=== PATIENT | female | born 1955 | race Caucasian/White ===

== ENCOUNTER 2016-09-08 20:58 | Inpatient (IN) | payer BC ==
[2016-09-08] MEDS ORDERED: HYDROmorphone 1 MG/ML 1 ML SYRINGE IM STA (22:20)
--- NOTE | 2016-09-08 22:56 | XR ---
EXAMINATION TYPE: XR femur RT DATE OF EXAM: 09/08/2016 10:49 PM COMPARISON: NONE HISTORYPatient felt a pop while standing today TECHNIQUE: 6 views of right femur were obtained. FINDINGS: There is evidence of acute comminuted slightly displaced fracture of distal one third porti on of right tibia with medial angulation of distal fracture fragment and slight anterior displacement of distal fracture fragment. Surrounding soft tissue swelling is noted. IMPRESSION: Acute displaced comminuted fracture of distal one third shaft of the right femur.
--- NOTE | 2016-09-08 22:58 | XR ---
EXAMINATION TYPE: XR knee complete RT DATE OF EXAM: 09/08/2016 10:50 PM COMPARISON: NONE HISTORY: felt a "pop" while standing today. TECHNIQUE: 3 radiographs of right knee were obtained. FINDINGS: There is evidence of an acute slightly displaced comminuted fracture of distal one third sh aft of right femur. Right knee appears intact. Mild degenerative arthritic changes are present in the right kidney with a small osteophytes in the medial compartment. Soft tissues appear unremarkable. IMPRESSION: 1. Acute comminuted slightly displaced fracture of distal one third shaft of right femur. 2. No acute fracture is noted in the right knee.
--- NOTE | 2016-09-08 23:01 | XR ---
EXAMINATION TYPE: XR chest 1V DATE OF EXAM: 09/08/2016 10:50 PM COMPARISON: 04/19/2016 HISTORY: Preoperative, fracture femur. TECHNIQUE: Single frontal view of the chest is obtained. FINDINGS: Chronic lung changes are suggested with prominent bronchovascular markings. There is no focal air space opacity, pleural effusion, or pneumothorax seen. The cardiac silhouette size is within normal limits. The osseous structures are intact. IMPRESSION: 1. No acute cardiopulmonary disease. 2. Chronic lung changes. 3. No significant interval change.
[2016-09-08] MEDS ORDERED: HYDROmorphone 1 MG/ML 1 ML SYRINGE IVP STA (23:11)
--- NOTE | 2016-09-08 23:17 | ED ---
General Adult HPI - General Source: patient, family, RN notes reviewed Mode of arrival: wheelchair <Adryan Charlton - Last Filed: 09/08/16 23:20> <Esther Alvarez - Last Filed: 09/08/16 23:55> <Jw Patel - Last Filed: 09/09/16 00:45> - General Chief complaint: Extremity Problem,Nontraumatic Stated complaint: R Knee Injury - History of Present Illness Initial comments: Chief complaint history of present illness a 60-year-old female here with complaint of pain to her right knee and distal right femur. Patient reports that she was standing using her walker all of a sudden she got acute discomfort to her right knee area. She presents with significant swelling to the distal femur area. Patient did not fall because she was still using a walker. She reports she did nothing but just gently turn and then she developed the severe pain. (Adryan Charlton) - Related Data Home Medications Medication Instructions Recorded Confirmed Lisinopril 40 mg PO DAILY 01/22/15 08/31/16 Albuterol Inhaler [Ventolin Hfa 1 - 2 puff INHALATION RT-Q6H PRN 07/15/16 Inhaler] amLODIPine [Norvasc] 10 mg PO DAILY 07/15/16 08/31/16 Albuterol Nebulized [Ventolin 2.5 mg INHALATION RT-Q6H PRN 08/31/16 08/31/16 Nebulized] Atorvastatin [Lipitor] 20 mg PO HS 08/31/16 08/31/16 Gabapentin [Neurontin] 800 mg PO QID 08/31/16 08/31/16 Hydrocodone/Acetaminophen [[place] 1 tab PO Q6H PRN 08/31/16 08/31/16 5-325] Previous Rx's Medication Instructions Recorded HYDROcodone/APAP 5-325MG [[place] 1 tab PO Q6HR #7 tab 08/31/16 5-325] Allergies Allergy/AdvReac Type Severity Reaction Status Date / Time No Known Allergies Allergy Verified 09/08/16 21:12 Review of Systems ROS Other: All systems not noted in ROS Statement are negative. <Adryan Charlton - Last Filed: 09/08/16 23:20> ROS Other: All systems not noted in ROS Statement are negative. <Esther Alvarez - Last Filed: 09/08/16 23:55> ROS Other: All systems not noted in ROS Statement are negative. <Jw Patel - Last Filed: 09/09/16 00:45> ROS Statement: Those systems with pertinent positive or pertinent negative responses have been documented in the HPI. Review of systems no headache or visual acuity changes no chest pain or shortness of breath other than chronic obstructive pulmonary disorder. No abdominal pain no nausea no vomiting no neuro deficits. She has pain swelling right knee. Recently the patient was seen by an orthopedic surgeon who injected her right knee told her she had meniscus pain. She reports she was complaining of pain from her mid thigh down to her mid right calf area. Examination by the orthopod at that time revealed meniscus pathology , he administered a steroid shot yesterday in office. The patient still having pain in the knee. All systems are reviewed. Past medical problems hypertension, COPD and TIA. Surgeries include back fusion L5-S1. She also had an appendectomy, tonsillectomy cholecystectomy. The patient's family history significant other had prostate cancer mother had liver cancer. Patient denies any ALLERGIES. He does smoke strongly encouraged to stop. Denies alcohol use (Adryan Charlton) Past Medical History Past Medical History: COPD, CVA/TIA, GERD/Reflux, Hypertension, Osteoarthritis ( OA), Seizure Disorder Additional Past Medical History / Comment(s): bronchitis, pancreatitis, past anemia unknown cause, gastric ulcer, last seizure 1997, generalized arthritis History of Any Multi-Drug Resistant Organisms: None Reported Past Surgical History: Appendectomy, Back Surgery, Orthopedic Surgery, Tonsillectomy Additional Past Surgical History / Comment(s): 6 back surgeries with 2 fusions, R oophorectomy due to ectopic , EGD/colonoscopy, Past Anesthesia/Blood Transfusion Reactions: No Reported Reaction Additional Past Anesthesia/Blood Transfusion Reaction / Comment(s): Pt has received blood in past without reaction. Past Psychological History: No Psychological Hx Reported Additional Psychological History / Comment(s): Pt resides with her spouse. She is independent. Smoking Status: Current every day smoker Past Alcohol Use History: None Reported Additional Past Alcohol Use History / Comment(s): Pt states she started smoking at age 30 yrs and smokes between 1/2-1 PPD. Past Drug Use History: None Reported - Past Family History Father Family Medical History: Cancer, Liver Disease Additional Family Medical History / Comment(s): Father was an alcoholic. He in his 40's from liver cancer Mother Family Medical History: Cancer, CVA/TIA, Hypertension Additional Family Medical History / Comment(s): Mother had breast and colon cancer. She of liver cancer at the age of 77 yrs. <Adryan Charlton - Last Filed: 09/08/16 23:20> General Exam <Adryan Charlton - Last Filed: 09/08/16 23:20> <Esther Alvarez - Last Filed: 09/08/16 23:55> <Jw Patel - Last Filed: 09/09/16 00:45> - General Exam Comments Initial Comments: General: The patient is awake and alert, moderate distress because of pain and swelling to the distal right femur. Complains of pain to her knee. No pain in her hip. Vital signs vital signs show temperature 100.0. Pulse 96 respiratory rate 18 pressure 149/76. Pulse ox on percent room air. Eye: Pupils are equal, extra-ocular movements are intact; there is normal conjunctiva bilaterally. No signs of icterus. Ears, nose, mouth and throat: There are moist mucous membranes Neck: The neck is supple, there is no tenderness Cardiovascular: There is a regular rate and rhythm. No murmur, rub or gallop is appreciated. Respiratory: Lungs are clear to auscultation, respirations are non-labored, breath sounds are equal. No wheezes, stridor, rales, or rhonchi. Gastrointestinal: Soft, non-distended, non-tender abdomen without masses or organomegaly noted. There is no rebound or guarding present. No CVA tenderness. Bowel sounds are unremarkable. Back: There is no tenderness to palpation in the midline. There is no obvious deformity. Musculoskeletal: Patient has pain distal right femur. Neurovascular status of present intact. Knee tender because she just got a shot of steroids yesterday. Neurological: No evidence of a neuro deficits. Skin: Skin is warm and dry and no rashes or lesions are noted. (Adryan Charlton) Procedures - Orthopedic Splinting/Casting Injury #1 Side: right Lower Extremity Injury Location: upper leg Lower Extremity Immobilizer: posterior splint (long leg) <Esther Alvarez - Last Filed: 09/08/16 23:55> Medical Decision Making <Adryan Charlton - Last Filed: 09/08/16 23:20> <Esther Alvarez - Last Filed: 09/08/16 23:55> - Lab Data Result diagrams: 09/08/16 23:55 09/08/16 23:55 <Jw Patel - Last Filed: 09/09/16 00:45> - Medical Decision Making The patient will have a long leg cast applied from toes to her buttocks. Her sweat pants were cut up the inside seam. Patient will have a long leg OCL splint applied once her pain medication has become effective.. (Adryan Charlton) I spoke with Dr. Leyva and he wanted the patient admitted to his service if it was not a pathologic fracture and according to the CAT scan it does not appear to be a pathologic fracture of the femur. (Jw Patel) - Lab Data Lab Results 09/08/16 09/08/16 Range/Units 23:55 23:55 WBC 13.9 H (3.8-10.6) k/uL RBC 5.05 (3.80-5.40) m/uL Hgb 14.3 (11.4-16.0) gm/dL Hct 46.6 H (34.0-46.0) % MCV 92.4 (80.0-100.0) fL MCH 28.3 (25.0-35.0) pg MCHC 30.7 L (31.0-37.0) g/dL RDW 13.1 (11.5-15.5) % Plt Count 419 (150-450) k/uL Neutrophils % 83 % Lymphocytes % 10 % Monocytes % 5 % Eosinophils % 1 % Basophils % 0 % Neutrophils # 11.5 H (1.3-7.7) k/uL Lymphocytes # 1.5 (1.0-4.8) k/uL Monocytes # 0.7 (0-1.0) k/uL Eosinophils # 0.1 (0-0.7) k/uL Basophils # 0.0 (0-0.2) k/uL Sodium 140 (137-145) mmol/L Potassium 4.6 (3.5-5.1) mmol/L Chloride 108 H (98-107) mmol/L Carbon Dioxide 17 L (22-30) mmol/L Anion Gap 15 mmol/L BUN 30 H (7-17) mg/dL Creatinine 1.20 H (0.52-1.04) mg/dL Est GFR (MDRD) Af Amer 56 (>60 ml/min/1.73 sqM) Est GFR (MDRD) Non-Af 46 (>60 ml/min/1.73 sqM) Glucose 118 H (74-99) mg/dL Calcium 10.3 H (8.4-10.2) mg/dL Total Bilirubin 0.4 (0.2-1.3) mg/dL AST 18 (14-36) U/L ALT 32 (9-52) U/L Alkaline Phosphatase 94 (38-126) U/L Total Protein 7.9 (6.3-8.2) g/dL Albumin 4.7 (3.5-5.0) g/dL Disposition <Adryan Charlton - Last Filed: 09/08/16 23:20> <Esther Alvarez - Last Filed: 09/08/16 23:55> Time of Disposition: 00:45 <Jw Patel - Last Filed: 09/09/16 00:45> Clinical Impression: Femoral shaft fracture Disposition: ADMITTED IP TO THIS HOSP
[2016-09-08] MEDS: SODIUM CHLORIDE 0.9% 1,000 ML IV SCH (23:33)
[2016-09-09 00:11] LABS: Basophils % (A) 0 %; CH 29.8; CHCM 32.5; Eosinophils # (A) 0.1 k/uL (0-0.7); Eosinophils % (A) 1 %; HCT 46.6 % (34.0-46.0); HDW 2.45; HGB 14.3 gm/dL (11.4-16.0); Luc # (Auto) 0.13; Luc % (Auto) 1; Lymphocytes # (A) 1.5 k/uL (1.0-4.8); Lymphocytes % (A) 10 %; MCH 28.3 pg (25.0-35.0); MCHC 30.7 g/dL (31.0-37.0); MCV 92.4 fL (80.0-100.0); Mean Platelet Volume 7.4; Monocytes # (A) 0.7 k/uL (0-1.0); Monocytes % (A) 5 %; Neutrophils # (A) 11.5 k/uL (1.3-7.7); Neutrophils % (A) 83 %; RBC 5.05 m/uL (3.80-5.40); RDW 13.1 % (11.5-15.5); WBC 13.9 k/uL (3.8-10.6)
[2016-09-09 00:34] LABS: Calcium 10.3 mg/dL (8.4-10.2); Potassium 4.6 mmol/L (3.5-5.1); Total Bilirubin 0.4 mg/dL (0.2-1.3); Total Protein 7.9 g/dL (6.3-8.2)
--- NOTE | 2016-09-09 00:39 | CT ---
EXAMINATION TYPE: CT femur RT wo con DATE OF EXAM: 09/09/2016 12:23 AM COMPARISON: Right femur x-rays of 09/08/2016. HISTORY: evaluate known right femur fx CT DLP: 811.40 mGycm Automated exposure control for dose reduction was used. FINDINGS: There is evidence of a comminuted slightly displaced fracture of distal one third portion of right fe mur with mild medial displacement of distal fracture fragment and mild posterior angulation of distal fracture fragment. The fracture site showed multiple small fracture fragments with somewhat haziness and there is possib ility of mild callus formation in this area and this fracture could also be related to few days old f racture. No significant osteolytic or osteoblastic processes noted in this area to represent metastat ic pathological fracture. This fracture does not appear as a insufficiency or stress fracture. There is most likely normal cortical bone thickening for patient's age in this area. The surrounding soft tissues showed post traumatic changes in the muscular tissues without significan t hematoma collection. Subcutaneous edema is suggested surrounding the fracture site. Rest of the visualized right femur and visualized proximal tibia and fibula appear intact. Visualized right hip joint showed irregularity in the anterior lip of the acetabulum as seen in the a xial image 25 and is probably related to old fracture changes or ossicle. Mild degenerative osteophyt ic changes are noted in the right hip joint. Visualized right sacroiliac joints showed mild degenerative arthritic changes. Superior and inferior primary of right pubic bone and right ischium appears intact. IMPRESSION: 1. EVIDENCE OF COMMINUTED SLIGHTLY DISPLACED FRACTURE OF DISTAL RIGHT FEMUR. THIS FRACTURE COULD BE F EW DAYS OLD FRACTURE WITH POSSIBLE SMALL AMOUNT OF CALLUS FORMATION. SMALL FRACTURE FRAGMENTS ARE NOT ED AT THE FRACTURE SITE. IT IS LESS LIKELY TO REPRESENT PATHOLOGICAL FRACTURE OR STRESS OR INSUFFICIE NCY FRACTURE. A CLINICAL CORRELATION IS RECOMMENDED..
[2016-09-09] MEDS ORDERED: SODIUM CHLORIDE 0.9% 1,000 ML IV ONE (00:45)
[2016-09-09] MEDS ORDERED: ONDANSETRON 4 MG/2 ML VIAL IVP PRN ×2 (00:47→14:26)
[2016-09-09] MEDS ORDERED: HYDROmorphone 1 MG/ML 1 ML SYRINGE IVP PRN (00:47)
[2016-09-09 02:29] VITALS: BMI 23.5
[2016-09-09] MEDS: HYDROmorphone 2 MG/ML 1 ML SYRINGE IVP PRN ×7 (04:12→22:01)
[2016-09-09] MEDS: SODIUM CHLORIDE 0.9% 1,000 ML IV SCH (04:18)
--- NOTE | 2016-09-09 07:51 | P.HPOR ---
<Jocelin Garcia - Last Filed: 09/09/16 07:51> History of Present Illness H&P Date: 09/09/16 Chief Complaint: Right femur fracture This is a pleasant 6-year-old female who is admitted with right femur fracture. The patient states that she was using her walker yesterday and went to pivot on her right leg and felt and heard a pop in her right upper leg. She caught herself on her walker. She had severe pain in her right thigh and presented to the emergency department [facility]. She is found to have fracture of her distal femur and subsequently was admitted to our service for surgical intervention and care. The patient was seen and evaluated at bedside this morning. She complains of pain at the area for fracture. She complains of some radiating pain down the leg as well. She states that she typically walks without a walker. However, she had a fall a couple months ago on the ice and was having some knee pain since that time. She has since been using a cane or a walker for the last [address] Berger on and did have a cortisone injection in the knee at that time. She currently denies any nausea, vomiting, shortness of breath, chest pain, abdominal pain. She denies syncope or head trauma. She states that she does have history of stroke but denies any residual weakness. She is not currently on any blood thinners. She is not diabetic. She does smoke. Review of Systems See HPI Past Medical History Past Medical History: COPD, CVA/TIA, GERD/Reflux, Hypertension, Osteoarthritis ( OA) Additional Past Medical History / Comment(s): bronchitis, pancreatitis, past anemia unknown cause, gastric ulcer, generalized arthritis,patient denies ever having a seizure History of Any Multi-Drug Resistant Organisms: None Reported Past Surgical History: Appendectomy, Back Surgery, Orthopedic Surgery, Tonsillectomy Additional Past Surgical History / Comment(s): 6 back surgeries with 2 fusions, Right oophorectomy due to ectopic , EGD/colonoscopy, Past Anesthesia/Blood Transfusion Reactions: No Reported Reaction Additional Past Anesthesia/Blood Transfusion Reaction / Comment(s): Pt has received blood in past without reaction. Past Psychological History: No Psychological Hx Reported Additional Psychological History / Comment(s): Pt resides with her spouse. She is independent. Smoking Status: Current every day smoker Past Alcohol Use History: None Reported Additional Past Alcohol Use History / Comment(s): smokes 5-6 cigarettes per day Past Drug Use History: None Reported - Past Family History Father Family Medical History: Cancer, Liver Disease Additional Family Medical History / Comment(s): from liver cancer Mother Family Medical History: Cancer, CVA/TIA, Hypertension Additional Family Medical History / Comment(s): Mother had breast and colon cancer. She of liver cancer at the age of 77 yrs. Medications and Allergies Home Medications Medication Instructions Recorded Confirmed Type Lisinopril 40 mg PO DAILY 01/22/15 08/31/16 History Albuterol Inhaler [Ventolin Hfa 1 - 2 puff INHALATION RT-Q6H PRN 07/15/16 History Inhaler] amLODIPine [Norvasc] 10 mg PO DAILY 07/15/16 08/31/16 History Albuterol Nebulized [Ventolin 2.5 mg INHALATION RT-Q6H PRN 08/31/16 08/31/16 History Nebulized] Atorvastatin [Lipitor] 20 mg PO HS 08/31/16 08/31/16 History Gabapentin [Neurontin] 800 mg PO QID 08/31/16 08/31/16 History Hydrocodone/Acetaminophen [[place] 7.5 tab PO Q6H PRN 08/31/16 08/31/16 History 5-325] Allergies Allergy/AdvReac Type Severity Reaction Status Date / Time No Known Allergies Allergy Verified 09/08/16 21:12 Physical Examination The patient is seen and evaluated at bedside. She is not appear in acute distress. She is alert and orientated 3. She is pleasant and answers questions appropriately. Head normocephalic atraumatic Neck is supple Breathing appears nonlabored She moves her upper extremities freely without any difficulty or pain Upon examination of her lower extremities long posterior splint is intact her right lower extremity. She has pain to palpation about her distal thigh and knee. Compartments are soft. Her toes are pink and warm. Capillary refill is brisk. Sensation is intact to her toes. Dorsalis P his pulse 2+ out of 4+. She denies any pain to palpation about her left lower extremity. She moves her left lower extremity freely without any difficulty or pain. Results X-rays obtained of the patient's right femur reveal acute comminuted displaced fracture the distal one third portion of the right femur. Right femur CT was obtained as well revealing evidence of comminuted slightly displaced fracture of the distal right femur. Radiologist impression rates his fracture could be a few days old with possible small amount of callus formation. Small fracture fragments are noted at the fracture site. It's less likely to represent pathologic fracture or stress or insufficiency fracture. Clinical correlation is recommended. - Labs Result Diagrams: 09/08/16 23:55 09/08/16 23:55 Assessment and Plan (1) Femoral shaft fracture Status: Acute Plan: I discussed the clinical and x-ray findings with the patient at bedside today. I discussed nonoperative versus operative treatment. Orthopedics recommends surgical intervention. I discussed possible risks and complications associated with the surgery. <Landry Leyva - Last Filed: 09/09/16 08:18> Results - Labs Result Diagrams: 09/08/16 23:55 09/08/16 23:55 Assessment and Plan Plan: I agree with the above history and physical. Briefly, the patient is a 60-year- old female with a medical history significant for smoking up to 1 pack of cigarettes a day, COPD, stroke, and recent falls. The patient states that 2 months ago she slipped and fell and has had worsening knee, thigh, and leg pain ever since. She has seen another orthopedic surgeon in [place] recently injected her right knee. Due to the pain the patient has been using a walker to ambulate. Yesterday she pivoted while in the kitchen and felt a snap in her right thigh. She was unable to walk. She was brought to the emergency department here at [facility] and x-rays showed a distal third femur fracture. She was admitted to the floor. This morning she is complaining of isolated right thigh pain. She denies a history of cancer. She says she is currently smoking 6-7 cigarettes a day. On exam her right thigh is soft and compressible. There are no open wounds. She does not have an appreciable knee effusion. Distally her right foot is neurovascularly intact. X-rays show a displaced distal third femur fracture. Both x-rays and computed tomography scan do not show any type of pathologic lesion suggestive of primary or metastatic cancer. I do lengthy discussion with Mrs. Jenkins regarding treatment. We discussed that her history and x-ray findings are suggestive of a prior incomplete stress fracture that she completed yesterday. We also discussed the possibility of this being a pathologic fracture through a malignant lesion although I do not see any signs of this on x-ray or CT. Due to the fracture being in the distal third of the femur my recommendation was to perform a retrograde femoral nail. We had a lengthy discussion on treatment and potential complications. Potential complications discussed include risk of anesthesia, risk of delayed wound healing, risk of infection, risk of intraoperative fracture, risk of postoperative knee pain, risk of symptomatically hardware, risk of fracture malunion, risk of fracture nonunion, risk of malrotation of the leg, risk of difficulty walking, risk of inability to walk, risk of need for further surgery , risk of postoperative periprosthetic fracture, and possible postoperative medical problems including DVT, PE, acute coronary event, stroke, pneumonia, urinary tract and infection, anemia requiring transfusion, and possibly . The patient understands these risks and understands that there are other less common risks. She also understands that she is a slightly higher risk of having a complication due to her history of smoking. She would like to go forward with surgery and provided both her verbal and written consent. All of her questions were answered.
[2016-09-09 09:21] LABS: Partial Thromboplastin Time 23.9 sec (22.0-30.0); Prothrombin Time 10.2 sec (9.0-12.0)
--- NOTE | 2016-09-09 11:55 | P.CONS ---
History of Present Illness - Reason for Consult Consult date: 09/09/16 Medical clearance Requesting physician: Landry Leyva - Chief Complaint Right thigh pain - History of Present Illness This is a 60-year-old female with past medical history noted below who presented to the emergency room yesterday with severe right lower extremity pain. Patient said that she was at home using her walker and she twisted trying to grab something and all of a sudden she heard a loud pop and subsequently she was in severe pain in her right lower extremity. She was unable to stand up. She called her who brought her to the emergency room. Apparently, patient had a fall approximately 3 weeks ago after she slid on ice and was having right knee pain at that time She was evaluated in the emergency room and x-ray of the knee showed no acute fractures. Since then, patient is been using a walker to ambulate but her pain was tolerable up until yesterday. She presented to the emergency room yesterday and was found to have a slightly displaced fracture of the distal femoral and is currently scheduled for OR. Patient herself denies any cardiac history. No history of coronary artery disease or myocardial infarction. She has a history of hypertension. She is not known to have diabetes or chronic kidney disease. She is able usually to walk around and climb 1 flight of stairs with no difficulty. She denies any shortness of breath or chest pain today. I was asked to see her for medical clearance. Review of Systems Review of system: 14 points review of systems were obtained and were negative except to what were mentioned in the HPI. Past Medical History Past Medical History: COPD, CVA/TIA, GERD/Reflux, Hypertension, Osteoarthritis ( OA) Additional Past Medical History / Comment(s): bronchitis, pancreatitis, past anemia unknown cause, gastric ulcer, generalized arthritis,patient denies ever having a seizure History of Any Multi-Drug Resistant Organisms: None Reported Past Surgical History: Appendectomy, Back Surgery, Orthopedic Surgery, Tonsillectomy Additional Past Surgical History / Comment(s): 6 back surgeries with 2 fusions, Right oophorectomy due to ectopic , EGD/colonoscopy, Past Anesthesia/Blood Transfusion Reactions: No Reported Reaction Additional Past Anesthesia/Blood Transfusion Reaction / Comm: Pt has received blood in past without reaction. Past Psychological History: No Psychological Hx Reported Additional Psychological History / Comment(s): Pt resides with her spouse. She is independent. Smoking Status: Current every day smoker Past Alcohol Use History: None Reported Additional Past Alcohol Use History / Comment(s): smokes 5-6 cigarettes per day Past Drug Use History: None Reported - Past Family History Father Family Medical History: Cancer, Liver Disease Additional Family Medical History / Comment(s): from liver cancer Mother Family Medical History: Cancer, CVA/TIA, Hypertension Additional Family Medical History / Comment(s): Mother had breast and colon cancer. She of liver cancer at the age of 77 yrs. Medications and Allergies Home Medications Medication Instructions Recorded Confirmed Type Lisinopril 40 mg PO DAILY 01/22/15 09/09/16 History Albuterol Inhaler [Ventolin Hfa 1 - 2 puff INHALATION RT-Q6H PRN 07/15/16 History Inhaler] amLODIPine [Norvasc] 10 mg PO DAILY 07/15/16 09/09/16 History Albuterol Nebulized [Ventolin 2.5 mg INHALATION RT-Q6H PRN 08/31/16 09/09/16 History Nebulized] Atorvastatin [Lipitor] 20 mg PO HS 08/31/16 09/09/16 History Gabapentin [Neurontin] 800 mg PO QID 08/31/16 09/09/16 History Aspirin 325 - 650 mg PO QID PRN 09/09/16 09/09/16 History Ibuprofen [Motrin] 800 mg PO Q8H PRN 09/09/16 09/09/16 History Allergies Allergy/AdvReac Type Severity Reaction Status Date / Time No Known Allergies Allergy Verified 09/09/16 10:59 Physical Exam Vitals: Vital Signs Temp Pulse Pulse Resp BP BP Pulse Ox 09/09/16 07:53 98.6 F 71 16 147/78 09/09/16 07:00 98.6 F 71 16 147/78 96 09/09/16 04:00 16 09/09/16 02:47 98.7 F 76 16 152/69 97 09/09/16 02:36 18 09/09/16 00:51 97.7 F 74 18 156/68 98 Intake and Output 09/08/16 09/09/16 09/09/16 22:59 06:59 14:59 Intake Total 300 Balance 300 Intake: IV 300 Sodium Chloride 0.9% 1, 300 000 ml @ 75 mls/hr IV . [id number] ONE Rx#:[id number] Other: Voiding Method Indwelling Catheter # Voids 1 Weight 68.039 kg General: The patient is awake and alert, in no distress, and does not appear acutely ill. Eye: extra-ocular movements are intact; there is normal conjunctiva bilaterally. . Neck: The neck is supple, there is no tenderness or JVD. Cardiovascular: Normal S1-S2, no S3-S4, no murmurs. Respiratory: Lungs clear to auscultation bilaterally with no wheezes rhonchi or rales. Gastrointestinal: Abdomen is soft, nontender, nondistended, with no organomegaly. . Musculoskeletal: There is no pedal edema. Neurological: There are no obvious motor or sensory deficits. Speech is normal. Skin: Skin is warm and dry and no rashes or lesions are noted. Results CBC & Chem 7: 09/08/16 23:55 09/08/16 23:55 Assessment and Plan Plan: This is 60-year-old female with a slightly displaced fracture of the distal right femoral who is scheduled for OR today. Patient is cleared for surgery medically. She is at an acceptable risk with low RCRI score. Twelve-lead EKG done today and reviewed by me showed normal sinus rhythm. 1. Fragility fracture with slightly displaced fracture of the right femur: Seen and evaluated by orthopedics. Plan for surgical repair today 2. DVT prophylaxis: with subcu heparin 3. Leukocytosis: Probably reactive with no evidence of infection. I would obtain a urinalysis for further evaluation. 4. 4. Essential hypertension: Blood pressure not well controlled today. We will resume home medication 5. Highly suspected osteoporosis: Needs further evaluation and possibly treatment as an outpatient I advised the patient to start calcium and vitamin D supplement. Follow up with primary care physician after recovery for further evaluation of underlying osteoporosis.
[2016-09-09] MEDS ORDERED: ALBUTEROL NEBULIZED 2.5 MG/3 ML INHALATION PRN (11:56)
[2016-09-09] MEDS ORDERED: HYDROmorphone (PF) 1 MG/ML ONE (12:22)
[2016-09-09] MEDS ORDERED: SODIUM CHLORIDE 0.9% 50 ML with ceFAZolin 2,000 MG IV ONE ×2 (12:22)
[2016-09-09] MEDS ORDERED: IV FLUID CONTINUATION 950 ML IV ONE (12:22)
[2016-09-09] MEDS ORDERED: fentaNYL (PF) 50 MCG/ML 2 ML AMP ONE (12:22)
[2016-09-09] MEDS ORDERED: GLYCOPYRROLATE 0.2 MG/ML 2 ML VIAL ONE (12:22)
[2016-09-09] MEDS ORDERED: LIDOCAINE 1% INJ 10MG/ML (20 ML MDV) ONE (12:22)
[2016-09-09] MEDS ORDERED: MIDAZOLAM 2 MG/2 ML VIAL ONE (12:22)
[2016-09-09] MEDS ORDERED: SUCCINYLCHOLINE CHLORIDE 100 MG/5 ML SYR IV ONE (12:22)
[2016-09-09] MEDS ORDERED: PROPOFOL 10 MG/ML 20 ML VIAL IV ONE (12:22)
[2016-09-09] MEDS ORDERED: SODIUM CHLORIDE 0.9% 1,000 ML BAG ONE (12:22)
[2016-09-09] MEDS ORDERED: ONDANSETRON 4 MG/2 ML VIAL ONE (12:22)
[2016-09-09] MEDS ORDERED: ceFAZolin 1,000 MG VIAL ONE (12:22)
[2016-09-09] MEDS ORDERED: ceFAZolin 1,000 MG/50 ML BAG (PMX) ONE (12:22)
[2016-09-09] MEDS ORDERED: ROCURONIUM BROMIDE 10 MG/ML 10 ML VIAL IV ONE (12:22)
[2016-09-09] MEDS ORDERED: NEOSTIGMINE 1 MG/ML 10 ML VIAL ONE (12:22)
[2016-09-09] MEDS ORDERED: SODIUM CHLORIDE 0.9% 50 ML BAG ONE (12:22)
[2016-09-09] MEDS ORDERED: ceFAZolin 1,000 MG in SODIUM CHLORIDE 0.9% 1,000 ML IRRIGATION ONE (13:08)
[2016-09-09] MEDS ORDERED: HYDROmorphone 1 MG/ML 1 ML SYRINGE IVP ONE ×3 (14:10→14:40)
--- NOTE | 2016-09-09 14:17 | FL ---
EXAMINATION TYPE: FL guidance operating room, XR femur RT DATE OF EXAM: 09/09/2016 2:05 PM CLINICAL HISTORY: Right femur fracture. TECHNIQUE: Fluoroscopy. Intraoperative limited views right femur. COMPARISON: Right femur x-ray from yesterday FINDINGS: Fluoroscopic guidance was provided during open reduction internal fixation procedure perfo rmed by Dr. Leyva. A total of 3 minutes 11 seconds of fluoroscopic time was utilized during the p rocedure and 10 spot intraoperative images are acquired or saved to PACS system. Images acquired show intramedullary access with placement of large alice with single transverse proxima l fixating screw and 2 distal transverse fixating screws through comminuted fracture distal diaphysi s of right femur. IMPRESSION: As Above.
[2016-09-09] MEDS ORDERED: MEPERIDINE 50 MG/ML SYRINGE IVP ONE ×2 (14:25→14:30)
[2016-09-09] MEDS ORDERED: MAGNESIUM HYDROXIDE 2,400 MG/10 ML CUP PO PRN (14:26)
[2016-09-09] MEDS ORDERED: NALOXONE 0.4 MG/ML 1 ML VIAL IV PRN (14:26)
--- NOTE | 2016-09-09 14:26 | P.OP ---
Date of Procedure: 09/09/16 Preoperative Diagnosis: 1. Closed, right distal third femur fracture 2. Cigarette smoking 3. COPD Postoperative Diagnosis: 1. Closed, right distal third femur fracture 2. Cigarette smoking 3. COPD Procedure(s) Performed: Right retrograde intramedullary femoral nail Implants: Synthes retrograde femoral nail Anesthesia: ANNE Surgeon: Landry Leyva Estimated Blood Loss (ml): 50 IV fluids (ml): 800 Urine output (ml): 100 Pathology: other (Reamings sent for pathology) Condition: stable Disposition: PACU Indications for Procedure: The patient is a 60-year-old female with a medical history significant for cigarette smoking up to 1 pack a day in the past currently smoking 7 cigarettes a day and COPD who is admitted with a closed right distal femur fracture. 2 months ago the patient sustained a low-energy fall and has had intermittent and progressively worsening right thigh, knee, and leg pain. It got to the point he was only able to ambulate with a walker. She has been seeing an orthopedic surgeon in [place] and was most recently seen this past at which point she had a right intra-articular knee injection. Yesterday the patient was in her kitchen when she pivoted and felt a snap in her right leg. She was unable to walk and was brought to the emergency department where x-rays showed a displaced distal third femur fracture. In addition to x-rays a computed tomography scan was obtained to rule out a pathologic fracture. The x- rays and computed tomography scan did not show any evidence of tumor. I saw the patient preoperatively and discussed treatment. My recommendation was to perform a retrograde femoral nail due to the fracture being in the distal third of the diaphysis. We discussed the potential risks and complications of surgery including but not limited to risk of anesthesia, risk of superficial infection, risk of deep infection, risk of damage to local blood vessels or nerves, risk of fracture nonunion, risk of fracture malunion, risk of malrotation of the leg, risk of DVT is disturbing's, risk of intraoperative fracture, risk of postoperative periprosthetic fracture, risk of anterior knee pain, risk of septic arthritis, risk of compartment syndrome, risk of damage to local nerves resulting in temporary or permanent numbness, risk of damage to blood vessels, risk of medical conditions postoperatively including DVT, PE, acute coronary event, stroke, pneumonia, urinary tract infection, blood loss anemia requiring transfusion, acute renal failure, exacerbation of COPD and possibly loss of limb or life. The patient understands that these are the most common complications following surgery but there are other less common complications possible. She also understands that due to her history of cigarette smoking she is at a higher risk of having a wound infection or nonunion of her fracture site. She provided both verbal and written consent to go forward with surgery Description of Procedure: The patient was identified in preoperative holding and the correct right leg was marked with my initials. I reviewed the consent form with the patient and answered all of her questions. She was then brought back to the operating room by anesthesia. A general anesthetic was administered while she was still on the gurney and then she was carefully transferred onto a radiolucent diving board type OR table. Preoperative antibiotics were administered. The left leg was secured to the OR table with foam and tape. A bump was placed under her right buttock internally rotating the right leg. The right arm was carefully draped across the body. The right leg was then prepped and draped in the standard sterile fashion from the iliac crest to the ankle. Prior to starting surgery timeout was performed identifying the correct patient, operative extremity, and procedure. I began by outlining a longitudinal incision centered over the distal patella and patellar tendon. Skin incision was made with a 10 blade scalpel and dissection was carried down carefully to the peritenon which was identified and incised longitudinally in line with the skin incision. The patellar tendon was then split sharply with a scalpel through the middle third. A small amount of the retropatellar fat pad was excised. Due to the patient having had a recent steroid injection the knee was copiously irrigated. A guidewire was then used to obtain a start site on the distal femur. On the AP view the guidewire was centered between the femoral condyles and was in line with the distal femur fragment. On the lateral view the wire was placed at the apex of Blumeensat's line and centered with the shaft of the femur. The wire was then driven into the distal fragment and its position was once again verified using fluoroscopy in both the AP and lateral planes. Using a soft tissue protector a cannulated opening reamer was used to create an opening in the distal femur for the nail. The tissue protector was used to prevent inadvertent damage to the patellofemoral joint. The opening reamer, soft tissue protector, and guidewire were removed. A long ball-tipped guidewire was then dispensed and the tip was bent to help facilitate passage past the fracture. Using a T-handled merna the ball-tipped guidewire was advanced up to the fracture. Using a mallet the fracture was reduced and the guidewire was passed proximally into the proximal shaft. The ball-tipped guidewire was passed proximally until it was proximal to the lesser trochanter. C-arm verified that the ball-tipped guidewire was in the femur on all views. We then measured the nail to 380 mm in length. We then began sequentially reaming starting with an 8 mm reamer. We sequentially reamed in 1 mm increments until the 11 mm reamer developed chatter at the isthmus. We then continued to ream and 0.5 mm increments up to a 12.5 mm reamer. After the 12.5 mm reamer was removed the reamings were sent to pathology. I elected to use an 11 mm nail. A 380 millimeter length and 11 mm diameter nail was then dispensed. The targeting arm was applied and I verified that the trochars lined up with the distal interlocking screws. The nail was then carefully inserted over the guidewire. C-arm was brought to the level of the fracture site and the nail was gently passed across the fracture and seated proximally. After the nail was fully seated the fracture appeared to be nicely reduced. The ball-tipped K wire was then removed and 2 distal interlocking screws were placed using the targeting arm. There is a small amount of distraction at the fracture site so the nail was impacted distally closing down the distraction at the fracture site. After the fracture site was impacted I assessed rotation of the limb. There did not appear to be any major malrotation of the right leg. The patella and foot pointed straight up toward the ceiling. C-arm was then brought proximally to place a proximal interlocking screw. The proximal aspect of the oblong hole was identified and a longitudinal incision was made in the skin. A hemostat was used to gently dissect down to the anterior cortex of the proximal femur. A drill bit was centered in the proximal aspect of the oblong hole and drilled bicortically. I measured the hole to be 32 mm. A 32 mm screw was then placed E centrically to the proximal aspect of the hole to allow compression at the fracture site. C- arm fluoroscopy was then used to assess position of the nail and fracture reduction. The fracture appeared to be reduced and well compressed. I did not notice any fractures proximally and the femoral neck. The targeting arm was then disassembled distally and a true lateral x-ray was taken showing the nail to be proximal to the joint surface. The knee joint itself was then copiously irrigated with sterile saline. The patellar tendon was closed with a running 0 Vicryl stitch. The subcutaneous tissues reapproximating using 2-0 Vicryl and the skin was closed using 3-0 nylon horizontal mattress stitches. The 2 stab incisions from the interlocking screw were irrigated and closed with 3-0 nylon horizontal mattress stitches. The proximal interlocking incision was irrigated and then closed in a layered fashion with 2-0 Vicryl in the deep subcu and 3-0 nylon horizontal mattress stitches in the skin. After all incisions were closer verified that all instrument sponge and sharp counts were correct. The leg was then cleansed and sterile dressings consisting of Adaptic 4 x 4 and medium Tegaderms were applied. The drapes were taken down and an Jonathan wrap was applied from the foot up to the hip. The patient was then transferred from the operating room table to the [facility] and brought to PACU having tolerated the procedure well. Plan: The patient is to be toe-touch weightbearing on her right side. She can begin gentle range of motion of her knee. She will need 24 hours of postoperative antibiotics. She'll be treated with Lovenox 40 mg daily for 4 weeks for DVT prophylaxis. We'll follow pathology of the reamings sent intraoperatively. Appreciate internal medicine's assistance with perioperative medical management. We'll check 25-hydroxy vitamin D level and start her on calcium and vitamin D.
[2016-09-09] MEDS: LACTATED RINGERS 1,000 ML IV ONE ×2 (14:36→14:52)
[2016-09-09] MEDS ORDERED: HYDROmorphone 2 MG/ML 1 ML SYRINGE IVP ONE (14:51)
--- NOTE | 2016-09-09 14:58 | XR ---
EXAMINATION TYPE: XR Femur RT 1 View DATE OF EXAM: 09/09/2016 2:51 PM CLINICAL HISTORY: Right femur fracture, status post open reduction internal fixation TECHNIQUE: Portable 2 frontal views of the right femur are obtained. COMPARISON: Right femur x-ray from yesterday FINDINGS: There is new large intramedullary alice with 2 transverse distal fixating screws through com minuted fractures distal diaphysis of right femur. Improved alignment is seen on these images with sl ight medial displacement of distal fracture fragment identified. Adjacent subcutaneous gas consistent with history of recent surgery is identified. Deering osseous structures are demineralized. IMPRESSION: There is improved alignment after open reduction internal fixation through comminuted fr acture distal diaphysis right femur.
[2016-09-09 15:56] LABS: Basophils % (A) 0 %; CH 29.9; Eosinophils # (A) 0.1 k/uL (0-0.7); Eosinophils % (A) 0 %; HCT 40.8 % (34.0-46.0); HDW 2.41; HGB 12.6 gm/dL (11.4-16.0); Luc # (Auto) 0.12; Luc % (Auto) 1; Lymphocytes % (A) 6 %; MCHC 30.9 g/dL (31.0-37.0); MCV 93.9 fL (80.0-100.0); Mean Platelet Volume 7.3; Monocytes % (A) 6 %; Neutrophils # (A) 14.5 k/uL (1.3-7.7); Neutrophils % (A) 87 %; RBC 4.35 m/uL (3.80-5.40); RDW 12.9 % (11.5-15.5); WBC 16.7 k/uL (3.8-10.6); WBC (Perox) 17.77
[2016-09-09] MEDS: HYDROcodone/APAP 5-325MG 1 EACH TAB PO PRN (16:17)
[2016-09-09] MEDS: DIAZEPAM 5 MG TAB PO PRN (16:17)
[2016-09-09] MEDS: amLODIPine 10 MG TAB PO SCH (16:17)
[2016-09-09] MEDS: CHOLECALCIFEROL 1,000 UNIT TAB PO SCH (16:18)
[2016-09-09] MEDS: GABAPENTIN 400 MG CAP PO SCH ×3 (16:18→22:20)
[2016-09-09] MEDS: CALCIUM CARBONATE 500 MG CHEWABLE PO SCH ×2 (16:47→22:20)
[2016-09-09] MEDS: ceFAZolin 2 GM in SODIUM CHLORIDE 0.9% 100 ML IVPB SCH (16:47)
[2016-09-09] MEDS: CALCIUM ACETATE 667 MG CAP PO SCH (16:47)
--- NOTE | 2016-09-09 17:16 | P.PN ---
Subjective Patient is doing well. She has moderate discomfort mostly in her right knee at the site of her surgery. Her pain is currently controlled. She denies chest pain or shortness of breath. Objective - Vital Signs Vital signs: Vital Signs Temp 97.8 F 09/09/16 14:05 Pulse 68 09/09/16 15:10 Resp 16 09/09/16 15:10 BP 159/73 09/09/16 15:10 Pulse Ox 99 09/09/16 15:10 Intake & Output 09/08/16 09/09/16 09/09/16 18:59 06:59 18:59 Intake Total 300 1050 Output Total 600 Balance 300 450 Weight 68.039 kg Intake: IV 300 1050 Sodium Chloride 0.9% 1, 300 000 ml @ 75 mls/hr IV . [id number] ONE Rx#:[id number] Output: Urine 550 Estimated Blood Loss 50 Other: Voiding Method Indwelling Catheter # Voids 1 - Exam The patient is in no apparent distress and is alert and oriented. Right lower extremity: Dressing is clean and dry with no saturated blood. Her thigh is soft. She hasn't icepack over the anterior aspect of the knee and is moderately tender over the anterior knee. Her calf is soft. Her foot is warm and well-perfused brisk capillary refill. Sensation is intact to light touch throughout the right foot. She can actively plantarflex and dorsiflex her toes. - Labs CBC & Chem 7: 09/09/16 15:40 09/08/16 23:55 Labs: Abnormal Lab Results - Last 24 Hours (Table) 09/09/16 Range/Units 15:40 WBC 16.7 H (3.8-10.6) k/uL MCHC 30.9 L (31.0-37.0) g/dL Neutrophils # 14.5 H (1.3-7.7) k/uL Assessment and Plan (1) Femoral shaft fracture Status: Acute Plan: Postoperative check status post right retrograde femoral nail for distal third femur fracture. 1. Toe-touch weightbearing right lower extremity. Can begin gentle knee range of motion. 2. 24 hours postoperative antibiotics 3. DVT prophylaxis with Lovenox 40 mg daily 4 weeks 4. Bone health with calcium carbonate 500 mg 3 times a day, vitamin D3 2000 units daily, and 25-hydroxy vitamin D level pending. 5. Appreciate internal medicine perioperative medical management. 6. Dressing change postoperative day #2 7. Follow pathology from intramedullary reamings 8. Discharge planning Time with Patient: Less than 30
[2016-09-09 20:50] LABS: Appearance,Urine Clear (Clear); Bilirubin,Urine Negative (Negative); Glucose,Urine (UA) Negative (Negative); Ketones,Urine Negative (Negative); Leukocyte Esterase,Urine Large (Negative); Mucus,Urine Rare /hpf; Nitrite,Urine Negative (Negative); PH, Urine 5.5 (5.0-8.0); Particle Count 1332; Protein,Urine Negative (Negative); RBC,Urine 80 /hpf (0-5); Specific Gravity,Urine 1.013 (1.001-1.035); UA Billing (MACRO vs. MICRO) MICRO; Urobilinogen,Urine <2.0 mg/dL (<2.0); WBC,Urine 55 /hpf (0-5)
[2016-09-09] MEDS: ATORVASTATIN 20 MG TAB PO SCH (22:06)
[2016-09-09] MEDS: SENNOSIDES-DOCUSATE SODIUM 1 EACH TAB PO SCH (22:06)
[2016-09-09] MEDS: HEPARIN SODIUM,PORCINE 5,000 UNIT/ML 1 ML VIAL SQ SCH (22:07)
[2016-09-10] MEDS: ceFAZolin 2 GM in SODIUM CHLORIDE 0.9% 100 ML IVPB SCH (00:35)
[2016-09-10] MEDS: HYDROcodone/APAP 5-325MG 1 EACH TAB PO PRN ×3 (00:35→12:59)
[2016-09-10] MEDS: HYDROmorphone 2 MG/ML 1 ML SYRINGE IVP PRN ×9 (01:17→23:36)
[2016-09-10] MEDS: SODIUM CHLORIDE 0.9% 1,000 ML IV SCH ×2 (03:59→17:45)
[2016-09-10] MEDS: DIAZEPAM 5 MG TAB PO PRN (04:36)
[2016-09-10] MEDS: HEPARIN SODIUM,PORCINE 5,000 UNIT/ML 1 ML VIAL SQ SCH ×2 (07:53→20:45)
[2016-09-10] MEDS: LISINOPRIL 20 MG TAB PO SCH (07:53)
[2016-09-10] MEDS: GABAPENTIN 400 MG CAP PO SCH ×4 (07:53→21:23)
[2016-09-10] MEDS: CHOLECALCIFEROL 1,000 UNIT TAB PO SCH (07:53)
[2016-09-10] MEDS: CALCIUM ACETATE 667 MG CAP PO SCH ×2 (07:53→18:00)
[2016-09-10] MEDS: CALCIUM CARBONATE 500 MG CHEWABLE PO SCH ×3 (07:53→21:23)
[2016-09-10] MEDS: amLODIPine 10 MG TAB PO SCH (07:54)
[2016-09-10 08:12] LABS: Anion Gap 5 mmol/L; Carbon Dioxide 24 mmol/L (22-30); Chloride 111 mmol/L (98-107); Glucose 222 mg/dL (74-99); Non-African American GFR(MDRD) >60 (>60 ml/min/1.73 sqM); Sodium 140 mmol/L (137-145)
[2016-09-10 08:17] LABS: Blood Urea Nitrogen 20 mg/dL (7-17); Potassium 4.6 mmol/L (3.5-5.1)
--- NOTE | 2016-09-10 10:54 | P.PN ---
Subjective Principal diagnosis: Right femur fracture This is a pleasant 60-year-old female who is status post retrograde femoral nailing for distal one third femur fracture. Today's postoperative day #1. The patient is seen and evaluated at bedside. She seated in the bedside chair. She complains of pain with movement. She otherwise appears fairly comfortable. She denies any shortness of breath or chest pain. She has no other new complaints at this time. Objective - Vital Signs Vital signs: Vital Signs Temp 97.0 F L 09/10/16 07:46 Pulse 78 09/10/16 07:46 Resp 16 09/10/16 07:46 BP 139/79 09/10/16 07:46 Pulse Ox 97 09/10/16 07:46 Intake & Output 09/09/16 09/10/16 09/10/16 18:59 06:59 18:59 Intake Total 1050 1825 360 Output Total 600 1000 Balance 450 825 360 Intake: IV 1050 825 Sodium Chloride 0.9% 1, 825 000 ml @ 75 mls/hr IV . [id number] ONE Rx#:[id number] Oral 1000 360 Output: Urine 550 1000 Uretheral (Negron) 1000 Estimated Blood Loss 50 Other: Voiding Method Indwelling Catheter Indwelling Catheter - Exam The patient does not appear in acute distress. Alert and orientated 3. Dressing is clean dry and intact. Incisions appears fine with no erythema or active drainage. Calf is soft and nontender. Good foot and ankle motion without difficulty. Sensation and circulatory status is intact. Dorsalis pedis pulse 2+ out of 4+. - Labs CBC & Chem 7: 09/09/16 15:40 09/10/16 07:10 Labs: Abnormal Lab Results - Last 24 Hours (Table) 09/09/16 09/09/16 09/09/16 Range/Units 15:40 15:40 20:30 WBC 16.7 H (3.8-10.6) k/uL MCHC 30.9 L (31.0-37.0) g/dL Neutrophils # 14.5 H (1.3-7.7) k/uL Chloride (98-107) mmol/L BUN (7-17) mg/dL Glucose (74-99) mg/dL Vitamin D 25-Hydroxy 11.5 L (30.0-100.0) ng/mL Urine Blood Large H (Negative) Ur Leukocyte Esterase Large H (Negative) Urine RBC 80 H (0-5) /hpf Urine WBC 55 H (0-5) /hpf Urine Mucus Rare H (None) /hpf 09/10/16 Range/Units 07:10 WBC (3.8-10.6) k/uL MCHC (31.0-37.0) g/dL Neutrophils # (1.3-7.7) k/uL Chloride 111 H (98-107) mmol/L BUN 20 H (7-17) mg/dL Glucose 222 H (74-99) mg/dL Vitamin D 25-Hydroxy (30.0-100.0) ng/mL Urine Blood (Negative) Ur Leukocyte Esterase (Negative) Urine RBC (0-5) /hpf Urine WBC (0-5) /hpf Urine Mucus (None) /hpf Microbiology - Last 24 Hours (Table) 09/09/16 20:30 Urine Culture - Preliminary Urine,Catheterized Assessment and Plan (1) Femoral shaft fracture Status: Acute Plan: Continue with routine postoperative care. Toe-touch weightbearing to the right lower extremity. She may begin gentle range of motion at the knee. DVT prophylaxis with Lovenox. Appreciate input from medicine.
[2016-09-10 10:59] LABS: Basophils % (A) 0 %; CH 29.7; CHCM 33.3; Eosinophils # (A) 0.1 k/uL (0-0.7); Eosinophils % (A) 1 %; HCT 35.1 % (34.0-46.0); HDW 2.53; HGB 11.6 gm/dL (11.4-16.0); Luc # (Auto) 0.12; Luc % (Auto) 1; Lymphocytes # (A) 1.4 k/uL (1.0-4.8); Lymphocytes % (A) 13 %; MCH 29.5 pg (25.0-35.0); MCV 89.4 fL (80.0-100.0); Mean Platelet Volume 8.2; Monocytes # (A) 0.7 k/uL (0-1.0); Monocytes % (A) 7 %; Neutrophils # (A) 8.2 k/uL (1.3-7.7); Neutrophils % (A) 78 %; RBC 3.92 m/uL (3.80-5.40); WBC 10.5 k/uL (3.8-10.6); WBC (Perox) 10.48
[2016-09-10] MEDS ORDERED: ERGOCALCIFEROL 50,000 UNIT CAP PO SCH (12:00)
[2016-09-10] MEDS: hydrOXYzine PAMOATE 25 MG CAP PO PRN ×2 (13:00→19:38)
[2016-09-10] MEDS ORDERED: HYDROcodone/APAP 7.5-325MG 1 EACH TAB PO PRN ×2 (13:56)
--- NOTE | 2016-09-10 14:15 | P.PN ---
Subjective patient is doing well today. Pain is relatively well-controlled. She is up in the chair. Objective - Vital Signs Vital signs: Vital Signs Temp 97.7 F 09/10/16 13:46 Pulse 77 09/10/16 13:46 Resp 18 09/10/16 13:46 BP 138/71 09/10/16 13:46 Pulse Ox 97 09/10/16 13:46 Intake & Output 09/09/16 09/10/16 09/10/16 18:59 06:59 18:59 Intake Total 1050 1825 960 Output Total 600 1000 1500 Balance 450 825 -540 Intake: IV 1050 825 Sodium Chloride 0.9% 1, 825 000 ml @ 75 mls/hr IV . [id number] ONE Rx#:[id number] Oral 1000 960 Output: Urine 550 1000 1500 Uretheral (Negron) 1000 1500 Estimated Blood Loss 50 Other: Voiding Method Indwelling Catheter Indwelling Catheter - Exam General: The patient is awake and alert, in no distress Eye: there is normal conjunctiva bilaterally. Neck: The neck is supple, there is no JVD. Cardiovascular: Normal S1-S2, no S3-S4, no murmurs. Respiratory: Lungs clear to auscultation bilaterally Gastrointestinal: Abdomen is soft, nontender Musculoskeletal: There is no pedal edema. Neurological:. Speech is normal. Skin: Skin is warm and dry - Labs CBC & Chem 7: 09/10/16 10:11 09/10/16 07:10 Labs: Abnormal Lab Results - Last 24 Hours (Table) 09/09/16 09/09/16 09/09/16 Range/Units 15:40 15:40 20:30 WBC 16.7 H (3.8-10.6) k/uL MCHC 30.9 L (31.0-37.0) g/dL Neutrophils # 14.5 H (1.3-7.7) k/uL Chloride (98-107) mmol/L BUN (7-17) mg/dL Glucose (74-99) mg/dL Vitamin D 25-Hydroxy 11.5 L (30.0-100.0) ng/mL Urine Blood Large H (Negative) Ur Leukocyte Esterase Large H (Negative) Urine RBC 80 H (0-5) /hpf Urine WBC 55 H (0-5) /hpf Urine Mucus Rare H (None) /hpf 09/10/16 09/10/16 Range/Units 07:10 10:11 WBC (3.8-10.6) k/uL MCHC (31.0-37.0) g/dL Neutrophils # 8.2 H (1.3-7.7) k/uL Chloride 111 H (98-107) mmol/L BUN 20 H (7-17) mg/dL Glucose 222 H (74-99) mg/dL Vitamin D 25-Hydroxy (30.0-100.0) ng/mL Urine Blood (Negative) Ur Leukocyte Esterase (Negative) Urine RBC (0-5) /hpf Urine WBC (0-5) /hpf Urine Mucus (None) /hpf Microbiology - Last 24 Hours (Table) 09/09/16 20:30 Urine Culture - Preliminary Urine,Catheterized Assessment and Plan Plan: 1. Fragility fracture with slightly displaced fracture of the right femur: Postoperative day #1 status post right retrograde intramedullary femoral nail. Orthopedic following closely. 2. DVT prophylaxis: with subcu heparin 3. Uncomplicated urinary tract infection: Started on IV ceftriaxone awaiting urine culture 4. Essential hypertension: Blood pressure not well controlled today. We will resume home medication 5. Highly suspected osteoporosis: Needs further evaluation and possibly treatment as an outpatient 6. Vitamin D deficiency: Started on supplement I advised the patient to start calcium and vitamin D supplements. Follow up with primary care physician after recovery for further evaluation of underlying osteoporosis.
[2016-09-10] MEDS: HYDROcodone/APAP 7.5-325MG 1 EACH TAB PO PRN (19:38)
[2016-09-10] MEDS: ATORVASTATIN 20 MG TAB PO SCH (20:45)
[2016-09-10] MEDS: SENNOSIDES-DOCUSATE SODIUM 1 EACH TAB PO SCH (20:45)
[2016-09-11] MEDS: HYDROmorphone 2 MG/ML 1 ML SYRINGE IVP PRN ×7 (03:07→20:12)
[2016-09-11] MEDS: SODIUM CHLORIDE 0.9% 1,000 ML IV SCH ×2 (03:08→16:47)
[2016-09-11] MEDS: HYDROcodone/APAP 7.5-325MG 1 EACH TAB PO PRN ×4 (04:14→21:48)
[2016-09-11] MEDS: hydrOXYzine PAMOATE 25 MG CAP PO PRN ×3 (04:15→23:18)
[2016-09-11] MEDS: CALCIUM ACETATE 667 MG CAP PO SCH ×2 (07:34→16:14)
[2016-09-11 07:42] LABS: Basophils % (A) 0 %; CH 29.5; CHCM 32.8; Eosinophils # (A) 0.2 k/uL (0-0.7); Eosinophils % (A) 2 %; HCT 34.9 % (34.0-46.0); HDW 2.53; HGB 11.4 gm/dL (11.4-16.0); Luc # (Auto) 0.14; Luc % (Auto) 1; Lymphocytes % (A) 20 %; MCH 29.5 pg (25.0-35.0); MCHC 32.6 g/dL (31.0-37.0); MCV 90.4 fL (80.0-100.0); Mean Platelet Volume 8.4; Monocytes # (A) 0.8 k/uL (0-1.0); Monocytes % (A) 8 %; Neutrophils # (A) 6.9 k/uL (1.3-7.7); Neutrophils % (A) 69 %; RBC 3.86 m/uL (3.80-5.40); RDW 12.9 % (11.5-15.5); WBC (Perox) 9.58
[2016-09-11] MEDS: CALCIUM CARBONATE 500 MG CHEWABLE PO SCH ×3 (08:33→21:44)
[2016-09-11] MEDS: amLODIPine 10 MG TAB PO SCH (08:33)
[2016-09-11] MEDS: HEPARIN SODIUM,PORCINE 5,000 UNIT/ML 1 ML VIAL SQ SCH ×2 (08:34→20:24)
[2016-09-11] MEDS: LISINOPRIL 20 MG TAB PO SCH (08:34)
[2016-09-11] MEDS: GABAPENTIN 400 MG CAP PO SCH ×4 (08:34→21:45)
[2016-09-11 08:39] LABS: Anion Gap 9 mmol/L; Blood Urea Nitrogen 14 mg/dL (7-17); Calcium 9.4 mg/dL (8.4-10.2); Carbon Dioxide 22 mmol/L (22-30); Chloride 112 mmol/L (98-107); Glucose 164 mg/dL (74-99); Non-African American GFR(MDRD) >60 (>60 ml/min/1.73 sqM); Potassium 4.6 mmol/L (3.5-5.1); Sodium 143 mmol/L (137-145)
[2016-09-11] MEDS: CHOLECALCIFEROL 1,000 UNIT TAB PO SCH (11:03)
--- NOTE | 2016-09-11 13:10 | P.PN ---
Subjective Patient is sitting in bedside chair. Pain is tolerable. Denies any nausea or vomiting. Denies any chest pain or shortness of breath. She is passing gas. Reports 3 days since last bowel movement. Patient reports this is not unusual for her. She only wants to continue with the stool softener for now. Denies any chest pain or shortness breath. Denies any difficulty urinating. Objective - Vital Signs Vital signs: Vital Signs Temp 98.1 F 09/11/16 07:27 Pulse 73 09/11/16 07:31 Resp 16 09/11/16 07:31 BP 164/76 09/11/16 07:27 Pulse Ox 96 09/11/16 07:27 Intake & Output 09/10/16 09/11/16 09/11/16 18:59 06:59 18:59 Intake Total 2015 1000 480 Output Total 1700 Balance 315 1000 480 Intake: Intake, IV Titration 575 600 Amount Sodium Chloride 0.9% 1, 525 600 000 ml @ 75 mls/hr IV . [id number] JOLLY Rx#:[id number] cefTRIAXone 1,000 mg In 50 Sodium Chloride 0.9% 50 ml @ 100 mls/hr IVPB Q24HR JOLLY Rx#:[id number] Oral 1440 400 480 Output: Urine 1700 Uretheral (Negron) 1500 Other: Voiding Method Toilet Toilet # Voids 1 1 - Exam Head normocephalic Neck supple Lungs clear to auscultation bilaterally no wheezing or crackles Heart regular rate and rhythm S1-S2, no rub or gallop Abdomen is soft nontender nondistended positive bowel sounds no hepatosplenomegaly Extremities no edema. Right Leg is Jonathan wrapped. Neuro alert and orientated to 3 - Labs CBC & Chem 7: 09/11/16 06:52 09/11/16 06:52 Labs: Abnormal Lab Results - Last 24 Hours (Table) 09/11/16 Range/Units 06:52 Chloride 112 H (98-107) mmol/L Glucose 164 H (74-99) mg/dL Microbiology - Last 24 Hours (Table) 09/09/16 20:30 Urine Culture - Final Urine,Catheterized Assessment and Plan Plan: 1. Fragility fracture with slightly displaced fracture of the right femur: Postoperative day #2 status post right retrograde intramedullary femoral nail. Orthopedic following closely. 2. DVT prophylaxis: with subcu heparin 3. Uncomplicated urinary tract infection: Started on IV ceftriaxone. Urine culture negative 4. Essential hypertension: Blood pressure not well controlled today. Continue medication 5. Highly suspected osteoporosis: Needs further evaluation and possibly treatment as an outpatient 6. Vitamin D deficiency: Started on supplement
--- NOTE | 2016-09-11 13:43 | P.PN ---
Subjective Principal diagnosis: S/P intramedullary femoral nail Patient is postop day #2 from intramedullary femoral nail on right for distal femur fracture performed by Dr. Leyva. She has pain at surgical site as expected but it is improving. She's been ambulating with walker with touchdown weightbearing. She has no new complaints today. She denies numbness, tingling or weakness. She denies calf pain. Review of systems negative for fever, chills, chest pain, shortness breath, nausea, vomiting, dizziness, headaches or other. Objective - Vital Signs Vital signs: Vital Signs Temp 98.1 F 09/11/16 07:27 Pulse 73 09/11/16 07:31 Resp 16 09/11/16 07:31 BP 164/76 09/11/16 07:27 Pulse Ox 96 09/11/16 07:27 Intake & Output 09/10/16 09/11/16 09/11/16 18:59 06:59 18:59 Intake Total 2015 1000 480 Output Total 1700 Balance 315 1000 480 Intake: Intake, IV Titration 575 600 Amount Sodium Chloride 0.9% 1, 525 600 000 ml @ 75 mls/hr IV . [id number] JOLLY Rx#:[id number] cefTRIAXone 1,000 mg In 50 Sodium Chloride 0.9% 50 ml @ 100 mls/hr IVPB Q24HR JOLLY Rx#:[id number] Oral 1440 400 480 Output: Urine 1700 Uretheral (Negron) 1500 Other: Voiding Method Toilet Toilet # Voids 1 1 - Exam Inspection of the right lower extremity shows benign surgical wounds with nylon sutures in place. There is no active bleeding, dehiscence or drainage. Full sensation to light touch is intact throughout the right lower extremity. Motor is intact with flexion extension at the right knee. She's able to dorsiflex and plantarflex the right foot and toes. Calf is soft and nontender. There is 2+ dorsalis pedis pulse present and less than 2 second cap refill. - Constitutional General appearance: Present: no acute distress - Psychiatric Psychiatric: Present: A&O x's 3, appropriate affect, intact judgment & insight - Labs CBC & Chem 7: 09/11/16 06:52 09/11/16 06:52 Labs: Abnormal Lab Results - Last 24 Hours (Table) 09/11/16 Range/Units 06:52 Chloride 112 H (98-107) mmol/L Glucose 164 H (74-99) mg/dL Microbiology - Last 24 Hours (Table) 09/09/16 20:30 Urine Culture - Final Urine,Catheterized Assessment and Plan (1) Femoral shaft fracture Narrative/Plan: She will continue with routine postop orthopedic protocol including pain management, wound care, physical therapy and DVT prophylaxis. She's been getting Lovenox which she will continue for the next 4 weeks. She'll likely discharge to home with home health in the next 1-2 days. Continue postoperative medical management. Status: Acute Time with Patient: Less than 30
[2016-09-11 14:52] LABS: Basophils % (A) 0 %; CH 29.7; CHCM 33.1; Eosinophils # (A) 0.2 k/uL (0-0.7); Eosinophils % (A) 2 %; HCT 35.1 % (34.0-46.0); HDW 2.55; HGB 11.4 gm/dL (11.4-16.0); Luc # (Auto) 0.15; Luc % (Auto) 2; Lymphocytes # (A) 1.9 k/uL (1.0-4.8); Lymphocytes % (A) 19 %; MCH 29.1 pg (25.0-35.0); MCHC 32.4 g/dL (31.0-37.0); MCV 89.9 fL (80.0-100.0); Mean Platelet Volume 8.2; Monocytes # (A) 0.7 k/uL (0-1.0); Monocytes % (A) 7 %; Neutrophils # (A) 6.8 k/uL (1.3-7.7); Neutrophils % (A) 70 %; RDW 12.9 % (11.5-15.5); WBC 9.7 k/uL (3.8-10.6); WBC (Perox) 10.05
[2016-09-11 20:10] VITALS: RESP 16
[2016-09-11] MEDS: ATORVASTATIN 20 MG TAB PO SCH (20:23)
[2016-09-11] MEDS: SENNOSIDES-DOCUSATE SODIUM 1 EACH TAB PO SCH (20:23)
[2016-09-12] MEDS: HYDROmorphone 2 MG/ML 1 ML SYRINGE IVP PRN ×2 (00:12→05:11)
[2016-09-12] MEDS: HYDROcodone/APAP 7.5-325MG 1 EACH TAB PO PRN ×3 (03:13→15:21)
[2016-09-12] MEDS: hydrOXYzine PAMOATE 25 MG CAP PO PRN ×2 (03:14→08:33)
[2016-09-12 08:07] LABS: Basophils % (A) 0 %; CH 29.7; Eosinophils # (A) 0.3 k/uL (0-0.7); Eosinophils % (A) 3 %; HCT 36.1 % (34.0-46.0); HDW 2.53; HGB 11.8 gm/dL (11.4-16.0); Luc # (Auto) 0.19; Luc % (Auto) 2; Lymphocytes # (A) 2.4 k/uL (1.0-4.8); Lymphocytes % (A) 25 %; MCH 29.4 pg (25.0-35.0); MCHC 32.6 g/dL (31.0-37.0); MCV 90.2 fL (80.0-100.0); Monocytes # (A) 0.7 k/uL (0-1.0); Monocytes % (A) 7 %; Neutrophils # (A) 6.1 k/uL (1.3-7.7); Neutrophils % (A) 63 %; WBC 9.6 k/uL (3.8-10.6); WBC (Perox) 9.64
[2016-09-12] MEDS: CALCIUM CARBONATE 500 MG CHEWABLE PO SCH (08:32)
[2016-09-12] MEDS: GABAPENTIN 400 MG CAP PO SCH ×2 (08:32→12:07)
[2016-09-12] MEDS: LISINOPRIL 20 MG TAB PO SCH (08:32)
[2016-09-12] MEDS: CALCIUM ACETATE 667 MG CAP PO SCH (08:33)
[2016-09-12] MEDS: amLODIPine 10 MG TAB PO SCH (08:33)
[2016-09-12] MEDS: HEPARIN SODIUM,PORCINE 5,000 UNIT/ML 1 ML VIAL SQ SCH (08:33)
[2016-09-12 08:44] LABS: Anion Gap 10 mmol/L; Blood Urea Nitrogen 17 mg/dL (7-17); Carbon Dioxide 25 mmol/L (22-30); Chloride 109 mmol/L (98-107); Glucose 171 mg/dL (74-99); Non-African American GFR(MDRD) >60 (>60 ml/min/1.73 sqM); Potassium 5.1 mmol/L (3.5-5.1); Sodium 144 mmol/L (137-145)
[2016-09-12 08:52] VITALS: TEMP 98.5
[2016-09-12] MEDS: SODIUM CHLORIDE 0.9% 1,000 ML IV SCH (09:09)
--- NOTE | 2016-09-12 09:47 | P.DS ---
Providers Date of admission: 09/09/16 00:45 Expected date of discharge: 09/12/16 Attending physician: Landry Leyva Primary care physician: Bailee Conner - Discharge Diagnosis(es) (1) Femoral shaft fracture Patient is a pleasant 6-year-old female submitted the OR on 09/09/2016 to undergo close reduction and insertion of right retrograde femoral nail for a distal closed femur fracture. She underwent the above procedure which she tolerated well without complication. Her postoperative hospital course has remained without complication. On day of discharge she is tolerating by mouth meds and diet, voiding without difficulty, positive flatus, denying new complaints. On day of discharge her wounds are benign, she is neurovascular intact, there is 2+ dorsalis pedis pulses and less than 2 second cap refill, calf is soft and nontender, abdomen soft and nontender, labs within acceptable ranges and she is afebrile. Review of systems is negative for fever, chills, chest pain, shortness breath, nausea, vomiting, abdominal pain, dysuria, calf pain, slurred speech or other. Current Visit: Yes Status: Acute Priority: Medium Procedures: Right retrograde femoral nail Patient Condition at Discharge: Good Plan - Discharge Summary New Discharge Prescriptions: Calcium Carbonate [Tums] 500 mg PO TID #90 chewable Cholecalciferol [Vitamin D3] 2,000 unit PO DAILY #30 tablet Docusate [Colace] 100 mg PO BID #28 capsule Enoxaparin [Lovenox] 40 mg SQ DAILY 28 Days Ergocalciferol (Vitamin D2) [Vitamin D2] 50,000 unit PO WEEKLY #30 capsule Hydrocodone/Acetaminophen [[place] 5-325] 1 - 2 tab PO Q4HR PRN #50 tab PRN Reason: Pain Discharge Medication List Lisinopril 40 mg PO DAILY 01/22/15 [History] Albuterol Inhaler [Ventolin Hfa Inhaler] 1 - 2 puff INHALATION RT-Q6H PRN [History] amLODIPine [Norvasc] 10 mg PO DAILY 07/15/16 [History] Albuterol Nebulized [Ventolin Nebulized] 2.5 mg INHALATION RT-Q6H PRN 08/31/16 [ History] Atorvastatin [Lipitor] 20 mg PO HS 08/31/16 [History] Gabapentin [Neurontin] 800 mg PO QID 08/31/16 [History] Aspirin 325 - 650 mg PO QID PRN 09/09/16 [History] Ibuprofen [Motrin] 800 mg PO Q8H PRN 09/09/16 [History] Calcium Carbonate [Tums] 500 mg PO TID #90 chewable 09/11/16 [Rx] Cholecalciferol [Vitamin D3] 2,000 unit PO DAILY #30 tablet 09/11/16 [Rx] Docusate [Colace] 100 mg PO BID #28 capsule 09/11/16 [Rx] Enoxaparin [Lovenox] 40 mg SQ DAILY 28 Days 09/11/16 [Rx] Ergocalciferol (Vitamin D2) [Vitamin D2] 50,000 unit PO WEEKLY #30 capsule 09/11 [Rx] Hydrocodone/Acetaminophen [[place] 5-325] 1 - 2 tab PO Q4HR PRN #50 tab 09/11/16 [ Rx] Follow up Appointment(s)/Referral(s): Bailee Conner MD [Primary Care Provider] - 1-2 days Landry Leyva MD [Medical Doctor] - 2 Weeks Activity/Diet/Wound Care/Special Instructions: 1. Toe touch weight bearing on your right leg 2. Use walker or crutches to ambulate 3. Keep incisions clean and dry. Ok to get wet in shower, pat dry and keep covered. 4. Start gentle knee range of motion 5. DVT (blood clot) prevention with lovenox 40 mg daily for 4 weeks 6. Calcium and vitamin D supplementation 7. Follow-up in office in 10-14 days. Discharge Disposition: HOME WITH HOME HEALTH SERVICES
[2016-09-12] MEDS: CHOLECALCIFEROL 1,000 UNIT TAB PO SCH (12:08)
[2016-09-12 14:35] VITALS: BP 155/72; PULSE 86
== END 2016-09-12 16:49 | disposition home health service (06) | DRG 481 ==
LOC: EC 20:58 → 3SUR 09-09 00:45
PROVIDERS: ADMIT Orthopaedic Surgery; ATTEND Orthopaedic Surgery
PROC: 2W3LX1Z Immobilization of Right Lower Extremity using Splint (ICD-10-PCS; 2016-09-08)
PROC: 0QSB06Z Reposition Right Lower Femur with Intramedullary Internal Fixation Device, Open Approach (ICD-10-PCS; principal; 2016-09-09 12:00)
DX: M80.051A Age-related osteoporosis with current pathological fracture, right femur, initial encounter for fracture (principal); N39.0 Urinary tract infection, site not specified; I10 Essential (primary) hypertension; J44.9 Chronic obstructive pulmonary disease, unspecified; M79.4 Hypertrophy of (infrapatellar) fat pad; K21.9 Gastro-esophageal reflux disease without esophagitis; D72.829 Elevated white blood cell count, unspecified; M19.90 Unspecified osteoarthritis, unspecified site; G40.909 Epilepsy, unspecified, not intractable, without status epilepticus; F17.210 Nicotine dependence, cigarettes, uncomplicated; R29.6 Repeated falls; Z79.891 Long term (current) use of opiate analgesic; Z79.899 Other long term (current) drug therapy; Z90.49 Acquired absence of other specified parts of digestive tract; Z98.1 Arthrodesis status; Z90.721 Acquired absence of ovaries, unilateral; Z80.42 Family history of malignant neoplasm of prostate; Z91.81 History of falling; Z86.73 Personal history of transient ischemic attack (TIA), and cerebral infarction without residual deficits; Z80.0 Family history of malignant neoplasm of digestive organs; Z82.49 Family history of ischemic heart disease and other diseases of the circulatory system; Z81.1 Family history of alcohol abuse and dependence; Z80.3 Family history of malignant neoplasm of breast; Z82.3 Family history of stroke; Z83.79 Family history of other diseases of the digestive system; Z71.6 Tobacco abuse counseling; Z86.19 Personal history of other infectious and parasitic diseases; Z87.09 Personal history of other diseases of the respiratory system; Z87.11 Personal history of peptic ulcer disease; Z87.42 Personal history of other diseases of the female genital tract; Z87.19 Personal history of other diseases of the digestive system; Z86.2 Personal history of diseases of the blood and blood-forming organs and certain disorders involving the immune mechanism
CPT/HCPCS: 29505; 36415; 71010; 80048; 80053; 81001; 82306; 85025; 85610; 85730; 86850; 86900; 86901; 87086; 88304; 88311; 93005; 96372; 96374; 99285

== ENCOUNTER → 2016-10-02 | Outpatient (CLI) | payer BC ==
--- NOTE | 2016-10-03 10:12 | US ---
EXAMINATION TYPE: US venous doppler duplex LE RT DATE OF EXAM: 10/02/2016 5:21 PM COMPARISON: Prior in PACS CLINICAL HISTORY: Calf Pain, DVT Rt lower Ext. I80.9. Surgery on right leg about 2 weeks ago, patie nt is taking blood thinners SIDE PERFORMED: Right VESSELS IMAGED: External Iliac Vein (EIV) Common Femoral Vein Deep Femoral Vein Greater Saphenous Vein * Femoral Vein Popliteal Vein Small Saphenous Vein * Proximal Calf Veins (* superficial vessels) TECHNOLOGIST IMPRESSION: wnl Right Leg: Negative for DVT Preliminary results given to air pollution inspector Doctor at office (Dr Espinoza) at time of exam IMPRESSION: 1. No deep venous thrombosis right lower extremity.
== END | disposition home or self-care (01) ==
LOC: RADUSMAIN 16:44
PROVIDERS: ATTEND Orthopaedic Surgery
DX: I80.9 Phlebitis and thrombophlebitis of unspecified site (principal)

== ENCOUNTER 2016-10-14 16:06 | Emergency (ER) | payer BC ==
[2016-10-14] MEDS ORDERED: HYDROcodone/APAP 5-325MG 1 EACH TAB PO STA (17:12)
[2016-10-14 17:23] VITALS: RESP 15
--- NOTE | 2016-10-14 17:48 | ED ---
Extremity Problem HPI - General Chief complaint: Extremity Problem,Nontraumatic Stated complaint: Leg Swollen-Post Op Time Seen by Provider: 10/14/16 16:58 Source: patient, RN notes reviewed Mode of arrival: wheelchair Limitations: no limitations - History of Present Illness Initial comments: 60-year-old female presents emergency Department chief complaint of right calf pain. Patient states started last day or so. Patient states slightly swollen. She is concerned for possible blood clot. She has no history of blood clots and states that she is on Lovenox injections currently. Patient states she is status post femur alice. Patient states that she was feeling fracture fixed by Dr. Nikhil love. Patient states that this pain this developed over the last few days. Patient also states that she is out of her pain medication. - Related Data Home Medications Medication Instructions Recorded Confirmed Lisinopril 40 mg PO DAILY 01/22/15 09/09/16 Albuterol Inhaler [Ventolin Hfa 1 - 2 puff INHALATION RT-Q6H PRN 07/15/16 Inhaler] amLODIPine [Norvasc] 10 mg PO DAILY 07/15/16 09/09/16 Albuterol Nebulized [Ventolin 2.5 mg INHALATION RT-Q6H PRN 08/31/16 09/09/16 Nebulized] Atorvastatin [Lipitor] 20 mg PO HS 08/31/16 09/09/16 Gabapentin [Neurontin] 800 mg PO QID 08/31/16 09/09/16 Aspirin 325 - 650 mg PO QID PRN 09/09/16 09/09/16 Ibuprofen [Motrin] 800 mg PO Q8H PRN 09/09/16 09/09/16 Previous Rx's Medication Instructions Recorded Calcium Carbonate [Tums] 500 mg PO TID #90 chewable 09/11/16 Cholecalciferol [Vitamin D3] 2,000 unit PO DAILY #30 tablet 09/11/16 Docusate [Colace] 100 mg PO BID #28 capsule 09/11/16 Enoxaparin [Lovenox] 40 mg SQ DAILY 28 Days 09/11/16 Ergocalciferol (Vitamin D2) 50,000 unit PO WEEKLY #30 capsule 09/11/16 [Vitamin D2] Hydrocodone/Acetaminophen [[place] 1 - 2 tab PO Q4HR PRN #50 tab 09/11/16 5-325] Hydrocodone/Acetaminophen [[place] 1 tab PO Q6HR PRN #14 tab 10/14/16 5-325] Allergies Allergy/AdvReac Type Severity Reaction Status Date / Time No Known Allergies Allergy Verified 10/14/16 16:37 Review of Systems ROS Statement: Those systems with pertinent positive or pertinent negative responses have been documented in the HPI. ROS Other: All systems not noted in ROS Statement are negative. Past Medical History Past Medical History: COPD, CVA/TIA, GERD/Reflux, Hypertension, Osteoarthritis ( OA) Additional Past Medical History / Comment(s): bronchitis, pancreatitis, past anemia unknown cause, gastric ulcer, generalized arthritis,patient denies ever having a seizure History of Any Multi-Drug Resistant Organisms: None Reported Past Surgical History: Appendectomy, Back Surgery, Orthopedic Surgery, Tonsillectomy Additional Past Surgical History / Comment(s): 6 back surgeries with 2 fusions, Right oophorectomy due to ectopic , EGD/colonoscopy, right leg Past Anesthesia/Blood Transfusion Reactions: No Reported Reaction Additional Past Anesthesia/Blood Transfusion Reaction / Comment(s): Pt has received blood in past without reaction. Past Psychological History: No Psychological Hx Reported Additional Psychological History / Comment(s): Pt resides with her spouse. She is independent. Smoking Status: Current every day smoker Past Alcohol Use History: None Reported Additional Past Alcohol Use History / Comment(s): smokes 5-6 cigarettes per day Past Drug Use History: None Reported - Past Family History Father Family Medical History: Cancer, Liver Disease Additional Family Medical History / Comment(s): from liver cancer Mother Family Medical History: Cancer, CVA/TIA, Hypertension Additional Family Medical History / Comment(s): Mother had breast and colon cancer. She of liver cancer at the age of 77 yrs. General Exam Limitations: no limitations General appearance: alert, in no apparent distress Head exam: Present: atraumatic, normocephalic, normal inspection Respiratory exam: Present: normal lung sounds bilaterally. Absent: respiratory distress, wheezes, rales, rhonchi, stridor Cardiovascular Exam: Present: regular rate, normal rhythm, normal heart sounds. Absent: systolic murmur, diastolic murmur, rubs, gallop, clicks Extremities exam: Present: other (Right calf there is tenderness with palpation there is surgical incision well healed noted to the proximal tib-fib region pulses equal bilaterally no rashes minimal swelling) Course Vital Signs 10/14/16 10/14/16 16:34 17:21 Temperature 99.1 F Pulse Rate 83 76 Respiratory 20 15 Rate Blood Pressure 185/84 160/72 O2 Sat by Pulse 98 94 L Oximetry Medical Decision Making - Medical Decision Making Social female presented emergency Department chief complaint of right leg pain. Patient has a SVT with no evidence of DVT. Disposition Clinical Impression: Thrombophlebitis of leg, right, superficial Disposition: HOME SELF-CARE Condition: Stable Instructions: Superficial Thrombophlebitis (ED) Additional Instructions: Please return to the Emergency Department if symptoms worsen or any other concerns. Prescriptions: Hydrocodone/Acetaminophen [[place] 5-325] 1 tab PO Q6HR PRN #14 tab PRN Reason: Pain Time of Disposition: 18:03
--- NOTE | 2016-10-14 17:58 | US ---
EXAMINATION TYPE: US venous doppler duplex LE RT DATE OF EXAM: 10/14/2016 5:45 PM COMPARISON: NONE CLINICAL HISTORY: Pain. SIDE PERFORMED: Right VESSELS IMAGED: External Iliac Vein (EIV) Common Femoral Vein Deep Femoral Vein Greater Saphenous Vein * Femoral Vein Popliteal Vein Small Saphenous Vein * Proximal Calf Veins (* superficial vessels) TECHNOLOGIST IMPRESSION: SSV appear to be clotted in the origin and proximal portion of the calf. Right Leg: Negative as seen for DVT, Positive as seen for SVT IMPRESSION: No evidence of deep venous thrombosis. There is limited thrombus in the short saphenous vein which is a superficial vein.
[2016-10-14 18:25] VITALS: BP 167/75; PULSE 75; TEMP 98.7
== END 2016-10-14 18:28 | disposition home or self-care (01) ==
LOC: EC 16:06
DX: I80.3 Phlebitis and thrombophlebitis of lower extremities, unspecified (principal); I10 Essential (primary) hypertension; Z98.890 Other specified postprocedural states; Z87.19 Personal history of other diseases of the digestive system; Z86.73 Personal history of transient ischemic attack (TIA), and cerebral infarction without residual deficits; F17.210 Nicotine dependence, cigarettes, uncomplicated; Z79.899 Other long term (current) drug therapy; Z79.82 Long term (current) use of aspirin; Z79.01 Long term (current) use of anticoagulants
CPT/HCPCS: 99283

== ENCOUNTER 2016-12-20 16:01 | Emergency (ER) | payer BC ==
[2016-12-20 16:57] VITALS: RESP 18
--- NOTE | 2016-12-20 19:32 | ED ---
URI HPI - General Chief Complaint: Upper Respiratory Infection Stated Complaint: Coughing/Sore throat Time Seen by Provider: 12/20/16 19:12 Source: patient, RN notes reviewed Mode of arrival: ambulatory Limitations: no limitations - History of Present Illness Initial Comments: Patient is a 61-year-old female presents emergency room for evaluation of cough and sore throat. Patient has a history of COPD. Patient states she began having a cough about 3 days ago that caused a sore throat. Patient states she' s been taking [id number] remedies and ibuprofen with no relief of symptoms. Patient does state she smokes about a pack and half per day but is trying to cut down. Patient denies fevers or chills. Patient denies bodyaches. Patient denies headache or dizziness. Patient denies chest pain or shortness of breath. Patient states she's needs something for her cough. Patient denies abdominal pain, nausea, vomiting. - Related Data Home Medications Medication Instructions Recorded Confirmed Lisinopril 40 mg PO DAILY 01/22/15 12/20/16 Albuterol Inhaler [Ventolin Hfa 1 - 2 puff INHALATION RT-Q6H PRN 07/15/16 Inhaler] amLODIPine [Norvasc] 10 mg PO DAILY 07/15/16 12/20/16 Albuterol Nebulized [Ventolin 2.5 mg INHALATION RT-Q6H PRN 08/31/16 12/20/16 Nebulized] Atorvastatin [Lipitor] 20 mg PO HS 08/31/16 12/20/16 Gabapentin [Neurontin] 800 mg PO QID 08/31/16 12/20/16 Ibuprofen [Motrin] 800 mg PO Q8H PRN 09/09/16 12/20/16 Ergocalciferol (Vitamin D2) 50,000 unit PO FR 12/20/16 12/20/16 [Vitamin D2] Previous Rx's Medication Instructions Recorded Cholecalciferol [Vitamin D3] 2,000 unit PO DAILY #30 tablet 09/11/16 Enoxaparin [Lovenox] 40 mg SQ DAILY 28 Days 09/11/16 Hydrocodone/Acetaminophen [[place] 1 - 2 tab PO Q4HR PRN #50 tab 09/11/16 5-325] Azithromycin [Zithromax Z-pack] 250 mg PO DIRECTED #6 tab 12/20/16 guaiFENesin-Coden 100-10MG/5ML 10 ml PO Q6HR PRN #100 ml 12/20/16 [Robitussin AC] predniSONE 20 mg PO DAILY #5 tab 12/20/16 Allergies Allergy/AdvReac Type Severity Reaction Status Date / Time No Known Allergies Allergy Verified 12/20/16 19:31 Review of Systems ROS Statement: Those systems with pertinent positive or pertinent negative responses have been documented in the HPI. ROS Other: All systems not noted in ROS Statement are negative. Past Medical History Past Medical History: COPD, CVA/TIA, GERD/Reflux, Hypertension, Osteoarthritis ( OA) Additional Past Medical History / Comment(s): bronchitis, pancreatitis, past anemia unknown cause, gastric ulcer, generalized arthritis,patient denies ever having a seizure History of Any Multi-Drug Resistant Organisms: None Reported Past Surgical History: Appendectomy, Back Surgery, Orthopedic Surgery, Tonsillectomy Additional Past Surgical History / Comment(s): 6 back surgeries with 2 fusions, Right oophorectomy due to ectopic , EGD/colonoscopy, right leg Past Anesthesia/Blood Transfusion Reactions: No Reported Reaction Additional Past Anesthesia/Blood Transfusion Reaction / Comment(s): Pt has received blood in past without reaction. Past Psychological History: No Psychological Hx Reported Additional Psychological History / Comment(s): Pt resides with her spouse. She is independent. Smoking Status: Current every day smoker Past Alcohol Use History: None Reported Additional Past Alcohol Use History / Comment(s): smokes 5-6 cigarettes per day Past Drug Use History: None Reported - Past Family History Father Family Medical History: Cancer, Liver Disease Additional Family Medical History / Comment(s): from liver cancer Mother Family Medical History: Cancer, CVA/TIA, Hypertension Additional Family Medical History / Comment(s): Mother had breast and colon cancer. She of liver cancer at the age of 77 yrs. General Exam - General Exam Comments Initial Comments: Sitting in exam room, no acute distress. Limitations: no limitations General appearance: alert, in no apparent distress Head exam: Present: atraumatic, normocephalic, normal inspection Eye exam: Present: normal appearance ENT exam: Present: normal exam Neck exam: Present: normal inspection Respiratory exam: Present: wheezes. Absent: respiratory distress Cardiovascular Exam: Present: regular rate, normal rhythm, normal heart sounds Extremities exam: Present: normal inspection Back exam: Present: normal inspection Neurological exam: Present: alert, oriented X3, CN II-XII intact, normal gait Psychiatric exam: Present: normal affect, normal mood Skin exam: Present: warm, dry, intact, normal color. Absent: rash Course Vital Signs 12/20/16 12/20/16 16:55 20:02 Temperature 98.8 F 98.6 F Pulse Rate 100 92 Respiratory 18 18 Rate Blood Pressure 134/83 134/67 O2 Sat by Pulse 98 97 Oximetry Medical Decision Making - Medical Decision Making Patient is a 61-year-old female with a history of COPD, presents to the emergency room for evaluation of cough and sore throat. Patient refused any further workup. Patient refused a chest x-ray. Patient states just wants antibiotics and be sent home. Will send patient home with azithromycin, prednisone and cough medicine. Advised patient to follow-up with her primary care provider for reevaluation. Advised patient to return for shortness of breath or chest pain. Patient states she understands everything that was discussed with her. Case discussed Dr. Cornelius. Disposition Clinical Impression: COPD (chronic obstructive pulmonary disease), Bronchitis Disposition: HOME SELF-CARE Condition: Good Instructions: COPD (Chronic Obstructive Pulmonary Disease) (ED) Additional Instructions: Take medications as directed. Please follow up with primary care provider in 24 -48 hours for reevaluation. If any new symptom arises or symptoms worsen, return to ER as soon as possible. Prescriptions: guaiFENesin-Coden 100-10MG/5ML [Robitussin AC] 10 ml PO Q6HR PRN #100 ml PRN Reason: Cough Azithromycin [Zithromax Z-pack] 250 mg PO DIRECTED #6 tab predniSONE 20 mg PO DAILY #5 tab Referrals: None,Stated [Primary Care Provider] - 1-2 days Time of Disposition: 19:33
[2016-12-20 20:14] VITALS: BP 134/67; PULSE 92; TEMP 98.6
== END 2016-12-20 20:03 | disposition home or self-care (01) ==
LOC: EC 16:01
DX: J44.9 Chronic obstructive pulmonary disease, unspecified (principal); J20.9 Acute bronchitis, unspecified; I10 Essential (primary) hypertension; F17.210 Nicotine dependence, cigarettes, uncomplicated; Z79.899 Other long term (current) drug therapy
CPT/HCPCS: 87502; 99283

== ENCOUNTER → 2017-01-09 | Outpatient (CLI) | payer BC | END | disposition home or self-care (01) | LOC: LABWHC1 14:29 | PROVIDERS: ATTEND Orthopaedic Surgery | DX: Z47.89 Encounter for other orthopedic aftercare (principal); M79.651 Pain in right thigh; E55.9 Vitamin D deficiency, unspecified | CPT/HCPCS: 36415; 82306 ==

== ENCOUNTER 2017-02-08 08:47 | Emergency (ER) | payer BC ==
[2017-02-08] MEDS ORDERED: ONDANSETRON 4 MG/2 ML VIAL IVP STA (08:59)
[2017-02-08] MEDS ORDERED: SODIUM CHLORIDE 0.9% 1,000 ML IV STA (08:59)
[2017-02-08] MEDS ORDERED: HYDROmorphone 1 MG/ML 1 ML SYRINGE IVP STA ×2 (08:59→11:31)
--- NOTE | 2017-02-08 09:03 | ED ---
General Adult HPI - General Chief complaint: Abdominal Pain Stated complaint: Abd Pain, Vomiting Time Seen by Provider: 02/08/17 08:56 Source: patient, RN notes reviewed Mode of arrival: wheelchair Limitations: no limitations - History of Present Illness Initial comments: Patient is a 61-year-old female who presents emergency room today with a chief complaint of increased abdominal pain with nausea vomiting and diarrhea over the last 3 days. Patient states that she's had some symptoms the past with pancreatitis. She currently rates pain 10/10 located in the upper abdomen. Patient states pain returns was due to gallbladder which was removed. She states she's been on times she's had an attack like this. She denies any other complaints or symptoms at this time. Patient denies any recent fever, chills, shortness of breath, chest pain, back pain, numbness or tingling, dysuria or hematuria, constipation, headaches or visual changes, or any other complaints. - Related Data Home Medications Medication Instructions Recorded Confirmed Lisinopril 40 mg PO DAILY 01/22/15 02/08/17 Albuterol Inhaler [Ventolin Hfa 1 - 2 puff INHALATION RT-Q6H PRN 07/15/16 Inhaler] amLODIPine [Norvasc] 10 mg PO DAILY 07/15/16 02/08/17 Albuterol Nebulized [Ventolin 2.5 mg INHALATION RT-Q6H PRN 08/31/16 02/08/17 Nebulized] Gabapentin [Neurontin] 800 mg PO QID 08/31/16 02/08/17 Cholecalciferol [Vitamin D3] 2,000 unit PO Q72H 02/08/17 02/08/17 traMADol HCL [Ultram] 50 - 100 mg PO Q4HR PRN 02/08/17 02/08/17 Previous Rx's Medication Instructions Recorded Famotidine [Pepcid] 20 mg PO BID #20 tablet 02/08/17 Omeprazole [PriLOSEC] 20 mg PO AC-BRKFST 14 Days 02/08/17 traMADol HCl [Ultram] 50 mg PO Q6H PRN #20 tab 02/08/17 Allergies Allergy/AdvReac Type Severity Reaction Status Date / Time No Known Allergies Allergy Verified 02/08/17 10:37 Review of Systems ROS Statement: Those systems with pertinent positive or pertinent negative responses have been documented in the HPI. ROS Other: All systems not noted in ROS Statement are negative. Past Medical History Past Medical History: COPD, CVA/TIA, GERD/Reflux, Hypertension, Osteoarthritis ( OA) Additional Past Medical History / Comment(s): bronchitis, pancreatitis, past anemia unknown cause, gastric ulcer, generalized arthritis,patient denies ever having a seizure History of Any Multi-Drug Resistant Organisms: None Reported Past Surgical History: Appendectomy, Back Surgery, Orthopedic Surgery, Tonsillectomy Additional Past Surgical History / Comment(s): 6 back surgeries with 2 fusions, Right oophorectomy due to ectopic , EGD/colonoscopy, right leg Past Anesthesia/Blood Transfusion Reactions: No Reported Reaction Additional Past Anesthesia/Blood Transfusion Reaction / Comment(s): Pt has received blood in past without reaction. Past Psychological History: No Psychological Hx Reported Additional Psychological History / Comment(s): Pt resides with her spouse. She is independent. Smoking Status: Current every day smoker Past Alcohol Use History: None Reported Additional Past Alcohol Use History / Comment(s): smokes 5-6 cigarettes per day Past Drug Use History: None Reported - Past Family History Father Family Medical History: Cancer, Liver Disease Additional Family Medical History / Comment(s): from liver cancer Mother Family Medical History: Cancer, CVA/TIA, Hypertension Additional Family Medical History / Comment(s): Mother had breast and colon cancer. She of liver cancer at the age of 77 yrs. General Exam - General Exam Comments Initial Comments: General: The patient is awake and alert, in mild distress. Eye: Pupils are equal, round and reactive to light, extra-ocular movements are intact. No nystagmus. There is normal conjunctiva bilaterally. No signs of icterus. Ears, nose, mouth and throat: There are moist mucous membranes and no oral lesions. Neck: The neck is supple, there is no tenderness or JVD. Cardiovascular: There is a regular rate and rhythm. No murmur, rub or gallop is appreciated. Respiratory: Lungs are clear to auscultation, respirations are non-labored, breath sounds are equal. No wheezes, stridor, rales, or rhonchi. Gastrointestinal: Normal appearance of the abdomen. Normal bowel sounds. Abdomen soft on palpation. Patient does have tenderness in the epigastric. Mild tenderness in the left upper. No rebound tenderness. No Guarding. No CVA tenderness. Musculoskeletal: Normal ROM, no tenderness. Strength 5/5. Sensation intact. Pulses equal bilaterally 2+. Neurological: A&O x 3. CN II-XII intact, There are no obvious motor or sensory deficits. Coordination appears grossly intact. Speech is normal. Skin: Skin is warm and dry and no rashes or lesions are noted. Psychiatric: Cooperative, appropriate mood & affect, normal judgment. Limitations: no limitations Course Vital Signs 02/08/17 02/08/17 08:48 10:00 Temperature 98.0 F Pulse Rate 89 65 Respiratory 22 20 Rate Blood Pressure 147/76 136/63 O2 Sat by Pulse 98 91 L Oximetry Medical Decision Making - Medical Decision Making Case discussed in detail with attending physician Dr. Wynn. Patient reexamined at this time shows no signs of distress. Resting comfortably in the stretcher. Patient's CT of the abdomen and pelvis is negative for any acute abnormalities. Results were discussed with the patient. Patient labs been reviewed shows 9 red cells in her urine no sign of infection. Remaining labs are unremarkable. His results were discussed with the patient. She is advised to have close follow-up with the GI doctor and her family doctor over the next 2 days. Will be given medication of Pepcid, Prilosec, is requesting Ultram for pain. Will be discharged home advised to return if any symptoms increase or worsen. Patient states understanding and is in agreement with the plan. - Lab Data Result diagrams: 02/08/17 09:22 02/08/17 09:22 Lab Results 02/08/17 02/08/17 02/08/17 Range/Units 09:22 09:22 10:30 WBC 9.8 (3.8-10.6) k/uL RBC 5.12 (3.80-5.40) m/uL Hgb 15.4 (11.4-16.0) gm/dL Hct 47.4 H (34.0-46.0) % MCV 92.6 (80.0-100.0) fL MCH 30.1 (25.0-35.0) pg MCHC 32.5 (31.0-37.0) g/dL RDW 14.0 (11.5-15.5) % Plt Count 372 (150-450) k/uL Neutrophils % 78 % Lymphocytes % 17 % Monocytes % 3 % Eosinophils % 2 % Basophils % 1 % Neutrophils # 7.6 (1.3-7.7) k/uL Lymphocytes # 1.6 (1.0-4.8) k/uL Monocytes # 0.3 (0-1.0) k/uL Eosinophils # 0.2 (0-0.7) k/uL Basophils # 0.1 (0-0.2) k/uL Sodium 142 (137-145) mmol/L Potassium 4.3 (3.5-5.1) mmol/L Chloride 112 H (98-107) mmol/L Carbon Dioxide 16 L (22-30) mmol/L Anion Gap 14 mmol/L BUN 13 (7-17) mg/dL Creatinine 0.67 (0.52-1.04) mg/dL Est GFR (MDRD) Af Amer >60 (>60 ml/min/1.73 sqM) Est GFR (MDRD) Non-Af >60 (>60 ml/min/1.73 sqM) Glucose 120 H (74-99) mg/dL Calcium 10.0 (8.4-10.2) mg/dL Total Bilirubin 0.9 (0.2-1.3) mg/dL AST 22 (14-36) U/L ALT 21 (9-52) U/L Alkaline Phosphatase 95 (38-126) U/L Total Protein 8.0 (6.3-8.2) g/dL Albumin 4.8 (3.5-5.0) g/dL Amylase 52 (30-110) U/L Lipase 44 (23-300) U/L Urine Color Yellow Urine Appearance Clear (Clear) Urine pH 6.0 (5.0-8.0) Ur Specific [place] 1.023 (1.001-1.035) Urine Protein 1+ H (Negative) Urine Glucose (UA) Negative (Negative) Urine Ketones 3+ H (Negative) Urine Blood Moderate H (Negative) Urine Nitrite Negative (Negative) Urine Bilirubin Negative (Negative) Urine Urobilinogen 2.0 (<2.0) mg/dL Ur Leukocyte Esterase Moderate H (Negative) Urine RBC 9 H (0-5) /hpf Urine WBC 2 (0-5) /hpf Ur Squamous Epith Cells 7 H (0-4) /hpf Urine Bacteria Rare H (None) /hpf Hyaline Casts 6 H (0-2) /lpf Urine Mucus Occasional H (None) /hpf Disposition Clinical Impression: Abdominal pain Disposition: HOME SELF-CARE Condition: Good Instructions: Abdominal Pain (ED) Additional Instructions: Please use medication as discussed. Please follow-up with GI/family doctor in the next 2 days of symptoms have not improved. Please return to emergency room if the symptoms increase or worsen or for any other concerns. Prescriptions: Famotidine [Pepcid] 20 mg PO BID #20 tablet Omeprazole [PriLOSEC] 20 mg PO AC-BRKFST 14 Days traMADol HCl [Ultram] 50 mg PO Q6H PRN #20 tab PRN Reason: Pain Referrals: None,Stated [Primary Care Provider] - 1-2 days Zoya Clark MD [STAFF PHYSICIAN] - 1-2 days Time of Disposition: 12:38
--- NOTE | 2017-02-08 09:36 | XR ---
EXAMINATION TYPE: XR KUB DATE OF EXAM: 02/08/2017 CLINICAL HISTORY: Abdominal pain with nausea and vomiting for 3 days. TECHNIQUE: 2 upright KUB images of the abdomen are obtained COMPARISON: Abdominal x-ray October 22, 2010 FINDINGS: Scattered gas is seen in non-distended small bowel loops. Gas and fecal material is seen in non-distended colon. Single air-fluid level left lower quadrant is present. Cholecystectomy clips are redemonstrated. Posterior fusion hardware at lumbosacral junction is redemonstrated. There has be en vertebroplasty L3 level redemonstrated. Lung bases are clear. No pneumoperitoneum is present. Ther e is partial visualization of surgical change in the right proximal femur. IMPRESSION: Overall nonspecific strongly favor nonobstructive bowel gas pattern.
[2017-02-08 09:38] LABS: Basophils # (A) 0.1 k/uL (0-0.2); Basophils % (A) 1 %; CH 30.5; CHCM 33.1; Eosinophils # (A) 0.2 k/uL (0-0.7); Eosinophils % (A) 2 %; HCT 47.4 % (34.0-46.0); HDW 2.44; HGB 15.4 gm/dL (11.4-16.0); Luc # (Auto) 0.09; Luc % (Auto) 1; Lymphocytes # (A) 1.6 k/uL (1.0-4.8); Lymphocytes % (A) 17 %; MCH 30.1 pg (25.0-35.0); MCHC 32.5 g/dL (31.0-37.0); MCV 92.6 fL (80.0-100.0); Mean Platelet Volume 7.1; Monocytes # (A) 0.3 k/uL (0-1.0); Monocytes % (A) 3 %; Neutrophils # (A) 7.6 k/uL (1.3-7.7); Neutrophils % (A) 78 %; RBC 5.12 m/uL (3.80-5.40); WBC 9.8 k/uL (3.8-10.6); WBC (Perox) 8.93
[2017-02-08 09:49] LABS: ALT 21 U/L (9-52); AST 22 U/L (14-36); Alkaline Phosphatase 95 U/L (38-126); Amylase 52 U/L (30-110); Anion Gap 14 mmol/L; Blood Urea Nitrogen 13 mg/dL (7-17); Carbon Dioxide 16 mmol/L (22-30); Chloride 112 mmol/L (98-107); Glucose 120 mg/dL (74-99); Non-African American GFR(MDRD) >60 (>60 ml/min/1.73 sqM); Potassium 4.3 mmol/L (3.5-5.1); Sodium 142 mmol/L (137-145); Total Bilirubin 0.9 mg/dL (0.2-1.3)
[2017-02-08] MEDS ORDERED: MAG HYDROX/AL HYDROX/SIMETH 30 ML, HYOSCYAMINE ELIXIR 10 ML, CIMETIDINE HCL 300 MG, LID... PO STA ×4 (10:44)
[2017-02-08] MEDS ORDERED: RX INFO: IV CONTRAST WAS GIVEN 1 EACH MISC MISCELLANE PRN (10:45)
[2017-02-08 11:11] LABS: Appearance,Urine Clear (Clear); Bacteria,Urine Rare /hpf; Bilirubin,Urine Negative (Negative); Glucose,Urine (UA) Negative (Negative); Ketones,Urine 3+ (Negative); Leukocyte Esterase,Urine Moderate (Negative); Mucus,Urine Occasional /hpf; Nitrite,Urine Negative (Negative); Particle Count 8124; Protein,Urine 1+ (Negative); RBC,Urine 9 /hpf (0-5); Specific Gravity,Urine 1.023 (1.001-1.035); Squamous Epithelial Cell,Urine 7 /hpf (0-4); UA Billing (MACRO vs. MICRO) MICRO; WBC,Urine 2 /hpf (0-5)
--- NOTE | 2017-02-08 12:09 | CT ---
EXAMINATION TYPE: CT abdomen pelvis wo con DATE OF EXAM: 02/08/2017 HISTORY: abdominal pain, vomiting, hx of pancreatitis CT DLP: 353.1 mGycm. Automated Exposure Control for Dose Reduction was Utilized. TECHNIQUE: CT scan of the abdomen and pelvis is performed with oral but without IV contrast. COMPARISON: CT abdomen and pelvis October 18, 2010. FINDINGS: Within the limitations of a non-contrast study, the following observations are made. LUNG BASES: No significant abnormality is appreciated. LIVER/GB: Cholecystectomy clips are redemonstrated. PANCREAS: Pancreas is more atrophic in appearance versus prior exam. Some calcifications in head and uncinate process identified. Findings are consistent with product of chronic pancreatitis. SPLEEN: No significant abnormality is seen. ADRENALS: No significant abnormality is seen. KIDNEYS: No significant abnormality is seen. BOWEL: Evaluation bowel is suboptimal secondary to lack of enteric contrast distally as contrast is o nly seen in stomach and proximal loops. Jejunal loops are slightly more prominent in the left abdomen . No suspicious dilatation of ileal loops or colonic loops is present. There are some scattered colon ic diverticula. There is no convincing CT evidence for acute diverticulitis. GENITAL ORGANS: No gross abnormality seen. LYMPH NODES: No greater than 1cm abdominal or pelvic lymph nodes are appreciated. OSSEOUS STRUCTURES: Osseous structures are demineralized. Postsurgical change lumbosacral junction is redemonstrated with posterior fusion hardware and discectomy changes with desired ossific fusion. Th ere is redemonstration of vertebroplasty L3 level extending into L2-L3 disc space. Facet arthropathy lower lumbar levels is seen. There is partial visualization of surgical change of right proximal femu r new from prior study. OTHER: No significant additional abnormality is seen. IMPRESSION: Overall nonspecific but strongly favor nonobstructive bowel gas pattern. No significant a cute finding is seen to account for patient's symptoms.
[2017-02-08 12:53] VITALS: BP 151/71; PULSE 91; RESP 18; TEMP 98.7
== END 2017-02-08 12:53 | disposition home or self-care (01) ==
LOC: EC 08:47
DX: R10.10 Upper abdominal pain, unspecified (principal); R11.2 Nausea with vomiting, unspecified; R19.7 Diarrhea, unspecified; I10 Essential (primary) hypertension; F17.210 Nicotine dependence, cigarettes, uncomplicated; Z79.899 Other long term (current) drug therapy; Z80.0 Family history of malignant neoplasm of digestive organs; Z90.49 Acquired absence of other specified parts of digestive tract
CPT/HCPCS: 99284; 36415; 80053; 82150; 83690; 85025; 81001; 74000; 74176; 96374; 96375; 96376; 96361; J2405; J1170

== ENCOUNTER 2017-04-17 18:35 | Inpatient (IN) | payer BC ==
[2017-04-17] MEDS ORDERED: SODIUM CHLORIDE 0.9% 500 ML IV STA (19:39)
[2017-04-17] MEDS ORDERED: SODIUM CHLORIDE 0.9% 1,000 ML IV STA (19:39)
[2017-04-17 20:19] LABS: Basophils % (A) 0 %; CH 29.9; CHCM 33.9; Eosinophils # (A) 0.2 k/uL (0-0.7); Eosinophils % (A) 1 %; HCT 44.1 % (34.0-46.0); HDW 2.32; HGB 15.2 gm/dL (11.4-16.0); Luc # (Auto) 0.21; Luc % (Auto) 1; Lymphocytes # (A) 3.1 k/uL (1.0-4.8); Lymphocytes % (A) 17 %; MCH 30.5 pg (25.0-35.0); MCHC 34.5 g/dL (31.0-37.0); MCV 88.6 fL (80.0-100.0); Mean Platelet Volume 6.5; Monocytes # (A) 0.7 k/uL (0-1.0); Monocytes % (A) 4 %; Neutrophils # (A) 13.5 k/uL (1.3-7.7); Neutrophils % (A) 76 %; RBC 4.97 m/uL (3.80-5.40); RDW 13.2 % (11.5-15.5); WBC 17.8 k/uL (3.8-10.6); WBC (Perox) 16.72
[2017-04-17] MEDS ORDERED: ONDANSETRON 4 MG/2 ML VIAL IVP STA (20:24)
[2017-04-17] MEDS ORDERED: HYDROmorphone 1 MG/ML 1 ML SYRINGE IVP STA (20:24)
[2017-04-17] MEDS ORDERED: RX INFO: IV CONTRAST WAS GIVEN 1 EACH MISC MISCELLANE PRN (20:27)
--- NOTE | 2017-04-17 20:29 | ED ---
Abdominal Pain HPI - General Source: patient, RN notes reviewed Mode of arrival: wheelchair Limitations: no limitations <Danilo Nayak - Last Filed: 04/17/17 21:46> <Nakul Wynn - Last Filed: 04/17/17 22:07> - General Chief Complaint: Abdominal Pain Stated Complaint: N,V & Diarrhea Time Seen by Provider: 04/17/17 19:39 - History of Present Illness Initial Comments: 61-year-old female presents emergency Department with chief complaint abdominal pain. Patient states started yesterday worse today. Patient admits his nausea vomiting diarrhea. Patient states she's had recurrent pancreatitis and states it feels similar. Patient has had low-grade temp at home and in the emergency department. Patient states that she's had prior cholecystectomy and appendectomy. Denies any chest pain or shortness breath, cough or cold-like symptoms. Denies any dysuria hematuria no flank pain. (Danilo Nayak) - Related Data Home Medications Medication Instructions Recorded Confirmed Lisinopril 40 mg PO QAM 01/22/15 04/17/17 Albuterol Inhaler [Ventolin Hfa 1 - 2 puff INHALATION RT-Q6H PRN 07/15/16 Inhaler] amLODIPine [Norvasc] 10 mg PO QAM 07/15/16 04/17/17 Albuterol Nebulized [Ventolin 2.5 mg INHALATION RT-QID PRN 08/31/16 04/17/17 Nebulized] Gabapentin [Neurontin] 800 mg PO QID 08/31/16 04/17/17 Allergies Allergy/AdvReac Type Severity Reaction Status Date / Time No Known Allergies Allergy Verified 04/17/17 18:56 Review of Systems ROS Other: All systems not noted in ROS Statement are negative. <Danilo Nayak - Last Filed: 04/17/17 21:46> ROS Other: All systems not noted in ROS Statement are negative. <Nakul Wynn - Last Filed: 04/17/17 22:07> ROS Statement: Those systems with pertinent positive or pertinent negative responses have been documented in the HPI. Past Medical History Past Medical History: COPD, CVA/TIA, GERD/Reflux, Hypertension, Osteoarthritis ( OA) Additional Past Medical History / Comment(s): bronchitis, pancreatitis, past anemia unknown cause, gastric ulcer, generalized arthritis,patient denies ever having a seizure History of Any Multi-Drug Resistant Organisms: None Reported Past Surgical History: Appendectomy, Back Surgery, Orthopedic Surgery, Tonsillectomy Additional Past Surgical History / Comment(s): 6 back surgeries with 2 fusions, Right oophorectomy due to ectopic , EGD/colonoscopy, right leg Past Anesthesia/Blood Transfusion Reactions: No Reported Reaction Additional Past Anesthesia/Blood Transfusion Reaction / Comment(s): Pt has received blood in past without reaction. Past Psychological History: No Psychological Hx Reported Smoking Status: Current every day smoker Past Alcohol Use History: None Reported Past Drug Use History: None Reported - Past Family History Father Family Medical History: Cancer, Liver Disease Additional Family Medical History / Comment(s): from liver cancer Mother Family Medical History: Cancer, CVA/TIA, Hypertension Additional Family Medical History / Comment(s): Mother had breast and colon cancer. She of liver cancer at the age of 77 yrs. <Danilo Nayak - Last Filed: 04/17/17 21:46> General Exam Limitations: no limitations General appearance: alert, in no apparent distress Head exam: Present: atraumatic, normocephalic, normal inspection Respiratory exam: Present: normal lung sounds bilaterally. Absent: respiratory distress, wheezes, rales, rhonchi, stridor Cardiovascular Exam: Present: regular rate, normal rhythm, normal heart sounds. Absent: systolic murmur, diastolic murmur, rubs, gallop, clicks GI/Abdominal exam: Present: soft, tenderness (Moderate mid abdominal tenderness) , normal bowel sounds. Absent: distended, guarding, rebound, rigid Back exam: Absent: CVA tenderness (R), CVA tenderness (L) Skin exam: Present: warm, dry, intact, normal color. Absent: rash <Danilo Naayk - Last Filed: 04/17/17 21:46> Course <Danilo Nayak - Last Filed: 04/17/17 21:46> <Nakul Wynn - Last Filed: 04/17/17 22:07> Vital Signs 04/17/17 04/17/17 04/17/17 18:54 19:26 19:45 Temperature 99.0 F 100.5 F H Pulse Rate 93 91 90 Respiratory 18 16 18 Rate Blood Pressure 121/74 117/77 106/81 O2 Sat by Pulse 98 98 97 Oximetry 04/17/17 20:49 Temperature Pulse Rate 71 Respiratory 18 Rate Blood Pressure 134/70 O2 Sat by Pulse 97 Oximetry - Reevaluation(s) Reevaluation #1: 04/17/17 22:06 Patient reevaluated by myself, Dr. Wynn. Patient resting comfortably in bed. Abdomen soft with mild epigastric tenderness. Patient states regional symptoms started years ago associated with gallbladder problems. Patient denies any history of alcohol use even in the distant past. Patient states she has had approximately 8 episodes of this previously. Patient has had fever associated with this previously as well. Patient does not meet sepsis criteria at this time. Case discussed with Dr. Ashton, who will admit for hospital call. (Nakul Wynn) Medical Decision Making - Lab Data Result diagrams: 04/17/17 20:10 04/17/17 20:10 <Danilo Nayak - Last Filed: 04/17/17 21:46> - Lab Data Result diagrams: 04/17/17 20:10 04/17/17 20:10 <Nakul Wynn - Last Filed: 04/17/17 22:07> - Lab Data Lab Results 04/17/17 04/17/17 04/17/17 Range/Units 20:10 20:10 20:10 WBC 17.8 H (3.8-10.6) k/uL RBC 4.97 (3.80-5.40) m/uL Hgb 15.2 (11.4-16.0) gm/dL Hct 44.1 (34.0-46.0) % MCV 88.6 (80.0-100.0) fL MCH 30.5 (25.0-35.0) pg MCHC 34.5 (31.0-37.0) g/dL RDW 13.2 (11.5-15.5) % Plt Count 415 (150-450) k/uL Neutrophils % 76 % Lymphocytes % 17 % Monocytes % 4 % Eosinophils % 1 % Basophils % 0 % Neutrophils # 13.5 H (1.3-7.7) k/uL Lymphocytes # 3.1 (1.0-4.8) k/uL Monocytes # 0.7 (0-1.0) k/uL Eosinophils # 0.2 (0-0.7) k/uL Basophils # 0.0 (0-0.2) k/uL Sodium 142 (137-145) mmol/L Potassium 3.8 (3.5-5.1) mmol/L Chloride 111 H (98-107) mmol/L Carbon Dioxide 20 L (22-30) mmol/L Anion Gap 11 mmol/L BUN 16 (7-17) mg/dL Creatinine 1.20 H (0.52-1.04) mg/dL Est GFR (MDRD) Af Amer 55 (>60 ml/min/1.73 sqM) Est GFR (MDRD) Non-Af 46 (>60 ml/min/1.73 sqM) Glucose 118 H (74-99) mg/dL Plasma Lactic Acid Derek 1.4 (0.7-2.0) mmol/L Calcium 9.9 (8.4-10.2) mg/dL Total Bilirubin 0.5 (0.2-1.3) mg/dL AST 19 (14-36) U/L ALT 25 (9-52) U/L Alkaline Phosphatase 91 (38-126) U/L Total Protein 7.5 (6.3-8.2) g/dL Albumin 4.6 (3.5-5.0) g/dL Amylase (30-110) U/L Lipase >56142 H (23-300) U/L Disposition <Danilo Nayak - Last Filed: 04/17/17 21:46> <Nakul Wynn - Last Filed: 04/17/17 22:07> Clinical Impression: Acute on chronic pancreatitis Disposition: ADMITTED IP TO THIS [facility] Condition: Fair
[2017-04-17 20:36] LABS: ALT 25 U/L (9-52); AST 19 U/L (14-36); Alkaline Phosphatase 91 U/L (38-126); Anion Gap 11 mmol/L; Blood Urea Nitrogen 16 mg/dL (7-17); Calcium 9.9 mg/dL (8.4-10.2); Carbon Dioxide 20 mmol/L (22-30); Chloride 111 mmol/L (98-107); Glucose 118 mg/dL (74-99); Non-African American GFR(MDRD) 46 (>60 ml/min/1.73 sqM); Potassium 3.8 mmol/L (3.5-5.1); Sodium 142 mmol/L (137-145); Total Bilirubin 0.5 mg/dL (0.2-1.3); Total Protein 7.5 g/dL (6.3-8.2)
[2017-04-17] MEDS ORDERED: SODIUM CHLORIDE 0.9% 1,000 ML IV ONE (21:07)
--- NOTE | 2017-04-17 21:17 | XR ---
EXAMINATION TYPE: XR KUB DATE OF EXAM: 04/17/2017 COMPARISON: 02/08/2017 HISTORY: Abdominal pain TECHNIQUE: 2 views FINDINGS: There is no sign of intestinal obstruction or pneumoperitoneum. Fecal pattern is normal. Th ere are clips apparently from cholecystectomy. There is lumbar spine surgery noted. There are no path ologic calcifications over the kidneys. IMPRESSION: Nonacute abdomen. No change.
--- NOTE | 2017-04-17 21:39 | CT ---
EXAMINATION TYPE: CT abdomen pelvis wo con DATE OF EXAM: 04/17/2017 COMPARISON: 02/08/2017 HISTORY: Abdominal pain with nausea and vomiting. CT DLP: 389.6 mGycm Automated exposure control for dose reduction was used. TECHNIQUE: Helical acquisition of images was performed from the lung bases through the pelvis. FINDINGS: Lung bases are clear of infiltrate. There is no pleural effusion. Liver and spleen appear normal. There are clips from cholecystectomy. Bile ducts are not dilated. There is fat stranding around the body and head of the pancreas. There are small calcifications in th e pancreatic head. There is no adrenal mass. Kidneys have normal size and contour. There is no hydronephrosis. There is a 1.5 cm cortical cyst on the lower pole right kidney. There is no retroperitoneal adenopathy. There is no ascites. I see no intestinal wall thickening. There are no dilated loops. There are sigmoid div erticula. There is no sign of diverticulitis. There is 10% wedging of L3 vertebral body with vertebro plasty noted. IMPRESSION: THERE ARE INFLAMMATORY CHANGES AROUND THE BODY AND HEAD OF THE PANCREAS WITH CALCIFICATION CONSISTENT WITH ACUTE AND CHRONIC PANCREATITIS. THE ACUTE PANCREATITIS IS NEW COMPARED TO LAST EXAM. STABLE RIG HT RENAL CYST.
[2017-04-17] MEDS ORDERED: NALOXONE 0.4 MG/ML 1 ML VIAL IV PRN (21:47)
[2017-04-17] MEDS: SODIUM CHLORIDE 0.9% 1,000 ML IV SCH (22:22)
[2017-04-17 22:54] VITALS: BMI 22.1
[2017-04-18] MEDS: HYDROmorphone 1 MG/ML 1 ML SYRINGE IV PRN ×8 (00:45→21:44)
[2017-04-18 03:43] LABS: Appearance,Urine Clear (Clear); Bacteria,Urine Rare /hpf; Bilirubin,Urine Negative (Negative); Glucose,Urine (UA) Negative (Negative); Ketones,Urine Negative (Negative); Leukocyte Esterase,Urine Small (Negative); Mucus,Urine Rare /hpf; Nitrite,Urine Negative (Negative); Particle Count 1020; Protein,Urine Negative (Negative); RBC,Urine 3 /hpf (0-5); Specific Gravity,Urine 1.006 (1.001-1.035); Squamous Epithelial Cell,Urine <1 /hpf (0-4); UA Billing (MACRO vs. MICRO) MICRO; Urobilinogen,Urine <2.0 mg/dL (<2.0); WBC,Urine 4 /hpf (0-5)
[2017-04-18] MEDS: SODIUM CHLORIDE 0.9% 1,000 ML IV SCH ×3 (05:58→21:44)
--- NOTE | 2017-04-18 10:20 | P.CONS ---
History of Present Illness - Reason for Consult Consult date: 04/18/17 Pancreatitis Requesting physician: Alexsander Ashton - History of Present Illness 61-year-old female history of rheumatoid arthritis, multiple recurrent episodes of pancreatitis, calculus open cholecystectomy 16-17 years ago, peptic ulcer disease presents with acute epigastric abdominal pain nausea vomiting nonbloody diarrhea x 2 days. White count 17.8. Hemoglobin 15.2. Liver function tests total bilirubin within normal limits. Lipase greater than 20,000. CT abdomen and pelvis inflammatory changes around the body and head of pancreas with calcifications consistent with acute and chronic pancreatitis. Bile duct not dilated. Over the years with recurrent pancreatitis attacks patient states she's never had a formal workup for the cause her pancreatitis. About 1617 years ago she was told her gallbladder had to be removed secondary to gallstones and attack of pancreatitis. No changes in medications. No maintenance medications for her rheumatoid arthritis. No history of EtOH abuse. No NSAID usage. In addition she reports chronic looser stools sometimes foamy foul-smelling greasy in appearance. She tries to maintain a healthy diet but does lost about 10 pounds over the last few months. Past Medical History Past Medical History: COPD, CVA/TIA, GERD/Reflux, Hypertension, Osteoarthritis ( OA) Additional Past Medical History / Comment(s): bronchitis, pancreatitis, past anemia unknown cause, gastric ulcer, generalized arthritis History of Any Multi-Drug Resistant Organisms: None Reported Past Surgical History: Appendectomy, Back Surgery, Orthopedic Surgery, Tonsillectomy Additional Past Surgical History / Comment(s): 6 back surgeries with 2 fusions, Right oophorectomy due to ectopic , EGD/colonoscopy, right leg alice inserted from broken leg Past Anesthesia/Blood Transfusion Reactions: No Reported Reaction Additional Past Anesthesia/Blood Transfusion Reaction / Comm: Pt has received blood in past without reaction. Past Psychological History: No Psychological Hx Reported Additional Psychological History / Comment(s): Pt resides with her spouse. She is independent. Smoking Status: Current every day smoker Past Alcohol Use History: None Reported Additional Past Alcohol Use History / Comment(s): smokes 5-6 cigarettes per day Past Drug Use History: None Reported - Past Family History Father Family Medical History: Cancer, Liver Disease Additional Family Medical History / Comment(s): from liver cancer Mother Family Medical History: Cancer, CVA/TIA, Hypertension Additional Family Medical History / Comment(s): Mother had breast and colon cancer. She of liver cancer at the age of 77 yrs. Medications and Allergies Home Medications Medication Instructions Recorded Confirmed Type Lisinopril 40 mg PO QAM 01/22/15 04/17/17 History Albuterol Inhaler [Ventolin Hfa 1 - 2 puff INHALATION RT-Q6H PRN 07/15/16 History Inhaler] amLODIPine [Norvasc] 10 mg PO QAM 07/15/16 04/17/17 History Albuterol Nebulized [Ventolin 2.5 mg INHALATION RT-QID PRN 08/31/16 04/17/17 History Nebulized] Gabapentin [Neurontin] 800 mg PO QID 08/31/16 04/17/17 History traMADol HCl [Ultram] 1 tab PO TID PRN 04/17/17 04/17/17 History Allergies Allergy/AdvReac Type Severity Reaction Status Date / Time No Known Allergies Allergy Verified 04/17/17 18:56 Physical Exam Vitals: Vital Signs Temp Pulse Pulse Resp BP BP Pulse Ox 04/18/17 07:00 97.9 F 62 16 106/69 93 L 04/17/17 23:00 97.2 F L 65 16 137/81 97 04/17/17 22:14 98.6 F 66 18 120/81 97 04/17/17 20:49 71 18 134/70 97 04/17/17 19:45 90 18 106/81 97 04/17/17 19:26 100.5 F H 91 16 117/77 98 04/17/17 18:54 99.0 F 93 18 121/74 98 Intake and Output 04/17/17 04/18/17 04/18/17 22:59 06:59 14:59 Intake Total 1500 0 Balance 1500 0 Intake: Amount of Fluid Infused ( 1500 ml) Oral 0 Other: Voiding Method Toilet # Voids 1 Weight 64 kg General appearance: The patient is alert, oriented, in no acute distress. HET: Head is normocephalic and atraumatic. Pupils are equal and reactive. Oropharynx is clear without lesions. Neck: Supple without lymphadenopathy. Trachea midline. Heart: S1 S2. Regular rate and rhythm. Lungs: No crackles or wheezes are heard. Abdomen: Soft, mild epigastric tenderness, nondistended with bowel sounds. No peritoneal signs. No palpable organomegaly or masses. Extremities: Normal skin color and turgor. No cyanosis, rash, ulceration, clubbing, or edema. Radial and pedal pulses are 2/4 bilaterally. Neurological: No focal deficits. Strength and sensation are grossly intact. Results CBC & Chem 7: 04/17/17 20:10 04/17/17 20:10 Labs: Abnormal Lab Results - Last 24 Hours (Table) 04/17/17 04/17/17 04/17/17 Range/Units 02:05 20:10 20:10 WBC 17.8 H (3.8-10.6) k/uL Neutrophils # 13.5 H (1.3-7.7) k/uL Chloride 111 H (98-107) mmol/L Carbon Dioxide 20 L (22-30) mmol/L Creatinine 1.20 H (0.52-1.04) mg/dL Glucose 118 H (74-99) mg/dL Lipase >94814 H (23-300) U/L Urine Blood Trace H (Negative) Ur Leukocyte Esterase Small H (Negative) Urine Bacteria Rare H (None) /hpf Urine Mucus Rare H (None) /hpf CT scan - abdomen: report reviewed (Dr. Clark) Assessment and Plan (1) Acute on chronic pancreatitis Narrative/Plan: Etiology unclear possible autoimmune Status: Acute (2) Steatorrhea, pancreatic Narrative/Plan: Possible steatorrhea with reported foul smelling greasy bowel movements. Status: Acute Plan: 1. Autominnume workup ADAN subclass1-4 IgG. Repeat pancreatic enzymes. Full liquid diet and advance as tolerated contingent on improvement of pancreatic enzymes. 2. RTO 1- 2 weeks after discharge discussion of outpatient endoscopic ultrasound. Fecal testing for stearrohea. Thank you for this kind referral and the opportunity to participate in the care of your patient. This consultation was discussed with Dr. Clark. The impression and plan of care have been directed as dictated.
[2017-04-18 11:13] LABS: Basophils # (A) 0.1 k/uL (0-0.2); Basophils % (A) 0 %; CH 29.7; CHCM 32.8; Eosinophils # (A) 0.3 k/uL (0-0.7); Eosinophils % (A) 2 %; HCT 39.7 % (34.0-46.0); HDW 2.32; HGB 13.3 gm/dL (11.4-16.0); Luc # (Auto) 0.17; Luc % (Auto) 1; Lymphocytes # (A) 3.1 k/uL (1.0-4.8); Lymphocytes % (A) 25 %; MCH 30.6 pg (25.0-35.0); MCHC 33.6 g/dL (31.0-37.0); Mean Platelet Volume 7.2; Monocytes # (A) 0.7 k/uL (0-1.0); Monocytes % (A) 6 %; Neutrophils # (A) 8.3 k/uL (1.3-7.7); Neutrophils % (A) 66 %; RBC 4.36 m/uL (3.80-5.40); RDW 13.3 % (11.5-15.5); WBC 12.7 k/uL (3.8-10.6); WBC (Perox) 12.29
[2017-04-18 16:59] LABS: ANA w/Reflex to Titer NEGATIVE (NEGATIVE)
--- NOTE | 2017-04-19 00:07 | P.HPIM ---
History of Present Illness H&P Date: 04/18/17 Chief Complaint: Abdominal pain 61-year-old female with a past medical history of rheumatoid arthritis- not on any medication, recurrent episodes of pancreatitis, calculus open cholecystectomy 16-17 years ago, peptic ulcer disease presents with acute epigastric abdominal pain nausea vomiting nonbloody diarrhea x [address] abdomen and pelvis inflammatory changes around the body and head of pancreas with calcifications consistent with acute and chronic pancreatitis. Bile duct not dilated. Patient was found to have significantly elevated lipase level greater than 20, 000. Patient denied any alcohol abuse. Patient does have history of gallstones and had cholecystectomy several years ago. Denied any history of [id number] pain medication use. Patient does complain of greasy stools sometimes. Denied any unintentional weight loss. Review of Systems CONSTITUTIONAL: No fever, no malaise, no fatigue. HEENT: No recent visual problems or hearing problems. Denied any sore throat. CARDIOVASCULAR: No chest pain, orthopnea, PND, no palpitations, no syncope. PULMONARY: , no hemoptysis. GASTROINTESTINAL: Positive diarrhea, patient does have nausea and abdominal pain. NEUROLOGICAL: No headaches, no weakness, no numbness. HEMATOLOGICAL: Denies any bleeding or petechiae. GENITOURINARY: Denies any burning micturition, frequency, or urgency. MUSCULOSKELETAL/RHEUMATOLOGICAL: Denies any joint pain, swelling, or any muscle pain. ENDOCRINE: Denies any polyuria or polydipsia. The rest of the 14-point review of systems is negative. Past Medical History Past Medical History: COPD, CVA/TIA, GERD/Reflux, Hypertension, Osteoarthritis ( OA) Additional Past Medical History / Comment(s): bronchitis, pancreatitis, past anemia unknown cause, gastric ulcer, generalized arthritis History of Any Multi-Drug Resistant Organisms: None Reported Past Surgical History: Appendectomy, Back Surgery, Orthopedic Surgery, Tonsillectomy Additional Past Surgical History / Comment(s): 6 back surgeries with 2 fusions, Right oophorectomy due to ectopic , EGD/colonoscopy, right leg alice inserted from broken leg Past Anesthesia/Blood Transfusion Reactions: No Reported Reaction Additional Past Anesthesia/Blood Transfusion Reaction / Comment(s): Pt has received blood in past without reaction. Past Psychological History: No Psychological Hx Reported Additional Psychological History / Comment(s): Pt resides with her spouse. She is independent. Smoking Status: Current every day smoker Past Alcohol Use History: None Reported Additional Past Alcohol Use History / Comment(s): smokes 5-6 cigarettes per day Past Drug Use History: None Reported - Past Family History Father Family Medical History: Cancer, Liver Disease Additional Family Medical History / Comment(s): from liver cancer Mother Family Medical History: Cancer, CVA/TIA, Hypertension Additional Family Medical History / Comment(s): Mother had breast and colon cancer. She of liver cancer at the age of 77 yrs. Medications and Allergies Home Medications Medication Instructions Recorded Confirmed Type Lisinopril 40 mg PO QAM 01/22/15 04/17/17 History Albuterol Inhaler [Ventolin Hfa 1 - 2 puff INHALATION RT-Q6H PRN 07/15/16 History Inhaler] amLODIPine [Norvasc] 10 mg PO QAM 07/15/16 04/17/17 History Albuterol Nebulized [Ventolin 2.5 mg INHALATION RT-QID PRN 08/31/16 04/17/17 History Nebulized] Gabapentin [Neurontin] 800 mg PO QID 08/31/16 04/17/17 History traMADol HCl [Ultram] 1 tab PO TID PRN 04/17/17 04/17/17 History Allergies Allergy/AdvReac Type Severity Reaction Status Date / Time No Known Allergies Allergy Verified 04/17/17 18:56 Physical Exam Vitals: Vital Signs Temp Pulse Pulse Resp BP BP Pulse Ox 04/18/17 07:00 97.9 F 62 16 106/69 93 L 04/17/17 23:00 97.2 F L 65 16 137/81 97 04/17/17 22:14 98.6 F 66 18 120/81 97 04/17/17 20:49 71 18 134/70 97 04/17/17 19:45 90 18 106/81 97 04/17/17 19:26 100.5 F H 91 16 117/77 98 04/17/17 18:54 99.0 F 93 18 121/74 98 Intake and Output 04/18/17 04/18/17 04/18/17 06:59 14:59 22:59 Intake Total 0 1000 Balance 0 1000 Intake: Intake, IV Titration 1000 Amount Sodium Chloride 0.9% 1, 1000 000 ml @ 125 mls/hr IV . Q8H [facility] Rx#:[id number] Oral 0 Other: Voiding Method Toilet # Voids 1 Weight 64 kg Patient Weight 04/19/17 06:59 Weight 64 kg PHYSICAL EXAMINATION: Patient is lying in the bed comfortably, no acute distress, awake alert and oriented.. HEENT: Normocephalic. Neck is supple. Pupils reactive. Nostrils clear. Oral cavity is moist. Ears reveal no drainage. Neck reveals no JVD, carotid bruits, or thyromegaly. CHEST EXAMINATION: Trachea is central. Symmetrical expansion. Lung lerma clear to auscultation and percussion. CARDIAC: Normal S1, S2 with no gallops. No murmurs ABDOMEN: Soft. Bowel sounds normal. No organomegaly. No abdominal bruits. Mild epigastric tenderness Extremities reveal no edema. No clubbing or cyanosis Neurologically awake, alert, oriented x3 with well-coordinated movements. Skin: no rash or skin lesions Musculoskeletal: no joint swelling or deformity. Results CBC & Chem 7: 04/18/17 10:34 04/17/17 20:10 Labs: Abnormal Lab Results - Last 24 Hours (Table) 04/17/17 04/17/17 04/17/17 Range/Units 02:05 20:10 20:10 WBC 17.8 H (3.8-10.6) k/uL Neutrophils # 13.5 H (1.3-7.7) k/uL Chloride 111 H (98-107) mmol/L Carbon Dioxide 20 L (22-30) mmol/L Creatinine 1.20 H (0.52-1.04) mg/dL Glucose 118 H (74-99) mg/dL Triglycerides (<150) mg/dL Lipase >02984 H (23-300) U/L Urine Blood Trace H (Negative) Ur Leukocyte Esterase Small H (Negative) Urine Bacteria Rare H (None) /hpf Urine Mucus Rare H (None) /hpf 04/18/17 04/18/17 Range/Units 10:34 10:34 WBC 12.7 H (3.8-10.6) k/uL Neutrophils # 8.3 H (1.3-7.7) k/uL Chloride (98-107) mmol/L Carbon Dioxide (22-30) mmol/L Creatinine (0.52-1.04) mg/dL Glucose (74-99) mg/dL Triglycerides 225 H (<150) mg/dL Lipase 4083 H (23-300) U/L Urine Blood (Negative) Ur Leukocyte Esterase (Negative) Urine Bacteria (None) /hpf Urine Mucus (None) /hpf Thrombosis Risk Factor Assmnt - DVT/VTE Prophylaxis DVT/VTE Prophylaxis: Pharmacologic Prophylaxis ordered - Choose All That Apply Any of the Below Risk Factors Present?: Yes Each Risk Factor Represents 2 Points: Age 61-74 years Thrombosis Risk Factor Assessment Total Risk Factor Score: 2 Thrombosis Risk Factor Assessment Level: Low Risk Assessment and Plan Plan: #1 acute pancreatitis. No exact etiology unknown at this time. #2 History of gallstones and cholecystectomy #3 Recurrent pancreatitis #4 diarrhea. Possible steatorrhea. C. diff negative DVT prophylaxis History of GERD COPD and osteoarthritis. Plan: Patient will be continued on IV hydration. And pain management. Patient was seen by GI and autoimmune and tumor marker workup was ordered. Patient is to follow the GI clinic for further evaluation of recurrent pancreatitis. We will continue the current management and further recommendations based on the clinical course
[2017-04-19] MEDS: HYDROmorphone 1 MG/ML 1 ML SYRINGE IV PRN ×8 (00:54→21:18)
[2017-04-19] MEDS: SODIUM CHLORIDE 0.9% 1,000 ML IV SCH ×4 (06:06→22:36)
[2017-04-19 09:26] LABS: IgG Subclass 3 31.4 mg/dL (11.0-85.0)
[2017-04-19] MEDS: ONDANSETRON 4 MG/2 ML VIAL IVP PRN ×2 (09:55→23:16)
--- NOTE | 2017-04-19 11:32 | P.PN ---
Subjective Principal diagnosis: Pancreatitis 61-year-old female admitted with idiopathic pancreatitis. History of multiple pancreatitis attacks in the past with unclear etiology. History of chronic diarrhea. Triglycerides 200 range. ADAN screen negative. Additional serology for autoimmune workup still in progress. Lipase improved down to 600 range. Feels better but pain still present. No emesis. Afebrile. Clostridium difficile testing negative. Objective - Vital Signs Vital signs: Vital Signs Temp 97.0 F L 04/19/17 07:00 Pulse 65 04/19/17 07:00 Resp 18 04/19/17 07:00 BP 122/72 04/19/17 07:00 Pulse Ox 95 04/19/17 07:00 Intake & Output 04/18/17 04/19/17 04/19/17 18:59 06:59 18:59 Intake Total 1000 1100 Balance 1000 1100 Weight 64 kg Intake: Intake, IV Titration 1000 Amount Sodium Chloride 0.9% 1, 1000 000 ml @ 125 mls/hr IV . Q8H [facility] Rx#:[id number] Oral 1100 Other: # Voids 4 1 - Exam General appearance: The patient is alert, oriented, in no acute distress. HET: Head is normocephalic and atraumatic. Pupils are equal and reactive. Oropharynx is clear without lesions. Neck: Supple without lymphadenopathy. Trachea midline. Heart: S1 S2. Regular rate and rhythm. Lungs: No crackles or wheezes are heard. Abdomen: Soft, mild midepigastric tenderness, nondistended with bowel sounds. No peritoneal signs. No palpable organomegaly or masses. Extremities: Normal skin color and turgor. No cyanosis, rash, ulceration, clubbing, or edema. Radial and pedal pulses are 2/4 bilaterally. Neurological: No focal deficits. Strength and sensation are grossly intact. - Labs CBC & Chem 7: 04/18/17 10:34 04/17/17 20:10 Labs: Abnormal Lab Results - Last 24 Hours (Table) 04/18/17 04/18/17 04/19/17 Range/Units 10:34 10:34 08:11 WBC 12.7 H (3.8-10.6) k/uL Neutrophils # 8.3 H (1.3-7.7) k/uL Triglycerides 225 H (<150) mg/dL Lipase 4083 H 605 H (23-300) U/L Microbiology - Last 24 Hours (Table) 04/17/17 20:10 Blood Culture - Preliminary Blood No Growth after 24 hours Assessment and Plan (1) Acute on chronic pancreatitis Narrative/Plan: Etiology unclear possible autoimmune Status: Acute (2) Steatorrhea, pancreatic Narrative/Plan: Possible steatorrhea with reported foul smelling greasy bowel movements. Status: Acute Plan: 1. Autominnume workup initiated. Agreeable for discharge. Low fat diet. 2. RTO 1- 2 weeks after discharge discussion of outpatient endoscopic ultrasound. Fecal testing for possible stearrohea will be discussed at that time. Assessment and plan a care discussed with Dr. Clark
[2017-04-19 11:35] LABS: IgG Subclass 4 61.7 mg/dL (3.0-175.0)
[2017-04-20] MEDS: HYDROmorphone 1 MG/ML 1 ML SYRINGE IV PRN ×4 (00:10→09:05)
[2017-04-20] MEDS: SODIUM CHLORIDE 0.9% 1,000 ML IV SCH ×4 (05:53→22:25)
[2017-04-20] MEDS: ONDANSETRON 4 MG/2 ML VIAL IVP PRN ×2 (09:06→14:35)
[2017-04-20] MEDS: traMADol 50 MG TAB PO PRN ×3 (11:26→23:39)
[2017-04-20] MEDS: HYDROmorphone 1 MG/ML 1 ML SYRINGE IVP PRN ×3 (12:59→20:34)
[2017-04-20] MEDS ORDERED: ONDANSETRON 4 MG/2 ML VIAL IVP PRN (14:36)
[2017-04-20] MEDS ORDERED: HYDROmorphone 1 MG/ML 1 ML SYRINGE IVP PRN (16:26)
[2017-04-20] MEDS: LORazepam 2 MG/ML SYRINGE IV PRN (18:16)
--- NOTE | 2017-04-20 23:56 | P.PN ---
Subjective Principal diagnosis: Acute Pancreatitis 61-year-old female with a past medical history of rheumatoid arthritis- not on any medication, recurrent episodes of pancreatitis, calculus open cholecystectomy 16-17 years ago, peptic ulcer disease presents with acute epigastric abdominal pain nausea vomiting nonbloody diarrhea x [address] abdomen and pelvis inflammatory changes around the body and head of pancreas with calcifications consistent with acute and chronic pancreatitis. Bile duct not dilated. Patient was found to have significantly elevated lipase level greater than 20, 000. Patient denied any alcohol abuse. Patient does have history of gallstones and had cholecystectomy several years ago. Denied any history of [id number] pain medication use. Patient does complain of greasy stools sometimes. Denied any unintentional weight loss. 04/19/2017 Patient is still complaining of abdominal pain. Lipase level improved to 4083 yesterday and 605 today. No fever no chills. Patient is not tolerating liquid diet very well and still having nausea and abdominal pain. No chest pain or short of breath. Patient was able to get to the bathroom. Objective - Vital Signs Vital signs: Vital Signs Temp 98.8 F 04/19/17 15:00 Pulse 73 04/19/17 15:00 Resp 16 04/19/17 16:00 BP 133/78 04/19/17 15:00 Pulse Ox 96 04/19/17 15:00 Intake & Output 04/19/17 04/19/17 04/20/17 06:59 18:59 06:59 Intake Total 1100 1040 Balance 1100 1040 Weight 64 kg Intake: Intake, IV Titration 800 Amount Sodium Chloride 0.9% 1, 800 000 ml @ 125 mls/hr IV . Q8H [facility] Rx#:[id number] Oral 1100 240 Other: Voiding Method Toilet # Voids 1 3 3 - Exam Patient is lying in the bed comfortably, no acute distress, awake alert and oriented.. HEENT: Normocephalic. Neck is supple. Pupils reactive. Nostrils clear. Oral cavity is moist. Ears reveal no drainage. Neck reveals no JVD, carotid bruits, or thyromegaly. CHEST EXAMINATION: Trachea is central. Symmetrical expansion. Lung lerma clear to auscultation and percussion. CARDIAC: Normal S1, S2 with no gallops. No murmurs ABDOMEN: Soft. Bowel sounds normal. No organomegaly. No abdominal bruits. Mild epigastric tenderness Extremities reveal no edema. No clubbing or cyanosis Neurologically awake, alert, oriented x3 with well-coordinated movements. Skin: no rash or skin lesions Musculoskeletal: no joint swelling or deformity. - Labs CBC & Chem 7: 04/18/17 10:34 04/17/17 20:10 Labs: Abnormal Lab Results - Last 24 Hours (Table) 04/19/17 Range/Units 08:11 Lipase 605 H (23-300) U/L Microbiology - Last 24 Hours (Table) 04/17/17 20:10 Blood Culture - Preliminary Blood No Growth after 24 hours Assessment and Plan Plan: #1 acute pancreatitis. No exact etiology unknown at this time. Lipase level improved to 605. Still having abdominal pain. #2 History of gallstones and cholecystectomy #3 Recurrent pancreatitis #4 diarrhea. Possible steatorrhea. C. diff negative DVT prophylaxis History of GERD COPD and osteoarthritis. Plan: Patient will be continued on IV hydration. And pain management. Patient was seen by GI and autoimmune and tumor marker workup was ordered. Patient is to follow the GI clinic for further evaluation of recurrent pancreatitis. We will continue the current management and further recommendations based on the clinical course
--- NOTE | 2017-04-20 23:57 | P.PN ---
Subjective Principal diagnosis: Acute Pancreatitis 61-year-old female with a past medical history of rheumatoid arthritis- not on any medication, recurrent episodes of pancreatitis, calculus open cholecystectomy 16-17 years ago, peptic ulcer disease presents with acute epigastric abdominal pain nausea vomiting nonbloody diarrhea x [address] abdomen and pelvis inflammatory changes around the body and head of pancreas with calcifications consistent with acute and chronic pancreatitis. Bile duct not dilated. Patient was found to have significantly elevated lipase level greater than 20, 000. Patient denied any alcohol abuse. Patient does have history of gallstones and had cholecystectomy several years ago. Denied any history of [id number] pain medication use. Patient does complain of greasy stools sometimes. Denied any unintentional weight loss. 04/19/2017 Patient is still complaining of abdominal pain. Lipase level improved to 4083 yesterday and 605 today. No fever no chills. Patient is not tolerating liquid diet very well and still having nausea and abdominal pain. No chest pain or short of breath. Patient was able to get to the bathroom. 04/20/2017 patient is still complaining of abdominal pain and requesting IV pain medications. He is ambulating in the hallway. No fever no chills. Started on liquid diet but tolerating only small quantity. Anticipate discharge in next 24 hours. Objective - Vital Signs Vital signs: Vital Signs Temp 98.0 F 04/20/17 15:00 Pulse 68 04/20/17 15:00 Resp 18 04/20/17 16:00 BP 146/82 04/20/17 15:00 Pulse Ox 97 04/20/17 15:00 Intake & Output 04/20/17 04/20/17 04/21/17 06:59 18:59 06:59 Intake Total 120 Balance 120 Intake: Oral 120 Other: Voiding Method Toilet # Voids 0 2 # Bowel Movements 0 - Exam Patient is lying in the bed comfortably, no acute distress, awake alert and oriented.. HEENT: Normocephalic. Neck is supple. Pupils reactive. Nostrils clear. Oral cavity is moist. Ears reveal no drainage. Neck reveals no JVD, carotid bruits, or thyromegaly. CHEST EXAMINATION: Trachea is central. Symmetrical expansion. Lung lerma clear to auscultation and percussion. CARDIAC: Normal S1, S2 with no gallops. No murmurs ABDOMEN: Soft. Bowel sounds normal. No organomegaly. No abdominal bruits. Mild epigastric tenderness Extremities reveal no edema. No clubbing or cyanosis Neurologically awake, alert, oriented x3 with well-coordinated movements. Skin: no rash or skin lesions Musculoskeletal: no joint swelling or deformity. - Labs CBC & Chem 7: 04/18/17 10:34 04/17/17 20:10 Labs: Microbiology - Last 24 Hours (Table) 04/17/17 20:10 Blood Culture - Preliminary Blood No Growth after 48 hours Assessment and Plan Plan: #1 acute pancreatitis. No exact etiology unknown at this time. Lipase level improved to 605. Still having abdominal pain. #2 History of gallstones and cholecystectomy #3 Recurrent pancreatitis #4 diarrhea. Possible steatorrhea. C. diff negative DVT prophylaxis History of GERD COPD and osteoarthritis. Plan: Patient will be continued on IV hydration. And pain management. Limit IV pain medication. Patient was seen by GI and autoimmune and tumor marker workup was ordered. Patient is to follow the GI clinic for further evaluation of recurrent pancreatitis. We will continue the current management and further recommendations based on the clinical course
[2017-04-21] MEDS: HYDROmorphone 1 MG/ML 1 ML SYRINGE IVP PRN ×4 (00:39→12:57)
[2017-04-21] MEDS: LORazepam 2 MG/ML SYRINGE IV PRN ×2 (00:44→07:54)
[2017-04-21] MEDS: SODIUM CHLORIDE 0.9% 1,000 ML IV SCH ×2 (05:35→12:58)
[2017-04-21 08:25] LABS: Basophils # (A) 0.1 k/uL (0-0.2); Basophils % (A) 1 %; CH 29.9; Eosinophils # (A) 0.5 k/uL (0-0.7); Eosinophils % (A) 5 %; HCT 40.6 % (34.0-46.0); HGB 13.7 gm/dL (11.4-16.0); Luc # (Auto) 0.18; Luc % (Auto) 2; Lymphocytes # (A) 2.5 k/uL (1.0-4.8); Lymphocytes % (A) 27 %; MCH 30.6 pg (25.0-35.0); MCHC 33.7 g/dL (31.0-37.0); MCV 90.8 fL (80.0-100.0); Mean Platelet Volume 6.9; Monocytes # (A) 0.4 k/uL (0-1.0); Monocytes % (A) 4 %; Neutrophils # (A) 5.6 k/uL (1.3-7.7); Neutrophils % (A) 61 %; RBC 4.48 m/uL (3.80-5.40); WBC 9.3 k/uL (3.8-10.6); WBC (Perox) 9.61
[2017-04-21 08:49] LABS: Anion Gap 9 mmol/L; Blood Urea Nitrogen 10 mg/dL (7-17); Calcium 9.2 mg/dL (8.4-10.2); Carbon Dioxide 22 mmol/L (22-30); Chloride 110 mmol/L (98-107); Glucose 115 mg/dL (74-99); Non-African American GFR(MDRD) >60 (>60 ml/min/1.73 sqM); Potassium 4.1 mmol/L (3.5-5.1); Sodium 141 mmol/L (137-145)
[2017-04-21 15:27] VITALS: BP 177/86; PULSE 86; RESP 16; TEMP 99.2
--- NOTE | 2017-04-22 01:35 | P.DS ---
Providers Date of admission: 04/17/17 21:47 Expected date of discharge: 04/21/17 Attending physician: Alexsander Ashton Primary care physician: Stated None Hospital Course: #1 acute pancreatitis. No exact etiology unknown at this time. Lipase level improved from 20K to 605. Denied abdominal pain no #2 History of gallstones and cholecystectomy #3 Recurrent pancreatitis #4 diarrhea. Possible steatorrhea. C. diff negative DVT prophylaxis History of GERD COPD and osteoarthritis. 61-year-old female with a past medical history of rheumatoid arthritis- not on any medication, recurrent episodes of pancreatitis, calculus open cholecystectomy 16-17 years ago, peptic ulcer disease presents with acute epigastric abdominal pain nausea vomiting nonbloody diarrhea x [address] abdomen and pelvis inflammatory changes around the body and head of pancreas with calcifications consistent with acute and chronic pancreatitis. Bile duct not dilated. Patient was found to have significantly elevated lipase level greater than 20, 000. Patient denied any alcohol abuse. Patient does have history of gallstones and had cholecystectomy several years ago. Denied any history of [id number] pain medication use. Patient does complain of greasy stools sometimes. Denied any unintentional weight loss. 04/19/2017 Patient is still complaining of abdominal pain. Lipase level improved to 4083 yesterday and 605 today. No fever no chills. Patient is not tolerating liquid diet very well and still having nausea and abdominal pain. No chest pain or short of breath. Patient was able to get to the bathroom. 04/20/2017 patient is still complaining of abdominal pain and requesting IV pain medications. He is ambulating in the hallway. No fever no chills. Started on liquid diet but tolerating only small quantity. Anticipate discharge in next 24 hours.Plan: 04/21/2017 Patient says that her abdominal pain is much improved now and wants to be discharged home patient is tolerating diet. And ambulating the hallway. Patient was continued on IV hydration. And pain management. Limit IV pain medication. Patient was seen by GI and autoimmune and tumor marker workup was ordered. Patient is to follow the GI clinic for further evaluation of recurrent pancreatitis. Patient is stable to be discharged home. PHYSICAL EXAMINATION: Patient is lying in the bed comfortably, no acute distress, awake alert and oriented.. HEENT: Normocephalic. Neck is supple. Pupils reactive. Nostrils clear. Oral cavity is moist. Ears reveal no drainage. Neck reveals no JVD, carotid bruits, or thyromegaly. CHEST EXAMINATION: Trachea is central. Symmetrical expansion. Lung lerma clear to auscultation and percussion. CARDIAC: Normal S1, S2 with no gallops. No murmurs ABDOMEN: Soft. Bowel sounds normal. No organomegaly. No abdominal bruits. Extremities reveal no edema. No clubbing or cyanosis Neurologically awake, alert, oriented x3 with well-coordinated movements. Skin: no rash or skin lesions Musculoskeletal: no joint swelling or deformity. Patient Condition at Discharge: Fair Plan - Discharge Summary New Discharge Prescriptions: New HYDROcodone/APAP 5-325MG [[place] 5-325] 1 tab PO Q6HR PRN #30 tab PRN Reason: Pain Continue Lisinopril 40 mg PO QAM amLODIPine [Norvasc] 10 mg PO QAM Albuterol Inhaler [Ventolin Hfa Inhaler] 1 - 2 puff INHALATION RT-Q6H PRN PRN Reason: Shortness Of Breath Gabapentin [Neurontin] 800 mg PO QID Albuterol Nebulized [Ventolin Nebulized] 2.5 mg INHALATION RT-QID PRN PRN Reason: Shortness Of Breath Discontinued traMADol HCl [Ultram] 1 tab PO TID PRN PRN Reason: Pain Discharge Medication List Lisinopril 40 mg PO QAM 01/22/15 [History] Albuterol Inhaler [Ventolin Hfa Inhaler] 1 - 2 puff INHALATION RT-Q6H PRN [History] amLODIPine [Norvasc] 10 mg PO QAM 07/15/16 [History] Albuterol Nebulized [Ventolin Nebulized] 2.5 mg INHALATION RT-QID PRN 08/31/16 [ History] Gabapentin [Neurontin] 800 mg PO QID 08/31/16 [History] HYDROcodone/APAP 5-325MG [[place] 5-325] 1 tab PO Q6HR PRN #30 tab 04/21/17 [Rx] Follow up Appointment(s)/Referral(s): Zoya Clark MD [STAFF PHYSICIAN] - 2 Weeks None,Stated [Primary Care Provider] - 1-2 days Patient Instructions/Handouts: Pancreatitis (DC) Discharge Disposition: HOME SELF-CARE
== END 2017-04-21 15:57 | disposition home or self-care (01) | DRG 439 ==
LOC: EC 18:35 → 4MS4W 21:47
PROVIDERS: ADMIT Hospitalist; ATTEND Hospitalist
DX: K86.1 Other chronic pancreatitis (principal); K90.3 Pancreatic steatorrhea; I10 Essential (primary) hypertension; R19.7 Diarrhea, unspecified; K21.9 Gastro-esophageal reflux disease without esophagitis; J44.9 Chronic obstructive pulmonary disease, unspecified; M19.90 Unspecified osteoarthritis, unspecified site; M06.9 Rheumatoid arthritis, unspecified; F17.210 Nicotine dependence, cigarettes, uncomplicated; Z87.11 Personal history of peptic ulcer disease; Z87.19 Personal history of other diseases of the digestive system; Z79.899 Other long term (current) drug therapy; Z80.0 Family history of malignant neoplasm of digestive organs; Z82.49 Family history of ischemic heart disease and other diseases of the circulatory system; Z80.3 Family history of malignant neoplasm of breast; Z86.73 Personal history of transient ischemic attack (TIA), and cerebral infarction without residual deficits; Z79.51 Long term (current) use of inhaled steroids; Z90.89 Acquired absence of other organs; Z90.49 Acquired absence of other specified parts of digestive tract; Z98.1 Arthrodesis status; Z90.721 Acquired absence of ovaries, unilateral; Z87.828 Personal history of other (healed) physical injury and trauma
CPT/HCPCS: 36415; 74000; 74176; 80048; 80053; 81001; 82150; 82787; 83605; 83690; 84478; 85025; 86038; 87040; 87324; 96374; 96375; 99285

== ENCOUNTER 2017-05-04 10:05 | Emergency (ER) | payer BC ==
[2017-05-04 10:09] VITALS: BP 137/67; PULSE 77; RESP 18; TEMP 97.9
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
== END 2017-05-04 10:45 | disposition home or self-care (01) ==
LOC: EC 10:05
DX: M17.11 Unilateral primary osteoarthritis, right knee (principal); I10 Essential (primary) hypertension; F17.200 Nicotine dependence, unspecified, uncomplicated; Z86.73 Personal history of transient ischemic attack (TIA), and cerebral infarction without residual deficits; Z79.899 Other long term (current) drug therapy
CPT/HCPCS: 99283

== ENCOUNTER 2017-07-29 14:02 | Emergency (ER) | payer BC ==
[2017-07-29] MEDS ORDERED: HYDROmorphone 1 MG/ML 1 ML SYRINGE IVP STA (14:18)
[2017-07-29] MEDS ORDERED: FAMOTIDINE 20 MG/2 ML VIAL IV STA (14:18)
[2017-07-29] MEDS ORDERED: ONDANSETRON 4 MG/2 ML VIAL IVP STA (14:18)
[2017-07-29] MEDS ORDERED: SODIUM CHLORIDE 0.9% 1,000 ML IV STA (14:18)
--- NOTE | 2017-07-29 14:21 | ED ---
General Adult HPI - General Chief complaint: Abdominal Pain Stated complaint: Abd Pain/Vomiting Time Seen by Provider: 07/29/17 14:11 Source: patient, RN notes reviewed Mode of arrival: ambulatory Limitations: no limitations - History of Present Illness Initial comments: Patient is a pleasant [age]-year-old female presenting to the emergency Department with abdominal discomfort. Symptoms have progressed over the past 4 days. Patient has had several episodes of vomiting. Discomfort is epigastric and there is mild radiation towards the back. Patient has had similar symptoms approximately 6 times previously associated with pancreatitis. Patient is not a drinker and never was. Original pancreatitis was associated with gallstones. No fever. Patient has mild loose stools. - Related Data Home Medications Medication Instructions Recorded Confirmed Lisinopril 40 mg PO QAM 01/22/15 07/29/17 Albuterol Inhaler [Ventolin Hfa 1 - 2 puff INHALATION RT-Q6H PRN 07/15/16 Inhaler] Albuterol Nebulized [Ventolin 2.5 mg INHALATION RT-QID PRN 08/31/16 07/29/17 Nebulized] Gabapentin [Neurontin] 800 mg PO QID 08/31/16 07/29/17 HYDROcodone/APAP 5-325MG [[place] 1 - 2 tab PO Q6HR PRN 07/04/17 07/29/17 5-325] Previous Rx's Medication Instructions Recorded guaiFENesin-Coden 100-10MG/5ML 10 ml PO Q6HR PRN #150 ml 07/09/17 [Robitussin AC] Ondansetron Odt [Zofran Odt] 4 mg PO Q8HR PRN #10 tab 07/29/17 Allergies Allergy/AdvReac Type Severity Reaction Status Date / Time No Known Allergies Allergy Verified 07/29/17 14:11 Review of Systems ROS Statement: Those systems with pertinent positive or pertinent negative responses have been documented in the HPI. ROS Other: All systems not noted in ROS Statement are negative. Constitutional: Denies: fever Eyes: Denies: eye pain ENT: Denies: ear pain Respiratory: Denies: cough Cardiovascular: Denies: chest pain Endocrine: Denies: fatigue Gastrointestinal: Reports: abdominal pain, nausea, vomiting Genitourinary: Denies: dysuria Musculoskeletal: Denies: arthralgia Skin: Denies: rash Neurological: Denies: weakness Past Medical History Past Medical History: COPD, CVA/TIA, GERD/Reflux, Hypertension, Osteoarthritis ( OA) Additional Past Medical History / Comment(s): bronchitis, pancreatitis, past anemia unknown cause, gastric ulcer, generalized arthritis History of Any Multi-Drug Resistant Organisms: None Reported Past Surgical History: Appendectomy, Back Surgery, Orthopedic Surgery, Tonsillectomy Additional Past Surgical History / Comment(s): 6 back surgeries with 2 fusions, Right oophorectomy due to ectopic , EGD/colonoscopy, right leg alice inserted from broken leg Past Anesthesia/Blood Transfusion Reactions: No Reported Reaction Additional Past Anesthesia/Blood Transfusion Reaction / Comment(s): Pt has received blood in past without reaction. Past Psychological History: No Psychological Hx Reported Smoking Status: Current every day smoker Past Alcohol Use History: None Reported Past Drug Use History: None Reported - Past Family History Father Family Medical History: Cancer, Liver Disease Additional Family Medical History / Comment(s): from liver cancer Mother Family Medical History: Cancer, CVA/TIA, Hypertension Additional Family Medical History / Comment(s): Mother had breast and colon cancer. She of liver cancer at the age of 77 yrs. General Exam Limitations: no limitations General appearance: alert, in no apparent distress Head exam: Present: atraumatic Eye exam: Present: normal appearance, PERRL ENT exam: Present: normal oropharynx Neck exam: Present: normal inspection Respiratory exam: Present: normal lung sounds bilaterally Cardiovascular Exam: Present: regular rate, normal rhythm Expanded Peripheral pulses: 2+: Posterior Tibialis (R), Posterior Tibialis (L) GI/Abdominal exam: Present: soft, tenderness (Moderate epigastric tenderness with some guarding.), normal bowel sounds. Absent: distended, rebound, rigid, pulsatile mass Extremities exam: Present: normal inspection. Absent: pedal edema, calf tenderness Neurological exam: Present: alert Psychiatric exam: Present: normal affect, normal mood Skin exam: Present: normal color Course Vital Signs 07/29/17 14:05 Temperature 99.2 F Pulse Rate 107 H Respiratory 18 Rate Blood Pressure 176/79 O2 Sat by Pulse 99 Oximetry Medical Decision Making - Medical Decision Making Patient reexamined and improved. Patient resting comfortably in bed. Patient is updated on results. - Lab Data Result diagrams: 07/29/17 14:36 07/29/17 14:36 Lab Results 07/29/17 07/29/17 07/29/17 Range/Units 14:36 14:36 14:36 WBC 11.2 H (3.8-10.6) k/uL RBC 5.03 (3.80-5.40) m/uL Hgb 14.9 (11.4-16.0) gm/dL Hct 46.8 H (34.0-46.0) % MCV 92.9 (80.0-100.0) fL MCH 29.6 (25.0-35.0) pg MCHC 31.9 (31.0-37.0) g/dL RDW 15.3 (11.5-15.5) % Plt Count 490 H (150-450) k/uL Neutrophils % 73 % Lymphocytes % 20 % Monocytes % 4 % Eosinophils % 2 % Basophils % 0 % Neutrophils # 8.2 H (1.3-7.7) k/uL Lymphocytes # 2.2 (1.0-4.8) k/uL Monocytes # 0.4 (0-1.0) k/uL Eosinophils # 0.2 (0-0.7) k/uL Basophils # 0.0 (0-0.2) k/uL PT 10.4 (9.0-12.0) sec INR 1.0 (<1.2) APTT 24.3 (22.0-30.0) sec Sodium 141 (137-145) mmol/L Potassium 4.7 (3.5-5.1) mmol/L Chloride 107 (98-107) mmol/L Carbon Dioxide 21 L (22-30) mmol/L Anion Gap 13 mmol/L BUN 13 (7-17) mg/dL Creatinine 0.95 (0.52-1.04) mg/dL Est GFR (MDRD) Af Amer >60 (>60 ml/min/1.73 sqM) Est GFR (MDRD) Non-Af 60 (>60 ml/min/1.73 sqM) Glucose 136 H (74-99) mg/dL Calcium 10.5 H (8.4-10.2) mg/dL Total Bilirubin 0.6 (0.2-1.3) mg/dL AST 35 (14-36) U/L ALT 41 (9-52) U/L Alkaline Phosphatase 96 (38-126) U/L Total Protein 8.7 H (6.3-8.2) g/dL Albumin 5.1 H (3.5-5.0) g/dL Amylase 47 (30-110) U/L Lipase 112 (23-300) U/L - Radiology Data Radiology results: report reviewed (Computed tomography scan abdomen and pelvis shows chronic pancreatitis without acute changes. Mildly distended jejunum is nonspecific, correlate for enteritis.) Disposition Clinical Impression: Enteritis Disposition: HOME SELF-CARE Condition: Stable Instructions: Enteritis (ED) Additional Instructions: Please follow-up with primary care physician in the next day or 2 for recheck. Return for fevers, increased pain, not tolerating fluids, worsening symptoms or other concerns. Prescriptions: Ondansetron Odt [Zofran Odt] 4 mg PO Q8HR PRN #10 tab PRN Reason: Nausea Referrals: Grupo Hameed MD [STAFF PHYSICIAN] - 1-2 days Time of Disposition: 15:31
[2017-07-29 14:44] LABS: Basophils % (A) 0 %; CHCM 32.5; Eosinophils # (A) 0.2 k/uL (0-0.7); Eosinophils % (A) 2 %; HCT 46.8 % (34.0-46.0); HDW 2.24; HGB 14.9 gm/dL (11.4-16.0); Luc # (Auto) 0.06; Luc % (Auto) 1; Lymphocytes # (A) 2.2 k/uL (1.0-4.8); Lymphocytes % (A) 20 %; MCH 29.6 pg (25.0-35.0); MCHC 31.9 g/dL (31.0-37.0); MCV 92.9 fL (80.0-100.0); Monocytes # (A) 0.4 k/uL (0-1.0); Monocytes % (A) 4 %; Neutrophils # (A) 8.2 k/uL (1.3-7.7); Neutrophils % (A) 73 %; RBC 5.03 m/uL (3.80-5.40); RDW 15.3 % (11.5-15.5); WBC 11.2 k/uL (3.8-10.6); WBC (Perox) 11.21
[2017-07-29 14:53] LABS: Partial Thromboplastin Time 24.3 sec (22.0-30.0); Prothrombin Time 10.4 sec (9.0-12.0)
[2017-07-29 15:02] LABS: ALT 41 U/L (9-52); AST 35 U/L (14-36); Alkaline Phosphatase 96 U/L (38-126); Amylase 47 U/L (30-110); Anion Gap 13 mmol/L; Blood Urea Nitrogen 13 mg/dL (7-17); Calcium 10.5 mg/dL (8.4-10.2); Carbon Dioxide 21 mmol/L (22-30); Chloride 107 mmol/L (98-107); Glucose 136 mg/dL (74-99); Non-African American GFR(MDRD) 60 (>60 ml/min/1.73 sqM); Sodium 141 mmol/L (137-145); Total Bilirubin 0.6 mg/dL (0.2-1.3); Total Protein 8.7 g/dL (6.3-8.2)
[2017-07-29 15:06] LABS: Potassium 4.7 mmol/L (3.5-5.1)
--- NOTE | 2017-07-29 15:27 | CT ---
EXAMINATION TYPE: CT abdomen pelvis wo con DATE OF EXAM: 07/29/2017 COMPARISON: NONE HISTORY: Generalized abd pain, nausea, vomiting, and diarrhea x4 days. Hx of pancreatitis, right ooph orectomy and appendectomy. CT DLP: 371.80 mGycm Examination of the solid and hollow viscera is limited given the lack of contrast. FINDINGS: LUNG BASES: No evidence for nodule. No evidence for infiltrate. LIVER/GB: O cystectomy clips are in place. No space-occupying hepatic lesion. PANCREAS: Resolution of previously noted acute pancreatitis. Chronic pancreatitis changes noted with pancreatic calcifications seen. SPLEEN: No evidence for splenomegaly. No intrasplenic lesions seen. ADRENALS: No adrenal nodules identified. No evidence for thickening. KIDNEYS: No evidence for renal mass. No nephrolithiasis. No hydronephrosis. BOWEL: Appendectomy changes noted. There is mildly distended jejunum which is nonspecific. Correlate for enteritis. Colonic diverticulosis without diverticulitis. No evidence of bowel obstruction. No in flammatory process. Lymph nodes: No evidence for adenopathy greater than 1 cm. Abdominal aorta: Atheromatous changes seen. No evidence for aneurysm. Genital organs: Oophorectomy changes. Other: Postoperative change lumbar spine. IMPRESSION: 1.There is mildly distended jejunum which is nonspecific. Correlate for enteritis. 2. Chronic pancreatitis without acute pancreatitis at this time.
[2017-07-29 15:46] VITALS: BP 121/82; PULSE 83; RESP 16; TEMP 99.1
== END 2017-07-29 15:44 | disposition home or self-care (01) ==
LOC: EC 14:02
DX: K52.9 Noninfective gastroenteritis and colitis, unspecified (principal); I10 Essential (primary) hypertension; F17.200 Nicotine dependence, unspecified, uncomplicated; Z86.73 Personal history of transient ischemic attack (TIA), and cerebral infarction without residual deficits; Z87.19 Personal history of other diseases of the digestive system; Z79.899 Other long term (current) drug therapy; Z98.890 Other specified postprocedural states
CPT/HCPCS: 99284; 96374; 96375 ×2; 96361; 36415; 80053; 82150; 83690; 85025; 85610; 85730; 74176; J2405; J1170

== ENCOUNTER 2017-08-28 12:36 | Emergency (ER) | payer BC ==
[2017-08-28 13:02] VITALS: RESP 20
[2017-08-28] MEDS ORDERED: KETOROLAC 60 MG/2 ML VIAL IM STA (13:30)
[2017-08-28] MEDS ORDERED: ORPHENADRINE 30 MG/ML 2 ML VIAL IM STA (13:30)
[2017-08-28] MEDS ORDERED: methylPREDNISolone SOD SUCCI 125 MG/2 ML VIAL IM STA (13:30)
--- NOTE | 2017-08-28 13:35 | ED ---
General Adult HPI - General Chief complaint: Extremity Problem,Nontraumatic Stated complaint: knee/leg numbness Time Seen by Provider: 08/28/17 13:15 Source: patient, RN notes reviewed Mode of arrival: wheelchair Limitations: no limitations - History of Present Illness Initial comments: 61-year-old female presents to the emergency department with a chief complaint of numbness and tingling to the bilateral lower extremities. She states it starts below the knee. She states she can only feel pressure in the right leg she states the left leg she has more feeling in. She states that she can't walk without her walker because she just does not seem to sense for her legs wrapped. He states that she tripped and fell on [employer] and since she's had these issues. She has a loss by bladder functioning saddle anesthesia with this. She states that there is been no nausea or vomiting. She was concerned due to the continued symptoms so she thought that she should be seen. Patient denies any recent fever, chills, shortness of breath, chest pain, back pain, abdominal pain, nausea vomiting, dysuria or hematuria, constipation or diarrhea , headaches or visual changes, or any other current symptoms. - Related Data Home Medications Medication Instructions Recorded Confirmed Lisinopril 40 mg PO DAILY 01/22/15 08/28/17 Albuterol Inhaler [Ventolin Hfa 1 - 2 puff INHALATION RT-Q6H PRN 07/15/16 Inhaler] Albuterol Nebulized [Ventolin 2.5 mg INHALATION RT-QID PRN 08/31/16 08/28/17 Nebulized] Gabapentin [Neurontin] 800 mg PO QID 08/31/16 08/28/17 HYDROcodone/APAP 5-325MG [[place] 1 tab PO Q6HR PRN 07/04/17 08/28/17 5-325] traMADol HCL [Ultram] 50 mg PO Q12H PRN 08/28/17 08/28/17 Allergies Allergy/AdvReac Type Severity Reaction Status Date / Time No Known Allergies Allergy Verified 08/28/17 13:29 Review of Systems ROS Statement: Those systems with pertinent positive or pertinent negative responses have been documented in the HPI. ROS Other: All systems not noted in ROS Statement are negative. Past Medical History Past Medical History: COPD, CVA/TIA, GERD/Reflux, Hypertension, Osteoarthritis ( OA) Additional Past Medical History / Comment(s): bronchitis, pancreatitis, past anemia unknown cause, gastric ulcer, generalized arthritis History of Any Multi-Drug Resistant Organisms: None Reported Past Surgical History: Appendectomy, Back Surgery, Orthopedic Surgery, Tonsillectomy Additional Past Surgical History / Comment(s): 6 back surgeries with 2 fusions, Right oophorectomy due to ectopic , EGD/colonoscopy, right leg alice inserted from broken leg Past Anesthesia/Blood Transfusion Reactions: No Reported Reaction Additional Past Anesthesia/Blood Transfusion Reaction / Comment(s): Pt has received blood in past without reaction. Past Psychological History: No Psychological Hx Reported Smoking Status: Current every day smoker Past Alcohol Use History: None Reported Past Drug Use History: None Reported - Past Family History Father Family Medical History: Cancer, Liver Disease Additional Family Medical History / Comment(s): from liver cancer Mother Family Medical History: Cancer, CVA/TIA, Hypertension Additional Family Medical History / Comment(s): Mother had breast and colon cancer. She of liver cancer at the age of 77 yrs. General Exam Limitations: no limitations General appearance: alert, in no apparent distress Eye exam: Present: normal appearance, PERRL, EOMI. Absent: scleral icterus, conjunctival injection, periorbital swelling ENT exam: Present: normal exam, mucous membranes moist Neck exam: Present: normal inspection. Absent: tenderness, meningismus, lymphadenopathy Respiratory exam: Present: normal lung sounds bilaterally. Absent: respiratory distress, wheezes, rales, rhonchi, stridor Cardiovascular Exam: Present: regular rate, normal rhythm, normal heart sounds. Absent: systolic murmur, diastolic murmur, rubs, gallop, clicks Extremities exam: Present: normal inspection, full ROM, normal capillary refill. Absent: tenderness, pedal edema, joint swelling, calf tenderness Back exam: Present: normal inspection, full ROM. Absent: tenderness Neurological exam: Present: alert, oriented X3, motor sensory deficit (Right leg patient has only sensation of pressure she is unable to feel sharp or dull she is unable to feel temperature she states everything only feels just like pressure to the right leg. Left leg she is able to tell sharp and all but she states it still has an abnormal feeling. She does have good range of motion of the foot and ankle.) Psychiatric exam: Present: normal affect, normal mood Skin exam: Present: warm, dry, intact, normal color. Absent: rash Course Vital Signs 08/28/17 12:59 Temperature 98.8 F Pulse Rate 94 Respiratory 20 Rate Blood Pressure 143/73 O2 Sat by Pulse 99 Oximetry Medical Decision Making - Medical Decision Making 61-year-old female presents for decreased sensation to the right lower extremity that is only knee and below an abnormal feeling to the left lower extremity. At this time CAT scan is showing bilateral disc herniation with thecal sac compression. Patient continues to have sensory deficit. This did start after a fall. At this time we do not have on-call back specialty until after the holiday. At this time we will transfer the patient to the [facility] for computed continued care. The patient is in agreement with this plan at this time patient will be transferred. Dr. Griffiths accepted the transfer. - Radiology Data Radiology results: report reviewed, image reviewed Disposition Clinical Impression: Lumbar disc herniation with radiculopathy Disposition: OTHER INSTITUTION NOT DEFINED Condition: Stable Referrals: None,Stated [Primary Care Provider] - 1-2 days - Out of Hospital Transfer - Req. Specs Out of Hospital Transfer - Requested Specifics: Other Emergency Center ([facility])
--- NOTE | 2017-08-28 14:30 | CT ---
EXAMINATION TYPE: CT lumbar spine wo con DATE OF EXAM: 08/28/2017 COMPARISON: NONE HISTORY: Knee and leg numbness since [place] CT DLP: 963 mGycm CONTRAST: None TECHNIQUE: CT of the lumbar spine is performed on a spiral scan at 3 mm thick sections. Reconstructed images are performed in the coronal and sagittal planes. FINDINGS: T12-L1: No focal disc herniation or significant disc bulge is evident. No spinal canal stenosis or neural foraminal stenosis is present. L1-L2: There is some hard disc material posterior to the L1-2 level compatible some calcification of the posterior spinal ligament. Mild anterior thecal sac compression may be present. There may be a mo derate size left paracentral disc herniation with moderate anterior thecal sac compression. Exiting n erve root impingement is not excluded. Correlate with radicular symptoms. No spinal canal stenosis is present. Neural foramen are patent. L2-L3: Right paracentral disc bulge is present with moderate anterior thecal sac compression. Some di ffuse disc bulging has mild to moderate anterior thecal sac compression. No AP spinal canal stenosis present. Some foraminal narrowing may be present on the right from the disc bulging. L3-L4: Vertebral plasty of L3 is present. There is some material within the disc space centrally. No retropulsion of bowel wall is evident. There is mild disc bulging present through the L3-L4 level wit h mild anterior thecal sac flattening. No AP spinal canal stenosis present. Mild facet hypertrophy is present. Neural foramen are patent. L4-L5: This disc level is nearly nondiagnostic due to significant beam hardening artifact from pedicl e screws. Disc bulging is suspected. Laminectomy has been performed. Lateral recess narrowing is not excluded. Some facet hypertrophy is present with vacuum phenomenon. L5-S1: Pedicle screws limit the evaluation to this level. Laminectomy has been performed. Obvious prem nosis is not identified.. Vertebral alignment appears normal. IMPRESSION: 1. Left paracentral disc herniation L1-L2 with moderate anterior thecal sac compression. Spinal canal stenosis is not present. Correlate for left radicular symptoms. 2. Right paracentral disc herniation with mild to moderate anterior thecal sac compression. Foraminal opening stenosis may be present. 3. Limited evaluation of the L4-5 level. Laminectomy has been performed and there is suspicion of a r esidual disc bulging. Correlate with radicular symptoms. There is some limited evaluation of the L5-S 1 level as well due to the pedicle screws.
[2017-08-28] MEDS ORDERED: MORPHINE SULFATE 5 MG/ML SYRINGE IVP STA (14:53)
[2017-08-28 15:59] VITALS: BP 132/56; PULSE 89; TEMP 98.1
== END 2017-08-28 15:50 | disposition short-term general hospital (02) ==
LOC: EC 12:36
DX: M51.16 Intervertebral disc disorders with radiculopathy, lumbar region (principal); I10 Essential (primary) hypertension; F17.200 Nicotine dependence, unspecified, uncomplicated; Z79.899 Other long term (current) drug therapy; Z98.1 Arthrodesis status; W01.0XXA Fall on same level from slipping, tripping and stumbling without subsequent striking against object, initial encounter
CPT/HCPCS: 72131; 99284; 96374; 96372 ×2; J2360; J2930; J2274

== ENCOUNTER 2017-09-18 16:21 | Emergency (ER) | payer SELFPAY ==
[2017-09-18 16:27] VITALS: BP 100/60; PULSE 100; RESP 18; TEMP 98
[2017-09-18] MEDS ORDERED: HYDROcodone/APAP 7.5-325MG 1 EACH TAB PO ONE (16:54)
[2017-09-18] MEDS ORDERED: ORPHENADRINE 30 MG/ML 2 ML VIAL IM STA (16:54)
[2017-09-18] MEDS ORDERED: KETOROLAC 30 MG/ML 1 ML VIAL IM STA (16:54)
--- NOTE | 2017-09-18 17:01 | ED ---
Back Pain HPI - General Chief Complaint: Back Pain/Injury Stated Complaint: Post Op Fall-Back Pain Time Seen by Provider: 09/18/17 16:33 Source: patient Limitations: no limitations - History of Present Illness Initial Comments: 61-year-old female patient presents to the emergency department today for evaluation of lower back pain. Patient states that she experienced 2 falls yesterday. States when she tripped over the cat and fell down, and the next time she slipped in the shower and fell landing on her back. Patient also reports that she had back surgery 2 weeks ago. States that she had been steadily getting better with her pain however today the pain is worse. She denies any abnormal numbness or tingling to her lower extremities. She denies any saddle anesthesia. She denies any loss of bowel or bladder control. She denies any fevers or chills. She denies any abnormal drainage from her incision sites. She denies any her head or losing consciousness with the falls. Denies any other injuries. She did take her last [place] last evening. Patient denies any headache, neck pain, chest pain, shortness of breath, dizziness, weakness, abdominal pain, nausea, vomiting, or difficulties with bowel movements or urination. - Related Data Home Medications Medication Instructions Recorded Confirmed Lisinopril 40 mg PO DAILY 01/22/15 09/18/17 Albuterol Inhaler [Ventolin Hfa 1 - 2 puff INHALATION RT-Q6H PRN 07/15/16 Inhaler] Albuterol Nebulized [Ventolin 2.5 mg INHALATION RT-QID PRN 08/31/16 09/18/17 Nebulized] Gabapentin [Neurontin] 800 mg PO QID 08/31/16 09/18/17 HYDROcodone/APAP 5-325MG [[place] 1 tab PO Q6HR PRN 07/04/17 09/18/17 5-325] Previous Rx's Medication Instructions Recorded Hydrocodone/Acetaminophen [[place] 1 tab PO Q6HR PRN #15 tab 09/18/17 5-325] Allergies Allergy/AdvReac Type Severity Reaction Status Date / Time No Known Allergies Allergy Verified 09/18/17 16:43 Review of Systems ROS Statement: Those systems with pertinent positive or pertinent negative responses have been documented in the HPI. ROS Other: All systems not noted in ROS Statement are negative. Past Medical History Past Medical History: COPD, CVA/TIA, GERD/Reflux, Hypertension, Osteoarthritis ( OA) Additional Past Medical History / Comment(s): bronchitis, pancreatitis, past anemia unknown cause, gastric ulcer, generalized arthritis History of Any Multi-Drug Resistant Organisms: None Reported Past Surgical History: Appendectomy, Back Surgery, Orthopedic Surgery, Tonsillectomy Additional Past Surgical History / Comment(s): 6 back surgeries with 2 fusions, Right oophorectomy due to ectopic , EGD/colonoscopy, right leg alice inserted from broken leg Past Anesthesia/Blood Transfusion Reactions: No Reported Reaction Additional Past Anesthesia/Blood Transfusion Reaction / Comment(s): Pt has received blood in past without reaction. Past Psychological History: No Psychological Hx Reported Smoking Status: Current every day smoker Past Alcohol Use History: None Reported Past Drug Use History: None Reported - Past Family History Father Family Medical History: Cancer, Liver Disease Additional Family Medical History / Comment(s): from liver cancer Mother Family Medical History: Cancer, CVA/TIA, Hypertension Additional Family Medical History / Comment(s): Mother had breast and colon cancer. She of liver cancer at the age of 77 yrs. General Exam Limitations: no limitations General appearance: alert, in no apparent distress, other (This is a well- developed, well-nourished adult female patient in no acute distress. Vital signs upon presentation are temperature 98.0F, pulse 100, respirations 18, blood pressure 100/60, pulse ox 99% on room air.) Eye exam: Present: normal appearance, PERRL, EOMI. Absent: scleral icterus, conjunctival injection, periorbital swelling ENT exam: Present: normal exam, normal oropharynx, mucous membranes moist Respiratory exam: Present: normal lung sounds bilaterally. Absent: respiratory distress, wheezes, rales, rhonchi, stridor Cardiovascular Exam: Present: regular rate, normal rhythm, normal heart sounds. Absent: systolic murmur, diastolic murmur, rubs, gallop, clicks GI/Abdominal exam: Present: soft, normal bowel sounds. Absent: distended, tenderness, guarding, rebound, rigid Extremities exam: Present: normal inspection, full ROM, normal capillary refill , other (Skin to the lower extremities is pink, warm, and dry. Cap refills less than 3 seconds. Pedal and posttibial pulses are 2+ and equal bilaterally.) . Absent: tenderness, pedal edema, joint swelling, calf tenderness Back exam: Present: normal inspection, paraspinal tenderness, vertebral tenderness, other (Lower back dressings are intact with minimal serous drainage. No evidence of erythema, swelling, or purulent drainage.) Neurological exam: Present: alert, oriented X3, CN II-XII intact, reflexes normal (Lower extremity), other (Strength in the lower extremities is 5/5.) Psychiatric exam: Present: normal affect, normal mood Skin exam: Present: warm, dry, intact, normal color. Absent: rash Course Vital Signs 09/18/17 16:23 Temperature 98.0 F Pulse Rate 100 Respiratory 18 Rate Blood Pressure 100/60 O2 Sat by Pulse 99 Oximetry Medical Decision Making - Medical Decision Making 61-year-old female patient presented to the emergency department today for increased lower back pain after 2 falls yesterday. Patient did have fusion surgery on now 09/05/2017. Physical examination is unremarkable. Strength in the lower extremities is good. Neurovascular status is intact. We did obtain a lumbosacral x-ray which did reveal 25% wedge deformity of the L2 vertebra. This is new compared to pull CT scanning from August and x-rays obtained in June 2011. Patient was informed of these results. She'll be given prescription for pain medication as well as a TLSO brace. She is instructed to follow-up with her surgeon as soon as possible. Return parameters were discussed in detail. She is instructed to return here immediately for any new, worsening, or concerning symptoms. She verbalizes understanding and agrees with this plan. - Radiology Data Radiology results: report reviewed, image reviewed 5 views of the lumbosacral spine are obtained and show right screws fusing posteriorly the lumbar vertebra from L2 to S1. There is vertebral plasty of L3. There is 25% wedging of the L2 vertebra. There is disc prosthesis at L4- L5 and L2 to 3. The sacroiliac joints appear intact. Impression by Dr. Stockton shows new mild compression fracture of L2 compared to old exam. Posterior multilevel fusion surgery. Stable old vertebroplasty of L3. There is new posterior fusion surgery from L2 to L4. Disposition Clinical Impression: Compression fracture of L2 lumbar vertebra Disposition: HOME SELF-CARE Condition: Good Instructions: Vertebral Compression Fracture (ED), Back Pain (ED) Additional Instructions: Follow-up with your surgeon as soon as possible. Obtain brace and wear this until cleared by your orthopedic physician. Take pain medications as directed. Return here immediately for any new, worsening, or concerning symptoms. Prescriptions: Hydrocodone/Acetaminophen [[place] 5-325] 1 tab PO Q6HR PRN #15 tab PRN Reason: Pain Referrals: None,Stated [Primary Care Provider] - 1-2 days Time of Disposition: 17:59
--- NOTE | 2017-09-18 17:40 | XR ---
EXAMINATION TYPE: XR lumbosacral spine min 4V DATE OF EXAM: 09/18/2017 COMPARISON: 06/13/2011 HISTORY: Back pain TECHNIQUE: 5 views FINDINGS: There are rods and screws fusing posteriorly the lumbar vertebra from L2 to S1. There is ve rtebroplasty of L3. There is 25% wedging of L2 to vertebra. There is disc prosthesis at L4-5 and L2-3 . The sacroiliac joints appear intact. IMPRESSION: There is a new mild compression fracture of L2 compared to old exam. Posterior multilevel fusion surgery. Stable old vertebroplasty of L3. There is new posterior fusion surgery from L2 to L4 .
== END 2017-09-18 18:07 | disposition home or self-care (01) ==
LOC: EC 16:21
DX: M48.56XA Collapsed vertebra, not elsewhere classified, lumbar region, initial encounter for fracture (principal); F17.200 Nicotine dependence, unspecified, uncomplicated; I10 Essential (primary) hypertension; Z79.899 Other long term (current) drug therapy; Z98.1 Arthrodesis status; W01.0XXA Fall on same level from slipping, tripping and stumbling without subsequent striking against object, initial encounter; W18.2XXA Fall in (into) shower or empty bathtub, initial encounter
CPT/HCPCS: 99283 ×2; 96372 ×3; 72110; J2360; J1885

== ENCOUNTER 2018-01-19 09:13 | Emergency (ER) | payer BC ==
[2018-01-19 09:22] VITALS: TEMP 99.5
[2018-01-19] MEDS ORDERED: CYCLOBENZAPRINE 10MG STARTER 3 TAB BTL PO STA (09:44)
--- NOTE | 2018-01-19 09:47 | ED ---
General Adult HPI - General Chief complaint: Back Pain/Injury Stated complaint: Back Pain Time Seen by Provider: 01/19/18 09:33 Source: patient, RN notes reviewed, old records reviewed Mode of arrival: ambulatory Limitations: no limitations - History of Present Illness Initial comments: 60-year-old female with a history of chronic back pain presents emergency department today with worsening back pain. She reports that she's had surgery in September. She subsequently suffered from a fall after that surgery and her back. She had a compression fracture discovered at that time. Patient reports that in mid December she felt, stairs again. She was taking her prescribed pain meds and did not seek treatment at that time. She denies any saddle anesthesias. No urinary symptoms. She reports the pains worsens or movements and occasionally radiates on her legs. Patient states that it is seems to be worse on the left leg. She does occasionally ambulate with a cane. Denies any other symptoms. She states that she is here searching for some pain relief. - Related Data Home Medications Medication Instructions Recorded Confirmed Lisinopril 40 mg PO DAILY 01/22/15 09/18/17 Albuterol Inhaler [Ventolin Hfa 1 - 2 puff INHALATION RT-Q6H PRN 07/15/16 Inhaler] Albuterol Nebulized [Ventolin 2.5 mg INHALATION RT-QID PRN 08/31/16 09/18/17 Nebulized] Gabapentin [Neurontin] 800 mg PO QID 08/31/16 09/18/17 HYDROcodone/APAP 5-325MG [[place] 1 tab PO Q6HR PRN 07/04/17 09/18/17 5-325] Previous Rx's Medication Instructions Recorded Hydrocodone/Acetaminophen [[place] 1 tab PO Q6HR PRN #15 tab 09/18/17 5-325] Cyclobenzaprine [Flexeril] 10 mg PO TID #15 tab 01/19/18 HYDROcodone/APAP 5-325MG [[place] 1 tab PO Q4HR PRN #15 tab 01/19/18 5-325] Allergies Allergy/AdvReac Type Severity Reaction Status Date / Time No Known Allergies Allergy Verified 01/19/18 09:22 Review of Systems ROS Statement: Those systems with pertinent positive or pertinent negative responses have been documented in the HPI. ROS Other: All systems not noted in ROS Statement are negative. Past Medical History Past Medical History: COPD, CVA/TIA, GERD/Reflux, Hypertension, Osteoarthritis ( OA) Additional Past Medical History / Comment(s): bronchitis, pancreatitis, past anemia unknown cause, gastric ulcer, generalized arthritis History of Any Multi-Drug Resistant Organisms: None Reported Past Surgical History: Appendectomy, Back Surgery, Orthopedic Surgery, Tonsillectomy Additional Past Surgical History / Comment(s): 6 back surgeries with 2 fusions, Right oophorectomy due to ectopic , EGD/colonoscopy, right leg alice inserted from broken leg Past Anesthesia/Blood Transfusion Reactions: No Reported Reaction Additional Past Anesthesia/Blood Transfusion Reaction / Comment(s): Pt has received blood in past without reaction. Past Psychological History: No Psychological Hx Reported Smoking Status: Current every day smoker Past Alcohol Use History: None Reported Past Drug Use History: None Reported - Past Family History Father Family Medical History: Cancer, Liver Disease Additional Family Medical History / Comment(s): from liver cancer Mother Family Medical History: Cancer, CVA/TIA, Hypertension Additional Family Medical History / Comment(s): Mother had breast and colon cancer. She of liver cancer at the age of 77 yrs. General Exam - General Exam Comments Initial Comments: 62-year-old female. Alert and oriented. No acute distress. General: Well appearing, well nourished, in no distress. Oriented x 3, normal mood and affect . Ambulating without difficulty. Skin: Good turgor, no rash, unusual bruising or prominent lesions Hair: Normal texture and distribution. HEENT: Head: Normocephalic, atraumatic, no visible or palpable masses, depressions, or scaring. Eyes: Visual acuity intact, conjunctiva clear, sclera non-icteric, EOM intact, PERRL. Ears: EACs clear, TMs translucent & cone of light visualized. hearing intact. Nose: No external lesions, mucosa non-inflamed, septum and turbinates normal Mouth: Mucous membranes moist, no mucosal lesions. Teeth/Gums: No obvious caries or periodontal disease. No gingival inflammation or significant resorption. Pharynx: Mucosa non-inflamed, no tonsillar hypertrophy or exudate Neck: Supple, without lesions, bruits, or adenopathy, thyroid non-enlarged and non-tender Heart: No cardiomegaly or thrills; regular rate and rhythm, no murmur or gallop Lungs: Clear to auscultation and percussion Abdomen: Bowel sounds normal, no tenderness, organomegaly, masses, or hernia Back: lumbar spine is well-appearing incision site. Tenderness over the incision site Extremities: No amputations or deformities, cyanosis, edema or varicosities, peripheral pulses intact bilateral pedal pulses are 2+. Normal strength and sensation. Musculoskeletal: Normal gait and station. No misalignment, asymmetry, crepitation, defects, tenderness, masses, effusions, decreased range of motion, instability, atrophy or abnormal strength or tone in the head, neck, spine, ribs , pelvis or extremities. Neurologic: Sensation to pain, touch, and proprioception normal. DTRs normal in upper and lower extremities. No pathologic reflexes. Psychiatric: Oriented X3, intact recent and remote memory, judgment and insight , normal mood and affect. Limitations: no limitations Course Vital Signs 01/19/18 09:19 Temperature 99.5 F Pulse Rate 86 Respiratory 20 Rate Blood Pressure 139/85 O2 Sat by Pulse 98 Oximetry Medical Decision Making - Medical Decision Making 62-year-old female presents return to complaining of acute exacerbation of chronic back pain. She fell in mid December. She has been out of her pain medication. Maps report was ran. Only receiving pain medication from her nutrition specialist. She has an appointment on February 15. Discussed with her for short course of pain medication and she must rocks. She'll follow-up. Discussed discussed return parameters including saddle anesthesias. Is a bleeding without difficulty. Normal pulse and sensation and strength lower extremity's. Patient agrees to treatment plan will comply. Return parameters were discussed. - Radiology Data Radiology results: report reviewed X-ray of the lumbar spine shows no evidence of any acute fracture subluxation. Compression deformity at L2. Pulmonary laceration is reduced. Vertebroplasty changes at L3. Disposition Clinical Impression: Acute exacerbation of chronic low back pain Disposition: HOME SELF-CARE Condition: Good Instructions: Chronic Back Pain (ED) Additional Instructions: Patient advised to follow-up with primary care provider. To rest, apply heat and ice to the area. Return to the emergency department if any alarming signs or symptoms occur. Prescriptions: Cyclobenzaprine [Flexeril] 10 mg PO TID #15 tab HYDROcodone/APAP 5-325MG [[place] 5-325] 1 tab PO Q4HR PRN #15 tab PRN Reason: Pain Is patient prescribed a controlled substance at d/c from ED?: No If prescribed controlled substance>3 days was MAPS reviewed?: No When asked, does pt state using other controlled substances?: No Referrals: None,Stated [Primary Care Provider] - 1-2 days Time of Disposition: 10:35
--- NOTE | 2018-01-19 10:14 | XR ---
Lumbar spine HISTORY: Low back pain, trauma 3 views of lumbar spine correlated prior exam 09/18/2017. Surgical clips present right upper quadrant. Patient shows posterior lumbar fusion change at L2-S1. Intervertebral spacing material present at L2- 3, L4-5. Vertebral plasty change present at L3. Alignment is stable. Mild compression deformity prese nt at L2 superior endplate is stable. Bone mineralization is reduced. IMPRESSION: No acute fracture or subluxation is evident.
[2018-01-19 10:52] VITALS: BP 148/70; PULSE 92; RESP 18
== END 2018-01-19 10:52 | disposition home or self-care (01) ==
LOC: EC 09:13
DX: M54.5 Low back pain (principal); G89.29 Other chronic pain; J44.9 Chronic obstructive pulmonary disease, unspecified; I10 Essential (primary) hypertension; F17.200 Nicotine dependence, unspecified, uncomplicated; Z79.899 Other long term (current) drug therapy; Z98.890 Other specified postprocedural states
CPT/HCPCS: 72100; 99284

== ENCOUNTER 2018-02-01 16:08 | Emergency (ER) | payer BC ==
[2018-02-01 16:29] VITALS: BP 140/70; PULSE 96; TEMP 98.7
--- NOTE | 2018-02-01 17:14 | ED ---
General Adult HPI - General Chief complaint: Upper Respiratory Infection Stated complaint: Sore throat Time Seen by Provider: 02/01/18 16:27 Source: patient, RN notes reviewed Mode of arrival: ambulatory Limitations: no limitations - History of Present Illness Initial comments: 62-year-old female presents to the emergency department for chief complaint of cough 4 days. Patient has a significant past medical history for COPD. Patient states she has been coughing but is not coughing anything up. Patient denies any shortness of breath or difficulty breathing. Patient denies any fevers or chills at home. Patient denies congestion but does state she has a sore throat. No ear pain. Patient has a nebulizer at home. Patient states she does not want any testing because she knows she what she is having as she has had it before. Patient states she just needs prednisone, azithromycin, and codeine cough medicine. Patient is adamant that codeine cough medicine is the only medicine that helps. Patient does not have a primary care provider. Patient has no other complaints at this time including shortness of breath, chest pain, abdominal pain, nausea or vomiting, headache, or visual changes. - Related Data Home Medications Medication Instructions Recorded Confirmed Lisinopril 40 mg PO DAILY 01/22/15 09/18/17 Albuterol Inhaler [Ventolin Hfa 1 - 2 puff INHALATION RT-Q6H PRN 07/15/16 Inhaler] Albuterol Nebulized [Ventolin 2.5 mg INHALATION RT-QID PRN 08/31/16 09/18/17 Nebulized] Gabapentin [Neurontin] 800 mg PO QID 08/31/16 09/18/17 HYDROcodone/APAP 5-325MG [[place] 1 tab PO Q6HR PRN 07/04/17 09/18/17 5-325] Previous Rx's Medication Instructions Recorded Hydrocodone/Acetaminophen [[place] 1 tab PO Q6HR PRN #15 tab 09/18/17 5-325] Cyclobenzaprine [Flexeril] 10 mg PO TID #15 tab 01/19/18 HYDROcodone/APAP 5-325MG [[place] 1 tab PO Q4HR PRN #15 tab 01/19/18 5-325] Azithromycin [Zithromax Z-pack] 250 mg PO DIRECTED #6 tab 06/01/18 Codeine Phosphate/Guaifenesin 5 ml PO Q8H PRN 3 Days #45 ml 02/01/18 [Guaifen-Codeine 100-10 mg/5 ml] predniSONE 50 mg PO DAILY #5 tablet 02/01/18 Allergies Allergy/AdvReac Type Severity Reaction Status Date / Time No Known Allergies Allergy Verified 01/19/18 09:22 Review of Systems ROS Statement: Those systems with pertinent positive or pertinent negative responses have been documented in the HPI. ROS Other: All systems not noted in ROS Statement are negative. Past Medical History Past Medical History: COPD, CVA/TIA, GERD/Reflux, Hypertension, Osteoarthritis ( OA) Additional Past Medical History / Comment(s): bronchitis, pancreatitis, past anemia unknown cause, gastric ulcer, generalized arthritis History of Any Multi-Drug Resistant Organisms: None Reported Past Surgical History: Appendectomy, Back Surgery, Orthopedic Surgery, Tonsillectomy Additional Past Surgical History / Comment(s): 6 back surgeries with 2 fusions, Right oophorectomy due to ectopic , EGD/colonoscopy, right leg alice inserted from broken leg Past Anesthesia/Blood Transfusion Reactions: No Reported Reaction Additional Past Anesthesia/Blood Transfusion Reaction / Comment(s): Pt has received blood in past without reaction. Past Psychological History: No Psychological Hx Reported Smoking Status: Current every day smoker Past Alcohol Use History: None Reported Past Drug Use History: None Reported - Past Family History Father Family Medical History: Cancer, Liver Disease Additional Family Medical History / Comment(s): from liver cancer Mother Family Medical History: Cancer, CVA/TIA, Hypertension Additional Family Medical History / Comment(s): Mother had breast and colon cancer. She of liver cancer at the age of 77 yrs. General Exam Limitations: no limitations General appearance: alert, in no apparent distress Head exam: Present: atraumatic, normocephalic, normal inspection Eye exam: Present: normal appearance, PERRL, EOMI. Absent: scleral icterus, conjunctival injection, periorbital swelling ENT exam: Present: normal exam, normal oropharynx (Uvula midline, non- erythematous, no tonsillar exudates noted bilaterally.), mucous membranes moist , TM's normal bilaterally, normal external ear exam Neck exam: Present: normal inspection, full ROM. Absent: tenderness, meningismus, lymphadenopathy Respiratory exam: Present: normal lung sounds bilaterally, wheezes (mild wheezing in LLL and ULL. ). Absent: respiratory distress, rales, rhonchi, stridor Cardiovascular Exam: Present: regular rate, normal rhythm, normal heart sounds. Absent: systolic murmur, diastolic murmur, rubs, gallop, clicks Course Vital Signs 02/01/18 02/01/18 16:26 17:25 Temperature 98.7 F Pulse Rate 96 Respiratory 18 20 Rate Blood Pressure 140/70 O2 Sat by Pulse 98 Oximetry Medical Decision Making - Medical Decision Making 62-year-old female presents to the emergency department for a chief complaint of cough 4 days. Patient has a significant past medical history for COPD. Patient also has a sore throat, no congestion. Patient states the cough is especially worse at night. No fevers or chills at home. Patient is 98% on room air and afebrile in the emergency department. On exam throat is nonerythematous. Patient has mild wheezing in the left upper and lower lung lerma. Right lung is clear to auscultation. Throat is nonerythematous. I recommended a chest x-ray to rule out pneumonia as well as a strep screen. Patient refused both of these as she states she knows she does has an upper respiratory infection that needs antibiotics. Patient does not want any testing she does want some medications to treat her symptoms. Patient does not have a primary care provider. Patient states the codeine cough medicine his only cough medicine that helps her at night. Patient states she is not sleeping due to the cough. Patient states she has tried multiple over-the- counter cough remedies without success. Patient was educated that I will give her a three-day supply of the codeine cough medicine today but we will not be giving repeat codeine cough medicine in the emergency department. She will need to establish with a primary care provider for this. She was given a referral to a primary care provider. She will take medications as directed. She will return to the emergency Department if she has any worsening symptoms or difficulty breathing. Disposition Clinical Impression: Upper respiratory infection Disposition: HOME SELF-CARE Condition: Good Instructions: Upper Respiratory Infection (ED) Additional Instructions: Please take medications as directed. Please establish with a primary care provider. Return to the emergency department if symptoms worsen or you have difficulty breathing. Prescriptions: Azithromycin [Zithromax Z-pack] 250 mg PO DIRECTED #6 tab Codeine Phosphate/Guaifenesin [Guaifen-Codeine 100-10 mg/5 ml] 5 ml PO Q8H PRN 3 Days #45 ml PRN Reason: Cough predniSONE 50 mg PO DAILY #5 tablet Is patient prescribed a controlled substance at d/c from ED?: Yes When asked, does pt state using other controlled substances?: No If prescribed controlled substance>3 days was MAPS reviewed?: Prescribed <3 Days If opioid is for acute pain is fill amount 7 days or less?: Yes If Rx opioid, was Start Talking consent form obtained?: Yes Referrals: Grupo Hameed MD [STAFF PHYSICIAN] - 1-2 days Time of Disposition: 17:13
[2018-02-01 17:26] VITALS: RESP 20
== END 2018-02-01 17:26 | disposition home or self-care (01) ==
LOC: EC 16:08
DX: J06.9 Acute upper respiratory infection, unspecified (principal); J44.9 Chronic obstructive pulmonary disease, unspecified; I10 Essential (primary) hypertension; F17.200 Nicotine dependence, unspecified, uncomplicated; Z86.73 Personal history of transient ischemic attack (TIA), and cerebral infarction without residual deficits; Z79.899 Other long term (current) drug therapy
CPT/HCPCS: 99283

== ENCOUNTER 2018-02-18 04:15 | Inpatient (IN) | payer BC ==
[2018-02-18] MEDS ORDERED: HYDROmorphone 0.5 MG/0.5 ML SYRINGE IVP STA (04:35)
[2018-02-18] MEDS ORDERED: ONDANSETRON 4 MG/2 ML VIAL IVP STA (04:35)
[2018-02-18] MEDS ORDERED: SODIUM CHLORIDE 0.9% 1,000 ML IV ONE (04:37)
--- NOTE | 2018-02-18 04:37 | ED ---
General Adult HPI - General Chief complaint: Abdominal Pain Stated complaint: Abdominal Pain Time Seen by Provider: 02/18/18 04:15 Source: patient, RN notes reviewed Mode of arrival: wheelchair Limitations: no limitations - History of Present Illness Initial comments: This is a 62-year-old female who has a past medical history significant for pancreatitis. Patient presents today because she is having vomiting and diarrhea for the last 5-6 days. Patient states she is unable to keep any food down at all. Patient states she has a lot of epigastric abdominal pain. Patient states typical of her pancreatitis. Patient denies any fever or chills. Patient denies chest pain difficulty breathing or shortness of breath. Patient denies being lightheaded or dizzy. Patient denies any back pain. Patient denies dysuria hematuria urinary frequency. - Related Data Home Medications Medication Instructions Recorded Confirmed Lisinopril 40 mg PO DAILY 01/22/15 09/18/17 Albuterol Inhaler [Ventolin Hfa 1 - 2 puff INHALATION RT-Q6H PRN 07/15/16 Inhaler] Albuterol Nebulized [Ventolin 2.5 mg INHALATION RT-QID PRN 08/31/16 09/18/17 Nebulized] Gabapentin [Neurontin] 800 mg PO QID 08/31/16 09/18/17 HYDROcodone/APAP 5-325MG [[place] 1 tab PO Q6HR PRN 07/04/17 09/18/17 5-325] Previous Rx's Medication Instructions Recorded Hydrocodone/Acetaminophen [[place] 1 tab PO Q6HR PRN #15 tab 09/18/17 5-325] Cyclobenzaprine [Flexeril] 10 mg PO TID #15 tab 01/19/18 HYDROcodone/APAP 5-325MG [[place] 1 tab PO Q4HR PRN #15 tab 01/19/18 5-325] Azithromycin [Zithromax Z-pack] 250 mg PO DIRECTED #6 tab 02/01/18 Codeine Phosphate/Guaifenesin 5 ml PO Q8H PRN 3 Days #45 ml 02/01/18 [Guaifen-Codeine 100-10 mg/5 ml] predniSONE 50 mg PO DAILY #5 tablet 02/01/18 Allergies Allergy/AdvReac Type Severity Reaction Status Date / Time No Known Allergies Allergy Verified 02/18/18 04:22 Review of Systems ROS Statement: Those systems with pertinent positive or pertinent negative responses have been documented in the HPI. ROS Other: All systems not noted in ROS Statement are negative. Past Medical History Past Medical History: COPD, CVA/TIA, GERD/Reflux, Hypertension, Osteoarthritis ( OA) Additional Past Medical History / Comment(s): bronchitis, pancreatitis, past anemia unknown cause, gastric ulcer, generalized arthritis History of Any Multi-Drug Resistant Organisms: None Reported Past Surgical History: Appendectomy, Back Surgery, Orthopedic Surgery, Tonsillectomy Additional Past Surgical History / Comment(s): 6 back surgeries with 2 fusions, Right oophorectomy due to ectopic , EGD/colonoscopy, right leg alice inserted from broken leg Past Anesthesia/Blood Transfusion Reactions: No Reported Reaction Additional Past Anesthesia/Blood Transfusion Reaction / Comment(s): Pt has received blood in past without reaction. Past Psychological History: No Psychological Hx Reported Smoking Status: Current every day smoker Past Alcohol Use History: None Reported Past Drug Use History: None Reported - Past Family History Father Family Medical History: Cancer, Liver Disease Additional Family Medical History / Comment(s): from liver cancer Mother Family Medical History: Cancer, CVA/TIA, Hypertension Additional Family Medical History / Comment(s): Mother had breast and colon cancer. She of liver cancer at the age of 77 yrs. General Exam - General Exam Comments Initial Comments: GENERAL: Patient is well-developed and well-nourished. Patient is nontoxic and well- hydrated and is in mild distress. ENT: Neck is soft and supple. No significant lymphadenopathy is noted. Oropharynx is clear. Moist mucous membranes. Neck has full range of motion without eliciting any pain. EYES: The sclera were anicteric and conjunctiva were pink and moist. Extraocular movements were intact and pupils were equal round and reactive to light. Eyelids were unremarkable. PULMONARY: Unlabored respirations. Good breath sounds bilaterally. No audible rales rhonchi or wheezing was noted. CARDIOVASCULAR: There is a regular rate and rhythm without any murmurs gallops or rubs. ABDOMEN: Epigastric abdominal pain. No palpable organomegaly was noted. There is no palpable pulsatile mass. SKIN: Skin is clear with no lesions or rashes and otherwise unremarkable. NEUROLOGIC: Patient is alert and oriented x3. Cranial nerves II through XII are grossly intact. Motor and sensory are also intact. Normal speech, volume and content. Symmetrical smile. MUSCULOSKELETAL: Normal extremities with adequate strength and full range of motion. No lower extremity swelling or edema. No calf tenderness. LYMPHATICS: No significant lymphadenopathy is noted PSYCHIATRIC: Normal psychiatric evaluation. Limitations: no limitations Course Vital Signs 02/18/18 04:19 Temperature 98.7 F Pulse Rate 90 Respiratory 23 Rate Blood Pressure 105/62 O2 Sat by Pulse 96 Oximetry Medical Decision Making - Medical Decision Making EKG shows normal sinus rhythm at 70 bpm IN interval is on a 48 QRS is 70 QT interval 436 QTC is 497. Patient's EKG shows no ST segment elevation or depression or T wave abnormalities are noted. Patient's computed tomography scan shows some fluid-filled small bowel and colon which was consistent with a diarrheal state. I spoke with some physicians and he agreed to admit the patient admitted the patient. Wrote admitting orders - Lab Data Result diagrams: 02/18/18 05:03 02/18/18 05:03 Lab Results 02/18/18 02/18/18 Range/Units 05:03 05:03 WBC 25.7 H* (3.8-10.6) k/uL RBC 4.58 (3.80-5.40) m/uL Hgb 12.7 (11.4-16.0) gm/dL Hct 39.0 (34.0-46.0) % MCV 85.1 (80.0-100.0) fL MCH 27.7 (25.0-35.0) pg MCHC 32.6 (31.0-37.0) g/dL RDW 16.3 H (11.5-15.5) % Plt Count 346 (150-450) k/uL Neutrophils % 87 % Lymphocytes % 8 % Monocytes % 3 % Eosinophils % 1 % Basophils % 0 % Neutrophils # 22.3 H (1.3-7.7) k/uL Lymphocytes # 2.1 (1.0-4.8) k/uL Monocytes # 0.8 (0-1.0) k/uL Eosinophils # 0.2 (0-0.7) k/uL Basophils # 0.1 (0-0.2) k/uL Anisocytosis Slight Sodium 138 (137-145) mmol/L Potassium 3.8 (3.5-5.1) mmol/L Chloride 105 (98-107) mmol/L Carbon Dioxide 16 L (22-30) mmol/L Anion Gap 17 mmol/L BUN 17 (7-17) mg/dL Creatinine 2.40 H (0.52-1.04) mg/dL Est GFR (CKD-EPI)AfAm 24 (>60 ml/min/1.73 sqM) Est GFR (CKD-EPI)NonAf 21 (>60 ml/min/1.73 sqM) Glucose 175 H (74-99) mg/dL Calcium 9.4 (8.4-10.2) mg/dL Total Bilirubin 0.2 (0.2-1.3) mg/dL AST 19 (14-36) U/L ALT 21 (9-52) U/L Alkaline Phosphatase 115 (38-126) U/L Total Protein 6.8 (6.3-8.2) g/dL Albumin 4.2 (3.5-5.0) g/dL Amylase 56 (30-110) U/L Lipase 86 (23-300) U/L Disposition Clinical Impression: Diarrhea, Vomiting, Abdominal pain Disposition: ADMITTED IP TO THIS [facility] Referrals: None,Stated [Primary Care Provider] - 1-2 days Time of Disposition: 06:47
[2018-02-18 05:13] LABS: Anisocytosis Slight; Basophils # (A) 0.1 k/uL (0-0.2); Basophils % (A) 0 %; Eosinophils # (A) 0.2 k/uL (0-0.7); Eosinophils % (A) 1 %; HGB 12.7 gm/dL (11.4-16.0); Lymphocytes # (A) 2.1 k/uL (1.0-4.8); Lymphocytes % (A) 8 %; MCH 27.7 pg (25.0-35.0); MCHC 32.6 g/dL (31.0-37.0); MCV 85.1 fL (80.0-100.0); Mean Platelet Volume 6.8; Monocytes # (A) 0.8 k/uL (0-1.0); Monocytes % (A) 3 %; Neutrophils # (A) 22.3 k/uL (1.3-7.7); Neutrophils % (A) 87 %; Platelet Count 346 k/uL (150-450); RBC 4.58 m/uL (3.80-5.40); RDW 16.3 % (11.5-15.5)
[2018-02-18 05:20] LABS: WBC 25.7 k/uL (3.8-10.6)
[2018-02-18 05:24] LABS: Albumin 4.2 g/dL (3.5-5.0); Calcium 9.4 mg/dL (8.4-10.2); Potassium 3.8 mmol/L (3.5-5.1); Total Bilirubin 0.2 mg/dL (0.2-1.3); Total Protein 6.8 g/dL (6.3-8.2)
--- NOTE | 2018-02-18 05:42 | XR ---
EXAM: XR Abdomen, 2 Views CLINICAL HISTORY: ITS.REASON XR Reason: abdominal pain TECHNIQUE: Frontal view of the abdomen/pelvis with upright view of the abdomen. COMPARISON: CT 07/29/17 and radiographic series 04/17/17 FINDINGS: Lower thorax: Lower chest is unremarkable. Intraperitoneal space: No evidence for pneumoperitoneum. Gastrointestinal tract: A few fluid levels noted within the rightward abdominal bowel, likely at least partially within the colon. Bowel study of bowel gas centrally, with Limited characterization of small bowel. Bones/joints: Postsurgical changes to the lumbar spine, with multilevel posterior fusion. IMPRESSION: 1. Fluid levels within the rightward abdominal bowel, likely at least partially within the colon and may represent a component of ileus or diarrheal state. Small bowel within the central abdomen is limitedly characterized due to paucity of bowel gas.
--- NOTE | 2018-02-18 06:37 | CT ---
ADDENDUM - Added by Demetrius Lo MD on 02/18/2018 7:17 AM (-07:00) The following should be added to the impression: 16 mm cyst of the right kidney with higher than simple density, possibly hemorrhagic or complex cyst. This may be slightly enlarged and follow-up can be considered with nonemergent ultrasound to exclude suspicious features. EXAM: CT Abdomen and Pelvis Without Intravenous Contrast CLINICAL HISTORY: ITS.REASON CT Reason: Pain TECHNIQUE: Axial computed tomography images of the abdomen and pelvis without intravenous contrast. CTDI is 6.9 mGy and DLP is 307.8 mGy-cm. This CT exam was performed using one or more of the following dose reduction techniques: automated exposure control, adjustment of the mA and/or kV according to patient size, and/or use of iterative reconstruction technique. Coronal and sagittal reformatted images were created and reviewed. COMPARISON: 07/29/17 FINDINGS: Lung bases: Lower lungs demonstrate mild airspace opacity along the subpleural aspect of the right lower lobe, limitedly characterized by respiratory motion. This could represent mild infiltrate or scarring. ABDOMEN: Liver: Unremarkable. Gallbladder and bile ducts: Cholecystectomy. Biliary dilatation is present, possibly related to the previous cholecystectomy. The distal common bile duct measures a caliber of 10 mm. Pancreas: No evidence for significant peripancreatic inflammatory changes or pseudocyst. No ductal dilation. Spleen: Unremarkable. No splenomegaly. Adrenals: Unremarkable. No mass. Kidneys and ureters: 16 mm slightly complex density right renal cyst, possibly slightly enlarged. No hydronephrosis or calcified renal stones. Stomach and bowel: Colonic diverticulosis. No evidence for acute inflammation. There is diffuse fluid throughout the colon which could indicate a diarrheal state. No evidence for bowel obstruction. Diffuse fluid-filled loops of small bowel within the mid to lower abdomen. No mucosal thickening. PELVIS: Appendix: Nonvisualized. Surgically absent.. Bladder: No visualized stones or significant wall thickening. Urinary bladder extends lower than normal likely indicating pelvic floor abnormality. Reproductive: Hysterectomy. ABDOMEN and PELVIS: Intraperitoneal space: Unremarkable. No free air. No significant fluid collection. Bones/joints: Partially visualized right femoral intramedullary nail. Posterior fusion changes of the lumbar spine from the L2-S1 level. Compression deformity is noted at the superior endplate of L1 level which is not seen previously. No dislocation. Soft tissues: Unremarkable. Vasculature: Atherosclerosis. No abdominal aortic aneurysm. Lymph nodes: Unremarkable. No enlarged lymph nodes. IMPRESSION: 1. Nonspecific fluid distended loops of small bowel as well as fluid throughout the colon which would suggest a diarrheal state. Query gastroenteritis. 2. Biliary dilatation, possibly related to previous cholecystectomy. Correlate to exclude clinical findings of biliary obstruction. No CT evidence for peripancreatic inflammatory change or pseudocyst. 3. Compression deformity of the superior endplate of L1, age indeterminate. 4. Focal, subpleural right lower lobe pulmonary opacity could represent focal scarring or infiltrate. 5. Nonacute findings as above. [employer] 02/18/18 07:22 Verify Receipt Verified receipt with Dr. Espinoza on 02/18 07:22 (-04:00)
[2018-02-18] MEDS ORDERED: metroNIDAZOLE 500 MG TAB PO STA (06:48)
[2018-02-18] MEDS ORDERED: ONDANSETRON 4 MG/2 ML VIAL IVP PRN (06:49)
[2018-02-18] MEDS: SODIUM CHLORIDE 0.9% 1,000 ML IV ONE ×2 (07:00→15:57)
[2018-02-18] MEDS: MORPHINE SULFATE 2 MG/ML SYRINGE IVP PRN ×4 (08:31→22:40)
[2018-02-18] MEDS ORDERED: ALBUTEROL NEBULIZED 2.5 MG/3 ML INHALATION PRN (09:06)
[2018-02-18] MEDS ORDERED: CYCLOBENZAPRINE 10 MG TAB PO PRN (09:06)
[2018-02-18] MEDS ORDERED: HYDROcodone/APAP 5-325MG 1 EACH TAB PO PRN (09:24)
[2018-02-18] MEDS ORDERED: NALOXONE 0.4 MG/ML 1 ML VIAL IV PRN (09:24)
--- NOTE | 2018-02-18 10:42 | P.HPIM ---
History of Present Illness H&P Date: 02/18/18 Principal diagnosis: This is 62-year-old female with past medical history of recurrent pancreatitis that has been admitted at least a few times with the hospital with pancreatitis in the past etiology is not clear patient states that she did have cholecystectomy but continued to have these episodes and also she does not drink She states that she has been having abdominal pain for the last few days associated with vomiting she vomited multiple times and also associated with diarrhea denies any chest pain denies any shortness of breath doesn't have any fever Review of systems and systems has been reviewed all negative and positive findings as per HPI Past Medical History: COPD, CVA/TIA, GERD/Reflux, Hypertension, Osteoarthritis ( OA) Additional Past Medical History / Comment(s): bronchitis, pancreatitis, past anemia unknown cause, gastric ulcer, generalized arthritis History of Any Multi-Drug Resistant Organisms: None Reported Past Surgical History: Appendectomy, Back Surgery, Orthopedic Surgery, Tonsillectomy Additional Past Surgical History / Comment(s): 6 back surgeries with 2 fusions, Right oophorectomy due to ectopic , EGD/colonoscopy, right leg alice inserted from broken leg Past Anesthesia/Blood Transfusion Reactions: No Reported Reaction Additional Past Anesthesia/Blood Transfusion Reaction / Comment(s): Pt has received blood in past without reaction. Past Psychological History: No Psychological Hx Reported Smoking Status: Current every day smoker Past Alcohol Use History: None Reported Past Drug Use History: None Reported - Past Family History Father Family Medical History: Cancer, Liver Disease Additional Family Medical History / Comment(s): from liver cancer Mother Family Medical History: Cancer, CVA/TIA, Hypertension Additional Family Medical History / Comment(s): Mother had breast and colon cancer. She of liver cancer at the age of 77 yrs. Constitutional: No acute distress, conversant, pleasant Eyes: Anicteric sclerae, moist conjunctiva, no lid-lag PERRLA ENMT: Cranial nerves grossly intact Neck: Supple, FROM, no masses, or JVD No carotid bruits No thyromegaly Lungs: Clear to auscultation Clear to percussion Normal respiratory effort, no accessory muscle use Cardiovascular: Heart regular in rate and rhythm, No murmurs, gallops, or rubs No peripheral edema Abdominal: Abdomen soft with with epigastric tenderness Skin: Normal temperature, tone, texture, turgor No induration Extremities: No edema Psychiatric:Alert and oriented to person, place and time Appropriate affect Intact judgement Neuro: No focal weakness Vital Signs - 24 hr 02/18/18 02/18/18 02/18/18 04:19 06:48 08:17 Temperature 98.7 F Pulse Rate 90 87 79 Respiratory 23 20 18 Rate Blood Pressure 105/62 115/55 105/56 O2 Sat by Pulse 96 96 93 L Oximetry 02/18/18 09:02 Temperature 98.6 F Pulse Rate Respiratory Rate Blood Pressure O2 Sat by Pulse Oximetry Diabetes panel 02/18/18 Range/Units 05:03 Sodium 138 (137-145) mmol/L Potassium 3.8 (3.5-5.1) mmol/L Chloride 105 (98-107) mmol/L Carbon Dioxide 16 L (22-30) mmol/L BUN 17 (7-17) mg/dL Creatinine 2.40 H (0.52-1.04) mg/dL Glucose 175 H (74-99) mg/dL Calcium 9.4 (8.4-10.2) mg/dL AST 19 (14-36) U/L ALT 21 (9-52) U/L Alkaline Phosphatase 115 (38-126) U/L Total Protein 6.8 (6.3-8.2) g/dL Albumin 4.2 (3.5-5.0) g/dL Calcium panel 02/18/18 Range/Units 05:03 Calcium 9.4 (8.4-10.2) mg/dL Albumin 4.2 (3.5-5.0) g/dL Pituitary panel 02/18/18 Range/Units 05:03 Sodium 138 (137-145) mmol/L Potassium 3.8 (3.5-5.1) mmol/L Chloride 105 (98-107) mmol/L Carbon Dioxide 16 L (22-30) mmol/L BUN 17 (7-17) mg/dL Creatinine 2.40 H (0.52-1.04) mg/dL Glucose 175 H (74-99) mg/dL Calcium 9.4 (8.4-10.2) mg/dL Adrenal panel 02/18/18 Range/Units 05:03 Sodium 138 (137-145) mmol/L Potassium 3.8 (3.5-5.1) mmol/L Chloride 105 (98-107) mmol/L Carbon Dioxide 16 L (22-30) mmol/L BUN 17 (7-17) mg/dL Creatinine 2.40 H (0.52-1.04) mg/dL Glucose 175 H (74-99) mg/dL Calcium 9.4 (8.4-10.2) mg/dL Total Bilirubin 0.2 (0.2-1.3) mg/dL AST 19 (14-36) U/L ALT 21 (9-52) U/L Alkaline Phosphatase 115 (38-126) U/L Total Protein 6.8 (6.3-8.2) g/dL Albumin 4.2 (3.5-5.0) g/dL Assessment and plan Recurrent pancreatitis acute on chronic with continue pain management and IV hydration Leukocytosis likely due to persistent vomiting and also possible gastroenteritis We will check stool for C. diff We'll start empiric antibiotics including Rocephin and Flagyl DVT and GI prophylaxis We will also consult surgery Objective - Vital Signs Vital signs: Vital Signs Temp 98.6 F 02/18/18 09:02 Pulse 79 02/18/18 08:17 Resp 18 02/18/18 08:17 BP 105/56 02/18/18 08:17 Pulse Ox 93 L 02/18/18 08:17 Intake & Output 02/17/18 02/18/18 02/18/18 18:59 06:59 18:59 Weight 61.689 kg - Labs CBC & Chem 7: 02/18/18 05:03 02/18/18 05:03 Labs: Abnormal Lab Results - Last 24 Hours (Table) 02/18/18 02/18/18 Range/Units 05:03 05:03 WBC 25.7 H* (3.8-10.6) k/uL RDW 16.3 H (11.5-15.5) % Neutrophils # 22.3 H (1.3-7.7) k/uL Carbon Dioxide 16 L (22-30) mmol/L Creatinine 2.40 H (0.52-1.04) mg/dL Glucose 175 H (74-99) mg/dL Past Medical History Past Medical History: COPD, CVA/TIA, GERD/Reflux, Hypertension, Osteoarthritis ( OA), Rheumatoid Arthritis (RA) Additional Past Medical History / Comment(s): Recurrent pancreatitis, bronchitis , TIA, anemia-unknown cause, migraines, ostoeporosis, past R femur fracture with surgery. History of Any Multi-Drug Resistant Organisms: None Reported Past Surgical History: Appendectomy, Back Surgery, Cholecystectomy, Orthopedic Surgery, Tonsillectomy Additional Past Surgical History / Comment(s): Pancreatic stents-since removed, 6 back surgeries with 2 fusions, right oophorectomy due to ectopic , EGD/colonoscopy, right leg alice inserted d/t fracture Past Anesthesia/Blood Transfusion Reactions: No Reported Reaction Additional Past Anesthesia/Blood Transfusion Reaction / Comment(s): Pt has received blood in past without reaction. Past Psychological History: No Psychological Hx Reported Additional Psychological History / Comment(s): Pt resides with her spouse and 2 grandsons ages 12 and 18yrs. Pt states she is under alot of stress d/t spouse recent diagnosis of bipolar and refuses medications for this. She is independent. Smoking Status: Current every day smoker Past Alcohol Use History: None Reported Additional Past Alcohol Use History / Comment(s): Pt started smoking in 1980 and smokes 5-6 cigarettes per day Past Drug Use History: None Reported - Past Family History Father Family Medical History: Cancer, Liver Disease Additional Family Medical History / Comment(s): Father was an alcoholic. He from lung/ liver cancer. Mother Family Medical History: Cancer, CVA/TIA, Hypertension Additional Family Medical History / Comment(s): Mother had breast and colon cancer. She of liver cancer at the age of 78 yrs. Medications and Allergies Home Medications Medication Instructions Recorded Confirmed Type Lisinopril 40 mg PO BID 01/22/15 02/18/18 History Albuterol Inhaler [Ventolin Hfa 1 - 2 puff INHALATION RT-Q6H PRN 07/15/16 History Inhaler] Albuterol Nebulized [Ventolin 2.5 mg INHALATION RT-QID PRN 08/31/16 02/18/18 History Nebulized] Gabapentin [Neurontin] 800 mg PO QID 08/31/16 02/18/18 History Cyclobenzaprine [Flexeril] 10 mg PO TID PRN 02/18/18 02/18/18 History amLODIPine [Norvasc] 10 mg PO DAILY 02/18/18 02/18/18 History Allergies Allergy/AdvReac Type Severity Reaction Status Date / Time No Known Allergies Allergy Verified 02/18/18 07:20 Physical Exam Vitals: Vital Signs Temp Pulse Resp BP Pulse Ox 02/18/18 09:02 98.6 F 02/18/18 08:17 79 18 105/56 93 L 02/18/18 06:48 87 20 115/55 96 02/18/18 04:19 98.7 F 90 23 105/62 96 Intake and Output 02/17/18 02/18/18 02/18/18 22:59 06:59 14:59 Other: Weight 61.689 kg Results CBC & Chem 7: 02/18/18 05:03 02/18/18 05:03 Labs: Abnormal Lab Results - Last 24 Hours (Table) 02/18/18 02/18/18 Range/Units 05:03 05:03 WBC 25.7 H* (3.8-10.6) k/uL RDW 16.3 H (11.5-15.5) % Neutrophils # 22.3 H (1.3-7.7) k/uL Carbon Dioxide 16 L (22-30) mmol/L Creatinine 2.40 H (0.52-1.04) mg/dL Glucose 175 H (74-99) mg/dL Thrombosis Risk Factor Assmnt - Choose All That Apply Any of the Below Risk Factors Present?: Yes Each Factor Represents 1 point: Abnormal pulmonary function (COPD) Other Risk Factors: Yes Each Risk Factor Represents 2 Points: Age 61-74 years Other congenital or acquired thrombophilia - If yes, enter type in comment: No Thrombosis Risk Factor Assessment Total Risk Factor Score: 3 Thrombosis Risk Factor Assessment Level: Moderate Risk
[2018-02-18 11:44] LABS: Creatine Kinase MB 1.6 ng/mL (0.0-2.4)
[2018-02-18] MEDS: cefTRIAXone IN SWFI 1,000 MG/10 ML SYRINGE IVP SCH (12:40)
[2018-02-18] MEDS: GABAPENTIN 400 MG CAP PO SCH ×3 (12:43→22:40)
[2018-02-18] MEDS: ACETAMINOPHEN TAB 325 MG TAB PO PRN (12:48)
[2018-02-18] MEDS ORDERED: metroNIDAZOLE 500 MG TAB PO SCH (13:00)
[2018-02-18 14:09] VITALS: BMI 21.2
[2018-02-18] MEDS: metroNIDAZOLE-NS PMX 500 MG in SALINE 1 100ML.BAG IVPB SCH ×2 (16:00→23:30)
[2018-02-18 17:16] LABS: Creatine Kinase MB 1.6 ng/mL (0.0-2.4)
[2018-02-18] MEDS: BISMUTH SUBSALICYLATE 4,192 MG/240 ML BOTTLE PO PRN ×2 (17:21→22:40)
[2018-02-18] MEDS: BENZOCAINE/MENTHOL LOZENG 1 EACH LOZENGE MUCOUS MEM PRN ×2 (17:23→22:40)
[2018-02-18] MEDS: HEPARIN SODIUM,PORCINE 5,000 UNIT/ML 1 ML VIAL SQ SCH (20:26)
[2018-02-19] MEDS: MORPHINE SULFATE 2 MG/ML SYRINGE IVP PRN ×5 (02:24→21:22)
[2018-02-19] MEDS: ACETAMINOPHEN TAB 325 MG TAB PO PRN (04:33)
[2018-02-19] MEDS: BENZOCAINE/MENTHOL LOZENG 1 EACH LOZENGE MUCOUS MEM PRN ×4 (04:34→23:15)
[2018-02-19] MEDS ORDERED: SODIUM CHLORIDE 0.9% 500 ML IV ONE (08:11)
[2018-02-19] MEDS ORDERED: SODIUM CHLORIDE 0.9% 1,000 ML IV SCH (08:15)
[2018-02-19] MEDS: amLODIPine 10 MG TAB PO SCH (08:16)
[2018-02-19] MEDS: metroNIDAZOLE-NS PMX 500 MG in SALINE 1 100ML.BAG IVPB SCH ×2 (08:25→15:03)
[2018-02-19] MEDS: GABAPENTIN 400 MG CAP PO SCH ×4 (08:27→21:22)
[2018-02-19 08:28] LABS: Anisocytosis Slight; Basophils % (A) 0 %; Eosinophils # (A) 0.4 k/uL (0-0.7); Eosinophils % (A) 3 %; HCT 36.5 % (34.0-46.0); HGB 11.9 gm/dL (11.4-16.0); Lymphocytes # (A) 2.4 k/uL (1.0-4.8); Lymphocytes % (A) 14 %; MCH 27.9 pg (25.0-35.0); MCHC 32.6 g/dL (31.0-37.0); MCV 85.5 fL (80.0-100.0); Mean Platelet Volume 7.9; Monocytes # (A) 0.9 k/uL (0-1.0); Monocytes % (A) 5 %; Neutrophils # (A) 12.7 k/uL (1.3-7.7); Neutrophils % (A) 76 %; Platelet Count 345 k/uL (150-450); RBC 4.26 m/uL (3.80-5.40); RDW 16.1 % (11.5-15.5); WBC 16.6 k/uL (3.8-10.6)
[2018-02-19] MEDS: HEPARIN SODIUM,PORCINE 5,000 UNIT/ML 1 ML VIAL SQ SCH ×2 (08:28→20:12)
[2018-02-19 08:36] LABS: Albumin 3.5 g/dL (3.5-5.0); Calcium 9.2 mg/dL (8.4-10.2); Potassium 4.4 mmol/L (3.5-5.1); Total Bilirubin 0.4 mg/dL (0.2-1.3)
[2018-02-19] MEDS ORDERED: PANTOPRAZOLE 40 MG/10 ML VIAL IV SCH (09:00)
[2018-02-19 09:01] LABS: Appearance,Urine Clear (Clear); Bilirubin,Urine Negative (Negative); Blood,Urine Small (Negative); Color,Urine Light Yellow; Glucose,Urine (UA) Negative (Negative); Ketones,Urine Negative (Negative); Leukocyte Esterase,Urine Negative (Negative); Mucus,Urine Rare /hpf; Nitrite,Urine Negative (Negative); PH, Urine 5.5 (5.0-8.0); Protein,Urine Negative (Negative); RBC,Urine 2 /hpf (0-5); Specific Gravity,Urine 1.003 (1.001-1.035); Squamous Epithelial Cell,Urine 1 /hpf (0-4); Urobilinogen,Urine <2.0 mg/dL (<2.0); WBC,Urine 3 /hpf (0-5)
[2018-02-19] MEDS: cefTRIAXone IN SWFI 1,000 MG/10 ML SYRINGE IVP SCH (10:20)
--- NOTE | 2018-02-19 11:37 | P.PN ---
Subjective Progress Note Date: 02/19/18 Principal diagnosis: Patient is a 62-year-old female with a past medical history of recurrent pancreatitis, COPD, hypertension, gastric ulcer, and osteoarthritis who initially presented to the ER with complaints of vomiting, diarrhea, and abdominal pain. In the ER she underwent an extensive evaluation. Her initial vital signs were within normal limits. Initial laboratory analysis without white blood cell count of 25.7. She was also found to have acute kidney injury with a metabolic acidosis. CT abdomen and pelvis showed nonspecific distended loops of small bowel and fluid throughout the colon suggestive of diarrheal state. She was started on IV fluids and antibiotics. She was admitted to the general medical floor for further monitoring and care. The morning after admission her white blood cell count had greatly improved down to 16. Kidney function also improved. She has been tolerating her clear liquid diet abdominal pain was getting better. Patient seen and examined at bedside. She is asking to increase her diet as she has been tolerating a clear liquid diet. She is still having abdominal pain. She states that she has no longer vomiting. Her diarrhea has significantly improved. She is having a sore throat and cough. She denies any chest pain unusual shortness. She does have COPD. Objective - Vital Signs Vital signs: Vital Signs Temp 99.8 F H 02/19/18 05:00 Pulse 85 02/19/18 08:12 Resp 17 02/19/18 05:00 BP 110/62 02/19/18 08:12 Pulse Ox 96 02/19/18 05:00 Intake & Output 02/18/18 02/19/18 02/19/18 18:59 06:59 18:59 Intake Total 600 2029 Balance 600 2029 Weight 61.689 kg 61.689 kg Intake: Intake, IV Titration 100 Amount metroNIDAZOLE-NS PMX 500 100 mg In Saline 1 100ml.bag @ 100 mls/hr IVPB Q8HR [facility] Rx#:[id number] Oral 600 1930 Other: Voiding Method Toilet # Voids 2 3 - Exam General: non toxic, mild distress, appears at stated age Derm: warm, dry Head: atraumatic, normocephalic, symmetric Eyes: EOMI, no lid lag, anicteric sclera Mouth: no lip lesion, mucus membranes moist, + pharyngeal erythema, no thrush Cardiovascular: S1S2 reg, no murmur, positive posterior tibial pulse bilateral, Lungs: Decreased breath sounds bilateral bases, no rhonchi, no rales , no accessory muscle use Abdominal: soft, + tender to palpation. Umbilical, no guarding, no appreciable organomegaly Ext: no gross muscle atrophy, no edema, no contractures Neuro: CN II-XI grossly intact, no focal neuro deficits Psych: Alert, oriented, appropriate affect - Labs CBC & Chem 7: 02/19/18 07:38 02/19/18 07:38 Labs: Abnormal Lab Results - Last 24 Hours (Table) 02/19/18 02/19/18 02/19/18 Range/Units 07:38 07:38 08:45 WBC 16.6 H (3.8-10.6) k/uL RDW 16.1 H (11.5-15.5) % Neutrophils # 12.7 H (1.3-7.7) k/uL Chloride 113 H (98-107) mmol/L Carbon Dioxide 18 L (22-30) mmol/L Creatinine 1.29 H (0.52-1.04) mg/dL Total Protein 6.0 L (6.3-8.2) g/dL Urine Blood Small H (Negative) Urine Mucus Rare H (None) /hpf Microbiology - Last 24 Hours (Table) 02/18/18 12:00 Stool Culture - Preliminary Stool Assessment and Plan Assessment: Colitis with sepsis was evidenced by white blood cell count 25.6 and fever of 100.4 -Continue with Rocephin and Flagyl -Advance diet -Attempt to limit morphine by increasing [place] -Monitor for worsening diarrhea -Hope to DC in a.m. -Discussed with patient need for probable colonoscopy as outpatient if she has not one in the last several years -Patient does not have a PCP and will suggest some at discharge AUGUST, likely secondary to dehydration with diarrhea and vomiting -Improving -Repeat BMP in a.m. -Continue to hold lisinopril COPD without exacerbation -Continue with when necessary albuterol Hypertension, controlled -Continue off lisinopril secondary to acute kidney injury -Continue with Norvasc -Follow blood pressures Chronic: Osteoarthritis TIA Gastric ulcer DVT prophylaxis: Lovenox Discussed with: nursing, patient Anticipated discharge: 24-[address]: home A total of 35 minutes was spent on the care of this complex patient more than 50 % of the time was spent in counseling and care coordination.
[2018-02-19] MEDS: SODIUM CHLORIDE 0.45% 1,000 ML IV SCH ×2 (12:55→23:16)
[2018-02-19] MEDS: HYDROcodone/APAP 7.5-325MG 1 EACH TAB PO PRN ×2 (15:03→23:12)
[2018-02-19] MEDS: BISMUTH SUBSALICYLATE 4,192 MG/240 ML BOTTLE PO PRN (16:42)
[2018-02-19] MEDS: metroNIDAZOLE 500 MG TAB PO SCH (21:22)
[2018-02-20] MEDS: HYDROcodone/APAP 7.5-325MG 1 EACH TAB PO PRN ×3 (01:47→11:25)
[2018-02-20] MEDS: MORPHINE SULFATE 2 MG/ML SYRINGE IVP PRN ×2 (01:56→07:33)
[2018-02-20] MEDS: BENZOCAINE/MENTHOL LOZENG 1 EACH LOZENGE MUCOUS MEM PRN ×3 (04:45→12:36)
[2018-02-20 05:26] VITALS: RESP 18
[2018-02-20] MEDS: cefTRIAXone IN SWFI 1,000 MG/10 ML SYRINGE IVP SCH (07:27)
[2018-02-20] MEDS ORDERED: PANTOPRAZOLE 40 MG TABLET PO SCH (07:30)
[2018-02-20] MEDS: GABAPENTIN 400 MG CAP PO SCH ×2 (07:46→12:37)
[2018-02-20] MEDS: SODIUM CHLORIDE 0.45% 1,000 ML IV SCH (07:48)
[2018-02-20] MEDS: BISMUTH SUBSALICYLATE 4,192 MG/240 ML BOTTLE PO PRN (08:00)
[2018-02-20 08:27] VITALS: BP 126/80; PULSE 92
[2018-02-20 09:07] VITALS: TEMP 98.5
[2018-02-20 09:20] LABS: Anisocytosis Slight; HCT 39.7 % (34.0-46.0); HGB 12.4 gm/dL (11.4-16.0); Hypochromasia Slight; MCH 27.1 pg (25.0-35.0); MCHC 31.2 g/dL (31.0-37.0); MCV 86.8 fL (80.0-100.0); Mean Platelet Volume 8.2; Platelet Count 307 k/uL (150-450); RBC 4.57 m/uL (3.80-5.40); RDW 16.6 % (11.5-15.5); WBC 15.3 k/uL (3.8-10.6)
[2018-02-20 09:51] LABS: Anion Gap 9 mmol/L; Blood Urea Nitrogen 10 mg/dL (7-17); Calcium 9.2 mg/dL (8.4-10.2); Carbon Dioxide 19 mmol/L (22-30); Chloride 111 mmol/L (98-107); Glucose 116 mg/dL (74-99); Sodium 139 mmol/L (137-145)
[2018-02-20 10:04] LABS: Potassium 4.9 mmol/L (3.5-5.1)
[2018-02-20] MEDS: HEPARIN SODIUM,PORCINE 5,000 UNIT/ML 1 ML VIAL SQ SCH (10:20)
[2018-02-20] MEDS: metroNIDAZOLE 500 MG TAB PO SCH (10:20)
[2018-02-20] MEDS: amLODIPine 10 MG TAB PO SCH (10:21)
--- NOTE | 2018-02-20 11:58 | P.DS ---
Providers Date of admission: 02/18/18 06:48 Expected date of discharge: 02/20/18 Attending physician: Corky Purvis MD Primary care physician: Stated None - Discharge Diagnosis(es) (1) Colitis Current Visit: Yes Status: Acute (2) Sepsis Current Visit: Yes Status: Acute (3) COPD (chronic obstructive pulmonary disease) Current Visit: Yes Status: Acute (4) HTN (hypertension) Current Visit: Yes Status: Acute (5) Acute kidney injury Current Visit: Yes Status: Acute (6) Renal cyst Current Visit: Yes Status: Acute Hospital Course: Patient is a 62-year-old female with a past medical history of recurrent pancreatitis, COPD, hypertension, gastric ulcer, and osteoarthritis who initially presented to the ER with complaints of vomiting, diarrhea, and abdominal pain. In the ER she underwent an extensive evaluation. Her initial vital signs were within normal limits. Initial laboratory analysis without white blood cell count of 25.7. She was also found to have acute kidney injury with a metabolic acidosis. CT abdomen and pelvis showed nonspecific distended loops of small bowel and fluid throughout the colon suggestive of diarrheal state. She was started on IV fluids and antibiotics. She was admitted to the general medical floor for further monitoring and care. The morning after admission her white blood cell count had greatly improved down to 16. Kidney function also improved. She has been tolerating her clear liquid diet abdominal pain was getting better. her diet was regular and 02/19 and she tolerated this well. Her abdominal pain continued to decrease and her diarrhea was improving. Her white count decreased to 15.5. She was determined stable for discharge home. She will complete an outpatient course of Levaquin and Flagyl. She was also discharged home with a prescription for [place]. Patient has not been seeing a PCP for the last several months as there is retired. We set her up with Shameka Russ's office to be seen next week. she is not sure when her last colonoscopy was in the discussed the importance of colonoscopy if symptoms recur and to ensure that she does not have diverticulosis. All questions were answered and she was subsequently discharged. 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 Diarrhea decreasing. Tolerating her diet without nausea or vomiting. Vital signs reviewed and stable. General: non toxic, no distress, appears at stated age Derm: warm, dry Head: atraumatic, normocephalic, symmetric Eyes: EOMI, no lid lag, anicteric sclera Mouth: no lip lesion, mucus membranes moist Cardiovascular: S1S2 reg, no murmur, positive posterior tibial pulse bilateral, Lungs: CTA bilateral, no rhonchi, no rales , no accessory muscle use Abdominal: soft, tenderness to palpation epigastric, no guarding, no appreciable organomegaly Ext: no gross muscle atrophy, no edema, no contractures Neuro: CN II-XI grossly intact, no focal neuro deficits Psych: Alert, oriented, appropriate affect A total of 35 minutes of time were spent preparing this complex discharge summary. Pertinent Studies: Cynthia biliary dilatation possibly related to previous cholecystectomy, decompressed deformity of L1, 16 mm complex density right renal cyst Patient Condition at Discharge: Stable Plan - Discharge Summary Discharge Rx Participant: No New Discharge Prescriptions: New Levofloxacin [Levaquin] 500 mg PO DAILY #5 tab metroNIDAZOLE [Flagyl] 500 mg PO TID #17 tab HYDROcodone/APAP 7.5-325MG [[place] 7.5-325] 1 tab PO Q4H PRN 7 Days #41 tab PRN Reason: Pain Continue Lisinopril 40 mg PO BID Albuterol Inhaler [Ventolin Hfa Inhaler] 1 - 2 puff INHALATION RT-Q6H PRN PRN Reason: Shortness Of Breath Gabapentin [Neurontin] 800 mg PO QID Albuterol Nebulized [Ventolin Nebulized] 2.5 mg INHALATION RT-QID PRN PRN Reason: Shortness Of Breath amLODIPine [Norvasc] 10 mg PO DAILY Cyclobenzaprine [Flexeril] 10 mg PO TID PRN PRN Reason: Muscle Pain Discharge Medication List Lisinopril 40 mg PO BID 01/22/15 [History] Albuterol Inhaler [Ventolin Hfa Inhaler] 1 - 2 puff INHALATION RT-Q6H PRN [History] Albuterol Nebulized [Ventolin Nebulized] 2.5 mg INHALATION RT-QID PRN 08/31/16 [ History] Gabapentin [Neurontin] 800 mg PO QID 08/31/16 [History] Cyclobenzaprine [Flexeril] 10 mg PO TID PRN 02/18/18 [History] amLODIPine [Norvasc] 10 mg PO DAILY 02/18/18 [History] HYDROcodone/APAP 7.5-325MG [[place] 7.5-325] 1 tab PO Q4H PRN 7 Days #41 tab 02/20 [Rx] Levofloxacin [Levaquin] 500 mg PO DAILY #5 tab 02/20/18 [Rx] metroNIDAZOLE [Flagyl] 500 mg PO TID #17 tab 02/20/18 [Rx] Follow up Appointment(s)/Referral(s): Shameka Llanos [facility] [REFERRING] - 02/26/18 11:00 am Patient Instructions/Handouts: Hydrocodone/Acetaminophen (By mouth), Metronidazole (By mouth), Levofloxacin (By mouth), Acute Kidney Injury (DC), Acute Nausea and Vomiting (DC), Acute Diarrhea (GEN), Acute Abdominal Pain (DC) Activity/Diet/Wound Care/Special Instructions: Regular diet. Activity as tolerated. Seek medical advice if fevers, worsening diarrhea, worsening abdominal pain. Clarification: [place] may be used every 4 to 6 hours as needed Discharge Disposition: HOME SELF-CARE
== END 2018-02-20 14:25 | disposition home or self-care (01) | DRG 871 ==
LOC: EC 04:15 → 4MS4W 06:48 → 5MS5E 08:32
PROVIDERS: ADMIT Internal Medicine; ATTEND Internal Medicine
DX: A41.9 Sepsis, unspecified organism (principal); K85.90 Acute pancreatitis without necrosis or infection, unspecified; N17.9 Acute kidney failure, unspecified; E87.2 Acidosis; K86.1 Other chronic pancreatitis; N28.1 Cyst of kidney, acquired; K52.9 Noninfective gastroenteritis and colitis, unspecified; E86.0 Dehydration; J02.9 Acute pharyngitis, unspecified; J44.9 Chronic obstructive pulmonary disease, unspecified; K21.9 Gastro-esophageal reflux disease without esophagitis; M19.91 Primary osteoarthritis, unspecified site; M06.9 Rheumatoid arthritis, unspecified; I10 Essential (primary) hypertension; F17.210 Nicotine dependence, cigarettes, uncomplicated; Z71.6 Tobacco abuse counseling; Z79.899 Other long term (current) drug therapy; Z86.73 Personal history of transient ischemic attack (TIA), and cerebral infarction without residual deficits; Z87.11 Personal history of peptic ulcer disease; Z90.49 Acquired absence of other specified parts of digestive tract; Z98.1 Arthrodesis status; Z90.721 Acquired absence of ovaries, unilateral; Z87.81 Personal history of (healed) traumatic fracture; Z80.0 Family history of malignant neoplasm of digestive organs; Z82.49 Family history of ischemic heart disease and other diseases of the circulatory system; Z80.3 Family history of malignant neoplasm of breast; Z82.3 Family history of stroke; Z81.1 Family history of alcohol abuse and dependence
CPT/HCPCS: 36415; 74018; 74176; 80048; 80053; 81001; 82150; 82550; 82553; 83690; 85025; 85027; 87040; 87045; 87046; 87324; 93005; 96361; 96374; 96375; 99285

== ENCOUNTER 2018-03-11 04:13 | Inpatient (IN) | payer BC ==
[2018-03-11] MEDS ORDERED: SODIUM CHLORIDE 0.9% 1,000 ML IV STA (04:28)
[2018-03-11] MEDS ORDERED: ONDANSETRON 4 MG/2 ML VIAL IVP STA (04:28)
[2018-03-11] MEDS ORDERED: PANTOPRAZOLE 40 MG/10 ML VIAL IVP STA (05:13)
[2018-03-11] MEDS ORDERED: MORPHINE SULFATE 2 MG/ML SYRINGE IVP STA ×2 (05:13→08:58)
[2018-03-11 05:30] LABS: Basophils % (A) 0 %; Eosinophils # (A) 0.3 k/uL (0-0.7); Eosinophils % (A) 2 %; HCT 40.8 % (34.0-46.0); HGB 13.4 gm/dL (11.4-16.0); Lymphocytes # (A) 2.3 k/uL (1.0-4.8); Lymphocytes % (A) 18 %; MCH 27.5 pg (25.0-35.0); MCHC 32.8 g/dL (31.0-37.0); MCV 84.1 fL (80.0-100.0); Mean Platelet Volume 6.7; Monocytes # (A) 0.9 k/uL (0-1.0); Monocytes % (A) 7 %; Neutrophils # (A) 9.2 k/uL (1.3-7.7); Neutrophils % (A) 72 %; Platelet Count 444 k/uL (150-450); RBC 4.85 m/uL (3.80-5.40); RDW 15.9 % (11.5-15.5); WBC 12.9 k/uL (3.8-10.6)
[2018-03-11 05:38] LABS: ALT 27 U/L (9-52); AST 25 U/L (14-36); Albumin 4.3 g/dL (3.5-5.0); Alkaline Phosphatase 87 U/L (38-126); Anion Gap 11 mmol/L; Blood Urea Nitrogen 17 mg/dL (7-17); Calcium 9.9 mg/dL (8.4-10.2); Carbon Dioxide 18 mmol/L (22-30); Chloride 109 mmol/L (98-107); Glucose 133 mg/dL (74-99); Potassium 4.2 mmol/L (3.5-5.1); Sodium 138 mmol/L (137-145); Total Bilirubin 0.8 mg/dL (0.2-1.3); Total Protein 7.5 g/dL (6.3-8.2)
[2018-03-11 05:48] LABS: Creatine Kinase 69 U/L (30-135)
--- NOTE | 2018-03-11 05:52 | ED ---
General Adult HPI - General Chief complaint: Abdominal Pain Stated complaint: Abdominal Pain Time Seen by Provider: 03/11/18 04:28 Source: patient, RN notes reviewed, old records reviewed Mode of arrival: wheelchair Limitations: no limitations - History of Present Illness Initial comments: This is a 60-year-old female the ER for evasive severe abdominal pain. Patient states she cannot keep anything down. Severe epigastric abdominal pain with nausea vomiting. Patient states she has history of panic otitis this feels like her prior history of pancreatitis. No recent travel history no sick contacts no change in medication. - Related Data Home Medications Medication Instructions Recorded Confirmed Lisinopril 40 mg PO BID 01/22/15 02/18/18 Albuterol Inhaler [Ventolin Hfa 1 - 2 puff INHALATION RT-Q6H PRN 07/15/16 Inhaler] Albuterol Nebulized [Ventolin 2.5 mg INHALATION RT-QID PRN 08/31/16 02/18/18 Nebulized] Gabapentin [Neurontin] 800 mg PO QID 08/31/16 02/18/18 Cyclobenzaprine [Flexeril] 10 mg PO TID PRN 02/18/18 02/18/18 amLODIPine [Norvasc] 10 mg PO DAILY 02/18/18 02/18/18 Previous Rx's Medication Instructions Recorded HYDROcodone/APAP 7.5-325MG [[place] 1 tab PO Q4H PRN 7 Days #41 tab 02/20/18 7.5-325] Levofloxacin [Levaquin] 500 mg PO DAILY #5 tab 02/20/18 metroNIDAZOLE [Flagyl] 500 mg PO TID #17 tab 02/20/18 Allergies Allergy/AdvReac Type Severity Reaction Status Date / Time No Known Allergies Allergy Verified 03/11/18 04:18 Review of Systems ROS Statement: Those systems with pertinent positive or pertinent negative responses have been documented in the HPI. ROS Other: All systems not noted in ROS Statement are negative. Past Medical History Past Medical History: COPD, CVA/TIA, GERD/Reflux, Hypertension, Osteoarthritis ( OA), Rheumatoid Arthritis (RA) Additional Past Medical History / Comment(s): Recurrent pancreatitis, bronchitis , TIA, anemia-unknown cause, migraines, ostoeporosis, past R femur fracture with surgery. History of Any Multi-Drug Resistant Organisms: None Reported Past Surgical History: Appendectomy, Back Surgery, Cholecystectomy, Orthopedic Surgery, Tonsillectomy Additional Past Surgical History / Comment(s): Pancreatic stents-since removed, 6 back surgeries with 2 fusions, right oophorectomy due to ectopic , EGD/colonoscopy, right leg alice inserted d/t fracture Past Anesthesia/Blood Transfusion Reactions: No Reported Reaction Additional Past Anesthesia/Blood Transfusion Reaction / Comment(s): Pt has received blood in past without reaction. Past Psychological History: No Psychological Hx Reported Smoking Status: Current every day smoker Past Alcohol Use History: None Reported Past Drug Use History: None Reported - Past Family History Father Family Medical History: Cancer, Liver Disease Additional Family Medical History / Comment(s): Father was an alcoholic. He from lung/ liver cancer. Mother Family Medical History: Cancer, CVA/TIA, Hypertension Additional Family Medical History / Comment(s): Mother had breast and colon cancer. She of liver cancer at the age of 78 yrs. General Exam Limitations: no limitations General appearance: alert, in no apparent distress, anxious Head exam: Present: atraumatic, normocephalic, normal inspection Eye exam: Present: normal appearance, PERRL, EOMI. Absent: scleral icterus, conjunctival injection, periorbital swelling ENT exam: Present: normal exam, mucous membranes moist Neck exam: Present: normal inspection. Absent: tenderness, meningismus, lymphadenopathy Respiratory exam: Present: normal lung sounds bilaterally. Absent: respiratory distress, wheezes, rales, rhonchi, stridor Cardiovascular Exam: Present: regular rate, normal rhythm, normal heart sounds. Absent: systolic murmur, diastolic murmur, rubs, gallop, clicks GI/Abdominal exam: Present: soft, tenderness (. Umbilical and epigastric), normal bowel sounds. Absent: distended, guarding, rebound, rigid Extremities exam: Present: normal inspection, full ROM, normal capillary refill. Absent: tenderness, pedal edema, joint swelling, calf tenderness Back exam: Present: normal inspection Neurological exam: Present: alert, oriented X3, CN II-XII intact Psychiatric exam: Present: normal affect, normal mood Skin exam: Present: warm, dry, intact, normal color. Absent: rash Course Vital Signs 03/11/18 03/11/18 04:15 05:38 Temperature 98.4 F Pulse Rate 85 69 Respiratory 18 20 Rate Blood Pressure 113/74 162/72 O2 Sat by Pulse 97 94 L Oximetry - Reevaluation(s) Reevaluation #1: 03/11/18 06:17 Patient's symptoms improved with pain control Medical Decision Making - Medical Decision Making 62 female the ER for evaluation of severe nausea vomiting or abdominal pain. Significant pancreatitis, will be admitted for IV hydration and nothing by mouth state - Lab Data Result diagrams: 03/11/18 05:20 03/11/18 05:20 Lab Results 03/11/18 03/11/18 03/11/18 Range/Units 05:20 05:20 05:20 WBC 12.9 H (3.8-10.6) k/uL RBC 4.85 (3.80-5.40) m/uL Hgb 13.4 (11.4-16.0) gm/dL Hct 40.8 (34.0-46.0) % MCV 84.1 (80.0-100.0) fL MCH 27.5 (25.0-35.0) pg MCHC 32.8 (31.0-37.0) g/dL RDW 15.9 H (11.5-15.5) % Plt Count 444 (150-450) k/uL Neutrophils % 72 % Lymphocytes % 18 % Monocytes % 7 % Eosinophils % 2 % Basophils % 0 % Neutrophils # 9.2 H (1.3-7.7) k/uL Lymphocytes # 2.3 (1.0-4.8) k/uL Monocytes # 0.9 (0-1.0) k/uL Eosinophils # 0.3 (0-0.7) k/uL Basophils # 0.0 (0-0.2) k/uL Sodium 138 (137-145) mmol/L Potassium 4.2 (3.5-5.1) mmol/L Chloride 109 H (98-107) mmol/L Carbon Dioxide 18 L (22-30) mmol/L Anion Gap 11 mmol/L BUN 17 (7-17) mg/dL Creatinine 0.90 (0.52-1.04) mg/dL Est GFR (CKD-EPI)AfAm 80 (>60 ml/min/1.73 sqM) Est GFR (CKD-EPI)NonAf 69 (>60 ml/min/1.73 sqM) Glucose 133 H (74-99) mg/dL Plasma Lactic Acid Derek (0.7-2.0) mmol/L Calcium 9.9 (8.4-10.2) mg/dL Total Bilirubin 0.8 (0.2-1.3) mg/dL AST 25 (14-36) U/L ALT 27 (9-52) U/L Alkaline Phosphatase 87 (38-126) U/L Total Creatine Kinase 69 (30-135) U/L CK-MB (CK-2) 1.1 (0.0-2.4) ng/mL CK-MB (CK-2) Rel Index 1.6 Troponin I <0.012 (0.000-0.034) ng/mL Total Protein 7.5 (6.3-8.2) g/dL Albumin 4.3 (3.5-5.0) g/dL Amylase 1813 H* (30-110) U/L Lipase >99360 H (23-300) U/L 03/11/18 Range/Units 05:20 WBC (3.8-10.6) k/uL RBC (3.80-5.40) m/uL Hgb (11.4-16.0) gm/dL Hct (34.0-46.0) % MCV (80.0-100.0) fL MCH (25.0-35.0) pg MCHC (31.0-37.0) g/dL RDW (11.5-15.5) % Plt Count (150-450) k/uL Neutrophils % % Lymphocytes % % Monocytes % % Eosinophils % % Basophils % % Neutrophils # (1.3-7.7) k/uL Lymphocytes # (1.0-4.8) k/uL Monocytes # (0-1.0) k/uL Eosinophils # (0-0.7) k/uL Basophils # (0-0.2) k/uL Sodium (137-145) mmol/L Potassium (3.5-5.1) mmol/L Chloride (98-107) mmol/L Carbon Dioxide (22-30) mmol/L Anion Gap mmol/L BUN (7-17) mg/dL Creatinine (0.52-1.04) mg/dL Est GFR (CKD-EPI)AfAm (>60 ml/min/1.73 sqM) Est GFR (CKD-EPI)NonAf (>60 ml/min/1.73 sqM) Glucose (74-99) mg/dL Plasma Lactic Acid Derek 1.2 (0.7-2.0) mmol/L Calcium (8.4-10.2) mg/dL Total Bilirubin (0.2-1.3) mg/dL AST (14-36) U/L ALT (9-52) U/L Alkaline Phosphatase (38-126) U/L Total Creatine Kinase (30-135) U/L CK-MB (CK-2) (0.0-2.4) ng/mL CK-MB (CK-2) Rel Index Troponin I (0.000-0.034) ng/mL Total Protein (6.3-8.2) g/dL Albumin (3.5-5.0) g/dL Amylase (30-110) U/L Lipase (23-300) U/L Disposition Clinical Impression: Acute on chronic pancreatitis Disposition: ADMITTED IP TO THIS [facility] Condition: Fair Is patient prescribed a controlled substance at d/c from ED?: No Referrals: Reyes Russ MD [Primary Care Provider] - 1-2 days
[2018-03-11 05:58] LABS: Amylase 1813 U/L (30-110)
[2018-03-11 06:01] LABS: Creatine Kinase MB 1.1 ng/mL (0.0-2.4); Troponin I <0.012 ng/mL (0.000-0.034)
[2018-03-11 06:11] LABS: Lipase >20000 U/L (23-300)
[2018-03-11] MEDS ORDERED: SODIUM CHLORIDE 0.9% 1,000 ML IV ONE (06:14)
[2018-03-11] MEDS ORDERED: ONDANSETRON 4 MG/2 ML VIAL IVP PRN (06:16)
[2018-03-11] MEDS: PANTOPRAZOLE 40 MG/10 ML VIAL IVP SCH (08:44)
[2018-03-11] MEDS: MORPHINE SULFATE 2 MG/ML SYRINGE IVP PRN ×4 (08:52→21:04)
[2018-03-11] MEDS ORDERED: LORazepam 2 MG/ML INJ IV PRN (08:56)
[2018-03-11] MEDS ORDERED: ACETAMINOPHEN TAB 325 MG TAB PO PRN (08:56)
[2018-03-11] MEDS ORDERED: NALOXONE 0.4 MG/ML 1 ML VIAL IV PRN (08:56)
[2018-03-11] MEDS ORDERED: NICOTINE POLACRILEX 2 MG GUM BUCCAL PRN (08:58)
[2018-03-11] MEDS ORDERED: ALBUTEROL NEBULIZED 2.5 MG/3 ML INHALATION PRN (08:59)
[2018-03-11] MEDS ORDERED: ALBUTEROL INHALER 60 PUFF/8 GM INHALER INHALATION PRN (08:59)
--- NOTE | 2018-03-11 09:13 | P.HPIM ---
History of Present Illness H&P Date: 03/11/18 Chief Complaint: abdominal pain 2-year-old female with a past medical history of COPD, TIA, GERD, hypertension, and recurrent pancreatitis who presented to the emergency department with complaints of abdominal pain. In the ER she underwent an extensive evaluation. Her vital signs within normal limits on arrival. Laboratory analysis showed a slight hyperchloremic metabolic acidosis him a glucose 133, amylase 1813, and lipase greater than 20,000. She was started on IV fluids and given pain medications. Arrangements were made for admission to the general medical floor. Patient seen and examined at bedside. She complains of vomiting that started 4 days ago. She then started developing abdominal pain. She describes it as epigastric with radiation intermittently to her back. She describes it as feeling like she is birthing a baby underneath her ribs. She states that she has been unable to keep down liquids or solids due to her vomiting. She's had a decreased appetite and has lost approximately 2 pounds. She denies any fevers or chills. She is having loose stools diarrhea. She denies any constipation. She is not having any dysuria. She tried at home Tums, Rolaids, and an 8 additional and acid all without relief. The pain and vomiting continued to increase in severity and she therefore presented to the emergency department. She was recently hospitalized here from 02/18-02/20 colitis. She completed her course of antibiotics and saw Shameka Foster nurse practitioner on 02/26. She states this is completely different than her colitis. She has not had any dietary changes. She denies drinking any alcohol. She has a history of cholecystectomy with her first bout of pancreatitis. Her last episode of pancreatitis was in April 2017. Records were reviewed from that hospitalization and her workup for autoimmune hepatitis was negative. Review of Systems Positive: + Vomiting, + abdominal pain, + decreased appetite Pertinent positives and negatives as discussed in HPI, a complete review of systems was performed and all other systems are negative. Past Medical History Past Medical History: COPD, CVA/TIA, GERD/Reflux, Hypertension, Osteoarthritis ( OA), Rheumatoid Arthritis (RA) Additional Past Medical History / Comment(s): Pt recently admitted to [facility] on with colitis/sepsis/R renal cyst. Other hx: Recurrent pancreatitis, bronchitis, TIA, anemia-unknown cause, migraines, ostoeporosis, past R femur fracture with surgery. History of Any Multi-Drug Resistant Organisms: None Reported Past Surgical History: Appendectomy, Back Surgery, Cholecystectomy, Orthopedic Surgery, Tonsillectomy Additional Past Surgical History / Comment(s): Pancreatic stents-since removed, 6 back surgeries with 2 fusions, right oophorectomy due to ectopic , EGD/colonoscopy, right leg alice inserted d/t fracture Past Anesthesia/Blood Transfusion Reactions: No Reported Reaction Additional Past Anesthesia/Blood Transfusion Reaction / Comment(s): Pt has received blood in past without reaction. Smoking Status: Current every day smoker Additional Drug Use History / Comment(s): Currently smoking 1/4 PPD - Past Family History Father Family Medical History: Cancer, Liver Disease Additional Family Medical History / Comment(s): Father was an alcoholic. He from lung/ liver cancer. Mother Family Medical History: Cancer, CVA/TIA, Hypertension Additional Family Medical History / Comment(s): Mother had breast and colon cancer. She of liver cancer at the age of 78 yrs. Medications and Allergies Home Medications Medication Instructions Recorded Confirmed Type Albuterol Inhaler [Ventolin Hfa 1 - 2 puff INHALATION RT-Q6H PRN 07/15/16 History Inhaler] Albuterol Nebulized [Ventolin 2.5 mg INHALATION RT-QID PRN 08/31/16 03/11/18 History Nebulized] Gabapentin [Neurontin] 800 mg PO QID 08/31/16 03/11/18 History amLODIPine [Norvasc] 10 mg PO DAILY 02/18/18 03/11/18 History HYDROcodone/APAP 7.5-325MG [[place] 1 tab PO Q4H PRN 7 Days #41 tab 02/20/1803/11 Rx 7.5-325] Allergies Allergy/AdvReac Type Severity Reaction Status Date / Time No Known Allergies Allergy Verified 03/11/18 06:44 Physical Exam Osteopathic Statement: *. No significant issues noted on an osteopathic structural exam other than those noted in the History and Physical/Consult. Vitals: Vital Signs Temp Pulse Pulse Resp BP BP Pulse Ox 03/11/18 07:13 98.4 F 60 16 110/72 95 03/11/18 05:38 69 20 162/72 94 L 03/11/18 04:15 98.4 F 85 18 113/74 97 Intake and Output 03/10/18 03/11/18 03/11/18 22:59 06:59 14:59 Other: Weight 61.689 kg General: non toxic, mild distress, appears at stated age, normal weight Derm: no unusual rashes/lesions no unusual ecchymoses, warm, dry Head: atraumatic, normocephalic, symmetric Eyes: EOMI, no lid lag, anicteric sclera, pupils equal round reactive to light ENT: Nose and ears atraumatic, no thrush, no pharyngeal erythema Neck: No thyromegaly, no cervical lymphadenopathy, trachea midline, supple Mouth: no lip lesion, ages membranes dry Cardiovascular: S1S2 reg, no murmur, positive posterior tibial pulse bilateral, no edema, capillary refill less than 2 seconds Lungs: CTA bilateral, no rhonchi, no rales , no accessory muscle use Abdominal: soft, + tender to palpation epigastric, no guarding, no appreciable organomegaly, normal bowel sounds, pain with deep inspiration Ext: no gross muscle atrophy, muscle strength 5 out of 5 in all 4 extremities grossly, no contractures, Neuro: CN II-XI grossly intact, light touch intact all 4 extremities, finger to nose within normal limits, Psych: Alert, oriented, appropriate affect Results CBC & Chem 7: 03/11/18 05:20 03/11/18 05:20 Labs: Abnormal Lab Results - Last 24 Hours (Table) 03/11/18 03/11/18 Range/Units 05:20 05:20 WBC 12.9 H (3.8-10.6) k/uL RDW 15.9 H (11.5-15.5) % Neutrophils # 9.2 H (1.3-7.7) k/uL Chloride 109 H (98-107) mmol/L Carbon Dioxide 18 L (22-30) mmol/L Glucose 133 H (74-99) mg/dL Amylase 1813 H* (30-110) U/L Lipase >88050 H (23-300) U/L Thrombosis Risk Factor Assmnt - DVT/VTE Prophylaxis DVT/VTE Prophylaxis: Pharmacologic Prophylaxis ordered - Choose All That Apply Any of the Below Risk Factors Present?: Yes Each Factor Represents 1 point: Abnormal pulmonary function (COPD) Other Risk Factors: Yes Each Risk Factor Represents 2 Points: Age 61-74 years Other congenital or acquired thrombophilia - If yes, enter type in comment: No Thrombosis Risk Factor Assessment Total Risk Factor Score: 3 Thrombosis Risk Factor Assessment Level: Moderate Risk Assessment and Plan Assessment: Probable recurrent acute pancreatitis -Elevated amylase and lipase -Check CT abdomen and pelvis -Additional 1 L of lactated Ringer's then start LR at 200 MLS per hour -Pain control -Nothing by mouth other than patient's -If any signs of complication or worsening we'll consult GI -Status post cholecystectomy and autoimmune pancreatitis of workup was negative Hyperchloremic metabolic acidosis -Likely due to decreased oral intake -IV fluids -Repeat in a.m. Tobacco abuse -Cessation -Nicotine replacement GERD - transition to IV PPI while NPO COPD without exacerbation -Resume when necessary home albuterol Hypertension -Hold Norvasc -Follow blood pressures -attempt to avoid as needed hydralazine due to pancreatitis The patient is admitted with an anticipated greater than 2 midnight stay for evaluation of pancreatitis and dehydration. Surrogate decision-maker: - Isac CODE STATUS: Full DVT prophylaxis: Lovenox Discussed with: Patient, nursing, food demonstrator Anticipated discharge date: 2-[address]: home A total of 65 minutes was spent on the care of this complex patient more than 50 % of the time was spent in counseling and care coordination.
[2018-03-11] MEDS ORDERED: LACTATED RINGERS 1,000 ML IV ONE (09:15)
[2018-03-11] MEDS: LACTATED RINGERS 1,000 ML IV SCH ×3 (10:22→21:05)
[2018-03-11] MEDS: ENOXAPARIN 40 MG/0.4 ML SYRINGE SQ SCH (10:24)
--- NOTE | 2018-03-11 11:16 | CT ---
EXAMINATION TYPE: CT abdomen pelvis wo con DATE OF EXAM: 03/11/2018 COMPARISON: 02/18/2018 HISTORY: 62 year-old female abdominal pain, Follow up for possible pancreatitis, recent colitis. CT DLP: 796 mGycm. Automated exposure control for dose reduction was used. TECHNIQUE: Contiguous axial scanning of the abdomen and pelvis without IV contrast. Coronal and sagit rody reconstructions performed. FINDINGS: Heart normal size without pericardial effusion. Minimal nodular infiltrate peripheral right lower lob e axial image 1 and 2. Dependent atelectasis is present without pleural effusion. Patient is status post cholecystectomy with continued intrahepatic and extra hepatic biliary ductal d ilatation measuring up to 1 cm. This is relatively similar to prior exam and again, correlation can b e made to exclude biliary obstruction. Otherwise, noncontrast appearance of the liver, adrenal glands, kidneys, and spleen shows no gross ab normality. Redemonstrated soft tissue density 1.5 cm lesion anterior lower pole right kidney which warrants foll ow-up to ensure stability. There is a new peripancreatic fat stranding along the pancreatic head region, for example, axial imag e 31. No dilated small bowel or there are prominent fluid-filled small bowel loops in the lower abdomen and pelvis as seen previously. Liquid stool remains throughout the colon. Left-sided colonic diverticulo sis without pericolonic inflammatory change. No mesenteric or retroperitoneal lymphadenopathy. Bladder urine distended. Uterus is visualized. Ovaries not clearly delineated from adjacent bowel loo ps. No abnormal fluid collection in the pelvis or pelvic lymphadenopathy. Bones: Retrograde intramedullary nail within the visualized upper right femur. Mild degenerative adan ges at the hips. Extensive metal hardware artifact related to the patient's posterior and interbody l umbar fusion hardware. L2 superior endplate compression deformity remains unchanged from recent prior . IMPRESSION: 1. Redemonstrated intrahepatic and extra hepatic biliary ductal dilatation. Clinically correlate wit h signs/symptoms and laboratory values to exclude biliary obstruction. No obvious obstructing lesion is seen in the lower bile duct. 2. Some new strandy densities around the pancreatic head region. Mild acute interstitial pancreatiti s not excluded. Correlate with amylase and lipase. 3. Continued liquid stool throughout the colon could reflect ileus or enteritis. 4. Left-sided colonic diverticulosis without acute diverticulitis. 5. 6 month follow-up CT to ensure stability of the suspected 1.5 cm complicated cyst anterior lower pole right kidney.
[2018-03-11 12:42] LABS: Appearance,Urine Cloudy (Clear); Bilirubin,Urine Negative (Negative); Blood,Urine Small (Negative); Color,Urine Yellow; Glucose,Urine (UA) Negative (Negative); Hyaline Casts,Urine 3 /lpf (0-2); Ketones,Urine Negative (Negative); Leukocyte Esterase,Urine Large (Negative); Mucus,Urine Moderate /hpf; Nitrite,Urine Negative (Negative); PH, Urine 5.5 (5.0-8.0); Protein,Urine Trace (Negative); RBC,Urine 4 /hpf (0-5); Specific Gravity,Urine 1.017 (1.001-1.035); Squamous Epithelial Cell,Urine 11 /hpf (0-4); WBC,Urine 13 /hpf (0-5)
[2018-03-11 13:18] VITALS: BMI 21.2
[2018-03-12] MEDS: MORPHINE SULFATE 2 MG/ML SYRINGE IVP PRN ×6 (01:06→22:07)
[2018-03-12] MEDS: LACTATED RINGERS 1,000 ML IV SCH ×5 (05:19→22:09)
[2018-03-12] MEDS: ENOXAPARIN 40 MG/0.4 ML SYRINGE SQ SCH (08:34)
[2018-03-12] MEDS: PANTOPRAZOLE 40 MG/10 ML VIAL IVP SCH (08:34)
--- NOTE | 2018-03-12 09:24 | P.CONS ---
History of Present Illness - Reason for Consult Consult date: 03/12/18 Recurrent pancreatitis Requesting physician: Kaylee Tavarez - History of Present Illness 62-year-old female with a history cholecystectomy, chronic biliary ductal dilatation with normal liver enzymes, recurrent idiopathic pancreatitis auto immune workup year ago unremarkable presents with recurrent upper abdominal back pain 1 week without fever or elevated pancreatic enzymes. Admission amylase 1813. Lipase greater than 20,000 presently 508. White count 12.9 presently 4.7. Hemoglobin 11.5. Total bilirubin 0.8. AST 25. ALT 27. AP 87. No changes in medications. No history of alcoholism. No recent alcohol consumption. CT abdomen and pelvis reported new peripancreatic fat stranding along the pancreatic head region. Intrahepatic connection hepatic biliary ductal dilatation measuring up to 1 cm relatively similar to prior exam. Scheduled to be reevaluated in the GI office April [address] Clark. No history of MRI/ MRCP. Denies acholic stools or change in color of her urine. 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 Review of Systems Constitutional: Denies fever, chills, sweats, weight gain, or loss. HEENT: Negative for migraines, blurred vision or loss, earaches, drainage, tinnitus, oral mucosal lesions, dysphagia, or odynophagia. CARDIAC: Negative for chest pain, arrhythmias, or palpitation. RESPIRATORY: Negative for shortness of breath, hemoptysis, cough, or sputum production. GI: See HPI for pertinent findings. : Negative for hematuria, urgency, frequency, polyuria, or dysuria. GYNc: Negative vaginal discharge. MUSCULOSKELETAL: Negative for muscle aches, swelling, arthritis, and arthralgias. NEUROLOGIC: Negative for stroke or TIA. ENDOCRINE: Negative for thyroid problems. SKIN: Negative for rash or itching. PSYCHIATRIC: Negative history for depression and anxiety Past Medical History Past Medical History: COPD, CVA/TIA, GERD/Reflux, Hypertension, Osteoarthritis ( OA), Rheumatoid Arthritis (RA) Additional Past Medical History / Comment(s): Pt recently admitted to [facility] on with colitis/sepsis/R renal cyst. Other hx: Recurrent pancreatitis, bronchitis, TIA, anemia-unknown cause, migraines, ostoeporosis, past R femur fracture with surgery. History of Any Multi-Drug Resistant Organisms: None Reported Past Surgical History: Appendectomy, Back Surgery, Cholecystectomy, Orthopedic Surgery, Tonsillectomy Additional Past Surgical History / Comment(s): Pancreatic stents-since removed, 6 back surgeries with 2 fusions, right oophorectomy due to ectopic , EGD/colonoscopy, right leg alice inserted d/t fracture Past Anesthesia/Blood Transfusion Reactions: No Reported Reaction Additional Past Anesthesia/Blood Transfusion Reaction / Comm: Pt has received blood in past without reaction. Smoking Status: Current every day smoker Additional Drug Use History / Comment(s): Currently smoking 1/4 PPD - Past Family History Father Family Medical History: Cancer, Liver Disease Additional Family Medical History / Comment(s): Father was an alcoholic. He from lung/ liver cancer. Mother Family Medical History: Cancer, CVA/TIA, Hypertension Additional Family Medical History / Comment(s): Mother had breast and colon cancer. She of liver cancer at the age of 78 yrs. Medications and Allergies Home Medications Medication Instructions Recorded Confirmed Type Albuterol Inhaler [Ventolin Hfa 1 - 2 puff INHALATION RT-Q6H PRN 07/15/16 History Inhaler] Albuterol Nebulized [Ventolin 2.5 mg INHALATION RT-QID PRN 08/31/16 03/11/18 History Nebulized] Gabapentin [Neurontin] 800 mg PO QID 08/31/16 03/11/18 History amLODIPine [Norvasc] 10 mg PO DAILY 02/18/18 03/11/18 History HYDROcodone/APAP 7.5-325MG [Jennings 1 tab PO Q4H PRN 7 Days #41 tab 02/20/1803/11 Rx 7.5-325] Allergies Allergy/AdvReac Type Severity Reaction Status Date / Time No Known Allergies Allergy Verified 03/11/18 06:44 Physical Exam Vitals: Vital Signs Temp Pulse Resp BP Pulse Ox 03/12/18 08:04 97.5 F L 55 L 16 123/80 94 L 03/11/18 21:00 98.2 F 55 L 18 126/56 92 L 03/11/18 15:05 98.1 F 50 L 16 110/58 93 L Intake and Output 03/11/18 03/12/18 03/12/18 22:59 06:59 14:59 Other: Voiding Method Toilet Toilet # Voids 1 2 Weight 61.689 kg General appearance: The patient is alert, oriented, in no acute distress. HET: Head is normocephalic and atraumatic. Pupils are equal and reactive. Oropharynx is clear without lesions. Neck: Supple without lymphadenopathy. Trachea midline. Heart: S1 S2. Regular rate and rhythm. Lungs: No crackles or wheezes are heard. Abdomen: Soft, mild midepigastric left upper quadrant tenderness, nondistended with bowel sounds. No peritoneal signs. No palpable organomegaly or masses. Extremities: Normal skin color and turgor. No cyanosis, rash, ulceration, clubbing, or edema. Radial and pedal pulses are 2/4 bilaterally. Neurological: No focal deficits. Strength and sensation are grossly intact. Results CBC & Chem 7: 03/12/18 08:52 03/12/18 08:52 Labs: Abnormal Lab Results - Last 24 Hours (Table) 03/11/18 Range/Units 12:17 Urine Appearance Cloudy H (Clear) Urine Protein Trace H (Negative) Urine Blood Small H (Negative) Ur Leukocyte Esterase Large H (Negative) Urine WBC 13 H (0-5) /hpf Ur Squamous Epith Cells 11 H (0-4) /hpf Hyaline Casts 3 H (0-2) /lpf Urine Mucus Moderate H (None) /hpf CT scan - abdomen: report reviewed (Dr. Braden) Assessment and Plan (1) Acute on chronic pancreatitis Narrative/Plan: 62-year-old female with a history of cholecystectomy and recurrent idiopathic pancreatitis admitted with recurrent pancreatitis as well as radiographic imaging re-demonstrating chronic dilation of intra-and extrahepatic biliary ducts with normal liver enzymes. Autoimmune workup 1 year ago unremarkable. Current Visit: Yes Status: Acute Code(s): K85.90 - ACUTE PANCREATITIS WITHOUT NECROSIS OR INFECTION, UNSP; K86.1 - OTHER CHRONIC PANCREATITIS SNOMED Code(s): 805368202 Plan: 1. Liquid diet; abdominal pain and pancreatic enzymes improving. MRCP/MRI pancreas with and without contrast scheduled for tomorrow; this will allow additional time for pancreatitis to settle down and allow for better MRI imaging. Consideration for outpatient EUS pending MRI findings. 2. CA-19-9 marker. 3. IV hydration GI prophylaxis supportive measures. We'll continue to follow with you. Thank you for this kind referral and the opportunity to participate in the care of your patient. This consultation was discussed with Dr. Braden. The impression and plan of care have been directed as dictated.
[2018-03-12 09:25] LABS: HCT 35.8 % (34.0-46.0); HGB 11.5 gm/dL (11.4-16.0); MCH 27.9 pg (25.0-35.0); MCHC 32.2 g/dL (31.0-37.0); MCV 86.5 fL (80.0-100.0); Mean Platelet Volume 6.9; Platelet Count 364 k/uL (150-450); RBC 4.14 m/uL (3.80-5.40); WBC 4.7 k/uL (3.8-10.6)
[2018-03-12 09:43] LABS: AST 25 U/L (14-36); Albumin 3.6 g/dL (3.5-5.0); Alkaline Phosphatase 66 U/L (38-126); Anion Gap 8 mmol/L; Blood Urea Nitrogen 9 mg/dL (7-17); Calcium 9.2 mg/dL (8.4-10.2); Carbon Dioxide 22 mmol/L (22-30); Chloride 110 mmol/L (98-107); Glucose 81 mg/dL (74-99); Phosphorus 4.1 mg/dL (2.5-4.5); Potassium 4.1 mmol/L (3.5-5.1); Sodium 140 mmol/L (137-145); Total Bilirubin 0.9 mg/dL (0.2-1.3); Total Protein 6.1 g/dL (6.3-8.2)
[2018-03-12 09:44] LABS: ALT 25 U/L (9-52); Lipase 508 U/L (23-300); Magnesium 1.6 mg/dL (1.6-2.3)
--- NOTE | 2018-03-12 11:21 | P.PN ---
Subjective Progress Note Date: 03/12/18 Principal diagnosis: abdominal pain Mrs. Jenkins is a 62-year-old female with a past medical history of COPD, TIA, GERD, hypertension, and recurrent pancreatitis who presented to the emergency department with complaints of abdominal pain. In the ER she underwent an extensive evaluation. Her vital signs within normal limits on arrival. Laboratory analysis showed a slight hyperchloremic metabolic acidosis him a glucose 133, amylase 1813, and lipase greater than 20,000. She was started on IV fluids and given pain medications. Arrangements were made for admission to the general medical floor. She was stated started on lactated Ringer's and made nothing by mouth. Head CT scan demonstrated intrahepatic and extrahepatic biliary ductal dilatation. As well as new stranding around the pancreatic head consistent with mild acute interstitial pancreatitis. Liquid stool throughout the colon reflective of ileus or enteritis. GI was consulted. Patient seen and examined at bedside. No chest pain, shortness of breath. Abdominal pain is feeling better and nausea and vomiting has resolved. Still with some abdominal pain but improved. Morphine is wearing off in between doses. All questions answered. Objective - Vital Signs Vital signs: Vital Signs Temp 97.5 F L 03/12/18 08:04 Pulse 55 L 03/12/18 08:04 Resp 16 03/12/18 08:04 BP 123/80 03/12/18 08:04 Pulse Ox 94 L 03/12/18 08:04 Intake & Output 03/11/18 03/12/18 03/12/18 18:59 06:59 18:59 Intake Total 1150 Balance 1150 Weight 61.689 kg 61.689 kg Intake: Intake, IV Titration 1150 Amount Lactated Ringers 1,000 ml 200 @ 200 mls/hr IV .Q5H [facility] Rx#:[id number] Lactated Ringers 1,000 ml 950 @ 350 mls/hr IV .Q2H52M [facility] Rx#:[id number] Other: Voiding Method Toilet Toilet Toilet # Voids 2 - Exam General: non toxic, no distress, appears at stated age Derm: warm, dry Head: atraumatic, normocephalic, symmetric Eyes: EOMI, no lid lag, anicteric sclera Mouth: no lip lesion, mucus membranes moist Cardiovascular: S1S2 reg, no murmur, positive posterior tibial pulse bilateral, Lungs: CTA bilateral, no rhonchi, no rales , no accessory muscle use Abdominal: soft, tender to palpation periumbilical, no guarding, no appreciable organomegaly Ext: no gross muscle atrophy, no edema, no contractures Neuro: CN II-XI grossly intact, no focal neuro deficits Psych: Alert, oriented, appropriate affect - Labs CBC & Chem 7: 03/12/18 08:52 03/12/18 08:52 Labs: Abnormal Lab Results - Last 24 Hours (Table) 03/11/18 03/12/18 03/12/18 Range/Units 12:17 08:52 08:52 RDW 16.0 H (11.5-15.5) % Chloride 110 H (98-107) mmol/L Total Protein 6.1 L (6.3-8.2) g/dL Lipase 508 H (23-300) U/L Urine Appearance Cloudy H (Clear) Urine Protein Trace H (Negative) Urine Blood Small H (Negative) Ur Leukocyte Esterase Large H (Negative) Urine WBC 13 H (0-5) /hpf Ur Squamous Epith Cells 11 H (0-4) /hpf Hyaline Casts 3 H (0-2) /lpf Urine Mucus Moderate H (None) /hpf Assessment and Plan Assessment: Recurrent idiopathic acute pancreatitis -decrease LR - placed on full liquids - GI recs appreciated plan is for MRI in AM -Pain control - Chronically dilated bile ducts. -Status post cholecystectomy and autoimmune pancreatitis of workup was negative Hypertension -Resume norvasc in AM GERD - transition to oral PPI COPD without exacerbation -Resume when necessary home albuterol Tobacco abuse -Cessation -Nicotine replacement Hyperchloremic metabolic acidosis, improved DVT prophylaxis: Lovenox Discussed with: Patient, nursing Anticipated discharge date:03/[address]: home A total of 25 minutes was spent on the care of this complex patient more than 50 % of the time was spent in counseling and care coordination.
[2018-03-12] MEDS: GABAPENTIN 400 MG CAP PO SCH ×2 (18:08→22:09)
[2018-03-13] MEDS ORDERED: MORPHINE SULFATE 2 MG/ML SYRINGE ONE (02:00)
[2018-03-13] MEDS: LACTATED RINGERS 1,000 ML IV SCH ×3 (05:34→21:53)
[2018-03-13] MEDS: MORPHINE SULFATE 2 MG/ML SYRINGE IVP PRN ×5 (06:08→21:55)
[2018-03-13 07:41] LABS: HCT 37.7 % (34.0-46.0); HGB 12.4 gm/dL (11.4-16.0); MCH 28.4 pg (25.0-35.0); MCHC 32.8 g/dL (31.0-37.0); MCV 86.4 fL (80.0-100.0); Mean Platelet Volume 6.9; Platelet Count 366 k/uL (150-450); RBC 4.36 m/uL (3.80-5.40); RDW 15.8 % (11.5-15.5); WBC 6.6 k/uL (3.8-10.6)
--- NOTE | 2018-03-13 07:42 | XR ---
EXAMINATION TYPE: XR chest 1V DATE OF EXAM: 03/13/2018 COMPARISON: 09/08/2016 HISTORY: 62 year-old female shortness of breath, question fluid overload TECHNIQUE: Single frontal view of the chest is obtained. FINDINGS: Heart normal size. Aorta and pulmonary vasculature are within normal limits. Hyperinflation with relative upper lobe hailey encies. There is a minimal patchy density at the peripheral right midlung. Partially visualized lumbar fusion hardware. IMPRESSION: 1. COPD. 2. Minimal patchy opacity peripheral right midlung not seen previously could represent atelectasis or early developing infiltrate. Follow-up can be considered. 3. No specific radiographic findings of fluid overload.
[2018-03-13 08:01] LABS: Albumin 4.1 g/dL (3.5-5.0); Potassium 4.7 mmol/L (3.5-5.1); Total Bilirubin 0.5 mg/dL (0.2-1.3)
[2018-03-13] MEDS: GABAPENTIN 400 MG CAP PO SCH ×4 (08:54→23:17)
[2018-03-13] MEDS: ENOXAPARIN 40 MG/0.4 ML SYRINGE SQ SCH (08:54)
[2018-03-13] MEDS: amLODIPine 10 MG TAB PO SCH (08:55)
[2018-03-13] MEDS: PANTOPRAZOLE 40 MG TABLET PO SCH (08:55)
--- NOTE | 2018-03-13 09:19 | P.PN ---
Subjective Progress Note Date: 03/13/18 Principal diagnosis: Pancreatitis Feeling better. Pancreas enzymes normalized. CA-19-9 within normal limits. Afebrile. MRI scheduled this afternoon. Objective - Vital Signs Vital signs: Vital Signs Temp 98 F 03/13/18 06:08 Pulse 53 L 03/13/18 06:08 Resp 18 03/13/18 06:08 BP 129/60 03/13/18 06:08 Pulse Ox 96 03/13/18 06:08 Intake & Output 03/12/18 03/13/18 03/13/18 18:59 06:59 18:59 Intake Total 1600 Balance 1600 Intake: Intake, IV Titration 1600 Amount Lactated Ringers 1,000 ml 1600 @ 150 mls/hr IV .Q6H40M [facility] Rx#:[id number] Other: Voiding Method Toilet Toilet Toilet # Voids 4 - Exam General appearance: The patient is alert, oriented, in no acute distress. HET: Head is normocephalic and atraumatic. Pupils are equal and reactive. Oropharynx is clear without lesions. Neck: Supple without lymphadenopathy. Trachea midline. Heart: S1 S2. Regular rate and rhythm. Lungs: No crackles or wheezes are heard. Abdomen: Soft, mild midepigastric left upper quadrant tenderness, nondistended with bowel sounds. No peritoneal signs. No palpable organomegaly or masses. Extremities: Normal skin color and turgor. No cyanosis, rash, ulceration, clubbing, or edema. Radial and pedal pulses are 2/4 bilaterally. Neurological: No focal deficits. Strength and sensation are grossly intact. - Labs CBC & Chem 7: 03/13/18 07:16 03/13/18 07:16 Labs: Abnormal Lab Results - Last 24 Hours (Table) 03/12/18 03/12/18 03/13/18 Range/Units 08:52 08:52 07:16 RDW 16.0 H 15.8 H (11.5-15.5) % Chloride 110 H (98-107) mmol/L Glucose (74-99) mg/dL Total Protein 6.1 L (6.3-8.2) g/dL Lipase 508 H (23-300) U/L 03/13/18 Range/Units 07:16 RDW (11.5-15.5) % Chloride (98-107) mmol/L Glucose 101 H (74-99) mg/dL Total Protein (6.3-8.2) g/dL Lipase (23-300) U/L Assessment and Plan (1) Acute on chronic pancreatitis Narrative/Plan: 62-year-old female with a history of cholecystectomy and recurrent idiopathic pancreatitis admitted with recurrent pancreatitis as well as radiographic imaging re-demonstrating chronic dilation of intra-and extrahepatic biliary ducts with normal liver enzymes. Autoimmune workup 1 year ago unremarkable. Current Visit: Yes Status: Acute Code(s): K85.90 - ACUTE PANCREATITIS WITHOUT NECROSIS OR INFECTION, UNSP; K86.1 - OTHER CHRONIC PANCREATITIS SNOMED Code(s): 610141853 Plan: 1. MRCP/MRI pancreas this afternoon. Light diet after MRI is completed. Further recommendations forthcoming after review MRI. Continue supportive measures. Continue GI prophylaxis. Assessment and plan a care discussed with Dr. Braden
--- NOTE | 2018-03-13 10:23 | P.PN ---
Subjective Progress Note Date: 03/13/18 Principal diagnosis: abdominal pain Mrs. Jenkins is a 62-year-old female with a past medical history of COPD, TIA, GERD, hypertension, and recurrent pancreatitis who presented to the emergency department with complaints of abdominal pain. In the ER she underwent an extensive evaluation. Her vital signs within normal limits on arrival. Laboratory analysis showed a slight hyperchloremic metabolic acidosis him a glucose 133, amylase 1813, and lipase greater than 20,000. She was started on IV fluids and given pain medications. Arrangements were made for admission to the general medical floor. She was stated started on lactated Ringer's and made nothing by mouth. Head CT scan demonstrated intrahepatic and extrahepatic biliary ductal dilatation. As well as new stranding around the pancreatic head consistent with mild acute interstitial pancreatitis. Liquid stool throughout the colon reflective of ileus or enteritis. GI was consulted and recommended MRCP. She was advanced to a full liquid diet on the morning of and was tolerating well. Patient seen and examined at bedside. Tolerating diet but not taking in much as if eats to much at once has pain, will not advance diet. Denies chest pain and shortness of breath. Abdominal pain is feeling better. No nausea or vomiting. All questions answered. Objective - Vital Signs Vital signs: Vital Signs Temp 98 F 03/13/18 06:08 Pulse 53 L 03/13/18 06:08 Resp 18 03/13/18 06:08 BP 129/60 03/13/18 06:08 Pulse Ox 96 03/13/18 06:08 Intake & Output 03/12/18 03/13/18 03/13/18 18:59 06:59 18:59 Intake Total 1600 Balance 1600 Weight 61.689 kg Intake: Intake, IV Titration 1600 Amount Lactated Ringers 1,000 ml 1600 @ 150 mls/hr IV .Q6H40M [facility] Rx#:[id number] Other: Voiding Method Toilet Toilet Toilet # Voids 4 - Exam General: non toxic, no distress, appears at stated age Derm: warm, dry Head: atraumatic, normocephalic, symmetric Eyes: EOMI, no lid lag, anicteric sclera Mouth: no lip lesion, mucus membranes moist Cardiovascular: S1S2 reg, no murmur, positive posterior tibial pulse bilateral, Lungs: CTA bilateral, no rhonchi, no rales , no accessory muscle use Abdominal: soft, tender to palpation periumbilical, no guarding, no appreciable organomegaly Ext: no gross muscle atrophy, no edema, no contractures Neuro: CN II-XI grossly intact, no focal neuro deficits Psych: Alert, oriented, appropriate affect - Labs CBC & Chem 7: 03/13/18 07:16 07 07:16 Labs: Abnormal Lab Results - Last 24 Hours (Table) 03/13/18 03/13/18 Range/Units 07:16 07:16 RDW 15.8 H (11.5-15.5) % Glucose 101 H (74-99) mg/dL Assessment and Plan Assessment: Recurrent idiopathic acute pancreatitis - LR - Full liquid diet - GI recs appreciated plan is for MRI in AM - Pain control - Chronically dilated bile ducts. - Status post cholecystectomy and autoimmune pancreatitis of workup was negative Hypertension -Resume norvasc GERD - PPI COPD without exacerbation -Resume when necessary home albuterol Tobacco abuse -Cessation -Nicotine replacement Hyperchloremic metabolic acidosis, improved DVT prophylaxis: Lovenox Discussed with: Patient, nursing, davidson Anticipated discharge date:03/[address]: home A total of 25 minutes was spent on the care of this complex patient more than 50 % of the time was spent in counseling and care coordination.
[2018-03-13] MEDS ORDERED: LORazepam 2 MG/ML INJ IV ONE (13:30)
--- NOTE | 2018-03-13 15:17 | MR ---
EXAMINATION TYPE: MR pancreas / mrcp wo/w con DATE OF EXAM: 03/13/2018 COMPARISON: CT abdomen and pelvis from 2 days ago with multiple older chest CTs HISTORY: Abdomen pain, nausea, vomiting, recurrent pancreatitis dilated CBD CONTRAST: Standard multiplanar, multisequence MRI departmental protocol utilizing 6.5 mL intravenous Gadavist g adolinium contrast. Thin and thick slice MRCP imaging is performed. FINDINGS: There is some motion artifact degradation seen making evaluation suboptimal. PANCREAS/GB/LIVER/BILIARY SYSTEM: Gallbladder is surgically absent. Liver is overall normal in size. There is persistent moderate central intrahepatic and extrahepatic biliary dilatation with tortuous c ourse of the common bile duct. This is dilated to 11 mm coronal image 17 series 501. There is moderat e dilatation of the pancreatic duct most prominent in the proximal body and head measuring up to 6 mm coronal image 15. Neither duct is well seen near the ampulla. Etiology uncertain as there is no obvi ous obstructing mass or stricture. There is abrupt nonvisualization of both structures near level of ampulla. There are some scattered calcifications throughout the pancreas on CT with larger calculus i n head coronal image 37 noted. Pancreas is otherwise slightly atrophic in appearance. OTHER: Lung bases are grossly clear. Spleen and both adrenal glands are normal in size. No concerning renal mass or hydronephrosis present bilaterally. There is subcentimeter exophytic cyst laterally up per pole level right kidney coronal image 29 and axial image 23 series 801 noted. There is no suspici ous small or large bowel dilatation. Visualized osseous structures show artifact from surgical change in the lumbar spine. IMPRESSION: Moderate biliary and pancreatic ductal dilatation without obstructing mass or stricture clearly seen. Etiology uncertain. Correlation with ERCP is advised to exclude focal ampullary mass or stricture.
[2018-03-13] MEDS: HYDROcodone/APAP 5-325MG 1 EACH TAB PO PRN (19:56)
[2018-03-14] MEDS: MORPHINE SULFATE 2 MG/ML SYRINGE IVP PRN ×3 (02:21→10:40)
[2018-03-14 08:14] LABS: Albumin 4.1 g/dL (3.5-5.0); Calcium 9.6 mg/dL (8.4-10.2); Potassium 4.6 mmol/L (3.5-5.1); Total Bilirubin 0.4 mg/dL (0.2-1.3)
[2018-03-14] MEDS: amLODIPine 10 MG TAB PO SCH (09:05)
[2018-03-14] MEDS: PANTOPRAZOLE 40 MG TABLET PO SCH (09:05)
[2018-03-14] MEDS: GABAPENTIN 400 MG CAP PO SCH ×2 (09:06→12:41)
[2018-03-14] MEDS: ENOXAPARIN 40 MG/0.4 ML SYRINGE SQ SCH (09:06)
--- NOTE | 2018-03-14 09:15 | P.PN ---
Subjective Progress Note Date: 03/14/18 Principal diagnosis: Pancreatitis Feels better. Minimal abdominal discomfort. Pancreatic enzymes normalized. MRI pancreas completed results discussed with patient; moderate biliary and pancreatic duct dilatation without obstructing mass stricture clearly seen. Etiology unclear. Scattered calcifications throughout the pancreas slightly atrophic in appearance. Objective - Vital Signs Vital signs: Vital Signs Temp 98.1 F 03/14/18 05:00 Pulse 68 03/14/18 05:00 Resp 16 03/14/18 05:00 BP 109/69 03/14/18 05:00 Pulse Ox 96 03/14/18 05:00 Intake & Output 03/13/18 03/14/18 03/14/18 18:59 06:59 18:59 Intake Total 700 720 Balance 700 720 Weight 61.689 kg 61.689 kg Intake: Intake, IV Titration 700 Amount Lactated Ringers 1,000 ml 700 @ 75 mls/hr IV .[id number] [facility] Rx#:[id number] Oral 720 Other: Voiding Method Toilet Toilet - Exam General appearance: The patient is alert, oriented, in no acute distress. HET: Head is normocephalic and atraumatic. Pupils are equal and reactive. Oropharynx is clear without lesions. Neck: Supple without lymphadenopathy. Trachea midline. Heart: S1 S2. Regular rate and rhythm. Lungs: No crackles or wheezes are heard. Abdomen: Soft, very mild midepigastric left upper quadrant tenderness, nondistended with bowel sounds. No peritoneal signs. No palpable organomegaly or masses. Extremities: Normal skin color and turgor. No cyanosis, rash, ulceration, clubbing, or edema. Radial and pedal pulses are 2/4 bilaterally. Neurological: No focal deficits. Strength and sensation are grossly intact. - Labs CBC & Chem 7: 03/13/18 07:16 03/14/18 07:34 Labs: Abnormal Lab Results - Last 24 Hours (Table) 03/14/18 Range/Units 07:34 Glucose 111 H (74-99) mg/dL Assessment and Plan (1) Acute on chronic pancreatitis Narrative/Plan: 62-year-old female with a history of calculus cholecystectomy and recurrent idiopathic pancreatitis admitted with recurrent pancreatitis as well as radiographic imaging re-demonstrating chronic dilation of intra-and extrahepatic biliary ducts with normal liver enzymes. Autoimmune workup 1 year ago unremarkable. Etiology of pancreatitis and biliary ductal dilation is unclear. Current Visit: Yes Status: Acute Code(s): K85.90 - ACUTE PANCREATITIS WITHOUT NECROSIS OR INFECTION, UNSP; K86.1 - OTHER CHRONIC PANCREATITIS SNOMED Code(s): 565577284 Plan: 1. Considering liver enzymes are normal ERCP is not advised at this time recommend outpatient referral for EUS. Discharge per medicine. Return to office in 2-3 weeks for reevaluation. All questions were answered to patient's satisfaction. Assessment and plan a care discussed with Dr. Braden
--- NOTE | 2018-03-14 11:45 | P.DS ---
Providers Date of admission: 03/11/18 06:16 Expected date of discharge: 03/14/18 Attending physician: Blanka Orr MD Consults: 03/11/18 16:15 Consult Physician Routine Consulting Provider: Zoya Clark Consult Reason/Comments: recurrent pancreatitis Do you want consulting provider notified?: Yes Primary care physician: Reyse Russ [facility] Course: Discharge Diagnosis: Recurrent Idiopathic Acute Pancreatitis Dilated Pancreatic ducts HTN GERD COPD wtihout exacerbation Tobacco abuse Hyperchloremic Metabolic Acidosis Hospital Course: Mrs. Jenkins is a 62-year-old female with a past medical history of COPD, TIA, GERD, hypertension, and recurrent pancreatitis who presented to the emergency department with complaints of abdominal pain. In the ER she underwent an extensive evaluation. Her vital signs within normal limits on arrival. Laboratory analysis showed a slight hyperchloremic metabolic acidosis him a glucose 133, amylase 1813, and lipase greater than 20,000. She was started on IV fluids and given pain medications. Arrangements were made for admission to the general medical floor. She was stated started on lactated Ringer's and made nothing by mouth. Head CT scan demonstrated intrahepatic and extrahepatic biliary ductal dilatation. As well as new stranding around the pancreatic head consistent with mild acute interstitial pancreatitis. Liquid stool throughout the colon reflective of ileus or enteritis. GI was consulted and recommended MRCP. She was advanced to a full liquid diet on the morning of and was tolerating well. She underwent MRCP which showed dilated biliary and pancreatic ducts. GI is going to coordinate EUS when she is seen in their office. Her diet was advanced to low fat and she tolerated this well. She was determined stable for discharge home. Patient's CT also demonstrated a complex renal cyst and they recommend f/u in 6 months. She will see Dr. Clark on Apr 10 and will follow with Shameka Russ's [employer]. Patient seen and examined at bedside. No chest pain, shortness of breath, nausea, or vomiting. Abdominal pain is improved and she feels she can manage at home with oral pain medications. She is aware of follow-up needed as listed above. Vital signs reviewed and stable. General: non toxic, no distress, appears at stated age Derm: warm, dry Head: atraumatic, normocephalic, symmetric Eyes: EOMI, no lid lag, anicteric sclera Mouth: no lip lesion, mucus membranes moist Cardiovascular: S1S2 reg, no murmur, positive posterior tibial pulse bilateral, Lungs: CTA bilateral, no rhonchi, no rales , no accessory muscle use Abdominal: soft, + tender to palpation RUQ, no guarding, no appreciable organomegaly Ext: no gross muscle atrophy, no edema, no contractures Neuro: CN II-XI grossly intact, no focal neuro deficits Psych: Alert, oriented, appropriate affect A total of 40 minutes of time were spent preparing this complex discharge summary . Pertinent Studies: CT abdomen and pelvis-dilated intrahepatic and extrahepatic biliary ducts, mild acute interstitial pancreatitis, left-sided colonic diverticulosis, complex cyst right kidney. MRCP-moderate biliary and pancreatic ductal dilatation. Correlation with ERCP recommended. Patient Condition at Discharge: Good Plan - Discharge Summary Discharge Rx Participant: No New Discharge Prescriptions: New HYDROcodone/APAP 5-325MG [[place] 5-325] 1 each PO Q6HR PRN #28 tab PRN Reason: Moderate Pain Continue Albuterol Inhaler [Ventolin Hfa Inhaler] 1 - 2 puff INHALATION RT-Q6H PRN PRN Reason: Shortness Of Breath Gabapentin [Neurontin] 800 mg PO QID Albuterol Nebulized [Ventolin Nebulized] 2.5 mg INHALATION RT-QID PRN PRN Reason: Shortness Of Breath amLODIPine [Norvasc] 10 mg PO DAILY Discontinued HYDROcodone/APAP 7.5-325MG [[place] 7.5-325] 1 tab PO Q4H PRN 7 Days #41 tab PRN Reason: Pain Discharge Medication List Albuterol Inhaler [Ventolin Hfa Inhaler] 1 - 2 puff INHALATION RT-Q6H PRN [History] Albuterol Nebulized [Ventolin Nebulized] 2.5 mg INHALATION RT-QID PRN 08/31/16 [ History] Gabapentin [Neurontin] 800 mg PO QID 08/31/16 [History] amLODIPine [Norvasc] 10 mg PO DAILY 02/18/18 [History] HYDROcodone/APAP 5-325MG [[place] 5-325] 1 each PO Q6HR PRN #28 tab 03/14/18 [Rx] Follow up Appointment(s)/Referral(s): Zoya Clark MD [STAFF PHYSICIAN] - 04/10/18 3:30 pm Reyes Russ MD [Primary Care Provider] - 03/15/18 2:00 pm Patient Instructions/Handouts: How to Stop Smoking (DC), Pancreatitis (DC), Cigarette Smoking and Your Health (GEN), Full Liquid Diet (DC) Activity/Diet/Wound Care/Special Instructions: Low fat diet Activity as tolerated CT in 6 months to review renal cyst Discharge Disposition: HOME SELF-CARE
[2018-03-14] MEDS: HYDROcodone/APAP 5-325MG 1 EACH TAB PO PRN (12:44)
[2018-03-14 15:10] VITALS: BP 119/62; PULSE 62; RESP 18; TEMP 98.2
== END 2018-03-14 15:45 | disposition home or self-care (01) | DRG 439 ==
LOC: EC 04:13 → 5MS5E 06:16
PROVIDERS: ADMIT Internal Medicine; ATTEND Internal Medicine
DX: K85.00 Idiopathic acute pancreatitis without necrosis or infection (principal); E87.2 Acidosis; K56.7 Ileus, unspecified; K86.1 Other chronic pancreatitis; E86.0 Dehydration; F17.200 Nicotine dependence, unspecified, uncomplicated; I10 Essential (primary) hypertension; J44.9 Chronic obstructive pulmonary disease, unspecified; K21.9 Gastro-esophageal reflux disease without esophagitis; K52.9 Noninfective gastroenteritis and colitis, unspecified; M06.9 Rheumatoid arthritis, unspecified; N28.1 Cyst of kidney, acquired; Z79.899 Other long term (current) drug therapy; Z80.0 Family history of malignant neoplasm of digestive organs; Z81.1 Family history of alcohol abuse and dependence; Z82.49 Family history of ischemic heart disease and other diseases of the circulatory system; Z86.73 Personal history of transient ischemic attack (TIA), and cerebral infarction without residual deficits; Z90.49 Acquired absence of other specified parts of digestive tract; Z90.721 Acquired absence of ovaries, unilateral; Z87.81 Personal history of (healed) traumatic fracture; Z79.891 Long term (current) use of opiate analgesic; K82.8 Other specified diseases of gallbladder; K57.30 Diverticulosis of large intestine without perforation or abscess without bleeding
CPT/HCPCS: 36415; 71045; 74176; 74183; 80053; 81001; 82150; 82550; 82553; 83605; 83690; 83735; 84100; 84484; 85025; 85027; 86301; 96361; 96374; 96375; 99285

== ENCOUNTER 2018-03-16 18:48 | Emergency (ER) | payer BC ==
[2018-03-16] MEDS ORDERED: MORPHINE SULFATE 4 MG/ML SYRINGE IV STA (19:23)
[2018-03-16] MEDS ORDERED: ONDANSETRON 4 MG/2 ML VIAL IVP STA (19:23)
[2018-03-16] MEDS ORDERED: SODIUM CHLORIDE 0.9% 1,000 ML IV STA ×2 (19:23)
[2018-03-16] MEDS ORDERED: KETOROLAC 30 MG/ML 1 ML VIAL IVP STA (19:23)
--- NOTE | 2018-03-16 19:25 | ED ---
Abdominal Pain HPI - General Chief Complaint: Abdominal Pain Stated Complaint: pancreatitis Time Seen by Provider: 03/16/18 19:15 Source: patient, RN notes reviewed, old records reviewed Mode of arrival: wheelchair Limitations: no limitations - History of Present Illness Initial Comments: This Patient is a 62-year-old female presents emergency department today chief complaint of abdominal pain and left sided and epigastric region. She was recently admitted and discharged for pancreatitis. She reports that she feels like is returning again. Patient states that since her discharge on she's been having vomiting and severe nausea and abdominal pain. Patient states that when she was recently admitted she had a CT and MRIs. She reports no bloody stools or bloody emesis. No fevers or chills. No chest pain or shortness of breath. - Related Data Home Medications Medication Instructions Recorded Confirmed Albuterol Inhaler [Ventolin Hfa 1 - 2 puff INHALATION RT-Q6H PRN 07/15/16 Inhaler] Albuterol Nebulized [Ventolin 2.5 mg INHALATION RT-QID PRN 08/31/16 03/11/18 Nebulized] Gabapentin [Neurontin] 800 mg PO QID 08/31/16 03/11/18 amLODIPine [Norvasc] 10 mg PO DAILY 02/18/18 03/11/18 Previous Rx's Medication Instructions Recorded HYDROcodone/APAP 5-325MG [[place] 1 each PO Q6HR PRN #28 tab 03/14/18 5-325] Famotidine [Pepcid] 20 mg PO BID #20 tablet 03/16/18 Ondansetron [Zofran] 4 mg PO Q8HR PRN #8 tab 03/16/18 Allergies Allergy/AdvReac Type Severity Reaction Status Date / Time No Known Allergies Allergy Verified 03/16/18 19:04 Review of Systems ROS Statement: Those systems with pertinent positive or pertinent negative responses have been documented in the HPI. ROS Other: All systems not noted in ROS Statement are negative. Past Medical History Past Medical History: COPD, CVA/TIA, GERD/Reflux, Hypertension, Osteoarthritis ( OA), Rheumatoid Arthritis (RA) Additional Past Medical History / Comment(s): Pt recently admitted to [facility] on with colitis/sepsis/R renal cyst. Other hx: Recurrent pancreatitis, bronchitis, TIA, anemia-unknown cause, migraines, ostoeporosis, past R femur fracture with surgery. History of Any Multi-Drug Resistant Organisms: None Reported Past Surgical History: Appendectomy, Back Surgery, Cholecystectomy, Orthopedic Surgery, Tonsillectomy Additional Past Surgical History / Comment(s): Pancreatic stents-since removed, 6 back surgeries with 2 fusions, right oophorectomy due to ectopic , EGD/colonoscopy, right leg alice inserted d/t fracture Past Anesthesia/Blood Transfusion Reactions: No Reported Reaction Additional Past Anesthesia/Blood Transfusion Reaction / Comment(s): Pt has received blood in past without reaction. Past Psychological History: No Psychological Hx Reported Smoking Status: Current every day smoker Past Alcohol Use History: None Reported Past Drug Use History: None Reported - Past Family History Father Family Medical History: Cancer, Liver Disease Additional Family Medical History / Comment(s): Father was an alcoholic. He from lung/ liver cancer. Mother Family Medical History: Cancer, CVA/TIA, Hypertension Additional Family Medical History / Comment(s): Mother had breast and colon cancer. She of liver cancer at the age of 78 yrs. General Exam - General Exam Comments Initial Comments: This is a 62-year-old female. Alert and oriented. No significant distress. Limitations: no limitations General appearance: alert, in no apparent distress Head exam: Present: atraumatic, normocephalic, normal inspection Eye exam: Present: normal appearance, PERRL, EOMI. Absent: scleral icterus, conjunctival injection, periorbital swelling ENT exam: Present: normal exam, mucous membranes moist Neck exam: Present: normal inspection. Absent: tenderness, meningismus, lymphadenopathy Respiratory exam: Present: normal lung sounds bilaterally. Absent: respiratory distress, wheezes, rales, rhonchi, stridor Cardiovascular Exam: Present: regular rate, normal rhythm, normal heart sounds. Absent: systolic murmur, diastolic murmur, rubs, gallop, clicks GI/Abdominal exam: Present: soft, tenderness (Epigastric left upper quadrant tenderness.) Extremities exam: Present: normal inspection, full ROM, normal capillary refill. Absent: tenderness, pedal edema, joint swelling, calf tenderness Back exam: Present: normal inspection Neurological exam: Present: alert, oriented X3, CN II-XII intact Psychiatric exam: Present: normal affect, normal mood Skin exam: Present: warm, dry, intact, normal color. Absent: rash Course Vital Signs 03/16/18 03/16/18 19:02 21:29 Temperature 98.6 F 98.5 F Pulse Rate 96 77 Respiratory 18 18 Rate Blood Pressure 135/92 192/90 O2 Sat by Pulse 98 99 Oximetry Medical Decision Making - Medical Decision Making This patient's a 62-year-old female well-known to emergency department presents today with left-sided epigastric abdominal pain. Recently admitted for pancreatitis. Patient's had no vomiting. Normal stools. She does have some mild epigastric tenderness. She had recent CTs and MRIs approximately 5 days ago. Vital signs are stable. Patient labwork was reviewed and unremarkable. Amylase and lipase are within normal limits. Dramatic improvement from previous admission one week ago. At this time patient's will be discharged with close follow-up with primary care provider and GI specialist. She did see her primary care provider Sunday. Discussed return parameters will discharge her with Rashad and Madisyn. Discussed return parameters. - Lab Data Result diagrams: 03/16/18 19:21 03/16/18 20:48 Lab Results 03/16/18 03/16/18 03/16/18 Range/Units 19:21 19:21 20:23 WBC 6.8 (3.8-10.6) k/uL RBC 4.70 (3.80-5.40) m/uL Hgb 13.6 (11.4-16.0) gm/dL Hct 40.5 (34.0-46.0) % MCV 86.1 (80.0-100.0) fL MCH 29.0 (25.0-35.0) pg MCHC 33.6 (31.0-37.0) g/dL RDW 16.0 H (11.5-15.5) % Plt Count 152 D (150-450) k/uL Neutrophils % 55 % Lymphocytes % 35 % Monocytes % 5 % Eosinophils % 2 % Basophils % 0 % Neutrophils # 3.8 (1.3-7.7) k/uL Lymphocytes # 2.4 (1.0-4.8) k/uL Monocytes # 0.4 (0-1.0) k/uL Eosinophils # 0.1 (0-0.7) k/uL Basophils # 0.0 (0-0.2) k/uL PT 9.9 (9.0-12.0) sec INR 1.0 (<1.2) APTT 21.3 L (22.0-30.0) sec Sodium (137-145) mmol/L Potassium (3.5-5.1) mmol/L Chloride (98-107) mmol/L Carbon Dioxide (22-30) mmol/L Anion Gap mmol/L BUN (7-17) mg/dL Creatinine (0.52-1.04) mg/dL Est GFR (CKD-EPI)AfAm (>60 ml/min/1.73 sqM) Est GFR (CKD-EPI)NonAf (>60 ml/min/1.73 sqM) Glucose (74-99) mg/dL Calcium (8.4-10.2) mg/dL Total Bilirubin (0.2-1.3) mg/dL AST (14-36) U/L ALT (9-52) U/L Alkaline Phosphatase (38-126) U/L Total Protein (6.3-8.2) g/dL Albumin (3.5-5.0) g/dL Amylase (30-110) U/L Lipase (23-300) U/L Urine Color Yellow Urine Appearance Clear (Clear) Urine pH 8.0 (5.0-8.0) Ur Specific [place] 1.010 (1.001-1.035) Urine Protein Trace H (Negative) Urine Glucose (UA) Negative (Negative) Urine Ketones Negative (Negative) Urine Blood Trace H (Negative) Urine Nitrite Negative (Negative) Urine Bilirubin Negative (Negative) Urine Urobilinogen <2.0 (<2.0) mg/dL Ur Leukocyte Esterase Small H (Negative) Urine RBC 3 (0-5) /hpf Urine WBC 5 (0-5) /hpf Ur Squamous Epith Cells 3 (0-4) /hpf Urine Mucus Rare H (None) /hpf 03/16/18 Range/Units 20:48 WBC (3.8-10.6) k/uL RBC (3.80-5.40) m/uL Hgb (11.4-16.0) gm/dL Hct (34.0-46.0) % MCV (80.0-100.0) fL MCH (25.0-35.0) pg MCHC (31.0-37.0) g/dL RDW (11.5-15.5) % Plt Count (150-450) k/uL Neutrophils % % Lymphocytes % % Monocytes % % Eosinophils % % Basophils % % Neutrophils # (1.3-7.7) k/uL Lymphocytes # (1.0-4.8) k/uL Monocytes # (0-1.0) k/uL Eosinophils # (0-0.7) k/uL Basophils # (0-0.2) k/uL PT (9.0-12.0) sec INR (<1.2) APTT (22.0-30.0) sec Sodium 142 (137-145) mmol/L Potassium 3.7 (3.5-5.1) mmol/L Chloride 113 H (98-107) mmol/L Carbon Dioxide 22 (22-30) mmol/L Anion Gap 7 mmol/L BUN 9 (7-17) mg/dL Creatinine 0.70 (0.52-1.04) mg/dL Est GFR (CKD-EPI)AfAm >90 (>60 ml/min/1.73 sqM) Est GFR (CKD-EPI)NonAf >90 (>60 ml/min/1.73 sqM) Glucose 89 (74-99) mg/dL Calcium 9.3 (8.4-10.2) mg/dL Total Bilirubin 0.3 (0.2-1.3) mg/dL AST 21 (14-36) U/L ALT 28 (9-52) U/L Alkaline Phosphatase 76 (38-126) U/L Total Protein 6.9 (6.3-8.2) g/dL Albumin 4.1 (3.5-5.0) g/dL Amylase 55 (30-110) U/L Lipase 182 (23-300) U/L Urine Color Urine Appearance (Clear) Urine pH (5.0-8.0) Ur Specific [place] (1.001-1.035) Urine Protein (Negative) Urine Glucose (UA) (Negative) Urine Ketones (Negative) Urine Blood (Negative) Urine Nitrite (Negative) Urine Bilirubin (Negative) Urine Urobilinogen (<2.0) mg/dL Ur Leukocyte Esterase (Negative) Urine RBC (0-5) /hpf Urine WBC (0-5) /hpf Ur Squamous Epith Cells (0-4) /hpf Urine Mucus (None) /hpf 03/16/18 20:00 EKG shows sinus bradycardia left anterior fascicular block. Cannot rule out inferior infarct age undetermined. Possible anterior infarct age undetermined. Abnormal EKG. Ventricular rate of 54 bpm. Intervals 156 most seconds. QRS duration is 80 ms. QT QTc is 440/417 ms. There is no significant change from previous EKG on 08/07/2017. Disposition Clinical Impression: Abdominal pain, Nausea & vomiting Disposition: HOME SELF-CARE Condition: Good Instructions: Abdominal Pain (ED) Additional Instructions: Patient has follow-up with primary care physician. Return to emergency department if any alarming signs or symptoms occur. Clear Liquid diet for the next 1-2 days. Prescriptions: Famotidine [Pepcid] 20 mg PO BID #20 tablet Ondansetron [Zofran] 4 mg PO Q8HR PRN #8 tab PRN Reason: Nausea And Vomiting Is patient prescribed a controlled substance at d/c from ED?: No When asked, does pt state using other controlled substances?: No If prescribed controlled substance>3 days was MAPS reviewed?: No If opioid is for acute pain is fill amount 7 days or less?: No If Rx opioid, was Start Talking consent form obtained?: No Referrals: None,Stated [REFERRING] - 1-2 days Jocelin Ochoa MD [STAFF PHYSICIAN] - 1-2 days Time of Disposition: 21:50
--- NOTE | 2018-03-16 19:47 | XR ---
EXAMINATION TYPE: XR KUB DATE OF EXAM: 03/16/2018 7:38 PM CLINICAL HISTORY: Pancreatitis with pain. TECHNIQUE: Two Upright KUB images of the abdomen are obtained. COMPARISON: CT abdomen and pelvis from 5 days ago FINDINGS: Scattered gas is seen in non-distended stomach and small bowel loops. Gas is seen in non-di stended colon. There is surgical change lumbar spine with vertebroplasty and artificial disc material . Cholecystectomy clips are redemonstrated. Lung bases are clear. No pneumoperitoneum is evident. IMPRESSION: Overall nonobstructive bowel gas pattern.
[2018-03-16 20:03] LABS: Basophils % (A) 0 %; Eosinophils # (A) 0.1 k/uL (0-0.7); Eosinophils % (A) 2 %; HCT 40.5 % (34.0-46.0); HGB 13.6 gm/dL (11.4-16.0); Lymphocytes # (A) 2.4 k/uL (1.0-4.8); Lymphocytes % (A) 35 %; MCHC 33.6 g/dL (31.0-37.0); MCV 86.1 fL (80.0-100.0); Monocytes # (A) 0.4 k/uL (0-1.0); Monocytes % (A) 5 %; Neutrophils # (A) 3.8 k/uL (1.3-7.7); Neutrophils % (A) 55 %; WBC 6.8 k/uL (3.8-10.6)
[2018-03-16 20:04] LABS: Platelet Count 152 k/uL (150-450)
[2018-03-16 20:07] LABS: Prothrombin Time 9.9 sec (9.0-12.0)
[2018-03-16 20:14] LABS: Partial Thromboplastin Time 21.3 sec (22.0-30.0)
[2018-03-16 20:39] LABS: Appearance,Urine Clear (Clear); Bilirubin,Urine Negative (Negative); Blood,Urine Trace (Negative); Color,Urine Yellow; Glucose,Urine (UA) Negative (Negative); Ketones,Urine Negative (Negative); Leukocyte Esterase,Urine Small (Negative); Mucus,Urine Rare /hpf; Nitrite,Urine Negative (Negative); Protein,Urine Trace (Negative); RBC,Urine 3 /hpf (0-5); Squamous Epithelial Cell,Urine 3 /hpf (0-4); Urobilinogen,Urine <2.0 mg/dL (<2.0); WBC,Urine 5 /hpf (0-5)
[2018-03-16 21:15] LABS: ALT 28 U/L (9-52); AST 21 U/L (14-36); Albumin 4.1 g/dL (3.5-5.0); Alkaline Phosphatase 76 U/L (38-126); Amylase 55 U/L (30-110); Anion Gap 7 mmol/L; Blood Urea Nitrogen 9 mg/dL (7-17); Calcium 9.3 mg/dL (8.4-10.2); Carbon Dioxide 22 mmol/L (22-30); Chloride 113 mmol/L (98-107); Glucose 89 mg/dL (74-99); Lipase 182 U/L (23-300); Potassium 3.7 mmol/L (3.5-5.1); Sodium 142 mmol/L (137-145); Total Bilirubin 0.3 mg/dL (0.2-1.3); Total Protein 6.9 g/dL (6.3-8.2)
[2018-03-16] MEDS ORDERED: diphenhydrAMINE 50 MG/ML 1 ML VIAL IVP STA (21:17)
[2018-03-16] MEDS ORDERED: METOCLOPRAMIDE 5 MG/ML 2 ML VIAL IVP STA (21:17)
[2018-03-16 21:29] VITALS: TEMP 98.5
[2018-03-16] MEDS ORDERED: FAMOTIDINE 20 MG/2 ML VIAL IV STA (21:49)
[2018-03-16] MEDS ORDERED: MORPHINE SULFATE 2 MG/ML SYRINGE IVP STA (21:49)
[2018-03-16 22:18] VITALS: BP 132/70; PULSE 67; RESP 16
== END 2018-03-16 22:38 | disposition home or self-care (01) ==
LOC: EC 18:48
DX: R10.13 Epigastric pain (principal); R11.2 Nausea with vomiting, unspecified; I44.4 Left anterior fascicular block; R00.1 Bradycardia, unspecified; J44.9 Chronic obstructive pulmonary disease, unspecified; I10 Essential (primary) hypertension; F17.200 Nicotine dependence, unspecified, uncomplicated; Z79.899 Other long term (current) drug therapy; Z90.49 Acquired absence of other specified parts of digestive tract; Z80.0 Family history of malignant neoplasm of digestive organs
CPT/HCPCS: 36415; 80053; 82150; 83690; 85025; 85610; 85730; 81001; 87086; 74018; 99284; 96374; 96375 ×5; 96376; 96361 ×3; J2270 ×2; J1200; J2765; J2405; J1885

== ENCOUNTER 2018-03-17 17:15 | Inpatient (IN) | payer BC ==
[2018-03-17] MEDS ORDERED: MORPHINE SULFATE 4 MG/ML SYRINGE IVP STA (17:52)
[2018-03-17] MEDS ORDERED: SODIUM CHLORIDE 0.9% 1,000 ML IV ONE (17:53)
[2018-03-17] MEDS ORDERED: FAMOTIDINE 20 MG/2 ML VIAL IV STA (17:53)
--- NOTE | 2018-03-17 18:58 | ED ---
Abdominal Pain HPI - General Chief Complaint: Abdominal Pain Stated Complaint: Stomach pain Time Seen by Provider: 03/17/18 17:33 Source: patient Mode of arrival: ambulatory - History of Present Illness Initial Comments: 62-year-old female presenting with epigastric abdominal pain. Patient states she is a history of idiopathic pancreatitis. He admitted and discharged. She presented to the emergency department yesterday with worsening abdominal pain and nausea and vomiting. He was discharged home with Zofran but has been unable to tolerate anything by mouth today. He normally takes [place] is unable to keep down. Admits to multiple episodes of nonbloody diarrhea. She denies any chest pain, shortness of breath, cough, fever or chills. - Related Data Home Medications Medication Instructions Recorded Confirmed Albuterol Inhaler [Ventolin Hfa 1 - 2 puff INHALATION RT-Q6H PRN 07/15/16 Inhaler] Albuterol Nebulized [Ventolin 2.5 mg INHALATION RT-QID PRN 08/31/16 03/11/18 Nebulized] Gabapentin [Neurontin] 800 mg PO QID 08/31/16 03/11/18 amLODIPine [Norvasc] 10 mg PO DAILY 02/18/18 03/11/18 Previous Rx's Medication Instructions Recorded HYDROcodone/APAP 5-325MG [[place] 1 each PO Q6HR PRN #28 tab 03/14/18 5-325] Famotidine [Pepcid] 20 mg PO BID #20 tablet 03/16/18 Ondansetron [Zofran] 4 mg PO Q8HR PRN #8 tab 03/16/18 Allergies Allergy/AdvReac Type Severity Reaction Status Date / Time No Known Allergies Allergy Verified 03/16/18 19:04 Review of Systems ROS Statement: Those systems with pertinent positive or pertinent negative responses have been documented in the HPI. Review of Systems Constitutional: Denies fever, chills Eyes: Denies change in vision, Denies pain Ears, nose, mouth, throat: Denies headaches, Denies sore throat Cardiovascular: Denies chest pain. Denies palpitations Respiratory: Denies shortness of breath, Denies cough Gastrointestinal: Positive abdominal pain. Positive nausea, vomiting, diarrhea. Genitourinary: Denies hematuria, Denies infections Musculoskeletal: Denies pain, Denies swelling Integumentary: Denies rash Neurological: Denies headache, focal weakness, focal numbness Psychiatric: Denies anxiety, Denies depression Hematologic/Lymphatic: Denies easy bleeding or bruising ROS Other: All systems not noted in ROS Statement are negative. Past Medical History Past Medical History: COPD, CVA/TIA, GERD/Reflux, Hypertension, Osteoarthritis ( OA), Rheumatoid Arthritis (RA) Additional Past Medical History / Comment(s): Pt recently admitted to [facility] on with colitis/sepsis/R renal cyst. Other hx: Recurrent pancreatitis, bronchitis, TIA, anemia-unknown cause, migraines, ostoeporosis, past R femur fracture with surgery. History of Any Multi-Drug Resistant Organisms: None Reported Past Surgical History: Appendectomy, Back Surgery, Cholecystectomy, Orthopedic Surgery, Tonsillectomy Additional Past Surgical History / Comment(s): Pancreatic stents-since removed, 6 back surgeries with 2 fusions, right oophorectomy due to ectopic , EGD/colonoscopy, right leg alice inserted d/t fracture Past Anesthesia/Blood Transfusion Reactions: No Reported Reaction Additional Past Anesthesia/Blood Transfusion Reaction / Comment(s): Pt has received blood in past without reaction. Past Psychological History: No Psychological Hx Reported Smoking Status: Current every day smoker Past Alcohol Use History: None Reported Past Drug Use History: None Reported - Past Family History Father Family Medical History: Cancer, Liver Disease Additional Family Medical History / Comment(s): Father was an alcoholic. He from lung/ liver cancer. Mother Family Medical History: Cancer, CVA/TIA, Hypertension Additional Family Medical History / Comment(s): Mother had breast and colon cancer. She of liver cancer at the age of 78 yrs. General Exam - General Exam Comments Initial Comments: General: Awake, alert, No acute Distress HENT: Normocephalic. Atraumatic Eyes: PERRL. EOMI. No scleral icterus. No injected conjunctiva Neck: Full ROM Chest/Lungs: Clear to auscultation bilaterally. No wheezing, rhonchi, or rales Cardiac: Regular rate, rhythm. No murmurs or rubs Abdomen/GI: TTP epigastric and LUQ. No rebound, guarding, or rigidity. Musculoskeletal: Full ROM Skin: Warm, dry, intact Neurologic: A/Ox3, no weakness, no sensory deficit, no abnormal gait, no coordination deficit Course Vital Signs 03/17/18 03/17/18 17:25 19:12 Temperature 98.7 F Pulse Rate 96 71 Respiratory 18 18 Rate Blood Pressure 156/90 151/82 O2 Sat by Pulse 98 99 Oximetry Medical Decision Making - Medical Decision Making 62-year-old female presenting with abdominal pain and emesis. Initial exam patient is awake, alert, no acute distress. VSS. Patient has epigastric tenderness. [place] [id number]. Elected not to CT patient's abdomen as she just had an MRI of her pancreas 4 days prior. Her pain improved with treatment while in the department. Spoke with Dr. Purvis who is agreeable to admission with Dr. Clark on consult. He agreed to hold on imaging at this point. Patient is currently stable for transfer to the floor. - Lab Data Result diagrams: 03/17/18 18:48 03/17/18 18:48 Lab Results 03/17/18 03/17/18 03/17/18 Range/Units 18:48 18:48 18:48 WBC 8.9 (3.8-10.6) k/uL RBC 4.87 (3.80-5.40) m/uL Hgb 13.6 (11.4-16.0) gm/dL Hct 42.3 (34.0-46.0) % MCV 86.8 (80.0-100.0) fL MCH 27.9 (25.0-35.0) pg MCHC 32.1 (31.0-37.0) g/dL RDW 15.9 H (11.5-15.5) % Plt Count 381 D (150-450) k/uL Neutrophils % 61 % Lymphocytes % 26 % Monocytes % 8 % Eosinophils % 2 % Basophils % 1 % Neutrophils # 5.4 (1.3-7.7) k/uL Lymphocytes # 2.4 (1.0-4.8) k/uL Monocytes # 0.7 (0-1.0) k/uL Eosinophils # 0.2 (0-0.7) k/uL Basophils # 0.1 (0-0.2) k/uL Sodium 141 (137-145) mmol/L Potassium 4.3 (3.5-5.1) mmol/L Chloride 111 H (98-107) mmol/L Carbon Dioxide 21 L (22-30) mmol/L Anion Gap 9 mmol/L BUN 10 (7-17) mg/dL Creatinine 0.80 (0.52-1.04) mg/dL Est GFR (CKD-EPI)AfAm >90 (>60 ml/min/1.73 sqM) Est GFR (CKD-EPI)NonAf 80 (>60 ml/min/1.73 sqM) Glucose 108 H (74-99) mg/dL Calcium 9.7 (8.4-10.2) mg/dL Total Bilirubin 0.4 (0.2-1.3) mg/dL Conjugated Bilirubin 0.0 (0.0-0.3) mg/dL Unconjugated Bilirubin 0.0 (0.0-1.1) mg/dL Delta Bilirubin 0.4 H (0.0-0.2) mg/dL AST 27 (14-36) U/L ALT 26 (9-52) U/L Alkaline Phosphatase 71 (38-126) U/L Troponin I (0.000-0.034) ng/mL NT-Pro-B Natriuret Pep 360 pg/mL Total Protein 7.5 (6.3-8.2) g/dL Albumin 4.5 (3.5-5.0) g/dL Lipase >14735 H (23-300) U/L 03/17/18 Range/Units 18:48 WBC (3.8-10.6) k/uL RBC (3.80-5.40) m/uL Hgb (11.4-16.0) gm/dL Hct (34.0-46.0) % MCV (80.0-100.0) fL MCH (25.0-35.0) pg MCHC (31.0-37.0) g/dL RDW (11.5-15.5) % Plt Count (150-450) k/uL Neutrophils % % Lymphocytes % % Monocytes % % Eosinophils % % Basophils % % Neutrophils # (1.3-7.7) k/uL Lymphocytes # (1.0-4.8) k/uL Monocytes # (0-1.0) k/uL Eosinophils # (0-0.7) k/uL Basophils # (0-0.2) k/uL Sodium (137-145) mmol/L Potassium (3.5-5.1) mmol/L Chloride (98-107) mmol/L Carbon Dioxide (22-30) mmol/L Anion Gap mmol/L BUN (7-17) mg/dL Creatinine (0.52-1.04) mg/dL Est GFR (CKD-EPI)AfAm (>60 ml/min/1.73 sqM) Est GFR (CKD-EPI)NonAf (>60 ml/min/1.73 sqM) Glucose (74-99) mg/dL Calcium (8.4-10.2) mg/dL Total Bilirubin (0.2-1.3) mg/dL Conjugated Bilirubin (0.0-0.3) mg/dL Unconjugated Bilirubin (0.0-1.1) mg/dL Delta Bilirubin (0.0-0.2) mg/dL AST (14-36) U/L ALT (9-52) U/L Alkaline Phosphatase (38-126) U/L Troponin I <0.012 (0.000-0.034) ng/mL NT-Pro-B Natriuret Pep pg/mL Total Protein (6.3-8.2) g/dL Albumin (3.5-5.0) g/dL Lipase (23-300) U/L Disposition Clinical Impression: Pancreatitis, Abdominal pain, Nausea and vomiting Disposition: ADMITTED IP TO THIS [facility] Condition: Good Decision to Admit Reason: Admit from EC Decision Date: 03/17/18 Decision Time: 20:02
[2018-03-17 19:18] LABS: ALT 26 U/L (9-52); AST 27 U/L (14-36); Albumin 4.5 g/dL (3.5-5.0); Alkaline Phosphatase 71 U/L (38-126); Anion Gap 9 mmol/L; Bilirubin, Delta 0.4 mg/dL (0.0-0.2); Blood Urea Nitrogen 10 mg/dL (7-17); Calcium 9.7 mg/dL (8.4-10.2); Carbon Dioxide 21 mmol/L (22-30); Chloride 111 mmol/L (98-107); Glucose 108 mg/dL (74-99); Potassium 4.3 mmol/L (3.5-5.1); Sodium 141 mmol/L (137-145); Total Bilirubin 0.4 mg/dL (0.2-1.3); Total Protein 7.5 g/dL (6.3-8.2)
[2018-03-17 19:21] LABS: Basophils # (A) 0.1 k/uL (0-0.2); Basophils % (A) 1 %; Eosinophils # (A) 0.2 k/uL (0-0.7); Eosinophils % (A) 2 %; HCT 42.3 % (34.0-46.0); HGB 13.6 gm/dL (11.4-16.0); Lymphocytes # (A) 2.4 k/uL (1.0-4.8); Lymphocytes % (A) 26 %; MCH 27.9 pg (25.0-35.0); MCHC 32.1 g/dL (31.0-37.0); MCV 86.8 fL (80.0-100.0); Mean Platelet Volume 6.8; Monocytes # (A) 0.7 k/uL (0-1.0); Monocytes % (A) 8 %; Neutrophils # (A) 5.4 k/uL (1.3-7.7); Neutrophils % (A) 61 %; RBC 4.87 m/uL (3.80-5.40); RDW 15.9 % (11.5-15.5); WBC 8.9 k/uL (3.8-10.6)
[2018-03-17 19:30] LABS: Platelet Count 381 k/uL (150-450)
--- NOTE | 2018-03-17 19:38 | XR ---
EXAMINATION TYPE: XR chest 2V DATE OF EXAM: 03/17/2018 COMPARISON: Prior chest 03/13/[address] chest 01/31/2016 HISTORY: Chest pain TECHNIQUE: Frontal and lateral views of the chest are obtained. FINDINGS: The nodule seen in the right upper lobe on prior CT chest not seen definitively on today's exam, sclerotic density superimposed over the posterior right seventh rib on the right is stable. Pr ominent lung volume could be indicative of COPD. IMPRESSION: Findings are similar to prior exam. Patient's lung nodule not seen on plain film. Indete rminate density is stable superimposed over the right ribs as described. No acute cardiopulmonary dis ease.
[2018-03-17 19:40] LABS: Lipase >20000 U/L (23-300)
[2018-03-17] MEDS ORDERED: SODIUM CHLORIDE 0.9% 1,000 ML IV SCH (19:45)
[2018-03-17] MEDS ORDERED: MORPHINE SULFATE 4 MG/ML SYRINGE IV PRN (19:54)
[2018-03-17] MEDS ORDERED: NALOXONE 0.4 MG/ML 1 ML VIAL IV PRN (19:54)
[2018-03-17] MEDS ORDERED: KETOROLAC 30 MG/ML 1 ML VIAL IVP PRN (19:54)
[2018-03-17] MEDS ORDERED: ONDANSETRON 4 MG/2 ML VIAL IVP PRN (19:54)
[2018-03-17] MEDS ORDERED: ALBUTEROL NEBULIZED 2.5 MG/3 ML INHALATION PRN (19:59)
[2018-03-17] MEDS ORDERED: FAMOTIDINE 20 MG TAB PO SCH (21:00)
[2018-03-17] MEDS: GABAPENTIN 400 MG CAP PO SCH (21:24)
--- NOTE | 2018-03-17 21:46 | P.HPIM ---
History of Present Illness H&P Date: 03/17/18 Chief Complaint: abd pain 62-year-old female with recurrent pancreatitis and history of COPD and TIA. Patient presented again with an acute attack of epigastric abdominal pain that started on Sunday its worst to say that she has left the hospital on after an attack of pancreatitis. She tried to power through her pain she describes as sharp epigastric radiating straight to the back 10 out of 10 in severity associated with nausea and vomiting also associated with diarrhea nonbloody non-melanotic , denies any fevers or chills denies any chest pain or trouble breathing. She reports that eating aggravates the pain. Her by mouth intake has decreased over the following days until she decided come the hospital today. In the emergency department she was found to have lipase more than 20,000 and admitted for an attack of recurrent acute pancreatitis. During her last hospitalization she was again managed for acute pancreatitis CAT scan of the abdomen and MRCP were performed which suggested dilated biliary and pancreatic ducts, GI was planning on arranging for EUS or ERCP as an outpatient in their office once she follows up with them. She denies any trauma to her abdomen, denies any alcohol intake . Otherwise patient denies any fevers or chills she denies any changes in her hearing or vision denies any headaches denies any focal neurologic deficits Review of Systems Pertinent positives as noted in HPI. All other systems were reviewed and are negative Past Medical History Past Medical History: COPD, CVA/TIA, GERD/Reflux, Hypertension, Osteoarthritis ( OA), Rheumatoid Arthritis (RA) Additional Past Medical History / Comment(s): Pt recently admitted to [facility] on with colitis/sepsis/R renal cyst. Other hx: Recurrent pancreatitis, bronchitis, TIA, anemia-unknown cause, migraines, ostoeporosis, past R femur fracture with surgery. History of Any Multi-Drug Resistant Organisms: None Reported Past Surgical History: Appendectomy, Back Surgery, Cholecystectomy, Orthopedic Surgery, Tonsillectomy Additional Past Surgical History / Comment(s): Pancreatic stents-since removed, 6 back surgeries with 2 fusions, right oophorectomy due to ectopic , EGD/colonoscopy, right leg alice inserted d/t fracture Past Anesthesia/Blood Transfusion Reactions: No Reported Reaction Additional Past Anesthesia/Blood Transfusion Reaction / Comment(s): Pt has received blood in past without reaction. Past Psychological History: No Psychological Hx Reported Smoking Status: Current every day smoker Past Alcohol Use History: None Reported Past Drug Use History: None Reported - Past Family History Father Family Medical History: Cancer, Liver Disease Additional Family Medical History / Comment(s): Father was an alcoholic. He from lung/ liver cancer. Mother Family Medical History: Cancer, CVA/TIA, Hypertension Additional Family Medical History / Comment(s): Mother had breast and colon cancer. She of liver cancer at the age of 78 yrs. Medications and Allergies Home Medications Medication Instructions Recorded Confirmed Type Albuterol Inhaler [Ventolin Hfa 1 - 2 puff INHALATION RT-Q6H PRN 07/15/16 History Inhaler] Albuterol Nebulized [Ventolin 2.5 mg INHALATION RT-QID PRN 08/31/16 03/11/18 History Nebulized] Gabapentin [Neurontin] 800 mg PO QID 08/31/16 03/11/18 History amLODIPine [Norvasc] 10 mg PO DAILY 02/18/18 03/11/18 History HYDROcodone/APAP 5-325MG [[place] 1 each PO Q6HR PRN #28 tab 03/14/18 Rx 5-325] Famotidine [Pepcid] 20 mg PO BID #20 tablet 03/16/18 Rx Ondansetron [Zofran] 4 mg PO Q8HR PRN #8 tab 03/16/18 Rx Allergies Allergy/AdvReac Type Severity Reaction Status Date / Time No Known Allergies Allergy Verified 03/16/18 19:04 Physical Exam Vitals: Vital Signs Temp Pulse Resp BP Pulse Ox 03/17/18 21:05 99.1 F 62 18 151/73 98 03/17/18 19:12 71 18 151/82 99 03/17/18 17:25 98.7 F 96 18 156/90 98 Intake and Output 03/17/18 03/17/18 03/17/18 06:59 14:59 22:59 Other: Weight 61.689 kg Constitutional: No acute distress, conversant, pleasant Eyes: Anicteric sclerae, moist conjunctiva, no lid-lag Pupils equal round reactive to light ENMT: NC/AT Oropharynx clear, no erythema, or exudates Neck: Supple, FROM, no masses, or JVD No carotid bruits No thyromegaly Lungs: Clear to auscultation Clear to percussion Normal respiratory effort, no accessory muscle use Cardiovascular: Heart regular in rate and rhythm, No murmurs, gallops, or rubs No peripheral edema Abdominal: Severe tenderness to palpation of the epigastric region with voluntary guarding , no rebound or rigidity Abdomen moving with respiration Normoactive bowel sounds No hepatomegaly, No splenomegaly No palpable mass No abdominal wall hernia noted Skin: Normal temperature, tone, texture, turgor No induration No subcutaneous nodules No rash, lesions No ulcers Extremities: No digital cyanosis No clubbing Pedal pulses intact and symmetrical Radial pulses intact and symmetrical No calf tenderness Psychiatric: Alert and oriented to person, place and time Appropriate affect fair judgment Neuro Muscles Strength 5/5 in all 4 extremities Sensation to light touch grossly present throughout Cranial nerves II-XII grossly intact No focal sensory deficits Lymphatics: no palpable cervical or supraclavicular , or inguinal lymph nodes Results CBC & Chem 7: 03/17/18 18:48 03/17/18 18:48 Labs: Abnormal Lab Results - Last 24 Hours (Table) 03/17/18 03/17/18 Range/Units 18:48 18:48 RDW 15.9 H (11.5-15.5) % Chloride 111 H (98-107) mmol/L Carbon Dioxide 21 L (22-30) mmol/L Glucose 108 H (74-99) mg/dL Delta Bilirubin 0.4 H (0.0-0.2) mg/dL Lipase >59028 H (23-300) U/L Assessment and Plan Assessment: 62-year-old female with attacks of recurrent pancreatitis of unknown underlying cause patient was admitted to the inpatient service with anticipated length of stay of more than 2 days for recurrent attack of acute pancreatitis. Patient recently discharged from the hospital for an attack of acute pancreatitis where she was found during this hospital stay that she has dilatation of the biliary and pancreatic ducts GI was planning on EUS as outpatient. Patient admitted for further management Plan: Acute pancreatitis recurrent unknown underlying cause Nothing by mouth Pain control with narcotics Aggressive IV fluid hydration with lactated Ringer Follow-up labs GI consult COPD stable Continue with inhalers Hypertension currently controlled Continue with home meds History of CVA Aspirin DVT prophylaxis on heparin subcu Preformed a thorough record review from recent hospitalization where she was admitted for acute pancreatitis Surrogate decision-maker: Patient CODE STATUS: Full code Anticipated discharge: 48-[address]: Home A total of 50 minutes was spent on the care of this complex patient more than 50 % of the time was spent in counseling and care coordination.
[2018-03-17] MEDS: HYDROmorphone 0.5 MG/0.5 ML SYRINGE IVP PRN (22:42)
[2018-03-18] MEDS: LACTATED RINGERS 1,000 ML IV SCH ×10 (01:45→11:50)
[2018-03-18] MEDS: HEPARIN SODIUM,PORCINE 5,000 UNIT/ML 1 ML VIAL SQ SCH ×3 (01:47→16:01)
[2018-03-18] MEDS: HYDROcodone/APAP 5-325MG 1 EACH TAB PO PRN ×4 (01:53→20:11)
[2018-03-18] MEDS: HYDROmorphone 0.5 MG/0.5 ML SYRINGE IVP PRN ×7 (02:49→21:33)
[2018-03-18 07:24] LABS: Basophils % (A) 1 %; Eosinophils # (A) 0.3 k/uL (0-0.7); Eosinophils % (A) 4 %; HCT 35.7 % (34.0-46.0); HGB 11.5 gm/dL (11.4-16.0); Lymphocytes % (A) 45 %; MCH 27.8 pg (25.0-35.0); MCHC 32.1 g/dL (31.0-37.0); MCV 86.7 fL (80.0-100.0); Mean Platelet Volume 6.9; Monocytes # (A) 0.4 k/uL (0-1.0); Monocytes % (A) 6 %; Neutrophils # (A) 2.9 k/uL (1.3-7.7); Neutrophils % (A) 44 %; Platelet Count 300 k/uL (150-450); RBC 4.12 m/uL (3.80-5.40); RDW 15.8 % (11.5-15.5); WBC 6.7 k/uL (3.8-10.6)
[2018-03-18 08:01] LABS: ALT 23 U/L (9-52); AST 17 U/L (14-36); Albumin 3.6 g/dL (3.5-5.0); Alkaline Phosphatase 63 U/L (38-126); Anion Gap 5 mmol/L; Blood Urea Nitrogen 7 mg/dL (7-17); Calcium 8.9 mg/dL (8.4-10.2); Carbon Dioxide 23 mmol/L (22-30); Chloride 112 mmol/L (98-107); Glucose 104 mg/dL (74-99); Potassium 3.9 mmol/L (3.5-5.1); Sodium 140 mmol/L (137-145); Total Bilirubin 0.4 mg/dL (0.2-1.3); Total Protein 6.2 g/dL (6.3-8.2)
[2018-03-18 08:28] LABS: Lipase 2325 U/L (23-300)
[2018-03-18] MEDS: GABAPENTIN 400 MG CAP PO SCH ×3 (09:28→20:07)
[2018-03-18] MEDS: amLODIPine 10 MG TAB PO SCH (09:28)
[2018-03-18] MEDS: PANTOPRAZOLE 40 MG/10 ML VIAL IV SCH (09:28)
[2018-03-18 11:06] VITALS: BMI 21.2
--- NOTE | 2018-03-18 14:39 | P.PN ---
Subjective Progress Note Date: 03/18/18 Patient reporting improvement of her abdominal pain is still present still having occasional bouts of nausea. Afebrile no acute events overnight Objective - Vital Signs Vital signs: Vital Signs Temp 97.3 F L 03/18/18 08:10 Pulse 56 L 03/18/18 08:10 Resp 18 03/18/18 08:10 BP 126/69 03/18/18 08:10 Pulse Ox 96 03/18/18 01:50 Intake & Output 03/17/18 03/18/18 03/18/18 18:59 06:59 18:59 Intake Total 3113 900 Balance 3113 900 Weight 61.689 kg 61.689 kg 61.689 kg Intake: Intake, IV Titration 3103 900 Amount Lactated Ringers 1,000 ml 300 900 @ 150 mls/hr IV .Q6H40M JOLLY Rx#:[id number] Lactated Ringers 1,000 ml 2000 @ 999 mls/hr IV .Q1H1M JOLLY Rx#:[id number] Sodium Chloride 0.9% 1, 803 000 ml @ 100 mls/hr IV . Q10H JOLLY Rx#:[id number] Oral 10 Other: # Voids 4 5 # Bowel Movements 0 - Exam Constitutional: No acute distress, conversant, pleasant Eyes: Anicteric sclerae, moist conjunctiva, no lid-lag, PERRLA ENMT: NC/AT,Oropharynx clear, no erythema, exudates Neck:Supple, FROM, no masses, or JVD, No carotid bruits; No thyromegaly Lungs: Clear to auscultation, Clear to percussion, Normal respiratory effort, no accessory muscle use Cardiovascular: Heart regular in rate and rhythm, No murmurs, gallops, or rubs no peripheral edema Abdominal: Soft tender to palpation in the epigastrium, nom distended, no guarding, no rebound or rigidity, Normoactive bowel sounds No hepatomegaly, No splenomegaly, No palpable mass No abdominal wall hernia noted Skin: Normal temperature, tone, texture, turgor, No induration No subcutaneous nodules, No rash, lesions, No ulcers Extremities:No digital cyanosis No clubbing, Pedal pulses intact and symmetrical Radial pulses intact and symmetrical Normal gait and station, No calf tenderness Psychiatric: Alert and oriented to person, place and time, Appropriate affect Intact judgement Neuro: Muscles Strength 5/5 in all 4 extremities, Sensation to light touch grossly present throughout, Cranial nerves II-XII grossly intact. No focal sensory deficits - Labs CBC & Chem 7: 03/18/18 07:00 03/18/18 07:00 Labs: Abnormal Lab Results - Last 24 Hours (Table) 03/17/18 03/17/18 03/18/18 Range/Units 18:48 18:48 07:00 RDW 15.9 H 15.8 H (11.5-15.5) % Chloride 111 H (98-107) mmol/L Carbon Dioxide 21 L (22-30) mmol/L Glucose 108 H (74-99) mg/dL Delta Bilirubin 0.4 H (0.0-0.2) mg/dL Total Protein (6.3-8.2) g/dL Lipase >48337 H (23-300) U/L 03/18/18 Range/Units 07:00 RDW (11.5-15.5) % Chloride 112 H (98-107) mmol/L Carbon Dioxide (22-30) mmol/L Glucose 104 H (74-99) mg/dL Delta Bilirubin (0.0-0.2) mg/dL Total Protein 6.2 L (6.3-8.2) g/dL Lipase 2325 H (23-300) U/L Assessment and Plan Plan: Acute pancreatitis recurrent unknown underlying cause Nothing by mouth Pain control with narcotics Aggressive IV fluid hydration with lactated Ringer Follow-up labs GI doctor Amber planning to follow patient in her clinic with plans for endoscopic ultrasound, reporting ERCP not indicated as the patient has normal LFTs at this time with a bout of acute recurrent pancreatitis COPD stable Continue with inhalers Hypertension currently controlled Continue with home meds History of CVA Aspirin Disposition * Continue supportive management anticipate discharge in 1-2 days we'll need to advance her diet once her pain resolves
[2018-03-19] MEDS: GABAPENTIN 400 MG CAP PO SCH ×5 (00:34→21:31)
[2018-03-19] MEDS: HYDROmorphone 0.5 MG/0.5 ML SYRINGE IVP PRN ×8 (00:34→21:30)
[2018-03-19] MEDS: HEPARIN SODIUM,PORCINE 5,000 UNIT/ML 1 ML VIAL SQ SCH ×3 (00:34→16:51)
[2018-03-19] MEDS: LACTATED RINGERS 1,000 ML IV SCH ×4 (03:31→18:00)
[2018-03-19] MEDS: amLODIPine 10 MG TAB PO SCH (08:05)
--- NOTE | 2018-03-19 09:03 | P.PN ---
Subjective Progress Note Date: 03/19/18 Principal diagnosis: Pancreatitis Feeling better. Morning labs pending. Afebrile. Requesting diet advancement. Objective - Vital Signs Vital signs: Vital Signs Temp 98.4 F 03/19/18 07:00 Pulse 70 03/19/18 07:00 Resp 18 03/19/18 07:00 BP 154/76 03/19/18 07:00 Pulse Ox 98 03/19/18 07:00 Intake & Output 03/18/18 03/19/18 03/19/18 18:59 06:59 18:59 Intake Total 900 2400 Balance 900 2400 Weight 61.689 kg Intake: Intake, IV Titration 900 2400 Amount Lactated Ringers 1,000 ml 900 2400 @ 150 mls/hr IV .Q6H40M JOLLY Rx#:[id number] Oral 0 Other: # Voids 5 4 - Exam General appearance: The patient is alert, oriented, in no acute distress. HET: Head is normocephalic and atraumatic. Pupils are equal and reactive. Oropharynx is clear without lesions. Neck: Supple without lymphadenopathy. Trachea midline. Heart: S1 S2. Regular rate and rhythm. Lungs: No crackles or wheezes are heard. Abdomen: Soft, mild tenderness midepigastrium left upper quadrant, nondistended with bowel sounds. No peritoneal signs. No palpable organomegaly or masses. Extremities: Normal skin color and turgor. No cyanosis, rash, ulceration, clubbing, or edema. Radial and pedal pulses are 2/4 bilaterally. Neurological: No focal deficits. Strength and sensation are grossly intact. - Labs CBC & Chem 7: 03/18/18 07:00 03/18/18 07:00 Assessment and Plan (1) Pancreatitis Current Visit: Yes Status: Acute Code(s): K85.90 - ACUTE PANCREATITIS WITHOUT NECROSIS OR INFECTION, UNSP SNOMED Code(s): 78751684 Plan: 1. Low residue diet. Endoscopic ultrasound/ERCP referral initiated this morning by the GI office. [facility] GI clinic we'll notify patient in 2-5 business days with additional information appointment time. Continue with supportive measures. ERCP not recommended at this time secondary to normal liver function tests and resolving pancreatitis. We'll continue to follow with you. Assessment and plan a care discussed with Dr. Clark
--- NOTE | 2018-03-19 11:02 | CONS ---
CONSULTATION REQUESTING PHYSICIAN: Dr. Stalin Patel REASON FOR CONSULTATION: Acute recurrent pancreatitis. HISTORY OF PRESENT ILLNESS: The patient is a 62-year-old pleasant white female admitted to hospital with acute onset of severe pain that started about 2 or 3 days ago. The pain was mostly in the epigastric area radiating straight into her back associated with some nausea and 2 episodes of emesis. This morning she is feeling much better. She was noted to have elevated amylase and lipase consistent with acute pancreatitis. The patient states that he had multiple episodes of recurrent pancreatitis in the last 15 years. Her first episode of pancreatitis happened about 15 years ago. Since then, she had at least 15 episodes so far. She was investigated by Dr. Nails in [facility] about 8 years ago and underwent ERCP with stent placement in the diagnosis. Her last episode was a few months ago. She denies any alcohol use. She underwent gallbladder surgery about 8 years ago, despite which she still continued to have episodes of pancreatitis. No family history of pancreatitis. During one of her last admissions, she was investigated for autoimmune pancreatitis and all workup was negative. PAST MEDICAL HISTORY: Significant for hypertension, GERD, history of CVA in the past, COPD, rheumatoid arthritis, osteoarthritis. PAST SURGICAL HISTORY: Cholecystectomy, back surgery, appendectomy, tonsillectomy, ERCP 8 years ago, right oophorectomy, EGD, colonoscopy. SOCIAL HISTORY: Chronic smoker but no alcohol use. FAMILY HISTORY: Father had some kind of liver disease and mother had hypertension and CVA. MEDICATIONS: At home: Albuterol, Ventolin, Neurontin, Norvasc, [place], Pepcid, and Zofran. ALLERGIES: None. REVIEW OF SYSTEMS: CARDIOPULMONARY: No chest pain, shortness of breath. GENITOURINARY: No dysuria or hematuria. MUSCULOSKELETAL: Unremarkable, other than chronic back pain. NEUROLOGY: Unremarkable. PSYCHIATRIC: Unremarkable. ENT/VISION: Unremarkable. CONSTITUTIONAL: No recent weight loss. No fever, chills, night sweats. ENDOCRINE: Unremarkable. HEMATOLOGY: Unremarkable. PHYSICAL EXAMINATION: She appears comfortable. No apparent distress. Vital signs are stable. Blood pressure 126/72, pulse 65, temperature 98.2. HEENT: Examination unremarkable. Conjunctivae pink. Sclerae anicteric. Oral cavity, no lesion. NECK: No JVD or lymph node enlargement. LUNGS: Clear to auscultation. HEART: Regular rate and rhythm. ABDOMEN: Soft. Bowel sounds are positive. No organomegaly. EXTREMITIES: No pedal edema. SKIN: No rashes. NEUROLOGIC: Alert and oriented x3. No focal deficits. LAB: Labs done at the time of admission to the hospital: WBC 8.9, hemoglobin 13.6, platelets are normal. Basic metabolic panel is within normal limits. ALT and AST are within normal limits. Lipase is more than 20,000 today. Lipase is down to 2325. AST, ALT, alkaline phosphatase and T bilirubin are normal. Amylase was not done. CT of the abdomen was done during recent episode of pancreatitis in December of 2017 that showed evidence of acute pancreatitis. IMPRESSION: This is a lady who presents to the hospital with acute onset of pain for the 2 days duration associated with nausea and vomiting and pain radiating to the back with elevated amylase and lipase. All consistent with pancreatitis. Patient had multiple episodes. The first one about 12 years ago and since then had at least 12-15 episodes requiring multiple hospitalizations. She was investigated in the hospital about 8 years ago and underwent an ERCP with a stent placement in the pancreatic duct, but she does not recall any further details. In any event, these are completely within normal limits at this time, which makes it very unlikely that we are dealing with any biliary pancreatitis. She also had a cholecystectomy because of acute recurrent pancreatitis but did not change her clinical course. The etiology of pancreatitis remains unclear. No history of alcohol use. RECOMMENDATION: 1. Continue with symptomatic and supportive care. 2. Clear liquid diet. 3. Repeat labs in the morning and if they improve, she can be discharged home. 4. I discussed with the patient further workup that would include endoscopy and ultrasound of the pancreas for which she would be referred to [facility] or [facility] on outpatient basis. The patient was advised to follow up with me in the office in 2 weeks following discharge from the hospital. . MMODL / IJN: [id number] /
[2018-03-19] MEDS: PANTOPRAZOLE 40 MG/10 ML VIAL IV SCH (12:19)
--- NOTE | 2018-03-19 14:00 | P.DS ---
Providers Date of admission: 03/17/18 20:02 Expected date of discharge: 03/19/18 Attending physician: Corky Purvis MD Consults: 03/17/18 19:55 Consult Physician Routine Consulting Provider: Zoya Clark Consult Reason/Comments: recurrent pancreatitis Do you want consulting provider notified?: Yes Primary care physician: Reyes Russ - Discharge Diagnosis(es) (1) Recurrent acute pancreatitis Current Visit: Yes Status: Acute (2) COPD (chronic obstructive pulmonary disease) Current Visit: No Status: Acute (3) HTN (hypertension) Current Visit: No Status: Acute Hospital Course: The patient is a 62-year-old female that presented with abdominal pain found to have acute recurrent pancreatitis of unknown etiology after presenting with abdominal pain and the serum lipase of greater than 20,000, the patient had previously been hospitalized due to acute pancreatitis and at that time a CAT scan of the of the abdomen and MRCP CP which suggested dilated biliary and pancreatic ducts. The patient was made nothing by mouth started on morphine, antiemetics with Zofran and placed on IV fluids and her lipase trended down nicely and normalized. As a patient symptoms resolved her diet was gradually advanced from clears to a low-residue diet which she was tolerating well on day of discharge. GI doctor Amber was consulted who recommended no ERCP at this time as the patient's LFTs were normal, though she did recommend a referral to [facility] GI clinic for endoscopic ultrasound and ERCP. The referral was sent and the plan was for the GI office and referred to contact the patient to schedule a follow-up appointment. She was subsequently discharged home in stable condition. This discharge process took less than 30 minutes Patient Condition at Discharge: Good Plan - Discharge Summary Discharge Rx Participant: Yes New Discharge Prescriptions: Continue Albuterol Inhaler [Ventolin Hfa Inhaler] 1 - 2 puff INHALATION RT-Q6H PRN PRN Reason: Shortness Of Breath Gabapentin [Neurontin] 800 mg PO QID Albuterol Nebulized [Ventolin Nebulized] 2.5 mg INHALATION RT-QID PRN PRN Reason: Shortness Of Breath amLODIPine [Norvasc] 10 mg PO DAILY HYDROcodone/APAP 5-325MG [[place] 5-325] 1 each PO Q6HR PRN #28 tab PRN Reason: Moderate Pain Ondansetron [Zofran] 4 mg PO Q8HR PRN #8 tab PRN Reason: Nausea And Vomiting Famotidine [Pepcid] 20 mg PO BID #20 tablet Discharge Medication List Albuterol Inhaler [Ventolin Hfa Inhaler] 1 - 2 puff INHALATION RT-Q6H PRN [History] Albuterol Nebulized [Ventolin Nebulized] 2.5 mg INHALATION RT-QID PRN 08/31/16 [ History] Gabapentin [Neurontin] 800 mg PO QID 08/31/16 [History] amLODIPine [Norvasc] 10 mg PO DAILY 02/18/18 [History] HYDROcodone/APAP 5-325MG [[place] 5-325] 1 each PO Q6HR PRN #28 tab 03/14/18 [Rx] Famotidine [Pepcid] 20 mg PO BID #20 tablet 03/16/18 [Rx] Ondansetron [Zofran] 4 mg PO Q8HR PRN #8 tab 03/16/18 [Rx] Follow up Appointment(s)/Referral(s): Zoya Clark MD [STAFF PHYSICIAN] - 04/10/18 3:30 pm Reyes Russ MD [Primary Care Provider] - 1-2 days Discharge Disposition: HOME SELF-CARE
[2018-03-19] MEDS ORDERED: LOPERAMIDE 2 MG CAP PO PRN (14:08)
[2018-03-19 20:41] VITALS: TEMP 98.2
[2018-03-20] MEDS ORDERED: HYDROmorphone 0.5 MG/0.5 ML SYRINGE ONE (00:30)
[2018-03-20] MEDS ORDERED: HEPARIN SODIUM,PORCINE 5,000 UNIT/ML 1 ML VIAL ONE (00:30)
[2018-03-20] MEDS: HEPARIN SODIUM,PORCINE 5,000 UNIT/ML 1 ML VIAL SQ SCH ×2 (04:24→07:35)
[2018-03-20 04:39] VITALS: BP 117/69; PULSE 69; RESP 15
[2018-03-20] MEDS: HYDROmorphone 0.5 MG/0.5 ML SYRINGE IVP PRN (06:31)
[2018-03-20] MEDS: HYDROcodone/APAP 5-325MG 1 EACH TAB PO PRN (07:34)
[2018-03-20] MEDS: PANTOPRAZOLE 40 MG/10 ML VIAL IV SCH (07:35)
[2018-03-20] MEDS: GABAPENTIN 400 MG CAP PO SCH (07:35)
[2018-03-20] MEDS: amLODIPine 10 MG TAB PO SCH (07:35)
[2018-03-20] MEDS: LACTATED RINGERS 1,000 ML IV SCH (07:36)
== END 2018-03-20 08:49 | disposition home or self-care (01) | DRG 440 ==
LOC: EC 17:15 → 3SUR 20:02
PROVIDERS: ADMIT Internal Medicine; ATTEND Internal Medicine
DX: K85.90 Acute pancreatitis without necrosis or infection, unspecified (principal); K86.1 Other chronic pancreatitis; I10 Essential (primary) hypertension; J44.9 Chronic obstructive pulmonary disease, unspecified; N28.1 Cyst of kidney, acquired; F17.210 Nicotine dependence, cigarettes, uncomplicated; K21.9 Gastro-esophageal reflux disease without esophagitis; M06.9 Rheumatoid arthritis, unspecified; M19.90 Unspecified osteoarthritis, unspecified site; G43.909 Migraine, unspecified, not intractable, without status migrainosus; M81.0 Age-related osteoporosis without current pathological fracture; Z79.899 Other long term (current) drug therapy; Z90.721 Acquired absence of ovaries, unilateral; Z86.73 Personal history of transient ischemic attack (TIA), and cerebral infarction without residual deficits; Z90.49 Acquired absence of other specified parts of digestive tract; Z82.49 Family history of ischemic heart disease and other diseases of the circulatory system; Z82.3 Family history of stroke; Z80.0 Family history of malignant neoplasm of digestive organs; Z80.3 Family history of malignant neoplasm of breast; Z81.1 Family history of alcohol abuse and dependence
CPT/HCPCS: 36415; 71046; 80048; 80053; 80076; 83690; 83880; 84484; 85025; 87324; 96361; 96374; 96375; 99285

== ENCOUNTER 2018-03-25 19:50 | Observation (INO) | payer BC ==
[2018-03-25] MEDS ORDERED: NITROGLYCERIN SL TABS 0.4 MG TAB SUBLINGUAL STA (20:18)
[2018-03-25 21:05] LABS: Albumin 4.5 g/dL (3.5-5.0); Calcium 9.9 mg/dL (8.4-10.2); Magnesium 1.7 mg/dL (1.6-2.3); Potassium 4.2 mmol/L (3.5-5.1); Total Bilirubin 0.4 mg/dL (0.2-1.3); Total Protein 7.5 g/dL (6.3-8.2)
--- NOTE | 2018-03-25 21:11 | ED ---
Chest Pain HPI - General Chief Complaint: Chest Pain Stated Complaint: Chest Pain Time Seen by Provider: 03/25/18 20:09 Source: patient Mode of arrival: wheelchair Limitations: no limitations - History of Present Illness Initial Comments: This is a 62-year-old female with a history of pancreatitis and colitis who presents emergency department for chest pain. She states that it started approximately 30-60 minutes prior to arrival. She describes it as a left-sided sensation and is sharp in nature. She states that it's worse with deep breathing and she feels like she is having difficulty catching her breath. She denies any radiation of the pain. No nausea or vomiting. No lightheadedness. She states that she did take an aspirin at home. She denies a history of CAD. She does have a history of hypertension however. She does smoke. States that she was recently hospitalized for pancreatitis and colitis. States that the symptoms do not feel similar to that. - Related Data Home Medications Medication Instructions Recorded Confirmed Albuterol Inhaler [Ventolin Hfa 1 - 2 puff INHALATION RT-Q6H PRN 07/15/16 Inhaler] Albuterol Nebulized [Ventolin 2.5 mg INHALATION RT-QID PRN 08/31/16 03/25/18 Nebulized] Gabapentin [Neurontin] 800 mg PO QID 08/31/16 03/25/18 amLODIPine [Norvasc] 10 mg PO DAILY 02/18/18 03/25/18 HYDROcodone/APAP 10-325MG [[place] 1 tab PO Q6HR PRN 03/25/18 03/25/18 10-325] Promethazine HCl 12.5 mg PO TID PRN 03/25/18 03/25/18 Previous Rx's Medication Instructions Recorded Famotidine [Pepcid] 20 mg PO BID #20 tablet 03/16/18 Allergies Allergy/AdvReac Type Severity Reaction Status Date / Time No Known Allergies Allergy Verified 03/25/18 20:23 Review of Systems ROS Statement: Those systems with pertinent positive or pertinent negative responses have been documented in the HPI. ROS Other: All systems not noted in ROS Statement are negative. Past Medical History Past Medical History: COPD, CVA/TIA, GERD/Reflux, Hypertension, Osteoarthritis ( OA), Rheumatoid Arthritis (RA) Additional Past Medical History / Comment(s): Pt recently admitted to [facility] on with colitis/sepsis/R renal cyst. Other hx: Recurrent pancreatitis, bronchitis, TIA, anemia-unknown cause, migraines, ostoeporosis, past R femur fracture with surgery., History of Any Multi-Drug Resistant Organisms: None Reported Past Surgical History: Appendectomy, Back Surgery, Cholecystectomy, Orthopedic Surgery, Tonsillectomy Additional Past Surgical History / Comment(s): Pancreatic stents-since removed, 6 back surgeries with 2 fusions, right oophorectomy due to ectopic , EGD/colonoscopy, right leg alice inserted d/t fracture, Past Anesthesia/Blood Transfusion Reactions: No Reported Reaction Additional Past Anesthesia/Blood Transfusion Reaction / Comment(s): Pt has received blood in past without reaction. Past Psychological History: No Psychological Hx Reported Smoking Status: Current every day smoker Past Alcohol Use History: None Reported Past Drug Use History: None Reported - Past Family History Father Family Medical History: Cancer, Liver Disease Additional Family Medical History / Comment(s): Father was an alcoholic. He from lung/ liver cancer. Mother Family Medical History: Cancer, CVA/TIA, Hypertension Additional Family Medical History / Comment(s): Mother had breast and colon cancer. She of liver cancer at the age of 78 yrs. General Exam - General Exam Comments Initial Comments: Constitutional: Awake alert Appears comfortable Head: Normocephalic atraumatic Eyes: no conjunctival injection No scleral icterus EOMI Neck: No JVD Supple Heart: Regular rate rhythm normal S1-S2 no murmurs Lungs: Clear to auscultation bilaterally No wheezing No rales Abdomen: Soft nondistended nontender Extremities: Non edematous DP pulses intact Radial pulses intact Neuro: A&Ox3 No focal neurologic deficits Psych: Appropriate mood and affect Limitations: no limitations Course Vital Signs 03/25/18 03/25/18 03/25/18 19:53 20:00 20:52 Temperature 98.2 F Pulse Rate 103 H 90 Pulse Rate [ 98 Bilateral Sitting Radial] Respiratory 18 18 18 Rate Blood Pressure 112/73 109/67 O2 Sat by Pulse 100 96 Oximetry 03/25/18 22:11 Temperature Pulse Rate 77 Pulse Rate [ Bilateral Sitting Radial] Respiratory 18 Rate Blood Pressure 108/68 O2 Sat by Pulse 99 Oximetry - Reevaluation(s) Reevaluation #1: 03/25/18 21:11 EKG showing sinus tachycardia with a rate of 102. No abnormal ST 7 changes or T -wave inversions. QTC is 484. Other intervals normal. No ectopy. Chest Pain MDM - MDM Is a 62-year-old female who presents emergency department for chest pain. The patient states her chest pain has improved after morphine. EKG was unremarkable. Troponin negative. D-dimer was elevated however CT was negative for PE. Patient is going to be admitted for further evaluation of the etiology of her chest pain. Dr. Polk accepts admission. Disposition Clinical Impression: Chest pain Disposition: ADMITTED IP TO THIS HOSP Condition: Stable
[2018-03-25 21:12] LABS: Anisocytosis Slight; Basophils % (A) 0 %; Eosinophils # (A) 0.1 k/uL (0-0.7); Eosinophils % (A) 1 %; HCT 38.4 % (34.0-46.0); HGB 12.5 gm/dL (11.4-16.0); Lymphocytes # (A) 2.6 k/uL (1.0-4.8); Lymphocytes % (A) 23 %; MCH 27.9 pg (25.0-35.0); MCHC 32.5 g/dL (31.0-37.0); Mean Platelet Volume 7.1; Monocytes # (A) 0.7 k/uL (0-1.0); Monocytes % (A) 6 %; Neutrophils # (A) 7.8 k/uL (1.3-7.7); Neutrophils % (A) 68 %; Platelet Count 434 k/uL (150-450); RBC 4.47 m/uL (3.80-5.40); RDW 16.1 % (11.5-15.5); WBC 11.3 k/uL (3.8-10.6)
--- NOTE | 2018-03-25 21:18 | XR ---
EXAMINATION TYPE: XR chest 2V DATE OF EXAM: 03/25/2018 COMPARISON: 03/17/2018 HISTORY: Chest pain TECHNIQUE: Frontal and lateral views of the chest are obtained. FINDINGS: Heart and mediastinum are normal. There is some minimal nodular density in the periphery o f the right midlung and also in the right upper lobe. Margins are indistinct.. Diaphragm is normal. B trae thorax is intact. There are chest leads. IMPRESSION: Minimal densities in the right upper lobe are unchanged. Normal heart.. Densities are ne w compared to chest x-ray of 09/08/2016 and likely related to inflammatory disease.
[2018-03-25 21:21] LABS: INR 0.9 (<1.2); Prothrombin Time 9.4 sec (9.0-12.0)
[2018-03-25 21:24] LABS: D-Dimer 2.15 mg/L FEU (<0.60)
[2018-03-25] MEDS ORDERED: MORPHINE SULFATE 4 MG/ML SYRINGE IVP STA (21:36)
[2018-03-25 21:37] LABS: Poikilocytosis (M) Present
--- NOTE | 2018-03-25 23:05 | CT ---
EXAMINATION TYPE: CT angio chest DATE OF EXAM: 03/25/2018 10:10 PM COMPARISON: 01/31/2016 HISTORY: Chest pain CT DLP: mGycm Automated exposure control for dose reduction was used. CONTRAST: CTA scan of the thorax is performed , patient injected with mL of , pulmonary embolism protocol. . Th e contrast was Isovue 80 mL. There are 3-D post processed images. FINDINGS: The lungs are clear of consolidation. There is no evidence of a pulmonary mass. There is no pleural e ffusion. Heart size is normal. There is no pericardial effusion. Thoracic aorta appears normal. There is normal contrast opacification of the pulmonary arteries. I see no filling defects. There is no me diastinal adenopathy. There are no hilar masses. Thoracic spine is intact. IMPRESSION: NEGATIVE EXAM. NO EVIDENCE OF PULMONARY EMBOLISM.
[2018-03-25] MEDS ORDERED: NITROGLYCERIN SL TABS 0.4 MG TAB SUBLINGUAL PRN (23:10)
[2018-03-26] MEDS ORDERED: ALBUTEROL NEBULIZED 2.5 MG/3 ML INHALATION PRN (00:05)
--- NOTE | 2018-03-26 00:33 | P.HPIM ---
History of Present Illness H&P Date: 03/26/18 Chief Complaint: Chest pain This is a 62-year-old female who has a history of recurrent attacks of acute pancreatitis who presented today with left sided chest pain. 3 weeks prior to this admission patient was admitted here with abdominal pain nausea and vomiting and diagnosed with acute pancreatitis. She was recently discharged about 2 weeks ago with another episode of acute pancreatitis. At that time MRI of the pancreas was done and showed some irregularity and pancreatic duct and she was recommended to follow-up with [facility] for further evaluation. Patient states that for about 1 month she's been having intermittent left-sided sharp stabbing like chest pains. Mostly brought up by movements or deep breaths. She states that last few seconds and then go away. On the day of admission pain reoccurred and was not going away. At that time she was cooking dinner. She feels that she's been under a lot of stress that she's been thinking about it and the pain started. She localizes the pain under her left rest area. She describes it as a sharp pain that's worse with laying down and better with sitting up. Also worse with cough, deep breaths or certain movements. She states that pain is constant for the whole day. She did not notice any shortness of breath, nausea, vomiting, sour taste in her mouth or heartburns. No fever or chills or any abdominal pain or any changes in her bowel movements. Emergency department she underwent CTA of the chest that excluded pulmonary embolism or any other lung or chest pathology. At the time of the interview patient was observed ambulating in the room and being comfortable without any obvious discomfort from the pain or any distress. Review of Systems Constitutional: Reports as per HPI, Denies anorexia, Denies chills, Denies chronic pain, Denies fever, Denies sweats Ears, nose, mouth and throat: Denies dysphagia, Denies headache, Denies hoarseness Cardiovascular: Reports as per HPI Respiratory: Reports as per HPI Gastrointestinal: Reports as per HPI Genitourinary: Denies difficulty voiding Musculoskeletal: Denies frequent falls, Denies gait dysfunction Integumentary: Denies pruritus, Denies rash Neurological: Denies headaches Psychiatric: Reports anxiety Past Medical History Past Medical History: COPD, CVA/TIA, GERD/Reflux, Hypertension, Osteoarthritis ( OA), Rheumatoid Arthritis (RA) Additional Past Medical History / Comment(s): Pt recently admitted to [facility] on with colitis/sepsis/R renal cyst. Other hx: Recurrent pancreatitis, bronchitis, TIA, anemia-unknown cause, migraines, ostoeporosis, past R femur fracture with surgery., History of Any Multi-Drug Resistant Organisms: None Reported Past Surgical History: Appendectomy, Back Surgery, Cholecystectomy, Orthopedic Surgery, Tonsillectomy Additional Past Surgical History / Comment(s): Pancreatic stents-since removed, 6 back surgeries with 2 fusions, right oophorectomy due to ectopic , EGD/colonoscopy, right leg alice inserted d/t fracture, Past Anesthesia/Blood Transfusion Reactions: No Reported Reaction Additional Past Anesthesia/Blood Transfusion Reaction / Comment(s): Pt has received blood in past without reaction. Past Psychological History: No Psychological Hx Reported Smoking Status: Current every day smoker Past Alcohol Use History: None Reported Past Drug Use History: None Reported - Past Family History Father Family Medical History: Cancer, Liver Disease Additional Family Medical History / Comment(s): Father was an alcoholic. He from lung/ liver cancer. Mother Family Medical History: Cancer, CVA/TIA, Hypertension Additional Family Medical History / Comment(s): Mother had breast and colon cancer. She of liver cancer at the age of 78 yrs. Medications and Allergies Home Medications Medication Instructions Recorded Confirmed Type Albuterol Inhaler [Ventolin Hfa 1 - 2 puff INHALATION RT-Q6H PRN 07/15/16 History Inhaler] Albuterol Nebulized [Ventolin 2.5 mg INHALATION RT-QID PRN 08/31/16 03/25/18 History Nebulized] Gabapentin [Neurontin] 800 mg PO QID 08/31/16 03/25/18 History amLODIPine [Norvasc] 10 mg PO DAILY 02/18/18 03/25/18 History Famotidine [Pepcid] 20 mg PO BID #20 tablet 03/16/18 03/25/18 Rx HYDROcodone/APAP 10-325MG [[place] 1 tab PO Q6HR PRN 03/25/18 03/25/18 History 10-325] Promethazine HCl 12.5 mg PO TID PRN 03/25/18 03/25/18 History Allergies Allergy/AdvReac Type Severity Reaction Status Date / Time No Known Allergies Allergy Verified 03/25/18 20:23 Physical Exam Vitals: Vital Signs Temp Pulse Pulse Resp BP Pulse Ox 03/25/18 23:36 81 18 127/74 99 03/25/18 22:11 77 18 108/68 99 03/25/18 20:52 90 18 109/67 96 03/25/18 20:00 98 18 03/25/18 19:53 98.2 F 103 H 18 112/73 100 Intake and Output 03/25/18 03/25/18 03/26/18 14:59 22:59 06:59 Other: Weight 62.777 kg - Constitutional General appearance: average body habitus, cooperative, no acute distress - EENT Eyes: anicteric sclerae, PERRLA - Neck Neck: no lymphadenopathy, normal ROM - Respiratory Respiratory: bilateral: CTA - Cardiovascular Heart sounds: normal: S1, S2 Abnormal Heart Sounds: no systolic murmur, no diastolic murmur - Gastrointestinal General gastrointestinal: no decreased bowel sounds, normal bowel sounds, no organomegaly, no tenderness - Neurologic Neurologic: CNII-XII intact, focal deficits (.) - Musculoskeletal Musculoskeletal: gait normal - Psychiatric Psychiatric: A&O x's 3, appropriate affect, intact judgment & insight Results CBC & Chem 7: 03/25/18 20:45 03/25/18 20:45 Labs: Abnormal Lab Results - Last 24 Hours (Table) 03/25/18 03/25/18 03/25/18 Range/Units 20:45 20:45 20:45 WBC 11.3 H (3.8-10.6) k/uL RDW 16.1 H (11.5-15.5) % Neutrophils # 7.8 H (1.3-7.7) k/uL D-Dimer 2.15 H (<0.60) mg/L FEU Glucose 118 H (74-99) mg/dL Assessment and Plan Assessment: 1. Left-sided chest pain atypical and less likely to be anginal in nature Positional and provoked by respiratory movements CT of the chest is negative and troponin EKG unremarkable D-dimer elevated Rule out left upper quadrant abdominal pathology Consider splenic vein thrombosis or similar left upper quadrant pathology We'll order ultrasound of the left upper quadrant with instruction to attempt to visualize splenic vein If that is not possible May consider other modalities of imaging including a CAT scan We will also had inflammatory markers sedimentation rate and CRP as slight possibility for acute pericarditis giving the specific positional characteristics of the pain Continue pain control And ambulates as sometimes states longer elevated then lipase in case of peripancreatic fluid collections
[2018-03-26 00:40] LABS: Cholesterol 206 mg/dL (<200); HDL Cholesterol 42 mg/dL (40-60); LDL Cholesterol,Calculated 119 mg/dL (0-99); Triglycerides 223 mg/dL (<150)
[2018-03-26 01:02] VITALS: BMI 21.7
[2018-03-26] MEDS: HYDROcodone/APAP 10-325MG 1 EACH TAB PO PRN ×3 (01:12→14:45)
[2018-03-26] MEDS ORDERED: ACETAMINOPHEN TAB 325 MG TAB PO PRN (02:36)
[2018-03-26] MEDS: MAG HYDROX/AL HYDROX/SIMETH 30 ML CUP PO PRN ×2 (02:43→08:57)
[2018-03-26 03:12] LABS: Creatine Kinase 66 U/L (30-135)
[2018-03-26 03:24] LABS: Creatine Kinase MB 0.7 ng/mL (0.0-2.4); Troponin I <0.012 ng/mL (0.000-0.034)
--- NOTE | 2018-03-26 08:49 | US ---
EXAMINATION TYPE: US abdomen limited DATE OF EXAM: 03/26/2018 COMPARISON: MRCP dated 03/13/2018. CLINICAL HISTORY: LUQ pain,evaluateLUQ and splenic vein for thrombosis. EXAM MEASUREMENTS: Spleen: wnl Left Kidney: wnl 1. Spleen: 8.5cm 2. Left Kidney: 9.5 x 4.3 x 4.8cm Splenic vein appears patent in its visualized portions. Incidentally there is redemonstration of panc reatic ductal dilatation measuring up to 5 mm. IMPRESSION: 1. Left kidney is unremarkable with no evidence of hydronephrosis or nephrolithiasis. 2. Spleen is also unremarkable sonographically and there is no evidence of splenic vein thrombosis in the visualized portions of the splenic vein. 3. Again there is redemonstration of pancreatic ductal dilatation for which ERCP is recommended if no t recently performed.
[2018-03-26] MEDS: GABAPENTIN 400 MG CAP PO SCH ×2 (08:52→14:46)
[2018-03-26] MEDS ORDERED: amLODIPine 10 MG TAB PO SCH (09:00)
[2018-03-26] MEDS ORDERED: FAMOTIDINE 20 MG TAB PO SCH (09:00)
[2018-03-26] MEDS ORDERED: ASPIRIN 325 MG TAB PO SCH (09:00)
[2018-03-26 09:03] LABS: Creatine Kinase 55 U/L (30-135)
[2018-03-26 09:13] LABS: Creatine Kinase MB 0.7 ng/mL (0.0-2.4); Troponin I <0.012 ng/mL (0.000-0.034)
[2018-03-26 09:17] VITALS: RESP 18
[2018-03-26] MEDS ORDERED: KETOROLAC 30 MG/ML 1 ML VIAL IVP STA (11:28)
[2018-03-26] MEDS ORDERED: MORPHINE SULFATE 4 MG/ML SYRINGE IVP STA ×2 (12:04→17:53)
--- NOTE | 2018-03-26 12:38 | P.CRDCN ---
History of Present Illness Consult date: 03/26/18 Requesting physician: Elmer Polk Consult reason: chest pain History of present illness: This is a 62-year-old female with history of hypertension, nicotine dependence, recently he has had frequent bouts with pancreatitis, presents to the hospital on this occasion with symptoms of sharp chest pain in the left chest area. Pain worsens significantly when the patient takes a deep breath. She denies any associated shortness of breath or diaphoresis. EKG on arrival here showed a sinus tachycardia with no acute changes. Chest x-ray shows minimal densities in the right upper lobe unchanged from prior. CTA of the chest no evidence of pulmonary embolism. Ultrasound of the abdomen was performed which revealed redemonstration of pancreatic ductal diastolic dictation. Blood pressure 112/70 with a heart rate in the 90s, 100% on room air. White blood cell count 11.3, hemoglobin 12.5, platelet count 434. D- dimer 2.1, sodium 137 potassium 42, BUN 13, creatinine 1.0. Troponins negative 3. C-reactive protein 23.6. Cholesterol 206, LDL 119, triglycerides 223, HDL 42. At the time of my examination this morning, patient continues to have chest pain, only present with taking deep breaths. Past Medical History Past Medical History: COPD, CVA/TIA, GERD/Reflux, Hypertension, Osteoarthritis ( OA), Rheumatoid Arthritis (RA) Additional Past Medical History / Comment(s): Pt recently admitted to [facility] on with colitis/sepsis/R renal cyst. Other hx: Recurrent pancreatitis, bronchitis, TIA, anemia-unknown cause, migraines, ostoeporosis, past R femur fracture with surgery., History of Any Multi-Drug Resistant Organisms: None Reported Past Surgical History: Appendectomy, Back Surgery, Cholecystectomy, Orthopedic Surgery, Tonsillectomy Additional Past Surgical History / Comment(s): Pancreatic stents-since removed, 6 back surgeries with 2 fusions, right oophorectomy due to ectopic , EGD/colonoscopy, right leg alice inserted d/t fracture, Past Anesthesia/Blood Transfusion Reactions: No Reported Reaction Additional Past Anesthesia/Blood Transfusion Reaction / Comment(s): Pt has received blood in past without reaction. Past Psychological History: No Psychological Hx Reported Smoking Status: Current every day smoker Past Alcohol Use History: None Reported Past Drug Use History: None Reported - Past Family History Father Family Medical History: Cancer, Liver Disease Additional Family Medical History / Comment(s): Father was an alcoholic. He from lung/ liver cancer. Mother Family Medical History: Cancer, CVA/TIA, Hypertension Additional Family Medical History / Comment(s): Mother had breast and colon cancer. She of liver cancer at the age of 78 yrs. Medications and Allergies Home Medications Medication Instructions Recorded Confirmed Type Albuterol Inhaler [Ventolin Hfa 1 - 2 puff INHALATION RT-Q6H PRN 07/15/16 History Inhaler] Albuterol Nebulized [Ventolin 2.5 mg INHALATION RT-QID PRN 08/31/16 03/25/18 History Nebulized] Gabapentin [Neurontin] 800 mg PO QID 08/31/16 03/25/18 History amLODIPine [Norvasc] 10 mg PO DAILY 02/18/18 03/25/18 History Famotidine [Pepcid] 20 mg PO BID #20 tablet 03/16/18 03/25/18 Rx HYDROcodone/APAP 10-325MG [[place] 1 tab PO Q6HR PRN 03/25/18 03/25/18 History 10-325] Promethazine HCl 12.5 mg PO TID PRN 03/25/18 03/25/18 History Allergies Allergy/AdvReac Type Severity Reaction Status Date / Time No Known Allergies Allergy Verified 03/25/18 20:23 Physical Exam Vitals: Vital Signs Temp Pulse Pulse Resp BP BP Pulse Ox 03/26/18 11:39 73 18 03/26/18 11:00 97.3 F L 73 18 109/55 94 L 03/26/18 08:51 97.0 F L 68 18 106/52 95 03/26/18 04:04 97.1 F L 68 17 115/59 97 03/26/18 01:00 97.0 F L 74 17 105/59 97 03/25/18 23:36 81 18 127/74 99 03/25/18 23:10 97 03/25/18 22:11 77 18 108/68 99 03/25/18 20:52 90 18 109/67 96 03/25/18 20:00 98 18 03/25/18 19:53 98.2 F 103 H 18 112/73 100 Intake and Output 03/25/18 03/26/18 03/26/18 22:59 06:59 14:59 Intake Total 20 Output Total 300 Balance -300 20 Intake: IV 20 Invasive Line 1 20 Output: Urine 300 Other: # Voids 1 Weight 62.777 kg 63.2 kg PHYSICAL EXAMINATION: GENERAL: 62-year-old female in no acute distress of my examination HEENT: Head is atraumatic, normocephalic. Pupils equal, round. Sclera anicteric. Conjunctiva are clear. Mucous membranes of the mouth are moist. Neck is supple. There is no elevated jugular venous pressure.No carotid bruit is heard. HEART EXAMINATION: Heart S1, S2 normal. No murmur or gallop heard. CHEST EXAMINATION: Lungs are clear to auscultation and precussion. Positive chest wall tenderness is noted on palpation, and with deep breathing. ABDOMEN: Soft, mild right upper quadrant tenderness . Bowel sounds are heard. No organomegaly noted. EXTREMITIES: 2+ peripheral pulses with no evidence of peripheral edema and no calf tenderness noted. NEUROLOGIC patient is awake, alert and oriented X3. . Results 03/25/18 20:45 03/25/18 20:45 Cardiac Enzymes 03/25/18 03/25/18 03/26/18 Range/Units 20:45 20:45 02:27 AST 28 (14-36) U/L CK-MB (CK-2) 0.7 (0.0-2.4) ng/mL Troponin I <0.012 <0.012 (0.000-0.034) ng/mL 03/26/18 Range/Units 08:14 AST (14-36) U/L CK-MB (CK-2) 0.7 (0.0-2.4) ng/mL Troponin I <0.012 (0.000-0.034) ng/mL Coagulation 03/25/18 Range/Units 20:45 PT 9.4 (9.0-12.0) sec APTT 22.0 (22.0-30.0) sec Lipids 03/25/18 Range/Units 20:45 Triglycerides 223 H (<150) mg/dL Cholesterol 206 H (<200) mg/dL HDL Cholesterol 42 (40-60) mg/dL CBC 03/25/18 Range/Units 20:45 WBC 11.3 H (3.8-10.6) k/uL RBC 4.47 (3.80-5.40) m/uL Hgb 12.5 (11.4-16.0) gm/dL Hct 38.4 (34.0-46.0) % Plt Count 434 (150-450) k/uL Comprehensive Metabolic Panel 03/25/18 Range/Units 20:45 Sodium 137 (137-145) mmol/L Potassium 4.2 (3.5-5.1) mmol/L Chloride 104 (98-107) mmol/L Carbon Dioxide 22 (22-30) mmol/L BUN 13 (7-17) mg/dL Creatinine 1.00 (0.52-1.04) mg/dL Glucose 118 H (74-99) mg/dL Calcium 9.9 (8.4-10.2) mg/dL AST 28 (14-36) U/L ALT 25 (9-52) U/L Alkaline Phosphatase 72 (38-126) U/L Total Protein 7.5 (6.3-8.2) g/dL Albumin 4.5 (3.5-5.0) g/dL Current Medications Generic Name Dose Route Start Last Admin Trade Name Freq PRN Reason Stop Dose Admin Acetaminophen 650 mg 03/26/18 02:36 03/26/18 02:43 Tylenol Tab PO 650 mg Q4HR PRN Administration Fever and/ or MILD Pain Hydrocodone Bitart/Acetaminophen 1 each 03/26/18 00:05 03/26/18 08:58 [place] 10 PO 1 each Q6HR PRN Administration MODERATE-SEVERE Pain Al Hydroxide/Mg Hydroxide 30 ml 03/26/18 02:36 03/26/18 08:57 Maalox PO 30 ml Q4HR PRN Administration GI Upset Albuterol Sulfate 2.5 mg 03/26/18 00:05 Ventolin Nebulized INHALATION RT-QID PRN Shortness Of Breath Amlodipine Besylate 10 mg 03/26/18 09:00 Norvasc PO DAILY JOLLY Aspirin 81 mg 03/27/18 09:00 Aspirin PO DAILY JOLLY Famotidine 20 mg 03/26/18 09:00 03/26/18 08:52 Pepcid PO 20 mg BID JOLLY Administration Gabapentin 800 mg 03/26/18 09:00 03/26/18 08:52 Neurontin PO 800 mg QID JOLLY Administration Intake and Output 07/23/18 07/24/18 07/24/18 22:59 06:59 14:59 Intake Total 20 Output Total 300 Balance -300 20 Intake: IV 20 Invasive Line 1 20 Output: Urine 300 Other: # Voids 1 Weight 62.777 kg 63.2 kg 03/25/18 20:45 03/25/18 20:45 EKG Interpretations (text) EKG shows a sinus tachycardia with no acute changes. Assessment and Plan Plan: Assessment and plan #1 chest pain, atypical for acute coronary syndrome. Pleuritic in nature. Troponins negative 3. EKG shows a sinus tachycardia with no acute changes. #2 hypertension #3 nicotine dependence #4 COPD #5 recent recurrent bouts of pancreatitis Plan Echocardiogram with Doppler study has been requested. Patient has also been advised to undergo stress echocardiographic study which will be performed today. Further recommendations will be based on these findings and patient's clinical course. DNP note has been reviewed, I agree with a documented findings and plan of care. Patient was seen and examined.
--- NOTE | 2018-03-26 13:13 | ECHOF ---
Referral Reason:atypical chest pain MEASUREMENTS -------- HEIGHT: 170.2 cm WEIGHT: 63.0 kg BP: 109/55 RVIDd: 3.3 cm (< 3.3) IVSd: 1.2 cm (0.6 - 1.1) LVIDd: 3.5 cm (3.9 - 5.3) LVPWd: 1.2 cm (0.6 - 1.1) IVSs: 1.5 cm LVIDs: 2.2 cm LVPWs: 1.2 cm LA Diam: 2.7 cm (2.7 - 3.8) LAESV Index (A-L): 19.61 ml/m Ao Diam: 3.1 cm (2.0 - 3.7) AV Cusp: 2.1 cm (1.5 - 2.6) MV EXCURSION: 19.783 mm (> 18.000) MV EF SLOPE: 119 mm/s (70 - 150) EPSS: 0.[address]: 0.69 m/s MV DecT: [address]: 0.52 m/s MV E/A Ratio: 1.32 FINDINGS -------- Sinus rhythm. This was a technically good study. The left ventricular size is normal. There is borderline concentric left ventricular hypertrophy. Overall left ventricular systolic function is normal with, an EF between 55 - 60 %. The right ventricle is mildly enlarged. Normal LA size by volume 22+/-6 ml/m2. The right atrium is normal in size. The aortic valve is trileaflet and appears structurally normal. There is trace mitral regurgitation. No regurgitation noted The pulmonic valve was not well visualized. The aortic root size is normal. Normal inferior vena cava with normal inspiratory collapse consistent with estimated right atrial pre ssure of 5 mmHg. There is no pericardial effusion. CONCLUSIONS -------- 1. Sinus rhythm. 2. This was a technically good study. 3. The left ventricular size is normal. 4. There is borderline concentric left ventricular hypertrophy. 5. Overall left ventricular systolic function is normal with, an EF between 55 - 60 %. 6. The right ventricle is mildly enlarged. 7. Normal LA size by volume 22+/-6 ml/m2. 8. The right atrium is normal in size. 9. The aortic valve is trileaflet and appears structurally normal. 10. There is trace mitral regurgitation. 11. No regurgitation noted 12. The pulmonic valve was not well visualized. 13. The aortic root size is normal. 14. Normal inferior vena cava with normal inspiratory collapse consistent with estimated right atrial pressure of 5 mmHg. 15. There is no pericardial effusion. FLIGHT ATTENDANT RAMP: Jeni Nina RDCS
--- NOTE | 2018-03-26 13:25 | P.PN ---
Progress Note - Text Progress Note Date: 03/26/18 The patient is a 62-year-old female well known to our service is been here for idiopathic pancreatitis flares who was admitted overnight with atypical chest pain pleuritic in nature, her initial EKG and sequential troponins were negative for any suggestion of ischemia , CTA of her chest was negative for pulmonary embolism. We'll plan to consult cardiology and order her echocardiogram, patient continues to complain of chest/abdominal pain we' ll plan to repeat his CT abdomen and pelvis and give her morphine for pain as current dose of [place] 10 is not working. Of note her pancreatic enzymes on this admission are normal. Abdominal ultrasound performed only shows pancreatic duct dilatation for which ERCP is recommended. On her previous discharge approximately 2 weeks ago 03/19/18. Javed Morley per the request of Dr. Clark was supposed to contact the patient to set up appointment for ERCP and further evaluation . Patient has reported that she has not been contacted for any such appointment
--- NOTE | 2018-03-26 13:38 | CT ---
EXAMINATION TYPE: CT abdomen pelvis wo con DATE OF EXAM: 03/26/2018 COMPARISON: None HISTORY: Left lower chest pain CT DLP: 790 mGycm Examination of the solid and hollow viscera is limited given the lack of contrast. FINDINGS: LUNG BASES: No evidence for nodule. No evidence for infiltrate. LIVER/GB: Cholecystectomy clips clips noted. No space-occupying hepatic lesion. PANCREAS: No pancreatic mass identified. No inflammatory process seen. SPLEEN: No evidence for splenomegaly. No intrasplenic lesions seen. ADRENALS: No adrenal nodules identified. No evidence for thickening. KIDNEYS: No evidence for solid renal mass. No nephrolithiasis. No hydronephrosis. Residual contrast w ithin the ureters and urinary bladder from a CTA from the previous day. BOWEL: Appendix has a normal appearance. No evidence of bowel obstruction. No inflammatory process. Lymph nodes: No evidence for adenopathy greater than 1 cm. Abdominal aorta: Atheromatous changes seen. No evidence for aneurysm. Genital organs: No significant abnormality. Other: No significant abnormality. IMPRESSION: NO SIGNIFICANT ABNORMALITY APPRECIATED AT THIS TIME.
[2018-03-26 13:39] LABS: Albumin 3.8 g/dL (3.5-5.0); Calcium 9.5 mg/dL (8.4-10.2); Potassium 4.4 mmol/L (3.5-5.1); Total Bilirubin 0.4 mg/dL (0.2-1.3); Total Protein 6.4 g/dL (6.3-8.2)
--- NOTE | 2018-03-26 14:20 | EST ---
EXERCISE STRESS AGE: 62 SEX: F HT: 67 WT: 139 PROTOCOL: Stress Echo STAGE: II DURATION OF EXERCISE: 6:00 HEART RATE REST: 57 BLOOD PRESSURE REST: 102/68 MAXIMUM HEART RATE ACHIEVED: 127 MAXIMUM BLOOD PRESSURE: 161/76 85% MPHR: 134 100% MPHR: 158 METS: 7.1 INDICATIONS: CP CLINICAL INFORMATION: Baseline rhythm is a sinus mechanism, normal axis and intervals, normal echocardiogram. Baseline blood pressure 102/68 mmHg. Patient exercised on Shree protocol for 6 minutes reaching peak rate of 127 beats per minute which is equal to 81% maximum predicted heart rate. Peak blood pressure 161/76 mmHg. Test was terminated because of fatigue. There were no chest pains. Electrocardiograph monitoring revealed frequent PVCs in a bigeminal pattern with rare couplets. There was no evidence of diagnostic ischemic ST deviation. FINDINGS: Baseline echocardiogram revealed normal wall thickening motion at peak exercise. There was normal wall motion augmentation with no hypokinesis or dyskinesis. CONCLUSION: 1. Average exercise tolerance with nondiagnostic electrocardiogram stress testing secondary to the inability to achieve 85% maximum predicted heart rate with frequent PVCs and bigeminal pattern. 2. Normal stress echocardiogram with no evidence of stress induced ischemia. MMODL / IJN: [id number] /
[2018-03-26 16:20] VITALS: PULSE 78
[2018-03-26 16:21] VITALS: BP 106/50; TEMP 97.2
[2018-03-27] MEDS ORDERED: ASPIRIN 81 MG PO SCH (09:00)
--- NOTE | 2018-03-28 07:54 | P.DS ---
Providers Date of admission: 03/25/18 23:12 Expected date of discharge: 03/26/18 Attending physician: Elmer Polk MD Consults: 03/26/18 11:23 Consult Physician Routine Consulting Provider: Davy Cardona Consult Reason/Comments: atypical chest pain Do you want consulting provider notified?: Yes Primary care physician: Reyes Russ - Discharge Diagnosis(es) (1) Atypical chest pain Status: Acute (2) Abdominal pain Status: Acute Hospital Course: the patient is a 62-year-old female that presented with atypical chest pain and abdominal pain with history of recurrent bouts of idiopathic acute pancreatitis. she was placed in observation to rule out ACS. all of her troponins were negative her EKG on arrival showed sinus tachycardia with no acute changes. echocardiogram done showed normal ejection fraction the patient also had a stress echo with no evidence of stress-induced ischemia, she did have elevated d-dimer and subsequent CTA of the chest was negative for pulmonary embolism. given the patient's history of recurrent acute idiopathic pancreatitis at lipase was checked and was found to be normal, despite analgesic therapy with morphine the patient can continue to complain of abdominal pain and a repeat CT abdomen and pelvis was ordered that was negative for any acute intra-abdominal pathology. despite all these negative findings a patient continued to complain of abdominal pain, I subsequently consulted general surgery for further recommendations and evaluation, however the patient left AMA prior to being seen. as part of her previous discharge plan from her last hospitalization, Javed Morley was supposed to contact the patient to set up a follow-up appointment for possible ERCP, however the patient denied getting a call from Javed Morley set up an appointment. I contacted Erin Correa with Dr. Clark's office to contact the patient and Javed Morley to set up an appointment so the patient does not get lost to follow- up. this discharge process took approximately 30 minutes Patient Condition at Discharge: Stable Plan - Discharge Summary New Discharge Prescriptions: No Action Albuterol Inhaler [Ventolin Hfa Inhaler] 1 - 2 puff INHALATION RT-Q6H PRN PRN Reason: Shortness Of Breath Gabapentin [Neurontin] 800 mg PO QID Albuterol Nebulized [Ventolin Nebulized] 2.5 mg INHALATION RT-QID PRN PRN Reason: Shortness Of Breath amLODIPine [Norvasc] 10 mg PO DAILY Famotidine [Pepcid] 20 mg PO BID #20 tablet HYDROcodone/APAP 10-325MG [[place] 10-325] 1 tab PO Q6HR PRN PRN Reason: Pain Promethazine HCl 12.5 mg PO TID PRN PRN Reason: Nausea Discharge Medication List Albuterol Inhaler [Ventolin Hfa Inhaler] 1 - 2 puff INHALATION RT-Q6H PRN [History] Albuterol Nebulized [Ventolin Nebulized] 2.5 mg INHALATION RT-QID PRN 08/31/16 [ History] Gabapentin [Neurontin] 800 mg PO QID 08/31/16 [History] amLODIPine [Norvasc] 10 mg PO DAILY 02/18/18 [History] Famotidine [Pepcid] 20 mg PO BID #20 tablet 03/16/18 [Rx] HYDROcodone/APAP 10-325MG [[place] 10-325] 1 tab PO Q6HR PRN 03/25/18 [History] Promethazine HCl 12.5 mg PO TID PRN 03/25/18 [History] Follow up Appointment(s)/Referral(s): Tj Rodriguez MD [STAFF PHYSICIAN] - 1 Week Discharge Disposition: Left Against Medical Advice
== END 2018-03-26 18:21 | disposition left against medical advice (07) ==
LOC: EC 19:50 → 6SEL 23:12
PROVIDERS: ADMIT Hospitalist; ATTEND Hospitalist
DX: R07.89 Other chest pain (principal); R10.12 Left upper quadrant pain; K86.89 Other specified diseases of pancreas; R79.89 Other specified abnormal findings of blood chemistry; M06.9 Rheumatoid arthritis, unspecified; K21.9 Gastro-esophageal reflux disease without esophagitis; J44.9 Chronic obstructive pulmonary disease, unspecified; I10 Essential (primary) hypertension; M19.90 Unspecified osteoarthritis, unspecified site; G43.909 Migraine, unspecified, not intractable, without status migrainosus; N28.1 Cyst of kidney, acquired; D64.9 Anemia, unspecified; Z79.899 Other long term (current) drug therapy; F17.200 Nicotine dependence, unspecified, uncomplicated; Z90.721 Acquired absence of ovaries, unilateral; Z90.49 Acquired absence of other specified parts of digestive tract; Z90.89 Acquired absence of other organs; Z98.1 Arthrodesis status; Z87.81 Personal history of (healed) traumatic fracture; Z86.19 Personal history of other infectious and parasitic diseases; Z87.19 Personal history of other diseases of the digestive system; Z86.73 Personal history of transient ischemic attack (TIA), and cerebral infarction without residual deficits; Z81.1 Family history of alcohol abuse and dependence; Z80.0 Family history of malignant neoplasm of digestive organs; Z82.49 Family history of ischemic heart disease and other diseases of the circulatory system; Z80.1 Family history of malignant neoplasm of trachea, bronchus and lung; Z80.3 Family history of malignant neoplasm of breast; Z82.3 Family history of stroke
CPT/HCPCS: 99285 ×2; 96374 ×2; 96376; 96375; 36415; 93005; 93306; 93351; 85379; 83880; 80061; 80053 ×2; 85652; 82150; 82550; 82553; 83690 ×2; 83735; 84484 ×2; 85025; 85610; 85730; 86140; 71046; 76705; 71275; 74176; G0378 ×2; J2270 ×2; J1885; Q9967

== ENCOUNTER 2018-04-13 16:06 | Observation (INO) | payer BC ==
[2018-04-13] MEDS ORDERED: SUCRALFATE 1 GM TAB PO STA (16:27)
[2018-04-13] MEDS ORDERED: FAMOTIDINE 20 MG/2 ML VIAL IV STA (16:27)
[2018-04-13] MEDS ORDERED: MAG HYDROX/AL HYDROX/SIMETH 30 ML CUP PO PRN (16:27)
[2018-04-13] MEDS ORDERED: LIDOCAINE VISCOUS 2% 15 ML CUP MUCOUS MEM ONE (16:27)
[2018-04-13] MEDS ORDERED: ONDANSETRON 4 MG/2 ML VIAL IVP STA ×2 (16:27→19:40)
[2018-04-13] MEDS ORDERED: SODIUM CHLORIDE 0.9% 1,000 ML IV ONE ×2 (16:27→20:43)
--- NOTE | 2018-04-13 16:40 | ED ---
Abdominal Pain HPI - General Chief Complaint: Abdominal Pain Stated Complaint: Abd pain Time Seen by Provider: 04/13/18 16:21 Source: patient Mode of arrival: wheelchair Limitations: no limitations - History of Present Illness Initial Comments: Patient is a 62-year-old female with a history of idiopathic pancreatitis and several recent visits who presents with a chief complaint of abdominal pain. Patient states visiting for about 3 days. Patient states that her pain is getting worse progressively. She states that she takes [place] at home for pain but isn't able to keep it down. Patient cannot identify an inciting incident to her pain. There are no aggravating or alleviating factors. Patient admits to nausea, vomiting, and diarrhea. She denies fevers, chest pain, shortness of breath or dysuria. - Related Data Home Medications Medication Instructions Recorded Confirmed Albuterol Inhaler [Ventolin Hfa 1 - 2 puff INHALATION RT-Q6H PRN 07/15/16 Inhaler] Albuterol Nebulized [Ventolin 2.5 mg INHALATION RT-QID PRN 08/31/16 03/25/18 Nebulized] Gabapentin [Neurontin] 800 mg PO QID 08/31/16 03/25/18 amLODIPine [Norvasc] 10 mg PO DAILY 02/18/18 03/25/18 HYDROcodone/APAP 10-325MG [[place] 1 tab PO Q6HR PRN 03/25/18 03/25/18 10-325] Promethazine HCl 12.5 mg PO TID PRN 03/25/18 03/25/18 Previous Rx's Medication Instructions Recorded Famotidine [Pepcid] 20 mg PO BID #20 tablet 03/16/18 Allergies Allergy/AdvReac Type Severity Reaction Status Date / Time No Known Allergies Allergy Verified 04/13/18 16:12 Review of Systems ROS Statement: Those systems with pertinent positive or pertinent negative responses have been documented in the HPI. ROS Other: All systems not noted in ROS Statement are negative. Gastrointestinal: Reports: abdominal pain, nausea, vomiting, diarrhea Past Medical History Past Medical History: COPD, CVA/TIA, GERD/Reflux, Hypertension, Osteoarthritis ( OA), Rheumatoid Arthritis (RA) Additional Past Medical History / Comment(s): Pt recently admitted to [facility] on with colitis/sepsis/R renal cyst. Other hx: Recurrent pancreatitis, bronchitis, TIA, anemia-unknown cause, migraines, ostoeporosis, past R femur fracture with surgery., History of Any Multi-Drug Resistant Organisms: None Reported Past Surgical History: Appendectomy, Back Surgery, Cholecystectomy, Orthopedic Surgery, Tonsillectomy Additional Past Surgical History / Comment(s): Pancreatic stents-since removed, 6 back surgeries with 2 fusions, right oophorectomy due to ectopic , EGD/colonoscopy, right leg alice inserted d/t fracture, Past Anesthesia/Blood Transfusion Reactions: No Reported Reaction Additional Past Anesthesia/Blood Transfusion Reaction / Comment(s): Pt has received blood in past without reaction. Past Psychological History: No Psychological Hx Reported Smoking Status: Current every day smoker Past Alcohol Use History: None Reported Past Drug Use History: None Reported - Past Family History Father Family Medical History: Cancer, Liver Disease Additional Family Medical History / Comment(s): Father was an alcoholic. He from lung/ liver cancer. Mother Family Medical History: Cancer, CVA/TIA, Hypertension Additional Family Medical History / Comment(s): Mother had breast and colon cancer. She of liver cancer at the age of 78 yrs. General Exam Limitations: no limitations General appearance: alert, in no apparent distress Head exam: Present: atraumatic, normocephalic Eye exam: Present: normal appearance, PERRL ENT exam: Present: normal exam Neck exam: Present: normal inspection. Absent: tenderness Respiratory exam: Present: normal lung sounds bilaterally. Absent: respiratory distress, wheezes Cardiovascular Exam: Present: regular rate, normal rhythm GI/Abdominal exam: Present: soft, tenderness (Epigastric tenderness.). Absent: distended Rectal exam: Present: deferred Extremities exam: Present: normal inspection Back exam: Present: normal inspection. Absent: CVA tenderness (R), CVA tenderness (L) Neurological exam: Present: alert, oriented X3 Psychiatric exam: Present: normal affect, normal mood Skin exam: Present: warm, dry, intact Course Vital Signs 04/13/18 04/13/18 16:10 19:15 Temperature 98.3 F Pulse Rate 94 72 Respiratory 18 18 Rate Blood Pressure 148/93 149/87 O2 Sat by Pulse 98 97 Oximetry Medical Decision Making - Medical Decision Making Patient presents with a chief complaint abdominal pain. On initial evaluation, vitals are stable, patient is in no acute distress. Review of recent visits shows that patient has multiple visits for the same. She has a history of idiopathic pancreatitis. MAPS was reviewed. within the last month, patient has received prescriptions for norco, tramadol and virtussin AC. patient given morphine, zofran, IVF, and a GI cocktail in the ED. recent CT scan performed in mid March shows no acute process. at this time, given patients vital signs and localized epigastric tenderness, I do not think repeat CT imaging is warranted. Patient will have an acute abdominal series to r/o obstructive pattern and perforation. 8:50 PM Evaluation of this patient is unremarkable. Lipase is 104. Patient is showing some signs of dehydration. Patient given multiple rounds of antiemetics and pain medication. Acute abdominal series shows a nonobstructive bowel gas pattern without evidence of free air. Patient given a by mouth challenge, she threw up again and is still complaining of nausea. Urinalysis shows evidence of infection. Patient given a dose of Rocephin. Case discussed with Dr. Hager who accepts admission for observation and symptom control. Patient made nothing by mouth, she was given another bolus of fluid and started on a rate of 125. Patient now given Benadryl and Reglan. - Lab Data Result diagrams: 04/13/18 16:50 04/13/18 16:50 Lab Results 04/13/18 04/13/18 04/13/18 Range/Units 16:50 16:50 19:15 WBC 8.4 (3.8-10.6) k/uL RBC 5.29 (3.80-5.40) m/uL Hgb 14.8 (11.4-16.0) gm/dL Hct 45.4 (34.0-46.0) % MCV 85.8 (80.0-100.0) fL MCH 27.9 (25.0-35.0) pg MCHC 32.6 (31.0-37.0) g/dL RDW 14.7 (11.5-15.5) % Plt Count 452 H (150-450) k/uL Neutrophils % 63 % Lymphocytes % 28 % Monocytes % 5 % Eosinophils % 3 % Basophils % 0 % Neutrophils # 5.2 (1.3-7.7) k/uL Lymphocytes # 2.4 (1.0-4.8) k/uL Monocytes # 0.4 (0-1.0) k/uL Eosinophils # 0.2 (0-0.7) k/uL Basophils # 0.0 (0-0.2) k/uL Sodium 140 (137-145) mmol/L Potassium 4.3 (3.5-5.1) mmol/L Chloride 111 H (98-107) mmol/L Carbon Dioxide 19 L (22-30) mmol/L Anion Gap 10 mmol/L BUN 17 (7-17) mg/dL Creatinine 0.80 (0.52-1.04) mg/dL Est GFR (CKD-EPI)AfAm >90 (>60 ml/min/1.73 sqM) Est GFR (CKD-EPI)NonAf 80 (>60 ml/min/1.73 sqM) Glucose 114 H (74-99) mg/dL Calcium 10.1 (8.4-10.2) mg/dL Total Bilirubin 0.4 (0.2-1.3) mg/dL AST 19 (14-36) U/L ALT 26 (9-52) U/L Alkaline Phosphatase 92 (38-126) U/L Total Protein 7.8 (6.3-8.2) g/dL Albumin 4.6 (3.5-5.0) g/dL Lipase 104 (23-300) U/L Urine Color Yellow Urine Appearance Cloudy H (Clear) Urine pH 5.5 (5.0-8.0) Ur Specific [place] 1.014 (1.001-1.035) Urine Protein Trace H (Negative) Urine Glucose (UA) Negative (Negative) Urine Ketones Negative (Negative) Urine Blood Small H (Negative) Urine Nitrite Negative (Negative) Urine Bilirubin Negative (Negative) Urine Urobilinogen <2.0 (<2.0) mg/dL Ur Leukocyte Esterase Large H (Negative) Urine RBC 2 (0-5) /hpf Urine WBC 18 H (0-5) /hpf Ur Squamous Epith Cells 10 H (0-4) /hpf Urine Bacteria Occasional H (None) /hpf Urine Mucus Rare H (None) /hpf Disposition Clinical Impression: Dehydration, Abdominal pain, Intractable nausea and vomiting Disposition: ADMITTED IP TO THIS HOSP Referrals: Reyes Russ MD [Primary Care Provider] - 1-2 days Decision to Admit Reason: Admit from EC - Out of Hospital Transfer - Req. Specs Out of Hospital Transfer - Requested Specifics: Other Non-Acute
[2018-04-13 17:09] LABS: Basophils % (A) 0 %; Eosinophils # (A) 0.2 k/uL (0-0.7); Eosinophils % (A) 3 %; HCT 45.4 % (34.0-46.0); HGB 14.8 gm/dL (11.4-16.0); Lymphocytes # (A) 2.4 k/uL (1.0-4.8); Lymphocytes % (A) 28 %; MCH 27.9 pg (25.0-35.0); MCHC 32.6 g/dL (31.0-37.0); MCV 85.8 fL (80.0-100.0); Mean Platelet Volume 6.6; Monocytes # (A) 0.4 k/uL (0-1.0); Monocytes % (A) 5 %; Neutrophils # (A) 5.2 k/uL (1.3-7.7); Neutrophils % (A) 63 %; Platelet Count 452 k/uL (150-450); RBC 5.29 m/uL (3.80-5.40); RDW 14.7 % (11.5-15.5); WBC 8.4 k/uL (3.8-10.6)
[2018-04-13 17:20] LABS: ALT 26 U/L (9-52); AST 19 U/L (14-36); Albumin 4.6 g/dL (3.5-5.0); Alkaline Phosphatase 92 U/L (38-126); Anion Gap 10 mmol/L; Blood Urea Nitrogen 17 mg/dL (7-17); Calcium 10.1 mg/dL (8.4-10.2); Carbon Dioxide 19 mmol/L (22-30); Chloride 111 mmol/L (98-107); Glucose 114 mg/dL (74-99); Lipase 104 U/L (23-300); Potassium 4.3 mmol/L (3.5-5.1); Sodium 140 mmol/L (137-145); Total Bilirubin 0.4 mg/dL (0.2-1.3); Total Protein 7.8 g/dL (6.3-8.2)
[2018-04-13] MEDS ORDERED: MORPHINE SULFATE 4 MG/ML SYRINGE IVP STA ×2 (17:35→19:40)
--- NOTE | 2018-04-13 18:42 | XR ---
EXAMINATION TYPE: XR abdomen acute w cxr DATE OF EXAM: 04/13/2018 COMPARISON: 03/25/2018 HISTORY: Pain TECHNIQUE: Acute abdominal series performed with supine and upright views of the abdomen supplemented with a frontal chest. FINDINGS: Heart size is normal. No suspicious infiltrates are evident. No free air is under the diaph ragm. Fixation rods and pedicle screws are present L2-L5. Nonspecific bowel gas is present. No free air is evident. Suspicious differential air-fluid levels ar e not evident. Couple of nonspecific small bowel loops with air-fluid levels may be present in the le ft midabdomen and right lower quadrant. Colonic bowel gas not clearly identified Cholecystectomy clips are in the right upper quadrant. Psoas margins are normal. Organomegaly is not evident. IMPRESSION: 1. Nonspecific acute abdominal series.
[2018-04-13 20:06] LABS: Appearance,Urine Cloudy (Clear); Bacteria,Urine Occasional /hpf; Bilirubin,Urine Negative (Negative); Blood,Urine Small (Negative); Color,Urine Yellow; Glucose,Urine (UA) Negative (Negative); Ketones,Urine Negative (Negative); Leukocyte Esterase,Urine Large (Negative); Mucus,Urine Rare /hpf; Nitrite,Urine Negative (Negative); PH, Urine 5.5 (5.0-8.0); Protein,Urine Trace (Negative); RBC,Urine 2 /hpf (0-5); Specific Gravity,Urine 1.014 (1.001-1.035); Squamous Epithelial Cell,Urine 10 /hpf (0-4); Urobilinogen,Urine <2.0 mg/dL (<2.0); WBC,Urine 18 /hpf (0-5)
[2018-04-13] MEDS ORDERED: METOCLOPRAMIDE 5 MG/ML 2 ML VIAL IVP STA (20:35)
[2018-04-13] MEDS ORDERED: diphenhydrAMINE 50 MG/ML 1 ML VIAL IVP STA (20:35)
[2018-04-13] MEDS ORDERED: NALOXONE 0.4 MG/ML 1 ML VIAL IV PRN (20:46)
[2018-04-13] MEDS ORDERED: HYDROcodone/APAP 5-325MG 1 EACH TAB PO PRN (20:46)
[2018-04-13] MEDS: SODIUM CHLORIDE 0.9% 1,000 ML IV SCH ×2 (20:50→23:41)
[2018-04-13] MEDS ORDERED: cefTRIAXone IN SWFI 1,000 MG/10 ML SYRINGE IVP SCH (21:00)
[2018-04-13] MEDS ORDERED: cefTRIAXone IN SWFI 1,000 MG/10 ML SYRINGE IVP ONE (21:00)
[2018-04-13 21:59] VITALS: BMI 21.0
[2018-04-13] MEDS: MORPHINE SULFATE 4 MG/ML SYRINGE IV PRN (23:35)
[2018-04-14 00:48] LABS: Amphetamine Screen,Urine Not Detected (NotDetected); Barbiturate Screen,Urine Not Detected (NotDetected); Benzodiazepines Screen,Urine Not Detected (NotDetected); Cocaine Screen,Urine Not Detected (NotDetected); Methadone Screen, Urine Not Detected (NotDetected); Opiate Screen,Urine Not Detected (NotDetected); Oxycodone Screen, Urine Not Detected (NotDetected); Phencyclidine Screen,Urine Not Detected (NotDetected); Tricyclic Antidepressant,Urine Not Detected (NotDetected); Urn Cannabinoid Scrn Not Detected (NotDetected)
--- NOTE | 2018-04-14 01:12 | P.HPIM ---
History of Present Illness H&P Date: 04/13/18 Chief Complaint: Intractable nausea and vomiting The patient is a 62-year-old female with a history of cholecystectomy and recurrent idiopathic pancreatitis that presented with moderate epigastric nonradiating abdominal pain with associated symptoms of non-bloody bilious emesis and nausea over the last 3 days. The patient denies any alcohol use, she denies any diarrhea or constipation. The patient is complaining that she is unable to keep down any of her medications or any liquids such as water or emily nick. The patient denies any dysuria or flank pain, frequency urgency or suprapubic tenderness. The patient has previously been seen here by GI doctor Amber is had had prior workup including CT abdomen and pelvis and MRCP imaging re-demonstrating chronic dilation of intra-and extrahepatic biliary ducts. The patient reports that she had a endoscopic ultrasound done at [facility] which showed severe biliary dilatation, she is unable to recall the name of the physician but she did state that it was recommended that she follow up with Dr. Clark and she apparently had an appointment on 04/10/18 but it was cancelled and rescheduled for the end of the month. In the ER the patient had a comprehensive workup including acute abdominal series that was negative, she was given antiemetics, IV fluids and was subsequently recommended for admission after failing several oral fluid challenges Review of Systems RoS with pertinent positive or pertinent negative responses have been documented in the HPI. ROS Other: All systems not noted in ROS Statement are negative Past Medical History Past Medical History: COPD, CVA/TIA, GERD/Reflux, Hypertension, Osteoarthritis ( OA), Rheumatoid Arthritis (RA) Additional Past Medical History / Comment(s): Pt recently admitted to [facility] on with colitis/sepsis/R renal cyst. Other hx: Recurrent pancreatitis, bronchitis, TIA, anemia-unknown cause, migraines, ostoeporosis, past R femur fracture with surgery., History of Any Multi-Drug Resistant Organisms: None Reported Past Surgical History: Appendectomy, Back Surgery, Cholecystectomy, Orthopedic Surgery, Tonsillectomy Additional Past Surgical History / Comment(s): Pancreatic stents-since removed, 6 back surgeries with 2 fusions, right oophorectomy due to ectopic , EGD/colonoscopy, right leg alice inserted d/t fracture, Past Anesthesia/Blood Transfusion Reactions: No Reported Reaction Additional Past Anesthesia/Blood Transfusion Reaction / Comment(s): Pt has received blood in past without reaction. Smoking Status: Current every day smoker - Past Family History Father Family Medical History: Cancer, Liver Disease Additional Family Medical History / Comment(s): Father was an alcoholic. He from lung/ liver cancer. Mother Family Medical History: Cancer, CVA/TIA, Hypertension Additional Family Medical History / Comment(s): Mother had breast and colon cancer. She of liver cancer at the age of 78 yrs. Medications and Allergies Home Medications Medication Instructions Recorded Confirmed Type Albuterol Inhaler [Ventolin Hfa 1 - 2 puff INHALATION RT-Q6H PRN 07/15/16 History Inhaler] Albuterol Nebulized [Ventolin 2.5 mg INHALATION RT-QID PRN 08/31/16 03/25/18 History Nebulized] Gabapentin [Neurontin] 800 mg PO QID 08/31/16 03/25/18 History amLODIPine [Norvasc] 10 mg PO DAILY 02/18/18 03/25/18 History Famotidine [Pepcid] 20 mg PO BID #20 tablet 03/16/18 03/25/18 Rx HYDROcodone/APAP 10-325MG [[place] 1 tab PO Q6HR PRN 03/25/18 03/25/18 History 10-325] Promethazine HCl 12.5 mg PO TID PRN 03/25/18 03/25/18 History Allergies Allergy/AdvReac Type Severity Reaction Status Date / Time No Known Allergies Allergy Verified 04/13/18 16:12 Physical Exam Vitals: Vital Signs Temp Pulse Pulse Resp BP BP Pulse Ox 04/13/18 21:45 97.7 F 54 L 18 115/61 04/13/18 20:53 97.8 F 68 18 153/76 98 04/13/18 19:15 72 18 149/87 97 04/13/18 16:10 98.3 F 94 18 148/93 98 Intake and Output 04/13/18 04/13/18 04/13/18 06:59 14:59 22:59 Other: Weight 60.9 kg Constitutional: No acute distress, conversant, pleasant Eyes: Anicteric sclerae, moist conjunctiva, no lid-lag, PERRLA ENMT: NC/AT,Oropharynx clear, no erythema, exudates Neck:Supple, FROM, no masses, or JVD, No carotid bruits; No thyromegaly Lungs: Clear to auscultation, Clear to percussion, Normal respiratory effort, no accessory muscle use Cardiovascular: Heart regular in rate and rhythm, No murmurs, gallops, or rubs no peripheral edema Abdominal: Soft tender to palpation in the midepigastrium, nom distended, no guarding, no rebound or rigidity, Normoactive bowel sounds No hepatomegaly, No splenomegaly, No palpable mass No abdominal wall hernia noted Skin: Normal temperature, tone, texture, turgor, No induration No subcutaneous nodules, No rash, lesions, No ulcers Extremities:No digital cyanosis No clubbing, Pedal pulses intact and symmetrical Radial pulses intact and symmetrical Normal gait and station, No calf tenderness Psychiatric: Alert and oriented to person, place and time, Appropriate affect Intact judgement Neuro: Muscles Strength 5/5 in all 4 extremities, Sensation to light touch grossly present throughout, Cranial nerves II-XII grossly intact. No focal sensory deficits Results CBC & Chem 7: 04/13/18 16:50 04/13/18 16:50 Labs: Abnormal Lab Results - Last 24 Hours (Table) 04/13/18 04/13/18 04/13/18 Range/Units 16:50 16:50 19:15 Plt Count 452 H (150-450) k/uL Chloride 111 H (98-107) mmol/L Carbon Dioxide 19 L (22-30) mmol/L Glucose 114 H (74-99) mg/dL Urine Appearance Cloudy H (Clear) Urine Protein Trace H (Negative) Urine Blood Small H (Negative) Ur Leukocyte Esterase Large H (Negative) Urine WBC 18 H (0-5) /hpf Ur Squamous Epith Cells 10 H (0-4) /hpf Urine Bacteria Occasional H (None) /hpf Urine Mucus Rare H (None) /hpf MRI - abdomen: report reviewed ( MRI pancreas completed results discussed with patient; moderate biliary and pancreatic duct dilatation without obstructing mass stricture clearly seen. Etiology unclear. Scattered calcifications throughout the pancreas slightly atrophic in appearance.) Assessment and Plan (1) Intractable nausea and vomiting Current Visit: Yes Status: Acute Code(s): R11.2 - NAUSEA WITH VOMITING, UNSPECIFIED SNOMED Code(s): 440748145 (2) Dehydration Current Visit: Yes Status: Acute Code(s): E86.0 - DEHYDRATION SNOMED Code( s): 05213505 (3) COPD (chronic obstructive pulmonary disease) Current Visit: No Status: Acute Code(s): J44.9 - CHRONIC OBSTRUCTIVE PULMONARY DISEASE, UNSPECIFIED SNOMED Code(s): 53704134 (4) HTN (hypertension) Current Visit: No Status: Acute Code(s): I10 - ESSENTIAL (PRIMARY) HYPERTENSION SNOMED Code(s): 16816023 (5) Dilation of common bile duct Current Visit: Yes Status: Acute Code(s): K83.8 - OTHER SPECIFIED DISEASES OF BILIARY TRACT SNOMED Code(s): 710715030 (6) History of pancreatitis Current Visit: Yes Status: Acute Code(s): Z87.19 - PERSONAL HISTORY OF OTHER DISEASES OF THE DIGESTIVE SYSTEM SNOMED Code(s): 72435672753557 Plan: The patient is placed on observation anticipated less than 2 midnight stay with intractable nausea and vomiting in a patient with recurrent idiopathic pancreatitis who has had a significant workup including repeat CT abdomen and pelvis and MRCP showing chronic intrahepatic and extrahepatic biliary duct dilatation. Unlikely to be acute pancreatitis is patient's lipase is normal, she is initiated on IV fluids made nothing by mouth and initiated on narcotics. We'll plan to consult GI for further recommendations. Patient not having any symptoms of UTI likely asymptomatic bacteriuria we'll plan to DC antibiotics and await further recommendations. Continue to follow her clinical course
[2018-04-14] MEDS: MORPHINE SULFATE 4 MG/ML SYRINGE IV PRN ×5 (03:42→20:12)
[2018-04-14 07:02] LABS: Basophils % (A) 0 %; Eosinophils # (A) 0.2 k/uL (0-0.7); Eosinophils % (A) 4 %; HCT 35.8 % (34.0-46.0); Lymphocytes # (A) 2.2 k/uL (1.0-4.8); Lymphocytes % (A) 38 %; MCH 28.2 pg (25.0-35.0); MCHC 31.9 g/dL (31.0-37.0); MCV 88.2 fL (80.0-100.0); Mean Platelet Volume 6.7; Monocytes # (A) 0.4 k/uL (0-1.0); Monocytes % (A) 7 %; Neutrophils # (A) 2.9 k/uL (1.3-7.7); Neutrophils % (A) 49 %; Platelet Count 338 k/uL (150-450); RBC 4.06 m/uL (3.80-5.40); RDW 14.8 % (11.5-15.5); WBC 5.9 k/uL (3.8-10.6)
[2018-04-14 07:05] LABS: HGB 11.4 gm/dL (11.4-16.0)
[2018-04-14 07:14] LABS: ALT 21 U/L (9-52); AST 13 U/L (14-36); Albumin 3.1 g/dL (3.5-5.0); Alkaline Phosphatase 63 U/L (38-126); Anion Gap 2 mmol/L; Blood Urea Nitrogen 12 mg/dL (7-17); Calcium 8.5 mg/dL (8.4-10.2); Carbon Dioxide 21 mmol/L (22-30); Chloride 118 mmol/L (98-107); Glucose 95 mg/dL (74-99); Lipase 101 U/L (23-300); Potassium 3.9 mmol/L (3.5-5.1); Sodium 141 mmol/L (137-145); Total Bilirubin 0.3 mg/dL (0.2-1.3); Total Protein 5.4 g/dL (6.3-8.2)
[2018-04-14] MEDS: SODIUM CHLORIDE 0.9% 1,000 ML IV SCH (08:00)
[2018-04-14] MEDS ORDERED: ALBUTEROL NEBULIZED 2.5 MG/3 ML INHALATION PRN (09:30)
--- NOTE | 2018-04-14 09:49 | P.PN ---
Subjective Progress Note Date: 04/14/18 Principal diagnosis: abdominal pain Patient is a 62-year-old female with a past medical history of recurrent idiopathic pancreatitis, COPD, GERD, and hypertension who presented with complaints of epigastric pain. In the ER she underwent an evaluation. Her initial vital signs were within normal limits. Initial laboratory analysis showed a slightly elevated platelet count at 452. Acidosis with a carbon dioxide of 19. Urinalysis was negative and urine drug screen was unremarkable. She was started on fluids, antiemetics, pain control, and was made nothing by mouth. She is admitted to the general medical floor for further monitoring and care. Examined at bedside. No chest pain, states belly pain is still there and is not adequately controlled. No nausea or vomiting. Despite complaining of belly pain she feels her diet could be increased. We discussed the fact that if her EUS is negative she may have more of a functional abdominal pain syndrome and may benefit from something such as Bentyl or Elavil being started. As her last to admission she has had a normal lipase. We did not repeat a CAT scan this admission as last admission she had a normal CAT scan. Objective - Vital Signs Vital signs: Vital Signs Temp 98.6 F 04/14/18 07:43 Pulse 60 04/14/18 08:00 Resp 16 04/14/18 07:43 BP 124/63 04/14/18 07:43 Pulse Ox 96 04/14/18 07:43 Intake & Output 04/13/18 04/14/18 04/14/18 18:59 06:59 18:59 Output Total 250 125 Balance -250 -125 Weight 60.781 kg 60.9 kg Output: Urine 250 125 Other: Voiding Method Toilet Toilet # Voids 2 - Exam General: Ill appearing, no distress, appears at stated age Derm: warm, dry Head: atraumatic, normocephalic, symmetric Eyes: EOMI, no lid lag, anicteric sclera Mouth: no lip lesion, mucus membranes moist Cardiovascular: S1S2 reg, no murmur, positive posterior tibial pulse bilateral, Lungs: Wheezes bilaterally, no accessory muscle use Abdominal: soft, + tenderness to palpation epigastric, no guarding, no appreciable organomegaly Ext: no gross muscle atrophy, no edema, no contractures Neuro: CN II-XI grossly intact, no focal neuro deficits Psych: Alert, oriented, appropriate affect - Labs CBC & Chem 7: 04/14/18 06:40 04/14/18 06:40 Labs: Abnormal Lab Results - Last 24 Hours (Table) 04/13/18 04/13/18 04/13/18 Range/Units 16:50 16:50 19:15 Plt Count 452 H (150-450) k/uL Chloride 111 H (98-107) mmol/L Carbon Dioxide 19 L (22-30) mmol/L Glucose 114 H (74-99) mg/dL AST (14-36) U/L Total Protein (6.3-8.2) g/dL Albumin (3.5-5.0) g/dL Urine Appearance Cloudy H (Clear) Urine Protein Trace H (Negative) Urine Blood Small H (Negative) Ur Leukocyte Esterase Large H (Negative) Urine WBC 18 H (0-5) /hpf Ur Squamous Epith Cells 10 H (0-4) /hpf Urine Bacteria Occasional H (None) /hpf Urine Mucus Rare H (None) /hpf 04/14/18 Range/Units 06:40 Plt Count (150-450) k/uL Chloride 118 H (98-107) mmol/L Carbon Dioxide 21 L (22-30) mmol/L Glucose (74-99) mg/dL AST 13 L (14-36) U/L Total Protein 5.4 L (6.3-8.2) g/dL Albumin 3.1 L (3.5-5.0) g/dL Urine Appearance (Clear) Urine Protein (Negative) Urine Blood (Negative) Ur Leukocyte Esterase (Negative) Urine WBC (0-5) /hpf Ur Squamous Epith Cells (0-4) /hpf Urine Bacteria (None) /hpf Urine Mucus (None) /hpf Assessment and Plan Assessment: Intractable nausea and vomiting with probable recurrent pancreatitis -Pain control, IV fluids, GI consult, and increased diet to clear liquids Hyperchloremic metabolic acidosis -Transition from normal saline to lactated Ringer's -Repeat electrolytes in a.m. COPD without exacerbation -Maintain as needed breathing treatments Hypertension, controlled -Resume hormone Norvasc, follow blood pressures Clinical dehydration, improved DVT prophylaxis: Lovenox Discussed with: Patient and nursing Anticipated discharge: 2-[address]: home A total of 35 minutes was spent on the care of this complex patient more than 50 % of the time was spent in counseling and care coordination.
[2018-04-14] MEDS: HYDROcodone/APAP 10-325MG 1 EACH TAB PO PRN ×3 (10:29→22:58)
[2018-04-14] MEDS: LACTATED RINGERS 1,000 ML IV SCH ×3 (10:30→20:20)
[2018-04-14] MEDS: GABAPENTIN 400 MG CAP PO SCH ×3 (11:54→21:40)
--- NOTE | 2018-04-14 21:09 | P.CONS ---
History of Present Illness - Reason for Consult Consult date: 04/14/18 Pancreatitis. - History of Present Illness The patient is a 62-year-old female with history of idiopathic pancreatitis and couple hospitalizations in March, presented with a chief complaint of abdominal pain. Pain started 3-4 days prior. Patient stated that her pain was getting worse progressively that made her come to the ER. She states that she takes [place] at home for pain but was not able to keep it down. There are no aggravating or alleviating factors. Patient admits to nausea, vomiting, and diarrhea. She denies fevers, chest pain, shortness of breath or dysuria. Patient had "stents" placed and later on removed during earlier episodes several years ago. Review of Systems Constitutional: Denied fever, chills or unintentional weight loss Neurologic: No headaches, double vision or other sensory or motor changes Cardiopulmonary: No chest pains, shortness of breath or palpitations Gastrointestinal: See present illness above Genitourinary: No hematuria, dysuria or frequency Musculoskeletal: History of RA Skin: No rashes Endocrine: No history of diabetes or thyroid disease Hematologic: No history of anemia or bleeding tendency Psychiatric: No anxiety or depression Past Medical History Past Medical History: COPD, CVA/TIA, GERD/Reflux, Hypertension, Osteoarthritis ( OA), Rheumatoid Arthritis (RA) Additional Past Medical History / Comment(s): Pt recently admitted to [facility] on with colitis/sepsis/R renal cyst. Other hx: Recurrent pancreatitis, bronchitis, TIA, anemia-unknown cause, migraines, ostoeporosis, past R femur fracture with surgery., History of Any Multi-Drug Resistant Organisms: None Reported Past Surgical History: Appendectomy, Back Surgery, Cholecystectomy, Orthopedic Surgery, Tonsillectomy Additional Past Surgical History / Comment(s): Pancreatic stents-since removed, 6 back surgeries with 2 fusions, right oophorectomy due to ectopic , EGD/colonoscopy, right leg alice inserted d/t fracture, Past Anesthesia/Blood Transfusion Reactions: No Reported Reaction Additional Past Anesthesia/Blood Transfusion Reaction / Comm: Pt has received blood in past without reaction. Smoking Status: Current every day smoker - Past Family History Father Family Medical History: Cancer, Liver Disease Additional Family Medical History / Comment(s): Father was an alcoholic. He from lung/ liver cancer. Mother Family Medical History: Cancer, CVA/TIA, Hypertension Additional Family Medical History / Comment(s): Mother had breast and colon cancer. She of liver cancer at the age of 78 yrs. Medications and Allergies Home Medications Medication Instructions Recorded Confirmed Type Albuterol Inhaler [Ventolin Hfa 1 - 2 puff INHALATION RT-Q6H PRN 07/15/16 History Inhaler] Albuterol Nebulized [Ventolin 2.5 mg INHALATION RT-QID PRN 08/31/16 04/14/18 History Nebulized] Gabapentin [Neurontin] 800 mg PO TID 08/31/16 04/14/18 History amLODIPine [Norvasc] 10 mg PO DAILY 02/18/18 04/14/18 History Famotidine [Pepcid] 20 mg PO BID #20 tablet 03/16/18 04/14/18 Rx HYDROcodone/APAP 10-325MG [[place] 1 tab PO Q6HR PRN 03/25/18 04/14/18 History 10-325] Promethazine HCl 12.5 - 25 mg PO TID PRN 03/25/18 04/14/18 History Azithromycin [Zithromax Z-pack] See Taper PO DAILY 04/14/18 04/14/18 History Allergies Allergy/AdvReac Type Severity Reaction Status Date / Time No Known Allergies Allergy Verified 04/14/18 11:42 Physical Exam Vitals: Vital Signs Temp Pulse Pulse Pulse Resp BP BP 04/14/18 14:39 97.9 F 58 L 20 160/79 04/14/18 08:00 60 04/14/18 07:43 98.6 F 60 16 124/63 04/14/18 03:45 98.1 F 70 16 127/81 04/13/18 22:00 97.7 F 54 L 18 115/61 04/13/18 21:45 97.7 F 54 L 18 115/61 04/13/18 20:53 97.8 F 68 18 153/76 Pulse Ox 04/14/18 14:39 98 04/14/18 08:00 04/14/18 07:43 96 04/14/18 03:45 96 04/13/18 22:00 96 04/13/18 21:45 04/13/18 20:53 98 Intake and Output 04/14/18 04/14/18 04/14/18 06:59 14:59 22:59 Intake Total 2160 Output Total 425 650 Balance 1735 -650 Intake: Oral 2160 Output: Urine 425 650 Other: Voiding Method Toilet Toilet # Voids 2 # Bowel Movements 1 1 General: Appears stated age, very pleasant in no acute distress Head and neck: Normocephalic and atraumatic, conjunctivae pink and sclerae not icteric, mucous membranes moist and pink, no masses in the neck or tracheal shift Lungs: Clear to auscultation with no dullness to percussion Heart: Regular, no abnormal sounds, murmurs, gallops or friction rubs Abdomen: Soft, no masses or organomegaly. Tenderness in epigastric area, no guarding or rebound. Bowel sounds present Extremities: No clubbing, cyanosis or edema Neurologic: Alert and oriented 3. Cranial nerves grossly intact. No gross sensory or motor abnormalities Results CBC & Chem 7: 04/14/18 06:40 04/14/18 06:40 Labs: Abnormal Lab Results - Last 24 Hours (Table) 04/13/18 04/14/18 Range/Units 19:15 06:40 Chloride 118 H (98-107) mmol/L Carbon Dioxide 21 L (22-30) mmol/L AST 13 L (14-36) U/L Total Protein 5.4 L (6.3-8.2) g/dL Albumin 3.1 L (3.5-5.0) g/dL Urine Appearance Cloudy H (Clear) Urine Protein Trace H (Negative) Urine Blood Small H (Negative) Ur Leukocyte Esterase Large H (Negative) Urine WBC 18 H (0-5) /hpf Ur Squamous Epith Cells 10 H (0-4) /hpf Urine Bacteria Occasional H (None) /hpf Urine Mucus Rare H (None) /hpf Assessment and Plan Assessment: Recurrent pancreatitis, idiopathic. Strictures in her ductal system or stones to be kept in mind. Plan: Agree with your current management. ERCP based on her course.
[2018-04-15] MEDS: MORPHINE SULFATE 4 MG/ML SYRINGE IV PRN ×6 (00:13→20:13)
[2018-04-15] MEDS: HYDROcodone/APAP 10-325MG 1 EACH TAB PO PRN ×4 (05:39→23:30)
[2018-04-15 07:20] LABS: HGB 11.3 gm/dL (11.4-16.0); MCH 28.9 pg (25.0-35.0); MCHC 33.1 g/dL (31.0-37.0); MCV 87.4 fL (80.0-100.0); Mean Platelet Volume 6.6; Platelet Count 320 k/uL (150-450); RBC 3.89 m/uL (3.80-5.40); RDW 14.7 % (11.5-15.5); WBC 5.8 k/uL (3.8-10.6)
[2018-04-15 07:30] LABS: ALT 22 U/L (9-52); AST 17 U/L (14-36); Albumin 3.4 g/dL (3.5-5.0); Alkaline Phosphatase 71 U/L (38-126); Anion Gap 4 mmol/L; Blood Urea Nitrogen 5 mg/dL (7-17); Calcium 9.1 mg/dL (8.4-10.2); Carbon Dioxide 24 mmol/L (22-30); Chloride 111 mmol/L (98-107); Glucose 93 mg/dL (74-99); Magnesium 1.8 mg/dL (1.6-2.3); Potassium 4.2 mmol/L (3.5-5.1); Sodium 139 mmol/L (137-145); Total Bilirubin 0.3 mg/dL (0.2-1.3); Total Protein 5.8 g/dL (6.3-8.2)
[2018-04-15] MEDS: GABAPENTIN 400 MG CAP PO SCH ×4 (08:18→21:27)
[2018-04-15] MEDS: amLODIPine 10 MG TAB PO SCH (08:35)
[2018-04-15] MEDS: LACTATED RINGERS 1,000 ML IV SCH ×2 (08:36→16:22)
[2018-04-15] MEDS: ONDANSETRON 4 MG/2 ML VIAL IVP PRN (18:25)
[2018-04-16] MEDS: MORPHINE SULFATE 4 MG/ML SYRINGE IV PRN ×3 (00:01→07:56)
[2018-04-16] MEDS: LACTATED RINGERS 1,000 ML IV SCH ×2 (06:12→11:26)
[2018-04-16] MEDS: GABAPENTIN 400 MG CAP PO SCH ×2 (07:57→13:24)
[2018-04-16] MEDS: amLODIPine 10 MG TAB PO SCH (07:57)
[2018-04-16] MEDS: ONDANSETRON 4 MG/2 ML VIAL IVP PRN (08:02)
--- NOTE | 2018-04-16 11:06 | P.PN ---
Subjective Patient has had some improvement in her abdominal discomfort. No nausea or vomiting this morning she still says that she has some discomfort in the epigastric area but is been better. She has been tolerating clear liquid diet also she reports some diarrhea overnight in form of loose to watery bowel movements several times but this has resolved this morning. REVIEW OF SYSTEMS: CONSTITUTIONAL: No fever or chills HEENT: No changes in vision or voice CARDIOVASCULAR: no chest pain or abnormal heart beats, or any swelling in ankles or feet. RESPIRATORY: No wheezing or coughing. GASTROINTESTINAL: As per subjective GENITOURINARY: no any urinary urgency, frequency or burning, and there has been no blood in her urine. no flank pain. MUSCULOSKELETAL: She notes full range of motion of all her joints without pain or swelling. NEUROLOGICAL: , no headache. no vision changes, or fainting. No numbness or tingling. Objective - Vital Signs Vital signs: Vital Signs Temp 98.6 F 04/15/18 07:00 Pulse 68 04/15/18 07:00 Resp 18 04/15/18 07:00 BP 147/79 04/15/18 07:00 Pulse Ox 97 04/15/18 07:00 Intake & Output 04/14/18 04/15/18 04/15/18 18:59 06:59 18:59 Intake Total 2160 1800 Output Total 1075 3 Balance 1085 1797 Intake: Oral 2160 1800 Output: Urine 1075 Stool 3 Other: Voiding Method Toilet # Voids 3 # Bowel Movements 1 - Exam General: No distress. Oriented x 3, normal mood and affect . Ambulating without difficulty. HEENT: Head: Normocephalic, atraumatic, no visible or palpable masses, depressions, or scaring, conjunctiva clear, sclera non-icteric, EOM intact, PERRL Oral: Mucous membranes moist, no mucosal lesions. Pharynx: Mucosa non-inflamed, no tonsillar hypertrophy or exudate Neck: Supple, without lesions, bruits, or adenopathy, thyroid non-enlarged and non-tender Heart: No cardiomegaly or thrills; regular rate and rhythm, no murmur or gallop Lungs: Clear to auscultation and percussion Abdomen: Bowel sounds normal, no tenderness, organomegaly, masses, or hernia Back: Spine normal without deformity or tenderness, no CVA tenderness Extremities: No amputations or deformities, cyanosis, edema or varicosities, peripheral pulses intact Musculoskeletal: No peripheral joint swelling, pain, erythema. No clubbing Skin: Good turgor, no rash, unusual bruising or prominent lesions Neurologic: CN 2-12 normal. Sensation to pain, touch, and proprioception normal. DTRs normal in upper and lower extremities. No pathologic reflexes. Psychiatric: Oriented X3, intact recent and remote memory, judgment and insight , normal mood and affect. - Labs CBC & Chem 7: 04/15/18 07:05 04/15/18 07:05 Labs: Abnormal Lab Results - Last 24 Hours (Table) 04/15/18 04/15/18 Range/Units 07:05 07:05 Hgb 11.3 L (11.4-16.0) gm/dL Chloride 111 H (98-107) mmol/L BUN 5 L (7-17) mg/dL Total Protein 5.8 L (6.3-8.2) g/dL Albumin 3.4 L (3.5-5.0) g/dL Assessment and Plan (1) Abdominal pain Narrative/Plan: This is felt to be due to hepatobiliary pathology and possible underlying pancreatitis [employer] Att[employer] following Clinically seems to be improving and patient name express interest with further eval by gastroenterology for ERCP She is going to try full liquid diet for lunch Continue other supportive measures and awaiting further GI input Current Visit: Yes Status: Acute Code(s): R10.9 - UNSPECIFIED ABDOMINAL PAIN SNOMED Code(s): 46074253 (2) Dehydration Narrative/Plan: Currently appears euvolemic Continue IV fluids and adjust as by mouth intake changes Current Visit: Yes Status: Acute Code(s): E86.0 - DEHYDRATION SNOMED Code( s): 23615967 (3) Dilation of common bile duct Narrative/Plan: This is a chronic condition with history of stent placement and removal Gastroenterology is following, contemplating ERCP Current Visit: Yes Status: Acute Code(s): K83.8 - OTHER SPECIFIED DISEASES OF BILIARY TRACT SNOMED Code(s): 653984834 Time with Patient: Greater than 30
--- NOTE | 2018-04-16 11:06 | P.PN ---
Subjective Did not tolerated FLD last night, reported worsening epigastric pain and nausea , no vomiting. No fever, chills, diarrhea, neville pain or SOB. Per nursing staff pt was able to eat some of the food without difficulties Objective - Vital Signs Vital signs: Vital Signs Temp 98.8 F 04/16/18 08:06 Pulse 62 04/16/18 08:06 Resp 16 04/16/18 08:06 BP 152/75 04/16/18 08:06 Pulse Ox 98 04/16/18 08:06 Intake & Output 04/15/18 04/16/18 04/16/18 18:59 06:59 18:59 Other: # Voids 2 1 - Exam General: No distress. Oriented x 3, normal mood and affect . Ambulating without difficulty. HEENT: Head: Normocephalic, atraumatic, no visible or palpable masses, depressions, or scaring, conjunctiva clear, sclera non-icteric, EOM intact, PERRL Oral: Mucous membranes moist, no mucosal lesions. Neck: Supple, without lesions, bruits, or adenopathy, thyroid non-enlarged and non-tender Heart: regular rate and rhythm, no murmur or gallop Lungs: Clear to auscultation and percussion Abdomen: Bowel sounds normal, epigastric tenderness without involuntary guarding or rebound, no organomegaly, masses, or hernia Back: Spine normal without deformity or tenderness, no CVA tenderness Extremities: No amputations or deformities, cyanosis, edema or varicosities, peripheral pulses intact Musculoskeletal: No peripheral joint swelling, pain, erythema. No clubbing Skin: Good turgor, no rash, unusual bruising or prominent lesions Neurologic: CN 2-12 normal. Sensation to pain, touch, and proprioception normal. DTRs normal in upper and lower extremities. No pathologic reflexes. Psychiatric: Oriented X3, normal mood and affect. - Labs CBC & Chem 7: 04/15/18 07:05 04/15/18 07:05 Assessment and Plan (1) Abdominal pain Narrative/Plan: This is felt to be due to hepatobiliary pathology and possible underlying pancreatitis Downgrade diet to clear liquids Increase IV fluids Gastroenterology to evaluate for possible need for ERCP Current Visit: Yes Status: Acute Code(s): R10.9 - UNSPECIFIED ABDOMINAL PAIN SNOMED Code(s): 72616531 (2) Dehydration Narrative/Plan: Currently appears euvolemic Continue IV fluids Mild hyperchloremia has been improving Continue LR Current Visit: Yes Status: Acute Code(s): E86.0 - DEHYDRATION SNOMED Code( s): 59339836 (3) Dilation of common bile duct Narrative/Plan: Gastroenterology to evaluate for possible ERCP Current Visit: Yes Status: Acute Code(s): K83.8 - OTHER SPECIFIED DISEASES OF BILIARY TRACT SNOMED Code(s): 413321267
[2018-04-16] MEDS: HYDROcodone/APAP 10-325MG 1 EACH TAB PO PRN ×2 (11:25→17:38)
--- NOTE | 2018-04-16 12:02 | P.PN ---
Subjective Progress Note Date: 04/16/18 Principal diagnosis: Abdominal pain history of idiopathic pancreatitis Still reports abdominal pain. Afebrile. Pancreatic enzymes within normal limits. LFTs unremarkable. Objective - Vital Signs Vital signs: Vital Signs Temp 98.8 F 04/16/18 08:06 Pulse 62 04/16/18 08:06 Resp 16 04/16/18 08:06 BP 152/75 04/16/18 08:06 Pulse Ox 98 04/16/18 08:06 Intake & Output 04/15/18 04/16/18 04/16/18 18:59 06:59 18:59 Other: # Voids 2 1 - Exam General appearance: The patient is alert, oriented, in no acute distress. HET: Head is normocephalic and atraumatic. Pupils are equal and reactive. Oropharynx is clear without lesions. Neck: Supple without lymphadenopathy. Trachea midline. Heart: S1 S2. Regular rate and rhythm. Lungs: No crackles or wheezes are heard. Abdomen: Soft, mild midepigastric tenderness, nondistended with bowel sounds. No peritoneal signs. No palpable organomegaly or masses. Extremities: Normal skin color and turgor. No cyanosis, rash, ulceration, clubbing, or edema. Radial and pedal pulses are 2/4 bilaterally. Neurological: No focal deficits. Strength and sensation are grossly intact. - Labs CBC & Chem 7: 04/15/18 07:05 04/15/18 07:05 Assessment and Plan (1) History of pancreatitis Current Visit: Yes Status: Acute Code(s): Z87.19 - PERSONAL HISTORY OF OTHER DISEASES OF THE DIGESTIVE SYSTEM SNOMED Code(s): 71253980543720 (2) Abdominal pain Current Visit: Yes Status: Acute Code(s): R10.9 - UNSPECIFIED ABDOMINAL PAIN SNOMED Code(s): 98951980 Plan: 1. Patient recently underwent EUS at tertiary care center results are not available at this time. We'll request EUS report for review. 2. Inpatient ERCP not advise at this time; LFTs within normal limits. Per patient tentative repeat EUS in 6 months. Continue supportive measures GI prophylaxis. Diet as tolerated. Discharge per medicine. Return to office in 1 -2 weeks for reevaluation. Assessment and plan a care discussed with Dr. Simpson
[2018-04-16 13:21] VITALS: BP 125/71; PULSE 79; TEMP 98
--- NOTE | 2018-04-16 16:01 | P.DS ---
Providers Date of admission: 04/13/18 20:46 Attending physician: Stalin Patel MD Consults: 04/13/18 23:07 Consult Physician Routine Consulting Provider: Aris Braden Consult Reason/Comments: Intractable nausea vomiting Do you want consulting provider notified?: Yes, Notify in am Primary care physician: Reyes Russ - Discharge Diagnosis(es) (1) Abdominal pain This is acute on chronic abdominal pain. Patient initial blood work including electrolytes and renal function liver enzymes are place lipase bilirubin alkaline phosphatase viable cell count and hemoglobin were all within normal limits without any significant change from previous. Acute abdominal signs were negative for an acute pathology. Patient was started nothing by mouth IV fluids antiemetics and pain control. Patient was evaluated by gastroenterology service. Patient had a recent US at [facility] but results are not available. Consideration was done for possible ERCP. The above-mentioned treatment her symptoms improved and gastroenterology advised to diet. Patient controlled with diet well. Given the normal blood work and improvement in her pain gastroenterology recommended discharging patient home and following in the office in 1-2 weeks. Patient is to provide at that time EUS results and possibly to proceed with ERCP an outpatient basis. At time of discharge with discuss all appropriate concerns regarding opiate medications use and consent for open medications prescription was obtained. Prescription for less than 3 days was provided Current Visit: Yes Status: Acute Priority: High Hospital Course: This is a 62-year-old female who has had several bouts of pancreatitis and subsequently developed chronic epigastric pain. She is coming to ER with complaining of worsening epigastric pain describing it at that sharp radiating in a bandlike fashion 10 out of 10 associated with nausea provoked by food no particular alleviating factors. Due to her previous experience she came to emergency department for further evaluation. Emergency department her blood work revealed normal lipase and amylase and normal liver enzymes, total bilirubin and alkaline phosphatase. She was afebrile without any signs of dehydration stable electrolytes and renal function. Acute abdominal series were negative for any acute or any significant pathology. Patient was then admitted for further evaluation Patient Condition at Discharge: Good Plan - Discharge Summary New Discharge Prescriptions: Continue Albuterol Inhaler [Ventolin Hfa Inhaler] 1 - 2 puff INHALATION RT-Q6H PRN PRN Reason: Shortness Of Breath Gabapentin [Neurontin] 800 mg PO TID Albuterol Nebulized [Ventolin Nebulized] 2.5 mg INHALATION RT-QID PRN PRN Reason: Shortness Of Breath amLODIPine [Norvasc] 10 mg PO DAILY Famotidine [Pepcid] 20 mg PO BID #20 tablet Promethazine HCl 12.5 - 25 mg PO TID PRN PRN Reason: Nausea Changed HYDROcodone/APAP 10-325MG [[place] 10-325] 1 tab PO TID PRN #10 tab PRN Reason: Severe Pain Discontinued Azithromycin [Zithromax Z-pack] See Taper PO DAILY Discharge Medication List Albuterol Inhaler [Ventolin Hfa Inhaler] 1 - 2 puff INHALATION RT-Q6H PRN [History] Albuterol Nebulized [Ventolin Nebulized] 2.5 mg INHALATION RT-QID PRN 08/31/16 [ History] Gabapentin [Neurontin] 800 mg PO TID 08/31/16 [History] amLODIPine [Norvasc] 10 mg PO DAILY 02/18/18 [History] Famotidine [Pepcid] 20 mg PO BID #20 tablet 03/16/18 [Rx] Promethazine HCl 12.5 - 25 mg PO TID PRN 03/25/18 [History] HYDROcodone/APAP 10-325MG [[place] 10-325] 1 tab PO TID PRN #10 tab 04/16/18 [Rx] Follow up Appointment(s)/Referral(s): Zoya Clark MD [STAFF PHYSICIAN] - 05/02/18 2:30 pm Reyes Russ MD [Primary Care Provider] - 04/17/18 11:00 am Activity/Diet/Wound Care/Special Instructions: Continue low fat diet. Continue activities as tolerated. Fluids are encouraged. continue with home medications, heat or ice, position changes; if helps for pain. Call physician with any questions comments, concerns worsening returning symptoms that brought you into the hospital, not tolerating love fat diet, fever 101.1 or higher, not tolerating fluids. Discharge Disposition: HOME SELF-CARE
[2018-04-16 17:13] VITALS: RESP 16
== END 2018-04-16 17:49 | disposition home or self-care (01) ==
LOC: EC 16:06 → 6PED 20:46
PROVIDERS: ADMIT Family Medicine; ATTEND Family Medicine
DX: R10.13 Epigastric pain (principal); E86.0 Dehydration; R11.2 Nausea with vomiting, unspecified; G89.29 Other chronic pain; Z79.899 Other long term (current) drug therapy; I10 Essential (primary) hypertension; E87.2 Acidosis; J44.9 Chronic obstructive pulmonary disease, unspecified; K83.8 Other specified diseases of biliary tract; E87.8 Other disorders of electrolyte and fluid balance, not elsewhere classified; F17.200 Nicotine dependence, unspecified, uncomplicated; K21.9 Gastro-esophageal reflux disease without esophagitis; M06.9 Rheumatoid arthritis, unspecified; Z80.0 Family history of malignant neoplasm of digestive organs; Z81.1 Family history of alcohol abuse and dependence; Z82.49 Family history of ischemic heart disease and other diseases of the circulatory system; Z86.73 Personal history of transient ischemic attack (TIA), and cerebral infarction without residual deficits; Z90.49 Acquired absence of other specified parts of digestive tract; Z90.721 Acquired absence of ovaries, unilateral; Z87.19 Personal history of other diseases of the digestive system
CPT/HCPCS: 96361 ×3; 96376 ×5; 96374; 96375; 99285; 36415; 80053 ×3; 83690 ×2; 83735; 84100; 85025 ×2; 85027; 81001; 87324; 80306; 74022; G0378 ×4; J2270 ×4; J1200; J2765; J2405 ×3; J0696

== ENCOUNTER 2018-04-19 16:41 | Emergency (ER) | payer BC ==
[2018-04-19 17:12] VITALS: TEMP 98.6
[2018-04-19] MEDS ORDERED: SODIUM CHLORIDE 0.9% 1,000 ML IV STA ×3 (18:27→21:03)
[2018-04-19] MEDS ORDERED: MORPHINE SULFATE 4 MG/ML SYRINGE IV STA (18:27)
[2018-04-19] MEDS ORDERED: ONDANSETRON 4 MG/2 ML VIAL IVP STA (18:27)
--- NOTE | 2018-04-19 18:30 | ED ---
Abdominal Pain HPI - General Chief Complaint: Abdominal Pain Stated Complaint: ABd Pain Time Seen by Provider: 04/19/18 18:18 Source: patient Mode of arrival: ambulatory Limitations: no limitations - History of Present Illness Initial Comments: Patient is a 62-year-old female presenting for abdominal pain. She states that she has had multiple bouts of pancreatitis and that this feels exactly the same. She has been dealing with this for approximately 15 years and her last admission was a couple weeks ago. This abdominal pain started 2 days ago and is located in the right upper quadrant feels constant and stabbing. There are no modifying factors other than it being worse when she lays on her back. She denies any fevers or chills and had 4 episodes of nausea and vomiting today and 5 episodes of diarrhea. She denies any urinary symptoms, chest pain, shortness of breath. - Related Data Home Medications Medication Instructions Recorded Confirmed Albuterol Inhaler [Ventolin Hfa 1 - 2 puff INHALATION RT-Q6H PRN 07/15/16 Inhaler] Albuterol Nebulized [Ventolin 2.5 mg INHALATION RT-QID PRN 08/31/16 04/19/18 Nebulized] Gabapentin [Neurontin] 800 mg PO TID 08/31/16 04/19/18 amLODIPine [Norvasc] 10 mg PO DAILY 02/18/18 04/19/18 Previous Rx's Medication Instructions Recorded Famotidine [Pepcid] 20 mg PO BID #20 tablet 03/16/18 HYDROcodone/APAP 10-325MG [[place] 1 tab PO TID PRN #10 tab 04/16/18 10-325] Allergies Allergy/AdvReac Type Severity Reaction Status Date / Time No Known Allergies Allergy Verified 04/19/18 18:37 Review of Systems ROS Statement: Those systems with pertinent positive or pertinent negative responses have been documented in the HPI. Constitutional: Negative for chills, fatigue and fever. HENT: Negative for congestion. Respiratory: Negative for chest tightness, shortness of breath and wheezing. Negative for cough Cardiovascular: Negative for chest pain and palpitations. Gastrointestinal: Positive for abdominal pain. Negative for abdominal distention , positive for diarrhea, nausea and vomiting. Genitourinary: Negative for dysuria. Musculoskeletal: Negative for back pain, neck pain and neck stiffness. Skin: Negative for color change. Neurological: Negative for dizziness, speech difficulty, weakness and light- headedness. Psychiatric/Behavioral: Negative for agitation and confusion. Negative for anxiety ROS Other: All systems not noted in ROS Statement are negative. Past Medical History Past Medical History: COPD, CVA/TIA, GERD/Reflux, Hypertension, Osteoarthritis ( OA), Rheumatoid Arthritis (RA) Additional Past Medical History / Comment(s): Pt recently admitted to [facility] on with colitis/sepsis/R renal cyst. Other hx: Recurrent pancreatitis, bronchitis, TIA, anemia-unknown cause, migraines, ostoeporosis, past R femur fracture with surgery., History of Any Multi-Drug Resistant Organisms: None Reported Past Surgical History: Appendectomy, Back Surgery, Cholecystectomy, Orthopedic Surgery, Tonsillectomy Additional Past Surgical History / Comment(s): Pancreatic stents-since removed, 6 back surgeries with 2 fusions, right oophorectomy due to ectopic , EGD/colonoscopy, right leg alice inserted d/t fracture, Past Anesthesia/Blood Transfusion Reactions: No Reported Reaction Additional Past Anesthesia/Blood Transfusion Reaction / Comment(s): Pt has received blood in past without reaction. Past Psychological History: No Psychological Hx Reported Smoking Status: Current every day smoker - Past Family History Father Family Medical History: Cancer, Liver Disease Additional Family Medical History / Comment(s): Father was an alcoholic. He from lung/ liver cancer. Mother Family Medical History: Cancer, CVA/TIA, Hypertension Additional Family Medical History / Comment(s): Mother had breast and colon cancer. She of liver cancer at the age of 78 yrs. General Exam - General Exam Comments Initial Comments: Constitutional: Pt is oriented to person, place, and time. Pt appears well- developed and well-nourished. No distress. HENT: Head: Normocephalic and atraumatic. Eyes: EOM are normal. Neck: Normal range of motion. Neck supple. Cardiovascular: Tachycardia present., regular rhythm, S1 normal, S2 normal and normal heart sounds. Exam reveals no gallop and no friction rub. No murmur heard. Pulmonary/Chest: Effort normal and breath sounds normal. No tachypnea and no bradypnea. No respiratory distress. No wheezes or rales noted. Abdominal: Soft. Bowel sounds are normal. Pt exhibits no shifting dullness, no distension, no pulsatile liver, no fluid wave, no abdominal bruit and no ascites. There is mild tenderness to the epigastric region and right upper quadrant. There is no rigidity, no rebound, no guarding, no tenderness at McBurney's point and negative Espinoza's sign. Musculoskeletal: Normal range of motion. Neurological: Pt is alert and oriented to person, place, and time. No cranial nerve deficit. Skin: Skin is warm and dry. No rash noted. Pt is not diaphoretic. No erythema. No pallor. Psychiatric: Pt has a normal mood and affect. Pt behavior is normal. Thought content normal. Limitations: no limitations Course Vital Signs 04/19/18 04/19/18 17:09 20:37 Temperature 98.6 F Pulse Rate 101 H Respiratory 18 16 Rate Blood Pressure 93/59 99/55 O2 Sat by Pulse 99 98 Oximetry Medical Decision Making - Medical Decision Making Laboratory studies showed that there was significant leukocytosis 17.3 and lipase is elevated at 17,958. There is also significant acute kidney injury with a creatinine elevated from less than 1 to 1.8 and a GFR decreased from >90 to 30. Patient was originally admitted to general medical service here but after further discussion, it was advised by Dr. Hager that the patient be transferred to [facility] for escalation of care. This is discussed with the patient who is agreeable as well as a headache for transfer team and patient was accepted by Dr. Cotton. Imaging was not completed as the patient has had multiple images of the past and is felt that based on the presentation and past medical history, it is likely not infectious such as an abscess in nature. - Lab Data Result diagrams: 04/19/18 18:39 04/19/18 18:39 Lab Results 04/19/18 04/19/18 04/19/18 Range/Units 18:39 18:39 18:39 WBC 17.3 H (3.8-10.6) k/uL RBC 5.76 H (3.80-5.40) m/uL Hgb 16.4 H D (11.4-16.0) gm/dL Hct 50.4 H (34.0-46.0) % MCV 87.5 (80.0-100.0) fL MCH 28.5 (25.0-35.0) pg MCHC 32.6 (31.0-37.0) g/dL RDW 14.6 (11.5-15.5) % Plt Count 472 H (150-450) k/uL Neutrophils % 76 % Lymphocytes % 18 % Monocytes % 4 % Eosinophils % 1 % Basophils % 0 % Neutrophils # 13.1 H (1.3-7.7) k/uL Lymphocytes # 3.1 (1.0-4.8) k/uL Monocytes # 0.8 (0-1.0) k/uL Eosinophils # 0.2 (0-0.7) k/uL Basophils # 0.0 (0-0.2) k/uL Sodium 141 (137-145) mmol/L Potassium 4.4 (3.5-5.1) mmol/L Chloride 109 H (98-107) mmol/L Carbon Dioxide 18 L (22-30) mmol/L Anion Gap 14 mmol/L BUN 18 H (7-17) mg/dL Creatinine 1.80 H (0.52-1.04) mg/dL Est GFR (CKD-EPI)AfAm 34 (>60 ml/min/1.73 sqM) Est GFR (CKD-EPI)NonAf 30 (>60 ml/min/1.73 sqM) Glucose 133 H (74-99) mg/dL Calcium 10.3 H (8.4-10.2) mg/dL Magnesium 2.1 (1.6-2.3) mg/dL Total Bilirubin 0.5 (0.2-1.3) mg/dL AST 22 (14-36) U/L ALT 21 (9-52) U/L Alkaline Phosphatase 97 (38-126) U/L Troponin I <0.012 (0.000-0.034) ng/mL Total Protein 8.8 H (6.3-8.2) g/dL Albumin 4.9 (3.5-5.0) g/dL Lipase 54507 H (23-300) U/L Disposition Clinical Impression: Pancreatitis, Acute kidney injury Disposition: OTHER INSTITUTION NOT DEFINED Condition: Fair Referrals: Reyes Russ MD [Primary Care Provider] - 1-2 days - Out of Hospital Transfer - Req. Specs Out of Hospital Transfer - Requested Specifics: Other Emergency Center ([facility])
[2018-04-19 19:03] LABS: Basophils % (A) 0 %; Eosinophils # (A) 0.2 k/uL (0-0.7); Eosinophils % (A) 1 %; HCT 50.4 % (34.0-46.0); Lymphocytes # (A) 3.1 k/uL (1.0-4.8); Lymphocytes % (A) 18 %; MCH 28.5 pg (25.0-35.0); MCHC 32.6 g/dL (31.0-37.0); MCV 87.5 fL (80.0-100.0); Mean Platelet Volume 6.9; Monocytes # (A) 0.8 k/uL (0-1.0); Monocytes % (A) 4 %; Neutrophils # (A) 13.1 k/uL (1.3-7.7); Neutrophils % (A) 76 %; Platelet Count 472 k/uL (150-450); RBC 5.76 m/uL (3.80-5.40); RDW 14.6 % (11.5-15.5); WBC 17.3 k/uL (3.8-10.6)
[2018-04-19 19:07] LABS: Albumin 4.9 g/dL (3.5-5.0); Calcium 10.3 mg/dL (8.4-10.2); HGB 16.4 gm/dL (11.4-16.0); Magnesium 2.1 mg/dL (1.6-2.3); Potassium 4.4 mmol/L (3.5-5.1); Total Bilirubin 0.5 mg/dL (0.2-1.3); Total Protein 8.8 g/dL (6.3-8.2)
[2018-04-19] MEDS ORDERED: HYDROmorphone 0.5 MG/0.5 ML SYRINGE IVP STA ×2 (19:51→23:07)
[2018-04-19 20:37] VITALS: RESP 16
--- NOTE | 2018-04-19 22:26 | ED ---
Medical Decision Making - Lab Data Result diagrams: 04/19/18 18:39 04/19/18 18:39 Lab Results 04/19/18 04/19/18 04/19/18 Range/Units 18:39 18:39 18:39 WBC 17.3 H (3.8-10.6) k/uL RBC 5.76 H (3.80-5.40) m/uL Hgb 16.4 H D (11.4-16.0) gm/dL Hct 50.4 H (34.0-46.0) % MCV 87.5 (80.0-100.0) fL MCH 28.5 (25.0-35.0) pg MCHC 32.6 (31.0-37.0) g/dL RDW 14.6 (11.5-15.5) % Plt Count 472 H (150-450) k/uL Neutrophils % 76 % Lymphocytes % 18 % Monocytes % 4 % Eosinophils % 1 % Basophils % 0 % Neutrophils # 13.1 H (1.3-7.7) k/uL Lymphocytes # 3.1 (1.0-4.8) k/uL Monocytes # 0.8 (0-1.0) k/uL Eosinophils # 0.2 (0-0.7) k/uL Basophils # 0.0 (0-0.2) k/uL Sodium 141 (137-145) mmol/L Potassium 4.4 (3.5-5.1) mmol/L Chloride 109 H (98-107) mmol/L Carbon Dioxide 18 L (22-30) mmol/L Anion Gap 14 mmol/L BUN 18 H (7-17) mg/dL Creatinine 1.80 H (0.52-1.04) mg/dL Est GFR (CKD-EPI)AfAm 34 (>60 ml/min/1.73 sqM) Est GFR (CKD-EPI)NonAf 30 (>60 ml/min/1.73 sqM) Glucose 133 H (74-99) mg/dL Calcium 10.3 H (8.4-10.2) mg/dL Magnesium 2.1 (1.6-2.3) mg/dL Total Bilirubin 0.5 (0.2-1.3) mg/dL AST 22 (14-36) U/L ALT 21 (9-52) U/L Alkaline Phosphatase 97 (38-126) U/L Troponin I <0.012 (0.000-0.034) ng/mL Total Protein 8.8 H (6.3-8.2) g/dL Albumin 4.9 (3.5-5.0) g/dL Lipase 74943 H (23-300) U/L - EKG Data EKG Comments: EKG showed normal sinus rhythm with a rate of 77, CO interval 144, QRS 68, QTC 518. There is no significant ST depressions or elevations. Disposition Clinical Impression: Pancreatitis, Acute kidney injury Disposition: OTHER INSTITUTION NOT DEFINED Condition: Fair Is patient prescribed a controlled substance at d/c from ED?: No Referrals: Reyes Russ MD [Primary Care Provider] - 1-2 days - Out of Hospital Transfer - Req. Specs Out of Hospital Transfer - Requested Specifics: Other Emergency Center ([facility])
[2018-04-19] MEDS ORDERED: LORazepam 2 MG/ML INJ IV STA (22:34)
[2018-04-19 23:25] VITALS: BP 112/57; PULSE 78
== END 2018-04-19 23:24 | disposition short-term general hospital (02) ==
LOC: EC 16:41
DX: K85.90 Acute pancreatitis without necrosis or infection, unspecified (principal); N17.9 Acute kidney failure, unspecified; D72.829 Elevated white blood cell count, unspecified; R74.8 Abnormal levels of other serum enzymes; R00.0 Tachycardia, unspecified; R19.7 Diarrhea, unspecified; J44.9 Chronic obstructive pulmonary disease, unspecified; I10 Essential (primary) hypertension; F17.200 Nicotine dependence, unspecified, uncomplicated; Z79.899 Other long term (current) drug therapy; Z90.49 Acquired absence of other specified parts of digestive tract; Z80.0 Family history of malignant neoplasm of digestive organs; Z82.49 Family history of ischemic heart disease and other diseases of the circulatory system
CPT/HCPCS: 36415; 93005; 80053; 83690; 83735; 84484; 85025; 99285; 96374; 96375 ×3; 96376; 96361 ×4; J2060; J2270; J2405; J1170

== ENCOUNTER 2018-04-28 15:49 | Emergency (ER) | payer BC ==
[2018-04-28] MEDS ORDERED: MORPHINE SULFATE 2 MG/ML SYRINGE IVP STA ×2 (16:29→19:35)
[2018-04-28] MEDS ORDERED: SODIUM CHLORIDE 0.9% 500 ML IV STA (16:29)
[2018-04-28] MEDS ORDERED: ONDANSETRON 4 MG/2 ML VIAL IVP STA (16:29)
[2018-04-28] MEDS ORDERED: SODIUM CHLORIDE 0.9% 1,000 ML IV STA (16:29)
[2018-04-28 17:55] LABS: Basophils % (A) 0 %; Eosinophils # (A) 0.1 k/uL (0-0.7); Eosinophils % (A) 1 %; HCT 40.8 % (34.0-46.0); HGB 13.5 gm/dL (11.4-16.0); Lymphocytes # (A) 2.1 k/uL (1.0-4.8); Lymphocytes % (A) 21 %; MCH 29.1 pg (25.0-35.0); MCHC 33.2 g/dL (31.0-37.0); MCV 87.7 fL (80.0-100.0); Mean Platelet Volume 6.9; Monocytes # (A) 0.4 k/uL (0-1.0); Monocytes % (A) 4 %; Neutrophils # (A) 7.6 k/uL (1.3-7.7); Neutrophils % (A) 74 %; Platelet Count 456 k/uL (150-450); RBC 4.65 m/uL (3.80-5.40); RDW 14.2 % (11.5-15.5); WBC 10.3 k/uL (3.8-10.6)
[2018-04-28 18:11] LABS: ALT 27 U/L (9-52); AST 23 U/L (14-36); Albumin 4.4 g/dL (3.5-5.0); Alkaline Phosphatase 101 U/L (38-126); Amylase 53 U/L (30-110); Anion Gap 10 mmol/L; Blood Urea Nitrogen 14 mg/dL (7-17); Calcium 9.9 mg/dL (8.4-10.2); Carbon Dioxide 21 mmol/L (22-30); Chloride 108 mmol/L (98-107); Glucose 114 mg/dL (74-99); Lipase 123 U/L (23-300); Sodium 139 mmol/L (137-145); Total Bilirubin 0.5 mg/dL (0.2-1.3); Total Protein 7.7 g/dL (6.3-8.2)
[2018-04-28 18:12] LABS: Potassium 5.2 mmol/L (3.5-5.1)
--- NOTE | 2018-04-28 18:27 | ED ---
Abdominal Pain HPI - General Chief Complaint: Abdominal Pain Stated Complaint: Abd.pain Time Seen by Provider: 04/28/18 16:18 Source: patient Mode of arrival: wheelchair Limitations: no limitations - History of Present Illness Initial Comments: 62 years O female comes in with the epigastric pain she has a history of pancreatitis she believes pancreatitis is back now she has nausea and vomiting overnight for 3 days she denies any alcohol use she believes he has gallstones. Denies any chest pain or shortness of breath has abdominal pain no frequency urgency dysuria no symptoms of TIA or CVA - Related Data Home Medications Medication Instructions Recorded Confirmed Albuterol Inhaler [Ventolin Hfa 1 - 2 puff INHALATION RT-Q6H PRN 07/15/16 Inhaler] Albuterol Nebulized [Ventolin 2.5 mg INHALATION RT-QID PRN 08/31/16 04/19/18 Nebulized] Gabapentin [Neurontin] 800 mg PO TID 08/31/16 04/19/18 amLODIPine [Norvasc] 10 mg PO DAILY 02/18/18 04/19/18 Previous Rx's Medication Instructions Recorded Famotidine [Pepcid] 20 mg PO BID #20 tablet 03/16/18 HYDROcodone/APAP 10-325MG [[place] 1 tab PO TID PRN #10 tab 04/16/18 10-325] HYDROcodone/APAP 5-325MG [[place] 5] 1 - 2 each PO Q6HR PRN #12 tab 04/28/18 Allergies Allergy/AdvReac Type Severity Reaction Status Date / Time No Known Allergies Allergy Verified 04/28/18 16:12 Review of Systems ROS Statement: Those systems with pertinent positive or pertinent negative responses have been documented in the HPI. ROS Other: All systems not noted in ROS Statement are negative. Past Medical History Past Medical History: COPD, CVA/TIA, GERD/Reflux, Hypertension, Osteoarthritis ( OA), Rheumatoid Arthritis (RA) Additional Past Medical History / Comment(s): Pt recently admitted to [facility] on with colitis/sepsis/R renal cyst. Other hx: Recurrent pancreatitis, bronchitis, TIA, anemia-unknown cause, migraines, ostoeporosis, past R femur fracture with surgery., History of Any Multi-Drug Resistant Organisms: None Reported Past Surgical History: Appendectomy, Back Surgery, Cholecystectomy, Orthopedic Surgery, Tonsillectomy Additional Past Surgical History / Comment(s): Pancreatic stents-since removed, 6 back surgeries with 2 fusions, right oophorectomy due to ectopic , EGD/colonoscopy, right leg alice inserted d/t fracture, Past Anesthesia/Blood Transfusion Reactions: No Reported Reaction Additional Past Anesthesia/Blood Transfusion Reaction / Comment(s): Pt has received blood in past without reaction. Past Psychological History: No Psychological Hx Reported Smoking Status: Current every day smoker Past Alcohol Use History: None Reported Past Drug Use History: None Reported - Past Family History Father Family Medical History: Cancer, Liver Disease Additional Family Medical History / Comment(s): Father was an alcoholic. He from lung/ liver cancer. Mother Family Medical History: Cancer, CVA/TIA, Hypertension Additional Family Medical History / Comment(s): Mother had breast and colon cancer. She of liver cancer at the age of 78 yrs. General Exam - General Exam Comments Initial Comments: General: The patient is awake and alert, in no distress, and does not appear acutely ill. Skin: Skin is warm and dry and no rashes or lesions are noted. Eye: Pupils are equal, round and reactive to light, extra-ocular movements are intact; there is normal conjunctiva bilaterally. Ears, nose, mouth and throat: There are moist mucous membranes and no oral lesions. Neck: The neck is supple, there is no tenderness or JVD. Cardiovascular: There is a regular rate and rhythm. No murmur, rub or gallop is appreciated. Respiratory: To auscultation bilateral, no wheezing no rhonchi no distress respiratory addison noticed Gastrointestinal: Tenderness epigastric area positive bowel sounds no guarding no rebounds. Back: There is no tenderness to palpation in the midline. There is no obvious deformity. Musculoskeletal: Normal ROM, no tenderness, There is no pedal edema. There is no calf tenderness or swelling. No cords were appreciated. Neurological: CN II-XII intact, Cranial nerves III through XII are intact. There are no obvious motor or sensory deficits. Coordination appears grossly intact. Speech is normal. Psychiatric: Cooperative, appropriate mood & affect, normal judgment. Limitations: no limitations Course Vital Signs 04/28/18 04/28/18 16:09 19:28 Temperature 98.9 F Pulse Rate 97 71 Respiratory 16 18 Rate Blood Pressure 154/88 148/72 O2 Sat by Pulse 97 96 Oximetry She is reassessed at term 181 labs are within normal range his CT abdomen is pending. Disposition be done as soon as CT abdomen available to me It is [address] CT abdomen and pelvis report is still pending, delaying the disposition Medical Decision Making - Lab Data Result diagrams: 04/28/18 17:42 04/28/18 17:42 Lab Results 04/28/18 04/28/18 04/28/18 Range/Units 17:42 17:42 17:42 WBC 10.3 (3.8-10.6) k/uL RBC 4.65 (3.80-5.40) m/uL Hgb 13.5 (11.4-16.0) gm/dL Hct 40.8 (34.0-46.0) % MCV 87.7 (80.0-100.0) fL MCH 29.1 (25.0-35.0) pg MCHC 33.2 (31.0-37.0) g/dL RDW 14.2 (11.5-15.5) % Plt Count 456 H (150-450) k/uL Neutrophils % 74 % Lymphocytes % 21 % Monocytes % 4 % Eosinophils % 1 % Basophils % 0 % Neutrophils # 7.6 (1.3-7.7) k/uL Lymphocytes # 2.1 (1.0-4.8) k/uL Monocytes # 0.4 (0-1.0) k/uL Eosinophils # 0.1 (0-0.7) k/uL Basophils # 0.0 (0-0.2) k/uL Sodium 139 (137-145) mmol/L Potassium 5.2 H (3.5-5.1) mmol/L Chloride 108 H (98-107) mmol/L Carbon Dioxide 21 L (22-30) mmol/L Anion Gap 10 mmol/L BUN 14 (7-17) mg/dL Creatinine 0.70 (0.52-1.04) mg/dL Est GFR (CKD-EPI)AfAm >90 (>60 ml/min/1.73 sqM) Est GFR (CKD-EPI)NonAf >90 (>60 ml/min/1.73 sqM) Glucose 114 H (74-99) mg/dL Plasma Lactic Acid Derek 1.1 (0.7-2.0) mmol/L Calcium 9.9 (8.4-10.2) mg/dL Total Bilirubin 0.5 (0.2-1.3) mg/dL AST 23 (14-36) U/L ALT 27 (9-52) U/L Alkaline Phosphatase 101 (38-126) U/L Troponin I (0.000-0.034) ng/mL Total Protein 7.7 (6.3-8.2) g/dL Albumin 4.4 (3.5-5.0) g/dL Amylase 53 (30-110) U/L Lipase 123 (23-300) U/L Urine Color Urine Appearance (Clear) Urine pH (5.0-8.0) Ur Specific [place] (1.001-1.035) Urine Protein (Negative) Urine Glucose (UA) (Negative) Urine Ketones (Negative) Urine Blood (Negative) Urine Nitrite (Negative) Urine Bilirubin (Negative) Urine Urobilinogen (<2.0) mg/dL Ur Leukocyte Esterase (Negative) Urine RBC (0-5) /hpf Urine WBC (0-5) /hpf Ur Squamous Epith Cells (0-4) /hpf Urine Mucus (None) /hpf 04/28/18 04/28/18 Range/Units 17:42 19:16 WBC (3.8-10.6) k/uL RBC (3.80-5.40) m/uL Hgb (11.4-16.0) gm/dL Hct (34.0-46.0) % MCV (80.0-100.0) fL MCH (25.0-35.0) pg MCHC (31.0-37.0) g/dL RDW (11.5-15.5) % Plt Count (150-450) k/uL Neutrophils % % Lymphocytes % % Monocytes % % Eosinophils % % Basophils % % Neutrophils # (1.3-7.7) k/uL Lymphocytes # (1.0-4.8) k/uL Monocytes # (0-1.0) k/uL Eosinophils # (0-0.7) k/uL Basophils # (0-0.2) k/uL Sodium (137-145) mmol/L Potassium (3.5-5.1) mmol/L Chloride (98-107) mmol/L Carbon Dioxide (22-30) mmol/L Anion Gap mmol/L BUN (7-17) mg/dL Creatinine (0.52-1.04) mg/dL Est GFR (CKD-EPI)AfAm (>60 ml/min/1.73 sqM) Est GFR (CKD-EPI)NonAf (>60 ml/min/1.73 sqM) Glucose (74-99) mg/dL Plasma Lactic Acid Derek (0.7-2.0) mmol/L Calcium (8.4-10.2) mg/dL Total Bilirubin (0.2-1.3) mg/dL AST (14-36) U/L ALT (9-52) U/L Alkaline Phosphatase (38-126) U/L Troponin I <0.012 (0.000-0.034) ng/mL Total Protein (6.3-8.2) g/dL Albumin (3.5-5.0) g/dL Amylase (30-110) U/L Lipase (23-300) U/L Urine Color Colorless Urine Appearance Cloudy H (Clear) Urine pH 7.0 (5.0-8.0) Ur Specific [place] 1.004 (1.001-1.035) Urine Protein Negative (Negative) Urine Glucose (UA) Negative (Negative) Urine Ketones Negative (Negative) Urine Blood Trace H (Negative) Urine Nitrite Negative (Negative) Urine Bilirubin Negative (Negative) Urine Urobilinogen <2.0 (<2.0) mg/dL Ur Leukocyte Esterase Moderate H (Negative) Urine RBC 3 (0-5) /hpf Urine WBC 12 H (0-5) /hpf Ur Squamous Epith Cells 3 (0-4) /hpf Urine Mucus Rare H (None) /hpf Disposition Clinical Impression: Abdominal pain Disposition: HOME SELF-CARE Condition: Good Instructions: Abdominal Pain (ED) Additional Instructions: He is to continue her Pepcid 20 mg by mouth twice a day Prescriptions: HYDROcodone/APAP 5-325MG [[place] 5] 1 - 2 each PO Q6HR PRN #12 tab PRN Reason: Pain Is patient prescribed a controlled substance at d/c from ED?: Yes Referrals: Reyes Russ MD [Primary Care Provider] - 1-2 days
--- NOTE | 2018-04-28 18:39 | XR ---
EXAMINATION TYPE: XR KUB DATE OF EXAM: 04/28/2018 6:00 PM CLINICAL HISTORY: Abdominal pain, nausea and vomiting TECHNIQUE: Single supine KUB image of the abdomen is obtained. COMPARISON: None. FINDINGS: No evidence of pneumoperitoneum or dilated large or small bowel. Fusion hardware of multipl e lumbar vertebral bodies are evident as well as intervertebral disc spacers and kyphoplasty changes. Surgical clips are present in the gallbladder fossa. Intramedullary alice with locking screw is seen o f the proximal right femur. No gross evidence of acute osseous fracture. Limited evaluation of lower thorax is unremarkable. IMPRESSION: 1. No acute intra-abdominal or pelvic process. 2. Postsurgical changes.
[2018-04-28 19:30] VITALS: PULSE 71; RESP 18
[2018-04-28 19:31] LABS: Appearance,Urine Cloudy (Clear); Bilirubin,Urine Negative (Negative); Blood,Urine Trace (Negative); Color,Urine Colorless; Glucose,Urine (UA) Negative (Negative); Ketones,Urine Negative (Negative); Leukocyte Esterase,Urine Moderate (Negative); Mucus,Urine Rare /hpf; Nitrite,Urine Negative (Negative); Protein,Urine Negative (Negative); RBC,Urine 3 /hpf (0-5); Specific Gravity,Urine 1.004 (1.001-1.035); Squamous Epithelial Cell,Urine 3 /hpf (0-4); Urobilinogen,Urine <2.0 mg/dL (<2.0); WBC,Urine 12 /hpf (0-5)
--- NOTE | 2018-04-28 20:10 | CT ---
EXAMINATION TYPE: CT abdomen pelvis w con DATE OF EXAM: 04/28/2018 COMPARISON: CT abdomen and pelvis 03/26/2018 HISTORY: abdominal pain CT DLP: 401.8 mGycm Automated exposure control for dose reduction was used. TECHNIQUE: Helical acquisition of images was performed from the lung bases through the pelvis. CONTRAST: Performed without Oral Contrast and with IV Contrast, patient injected with 100 mL of Isovue 300. FINDINGS: LUNG BASES: No significant abnormality is appreciated. LIVER/GB: No hepatic abnormality. Minimal intrahepatic or ductal dilatation is seen. This is not unus ual following a cholecystectomy. PANCREAS: Pancreas is slightly atrophic but otherwise unremarkable. SPLEEN: No significant abnormality is seen. ADRENALS: No significant abnormality is seen. KIDNEYS: No significant abnormality is seen. FREE AIR: No free air is visualized. RETROPERITONEAL ADENOPATHY: None visualized REPRODUCTIVE ORGANS: No significant abnormality is seen URINARY BLADDER: No significant abnormality is seen. PELVIC ADENOPATHY: None visualized. OSSEOUS STRUCTURES: No significant abnormality is seen. Postsurgical changes of lumbar spine as well as right femur. No acute osseous fracture. BOWEL: No significant abnormality is seen. Appendix is not definitively visualized. IMPRESSION: NO FINDINGS TO EXPLAIN PATIENT'S ABDOMINAL PAIN.
[2018-04-28 21:03] VITALS: BP 174/88; TEMP 98.4
== END 2018-04-28 21:03 | disposition home or self-care (01) ==
LOC: EC 15:49
DX: R10.13 Epigastric pain (principal); R11.2 Nausea with vomiting, unspecified; I10 Essential (primary) hypertension; J44.9 Chronic obstructive pulmonary disease, unspecified; F17.200 Nicotine dependence, unspecified, uncomplicated; Z79.899 Other long term (current) drug therapy; Z90.49 Acquired absence of other specified parts of digestive tract; Z80.0 Family history of malignant neoplasm of digestive organs
CPT/HCPCS: 36415; 80053; 82150; 83605; 83690; 84484; 85025; 81001; 74018; 74177; 99284; 96374; 96375; 96376; 96361 ×3; J2405; J2270; Q9967

== ENCOUNTER 2018-05-06 04:12 | Inpatient (IN) | payer BC ==
[2018-05-06] MEDS ORDERED: SODIUM CHLORIDE 0.9% 1,000 ML IV STA (04:23)
--- NOTE | 2018-05-06 04:24 | ED ---
Abdominal Pain HPI - General Chief Complaint: Abdominal Pain Stated Complaint: abd pain Time Seen by Provider: 05/06/18 04:23 Source: patient Mode of arrival: ambulatory Limitations: no limitations - History of Present Illness Initial Comments: Domi mandel is a 62-year-old female with a history of pancreatitis who presents to the emergency department today for evaluation of severe epigastric abdominal pain identical in nature to previous episodes of pancreatitis. Patient reports that approximately 2 days ago she began having epigastric abdominal pain that was burning in nature, radiated straight through to her back , was associated with nausea and nonbloody nonbilious emesis. Patient reports she's not been able to hold down any food or fluids for 2 days. She reports that the pain is progressively worsened and today it became unbearable which prompted her to come to the ER for evaluation. Ports that she was admitted last month for pancreatitis and is scheduled to follow-up with Dr. Clark gastroenterology on an outpatient basis. Patient denies any associated fevers, chills, chest pain, shortness of breath. - Related Data Home Medications Medication Instructions Recorded Confirmed Albuterol Inhaler [Ventolin Hfa 1 - 2 puff INHALATION RT-Q6H PRN 07/15/16 Inhaler] Albuterol Nebulized [Ventolin 2.5 mg INHALATION RT-QID PRN 08/31/16 04/19/18 Nebulized] Gabapentin [Neurontin] 800 mg PO TID 08/31/16 04/19/18 amLODIPine [Norvasc] 10 mg PO DAILY 02/18/18 04/19/18 Previous Rx's Medication Instructions Recorded Famotidine [Pepcid] 20 mg PO BID #20 tablet 03/16/18 HYDROcodone/APAP 10-325MG [[place] 1 tab PO TID PRN #10 tab 04/16/18 10-325] HYDROcodone/APAP 5-325MG [[place] 5] 1 - 2 each PO Q6HR PRN #12 tab 04/28/18 Allergies Allergy/AdvReac Type Severity Reaction Status Date / Time No Known Allergies Allergy Verified 05/06/18 04:17 Review of Systems ROS Statement: Those systems with pertinent positive or pertinent negative responses have been documented in the HPI. ROS Other: All systems not noted in ROS Statement are negative. Past Medical History Past Medical History: COPD, CVA/TIA, GERD/Reflux, Hypertension, Osteoarthritis ( OA), Rheumatoid Arthritis (RA) Additional Past Medical History / Comment(s): Pt recently admitted to [facility] on with colitis/sepsis/R renal cyst. Other hx: Recurrent pancreatitis, bronchitis, TIA, anemia-unknown cause, migraines, ostoeporosis, past R femur fracture with surgery., History of Any Multi-Drug Resistant Organisms: None Reported Past Surgical History: Appendectomy, Back Surgery, Cholecystectomy, Orthopedic Surgery, Tonsillectomy Additional Past Surgical History / Comment(s): Pancreatic stents-since removed, 6 back surgeries with 2 fusions, right oophorectomy due to ectopic , EGD/colonoscopy, right leg alice inserted d/t fracture, Past Anesthesia/Blood Transfusion Reactions: No Reported Reaction Additional Past Anesthesia/Blood Transfusion Reaction / Comment(s): Pt has received blood in past without reaction. Past Psychological History: No Psychological Hx Reported Smoking Status: Current every day smoker Past Alcohol Use History: None Reported Past Drug Use History: None Reported - Past Family History Father Family Medical History: Cancer, Liver Disease Additional Family Medical History / Comment(s): Father was an alcoholic. He from lung/ liver cancer. Mother Family Medical History: Cancer, CVA/TIA, Hypertension Additional Family Medical History / Comment(s): Mother had breast and colon cancer. She of liver cancer at the age of 78 yrs. General Exam - General Exam Comments Initial Comments: GENERAL: Patient is well-developed and well-nourished. Patient is nontoxic and well- hydrated and is in moderate distress Chronically ill-appearing, appears older than stated age HENT: Normocephalic, Atraumatic. Neck is soft and supple. No significant lymphadenopathy is noted. Oropharynx is clear. Moist mucous membranes. Neck has full range of motion without eliciting any pain. EYES: The sclera were anicteric and conjunctiva were pink and moist. Extraocular movements were intact and pupils were equal round and reactive to light. Eyelids were unremarkable. PULMONARY: Unlabored respirations. Good breath sounds bilaterally. No audible rales rhonchi or wheezing was noted. CARDIOVASCULAR: There is a regular rate and rhythm without any murmurs gallops or rubs. ABDOMEN: Tenderness to palpation in the epigastrium SKIN: Skin is clear with no lesions or rashes and otherwise unremarkable. NEUROLOGIC: Patient is alert and oriented x3. Cranial nerves II through XII are grossly intact. MUSCULOSKELETAL: Normal extremities with adequate strength and full range of motion. No lower extremity swelling or edema. No calf tenderness. LYMPHATICS: No significant lymphadenopathy is noted PSYCHIATRIC: Normal psychiatric evaluation. Limitations: no limitations Limitations: no limitations Course Vital Signs 05/06/18 05/06/18 04:14 06:52 Temperature 97.9 F 98.5 F Pulse Rate 95 66 Respiratory 16 17 Rate Blood Pressure 126/76 146/71 O2 Sat by Pulse 99 100 Oximetry Medical Decision Making - Medical Decision Making Patient was seen and evaluated, history is obtained from the patient records Vital signs and nursing note reviewed Labs and imaging were ordered Labs consistent with acute on chronic pancreatitis, additional IVF and morphine ordered Patient care was discussed with admitting physician Dr. Tian who accepts admission. - Lab Data Result diagrams: 05/06/18 04:50 05/06/18 04:50 Lab Results 05/06/18 05/06/18 Range/Units 04:50 04:50 WBC 8.5 (3.8-10.6) k/uL RBC 5.16 (3.80-5.40) m/uL Hgb 14.5 (11.4-16.0) gm/dL Hct 44.7 (34.0-46.0) % MCV 86.6 (80.0-100.0) fL MCH 28.1 (25.0-35.0) pg MCHC 32.4 (31.0-37.0) g/dL RDW 14.3 (11.5-15.5) % Plt Count 451 H (150-450) k/uL Neutrophils % 58 % Lymphocytes % 31 % Monocytes % 5 % Eosinophils % 4 % Basophils % 0 % Neutrophils # 5.0 (1.3-7.7) k/uL Lymphocytes # 2.6 (1.0-4.8) k/uL Monocytes # 0.4 (0-1.0) k/uL Eosinophils # 0.3 (0-0.7) k/uL Basophils # 0.0 (0-0.2) k/uL Sodium 140 (137-145) mmol/L Potassium 4.1 (3.5-5.1) mmol/L Chloride 105 (98-107) mmol/L Carbon Dioxide 23 (22-30) mmol/L Anion Gap 12 mmol/L BUN 16 (7-17) mg/dL Creatinine 0.70 (0.52-1.04) mg/dL Est GFR (CKD-EPI)AfAm >90 (>60 ml/min/1.73 sqM) Est GFR (CKD-EPI)NonAf >90 (>60 ml/min/1.73 sqM) Glucose 128 H (74-99) mg/dL Calcium 10.2 (8.4-10.2) mg/dL Total Bilirubin 0.3 (0.2-1.3) mg/dL AST 22 (14-36) U/L ALT 25 (9-52) U/L Alkaline Phosphatase 100 (38-126) U/L Total Protein 8.2 (6.3-8.2) g/dL Albumin 4.6 (3.5-5.0) g/dL Lipase 1431 H (23-300) U/L Disposition Clinical Impression: Acute on chronic pancreatitis Disposition: ADMITTED IP TO THIS HOSP
[2018-05-06 05:12] LABS: Basophils % (A) 0 %; Eosinophils # (A) 0.3 k/uL (0-0.7); Eosinophils % (A) 4 %; HCT 44.7 % (34.0-46.0); HGB 14.5 gm/dL (11.4-16.0); Lymphocytes # (A) 2.6 k/uL (1.0-4.8); Lymphocytes % (A) 31 %; MCH 28.1 pg (25.0-35.0); MCHC 32.4 g/dL (31.0-37.0); MCV 86.6 fL (80.0-100.0); Mean Platelet Volume 6.2; Monocytes # (A) 0.4 k/uL (0-1.0); Monocytes % (A) 5 %; Neutrophils % (A) 58 %; Platelet Count 451 k/uL (150-450); RBC 5.16 m/uL (3.80-5.40); RDW 14.3 % (11.5-15.5); WBC 8.5 k/uL (3.8-10.6)
[2018-05-06 05:22] LABS: ALT 25 U/L (9-52); AST 22 U/L (14-36); Albumin 4.6 g/dL (3.5-5.0); Alkaline Phosphatase 100 U/L (38-126); Anion Gap 12 mmol/L; Blood Urea Nitrogen 16 mg/dL (7-17); Calcium 10.2 mg/dL (8.4-10.2); Carbon Dioxide 23 mmol/L (22-30); Chloride 105 mmol/L (98-107); Glucose 128 mg/dL (74-99); Lipase 1431 U/L (23-300); Potassium 4.1 mmol/L (3.5-5.1); Sodium 140 mmol/L (137-145); Total Bilirubin 0.3 mg/dL (0.2-1.3); Total Protein 8.2 g/dL (6.3-8.2)
[2018-05-06] MEDS ORDERED: MORPHINE SULFATE 4 MG/ML SYRINGE IVP STA ×2 (05:28→06:50)
[2018-05-06] MEDS ORDERED: SODIUM CHLORIDE 0.9% 1,000 ML IV ONE (05:29)
[2018-05-06] MEDS ORDERED: SODIUM CHLORIDE 0.9% 1,000 ML IV SCH (05:30)
--- NOTE | 2018-05-06 05:30 | XR ---
EXAM: XR Abdomen, 1 View CLINICAL HISTORY: ITS.REASON XR Reason: abdominal pain TECHNIQUE: Frontal supine view of the abdomen/pelvis. COMPARISON: CT dated 02/18/2018. FINDINGS: Gastrointestinal tract: Unremarkable. No dilation. No evidence of free air. Bones/joints: Postoperative findings related to posterior spinal fusion and multilevel vertebral augmentation procedures. Partially imaged intramedullary alice in the right femur. Mild degenerative changes of both hip joints. Soft tissues: Surgical clips in the right upper quadrant. IMPRESSION: No acute findings.
[2018-05-06 07:02] LABS: Appearance,Urine Clear (Clear); Bacteria,Urine Rare /hpf; Bilirubin,Urine Negative (Negative); Blood,Urine Trace (Negative); Color,Urine Light Yellow; Glucose,Urine (UA) Negative (Negative); Ketones,Urine Negative (Negative); Leukocyte Esterase,Urine Small (Negative); Mucus,Urine Rare /hpf; Nitrite,Urine Negative (Negative); PH, Urine 6.5 (5.0-8.0); Protein,Urine Negative (Negative); RBC,Urine 3 /hpf (0-5); Specific Gravity,Urine 1.008 (1.001-1.035); Squamous Epithelial Cell,Urine 4 /hpf (0-4); Urobilinogen,Urine <2.0 mg/dL (<2.0); WBC,Urine 4 /hpf (0-5)
--- NOTE | 2018-05-06 07:08 | P.HPIM ---
History of Present Illness H&P Date: 05/06/18 Chief Complaint: Abdominal pain 62-year-old female with history of recurrent idiopathic pancreatitis. Patient presented to the hospital with acute epigastric severe abdominal pain similar to her prior attacks she started experiencing the pain to 3 days ago describes it as sharp radiating straight through to the back 10 out of 10 in severity associated with nausea and vomiting nonbloody nonbilious. She has not been able to keep any food or liquids down for the past 2 days and pain has been progressively getting worse which made her decided to come to the ER she normally tries to power through the pain for couple days but this time with no resolution. Patient is well-known to our service with multiple admissions to the hospital she had extensive workup done including multiple CAT scans of the abdomen, EUS, MRCP. Also suggested dilatation of the biliary tract with no definite diagnosis. Last time she was evaluated the plan was to have an ERCP done as an outpatient patient has not had a chance to get that done yet Otherwise patient denies any fevers chills or GI bleeding denies any focal neurologic deficits denies any chest pain or trouble breathing. Review of Systems Pertinent positives as noted in HPI. All other systems were reviewed and are negative Past Medical History Past Medical History: COPD, CVA/TIA, GERD/Reflux, Hypertension, Osteoarthritis ( OA), Rheumatoid Arthritis (RA) Additional Past Medical History / Comment(s): Pt recently admitted to [facility] on with colitis/sepsis/R renal cyst. Other hx: Recurrent pancreatitis, bronchitis, TIA, anemia-unknown cause, migraines, ostoeporosis, past R femur fracture with surgery., History of Any Multi-Drug Resistant Organisms: None Reported Past Surgical History: Appendectomy, Back Surgery, Cholecystectomy, Orthopedic Surgery, Tonsillectomy Additional Past Surgical History / Comment(s): Pancreatic stents-since removed, 6 back surgeries with 2 fusions, right oophorectomy due to ectopic , EGD/colonoscopy, right leg alice inserted d/t fracture, Past Anesthesia/Blood Transfusion Reactions: No Reported Reaction Additional Past Anesthesia/Blood Transfusion Reaction / Comment(s): Pt has received blood in past without reaction. Past Psychological History: No Psychological Hx Reported Smoking Status: Current every day smoker Past Alcohol Use History: None Reported Past Drug Use History: None Reported - Past Family History Father Family Medical History: Cancer, Liver Disease Additional Family Medical History / Comment(s): Father was an alcoholic. He from lung/ liver cancer. Mother Family Medical History: Cancer, CVA/TIA, Hypertension Additional Family Medical History / Comment(s): Mother had breast and colon cancer. She of liver cancer at the age of 78 yrs. Medications and Allergies Home Medications Medication Instructions Recorded Confirmed Type Albuterol Inhaler [Ventolin Hfa 1 - 2 puff INHALATION RT-Q6H PRN 07/15/16 History Inhaler] Albuterol Nebulized [Ventolin 2.5 mg INHALATION RT-QID PRN 08/31/16 04/19/18 History Nebulized] Gabapentin [Neurontin] 800 mg PO TID 08/31/16 04/19/18 History amLODIPine [Norvasc] 10 mg PO DAILY 02/18/18 04/19/18 History Famotidine [Pepcid] 20 mg PO BID #20 tablet 03/16/18 04/19/18 Rx HYDROcodone/APAP 10-325MG [[place] 1 tab PO TID PRN #10 tab 04/16/18 04/19/18 Rx 10-325] HYDROcodone/APAP 5-325MG [[place] 5] 1 - 2 each PO Q6HR PRN #12 tab 04/28/18 Rx Allergies Allergy/AdvReac Type Severity Reaction Status Date / Time No Known Allergies Allergy Verified 05/06/18 04:17 Physical Exam Vitals: Vital Signs Temp Pulse Resp BP Pulse Ox 05/06/18 06:52 98.5 F 66 17 146/71 100 05/06/18 04:14 97.9 F 95 16 126/76 99 Intake and Output 05/05/18 05/06/18 05/06/18 22:59 06:59 14:59 Other: Weight 59.874 kg Constitutional: No acute distress, conversant, pleasant Eyes: Anicteric sclerae, moist conjunctiva, no lid-lag Pupils equal round reactive to light ENMT: NC/AT Oropharynx clear, no erythema, exudates Neck: Supple, FROM, no masses, or JVD No carotid bruits No thyromegaly Lungs: Clear to auscultation Clear to percussion Normal respiratory effort, no accessory muscle use Cardiovascular: Heart regular in rate and rhythm, No murmurs, gallops, or rubs No peripheral edema Abdominal: Soft Epigastric tenderness with voluntary guarding Abdomen moving with respiration Normoactive bowel sounds No hepatomegaly, No splenomegaly No palpable mass No abdominal wall hernia noted Skin: Normal temperature, tone, texture, turgor No induration No subcutaneous nodules No rash, lesions No ulcers Extremities: No digital cyanosis No clubbing Pedal pulses intact and symmetrical Radial pulses intact and symmetrical No calf tenderness Psychiatric: Alert and oriented to person, place and time Appropriate affect fair judgment Neuro Muscles Strength 5/5 in all 4 extremities Sensation to light touch grossly present throughout Cranial nerves II-XII grossly intact No focal sensory deficits Lymphatics: no palpable cervical or supraclavicular , or inguinal lymph nodes Results CBC & Chem 7: 05/06/18 04:50 05/06/18 04:50 Labs: Abnormal Lab Results - Last 24 Hours (Table) 05/06/18 05/06/18 05/06/18 Range/Units 04:50 04:50 06:45 Plt Count 451 H (150-450) k/uL Glucose 128 H (74-99) mg/dL Lipase 1431 H (23-300) U/L Urine Blood Trace H (Negative) Ur Leukocyte Esterase Small H (Negative) Urine Bacteria Rare H (None) /hpf Urine Mucus Rare H (None) /hpf Assessment and Plan Assessment: 52-year-old female with history of recurrent pancreatitis of idiopathic origin admitted as inpatient with anticipated length of stay for more than 48 hours due to acute recurrent idiopathic pancreatitis attack patient had extensive workup done in the past including CAT scan, EUS, MRCP all showing dilatation of the biliary tract. Less than she was evaluated the plan was to have ERCP done as an outpatient and she has not gotten a chance to get that yet. Plan: Acute recurrent idiopathic pancreatitis Keep patient nothing by mouth Aggressive IV fluid hydration Pain control GI consultation stable chronic conditions, Hypertension, COPD DVT prophylaxis Heparin subcu 3 times a day Preformed a thorough record review from recent hospitalization recurrent idiopathic pancreatitis with extensive workup done in the past as summarized above Surrogate decision-maker: CODE STATUS: Full code Discussed with: Patient, ER, rn Anticipated discharge: 48-[address]: Home A total of 60 minutes was spent on the care of this complex patient more than 50 % of the time was spent in counseling and care coordination.
[2018-05-06] MEDS ORDERED: NALOXONE 0.4 MG/ML 1 ML VIAL IV PRN (07:09)
[2018-05-06] MEDS ORDERED: ALBUTEROL NEBULIZED 2.5 MG/3 ML INHALATION PRN (07:11)
[2018-05-06] MEDS: HEPARIN SODIUM,PORCINE 5,000 UNIT/ML 1 ML VIAL SQ SCH ×3 (08:34→23:01)
[2018-05-06] MEDS: GABAPENTIN 400 MG CAP PO SCH ×3 (08:34→21:16)
[2018-05-06] MEDS: LACTATED RINGERS 1,000 ML IV SCH ×4 (08:34→23:02)
[2018-05-06] MEDS: FAMOTIDINE 20 MG TAB PO SCH ×2 (08:35→21:16)
[2018-05-06] MEDS: amLODIPine 10 MG TAB PO SCH (08:35)
[2018-05-06 10:01] VITALS: BMI 20.7
[2018-05-06] MEDS: MORPHINE SULFATE 4 MG/ML SYRINGE IV PRN ×2 (10:31→14:09)
--- NOTE | 2018-05-06 13:38 | CONS ---
CONSULTATION REQUESTING PHYSICIAN: Dr. Russ. REASON FOR CONSULTATION: Acute recurrent pancreatitis. HISTORY OF PRESENT ILLNESS: The patient is 62-year-old pleasant white female with history of acute recurrent pancreatitis with multiple hospitalizations in the last 15 years. She was recently hospitalized a month ago for the same and was discharged home. In fact, the patient was advised to follow up with me in the office, but the appointment has been postponed for next month. In the meantime, she started having abdominal pain mostly in the epigastric area associated with nausea, vomiting, came into the emergency room, was noted to have elevated lipase consistent with acute pancreatitis presently undergoing symptomatic and supportive. She is feeling a bit better this morning. The patient had her 1st episode of pancreatitis about 15 years ago. She was investigated in the past with EGD, ERCP, EUS of the pancreas at [facility] which was about 8 years ago. She also underwent gallbladder surgery around the same time. No history of alcohol use. No family history of pancreatitis. PAST MEDICAL HISTORY: GERD, hypertension, recurrent acute recurrent pancreatitis, history of CVA in the past, COPD, rheumatoid arthritis, osteoarthritis. PAST SURGICAL HISTORY: Gallbladder surgery, ERCP 8 years ago, appendectomy, tonsillectomy, back surgery, EGD, colonoscopy, right oophorectomy. SOCIAL HISTORY: No smoking or alcohol use. FAMILY HISTORY: Unremarkable. MEDICATIONS: At home: Albuterol, Neurontin, Norvasc, Pepcid, [place]. ALLERGIES: NONE. REVIEW OF SYSTEMS: CARDIOPULMONARY: No chest pain, shortness of breath. GENITOURINARY: No dysuria or hematuria. MUSCULOSKELETAL: Unremarkable. SKIN: Unremarkable. ENDOCRINE: Unremarkable. PSYCHIATRIC: Unremarkable. NEUROLOGY: Unremarkable. ENT/VISION: Unremarkable. CONSTITUTIONAL: No recent weight loss. No fever, chills, night sweats. PHYSICAL EXAMINATION: Blood pressure 153/85, pulse is 70, temperature 98. HEENT examination unremarkable. Conjunctivae pink. Sclerae anicteric. Oral cavity, no lesions. NECK: No JVD or lymph node enlargement. HEART: Regular rate and rhythm. Abdomen is soft. Tenderness in the epigastric area. Bowel sounds are positive. No organomegaly. EXTREMITIES: No pedal edema. SKIN: No rashes. NEUROLOGIC: Alert and oriented x3. No focal deficits. LABS: Done today: Lipase 1431. ALT, AST, T bilirubin, alkaline phosphatase are normal. CBC was within normal limits. IMPRESSION: Acute recurrent pancreatitis for the last 15 years duration. Her first episode was 15 years ago. The serum transaminases are completely within normal limits with makes it very unlikely we are dealing with biliary pancreatitis. She is status post gallbladder surgery about 8 years ago for acute recurrent pancreatitis. She was investigated extensively in the past about approximately [address] [facility] including EUS, ERCP with stent placement, but none of the records are available at the time of this dictation. The patient clinically improving. RECOMMENDATIONS: 1. Continue with symptomatic and supportive care. 2. Keep her n.p.o. except for ice chips. 3. Repeat labs in the morning. 4. If labs improve, she can be started on clear liquid diet and can be discharged home in the next 1-2 days. She already has an appointment to see me in the office next month at which time we will refer her to a tertiary center for possible endoscopic ultrasound of the pancreas to investigate this further. Plan was discussed with the patient. She is agreeable to it. Thank you for this consultation. MMODL / IJN: [id number] /
--- NOTE | 2018-05-06 14:31 | P.PN ---
Progress Note - Text Progress Note Date: 05/06/18 62-year-old female with PMH of COPD, history of CVA, GERD, hypertension, rheumatoid arthritis presents the ED for severe abdominal pain, 10 out of 10 in severity, radiating to the back. Abdominal pain is associated with multiple episodes of nausea and vomiting. Patient has been admitted and evaluated multiple times for the same complaint. She was advised to follow-up outpatient for ERCP but was unable to do so. In the ED, patient was noted to be afebrile with no leukocytosis. Her lipase was 1431, increased from 123 on 04/28/2018. Her lipase has been as high as > 20,000 during previous admissions. She is pending evaluation by gastroenterology. AOx3 No LE edema. RRR. Normal S1 S2. No murmurs, rubs or gallops. NTTP. Soft, ND. 1. Acute pancreatitis: Lipase 1431. KUB shows no acute findings. CT AP on 04/28 unremarkable. Will DC Morphine 4 mg IV Q4 PRN and start Dilaudid 1 mg IV Q4 PRN. Continue LR 200 ml/h. NPO and advance diet as tolerated. FU GI consult 2. h/o TIA: Not on medication. Lipid panel shows LDL 119 and TG 223 on 03/2018. Start ASA 81 mg PO QD and Lipitor 40 mg PO QHS. 3. COPD: Stable. Albuterol neb PRN. 4. Hypertension: BP 153/85. Continue Amlodipine 10 mg PO QD. Monitor vitals, adjust medication as necessary. 5. DVT/GI Prophylaxis: Heparin 5000 units SQ TID. Pepcid 20 mg PO BID.
[2018-05-06] MEDS: HYDROmorphone 1 MG/ML 1 ML SYRINGE IVP PRN ×2 (17:56→21:21)
[2018-05-06] MEDS ORDERED: BENZOCAINE 20 % GEL 15 GM TUBE MM PRN (19:19)
[2018-05-06] MEDS: ATORVASTATIN 40 MG TAB PO SCH (21:16)
[2018-05-07] MEDS: HYDROmorphone 1 MG/ML 1 ML SYRINGE IVP PRN ×6 (01:26→20:20)
[2018-05-07] MEDS: LACTATED RINGERS 1,000 ML IV SCH ×4 (03:50→20:27)
[2018-05-07] MEDS: GABAPENTIN 400 MG CAP PO SCH ×3 (08:45→23:09)
[2018-05-07] MEDS: FAMOTIDINE 20 MG TAB PO SCH ×2 (08:45→20:23)
[2018-05-07] MEDS: ASPIRIN 81 MG PO SCH (08:45)
[2018-05-07] MEDS: amLODIPine 10 MG TAB PO SCH (08:45)
[2018-05-07] MEDS: HEPARIN SODIUM,PORCINE 5,000 UNIT/ML 1 ML VIAL SQ SCH ×3 (08:45→23:10)
[2018-05-07] MEDS: HYDROcodone/APAP 10-325MG 1 EACH TAB PO PRN ×3 (12:00→23:58)
--- NOTE | 2018-05-07 12:16 | P.PN ---
Subjective Progress Note Date: 05/07/18 Principal diagnosis: abdominal pain Patient is a 62-year-old female with past medical history of hypertension, COPD, and chronic pancreatitis who presented to the ER with abdominal pain. In the ER she underwent a KUB which was negative. She was slightly tachycardic on arrival with a heart rate of 95. Her lipase was found to be slightly elevated at 1431. She was made nothing by mouth and started on IV fluids and pain medications. She is admitted to the general medical floor for further monitoring. GI was consulted. She was started on a clear liquid diet on 05/06 which exacerbated her pain. Patient seen and examined at bedside. She states that her pain got worse after starting her diet yesterday. She has since backed down and the pain seems to be improving. She denies any nausea or vomiting at this point in time. She states she had 2 bowel movements this morning but they were formed. She denies any chest pain or shortness of breath. She states that she did have her endoscopic ultrasound done at [facility] but has not received results of this. She has not had any further testing. Objective - Vital Signs Vital signs: Vital Signs Temp 98.4 F 05/07/18 07:26 Pulse 97 05/07/18 07:26 Resp 16 05/07/18 07:26 BP 117/78 05/07/18 07:26 Pulse Ox 97 05/07/18 07:26 Intake & Output 05/06/18 05/07/18 05/07/18 18:59 06:59 18:59 Intake Total 840 2480 Balance 840 2480 Weight 59.874 kg Intake: Intake, IV Titration 600 1600 Amount Lactated Ringers 1,000 ml 600 1600 @ 200 mls/hr IV .Q5H [facility] Rx#:[id number] Oral 240 480 Other 400 Other: Voiding Method Toilet # Voids 2 3 - Exam General: non toxic, mild distress, appears at stated age Derm: warm, dry Head: atraumatic, normocephalic, symmetric Eyes: EOMI, no lid lag, anicteric sclera Mouth: no lip lesion, mucus membranes moist Cardiovascular: S1S2 reg, no murmur, positive posterior tibial pulse bilateral, Lungs: CTA bilateral, no rhonchi, no rales , no accessory muscle use Abdominal: soft, + tenderness to palpation. Umbilicus:, no guarding, no appreciable organomegaly Ext: no gross muscle atrophy, no edema, no contractures Neuro: CN II-XI grossly intact, no focal neuro deficits Psych: Alert, oriented, appropriate affect - Labs CBC & Chem 7: 05/06/18 04:50 05/06/18 04:50 Assessment and Plan Assessment: Acute pancreatitis on top of recurrent idiopathic pancreatitis -LR at 150 -Pain control -Antiemetics -GI consult await results of endoscopic ultrasound -Discussed with patient backing down on diet and allowing pancreatic rest. COPD without acute acute exacerbation -Continue as needed bronchodilators Hypertension, controlled -Follow blood pressures -Continue home Norvasc DVT prophylaxis: Heparin Discussed with: Patient, nursing Anticipated discharge: 2-[address]:home A total of 25 minutes was spent on the care of this complex patient more than 50 % of the time was spent in counseling and care coordination.
--- NOTE | 2018-05-07 13:29 | P.PN ---
Subjective Progress Note Date: 05/07/18 Principal diagnosis: Abdominal pain recurrent pancreatitis 62-year-old female with a history of chronic pancreatitis of unclear etiology. Patient reports she had an EUS the first week of April at [facility]. Pancreatic enzymes improved today. Abdominal pain is improved. Afebrile. Requesting diet advancement. Afebrile. Objective - Vital Signs Vital signs: Vital Signs Temp 98.4 F 05/07/18 07:26 Pulse 97 05/07/18 07:26 Resp 16 05/07/18 07:26 BP 117/78 05/07/18 07:26 Pulse Ox 97 05/07/18 07:26 Intake & Output 05/06/18 05/07/18 05/07/18 18:59 06:59 18:59 Intake Total 840 2480 Balance 840 2480 Weight 59.874 kg Intake: Intake, IV Titration 600 1600 Amount Lactated Ringers 1,000 ml 600 1600 @ 200 mls/hr IV .Q5H JOLLY Rx#:[id number] Oral 240 480 Other 400 Other: Voiding Method Toilet # Voids 2 3 - Exam General appearance: The patient is alert, oriented, in no acute distress. HET: Head is normocephalic and atraumatic. Pupils are equal and reactive. Oropharynx is clear without lesions. Neck: Supple without lymphadenopathy. Trachea midline. Heart: S1 S2. Regular rate and rhythm. Lungs: No crackles or wheezes are heard. Abdomen: Soft, very mild midepigastric tenderness, nondistended with bowel sounds. No peritoneal signs. No palpable organomegaly or masses. Extremities: Normal skin color and turgor. No cyanosis, rash, ulceration, clubbing, or edema. Radial and pedal pulses are 2/4 bilaterally. Neurological: No focal deficits. Strength and sensation are grossly intact. - Labs CBC & Chem 7: 05/06/18 04:50 05/06/18 04:50 Assessment and Plan (1) Idiopathic pancreatitis Narrative/Plan: 62-year-old female with a history of idiopathic acute on chronic pancreatitis with reported recent EUS performed at [facility] first week of April. Pancreatic enzymes abdominal pain improving. Current Visit: Yes Status: Acute Code(s): K85.00 - IDIOPATHIC ACUTE PANCREATITIS WITHOUT NECROSIS OR INFECTION SNOMED Code(s): 37988095 Plan: 1. GI office was called [facility] GI office will make attempts today to notify [facility] and obtain EUS for review. 2. Will advance to low-fat diet. Assessment and plan a care discussed with Dr. Simpson
[2018-05-07] MEDS: ATORVASTATIN 40 MG TAB PO SCH (20:23)
[2018-05-08] MEDS: HYDROmorphone 1 MG/ML 1 ML SYRINGE IVP PRN ×3 (00:30→08:44)
[2018-05-08 01:19] VITALS: RESP 16
[2018-05-08] MEDS: HYDROcodone/APAP 10-325MG 1 EACH TAB PO PRN ×3 (05:58→17:09)
[2018-05-08] MEDS: LACTATED RINGERS 1,000 ML IV SCH ×3 (07:33→15:06)
[2018-05-08 07:43] VITALS: BP 121/76; PULSE 72; TEMP 97.7
[2018-05-08] MEDS: GABAPENTIN 400 MG CAP PO SCH ×2 (08:44→15:25)
[2018-05-08] MEDS: HEPARIN SODIUM,PORCINE 5,000 UNIT/ML 1 ML VIAL SQ SCH ×2 (08:44→15:25)
[2018-05-08] MEDS: FAMOTIDINE 20 MG TAB PO SCH (08:45)
[2018-05-08] MEDS: amLODIPine 10 MG TAB PO SCH (08:45)
[2018-05-08] MEDS: ASPIRIN 81 MG PO SCH (08:45)
[2018-05-08 09:10] LABS: ALT 22 U/L (9-52); AST 15 U/L (14-36); Albumin 4.1 g/dL (3.5-5.0); Alkaline Phosphatase 95 U/L (38-126); Anion Gap 10 mmol/L; Blood Urea Nitrogen 9 mg/dL (7-17); Carbon Dioxide 27 mmol/L (22-30); Chloride 102 mmol/L (98-107); Glucose 104 mg/dL (74-99); Magnesium 1.6 mg/dL (1.6-2.3); Potassium 4.9 mmol/L (3.5-5.1); Sodium 139 mmol/L (137-145); Total Bilirubin 0.3 mg/dL (0.2-1.3); Total Protein 7.2 g/dL (6.3-8.2)
--- NOTE | 2018-05-08 10:33 | P.PN ---
Subjective Progress Note Date: 05/08/18 Principal diagnosis: Abdominal pain recurrent pancreatitis 62-year-old female with a history of chronic pancreatitis of unclear etiology. Patient reports she had an EUS the first week of April at [facility]. GI office working on obtaining records. Pancreatic enzymes improved yesterday. Abdominal pain is improved. Afebrile. Tolerating diet advancement. Objective - Vital Signs Vital signs: Vital Signs Temp 97.7 F 05/08/18 07:42 Pulse 72 05/08/18 07:42 Resp 16 05/08/18 07:42 BP 121/76 05/08/18 07:42 Pulse Ox 97 05/08/18 07:42 Intake & Output 05/07/18 05/08/18 05/08/18 18:59 06:59 18:59 Intake Total 1200 3600 Balance 1200 3600 Intake: Intake, IV Titration 1200 2400 Amount Lactated Ringers 1,000 ml 1200 2400 @ 150 mls/hr IV .Q6H40M JOLLY Rx#:[id number] Oral 1200 Other: Voiding Method Toilet Toilet Toilet # Voids 4 - Exam General appearance: The patient is alert, oriented, in no acute distress. HET: Head is normocephalic and atraumatic. Pupils are equal and reactive. Oropharynx is clear without lesions. Neck: Supple without lymphadenopathy. Trachea midline. Heart: S1 S2. Regular rate and rhythm. Lungs: No crackles or wheezes are heard. Abdomen: Soft, very mild midepigastric tenderness, nondistended with bowel sounds. No peritoneal signs. No palpable organomegaly or masses. Extremities: Normal skin color and turgor. No cyanosis, rash, ulceration, clubbing, or edema. Radial and pedal pulses are 2/4 bilaterally. Neurological: No focal deficits. Strength and sensation are grossly intact. - Labs CBC & Chem 7: 05/06/18 04:50 05/08/18 07:58 Labs: Abnormal Lab Results - Last 24 Hours (Table) 05/08/18 Range/Units 07:58 Glucose 104 H (74-99) mg/dL Assessment and Plan (1) Idiopathic pancreatitis Narrative/Plan: 62-year-old female with a history of idiopathic acute on chronic pancreatitis with reported recent EUS performed at [facility] first week of April. Pancreatic enzymes abdominal pain improving. Current Visit: Yes Status: Acute Code(s): K85.00 - IDIOPATHIC ACUTE PANCREATITIS WITHOUT NECROSIS OR INFECTION SNOMED Code(s): 72388480 Plan: 1. From a GI standpoint agreeable for discharge. Return to office in 2 weeks. GI office is working on obtaining EUS records will discuss further in office follow-up. Assessment and plan a care discussed with Dr. Simpson
[2018-05-08] MEDS ORDERED: traMADol 50 MG TAB PO PRN (13:16)
--- NOTE | 2018-05-08 17:09 | P.DS ---
Providers Date of admission: 05/06/18 05:35 Expected date of discharge: 05/08/18 Attending physician: Corky Purvis MD Consults: 05/06/18 07:10 Consult Physician Routine Consulting Provider: Zoya Clark Consult Reason/Comments: pancreatitist Do you want consulting provider notified?: Yes Primary care physician: [facility] Course: Discharge Diagnosis: Acute pancreatitis with history of recurrent idiopathic pancreatitis COPD without acute exacerbation Hypertension Hospital Course: Patient is a 62-year-old female with past medical history of hypertension, COPD, and chronic pancreatitis who presented to the ER with abdominal pain. In the ER she underwent a KUB which was negative. She was slightly tachycardic on arrival with a heart rate of 95. Her lipase was found to be slightly elevated at 1431. She was made nothing by mouth and started on IV fluids and pain medications. She is admitted to the general medical floor for further monitoring. GI was consulted. She was started on a clear liquid diet on 05/06 which exacerbated her pain. By the afternoon of 05/07 she was feeling much improved. She was able to tolerate a soft diet. She was taking in oral medications. Her pain had started to improve by 05/08. She was determined stable for discharge home. GI is working on locating results of endoscopic ultrasound performed at [facility]. She will need to follow -up with Dr. Clark in 2 weeks regarding further care of her recurrent pancreatitis. She was sent home with a prescription for Ultram 2 tablets every 4 hours as needed, #50 for 7 days. Maps was checked. Opiate start talking form was filled out. Patient was given instructions by myself. Patient seen and examined at bedside. Pain improved, tolerating diet, up and walking in hallways. Vital signs reviewed and stable. General: non toxic, no distress, appears at stated age Derm: warm, dry Head: atraumatic, normocephalic, symmetric Eyes: EOMI, no lid lag, anicteric sclera Mouth: no lip lesion, mucus membranes moist Cardiovascular: S1S2 reg, no murmur, positive posterior tibial pulse bilateral, Lungs: CTA bilateral, no rhonchi, no rales , no accessory muscle use Abdominal: soft, nontender to palpation, no guarding, no appreciable organomegaly Ext: no gross muscle atrophy, no edema, no contractures Neuro: CN II-XI grossly intact, no focal neuro deficits Psych: Alert, oriented, appropriate affect A total of 25 minutes of time were spent preparing this complex discharge summary . Patient Condition at Discharge: Stable Plan - Discharge Summary Discharge Rx Participant: Yes New Discharge Prescriptions: New Aspirin 81 mg PO DAILY chew Atorvastatin [Lipitor] 40 mg PO HS #30 tab traMADol HCl [Ultram] 100 mg PO Q6HR PRN 7 Days #50 tab PRN Reason: Pain Continue Albuterol Inhaler [Ventolin Hfa Inhaler] 1 - 2 puff INHALATION RT-Q6H PRN PRN Reason: Shortness Of Breath Gabapentin [Neurontin] 800 mg PO TID Albuterol Nebulized [Ventolin Nebulized] 2.5 mg INHALATION RT-QID PRN PRN Reason: Shortness Of Breath amLODIPine [Norvasc] 10 mg PO DAILY Famotidine [Pepcid] 20 mg PO BID #20 tablet HYDROcodone/APAP 10-325MG [[place] 10-325] 1 tab PO TID PRN #10 tab PRN Reason: Severe Pain Discharge Medication List Albuterol Inhaler [Ventolin Hfa Inhaler] 1 - 2 puff INHALATION RT-Q6H PRN [History] Albuterol Nebulized [Ventolin Nebulized] 2.5 mg INHALATION RT-QID PRN 08/31/16 [ History] Gabapentin [Neurontin] 800 mg PO TID 08/31/16 [History] amLODIPine [Norvasc] 10 mg PO DAILY 02/18/18 [History] Famotidine [Pepcid] 20 mg PO BID #20 tablet 03/16/18 [Rx] HYDROcodone/APAP 10-325MG [[place] 10-325] 1 tab PO TID PRN #10 tab 04/16/18 [Rx] Aspirin 81 mg PO DAILY chew 05/08/18 [Rx] Atorvastatin [Lipitor] 40 mg PO HS #30 tab 05/08/18 [Rx] traMADol HCl [Ultram] 100 mg PO Q6HR PRN 7 Days #50 tab 05/08/18 [Rx] Follow up Appointment(s)/Referral(s): Zoya Clark MD [STAFF PHYSICIAN] - 05/23/18 12:30 pm [facility], [NON-STAFF] - Reyes Russ MD [Primary Care Provider] - 05/14/18 9:15 am Activity/Diet/Wound Care/Special Instructions: low fat diet Activity as tolerated Discharge Disposition: HOME SELF-CARE
== END 2018-05-08 18:40 | disposition home health service (06) | DRG 440 ==
LOC: EC 04:12 → 3SUR 05:35
PROVIDERS: ADMIT Internal Medicine; ATTEND Internal Medicine
DX: K85.00 Idiopathic acute pancreatitis without necrosis or infection (principal); K86.1 Other chronic pancreatitis; F17.210 Nicotine dependence, cigarettes, uncomplicated; I10 Essential (primary) hypertension; J44.9 Chronic obstructive pulmonary disease, unspecified; K21.9 Gastro-esophageal reflux disease without esophagitis; M06.9 Rheumatoid arthritis, unspecified; M19.90 Unspecified osteoarthritis, unspecified site; G43.909 Migraine, unspecified, not intractable, without status migrainosus; M81.0 Age-related osteoporosis without current pathological fracture; Z79.899 Other long term (current) drug therapy; Z86.73 Personal history of transient ischemic attack (TIA), and cerebral infarction without residual deficits; Z90.49 Acquired absence of other specified parts of digestive tract; Z90.721 Acquired absence of ovaries, unilateral; Z82.49 Family history of ischemic heart disease and other diseases of the circulatory system; Z81.1 Family history of alcohol abuse and dependence; Z80.0 Family history of malignant neoplasm of digestive organs; Z80.3 Family history of malignant neoplasm of breast; Z83.79 Family history of other diseases of the digestive system
CPT/HCPCS: 36415; 74018; 80053; 81001; 83690; 83735; 85025; 93005; 96361; 96374; 99285

== ENCOUNTER 2018-05-12 11:13 | Emergency (ER) | payer BC ==
[2018-05-12] MEDS ORDERED: SODIUM CHLORIDE 0.9% 500 ML IV STA (11:18)
[2018-05-12] MEDS ORDERED: SODIUM CHLORIDE 0.9% 1,000 ML IV STA (11:18)
[2018-05-12] MEDS ORDERED: HYDROmorphone 1 MG/ML 1 ML SYRINGE IVP STA (11:38)
[2018-05-12] MEDS ORDERED: ONDANSETRON 4 MG/2 ML VIAL IVP STA (11:38)
--- NOTE | 2018-05-12 11:42 | ED ---
Abdominal Pain HPI - General Chief Complaint: Abdominal Pain Stated Complaint: ABD Pain Time Seen by Provider: 05/12/18 11:15 Source: patient, EMS, RN notes reviewed Mode of arrival: EMS Limitations: no limitations - History of Present Illness Initial Comments: 62-year-old female presents emergency Department chief complaint of abdominal pain. She states she has chronic pancreatitis states in the last 24 hours she had increased pain nausea vomiting. Patient states that is very similar for her pancreatitis. She has had a recent admission in which she states she was doing better and was discharged. She attempted take her home pain medication that she vomited them back up. Patient denies any chest pain or shortness breath. Denies fever, chills, back pain or any flank pain. - Related Data Home Medications Medication Instructions Recorded Confirmed Albuterol Inhaler [Ventolin Hfa 1 - 2 puff INHALATION RT-Q6H PRN 07/15/16 Inhaler] Albuterol Nebulized [Ventolin 2.5 mg INHALATION RT-QID PRN 08/31/16 05/12/18 Nebulized] Gabapentin [Neurontin] 800 mg PO TID 08/31/16 05/12/18 amLODIPine [Norvasc] 10 mg PO DAILY 02/18/18 05/12/18 Previous Rx's Medication Instructions Recorded Famotidine [Pepcid] 20 mg PO BID #20 tablet 03/16/18 HYDROcodone/APAP 10-325MG [[place] 1 tab PO TID PRN #10 tab 04/16/18 10-325] Aspirin 81 mg PO DAILY chew 05/08/18 Atorvastatin [Lipitor] 40 mg PO HS #30 tab 05/08/18 traMADol HCl [Ultram] 100 mg PO Q6HR PRN 7 Days #50 tab 05/08/18 Ondansetron Odt [Zofran Odt] 4 mg PO Q8HR PRN #10 tab 05/12/18 Allergies Allergy/AdvReac Type Severity Reaction Status Date / Time No Known Allergies Allergy Verified 05/06/18 13:41 Review of Systems ROS Statement: Those systems with pertinent positive or pertinent negative responses have been documented in the HPI. ROS Other: All systems not noted in ROS Statement are negative. Past Medical History Past Medical History: COPD, CVA/TIA, GERD/Reflux, Hypertension, Osteoarthritis ( OA), Rheumatoid Arthritis (RA) Additional Past Medical History / Comment(s): Pt recently admitted to [facility] on with colitis/sepsis/R renal cyst. Other hx: Recurrent pancreatitis, bronchitis, TIA, anemia-unknown cause, migraines, ostoeporosis, past R femur fracture with surgery., History of Any Multi-Drug Resistant Organisms: None Reported Past Surgical History: Appendectomy, Back Surgery, Cholecystectomy, Orthopedic Surgery, Tonsillectomy Additional Past Surgical History / Comment(s): Pancreatic stents-since removed, 6 back surgeries with 2 fusions, right oophorectomy due to ectopic , EGD/colonoscopy, right leg alice inserted d/t fracture, Past Anesthesia/Blood Transfusion Reactions: No Reported Reaction Additional Past Anesthesia/Blood Transfusion Reaction / Comment(s): Pt has received blood in past without reaction. Past Psychological History: No Psychological Hx Reported Smoking Status: Current every day smoker Past Alcohol Use History: None Reported Past Drug Use History: None Reported - Past Family History Father Family Medical History: Cancer, Liver Disease Additional Family Medical History / Comment(s): Father was an alcoholic. He from lung/ liver cancer. Mother Family Medical History: Cancer, CVA/TIA, Hypertension Additional Family Medical History / Comment(s): Mother had breast and colon cancer. She of liver cancer at the age of 78 yrs. General Exam Limitations: no limitations General appearance: alert, in no apparent distress Head exam: Present: atraumatic, normocephalic, normal inspection Respiratory exam: Present: normal lung sounds bilaterally. Absent: respiratory distress, wheezes, rales, rhonchi, stridor Cardiovascular Exam: Present: regular rate, normal rhythm, normal heart sounds. Absent: systolic murmur, diastolic murmur, rubs, gallop, clicks GI/Abdominal exam: Present: soft, tenderness (Moderate midabdominal tenderness) , normal bowel sounds. Absent: distended, guarding, rebound, rigid Back exam: Absent: CVA tenderness (R), CVA tenderness (L) Skin exam: Present: warm, dry, intact, normal color. Absent: rash Course Vital Signs 05/12/18 11:16 Temperature 97.8 F Pulse Rate 95 Respiratory 20 Rate Blood Pressure 120/75 O2 Sat by Pulse 97 Oximetry - Reevaluation(s) Reevaluation #1: 05/12/18 13:12 This patient was reevaluated and updated and results. She did state that she feels improved. I did inform that she will be discharged. Patient is requesting additional meds prior to discharge. Medical Decision Making - Medical Decision Making 62-year-old female presented for chronic abdominal pain, chronic pancreatitis. Amylase and lipase are within normal at this time. She was improved after IV fluids and antiemetics and pain medication. Did inform her of the lab results. Patient states she'll follow-up with her PCP tomorrow return for any worsening symptoms. - Lab Data Result diagrams: 05/12/18 12:10 05/12/18 12:10 Lab Results 05/12/18 05/12/18 Range/Units 12:10 12:10 WBC 8.3 (3.8-10.6) k/uL RBC 5.23 (3.80-5.40) m/uL Hgb 14.5 (11.4-16.0) gm/dL Hct 45.2 (34.0-46.0) % MCV 86.4 (80.0-100.0) fL MCH 27.8 (25.0-35.0) pg MCHC 32.2 (31.0-37.0) g/dL RDW 14.2 (11.5-15.5) % Plt Count 445 (150-450) k/uL Neutrophils % 81 % Lymphocytes % 14 % Monocytes % 4 % Eosinophils % 0 % Basophils % 0 % Neutrophils # 6.6 (1.3-7.7) k/uL Lymphocytes # 1.1 (1.0-4.8) k/uL Monocytes # 0.3 (0-1.0) k/uL Eosinophils # 0.0 (0-0.7) k/uL Basophils # 0.0 (0-0.2) k/uL Sodium 142 (137-145) mmol/L Potassium 3.8 (3.5-5.1) mmol/L Chloride 108 H (98-107) mmol/L Carbon Dioxide 21 L (22-30) mmol/L Anion Gap 13 mmol/L BUN 17 (7-17) mg/dL Creatinine 0.89 (0.52-1.04) mg/dL Est GFR (CKD-EPI)AfAm 80 (>60 ml/min/1.73 sqM) Est GFR (CKD-EPI)NonAf 70 (>60 ml/min/1.73 sqM) Glucose 162 H (74-99) mg/dL Calcium 10.1 (8.4-10.2) mg/dL Total Bilirubin 0.6 (0.2-1.3) mg/dL AST 17 (14-36) U/L ALT 23 (9-52) U/L Alkaline Phosphatase 84 (38-126) U/L Total Protein 7.8 (6.3-8.2) g/dL Albumin 4.5 (3.5-5.0) g/dL Amylase 47 (30-110) U/L Lipase 90 (23-300) U/L Disposition Clinical Impression: History of pancreatitis, Abdominal pain Disposition: HOME SELF-CARE Condition: Stable Instructions: Abdominal Pain (ED) Additional Instructions: Please return to the Emergency Department if symptoms worsen or any other concerns. Prescriptions: Ondansetron Odt [Zofran Odt] 4 mg PO Q8HR PRN #10 tab PRN Reason: Nausea Is patient prescribed a controlled substance at d/c from ED?: No Referrals: Reyes Russ MD [Primary Care Provider] - 1-2 days Time of Disposition: 13:14
[2018-05-12 12:28] LABS: Basophils % (A) 0 %; Eosinophils % (A) 0 %; HCT 45.2 % (34.0-46.0); HGB 14.5 gm/dL (11.4-16.0); Lymphocytes # (A) 1.1 k/uL (1.0-4.8); Lymphocytes % (A) 14 %; MCH 27.8 pg (25.0-35.0); MCHC 32.2 g/dL (31.0-37.0); MCV 86.4 fL (80.0-100.0); Mean Platelet Volume 6.4; Monocytes # (A) 0.3 k/uL (0-1.0); Monocytes % (A) 4 %; Neutrophils # (A) 6.6 k/uL (1.3-7.7); Neutrophils % (A) 81 %; Platelet Count 445 k/uL (150-450); RBC 5.23 m/uL (3.80-5.40); RDW 14.2 % (11.5-15.5); WBC 8.3 k/uL (3.8-10.6)
[2018-05-12 12:37] LABS: Albumin 4.5 g/dL (3.5-5.0); Calcium 10.1 mg/dL (8.4-10.2); Potassium 3.8 mmol/L (3.5-5.1); Total Bilirubin 0.6 mg/dL (0.2-1.3); Total Protein 7.8 g/dL (6.3-8.2)
[2018-05-12] MEDS ORDERED: diphenhydrAMINE 50 MG/ML 1 ML VIAL IVP STA (13:12)
[2018-05-12] MEDS ORDERED: METOCLOPRAMIDE 5 MG/ML 2 ML VIAL IVP STA (13:12)
[2018-05-12] MEDS ORDERED: HYDROmorphone 0.5 MG/0.5 ML SYRINGE IVP STA (13:12)
[2018-05-12] MEDS ORDERED: ONDANSETRON 4 MG ODT STARTER PACK 2 TAB BTL PO STA (13:14)
[2018-05-12 13:19] VITALS: BP 147/69; PULSE 71; RESP 18; TEMP 99.1
== END 2018-05-12 13:55 | disposition home or self-care (01) ==
LOC: EC 11:13
DX: R10.9 Unspecified abdominal pain (principal); R11.2 Nausea with vomiting, unspecified; G89.29 Other chronic pain; J44.9 Chronic obstructive pulmonary disease, unspecified; I10 Essential (primary) hypertension; F17.200 Nicotine dependence, unspecified, uncomplicated; Z79.899 Other long term (current) drug therapy; Z87.19 Personal history of other diseases of the digestive system; Z86.73 Personal history of transient ischemic attack (TIA), and cerebral infarction without residual deficits
CPT/HCPCS: 36415; 80053; 82150; 83690; 85025; 99284; 96374; 96375 ×3; 96376 ×2; 96361; J1200; J2765; J2405; J1170 ×2; S0119

== ENCOUNTER 2018-06-04 14:25 | Emergency (ER) | payer BC ==
[2018-06-04 14:29] VITALS: RESP 18
[2018-06-04] MEDS ORDERED: MORPHINE SULFATE 4 MG/ML SYRINGE IV STA (14:34)
[2018-06-04] MEDS ORDERED: SODIUM CHLORIDE 0.9% 1,000 ML IV STA (14:34)
[2018-06-04] MEDS ORDERED: ONDANSETRON 4 MG/2 ML VIAL IVP STA (14:34)
[2018-06-04] MEDS ORDERED: FAMOTIDINE 20 MG/2 ML VIAL IV STA (14:35)
--- NOTE | 2018-06-04 14:38 | ED ---
General Adult HPI - General Chief complaint: Abdominal Pain Stated complaint: Abd pain Time Seen by Provider: 06/04/18 14:30 Source: patient, RN notes reviewed Limitations: no limitations - History of Present Illness Initial comments: 62-year-old female with a past medical history for peritonitis, presented to the emergency room today with chief complaint of increased upper abdominal pain and nausea and vomiting. Patient does admit that the symptoms are consistent with palpitations that she's had in the past. She states that she's been unable to keep anything down for the past 2 days at home. Patient states she's tried some nausea medication with little relief. Patient states pain is located in the epigastric area. Denies any other complaints or symptoms. Patient denies any recent fever, chills, shortness of breath, chest pain, numbness or tingling, dysuria or hematuria, constipation or diarrhea, headaches or visual changes, or any other complaints. - Related Data Home Medications Medication Instructions Recorded Confirmed Albuterol Inhaler [Ventolin Hfa 1 - 2 puff INHALATION RT-Q6H PRN 07/15/16 Inhaler] Albuterol Nebulized [Ventolin 2.5 mg INHALATION RT-QID PRN 08/31/16 06/04/18 Nebulized] amLODIPine [Norvasc] 10 mg PO DAILY 02/18/18 06/04/18 Gabapentin 800 mg PO QID 06/04/18 06/04/18 Promethazine [Phenergan] 25 mg PO ONCE 06/04/18 06/04/18 Previous Rx's Medication Instructions Recorded Famotidine [Pepcid] 20 mg PO BID #20 tablet 03/16/18 HYDROcodone/APAP 10-325MG [[place] 1 tab PO TID PRN #10 tab 04/16/18 10-325] Ondansetron Odt [Zofran ODT] 4 mg PO Q8HR PRN #20 tab 06/04/18 Allergies Allergy/AdvReac Type Severity Reaction Status Date / Time No Known Allergies Allergy Verified 06/04/18 14:51 Review of Systems ROS Statement: Those systems with pertinent positive or pertinent negative responses have been documented in the HPI. ROS Other: All systems not noted in ROS Statement are negative. Past Medical History Past Medical History: COPD, CVA/TIA, GERD/Reflux, Hypertension, Osteoarthritis ( OA), Rheumatoid Arthritis (RA) Additional Past Medical History / Comment(s): Pt recently admitted to [facility] on with colitis/sepsis/R renal cyst. Other hx: Recurrent pancreatitis, bronchitis, TIA, anemia-unknown cause, migraines, ostoeporosis, past R femur fracture with surgery., History of Any Multi-Drug Resistant Organisms: None Reported Past Surgical History: Appendectomy, Back Surgery, Cholecystectomy, Orthopedic Surgery, Tonsillectomy Additional Past Surgical History / Comment(s): Pancreatic stents-since removed, 6 back surgeries with 2 fusions, right oophorectomy due to ectopic , EGD/colonoscopy, right leg alice inserted d/t fracture, Past Anesthesia/Blood Transfusion Reactions: No Reported Reaction Additional Past Anesthesia/Blood Transfusion Reaction / Comment(s): Pt has received blood in past without reaction. Past Psychological History: No Psychological Hx Reported Smoking Status: Current every day smoker Past Alcohol Use History: None Reported Past Drug Use History: None Reported - Past Family History Father Family Medical History: Cancer, Liver Disease Additional Family Medical History / Comment(s): Father was an alcoholic. He from lung/ liver cancer. Mother Family Medical History: Cancer, CVA/TIA, Hypertension Additional Family Medical History / Comment(s): Mother had breast and colon cancer. She of liver cancer at the age of 78 yrs. General Exam - General Exam Comments Initial Comments: General: The patient is awake and alert, in no distress, and does not appear acutely ill. Eye: Extra-ocular movements are intact. No nystagmus. There is normal conjunctiva bilaterally. No signs of icterus. Ears, nose, mouth and throat: There are moist mucous membranes and no oral lesions. Neck: The neck is supple, there is no tenderness or JVD. Cardiovascular: There is a regular rate and rhythm. No murmur, rub or gallop is appreciated. Respiratory: Lungs are clear to auscultation, respirations are non-labored, breath sounds are equal. No wheezes, stridor, rales, or rhonchi. Gastrointestinal: Abdomen soft on palpation. Patient does have tenderness epigastric. No rebound, guarding or CVA tenderness. Musculoskeletal: Normal ROM, no tenderness. Sensation intact. Neurological: A&O x 3. CN II-XII intact, There are no obvious motor or sensory deficits. Coordination appears grossly intact. Speech is normal. Skin: Skin is warm and dry and no rashes or lesions are noted. Psychiatric: Cooperative, appropriate mood & affect, normal judgment. Limitations: no limitations Course Vital Signs 06/04/18 14:26 Temperature 98.6 F Pulse Rate 96 Respiratory 18 Rate Blood Pressure 158/79 O2 Sat by Pulse 98 Oximetry Medical Decision Making - Medical Decision Making Patient examined at this time shows no signs of distress she is resting comfortable. Patient doesn't improvement after medication given here in the emergency room. Patient's labs been reviewed shows normal amylase lipase. Patient feels comfortable being discharged home at this time is advised follow- up with family physician over the next 2 days. Will be given Zofran for her symptoms. Advised to return if symptoms increase or worsen. She states understanding and is in agreement. - Lab Data Result diagrams: 06/04/18 15:22 06/04/18 15:22 Lab Results 06/04/18 06/04/18 Range/Units 15:22 15:22 WBC 9.2 (3.8-10.6) k/uL RBC 5.80 H (3.80-5.40) m/uL Hgb 16.6 H (11.4-16.0) gm/dL Hct 51.0 H (34.0-46.0) % MCV 88.0 (80.0-100.0) fL MCH 28.7 (25.0-35.0) pg MCHC 32.6 (31.0-37.0) g/dL RDW 14.4 (11.5-15.5) % Plt Count 397 (150-450) k/uL Neutrophils % 67 % Lymphocytes % 25 % Monocytes % 5 % Eosinophils % 2 % Basophils % 0 % Neutrophils # 6.2 (1.3-7.7) k/uL Lymphocytes # 2.3 (1.0-4.8) k/uL Monocytes # 0.5 (0-1.0) k/uL Eosinophils # 0.2 (0-0.7) k/uL Basophils # 0.0 (0-0.2) k/uL Sodium 138 (137-145) mmol/L Potassium 3.4 L (3.5-5.1) mmol/L Chloride 108 H (98-107) mmol/L Carbon Dioxide 21 L (22-30) mmol/L Anion Gap 9 mmol/L BUN 12 (7-17) mg/dL Creatinine 0.62 (0.52-1.04) mg/dL Est GFR (CKD-EPI)AfAm >90 (>60 ml/min/1.73 sqM) Est GFR (CKD-EPI)NonAf >90 (>60 ml/min/1.73 sqM) Glucose 114 H (74-99) mg/dL Calcium 9.4 (8.4-10.2) mg/dL Total Bilirubin 0.4 (0.2-1.3) mg/dL AST 21 (14-36) U/L ALT 21 (9-52) U/L Alkaline Phosphatase 98 (38-126) U/L Total Protein 7.2 (6.3-8.2) g/dL Albumin 3.9 (3.5-5.0) g/dL Amylase 53 (30-110) U/L Lipase 89 (23-300) U/L Disposition Clinical Impression: Nausea & vomiting, Abdominal pain Disposition: HOME SELF-CARE Condition: Good Instructions: Abdominal Pain (ED) Additional Instructions: Please use medication as discussed. Please follow-up with family doctor in the next 2 days of symptoms have not improved. Please return to emergency room if the symptoms increase or worsen or for any other concerns. Prescriptions: Ondansetron Odt [Zofran ODT] 4 mg PO Q8HR PRN #20 tab PRN Reason: Nausea Is patient prescribed a controlled substance at d/c from ED?: No Referrals: Reyes Russ MD [Primary Care Provider] - 1-2 days Time of Disposition: 16:32
[2018-06-04 15:52] LABS: ALT 21 U/L (9-52); AST 21 U/L (14-36); Albumin 3.9 g/dL (3.5-5.0); Alkaline Phosphatase 98 U/L (38-126); Amylase 53 U/L (30-110); Anion Gap 9 mmol/L; Blood Urea Nitrogen 12 mg/dL (7-17); Calcium 9.4 mg/dL (8.4-10.2); Carbon Dioxide 21 mmol/L (22-30); Chloride 108 mmol/L (98-107); Glucose 114 mg/dL (74-99); Lipase 89 U/L (23-300); Potassium 3.4 mmol/L (3.5-5.1); Sodium 138 mmol/L (137-145); Total Bilirubin 0.4 mg/dL (0.2-1.3); Total Protein 7.2 g/dL (6.3-8.2)
[2018-06-04 15:54] LABS: Basophils % (A) 0 %; Eosinophils # (A) 0.2 k/uL (0-0.7); Eosinophils % (A) 2 %; HGB 16.6 gm/dL (11.4-16.0); Lymphocytes # (A) 2.3 k/uL (1.0-4.8); Lymphocytes % (A) 25 %; MCH 28.7 pg (25.0-35.0); MCHC 32.6 g/dL (31.0-37.0); Monocytes # (A) 0.5 k/uL (0-1.0); Monocytes % (A) 5 %; Neutrophils # (A) 6.2 k/uL (1.3-7.7); Neutrophils % (A) 67 %; Platelet Count 397 k/uL (150-450); RDW 14.4 % (11.5-15.5); WBC 9.2 k/uL (3.8-10.6)
[2018-06-04 16:57] VITALS: BP 177/87; PULSE 78; TEMP 98.2
== END 2018-06-04 16:56 | disposition home or self-care (01) ==
LOC: EC 14:25
DX: R11.2 Nausea with vomiting, unspecified (principal); R10.13 Epigastric pain; J44.9 Chronic obstructive pulmonary disease, unspecified; I10 Essential (primary) hypertension; F17.200 Nicotine dependence, unspecified, uncomplicated; Z79.899 Other long term (current) drug therapy; Z86.69 Personal history of other diseases of the nervous system and sense organs; Z90.49 Acquired absence of other specified parts of digestive tract; Z80.0 Family history of malignant neoplasm of digestive organs
CPT/HCPCS: 36415; 80053; 82150; 83690; 85025; 99284; 96374; 96375 ×2; 96361; J2270; J2405

== ENCOUNTER 2018-06-11 11:35 | Inpatient (IN) | payer BC ==
[2018-06-11] MEDS ORDERED: HYDROmorphone 1 MG/ML 1 ML SYRINGE IVP STA ×2 (11:43→15:11)
[2018-06-11] MEDS ORDERED: ONDANSETRON 4 MG/2 ML VIAL IVP STA (11:43)
[2018-06-11] MEDS ORDERED: SODIUM CHLORIDE 0.9% 500 ML 500 ML IV STA (11:43)
[2018-06-11] MEDS ORDERED: SODIUM CHLORIDE 0.9% 1,000 ML IV STA (11:43)
[2018-06-11 13:16] LABS: Basophils % (A) 0 %; Eosinophils # (A) 0.3 k/uL (0-0.7); Eosinophils % (A) 2 %; HCT 48.8 % (34.0-46.0); Lymphocytes # (A) 2.5 k/uL (1.0-4.8); Lymphocytes % (A) 17 %; MCH 28.6 pg (25.0-35.0); MCHC 32.7 g/dL (31.0-37.0); MCV 87.5 fL (80.0-100.0); Mean Platelet Volume 7.4; Monocytes # (A) 0.5 k/uL (0-1.0); Monocytes % (A) 4 %; Neutrophils # (A) 11.1 k/uL (1.3-7.7); Neutrophils % (A) 76 %; Platelet Count 500 k/uL (150-450); RBC 5.57 m/uL (3.80-5.40); RDW 14.6 % (11.5-15.5); WBC 14.6 k/uL (3.8-10.6)
--- NOTE | 2018-06-11 13:49 | ED ---
Abdominal Pain HPI - General Chief Complaint: Abdominal Pain Stated Complaint: Abd pain Time Seen by Provider: 06/11/18 11:42 Source: patient, RN notes reviewed Mode of arrival: ambulatory Limitations: no limitations - History of Present Illness Initial Comments: This a 62-year-old female presents emergency Department chief complaint abdominal pain. Patient states that she was woke up with a midabdominal pain late last night. Patient states that she's had nausea vomiting ever since. She states it feels like her chronic pancreatitis issues. Patient denies any diarrhea, constipation, fever, chills, chest pain, shortness breath, headache or dizziness. She denies any recent abdominal procedures she has had history of cholecystectomy and appendectomy. - Related Data Home Medications Medication Instructions Recorded Confirmed Albuterol Inhaler [Ventolin Hfa 1 - 2 puff INHALATION RT-Q6H PRN 07/15/16 Inhaler] Albuterol Nebulized [Ventolin 2.5 mg INHALATION RT-QID PRN 08/31/16 06/11/18 Nebulized] amLODIPine [Norvasc] 10 mg PO DAILY 02/18/18 06/11/18 Gabapentin 800 mg PO QID 06/04/18 06/11/18 traMADol HCL [Ultram] 100 mg PO DAILY PRN 06/11/18 06/11/18 Previous Rx's Medication Instructions Recorded Famotidine [Pepcid] 20 mg PO BID #20 tablet 03/16/18 HYDROcodone/APAP 10-325MG [[place] 1 tab PO TID PRN #10 tab 04/16/18 10-325] Allergies Allergy/AdvReac Type Severity Reaction Status Date / Time No Known Allergies Allergy Verified 06/11/18 11:50 Review of Systems ROS Statement: Those systems with pertinent positive or pertinent negative responses have been documented in the HPI. ROS Other: All systems not noted in ROS Statement are negative. Past Medical History Past Medical History: COPD, CVA/TIA, GERD/Reflux, Hypertension, Osteoarthritis ( OA), Rheumatoid Arthritis (RA) Additional Past Medical History / Comment(s): Pt recently admitted to [facility] on with colitis/sepsis/R renal cyst. Other hx: Recurrent pancreatitis, bronchitis, TIA, anemia-unknown cause, migraines, ostoeporosis, past R femur fracture with surgery., History of Any Multi-Drug Resistant Organisms: None Reported Past Surgical History: Appendectomy, Back Surgery, Cholecystectomy, Orthopedic Surgery, Tonsillectomy Additional Past Surgical History / Comment(s): Pancreatic stents-since removed, 6 back surgeries with 2 fusions, right oophorectomy due to ectopic , EGD/colonoscopy, right leg alice inserted d/t fracture, Past Anesthesia/Blood Transfusion Reactions: No Reported Reaction Additional Past Anesthesia/Blood Transfusion Reaction / Comment(s): Pt has received blood in past without reaction. Past Psychological History: No Psychological Hx Reported Smoking Status: Current every day smoker Past Alcohol Use History: None Reported Past Drug Use History: None Reported - Past Family History Father Family Medical History: Cancer, Liver Disease Additional Family Medical History / Comment(s): Father was an alcoholic. He from lung/ liver cancer. Mother Family Medical History: Cancer, CVA/TIA, Hypertension Additional Family Medical History / Comment(s): Mother had breast and colon cancer. She of liver cancer at the age of 78 yrs. General Exam Limitations: no limitations General appearance: alert, in no apparent distress Head exam: Present: atraumatic, normocephalic, normal inspection Eye exam: Present: normal appearance, PERRL, EOMI. Absent: scleral icterus, conjunctival injection, periorbital swelling Respiratory exam: Present: normal lung sounds bilaterally. Absent: respiratory distress, wheezes, rales, rhonchi, stridor Cardiovascular Exam: Present: regular rate, normal rhythm, normal heart sounds. Absent: systolic murmur, diastolic murmur, rubs, gallop, clicks GI/Abdominal exam: Present: soft, tenderness (Moderate severe epigastric, mid abdominal tenderness), normal bowel sounds. Absent: distended, guarding, rebound, rigid Back exam: Absent: CVA tenderness (R), CVA tenderness (L) Skin exam: Present: warm, dry, intact, normal color. Absent: rash Course Vital Signs 06/11/18 06/11/18 11:38 14:40 Temperature 99.3 F 98.8 F Pulse Rate 75 60 Respiratory 18 18 Rate Blood Pressure 156/81 141/81 O2 Sat by Pulse 97 97 Oximetry Medical Decision Making - Lab Data Result diagrams: 06/11/18 12:50 06/11/18 14:06 Lab Results 06/11/18 06/11/18 06/11/18 Range/Units 12:50 13:40 14:06 WBC 14.6 H (3.8-10.6) k/uL RBC 5.57 H (3.80-5.40) m/uL Hgb 16.0 (11.4-16.0) gm/dL Hct 48.8 H (34.0-46.0) % MCV 87.5 (80.0-100.0) fL MCH 28.6 (25.0-35.0) pg MCHC 32.7 (31.0-37.0) g/dL RDW 14.6 (11.5-15.5) % Plt Count 500 H (150-450) k/uL Neutrophils % 76 % Lymphocytes % 17 % Monocytes % 4 % Eosinophils % 2 % Basophils % 0 % Neutrophils # 11.1 H (1.3-7.7) k/uL Lymphocytes # 2.5 (1.0-4.8) k/uL Monocytes # 0.5 (0-1.0) k/uL Eosinophils # 0.3 (0-0.7) k/uL Basophils # 0.0 (0-0.2) k/uL Sodium 140 (137-145) mmol/L Potassium 4.2 (3.5-5.1) mmol/L Chloride 107 (98-107) mmol/L Carbon Dioxide 21 L (22-30) mmol/L Anion Gap 12 mmol/L BUN 14 (7-17) mg/dL Creatinine 0.75 (0.52-1.04) mg/dL Est GFR (CKD-EPI)AfAm >90 (>60 ml/min/1.73 sqM) Est GFR (CKD-EPI)NonAf 86 (>60 ml/min/1.73 sqM) Glucose 112 H (74-99) mg/dL Calcium 9.3 (8.4-10.2) mg/dL Total Bilirubin 0.4 (0.2-1.3) mg/dL AST 17 (14-36) U/L ALT 19 (9-52) U/L Alkaline Phosphatase 84 (38-126) U/L Total Protein 7.0 (6.3-8.2) g/dL Albumin 4.0 (3.5-5.0) g/dL Amylase 1078 H* (30-110) U/L Urine Color Yellow Urine Appearance Cloudy H (Clear) Urine pH 6.5 (5.0-8.0) Ur Specific [place] 1.015 (1.001-1.035) Urine Protein 2+ H (Negative) Urine Glucose (UA) Negative (Negative) Urine Ketones Negative (Negative) Urine Blood Moderate H (Negative) Urine Nitrite Negative (Negative) Urine Bilirubin Negative (Negative) Urine Urobilinogen <2.0 (<2.0) mg/dL Ur Leukocyte Esterase Large H (Negative) Urine RBC 9 H (0-5) /hpf Urine WBC 53 H (0-5) /hpf Ur Squamous Epith Cells 28 H (0-4) /hpf Urine Bacteria Rare H (None) /hpf Hyaline Casts 1 (0-2) /lpf Urine Mucus Occasional H (None) /hpf Disposition Clinical Impression: Acute on chronic pancreatitis, UTI (urinary tract infection) Disposition: ADMITTED IP TO THIS HOSP Condition: Fair Referrals: Reyes Russ MD [Primary Care Provider] - 1-2 days
[2018-06-11 14:10] LABS: Appearance,Urine Cloudy (Clear); Bacteria,Urine Rare /hpf; Bilirubin,Urine Negative (Negative); Blood,Urine Moderate (Negative); Color,Urine Yellow; Glucose,Urine (UA) Negative (Negative); Hyaline Casts,Urine 1 /lpf (0-2); Ketones,Urine Negative (Negative); Leukocyte Esterase,Urine Large (Negative); Mucus,Urine Occasional /hpf; Nitrite,Urine Negative (Negative); PH, Urine 6.5 (5.0-8.0); Protein,Urine 2+ (Negative); RBC,Urine 9 /hpf (0-5); Specific Gravity,Urine 1.015 (1.001-1.035); Squamous Epithelial Cell,Urine 28 /hpf (0-4); Urobilinogen,Urine <2.0 mg/dL (<2.0); WBC,Urine 53 /hpf (0-5)
[2018-06-11 14:30] LABS: ALT 19 U/L (9-52); AST 17 U/L (14-36); Alkaline Phosphatase 84 U/L (38-126); Anion Gap 12 mmol/L; Blood Urea Nitrogen 14 mg/dL (7-17); Calcium 9.3 mg/dL (8.4-10.2); Carbon Dioxide 21 mmol/L (22-30); Chloride 107 mmol/L (98-107); Glucose 112 mg/dL (74-99); Potassium 4.2 mmol/L (3.5-5.1); Sodium 140 mmol/L (137-145); Total Bilirubin 0.4 mg/dL (0.2-1.3)
[2018-06-11 14:37] LABS: Amylase 1078 U/L (30-110)
[2018-06-11] MEDS ORDERED: ONDANSETRON 4 MG/2 ML VIAL IVP PRN (15:14)
[2018-06-11] MEDS ORDERED: HYDROmorphone 1 MG/ML 1 ML SYRINGE IVP PRN (15:14)
[2018-06-11 15:23] LABS: Lipase 9650 U/L (23-300)
[2018-06-11] MEDS ORDERED: ALBUTEROL NEBULIZED 2.5 MG/3 ML INHALATION PRN (16:54)
[2018-06-11] MEDS ORDERED: NALOXONE 0.4 MG/ML 1 ML VIAL IV PRN (16:55)
--- NOTE | 2018-06-11 17:26 | P.HPIM ---
History of Present Illness H&P Date: 06/11/18 Chief Complaint: Abdominal pain 62-year-old female with PMH of recurrent pancreatitis, COPD, history of CVA, hypertension, rheumatoid arthritis presents the ED for abdominal pain. Patient reports this pain being similar to her multiple episodes of pancreatitis. Patient reports being woken up last night around 11:30 PM. She describes the pain is constant, located in the epigastric region, aching in nature with waves of intensified pain. Pain is 10 out of 10 in severity. Patient reports the pain to be bandlike, occasionally radiating to the back. Patient attempted to take some Tums and [place] last night states she vomited it up. She denies any headaches, lower extremity swelling, fever, chills, cough, chest pain, shortness of breath, palpitations, changes in urination or bowel habits. Of note, she was recently sent from Dr. Pearson's clinic to undergo an endoscopic ultrasound at [facility]. Test results revealed an abnormality but they were unable to follow-up with her. Patient reports that she was not able to follow- up with Dr. Pearson previously as she was feeling unwell. In the ED, patient has a leukocytosis of 14.6. Her platelet count is 500. HCO3 is 21. Glucose is 112. Amylase is 1078. Lipase is 9650. Patient is admitted for recurrent pancreatitis, pain control and GI evaluation. Review of Systems All systems: negative Past Medical History Past Medical History: Chest Pain / Angina, COPD, CVA/TIA, GERD/Reflux, Hypertension, Osteoarthritis (OA), Rheumatoid Arthritis (RA) Additional Past Medical History / Comment(s): admitted to [facility] on 02/18/18 with colitis/sepsis/R renal cyst. Other hx: Recurrent pancreatitis, bronchitis, TIA , anemia-unknown cause, migraines, ostoeporosis, past R femur fracture with surgery.past l2 compression fx, History of Any Multi-Drug Resistant Organisms: None Reported Past Surgical History: Appendectomy, Back Surgery, Cholecystectomy, Orthopedic Surgery, Tonsillectomy Additional Past Surgical History / Comment(s): Pancreatic stents-since removed, 6 back surgeries with 2 fusions, right oophorectomy due to ectopic , EGD/colonoscopy, right leg alice inserted d/t fracture, Past Anesthesia/Blood Transfusion Reactions: No Reported Reaction Additional Past Anesthesia/Blood Transfusion Reaction / Comment(s): Pt has received blood in past without reaction. Smoking Status: Current every day smoker - Past Family History Father Family Medical History: Cancer, Liver Disease Additional Family Medical History / Comment(s): Father was an alcoholic. He from lung/ liver cancer. Mother Family Medical History: Cancer, CVA/TIA, Hypertension Additional Family Medical History / Comment(s): Mother had breast and colon cancer. She of liver cancer at the age of 78 yrs. Medications and Allergies Home Medications Medication Instructions Recorded Confirmed Type Albuterol Inhaler [Ventolin Hfa 1 - 2 puff INHALATION RT-Q6H PRN 07/15/16 History Inhaler] Albuterol Nebulized [Ventolin 2.5 mg INHALATION RT-QID PRN 08/31/16 06/11/18 History Nebulized] amLODIPine [Norvasc] 10 mg PO DAILY 02/18/18 06/11/18 History Famotidine [Pepcid] 20 mg PO BID #20 tablet 03/16/18 06/11/18 Rx HYDROcodone/APAP 10-325MG [[place] 1 tab PO TID PRN #10 tab 04/16/18 06/11/18 Rx 10-325] Gabapentin 800 mg PO QID 06/04/18 06/11/18 History traMADol HCL [Ultram] 100 mg PO DAILY PRN 06/11/18 06/11/18 History Allergies Allergy/AdvReac Type Severity Reaction Status Date / Time No Known Allergies Allergy Verified 06/11/18 11:50 Physical Exam Vitals: Vital Signs Temp Pulse Resp BP Pulse Ox 06/11/18 16:35 98.1 F 60 18 133/68 96 06/11/18 14:40 98.8 F 60 18 141/81 97 06/11/18 11:38 99.3 F 75 18 156/81 97 Intake and Output 06/11/18 06/11/18 06/11/18 06:59 14:59 22:59 Other: Weight 60.781 kg General: [non toxic], [no distress], [appears at stated age] Derm: [warm], [dry] Head: [atraumatic], [normocephalic], [symmetric] Eyes: [EOMI], [no lid lag], [anicteric sclera] Mouth: [no lip lesion], [mucus membranes moist] Cardiovascular: [S1S2 reg], [no murmur], [positive posterior tibial pulse bilateral], Lungs: [CTA bilateral], [no rhonchi, no rales] , [no accessory muscle use] Abdominal: [soft], [epigastric tenderness to palpation with no rebound], [no guarding], [no appreciable organomegaly], [negative Espinoza] Ext: [no gross muscle atrophy], [no edema], [no contractures] Neuro: [ CN II-XI grossly intact], [no focal neuro deficits] Psych: [Alert], [oriented], [appropriate affect] Results CBC & Chem 7: 06/11/18 12:50 06/11/18 14:06 Labs: Abnormal Lab Results - Last 24 Hours (Table) 06/11/18 06/11/18 06/11/18 Range/Units 12:50 13:40 14:06 WBC 14.6 H (3.8-10.6) k/uL RBC 5.57 H (3.80-5.40) m/uL Hct 48.8 H (34.0-46.0) % Plt Count 500 H (150-450) k/uL Neutrophils # 11.1 H (1.3-7.7) k/uL Carbon Dioxide 21 L (22-30) mmol/L Glucose 112 H (74-99) mg/dL Amylase 1078 H* (30-110) U/L Lipase 9650 H (23-300) U/L Urine Appearance Cloudy H (Clear) Urine Protein 2+ H (Negative) Urine Blood Moderate H (Negative) Ur Leukocyte Esterase Large H (Negative) Urine RBC 9 H (0-5) /hpf Urine WBC 53 H (0-5) /hpf Ur Squamous Epith Cells 28 H (0-4) /hpf Urine Bacteria Rare H (None) /hpf Urine Mucus Occasional H (None) /hpf Thrombosis Risk Factor Assmnt - Choose All That Apply Any of the Below Risk Factors Present?: No Other Risk Factors: No Other congenital or acquired thrombophilia - If yes, enter type in comment: No Thrombosis Risk Factor Assessment Level: Very Low Risk Assessment and Plan Assessment: Assessment and Plan 1. Acute pancreatitis: Lipase 9650. Amylase 1078. CT abdomen and pelvis from 05/13/2018 shows mildly dilated biliary tree with cystic enlargement of the pancreatic duct. Patient reports recently getting an endoscopic ultrasound done at [facility], did not follow-up with Dr. Clark. Will start Dilaudid 1 mg IV every 3 when necessary, [place] 10 one tab by mouth every 6 as needed. Continue Zofran 4 mg IV every 8 hours as needed for nausea and vomiting. We'll continue normal saline at 100 mL/h. I will keep patient nothing by mouth tonight, start clear liquid diet in the morning. FU GI consult 2. h/o TIA: Not on medication. Lipid panel shows LDL 119 and TG 223 on 03/2018. Start ASA and Lipitor on DC. 3. COPD: Stable. Albuterol neb QID PRN for SOB/wheezing. 4. Hypertension: BP 133/68. Continue Amlodipine 10 mg PO QD. Monitor vitals, adjust medication as necessary. 5. DVT/GI Prophylaxis: Pepcid 20 mg PO BID. SCD boots only.
[2018-06-11] MEDS: HYDROmorphone 1 MG/ML 1 ML SYRINGE IV PRN ×3 (18:14→23:58)
[2018-06-11] MEDS: SODIUM CHLORIDE 0.9% 1,000 ML IV SCH (18:15)
[2018-06-11] MEDS: GABAPENTIN 400 MG CAP PO SCH ×2 (18:17→20:26)
[2018-06-11] MEDS: HYDROcodone/APAP 10-325MG 1 EACH TAB PO PRN (20:26)
[2018-06-11] MEDS: FAMOTIDINE 20 MG TAB PO SCH (20:26)
[2018-06-12] MEDS: HYDROmorphone 1 MG/ML 1 ML SYRINGE IV PRN ×8 (02:56→23:59)
[2018-06-12] MEDS: SODIUM CHLORIDE 0.9% 1,000 ML IV SCH ×3 (06:13→21:13)
--- NOTE | 2018-06-12 08:49 | P.PN ---
Subjective Progress Note Date: 06/12/18 Principal diagnosis: acute pancreatitis Patient was seen and examined. No acute events overnight. Patient reports no improvement in her abdominal pain. She is tolerating her clear liquid diet. Mild nausea but no vomiting. Objective - Vital Signs Vital signs: Vital Signs Temp 97.6 F 06/12/18 06:09 Pulse 67 06/12/18 06:09 Resp 18 06/12/18 06:09 BP 122/70 06/12/18 06:09 Pulse Ox 95 06/12/18 06:09 Intake & Output 06/11/18 06/12/18 06/12/18 18:59 06:59 18:59 Intake Total 200 Balance 200 Weight 60.781 kg Intake: Oral 200 Other: Voiding Method Toilet # Voids 1 2 # Bowel Movements 1 - Exam General: [non toxic], [no distress], [appears at stated age] Derm: [warm], [dry] Head: [atraumatic], [normocephalic], [symmetric] Eyes: [EOMI], [no lid lag], [anicteric sclera] Mouth: [no lip lesion], [mucus membranes moist] Cardiovascular: [S1S2 reg], [no murmur] Lungs: [CTA bilateral], [no rhonchi, no rales] , [no accessory muscle use] Abdominal: [soft], [epigastric tenderness to palpation with no rebound], [no guarding], [no appreciable organomegaly] Ext: [no gross muscle atrophy], [no edema], [no contractures] Psych: [Alert], [oriented], [appropriate affect] - Labs CBC & Chem 7: 06/11/18 12:50 06/11/18 14:06 Labs: Abnormal Lab Results - Last 24 Hours (Table) 06/11/18 06/11/18 06/11/18 Range/Units 12:50 13:40 14:06 WBC 14.6 H (3.8-10.6) k/uL RBC 5.57 H (3.80-5.40) m/uL Hct 48.8 H (34.0-46.0) % Plt Count 500 H (150-450) k/uL Neutrophils # 11.1 H (1.3-7.7) k/uL Carbon Dioxide 21 L (22-30) mmol/L Glucose 112 H (74-99) mg/dL Amylase 1078 H* (30-110) U/L Lipase 9650 H (23-300) U/L Urine Appearance Cloudy H (Clear) Urine Protein 2+ H (Negative) Urine Blood Moderate H (Negative) Ur Leukocyte Esterase Large H (Negative) Urine RBC 9 H (0-5) /hpf Urine WBC 53 H (0-5) /hpf Ur Squamous Epith Cells 28 H (0-4) /hpf Urine Bacteria Rare H (None) /hpf Urine Mucus Occasional H (None) /hpf Assessment and Plan Assessment: Assessment and Plan 1. Acute pancreatitis: Lipase 9650. Amylase 1078. CT abdomen and pelvis from 05/13/2018 shows mildly dilated biliary tree with cystic enlargement of the pancreatic duct. Patient reports recently getting an endoscopic ultrasound done at [facility], did not follow-up with Dr. Clark. Continue Dilaudid 1 mg IV every 3 hours when necessary, [place] 10 one tab by mouth every 6 hours as needed. Continue Zofran 4 mg IV every 8 hours as needed for nausea and vomiting. We'll continue normal saline at 100 mL/h. I will continue clear liquid diet and advance as tolerated. FU GI consult 2. h/o TIA: Not on medication. Lipid panel shows LDL 119 and TG 223 on 03/2018. ASA and Lipitor on DC. 3. COPD: Stable. Albuterol neb QID PRN for SOB/wheezing. 4. Hypertension: BP 122/70. Continue Amlodipine 10 mg PO QD. Monitor vitals, adjust medication as necessary. 5. DVT/GI Prophylaxis: Pepcid 20 mg PO BID. SCD boots only. Explained to her the importance of following with gastroenterology. ERCP with stent placement is not possible at this location. She will need follow-up at [facility]. She has failed to follow-up with Dr. Clark in the outpatient setting. I explained to her the risks of multiple attacks acute on chronic pancreatitis including diabetes and malabsorption. Patient verbalized understanding. Pending GI evaluation.
[2018-06-12] MEDS: amLODIPine 10 MG TAB PO SCH (08:52)
[2018-06-12] MEDS: GABAPENTIN 400 MG CAP PO SCH ×4 (08:52→21:12)
[2018-06-12] MEDS: FAMOTIDINE 20 MG TAB PO SCH ×2 (08:52→21:12)
--- NOTE | 2018-06-12 10:58 | P.CONS ---
History of Present Illness - Reason for Consult Consult date: 06/12/18 Pancreatitis Requesting physician: Sharyn Guy - Chief Complaint abdominal pain - History of Present Illness 62-year-old female well-known to the GI service with a past medical history of chronic pancreatitis was cystectomy. She was referred to [facility] in April 2018 underwent EUS with findings of a pancreatic duct stone as well as evidence of pancreatic divisum. She is not followed it with [facility] since her EUS. She has missed her follow-up GI appointment secondary to family issues. She presents with acute epigastric upper abdominal pain without fever chills hematemesis hematochezia or melena. Admission white count 14.5. Hemoglobin 16. Platelet 500. Amylase 1078. Lipase 9650. LFTs normal. Urinalysis cloudy large leukocyte esterase rare bacteria moderate blood. Repeat pancreatic enzymes pending. Tolerating clear liquids. She has been afebrile. Pain slightly improved but still persistent. Review of Systems Constitutional: Denies fever, chills, sweats, weight gain, or loss. HEENT: Negative for migraines, blurred vision or loss, earaches, drainage, tinnitus, oral mucosal lesions, dysphagia, or odynophagia. CARDIAC: Negative for chest pain, arrhythmias, or palpitation. RESPIRATORY: Negative for shortness of breath, hemoptysis, cough, or sputum production. GI: See HPI for pertinent findings. : Negative for hematuria, urgency, frequency, polyuria, or dysuria. GYNc: Denies possibility of . Negative vaginal discharge. MUSCULOSKELETAL: Negative for muscle aches, swelling, arthritis, and arthralgias. NEUROLOGIC: Negative for stroke or TIA. ENDOCRINE: Negative for thyroid problems. SKIN: Negative for rash or itching. PSYCHIATRIC: Negative history for depression and anxiety Past Medical History Past Medical History: Chest Pain / Angina, COPD, CVA/TIA, GERD/Reflux, Hypertension, Osteoarthritis (OA), Rheumatoid Arthritis (RA) Additional Past Medical History / Comment(s): admitted to [facility] on 02/18/18 with colitis/sepsis/R renal cyst. Other hx: Recurrent pancreatitis, bronchitis, TIA , anemia-unknown cause, migraines, ostoeporosis, past R femur fracture with surgery.past l2 compression fx, History of Any Multi-Drug Resistant Organisms: None Reported Past Surgical History: Appendectomy, Back Surgery, Cholecystectomy, Orthopedic Surgery, Tonsillectomy Additional Past Surgical History / Comment(s): Pancreatic stents-since removed, 6 back surgeries with 2 fusions, right oophorectomy due to ectopic , EGD/colonoscopy, right leg alice inserted d/t fracture, Past Anesthesia/Blood Transfusion Reactions: No Reported Reaction Additional Past Anesthesia/Blood Transfusion Reaction / Comm: Pt has received blood in past without reaction. Smoking Status: Current every day smoker - Past Family History Father Family Medical History: Cancer, Liver Disease Additional Family Medical History / Comment(s): Father was an alcoholic. He from lung/ liver cancer. Mother Family Medical History: Cancer, CVA/TIA, Hypertension Additional Family Medical History / Comment(s): Mother had breast and colon cancer. She of liver cancer at the age of 78 yrs. Medications and Allergies Home Medications Medication Instructions Recorded Confirmed Type Albuterol Inhaler [Ventolin Hfa 1 - 2 puff INHALATION RT-Q6H PRN 07/15/16 History Inhaler] Albuterol Nebulized [Ventolin 2.5 mg INHALATION RT-QID PRN 08/31/16 06/11/18 History Nebulized] amLODIPine [Norvasc] 10 mg PO DAILY 02/18/18 06/11/18 History Famotidine [Pepcid] 20 mg PO BID #20 tablet 03/16/18 06/11/18 Rx HYDROcodone/APAP 10-325MG [[place] 1 tab PO TID PRN #10 tab 04/16/18 06/11/18 Rx 10-325] Gabapentin 800 mg PO QID 06/04/18 06/11/18 History traMADol HCL [Ultram] 100 mg PO DAILY PRN 06/11/18 06/11/18 History Allergies Allergy/AdvReac Type Severity Reaction Status Date / Time No Known Allergies Allergy Verified 06/11/18 11:50 Physical Exam Vitals: Vital Signs Temp Pulse Pulse Resp BP BP Pulse Ox 06/12/18 06:09 97.6 F 67 18 122/70 95 06/11/18 22:48 97.9 F 64 16 120/64 95 06/11/18 20:30 16 06/11/18 17:15 97.4 F L 58 L 16 115/71 96 06/11/18 16:35 98.1 F 60 18 133/68 96 06/11/18 14:40 98.8 F 60 18 141/81 97 06/11/18 11:38 99.3 F 75 18 156/81 97 Intake and Output 06/11/18 06/12/18 06/12/18 22:59 06:59 14:59 Intake Total 200 Balance 200 Intake: Oral 200 Other: Voiding Method Toilet # Voids 1 2 # Bowel Movements 1 General appearance: The patient is alert, oriented, in no acute distress. HET: Head is normocephalic and atraumatic. Pupils are equal and reactive. Oropharynx is clear without lesions. Neck: Supple without lymphadenopathy. Trachea midline. Heart: S1 S2. Regular rate and rhythm. Lungs: No crackles or wheezes are heard. Abdomen: Soft, midepigastric upper abdominal pain, nondistended with bowel sounds. No peritoneal signs. No palpable organomegaly or masses. Extremities: Normal skin color and turgor. No cyanosis, rash, ulceration, clubbing, or edema. Radial and pedal pulses are 2/4 bilaterally. Neurological: No focal deficits. Strength and sensation are grossly intact. Results CBC & Chem 7: 06/11/18 12:50 06/11/18 14:06 Labs: Abnormal Lab Results - Last 24 Hours (Table) 06/11/18 06/11/18 06/11/18 Range/Units 12:50 13:40 14:06 WBC 14.6 H (3.8-10.6) k/uL RBC 5.57 H (3.80-5.40) m/uL Hct 48.8 H (34.0-46.0) % Plt Count 500 H (150-450) k/uL Neutrophils # 11.1 H (1.3-7.7) k/uL Carbon Dioxide 21 L (22-30) mmol/L Glucose 112 H (74-99) mg/dL Amylase 1078 H* (30-110) U/L Lipase 9650 H (23-300) U/L Urine Appearance Cloudy H (Clear) Urine Protein 2+ H (Negative) Urine Blood Moderate H (Negative) Ur Leukocyte Esterase Large H (Negative) Urine RBC 9 H (0-5) /hpf Urine WBC 53 H (0-5) /hpf Ur Squamous Epith Cells 28 H (0-4) /hpf Urine Bacteria Rare H (None) /hpf Urine Mucus Occasional H (None) /hpf Assessment and Plan (1) Acute on chronic pancreatitis Narrative/Plan: 62-year-old female admitted with acute on chronic pancreatitis normal liver function tests secondary to pancreatic divisum with a history of pancreatic calculus per EUS April 2018 scheduled a follow-up with [facility] for further evaluation possible outpatient ERCP. Current Visit: Yes Status: Acute Code(s): K85.90 - ACUTE PANCREATITIS WITHOUT NECROSIS OR INFECTION, UNSP; K86.1 - OTHER CHRONIC PANCREATITIS SNOMED Code(s): 636845575 (2) Pancreatic divisum Current Visit: Yes Status: Acute Code(s): Q45.3 - OTH CONGENITAL MALFORMATIONS OF PANCREAS AND PANCREATIC DUCT SNOMED Code(s): 68205521 (3) Pancreatic duct calculus Current Visit: Yes Status: Acute Code(s): K86.89 - OTHER SPECIFIED DISEASES OF PANCREAS SNOMED Code(s): 381266033 Plan: 1. Patient has received fluid boluses continue with maintenance IV fluids at 125 an hour. Clear liquid diet. Daily CMP CBC amylase lipase. Follow-up with [facility] specialist as advised we'll defer to their service for outpatient ERCP evaluation. Thank you for this kind referral and the opportunity to participate in the care of your patient. This consultation was discussed with Dr. Braden. The impression and plan of care have been directed as dictated.
[2018-06-12 12:08] LABS: HCT 35.5 % (34.0-46.0); MCH 27.3 pg (25.0-35.0); MCV 87.9 fL (80.0-100.0); Mean Platelet Volume 7.4; Platelet Count 380 k/uL (150-450); RBC 4.04 m/uL (3.80-5.40); RDW 14.4 % (11.5-15.5); WBC 9.8 k/uL (3.8-10.6)
[2018-06-12 12:17] LABS: ALT 20 U/L (9-52); AST 16 U/L (14-36); Albumin 3.6 g/dL (3.5-5.0); Alkaline Phosphatase 64 U/L (38-126); Amylase 255 U/L (30-110); Anion Gap 9 mmol/L; Blood Urea Nitrogen 11 mg/dL (7-17); Calcium 8.8 mg/dL (8.4-10.2); Carbon Dioxide 20 mmol/L (22-30); Chloride 107 mmol/L (98-107); Glucose 99 mg/dL (74-99); Lipase 778 U/L (23-300); Sodium 136 mmol/L (137-145); Total Bilirubin 0.3 mg/dL (0.2-1.3); Total Protein 6.4 g/dL (6.3-8.2)
[2018-06-12] MEDS: HYDROcodone/APAP 10-325MG 1 EACH TAB PO PRN ×2 (16:16→22:43)
[2018-06-13] MEDS: HYDROmorphone 1 MG/ML 1 ML SYRINGE IV PRN ×7 (03:53→22:14)
[2018-06-13] MEDS: SODIUM CHLORIDE 0.9% 1,000 ML IV SCH ×4 (04:00→20:35)
[2018-06-13] MEDS: GABAPENTIN 400 MG CAP PO SCH ×4 (08:28→22:15)
[2018-06-13] MEDS: amLODIPine 10 MG TAB PO SCH (08:28)
[2018-06-13] MEDS: FAMOTIDINE 20 MG TAB PO SCH ×2 (08:29→21:00)
[2018-06-13] MEDS: HYDROcodone/APAP 10-325MG 1 EACH TAB PO PRN ×3 (08:29→20:16)
--- NOTE | 2018-06-13 09:54 | P.PN ---
Subjective Progress Note Date: 06/13/18 Principal diagnosis: Pancreatitis Feels better. Lipase decreased to 700 range yesterday. Abdominal pain improved. Afebrile. Diet advanced. Objective - Vital Signs Vital signs: Vital Signs Temp 97.4 F L 06/13/18 06:15 Pulse 70 06/13/18 06:15 Resp 20 06/13/18 06:15 BP 118/58 06/13/18 06:15 Pulse Ox 97 06/13/18 06:15 Intake & Output 06/12/18 06/13/18 06/13/18 18:59 06:59 18:59 Intake Total 1790 200 Balance 1790 200 Intake: Intake, IV Titration 500 Amount Sodium Chloride 0.9% 1, 500 000 ml @ 125 mls/hr IV . Q8H [facility] Rx#:[id number] Oral 1290 200 Other: Voiding Method Toilet Toilet # Voids 3 2 # Bowel Movements 1 - Exam General appearance: The patient is alert, oriented, in no acute distress. HET: Head is normocephalic and atraumatic. Pupils are equal and reactive. Oropharynx is clear without lesions. Neck: Supple without lymphadenopathy. Trachea midline. Heart: S1 S2. Regular rate and rhythm. Lungs: No crackles or wheezes are heard. Abdomen: Soft, mild upper abdominal pain midepigastrium, nondistended with bowel sounds. No peritoneal signs. No palpable organomegaly or masses. Extremities: Normal skin color and turgor. No cyanosis, rash, ulceration, clubbing, or edema. Radial and pedal pulses are 2/4 bilaterally. Neurological: No focal deficits. Strength and sensation are grossly intact. - Labs CBC & Chem 7: 06/12/18 11:24 06/12/18 11:24 Labs: Abnormal Lab Results - Last 24 Hours (Table) 06/12/18 06/12/18 Range/Units 11:24 11:24 Hgb 11.0 L D (11.4-16.0) gm/dL Sodium 136 L (137-145) mmol/L Carbon Dioxide 20 L (22-30) mmol/L Amylase 255 H (30-110) U/L Lipase 778 H (23-300) U/L Assessment and Plan (1) Acute on chronic pancreatitis Narrative/Plan: 62-year-old female admitted with acute on chronic pancreatitis normal liver function tests secondary to pancreatic divisum with a history of pancreatic calculus per EUS April 2018 scheduled a follow-up with [facility] for further evaluation possible outpatient ERCP. Current Visit: Yes Status: Acute Code(s): K85.90 - ACUTE PANCREATITIS WITHOUT NECROSIS OR INFECTION, UNSP; K86.1 - OTHER CHRONIC PANCREATITIS SNOMED Code(s): 185005831 (2) Pancreatic divisum Current Visit: Yes Status: Acute Code(s): Q45.3 - OTH CONGENITAL MALFORMATIONS OF PANCREAS AND PANCREATIC DUCT SNOMED Code(s): 14167670 (3) Pancreatic duct calculus Current Visit: Yes Status: Acute Code(s): K86.89 - OTHER SPECIFIED DISEASES OF PANCREAS SNOMED Code(s): 735329853 Plan: 1. Pancreatic enzymes improving. Tolerating diet. Discharge per medicine. Follow-up with [facility] specialist as advised we'll defer to their service for outpatient ERCP evaluation. Assessment and plan a care discussed with Dr. Clark
--- NOTE | 2018-06-13 13:07 | P.PN ---
Subjective Progress Note Date: 06/13/18 Principal diagnosis: pancreatitis Patient was seen and examined. No acute events overnight. Patient reports no improvement in her abdominal pain, 8 out of 10, relieved with IV Dilaudid. She is able to tolerate eating Fritos this morning. She denies any vomiting. she does endorse diarrhea, chronic in nature, yellowing color at times. Objective - Vital Signs Vital signs: Vital Signs Temp 97.4 F L 06/13/18 06:15 Pulse 70 06/13/18 06:15 Resp 20 06/13/18 06:15 BP 118/58 06/13/18 06:15 Pulse Ox 97 06/13/18 06:15 Intake & Output 06/12/18 06/13/18 06/13/18 18:59 06:59 18:59 Intake Total 1790 200 Balance 1790 200 Intake: Intake, IV Titration 500 Amount Sodium Chloride 0.9% 1, 500 000 ml @ 125 mls/hr IV . Q8H [facility] Rx#:[id number] Oral 1290 200 Other: Voiding Method Toilet Toilet # Voids 3 2 # Bowel Movements 1 - Exam General: [non toxic], [no distress], [appears at stated age] Derm: [warm], [dry] Head: [atraumatic], [normocephalic], [symmetric] Eyes: [EOMI], [no lid lag], [anicteric sclera] Mouth: [no lip lesion], [mucus membranes moist] Cardiovascular: [S1S2 reg], [no murmur] Lungs: [CTA bilateral], [no rhonchi, no rales] , [no accessory muscle use] Abdominal: [soft], [epigastric tenderness to palpation with no rebound], [no guarding], [no appreciable organomegaly] Ext: [no gross muscle atrophy], [no edema], [no contractures] Psych: [Alert], [oriented], [appropriate affect] - Labs CBC & Chem 7: 06/12/18 11:24 06/12/18 11:24 Labs: Abnormal Lab Results - Last 24 Hours (Table) 06/12/18 06/12/18 Range/Units 11:24 11:24 Hgb 11.0 L D (11.4-16.0) gm/dL Sodium 136 L (137-145) mmol/L Carbon Dioxide 20 L (22-30) mmol/L Amylase 255 H (30-110) U/L Lipase 778 H (23-300) U/L Assessment and Plan Assessment: Assessment and Plan 1. Acute pancreatitis: Lipase 9650 to 778. Amylase [address] abdomen and pelvis from 05/13/2018 shows mildly dilated biliary tree with cystic enlargement of the pancreatic duct. Patient reports recently getting an endoscopic ultrasound done at [facility], did not follow-up with Dr. Clark. Continue Dilaudid 1 mg IV every 3 hours when necessary, [place] 10 one tab by mouth every 6 hours as needed. Continue Zofran 4 mg IV every 8 hours as needed for nausea and vomiting. We'll continue normal saline at 100 mL/h. Low fat diet. FU GI consult 2. h/o TIA: Not on medication. Lipid panel shows LDL 119 and TG 223 on 03/2018. ASA and Lipitor on DC. 3. COPD: Stable. Albuterol neb QID PRN for SOB/wheezing. 4. Hypertension: BP 118/58. Continue Amlodipine 10 mg PO QD. Monitor vitals, adjust medication as necessary. 5. DVT/GI Prophylaxis: Pepcid 20 mg PO BID. SCD boots only. Explained to her the importance of following with gastroenterology. ERCP with stent placement is not possible at this location. She will need follow-up at [facility]. She has failed to follow-up with Dr. Clark in the outpatient setting. I explained to her the risks of multiple attacks acute on chronic pancreatitis including diabetes and malabsorption. Patient verbalized understanding. GI will see her outPT. Anticipate DC in 1-2 days when pain is well controlled.
[2018-06-13 14:44] VITALS: RESP 16
[2018-06-13] MEDS ORDERED: BENZOCAINE 20 % GEL 15 GM TUBE MM PRN (16:11)
[2018-06-14] MEDS: HYDROmorphone 1 MG/ML 1 ML SYRINGE IV PRN ×3 (01:22→07:34)
[2018-06-14] MEDS: SODIUM CHLORIDE 0.9% 1,000 ML IV SCH (04:17)
[2018-06-14] MEDS: HYDROcodone/APAP 10-325MG 1 EACH TAB PO PRN ×2 (05:37→09:32)
[2018-06-14] MEDS: FAMOTIDINE 20 MG TAB PO SCH (08:12)
[2018-06-14] MEDS: amLODIPine 10 MG TAB PO SCH (08:12)
[2018-06-14] MEDS: GABAPENTIN 400 MG CAP PO SCH (08:12)
[2018-06-14 08:16] VITALS: BP 148/74; PULSE 67; TEMP 98.5
--- NOTE | 2018-06-14 08:23 | P.DS ---
Providers Date of admission: 06/11/18 15:16 Expected date of discharge: 06/14/18 Attending physician: Kaylee Tavarez DO Consults: Gastroenterology Dr. Clark Primary care physician: Reyes Russ - Discharge Diagnosis(es) (1) History of TIA (transient ischemic attack) Current Visit: Yes Status: Acute (2) Acute on chronic pancreatitis Current Visit: Yes Status: Acute (3) Pancreatic divisum Current Visit: Yes Status: Acute (4) COPD (chronic obstructive pulmonary disease) Current Visit: No Status: Acute (5) HTN (hypertension) Current Visit: No Status: Acute Hospital Course: 62-year-old female with PMH of recurrent pancreatitis, COPD, history of CVA, hypertension, rheumatoid arthritis presents the ED for abdominal pain. Patient reports this pain being similar to her multiple episodes of pancreatitis. Patient reports being woken up last night around 11:30 PM. She describes the pain is constant, located in the epigastric region, aching in nature with waves of intensified pain. Pain is 10 out of 10 in severity. Patient reports the pain to be bandlike, occasionally radiating to the back. Patient attempted to take some Tums and [place] last night states she vomited it up. She denies any headaches, lower extremity swelling, fever, chills, cough, chest pain, shortness of breath, palpitations, changes in urination or bowel habits. Of note, she was recently sent from Dr. Pearson's clinic to undergo an endoscopic ultrasound at [facility]. Test results revealed an abnormality but they were unable to follow-up with her. Patient reports that she was not able to follow- up with Dr. Pearson previously as she was feeling unwell. In the ED, patient has a leukocytosis of 14.6. Her platelet count is 500. HCO3 is 21. Glucose is 112. Amylase is 1078. Lipase is 9650. Patient is admitted for recurrent pancreatitis, pain control and GI evaluation. With regard to her acute pancreatitis, CT abdomen and pelvis from 05/13/2018 showed a mildly dilated biliary tree with cystic enlargement of the pancreatic duct. Patient did get an endoscopic ultrasound done at [facility] which was abnormal, she did not follow-up with Dr. Pearson after her procedure. She was given Dilaudid 1 mg IV every 3 hours as needed until her pain was controlled. She was able to tolerate her diet at the time of discharge. Gastric neurology was consulted and recommended that she follow-up with Dr. Clark outpatient and [facility] as well for stent placement. We continued her home medications for her chronic conditions. Explained to her the importance of following up with gastroenterology and at [facility]. Her multiple attacks of pancreatitis will eventually leave her as a diabetic with chronic malabsorption. Patient seen and examined prior to discharge. She is tolerating her breakfast this morning. She denies any nausea or vomiting. Pain is well-controlled on IV Dilaudid. General: [non toxic], [no distress], [appears at stated age] Derm: [warm], [dry] Head: [atraumatic], [normocephalic], [symmetric] Eyes: [EOMI], [no lid lag], [anicteric sclera] Mouth: [no lip lesion], [mucus membranes moist] Cardiovascular: [S1S2 reg], [no murmur] Lungs: [CTA bilateral], [no rhonchi, no rales] , [no accessory muscle use] Abdominal: [soft], [epigastric tenderness to palpation with no rebound], [no guarding], [no appreciable organomegaly] Ext: [no gross muscle atrophy], [no edema], [no contractures] Psych: [Alert], [oriented], [appropriate affect] Assessment and Plan 1. Acute pancreatitis: Lipase 9650 to 778. Amylase [address] abdomen and pelvis from 05/13/2018 shows mildly dilated biliary tree with cystic enlargement of the pancreatic duct. Patient reports recently getting an endoscopic ultrasound done at [facility], did not follow-up with Dr. Clark. Continue Dilaudid 1 mg IV every 3 hours when necessary, [place] 10 one tab by mouth every 6 hours as needed. Continue Zofran 4 mg IV every 8 hours as needed for nausea and vomiting. We'll continue normal saline at 100 mL/h. Low fat diet. FU GI consult 2. h/o TIA: Not on medication. Lipid panel shows LDL 119 and TG 223 on 03/2018. ASA and Lipitor on DC. 3. COPD: Stable. Albuterol neb QID PRN for SOB/wheezing. 4. Hypertension: BP 118/58. Continue Amlodipine 10 mg PO QD. Monitor vitals, adjust medication as necessary. 5. DVT/GI Prophylaxis: Pepcid 20 mg PO BID. SCD boots only. Pertinent Studies: Lipase/Amylase Patient Condition at Discharge: Stable Plan - Discharge Summary Discharge Rx Participant: Yes New Discharge Prescriptions: New Benzocaine 20 % Gel [Orajel] 0.5 gm MM AC-BID PRN tube PRN Reason: Toothache HYDROcodone/APAP 10-325MG [[place] 10-325] 1 each PO Q6H PRN tab PRN Reason: MODERATE Pain Continue Albuterol Inhaler [Ventolin Hfa Inhaler] 1 - 2 puff INHALATION RT-Q6H PRN PRN Reason: Shortness Of Breath Albuterol Nebulized [Ventolin Nebulized] 2.5 mg INHALATION RT-QID PRN PRN Reason: Shortness Of Breath amLODIPine [Norvasc] 10 mg PO DAILY Famotidine [Pepcid] 20 mg PO BID #20 tablet HYDROcodone/APAP 10-325MG [[place] 10-325] 1 tab PO TID PRN #10 tab PRN Reason: Severe Pain Gabapentin 800 mg PO QID traMADol HCL [Ultram] 100 mg PO DAILY PRN 3 Days #6 tablet PRN Reason: Pain Discharge Medication List Albuterol Inhaler [Ventolin Hfa Inhaler] 1 - 2 puff INHALATION RT-Q6H PRN [History] Albuterol Nebulized [Ventolin Nebulized] 2.5 mg INHALATION RT-QID PRN 08/31/16 [ History] amLODIPine [Norvasc] 10 mg PO DAILY 02/18/18 [History] Famotidine [Pepcid] 20 mg PO BID #20 tablet 03/16/18 [Rx] HYDROcodone/APAP 10-325MG [[place] 10-325] 1 tab PO TID PRN #10 tab 04/16/18 [Rx] Gabapentin 800 mg PO QID 06/04/18 [History] Benzocaine 20 % Gel [Orajel] 0.5 gm MM AC-BID PRN tube 06/14/18 [Rx] HYDROcodone/APAP 10-325MG [[place] 10-325] 1 each PO Q6H PRN tab 06/14/18 [Rx] traMADol HCL [Ultram] 100 mg PO DAILY PRN 3 Days #6 tablet 06/14/18 [Rx] Follow up Appointment(s)/Referral(s): Zoya Clark MD [STAFF PHYSICIAN] - 07/08/18 2:30 pm Reyes Russ MD [Primary Care Provider] - 1-2 days Patient Instructions/Handouts: Pancreatitis (DC) Activity/Diet/Wound Care/Special Instructions: FOLLOW UP WITH DR. LAZARO AT [facility], . HAS NUMBER AND IS TO CALL FOR FOLLOW UP Please follow-up with her primary care provider within 1-2 days of discharge. Please follow-up with Dr. Clark within 1 week of discharge. Please follow-up at [facility] with the phone number given to you. Please take all medications as advised. Discharge Disposition: HOME SELF-CARE
== END 2018-06-14 10:14 | disposition home or self-care (01) | DRG 439 ==
LOC: EC 11:35 → 5MS5E 15:16 → 4MS4W 16:28 → 6PED 06-13 14:24
PROVIDERS: ADMIT Internal Medicine; ATTEND Internal Medicine
DX: K85.90 Acute pancreatitis without necrosis or infection, unspecified (principal); N39.0 Urinary tract infection, site not specified; Q45.3 Other congenital malformations of pancreas and pancreatic duct; F17.200 Nicotine dependence, unspecified, uncomplicated; I10 Essential (primary) hypertension; J44.9 Chronic obstructive pulmonary disease, unspecified; K21.9 Gastro-esophageal reflux disease without esophagitis; K86.1 Other chronic pancreatitis; M06.9 Rheumatoid arthritis, unspecified; Z79.899 Other long term (current) drug therapy; Z80.0 Family history of malignant neoplasm of digestive organs; Z81.1 Family history of alcohol abuse and dependence; Z82.49 Family history of ischemic heart disease and other diseases of the circulatory system; Z86.73 Personal history of transient ischemic attack (TIA), and cerebral infarction without residual deficits; Z90.721 Acquired absence of ovaries, unilateral; Z79.891 Long term (current) use of opiate analgesic
CPT/HCPCS: 36415; 80053; 81001; 82150; 83690; 85025; 85027; 96361; 96365; 96375; 96376; 99284

== ENCOUNTER 2018-06-15 16:03 | Emergency (ER) | payer BC ==
[2018-06-15 16:11] VITALS: RESP 18
[2018-06-15] MEDS ORDERED: ONDANSETRON 4 MG/2 ML VIAL IVP STA (16:19)
[2018-06-15] MEDS ORDERED: HYDROmorphone 1 MG/ML 1 ML SYRINGE IVP STA ×2 (16:19→19:12)
[2018-06-15] MEDS ORDERED: SODIUM CHLORIDE 0.9% 2,000 ML IV STA (16:19)
--- NOTE | 2018-06-15 17:38 | ED ---
Abdominal Pain HPI - General Chief Complaint: Abdominal Pain Stated Complaint: Abd pain Time Seen by Provider: 06/15/18 16:19 Source: patient, RN notes reviewed Mode of arrival: ambulatory Limitations: no limitations - History of Present Illness Initial Comments: 62-year-old female presents emergency Department chief complaint abdominal pain. Patient states it started this morning. Patient was recently discharged from the hospital for acute pancreatitis. Patient was scheduled appointment on Sunday with Javed Morley to have her stent placed in the pancreatic duct. Patient states that she does have a stone. Patient does admit to nausea vomiting slight diarrhea and no hematuria, dysuria, melena, hematochezia, hematemesis or coffee-ground emesis. - Related Data Home Medications Medication Instructions Recorded Confirmed Albuterol Inhaler [Ventolin Hfa 1 - 2 puff INHALATION RT-Q6H PRN 07/15/16 Inhaler] Albuterol Nebulized [Ventolin 2.5 mg INHALATION RT-QID PRN 08/31/16 06/15/18 Nebulized] amLODIPine [Norvasc] 10 mg PO DAILY 02/18/18 06/15/18 Gabapentin 800 mg PO QID 06/04/18 06/15/18 HYDROcodone/APAP 10-325MG [[place] 1 tab PO Q6H PRN 06/15/18 06/15/18 10-325] Previous Rx's Medication Instructions Recorded Famotidine [Pepcid] 20 mg PO BID #20 tablet 03/16/18 Benzocaine 20 % Gel [Orajel] 0.5 gm MM AC-BID PRN tube 06/14/18 traMADol HCL [Ultram] 100 mg PO DAILY PRN 3 Days #6 06/14/18 tablet Allergies Allergy/AdvReac Type Severity Reaction Status Date / Time No Known Allergies Allergy Verified 06/15/18 16:26 Review of Systems ROS Statement: Those systems with pertinent positive or pertinent negative responses have been documented in the HPI. ROS Other: All systems not noted in ROS Statement are negative. Past Medical History Past Medical History: Chest Pain / Angina, COPD, CVA/TIA, GERD/Reflux, Hypertension, Osteoarthritis (OA), Rheumatoid Arthritis (RA) Additional Past Medical History / Comment(s): admitted to [facility] on 02/18/18 with colitis/sepsis/R renal cyst. Other hx: Recurrent pancreatitis, bronchitis, TIA , anemia-unknown cause, migraines, ostoeporosis, past R femur fracture with surgery.past l2 compression fx, History of Any Multi-Drug Resistant Organisms: None Reported Past Surgical History: Appendectomy, Back Surgery, Cholecystectomy, Orthopedic Surgery, Tonsillectomy Additional Past Surgical History / Comment(s): Pancreatic stents-since removed, 6 back surgeries with 2 fusions, right oophorectomy due to ectopic , EGD/colonoscopy, right leg alice inserted d/t fracture, Past Anesthesia/Blood Transfusion Reactions: No Reported Reaction Additional Past Anesthesia/Blood Transfusion Reaction / Comment(s): Pt has received blood in past without reaction. Past Psychological History: No Psychological Hx Reported Smoking Status: Current every day smoker - Past Family History Father Family Medical History: Cancer, Liver Disease Additional Family Medical History / Comment(s): Father was an alcoholic. He from lung/ liver cancer. Mother Family Medical History: Cancer, CVA/TIA, Hypertension Additional Family Medical History / Comment(s): Mother had breast and colon cancer. She of liver cancer at the age of 78 yrs. General Exam Limitations: no limitations General appearance: alert, in no apparent distress Head exam: Present: atraumatic, normocephalic, normal inspection Respiratory exam: Present: normal lung sounds bilaterally. Absent: respiratory distress, wheezes, rales, rhonchi, stridor Cardiovascular Exam: Present: regular rate, normal rhythm, normal heart sounds. Absent: systolic murmur, diastolic murmur, rubs, gallop, clicks GI/Abdominal exam: Present: soft, tenderness (Moderate mid), normal bowel sounds. Absent: distended, guarding, rebound, rigid Back exam: Absent: CVA tenderness (R), CVA tenderness (L) Skin exam: Present: warm, dry, intact, normal color. Absent: rash Course Vital Signs 06/15/18 16:09 Temperature 98.5 F Pulse Rate 76 Respiratory 18 Rate Blood Pressure 148/74 O2 Sat by Pulse 100 Oximetry Medical Decision Making - Medical Decision Making 62-year-old female presents emergency Department for abdominal pain concerns for pancreatitis. Patient's laboratory unremarkable. Patient was hydrated given a dose pain medication does feel improved. Patient is supposed to follow- up with Javed Morley on Sunday and rediscussed return parameters. - Lab Data Result diagrams: 06/15/18 18:20 06/15/18 18:20 Lab Results 06/15/18 06/15/18 Range/Units 18:20 18:20 WBC 8.1 (3.8-10.6) k/uL RBC 4.58 (3.80-5.40) m/uL Hgb 12.9 (11.4-16.0) gm/dL Hct 40.2 (34.0-46.0) % MCV 87.7 (80.0-100.0) fL MCH 28.2 (25.0-35.0) pg MCHC 32.1 (31.0-37.0) g/dL RDW 14.6 (11.5-15.5) % Plt Count 469 H (150-450) k/uL Neutrophils % 64 % Lymphocytes % 26 % Monocytes % 5 % Eosinophils % 3 % Basophils % 0 % Neutrophils # 5.1 (1.3-7.7) k/uL Lymphocytes # 2.1 (1.0-4.8) k/uL Monocytes # 0.4 (0-1.0) k/uL Eosinophils # 0.2 (0-0.7) k/uL Basophils # 0.0 (0-0.2) k/uL Sodium 141 (137-145) mmol/L Potassium 4.7 (3.5-5.1) mmol/L Chloride 106 (98-107) mmol/L Carbon Dioxide 25 (22-30) mmol/L Anion Gap 10 mmol/L BUN 9 (7-17) mg/dL Creatinine 0.58 (0.52-1.04) mg/dL Est GFR (CKD-EPI)AfAm >90 (>60 ml/min/1.73 sqM) Est GFR (CKD-EPI)NonAf >90 (>60 ml/min/1.73 sqM) Glucose 84 (74-99) mg/dL Calcium 10.1 (8.4-10.2) mg/dL Total Bilirubin 0.3 (0.2-1.3) mg/dL AST 18 (14-36) U/L ALT 21 (9-52) U/L Alkaline Phosphatase 85 (38-126) U/L Total Protein 7.4 (6.3-8.2) g/dL Albumin 4.1 (3.5-5.0) g/dL Amylase 46 (30-110) U/L Lipase 164 (23-300) U/L Disposition Clinical Impression: Abdominal pain Disposition: HOME SELF-CARE Condition: Stable Instructions: Abdominal Pain (ED) Additional Instructions: Please return to the Emergency Department if symptoms worsen or any other concerns. Is patient prescribed a controlled substance at d/c from ED?: No Referrals: Reyse Russ MD [Primary Care Provider] - 1-2 days Time of Disposition: 19:14
[2018-06-15 18:43] LABS: Basophils % (A) 0 %; Eosinophils # (A) 0.2 k/uL (0-0.7); Eosinophils % (A) 3 %; HCT 40.2 % (34.0-46.0); HGB 12.9 gm/dL (11.4-16.0); Lymphocytes # (A) 2.1 k/uL (1.0-4.8); Lymphocytes % (A) 26 %; MCH 28.2 pg (25.0-35.0); MCHC 32.1 g/dL (31.0-37.0); MCV 87.7 fL (80.0-100.0); Mean Platelet Volume 6.6; Monocytes # (A) 0.4 k/uL (0-1.0); Monocytes % (A) 5 %; Neutrophils # (A) 5.1 k/uL (1.3-7.7); Neutrophils % (A) 64 %; Platelet Count 469 k/uL (150-450); RBC 4.58 m/uL (3.80-5.40); RDW 14.6 % (11.5-15.5); WBC 8.1 k/uL (3.8-10.6)
[2018-06-15 18:54] LABS: ALT 21 U/L (9-52); AST 18 U/L (14-36); Albumin 4.1 g/dL (3.5-5.0); Alkaline Phosphatase 85 U/L (38-126); Amylase 46 U/L (30-110); Anion Gap 10 mmol/L; Blood Urea Nitrogen 9 mg/dL (7-17); Calcium 10.1 mg/dL (8.4-10.2); Carbon Dioxide 25 mmol/L (22-30); Chloride 106 mmol/L (98-107); Glucose 84 mg/dL (74-99); Lipase 164 U/L (23-300); Potassium 4.7 mmol/L (3.5-5.1); Sodium 141 mmol/L (137-145); Total Bilirubin 0.3 mg/dL (0.2-1.3); Total Protein 7.4 g/dL (6.3-8.2)
[2018-06-15] MEDS ORDERED: traMADol 50 MG STARTER PACK 3 TAB BTL PO STA (19:12)
[2018-06-15 19:23] VITALS: BP 150/71; PULSE 80; TEMP 97.8
== END 2018-06-15 20:44 | disposition home or self-care (01) ==
LOC: EC 16:03
DX: R10.9 Unspecified abdominal pain (principal); R11.2 Nausea with vomiting, unspecified; R19.7 Diarrhea, unspecified; J44.9 Chronic obstructive pulmonary disease, unspecified; M06.9 Rheumatoid arthritis, unspecified; I10 Essential (primary) hypertension; F17.200 Nicotine dependence, unspecified, uncomplicated; Z79.899 Other long term (current) drug therapy; Z90.49 Acquired absence of other specified parts of digestive tract
CPT/HCPCS: 36415; 80053; 82150; 83690; 85025; 99284; 96374; 96375; 96376; 96361 ×2; J2405; J1170

== ENCOUNTER 2018-06-24 19:49 | Emergency (ER) | payer BC ==
[2018-06-24 19:54] VITALS: RESP 16
--- NOTE | 2018-06-24 20:17 | ED ---
General Adult HPI - General Chief complaint: Fall Stated complaint: slip & fall/hip pain Time Seen by Provider: 06/24/18 19:59 Source: patient, RN notes reviewed, old records reviewed Mode of arrival: ambulatory Limitations: no limitations - History of Present Illness Initial comments: 62-year-old presenting for evaluation of left hip pain. Patient had a trip and fall approximately 4 days prior to evaluation. She states she was moving some grocery bags, fell onto her left hip. Pain began shortly after the fall, described as throbbing. She has been ambulatory with a cane. Patient also states that she is getting over a case of bronchitis. She has history of COPD, proximally one week ago she was seen by her primary care physician for cough was prescribed steroids and antibiotics. She is feeling better from a respiratory standpoint, cough is improved. Denies fever or chills. Denies abdominal pain nausea vomiting. Denies dysuria or hematuria. - Related Data Home Medications Medication Instructions Recorded Confirmed Albuterol Inhaler [Ventolin Hfa 1 - 2 puff INHALATION RT-Q6H PRN 07/15/16 Inhaler] Albuterol Nebulized [Ventolin 2.5 mg INHALATION RT-QID PRN 08/31/16 06/24/18 Nebulized] amLODIPine [Norvasc] 10 mg PO DAILY 02/18/18 06/24/18 Gabapentin 800 mg PO QID 06/04/18 06/24/18 HYDROcodone/APAP 10-325MG [[place] 1 tab PO Q6H PRN 06/15/18 06/24/18 10-325] Budesonide/Formoterol Fumarate 2 puff INHALATION RT-BID 06/24/18 06/24/18 [Symbicort 160-4.5 Mcg Inhaler] Cephalexin [Keflex] 500 mg PO BID 06/24/18 06/24/18 guaiFENesin-Coden 100-10MG/5ML 10 ml PO Q6H PRN 06/24/18 06/24/18 [Robitussin AC] methylPREDNISolone [Medrol Dose See Taper PO DIRECTED 06/24/18 06/24/18 Pack] Previous Rx's Medication Instructions Recorded Famotidine [Pepcid] 20 mg PO BID #20 tablet 03/16/18 traMADol HCL [Ultram] 100 mg PO DAILY PRN 3 Days #6 10/12/18 tablet Allergies Allergy/AdvReac Type Severity Reaction Status Date / Time No Known Allergies Allergy Verified 06/24/18 20:06 Review of Systems ROS Statement: Those systems with pertinent positive or pertinent negative responses have been documented in the HPI. ROS Other: All systems not noted in ROS Statement are negative. Past Medical History Past Medical History: Chest Pain / Angina, COPD, CVA/TIA, GERD/Reflux, Hypertension, Osteoarthritis (OA), Rheumatoid Arthritis (RA) Additional Past Medical History / Comment(s): admitted to [facility] on 02/18/18 with colitis/sepsis/R renal cyst. Other hx: Recurrent pancreatitis, bronchitis, TIA , anemia-unknown cause, migraines, ostoeporosis, past R femur fracture with surgery.past l2 compression fx, History of Any Multi-Drug Resistant Organisms: None Reported Past Surgical History: Appendectomy, Back Surgery, Cholecystectomy, Orthopedic Surgery, Tonsillectomy Additional Past Surgical History / Comment(s): Pancreatic stents-since removed, 6 back surgeries with 2 fusions, right oophorectomy due to ectopic , EGD/colonoscopy, right leg alice inserted d/t fracture, Past Anesthesia/Blood Transfusion Reactions: No Reported Reaction Additional Past Anesthesia/Blood Transfusion Reaction / Comment(s): Pt has received blood in past without reaction. Past Psychological History: No Psychological Hx Reported Smoking Status: Current every day smoker Past Alcohol Use History: None Reported Past Drug Use History: None Reported - Past Family History Father Family Medical History: Cancer, Liver Disease Additional Family Medical History / Comment(s): Father was an alcoholic. He from lung/ liver cancer. Mother Family Medical History: Cancer, CVA/TIA, Hypertension Additional Family Medical History / Comment(s): Mother had breast and colon cancer. She of liver cancer at the age of 78 yrs. General Exam Limitations: no limitations General appearance: alert, in no apparent distress Head exam: Present: atraumatic, normocephalic Eye exam: Present: normal appearance, PERRL, EOMI ENT exam: Present: normal exam Neck exam: Present: normal inspection. Absent: tenderness, meningismus Respiratory exam: Present: normal lung sounds bilaterally, wheezes. Absent: respiratory distress, rhonchi Cardiovascular Exam: Present: regular rate, normal rhythm GI/Abdominal exam: Present: soft. Absent: distended, tenderness, guarding Extremities exam: Present: normal inspection, tenderness (Tenderness over the lateral aspect of the left hip. Patient is ambulatory. Mild pain with range of motion. Normal knee exam. ) Back exam: Present: normal inspection, full ROM. Absent: tenderness, CVA tenderness (R), CVA tenderness (L), paraspinal tenderness, vertebral tenderness Neurological exam: Present: alert, oriented X3, CN II-XII intact, normal gait. Absent: motor sensory deficit Psychiatric exam: Present: normal affect, normal mood Skin exam: Present: warm, dry, intact. Absent: cyanosis, diaphoretic Course Vital Signs 06/24/18 19:50 Temperature 100.8 F H Pulse Rate 74 Respiratory 16 Rate Blood Pressure 163/75 O2 Sat by Pulse 98 Oximetry Medical Decision Making - Medical Decision Making 62-year-old female presenting for evaluation of left hip pain status post fall which occurred 4 days prior. Patient has been ambulatory with some pain. She is overall well-appearing, stable blood pressure, normal heart rate, she does have a low-grade temperature of 100.8, she did have recent URI and was treated with antibiotics and steroids. This is likely residual as she has some mild persistent cough and and expiratory wheezing. No rhonchi and exam. Chest x- ray was obtained which is negative for focal pneumonia. Patient's hip pain status post fall is evaluated with x-ray of the left hip and pelvis. This is negative for fracture or dislocation. Patient will continue anti- inflammatories at home. She will monitor for fever. Septic arthritis is on the differential for this patient with a very low-grade fever and hip pain however her pain came after trauma and she is otherwise well-appearing. Normal blood pressure and heart rate. Temperature is likely related to bronchitis and not septic arthritis. She will monitor for fever and worsening pain in the hip and return with the development of these symptoms. - Lab Data Lab Results 06/24/18 Range/Units 20:30 Urine Color Light Yellow Urine Appearance Clear (Clear) Urine pH 6.0 (5.0-8.0) Ur Specific [place] 1.007 (1.001-1.035) Urine Protein Negative (Negative) Urine Glucose (UA) Negative (Negative) Urine Ketones Negative (Negative) Urine Blood Small H (Negative) Urine Nitrite Negative (Negative) Urine Bilirubin Negative (Negative) Urine Urobilinogen <2.0 (<2.0) mg/dL Ur Leukocyte Esterase Moderate H (Negative) Urine RBC 4 (0-5) /hpf Urine WBC 3 (0-5) /hpf Ur Squamous Epith Cells 4 (0-4) /hpf Amorphous Sediment Rare H (None) /hpf Urine Bacteria Rare H (None) /hpf Disposition Clinical Impression: Fall, Contusion, hip, Bronchitis Disposition: HOME SELF-CARE Condition: Good Instructions: Hip Contusion (ED) Is patient prescribed a controlled substance at d/c from ED?: No Referrals: Reyes Russ MD [Primary Care Provider] - 1-2 days Time of Disposition: 21:11
[2018-06-24 20:47] LABS: Amorphous Sediment,Urine Rare /hpf; Appearance,Urine Clear (Clear); Bacteria,Urine Rare /hpf; Bilirubin,Urine Negative (Negative); Blood,Urine Small (Negative); Color,Urine Light Yellow; Glucose,Urine (UA) Negative (Negative); Ketones,Urine Negative (Negative); Leukocyte Esterase,Urine Moderate (Negative); Nitrite,Urine Negative (Negative); Protein,Urine Negative (Negative); RBC,Urine 4 /hpf (0-5); Specific Gravity,Urine 1.007 (1.001-1.035); Squamous Epithelial Cell,Urine 4 /hpf (0-4); Urobilinogen,Urine <2.0 mg/dL (<2.0); WBC,Urine 3 /hpf (0-5)
--- NOTE | 2018-06-24 21:07 | XR ---
EXAMINATION TYPE: XR chest 2V DATE OF EXAM: 06/24/2018 COMPARISON: [id number] HISTORY: Fever TECHNIQUE: Frontal and lateral views of the chest are obtained. FINDINGS: Heart and mediastinum are normal. Lungs are clear. Diaphragm is normal. Bony thorax is int act. IMPRESSION: Normal chest. No change.
--- NOTE | 2018-06-24 21:08 | XR ---
EXAMINATION TYPE: XR Hip LT and AP Pelvis DATE OF EXAM: 06/24/2018 COMPARISON: NONE HISTORY: Left hip pain after a fall TECHNIQUE: A single AP view of the pelvis is obtained. Two views of the left hip are obtained. FINDINGS: The pelvic ring is intact. Proximal left femur and hip joint appear intact. There is mild a cetabular spurring. Sacroiliac joints are intact. There is lumbar spine fusion surgery noted. There i s some spurring at the greater trochanter of the left femur. IMPRESSION: No acute abnormality of the pelvis and left hip.
[2018-06-24 21:32] VITALS: BP 115/54; PULSE 66; TEMP 99.9
== END 2018-06-24 21:31 | disposition home or self-care (01) ==
LOC: EC 19:49
DX: S70.02XA Contusion of left hip, initial encounter (principal); J44.9 Chronic obstructive pulmonary disease, unspecified; I10 Essential (primary) hypertension; M06.9 Rheumatoid arthritis, unspecified; M19.90 Unspecified osteoarthritis, unspecified site; F17.200 Nicotine dependence, unspecified, uncomplicated; Z86.73 Personal history of transient ischemic attack (TIA), and cerebral infarction without residual deficits; Z79.51 Long term (current) use of inhaled steroids; Z79.899 Other long term (current) drug therapy; W01.0XXA Fall on same level from slipping, tripping and stumbling without subsequent striking against object, initial encounter; Y92.009 Unspecified place in unspecified non-institutional (private) residence as the place of occurrence of the external cause
CPT/HCPCS: 71046; 73502; 81001; 99284

== ENCOUNTER → 2018-08-29 | Outpatient (CLI) | payer BC ==
--- NOTE | 2018-08-30 03:02 | MR ---
EXAMINATION TYPE: MR hip LT wo con DATE OF EXAM: 08/29/2018 COMPARISON: None HISTORY: Left hip pain with limited ROM x6 months Standard multiplanar, multisequence MRI departmental protocol Multiplanar, multisequence images of the left hip were acquired. FINDINGS: The acetabula are fairly symmetric. The proximal femurs are intact with fairly normal sign al pattern. There is no evidence of avascular necrosis. Hip joint fluid is fairly symmetric and joy l. There is no evidence of a soft tissue mass. I see no focal bone destruction. There is metal artifa ct from right femoral shaft surgery. The sacroiliac joints appear intact. There is no evidence of a p elvic mass. Bladder distends smoothly. There is no sign of free fluid in the pelvis. IMPRESSION: Normal MR scan of the left hip. no evidence of avascular necrosis. No evidence of hip dysplasia or f racture.
== END | disposition home or self-care (01) ==
LOC: RADMRIMAIN 19:35
PROVIDERS: ATTEND Nurse Practitioner Adult Health
DX: M25.552 Pain in left hip (principal)

== ENCOUNTER 2018-09-03 14:12 | Inpatient (IN) | payer BC ==
[2018-09-03] MEDS ORDERED: SODIUM CHLORIDE 0.9% 1,000 ML IV STA (15:53)
[2018-09-03] MEDS ORDERED: HYDROmorphone 0.5 MG/0.5 ML SYRINGE IVP STA ×2 (16:13→18:04)
[2018-09-03] MEDS ORDERED: ONDANSETRON 4 MG/2 ML VIAL IVP STA (16:18)
[2018-09-03 16:24] LABS: Basophils % (A) 0 %; Eosinophils # (A) 0.1 k/uL (0-0.7); Eosinophils % (A) 1 %; HCT 45.2 % (34.0-46.0); HGB 13.9 gm/dL (11.4-16.0); Lymphocytes # (A) 1.9 k/uL (1.0-4.8); Lymphocytes % (A) 19 %; MCH 27.5 pg (25.0-35.0); MCHC 30.7 g/dL (31.0-37.0); MCV 89.7 fL (80.0-100.0); Mean Platelet Volume 6.2; Monocytes # (A) 0.2 k/uL (0-1.0); Monocytes % (A) 2 %; Neutrophils # (A) 7.8 k/uL (1.3-7.7); Neutrophils % (A) 76 %; Platelet Count 398 k/uL (150-450); RBC 5.04 m/uL (3.80-5.40); RDW 15.2 % (11.5-15.5); WBC 10.3 k/uL (3.8-10.6)
[2018-09-03 16:37] LABS: ALT 42 U/L (9-52); AST 28 U/L (14-36); Albumin 4.6 g/dL (3.5-5.0); Alkaline Phosphatase 93 U/L (38-126); Amylase 33 U/L (30-110); Anion Gap 9 mmol/L; Blood Urea Nitrogen 13 mg/dL (7-17); Calcium 10.4 mg/dL (8.4-10.2); Carbon Dioxide 18 mmol/L (22-30); Chloride 114 mmol/L (98-107); Glucose 134 mg/dL (74-99); Lipase 56 U/L (23-300); Potassium 3.7 mmol/L (3.5-5.1); Sodium 141 mmol/L (137-145); Total Bilirubin 0.5 mg/dL (0.2-1.3); Total Protein 7.9 g/dL (6.3-8.2)
--- NOTE | 2018-09-03 17:24 | XR ---
EXAMINATION TYPE: XR KUB DATE OF EXAM: 09/03/2018 COMPARISON: 05/06/2018 HISTORY: Abdominal pain TECHNIQUE: 2 views FINDINGS: There is no sign of intestinal obstruction or pneumoperitoneum. Fecal pattern is normal. Th ere is vertebroplasty in the lumbar spine at L3. Fecal pattern is normal. Lung bases are clear. There are no pathologic calcifications over the kidneys. IMPRESSION: Nonacute abdomen. No change.
--- NOTE | 2018-09-03 17:35 | ED ---
General Adult HPI - General Chief complaint: Abdominal Pain Stated complaint: Vomiting/stomach pain Source: patient, RN notes reviewed, old records reviewed Mode of arrival: ambulatory Limitations: no limitations - History of Present Illness Initial comments: 62-year-old female patient past medical history of chronic pancreatitis, COPD, hypertension presents to ED with 1 day of abdominal pain. Patient states that this feels like they could headache she has experienced in the past. Patient reports that she most recently had pancreatitis approximately 2 months ago. Patient reports the pain that she is experiencing is epigastric, sharp/stabbing in nature. Patient reports that she has had approximately 3 episodes of nausea and vomiting since this morning. Patient denies any recent alcohol usage. Patient denies any chest pain or shortness of breath. Patient denies other complaints. Systemic: Pt denies fatigue, myalgia, fever/chills, rash. Pt denies weakness, night sweats, weight loss. Neuro: Pt denies headache, visual disturbances, syncope or pre-syncope. HEENT: Pt denies ocular discharge or irritation, otalgia, rhinorrhea, pharyngitis or notable lymphadenopathy. Cardiopulmonary: Pt denies chest pain, SOB, heart palpitations, dyspnea on exertion. : Pt denies dysuria, burning w/ urination, frequency/urgency. Denies new onset urinary or bowel incontinence. MSK: Pt denies myalgia, loss of strength or function in extremities. Neuro: Pt denies new onset weakness, paresthesias. - Related Data Home Medications Medication Instructions Recorded Confirmed Albuterol Inhaler [Ventolin Hfa 1 - 2 puff INHALATION RT-Q6H PRN 07/15/16 Inhaler] Albuterol Nebulized [Ventolin 2.5 mg INHALATION RT-QID PRN 08/31/16 09/03/18 Nebulized] Gabapentin 800 mg PO QID 06/04/18 09/03/18 HYDROcodone/APAP 10-325MG [[place] 1 tab PO Q6H PRN 06/15/18 09/03/18 10-325] amLODIPine BESYLATE/BENAZEPRIL 1 cap PO DAILY 09/03/18 09/03/18 [Lotrel 10-20 mg Capsule] Allergies Allergy/AdvReac Type Severity Reaction Status Date / Time No Known Allergies Allergy Verified 09/03/18 16:03 Review of Systems ROS Statement: Those systems with pertinent positive or pertinent negative responses have been documented in the HPI. ROS Other: All systems not noted in ROS Statement are negative. Past Medical History Past Medical History: Chest Pain / Angina, COPD, CVA/TIA, GERD/Reflux, Hypertension, Osteoarthritis (OA), Rheumatoid Arthritis (RA) Additional Past Medical History / Comment(s): admitted to [facility] on 02/18/18 with colitis/sepsis/R renal cyst. Other hx: Recurrent pancreatitis, bronchitis, TIA , anemia-unknown cause, migraines, ostoeporosis, past R femur fracture with surgery.past l2 compression fx, History of Any Multi-Drug Resistant Organisms: None Reported Past Surgical History: Appendectomy, Back Surgery, Cholecystectomy, Orthopedic Surgery, Tonsillectomy Additional Past Surgical History / Comment(s): Pancreatic stents-since removed, 6 back surgeries with 2 fusions, right oophorectomy due to ectopic , EGD/colonoscopy, right leg alice inserted d/t fracture, Past Anesthesia/Blood Transfusion Reactions: No Reported Reaction Additional Past Anesthesia/Blood Transfusion Reaction / Comment(s): Pt has received blood in past without reaction. Past Psychological History: No Psychological Hx Reported Smoking Status: Current every day smoker Past Alcohol Use History: None Reported Past Drug Use History: None Reported - Past Family History Father Family Medical History: Cancer, Liver Disease Additional Family Medical History / Comment(s): Father was an alcoholic. He from lung/ liver cancer. Mother Family Medical History: Cancer, CVA/TIA, Hypertension Additional Family Medical History / Comment(s): Mother had breast and colon cancer. She of liver cancer at the age of 78 yrs. General Exam - General Exam Comments Initial Comments: Constitutional: NAD, AOX3, Pt has pleasant affect. HEENT: NC/AT, trachea midline, neck supple, no lymphadenopathy. Posterior pharynx non erythematous, without exudates. External ears appear normal, without discharge. Mucous membranes moist. Eyes PERRLA, EOM intact. There is no scleral icterus. No pallor noted. Cardiopulmonary: RRR, no murmurs, rubs or gallops, no JVD noted. Lungs CTAB in anterior and posterior lerma. No peripheral edema. Abdominal exam: Abdomen soft and non-distended. Abdomen mildly tender to palpation in the epigastric region, no ecchymoses, no guarding or rigidity, no other areas of tenderness. Bowel sounds active in LLQ. No hepatosplenomegaly. No ecchymosis Neuro: CN II-XII grossly intact. No nuchal rigidity. MSK: No posterior calf tenderness bilaterally, homans sign negative bilaterally. Posterior tibialis and radial pulse +2 bilaterally. Sensation intact in upper and lower extremities. Full active ROM in upper and lower extremities, 5/5 stregnth. Limitations: no limitations Course Vital Signs 09/03/18 09/03/18 09/03/18 14:32 16:00 17:30 Temperature 98.3 F Pulse Rate 86 87 85 Pulse Rate [ Pulse Oximetery ] Respiratory 18 18 18 Rate Blood Pressure 125/78 112/90 130/68 Blood Pressure [Left Arm] O2 Sat by Pulse 99 100 96 Oximetry 09/03/18 09/03/18 09/03/18 18:00 19:00 19:30 Temperature Pulse Rate 88 88 Pulse Rate [ Pulse Oximetery ] Respiratory 18 18 Rate Blood Pressure 131/69 105/75 120/64 Blood Pressure [Left Arm] O2 Sat by Pulse 97 98 96 Oximetry 09/03/18 09/03/18 09/03/18 20:00 20:30 22:21 Temperature 98.6 F Pulse Rate 82 Pulse Rate [ 96 Pulse Oximetery ] Respiratory 20 18 Rate Blood Pressure 125/70 129/78 Blood Pressure 118/73 [Left Arm] O2 Sat by Pulse 95 96 96 Oximetry Medical Decision Making - Medical Decision Making 62-year-old female patient past medical history of chronic pancreatitis, COPD, hypertension presents to ED with 1 day of abdominal pain. Patient states that this feels like they could headache she has experienced in the past. Patient reports that she most recently had pancreatitis approximately 2 months ago. Patient reports the pain that she is experiencing is epigastric, sharp/stabbing in nature. Patient reports that she has had approximately 3 episodes of nausea and vomiting since this morning. Patient denies any recent alcohol usage. Patient denies any chest pain or shortness of breath. Patient denies other complaints. Physical exam displayed a mildly tender abdomen in the epigastric region. No guarding or rigidity. No ecchymoses. Non-impressive CBC, nonimpressive CMP. UA displayed was contaminated, will culture. KUB displayed no acute abdomen no change. CT abdomen and pelvis displayed to sit describes a chronic changes consistent with chronic pancreatitis. CT abdomen pelvis displayed findings consistent with small bowel ileus. Patient reports that she did have bowel movement and passed gas today. Explained findings to patient. Shared decision making, patient elected to be admitted for continued management. Case discussed with Dr. Knott. - Lab Data Result diagrams: 09/03/18 16:00 09/03/18 16:00 Lab Results 09/03/18 09/03/18 09/03/18 Range/Units 16:00 16:00 16:00 WBC 10.3 (3.8-10.6) k/uL RBC 5.04 (3.80-5.40) m/uL Hgb 13.9 (11.4-16.0) gm/dL Hct 45.2 (34.0-46.0) % MCV 89.7 (80.0-100.0) fL MCH 27.5 (25.0-35.0) pg MCHC 30.7 L (31.0-37.0) g/dL RDW 15.2 (11.5-15.5) % Plt Count 398 (150-450) k/uL Neutrophils % 76 % Lymphocytes % 19 % Monocytes % 2 % Eosinophils % 1 % Basophils % 0 % Neutrophils # 7.8 H (1.3-7.7) k/uL Lymphocytes # 1.9 (1.0-4.8) k/uL Monocytes # 0.2 (0-1.0) k/uL Eosinophils # 0.1 (0-0.7) k/uL Basophils # 0.0 (0-0.2) k/uL Sodium 141 (137-145) mmol/L Potassium 3.7 (3.5-5.1) mmol/L Chloride 114 H (98-107) mmol/L Carbon Dioxide 18 L (22-30) mmol/L Anion Gap 9 mmol/L BUN 13 (7-17) mg/dL Creatinine 0.77 (0.52-1.04) mg/dL Est GFR (CKD-EPI)AfAm >90 (>60 ml/min/1.73 sqM) Est GFR (CKD-EPI)NonAf 83 (>60 ml/min/1.73 sqM) Glucose 134 H (74-99) mg/dL Plasma Lactic Acid Derek 1.4 (0.7-2.0) mmol/L Calcium 10.4 H (8.4-10.2) mg/dL Total Bilirubin 0.5 (0.2-1.3) mg/dL AST 28 (14-36) U/L ALT 42 (9-52) U/L Alkaline Phosphatase 93 (38-126) U/L Total Protein 7.9 (6.3-8.2) g/dL Albumin 4.6 (3.5-5.0) g/dL Amylase 33 (30-110) U/L Lipase 56 (23-300) U/L Urine Color Urine Appearance (Clear) Urine pH (5.0-8.0) Ur Specific [place] (1.001-1.035) Urine Protein (Negative) Urine Glucose (UA) (Negative) Urine Ketones (Negative) Urine Blood (Negative) Urine Nitrite (Negative) Urine Bilirubin (Negative) Urine Urobilinogen (<2.0) mg/dL Ur Leukocyte Esterase (Negative) Urine RBC (0-5) /hpf Urine WBC (0-5) /hpf Ur Squamous Epith Cells (0-4) /hpf Urine Bacteria (None) /hpf Hyaline Casts (0-2) /lpf Urine Mucus (None) /hpf Urine HCG, Qual (Not Detectd) 09/03/18 09/03/18 Range/Units 18:38 18:38 WBC (3.8-10.6) k/uL RBC (3.80-5.40) m/uL Hgb (11.4-16.0) gm/dL Hct (34.0-46.0) % MCV (80.0-100.0) fL MCH (25.0-35.0) pg MCHC (31.0-37.0) g/dL RDW (11.5-15.5) % Plt Count (150-450) k/uL Neutrophils % % Lymphocytes % % Monocytes % % Eosinophils % % Basophils % % Neutrophils # (1.3-7.7) k/uL Lymphocytes # (1.0-4.8) k/uL Monocytes # (0-1.0) k/uL Eosinophils # (0-0.7) k/uL Basophils # (0-0.2) k/uL Sodium (137-145) mmol/L Potassium (3.5-5.1) mmol/L Chloride (98-107) mmol/L Carbon Dioxide (22-30) mmol/L Anion Gap mmol/L BUN (7-17) mg/dL Creatinine (0.52-1.04) mg/dL Est GFR (CKD-EPI)AfAm (>60 ml/min/1.73 sqM) Est GFR (CKD-EPI)NonAf (>60 ml/min/1.73 sqM) Glucose (74-99) mg/dL Plasma Lactic Acid Derek (0.7-2.0) mmol/L Calcium (8.4-10.2) mg/dL Total Bilirubin (0.2-1.3) mg/dL AST (14-36) U/L ALT (9-52) U/L Alkaline Phosphatase (38-126) U/L Total Protein (6.3-8.2) g/dL Albumin (3.5-5.0) g/dL Amylase (30-110) U/L Lipase (23-300) U/L Urine Color Yellow Urine Appearance Clear (Clear) Urine pH 7.0 (5.0-8.0) Ur Specific [place] 1.008 (1.001-1.035) Urine Protein Trace H (Negative) Urine Glucose (UA) Negative (Negative) Urine Ketones 1+ H (Negative) Urine Blood Small H (Negative) Urine Nitrite Negative (Negative) Urine Bilirubin Negative (Negative) Urine Urobilinogen <2.0 (<2.0) mg/dL Ur Leukocyte Esterase Trace H (Negative) Urine RBC 8 H (0-5) /hpf Urine WBC 2 (0-5) /hpf Ur Squamous Epith Cells 8 H (0-4) /hpf Urine Bacteria Rare H (None) /hpf Hyaline Casts 11 H (0-2) /lpf Urine Mucus Moderate H (None) /hpf Urine HCG, Qual Not Detected (Not Detectd) Disposition Clinical Impression: Ileus, unspecified, Abdominal pain Disposition: ADMITTED IP TO THIS HOSP Condition: Fair Is patient prescribed a controlled substance at d/c from ED?: No
[2018-09-03 18:55] LABS: Appearance,Urine Clear (Clear); Bacteria,Urine Rare /hpf; Bilirubin,Urine Negative (Negative); Blood,Urine Small (Negative); Color,Urine Yellow; Glucose,Urine (UA) Negative (Negative); Hyaline Casts,Urine 11 /lpf (0-2); Ketones,Urine 1+ (Negative); Leukocyte Esterase,Urine Trace (Negative); Mucus,Urine Moderate /hpf; Nitrite,Urine Negative (Negative); Protein,Urine Trace (Negative); RBC,Urine 8 /hpf (0-5); Specific Gravity,Urine 1.008 (1.001-1.035); Squamous Epithelial Cell,Urine 8 /hpf (0-4); Urobilinogen,Urine <2.0 mg/dL (<2.0)
--- NOTE | 2018-09-03 19:55 | CT ---
EXAMINATION TYPE: CT abdomen pelvis w con DATE OF EXAM: 09/03/2018 COMPARISON: 05/13/2018 HISTORY: Mid abdominal pain today. CT DLP: 685.6 mGycm Automated exposure control for dose reduction was used. TECHNIQUE: Helical acquisition of images was performed from the lung bases through the pelvis. CONTRAST: Performed without Oral Contrast and with IV Contrast, patient injected with 100 mL of Isovue 300. FINDINGS: Lung bases are clear. There is no pleural effusion. Heart size is normal. There is no pericardial eff usion. The bile ducts are mildly ectatic. There are clips from cholecystectomy. Common bile duct measures 12 mm. Spleen appears normal. There is some pancreatic atrophy. There is ectasia of the pancreatic duct . I see no pancreatic mass. The stomach appears normal. There is no adrenal mass. There is 1 cm cortical cyst upper pole right ki dney. Kidneys show satisfactory contrast opacification. There is no hydronephrosis. Ureters are not d ilated. There is no retroperitoneal adenopathy. Abdominal aorta is atheromatous. Bladder distends smoothly. Uterus is anteverted. There is no free fluid in the pelvis. There is no in guinal hernia. There is multilevel fusion surgery in the lumbar spine. There is 25% wedging of L2 ned tebra that appears old. Abdominal aorta is atheromatous. There is no mesenteric edema or adenopathy. There are distended gas and fluid-filled loops of small bowel that measure up to 2.7 cm. The distal i leum is not dilated. There is no transition point identified. The appendix is not seen. There is no s ign of appendicitis. IMPRESSION: PANCREATIC ATROPHY CONSISTENT WITH CHRONIC PANCREATITIS. CHRONIC DILATED BILIARY TREE CONSISTENT WITH CHOLECYSTECTOMY. NO CHANGE. PANCREAS NO CHANGE. THERE ARE SOME DISTENDED GAS AND FLUID-FILLED LOOPS OF SMALL BOWEL IN THE MID AND UPPER ABDOMEN CONS ISTENT WITH SMALL BOWEL ILEUS THAT IS A CHANGE COMPARED TO OLD EXAM. PARTIAL MECHANICAL OBSTRUCTION C ANNOT BE ENTIRELY EXCLUDED. THERE ARE FLUID LEVELS IN THE LARGE BOWEL THAT FAVORS INTESTINAL ILEUS AN D GASTROENTERITIS.
[2018-09-03] MEDS ORDERED: HYDROmorphone 0.5 MG/0.5 ML SYRINGE IVP PRN (20:13)
[2018-09-03] MEDS ORDERED: NALOXONE 0.4 MG/ML 1 ML VIAL IV PRN ×2 (20:13→21:57)
[2018-09-03] MEDS ORDERED: ACETAMINOPHEN TAB 325 MG TAB PO PRN (20:13)
[2018-09-03] MEDS ORDERED: SODIUM CHLORIDE 0.9% 1,000 ML IV SCH ×2 (20:15→22:00)
--- NOTE | 2018-09-03 22:07 | P.HPIM ---
History of Present Illness H&P Date: 09/03/18 Chief Complaint: Abdominal pain 62-year-old female patient past medical history of chronic pancreatitis, COPD, hypertension presents to ED with abdominal pain that started this morning. Patient reports the pain that she is experiencing is epigastric, sharp/stabbing in nature. Associated symptoms include nausea and vomiting, all day and 2 episodes of diarrhea this morning. Since this morning she has not had any flatus. No hematochezia or hematemesis. She experience similar symptoms in the past about a year ago when she was diagnosed with bowel obstruction. Patient reports that she most recently had pancreatitis approximately 2 months ago. No sick contacts or recent travel. Patient denies any recent alcohol usage. Patient denies any chest pain or shortness of breath. Patient denies other complaints. Review of Systems 12 point review of system was performed, negative except for HPI Past Medical History Past Medical History: Chest Pain / Angina, COPD, CVA/TIA, GERD/Reflux, Hypertension, Osteoarthritis (OA), Rheumatoid Arthritis (RA) Additional Past Medical History / Comment(s): admitted to [facility] on 02/18/18 with colitis/sepsis/R renal cyst. Other hx: Recurrent pancreatitis, bronchitis, TIA , anemia-unknown cause, migraines, ostoeporosis, past R femur fracture with surgery.past l2 compression fx, History of Any Multi-Drug Resistant Organisms: None Reported Past Surgical History: Appendectomy, Back Surgery, Cholecystectomy, Orthopedic Surgery, Tonsillectomy Additional Past Surgical History / Comment(s): Pancreatic stents-since removed, 6 back surgeries with 2 fusions, right oophorectomy due to ectopic , EGD/colonoscopy, right leg alice inserted d/t fracture, Past Anesthesia/Blood Transfusion Reactions: No Reported Reaction Additional Past Anesthesia/Blood Transfusion Reaction / Comment(s): Pt has received blood in past without reaction. Past Psychological History: No Psychological Hx Reported Smoking Status: Current every day smoker Past Alcohol Use History: None Reported Past Drug Use History: None Reported - Past Family History Father Family Medical History: Cancer, Liver Disease Additional Family Medical History / Comment(s): Father was an alcoholic. He from lung/ liver cancer. Mother Family Medical History: Cancer, CVA/TIA, Hypertension Additional Family Medical History / Comment(s): Mother had breast and colon cancer. She of liver cancer at the age of 78 yrs. Medications and Allergies Home Medications Medication Instructions Recorded Confirmed Type Albuterol Inhaler [Ventolin Hfa 1 - 2 puff INHALATION RT-Q6H PRN 07/15/16 History Inhaler] Albuterol Nebulized [Ventolin 2.5 mg INHALATION RT-QID PRN 08/31/16 09/03/18 History Nebulized] Gabapentin 800 mg PO QID 06/04/18 09/03/18 History HYDROcodone/APAP 10-325MG [[place] 1 tab PO Q6H PRN 06/15/18 09/03/18 History 10-325] amLODIPine BESYLATE/BENAZEPRIL 1 cap PO DAILY 09/03/18 09/03/18 History [Lotrel 10-20 mg Capsule] Allergies Allergy/AdvReac Type Severity Reaction Status Date / Time No Known Allergies Allergy Verified 09/03/18 16:03 Physical Exam Vitals: Vital Signs Temp Pulse Resp BP Pulse Ox 09/03/18 20:30 82 20 129/78 96 09/03/18 20:00 125/70 95 09/03/18 19:30 120/64 96 09/03/18 19:00 88 18 105/75 98 09/03/18 18:00 88 18 131/69 97 09/03/18 17:30 85 18 130/68 96 09/03/18 16:00 87 18 112/90 100 09/03/18 14:32 98.3 F 86 18 125/78 99 Intake and Output 09/03/18 09/03/18 09/03/18 06:59 14:59 22:59 Other: Weight 60.781 kg Constitutional: No acute distress, conversant, pleasant Eyes:Anicteric sclerae, moist conjunctiva, no lid-lag, PERRLA, ENMT: Oropharynx clear, no erythema, exudates Neck: Supple, FROM, no masses, or JVD, No carotid bruits, No thyromegaly Lungs: Clear to auscultation, Clear to percussion, Normal respiratory effort, no accessory muscle use Cardiovascular: Heart regular in rate and rhythm, No murmurs, gallops, or rubs, No peripheral edema Abdominal: distended, tense, diffusely tender, no guarding, rebound or rigidity , No hepatomegaly, No splenomegaly, No palpable mass Skin: Normal temperature, tone, texture, turgor, no induration, No subcutaneous nodules, No rash, lesions, No ulcers Extremities: No digital cyanosis, No clubbing, Pedal pulses intact and symmetrical, Radial pulses intact and symmetrical, No calf tenderness Psychiatric: Alert and oriented to person, place and time, appropriate affect, intact judgement Neuro: Muscles Strength 5/5 in all 4 extremities, Sensation to light touch grossly present throughout, Cranial nerves II-XII grossly intact, no focal sensory deficits Results CBC & Chem 7: 09/03/18 16:00 09/03/18 16:00 Labs: Abnormal Lab Results - Last 24 Hours (Table) 09/03/18 09/03/18 09/03/18 Range/Units 16:00 16:00 18:38 MCHC 30.7 L (31.0-37.0) g/dL Neutrophils # 7.8 H (1.3-7.7) k/uL Chloride 114 H (98-107) mmol/L Carbon Dioxide 18 L (22-30) mmol/L Glucose 134 H (74-99) mg/dL Calcium 10.4 H (8.4-10.2) mg/dL Urine Protein Trace H (Negative) Urine Ketones 1+ H (Negative) Urine Blood Small H (Negative) Ur Leukocyte Esterase Trace H (Negative) Urine RBC 8 H (0-5) /hpf Ur Squamous Epith Cells 8 H (0-4) /hpf Urine Bacteria Rare H (None) /hpf Hyaline Casts 11 H (0-2) /lpf Urine Mucus Moderate H (None) /hpf Assessment and Plan Plan: Acute small bowel obstruction/acute ileus versus gastroenteritis: CT abdomen reviewed IV fluids Consult general surgery Nothing by mouth Pain control with Dilaudid IV Zofran for nausea Chronic COPD, hx of CVA/TIA, GERD/Reflux, Hypertension, Osteoarthritis (OA), Rheumatoid Arthritis (RA): Hold po meds for now sec to above DVT prophylaxis" Ambulatory risk is low
[2018-09-03] MEDS: HYDROmorphone 1 MG/ML 1 ML SYRINGE IV PRN (22:38)
[2018-09-04] MEDS: HYDROmorphone 1 MG/ML 1 ML SYRINGE IV PRN ×2 (02:36→05:30)
[2018-09-04] MEDS ORDERED: ALBUTEROL NEBULIZED 2.5 MG/3 ML INHALATION PRN (07:59)
[2018-09-04] MEDS: LACTATED RINGERS 1,000 ML IV SCH ×2 (08:08→17:09)
[2018-09-04] MEDS: MORPHINE SULFATE 4 MG/ML SYRINGE IVP PRN ×4 (08:09→20:10)
[2018-09-04 08:50] LABS: Basophils % (A) 0 %; Eosinophils # (A) 0.1 k/uL (0-0.7); Eosinophils % (A) 1 %; HCT 42.1 % (34.0-46.0); HGB 13.3 gm/dL (11.4-16.0); Lymphocytes # (A) 2.8 k/uL (1.0-4.8); Lymphocytes % (A) 38 %; MCH 27.7 pg (25.0-35.0); MCHC 31.6 g/dL (31.0-37.0); MCV 87.4 fL (80.0-100.0); Mean Platelet Volume 6.8; Monocytes # (A) 0.4 k/uL (0-1.0); Monocytes % (A) 5 %; Neutrophils % (A) 54 %; Platelet Count 372 k/uL (150-450); RBC 4.82 m/uL (3.80-5.40); RDW 15.5 % (11.5-15.5); WBC 7.4 k/uL (3.8-10.6)
[2018-09-04 08:55] LABS: Anion Gap 6 mmol/L; Blood Urea Nitrogen 9 mg/dL (7-17); Calcium 9.4 mg/dL (8.4-10.2); Carbon Dioxide 20 mmol/L (22-30); Chloride 116 mmol/L (98-107); Glucose 100 mg/dL (74-99); Magnesium 1.8 mg/dL (1.6-2.3); Phosphorus 3.6 mg/dL (2.5-4.5); Potassium 3.9 mmol/L (3.5-5.1); Sodium 142 mmol/L (137-145)
--- NOTE | 2018-09-04 10:35 | P.PN ---
Subjective Patient is a 62-year-old female with history of recurrent and chronic pancreatitis with chronic use of [place] due to this and will she said is chronic low back pain. She is now coming with one day of mid abdominal and right lower quadrant abdominal pain and colicky nature at times than a 10 out of 10, no particular alleviating or aggravating factors no particular provoking factors. Started yesterday fairly quick and digits maximum intensity of a few hours. Initially was accompanied by some nausea that now resolved and there is no vomiting. No fever or chills. Last bowel movement was yesterday morning loose in nature and prior to that she states that she had bowel movements almost daily. She takes Colace normally. CT of the abdomen showed findings consistent with ileus without von mechanical obstruction and some air-fluid levels without von mechanical obstruction the large bowel and possible gastroenteritis. Patient states that she had colonoscopy and EGD many years ago and at that time there are findings of some polyps and she was never told she had a gastritis or ulcers. She denies taking any NSAIDs. Currently she is feeling better except for the pain. She does not have any nausea or vomiting earache she's passing gas. She is ambulating in the room to the bathroom and back and per nursing staff he looks quite comfortable with that. REVIEW OF SYSTEMS: CONSTITUTIONAL: No fever or chills HEENT: No changes in vision or voice CARDIOVASCULAR: no chest pain or abnormal heart beats, or any swelling in ankles or feet. RESPIRATORY: No wheezing or coughing. GASTROINTESTINAL: As per HPI GENITOURINARY: no any urinary urgency, frequency or burning, and there has been no blood in her urine. no flank pain. MUSCULOSKELETAL: She notes full range of motion of all her joints without pain or swelling. NEUROLOGICAL: , no headache. no vision changes, or fainting. No numbness or tingling. Objective - Vital Signs Vital signs: Vital Signs Temp 98.7 F 09/04/18 07:39 Pulse 79 09/04/18 07:39 Resp 12 09/04/18 08:19 BP 118/64 09/04/18 07:39 Pulse Ox 96 09/04/18 07:39 Intake & Output 09/03/18 09/04/18 09/04/18 18:59 06:59 18:59 Intake Total 1000 Balance 1000 Weight 60.781 kg 60.781 kg Intake: Amount of Fluid Infused ( 1000 ml) Other: Voiding Method Toilet Toilet # Voids 2 1 # Bowel Movements 1 - Exam Vital Signs: I have reviewed the vital signs. GENERAL: Well-nourished, Well-developed , no apparent distress, cooperative Eyes: PERRL, extraoculry movements intact, clear conjunctiva Head: : Atraumatic external nose and ears, oropharyngeal mucosa is moist without lesions or exudates Neck: Symmetric, trachea midline, No thyromegaly, no masses or neck vain pulsation, no neck rigidity CVS: +S1/S2, No murmurs or gallops. Peripheral pulses 2+ and equal in all extremities. RESP: Unlabored respiratory effort. Clear to auscultation bilaterally. Abdomen: Bowel sounds present diminished throughout without any high-pitched sounds, Soft to palpation, Nontender/Nondistended, No hepatosplenomegaly, no hernias or masses, no CVA tnderness Musculoskeletal: Extremities w/o deformity, No cyanosis or clubbing, no joint swelling Skin: Warm, Dry. 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, motor strenght 5/5 i upper and lower extremities, no clonus, patellar DTRs 2+ and sympetrical Psych: Awake, Alert, & Oriented (AAO) x3 Appropriate mood and affect - Labs CBC & Chem 7: 09/04/18 08:07 09/04/18 08:07 Labs: Abnormal Lab Results - Last 24 Hours (Table) 09/03/18 09/03/18 09/03/18 Range/Units 16:00 16:00 18:38 MCHC 30.7 L (31.0-37.0) g/dL Neutrophils # 7.8 H (1.3-7.7) k/uL Chloride 114 H (98-107) mmol/L Carbon Dioxide 18 L (22-30) mmol/L Glucose 134 H (74-99) mg/dL Calcium 10.4 H (8.4-10.2) mg/dL Urine Protein Trace H (Negative) Urine Ketones 1+ H (Negative) Urine Blood Small H (Negative) Ur Leukocyte Esterase Trace H (Negative) Urine RBC 8 H (0-5) /hpf Ur Squamous Epith Cells 8 H (0-4) /hpf Urine Bacteria Rare H (None) /hpf Hyaline Casts 11 H (0-2) /lpf Urine Mucus Moderate H (None) /hpf 09/04/18 Range/Units 08:07 MCHC (31.0-37.0) g/dL Neutrophils # (1.3-7.7) k/uL Chloride 116 H (98-107) mmol/L Carbon Dioxide 20 L (22-30) mmol/L Glucose 100 H (74-99) mg/dL Calcium (8.4-10.2) mg/dL Urine Protein (Negative) Urine Ketones (Negative) Urine Blood (Negative) Ur Leukocyte Esterase (Negative) Urine RBC (0-5) /hpf Ur Squamous Epith Cells (0-4) /hpf Urine Bacteria (None) /hpf Hyaline Casts (0-2) /lpf Urine Mucus (None) /hpf Assessment and Plan Assessment: 1. Abdominal pain This problem seems to be improving and getting better at this point CT of abdomen consistent with findings of ileus without von mechanical obstruction Currently nothing by mouth IV fluids Gen. surgery consult Concern for possible side effects of her narcotics in example narcotic bowel syndrome, she takes [place] 10 mg 3-4 times a day normally, Versus gastroenteritis versus some form of colitis Initially patient was placed on Dilaudid overnight and that was subsequently changed to morphine I had a long conversation with the patient regarding side effects of narcotics especially in view of bowel function. Also had a long conversation with her regarding Dilaudid. It will be not possible to take patient off narcotics completely due to chronic and long-standing use and we will try to extract some balance between pain control and effects of the medications. We will await input from Gen. surgery 2. Hyperchloremic metabolic acidosis due to load with normal saline dc NS start LR and if no improvement, eventually D5 1/2 NS 2. History of chronic pancreatitis Lipase is normal CT findings consistent chronic atrophic pancreatitis without any acute inflammation 2. Hypertension Blood pressure is softer scans will hold her amlodipine 4. Chronic pain syndrome Titrate pain medications
[2018-09-04] MEDS ORDERED: HYDROmorphone 1 MG/ML 1 ML SYRINGE IVP PRN (10:44)
--- NOTE | 2018-09-04 10:58 | P.GSCN ---
History of Present Illness Consult date: 09/04/18 Reason for Consult: Abdominal pain History of present illness: The patient's a 62-year-old female who had a sudden onset of abdominal pain yesterday. She originally thought this was due to a flareup of her chronic pancreatitis. She has episodes of pancreatitis periodically and the symptoms initially felt the same. The patient also had nausea and vomiting. She had a normal bowel movement yesterday and feels like she should have a bowel movement today. Patient is passing flatus. She does give a history of pain which was similar many years ago and at that time she had upper and lower endoscopy and was told she had stomach ulcers. Patient is feeling better today and is tolerating clear liquids. No previous admissions for bowel obstruction. Review of Systems All systems: negative Past Medical History Past Medical History: Chest Pain / Angina, COPD, CVA/TIA, GERD/Reflux, Hypertension, Osteoarthritis (OA), Rheumatoid Arthritis (RA) Additional Past Medical History / Comment(s): admitted to [facility] on 02/18/18 with colitis/sepsis/R renal cyst. Other hx: Recurrent pancreatitis, bronchitis, TIA , anemia-unknown cause, migraines, ostoeporosis, past R femur fracture with surgery.past l2 compression fx, History of Any Multi-Drug Resistant Organisms: None Reported Past Surgical History: Appendectomy, Back Surgery, Cholecystectomy, Orthopedic Surgery, Tonsillectomy Additional Past Surgical History / Comment(s): Pancreatic stents-since removed, 6 back surgeries with 2 fusions, right oophorectomy due to ectopic , EGD/colonoscopy, right leg alice inserted d/t fracture, Past Anesthesia/Blood Transfusion Reactions: No Reported Reaction Additional Past Anesthesia/Blood Transfusion Reaction / Comm: Pt has received blood in past without reaction. Past Psychological History: No Psychological Hx Reported Smoking Status: Current every day smoker Past Alcohol Use History: None Reported Past Drug Use History: None Reported - Past Family History Father Family Medical History: Cancer, Liver Disease Additional Family Medical History / Comment(s): Father was an alcoholic. He from lung/ liver cancer. Mother Family Medical History: Cancer, CVA/TIA, Hypertension Additional Family Medical History / Comment(s): Mother had breast and colon cancer. She of liver cancer at the age of 78 yrs. Medications and Allergies Home Medications Medication Instructions Recorded Confirmed Type Albuterol Inhaler [Ventolin Hfa 1 - 2 puff INHALATION RT-Q6H PRN 07/15/16 History Inhaler] Albuterol Nebulized [Ventolin 2.5 mg INHALATION RT-QID PRN 08/31/16 09/03/18 History Nebulized] Gabapentin 800 mg PO QID 06/04/18 09/03/18 History HYDROcodone/APAP 10-325MG [[place] 1 tab PO Q6H PRN 06/15/18 09/03/18 History 10-325] amLODIPine BESYLATE/BENAZEPRIL 1 cap PO DAILY 09/03/18 09/03/18 History [Lotrel 10-20 mg Capsule] Allergies Allergy/AdvReac Type Severity Reaction Status Date / Time No Known Allergies Allergy Verified 09/03/18 16:03 Surgical - Exam Osteopathic Statement: *. No significant issues noted on an osteopathic structural exam other than those noted in the History and Physical/Consult. Vital Signs Temp Pulse Resp BP Pulse Ox 98.3 F 86 18 125/78 99 09/03/18 14:32 09/03/18 14:32 09/03/18 14:32 09/03/18 14:32 09/03/18 14:32 - General well developed, well nourished, no distress - Eyes normal ocular movement - Neck trachea midline - Respiratory normal respiratory effort, clear to auscultation - Cardiovascular Rhythm: regular - Abdomen Abdomen: soft, tender (Very minimal tenderness), no guarding, no rigid, no rebound, no distended (No tympany to percussion) Hernia: no umbilical Results - Labs 09/04/18 08:07 09/04/18 08:07 Abnormal Lab Results - Last 24 Hours (Table) 09/03/18 09/03/18 09/03/18 Range/Units 16:00 16:00 18:38 MCHC 30.7 L (31.0-37.0) g/dL Neutrophils # 7.8 H (1.3-7.7) k/uL Chloride 114 H (98-107) mmol/L Carbon Dioxide 18 L (22-30) mmol/L Glucose 134 H (74-99) mg/dL Calcium 10.4 H (8.4-10.2) mg/dL Urine Protein Trace H (Negative) Urine Ketones 1+ H (Negative) Urine Blood Small H (Negative) Ur Leukocyte Esterase Trace H (Negative) Urine RBC 8 H (0-5) /hpf Ur Squamous Epith Cells 8 H (0-4) /hpf Urine Bacteria Rare H (None) /hpf Hyaline Casts 11 H (0-2) /lpf Urine Mucus Moderate H (None) /hpf 09/04/18 Range/Units 08:07 MCHC (31.0-37.0) g/dL Neutrophils # (1.3-7.7) k/uL Chloride 116 H (98-107) mmol/L Carbon Dioxide 20 L (22-30) mmol/L Glucose 100 H (74-99) mg/dL Calcium (8.4-10.2) mg/dL Urine Protein (Negative) Urine Ketones (Negative) Urine Blood (Negative) Ur Leukocyte Esterase (Negative) Urine RBC (0-5) /hpf Ur Squamous Epith Cells (0-4) /hpf Urine Bacteria (None) /hpf Hyaline Casts (0-2) /lpf Urine Mucus (None) /hpf Diabetes panel 09/03/18 09/04/18 Range/Units 16:00 08:07 Sodium 141 142 (137-145) mmol/L Potassium 3.7 3.9 (3.5-5.1) mmol/L Chloride 114 H 116 H (98-107) mmol/L Carbon Dioxide 18 L 20 L (22-30) mmol/L BUN 13 9 (7-17) mg/dL Creatinine 0.77 0.59 (0.52-1.04) mg/dL Glucose 134 H 100 H (74-99) mg/dL Calcium 10.4 H 9.4 (8.4-10.2) mg/dL AST 28 (14-36) U/L ALT 42 (9-52) U/L Alkaline Phosphatase 93 (38-126) U/L Total Protein 7.9 (6.3-8.2) g/dL Albumin 4.6 (3.5-5.0) g/dL Calcium panel 09/03/18 09/04/18 Range/Units 16:00 08:07 Calcium 10.4 H 9.4 (8.4-10.2) mg/dL Phosphorus 3.6 (2.5-4.5) mg/dL Albumin 4.6 (3.5-5.0) g/dL Pituitary panel 09/03/18 09/04/18 Range/Units 16:00 08:07 Sodium 141 142 (137-145) mmol/L Potassium 3.7 3.9 (3.5-5.1) mmol/L Chloride 114 H 116 H (98-107) mmol/L Carbon Dioxide 18 L 20 L (22-30) mmol/L BUN 13 9 (7-17) mg/dL Creatinine 0.77 0.59 (0.52-1.04) mg/dL Glucose 134 H 100 H (74-99) mg/dL Calcium 10.4 H 9.4 (8.4-10.2) mg/dL Adrenal panel 09/03/18 09/04/18 Range/Units 16:00 08:07 Sodium 141 142 (137-145) mmol/L Potassium 3.7 3.9 (3.5-5.1) mmol/L Chloride 114 H 116 H (98-107) mmol/L Carbon Dioxide 18 L 20 L (22-30) mmol/L BUN 13 9 (7-17) mg/dL Creatinine 0.77 0.59 (0.52-1.04) mg/dL Glucose 134 H 100 H (74-99) mg/dL Calcium 10.4 H 9.4 (8.4-10.2) mg/dL Total Bilirubin 0.5 (0.2-1.3) mg/dL AST 28 (14-36) U/L ALT 42 (9-52) U/L Alkaline Phosphatase 93 (38-126) U/L Total Protein 7.9 (6.3-8.2) g/dL Albumin 4.6 (3.5-5.0) g/dL - Imaging CT scan - abdomen: report reviewed, image reviewed Assessment and Plan (1) Abdominal pain Current Visit: Yes Status: Acute Priority: High Code(s): R10.9 - UNSPECIFIED ABDOMINAL PAIN SNOMED Code(s): 42514588 (2) Ileus, unspecified Current Visit: Yes Status: Acute Code(s): K56.7 - ILEUS, UNSPECIFIED SNOMED Code(s): 37232590 (3) History of pancreatitis Current Visit: No Status: Acute Code(s): Z87.19 - PERSONAL HISTORY OF OTHER DISEASES OF THE DIGESTIVE SYSTEM SNOMED Code(s): 90330141808525 Plan: Patient has no signs of obstruction. I'd recommend supportive care with IV fluids. Encouraged her to ambulate. Hemoccult stool. Currently nonsurgical
[2018-09-04] MEDS ORDERED: KETOROLAC 30 MG/ML 1 ML VIAL IVP SCH (12:00)
[2018-09-05] MEDS: MORPHINE SULFATE 4 MG/ML SYRINGE IVP PRN ×4 (00:06→11:55)
[2018-09-05] MEDS: LACTATED RINGERS 1,000 ML IV SCH (04:02)
[2018-09-05 07:55] VITALS: BP 120/65; PULSE 61; RESP 12; TEMP 98.7
[2018-09-05 09:13] LABS: HCT 42.1 % (34.0-46.0); HGB 13.1 gm/dL (11.4-16.0); MCH 27.8 pg (25.0-35.0); MCHC 31.2 g/dL (31.0-37.0); MCV 89.2 fL (80.0-100.0); Mean Platelet Volume 6.3; Platelet Count 364 k/uL (150-450); RBC 4.72 m/uL (3.80-5.40); RDW 15.3 % (11.5-15.5); WBC 5.9 k/uL (3.8-10.6)
[2018-09-05 09:31] LABS: Anion Gap 6 mmol/L; Blood Urea Nitrogen 4 mg/dL (7-17); Calcium 9.7 mg/dL (8.4-10.2); Carbon Dioxide 25 mmol/L (22-30); Chloride 110 mmol/L (98-107); Glucose 158 mg/dL (74-99); Sodium 141 mmol/L (137-145)
--- NOTE | 2018-09-05 10:35 | P.PN ---
Subjective Progress Note Date: 09/05/18 Patient is seen on rounds. She began having some diarrhea this morning. She is not sure if she was having hunger or nausea this morning. She is tolerating a diet however. Complaining of crampy abdominal pain Objective - Vital Signs Vital signs: Vital Signs Temp 98.7 F 09/05/18 07:00 Pulse 61 09/05/18 07:00 Resp 12 09/05/18 07:00 BP 120/65 09/05/18 07:00 Pulse Ox 95 09/05/18 07:00 Intake & Output 09/04/18 09/05/18 09/05/18 18:59 06:59 18:59 Intake Total 2075 800 Balance 2075 800 Weight 60.781 kg Intake: Intake, IV Titration 525 800 Amount Lactated Ringers 1,000 ml 800 @ 100 mls/hr IV .Q10H JOLLY Rx#:[id number] Sodium Chloride 0.9% 1, 525 000 ml @ 75 mls/hr IV . [id number] JOLLY Rx#:[id number] Oral 1550 Other: Voiding Method Toilet Toilet # Voids 1 3 # Bowel Movements 1 1 - Constitutional General appearance: Present: cooperative, no acute distress - Gastrointestinal General gastrointestinal: Present: normal bowel sounds, soft, tenderness (No tenderness to palpation). Absent: distended (No tympany to percussion) - Labs CBC & Chem 7: 09/05/18 08:19 09/05/18 08:19 Labs: Abnormal Lab Results - Last 24 Hours (Table) 09/05/18 Range/Units 08:19 Chloride 110 H (98-107) mmol/L BUN 4 L (7-17) mg/dL Glucose 158 H (74-99) mg/dL Assessment and Plan (1) Abdominal pain Current Visit: Yes Status: Acute Priority: High Code(s): R10.9 - UNSPECIFIED ABDOMINAL PAIN SNOMED Code(s): 81351180 (2) Ileus, unspecified Current Visit: Yes Status: Acute Code(s): K56.7 - ILEUS, UNSPECIFIED SNOMED Code(s): 63312303 (3) History of pancreatitis Current Visit: No Status: Acute Code(s): Z87.19 - PERSONAL HISTORY OF OTHER DISEASES OF THE DIGESTIVE SYSTEM SNOMED Code(s): 74416521901742 Plan: No signs of acute bowel obstruction. She appears to have an ileus which is resolving. We'll follow up as needed.
[2018-09-05] MEDS ORDERED: traMADol 50 MG TAB PO PRN (10:36)
--- NOTE | 2018-09-05 14:02 | P.DS ---
Providers Date of admission: 09/03/18 20:18 Attending physician: Blanka Orr MD Consults: 09/03/18 21:44 Consult Physician Routine Consulting Provider: Yamilex Farias Consult Reason/Comments: ileus Do you want consulting provider notified?: Yes Primary care physician: [facility] Hospital Course: Day of admission: 09/03/2018 Date of discharge: 09/05/2018 Consultants: Gen. surgery Pertinent studies: CT of abdomen and pelvis with IV contrast showing mild bilateral dilation due to ileus no von mechanical obstruction Reason for admission: This is a 62-year-old female with history of chronic pain syndrome chronically in the [place] and history of multiple admissions for pancreatitis with subsequent chronic pancreatitis. She coming to emergency Department complaining of mid abdominal and right-sided abdominal colicky crampy abdominal pain for 1 day with mild nausea. She reports having normal bowel movement prior to this including the day of the admission. No fever chills dysuria frequency blood in the urine or diarrhea or vaginal bleeding was described. On admission her vital signs were stable she was afebrile with a normal heart rate. Blood work showed normal CBC without leukocytosis or anemia and metabolic panel with bicarb of 18 and elevated chloride. Her liver enzymes bilirubin and alkaline phosphatase as Well lactic acid were normal. She was admitted then for further evaluation Hospital course. The CT of the abdomen and pelvis showed as above. General surgery evaluated the patient. Recommendation was that there is no bowel obstruction is no mechanical bowel obstruction and is a mild ileus. Patient was first treated with nothing by mouth IV fluids and bowel rest pain control. Concern was for patient long-standing use of narcotics as pain medications and I had a lengthy conversation with the patient regarding that findings on her CAT scan of ileus could be related to her use of [place]. 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 With the above-mentioned treatment patient condition improved. On the day of discharge I saw and evaluated the patient. She did not have any nausea or vomiting. Her abdominal pain was very mild. She started having bowel movements in form of loose bowel movements patient states that that small tolerable and she was felt comfortable to go home. Surgery evaluated the patient started diet the patient tolerated regular diet the patient was cleared by surgery to be discharge home. At that point patient had very good bowel sounds normal, abdomen was soft nontender no guarding no rebound no CVA tenderness no organomegaly REVIEW OF SYSTEMS: CONSTITUTIONAL: No fever or chills HEENT: No changes in vision or voice CARDIOVASCULAR: no chest pain or abnormal heart beats, or any swelling in ankles or feet. RESPIRATORY: No wheezing or coughing. GASTROINTESTINAL: No abdominal pain, no nausea no vomiting no constipation GENITOURINARY: no any urinary urgency, frequency or burning, and there has been no blood in her urine. no flank pain. MUSCULOSKELETAL: She notes full range of motion of all her joints without pain or swelling. NEUROLOGICAL: , no headache. no vision changes, or fainting. No numbness or tingling. Vital Signs: I have reviewed the vital signs. GENERAL: Well-nourished, Well-developed , no apparent distress, cooperative Eyes: PERRL, extraoculry movements intact, clear conjunctiva Head: : Atraumatic external nose and ears, oropharyngeal mucosa is moist without lesions or exudates Neck: Symmetric, trachea midline, No thyromegaly, no masses or neck vain pulsation, no neck rigidity CVS: +S1/S2, No murmurs or gallops. Peripheral pulses 2+ and equal in all extremities. RESP: Unlabored respiratory effort. Clear to auscultation bilaterally. Abdomen: Bowel sounds present in all 4 quadrants, Soft to palpation, Nontender/ Nondistended, No hepatosplenomegaly, no hernias or masses, no CVA tnderness Musculoskeletal: Extremities w/o deformity, No cyanosis or clubbing, no joint swelling Skin: Warm, Dry. 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: roll forger II-XII grossly intact, motor strenght 5/5 i upper and lower extremities Psych: Awake, Alert, & Oriented (AAO) x3 Appropriate mood and affect Disposition: Patient was discharged home with instruction to keep hydrated and to continue to wean herself off of [place] by slowly decreasing amount of medication taken. C. diff toxin was in the lab pending No prescriptions were given on this admission for discharge Patient Condition at Discharge: Fair Plan - Discharge Summary Discharge Rx Participant: No New Discharge Prescriptions: New Acetaminophen Tab [Tylenol] 650 mg PO Q6HR PRN tab PRN Reason: Mild Pain Or Fever > 100.5 Continue Albuterol Inhaler [Ventolin Hfa Inhaler] 1 - 2 puff INHALATION RT-Q6H PRN PRN Reason: Shortness Of Breath Albuterol Nebulized [Ventolin Nebulized] 2.5 mg INHALATION RT-QID PRN PRN Reason: Shortness Of Breath HYDROcodone/APAP 10-325MG [[place] 10-325] 1 tab PO Q6H PRN PRN Reason: MODERATE Pain Discontinued Gabapentin 800 mg PO QID amLODIPine BESYLATE/BENAZEPRIL [Lotrel 10-20 mg Capsule] 1 cap PO DAILY Discharge Medication List Albuterol Inhaler [Ventolin Hfa Inhaler] 1 - 2 puff INHALATION RT-Q6H PRN [History] Albuterol Nebulized [Ventolin Nebulized] 2.5 mg INHALATION RT-QID PRN 08/31/16 [ History] HYDROcodone/APAP 10-325MG [[place] 10-325] 1 tab PO Q6H PRN 06/15/18 [History] Acetaminophen Tab [Tylenol] 650 mg PO Q6HR PRN tab 09/05/18 [Rx] Follow up Appointment(s)/Referral(s): Reyes Russ MD [Primary Care Provider] - 09/10/18 4:00 pm Patient Instructions/Handouts: Safe Use of Narcotics (GEN) Care Plan Goals (MU): follow up with PCP. Your Blood pressure was normal without your blood pressure medications, hence not restarted on discharge. Check blood pressure with your PCP next week. Discharge Disposition: HOME SELF-CARE
== END 2018-09-05 11:35 | disposition home or self-care (01) | DRG 389 ==
LOC: EC 14:12 → 4SSUR 20:18
PROVIDERS: ADMIT Internal Medicine; ATTEND Internal Medicine
DX: K56.7 Ileus, unspecified (principal); E87.2 Acidosis; K86.1 Other chronic pancreatitis; F17.200 Nicotine dependence, unspecified, uncomplicated; G89.4 Chronic pain syndrome; I10 Essential (primary) hypertension; J44.9 Chronic obstructive pulmonary disease, unspecified; K21.9 Gastro-esophageal reflux disease without esophagitis; M06.9 Rheumatoid arthritis, unspecified; T40.605A Adverse effect of unspecified narcotics, initial encounter; M54.5 Low back pain; M19.90 Unspecified osteoarthritis, unspecified site; G43.909 Migraine, unspecified, not intractable, without status migrainosus; M81.0 Age-related osteoporosis without current pathological fracture; Z90.721 Acquired absence of ovaries, unilateral; Z87.11 Personal history of peptic ulcer disease; Z86.73 Personal history of transient ischemic attack (TIA), and cerebral infarction without residual deficits; Z79.899 Other long term (current) drug therapy; Z90.49 Acquired absence of other specified parts of digestive tract; Z82.49 Family history of ischemic heart disease and other diseases of the circulatory system; Z81.1 Family history of alcohol abuse and dependence; Z80.0 Family history of malignant neoplasm of digestive organs; Z80.1 Family history of malignant neoplasm of trachea, bronchus and lung; Z80.3 Family history of malignant neoplasm of breast; Z82.3 Family history of stroke
CPT/HCPCS: 36415; 74018; 74177; 80048; 80053; 81001; 81025; 82150; 82272; 83605; 83690; 83735; 84100; 85025; 85027; 96361; 96374; 96375; 96376; 99285

== ENCOUNTER 2018-11-02 11:53 | Emergency (ER) | payer BC ==
[2018-11-02 12:08] VITALS: BP 120/72; PULSE 82; RESP 18; TEMP 98.5
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
--- NOTE | 2018-11-02 13:19 | XR ---
EXAMINATION TYPE: XR finger LT DATE OF EXAM: 11/02/2018 COMPARISON: NONE HISTORY: Punching injury with pain. TECHNIQUE: 3 views of left second finger are acquired. FINDINGS: Demineralization is present. There is no acute fracture or dislocation seen. There is mild to moderate narrowing and spurring at the second PIP and DIP joints with mild diffuse subcutaneous ed martina. IMPRESSION: No acute fracture or dislocation in second finger of left hand.
== END 2018-11-02 13:31 | disposition home or self-care (01) ==
LOC: EC 11:53
DX: S60.042A Contusion of left ring finger without damage to nail, initial encounter (principal); J44.9 Chronic obstructive pulmonary disease, unspecified; F17.200 Nicotine dependence, unspecified, uncomplicated; Z86.73 Personal history of transient ischemic attack (TIA), and cerebral infarction without residual deficits
CPT/HCPCS: 99284

== ENCOUNTER 2018-12-21 16:23 | Emergency (ER) | payer BC ==
[2018-12-21 16:39] VITALS: BP 131/81; PULSE 101; RESP 18; TEMP 98.5
[2018-12-21] MEDS ORDERED: MORPHINE SULFATE 4 MG/ML SYRINGE IM STA (16:51)
--- NOTE | 2018-12-21 16:59 | ED ---
General Adult HPI - General Chief complaint: Extremity Injury, Lower Stated complaint: Lt hip pain Time Seen by Provider: 12/21/18 16:40 Source: patient, RN notes reviewed Mode of arrival: ambulatory Limitations: no limitations - History of Present Illness Initial comments: 63-year-old female presents to the emergency department for a chief complaint of left hip pain. Patient states this has been going on for several months but is worsening in the past few days. Patient states she has had a CAT scan of the left hip and was found to have severe osteoarthritis. Patient is receiving Ultram from her primary care provider. She called today to tell her her pain was not improving with this anymore and was sent to the emergency department for pain management. Patient is requesting prescription for pain medications to take home. Patient stating she does not want any evaluation just wants the pain treated. Patient denies any fevers or chills. Patient is able to ambulate. Patient does have a ride home by her nephew. Patient has no other complaints at this time including shortness of breath, chest pain, abdominal pain, nausea or vomiting, headache, or visual changes. - Related Data Home Medications Medication Instructions Recorded Confirmed Albuterol Inhaler [Ventolin Hfa 1 - 2 puff INHALATION RT-Q6H PRN 07/15/16 09/03/18 Inhaler] Albuterol Nebulized [Ventolin 2.5 mg INHALATION RT-QID PRN 08/31/16 09/03/18 Nebulized] HYDROcodone/APAP 10-325MG [[place] 1 tab PO Q6H PRN 06/15/18 09/03/18 10-325] Previous Rx's Medication Instructions Recorded Acetaminophen Tab [Tylenol] 650 mg PO Q6HR PRN tab 09/05/18 Allergies Allergy/AdvReac Type Severity Reaction Status Date / Time No Known Allergies Allergy Verified 11/02/18 12:06 Review of Systems ROS Statement: Those systems with pertinent positive or pertinent negative responses have been documented in the HPI. ROS Other: All systems not noted in ROS Statement are negative. Past Medical History Past Medical History: Chest Pain / Angina, COPD, CVA/TIA, GERD/Reflux, Hypertension, Osteoarthritis (OA), Rheumatoid Arthritis (RA) Additional Past Medical History / Comment(s): admitted to [facility] on 02/18/18 with colitis/sepsis/R renal cyst. Other hx: Recurrent pancreatitis, bronchitis, TIA, anemia-unknown cause, migraines, ostoeporosis, past R femur fracture with surgery.past l2 compression fx, History of Any Multi-Drug Resistant Organisms: None Reported Past Surgical History: Appendectomy, Back Surgery, Cholecystectomy, Orthopedic Surgery, Tonsillectomy Additional Past Surgical History / Comment(s): Pancreatic stents-since removed, 6 back surgeries with 2 fusions, right oophorectomy due to ectopic , EGD/colonoscopy, right leg alice inserted d/t fracture, Past Anesthesia/Blood Transfusion Reactions: No Reported Reaction Additional Past Anesthesia/Blood Transfusion Reaction / Comment(s): Pt has received blood in past without reaction. Past Psychological History: No Psychological Hx Reported Smoking Status: Current every day smoker Past Alcohol Use History: None Reported Past Drug Use History: None Reported - Past Family History Father Family Medical History: Cancer, Liver Disease Additional Family Medical History / Comment(s): Father was an alcoholic. He from lung/ liver cancer. Mother Family Medical History: Cancer, CVA/TIA, Hypertension Additional Family Medical History / Comment(s): Mother had breast and colon cancer. She of liver cancer at the age of 78 yrs. General Exam Limitations: no limitations General appearance: alert, in no apparent distress Head exam: Present: atraumatic, normocephalic, normal inspection Eye exam: Present: normal appearance, PERRL, EOMI. Absent: scleral icterus, conjunctival injection, periorbital swelling ENT exam: Present: normal exam, mucous membranes moist Neck exam: Present: normal inspection, full ROM. Absent: tenderness, meningismus, lymphadenopathy Respiratory exam: Present: normal lung sounds bilaterally. Absent: respiratory distress, wheezes, rales, rhonchi, stridor Cardiovascular Exam: Present: regular rate, normal rhythm, normal heart sounds. Absent: systolic murmur, diastolic murmur, rubs, gallop, clicks Extremities exam: Present: tenderness (Mild tenderness noted to the lateral left hip), normal capillary refill (Capillary refill less than 2 seconds, DP pulse 2+), other (Sensation intact in the left lower extremity). Absent: full ROM (Patient has 90 flexion of the left hip which causes pain.), joint swelling Neurological exam: Present: alert, oriented X3, CN II-XII intact Psychiatric exam: Present: normal affect, normal mood Course Vital Signs 12/21/18 16:34 Temperature 98.5 F Pulse Rate 101 H Respiratory 18 Rate Blood Pressure 131/81 O2 Sat by Pulse 100 Oximetry Medical Decision Making - Medical Decision Making 63-year-old female presents to the emergency department for a chief complaint of chronic hip pain. Patient states this has been ongoing for several months and she has severe osteoarthritis. Patient states her Ultram is no longer helping and her primary care told her to come here to get a prescription for more pain medications. On exam patient is a 90 flexion of the left hip with minimal tenderness. Neurovascular status intact in the left lower extremity. Patient infiltrate. I did recommend x-ray the patient refuses this stating she already knows what she has and has had a CAT scan confirming this. Denies trauma. States she does want something for pain. Patient was given morphine here as she states she does not like Toradol as it makes her heart race. Patient has an overdose risk of 520 through maps system. Patient will not be written a prescription as she already has a prescription for Ultram and was written a prescription for [place] 2 weeks ago. Patient states I am injection of morphine significantly improved her pain, ready for discharge. Patient was monitored and then discharged home with follow-up to primary care. Patient's nephew is driving her. Disposition Clinical Impression: Chronic left hip pain, History of osteoarthritis Disposition: HOME SELF-CARE Condition: Good Instructions (If sedation given, give patient instructions): Hip Pain (ED) Additional Instructions: Please follow up with primary care for further pain management prescriptions. Please return here to the emergency department if you have any worsening symptoms. Is patient prescribed a controlled substance at d/c from ED?: No Referrals: Reyes Russ MD [Primary Care Provider] - 1-2 days Time of Disposition: 16:59
== END 2018-12-21 17:41 | disposition home or self-care (01) ==
LOC: EC 16:23
DX: G89.29 Other chronic pain (principal); M25.552 Pain in left hip; J44.9 Chronic obstructive pulmonary disease, unspecified; M16.12 Unilateral primary osteoarthritis, left hip; F17.200 Nicotine dependence, unspecified, uncomplicated; Z79.891 Long term (current) use of opiate analgesic; Z98.1 Arthrodesis status; Z53.20 Procedure and treatment not carried out because of patient's decision for unspecified reasons
CPT/HCPCS: 99283; 96372; J2270

== ENCOUNTER 2018-12-22 16:58 | Emergency (ER) | payer BC ==
[2018-12-22 17:04] VITALS: BP 151/66; PULSE 103; RESP 18; TEMP 98.7
--- NOTE | 2018-12-22 17:30 | ED ---
General Adult HPI - General Chief complaint: Recheck/Abnormal Lab/Rx Stated complaint: hip pain-revisit Time Seen by Provider: 12/22/18 17:12 Source: patient Mode of arrival: wheelchair Limitations: no limitations - History of Present Illness Initial comments: 63 yoF presenting to the emergency department with left hip pain. The patient states the pain began without an inciting event two days prior. She states it is consistent with her normal osteoarthritis flairs. She states she had an MRI 5 months prior that showed severe osteoarthritis. She denies any focal weakness, numbness, or history of DVT/PE. She states she is alternating Motrin and Tylenol, taking Ultram and Gabapentin and using a lidocaine patch without relief. She was seen in the emergency department yesterday and was given a shot of Morphine which she states improved her pain. She returned today because the pain has returned. She states she is unable to see an orthopedic surgeon until February and that she cannot see her primary care physician until Sunday. The patient states she refused imaging yesterday because she sees no reason for it and just wants something for the pain. - Related Data Home Medications Medication Instructions Recorded Confirmed Albuterol Inhaler [Ventolin Hfa 1 - 2 puff INHALATION RT-Q6H PRN 07/15/16 09/03/18 Inhaler] Albuterol Nebulized [Ventolin 2.5 mg INHALATION RT-QID PRN 08/31/16 09/03/18 Nebulized] HYDROcodone/APAP 10-325MG [[place] 1 tab PO Q6H PRN 06/15/18 09/03/18 10-325] Previous Rx's Medication Instructions Recorded Acetaminophen Tab [Tylenol] 650 mg PO Q6HR PRN tab 09/05/18 Allergies Allergy/AdvReac Type Severity Reaction Status Date / Time No Known Allergies Allergy Verified 11/02/18 12:06 Review of Systems ROS Statement: Those systems with pertinent positive or pertinent negative responses have been documented in the HPI. Review of Systems Constitutional: Denies fever, chills Eyes: Denies change in vision, Denies pain Ears, nose, mouth, throat: Denies headaches, Denies sore throat Cardiovascular: Denies chest pain. Denies palpitations Respiratory: Denies shortness of breath, Denies cough Gastrointestinal: Denies abdominal pain. Denies nausea, vomiting, diarrhea. Genitourinary: Denies hematuria, Denies infections Musculoskeletal: Positive pain, Denies swelling Integumentary: Denies rash Neurological: Denies headache, focal weakness, focal numbness Psychiatric: Denies anxiety, Denies depression Hematologic/Lymphatic: Denies easy bleeding or bruising ROS Other: All systems not noted in ROS Statement are negative. Past Medical History Past Medical History: Chest Pain / Angina, COPD, CVA/TIA, GERD/Reflux, Hypertension, Osteoarthritis (OA), Rheumatoid Arthritis (RA) Additional Past Medical History / Comment(s): admitted to [facility] on 02/18/18 with colitis/sepsis/R renal cyst. Other hx: Recurrent pancreatitis, bronchitis, TIA, anemia-unknown cause, migraines, ostoeporosis, past R femur fracture with surgery.past l2 compression fx, History of Any Multi-Drug Resistant Organisms: None Reported Past Surgical History: Appendectomy, Back Surgery, Cholecystectomy, Orthopedic Surgery, Tonsillectomy Additional Past Surgical History / Comment(s): Pancreatic stents-since removed, 6 back surgeries with 2 fusions, right oophorectomy due to ectopic , EGD/colonoscopy, right leg alice inserted d/t fracture, Past Anesthesia/Blood Transfusion Reactions: No Reported Reaction Additional Past Anesthesia/Blood Transfusion Reaction / Comment(s): Pt has received blood in past without reaction. Past Psychological History: No Psychological Hx Reported Smoking Status: Current every day smoker Past Alcohol Use History: None Reported Past Drug Use History: None Reported - Past Family History Father Family Medical History: Cancer, Liver Disease Additional Family Medical History / Comment(s): Father was an alcoholic. He from lung/ liver cancer. Mother Family Medical History: Cancer, CVA/TIA, Hypertension Additional Family Medical History / Comment(s): Mother had breast and colon cancer. She of liver cancer at the age of 78 yrs. General Exam - General Exam Comments Initial Comments: General: Awake, alert, No acute Distress HENT: Normocephalic. Atraumatic Eyes: PERRL. EOMI. No scleral icterus. No injected conjunctiva Neck: Full ROM Chest/Lungs: Clear to auscultation bilaterally. No wheezing, rhonchi, or rales Cardiac: Regular rate, rhythm. No murmurs or rubs Abdomen/GI: Soft, nontender, nondistended. No rebound, guarding, or rigidity. Musculoskeletal: Full ROM of left hip but with pain. No swelling or rash overlying left hip. LLE neurovascularly intact. No lower extremity swelling Skin: Warm, dry, intact Neurologic: A/Ox3, no weakness, no sensory deficit, no abnormal gait, no coordination deficit Limitations: no limitations Course Vital Signs 12/22/18 17:01 Temperature 98.7 F Pulse Rate 103 H Respiratory 18 Rate Blood Pressure 151/66 O2 Sat by Pulse 99 Oximetry Medical Decision Making - Medical Decision Making 63-year-old female presenting for chronic left hip pain. Initial exam the patient is awake, alert, no acute distress. VSS. The patient was seen yesterday in the emergency department, refused imaging but was given a shot of morphine which she states helped. She states that she had an MRI 5 months prior that showed severe osteoarthritis. My review of her imaging she had a normal MRI and XR of her left hip. She is refusing any further workup here stating she just wants something for the pain. I reviewed the providers note from yesterday, as well as the patient's current MAPS. She filled 120 Tramadol on 12/16 as well as 120 Gabapentin. She has an overdose risk score of 520. I discussed in length with the patient that I recommend further imaging if her pain has now worsened. She refused unless I would give her a narcotic. I offered the patient Toradol but she states that it makes her blood pressure increase and her heart race. When I inquired about lidocaine patches she states she is using them daily. On exam she did not have one on and stated she took it off in case "we wanted to look at her hip." I informed the patient about my concern for the amount of narcotic and sedative medications she is on, and at this time I am unable to offer her further treatment with those kind of medications, especially in the absence of further workup. The patient has decided to not proceed any further with my suggested workup. She was informed of the risk for missed diagnoses such as DVT or pathologic fracture. She verbalized understanding. She understands she may return at anytime to complete the workup. Patient completed AMA paperwork. Disposition Clinical Impression: Left hip pain Disposition: Left Against Medical Advice Instructions (If sedation given, give patient instructions): Arthralgia (ED), Hip Pain (ED) Additional Instructions: You may return to the emergency department at anytime to complete your workup. I recommend alternating Tylenol and Motrin, using your Ultram and Gabapentin, as well as your lidocaine patches. Please call your doctor at your earliest convenience for follow up. Is patient prescribed a controlled substance at d/c from ED?: No Referrals: Reyes Russ MD [Primary Care Provider] - 1-2 days
== END 2018-12-22 17:38 | disposition left against medical advice (07) ==
LOC: EC 16:58
DX: M25.552 Pain in left hip (principal); G89.29 Other chronic pain; Z53.20 Procedure and treatment not carried out because of patient's decision for unspecified reasons; F17.200 Nicotine dependence, unspecified, uncomplicated; Z86.73 Personal history of transient ischemic attack (TIA), and cerebral infarction without residual deficits
CPT/HCPCS: 99283

== ENCOUNTER 2019-02-07 15:18 | Emergency (ER) | payer BC ==
[2019-02-07 16:20] VITALS: BP 148/83; PULSE 72; RESP 18; TEMP 99.3
--- NOTE | 2019-02-07 17:06 | XR ---
EXAMINATION TYPE: XR foot complete LT DATE OF EXAM: 02/07/2019 COMPARISON: NONE HISTORY: Lateral foot pain. TECHNIQUE: 3 views FINDINGS: There is evidence of old healed fracture distal second metatarsal. There is probably a nond isplaced chip fracture of the base of the fifth metatarsal. There is mild hallux valgus. There is mil d spurring at the first MP joint and third MP joint. IMPRESSION: Acute nondisplaced chip fracture base of the fifth metatarsal.
--- NOTE | 2019-02-07 17:07 | XR ---
EXAMINATION TYPE: XR ankle complete LT DATE OF EXAM: 02/07/2019 COMPARISON: NONE HISTORY: Ankle pain TECHNIQUE: 3 views FINDINGS: Ankle mortise is anatomic. I see no fracture nor dislocation. Joint spaces are normal. IMPRESSION: Negative left ankle exam. Small chip fracture noted at the base of the fifth metatarsal.
[2019-02-07] MEDS ORDERED: ACET/COD 300 MG/30 MG STARTER PACK 6 TAB BTL PO STA (17:54)
--- NOTE | 2019-02-07 17:58 | ED ---
General Adult HPI - General Chief complaint: Extremity Injury, Upper Stated complaint: possible broken foot Time Seen by Provider: 02/07/19 17:13 Source: patient Mode of arrival: wheelchair Limitations: no limitations - History of Present Illness Initial comments: Patient is a 62-year-old female presents to the emergency department with left foot pain after tripping yesterday. Patient states a few kids were playing in front of her and she tripped over them twisting her left foot. She states she has been unable to walk on the foot without assistance from a walker she has at home. Patient denies any other injuries from the fall. Denies hitting her head. No other complaints at this time. - Related Data Home Medications Medication Instructions Recorded Confirmed Albuterol Inhaler [Ventolin Hfa 1 - 2 puff INHALATION RT-Q6H PRN 07/15/16 09/03/18 Inhaler] Albuterol Nebulized [Ventolin 2.5 mg INHALATION RT-QID PRN 08/31/16 09/03/18 Nebulized] HYDROcodone/APAP 10-325MG [[place] 1 tab PO Q6H PRN 06/15/18 09/03/18 10-325] Previous Rx's Medication Instructions Recorded Acetaminophen Tab [Tylenol] 650 mg PO Q6HR PRN tab 09/05/18 Allergies Allergy/AdvReac Type Severity Reaction Status Date / Time No Known Allergies Allergy Verified 02/07/19 16:20 Review of Systems ROS Statement: Those systems with pertinent positive or pertinent negative responses have been documented in the HPI. ROS Other: All systems not noted in ROS Statement are negative. Past Medical History Past Medical History: Chest Pain / Angina, COPD, CVA/TIA, GERD/Reflux, Hypertension, Osteoarthritis (OA), Rheumatoid Arthritis (RA) Additional Past Medical History / Comment(s): admitted to [facility] on 02/18/18 with colitis/sepsis/R renal cyst. Other hx: Recurrent pancreatitis, bronchitis, TIA, anemia-unknown cause, migraines, ostoeporosis, past R femur fracture with surgery.past l2 compression fx, History of Any Multi-Drug Resistant Organisms: None Reported Past Surgical History: Appendectomy, Back Surgery, Cholecystectomy, Orthopedic Surgery, Tonsillectomy Additional Past Surgical History / Comment(s): Pancreatic stents-since removed, 6 back surgeries with 2 fusions, right oophorectomy due to ectopic , EGD/colonoscopy, right leg alice inserted d/t fracture, Past Anesthesia/Blood Transfusion Reactions: No Reported Reaction Additional Past Anesthesia/Blood Transfusion Reaction / Comment(s): Pt has received blood in past without reaction. Past Psychological History: No Psychological Hx Reported Smoking Status: Current every day smoker Past Alcohol Use History: None Reported Past Drug Use History: None Reported - Past Family History Father Family Medical History: Cancer, Liver Disease Additional Family Medical History / Comment(s): Father was an alcoholic. He from lung/ liver cancer. Mother Family Medical History: Cancer, CVA/TIA, Hypertension Additional Family Medical History / Comment(s): Mother had breast and colon cancer. She of liver cancer at the age of 78 yrs. General Exam - General Exam Comments Initial Comments: GENERAL: Well-appearing, well-nourished and in no acute distress. HEAD: Atraumatic, normocephalic. EYES: Pupils equal round and reactive to light, extraocular movements intact, sclera anicteric, conjunctiva are normal. ENT: TMs normal, nares patent, oropharynx clear without exudates. Moist mucous membranes. NECK: Normal range of motion, supple without lymphadenopathy or JVD. LUNGS: Breath sounds clear to auscultation bilaterally and equal. No wheezes rales or rhonchi. HEART: Regular rate and rhythm without murmurs, rubs or gallops. ABDOMEN: Soft, nontender, normoactive bowel sounds. No guarding, no rebound. No masses appreciated. : Deferred EXTREMITIES: Tenderness to palpation over the base of fifth metatarsal of the left foot. Mild swelling and mild erythema present as well. Pain with ankle range of motion. Dorsal pedis pulse is normal. NEUROLOGICAL: Cranial nerves II through XII grossly intact. Normal speech, normal gait. PSYCH: Normal mood, normal affect. SKIN: Warm, Dry, normal turgor, no rashes or lesions noted. Limitations: no limitations Course Vital Signs 02/07/19 16:16 Temperature 99.3 F Pulse Rate 72 Respiratory 18 Rate Blood Pressure 148/83 O2 Sat by Pulse 98 Oximetry Medical Decision Making - Medical Decision Making Patient is a 60-year-old female complaining of left foot pain after tripping yesterday. Patient denies any other injuries. Exam reveals mild to moderate edema of the left foot, erythema over the base of the fifth metatarsal, and very tender over the base of the fifth. X-ray reveals nondisplaced fracture of the base of the fifth metatarsal. No concerns for Wynn fracture. Patient will be given post-op shoe and discharged home. Disposition Clinical Impression: Fracture of fifth metatarsal bone of left foot, Left foot pain Disposition: HOME SELF-CARE Condition: Stable Instructions (If sedation given, give patient instructions): Foot Fracture in Adults (ED) Additional Instructions: Please return to the Emergency Department if symptoms worsen or any other concerns. Rest, ice, compression, elevation. Wear postop shoe as needed. May switch to regular tennis shoe when able. Follow-up with orthopedics in 2-3 weeks if severe pain continues. Is patient prescribed a controlled substance at d/c from ED?: No Referrals: Reyes Russ MD [Primary Care Provider] - 1-2 days
== END 2019-02-07 19:05 | disposition home or self-care (01) ==
LOC: EC 15:18
DX: S92.355A Nondisplaced fracture of fifth metatarsal bone, left foot, initial encounter for closed fracture (principal); J44.9 Chronic obstructive pulmonary disease, unspecified; F17.200 Nicotine dependence, unspecified, uncomplicated; Z86.73 Personal history of transient ischemic attack (TIA), and cerebral infarction without residual deficits; Z87.39 Personal history of other diseases of the musculoskeletal system and connective tissue; W18.49XA Other slipping, tripping and stumbling without falling, initial encounter
CPT/HCPCS: 99283

== ENCOUNTER 2019-02-19 16:10 | Emergency (ER) | payer BC ==
--- NOTE | 2019-02-19 16:38 | ED ---
General Adult HPI - General Chief complaint: Extremity Injury, Lower Stated complaint: left foot pain Time Seen by Provider: 02/19/19 16:25 Source: patient, RN notes reviewed Mode of arrival: ambulatory Limitations: no limitations - History of Present Illness Initial comments: 63-year-old female presents to the emergency department for chief complaint of left foot pain. States that she fractured her left foot about 2 weeks ago. States she has been wearing a fracture shoe since then. States it has been very swelling and painful since then. States that it is sometimes read as well. Denies any calf or knee pain. Denies any fevers. Denies any other injuries. States she did call to make an appointment with orthopedics but they are not able to get her in until 1.5 weeks from now.Patient has no other complaints at this time including shortness of breath, chest pain, abdominal pain, nausea or vomiting, headache, or visual changes. - Related Data Home Medications Medication Instructions Recorded Confirmed Albuterol Inhaler [Ventolin Hfa 1 - 2 puff INHALATION RT-Q6H PRN 07/15/16 09/03/18 Inhaler] Albuterol Nebulized [Ventolin 2.5 mg INHALATION RT-QID PRN 08/31/16 09/03/18 Nebulized] HYDROcodone/APAP 10-325MG [[place] 1 tab PO Q6H PRN 06/15/18 09/03/18 10-325] Previous Rx's Medication Instructions Recorded Acetaminophen Tab [Tylenol] 650 mg PO Q6HR PRN tab 09/05/18 Allergies Allergy/AdvReac Type Severity Reaction Status Date / Time No Known Allergies Allergy Verified 02/19/19 16:21 Review of Systems ROS Statement: Those systems with pertinent positive or pertinent negative responses have been documented in the HPI. ROS Other: All systems not noted in ROS Statement are negative. Past Medical History Past Medical History: Chest Pain / Angina, COPD, CVA/TIA, GERD/Reflux, Hypertension, Osteoarthritis (OA), Rheumatoid Arthritis (RA) Additional Past Medical History / Comment(s): admitted to [facility] on 02/18/18 with colitis/sepsis/R renal cyst. Other hx: Recurrent pancreatitis, bronchitis, TIA, anemia-unknown cause, migraines, ostoeporosis, past R femur fracture with surgery.past l2 compression fx, History of Any Multi-Drug Resistant Organisms: None Reported Past Surgical History: Appendectomy, Back Surgery, Cholecystectomy, Orthopedic Surgery, Tonsillectomy Additional Past Surgical History / Comment(s): Pancreatic stents-since removed, 6 back surgeries with 2 fusions, right oophorectomy due to ectopic , EGD/colonoscopy, right leg alice inserted d/t fracture, Past Anesthesia/Blood Transfusion Reactions: No Reported Reaction Additional Past Anesthesia/Blood Transfusion Reaction / Comment(s): Pt has received blood in past without reaction. Past Psychological History: No Psychological Hx Reported Smoking Status: Current every day smoker Past Alcohol Use History: None Reported Past Drug Use History: None Reported - Past Family History Father Family Medical History: Cancer, Liver Disease Additional Family Medical History / Comment(s): Father was an alcoholic. He from lung/ liver cancer. Mother Family Medical History: Cancer, CVA/TIA, Hypertension Additional Family Medical History / Comment(s): Mother had breast and colon cancer. She of liver cancer at the age of 78 yrs. General Exam Limitations: no limitations General appearance: alert, in no apparent distress Head exam: Present: atraumatic, normocephalic, normal inspection Eye exam: Present: normal appearance, PERRL, EOMI. Absent: scleral icterus, conjunctival injection, periorbital swelling ENT exam: Present: normal exam, mucous membranes moist Neck exam: Present: normal inspection, full ROM. Absent: tenderness, meningismus, lymphadenopathy Respiratory exam: Present: normal lung sounds bilaterally. Absent: respiratory distress, wheezes, rales, rhonchi, stridor Cardiovascular Exam: Present: regular rate, normal rhythm, normal heart sounds. Absent: systolic murmur, diastolic murmur, rubs, gallop, clicks Extremities exam: Present: normal inspection, full ROM (Full range of motion of the left foot), tenderness (Tenderness noted to the fifth metatarsal base), normal capillary refill (Capillary refill is the same, to be pulse 2+.), pedal edema (Mild pitting edema noted only of the left foot), other (Mild erythema noted of the left foot). Absent: joint swelling, calf tenderness Course Vital Signs 02/19/19 16:18 Temperature 98.9 F Pulse Rate 82 Respiratory 18 Rate Blood Pressure 163/78 O2 Sat by Pulse 98 Oximetry Procedures - Orthopedic Splinting/Casting Injury #1 Side: left Lower Extremity Injury Location: short leg Lower Extremity Immobilizer: posterior splint Additional Comments: NV status intact Medical Decision Making - Medical Decision Making 63-year-old female presents to the emergency department for left foot pain. States she fractured a tooth ago and it is still painful. Patient has been wearing a fracture shoe since that time. States that it has been intermittently red as well. On exam this is an initially somewhat red but after having shoe removed redness did resolve. CBC and CMP is unremarkable. White count 8. CRP 28.6 likely reactive. X-ray of the left foot shows nondisplaced chip fracture of the base of the fifth metatarsal. Ultrasound of the left lower extremity is negative for DVT. At this time pain is likely related to fracture. Patient was placed and it posterior splint. Discussed with patient that she needs to follow-up with orthopedics in the next few days and cannot wait until next week. Discussed to return here for any worsening symptoms. Dr. Patel also evaluated the patient. - Lab Data Result diagrams: 02/19/19 17:29 02/19/19 17:29 Lab Results 02/19/19 02/19/19 Range/Units 17:29 17:29 WBC 8.5 (3.8-10.6) k/uL RBC 4.64 (3.80-5.40) m/uL Hgb 12.7 (11.4-16.0) gm/dL Hct 40.1 (34.0-46.0) % MCV 86.4 (80.0-100.0) fL MCH 27.3 (25.0-35.0) pg MCHC 31.6 (31.0-37.0) g/dL RDW 14.3 (11.5-15.5) % Plt Count 447 (150-450) k/uL Neutrophils % 62 % Lymphocytes % 27 % Monocytes % 5 % Eosinophils % 4 % Basophils % 1 % Neutrophils # 5.3 (1.3-7.7) k/uL Lymphocytes # 2.3 (1.0-4.8) k/uL Monocytes # 0.4 (0-1.0) k/uL Eosinophils # 0.3 (0-0.7) k/uL Basophils # 0.1 (0-0.2) k/uL Sodium 139 (137-145) mmol/L Potassium 4.9 (3.5-5.1) mmol/L Chloride 103 (98-107) mmol/L Carbon Dioxide 28 (22-30) mmol/L Anion Gap 8 mmol/L BUN 23 H (7-17) mg/dL Creatinine 0.98 (0.52-1.04) mg/dL Est GFR (CKD-EPI)AfAm 71 (>60 ml/min/1.73 sqM) Est GFR (CKD-EPI)NonAf 62 (>60 ml/min/1.73 sqM) Glucose 97 (74-99) mg/dL Calcium 9.7 (8.4-10.2) mg/dL Total Bilirubin 0.3 (0.2-1.3) mg/dL AST 24 (14-36) U/L ALT 16 (9-52) U/L Alkaline Phosphatase 110 (38-126) U/L C-Reactive Protein 28.6 H (<10.0) mg/L Total Protein 7.9 (6.3-8.2) g/dL Albumin 4.6 (3.5-5.0) g/dL Disposition Clinical Impression: Fracture of 5th metatarsal Disposition: HOME SELF-CARE Condition: Good Instructions (If sedation given, give patient instructions): Foot Fracture in Adults (ED) Additional Instructions: Please follow up with orthopedics in one to 2 days. Please return here to the emergency department if you have any worsening symptoms. Is patient prescribed a controlled substance at d/c from ED?: No Referrals: Reyes Russ MD [Primary Care Provider] - 1-2 days Arnie Dang MD [STAFF PHYSICIAN] - 1-2 days Time of Disposition: 19:06
--- NOTE | 2019-02-19 17:01 | XR ---
EXAMINATION TYPE: XR foot complete LT DATE OF EXAM: 02/19/2019 COMPARISON: 02/07/2019 HISTORY: Foot pain TECHNIQUE: 3 views FINDINGS: There is old healed fracture distal shaft of the second metatarsal. There is mild narrowing and spurring at the first MP joint. I see no acute fracture nor dislocation. There is nondisplaced c hip fracture of the base of the fifth metatarsal. Fracture line is still visible and not change in po sition compared to last exam. There is osteoarthritis at the third MP joint. IMPRESSION: No change compared to last exam.
[2019-02-19] MEDS ORDERED: SODIUM CHLORIDE 0.9% 500 ML 500 ML IV STA (17:16)
[2019-02-19] MEDS ORDERED: MORPHINE SULFATE 4 MG/ML SYRINGE IVP STA (17:17)
[2019-02-19 17:50] LABS: Albumin 4.6 g/dL (3.5-5.0); C Reactive Protein 28.6 mg/L (<10.0); Calcium 9.7 mg/dL (8.4-10.2); Potassium 4.9 mmol/L (3.5-5.1); Total Bilirubin 0.3 mg/dL (0.2-1.3); Total Protein 7.9 g/dL (6.3-8.2)
[2019-02-19 17:54] LABS: Basophils # (A) 0.1 k/uL (0-0.2); Basophils % (A) 1 %; Eosinophils # (A) 0.3 k/uL (0-0.7); Eosinophils % (A) 4 %; HCT 40.1 % (34.0-46.0); HGB 12.7 gm/dL (11.4-16.0); Lymphocytes # (A) 2.3 k/uL (1.0-4.8); Lymphocytes % (A) 27 %; MCH 27.3 pg (25.0-35.0); MCHC 31.6 g/dL (31.0-37.0); MCV 86.4 fL (80.0-100.0); Mean Platelet Volume 7.1; Monocytes # (A) 0.4 k/uL (0-1.0); Monocytes % (A) 5 %; Neutrophils # (A) 5.3 k/uL (1.3-7.7); Neutrophils % (A) 62 %; Platelet Count 447 k/uL (150-450); RBC 4.64 m/uL (3.80-5.40); RDW 14.3 % (11.5-15.5); WBC 8.5 k/uL (3.8-10.6)
--- NOTE | 2019-02-19 18:37 | US ---
EXAMINATION TYPE: US venous doppler duplex LE LT DATE OF EXAM: 02/19/2019 6:19 PM COMPARISON: NONE CLINICAL HISTORY: Pain. Patient has broken ankle. Pain. SIDE PERFORMED: Left TECHNIQUE: The lower extremity deep venous system is examined utilizing real time linear array sonog rodrigo with graded compression, doppler sonography and color-flow sonography. VESSELS IMAGED: External Iliac Vein (EIV) Common Femoral Vein Deep Femoral Vein Greater Saphenous Vein * Femoral Vein Popliteal Vein Small Saphenous Vein * Proximal Calf Veins (* superficial vessels) Left Leg: Negative for DVT No evidence of DVT left leg. IMPRESSION: No evidence of deep venous thrombosis in the left leg. Negative exam.
[2019-02-19 19:22] VITALS: BP 160/80; PULSE 81; RESP 16; TEMP 98.7
== END 2019-02-19 19:21 | disposition home or self-care (01) ==
LOC: EC 16:10
DX: S92.355A Nondisplaced fracture of fifth metatarsal bone, left foot, initial encounter for closed fracture (principal); J44.9 Chronic obstructive pulmonary disease, unspecified; F17.200 Nicotine dependence, unspecified, uncomplicated; X58.XXXA Exposure to other specified factors, initial encounter
CPT/HCPCS: 36415; 80053; 85025; 86140; 87040; 73630; 93971; 99284; 29515; 96374; 96361; J2270

== ENCOUNTER 2019-05-31 17:19 | Inpatient (IN) | payer BC ==
[2019-05-31] MEDS ORDERED: HYDROmorphone 1 MG/ML 1 ML SYRINGE IVP STA (17:39)
[2019-05-31] MEDS ORDERED: MORPHINE SULFATE 4 MG/ML SYRINGE IV STA (17:39)
[2019-05-31] MEDS ORDERED: SODIUM CHLORIDE 0.9% 1,000 ML IV STA (17:39)
--- NOTE | 2019-05-31 17:47 | ED ---
General Adult HPI - General Chief complaint: Abdominal Pain Stated complaint: abd pain Time Seen by Provider: 05/31/19 17:32 Source: patient Mode of arrival: ambulatory Limitations: no limitations - History of Present Illness Initial comments: Patient presented to the ED complaining of having epigastric abdominal pain radiating to her back, nausea, vomiting and diarrhea since last night. She states that her symptoms are typical of her pancreatitis flares. Patient denies alcohol or drug abuse. Patient denies trauma or injury. Patient denies fever or chills, chest pain, dyspnea, dizziness, lower abdominal pain, bloody or melanotic stool, hematemesis, dysuria or urinary symptoms, or any other symptoms or complaints. Patient states that she took a dose of her tramadol today without any relief. - Related Data Home Medications Medication Instructions Recorded Confirmed Albuterol Nebulized [Ventolin 2.5 mg INHALATION RT-QID PRN 08/31/16 05/31/19 Nebulized] Budesonide/Formoterol Fumarate 2 puff INHALATION RT-BID 05/31/19 05/31/19 [Symbicort 160-4.5 Mcg Inhaler] Estrogen,Con/M-Progest Acet 1 tab PO DAILY 05/31/19 05/31/19 [Prempro 0.3 mg-1.5 mg Tablet] Gabapentin [Neurontin] 400 mg PO QID 05/31/19 05/31/19 amLODIPine BESYLATE/BENAZEPRIL 1 cap PO DAILY 05/31/19 05/31/19 [Lotrel 2.5-10 MG] traMADol HCl [Ultram] 50 - 100 mg PO Q4H PRN 05/31/19 05/31/19 Allergies Allergy/AdvReac Type Severity Reaction Status Date / Time No Known Allergies Allergy Verified 05/31/19 17:49 Review of Systems ROS Statement: Those systems with pertinent positive or pertinent negative responses have been documented in the HPI. ROS Other: All systems not noted in ROS Statement are negative. Past Medical History Past Medical History: Chest Pain / Angina, COPD, CVA/TIA, GERD/Reflux, Hypertension, Osteoarthritis (OA), Rheumatoid Arthritis (RA) Additional Past Medical History / Comment(s): admitted to [facility] on 02/18/18 with colitis/sepsis/R renal cyst. Other hx: Recurrent pancreatitis, bronchitis, TIA, anemia-unknown cause, migraines, ostoeporosis, past R femur fracture with surgery.past l2 compression fx, History of Any Multi-Drug Resistant Organisms: None Reported Past Surgical History: Appendectomy, Back Surgery, Cholecystectomy, Orthopedic Surgery, Tonsillectomy Additional Past Surgical History / Comment(s): Pancreatic stents-since removed, 6 back surgeries with 2 fusions, right oophorectomy due to ectopic , EGD/colonoscopy, right leg alice inserted d/t fracture, Past Anesthesia/Blood Transfusion Reactions: No Reported Reaction Additional Past Anesthesia/Blood Transfusion Reaction / Comment(s): Pt has received blood in past without reaction. Past Psychological History: No Psychological Hx Reported Smoking Status: Current every day smoker Past Alcohol Use History: None Reported Past Drug Use History: None Reported - Past Family History Father Family Medical History: Cancer, Liver Disease Additional Family Medical History / Comment(s): Father was an alcoholic. He from lung/ liver cancer. Mother Family Medical History: Cancer, CVA/TIA, Hypertension Additional Family Medical History / Comment(s): Mother had breast and colon c ancer. She of liver cancer at the age of 78 yrs. General Exam Limitations: no limitations General appearance: alert, in no apparent distress Head exam: Present: atraumatic, normocephalic Eye exam: Present: normal appearance, EOMI ENT exam: Present: mucous membranes moist Neck exam: Absent: tenderness Respiratory exam: Present: normal lung sounds bilaterally. Absent: respiratory distress, wheezes, rales, rhonchi Cardiovascular Exam: Present: regular rate, normal rhythm, normal heart sounds, other (Normal radial pulse bilaterally) GI/Abdominal exam: Present: soft, normal bowel sounds, other (Moderate epigastric tenderness; negative Mega's, Robles Rutledge's and Espinoza's signs). Absent: distended, guarding, rebound Extremities exam: Absent: tenderness, pedal edema, calf tenderness Back exam: Absent: tenderness, CVA tenderness (R) Neurological exam: Present: alert, oriented X3 Psychiatric exam: Present: normal affect, normal mood Skin exam: Present: warm, dry, intact, normal color Course Vital Signs 05/31/19 17:23 Temperature 98.7 F Pulse Rate 86 Respiratory 18 Rate Blood Pressure 119/65 O2 Sat by Pulse 96 Oximetry - Reevaluation(s) Reevaluation #1: 05/31/19 20:32 Patient states that her pain has improved with the ED treatment, but she continues to have epigastric abdominal pain. Patient denies development of any new symptoms while in the ED. Patient is aware of her test results, and she agrees with hospital admission at this time. 05/31/19 20:36 Case, H&P, test results and ED management thus far were discussed with Dr. Isac Calvin who accepts floor admission. He agrees with placing an order for GI consultation. He has no further recommendations at this time. Medical Decision Making - Medical Decision Making Patient reports some improvement in her pain/symptoms with ED treatment. I suspect that the patient's symptoms are likely secondary to recurrent bout of acute pancreatitis. Will admit patient to the hospital at this time for further symptom management. Patient agrees with this plan. - Lab Data Result diagrams: 05/31/19 18:38 05/31/19 18:38 Lab Results 05/31/19 05/31/19 Range/Units 18:38 18:38 WBC 8.5 (3.8-10.6) k/uL RBC 4.53 (3.80-5.40) m/uL Hgb 13.3 (11.4-16.0) gm/dL Hct 38.8 (34.0-46.0) % MCV 85.7 (80.0-100.0) fL MCH 29.4 (25.0-35.0) pg MCHC 34.3 (31.0-37.0) g/dL RDW 13.7 (11.5-15.5) % Plt Count 334 (150-450) k/uL Neutrophils % 51 % Lymphocytes % 36 % Monocytes % 5 % Eosinophils % 5 % Basophils % 1 % Neutrophils # 4.4 (1.3-7.7) k/uL Lymphocytes # 3.0 (1.0-4.8) k/uL Monocytes # 0.5 (0-1.0) k/uL Eosinophils # 0.4 (0-0.7) k/uL Basophils # 0.1 (0-0.2) k/uL Sodium 136 L (137-145) mmol/L Potassium 4.5 (3.5-5.1) mmol/L Chloride 104 (98-107) mmol/L Carbon Dioxide 22 (22-30) mmol/L Anion Gap 10 mmol/L BUN 17 (7-17) mg/dL Creatinine 0.96 (0.52-1.04) mg/dL Est GFR (CKD-EPI)AfAm 73 (>60 ml/min/1.73 sqM) Est GFR (CKD-EPI)NonAf 63 (>60 ml/min/1.73 sqM) Glucose 114 H (74-99) mg/dL Calcium 9.3 (8.4-10.2) mg/dL Total Bilirubin 0.4 (0.2-1.3) mg/dL AST 26 (14-36) U/L ALT 12 (9-52) U/L Alkaline Phosphatase 81 (38-126) U/L Total Protein 7.8 (6.3-8.2) g/dL Albumin 4.5 (3.5-5.0) g/dL Amylase 72 (30-110) U/L Lipase 335 H (23-300) U/L - Radiology Data Radiology results: report reviewed (CT abdomen/pelvis with IV contrast shows biliary and pancreatic ductal dilatation. It also shows pancreatic duct and distal common bile duct calcifications.) Disposition Clinical Impression: Abdominal pain, Pancreatitis, acute Disposition: ADMITTED IP TO THIS [facility] Condition: Stable Is patient prescribed a controlled substance at d/c from ED?: No Time of Disposition: 20:44 Decision Date: 05/31/19 Decision Time: 20:34
[2019-05-31] MEDS ORDERED: ONDANSETRON 4 MG/2 ML VIAL IVP STA (17:48)
[2019-05-31 18:46] LABS: Basophils # (A) 0.1 k/uL (0-0.2); Basophils % (A) 1 %; Eosinophils # (A) 0.4 k/uL (0-0.7); Eosinophils % (A) 5 %; HCT 38.8 % (34.0-46.0); HGB 13.3 gm/dL (11.4-16.0); Lymphocytes % (A) 36 %; MCH 29.4 pg (25.0-35.0); MCHC 34.3 g/dL (31.0-37.0); MCV 85.7 fL (80.0-100.0); Mean Platelet Volume 6.3; Monocytes # (A) 0.5 k/uL (0-1.0); Monocytes % (A) 5 %; Neutrophils # (A) 4.4 k/uL (1.3-7.7); Neutrophils % (A) 51 %; Platelet Count 334 k/uL (150-450); RBC 4.53 m/uL (3.80-5.40); RDW 13.7 % (11.5-15.5); WBC 8.5 k/uL (3.8-10.6)
[2019-05-31 18:59] LABS: Albumin 4.5 g/dL (3.5-5.0); Calcium 9.3 mg/dL (8.4-10.2); Potassium 4.5 mmol/L (3.5-5.1); Total Bilirubin 0.4 mg/dL (0.2-1.3); Total Protein 7.8 g/dL (6.3-8.2)
--- NOTE | 2019-05-31 20:24 | CT ---
EXAMINATION TYPE: CT abdomen pelvis w con DATE OF EXAM: 05/31/2019 COMPARISON: 09/03/2018 INDICATION: Mid abdominal pain, nausea, vomiting and diarrhea. DLP: 977.7 mGycm, Automated exposure control for dose reduction was used. CONTRAST: 100ml mL of Isovue 300. Study performed without Oral Contrast TECHNIQUE: Axial images were obtained from above the diaphragm to the pubic rami in the axial plane a t 5 mm thick sections. Reconstructed images are reviewed on the computer in the coronal plane. FINDINGS: Limited CT sections are obtained the lung bases. The lung bases are clear. CT ABDOMEN: Liver: Biliary dilatation is evident. This may be slightly more prominent than prior. Common duct is prominent estimated to measure 1.5 cm. Spleen: Normal Pancreas: Pancreatic duct is prominent. Within the head of the pancreas are the 0.5 cm calcification. Additional punctate calcification may be distal measuring 0.3 cm. Additional 0.4 cm calcification ma y be at the accessory pancreatic duct more inferior to the main pancreatic duct. Bile duct entering t he head of the pancreas is prominent as previously mentioned. Adrenal glands: The adrenal glands are normal. Gallbladder: Normal Kidneys: No masses are evident. No hydronephrosis is present. Renal cysts are present in the right kidney. Delayed images were obtained through the kidneys, which remain unremarkable. Aorta: Vascular calcification is within the aorta. Inferior vena cava: Normal. CT PELVIS: Loops of bowel within the abdomen and pelvis are normal. Study is with limited oral contrast limi ting bowel evaluation. Appendix: Not identified Urinary bladder: Cystocele appears to be present. Genitourinary structures: The uterus is unremarkable. Adnexal regions are clear. Osseous structures: Fixation pedicle screws are present throughout the lumbar spine. Fixation rods ar e present. There appears to be some prior vertebroplasty. IMPRESSIONS: 1. Increasing intrahepatic biliary dilatation with a dilated common bile duct. The pancreatic duct i s increased in prominence and is very dilated at this time. There appear to be multiple calcification s within the pancreatic duct and distal common bile duct which may account for obstructions. 2. Cystocele
[2019-05-31] MEDS ORDERED: HYDROmorphone 0.5 MG/0.5 ML SYRINGE IVP STA (20:36)
[2019-05-31] MEDS ORDERED: NALOXONE 0.4 MG/ML 1 ML VIAL IV PRN (20:37)
[2019-05-31] MEDS: MORPHINE SULFATE 4 MG/ML SYRINGE IV PRN (22:39)
[2019-05-31] MEDS: SODIUM CHLORIDE 0.9% 1,000 ML IV SCH (22:39)
[2019-06-01] MEDS: MORPHINE SULFATE 4 MG/ML SYRINGE IV PRN ×3 (02:39→11:24)
[2019-06-01] MEDS: SODIUM CHLORIDE 0.9% 1,000 ML IV SCH ×2 (07:20→15:33)
[2019-06-01] MEDS ORDERED: ALBUTEROL NEBULIZED 2.5 MG/3 ML INHALATION PRN (07:48)
[2019-06-01 08:06] LABS: Basophils # (A) 0.1 k/uL (0-0.2); Basophils % (A) 2 %; Eosinophils # (A) 0.3 k/uL (0-0.7); Eosinophils % (A) 5 %; HCT 37.5 % (34.0-46.0); HGB 12.3 gm/dL (11.4-16.0); Lymphocytes # (A) 2.5 k/uL (1.0-4.8); Lymphocytes % (A) 35 %; MCH 28.5 pg (25.0-35.0); MCHC 32.8 g/dL (31.0-37.0); MCV 86.9 fL (80.0-100.0); Mean Platelet Volume 6.1; Monocytes # (A) 0.5 k/uL (0-1.0); Monocytes % (A) 7 %; Neutrophils # (A) 3.5 k/uL (1.3-7.7); Neutrophils % (A) 50 %; Platelet Count 360 k/uL (150-450); RBC 4.31 m/uL (3.80-5.40); RDW 13.8 % (11.5-15.5)
[2019-06-01 08:09] LABS: ALT 14 U/L (9-52); AST 22 U/L (14-36); African American GFR (CKD) >90 (>60 ml/min/1.73 sqM); Albumin 3.5 g/dL (3.5-5.0); Alkaline Phosphatase 70 U/L (38-126); Anion Gap 2 mmol/L; Blood Urea Nitrogen 11 mg/dL (7-17); Calcium 8.7 mg/dL (8.4-10.2); Carbon Dioxide 24 mmol/L (22-30); Chloride 114 mmol/L (98-107); Glucose 104 mg/dL (74-99); Non-African American GFR(CKD) >90 (>60 ml/min/1.73 sqM); Potassium 4.7 mmol/L (3.5-5.1); Sodium 140 mmol/L (137-145); Total Bilirubin 0.4 mg/dL (0.2-1.3); Total Protein 6.4 g/dL (6.3-8.2)
[2019-06-01] MEDS: SYMBICORT 160-4.5 MCG INHALER INHALATION SCH ×2 (08:15→20:32)
[2019-06-01] MEDS: M PROGEST ACET PO SCH (08:29)
[2019-06-01] MEDS: ESTROGEN CON PO SCH (08:29)
[2019-06-01] MEDS: amLODIPine 2.5 MG TAB PO SCH (08:50)
[2019-06-01] MEDS: GABAPENTIN 400 MG CAP PO SCH ×4 (08:50→21:16)
[2019-06-01] MEDS: LISINOPRIL 10 MG TAB PO SCH (08:50)
--- NOTE | 2019-06-01 12:30 | P.GSCN ---
History of Present Illness Consult date: 06/01/19 Reason for Consult: Pancreatitis History of present illness: The patient presents with abdominal pain. She has a history of recurrent pancreatitis. She has had cholecystectomy. Chart is reviewed. Past Medical History Past Medical History: Chest Pain / Angina, COPD, CVA/TIA, GERD/Reflux, Hypertension, Osteoarthritis (OA), Rheumatoid Arthritis (RA) Additional Past Medical History / Comment(s): admitted to [facility] on 02/18/18 with colitis/sepsis/R renal cyst. Other hx: Recurrent pancreatitis, bronchitis, TIA, anemia-unknown cause, migraines, ostoeporosis, past R femur fracture with surgery.past l2 compression fx, History of Any Multi-Drug Resistant Organisms: None Reported Past Surgical History: Appendectomy, Back Surgery, Cholecystectomy, Orthopedic Surgery, Tonsillectomy Additional Past Surgical History / Comment(s): Pancreatic stents-since removed, 6 back surgeries with 2 fusions, right oophorectomy due to ectopic , EGD/colonoscopy, right leg alice inserted d/t fracture, Past Anesthesia/Blood Transfusion Reactions: No Reported Reaction Additional Past Anesthesia/Blood Transfusion Reaction / Comm: Pt has received blood in past without reaction. Past Psychological History: No Psychological Hx Reported Additional Psychological History / Comment(s): Pt resides with her spouse . Smoking Status: Current every day smoker Past Alcohol Use History: None Reported Additional Past Alcohol Use History / Comment(s): Pt started smoking in 1980 Past Drug Use History: None Reported Additional Drug Use History / Comment(s): Currently smoking 1/4 PPD - Past Family History Father Family Medical History: Cancer, Liver Disease Additional Family Medical History / Comment(s): Father was an alcoholic. He from lung/ liver cancer. Mother Family Medical History: Cancer, CVA/TIA, Hypertension Additional Family Medical History / Comment(s): Mother had breast and colon cancer. She of liver cancer at the age of 78 yrs. Medications and Allergies Home Medications Medication Instructions Recorded Confirmed Type Albuterol Nebulized [Ventolin 2.5 mg INHALATION RT-QID PRN 08/31/16 05/31/19 History Nebulized] Budesonide/Formoterol Fumarate 2 puff INHALATION RT-BID 05/31/19 05/31/19 History [Symbicort 160-4.5 Mcg Inhaler] Estrogen,Con/M-Progest Acet 1 tab PO DAILY 05/31/19 05/31/19 History [Prempro 0.3 mg-1.5 mg Tablet] Gabapentin [Neurontin] 400 mg PO QID 05/31/19 05/31/19 History amLODIPine BESYLATE/BENAZEPRIL 1 cap PO DAILY 05/31/19 05/31/19 History [Lotrel 2.5-10 MG] traMADol HCl [Ultram] 50 - 100 mg PO Q4H PRN 05/31/19 05/31/19 History Allergies Allergy/AdvReac Type Severity Reaction Status Date / Time No Known Allergies Allergy Verified 05/31/19 17:49 Surgical - Exam Osteopathic Statement: *. No significant issues noted on an osteopathic struct ural exam other than those noted in the History and Physical/Consult. Vital Signs Temp Pulse Resp BP Pulse Ox 98.7 F 86 18 119/65 96 05/31/19 17:23 05/31/19 17:23 05/31/19 17:23 05/31/19 17:23 05/31/19 17:23 - General well developed, well nourished, no distress Results - Labs 06/01/19 07:01 06/01/19 07:01 Abnormal Lab Results - Last 24 Hours (Table) 05/31/19 06/01/19 Range/Units 18:38 07:01 Sodium 136 L (137-145) mmol/L Chloride 114 H (98-107) mmol/L Glucose 114 H 104 H (74-99) mg/dL Lipase 335 H (23-300) U/L Diabetes panel 05/31/19 06/01/19 Range/Units 18:38 07:01 Sodium 136 L 140 (137-145) mmol/L Potassium 4.5 4.7 (3.5-5.1) mmol/L Chloride 104 114 H (98-107) mmol/L Carbon Dioxide 22 24 (22-30) mmol/L BUN 17 11 (7-17) mg/dL Creatinine 0.96 0.66 (0.52-1.04) mg/dL Glucose 114 H 104 H (74-99) mg/dL Calcium 9.3 8.7 (8.4-10.2) mg/dL AST 26 22 (14-36) U/L ALT 12 14 (9-52) U/L Alkaline Phosphatase 81 70 (38-126) U/L Total Protein 7.8 6.4 (6.3-8.2) g/dL Albumin 4.5 3.5 (3.5-5.0) g/dL Calcium panel 05/31/19 06/01/19 Range/Units 18:38 07:01 Calcium 9.3 8.7 (8.4-10.2) mg/dL Albumin 4.5 3.5 (3.5-5.0) g/dL Pituitary panel 05/31/19 06/01/19 Range/Units 18:38 07:01 Sodium 136 L 140 (137-145) mmol/L Potassium 4.5 4.7 (3.5-5.1) mmol/L Chloride 104 114 H (98-107) mmol/L Carbon Dioxide 22 24 (22-30) mmol/L BUN 17 11 (7-17) mg/dL Creatinine 0.96 0.66 (0.52-1.04) mg/dL Glucose 114 H 104 H (74-99) mg/dL Calcium 9.3 8.7 (8.4-10.2) mg/dL Adrenal panel 05/31/19 06/01/19 Range/Units 18:38 07:01 Sodium 136 L 140 (137-145) mmol/L Potassium 4.5 4.7 (3.5-5.1) mmol/L Chloride 104 114 H (98-107) mmol/L Carbon Dioxide 22 24 (22-30) mmol/L BUN 17 11 (7-17) mg/dL Creatinine 0.96 0.66 (0.52-1.04) mg/dL Glucose 114 H 104 H (74-99) mg/dL Calcium 9.3 8.7 (8.4-10.2) mg/dL Total Bilirubin 0.4 0.4 (0.2-1.3) mg/dL AST 26 22 (14-36) U/L ALT 12 14 (9-52) U/L Alkaline Phosphatase 81 70 (38-126) U/L Total Protein 7.8 6.4 (6.3-8.2) g/dL Albumin 4.5 3.5 (3.5-5.0) g/dL Assessment and Plan (1) Pancreatitis, acute Current Visit: Yes Status: Acute Code(s): K85.90 - ACUTE PANCREATITIS WITHOUT NECROSIS OR INFECTION, UNSP SNOMED Code(s): 362429427 (2) History of pancreatitis Current Visit: No Status: Acute Code(s): Z87.19 - PERSONAL HISTORY OF OTHER DISEASES OF THE DIGESTIVE SYSTEM SNOMED Code(s): 84312076412572 Plan: The patient has known chronic pancreatitis. She is status post laparoscopic cholecystectomy. Therefore I will defer any recommendations and treatments to gastroenterology.
--- NOTE | 2019-06-01 14:08 | CONS ---
CONSULTATION DATE OF DICTATION: June 01, 2019. REQUESTING PHYSICIAN: Dr. Simpson REASON FOR CONSULTATION: Acute recurrent pancreatitis. HISTORY OF PRESENT ILLNESS: The patient is a 63-year-old pleasant white female with history of acute recurrent pancreatitis for the last 15 years duration with multiple hospitalizations over the last several years. She presents to the hospital with the pain that started on Sunday. Pain was progressively getting worse, radiates to the right upper quadrant area associated with nausea, vomiting, came to the emergency room, was noted to have mild elevation of lipase consistent with acute pancreatitis. She did have a CT of the abdomen and pelvis done that showed calcifications in the pancreatic duct as well as in the distal common bile duct with slight dilation of CBD and pancreatic duct. The patient was hospitalized four times this year. Her first attack of pancreatitis was about approximately 15 years ago. The patient states that she was investigated in the past at [facility] and had an ERCP and EUS of the pancreas, results of which are not available at the time of this dictation and the etiology of pancreatitis always remained unclear. She denies any history of alcohol abuse. No family history of chronic pancreatitis. PAST MEDICAL HISTORY: Significant for acute recurrent pancreatitis, coronary artery disease, COPD, GERD, hypertension, osteoarthritis. PAST SURGICAL HISTORY: Cholecystectomy 8 years ago, appendectomy, back surgery, tonsillectomy, ERCP with EUS 8 years ago, back fusion. MEDICATIONS: At home include albuterol, Symbicort, Prempro, Amlodipine, Lotrel, Ultram. ALLERGIES: None. SOCIAL HISTORY: Chronic smoker. No alcohol use. FAMILY HISTORY: Father had liver disease and mother had CVA and hypertension. Mother also had colon cancer. REVIEW OF SYSTEMS: CARDIOPULMONARY: She denies any chest pain, shortness of breath. GENITOURINARY: No dysuria or hematuria. MUSCULOSKELETAL: Unremarkable. SKIN unremarkable. ENDOCRINE unremarkable. PSYCHIATRIC unremarkable. NEUROLOGY unremarkable. MUSCULOSKELETAL chronic back pain. ENT/vision unremarkable. CONSTITUTIONAL: No recent weight loss. No fever, chills, night sweats. GI: As mentioned above. ENDOCRINOLOGY: Unremarkable. HEMATOLOGY unremarkable. PHYSICAL EXAMINATION: She appears comfortable. No apparent distress. Vital signs are stable. Blood pressure 123/76, pulse rate 67, temperature 98.2. HEENT examination unremarkable. Conjunctivae pink. Sclerae anicteric. Oral cavity no lesions. NECK: No JVD or lymph node enlargement. CHEST: Clear to auscultation. HEART: Regular rate and rhythm. ABDOMEN: Soft. Mild tenderness in the epigastric area as well as in the right upper quadrant area. No rebound or rigidity. Bowel sounds are positive. No organomegaly. EXTREMITIES: No pedal edema. SKIN no rashes. NEUROLOGIC: Alert, and oriented x3. No focal deficits. LABS: Done yesterday, WBC 8.5, hemoglobin 13.3, platelets normal. Basic metabolic panel is within normal limits. ALT, AST, T-bilirubin and alkaline phosphatase are normal. Lipase was 335, today it is 240. IMPRESSION: Acute recurrent pancreatitis for the last 15 years duration. She had several episodes with multiple hospitalizations in the past several years, no history of alcohol abuse. Was investigated for acute pancreatitis at [facility] approximately 8 years ago and according to the patient, she had an endoscopic ultrasound of the pancreas as well as ERCP with pancreatic stent placement, but none of the results are available at the time of this dictation. Recent CT scan of the abdomen did show calcifications in the pancreas consistent with chronic calcific pancreatitis and the etiology remains unclear. The patient has remote history of gallbladder surgery. RECOMMENDATIONS: 1. Symptomatic and supportive care. 2. We will start her on clear liquid diet. 3. Pain medications as needed. 4. The patient needs to be investigated with an EUS of the pancreas on an outpatient basis once this attack subsides. I suggested to her that she follow up in the office in 1-2 weeks following discharge from the hospital and appropriate arrangements will be made. Thank you for this consultation. MMODL / IJN: [id number] /
[2019-06-01] MEDS: HYDROmorphone 1 MG/ML 1 ML SYRINGE IVP PRN ×3 (15:31→23:12)
--- NOTE | 2019-06-01 17:51 | HP ---
HISTORY AND PHYSICAL 63-year-old white female admitted with recurrent pancreatitis status post cholecystectomy. PAST MEDICAL HISTORY: Of COPD, CVA, TIA, GERD, hypertension, osteoarthritis, rheumatoid arthritis. He came severe abdominal pain, nausea, vomiting. PAST SURGICAL HISTORY: Appendectomy, back surgery, cholecystectomy, orthopedic surgery, tonsillectomy, pancreatic stents since removed, 6 back surgeries, 2 fusions, right oophorectomy, EGD, colonoscopy, right leg alice inserted fracture. SOCIAL HISTORY: Current everyday smoker. No alcohol. FAMILY HISTORY: Father with liver disease and alcoholic. Mother with CVA, TIA and hypertension. Mother had breast and colon cancer, of liver cancer at age 78. MEDICATIONS: Include Ventolin, Symbicort, Prempro, Neurontin, amlodipine, benazepril, tramadol. ALLERGIES: Negative. PHYSICAL EXAMINATION: Temperature 98.7, pulse 80s, respiratory 16-18, blood pressure is 119/65, O2 96. White count 7, hemoglobin 12.3, sodium 140, potassium 4.7, BUN is 11, creatinine 0.66. ASSESSMENT AND PLAN: 1. Acute pancreatitis. 2. History of pancreatitis. 3. History of cerebrovascular accident/ transient ischemic attack. 4. Hypertension. 5. Continue home medicines. 6. Surgical consult. 7. Possible gastroenterology and surgical consultations will be done. MMODL / IJN: [id number] /
[2019-06-02] MEDS: SODIUM CHLORIDE 0.9% 1,000 ML IV SCH ×3 (02:17→21:42)
[2019-06-02] MEDS: HYDROmorphone 1 MG/ML 1 ML SYRINGE IVP PRN ×6 (03:10→22:30)
[2019-06-02] MEDS: amLODIPine 2.5 MG TAB PO SCH (08:18)
[2019-06-02] MEDS: GABAPENTIN 400 MG CAP PO SCH ×4 (08:19→21:22)
[2019-06-02] MEDS: LISINOPRIL 10 MG TAB PO SCH (08:19)
[2019-06-02] MEDS: ONDANSETRON 4 MG/2 ML VIAL IVP PRN (08:21)
[2019-06-02] MEDS: SYMBICORT 160-4.5 MCG INHALER INHALATION SCH ×2 (08:39→20:19)
[2019-06-02] MEDS: ESTROGEN CON PO SCH (08:55)
[2019-06-02] MEDS: M PROGEST ACET PO SCH (08:55)
--- NOTE | 2019-06-02 18:00 | PN ---
PROGRESS NOTE DATE OF DICTATION: 06/02/2019 Patient is a 63-year-old pleasant white female with acute recurrent pancreatitis admitted to the hospital with abdominal pain, nausea, vomiting and elevated amylase and lipase 2 days ago. She feels a little bit better today on a clear liquid diet. Still complaining of epigastric pain, but overall feels much better. No fever, chills or night sweats. She had 6 episodes of loose bowel movements since being in the hospital. She continues to take pain medications every 6 hours. PHYSICAL EXAMINATION: She appears comfortable, in no apparent distress. VITAL SIGNS: Stable. Blood pressure is 127/65, pulse rate 63, temperature 98.5. HEENT examination unremarkable. Conjunctivae pink. Sclerae anicteric. Oral cavity no lesions. NECK: No JVD or lymph node enlargement. CHEST: Clear to auscultation. HEART: Regular rate and rhythm. ABDOMEN: Soft. Bowel sounds are positive. No organomegaly. Mild tenderness in the epigastric area. EXTREMITIES: No pedal edema. SKIN: No rashes. NEUROLOGIC: Alert and oriented x3. No focal deficits. LABS: Labs from today are not available. Lipase yesterday was 240. ALT, AST, T-bilirubin and alkaline phosphatase were normal. IMPRESSION: 1. Acute recurrent pancreatitis with severe epigastric pain associated with nausea, vomiting; symptoms gradually improving. Tolerating clear liquids well. 2. Acute onset of diarrhea since this morning. She had 6 episodes of loose watery bowel movements today. Rule out C difficile colitis. RECOMMENDATIONS: 1. Obtain C difficile toxin in the stool. 2. Continue with the clear liquid diet. 3. Symptomatic and supportive care for acute recurrent pancreatitis. 4. If her symptoms improve, the diet can be advanced as tolerated tomorrow and she can be discharged home in the next 1-2 days. Thank you for this consultation. MMODL / IJN: [id number] /
--- NOTE | 2019-06-02 22:58 | PN ---
PROGRESS NOTE The patient has acute on chronic pancreatitis. Remains getting fluids. Wants increase in her pain medication. No chest pain or shortness of breath. CARDIOVASCULAR: S1, S2. LUNGS: Clear. GI: Soft. Tender to palpation, diffuse. HEMATOLOGY: Negative Homans. ASSESSMENT: 1. Acute on chronic pancreatitis. 2. Degenerative disc disease. 3. Chronic obstructive pulmonary disease. Remain on broad-spectrum pain control. Clear liquids., Advance diet per surgical and GI recommendations. MMODL / IJN: [id number] /
[2019-06-03] MEDS: HYDROmorphone 1 MG/ML 1 ML SYRINGE IVP PRN ×6 (02:23→22:24)
[2019-06-03] MEDS: SODIUM CHLORIDE 0.9% 1,000 ML IV SCH ×2 (06:07→16:24)
[2019-06-03] MEDS: ESTROGEN CON PO SCH (08:40)
[2019-06-03] MEDS: M PROGEST ACET PO SCH (08:40)
[2019-06-03] MEDS: amLODIPine 2.5 MG TAB PO SCH (08:42)
[2019-06-03] MEDS: LISINOPRIL 10 MG TAB PO SCH (08:42)
[2019-06-03] MEDS: GABAPENTIN 400 MG CAP PO SCH ×4 (08:43→22:23)
[2019-06-03] MEDS: ONDANSETRON 4 MG/2 ML VIAL IVP PRN ×2 (08:44→13:49)
[2019-06-03] MEDS: SYMBICORT 160-4.5 MCG INHALER INHALATION SCH ×2 (09:05→21:09)
[2019-06-03] MEDS ORDERED: ONDANSETRON 4 MG/2 ML VIAL IVP PRN (13:44)
--- NOTE | 2019-06-03 16:55 | PN ---
PROGRESS NOTE DATE OF DICTATION: 06/03/2019 Patient is a 63-year-old pleasant white female admitted to the hospital with chronic relapsing pancreatitis. She still continues to complain of abdominal pain, on a clear liquid diet; still not tolerating well. Requesting pain medications every 3 hours. Also has nausea, vomiting; had one episode just a few hours ago. No fever, chills, night sweats. PHYSICAL EXAMINATION: VITAL SIGNS: Blood pressure is 132/79, pulse rate 63, temperature 97.4. HEENT examination unremarkable. Conjunctivae pink. Sclerae anicteric. Oral cavity no lesions. NECK: No JVD or lymph node enlargement. CHEST: Clear to auscultation. HEART: Regular rate and rhythm. ABDOMEN: Soft. There was mild tenderness in the epigastric area. Bowel sounds are positive. No organomegaly. EXTREMITIES: No pedal edema. SKIN: No rashes. NEUROLOGIC: Alert and oriented x3. No focal deficits. LABS FROM TODAY: None available. IMPRESSION: 1. Chronic relapsing pancreatitis, gradually improving. Still has some abdominal pain and requesting pain medications quite often. 2. Lipase normalized. 3. Nausea and vomiting, resolving. RECOMMENDATIONS: 1. Will advance to full liquid diet. 2. Pain medications as needed, but I encouraged the patient to decrease the frequency of the medication. 3. Antiemetics as needed. 4. Hopefully discharge home in 1-2 days. Thank you for this consultation. EUGENE / ALONA: [id number] /
--- NOTE | 2019-06-03 22:05 | PN ---
PROGRESS NOTE Wbvtn-grjsd-atwv-old white female with acute on chronic pancreatitis, degenerative disc disease, COPD, having no chest pain or shortness of breath. No lightheadedness, syncope. Abdominal pain continues and is bad at this time. Wait for GI and surgical recommendations. CARDIOVASCULAR: S1, S2. LUNGS: Clear. GI: Tenderness to palpation. Diffuse abdomen. Questionable guarding. ASSESSMENT: 1. Acute on chronic pancreatitis. 2. Degenerative disc disease. 3. Chronic obstructive pulmonary disease. Continue current treatments, IV pain medications. Follow up in the next 24-48 hours. MMODL / IJN: [id number] /
[2019-06-04] MEDS: HYDROmorphone 1 MG/ML 1 ML SYRINGE IVP PRN ×6 (02:16→21:43)
[2019-06-04] MEDS: GABAPENTIN 400 MG CAP PO SCH ×4 (08:00→21:43)
[2019-06-04] MEDS: LISINOPRIL 10 MG TAB PO SCH (08:00)
[2019-06-04] MEDS: amLODIPine 2.5 MG TAB PO SCH (08:00)
[2019-06-04] MEDS: ESTROGEN CON PO SCH (08:01)
[2019-06-04] MEDS: M PROGEST ACET PO SCH (08:01)
[2019-06-04] MEDS ORDERED: ONDANSETRON 4 MG/2 ML VIAL IVP PRN (09:55)
[2019-06-04] MEDS: SYMBICORT 160-4.5 MCG INHALER INHALATION SCH ×2 (11:38→19:38)
[2019-06-04] MEDS: SODIUM CHLORIDE 0.9% 1,000 ML IV SCH ×3 (13:58→21:45)
--- NOTE | 2019-06-04 21:00 | PN ---
PROGRESS NOTE DATE OF SERVICE: June 04, 2019. REQUESTING PHYSICIAN: Dr. Isac Calvin. The patient is a 63-year-old pleasant white female admitted to the hospital with acute on chronic pancreatitis. She is still complaining of abdominal pain, but feeling much better. She is on a full liquid diet, tolerating well. Requesting for the diet to be advanced. She reports no nausea, vomiting. No fever, chills, night sweats. PHYSICAL EXAMINATION: She appears comfortable. No apparent distress. VITAL SIGNS: Stable. Blood pressure is 152/98, pulse rate 70, temperature 97.8. HEENT examination unremarkable. Conjunctivae pink. Sclerae anicteric. Oral cavity no lesions. NECK: No JVD or lymph node enlargement. CHEST: Clear to auscultation. HEART: Regular rate and rhythm. ABDOMEN: Soft. There was mild tenderness in the epigastric area. Bowel sounds are positive. No organomegaly. EXTREMITIES: No pedal edema. SKIN no rashes. NEUROLOGIC: Alert and oriented x3. No focal deficits. LABS: No labs available from today. IMPRESSION: Acute on chronic pancreatitis, gradually improving. The patient is having pain medications every 3 hours, on a full liquid diet, tolerating well. RECOMMENDATIONS: 1. Will advance to a low-fat diet tomorrow morning. 2. Increase the patient to decrease the pain medications. 3. If she is able to tolerate diet, she can be discharged home tomorrow with an outpatient followup in 2 weeks. MMODL / IJN: [id number] /
--- NOTE | 2019-06-04 22:50 | PN ---
PROGRESS NOTE SUBJECTIVE: This is a 63-year-old white white female with acute on chronic pancreatitis, degenerative disc disease , COPD. Remains on current treatment for pancreatitis. States she is having some pudding today and some clear liquids. Will advance diet, as her lipase is now normal. pain medicines. Continue PT/OT. CARDIOVASCULAR: S1, S2. LUNGS: Clear. GI: Diffuse tenderness. HEMATOLOGY: Negative Homans. ASSESSMENT: 1. Acute on chronic pancreatitis. 2. Degenerative disc disease. 3. Chronic obstructive pulmonary disease. Advance diet. Monitor lipase. Monitor pain. Continue PT. MMODL / IJN: [id number] /
[2019-06-05] MEDS: HYDROmorphone 1 MG/ML 1 ML SYRINGE IVP PRN ×6 (01:43→22:01)
[2019-06-05 07:52] LABS: Basophils # (A) 0.1 k/uL (0-0.2); Basophils % (A) 1 %; Eosinophils # (A) 0.3 k/uL (0-0.7); Eosinophils % (A) 4 %; HCT 41.7 % (34.0-46.0); HGB 13.1 gm/dL (11.4-16.0); Lymphocytes % (A) 26 %; MCH 28.3 pg (25.0-35.0); MCHC 31.6 g/dL (31.0-37.0); MCV 89.5 fL (80.0-100.0); Mean Platelet Volume 6.7; Monocytes # (A) 0.5 k/uL (0-1.0); Monocytes % (A) 6 %; Neutrophils # (A) 4.6 k/uL (1.3-7.7); Neutrophils % (A) 61 %; Platelet Count 340 k/uL (150-450); RBC 4.65 m/uL (3.80-5.40); RDW 13.7 % (11.5-15.5); WBC 7.6 k/uL (3.8-10.6)
[2019-06-05] MEDS: SYMBICORT 160-4.5 MCG INHALER INHALATION SCH ×2 (07:54→19:31)
[2019-06-05] MEDS: GABAPENTIN 400 MG CAP PO SCH ×4 (08:01→20:25)
[2019-06-05] MEDS: amLODIPine 2.5 MG TAB PO SCH (08:01)
[2019-06-05] MEDS: LISINOPRIL 10 MG TAB PO SCH (08:01)
[2019-06-05 08:02] LABS: ALT 16 U/L (9-52); AST 19 U/L (14-36); African American GFR (CKD) >90 (>60 ml/min/1.73 sqM); Alkaline Phosphatase 82 U/L (38-126); Anion Gap 10 mmol/L; Blood Urea Nitrogen 7 mg/dL (7-17); Calcium 9.6 mg/dL (8.4-10.2); Carbon Dioxide 22 mmol/L (22-30); Chloride 109 mmol/L (98-107); Glucose 132 mg/dL (74-99); Non-African American GFR(CKD) >90 (>60 ml/min/1.73 sqM); Potassium 4.1 mmol/L (3.5-5.1); Sodium 141 mmol/L (137-145); Total Bilirubin 0.3 mg/dL (0.2-1.3); Total Protein 7.1 g/dL (6.3-8.2)
[2019-06-05] MEDS: ESTROGEN CON PO SCH (08:15)
[2019-06-05] MEDS: M PROGEST ACET PO SCH (08:15)
[2019-06-05] MEDS: SODIUM CHLORIDE 0.9% 1,000 ML IV SCH (14:23)
[2019-06-06] MEDS: SODIUM CHLORIDE 0.9% 1,000 ML IV SCH (00:30)
[2019-06-06] MEDS: HYDROmorphone 1 MG/ML 1 ML SYRINGE IVP PRN ×4 (01:55→13:59)
[2019-06-06 05:30] VITALS: RESP 16
--- NOTE | 2019-06-06 06:13 | PN ---
PROGRESS NOTE SUBJECTIVE: A 63-year-old white female, acute on chronic pancreatitis, degenerative disc disease, COPD. Still has diffuse abdominal pain. Continues on IV pain medicine. Diet is being advanced. We will check amylase and lipase in the morning. CARDIOVASCULAR: S1, S2. LUNGS: Clear. GI: Mild diffuse tenderness. HEMATOLOGY: Negative Homans. ASSESSMENT: 1. Acute on chronic pancreatitis. 2. Degenerative disc disease. 3. Chronic obstructive pulmonary disease. 4. Chronic pain control. Continue current treatment. Follow up in the next 24 to 48 hours. Advance diet. Check lipase in the morning. MMODL / IJN: [id number] /
[2019-06-06] MEDS: SYMBICORT 160-4.5 MCG INHALER INHALATION SCH (07:23)
[2019-06-06 07:35] LABS: Basophils # (A) 0.1 k/uL (0-0.2); Basophils % (A) 1 %; Eosinophils # (A) 0.3 k/uL (0-0.7); Eosinophils % (A) 4 %; HGB 13.1 gm/dL (11.4-16.0); Lymphocytes # (A) 2.3 k/uL (1.0-4.8); Lymphocytes % (A) 32 %; MCHC 32.8 g/dL (31.0-37.0); MCV 88.6 fL (80.0-100.0); Mean Platelet Volume 6.2; Monocytes # (A) 0.4 k/uL (0-1.0); Monocytes % (A) 6 %; Neutrophils % (A) 55 %; Platelet Count 357 k/uL (150-450); RBC 4.52 m/uL (3.80-5.40); RDW 13.6 % (11.5-15.5); WBC 7.2 k/uL (3.8-10.6)
[2019-06-06] MEDS: ESTROGEN CON PO SCH (07:38)
[2019-06-06] MEDS: M PROGEST ACET PO SCH (07:38)
[2019-06-06 07:42] LABS: ALT 15 U/L (9-52); AST 16 U/L (14-36); African American GFR (CKD) >90 (>60 ml/min/1.73 sqM); Albumin 3.9 g/dL (3.5-5.0); Alkaline Phosphatase 86 U/L (38-126); Anion Gap 10 mmol/L; Blood Urea Nitrogen 11 mg/dL (7-17); Calcium 9.5 mg/dL (8.4-10.2); Carbon Dioxide 21 mmol/L (22-30); Chloride 110 mmol/L (98-107); Glucose 111 mg/dL (74-99); Non-African American GFR(CKD) >90 (>60 ml/min/1.73 sqM); Potassium 3.8 mmol/L (3.5-5.1); Sodium 141 mmol/L (137-145); Total Bilirubin 0.3 mg/dL (0.2-1.3); Total Protein 6.8 g/dL (6.3-8.2)
[2019-06-06] MEDS: amLODIPine 2.5 MG TAB PO SCH (08:49)
[2019-06-06] MEDS: LISINOPRIL 10 MG TAB PO SCH (08:49)
[2019-06-06] MEDS: GABAPENTIN 400 MG CAP PO SCH ×2 (08:49→13:59)
[2019-06-06 11:50] VITALS: BMI 21.9
[2019-06-06 14:06] VITALS: BP 138/72; PULSE 70; TEMP 98.6
--- NOTE | 2019-06-25 05:45 | DS ---
DISCHARGE SUMMARY DATE OF ADMISSION: 06/01/2019 DATE OF DISCHARGE: 06/06/2019 MEDICATIONS: 1. Albuterol 2.5 q.i.d. 2. Tramadol 50 mg q.4. 3. Symbicort 160/4.5 two puffs b.i.d. 4. Lotrel 2.5/10 one tab daily. 5. Neurontin 400 mg q.i.d. 6. Prempro 1 daily. CONDITION: Stable. PROGNOSIS: Guarded. AMBULATE: As tolerated. HOSPITAL COURSE OF EVENTS: This is a white female who came in with acute on chronic pancreatitis. Her diet was slowly advanced after being n.p.o. for a couple days. She was seen by GI physician who cleared her for discharge. Low-fat diet. Wean her off pain medicines. She was discharged home. Follow up in 2 weeks in office and GI Clinic. EUGENE / ALONA: [id number] /
== END 2019-06-06 15:45 | disposition home or self-care (01) | DRG 440 ==
LOC: EC 17:19 → 3NMEDONC 20:42 → OBSVTOIN 06-01 12:20
PROVIDERS: ADMIT Family Medicine; ATTEND Family Medicine
DX: K85.90 Acute pancreatitis without necrosis or infection, unspecified (principal); K86.1 Other chronic pancreatitis; F17.210 Nicotine dependence, cigarettes, uncomplicated; G89.29 Other chronic pain; I10 Essential (primary) hypertension; I25.10 Atherosclerotic heart disease of native coronary artery without angina pectoris; J44.9 Chronic obstructive pulmonary disease, unspecified; K21.9 Gastro-esophageal reflux disease without esophagitis; M06.9 Rheumatoid arthritis, unspecified; Y83.6 Removal of other organ (partial) (total) as the cause of abnormal reaction of the patient, or of later complication, without mention of misadventure at the time of the procedure; Z79.51 Long term (current) use of inhaled steroids; Z80.0 Family history of malignant neoplasm of digestive organs; Z81.1 Family history of alcohol abuse and dependence; Z82.3 Family history of stroke; Z82.49 Family history of ischemic heart disease and other diseases of the circulatory system; Z86.73 Personal history of transient ischemic attack (TIA), and cerebral infarction without residual deficits; Z90.49 Acquired absence of other specified parts of digestive tract; Z90.721 Acquired absence of ovaries, unilateral; Z98.1 Arthrodesis status; Z79.818 Long term (current) use of other agents affecting estrogen receptors and estrogen levels; Z79.899 Other long term (current) drug therapy
CPT/HCPCS: 36415; 74177; 80053; 82150; 83690; 85025; 94640; 96361; 96374; 96375; 96376; 99285

== ENCOUNTER 2019-06-10 13:54 | Emergency (ER) | payer BC ==
[2019-06-10 14:04] VITALS: BP 144/89; PULSE 89; RESP 20; TEMP 98.3
[2019-06-10] MEDS ORDERED: SODIUM CHLORIDE 0.9% 1,000 ML IV STA (14:22)
[2019-06-10] MEDS ORDERED: KETOROLAC 30 MG/ML 1 ML VIAL IVP STA ×2 (14:38→14:42)
[2019-06-10] MEDS ORDERED: ONDANSETRON 4 MG/2 ML VIAL IVP STA (14:38)
[2019-06-10] MEDS ORDERED: HYDROmorphone 1 MG/ML 1 ML SYRINGE IM STA (14:54)
[2019-06-10 14:55] LABS: Basophils # (A) 0.2 k/uL (0-0.2); Basophils % (A) 2 %; Eosinophils # (A) 0.5 k/uL (0-0.7); Eosinophils % (A) 6 %; HGB 13.8 gm/dL (11.4-16.0); Lymphocytes # (A) 3.6 k/uL (1.0-4.8); Lymphocytes % (A) 37 %; MCH 30.1 pg (25.0-35.0); MCHC 33.6 g/dL (31.0-37.0); MCV 89.6 fL (80.0-100.0); Mean Platelet Volume 7.5; Monocytes # (A) 0.6 k/uL (0-1.0); Monocytes % (A) 6 %; Neutrophils # (A) 4.6 k/uL (1.3-7.7); Neutrophils % (A) 48 %; Platelet Count 342 k/uL (150-450); RBC 4.58 m/uL (3.80-5.40); RDW 13.8 % (11.5-15.5); WBC 9.7 k/uL (3.8-10.6)
[2019-06-10 15:04] LABS: ALT 18 U/L (9-52); AST 29 U/L (14-36); African American GFR (CKD) >90 (>60 ml/min/1.73 sqM); Albumin 4.6 g/dL (3.5-5.0); Alkaline Phosphatase 106 U/L (38-126); Amylase 61 U/L (30-110); Anion Gap 8 mmol/L; Blood Urea Nitrogen 17 mg/dL (7-17); Calcium 9.9 mg/dL (8.4-10.2); Carbon Dioxide 25 mmol/L (22-30); Chloride 102 mmol/L (98-107); Glucose 123 mg/dL (74-99); Sodium 135 mmol/L (137-145); Total Bilirubin 0.6 mg/dL (0.2-1.3); Total Protein 8.1 g/dL (6.3-8.2)
[2019-06-10 15:05] LABS: Potassium 5.7 mmol/L (3.5-5.1)
[2019-06-10 15:06] LABS: Appearance,Urine Clear (Clear); Bacteria,Urine Rare /hpf; Bilirubin,Urine Negative (Negative); Blood,Urine Small (Negative); Color,Urine Light Yellow; Glucose,Urine (UA) Negative (Negative); Ketones,Urine Negative (Negative); Leukocyte Esterase,Urine Negative (Negative); Nitrite,Urine Negative (Negative); Protein,Urine Negative (Negative); RBC,Urine 2 /hpf (0-5); Specific Gravity,Urine 1.006 (1.001-1.035); Squamous Epithelial Cell,Urine 1 /hpf (0-4); Urobilinogen,Urine <2.0 mg/dL (<2.0); WBC,Urine 1 /hpf (0-5)
[2019-06-10] MEDS ORDERED: traMADol 50 MG STARTER PACK 3 TAB BTL PO STA (16:12)
--- NOTE | 2019-06-10 16:12 | ED ---
General Adult HPI - General Chief complaint: Abdominal Pain Stated complaint: abdominal pain Time Seen by Provider: 06/10/19 14:22 Source: patient, RN notes reviewed Mode of arrival: ambulatory Limitations: no limitations - History of Present Illness Initial comments: 63-year-old female with a past medical history of chronic and recurrent pancreatitis presents for epigastric pain. States feels like her pick her tetanus is coming back. States she was just discharged 2 days ago and is scheduled for an outpatient procedure with Dr. Pearson. States that the pain started again last night after she ran out of Ultram. States that she is able to eat and drink at home. Denies any vomiting.Patient has no other complaints at this time including shortness of breath, chest pain, headache, or visual changes. - Related Data Home Medications Medication Instructions Recorded Confirmed Albuterol Nebulized [Ventolin 2.5 mg INHALATION RT-QID PRN 08/31/16 06/10/19 Nebulized] Budesonide/Formoterol Fumarate 2 puff INHALATION RT-BID 05/31/19 06/10/19 [Symbicort 160-4.5 Mcg Inhaler] Estrogen,Con/M-Progest Acet 1 tab PO DAILY 05/31/19 06/10/19 [Prempro 0.3 mg-1.5 mg Tablet] Gabapentin [Neurontin] 400 mg PO QID 05/31/19 06/10/19 amLODIPine BESYLATE/BENAZEPRIL 1 cap PO DAILY 05/31/19 06/10/19 [Lotrel 2.5-10 MG] traMADol HCl [Ultram] 50 - 100 mg PO Q4H PRN 05/31/19 06/10/19 Allergies Allergy/AdvReac Type Severity Reaction Status Date / Time No Known Allergies Allergy Verified 06/10/19 14:28 Review of Systems ROS Statement: Those systems with pertinent positive or pertinent negative responses have been documented in the HPI. ROS Other: All systems not noted in ROS Statement are negative. Past Medical History Past Medical History: Chest Pain / Angina, COPD, CVA/TIA, GERD/Reflux, Hypertension, Osteoarthritis (OA), Rheumatoid Arthritis (RA) Additional Past Medical History / Comment(s): admitted to [facility] on 02/18/18 with c olitis/sepsis/R renal cyst. Other hx: Recurrent pancreatitis, bronchitis, TIA, anemia-unknown cause, migraines, ostoeporosis, past R femur fracture with surgery.past l2 compression fx, History of Any Multi-Drug Resistant Organisms: None Reported Past Surgical History: Appendectomy, Back Surgery, Cholecystectomy, Orthopedic Surgery, Tonsillectomy Additional Past Surgical History / Comment(s): Pancreatic stents-since removed, 6 back surgeries with 2 fusions, right oophorectomy due to ectopic , EGD/colonoscopy, right leg alice inserted d/t fracture, Past Anesthesia/Blood Transfusion Reactions: No Reported Reaction Additional Past Anesthesia/Blood Transfusion Reaction / Comment(s): Pt has received blood in past without reaction. Past Psychological History: No Psychological Hx Reported Smoking Status: Current every day smoker Past Alcohol Use History: None Reported Past Drug Use History: None Reported - Past Family History Father Family Medical History: Cancer, Liver Disease Additional Family Medical History / Comment(s): Father was an alcoholic. He from lung/ liver cancer. Mother Family Medical History: Cancer, CVA/TIA, Hypertension Additional Family Medical History / Comment(s): Mother had breast and colon cancer. She of liver cancer at the age of 78 yrs. General Exam Limitations: no limitations General appearance: alert, in no apparent distress Head exam: Present: atraumatic, normocephalic, normal inspection Eye exam: Present: normal appearance, PERRL, EOMI. Absent: scleral icterus, conjunctival injection, periorbital swelling ENT exam: Present: normal exam, mucous membranes moist Neck exam: Present: normal inspection, full ROM. Absent: tenderness, meningismus, lymphadenopathy Respiratory exam: Present: normal lung sounds bilaterally. Absent: respiratory distress, wheezes, rales, rhonchi, stridor Cardiovascular Exam: Present: regular rate, normal rhythm, normal heart sounds. Absent: systolic murmur, diastolic murmur, rubs, gallop, clicks GI/Abdominal exam: Present: soft, tenderness (Tenderness noted in the epigastric area with mild guarding present. No lower abdominal tenderness.), normal bowel sounds. Absent: distended, guarding, rebound, rigid Neurological exam: Present: alert Course Vital Signs 06/10/19 14:02 Temperature 98.3 F Pulse Rate 89 Respiratory 20 Rate Blood Pressure 144/89 O2 Sat by Pulse 100 Oximetry Medical Decision Making - Medical Decision Making 63-year-old female presents for abdominal pain. Patient has a history of recurrent pancreatitis. This feels exactly similar. Pain is epigastric in nature. Vitals are stable. CBC is unremarkable. CMP are normal as well. Mild hyperkalemia however this is a hemolyzed specimen. Lipase is 361. She was g iven Dilaudid and does feel much better. She is tolerating oral intake. At this time discussed inpatient versus outpatient management. We've decided to share decision-making to discharge home with Ultram and clear liquid diet. Patient will return if she has worsening symptoms. She will follow up on her outpatient EUS that is scheduled. - Lab Data Result diagrams: 06/10/19 14:43 06/10/19 14:43 Lab Results 06/10/19 06/10/19 06/10/19 Range/Units 14:43 14:43 14:43 WBC 9.7 (3.8-10.6) k/uL RBC 4.58 (3.80-5.40) m/uL Hgb 13.8 (11.4-16.0) gm/dL Hct 41.0 (34.0-46.0) % MCV 89.6 (80.0-100.0) fL MCH 30.1 (25.0-35.0) pg MCHC 33.6 (31.0-37.0) g/dL RDW 13.8 (11.5-15.5) % Plt Count 342 (150-450) k/uL Neutrophils % 48 % Lymphocytes % 37 % Monocytes % 6 % Eosinophils % 6 % Basophils % 2 % Neutrophils # 4.6 (1.3-7.7) k/uL Lymphocytes # 3.6 (1.0-4.8) k/uL Monocytes # 0.6 (0-1.0) k/uL Eosinophils # 0.5 (0-0.7) k/uL Basophils # 0.2 (0-0.2) k/uL Sodium 135 L (137-145) mmol/L Potassium 5.7 H (3.5-5.1) mmol/L Chloride 102 (98-107) mmol/L Carbon Dioxide 25 (22-30) mmol/L Anion Gap 8 mmol/L BUN 17 (7-17) mg/dL Creatinine 0.78 (0.52-1.04) mg/dL Est GFR (CKD-EPI)AfAm >90 (>60 ml/min/1.73 sqM) Est GFR (CKD-EPI)NonAf 82 (>60 ml/min/1.73 sqM) Glucose 123 H (74-99) mg/dL Calcium 9.9 (8.4-10.2) mg/dL Total Bilirubin 0.6 (0.2-1.3) mg/dL AST 29 (14-36) U/L ALT 18 (9-52) U/L Alkaline Phosphatase 106 (38-126) U/L Total Protein 8.1 (6.3-8.2) g/dL Albumin 4.6 (3.5-5.0) g/dL Amylase 61 (30-110) U/L Lipase 361 H (23-300) U/L Urine Color Light Yellow Urine Appearance Clear (Clear) Urine pH 6.0 (5.0-8.0) Ur Specific [place] 1.006 (1.001-1.035) Urine Protein Negative (Negative) Urine Glucose (UA) Negative (Negative) Urine Ketones Negative (Negative) Urine Blood Small H (Negative) Urine Nitrite Negative (Negative) Urine Bilirubin Negative (Negative) Urine Urobilinogen <2.0 (<2.0) mg/dL Ur Leukocyte Esterase Negative (Negative) Urine RBC 2 (0-5) /hpf Urine WBC 1 (0-5) /hpf Ur Squamous Epith Cells 1 (0-4) /hpf Urine Bacteria Rare H (None) /hpf Disposition Clinical Impression: Abdominal pain, Recurrent pancreatitis Disposition: HOME SELF-CARE Condition: Good Instructions (If sedation given, give patient instructions): Pancreatitis (ED), Clear Liquid Diet (ED) Additional Instructions: Please try clear liquid diet. Take Ultram as needed. Follow-up with primary care and GI in 1-2 days. Return to the emergency department if you have any worsening symptoms. Is patient prescribed a controlled substance at d/c from ED?: No Referrals: Isac Calvin MD [Primary Care Provider] - 1-2 days Time of Disposition: 16:09
== END 2019-06-10 16:30 | disposition home or self-care (01) ==
LOC: EC 13:54
DX: K86.1 Other chronic pancreatitis (principal); E87.5 Hyperkalemia; F17.200 Nicotine dependence, unspecified, uncomplicated; J44.9 Chronic obstructive pulmonary disease, unspecified; I25.2 Old myocardial infarction; K21.9 Gastro-esophageal reflux disease without esophagitis; I10 Essential (primary) hypertension; M19.90 Unspecified osteoarthritis, unspecified site; M81.0 Age-related osteoporosis without current pathological fracture; M06.9 Rheumatoid arthritis, unspecified; Z79.51 Long term (current) use of inhaled steroids; Z79.899 Other long term (current) drug therapy; Z86.73 Personal history of transient ischemic attack (TIA), and cerebral infarction without residual deficits; Z90.49 Acquired absence of other specified parts of digestive tract; Z98.890 Other specified postprocedural states; Z53.9 Procedure and treatment not carried out, unspecified reason
CPT/HCPCS: 99284; 96372; 36415; 80053; 82150; 83690; 85025; 81001; J1170; 99281

== ENCOUNTER 2019-06-13 17:35 | Emergency (ER) | payer BC ==
[2019-06-13] MEDS ORDERED: HYDROmorphone 1 MG/ML 1 ML SYRINGE IVP STA (18:26)
[2019-06-13] MEDS ORDERED: SODIUM CHLORIDE 0.9% 1,000 ML IV STA (18:26)
[2019-06-13] MEDS ORDERED: ONDANSETRON 4 MG/2 ML VIAL IVP STA (18:26)
--- NOTE | 2019-06-13 18:39 | ED ---
Abdominal Pain HPI - General Chief Complaint: Abdominal Pain Stated Complaint: ABD PAIN Time Seen by Provider: 06/13/19 18:22 Source: patient Mode of arrival: ambulatory Limitations: no limitations - History of Present Illness Initial Comments: 63-year-old female patient presents to the emergency department today for evaluation of upper abdominal pain and vomiting. Patient has history of chronic pancreatitis. Patient states that her symptoms seem consistent with a pancreatic flare. States she was discharged from the hospital a week ago after being admitted for pancreatitis. States that she has had abdominal pain since. The pain is in her midepigastric region and radiates through to her back. States her pain is worsening. States that whenever she tries to eat or drink she vomits. Patient states that she is out of pain medication at home. States she has been following up with Dr. Clark outpatient, they want her to be evaluated at [facility]. She denies any fever or chills. Denies chest pain or shortness of breath. Denies any hematochezia, melena, or hematemesis. Patient denies any recent rash, back pain, numbness, tingling, dizziness, weakness, hematuria, dysuria, urinary urgency, urinary frequency, headache, visual changes, or any other complaints. - Related Data Home Medications Medication Instructions Recorded Confirmed Albuterol Nebulized [Ventolin 2.5 mg INHALATION RT-QID PRN 08/31/16 06/10/19 Nebulized] Budesonide/Formoterol Fumarate 2 puff INHALATION RT-BID 05/31/19 06/10/19 [Symbicort 160-4.5 Mcg Inhaler] Estrogen,Con/M-Progest Acet 1 tab PO DAILY 05/31/19 06/10/19 [Prempro 0.3 mg-1.5 mg Tablet] Gabapentin [Neurontin] 400 mg PO QID 05/31/19 06/10/19 amLODIPine BESYLATE/BENAZEPRIL 1 cap PO DAILY 05/31/19 06/10/19 [Lotrel 2.5-10 MG] traMADol HCl [Ultram] 50 - 100 mg PO Q4H PRN 05/31/19 06/10/19 Previous Rx's Medication Instructions Recorded Ondansetron [Zofran ODT] 4 mg PO Q8HR PRN #20 tab 06/13/19 Allergies Allergy/AdvReac Type Severity Reaction Status Date / Time No Known Allergies Allergy Verified 06/13/19 17:52 Review of Systems ROS Statement: Those systems with pertinent positive or pertinent negative responses have been documented in the HPI. ROS Other: All systems not noted in ROS Statement are negative. Past Medical History Past Medical History: Chest Pain / Angina, COPD, CVA/TIA, GERD/Reflux, Hypertension, Osteoarthritis (OA), Rheumatoid Arthritis (RA) Additional Past Medical History / Comment(s): admitted to [facility] on 02/18/18 with colitis/sepsis/R renal cyst. Other hx: Recurrent pancreatitis, bronchitis, TIA , anemia-unknown cause, migraines, ostoeporosis, past R femur fracture with surgery.past l2 compression fx, History of Any Multi-Drug Resistant Organisms: None Reported Past Surgical History: Appendectomy, Back Surgery, Cholecystectomy, Orthopedic S urgery, Tonsillectomy Additional Past Surgical History / Comment(s): Pancreatic stents-since removed, 6 back surgeries with 2 fusions, right oophorectomy due to ectopic , EGD/colonoscopy, right leg alice inserted d/t fracture, Past Anesthesia/Blood Transfusion Reactions: No Reported Reaction Additional Past Anesthesia/Blood Transfusion Reaction / Comment(s): Pt has received blood in past without reaction. Past Psychological History: No Psychological Hx Reported Smoking Status: Current every day smoker Past Alcohol Use History: None Reported Past Drug Use History: None Reported - Past Family History Father Family Medical History: Cancer, Liver Disease Additional Family Medical History / Comment(s): Father was an alcoholic. He d ied from lung/ liver cancer. Mother Family Medical History: Cancer, CVA/TIA, Hypertension Additional Family Medical History / Comment(s): Mother had breast and colon cancer. She of liver cancer at the age of 78 yrs. General Exam Limitations: no limitations General appearance: alert, in no apparent distress, other (Physical well- developed, well-nourished adult female patient in no acute distress. Vital signs upon presentation are temperature 98.3F, pulse 79, respirations 20, blood pressure 131/69, pulse ox 99% on room air.) Eye exam: Present: normal appearance, PERRL, EOMI. Absent: scleral icterus, conjunctival injection, periorbital swelling ENT exam: Present: normal exam, normal oropharynx, mucous membranes moist Respiratory exam: Present: normal lung sounds bilaterally. Absent: respiratory distress, wheezes, rales, rhonchi, stridor Cardiovascular Exam: Present: regular rate, normal rhythm, normal heart sounds. Absent: systolic murmur, diastolic murmur, rubs, gallop, clicks GI/Abdominal exam: Present: soft, tenderness (Midepigastric tenderness), normal bowel sounds. Absent: distended, guarding, rebound, rigid Neurological exam: Present: alert, oriented X3, CN II-XII intact Psychiatric exam: Present: normal affect, normal mood Skin exam: Present: warm, dry, intact, normal color. Absent: rash Course Vital Signs 06/13/19 06/13/19 17:51 20:14 Temperature 98.3 F 98.4 F Pulse Rate 79 71 Respiratory 20 18 Rate Blood Pressure 131/69 128/97 O2 Sat by Pulse 99 97 Oximetry Medical Decision Making - Medical Decision Making 63-year-old female patient with history of chronic pancreatitis presents to the emergency department today for evaluation of upper abdominal pain and vomiting. Physical examination did reveal some midepigastric tenderness. Vital signs within normal ranges. She is afebrile. Labs reviewed and were unremarkable. Lipase is normal. She was given IV fluids, pain medication, nausea medication here in the emergency department. Upon reevaluation she does report improve symptoms. She'll be discharged home at this time to follow-up with her primary care physician as well as her director of counseling. She was given starter packs for pain and nausea relief. I did send Zofran to her pharmacy. Return para meters were discussed in detail. She verbalizes understanding and agrees with this plan. - Lab Data Result diagrams: 06/13/19 18:30 06/13/19 18:30 Lab Results 06/13/19 06/13/19 06/13/19 Range/Units 18:30 18:30 18:30 WBC 11.1 H (3.8-10.6) k/uL RBC 4.55 (3.80-5.40) m/uL Hgb 13.5 (11.4-16.0) gm/dL Hct 39.9 (34.0-46.0) % MCV 87.7 (80.0-100.0) fL MCH 29.7 (25.0-35.0) pg MCHC 33.8 (31.0-37.0) g/dL RDW 13.5 (11.5-15.5) % Plt Count 395 (150-450) k/uL Neutrophils % 52 % Lymphocytes % 34 % Monocytes % 6 % Eosinophils % 5 % Basophils % 2 % Neutrophils # 5.8 (1.3-7.7) k/uL Lymphocytes # 3.8 (1.0-4.8) k/uL Monocytes # 0.7 (0-1.0) k/uL Eosinophils # 0.5 (0-0.7) k/uL Basophils # 0.2 (0-0.2) k/uL Sodium 135 L (137-145) mmol/L Potassium 4.3 (3.5-5.1) mmol/L Chloride 98 (98-107) mmol/L Carbon Dioxide 24 (22-30) mmol/L Anion Gap 13 mmol/L BUN 20 H (7-17) mg/dL Creatinine 1.03 (0.52-1.04) mg/dL Est GFR (CKD-EPI)AfAm 67 (>60 ml/min/1.73 sqM) Est GFR (CKD-EPI)NonAf 58 (>60 ml/min/1.73 sqM) Glucose 102 H (74-99) mg/dL Calcium 10.1 (8.4-10.2) mg/dL Total Bilirubin 0.2 (0.2-1.3) mg/dL AST 25 (14-36) U/L ALT 21 (9-52) U/L Alkaline Phosphatase 110 (38-126) U/L Troponin I <0.012 (0.000-0.034) ng/mL Total Protein 8.1 (6.3-8.2) g/dL Albumin 4.8 (3.5-5.0) g/dL Amylase 55 (30-110) U/L Lipase 223 (23-300) U/L Urine Color Urine Appearance (Clear) Urine pH (5.0-8.0) Ur Specific [place] (1.001-1.035) Urine Protein (Negative) Urine Glucose (UA) (Negative) Urine Ketones (Negative) Urine Blood (Negative) Urine Nitrite (Negative) Urine Bilirubin (Negative) Urine Urobilinogen (<2.0) mg/dL Ur Leukocyte Esterase (Negative) Urine RBC (0-5) /hpf Urine WBC (0-5) /hpf Ur Squamous Epith Cells (0-4) /hpf Urine Mucus (None) /hpf 06/13/19 Range/Units 18:30 WBC (3.8-10.6) k/uL RBC (3.80-5.40) m/uL Hgb (11.4-16.0) gm/dL Hct (34.0-46.0) % MCV (80.0-100.0) fL MCH (25.0-35.0) pg MCHC (31.0-37.0) g/dL RDW (11.5-15.5) % Plt Count (150-450) k/uL Neutrophils % % Lymphocytes % % Monocytes % % Eosinophils % % Basophils % % Neutrophils # (1.3-7.7) k/uL Lymphocytes # (1.0-4.8) k/uL Monocytes # (0-1.0) k/uL Eosinophils # (0-0.7) k/uL Basophils # (0-0.2) k/uL Sodium (137-145) mmol/L Potassium (3.5-5.1) mmol/L Chloride (98-107) mmol/L Carbon Dioxide (22-30) mmol/L Anion Gap mmol/L BUN (7-17) mg/dL Creatinine (0.52-1.04) mg/dL Est GFR (CKD-EPI)AfAm (>60 ml/min/1.73 sqM) Est GFR (CKD-EPI)NonAf (>60 ml/min/1.73 sqM) Glucose (74-99) mg/dL Calcium (8.4-10.2) mg/dL Total Bilirubin (0.2-1.3) mg/dL AST (14-36) U/L ALT (9-52) U/L Alkaline Phosphatase (38-126) U/L Troponin I (0.000-0.034) ng/mL Total Protein (6.3-8.2) g/dL Albumin (3.5-5.0) g/dL Amylase (30-110) U/L Lipase (23-300) U/L Urine Color Light Yellow Urine Appearance Clear (Clear) Urine pH 5.0 (5.0-8.0) Ur Specific [place] 1.005 (1.001-1.035) Urine Protein Negative (Negative) Urine Glucose (UA) Negative (Negative) Urine Ketones Negative (Negative) Urine Blood Large H (Negative) Urine Nitrite Negative (Negative) Urine Bilirubin Negative (Negative) Urine Urobilinogen <2.0 (<2.0) mg/dL Ur Leukocyte Esterase Negative (Negative) Urine RBC 10 H (0-5) /hpf Urine WBC 1 (0-5) /hpf Ur Squamous Epith Cells 1 (0-4) /hpf Urine Mucus Rare H (None) /hpf - EKG Data -: EKG Interpreted by Ms EKG Comments: EKG obtained in 192 shows normal sinus rhythm with prolonged QT interval. Ventricular rate is 63, VA interval 186, QRS duration 64, QTC 498, QTC 509. No evidence of ST elevation or depression. - Radiology Data Radiology results: report reviewed, image reviewed KUB x-ray was obtained. Report was reviewed in its entirety. Impression by Dr. Stockton shows nonacute abdomen. No change. Disposition Clinical Impression: Abdominal pain Disposition: HOME SELF-CARE Condition: Good Instructions (If sedation given, give patient instructions): Abdominal Pain (ED) Additional Instructions: Start with clear liquid diet and advance as tolerated. Take medication sparingly for symptom relief. Follow-up with your primary care physician or director of counseling for further evaluation as soon as possible. Return to the emergency department immediately for any new, worsening, or concerning symptoms. Prescriptions: Ondansetron [Zofran ODT] 4 mg PO Q8HR PRN #20 tab PRN Reason: Nausea Is patient prescribed a controlled substance at d/c from ED?: No Referrals: Isac Calvin MD [Primary Care Provider] - 1-2 days Zoya Clark MD [STAFF PHYSICIAN] - 1-2 days Time of Disposition: 20:01
[2019-06-13 19:14] LABS: Basophils # (A) 0.2 k/uL (0-0.2); Basophils % (A) 2 %; Eosinophils # (A) 0.5 k/uL (0-0.7); Eosinophils % (A) 5 %; HCT 39.9 % (34.0-46.0); HGB 13.5 gm/dL (11.4-16.0); Lymphocytes # (A) 3.8 k/uL (1.0-4.8); Lymphocytes % (A) 34 %; MCH 29.7 pg (25.0-35.0); MCHC 33.8 g/dL (31.0-37.0); MCV 87.7 fL (80.0-100.0); Mean Platelet Volume 6.1; Monocytes # (A) 0.7 k/uL (0-1.0); Monocytes % (A) 6 %; Neutrophils # (A) 5.8 k/uL (1.3-7.7); Neutrophils % (A) 52 %; Platelet Count 395 k/uL (150-450); RBC 4.55 m/uL (3.80-5.40); RDW 13.5 % (11.5-15.5); WBC 11.1 k/uL (3.8-10.6)
[2019-06-13 19:15] LABS: Appearance,Urine Clear (Clear); Bilirubin,Urine Negative (Negative); Blood,Urine Large (Negative); Color,Urine Light Yellow; Glucose,Urine (UA) Negative (Negative); Ketones,Urine Negative (Negative); Leukocyte Esterase,Urine Negative (Negative); Mucus,Urine Rare /hpf; Nitrite,Urine Negative (Negative); Protein,Urine Negative (Negative); RBC,Urine 10 /hpf (0-5); Specific Gravity,Urine 1.005 (1.001-1.035); Squamous Epithelial Cell,Urine 1 /hpf (0-4); Urobilinogen,Urine <2.0 mg/dL (<2.0); WBC,Urine 1 /hpf (0-5)
[2019-06-13 19:19] LABS: Albumin 4.8 g/dL (3.5-5.0); Calcium 10.1 mg/dL (8.4-10.2); Potassium 4.3 mmol/L (3.5-5.1); Total Bilirubin 0.2 mg/dL (0.2-1.3); Total Protein 8.1 g/dL (6.3-8.2)
--- NOTE | 2019-06-13 19:32 | XR ---
EXAMINATION TYPE: XR KUB DATE OF EXAM: 06/13/2019 COMPARISON: September 03, 2018 HISTORY: Abdominal pain TECHNIQUE: 2 views upright FINDINGS: There is no sign of intestinal obstruction or pneumoperitoneum. Fecal pattern is normal. Th ere are clips from cholecystectomy. There is multilevel lumbar spine fusion surgery. Lung bases are c lear. There are no pathologic calcifications over the kidneys. IMPRESSION: Nonacute abdomen. No change.
[2019-06-13] MEDS ORDERED: ONDANSETRON 4 MG ODT STARTER PACK 2 TAB BTL PO STA (20:01)
[2019-06-13] MEDS ORDERED: traMADol 50 MG STARTER PACK 3 TAB BTL PO STA (20:01)
[2019-06-13 20:15] VITALS: BP 128/97; PULSE 71; RESP 18; TEMP 98.4
== END 2019-06-13 20:15 | disposition home or self-care (01) ==
LOC: EC 17:35
DX: R10.10 Upper abdominal pain, unspecified (principal); R11.2 Nausea with vomiting, unspecified; J44.9 Chronic obstructive pulmonary disease, unspecified; I10 Essential (primary) hypertension; F17.200 Nicotine dependence, unspecified, uncomplicated; Z79.51 Long term (current) use of inhaled steroids; Z79.899 Other long term (current) drug therapy; Z86.73 Personal history of transient ischemic attack (TIA), and cerebral infarction without residual deficits; Z90.49 Acquired absence of other specified parts of digestive tract; Z90.89 Acquired absence of other organs
CPT/HCPCS: 36415; 93005; 80053; 82150; 83690; 84484; 85025; 81001; 74018; 99284; 96374; 96375; 96361; J2405; J1170; S0119

== ENCOUNTER 2019-08-29 16:41 | Emergency (ER) | payer BC ==
[2019-08-29 16:52] VITALS: TEMP 98.7
[2019-08-29] MEDS ORDERED: PANTOPRAZOLE 40 MG/10 ML VIAL IVP STA (17:12)
[2019-08-29] MEDS ORDERED: ONDANSETRON 4 MG/2 ML VIAL IVP STA (17:12)
[2019-08-29] MEDS ORDERED: SODIUM CHLORIDE 0.9% 1,000 ML IV STA (17:12)
[2019-08-29] MEDS ORDERED: KETOROLAC 30 MG/ML 1 ML VIAL IVP STA (17:15)
--- NOTE | 2019-08-29 17:15 | ED ---
Abdominal Pain HPI - General Chief Complaint: Abdominal Pain Stated Complaint: abd pain Time Seen by Provider: 08/29/19 17:01 Source: patient Mode of arrival: wheelchair Limitations: no limitations - History of Present Illness Initial Comments: Patient is 63-year-old female with history of pancreatitis presenting to emergency Department with a chief complaint of abdominal pain. She reports sudden onset of pain yesterday with multiple episodes of nausea and nonbilious, nonbloody vomiting. Patient reports the pain is not related to oral intake. She states the pain is constant and sharp in nature. Denies any constipation or diarrhea. Denies any night sweats fevers or chills. Denies any aggravating or alleviating factors. Denies increased urgency frequency or dysuria. Denies vaginal discharge or bleeding. Denies chest pain shortness of breath or cough. Denies taking medication to alleviate the symptoms. - Related Data Home Medications Medication Instructions Recorded Confirmed Albuterol Nebulized [Ventolin 2.5 mg INHALATION RT-QID PRN 08/31/16 06/10/19 Nebulized] Budesonide/Formoterol Fumarate 2 puff INHALATION RT-BID 05/31/19 06/10/19 [Symbicort 160-4.5 Mcg Inhaler] Estrogen,Con/M-Progest Acet 1 tab PO DAILY 05/31/19 06/10/19 [Prempro 0.3 mg-1.5 mg Tablet] Gabapentin [Neurontin] 400 mg PO QID 05/31/19 06/10/19 amLODIPine BESYLATE/BENAZEPRIL 1 cap PO DAILY 05/31/19 06/10/19 [Lotrel 2.5-10 MG] traMADol HCl [Ultram] 50 - 100 mg PO Q4H PRN 05/31/19 06/10/19 Previous Rx's Medication Instructions Recorded Ondansetron [Zofran ODT] 4 mg PO Q8HR PRN #20 tab 06/13/19 Allergies Allergy/AdvReac Type Severity Reaction Status Date / Time No Known Allergies Allergy Verified 08/29/19 16:50 Review of Systems ROS Statement: Those systems with pertinent positive or pertinent negative responses have been documented in the HPI. ROS Other: All systems not noted in ROS Statement are negative. Past Medical History Past Medical History: Chest Pain / Angina, COPD, CVA/TIA, GERD/Reflux, Hypertens ion, Osteoarthritis (OA), Rheumatoid Arthritis (RA) Additional Past Medical History / Comment(s): admitted to [facility] on 02/18/18 with colitis/sepsis/R renal cyst. Other hx: Recurrent pancreatitis, bronchitis, TIA, anemia-unknown cause, migraines, ostoeporosis, past R femur fracture with surgery.past l2 compression fx, History of Any Multi-Drug Resistant Organisms: None Reported Past Surgical History: Appendectomy, Back Surgery, Cholecystectomy, Orthopedic Surgery, Tonsillectomy Additional Past Surgical History / Comment(s): Pancreatic stents-since removed, 6 back surgeries with 2 fusions, right oophorectomy due to ectopic , EGD/colonoscopy, right leg alice inserted d/t fracture, Past Anesthesia/Blood Transfusion Reactions: No Reported Reaction Additional Past Anesthesia/Blood Transfusion Reaction / Comment(s): Pt has received blood in past without reaction. Past Psychological History: No Psychological Hx Reported Smoking Status: Current every day smoker Past Alcohol Use History: None Reported Past Drug Use History: None Reported - Past Family History Father Family Medical History: Cancer, Liver Disease Additional Family Medical History / Comment(s): Father was an alcoholic. He from lung/ liver cancer. Mother Family Medical History: Cancer, CVA/TIA, Hypertension Additional Family Medical History / Comment(s): Mother had breast and colon cancer. She of liver cancer at the age of 78 yrs. General Exam Limitations: no limitations General appearance: alert, in no apparent distress Head exam: Present: atraumatic, normocephalic, normal inspection Eye exam: Present: normal appearance, PERRL, EOMI Pupils: Present: normal accommodation ENT exam: Present: normal exam, normal oropharynx, mucous membranes moist, TM's normal bilaterally, normal external ear exam Neck exam: Present: normal inspection, full ROM Respiratory exam: Present: normal lung sounds bilaterally Cardiovascular Exam: Present: regular rate, normal rhythm, normal heart sounds GI/Abdominal exam: Present: soft, tenderness (Epigastric and right upper quadrant). Absent: distended, guarding, rebound, rigid Extremities exam: Present: normal inspection, full ROM Back exam: Present: normal inspection, full ROM Neurological exam: Present: alert, oriented X3 Psychiatric exam: Present: normal affect, normal mood Skin exam: Present: warm, dry, intact, normal color Course Vital Signs 08/29/19 08/29/19 16:50 18:10 Temperature 98.7 F Pulse Rate 89 67 Respiratory 18 18 Rate Blood Pressure 134/79 142/80 O2 Sat by Pulse 98 96 Oximetry Medical Decision Making - Medical Decision Making Patient is a 63-year-old female with history of recurrent pancreatitis presenting to emergency Department with a chief complaint of abdominal pain. Patient reports epigastric abdominal pain not related to by mouth intake. Does report nausea with multiple episodes of nonbilious nonbloody vomiting. There is no white count. CMP shows no elevation of lipase. Patient given fluids, antiemetics and analgesia. UA shows elevation in ketones suggesting dehydration. Patient given fluids for rehydration. No signs of a urinary tract infection. Patient was to follow with a GI specialist. Strict return parameters were thoroughly discussed the patient is worsening and agreeable. Case discussed with physician. - Lab Data Result diagrams: 08/29/19 17:23 08/29/19 17:23 Lab Results 08/29/19 08/29/19 08/29/19 Range/Units 17:23 17:23 18:45 WBC 7.3 (3.8-10.6) k/uL RBC 4.92 (3.80-5.40) m/uL Hgb 14.5 (11.4-16.0) gm/dL Hct 43.3 (34.0-46.0) % MCV 88.1 (80.0-100.0) fL MCH 29.4 (25.0-35.0) pg MCHC 33.4 (31.0-37.0) g/dL RDW 12.8 (11.5-15.5) % Plt Count 340 (150-450) k/uL Neutrophils % 63 % Lymphocytes % 29 % Monocytes % 5 % Eosinophils % 1 % Basophils % 1 % Neutrophils # 4.6 (1.3-7.7) k/uL Lymphocytes # 2.1 (1.0-4.8) k/uL Monocytes # 0.4 (0-1.0) k/uL Eosinophils # 0.1 (0-0.7) k/uL Basophils # 0.0 (0-0.2) k/uL Sodium 139 (137-145) mmol/L Potassium 4.2 (3.5-5.1) mmol/L Chloride 109 H (98-107) mmol/L Carbon Dioxide 20 L (22-30) mmol/L Anion Gap 10 mmol/L BUN 18 H (7-17) mg/dL Creatinine 1.19 H (0.52-1.04) mg/dL Est GFR (CKD-EPI)AfAm 56 (>60 ml/min/1.73 sqM) Est GFR (CKD-EPI)NonAf 49 (>60 ml/min/1.73 sqM) Glucose 136 H (74-99) mg/dL Calcium 10.0 (8.4-10.2) mg/dL Total Bilirubin 0.4 (0.2-1.3) mg/dL AST 24 (14-36) U/L ALT 18 (4-34) U/L Alkaline Phosphatase 98 (38-126) U/L Total Protein 7.8 (6.3-8.2) g/dL Albumin 4.7 (3.5-5.0) g/dL Amylase <30 L (30-110) U/L Lipase 72 (23-300) U/L Urine Color Yellow Urine Appearance Cloudy H (Clear) Urine pH 6.5 (5.0-8.0) Ur Specific [place] 1.020 (1.001-1.035) Urine Protein 1+ H (Negative) Urine Glucose (UA) Negative (Negative) Urine Ketones 1+ H (Negative) Urine Blood Small H (Negative) Urine Nitrite Negative (Negative) Urine Bilirubin Negative (Negative) Urine Urobilinogen 3.0 (<2.0) mg/dL Ur Leukocyte Esterase Moderate H (Negative) Urine RBC 8 H (0-5) /hpf Urine WBC 7 H (0-5) /hpf Ur Squamous Epith Cells 36 H (0-4) /hpf Amorphous Sediment Rare H (None) /hpf Urine Bacteria Moderate H (None) /hpf Hyaline Casts 17 H (0-2) /lpf Urine Mucus Moderate H (None) /hpf Disposition Clinical Impression: Epigastric abdominal pain Disposition: HOME SELF-CARE Condition: Stable Instructions (If sedation given, give patient instructions): Abdominal Pain (ED) Additional Instructions: Please follow up with a GI specialist. Please return to emergency department if symptoms worsen. Is patient prescribed a controlled substance at d/c from ED?: No Referrals: Isac Calvin MD [Primary Care Provider] - 1-2 days Zoya Clark MD [STAFF PHYSICIAN] - 1-2 days Time of Disposition: 19:20
[2019-08-29 17:36] LABS: Basophils % (A) 1 %; Eosinophils # (A) 0.1 k/uL (0-0.7); Eosinophils % (A) 1 %; HCT 43.3 % (34.0-46.0); HGB 14.5 gm/dL (11.4-16.0); Lymphocytes # (A) 2.1 k/uL (1.0-4.8); Lymphocytes % (A) 29 %; MCH 29.4 pg (25.0-35.0); MCHC 33.4 g/dL (31.0-37.0); MCV 88.1 fL (80.0-100.0); Mean Platelet Volume 7.2; Monocytes # (A) 0.4 k/uL (0-1.0); Monocytes % (A) 5 %; Neutrophils # (A) 4.6 k/uL (1.3-7.7); Neutrophils % (A) 63 %; Platelet Count 340 k/uL (150-450); RBC 4.92 m/uL (3.80-5.40); RDW 12.8 % (11.5-15.5); WBC 7.3 k/uL (3.8-10.6)
[2019-08-29 17:50] LABS: ALT 18 U/L (4-34); AST 24 U/L (14-36); African American GFR (CKD) 56 (>60 ml/min/1.73 sqM); Albumin 4.7 g/dL (3.5-5.0); Alkaline Phosphatase 98 U/L (38-126); Amylase <30 U/L (30-110); Anion Gap 10 mmol/L; Blood Urea Nitrogen 18 mg/dL (7-17); Carbon Dioxide 20 mmol/L (22-30); Chloride 109 mmol/L (98-107); Glucose 136 mg/dL (74-99); Non-African American GFR(CKD) 49 (>60 ml/min/1.73 sqM); Potassium 4.2 mmol/L (3.5-5.1); Sodium 139 mmol/L (137-145); Total Bilirubin 0.4 mg/dL (0.2-1.3); Total Protein 7.8 g/dL (6.3-8.2)
[2019-08-29] MEDS ORDERED: HYDROmorphone 0.5 MG/0.5 ML SYRINGE IVP STA (17:50)
[2019-08-29 19:06] LABS: Amorphous Sediment,Urine Rare /hpf; Appearance,Urine Cloudy (Clear); Bacteria,Urine Moderate /hpf; Bilirubin,Urine Negative (Negative); Blood,Urine Small (Negative); Color,Urine Yellow; Glucose,Urine (UA) Negative (Negative); Hyaline Casts,Urine 17 /lpf (0-2); Ketones,Urine 1+ (Negative); Leukocyte Esterase,Urine Moderate (Negative); Mucus,Urine Moderate /hpf; Nitrite,Urine Negative (Negative); PH, Urine 6.5 (5.0-8.0); Protein,Urine 1+ (Negative); RBC,Urine 8 /hpf (0-5); Squamous Epithelial Cell,Urine 36 /hpf (0-4); WBC,Urine 7 /hpf (0-5)
[2019-08-29] MEDS ORDERED: Acetaminophen-Codeine 300-30mg TAB PO STA (19:19)
[2019-08-29 19:45] VITALS: BP 157/86; PULSE 66; RESP 16
== END 2019-08-29 19:48 | disposition home or self-care (01) ==
LOC: EC 16:41
DX: R10.13 Epigastric pain (principal); R82.4 Acetonuria; R11.2 Nausea with vomiting, unspecified; J44.9 Chronic obstructive pulmonary disease, unspecified; I10 Essential (primary) hypertension; M19.90 Unspecified osteoarthritis, unspecified site; M06.9 Rheumatoid arthritis, unspecified; F17.200 Nicotine dependence, unspecified, uncomplicated; Z79.51 Long term (current) use of inhaled steroids; Z79.899 Other long term (current) drug therapy; Z79.890 Hormone replacement therapy; Z87.19 Personal history of other diseases of the digestive system; Z98.1 Arthrodesis status; Z80.0 Family history of malignant neoplasm of digestive organs; Z53.20 Procedure and treatment not carried out because of patient's decision for unspecified reasons
CPT/HCPCS: 99284; 96374; 96375 ×2; 96361; 36415; 80053; 82150; 83690; 85025; 81001; 87086; J2405; C9113; J1170

== ENCOUNTER 2019-09-08 13:24 | Emergency (ER) | payer BC ==
[2019-09-08] MEDS ORDERED: SODIUM CHLORIDE 0.9% 1,000 ML IV STA (13:41)
[2019-09-08] MEDS ORDERED: MORPHINE SULFATE 4 MG/ML SYRINGE IV STA (13:41)
[2019-09-08] MEDS ORDERED: ONDANSETRON 4 MG/2 ML VIAL IVP STA (13:55)
[2019-09-08 14:18] VITALS: RESP 18
[2019-09-08 14:24] LABS: Basophils % (A) 0 %; Eosinophils # (A) 0.1 k/uL (0-0.7); Eosinophils % (A) 1 %; HCT 43.5 % (34.0-46.0); HGB 14.1 gm/dL (11.4-16.0); Lymphocytes # (A) 1.2 k/uL (1.0-4.8); Lymphocytes % (A) 14 %; MCH 28.5 pg (25.0-35.0); MCHC 32.3 g/dL (31.0-37.0); MCV 88.4 fL (80.0-100.0); Monocytes # (A) 0.3 k/uL (0-1.0); Monocytes % (A) 4 %; Neutrophils # (A) 7.2 k/uL (1.3-7.7); Neutrophils % (A) 81 %; Platelet Count 363 k/uL (150-450); RBC 4.93 m/uL (3.80-5.40); RDW 13.1 % (11.5-15.5); WBC 8.9 k/uL (3.8-10.6)
[2019-09-08 14:39] LABS: ALT 18 U/L (4-34); AST 31 U/L (14-36); African American GFR (CKD) >90 (>60 ml/min/1.73 sqM); Albumin 4.4 g/dL (3.5-5.0); Alkaline Phosphatase 100 U/L (38-126); Amylase 32 U/L (30-110); Anion Gap 11 mmol/L; Blood Urea Nitrogen 17 mg/dL (7-17); Calcium 9.4 mg/dL (8.4-10.2); Carbon Dioxide 22 mmol/L (22-30); Chloride 106 mmol/L (98-107); Glucose 166 mg/dL (74-99); Non-African American GFR(CKD) 82 (>60 ml/min/1.73 sqM); Potassium 3.7 mmol/L (3.5-5.1); Sodium 139 mmol/L (137-145); Total Bilirubin 0.4 mg/dL (0.2-1.3); Total Protein 7.5 g/dL (6.3-8.2)
--- NOTE | 2019-09-08 14:48 | XR ---
EXAMINATION TYPE: XR abdomen 2V DATE OF EXAM: 09/08/2019 2:42 PM CLINICAL HISTORY: Abdominal pain, vomiting, and chronic pancreatitis. TECHNIQUE: Upright and supine images of the abdomen were obtained. COMPARISON: 06/13/2019. FINDINGS: No pneumoperitoneum is seen. Lumbar fusion postsurgical changes, dextroscoliosis, and mild degenerative disc disease are seen with diffuse osseous demineralization and postsurgical changes of the right proximal femur partially visualized. Cholecystectomy clips are seen. Lung bases are well ae rated. Osseous structures are grossly intact. No dilated large or small bowel. Stool is noted within the rectum. Calcification in the pelvis is similar to the prior of 06/13/2019. Density overlying the right L5 transverse processes also unchanged from the prior and may relate to a phlebolith. IMPRESSION: Nonobstructive bowel gas pattern. No evidence of pneumoperitoneum.
[2019-09-08] MEDS ORDERED: METOCLOPRAMIDE 5 MG/ML 2 ML VIAL IVP STA (15:20)
[2019-09-08] MEDS ORDERED: MAG HYDROX/AL HYDROX/SIMETH 30 ML, HYOSCYAMINE ELIXIR 10 ML, LIDOCAINE VISCOUS 2% 10 ML PO STA ×3 (15:24)
[2019-09-08] MEDS ORDERED: MORPHINE SULFATE 2 MG/ML SYRINGE IVP STA ×2 (15:25→16:51)
[2019-09-08] MEDS ORDERED: FAMOTIDINE 20 MG/2 ML VIAL IV STA (15:25)
[2019-09-08 16:57] VITALS: BP 151/87; PULSE 80; TEMP 97.8
--- NOTE | 2019-09-08 17:03 | ED ---
Abdominal Pain HPI - General Chief Complaint: Abdominal Pain Stated Complaint: abd pain, vomiting Time Seen by Provider: 09/08/19 13:38 Source: patient Mode of arrival: ambulatory Limitations: no limitations - History of Present Illness Initial Comments: This 63-year-old white female presents complaining of some midepigastric abdominal pain. She states that his been fairly severe over the past 3-4 days. She's had multiple episodes of nausea and vomiting states that she is not able to keep medications down very well. She's been unable to eat or drink much in the last day. She does have a long history of pancreatitis for the last 10-15 years. This is been investigated thoroughly and she is unsure of the cause of the pancreatitis. She does not drink alcohol. This feels very similar to her previous pancreatitis attacks. She's been taking Zofran at home as well as [place] but unable to keep the [place] down due to vomiting. She denies any fevers or chills. His been occasional episodes of diarrhea. She denies any blood in her vomit or stool. She denies any other complaints or modifying factors. - Related Data Home Medications Medication Instructions Recorded Confirmed Estrogen,Con/M-Progest Acet 1 tab PO DAILY 05/31/19 09/08/19 [Prempro 0.3 mg-1.5 mg Tablet] amLODIPine BESYLATE/BENAZEPRIL 1 cap PO DAILY 05/31/19 09/08/19 [Lotrel 2.5-10 MG] traMADol HCl [Ultram] 50 - 100 mg PO TID 05/31/19 09/08/19 Atorvastatin [Lipitor] 40 mg PO HS 09/08/19 09/08/19 Diphenox-Atrop 2.5-0.025 mg 1 tab PO QID PRN 09/08/19 09/08/19 [Lomotil] Gabapentin 800 mg PO QID 09/08/19 09/08/19 HYDROcodone/APAP 7.5-325MG [[place] 1 tab PO BID 09/08/19 09/08/19 7.5-325] Omeprazole 20 mg PO DAILY 09/08/19 09/08/19 metFORMIN HCL [Glucophage] 500 mg PO DAILY 09/08/19 09/08/19 Previous Rx's Medication Instructions Recorded Promethazine Suppository 25 mg RECTAL QID PRN #20 supp 09/08/19 [Phenergan] Allergies Allergy/AdvReac Type Severity Reaction Status Date / Time No Known Allergies Allergy Verified 09/08/19 15:42 Review of Systems ROS Statement: Those systems with pertinent positive or pertinent negative responses have been documented in the HPI. ROS Other: All systems not noted in ROS Statement are negative. Past Medical History Past Medical History: Chest Pain / Angina, COPD, CVA/TIA, GERD/Reflux, Hypertension, Osteoarthritis (OA), Rheumatoid Arthritis (RA) Additional Past Medical History / Comment(s): admitted to [facility] on 02/18/18 with colitis/sepsis/R renal cyst. Other hx: Recurrent pancreatitis, bronchitis, TIA, anemia-unknown cause, migraines, ostoeporosis, past R femur fracture with surgery.past l2 compression fx, History of Any Multi-Drug Resistant Organisms: None Reported Past Surgical History: Appendectomy, Back Surgery, Cholecystectomy, Orthopedic Surgery, Tonsillectomy Additional Past Surgical History / Comment(s): Pancreatic stents-since removed, 6 back surgeries with 2 fusions, right oophorectomy due to ectopic , EGD/colonoscopy, right leg alice inserted d/t fracture, Past Anesthesia/Blood Transfusion Reactions: No Reported Reaction Additional Past Anesthesia/Blood Transfusion Reaction / Comment(s): Pt has re ceived blood in past without reaction. Past Psychological History: No Psychological Hx Reported Smoking Status: Current every day smoker Past Alcohol Use History: None Reported Past Drug Use History: None Reported - Past Family History Father Family Medical History: Cancer, Liver Disease Additional Family Medical History / Comment(s): Father was an alcoholic. He from lung/ liver cancer. Mother Family Medical History: Cancer, CVA/TIA, Hypertension Additional Family Medical History / Comment(s): Mother had breast and colon cancer. She of liver cancer at the age of 78 yrs. General Exam - General Exam Comments Initial Comments: GENERAL: The patient is well nourished and well hydrated. VITAL SIGNS: Heart rate, blood pressure, respiratory rate reviewed as recorded in nurse's notes. EYES: Pupils are round and reactive. Extraocular movements are intact. No conjunctival / lid redness or swelling. ENT: No external evidence of injury, swelling, or ecchymosis. Airway is patent. Throat is clear. NECK: Nontender. No swelling or evidence of injury. No subcutaneous emphysema. Trachea is midline. No thyroid mass. HEART: Regular rate and rhythm. Good peripheral pulses. LUNGS/CHEST: Breath sounds clear and equal bilaterally. No rales, rhonchi, or wheezes. No ecchymosis, subcutaneous emphysema, or tenderness. ABDOMEN: Mild tenderness noted to the midepigastric region. No palpable masses or organomegaly. No peritoneal signs. No abdominal wall swelling or ecchymosis. EXTREMITIES: No extremity tenderness. Normal muscle tone and function. No thoracolumbar tenderness. NEUROLOGIC: Sensation is grossly intact. Cranial nerve exam reveals face is symmetrical, tongue is midline, speech is clear. SKIN: No abrasions or ecchymosis is noted. No induration or masses noted. PSYCHIATRIC: Alert and oriented. Appropriate behavior and judgment. Limitations: no limitations Course Vital Signs 09/08/19 09/08/19 09/08/19 13:25 14:15 15:00 Temperature 98.2 F Pulse Rate 106 H 88 78 Respiratory 20 18 18 Rate Blood Pressure 150/89 135/87 140/81 O2 Sat by Pulse 97 96 97 Oximetry Medical Decision Making - Medical Decision Making The patient was seen and examined. All diagnostics are reviewed. The pancreatic enzymes are normal. The blood sugar slightly elevated. Remainder of labs are essentially within normal limits. The acute abdominal series x-ray does not show any acute abnormalities. An IV is started and she is hydrated. She also receives Zofran, morphine, and Reglan intravenously. She the morphine is repeated. She later receives a half dose at 2 mg of morphine IV. She is feeling much improved. Old records are reviewed. Appears that she is here relatively frequently for similar oftentimes a negative workup. She is feeling cyst and pain medications. Overall, is felt as though she stable for discharge. She like to be discharged as well. Upon review of her medication list it appears that she is on omeprazole 20 mg. As gastritis or peptic ulcer disease is in the differential, it is felt as though she benefit from increasing this to 40 mg per day instead. Close follow-up is recommended. Return parameters are discussed. - Lab Data Result diagrams: 09/08/19 14:00 09/08/19 14:00 Lab Results 09/08/19 09/08/19 Range/Units 14:00 14:00 WBC 8.9 (3.8-10.6) k/uL RBC 4.93 (3.80-5.40) m/uL Hgb 14.1 (11.4-16.0) gm/dL Hct 43.5 (34.0-46.0) % MCV 88.4 (80.0-100.0) fL MCH 28.5 (25.0-35.0) pg MCHC 32.3 (31.0-37.0) g/dL RDW 13.1 (11.5-15.5) % Plt Count 363 (150-450) k/uL Neutrophils % 81 % Lymphocytes % 14 % Monocytes % 4 % Eosinophils % 1 % Basophils % 0 % Neutrophils # 7.2 (1.3-7.7) k/uL Lymphocytes # 1.2 (1.0-4.8) k/uL Monocytes # 0.3 (0-1.0) k/uL Eosinophils # 0.1 (0-0.7) k/uL Basophils # 0.0 (0-0.2) k/uL Sodium 139 (137-145) mmol/L Potassium 3.7 (3.5-5.1) mmol/L Chloride 106 (98-107) mmol/L Carbon Dioxide 22 (22-30) mmol/L Anion Gap 11 mmol/L BUN 17 (7-17) mg/dL Creatinine 0.78 (0.52-1.04) mg/dL Est GFR (CKD-EPI)AfAm >90 (>60 ml/min/1.73 sqM) Est GFR (CKD-EPI)NonAf 82 (>60 ml/min/1.73 sqM) Glucose 166 H (74-99) mg/dL Calcium 9.4 (8.4-10.2) mg/dL Total Bilirubin 0.4 (0.2-1.3) mg/dL AST 31 (14-36) U/L ALT 18 (4-34) U/L Alkaline Phosphatase 100 (38-126) U/L Total Protein 7.5 (6.3-8.2) g/dL Albumin 4.4 (3.5-5.0) g/dL Amylase 32 (30-110) U/L Lipase 38 (23-300) U/L Disposition Clinical Impression: Chronic abdominal pain, Nausea and vomiting Disposition: HOME SELF-CARE Condition: Good Instructions (If sedation given, give patient instructions): Abdominal Pain (ED), Acute Nausea and Vomiting (ED) Additional Instructions: Please increase your omeprazole from 20 mg a day to 40 mg per day. He may use both the Zofran and Phenergan suppositories as needed for nausea. Prescriptions: Promethazine Suppository [Phenergan] 25 mg RECTAL QID PRN #20 supp PRN Reason: Nausea Is patient prescribed a controlled substance at d/c from ED?: No Referrals: Isac Calvin MD [Primary Care Provider] - 1-2 days Time of Disposition: 17:01
== END 2019-09-08 17:26 | disposition home or self-care (01) ==
LOC: EC 13:24
DX: G89.29 Other chronic pain (principal); R10.9 Unspecified abdominal pain; R11.2 Nausea with vomiting, unspecified; R19.7 Diarrhea, unspecified; K21.9 Gastro-esophageal reflux disease without esophagitis; I10 Essential (primary) hypertension; F17.200 Nicotine dependence, unspecified, uncomplicated; Z79.84 Long term (current) use of oral hypoglycemic drugs; Z79.899 Other long term (current) drug therapy; Z86.73 Personal history of transient ischemic attack (TIA), and cerebral infarction without residual deficits; Z90.49 Acquired absence of other specified parts of digestive tract; Z90.89 Acquired absence of other organs
CPT/HCPCS: 36415; 80053; 82150; 83690; 85025; 74019; 99284; 96374; 96375 ×3; 96376 ×2; 96361 ×3; J2270 ×2; J2765; J2405

== ENCOUNTER 2019-09-09 11:24 | Emergency (ER) | payer BC ==
[2019-09-09 11:28] VITALS: TEMP 98.2
[2019-09-09] MEDS ORDERED: SODIUM CHLORIDE 0.9% 500 ML 500 ML IV STA (11:42)
--- NOTE | 2019-09-09 11:57 | ED ---
General Adult HPI - General Chief complaint: Neuro Symptoms/Deficit Stated complaint: chest pain Time Seen by Provider: 09/09/19 11:25 Source: patient, RN notes reviewed, old records reviewed Mode of arrival: ambulatory Limitations: no limitations - History of Present Illness Initial comments: This is a 63-year-old female presents emergency Department complaining of significant chest pain and some shortness of breath with the chest pain. Patient states this started about an hour prior to arrival. Patient states she also noticed that the left side of her face was drooping this morning. Patient states she woke up and went to have a couple coughing noticed that the coughing was slipping out of her mouth and states that the last time she saw her face normal was last evening about 10:00. Patient also has noted that she has some left-sided weakness in her arm and her leg. Again she noticed that this morning and the last time that was normal was last evening. Patient does states she has a smoking history and history of pancreatitis and high blood pressure. Patient denies any abdominal pain currently. Patient denies any vomiting or diarrhea. Patient denies any recent history of fever chills or cough. Patient denies being lightheaded or dizzy. Patient denies any swelling to her legs or calf tenderness. - Related Data Home Medications Medication Instructions Recorded Confirmed Estrogen,Con/M-Progest Acet 1 tab PO DAILY 05/31/19 09/09/19 [Prempro 0.3 mg-1.5 mg Tablet] amLODIPine BESYLATE/BENAZEPRIL 1 cap PO DAILY 05/31/19 09/09/19 [Lotrel 2.5-10 MG] traMADol HCl [Ultram] 100 mg PO TID 05/31/19 09/09/19 Atorvastatin [Lipitor] 40 mg PO HS 09/08/19 09/09/19 Diphenox-Atrop 2.5-0.025 mg 1 tab PO QID PRN 09/08/19 09/09/19 [Lomotil] Gabapentin 800 mg PO QID 09/08/19 09/09/19 HYDROcodone/APAP 7.5-325MG [[place] 1 tab PO BID 09/08/19 09/09/19 7.5-325] Omeprazole 20 mg PO DAILY 09/08/19 09/09/19 metFORMIN HCL [Glucophage] 500 mg PO DAILY 09/08/19 09/09/19 Previous Rx's Medication Instructions Recorded Promethazine Suppository 25 mg RECTAL QID PRN #20 supp 09/08/19 [Phenergan] Allergies Allergy/AdvReac Type Severity Reaction Status Date / Time No Known Allergies Allergy Verified 09/09/19 12:28 Review of Systems ROS Statement: Those systems with pertinent positive or pertinent negative responses have been documented in the HPI. ROS Other: All systems not noted in ROS Statement are negative. Past Medical History Past Medical History: Chest Pain / Angina, COPD, CVA/TIA, GERD/Reflux, Hypertension, Osteoarthritis (OA), Rheumatoid Arthritis (RA) Additional Past Medical History / Comment(s): admitted to [facility] on 02/18/18 with colitis/sepsis/R renal cyst. Other hx: Recurrent pancreatitis, bronchitis, TIA, anemia-unknown cause, migraines, ostoeporosis, past R femur fracture with surgery.past l2 compression fx, History of Any Multi-Drug Resistant Organisms: None Reported Past Surgical History: Appendectomy, Back Surgery, Cholecystectomy, Orthopedic Surgery, Tonsillectomy Additional Past Surgical History / Comment(s): Pancreatic stents-since removed, 6 back surgeries with 2 fusions, right oophorectomy due to ectopic , EGD/colonoscopy, right leg alice inserted d/t fracture, Past Anesthesia/Blood Transfusion Reactions: No Reported Reaction Additional Past Anesthesia/Blood Transfusion Reaction / Comment(s): Pt has received blood in past without reaction. Past Psychological History: No Psychological Hx Reported Smoking Status: Current every day smoker Past Alcohol Use History: None Reported Past Drug Use History: None Reported - Past Family History Father Family Medical History: Cancer, Liver Disease Additional Family Medical History / Comment(s): Father was an alcoholic. He from lung/ liver cancer. Mother Family Medical History: Cancer, CVA/TIA, Hypertension Additional Family Medical History / Comment(s): Mother had breast and colon cancer. She of liver cancer at the age of 78 yrs. General Exam - General Exam Comments Initial Comments: GENERAL: Patient is well-developed and well-nourished. Patient is nontoxic and well- hydrated and is in mild distress. ENT: Neck is soft and supple. No significant lymphadenopathy is noted. Oropharynx is clear. Moist mucous membranes. Neck has full range of motion without eliciting any pain. EYES: The sclera were anicteric and conjunctiva were pink and moist. Extraocular movements were intact and pupils were equal round and reactive to light. Eyelids were unremarkable. PULMONARY: Unlabored respirations. Good breath sounds bilaterally. No audible rales rhonchi or wheezing was noted. CARDIOVASCULAR: There is a regular rate and rhythm without any murmurs gallops or rubs. ABDOMEN: Soft and nontender with normal bowel sounds. No palpable organomegaly was noted. There is no palpable pulsatile mass. SKIN: Skin is clear with no lesions or rashes and otherwise unremarkable. NEUROLOGIC: Patient is alert and oriented x3. Patient has left-sided facial droop with no involvement of the left side of the forehead. Patient has weakness in shuttle hand on the left compared to the right a 3 out of 5 shuttle hand. Patient has cerebellar signs with decreased accuracy of the left hand when doing the finger to nose testing. Patient also has dorsal and plantar flexion weakness on the left. Patient also has left-sided drift. NIH the patient is 6 MUSCULOSKELETAL: Normal extremities with adequate strength and full range of motion. No lower extremity swelling or edema. No calf tenderness. LYMPHATICS: No significant lymphadenopathy is noted PSYCHIATRIC: Normal psychiatric evaluation. Limitations: no limitations Course Vital Signs 09/09/19 09/09/19 11:26 13:20 Temperature 98.2 F Pulse Rate 111 H 101 H Respiratory 20 22 Rate Blood Pressure 167/87 144/107 O2 Sat by Pulse 93 L 99 Oximetry Medical Decision Making - Medical Decision Making EKG shows normal sinus rhythm at 90 bpm FL interval 266 dresses 72 QT interval 42 QTC is 513. Patient's EKG shows no ST segment elevation or depression. CT of the brain showed a right basal ganglia infarct. CT angiogram head and neck show an occluded right internal carotid artery. CT angios of the aorta showed no dissection. Patient was called as a code stroke because of the onset of symptoms being under 24 [address]. I spoke with Dr. Jamil and he wanted the patient transferred to [facility] - Lab Data Result diagrams: 09/09/19 11:48 09/09/19 11:48 Lab Results 09/09/19 09/09/19 09/09/19 Range/Units 11:48 11:48 11:48 WBC 7.8 (3.8-10.6) k/uL RBC 4.78 (3.80-5.40) m/uL Hgb 13.6 (11.4-16.0) gm/dL Hct 42.3 (34.0-46.0) % MCV 88.4 (80.0-100.0) fL MCH 28.3 (25.0-35.0) pg MCHC 32.0 (31.0-37.0) g/dL RDW 13.2 (11.5-15.5) % Plt Count 380 (150-450) k/uL Neutrophils % 68 % Lymphocytes % 22 % Monocytes % 6 % Eosinophils % 2 % Basophils % 1 % Neutrophils # 5.3 (1.3-7.7) k/uL Lymphocytes # 1.7 (1.0-4.8) k/uL Monocytes # 0.5 (0-1.0) k/uL Eosinophils # 0.1 (0-0.7) k/uL Basophils # 0.1 (0-0.2) k/uL PT (9.0-12.0) sec INR (<1.2) APTT (22.0-30.0) sec Sodium 138 (137-145) mmol/L Potassium 3.6 (3.5-5.1) mmol/L Chloride 104 (98-107) mmol/L Carbon Dioxide 25 (22-30) mmol/L Anion Gap 9 mmol/L BUN 17 (7-17) mg/dL Creatinine 0.71 (0.52-1.04) mg/dL Est GFR (CKD-EPI)AfAm >90 (>60 ml/min/1.73 sqM) Est GFR (CKD-EPI)NonAf >90 (>60 ml/min/1.73 sqM) Glucose 159 H (74-99) mg/dL Calcium 9.1 (8.4-10.2) mg/dL Total Bilirubin 0.4 (0.2-1.3) mg/dL AST 54 H (14-36) U/L ALT 31 (4-34) U/L Alkaline Phosphatase 95 (38-126) U/L Total Creatine Kinase 178 H (30-135) U/L CK-MB (CK-2) 2.6 H (0.0-2.4) ng/mL CK-MB (CK-2) Rel Index 1.5 Troponin I <0.012 (0.000-0.034) ng/mL Total Protein 7.3 (6.3-8.2) g/dL Albumin 4.3 (3.5-5.0) g/dL 09/09/19 Range/Units 11:48 WBC (3.8-10.6) k/uL RBC (3.80-5.40) m/uL Hgb (11.4-16.0) gm/dL Hct (34.0-46.0) % MCV (80.0-100.0) fL MCH (25.0-35.0) pg MCHC (31.0-37.0) g/dL RDW (11.5-15.5) % Plt Count (150-450) k/uL Neutrophils % % Lymphocytes % % Monocytes % % Eosinophils % % Basophils % % Neutrophils # (1.3-7.7) k/uL Lymphocytes # (1.0-4.8) k/uL Monocytes # (0-1.0) k/uL Eosinophils # (0-0.7) k/uL Basophils # (0-0.2) k/uL PT 9.9 (9.0-12.0) sec INR 0.9 (<1.2) APTT 22.7 (22.0-30.0) sec Sodium (137-145) mmol/L Potassium (3.5-5.1) mmol/L Chloride (98-107) mmol/L Carbon Dioxide (22-30) mmol/L Anion Gap mmol/L BUN (7-17) mg/dL Creatinine (0.52-1.04) mg/dL Est GFR (CKD-EPI)AfAm (>60 ml/min/1.73 sqM) Est GFR (CKD-EPI)NonAf (>60 ml/min/1.73 sqM) Glucose (74-99) mg/dL Calcium (8.4-10.2) mg/dL Total Bilirubin (0.2-1.3) mg/dL AST (14-36) U/L ALT (4-34) U/L Alkaline Phosphatase (38-126) U/L Total Creatine Kinase (30-135) U/L CK-MB (CK-2) (0.0-2.4) ng/mL CK-MB (CK-2) Rel Index Troponin I (0.000-0.034) ng/mL Total Protein (6.3-8.2) g/dL Albumin (3.5-5.0) g/dL Critical Care Time Critical Care Time: Yes Total Critical Care Time: 35 Disposition Clinical Impression: Chest pain, Cerebrovascular accident (CVA) Disposition: OTHER INSTITUTION NOT DEFINED Referrals: Isac Calvin MD [Primary Care Provider] - 1-2 days - Out of Hospital Transfer - Req. Specs Out of Hospital Transfer - Requested Specifics: Neurological ICU ([facility])
[2019-09-09 12:03] LABS: Basophils # (A) 0.1 k/uL (0-0.2); Basophils % (A) 1 %; Eosinophils # (A) 0.1 k/uL (0-0.7); Eosinophils % (A) 2 %; HCT 42.3 % (34.0-46.0); HGB 13.6 gm/dL (11.4-16.0); Lymphocytes # (A) 1.7 k/uL (1.0-4.8); Lymphocytes % (A) 22 %; MCH 28.3 pg (25.0-35.0); MCV 88.4 fL (80.0-100.0); Mean Platelet Volume 6.8; Monocytes # (A) 0.5 k/uL (0-1.0); Monocytes % (A) 6 %; Neutrophils # (A) 5.3 k/uL (1.3-7.7); Neutrophils % (A) 68 %; Platelet Count 380 k/uL (150-450); RBC 4.78 m/uL (3.80-5.40); RDW 13.2 % (11.5-15.5); WBC 7.8 k/uL (3.8-10.6)
[2019-09-09 12:12] LABS: INR 0.9 (<1.2); Partial Thromboplastin Time 22.7 sec (22.0-30.0); Prothrombin Time 9.9 sec (9.0-12.0)
--- NOTE | 2019-09-09 12:13 | CT ---
EXAMINATION TYPE: CT brain wo con for TPA DATE OF EXAM: 09/09/2019 COMPARISON: 01/31/2016 INDICATION: Lt sided weakness DLP: 1058 mGycm, Automated exposure control for dose reduction was used. CONTRAST: None CT of the brain is performed utilizing 3 mm thick sections through the posterior fossa and 3 mm thick sections through the remaining calvarium. Study is performed within 24 hours of arrival to the hosp ital. No abnormal hyperdensity is present to suggest an acute intracranial hemorrhage. No mass lesion is evident. There appears to be a ill-defined hypodensity within the superior right basal ganglion subcortical wh ite matter of the posterior right frontal lobe best visualized series 201 image 27. This is an inter michelle change may be related to an acute infarct. Ventricles and sulci are mildly prominent for the patient age. Paranasal sinuses and mastoid air cells within the [id number] are clear. IMPRESSIONS: 1. There is ill-defined hypodensity within the right basal ganglion right frontal lobe suspicious f or an acute ischemic area. Correlate with the clinical symptoms. MRI could be performed for closer ev aluation. Report was called to emergency room physician Dr. Patel by Dr. Paz by telephone [phone] 09/09/2019
[2019-09-09 12:16] LABS: ALT 31 U/L (4-34); AST 54 U/L (14-36); African American GFR (CKD) >90 (>60 ml/min/1.73 sqM); Albumin 4.3 g/dL (3.5-5.0); Alkaline Phosphatase 95 U/L (38-126); Anion Gap 9 mmol/L; Blood Urea Nitrogen 17 mg/dL (7-17); Calcium 9.1 mg/dL (8.4-10.2); Carbon Dioxide 25 mmol/L (22-30); Chloride 104 mmol/L (98-107); Glucose 159 mg/dL (74-99); Non-African American GFR(CKD) >90 (>60 ml/min/1.73 sqM); Potassium 3.6 mmol/L (3.5-5.1); Sodium 138 mmol/L (137-145); Total Bilirubin 0.4 mg/dL (0.2-1.3); Total Protein 7.3 g/dL (6.3-8.2)
[2019-09-09 12:20] LABS: Creatine Kinase 178 U/L (30-135)
[2019-09-09 12:33] LABS: Creatine Kinase MB 2.6 ng/mL (0.0-2.4); Troponin I <0.012 ng/mL (0.000-0.034)
--- NOTE | 2019-09-09 12:49 | XR ---
EXAMINATION TYPE: XR chest 2V DATE OF EXAM: 09/09/2019 COMPARISON: 06/24/2018 TECHNIQUE: PA and lateral views submitted. HISTORY: Altered mental status FINDINGS: The lungs are clear and there is no pneumothorax, pleural effusion, or focal pneumonia. Diffuse ost eopenia and arthropathy of the shoulders. Postsurgical change vertebral column. Hyperinflation sugges ts COPD. Surgical clips in the abdomen. One of the transpedicular screws at the thoracolumbar junctio n appears to extend into the disc space and should be correlated clinically. This is similar to the p rior exam. IMPRESSION: 1. COPD.
--- NOTE | 2019-09-09 13:04 | CT ---
EXAMINATION TYPE: CT angio head neck DATE OF EXAM: 09/09/2019 HISTORY: Lt sided weakness COMPARISON: None CT DLP: 348.1 mGycm. Automated Exposure Control for Dose Reduction was Utilized. TECHNIQUE: CTA scan of the neck is performed with IV Contrast, patient injected with 65 mL of Isovue 370, axial images are obtained, coronal and sagittal reformatted images are reviewed. Three-D recons tructed images are created on an independent workstation and reviewed. Source images are reviewed. FINDINGS: Carotid/Vascular Structures: There is a three-vessel arch. Vertebral arteries are codominant. No sign ificant stenosis at the left carotid bifurcation. The right carotid bifurcation appears to be obstruc danihsa at its origin. Cervical of Alas: Vertebral basilar system appears normal. Posterior cerebral vasculature is normal . Posterior communicating arteries are not clearly identified. Left internal carotid artery bifurcates normally into A1 and M1 segments. The anterior communicating artery is patent. A2 segments are normal. Right internal carotid artery is obstructed proximally. There is some retrograde flow in the distal r ight internal carotid artery. Right middle cerebral artery branches are patent right A1 segment is pa tent in the coronal plane. Other: IMPRESSION: 1. 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 2. Normal [facility] [place]
--- NOTE | 2019-09-09 13:12 | CT ---
EXAMINATION TYPE: CT angio thor/abd pel aorta DATE OF EXAM: 09/09/2019 COMPARISON: None HISTORY: chest pain, dissection CT DLP: 1280.9 mGycm, Automated exposure control for dose reduction was used. CONTRAST: Performed injected with 80 mL of Isovue 370. TECHNIQUE: Axial images were obtained at 5 mm thick sections. Reconstructed images are reviewed on [facility] computer in the coronal plane. Three-D reconstructed images performed on a separate computer by [facility] technologist are reviewed. FINDINGS: Portion of the thyroid visualized is normal. No suspicious lung nodules or focal infiltrates are present. No enlarged mediastinal or hilar adenopathy is evident. The ascending aorta diameter at the level o f the main pulmonary artery is 3.2 cm. The main pulmonary artery diameter at the bifurcation is 2.[address] sections are obtained through the upper abdomen. Abdomen is essentially unremarkable. CT abdomen pelvis: Note is made of a cystocele the urinary bladder. Uterus and adnexa appear normal. Loops of bowel without oral contrast appear within normal limits. The appendix is not identified. Sca ttered diverticuli are within the descending colon and sigmoid colon. Contrast CTA abdomen and pelvis : Calcification is present within the aorta. No aneurysmal dilatation is evident. Celiac axis and sup erior mesenteric arteries are normal. Vertebral arteries are normal. Aortic bifurcation is not well v isualized likely due to beam hardening artifact from pedicle screws at this level. Internal and exter nal iliac vessels are patent. Common femoral and profunda femoris and superficial femoral arteries wi thin the [id number] are normal. Spleen appears normal. There may be some mild dilatation of the proximal intrahepatic and extrahepati c biliary ducts. Gallbladder surgically absent. Pancreatic duct is somewhat prominent. Pancreas is at rophic. Adrenal glands are normal. Kidneys are normal without masses cysts or hydronephrosis. There i s a cyst on the anterior inferior pole left kidney this measures 1.8 cm and 19 Hounsfield units. IMPRESSIONS: 1. No dissection or aneurysm of the thoracic or abdominal aorta. 2. Intrahepatic and extra hepatic biliary prominence. Patient is status post cholecystectomy. 3. Prominence of the pancreatic duct in an atrophic pancreas. 4. Inferior pole right renal cyst.
[2019-09-09] MEDS ORDERED: ACETAMINOPHEN TAB 500 MG TAB PO STA (13:21)
[2019-09-09] MEDS ORDERED: LORazepam 2 MG/ML INJ IV STA (13:22)
[2019-09-09 13:27] VITALS: BP 144/107; PULSE 101; RESP 22
[2019-09-09 14:23] LABS: Amylase 42 U/L (30-110)
== END 2019-09-09 14:25 | disposition short-term general hospital (02) ==
LOC: EC 11:24
DX: I63.231 Cerebral infarction due to unspecified occlusion or stenosis of right carotid arteries (principal); R07.9 Chest pain, unspecified; G81.94 Hemiplegia, unspecified affecting left nondominant side; R29.810 Facial weakness; R29.706 NIHSS score 6; R06.02 Shortness of breath; K21.9 Gastro-esophageal reflux disease without esophagitis; I10 Essential (primary) hypertension; M19.90 Unspecified osteoarthritis, unspecified site; M06.9 Rheumatoid arthritis, unspecified; M81.0 Age-related osteoporosis without current pathological fracture; F17.200 Nicotine dependence, unspecified, uncomplicated; Z79.84 Long term (current) use of oral hypoglycemic drugs; Z79.891 Long term (current) use of opiate analgesic; Z79.899 Other long term (current) drug therapy; Z86.69 Personal history of other diseases of the nervous system and sense organs; Z98.1 Arthrodesis status; Z96.698 Presence of other orthopedic joint implants; Z82.3 Family history of stroke; Z82.49 Family history of ischemic heart disease and other diseases of the circulatory system
CPT/HCPCS: 36415; 93005; 80053; 82150; 82550; 82553; 83690; 84484; 85025; 85610; 85730; 71046; 70496; 70450; 70498; 71275; 74174; 99291; 96374; 96361; J2060; Q9967

== ENCOUNTER 2019-09-19 19:01 | Emergency (ER) | payer BC ==
[2019-09-19 19:14] LABS: Glucose,Whole Blood 112 mg/dL (75-99)
[2019-09-19] MEDS ORDERED: SODIUM CHLORIDE 0.9% 1,000 ML IV ONE (19:34)
[2019-09-19] MEDS ORDERED: LORazepam 2 MG/ML INJ IV STA (19:34)
--- NOTE | 2019-09-19 19:34 | ED ---
Neuro HPI - General Chief Complaint: Neuro Symptoms/Deficit Stated Complaint: neuro deficit Time Seen by Provider: 09/19/19 19:01 Source: patient, EMS Mode of arrival: EMS Limitations: physical limitation - History of Present Illness Is the patient presenting with stroke symptoms?: Yes Initial Comments: The patient is a 63-year-old female with past medical history of CVA 10 days ago. At that time she suffered from left sided facial droop and left upper and lower extremity weakness. 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 At that time they did do an angiogram. Patient was placed on Brillinta and aspirin. States she's been taking her medications daily without fail. Approximatly 1 to 2 hours prior to hospital arrival today the patient sustained a fall. She ambulates with a cane and slid to the ground. Family noted that she had complete paralysis of her left side and her left sided facial droop was much worse. Because this, they did call EMS to transport her to the hospital. The patient is refusing to me that her symptoms seem any worse. NIH is noted to be an 11 when previously on September 09 was noted to be a 6. She denies any headaches or visual changes. No trauma sustained from the fall. No confusion reported from the patient. No visual changes or no right-sided weakness. There are no alleviating, precipitating or modifying factors - Related Data Home Medications: Home Medications Medication Instructions Recorded Confirmed Estrogen,Con/M-Progest Acet 1 tab PO DAILY 05/31/19 09/09/19 [Prempro 0.3 mg-1.5 mg Tablet] amLODIPine BESYLATE/BENAZEPRIL 1 cap PO DAILY 05/31/19 09/09/19 [Lotrel 2.5-10 MG] traMADol HCl [Ultram] 100 mg PO TID 05/31/19 09/09/19 Atorvastatin [Lipitor] 40 mg PO HS 09/08/19 09/09/19 Diphenox-Atrop 2.5-0.025 mg 1 tab PO QID PRN 09/08/19 09/09/19 [Lomotil] Gabapentin 800 mg PO QID 09/08/19 09/09/19 HYDROcodone/APAP 7.5-325MG [[place] 1 tab PO BID 01/06/20 01/07/20 7.5-325] Omeprazole 20 mg PO DAILY 09/08/19 09/09/19 metFORMIN HCL [Glucophage] 500 mg PO DAILY 09/08/19 09/09/19 Previous Rx's Medication Instructions Recorded Promethazine Suppository 25 mg RECTAL QID PRN #20 supp 09/08/19 [Phenergan] Allergies/Adverse Reactions: Allergies Allergy/AdvReac Type Severity Reaction Status Date / Time No Known Allergies Allergy Verified 09/09/19 12:28 Review of Systems ROS Statement: Those systems with pertinent positive or pertinent negative responses have been documented in the HPI. ROS Other: All systems not noted in ROS Statement are negative. General Exam Limitations: physical limitation General appearance: alert, in no apparent distress Head exam: Present: atraumatic, normocephalic, normal inspection Eye exam: Present: normal appearance, PERRL, EOMI. Absent: scleral icterus, conjunctival injection, periorbital swelling ENT exam: Present: normal exam, mucous membranes moist Neck exam: Present: normal inspection. Absent: tenderness, meningismus, lymphadenopathy Respiratory exam: Present: normal lung sounds bilaterally. Absent: respiratory distress, wheezes, rales, rhonchi, stridor Cardiovascular Exam: Present: regular rate, normal rhythm, normal heart sounds. Absent: systolic murmur, diastolic murmur, rubs, gallop, clicks GI/Abdominal exam: Present: soft, normal bowel sounds. Absent: distended, tenderness, guarding, rebound, rigid Extremities exam: Present: normal capillary refill. Absent: tenderness, pedal edema, joint swelling, calf tenderness Back exam: Present: normal inspection Neurological exam: Present: alert, oriented X3, other (The patient does have drooping to her left lower face. There is complete paralysis of the patient's left upper and lower extremity. Ataxia testing unable to be performed in these extremities. She does have mild dysarthria due to her facial droop. No aphasia.) Psychiatric exam: Present: normal affect, normal mood Skin exam: Present: warm, dry, intact, normal color. Absent: rash Stroke MDM - Lab Data Result diagrams: 09/19/19 19:16 09/19/19 19:16 Lab Results 09/19/19 09/19/19 09/19/19 Range/Units 19:03 19:16 19:16 WBC 12.3 H (3.8-10.6) k/uL RBC 3.12 L (3.80-5.40) m/uL Hgb 9.0 L D (11.4-16.0) gm/dL Hct 28.1 L (34.0-46.0) % MCV 89.8 (80.0-100.0) fL MCH 28.9 (25.0-35.0) pg MCHC 32.1 (31.0-37.0) g/dL RDW 14.4 (11.5-15.5) % Plt Count 622 H (150-450) k/uL Neutrophils % 66 % Lymphocytes % 20 % Monocytes % 6 % Eosinophils % 4 % Basophils % 2 % Neutrophils # 8.1 H (1.3-7.7) k/uL Lymphocytes # 2.4 (1.0-4.8) k/uL Monocytes # 0.8 (0-1.0) k/uL Eosinophils # 0.5 (0-0.7) k/uL Basophils # 0.3 H (0-0.2) k/uL PT (9.0-12.0) sec INR (<1.2) APTT (22.0-30.0) sec Sodium 141 (137-145) mmol/L Potassium 4.5 (3.5-5.1) mmol/L Chloride 113 H (98-107) mmol/L Carbon Dioxide 20 L (22-30) mmol/L Anion Gap 8 mmol/L BUN 19 H (7-17) mg/dL Creatinine 0.72 (0.52-1.04) mg/dL Est GFR (CKD-EPI)AfAm >90 (>60 ml/min/1.73 sqM) Est GFR (CKD-EPI)NonAf >90 (>60 ml/min/1.73 sqM) Glucose 101 H (74-99) mg/dL POC Glucose (mg/dL) 112 H (75-99) mg/dL POC Glu Electrical Engineering Technologist ID Annie Campbell Calcium 9.2 (8.4-10.2) mg/dL Total Bilirubin 0.7 (0.2-1.3) mg/dL AST 29 (14-36) U/L ALT 20 (4-34) U/L Alkaline Phosphatase 81 (38-126) U/L Troponin I (0.000-0.034) ng/mL Total Protein 6.6 (6.3-8.2) g/dL Albumin 3.8 (3.5-5.0) g/dL 09/19/19 09/19/19 Range/Units 19:16 19:42 WBC (3.8-10.6) k/uL RBC (3.80-5.40) m/uL Hgb (11.4-16.0) gm/dL Hct (34.0-46.0) % MCV (80.0-100.0) fL MCH (25.0-35.0) pg MCHC (31.0-37.0) g/dL RDW (11.5-15.5) % Plt Count (150-450) k/uL Neutrophils % % Lymphocytes % % Monocytes % % Eosinophils % % Basophils % % Neutrophils # (1.3-7.7) k/uL Lymphocytes # (1.0-4.8) k/uL Monocytes # (0-1.0) k/uL Eosinophils # (0-0.7) k/uL Basophils # (0-0.2) k/uL PT 11.5 (9.0-12.0) sec INR 1.1 (<1.2) APTT 27.8 (22.0-30.0) sec Sodium (137-145) mmol/L Potassium (3.5-5.1) mmol/L Chloride (98-107) mmol/L Carbon Dioxide (22-30) mmol/L Anion Gap mmol/L BUN (7-17) mg/dL Creatinine (0.52-1.04) mg/dL Est GFR (CKD-EPI)AfAm (>60 ml/min/1.73 sqM) Est GFR (CKD-EPI)NonAf (>60 ml/min/1.73 sqM) Glucose (74-99) mg/dL POC Glucose (mg/dL) (75-99) mg/dL POC Glu Electrical Engineering Technologist ID Calcium (8.4-10.2) mg/dL Total Bilirubin (0.2-1.3) mg/dL AST (14-36) U/L ALT (4-34) U/L Alkaline Phosphatase (38-126) U/L Troponin I <0.012 (0.000-0.034) ng/mL Total Protein (6.3-8.2) g/dL Albumin (3.5-5.0) g/dL - Medical Decision Making Upon arrival the patient was placed in a trauma 2. NIH assessment shows that the patient has an NIH 11. Because of this we did activate a code stroke. I discussed the case with Dr. Gray at 7:13 pm. IV was established. Accu-Chek was performed and the patient had a blood glucose of 112. She was sent over for CT of her head as well as CT angiography of her head and neck. I then discussed the case once again with Dr. Walters at 7:27. He does see a thrombus within the right MCA. He recommended thrombectomy and evaluated the patient over the stroke robot. The patient does agree to the procedure. He recommends a liter bolus of normal saline. Patient's blood pressure is to remain between 140 and 220 systolic. She has already taken her Brilinta and aspirin for today. He recommended transfer down [facility] for thrombectomy. EMS was called. I discussed the case with Dr. Hermosillo who accepted transfer. [employer] forms were signed and the patient was sent via [facility] one to [facility] 09/19/19 20:03 EKG demonstrates a normal sinus rhythm with ventricular rate 91. CA interval 158. QRS 68. QTC of 44. No acute ST segment elevations or depressions concerning for ischemic changes Past Medical History Past Medical History: Chest Pain / Angina, COPD, CVA/TIA, GERD/Reflux, Hypertension, Osteoarthritis (OA), Rheumatoid Arthritis (RA) Additional Past Medical History / Comment(s): admitted to [facility] on 02/18/18 with colitis/sepsis/R renal cyst. Other hx: Recurrent pancreatitis, bronchitis, TIA, anemia-unknown cause, migraines, ostoeporosis, past R femur fracture with surgery.past l2 compression fx, [place] sep 2019. History of Any Multi-Drug Resistant Organisms: None Reported Past Surgical History: Appendectomy, Back Surgery, Cholecystectomy, Orthopedic S urgery, Tonsillectomy Additional Past Surgical History / Comment(s): Pancreatic stents-since removed, 6 back surgeries with 2 fusions, right oophorectomy due to ectopic , EGD/colonoscopy, right leg alice inserted d/t fracture, Past Anesthesia/Blood Transfusion Reactions: No Reported Reaction Additional Past Anesthesia/Blood Transfusion Reaction / Comment(s): Pt has received blood in past without reaction. Past Psychological History: No Psychological Hx Reported Smoking Status: Former smoker Past Alcohol Use History: None Reported Past Drug Use History: None Reported - Past Family History Father Family Medical History: Cancer, Liver Disease Additional Family Medical History / Comment(s): Father was an alcoholic. He from lung/ liver cancer. Mother Family Medical History: Cancer, CVA/TIA, Hypertension Additional Family Medical History / Comment(s): Mother had breast and colon cancer. She of liver cancer at the age of 78 yrs. Course Vital Signs 09/19/19 09/19/19 09/19/19 19:05 19:20 19:35 Temperature 97.8 F 97.6 F 98.1 F Pulse Rate 83 86 86 Respiratory 16 18 16 Rate Blood Pressure 126/66 140/72 147/75 O2 Sat by Pulse 99 98 96 Oximetry 09/19/19 09/19/19 09/19/19 19:50 20:14 20:15 Temperature 98 F 98 F 98 F Pulse Rate 86 86 86 Respiratory 18 18 18 Rate Blood Pressure 152/80 152/80 152/80 O2 Sat by Pulse 98 98 98 Oximetry Critical Care Time Critical Care Time: Yes Critical Care Time: 35 minutes for rapid stroke evaluation. I spoke with Dr. Gray 3 times regarding patients care and facilitated the transfer to [facility] Disposition Clinical Impression: CVA (cerebral vascular accident), Left hemiparesis Disposition: OTHER INSTITUTION NOT DEFINED Condition: Serious Is patient prescribed a controlled substance at d/c from ED?: No Referrals: Isac Calvin MD [Primary Care Provider] - 1-2 days - Out of Hospital Transfer - Req. Specs Out of Hospital Transfer - Requested Specifics: Other Emergency Center ([facility])
[2019-09-19 19:35] LABS: Basophils # (A) 0.3 k/uL (0-0.2); Basophils % (A) 2 %; Eosinophils # (A) 0.5 k/uL (0-0.7); Eosinophils % (A) 4 %; HCT 28.1 % (34.0-46.0); Lymphocytes # (A) 2.4 k/uL (1.0-4.8); Lymphocytes % (A) 20 %; MCH 28.9 pg (25.0-35.0); MCHC 32.1 g/dL (31.0-37.0); MCV 89.8 fL (80.0-100.0); Mean Platelet Volume 6.8; Monocytes # (A) 0.8 k/uL (0-1.0); Monocytes % (A) 6 %; Neutrophils # (A) 8.1 k/uL (1.3-7.7); Neutrophils % (A) 66 %; Platelet Count 622 k/uL (150-450); RBC 3.12 m/uL (3.80-5.40); RDW 14.4 % (11.5-15.5); WBC 12.3 k/uL (3.8-10.6)
--- NOTE | 2019-09-19 19:40 | CT ---
EXAMINATION TYPE: CT brain wo con for TPA DATE OF EXAM: 09/19/2019 COMPARISON: 09/09/2019 HISTORY: Left sided weakness. CT DLP: 1186.8 mGycm Automated exposure control for dose reduction was used. There is mild cerebral cortical atrophy. There is no mass effect nor midline shift. There is no sign of intracranial hemorrhage. There is mild patchy hypodensity in the periventricular white matter. Catrachito varium is intact. IMPRESSION: Cerebral atrophy. Mild white matter changes could relate to chronic small vessel ischemia or demyelin ating disease. No hemorrhage. No change compared to last exam.
[2019-09-19 19:43] LABS: ALT 20 U/L (4-34); AST 29 U/L (14-36); African American GFR (CKD) >90 (>60 ml/min/1.73 sqM); Albumin 3.8 g/dL (3.5-5.0); Alkaline Phosphatase 81 U/L (38-126); Anion Gap 8 mmol/L; Blood Urea Nitrogen 19 mg/dL (7-17); Calcium 9.2 mg/dL (8.4-10.2); Carbon Dioxide 20 mmol/L (22-30); Chloride 113 mmol/L (98-107); Glucose 101 mg/dL (74-99); Non-African American GFR(CKD) >90 (>60 ml/min/1.73 sqM); Potassium 4.5 mmol/L (3.5-5.1); Sodium 141 mmol/L (137-145); Total Bilirubin 0.7 mg/dL (0.2-1.3); Total Protein 6.6 g/dL (6.3-8.2)
--- NOTE | 2019-09-19 20:03 | CT ---
EXAMINATION TYPE: CT angio head neck DATE OF EXAM: 09/19/2019 COMPARISON: 09/09/2019 HISTORY: Left sided weakness. CT DLP: 371.5 mGycm Automated exposure control for dose reduction was used. CONTRAST: Performed with IV Contrast, patient injected with 65ml mL of Isovue 370. Multiple axial sections were obtained from the aortic arch to the vertex of the brain with intravenou s contrast. There are 3-D post processed images. There is normal branching pattern of the great vessels on the aortic arch. There is arterial flow in both subclavian arteries. There is arterial flow in both vertebral arteries which are fairly symmetri c. There is arterial flow in the common carotid arteries bilaterally. There is occlusion of the right internal carotid artery at its origin. There is arterial flow in the left internal carotid artery wi thout evidence of hemodynamic stenosis. There is arterial flow in the vertebrobasilar artery system. There is arterial flow in the anterior m iddle and posterior cerebral arteries bilaterally. The right middle cerebral artery and right anterio r cerebral artery appears to fill through the anterior communicating artery. There is no evidence of intracranial mass effect or neovascularity. There is no evidence of aneurysm. I see no sign of intrac ranial arterial stenosis. There is normal contrast opacification of the venous sinuses. 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 No significant intracranial angiographic abnormality.
[2019-09-19 20:11] VITALS: PULSE 86
[2019-09-19 20:14] VITALS: BP 152/80; RESP 18; TEMP 98
[2019-09-19 20:28] LABS: INR 1.1 (<1.2); Partial Thromboplastin Time 27.8 sec (22.0-30.0); Prothrombin Time 11.5 sec (9.0-12.0)
== END 2019-09-19 20:15 | disposition other institution (70) ==
LOC: EC 19:01
DX: I63.9 Cerebral infarction, unspecified (principal); R29.714 NIHSS score 14; K21.9 Gastro-esophageal reflux disease without esophagitis; I10 Essential (primary) hypertension; M19.90 Unspecified osteoarthritis, unspecified site; M06.9 Rheumatoid arthritis, unspecified; G43.909 Migraine, unspecified, not intractable, without status migrainosus; Z87.891 Personal history of nicotine dependence; Z79.890 Hormone replacement therapy; Z79.891 Long term (current) use of opiate analgesic; Z79.84 Long term (current) use of oral hypoglycemic drugs; Z79.899 Other long term (current) drug therapy
CPT/HCPCS: 36415; 93005; 80053; 84484; 85025; 85610; 85730; 70496; 70450; 70498; 99285; 96374; 96361; J2060; Q9967

== ENCOUNTER 2019-11-21 12:23 | Emergency (ER) | payer BC ==
[2019-11-21 12:28] VITALS: TEMP 98.9
[2019-11-21] MEDS ORDERED: SODIUM CHLORIDE 0.9% 500 ML 500 ML IV STA (12:39)
[2019-11-21] MEDS ORDERED: SODIUM CHLORIDE 0.9% 1,000 ML IV STA ×2 (12:39→14:41)
[2019-11-21] MEDS ORDERED: HYDROmorphone 1 MG/ML 1 ML SYRINGE IVP STA ×2 (12:39→14:41)
[2019-11-21] MEDS ORDERED: PROMETHAZINE INJ 25 MG in SODIUM CHLORIDE 0.9% 50 ML IVPB STA (12:40)
--- NOTE | 2019-11-21 12:42 | ED ---
Abdominal Pain HPI - General Chief Complaint: Abdominal Pain Stated Complaint: abd pain, vomiting Time Seen by Provider: 11/21/19 12:34 Source: patient, RN notes reviewed Mode of arrival: wheelchair Limitations: no limitations - History of Present Illness Initial Comments: This is a 64-year-old female history of pancreatitis who states she's had 3 days of upper abdominal pain sharp and achy in nature currently 8/10 severity with nausea and vomiting also some diarrhea. She states it feels very similar to her previous episodes of pancreatitis. She initially had pancreatitis secondary to gallstones he has no gallbladder this time she denies drinking alcohol. No new medication. He's had markedly decreased oral intake does feel weak. MD Complaint: abdominal pain - Related Data Home Medications Medication Instructions Recorded Confirmed Estrogen,Con/M-Progest Acet 1 tab PO DAILY 05/31/19 09/09/19 [Prempro 0.3 mg-1.5 mg Tablet] amLODIPine BESYLATE/BENAZEPRIL 1 cap PO DAILY 05/31/19 09/09/19 [Lotrel 2.5-10 MG] traMADol HCl [Ultram] 100 mg PO TID 05/31/19 09/09/19 Atorvastatin [Lipitor] 40 mg PO HS 09/08/19 09/09/19 Diphenox-Atrop 2.5-0.025 mg 1 tab PO QID PRN 09/08/19 09/09/19 [Lomotil] Gabapentin 800 mg PO QID 09/08/19 09/09/19 HYDROcodone/APAP 7.5-325MG [[place] 1 tab PO BID 09/08/19 09/09/19 7.5-325] Omeprazole 20 mg PO DAILY 09/08/19 09/09/19 metFORMIN HCL [Glucophage] 500 mg PO DAILY 09/08/19 09/09/19 Previous Rx's Medication Instructions Recorded Promethazine Suppository 25 mg RECTAL QID PRN #20 supp 09/08/19 [Phenergan] Allergies Allergy/AdvReac Type Severity Reaction Status Date / Time No Known Allergies Allergy Verified 11/21/19 12:28 Review of Systems ROS Statement: Those systems with pertinent positive or pertinent negative responses have been documented in the HPI. ROS Other: All systems not noted in ROS Statement are negative. Past Medical History Past Medical History: Chest Pain / Angina, COPD, CVA/TIA, GERD/Reflux, Hypertension, Osteoarthritis (OA), Rheumatoid Arthritis (RA) Additional Past Medical History / Comment(s): admitted to [facility] on 02/18/18 with colitis/sepsis/R renal cyst. Other hx: Recurrent pancreatitis, bronchitis, TIA, anemia-unknown cause, migraines, ostoeporosis, past R femur fracture with surgery.past l2 compression fx, [place] sep 2019. History of Any Multi-Drug Resistant Organisms: None Reported Past Surgical History: Appendectomy, Back Surgery, Cholecystectomy, Orthopedic Surgery, Tonsillectomy Additional Past Surgical History / Comment(s): Pancreatic stents-since removed, 6 back surgeries with 2 fusions, right oophorectomy due to ectopic , EGD/colonoscopy, right leg alice inserted d/t fracture, Past Anesthesia/Blood Transfusion Reactions: No Reported Reaction Additional Past Anesthesia/Blood Transfusion Reaction / Comment(s): Pt has received blood in past without reaction. Past Psychological History: No Psychological Hx Reported Smoking Status: Former smoker Past Alcohol Use History: None Reported Past Drug Use History: None Reported - Past Family History Father Family Medical History: Cancer, Liver Disease Additional Family Medical History / Comment(s): Father was an alcoholic. He from lung/ liver cancer. Mother Family Medical History: Cancer, CVA/TIA, Hypertension Additional Family Medical History / Comment(s): Mother had breast and colon cancer. She of liver cancer at the age of 78 yrs. General Exam - General Exam Comments Initial Comments: This a well-developed sec appearing female who is awake alert oriented 3 Limitations: no limitations General appearance: alert, in no apparent distress Head exam: Present: atraumatic, normocephalic, normal inspection Eye exam: Present: normal appearance, PERRL, EOMI. Absent: scleral icterus, conjunctival injection, periorbital swelling ENT exam: Present: mucous membranes dry Neck exam: Present: normal inspection. Absent: tenderness, meningismus, lymphadenopathy Respiratory exam: Present: normal lung sounds bilaterally. Absent: respiratory distress, wheezes, rales, rhonchi, stridor Cardiovascular Exam: Present: regular rate, normal rhythm, normal heart sounds. Absent: systolic murmur, diastolic murmur, rubs, gallop, clicks GI/Abdominal exam: Present: soft, tenderness, normal bowel sounds, other (On her guarding no rebound no masses or bruits). Absent: distended, guarding, rebound, rigid Extremities exam: Present: normal inspection, full ROM, normal capillary refill. Absent: tenderness, pedal edema, joint swelling, calf tenderness Back exam: Present: normal inspection Neurological exam: Present: alert, oriented X3, CN II-XII intact Psychiatric exam: Present: normal affect, normal mood Skin exam: Present: warm, dry, intact, normal color. Absent: rash Course Vital Signs 11/21/19 11/21/19 11/21/19 12:26 14:15 15:16 Temperature 98.9 F Pulse Rate 88 66 69 Respiratory 16 18 19 Rate Blood Pressure 139/88 139/86 122/84 O2 Sat by Pulse 97 97 97 Oximetry Medical Decision Making - Medical Decision Making Patient finally get relief from her pain he is feeling much improved she'll be discharged home at her request she is follow-up with her doctor return when necessary - Lab Data Result diagrams: 11/21/19 13:10 11/21/19 13:10 Lab Results 11/21/19 11/21/19 11/21/19 Range/Units 13:10 13:10 13:10 WBC 9.4 (3.8-10.6) k/uL RBC 4.32 (3.80-5.40) m/uL Hgb 12.5 D (11.4-16.0) gm/dL Hct 38.5 (34.0-46.0) % MCV 89.2 (80.0-100.0) fL MCH 28.8 (25.0-35.0) pg MCHC 32.4 (31.0-37.0) g/dL RDW 13.5 (11.5-15.5) % Plt Count 325 (150-450) k/uL Neutrophils % 77 % Lymphocytes % 16 % Monocytes % 4 % Eosinophils % 2 % Basophils % 0 % Neutrophils # 7.3 (1.3-7.7) k/uL Lymphocytes # 1.5 (1.0-4.8) k/uL Monocytes # 0.4 (0-1.0) k/uL Eosinophils # 0.2 (0-0.7) k/uL Basophils # 0.0 (0-0.2) k/uL Sodium 137 (137-145) mmol/L Potassium 4.1 (3.5-5.1) mmol/L Chloride 107 (98-107) mmol/L Carbon Dioxide 18 L (22-30) mmol/L Anion Gap 12 mmol/L BUN 17 (7-17) mg/dL Creatinine 0.71 (0.52-1.04) mg/dL Est GFR (CKD-EPI)AfAm >90 (>60 ml/min/1.73 sqM) Est GFR (CKD-EPI)NonAf >90 (>60 ml/min/1.73 sqM) Glucose 124 H (74-99) mg/dL Plasma Lactic Acid Derek 1.1 (0.7-2.0) mmol/L Calcium 9.6 (8.4-10.2) mg/dL Total Bilirubin 0.3 (0.2-1.3) mg/dL AST 37 H (14-36) U/L ALT 40 H (4-34) U/L Alkaline Phosphatase 88 (38-126) U/L Creatine Kinase 59 (30-135) U/L Total Protein 7.2 (6.3-8.2) g/dL Albumin 4.2 (3.5-5.0) g/dL Amylase 49 (30-110) U/L Lipase 200 (23-300) U/L - Radiology Data Radiology results: report reviewed (I did review the imaging and report no acute findings.), image reviewed Disposition Clinical Impression: Abdominal pain Disposition: HOME SELF-CARE Condition: Good Instructions (If sedation given, give patient instructions): Abdominal Pain (ED) Is patient prescribed a controlled substance at d/c from ED?: No Referrals: Isac Calvin MD [Primary Care Provider] - 1-2 days
[2019-11-21 13:36] LABS: Basophils % (A) 0 %; Eosinophils # (A) 0.2 k/uL (0-0.7); Eosinophils % (A) 2 %; HCT 38.5 % (34.0-46.0); Lymphocytes # (A) 1.5 k/uL (1.0-4.8); Lymphocytes % (A) 16 %; MCH 28.8 pg (25.0-35.0); MCHC 32.4 g/dL (31.0-37.0); MCV 89.2 fL (80.0-100.0); Monocytes # (A) 0.4 k/uL (0-1.0); Monocytes % (A) 4 %; Neutrophils # (A) 7.3 k/uL (1.3-7.7); Neutrophils % (A) 77 %; Platelet Count 325 k/uL (150-450); RBC 4.32 m/uL (3.80-5.40); RDW 13.5 % (11.5-15.5); WBC 9.4 k/uL (3.8-10.6)
[2019-11-21 13:40] LABS: ALT 40 U/L (4-34); AST 37 U/L (14-36); African American GFR (CKD) >90 (>60 ml/min/1.73 sqM); Albumin 4.2 g/dL (3.5-5.0); Alkaline Phosphatase 88 U/L (38-126); Amylase 49 U/L (30-110); Anion Gap 12 mmol/L; Blood Urea Nitrogen 17 mg/dL (7-17); Calcium 9.6 mg/dL (8.4-10.2); Carbon Dioxide 18 mmol/L (22-30); Chloride 107 mmol/L (98-107); Creatine Kinase 59 U/L (30-135); Glucose 124 mg/dL (74-99); Non-African American GFR(CKD) >90 (>60 ml/min/1.73 sqM); Potassium 4.1 mmol/L (3.5-5.1); Sodium 137 mmol/L (137-145); Total Bilirubin 0.3 mg/dL (0.2-1.3); Total Protein 7.2 g/dL (6.3-8.2)
[2019-11-21 13:45] LABS: HGB 12.5 gm/dL (11.4-16.0)
--- NOTE | 2019-11-21 13:55 | XR ---
KUB HISTORY: Abdominal pain and vomiting Frontal KUB and 2 images correlated to prior KUB 06/13/2019 Post instrumentation changes are stable. No evident pneumoperitoneum or bowel obstruction. Calcificat ions in the left upper quadrant are indeterminate, question some postop change, there may be calcifie d diverticula also within the right hemipelvis. Bone mineralization is stable. Air-fluid levels are p resent without bowel distention. Lung bases are clear. IMPRESSION: Correlate for enteritis or ileus. Follow-up as indicated.
--- NOTE | 2019-11-21 14:34 | XR ---
EXAMINATION TYPE: XR chest 2V DATE OF EXAM: 11/21/2019 COMPARISON: Chest x-ray and CT September 09, 2019. HISTORY: Upper abdominal pain and vomiting. History of COPD. TECHNIQUE: Frontal and lateral views of the chest are obtained. FINDINGS: There is no focal air space opacity, pleural effusion, or pneumothorax seen. The cardiac silhouette size remains within normal limits. Partial visualization of surgical change in the lumbar spine. [place] osseous structures are demineralized. IMPRESSION: No suspicious acute pulmonary process.
[2019-11-21 15:18] VITALS: BP 122/84; PULSE 69; RESP 19
[2019-11-21] MEDS ORDERED: HYDROmorphone 1 MG/ML 1 ML SYRINGE IM STA (15:30)
== END 2019-11-21 16:05 | disposition home or self-care (01) ==
LOC: EC 12:23
DX: R10.10 Upper abdominal pain, unspecified (principal); K21.9 Gastro-esophageal reflux disease without esophagitis; K86.1 Other chronic pancreatitis; I10 Essential (primary) hypertension; M06.9 Rheumatoid arthritis, unspecified; I25.2 Old myocardial infarction; M81.0 Age-related osteoporosis without current pathological fracture; Z79.890 Hormone replacement therapy; Z79.891 Long term (current) use of opiate analgesic; Z79.899 Other long term (current) drug therapy; Z87.891 Personal history of nicotine dependence; Z90.49 Acquired absence of other specified parts of digestive tract; Z98.890 Other specified postprocedural states; Z87.19 Personal history of other diseases of the digestive system; Z86.73 Personal history of transient ischemic attack (TIA), and cerebral infarction without residual deficits
CPT/HCPCS: 36415; 80053; 82150; 82550; 83605; 83690; 85025; 71046; 74018; 96374; 96375; 96376; 96372; 96361 ×3; 99284; J2550; J1170

== ENCOUNTER 2019-12-02 13:21 | Emergency (ER) | payer BC ==
[2019-12-02 13:25] VITALS: RESP 18
[2019-12-02] MEDS ORDERED: ONDANSETRON ODT 4 MG TAB PO STA (13:25)
[2019-12-02] MEDS ORDERED: MORPHINE SULFATE 4 MG/ML SYRINGE IV STA (13:34)
[2019-12-02] MEDS ORDERED: SODIUM CHLORIDE 0.9% 1,000 ML IV STA ×2 (13:34)
[2019-12-02] MEDS ORDERED: PROMETHAZINE 25 MG TAB PO STA (13:38)
--- NOTE | 2019-12-02 13:40 | ED ---
Abdominal Pain HPI - General Chief Complaint: Abdominal Pain Stated Complaint: pancreatitis Time Seen by Provider: 12/02/19 13:27 Source: patient, RN notes reviewed, old records reviewed Mode of arrival: ambulatory Limitations: no limitations - History of Present Illness Initial Comments: Patient is a 64-year-old female who presents emergency Department today with complaints of epigastric and left-sided abdominal pain. Patient reports that it seems similar to previous pancreatitis flareups. She's been having symptoms for the past 4 days. Patient states that she has had no fevers or chills. She denies any cough or congestion. She also complains of some diarrhea. - Related Data Home Medications Medication Instructions Recorded Confirmed Estrogen,Con/M-Progest Acet 1 tab PO DAILY 05/31/19 09/09/19 [Prempro 0.3 mg-1.5 mg Tablet] amLODIPine BESYLATE/BENAZEPRIL 1 cap PO DAILY 05/31/19 09/09/19 [Lotrel 2.5-10 MG] traMADol HCl [Ultram] 100 mg PO TID 05/31/19 09/09/19 Atorvastatin [Lipitor] 40 mg PO HS 09/08/19 09/09/19 Diphenox-Atrop 2.5-0.025 mg 1 tab PO QID PRN 09/08/19 09/09/19 [Lomotil] Gabapentin 800 mg PO QID 09/08/19 09/09/19 HYDROcodone/APAP 7.5-325MG [[place] 1 tab PO BID 09/08/19 09/09/19 7.5-325] Omeprazole 20 mg PO DAILY 09/08/19 09/09/19 metFORMIN HCL [Glucophage] 500 mg PO DAILY 09/08/19 09/09/19 Previous Rx's Medication Instructions Recorded Promethazine Suppository 25 mg RECTAL QID PRN #20 supp 09/08/19 [Phenergan] Promethazine Suppository 25 mg RECTAL BID #12 supp 12/02/19 [Phenergan] Allergies Allergy/AdvReac Type Severity Reaction Status Date / Time No Known Allergies Allergy Verified 12/02/19 13:26 Review of Systems ROS Statement: Those systems with pertinent positive or pertinent negative responses have been documented in the HPI. ROS Other: All systems not noted in ROS Statement are negative. Past Medical History Past Medical History: Chest Pain / Angina, COPD, CVA/TIA, GERD/Reflux, Hypertension, Osteoarthritis (OA), Rheumatoid Arthritis (RA) Additional Past Medical History / Comment(s): admitted to [facility] on 02/18/18 with colitis/sepsis/R renal cyst. Other hx: Recurrent pancreatitis, bronchitis, TIA, anemia-unknown cause, migraines, ostoeporosis, past R femur fracture with surgery.past l2 compression fx, [place] sep 2019. History of Any Multi-Drug Resistant Organisms: None Reported Past Surgical History: Appendectomy, Back Surgery, Cholecystectomy, Orthopedic Surgery, Tonsillectomy Additional Past Surgical History / Comment(s): Pancreatic stents-since removed, 6 back surgeries with 2 fusions, right oophorectomy due to ectopic , EGD/colonoscopy, right leg alice inserted d/t fracture, Past Anesthesia/Blood Transfusion Reactions: No Reported Reaction Additional Past Anesthesia/Blood Transfusion Reaction / Comment(s): Pt has received blood in past without reaction. Past Psychological History: No Psychological Hx Reported Smoking Status: Former smoker Past Alcohol Use History: None Reported Past Drug Use History: None Reported - Past Family History Father Family Medical History: Cancer, Liver Disease Additional Family Medical History / Comment(s): Father was an alcoholic. He from lung/ liver cancer. Mother Family Medical History: Cancer, CVA/TIA, Hypertension Additional Family Medical History / Comment(s): Mother had breast and colon cancer. She of liver cancer at the age of 78 yrs. General Exam - General Exam Comments Initial Comments: Alert and oriented 64-year-old female. No significant distress. Limitations: no limitations General appearance: alert, in no apparent distress Head exam: Present: atraumatic, normocephalic, normal inspection Eye exam: Present: normal appearance, PERRL, EOMI. Absent: scleral icterus, conjunctival injection, periorbital swelling ENT exam: Present: normal exam, mucous membranes moist Neck exam: Present: normal inspection. Absent: tenderness, meningismus, ly mphadenopathy Respiratory exam: Present: normal lung sounds bilaterally. Absent: respiratory distress, wheezes, rales, rhonchi, stridor Cardiovascular Exam: Present: regular rate, normal rhythm, normal heart sounds. Absent: systolic murmur, diastolic murmur, rubs, gallop, clicks GI/Abdominal exam: Present: soft, normal bowel sounds. Absent: distended, tenderness, guarding, rebound, rigid Extremities exam: Present: normal inspection, full ROM, normal capillary refill. Absent: tenderness, pedal edema, joint swelling, calf tenderness Back exam: Present: normal inspection Neurological exam: Present: alert, oriented X3, CN II-XII intact Psychiatric exam: Present: normal affect, normal mood Skin exam: Present: warm, dry, intact, normal color. Absent: rash Course Vital Signs 12/02/19 13:22 Temperature 98.8 F Pulse Rate 94 Respiratory 18 Rate Blood Pressure 142/85 O2 Sat by Pulse 99 Oximetry Medical Decision Making - Medical Decision Making 64-year-old female presents today for left upper abdominal pain. Patient has been having symptoms for the past 4 days. She has history of increased tightness. Patient's labwork or today was relatively unremarkable. Amylase and lipase are within normal limits. No signs for acute pancreatitis. Patient KUB and chest x-ray are also reviewed and negative. Patient also complains of some epigastric pain, discuss it seems likely related to gastritis. Patient advised to follow-up with her primary care doctor. All questions were answered - Lab Data Result diagrams: 12/02/19 13:54 12/02/19 13:54 Lab Results 12/02/19 12/02/19 12/02/19 Range/Units 13:54 13:54 13:54 WBC 5.9 (3.8-10.6) k/uL RBC 4.28 (3.80-5.40) m/uL Hgb 12.3 (11.4-16.0) gm/dL Hct 38.1 (34.0-46.0) % MCV 89.1 (80.0-100.0) fL MCH 28.8 (25.0-35.0) pg MCHC 32.3 (31.0-37.0) g/dL RDW 13.8 (11.5-15.5) % Plt Count 358 (150-450) k/uL Neutrophils % 62 % Lymphocytes % 30 % Monocytes % 4 % Eosinophils % 2 % Basophils % 0 % Neutrophils # 3.6 (1.3-7.7) k/uL Lymphocytes # 1.7 (1.0-4.8) k/uL Monocytes # 0.3 (0-1.0) k/uL Eosinophils # 0.1 (0-0.7) k/uL Basophils # 0.0 (0-0.2) k/uL PT 9.9 (9.0-12.0) sec INR 0.9 (<1.2) APTT 22.5 (22.0-30.0) sec Sodium 140 (137-145) mmol/L Potassium 3.6 (3.5-5.1) mmol/L Chloride 109 H (98-107) mmol/L Carbon Dioxide 20 L (22-30) mmol/L Anion Gap 11 mmol/L BUN 11 (7-17) mg/dL Creatinine 0.64 (0.52-1.04) mg/dL Est GFR (CKD-EPI)AfAm >90 (>60 ml/min/1.73 sqM) Est GFR (CKD-EPI)NonAf >90 (>60 ml/min/1.73 sqM) Glucose 221 H (74-99) mg/dL Calcium 9.8 (8.4-10.2) mg/dL Total Bilirubin 0.1 L (0.2-1.3) mg/dL AST 26 (14-36) U/L ALT 24 (4-34) U/L Alkaline Phosphatase 80 (38-126) U/L Total Protein 6.8 (6.3-8.2) g/dL Albumin 4.0 (3.5-5.0) g/dL Amylase 31 (30-110) U/L Lipase 104 (23-300) U/L Disposition Clinical Impression: Abdominal pain Disposition: HOME SELF-CARE Condition: Good Instructions (If sedation given, give patient instructions): Abdominal Pain (ED) Additional Instructions: Please use medication as discussed. Please follow up with family doctor if symptoms have not improved over the next two days. Please return to the emergency room if your symptoms increase or worsen or for any other concerns. Prescriptions: Promethazine Suppository [Phenergan] 25 mg RECTAL BID #12 supp Is patient prescribed a controlled substance at d/c from ED?: No Referrals: Isac Calvin MD [Primary Care Provider] - 1-2 days Time of Disposition: 15:11
--- NOTE | 2019-12-02 14:18 | XR ---
EXAMINATION TYPE: XR chest 2V DATE OF EXAM: 12/02/2019 COMPARISON: 11/21/2019 HISTORY: Shortness of breath TECHNIQUE: Frontal and lateral views of the chest are obtained. FINDINGS: Scattered senescent parenchymal changes noted. Hyperinflation compatible with COPD. No evidence for infiltrate. No evidence for atelectasis. Heart size is stable. Mediastinal structures are stable and grossly unremarkable. No evidence for hilar prominence. Degenerative changes dorsal spine. IMPRESSION: 1. No evidence for acute pulmonary disease.
--- NOTE | 2019-12-02 14:20 | XR ---
EXAMINATION TYPE: XR KUB DATE OF EXAM: 12/02/2019 COMPARISON: NONE HISTORY: Pain TECHNIQUE: Single supine KUB image of the abdomen is obtained FINDINGS: Small bowel demonstrates no evidence for dilatation or air fluid levels. Gas and fecal material is seen in non-distended colon. No convincing evidence for pneumoperitoneum. No unusual calcifications. The lung bases are clear. Postoperative changes lumbar spine. IMPRESSION: 1. Overall nonobstructive bowel gas pattern.
[2019-12-02 14:36] LABS: Basophils % (A) 0 %; Eosinophils # (A) 0.1 k/uL (0-0.7); Eosinophils % (A) 2 %; HCT 38.1 % (34.0-46.0); HGB 12.3 gm/dL (11.4-16.0); Lymphocytes # (A) 1.7 k/uL (1.0-4.8); Lymphocytes % (A) 30 %; MCH 28.8 pg (25.0-35.0); MCHC 32.3 g/dL (31.0-37.0); MCV 89.1 fL (80.0-100.0); Mean Platelet Volume 7.3; Monocytes # (A) 0.3 k/uL (0-1.0); Monocytes % (A) 4 %; Neutrophils # (A) 3.6 k/uL (1.3-7.7); Neutrophils % (A) 62 %; Platelet Count 358 k/uL (150-450); RBC 4.28 m/uL (3.80-5.40); RDW 13.8 % (11.5-15.5); WBC 5.9 k/uL (3.8-10.6)
[2019-12-02 14:45] LABS: ALT 24 U/L (4-34); AST 26 U/L (14-36); African American GFR (CKD) >90 (>60 ml/min/1.73 sqM); Alkaline Phosphatase 80 U/L (38-126); Amylase 31 U/L (30-110); Anion Gap 11 mmol/L; Blood Urea Nitrogen 11 mg/dL (7-17); Calcium 9.8 mg/dL (8.4-10.2); Carbon Dioxide 20 mmol/L (22-30); Chloride 109 mmol/L (98-107); Glucose 221 mg/dL (74-99); Non-African American GFR(CKD) >90 (>60 ml/min/1.73 sqM); Potassium 3.6 mmol/L (3.5-5.1); Sodium 140 mmol/L (137-145); Total Bilirubin 0.1 mg/dL (0.2-1.3); Total Protein 6.8 g/dL (6.3-8.2)
[2019-12-02] MEDS ORDERED: PANTOPRAZOLE 40 MG/10 ML VIAL IVP STA (14:47)
[2019-12-02 14:52] LABS: INR 0.9 (<1.2); Partial Thromboplastin Time 22.5 sec (22.0-30.0); Prothrombin Time 9.9 sec (9.0-12.0)
[2019-12-02] MEDS ORDERED: MORPHINE SULFATE 4 MG/ML SYRINGE IVP STA (15:13)
[2019-12-02 15:37] VITALS: BP 111/90; PULSE 70; TEMP 98.1
[2019-12-02 15:41] LABS: Appearance,Urine Cloudy (Clear); Bacteria,Urine Rare /hpf; Bilirubin,Urine Negative (Negative); Blood,Urine Moderate (Negative); Calcium Oxalate Crystals,Urine Occasional /hpf; Color,Urine Yellow; Glucose,Urine (UA) Negative (Negative); Hyaline Casts,Urine 1 /lpf (0-2); Ketones,Urine Negative (Negative); Leukocyte Esterase,Urine Small (Negative); Mucus,Urine Rare /hpf; Nitrite,Urine Negative (Negative); PH, Urine 5.5 (5.0-8.0); Protein,Urine Trace (Negative); RBC,Urine 6 /hpf (0-5); Squamous Epithelial Cell,Urine 2 /hpf (0-4); Urobilinogen,Urine <2.0 mg/dL (<2.0); WBC,Urine 4 /hpf (0-5)
== END 2019-12-02 15:20 | disposition home or self-care (01) ==
LOC: EC 13:21
DX: R10.12 Left upper quadrant pain (principal); R10.13 Epigastric pain; R19.7 Diarrhea, unspecified; K21.9 Gastro-esophageal reflux disease without esophagitis; I10 Essential (primary) hypertension; Z79.84 Long term (current) use of oral hypoglycemic drugs; Z79.899 Other long term (current) drug therapy; Z87.891 Personal history of nicotine dependence; Z86.73 Personal history of transient ischemic attack (TIA), and cerebral infarction without residual deficits; Z90.89 Acquired absence of other organs; Z90.49 Acquired absence of other specified parts of digestive tract
CPT/HCPCS: 36415; 80053; 82150; 83690; 85025; 85610; 85730; 81001; 71046; 74018; 99284; 96374; 96375; 96376; 96361; J2270; C9113

== ENCOUNTER 2019-12-08 14:57 | Emergency (ER) | payer BC ==
[2019-12-08] MEDS ORDERED: ONDANSETRON 4 MG/2 ML VIAL IVP STA (15:15)
[2019-12-08] MEDS ORDERED: SODIUM CHLORIDE 0.9% 500 ML 500 ML IV STA (15:15)
--- NOTE | 2019-12-08 15:17 | ED ---
General Adult HPI - General Chief complaint: Abdominal Pain Stated complaint: Abd Pain, Nausea Time Seen by Provider: 12/08/19 15:01 Source: patient Mode of arrival: ambulatory Limitations: no limitations - History of Present Illness Initial comments: Dictation was produced using GTRAN dictation software. please excuse any grammatical, word or spelling errors. This patient was cared for during a federal and state declared state of emergency secondary to Covid 19 Chief Complaint: 64-year-old female presents with nausea vomiting and diarrhea for one month. History of Present Illness: 64-year-old female she has past medical history of chronic pain, COPD hypertension rheumatoid arthritis. For the last month patient has been suffering from nausea vomiting and diarrhea. Patient has been having, pain as well. She states that her pain is constant and severe. She saw her primary care physician early this morning he was told to come to the emergency department for medical evaluation. Patient has any constitutional symptoms. She has history of cholecystectomy and appendectomy. She also has history of pancreatitis. States that her pain is in the epigastric region. Denies any radiation of symptoms. She states that the pain is severe. She is having difficulty tolerating oral. She was prescribed Lomotil by her primary care physician. She states it has not been working. The ROS documented in this emergency department record has been reviewed and confirmed by me. Those systems with pertinent positive or negative responses have been documented in the HPI. All other systems are other negative and/or noncontributory. PHYSICAL EXAM: General Impression: Alert and oriented x3, not in acute distress HEENT: Normocephalic atraumatic, extra-ocular movements intact, pupils equal and reactive to light bilaterally, mucous membranes moist. Cardiovascular: Heart regular rate and rhythm, S1&S2 audible, no murmurs, rubs or gallops Chest: Able to complete full sentences, no retractions, no respiratory distress Abdomen: Bowel sounds present, abdomen soft, mild tenderness to the epigastric area Musculoskeletal: Pulses present and equal in all extremities, no peripheral edema Motor: no focal deficits noted Neurological: CN II-XII grossly intact, no focal motor or sensory deficits noted Skin: Intact with no visualized rashes Psych: Normal affect and mood ED course: 64-year-old female presents with 1 month of GI symptoms. Vital signs upon arrival shows temperature 90.8, rest of vital signs within acceptable limits. Patient's well-appearing at bedside. She is not in any sort of distress. Laboratory evaluation obtained. CBC, metabolic panel is unremarkable. Very mild elevation of liver markers concerning for alcoholism. Chest x-ray with abdominal x-ray shows no acute processes. Patient reevaluated bedside is well- appearing. Patient given by mouth analgesia. Patient discharged with instructions to follow-up with primary care physician. Patient given starter pack for analgesia and antiemetic. EKG interpretation: Ventricular rate 83, normal sinus rhythm,. Interval 146, QRS 76, QTC 493. No DE prolongation, no QTC prolongation, no ST or T-wave changes noted. EKG compared to 09/19/2019 showing no changes. Overall, this EKG is unremarkable - Related Data Home Medications Medication Instructions Recorded Confirmed Estrogen,Con/M-Progest Acet 1 tab PO DAILY 05/31/19 09/09/19 [Prempro 0.3 mg-1.5 mg Tablet] amLODIPine BESYLATE/BENAZEPRIL 1 cap PO DAILY 05/31/19 09/09/19 [Lotrel 2.5-10 MG] traMADol HCl [Ultram] 100 mg PO TID 05/31/19 09/09/19 Atorvastatin [Lipitor] 40 mg PO HS 09/08/19 09/09/19 Diphenox-Atrop 2.5-0.025 mg 1 tab PO QID PRN 09/08/19 09/09/19 [Lomotil] Gabapentin 800 mg PO QID 09/08/19 09/09/19 HYDROcodone/APAP 7.5-325MG [[place] 1 tab PO BID 09/08/19 09/09/19 7.5-325] Omeprazole 20 mg PO DAILY 09/08/19 09/09/19 metFORMIN HCL [Glucophage] 500 mg PO DAILY 09/08/19 09/09/19 Previous Rx's Medication Instructions Recorded Promethazine Suppository 25 mg RECTAL QID PRN #20 supp 09/08/19 [Phenergan] Promethazine Suppository 25 mg RECTAL BID #12 supp 12/02/19 [Phenergan] Allergies Allergy/AdvReac Type Severity Reaction Status Date / Time No Known Allergies Allergy Verified 12/08/19 15:00 Review of Systems ROS Statement: Those systems with pertinent positive or pertinent negative responses have been documented in the HPI. ROS Other: All systems not noted in ROS Statement are negative. Past Medical History Past Medical History: Chest Pain / Angina, COPD, CVA/TIA, GERD/Reflux, Hypertension, Osteoarthritis (OA), Rheumatoid Arthritis (RA) Additional Past Medical History / Comment(s): admitted to [facility] on 02/18/18 with colitis/sepsis/R renal cyst. Other hx: Recurrent pancreatitis, bronchitis, TIA, anemia-unknown cause, migraines, ostoeporosis, past R femur fracture with surgery.past l2 compression fx, [place] sep 2019. History of Any Multi-Drug Resistant Organisms: None Reported Past Surgical History: Appendectomy, Back Surgery, Cholecystectomy, Orthopedic Surgery, Tonsillectomy Additional Past Surgical History / Comment(s): Pancreatic stents-since removed, 6 back surgeries with 2 fusions, right oophorectomy due to ectopic , EGD/colonoscopy, right leg alice inserted d/t fracture, Past Anesthesia/Blood Transfusion Reactions: No Reported Reaction Additional Past Anesthesia/Blood Transfusion Reaction / Comment(s): Pt has received blood in past without reaction. Past Psychological History: No Psychological Hx Reported Smoking Status: Former smoker Past Alcohol Use History: None Reported Past Drug Use History: None Reported - Past Family History Father Family Medical History: Cancer, Liver Disease Additional Family Medical History / Comment(s): Father was an alcoholic. He from lung/ liver cancer. Mother Family Medical History: Cancer, CVA/TIA, Hypertension Additional Family Medical History / Comment(s): Mother had breast and colon cancer. She of liver cancer at the age of 78 yrs. General Exam Limitations: no limitations Course Vital Signs 12/08/19 14:58 Temperature 99.8 F H Pulse Rate 75 Respiratory 20 Rate Blood Pressure 155/90 O2 Sat by Pulse 97 Oximetry Medical Decision Making - Lab Data Result diagrams: 12/08/19 15:36 12/08/19 15:36 Lab Results 12/08/19 12/08/19 12/08/19 Range/Units 15:36 15:36 15:36 WBC 6.3 (3.8-10.6) k/uL RBC 4.21 (3.80-5.40) m/uL Hgb 11.9 (11.4-16.0) gm/dL Hct 37.0 (34.0-46.0) % MCV 87.8 (80.0-100.0) fL MCH 28.3 (25.0-35.0) pg MCHC 32.2 (31.0-37.0) g/dL RDW 13.3 (11.5-15.5) % Plt Count 352 (150-450) k/uL Neutrophils % 71 % Lymphocytes % 21 % Monocytes % 5 % Eosinophils % 1 % Basophils % 0 % Neutrophils # 4.5 (1.3-7.7) k/uL Lymphocytes # 1.3 (1.0-4.8) k/uL Monocytes # 0.3 (0-1.0) k/uL Eosinophils # 0.1 (0-0.7) k/uL Basophils # 0.0 (0-0.2) k/uL Sodium 136 L (137-145) mmol/L Potassium 4.2 (3.5-5.1) mmol/L Chloride 103 (98-107) mmol/L Carbon Dioxide 24 (22-30) mmol/L Anion Gap 9 mmol/L BUN 11 (7-17) mg/dL Creatinine 0.58 (0.52-1.04) mg/dL Est GFR (CKD-EPI)AfAm >90 (>60 ml/min/1.73 sqM) Est GFR (CKD-EPI)NonAf >90 (>60 ml/min/1.73 sqM) Glucose 216 H (74-99) mg/dL Plasma Lactic Acid Derek 1.5 (0.7-2.0) mmol/L Calcium 9.5 (8.4-10.2) mg/dL Magnesium 1.9 (1.6-2.3) mg/dL Total Bilirubin 0.2 (0.2-1.3) mg/dL AST 46 H (14-36) U/L ALT 39 H (4-34) U/L Alkaline Phosphatase 90 (38-126) U/L Total Protein 7.1 (6.3-8.2) g/dL Albumin 4.2 (3.5-5.0) g/dL Lipase 158 (23-300) U/L Disposition Clinical Impression: Gastroenteritis Disposition: HOME SELF-CARE Condition: Good Is patient prescribed a controlled substance at d/c from ED?: No Referrals: Isac Calvin MD [Primary Care Provider] - 1-2 days Time of Disposition: 16:31
[2019-12-08 15:55] LABS: Basophils % (A) 0 %; Eosinophils # (A) 0.1 k/uL (0-0.7); Eosinophils % (A) 1 %; HGB 11.9 gm/dL (11.4-16.0); Lymphocytes # (A) 1.3 k/uL (1.0-4.8); Lymphocytes % (A) 21 %; MCH 28.3 pg (25.0-35.0); MCHC 32.2 g/dL (31.0-37.0); MCV 87.8 fL (80.0-100.0); Monocytes # (A) 0.3 k/uL (0-1.0); Monocytes % (A) 5 %; Neutrophils # (A) 4.5 k/uL (1.3-7.7); Neutrophils % (A) 71 %; Platelet Count 352 k/uL (150-450); RBC 4.21 m/uL (3.80-5.40); RDW 13.3 % (11.5-15.5); WBC 6.3 k/uL (3.8-10.6)
[2019-12-08 16:00] LABS: ALT 39 U/L (4-34); AST 46 U/L (14-36); African American GFR (CKD) >90 (>60 ml/min/1.73 sqM); Albumin 4.2 g/dL (3.5-5.0); Alkaline Phosphatase 90 U/L (38-126); Anion Gap 9 mmol/L; Blood Urea Nitrogen 11 mg/dL (7-17); Calcium 9.5 mg/dL (8.4-10.2); Carbon Dioxide 24 mmol/L (22-30); Chloride 103 mmol/L (98-107); Glucose 216 mg/dL (74-99); Magnesium 1.9 mg/dL (1.6-2.3); Non-African American GFR(CKD) >90 (>60 ml/min/1.73 sqM); Potassium 4.2 mmol/L (3.5-5.1); Sodium 136 mmol/L (137-145); Total Bilirubin 0.2 mg/dL (0.2-1.3); Total Protein 7.1 g/dL (6.3-8.2)
--- NOTE | 2019-12-08 16:29 | XR ---
EXAMINATION TYPE: XR abdomen acute w cxr DATE OF EXAM: 12/08/2019 COMPARISON: April 13, 2018 HISTORY: Pain TECHNIQUE: Single view of the chest and 2 views of the abdomen are submitted. FINDINGS: Single view of the chest fails demonstrate evidence for acute pulmonary disease. There is no evidence for pneumoperitoneum. The bowel gas pattern is unremarkable as there is air throughout nondilated small and large bowel. No sizeable air fluid levels.No mass effects are seen. No unusual calcifications. Postoperative changes lumbar spine. IMPRESSION: 1. No evidence for acute pulmonary disease. 2. No evidence for obstructive change.
[2019-12-08] MEDS ORDERED: ONDANSETRON 4 MG ODT STARTER PACK 2 TAB BTL PO STA (16:31)
[2019-12-08] MEDS ORDERED: ACET/COD 300 MG/30 MG STARTER PACK 6 TAB BTL PO STA (16:31)
[2019-12-08] MEDS ORDERED: MORPHINE SULFATE 4 MG/ML SYRINGE IV STA (16:31)
[2019-12-08 16:52] VITALS: BP 148/94; PULSE 88; RESP 18; TEMP 99.2
== END 2019-12-08 17:10 | disposition home or self-care (01) ==
LOC: EC 14:57
DX: K52.9 Noninfective gastroenteritis and colitis, unspecified (principal); K21.9 Gastro-esophageal reflux disease without esophagitis; I10 Essential (primary) hypertension; Z79.84 Long term (current) use of oral hypoglycemic drugs; Z79.899 Other long term (current) drug therapy; Z87.891 Personal history of nicotine dependence; Z86.73 Personal history of transient ischemic attack (TIA), and cerebral infarction without residual deficits; Z90.49 Acquired absence of other specified parts of digestive tract; Z90.89 Acquired absence of other organs
CPT/HCPCS: 36415; 93005; 80053; 83605; 83690; 83735; 85025; 74022; 99284; 96374; 96375; 96361; J2270; J2405; S0119

== ENCOUNTER 2019-12-11 10:26 | Inpatient (IN) | payer BC ==
[2019-12-11] MEDS ORDERED: ONDANSETRON 4 MG/2 ML VIAL IVP PRN (13:37)
[2019-12-11] MEDS: IOPAMIDOL CONTRAST (ORAL USE) VIAL PO PRN ×2 (13:53→14:53)
[2019-12-11] MEDS ORDERED: BUTALB/APAP/CAFF 50-325-40MG TAB PO PRN (14:26)
[2019-12-11] MEDS ORDERED: DIPHENOX-ATROP 2.5-0.025 MG 1 EACH TAB PO PRN (14:26)
[2019-12-11 14:32] LABS: Basophils % (A) 0 %; Eosinophils # (A) 0.1 k/uL (0-0.7); Eosinophils % (A) 2 %; HCT 38.5 % (34.0-46.0); Lymphocytes # (A) 2.3 k/uL (1.0-4.8); Lymphocytes % (A) 30 %; MCH 29.7 pg (25.0-35.0); MCHC 33.6 g/dL (31.0-37.0); MCV 88.2 fL (80.0-100.0); Mean Platelet Volume 6.9; Monocytes # (A) 0.5 k/uL (0-1.0); Monocytes % (A) 6 %; Neutrophils # (A) 4.6 k/uL (1.3-7.7); Neutrophils % (A) 60 %; Platelet Count 336 k/uL (150-450); RBC 4.37 m/uL (3.80-5.40); RDW 13.5 % (11.5-15.5); WBC 7.6 k/uL (3.8-10.6)
[2019-12-11 14:36] LABS: ALT 31 U/L (4-34); AST 21 U/L (14-36); African American GFR (CKD) >90 (>60 ml/min/1.73 sqM); Albumin 4.3 g/dL (3.5-5.0); Alkaline Phosphatase 79 U/L (38-126); Anion Gap 10 mmol/L; Blood Urea Nitrogen 10 mg/dL (7-17); Calcium 9.5 mg/dL (8.4-10.2); Carbon Dioxide 24 mmol/L (22-30); Chloride 104 mmol/L (98-107); Glucose 143 mg/dL (74-99); Non-African American GFR(CKD) >90 (>60 ml/min/1.73 sqM); Potassium 4.1 mmol/L (3.5-5.1); Sodium 138 mmol/L (137-145); Total Bilirubin 0.2 mg/dL (0.2-1.3); Total Protein 7.4 g/dL (6.3-8.2)
[2019-12-11] MEDS: HYDROmorphone 0.5 MG/0.5 ML SYRINGE IM PRN ×3 (14:47→21:17)
--- NOTE | 2019-12-11 16:02 | CT ---
EXAMINATION TYPE: CT abdomen pelvis wo con DATE OF EXAM: 12/11/2019 HISTORY: Generalized pain. CT DLP: 550.5 mGycm. Automated Exposure Control for Dose Reduction was Utilized. TECHNIQUE: CT scan of the abdomen and pelvis is performed with oral but without IV contrast. COMPARISON: CTA September 09, 2019 FINDINGS: Within the limitations of a non-contrast study, the following observations are made. LUNG BASES: No significant abnormality is appreciated. LIVER/GB: Cholecystectomy clips are redemonstrated. PANCREAS: Redemonstration of calcifications and ductal dilatation consistent with product of chronic pancreatitis. SPLEEN: No significant abnormality is seen. ADRENALS: No significant abnormality is seen. KIDNEYS: No significant abnormality is seen. BOWEL: Oral contrast reaches level of right colon making evaluation of distal bowel suboptimal. No cox spicious small or large bowel dilatation. Diverticula in the sigmoid colon are present without CT nate dence for acute diverticulitis. GENITAL ORGANS: Anteverted uterus. LYMPH NODES: No greater than 1cm abdominal or pelvic lymph nodes are appreciated. OSSEOUS STRUCTURES: Extensive surgical change to the low back redemonstrated. Redemonstration of ceme nt material L3 level extending to L2-L3 disc space. Redemonstration of moderate chronic compression f racture L2 level with posterior interpedicular screws extending into the L1-L2 disc space. Alignment is stable and straightened. Ossific fusion L5-S1 level redemonstrated. Postsurgical change right proximal femur partially imaged. New oval 2.9 x 2.3 x 3.3 cm low dense lesion right anterior pelvis with mass effect along the anterio r right bladder wall axial image 65 and coronal image 45 deep to the femoral artery and vein Hounsfie ld units average between 40 and 45 OTHER: Moderate calcified plaque of the aorta extends into branch vessels. IMPRESSION: 1. New oval 3.3 cm well-defined lesion anterior right pelvis with local mass effect on the bladder of uncertain etiology. Further workup is advised. Otherwise no suspicious new acute findings seen to ac count for patient's symptoms.
[2019-12-11] MEDS: CHOLESTYRAMINE (WITH SUGAR) 4 GM PACKET PO SCH ×2 (16:34→21:16)
[2019-12-11] MEDS: SUCRALFATE 1 GM TAB PO SCH ×2 (16:39→21:17)
[2019-12-11] MEDS: metroNIDAZOLE 500 MG TAB PO SCH ×2 (16:39→21:17)
[2019-12-11] MEDS: GABAPENTIN 400 MG CAP PO SCH ×2 (16:39→21:17)
[2019-12-11] MEDS: SODIUM CHLORIDE 0.9% 1,000 ML IV SCH ×2 (17:40→22:30)
[2019-12-11] MEDS: TICAGRELOR 90 MG TAB PO SCH (20:35)
[2019-12-11] MEDS: ATORVASTATIN 40 MG TAB PO SCH (20:35)
[2019-12-11] MEDS: HYDROcodone/APAP 10-325MG 1 EACH TAB PO PRN (23:59)
[2019-12-12] MEDS: HYDROmorphone 0.5 MG/0.5 ML SYRINGE IM PRN ×4 (00:37→10:16)
[2019-12-12 06:49] LABS: Basophils % (A) 0 %; Eosinophils # (A) 0.3 k/uL (0-0.7); Eosinophils % (A) 3 %; HCT 36.8 % (34.0-46.0); HGB 11.7 gm/dL (11.4-16.0); Lymphocytes # (A) 2.4 k/uL (1.0-4.8); Lymphocytes % (A) 28 %; MCH 28.5 pg (25.0-35.0); MCHC 31.9 g/dL (31.0-37.0); MCV 89.6 fL (80.0-100.0); Monocytes # (A) 0.5 k/uL (0-1.0); Monocytes % (A) 6 %; Neutrophils # (A) 5.3 k/uL (1.3-7.7); Neutrophils % (A) 61 %; Platelet Count 335 k/uL (150-450); RDW 13.6 % (11.5-15.5); WBC 8.6 k/uL (3.8-10.6)
[2019-12-12 07:03] LABS: Anion Gap 9 mmol/L; Blood Urea Nitrogen 7 mg/dL (7-17); Carbon Dioxide 24 mmol/L (22-30); Chloride 104 mmol/L (98-107); Glucose 143 mg/dL (74-99); Sodium 137 mmol/L (137-145)
[2019-12-12 07:04] LABS: ALT 30 U/L (4-34); AST 25 U/L (14-36); African American GFR (CKD) >90 (>60 ml/min/1.73 sqM); Albumin 3.6 g/dL (3.5-5.0); Alkaline Phosphatase 71 U/L (38-126); Calcium 9.2 mg/dL (8.4-10.2); Non-African American GFR(CKD) >90 (>60 ml/min/1.73 sqM); Total Bilirubin 0.1 mg/dL (0.2-1.3); Total Protein 6.3 g/dL (6.3-8.2)
[2019-12-12] MEDS: GABAPENTIN 400 MG CAP PO SCH ×3 (07:16→21:29)
[2019-12-12] MEDS: LISINOPRIL 10 MG TAB PO SCH (07:16)
[2019-12-12] MEDS: TICAGRELOR 90 MG TAB PO SCH ×2 (07:16→21:55)
[2019-12-12] MEDS: amLODIPine 2.5 MG TAB PO SCH (07:16)
[2019-12-12] MEDS: CHOLESTYRAMINE (WITH SUGAR) 4 GM PACKET PO SCH ×3 (07:16→21:30)
[2019-12-12] MEDS: SUCRALFATE 1 GM TAB PO SCH ×3 (07:16→21:30)
[2019-12-12] MEDS: METOPROLOL SUCCINATE (ER) 25 MG TAB.ER.24H PO SCH (07:16)
[2019-12-12] MEDS: metroNIDAZOLE 500 MG TAB PO SCH ×3 (07:16→21:30)
[2019-12-12] MEDS ORDERED: PANTOPRAZOLE 40 MG TABLET PO SCH (09:00)
--- NOTE | 2019-12-12 09:39 | P.GSCN ---
History of Present Illness History of present illness: HISTORY OF PRESENTING ILLNESS She is complaining of diarrhea and abdominal discomfort intermittently 2 weeks. She has persistent chronic diarrhea symptoms off and on. She is also having some mild nausea and states she vomited once. She has noticed bright blood in her stool at times at home, none here per nursing. REVIEW OF SYSTEMS At the time of my exam: CONSTITUTIONAL: Denies fever or chills. CARDIOVASCULAR: Denies chest pain, shortness of breath, orthopnea, PND or palpitations. RESPIRATORY: Denies cough. GASTROINTESTINAL: Complains of abdominal pain, nausea and diarrhea Denies constipation or vomiting. MUSCULOSKELETAL: Denies myalgias. NEUROLOGIC: Denies numbness, tingling or weakness. ENDOCRINE: Denies fatigue, weight change, polydipsia or polyurina. GENITOURINARY: Denies burning, hematuria or urgency with micturation. HEMATOLOGIC: Denies history of anemia or bleeding. PAST SURGICAL HISTORY See list PAST MEDICAL HISTORY See list MEDICATIONS See list PHYSICAL EXAMINATION Blood pressure 131/86 heart rate 62 afebrile and maintaining oxygen saturation on room air. CONSTITUTIONAL: No apparent distress. HEENT: Head is normocephalic. Pupils are equal, round. Sclerae anicteric. Mucous membranes of the mouth are moist. ABDOMEN: Soft, nontender. NEUROLOGIC EXAMINATION: Patient is awake, alert and oriented x3. DIAGNOSTICS CT abdomen/pelvic revealed a new 3.3 cm well-defined lesion in the anterior right pelvis with local mass effect on the bladder. Laboratory data reviewed, WBC 8.6, hgb 11.7, plt 335, AST 25, ALT 30 ASSESSMENT Chronic diarrhea Right anterior pelvic mass PLAN Obtain CT guided biopsy of the noted pelvic mass. Recommend colonoscopy as an outpatient for symptoms of diarrhea. Check amylase and lipase. Thank you kindly for this consultation. The above impression and plan of care have been discussed and directed by the signing physician. Maria Fernanda Nicole, nurse practitioner, acting as scribe for signing physician. Past Medical History Past Medical History: Chest Pain / Angina, COPD, CVA/TIA, GERD/Reflux, Hypertension, Osteoarthritis (OA), Rheumatoid Arthritis (RA) Additional Past Medical History / Comment(s): admitted to [facility] on 02/18/18 with colitis/sepsis/R renal cyst. Other hx: Recurrent pancreatitis, bronchitis, TIA, anemia-unknown cause, migraines, osteoporosis, past R femur fracture with surgery.past l2 compression fx, [place] sep 2019. History of Any Multi-Drug Resistant Organisms: None Reported Past Surgical History: Appendectomy, Back Surgery, Cholecystectomy, Orthopedic Surgery, Tonsillectomy Additional Past Surgical History / Comment(s): Pancreatic stents-since removed, 6 back surgeries with 2 fusions, right oophorectomy due to ectopic , EGD/colonoscopy, right leg alice inserted d/t fracture, Past Anesthesia/Blood Transfusion Reactions: No Reported Reaction Additional Past Anesthesia/Blood Transfusion Reaction / Comm: Pt has received blood in past without reaction. Past Psychological History: No Psychological Hx Reported Additional Psychological History / Comment(s): Pt resides with her spouse . Smoking Status: Former smoker Past Alcohol Use History: None Reported Additional Past Alcohol Use History / Comment(s): Pt started smoking in 1980 Past Drug Use History: None Reported - Past Family History Father Family Medical History: Cancer, Liver Disease Additional Family Medical History / Comment(s): Father was an alcoholic. He from lung/ liver cancer. Mother Family Medical History: Cancer, CVA/TIA, Hypertension Additional Family Medical History / Comment(s): Mother had breast and colon cancer. She of liver cancer at the age of 78 yrs. Medications and Allergies Home Medications Medication Instructions Recorded Confirmed Type amLODIPine BESYLATE/BENAZEPRIL 1 cap PO DAILY 05/31/19 12/11/19 History [Lotrel 2.5-10 MG] Atorvastatin [Lipitor] 40 mg PO HS 09/08/19 12/11/19 History Diphenox-Atrop 2.5-0.025 mg 1 tab PO TID PRN 09/08/19 12/11/19 History [Lomotil] Gabapentin 800 mg PO TID 09/08/19 12/11/19 History Omeprazole 20 mg PO DAILY 09/08/19 12/11/19 History metFORMIN HCL [Glucophage] 500 mg PO DAILY 09/08/19 12/11/19 History Butalb/APAP/Caff 50-325-40Mg 1 tab PO Q12H PRN 12/11/19 12/11/19 History [Fioricet 50-325-40] Cholestyramine (with Sugar) 4 gm PO TID 12/11/19 12/11/19 History [Questran] HYDROcodone/APAP 10-325MG [Hallam 1 tab PO QID PRN 12/11/19 12/11/19 History 10-325] Metoprolol Succinate [Toprol XL] 25 mg PO DAILY 12/11/19 12/11/19 History Ondansetron Odt [Zofran Odt] 4 mg PO Q8H PRN 12/11/19 12/11/19 History Sucralfate [Carafate] 1 gm PO TID 12/11/19 12/11/19 History Ticagrelor [Brilinta] 90 mg PO BID 12/11/19 12/11/19 History metroNIDAZOLE [Flagyl] 500 mg PO TID 12/11/19 12/11/19 History predniSONE See Taper PO DAILY 12/11/19 12/11/19 History Allergies Allergy/AdvReac Type Severity Reaction Status Date / Time No Known Allergies Allergy Verified 12/11/19 13:32 Surgical - Exam Vital Signs Temp Pulse Resp BP Pulse Ox 98.5 F 78 17 147/89 98 12/11/19 11:20 12/11/19 11:20 12/11/19 11:20 12/11/19 11:20 12/11/19 11:20 Results - Labs 12/12/19 06:06 12/12/19 06:06 Abnormal Lab Results - Last 24 Hours (Table) 12/11/19 12/12/19 Range/Units 13:59 06:06 Glucose 143 H 143 H (74-99) mg/dL Total Bilirubin 0.1 L (0.2-1.3) mg/dL Microbiology - Last 24 Hours (Table) 12/11/19 13:38 Stool Culture - Preliminary Stool Diabetes panel 12/11/19 12/12/19 Range/Units 13:59 06:06 Sodium 138 137 (137-145) mmol/L Potassium 4.1 4.0 (3.5-5.1) mmol/L Chloride 104 104 (98-107) mmol/L Carbon Dioxide 24 24 (22-30) mmol/L BUN 10 7 (7-17) mg/dL Creatinine 0.59 0.63 (0.52-1.04) mg/dL Glucose 143 H 143 H (74-99) mg/dL Calcium 9.5 9.2 (8.4-10.2) mg/dL AST 21 25 (14-36) U/L ALT 31 30 (4-34) U/L Alkaline Phosphatase 79 71 (38-126) U/L Total Protein 7.4 6.3 (6.3-8.2) g/dL Albumin 4.3 3.6 (3.5-5.0) g/dL Calcium panel 12/11/19 12/12/19 Range/Units 13:59 06:06 Calcium 9.5 9.2 (8.4-10.2) mg/dL Albumin 4.3 3.6 (3.5-5.0) g/dL Pituitary panel 12/11/19 12/12/19 Range/Units 13:59 06:06 Sodium 138 137 (137-145) mmol/L Potassium 4.1 4.0 (3.5-5.1) mmol/L Chloride 104 104 (98-107) mmol/L Carbon Dioxide 24 24 (22-30) mmol/L BUN 10 7 (7-17) mg/dL Creatinine 0.59 0.63 (0.52-1.04) mg/dL Glucose 143 H 143 H (74-99) mg/dL Calcium 9.5 9.2 (8.4-10.2) mg/dL Adrenal panel 12/11/19 12/12/19 Range/Units 13:59 06:06 Sodium 138 137 (137-145) mmol/L Potassium 4.1 4.0 (3.5-5.1) mmol/L Chloride 104 104 (98-107) mmol/L Carbon Dioxide 24 24 (22-30) mmol/L BUN 10 7 (7-17) mg/dL Creatinine 0.59 0.63 (0.52-1.04) mg/dL Glucose 143 H 143 H (74-99) mg/dL Calcium 9.5 9.2 (8.4-10.2) mg/dL Total Bilirubin 0.2 0.1 L (0.2-1.3) mg/dL AST 21 25 (14-36) U/L ALT 31 30 (4-34) U/L Alkaline Phosphatase 79 71 (38-126) U/L Total Protein 7.4 6.3 (6.3-8.2) g/dL Albumin 4.3 3.6 (3.5-5.0) g/dL
[2019-12-12 09:53] LABS: Amylase 38 U/L (30-110)
--- NOTE | 2019-12-12 11:01 | HP ---
HISTORY AND PHYSICAL DATE OF SERVICE: 12/11/2019 This is a 64-year-old white female admitted for dehydration, chronic diarrhea, nausea and vomiting for the past 2 weeks, worsening, unable to keep any liquids down and severe diarrhea and bright red blood in her diarrhea. She is lightheaded, dizzy, admitted for dehydration and GI and surgical consultation. REVIEW OF SYSTEMS: Fourteen-point review of systems negative except for mentioned above. SURGICAL HISTORY: As above. PAST MEDICAL HISTORY: Above. PHYSICAL EXAMINATION: Blood pressure 130s over 80s, respiratory rate 20, O2 is mid 90s on room air. CONSTITUTIONAL: She looks weak and fatigued. INTEGUMENT: Dry skin, turgor. Dry mucous membranes. CARDIOVASCULAR: S1, S2. LUNGS: Transmitted upper airway sounds. HEMATOLOGY: Negative Homans. PSYCH: Fair mood and affect. CT abdomen and pelvis are ordered, which shows a 3.3 cm lesion in the right pelvis with possible pushing on the bladder. ASSESSMENT: 1. Chronic diarrhea. 2. Some kind of pelvic mass. 3. Dehydration. 4. History of cerebrovascular accident, transient ischemic attack. 5. Chronic obstructive pulmonary disease. 6. Angina. 7. Hypertension. 8. Osteoarthritis. 9. Rheumatoid arthritis. 10.Migraines. PLAN: Surgical consultation possible urology consultation. SURGICAL HISTORY: Appendectomy, back surgery, cholecystectomy, orthopedic surgery, tonsillectomy, history of ectopic , alice inserted in her right leg for fractures, pancreatic stent since removed, 6 back surgeries, 2 fusions. FAMILY HISTORY: Mother CVA, TIA, cancer. Father cancer, liver disease. Mom had breast and colon cancer. MEDICATIONS: As mentioned above. PLAN: Await for surgical consultation. Rehydrate. Please see further orders. MMODL / IJN: [id number] /
[2019-12-12 11:57] LABS: Glucose,Whole Blood 152 mg/dL (75-99)
[2019-12-12] MEDS: LIPASE 5,000/PROTEASE 17,000/AMYLASE 24,000 PO SCH ×2 (12:44→18:20)
[2019-12-12] MEDS: HYDROmorphone 0.5 MG/0.5 ML SYRINGE IVP PRN ×4 (13:29→22:50)
--- NOTE | 2019-12-12 13:33 | P.CN ---
Psychiatric Consult - . Consult date: 12/12/19 Consult:: 12/12/19 13:25 IDENTIFYING DATA: This patient is a 64-year-old female currently lives with her and son and is supported by her HISTORY OF PRESENT ILLNESS: The patient presented to the hospital as a direct admission by her primary care physician. Patient was complaining of abdominal pain, diarrhea and nausea and vomiting for the past 2-3 weeks. Psychiatry is consulted for anxiety and depression. Patient stated that she has been feeling mildly better in terms of her presenting symptoms as she is in the hospital. She claims that she is being followed by surgery and had a computed tomography scan done which showed a "spot in my pelvis". Patient states that she has been dealing with several stressors lately including her recently being laid off from work and states that "he is driving me crazy". She also claims that she has lost a good friend of hers to cancer recently. She also spoke about feeling mildly depressed related to her pain and her medical condition. Patient also spoke about having some anxiety related to her son going through a divorce with his ex-. She states that her sleep has been poor recently however slept well last night. She states that her appetite is fair and her energy level is fair. She denied any manic symptoms at this time. At this time patient denies any suicidal or homical ideations, intent or plan. Patient denies any auditory, visual hallucinations and denies any paranoia or delusions. Patients admits to quitting cigarette smoking 4 months ago. PAST PSYCHIATRIC HISTORY: Patient denies any history of depression or anxiety and denies any psychiatric outpatient follow-up or any mental health admissions or suicide attempts in the past. PAST MEDICAL HISTORY: Chest pain/angina, COPD, history of CVA, GERD, hypertension, osteo-and rheumatoid arthritis.. ALLERGIES: as per EMR. CHEMICAL DEPENDENCY HISTORY: as per HPI. FAMILY PSYCHIATRIC/SUBSTANCE USE HISTORY: States that her brother has OCD SOCIAL HISTORY: She states that she was born in [place] and moved to the [place] when she was 13 years old and states they have lived in [place] and moved to [place]. She claims to have completed high school. 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 She currently lives with her who supports her and her adult son. MENTAL STATUS EXAM: General Appearance: Patient appears to be stated age is alert, pleasant, and cooperative. Patient appears to have fair hygiene and grooming wearing hospital gown with fair eye contact. Behavior: Patient is calmly lying in bed without any agitated behavior. Cooperative. Speech: Patient's speech is fluent and nonpressured. Mood/Affect: Patient reports their mood is "depressed and anxious at times", affect is congruent Suicidality/Homicidality: Patient denies having any suicidal or homicidal ideation intent or plan. Perceptions: Patient denies any visual hallucinations and denies any auditory hallucinations Though content/process: There is no evidence of any delusional thought content and thought process is linear and goal-directed. Future oriented. Memory and concentration: AOX3, grossly intact for the purposes of this session. Can spell "WORLD" backwards Judgment and insight: Fair IMPRESSIONS: Major depressive disorder, mild Anxiety disorder unspecified PLAN: -At this time patient DOES NOT meet criteria for inpatient psychiatric admission. -Would recommend the following medication changes/additions: Remeron 15 mg daily at bedtime for mood/anxiety/sleep. Also started BuSpar 7.5 mg twice a day for anxiety, this can be titrated up if needed. -Patient should receive outpatient mental health resources prior to discharge for follow-up. -Psychiatry will sign off at this point, please contact with any questions.
--- NOTE | 2019-12-12 14:43 | P.PN ---
Subjective Progress Note Date: 12/12/19 64-year-old female admitted with multiple medical issues including nausea vomiting, chronic diarrhea, dehydration. Maintained on gentle IV fluid hydration. Tolerating clear liquids well with no nausea, vomiting or diarrhea. Requesting diet advancement. Soft formed bowel movement this morning with no further blood in stools since admission. Hemoglobin 11.7. Complains of left flank pain.CT abdomen/pelvic revealed a new 3.3 cm well-defined lesion in the anterior right pelvis with local mass effect on the bladder.Evaluated by both surgery and GI with recommendations noted and appreciated. Surgery recommended CT-guided biopsy, which would require holding of Brilenta X 7 days. Creon added to med regime with outpatient colonoscopy recommended per GI. Psychiatry consult in place with recommendations noted. Afebrile. Lipase minimally elevated, 376. C. difficile negative, stool cultures in progress. Objective - Vital Signs Vital signs: Vital Signs Temp 98.1 F 12/12/19 10:45 Pulse 61 12/12/19 10:45 Resp 16 12/12/19 10:45 BP 148/84 12/12/19 10:45 Pulse Ox 98 12/12/19 10:45 Intake & Output 12/11/19 12/12/19 12/12/19 18:59 06:59 18:59 Intake Total 240 1200 Output Total 60 Balance 180 1200 Weight 63.639 kg Intake: Intake, IV Titration 800 Amount Sodium Chloride 0.9% 1, 800 000 ml @ 75 mls/hr IV . [id number] JOLLY Rx#:[id number] Oral 240 400 Output: Emesis 60 Other: Voiding Method Toilet Toilet # Voids 1 # Bowel Movements 1 - Exam PHYSICAL EXAM: VITAL SIGNS: [As above] GENERAL: Sitting up in bed, no acute distress HEENT: Conjunctivae normal. eyes normal. NECK: No JVD. No thyroid enlargement. No LNs CARDIOVASCULAR: S1, S2 regular.. No murmur RESPIRATION: Breath sounds diminished in the bases. No rhonchi or crackles. ABDOMEN: Soft, nontender . Diffuse left flank tenderness, No guarding. no masses palpable.Bowel sounds heard. LEGS: No edema. no swelling PSYCHIATRY: Alert and oriented X3, mood and affect normal. NERVOUS SYSTEM: Cranial N 2-12 grossly normal. No focal deficits. Strength and sensation grossly intact.. Skin: no rash - Labs CBC & Chem 7: 12/12/19 06:06 12/12/19 06:06 Labs: Abnormal Lab Results - Last 24 Hours (Table) 12/11/19 12/12/19 12/12/19 Range/Units 13:59 06:06 06:06 Glucose 143 H 143 H (74-99) mg/dL POC Glucose (mg/dL) (75-99) mg/dL Total Bilirubin 0.1 L (0.2-1.3) mg/dL Lipase 376 H (23-300) U/L 12/12/19 Range/Units 11:43 Glucose (74-99) mg/dL POC Glucose (mg/dL) 152 H (75-99) mg/dL Total Bilirubin (0.2-1.3) mg/dL Lipase (23-300) U/L Microbiology - Last 24 Hours (Table) 12/11/19 13:38 Stool Culture - Preliminary Stool Assessment and Plan Assessment: Left flank pain, CT reporting right anterior pelvic mass, surgery following. Dehydration Doubt pancreatitis, lipase only 376 patient with history of pancreatic stent- removed Chronic diarrhea, outpatient colonoscopy Depression Anxiety disorder, unspecified History of recent CVA in September 2019, on Brilenta COPD, stable Hypertension History of migraines Rheumatoid arthritis Osteoarthritis Multiple back surgeries Former nicotine dependence Plan: Continue on current medication regime, monitoring and symptomatically treatment. Pain management. GI and surgery recommendations noted; outpatient CT-guided biopsy/colonoscopy. Brilenta will nned to be held x 7 days prior. Diet advanced to soft. Psych consult in place with recommendations pending. Discharge planning in progress for tomorrow. The impression and plan of care has been dictated as directed. : I performed a history and examination of this patient, discussed the same with the dictator. I agree with the dictator's note ,documented as a scribe. Any additional findings or plans will be noted.
[2019-12-12] MEDS: busPIRone HCl 5 MG TAB PO SCH ×2 (15:21→21:36)
[2019-12-12] MEDS: PANTOPRAZOLE 40 MG TABLET PO SCH (16:58)
--- NOTE | 2019-12-12 18:11 | P.CONS ---
History of Present Illness - Reason for Consult Consult date: 12/12/19 Abdominal pain, diarrhea, chronic pancreatitis Requesting physician: Isac Calvin - Chief Complaint Nausea, vomiting and diarrhea - History of Present Illness 64-year-old female with multiple medical comorbidities including COPD, rheumatoid arthritis, hypertension, anxiety and depression, chronic diarrhea and chronic pancreatitis or presented to the hospital with complaints of nausea, vomiting and diarrhea. Patient has chronic symptoms but reports a been worse over the past few weeks. She reports frequent episodes of loose bowel movements proximally 5-8 times per day occurring over this time. She previously noted a small amount of blood with wiping. She has also had nausea and vomiting. The patient's previously underwent endoscopic ultrasound and ERCP per medical records approximately 8-9 years ago at [facility]. She is a diagnosis of chronic pancreatitis and recurrent acute pancreatitis. She denies any history of alcohol abuse. She previously had a cholecystectomy. On current presentation testing for Clostridium difficile was negative, lipase 376, total bilirubin 0.1, alkaline phosphatase 71, AST 25, ALP 30, hemoglobin 11.7, WBC 8.6, platelet count 335,000. She reports last colonoscopy approximately 5 years ago per her recollection and significant for polypectomy. Review of Systems REVIEW OF SYSTEMS: CONSTITUTIONAL: Denies any fevers, chills, weight change or fatigue. CARDIOVASCULAR: Denies any chest pain, palpitations high or low blood pressures RESPIRATORY: Denies any shortness of breath, hemoptysis or cough. GENITOURINARY: No dysuria or hematuria. MUSCULOSKELETAL: No weakness reported. SKIN: Denies any new rashes or lesions, jaundice or pallor. PSYCHIATRIC: Does report anxiety depression. NEUROLOGY: Denies headache, denies any new focal deficits. EARS/NOSE/THROAT: No recent hearing change, congestion, nasal discharge or sore throat. EYES: No pain in eyes, discharge or change in vision. GASTROINTESTINAL: As per HPI. Past Medical History Past Medical History: Chest Pain / Angina, COPD, CVA/TIA, GERD/Reflux, Hypertension, Osteoarthritis (OA), Rheumatoid Arthritis (RA) Additional Past Medical History / Comment(s): admitted to [facility] on 02/18/18 with colitis/sepsis/R renal cyst. Other hx: Recurrent pancreatitis, bronchitis, TIA, anemia-unknown cause, migraines, osteoporosis, past R femur fracture with surgery.past l2 compression fx, [place] sep 2019. History of Any Multi-Drug Resistant Organisms: None Reported Past Surgical History: Appendectomy, Back Surgery, Cholecystectomy, Orthopedic Surgery, Tonsillectomy Additional Past Surgical History / Comment(s): Pancreatic stents-since removed, 6 back surgeries with 2 fusions, right oophorectomy due to ectopic , EGD/colonoscopy, right leg alice inserted d/t fracture, Past Anesthesia/Blood Transfusion Reactions: No Reported Reaction Additional Past Anesthesia/Blood Transfusion Reaction / Comm: Pt has received blood in past without reaction. Past Psychological History: No Psychological Hx Reported Additional Psychological History / Comment(s): Pt resides with her spouse . Smoking Status: Former smoker Past Alcohol Use History: None Reported Additional Past Alcohol Use History / Comment(s): Pt started smoking in 1980 Past Drug Use History: None Reported - Past Family History Father Family Medical History: Cancer, Liver Disease Additional Family Medical History / Comment(s): Father was an alcoholic. He from lung/ liver cancer. Mother Family Medical History: Cancer, CVA/TIA, Hypertension Additional Family Medical History / Comment(s): Mother had breast and colon cancer. She of liver cancer at the age of 78 yrs. Medications and Allergies Home Medications Medication Instructions Recorded Confirmed Type amLODIPine BESYLATE/BENAZEPRIL 1 cap PO DAILY 05/31/19 12/11/19 History [Lotrel 2.5-10 MG] Atorvastatin [Lipitor] 40 mg PO HS 09/08/19 12/11/19 History Diphenox-Atrop 2.5-0.025 mg 1 tab PO TID PRN 09/08/19 12/11/19 History [Lomotil] Gabapentin 800 mg PO TID 09/08/19 12/11/19 History Omeprazole 20 mg PO DAILY 09/08/19 12/11/19 History metFORMIN HCL [Glucophage] 500 mg PO DAILY 09/08/19 12/11/19 History Butalb/APAP/Caff 50-325-40Mg 1 tab PO Q12H PRN 12/11/19 12/11/19 History [Fioricet 50-325-40] Cholestyramine (with Sugar) 4 gm PO TID 12/11/19 12/11/19 History [Questran] HYDROcodone/APAP 10-325MG [Sparkman 1 tab PO QID PRN 12/11/19 12/11/19 History 10-325] Metoprolol Succinate [Toprol XL] 25 mg PO DAILY 12/11/19 12/11/19 History Ondansetron Odt [Zofran Odt] 4 mg PO Q8H PRN 12/11/19 12/11/19 History Sucralfate [Carafate] 1 gm PO TID 12/11/19 12/11/19 History Ticagrelor [Brilinta] 90 mg PO BID 12/11/19 12/11/19 History metroNIDAZOLE [Flagyl] 500 mg PO TID 12/11/19 12/11/19 History predniSONE See Taper PO DAILY 12/11/19 12/11/19 History Allergies Allergy/AdvReac Type Severity Reaction Status Date / Time No Known Allergies Allergy Verified 12/11/19 13:32 Physical Exam Vitals: Vital Signs Temp Pulse Resp BP Pulse Ox 12/12/19 12:56 98.2 F 63 16 170/83 98 12/12/19 10:45 98.1 F 61 16 148/84 98 12/12/19 07:00 98.3 F 62 15 131/86 97 12/12/19 03:42 98.1 F 66 18 142/85 99 12/11/19 19:18 99.7 F H 80 18 129/89 96 Intake and Output 12/12/19 12/12/19 12/12/19 06:59 14:59 22:59 Intake Total 1200 Balance 1200 Intake: Intake, IV Titration 800 Amount Sodium Chloride 0.9% 1, 800 000 ml @ 75 mls/hr IV . [id number] [facility] Rx#:[id number] Oral 400 Other: Voiding Method Toilet # Bowel Movements 1 On physical examination, patient appears comfortable in no apparent distress. HEAD: Normocephalic, atraumatic. EYES: No scleral icterus. No conjunctival injection. MOUTH: No lesions, tongue midline. NECK: Trachea midline, no gross abnormalities. CHEST: Clear to auscultation with no wheezing or rhonchi appreciated. HEART: Regular rate and rhythm. ABDOMEN: Soft, nontender to palpation. Bowel sounds are positive. No organomegaly. No guarding or rigidity. EXTREMITIES: No pedal edema. SKIN: No rashes, no jaundice. NEUROLOGIC: Alert and oriented x3. No focal deficits. Results CBC & Chem 7: 12/12/19 06:06 12/12/19 06:06 Labs: Abnormal Lab Results - Last 24 Hours (Table) 12/12/19 12/12/19 12/12/19 Range/Units 06:06 06:06 11:43 Glucose 143 H (74-99) mg/dL POC Glucose (mg/dL) 152 H (75-99) mg/dL Total Bilirubin 0.1 L (0.2-1.3) mg/dL Lipase 376 H (23-300) U/L Microbiology - Last 24 Hours (Table) 12/11/19 13:59 Blood Culture - Preliminary Blood No Growth after 24 hours 12/11/19 13:38 Stool Culture - Preliminary Stool CT scan - abdomen: report reviewed (Computed tomography scan of the abdomen with findings of chronic pancreatitis and new pelvic mass.) Assessment and Plan (1) Diarrhea Narrative/Plan: 64-year-old female with multiple medical comorbidities including chronic pancreatitis and chronic diarrhea presenting with worsening nausea, vomiting and diarrhea over the past few weeks. She reports 5-8 loose bowel movements daily. She is on the cholestyramine in the outpatient setting. Testing for Clostridium difficile was negative. Computed tomography scan of the abdomen negative for any acute abdominal pathology there was a new pelvic mass which was noted. She also has signs of chronic pancreatitis consistent with her history of chronic pancreatitis. Unknown etiology may be secondary to an acute bacterial or viral gastroenteritis, the also be related to underlying chronic pancreatitis with plan to initiate pancreatic enzyme replacement therapy, functional bowel disorder or other etiology. Current Visit: Yes Status: Acute Code(s): R19.7 - DIARRHEA, UNSPECIFIED SNOMED Code(s): 75721643 (2) Vomiting Current Visit: Yes Status: Acute Code(s): R11.10 - VOMITING, UNSPECIFIED SNOMED Code(s): 449892481 (3) Chronic pancreatitis Current Visit: No Status: Acute Code(s): K86.1 - OTHER CHRONIC PANCREATITIS SNOMED Code(s): 414500574 Plan: Supportive care Okay for diet as tolerated Continue cholestyramine Antidiarrheals as needed for breakthrough symptoms Pancreatic enzyme replacement therapy initiated in the setting of chronic pancreatitis Testing for Clostridium difficile negative Stool cultures pending Thank you for allowing us to participate in the care of the patient we will continue to follow
[2019-12-12] MEDS: SODIUM CHLORIDE 0.9% 1,000 ML IV SCH (18:17)
[2019-12-12] MEDS: MIRTAZAPINE 15 MG TAB PO SCH (21:30)
[2019-12-12] MEDS: ATORVASTATIN 40 MG TAB PO SCH (21:30)
[2019-12-12 22:45] LABS: Glucose,Whole Blood 163 mg/dL (75-99)
[2019-12-13] MEDS: HYDROmorphone 0.5 MG/0.5 ML SYRINGE IVP PRN ×7 (03:39→22:17)
[2019-12-13] MEDS: SODIUM CHLORIDE 0.9% 1,000 ML IV SCH ×2 (06:03→10:58)
[2019-12-13] MEDS: HYDROcodone/APAP 10-325MG 1 EACH TAB PO PRN (06:18)
[2019-12-13 07:03] LABS: Glucose,Whole Blood 174 mg/dL (75-99)
[2019-12-13] MEDS: CHOLESTYRAMINE (WITH SUGAR) 4 GM PACKET PO SCH ×3 (07:32→20:57)
[2019-12-13] MEDS: amLODIPine 2.5 MG TAB PO SCH (07:32)
[2019-12-13] MEDS: PANTOPRAZOLE 40 MG TABLET PO SCH ×2 (07:32→16:36)
[2019-12-13] MEDS: METOPROLOL SUCCINATE (ER) 25 MG TAB.ER.24H PO SCH (07:32)
[2019-12-13] MEDS: SUCRALFATE 1 GM TAB PO SCH ×3 (07:32→20:58)
[2019-12-13] MEDS: GABAPENTIN 400 MG CAP PO SCH ×3 (07:32→20:57)
[2019-12-13] MEDS: LISINOPRIL 10 MG TAB PO SCH (07:33)
[2019-12-13] MEDS: metroNIDAZOLE 500 MG TAB PO SCH ×3 (07:33→20:58)
[2019-12-13] MEDS: busPIRone HCl 5 MG TAB PO SCH ×2 (07:33→20:57)
[2019-12-13] MEDS: LIPASE 5,000/PROTEASE 17,000/AMYLASE 24,000 PO SCH ×3 (07:34→16:36)
[2019-12-13 07:59] LABS: ALT 26 U/L (4-34); AST 21 U/L (14-36); African American GFR (CKD) >90 (>60 ml/min/1.73 sqM); Albumin 3.5 g/dL (3.5-5.0); Alkaline Phosphatase 86 U/L (38-126); Anion Gap 10 mmol/L; Blood Urea Nitrogen 12 mg/dL (7-17); Calcium 9.3 mg/dL (8.4-10.2); Carbon Dioxide 23 mmol/L (22-30); Chloride 107 mmol/L (98-107); Glucose 190 mg/dL (74-99); Non-African American GFR(CKD) >90 (>60 ml/min/1.73 sqM); Potassium 4.4 mmol/L (3.5-5.1); Sodium 140 mmol/L (137-145); Total Bilirubin <0.1 mg/dL (0.2-1.3); Total Protein 6.2 g/dL (6.3-8.2)
--- NOTE | 2019-12-13 10:27 | P.PN ---
Subjective Progress Note Date: 12/13/19 Principal diagnosis: Pelvic mass Patient still having complaints of intermittent pain. Some diarrhea. Remains on anticoagulation. Objective - Vital Signs Vital signs: Vital Signs Temp 97.7 F 12/13/19 06:00 Pulse 65 12/13/19 06:00 Resp 16 12/13/19 06:00 BP 134/78 12/13/19 06:00 Pulse Ox 97 12/12/19 21:05 Intake & Output 12/12/19 12/13/19 12/13/19 18:59 06:59 18:59 Intake Total 1740 700 Balance 1740 700 Intake: Intake, IV Titration 800 Amount Sodium Chloride 0.9% 1, 800 000 ml @ 75 mls/hr IV . [id number] [facility] Rx#:[id number] Oral 940 700 Other: Voiding Method Toilet Toilet # Voids 3 5 # Bowel Movements 2 1 - Exam Abdomen: Soft, nontender, nondistended - Labs CBC & Chem 7: 12/12/19 06:06 12/13/19 06:38 Labs: Abnormal Lab Results - Last 24 Hours (Table) 12/12/19 12/12/19 12/13/19 Range/Units 11:43 22:24 06:38 Glucose 190 H (74-99) mg/dL POC Glucose (mg/dL) 152 H 163 H (75-99) mg/dL Total Bilirubin <0.1 L (0.2-1.3) mg/dL Total Protein 6.2 L (6.3-8.2) g/dL 12/13/19 Range/Units 07:01 Glucose (74-99) mg/dL POC Glucose (mg/dL) 174 H (75-99) mg/dL Total Bilirubin (0.2-1.3) mg/dL Total Protein (6.3-8.2) g/dL Microbiology - Last 24 Hours (Table) 12/11/19 13:59 Blood Culture - Preliminary Blood No Growth after 24 hours Assessment and Plan (1) Pelvic mass Narrative/Plan: 64-year-old female with unusual mass right side of the hemipelvis preperitoneal space. Patient remains on anticoagulation. Continue to coordinate discontinuation of anticoagulation with interventional radiology. Current Visit: Yes Status: Acute Code(s): R19.00 - INTRA-ABD AND PELVIC SWEL LING, MASS AND LUMP, UNSP SITE SNOMED Code(s): 21601523
[2019-12-13] MEDS: TICAGRELOR 90 MG TAB PO SCH (11:33)
[2019-12-13] MEDS: MIRTAZAPINE 15 MG TAB PO SCH (20:58)
[2019-12-13] MEDS: ATORVASTATIN 40 MG TAB PO SCH (20:58)
--- NOTE | 2019-12-13 22:24 | P.PN ---
Subjective Progress Note Date: 12/13/19 Principal diagnosis: Diarrhea Patient seen lying in bed still reporting diarrhea. She reports 3 loose bowel movements today. Tolerating diet. Objective - Vital Signs Vital signs: Vital Signs Temp 97.7 F 12/13/19 06:00 Pulse 65 12/13/19 06:00 Resp 16 12/13/19 06:00 BP 134/78 12/13/19 06:00 Pulse Ox 97 12/12/19 21:05 Intake & Output 12/12/19 12/13/19 12/13/19 18:59 06:59 18:59 Intake Total 1740 700 Balance 1740 700 Intake: Intake, IV Titration 800 Amount Sodium Chloride 0.9% 1, 800 000 ml @ 75 mls/hr IV . [id number] [facility] Rx#:[id number] Oral 940 700 Other: Voiding Method Toilet Toilet # Voids 3 5 # Bowel Movements 2 1 - Exam On physical examination, patient appears comfortable in no apparent distress. HEAD: Normocephalic, atraumatic. EYES: No scleral icterus. No conjunctival injection. MOUTH: No lesions, tongue midline. NECK: Trachea midline, no gross abnormalities. ABDOMEN: Soft, obese. Bowel sounds are positive. No organomegaly. No guarding or rigidity. EXTREMITIES: No pedal edema. SKIN: No rashes, no jaundice. NEUROLOGIC: Alert and oriented x3. No focal deficits. - Labs CBC & Chem 7: 12/12/19 06:06 12/13/19 06:38 Labs: Abnormal Lab Results - Last 24 Hours (Table) 12/12/19 12/13/19 12/13/19 Range/Units 22:24 06:38 07:01 Glucose 190 H (74-99) mg/dL POC Glucose (mg/dL) 163 H 174 H (75-99) mg/dL Total Bilirubin <0.1 L (0.2-1.3) mg/dL Total Protein 6.2 L (6.3-8.2) g/dL Microbiology - Last 24 Hours (Table) 12/11/19 13:59 Blood Culture - Preliminary Blood No Growth after 24 hours Assessment and Plan (1) Diarrhea Narrative/Plan: 64-year-old female with multiple medical comorbidities including chronic pancreatitis and chronic diarrhea presenting with worsening nausea, vomiting and diarrhea over the past few weeks. She reports 5-8 loose bowel movements daily. She is on the cholestyramine in the outpatient setting. Testing for Clostridium difficile was negative. Computed tomography scan of the abdomen negative for any acute abdominal pathology there was a new pelvic mass which was noted. She also has signs of chronic pancreatitis consistent with her history of chronic pancreatitis. Unknown etiology may be secondary to an acute bacterial or viral gastroenteritis, the also be related to underlying chronic pancreatitis with plan to initiate pancreatic enzyme replacement therapy, functional bowel disorder or other etiology. Current Visit: Yes Status: Acute Code(s): R19.7 - DIARRHEA, UNSPECIFIED SNOMED Code(s): 40563949 (2) Vomiting Current Visit: Yes Status: Acute Code(s): R11.10 - VOMITING, UNSPECIFIED SNOMED Code(s): 834664286 (3) Chronic pancreatitis Current Visit: No Status: Acute Code(s): K86.1 - OTHER CHRONIC PANCREATITIS SNOMED Code(s): 032061636 Plan: Supportive care Okay for diet as tolerated Continue cholestyramine Antidiarrheals as needed for breakthrough symptoms Pancreatic enzyme replacement therapy initiated in the setting of chronic pancreatitis Testing for Clostridium difficile negative Stool cultures pending Thank you for allowing us to participate in the care of the patient we will continue to follow
--- NOTE | 2019-12-13 23:47 | PN ---
PROGRESS NOTE 64-year-old white female admitted to the hospital with pelvic mass, pancreatitis, abdominal pain, chronic diarrhea. She has been taken off her Brintella, blood thinner. Surgery will get a biopsy of a pelvic mass on Sunday. Continue with clear liquid diet. Possible soft diet. Cardiovascular S1-S2. Lungs transmitted upper airway sounds. Hematology negative Homans. GI: Decreased bowel sounds. Plan is to do biopsy, pelvic biopsy on Sunday. Await for recommendations by GI and surgery. As mentioned pelvic mass biopsy on Sunday with a needle, preperitoneal space hemipelvis. Wait for this on Sunday. Continue clear liquid diet. The pancreas enzymes were started for pancreatitis. MMODL / IJN: [id number] /
[2019-12-14] MEDS: HYDROmorphone 0.5 MG/0.5 ML SYRINGE IVP PRN ×7 (00:27→20:11)
[2019-12-14] MEDS: amLODIPine 2.5 MG TAB PO SCH (08:44)
[2019-12-14] MEDS: METOPROLOL SUCCINATE (ER) 25 MG TAB.ER.24H PO SCH (08:44)
[2019-12-14] MEDS: metroNIDAZOLE 500 MG TAB PO SCH ×3 (08:44→21:39)
[2019-12-14] MEDS: SUCRALFATE 1 GM TAB PO SCH ×3 (08:44→21:39)
[2019-12-14] MEDS: busPIRone HCl 5 MG TAB PO SCH ×2 (08:44→20:12)
[2019-12-14] MEDS: PANTOPRAZOLE 40 MG TABLET PO SCH ×2 (08:44→17:28)
[2019-12-14] MEDS: LISINOPRIL 10 MG TAB PO SCH (08:44)
[2019-12-14] MEDS: CHOLESTYRAMINE (WITH SUGAR) 4 GM PACKET PO SCH ×3 (08:45→20:15)
[2019-12-14] MEDS: GABAPENTIN 400 MG CAP PO SCH ×3 (08:45→21:39)
[2019-12-14] MEDS: LIPASE 5,000/PROTEASE 17,000/AMYLASE 24,000 PO SCH ×3 (08:50→17:28)
[2019-12-14] MEDS: SODIUM CHLORIDE 0.9% 1,000 ML IV SCH ×2 (08:50→20:17)
--- NOTE | 2019-12-14 11:25 | P.PN ---
Subjective Progress Note Date: 12/14/19 Principal diagnosis: Pelvic mass Patient has no new complaints. He did well last night. Tolerating diet. Objective - Vital Signs Vital signs: Vital Signs Temp 97.5 F L 12/14/19 05:49 Pulse 57 L 12/14/19 05:49 Resp 20 12/14/19 05:49 BP 139/84 12/14/19 05:49 Pulse Ox 97 12/14/19 05:49 Intake & Output 12/13/19 12/14/19 12/14/19 18:59 06:59 18:59 Intake Total 540 300 Balance 540 300 Intake: Oral 540 300 Other: Voiding Method Toilet # Voids 3 2 - Exam Abdomen: Soft, nontender, nondistended - Labs CBC & Chem 7: 12/12/19 06:06 12/13/19 06:38 Labs: Microbiology - Last 24 Hours (Table) 12/11/19 13:59 Blood Culture - Preliminary Blood No Growth after 48 hours Assessment and Plan (1) Pelvic mass Narrative/Plan: Continue hold on anticoagulation. Touch base with interventional radiology tomorrow to decide on whether percutaneous biopsy will be performed. Will follow. Current Visit: Yes Status: Acute Code(s): R19.00 - INTRA-ABD AND PELVIC SWELLING, MASS AND LUMP, UNSP SITE SNOMED Code(s): 15944757
--- NOTE | 2019-12-14 19:33 | P.PN ---
Subjective Progress Note Date: 12/14/19 Principal diagnosis: Diarrhea, pelvic mass Patient seen lying in bed still reporting diarrhea. She reports 3 loose bowel movements yesterday and 2 bowel movements this morning. Objective - Vital Signs Vital signs: Vital Signs Temp 97.5 F L 12/14/19 05:49 Pulse 57 L 12/14/19 05:49 Resp 20 12/14/19 05:49 BP 139/84 12/14/19 05:49 Pulse Ox 97 12/14/19 05:49 Intake & Output 12/13/19 12/14/19 12/14/19 18:59 06:59 18:59 Intake Total 540 300 Balance 540 300 Intake: Oral 540 300 Other: Voiding Method Toilet # Voids 3 2 - Exam On physical examination, patient appears comfortable in no apparent distress. HEAD: Normocephalic, atraumatic. EYES: No scleral icterus. No conjunctival injection. MOUTH: No lesions, tongue midline. NECK: Trachea midline, no gross abnormalities. ABDOMEN: Soft, obese. Bowel sounds are positive. No organomegaly. No guarding or rigidity. EXTREMITIES: No pedal edema. SKIN: No rashes, no jaundice. NEUROLOGIC: Alert and oriented x3. No focal deficits. - Labs CBC & Chem 7: 12/12/19 06:06 12/13/19 06:38 Labs: Microbiology - Last 24 Hours (Table) 12/11/19 13:59 Blood Culture - Preliminary Blood No Growth after 48 hours Assessment and Plan (1) Diarrhea Narrative/Plan: 64-year-old female with multiple medical comorbidities including chronic pancre atitis and chronic diarrhea presenting with worsening nausea, vomiting and diarrhea over the past few weeks. She reports 5-8 loose bowel movements daily. She is on the cholestyramine in the outpatient setting. Testing for Clostridium difficile was negative. Computed tomography scan of the abdomen negative for any acute abdominal pathology there was a new pelvic mass which was noted. She also has signs of chronic pancreatitis consistent with her history of chronic pancreatitis. Unknown etiology may be secondary to an acute bacterial or viral gastroenteritis, the also be related to underlying chronic pancreatitis with plan to initiate pancreatic enzyme replacement therapy, functional bowel disorder or other etiology. Current Visit: Yes Status: Acute Code(s): R19.7 - DIARRHEA, UNSPECIFIED SNOMED Code(s): 77677229 (2) Vomiting Current Visit: Yes Status: Acute Code(s): R11.10 - VOMITING, UNSPECIFIED SNOMED Code(s): 303767757 (3) Chronic pancreatitis Current Visit: No Status: Acute Code(s): K86.1 - OTHER CHRONIC PANCREATITIS SNOMED Code(s): 953593837 Plan: Supportive care Okay for diet as tolerated Continue cholestyramine Antidiarrheals as needed for breakthrough symptoms Pancreatic enzyme replacement therapy initiated in the setting of chronic pancreatitis Testing for Clostridium difficile negative Stool cultures pending Patient reports biopsy of pelvic mass plan for tomorrow Thank you for allowing us to participate in the care of the patient we will continue to follow
[2019-12-14] MEDS: ATORVASTATIN 40 MG TAB PO SCH (20:12)
[2019-12-14] MEDS: MIRTAZAPINE 15 MG TAB PO SCH (20:13)
[2019-12-14 21:08] VITALS: RESP 20
--- NOTE | 2019-12-14 22:45 | PN ---
PROGRESS NOTE 64-year-old white female admitted with pancreatitis, nausea, vomiting, diarrhea, anxiety and depression. I placed her on Remeron and BuSpar for anxiety depression and placed on pancreatic enzymes for pancreatitis and diarrhea. Pelvic mass is going to get a needle biopsy done tomorrow and possible discharge. Her lipase is decreasing back to normal. Cardiovascular: S1/S2. GI is increased bowel sounds. Hematology is negative Homans. Psych: Fair mood and affect. ASSESSMENT: 1. Pancreatitis. 2. Acute on chronic diarrhea. 3. Possible colitis. 4. Pelvic mass, unclear etiology. PLAN: Continue on pancreatic enzymes, advance diet. Needle biopsy tomorrow then restart Brintellix and possible discharge home. MMODL / IJN: [id number] /
[2019-12-15] MEDS: HYDROmorphone 0.5 MG/0.5 ML SYRINGE IVP PRN ×4 (00:22→10:29)
[2019-12-15 05:00] VITALS: BP 119/68; PULSE 57; TEMP 97.5
[2019-12-15] MEDS: METOPROLOL SUCCINATE (ER) 25 MG TAB.ER.24H PO SCH (07:36)
[2019-12-15] MEDS: LISINOPRIL 10 MG TAB PO SCH (07:36)
[2019-12-15] MEDS: amLODIPine 2.5 MG TAB PO SCH (07:37)
[2019-12-15] MEDS: SUCRALFATE 1 GM TAB PO SCH (07:37)
[2019-12-15] MEDS: busPIRone HCl 5 MG TAB PO SCH (07:37)
[2019-12-15] MEDS: GABAPENTIN 400 MG CAP PO SCH (07:37)
[2019-12-15] MEDS: PANTOPRAZOLE 40 MG TABLET PO SCH (07:37)
[2019-12-15] MEDS: CHOLESTYRAMINE (WITH SUGAR) 4 GM PACKET PO SCH ×2 (07:38→11:42)
[2019-12-15] MEDS: metroNIDAZOLE 500 MG TAB PO SCH (07:54)
[2019-12-15] MEDS: LIPASE 5,000/PROTEASE 17,000/AMYLASE 24,000 PO SCH ×2 (07:54→11:43)
[2019-12-15] MEDS: SODIUM CHLORIDE 0.9% 1,000 ML IV SCH (11:41)
--- NOTE | 2019-12-15 12:32 | P.DS ---
Providers Date of admission: 12/11/19 11:07 Expected date of discharge: 12/15/19 Attending physician: Isac Calvin Consults: 12/11/19 13:39 Consult Physician Routine Consulting Provider: Eze Amaya Consult Reason/Comments: chronic diarrhea Do you want consulting provider notified?: Yes 12/11/19 15:05 Consult Physician Urgent Consulting Provider: Moises Rodriguez Consult Reason/Comments: Severe anxiety and depression Do you want consulting provider notified?: Yes 12/12/19 10:39 Consult Physician Routine Consulting Provider: Isac Renteria Consult Reason/Comments: ct guided biopsy pelvic mass Do you want consulting provider notified?: Yes 12/12/19 10:41 Consult Physician Routine Consulting Provider: Boaz Simpson Consult Reason/Comments: pancreatitis/hx stents Do you want consulting provider notified?: Yes Primary care physician: Peoples Hospital Course: Final Diagnoses: Left flank pain, CT reporting right anterior pelvic mass, unclear etiology surgery following. Dehydration Chronic pancreatitis, history of pancreatic stent-removed, possible acute colitis Chronic diarrhea, outpatient colonoscopy Depression Anxiety disorder, unspecified History of recent CVA in September 2019, on Brilenta COPD, stable Hypertension History of migraines Rheumatoid arthritis Osteoarthritis Multiple back surgeries Former nicotine dependence Hospital course:64-year-old female admitted with multiple medical issues including nausea vomiting, chronic diarrhea, dehydration. Maintained on gentle IV fluid hydration. Tolerating clear liquids well with no nausea, vomiting or diarrhea. Requesting diet advancement. Soft formed bowel movement this morning with no further blood in stools since admission. Hemoglobin 11.7. Complains of left flank pain.CT abdomen/pelvic revealed a new 3.3 cm well-defined lesion in the anterior right pelvis with local mass effect on the bladder.Evaluated by both surgery and GI with recommendations noted and appreciated. Surgery recommended CT-guided biopsy, which would require holding of Brilenta X 7 days. Creon added to med regime with outpatient colonoscopy recommended per GI. Psychiatry consult in place with recommendations noted. Afebrile. Lipase minimally elevated, 376. C. difficile negative, stool cultures in progress. CT-guided biopsy, unable to be performed per interventional radiology; requesting Brilenta held 7 days. Patient will be discharged home in a stable condition with guarded prognosis pending final DC recommendations /clearance from surgery.Outpatient CT-guided biopsy including instructions for Brilenta as per surgery. The impression and plan of care has been dictated as directed. : I performed a history and examination of this patient, discussed the same with the dictator. I agree with the dictator's note ,documented as a scribe. Any additional findings or plans will be noted. Patient Condition at Discharge: Stable Plan - Discharge Summary Discharge Rx Participant: No New Discharge Prescriptions: New busPIRone HCl [Buspar] 7.5 mg PO BID #30 tab Mirtazapine [Remeron] 15 mg PO HS #30 tab Lipase/Protease/Amylase [Zenpep Dr 5,000 Unit Capsule] 1 each PO AC-TID #[address] Marquez amLODIPine BESYLATE/BENAZEPRIL [Lotrel 2.5-10 MG] 1 cap PO DAILY metFORMIN HCL [Glucophage] 500 mg PO DAILY Gabapentin 800 mg PO TID Diphenox-Atrop 2.5-0.025 mg [Lomotil] 1 tab PO TID PRN PRN Reason: Loose Stool Atorvastatin [Lipitor] 40 mg PO HS Omeprazole 20 mg PO DAILY Sucralfate [Carafate] 1 gm PO TID predniSONE See Taper PO DAILY Ondansetron Odt [Zofran ODT] 4 mg PO Q8H PRN PRN Reason: Nausea metroNIDAZOLE [Flagyl] 500 mg PO TID Metoprolol Succinate [Toprol XL] 25 mg PO DAILY HYDROcodone/APAP 10-325MG [[place] 10-325] 1 tab PO QID PRN PRN Reason: Pain Cholestyramine (with Sugar) [Questran Packet] 4 gm PO TID Butalb/APAP/Caff 50-325-40Mg [Fioricet 50-325-40] 1 tab PO Q12H PRN PRN Reason: Migraine Headache Ticagrelor [Brilinta] 90 mg PO BID Discharge Medication List amLODIPine BESYLATE/BENAZEPRIL [Lotrel 2.5-10 MG] 1 cap PO DAILY 05/31/19 [History] Atorvastatin [Lipitor] 40 mg PO HS 09/08/19 [History] Diphenox-Atrop 2.5-0.025 mg [Lomotil] 1 tab PO TID PRN 09/08/19 [History] Gabapentin 800 mg PO TID 09/08/19 [History] Omeprazole 20 mg PO DAILY 09/08/19 [History] metFORMIN HCL [Glucophage] 500 mg PO DAILY 09/08/19 [History] Butalb/APAP/Caff 50-325-40Mg [Fioricet 50-325-40] 1 tab PO Q12H PRN 12/11/19 [History] Cholestyramine (with Sugar) [Questran Packet] 4 gm PO TID 12/11/19 [History] HYDROcodone/APAP 10-325MG [[place] 10-325] 1 tab PO QID PRN 12/11/19 [History] Metoprolol Succinate [Toprol XL] 25 mg PO DAILY 12/11/19 [History] Ondansetron Odt [Zofran ODT] 4 mg PO Q8H PRN 12/11/19 [History] Sucralfate [Carafate] 1 gm PO TID 12/11/19 [History] Ticagrelor [Brilinta] 90 mg PO BID 12/11/19 [History] metroNIDAZOLE [Flagyl] 500 mg PO TID 12/11/19 [History] predniSONE See Taper PO DAILY 12/11/19 [History] Lipase/Protease/Amylase [Zenpep 5,000 Unit Capsule] 1 each PO AC-TID #30 capsule. 12/15/19 [Rx] Mirtazapine [Remeron] 15 mg PO HS #30 tab 12/15/19 [Rx] busPIRone HCl [Buspar] 7.5 mg PO BID #30 tab 12/15/19 [Rx] Follow up Appointment(s)/Referral(s): [facility] mental health, psychiatry [Other] - 1 Week Osmel Carpio MD [Medical Doctor] - 1 Week Isac Calvin MD [Primary Care Provider] - 3 Days Boaz Simpson MD [STAFF PHYSICIAN] - 4 Weeks (Hospital f/u acute on chronic pancreatitis, due for colonoscopy) Activity/Diet/Wound Care/Special Instructions: Outpatient CT-guided biopsy including instructions for Brilenta as per surgery
--- NOTE | 2019-12-15 14:20 | P.PN ---
Subjective Progress Note Date: 12/15/19 CHIEF COMPLAINT: Pelvic mass HISTORY OF PRESENT ILLNESS: Patient examined at the bedside with Dr. Amaya. She reports abdominal pain. She has been cleared for discharge today per internal medicine PHYSICAL EXAM: VITAL SIGNS: Reviewed. GENERAL: Well-developed in no acute distress. HEENT: No sclera icterus. Extraocular movements grossly intact. Moist buccal mucosa. Head is atraumatic, normocephalic. ABDOMEN: Soft. Nondistended. Nontender. NEUROLOGIC: Alert and oriented. Cranial nerves II through XII grossly intact. ASSESSMENT: 1. Pelvic mass PLAN: -Patient may be discharged home today from a surgical standpoint. -Patient has been off Brilinta since 12/12/2019 -Patient to have outpatient CT-guided biopsy of pelvic mass per interventional radiology Nurse practitioner note has been reviewed by physician. Signing provider agrees with the documented findings, assessment, and plan of care. Objective - Vital Signs Vital signs: Vital Signs Temp 97.5 F L 12/15/19 04:45 Pulse 57 L 12/15/19 04:45 Resp 20 12/15/19 04:45 BP 119/68 12/15/19 04:45 Pulse Ox 98 12/15/19 04:45 Intake & Output 12/14/19 12/15/19 12/15/19 18:59 06:59 18:59 Intake Total 900 500 Balance 900 500 Intake: Intake, IV Titration 900 Amount Sodium Chloride 0.9% 1, 900 000 ml @ 75 mls/hr IV . [id number] JOLLY Rx#:[id number] Oral 500 Other: # Voids 2 - Labs CBC & Chem 7: 12/12/19 06:06 12/13/19 06:38 Labs: Microbiology - Last 24 Hours (Table) 12/11/19 13:38 Stool Culture - Final Stool 12/11/19 13:59 Blood Culture - Preliminary Blood No Growth after 72 hours
--- NOTE | 2019-12-15 14:58 | PN ---
PROGRESS NOTE The patient is a 64-year-old, pleasant, white female who was admitted to the hospital because of severe diarrhea for the last few weeks' duration. She has been having about 7-8 loose watery bowel movements daily. She was started on Questran as well as Lomotil and also on pancreatic enzyme supplements for a history of chronic pancreatitis. The patient was also noted to have a pelvic mass during this hospitalization, is scheduled for a CT-guided biopsy, however, because she is on Brilinta, the procedure has been postponed for another week. In the meantime, she is doing much better. She still has some diarrhea, had about three loose bowel movements today and two last night. Reports no blood or mucus in the stool, no abdominal pain. PHYSICAL EXAMINATION: On physical examination, appears comfortable. No apparent distress. VITAL SIGNS: Stable. Blood pressure is 153/86, pulse rate 82 per minute, and afebrile. HEENT: Examination is unremarkable. Conjunctivae pink. Sclerae anicteric. Oral cavity, no lesions. NECK: No JVD or lymph node enlargement. CHEST: Clear to auscultation. HEART: Regular rate and rhythm. ABDOMEN: Soft. Bowel sounds are positive. No organomegaly. EXTREMITIES: No pedal edema. SKIN: No rashes. NEUROLOGIC: Alert and oriented x3. No focal deficits. LABS: No labs are available from today. IMPRESSION: 1. Chronic diarrhea for the last three weeks' duration. Stool studies have been negative. Presently on Questran and Lomotil as well as pancreatic enzyme supplements and her diarrhea is gradually improving. 2. History of chronic pancreatitis of unclear etiology. 3. Pelvic mass for which she will be scheduled for a CT-guided biopsy next week after she is off the Brilinta for 7 days. RECOMMENDATIONS: 1. Continue with Lomotil 2 tablets four times daily. 2. Continue Questran 1 packet twice daily. 3. Follow with Dr. Simpson in a couple of weeks following discharge from the hospital. Thank you for this consultation. MMODL / IJN: [id number] /
--- NOTE | 2019-12-17 10:36 | CDI ---
Documentation Clarification Form Date: 12/17/19 From: Sulma Negron CCS Phone: If you have a question about this query, please contact Marita Esteban, Tool Coordinator at [phone] between 8am and 5pm. Admit Date: 12/11/19 Discharge Date:12/15/19 Patient Name: Domi Jenkins Visit Number: [id number] ATTENTION: The Clinical Documentation Specialists (CDI) and [facility] Coding Staff appreciate your assistance in clarifying documentation. Please respond to the clarification below the line at the bottom and electronically sign. The CDI & [facility] Coding staff will review the response and follow-up if needed. Please note: Queries are made part of the Legal Health Record. If you have any questions, please contact the author of this message via ITS. Dear Dr. Calvin, Possible acute colitis is documented in the DS. PNs, 12/11 Consult document: May be secondary to an acute bacterial or viral gastroenteritis, the also be related to underlying chronic pancreatitis with plan to initiate pancreatic enzyme replacement therapy, functional bowel disorder or other etiology Patient history/risk factors: Chronic pancreatitis, chronic diarrhea, HTN, GERD Clinical Indicators: Chronic diarrhea, dehydration Radiology: Oral contrast reaches level of right colon making evaluation of distal bowel suboptimal.No suspicious small or large bowel dilatation.Diverticula in the sigmoid colon are present without CT evidence for acute diverticulitis. Treatment: Protonix 40 mg PO Daily, Zofran 4mg IVP, Flagyl 500 mg PO, Zenpep Dr 5,000 unit capsule PO Consults: Monique Simpson Other Treatment: Outpatient workup for pelvic mass, Outpatient colonoscopy In your professional opinion, can you please further specify the following, if known? Infectious colitis Viral colitis Acute colitis unknown etiology Colitis due to pancreatitis Other, please specify Unable to determine MTDD
--- NOTE | 2019-12-22 10:02 | CDI ---
Documentation Clarification Form Date: 12/22/19 From: Sulma Negron CCS Phone: If you have a question about this query, please contact Marita Esteban, Patient Care at [phone] between 8am and 5pm. Admit Date: 12/11/19 Discharge Date:12/15/19 Patient Name: Domi Jenkins Visit Number: [id number] ATTENTION: The Clinical Documentation Specialists (CDI) and [facility] Coding Staff appreciate your assistance in clarifying documentation. Please respond to the clarification below the line at the bottom and electronically sign. The CDI & [facility] Coding staff will review the response and follow-up if needed. Please note: Queries are made part of the Legal Health Record. If you have any questions, please contact the author of this message via ITS. Dear Dr. Calvin, Possible acute colitis is documented in the DS. PNs, 12/11 Consult document: May be secondary to an acute bacterial or viral gastroenteritis, the also be related to underlying chronic pancreatitis with plan to initiate pancreatic enzyme replacement therapy, functional bowel disorder or other etiology Patient history/risk factors: Chronic pancreatitis, chronic diarrhea, HTN, GERD Clinical Indicators: Chronic diarrhea, dehydration Radiology: Oral contrast reaches level of right colon making evaluation of distal bowel suboptimal.No suspicious small or large bowel dilatation.Diverticula in the sigmoid colon are present without CT evidence for acute diverticulitis. Treatment: Protonix 40 mg PO Daily, Zofran 4mg IVP, Flagyl 500 mg PO, Zenpep Dr 5,000 unit capsule PO Consults: Monique Simpson Other Treatment: Outpatient workup for pelvic mass, Outpatient colonoscopy In your professional opinion, can you please further specify the following, if known? Infectious colitis Viral colitis Acute colitis unknown etiology Colitis due to pancreatitis Other, please specify Unable to determine MTDD
--- NOTE | 2019-12-30 12:56 | CDI ---
Documentation Clarification Form Date: 12/30/19 From: Sulma Negron CCS Phone: If you have a question about this query, please contact Marita Esteban, [employer] at [phone] between 8am and 5pm. Admit Date: 12/11/19 Discharge Date:12/15/19 Patient Name: Domi Jenkins Visit Number: [id number] ATTENTION: The Clinical Documentation Specialists (CDI) and [facility] Coding Staff appreciate your assistance in clarifying documentation. Please respond to the clarification below the line at the bottom and electronically sign. The CDI & [facility] Coding staff will review the response and follow-up if needed. Please note: Queries are made part of the Legal Health Record. If you have any questions, please contact the author of this message via ITS. Dear Dr. Clavin, Possible acute colitis is documented in the DS. PNs, 12/11 Consult document: May be secondary to an acute bacterial or viral gastroenteritis, the also be related to underlying chronic pancreatitis with plan to initiate pancreatic enzyme replacement therapy, functional bowel disorder or other etiology Patient history/risk factors: Chronic pancreatitis, chronic diarrhea, HTN, GERD Clinical Indicators: Chronic diarrhea, dehydration Radiology: Oral contrast reaches level of right colon making evaluation of distal bowel suboptimal.No suspicious small or large bowel dilatation.Diverticula in the sigmoid colon are present without CT evidence for acute diverticulitis. Treatment: Protonix 40 mg PO Daily, Zofran 4mg IVP, Flagyl 500 mg PO, Zenpep Dr 5,000 unit capsule PO Consults: Monique Simpson Other Treatment: Outpatient workup for pelvic mass, Outpatient colonoscopy In your professional opinion, can you please further specify the following, if known? Infectious colitis Viral colitis Acute colitis unknown etiology Colitis due to pancreatitis Other, please specify Unable to determine MTDD
--- NOTE | 2020-01-02 19:00 | DS ---
DISCHARGE SUMMARY ADDENDUM: Colitis due to pancreatitis. MMODL / IJN: [id number] /
== END 2019-12-15 15:36 | disposition home or self-care (01) | DRG 641 ==
LOC: 4SSUR 11:07 → 6NMEDSUR 12-12 10:37
PROVIDERS: ADMIT Family Medicine; ATTEND Family Medicine
PROC: 05HF33Z Insertion of Infusion Device into Left Cephalic Vein, Percutaneous Approach (ICD-10-PCS; principal; 2019-12-12 07:30)
DX: E86.0 Dehydration (principal); K86.1 Other chronic pancreatitis; K52.9 Noninfective gastroenteritis and colitis, unspecified; J44.9 Chronic obstructive pulmonary disease, unspecified; I10 Essential (primary) hypertension; M19.90 Unspecified osteoarthritis, unspecified site; M06.9 Rheumatoid arthritis, unspecified; G43.909 Migraine, unspecified, not intractable, without status migrainosus; R19.00 Intra-abdominal and pelvic swelling, mass and lump, unspecified site; K21.9 Gastro-esophageal reflux disease without esophagitis; M81.0 Age-related osteoporosis without current pathological fracture; F41.9 Anxiety disorder, unspecified; F32.9 Major depressive disorder, single episode, unspecified; N28.1 Cyst of kidney, acquired; Z79.899 Other long term (current) drug therapy; Z79.84 Long term (current) use of oral hypoglycemic drugs; Z79.02 Long term (current) use of antithrombotics/antiplatelets; Z90.721 Acquired absence of ovaries, unilateral; Z87.891 Personal history of nicotine dependence; Z86.73 Personal history of transient ischemic attack (TIA), and cerebral infarction without residual deficits; Z86.010 Personal history of colon polyps; Z90.49 Acquired absence of other specified parts of digestive tract; Z98.890 Other specified postprocedural states; Z98.1 Arthrodesis status; Z96.7 Presence of other bone and tendon implants; Z82.3 Family history of stroke; Z80.0 Family history of malignant neoplasm of digestive organs; Z81.1 Family history of alcohol abuse and dependence; Z82.49 Family history of ischemic heart disease and other diseases of the circulatory system; Z80.3 Family history of malignant neoplasm of breast; Z83.79 Family history of other diseases of the digestive system
CPT/HCPCS: 36410; 74176; 76937; 80053; 82150; 83690; 85025; 87040; 87045; 87046; 87324

== ENCOUNTER 2019-12-18 15:38 | Emergency (ER) | payer BC ==
[2019-12-18 15:45] VITALS: RESP 18; TEMP 98.9
[2019-12-18] MEDS ORDERED: SODIUM CHLORIDE 0.9% 1,000 ML IV STA (16:45)
[2019-12-18] MEDS ORDERED: ONDANSETRON 4 MG/2 ML VIAL IVP STA (16:45)
[2019-12-18] MEDS ORDERED: MORPHINE SULFATE 4 MG/ML SYRINGE IVP STA (16:45)
[2019-12-18 17:04] LABS: Basophils % (A) 0 %; Eosinophils # (A) 0.2 k/uL (0-0.7); Eosinophils % (A) 2 %; HCT 38.5 % (34.0-46.0); HGB 12.1 gm/dL (11.4-16.0); Lymphocytes # (A) 2.7 k/uL (1.0-4.8); Lymphocytes % (A) 34 %; MCH 27.6 pg (25.0-35.0); MCHC 31.4 g/dL (31.0-37.0); MCV 88.1 fL (80.0-100.0); Mean Platelet Volume 7.7; Monocytes # (A) 0.4 k/uL (0-1.0); Monocytes % (A) 5 %; Neutrophils # (A) 4.6 k/uL (1.3-7.7); Neutrophils % (A) 57 %; Platelet Count 377 k/uL (150-450); RBC 4.37 m/uL (3.80-5.40); RDW 13.9 % (11.5-15.5); WBC 8.1 k/uL (3.8-10.6)
[2019-12-18 17:08] VITALS: PULSE 69
[2019-12-18 17:17] LABS: ALT 22 U/L (4-34); AST 32 U/L (14-36); African American GFR (CKD) >90 (>60 ml/min/1.73 sqM); Albumin 4.1 g/dL (3.5-5.0); Alkaline Phosphatase 68 U/L (38-126); Amylase 48 U/L (30-110); Anion Gap 9 mmol/L; Blood Urea Nitrogen 18 mg/dL (7-17); Calcium 9.2 mg/dL (8.4-10.2); Carbon Dioxide 21 mmol/L (22-30); Chloride 106 mmol/L (98-107); Glucose 249 mg/dL (74-99); Non-African American GFR(CKD) 78 (>60 ml/min/1.73 sqM); Sodium 136 mmol/L (137-145); Total Bilirubin 0.3 mg/dL (0.2-1.3); Total Protein 7.1 g/dL (6.3-8.2)
[2019-12-18 17:18] LABS: Potassium 4.3 mmol/L (3.5-5.1)
--- NOTE | 2019-12-18 17:26 | XR ---
EXAMINATION TYPE: XR KUB DATE OF EXAM: 12/18/2019 COMPARISON: 12/02/2019 INDICATION: Abdomen pain TECHNIQUE: Single view abdomen upright view FINDINGS: There is a nonspecific bowel gas pattern. Psoas margins are normal. No organomegaly is present. Postsurgical rods and pedicle screws are within the lumbar spine. IMPRESSION: 1. Nonspecific abdomen.
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
[2019-12-18 19:06] LABS: Appearance,Urine Cloudy (Clear); Bilirubin,Urine Negative (Negative); Blood,Urine Large (Negative); Color,Urine Yellow; Glucose,Urine (UA) Negative (Negative); Ketones,Urine Negative (Negative); Leukocyte Esterase,Urine Small (Negative); Mucus,Urine Rare /hpf; Nitrite,Urine Negative (Negative); Protein,Urine Trace (Negative); RBC,Urine 36 /hpf (0-5); Specific Gravity,Urine 1.017 (1.001-1.035); Squamous Epithelial Cell,Urine 9 /hpf (0-4); Urobilinogen,Urine <2.0 mg/dL (<2.0); WBC,Urine 6 /hpf (0-5)
[2019-12-18] MEDS ORDERED: ACET/COD 300 MG/30 MG STARTER PACK 6 TAB BTL PO STA (19:12)
[2019-12-18 19:18] VITALS: BP 127/90
== END 2019-12-18 19:28 | disposition home or self-care (01) ==
LOC: EC 15:38
DX: K86.1 Other chronic pancreatitis (principal); E86.0 Dehydration; K21.9 Gastro-esophageal reflux disease without esophagitis; I10 Essential (primary) hypertension; M06.9 Rheumatoid arthritis, unspecified; M81.0 Age-related osteoporosis without current pathological fracture; G43.909 Migraine, unspecified, not intractable, without status migrainosus; I25.2 Old myocardial infarction; Z79.52 Long term (current) use of systemic steroids; Z79.899 Other long term (current) drug therapy; Z79.01 Long term (current) use of anticoagulants; Z87.891 Personal history of nicotine dependence; Z86.73 Personal history of transient ischemic attack (TIA), and cerebral infarction without residual deficits; Z87.19 Personal history of other diseases of the digestive system; Z90.49 Acquired absence of other specified parts of digestive tract; Z98.890 Other specified postprocedural states
CPT/HCPCS: 96374; 96375; 99285; 96361; 36415; 80053; 82150; 83605; 83690; 85025; 81001; 74018; J2270; J2405

== ENCOUNTER 2019-12-21 11:04 | Emergency (ER) | payer BC ==
[2019-12-21] MEDS ORDERED: SODIUM CHLORIDE 0.9% 2,000 ML IV STA (11:21)
[2019-12-21] MEDS ORDERED: KETOROLAC 30 MG/ML 1 ML VIAL IVP STA (11:21)
[2019-12-21] MEDS ORDERED: ONDANSETRON 4 MG/2 ML VIAL IVP STA (11:21)
[2019-12-21] MEDS ORDERED: PANTOPRAZOLE 40 MG/10 ML VIAL IVP STA (11:21)
[2019-12-21] MEDS ORDERED: MORPHINE SULFATE 4 MG/ML SYRINGE IV STA (11:21)
--- NOTE | 2019-12-21 11:27 | ED ---
Abdominal Pain HPI - General Chief Complaint: Abdominal Pain Stated Complaint: pancreatitis Time Seen by Provider: 12/21/19 11:09 Source: patient, RN notes reviewed, old records reviewed Mode of arrival: wheelchair Limitations: no limitations - History of Present Illness Initial Comments: 64-year-old female presents emergency department today with chief complaint of nausea vomiting and abdominal pain as well as some intermittent diarrhea. She reports she's been having this worsening pain for the past few weeks and believes that this pain is related to chronic pancreatitis. She was recently admitted to the hospital last week. She states that she came to the emergency department 3 days ago and was discharged with Tylenol with codeine starter pack for pain management. She states that she is continuing to have pain. She contacted her PCP and instructed her to come for further evaluation and concern for dehydration she has had persistent vomiting. Patient denies any bloody stools or bloody emesis at this time. She denies any fevers or chills. - Related Data Home Medications Medication Instructions Recorded Confirmed amLODIPine BESYLATE/BENAZEPRIL 1 cap PO DAILY 05/31/19 12/18/19 [Lotrel 2.5-10 MG] Atorvastatin [Lipitor] 40 mg PO HS 09/08/19 12/18/19 Diphenox-Atrop 2.5-0.025 mg 1 tab PO TID PRN 09/08/19 12/18/19 [Lomotil] Gabapentin 800 mg PO TID 09/08/19 12/18/19 Omeprazole 20 mg PO DAILY 09/08/19 12/18/19 Butalb/APAP/Caff 50-325-40Mg 1 tab PO Q12H PRN 12/11/19 12/18/19 [Fioricet 50-325-40] HYDROcodone/APAP 10-325MG [Merritt 1 tab PO QID PRN 12/11/19 12/18/19 10-325] Metoprolol Succinate [Toprol XL] 25 mg PO DAILY 12/11/19 12/18/19 Ondansetron Odt [Zofran ODT] 4 mg PO Q8H PRN 12/11/19 12/18/19 Sucralfate [Carafate] 1 gm PO TID 12/11/19 12/18/19 Ticagrelor [Brilinta] 90 mg PO BID 12/11/19 12/18/19 metroNIDAZOLE [Flagyl] 500 mg PO TID 12/11/19 12/18/19 predniSONE See Taper PO DAILY 12/11/19 12/18/19 Previous Rx's Medication Instructions Recorded Mirtazapine [Remeron] 15 mg PO HS #30 tab 12/15/19 busPIRone HCl [Buspar] 7.5 mg PO BID #30 tab 12/15/19 Metoclopramide [Reglan] 10 mg PO TID PRN #15 tab 12/18/19 Allergies Allergy/AdvReac Type Severity Reaction Status Date / Time No Known Allergies Allergy Verified 12/21/19 11:08 Review of Systems ROS Statement: Those systems with pertinent positive or pertinent negative responses have been documented in the HPI. ROS Other: All systems not noted in ROS Statement are negative. Past Medical History Past Medical History: Chest Pain / Angina, COPD, CVA/TIA, GERD/Reflux, Hypertension, Osteoarthritis (OA), Rheumatoid Arthritis (RA) Additional Past Medical History / Comment(s): colitis/sepsis/R renal cyst. pancreatitis, bronchitis, TIA, anemia-unknown cause, migraines, osteoporosis, p ast R femur fracture with surgery.past l2 compression fx, [place] sep 2019. History of Any Multi-Drug Resistant Organisms: None Reported Past Surgical History: Appendectomy, Back Surgery, Cholecystectomy, Orthopedic Surgery, Tonsillectomy Additional Past Surgical History / Comment(s): Pancreatic stents-since removed, 6 back surgeries with 2 fusions, right oophorectomy due to ectopic , EGD/colonoscopy, right leg alice inserted d/t fracture, Past Anesthesia/Blood Transfusion Reactions: No Reported Reaction Additional Past Anesthesia/Blood Transfusion Reaction / Comment(s): Pt has received blood in past without reaction. Past Psychological History: No Psychological Hx Reported Smoking Status: Former smoker Past Alcohol Use History: None Reported Past Drug Use History: None Reported - Past Family History Father Family Medical History: Cancer, Liver Disease Additional Family Medical History / Comment(s): Father was an alcoholic. He from lung/ liver cancer. Mother Family Medical History: Cancer, CVA/TIA, Hypertension Additional Family Medical History / Comment(s): Mother had breast and colon cancer. She of liver cancer at the age of 78 yrs. General Exam - General Exam Comments Initial Comments: 64 year old female, no distress. Limitations: no limitations General appearance: alert, in no apparent distress Head exam: Present: atraumatic, normocephalic, normal inspection Eye exam: Present: normal appearance, PERRL, EOMI. Absent: scleral icterus, conjunctival injection, periorbital swelling ENT exam: Present: normal exam, mucous membranes moist Neck exam: Present: normal inspection. Absent: tenderness, meningismus, lymphadenopathy Respiratory exam: Present: normal lung sounds bilaterally Cardiovascular Exam: Present: regular rate, normal rhythm, normal heart sounds. Absent: systolic murmur, diastolic murmur, rubs, gallop, clicks GI/Abdominal exam: Present: soft, tenderness (epigastric tenderness), normal bowel sounds. Absent: distended, guarding, rebound, rigid Extremities exam: Present: normal inspection, full ROM, normal capillary refill. Absent: tenderness, pedal edema, joint swelling, calf tenderness Back exam: Present: normal inspection Neurological exam: Present: alert, oriented X3, CN II-XII intact Psychiatric exam: Present: normal affect, normal mood Skin exam: Present: warm, dry, intact, normal color. Absent: rash Course Vital Signs 12/21/19 12/21/19 11:05 12:32 Temperature 98.2 F Pulse Rate 74 62 Respiratory 18 20 Rate Blood Pressure 163/87 167/98 O2 Sat by Pulse 96 98 Oximetry - Reevaluation(s) Reevaluation #1: 12/21/19 13:20 Contacted patient's PCP Dr. Calvin and stated there is no lab abnormalities the Patient does not need to be admitted. Medical Decision Making - Medical Decision Making 64-year-old female well-known to emergency Department with chronic abdominal pain. She presents today with worsening pain nausea and vomiting. Similar symptoms as she was in the emergency department on the . Patient states she believes is her chronic pancreatitis. At this time patient's labwork was reviewed and unremarkable. She is given a liter bolus of fluids. Patient has b een to the emergency department multiple times in past few weeks with regards to this. I did contact patient's PCP status there is nothing abnormal Patient should be discharged home. She said no vomiting and emergency department and is resting comfortably in bed in no significant distress. Patient will be discharged at this time with follow-up with PCP tomorrow. - Lab Data Result diagrams: 12/21/19 11:55 12/21/19 11:55 Lab Results 12/21/19 12/21/19 12/21/19 Range/Units 11:55 11:55 11:55 WBC 10.7 H (3.8-10.6) k/uL RBC 4.65 (3.80-5.40) m/uL Hgb 12.8 (11.4-16.0) gm/dL Hct 41.2 (34.0-46.0) % MCV 88.6 (80.0-100.0) fL MCH 27.5 (25.0-35.0) pg MCHC 31.1 (31.0-37.0) g/dL RDW 13.9 (11.5-15.5) % Plt Count 409 (150-450) k/uL Neutrophils % 68 % Lymphocytes % 23 % Monocytes % 5 % Eosinophils % 2 % Basophils % 0 % Neutrophils # 7.3 (1.3-7.7) k/uL Lymphocytes # 2.4 (1.0-4.8) k/uL Monocytes # 0.5 (0-1.0) k/uL Eosinophils # 0.2 (0-0.7) k/uL Basophils # 0.0 (0-0.2) k/uL PT 9.5 (9.0-12.0) sec INR 0.9 (<1.2) APTT 22.4 (22.0-30.0) sec Sodium (137-145) mmol/L Potassium (3.5-5.1) mmol/L Chloride (98-107) mmol/L Carbon Dioxide (22-30) mmol/L Anion Gap mmol/L BUN (7-17) mg/dL Creatinine (0.52-1.04) mg/dL Est GFR (CKD-EPI)AfAm (>60 ml/min/1.73 sqM) Est GFR (CKD-EPI)NonAf (>60 ml/min/1.73 sqM) Glucose (74-99) mg/dL Plasma Lactic Acid Derek 2.0 (0.7-2.0) mmol/L Calcium (8.4-10.2) mg/dL Total Bilirubin (0.2-1.3) mg/dL AST (14-36) U/L ALT (4-34) U/L Alkaline Phosphatase (38-126) U/L Total Protein (6.3-8.2) g/dL Albumin (3.5-5.0) g/dL Amylase (30-110) U/L Lipase (23-300) U/L Urine Color Urine Appearance (Clear) Urine pH (5.0-8.0) Ur Specific [place] (1.001-1.035) Urine Protein (Negative) Urine Glucose (UA) (Negative) Urine Ketones (Negative) Urine Blood (Negative) Urine Nitrite (Negative) Urine Bilirubin (Negative) Urine Urobilinogen (<2.0) mg/dL Ur Leukocyte Esterase (Negative) Urine RBC (0-5) /hpf Urine WBC (0-5) /hpf Ur Squamous Epith Cells (0-4) /hpf Urine Mucus (None) /hpf 12/21/19 12/21/19 Range/Units 11:55 12:55 WBC (3.8-10.6) k/uL RBC (3.80-5.40) m/uL Hgb (11.4-16.0) gm/dL Hct (34.0-46.0) % MCV (80.0-100.0) fL MCH (25.0-35.0) pg MCHC (31.0-37.0) g/dL RDW (11.5-15.5) % Plt Count (150-450) k/uL Neutrophils % % Lymphocytes % % Monocytes % % Eosinophils % % Basophils % % Neutrophils # (1.3-7.7) k/uL Lymphocytes # (1.0-4.8) k/uL Monocytes # (0-1.0) k/uL Eosinophils # (0-0.7) k/uL Basophils # (0-0.2) k/uL PT (9.0-12.0) sec INR (<1.2) APTT (22.0-30.0) sec Sodium 138 (137-145) mmol/L Potassium 4.5 (3.5-5.1) mmol/L Chloride 103 (98-107) mmol/L Carbon Dioxide 24 (22-30) mmol/L Anion Gap 11 mmol/L BUN 14 (7-17) mg/dL Creatinine 0.72 (0.52-1.04) mg/dL Est GFR (CKD-EPI)AfAm >90 (>60 ml/min/1.73 sqM) Est GFR (CKD-EPI)NonAf 90 (>60 ml/min/1.73 sqM) Glucose 160 H (74-99) mg/dL Plasma Lactic Acid Derek (0.7-2.0) mmol/L Calcium 10.0 (8.4-10.2) mg/dL Total Bilirubin 0.2 (0.2-1.3) mg/dL AST 44 H (14-36) U/L ALT 30 (4-34) U/L Alkaline Phosphatase 85 (38-126) U/L Total Protein 7.7 (6.3-8.2) g/dL Albumin 4.3 (3.5-5.0) g/dL Amylase 50 (30-110) U/L Lipase 296 (23-300) U/L Urine Color Yellow Urine Appearance Clear (Clear) Urine pH 6.0 (5.0-8.0) Ur Specific [place] 1.014 (1.001-1.035) Urine Protein Trace H (Negative) Urine Glucose (UA) Negative (Negative) Urine Ketones Negative (Negative) Urine Blood Moderate H (Negative) Urine Nitrite Negative (Negative) Urine Bilirubin Negative (Negative) Urine Urobilinogen <2.0 (<2.0) mg/dL Ur Leukocyte Esterase Negative (Negative) Urine RBC 45 H (0-5) /hpf Urine WBC 2 (0-5) /hpf Ur Squamous Epith Cells 2 (0-4) /hpf Urine Mucus Rare H (None) /hpf Disposition Clinical Impression: Chronic abdominal pain, Nausea & vomiting Disposition: HOME SELF-CARE Condition: Good Instructions (If sedation given, give patient instructions): Abdominal Pain (ED) Additional Instructions: See PCP tomorrow for follow up, return to ED if any alarming signs or symptoms occur. Is patient prescribed a controlled substance at d/c from ED?: No Referrals: Isac Calvin MD [Primary Care Provider] - 1-2 days Time of Disposition: 13:22
[2019-12-21 12:06] LABS: Basophils % (A) 0 %; Eosinophils # (A) 0.2 k/uL (0-0.7); Eosinophils % (A) 2 %; HCT 41.2 % (34.0-46.0); HGB 12.8 gm/dL (11.4-16.0); Lymphocytes # (A) 2.4 k/uL (1.0-4.8); Lymphocytes % (A) 23 %; MCH 27.5 pg (25.0-35.0); MCHC 31.1 g/dL (31.0-37.0); MCV 88.6 fL (80.0-100.0); Mean Platelet Volume 7.3; Monocytes # (A) 0.5 k/uL (0-1.0); Monocytes % (A) 5 %; Neutrophils # (A) 7.3 k/uL (1.3-7.7); Neutrophils % (A) 68 %; Platelet Count 409 k/uL (150-450); RBC 4.65 m/uL (3.80-5.40); RDW 13.9 % (11.5-15.5); WBC 10.7 k/uL (3.8-10.6)
[2019-12-21 12:17] LABS: ALT 30 U/L (4-34); AST 44 U/L (14-36); African American GFR (CKD) >90 (>60 ml/min/1.73 sqM); Albumin 4.3 g/dL (3.5-5.0); Alkaline Phosphatase 85 U/L (38-126); Amylase 50 U/L (30-110); Anion Gap 11 mmol/L; Blood Urea Nitrogen 14 mg/dL (7-17); Carbon Dioxide 24 mmol/L (22-30); Chloride 103 mmol/L (98-107); Glucose 160 mg/dL (74-99); Non-African American GFR(CKD) 90 (>60 ml/min/1.73 sqM); Potassium 4.5 mmol/L (3.5-5.1); Sodium 138 mmol/L (137-145); Total Bilirubin 0.2 mg/dL (0.2-1.3); Total Protein 7.7 g/dL (6.3-8.2)
[2019-12-21 12:21] LABS: INR 0.9 (<1.2); Partial Thromboplastin Time 22.4 sec (22.0-30.0); Prothrombin Time 9.5 sec (9.0-12.0)
[2019-12-21 13:07] LABS: Appearance,Urine Clear (Clear); Bilirubin,Urine Negative (Negative); Blood,Urine Moderate (Negative); Color,Urine Yellow; Glucose,Urine (UA) Negative (Negative); Ketones,Urine Negative (Negative); Leukocyte Esterase,Urine Negative (Negative); Mucus,Urine Rare /hpf; Nitrite,Urine Negative (Negative); Protein,Urine Trace (Negative); RBC,Urine 45 /hpf (0-5); Specific Gravity,Urine 1.014 (1.001-1.035); Squamous Epithelial Cell,Urine 2 /hpf (0-4); Urobilinogen,Urine <2.0 mg/dL (<2.0); WBC,Urine 2 /hpf (0-5)
[2019-12-21] MEDS ORDERED: ACET/COD 300 MG/30 MG STARTER PACK 6 TAB BTL PO STA (13:22)
[2019-12-21] MEDS ORDERED: MORPHINE SULFATE 2 MG/ML SYRINGE IVP ONE (13:41)
[2019-12-21 14:03] VITALS: BP 168/91; PULSE 90; RESP 18; TEMP 98
== END 2019-12-21 13:45 | disposition home or self-care (01) ==
LOC: EC 11:04
DX: G89.29 Other chronic pain (principal); R10.9 Unspecified abdominal pain; R11.2 Nausea with vomiting, unspecified; R19.7 Diarrhea, unspecified; K21.9 Gastro-esophageal reflux disease without esophagitis; I10 Essential (primary) hypertension; M06.9 Rheumatoid arthritis, unspecified; Z86.73 Personal history of transient ischemic attack (TIA), and cerebral infarction without residual deficits; Z87.19 Personal history of other diseases of the digestive system; Z90.49 Acquired absence of other specified parts of digestive tract; Z90.721 Acquired absence of ovaries, unilateral; Z87.891 Personal history of nicotine dependence; Z79.52 Long term (current) use of systemic steroids; Z79.891 Long term (current) use of opiate analgesic; Z79.899 Other long term (current) drug therapy
CPT/HCPCS: 99284; 96374; 96375 ×3; 96376; 36415; 80053; 82150; 83605; 83690; 85025; 85610; 85730; 81001; J2270 ×2; J2405; J1885; C9113

== ENCOUNTER 2019-12-29 08:51 | Day surgery (SDC) | payer BC ==
[2019-12-29] MEDS ORDERED: ALPRAZolam 0.5 MG TAB PO ONE (09:23)
[2019-12-29 09:42] VITALS: TEMP 98.3
[2019-12-29 10:04] LABS: Mean Platelet Volume 7.7; Platelet Count 345 k/uL (150-450)
[2019-12-29 10:08] LABS: INR 0.9 (<1.2); Prothrombin Time 9.5 sec (9.0-12.0)
--- NOTE | 2019-12-29 10:41 | US ---
EXAMINATION TYPE: US groin RT DATE OF EXAM: 12/29/2019 COMPARISON: CT dated 12/11/2019 CLINICAL HISTORY: see order from Dr Calvin-. Right anterior pelvis mass with request for biopsy TECHNIQUE/FINDINGS: A single grayscale image of the abdomen was submitted for ultrasound guided soft tissue biopsy. No definitive sonographic mass on the submitted image. The exam of may have been compl eted under CT guidance. Refer to CT dictation of the same date. IMPRESSION: As above
[2019-12-29] MEDS ORDERED: HYDROmorphone 0.5 MG/0.5 ML SYRINGE IVP STA (10:43)
[2019-12-29] MEDS ORDERED: HYDROcodone/APAP 10-325MG 1 EACH TAB PO ONE (12:02)
--- NOTE | 2019-12-29 12:32 | CT ---
EXAMINATION TYPE: CT biopsy subcut tissue DATE OF EXAM: 12/29/2019 COMPARISON: 12/11/2019 HISTORY: Right pelvic mass CT DLP: 1110 mGycm The procedure is discussed with the patient, the risks, complications, benefits and alternatives, wer e discussed and any questions were answered. Informed consent was obtained. The patient is placed s upine on the CT table, prepped and draped in the usual sterile fashion. Utilizing a 20-gauge core biopsy needle access into the right pelvic mass was achieved with 2 samples obtained. Pathology pending. All elements of maximal barrier and sterile technique were utilized. The patient remained stable throughout the procedure with no immediate postprocedural complication. IMPRESSION: 1. Successful CT guided core biopsy right pelvic mass
[2019-12-29 13:35] VITALS: BP 128/78; PULSE 72; RESP 16
== END 2019-12-29 13:17 | disposition home or self-care (01) ==
LOC: RADPROMAIN 08:51
PROVIDERS: ATTEND Family Medicine
DX: R19.00 Intra-abdominal and pelvic swelling, mass and lump, unspecified site (principal)
CPT/HCPCS: 49180; 88305; 82947; 85049; 85610; 36415; 76882; 77012; J1170

== ENCOUNTER 2020-01-21 16:12 | Emergency (ER) | payer BC ==
[2020-01-21 16:25] VITALS: BP 140/91; PULSE 86; RESP 18; TEMP 98.4
[2020-01-21] MEDS ORDERED: KETOROLAC 30 MG/ML 1 ML VIAL IM STA (16:44)
[2020-01-21] MEDS ORDERED: HYDROmorphone 1 MG/ML 1 ML SYRINGE IM STA (16:44)
--- NOTE | 2020-01-21 17:23 | XR ---
EXAMINATION TYPE: XR shoulder complete LT DATE OF EXAM: 01/21/2020 CLINICAL HISTORY: pain COMPARISON: NONE TECHNIQUE: Three views of the left shoulder are obtained. FINDINGS: There is no acute fracture/dislocation evident. The acromioclavicular and glenohumeral lalo int spaces appear within normal limits. The visualized ribs are intact and unremarkable. IMPRESSION: 1. There is no acute fracture or dislocation. ICD 10 NO FRACTURE, INITIAL EVALUATION
--- NOTE | 2020-01-21 17:27 | XR ---
EXAMINATION TYPE: XR lumbosacral spine min 4V DATE OF EXAM: 01/21/2020 CLINICAL HISTORY: pain COMPARISON: Radiographs 01/19/[address] abdomen pelvis 12/11/2019 TECHNIQUE: Frontal, lateral, and oblique images of the lumbar spine are obtained. FINDINGS: Extensive postoperative changes redemonstrated. Again noted is loss of height of the L2 seg ment superior segment unchanged from recent CT. Noted are changes of fusion at multiple levels with d ecompressive laminectomy. Pedicular screws are in place. Vertebroplasty changes are noted. Talonavicu lar degenerative changes. IMPRESSION: No acute fracture or dislocation is seen in the lumbar spine.ICD 10 NO FRACTURE, INITIAL EVALUATION
--- NOTE | 2020-01-21 17:42 | ED ---
Fall HPI - General Chief Complaint: Fall Stated Complaint: Fall, Back/shoulder pain Time Seen by Provider: 01/21/20 16:28 Source: patient Mode of arrival: wheelchair - History of Present Illness Initial Comments: 64-year-old female patient presents to the emergency department today for evaluation of low back pain and left shoulder pain after experiencing a fall 2 days ago. Patient states she was walking to the house going to the bathroom when she slipped and fell. Patient denies hitting her head or losing consciousness with the fall. She states that she's been having increased low back pain and left shoulder pain since the injury. Denies any numbness or tingling to the arms or legs. Denies any saddle anesthesia or loss of bowel or bladder control. Patient states that she generally takes morphine at home but she is out of her medication right now. States she is calling her doctor in the morning for refill. Patient denies any chest pain, shortness of breath, diz ziness, weakness, abdominal pain, nausea, vomiting, or difficulties with bowel movements or urination. - Related Data Home Medications Medication Instructions Recorded Confirmed amLODIPine BESYLATE/BENAZEPRIL 1 cap PO DAILY 05/31/19 12/29/19 [Lotrel 2.5-10 MG] Atorvastatin [Lipitor] 40 mg PO HS 09/08/19 12/29/19 Diphenox-Atrop 2.5-0.025 mg 1 tab PO TID PRN 09/08/19 12/29/19 [Lomotil] Gabapentin 800 mg PO TID 09/08/19 12/29/19 Omeprazole 20 mg PO DAILY 09/08/19 12/29/19 Butalb/APAP/Caff 50-325-40Mg 1 tab PO Q12H PRN 12/11/19 12/29/19 [Fioricet 50-325-40] HYDROcodone/APAP 10-325MG [[place] 1 tab PO QID PRN 12/11/19 12/29/19 10-325] Metoprolol Succinate [Toprol XL] 25 mg PO DAILY 12/11/19 12/29/19 Ondansetron Odt [Zofran ODT] 4 mg PO Q8H PRN 12/11/19 12/29/19 Sucralfate [Carafate] 1 gm PO TID 12/11/19 12/29/19 Ticagrelor [Brilinta] 90 mg PO BID 12/11/19 12/29/19 predniSONE See Taper PO DAILY 12/11/19 12/29/19 metFORMIN HCL [Glucophage] 500 mg PO BID 12/29/19 12/29/19 Previous Rx's Medication Instructions Recorded Mirtazapine [Remeron] 15 mg PO HS #30 tab 12/15/19 busPIRone HCl [Buspar] 7.5 mg PO BID #30 tab 12/15/19 Metoclopramide [Reglan] 10 mg PO TID PRN #15 tab 12/18/19 Allergies Allergy/AdvReac Type Severity Reaction Status Date / Time No Known Allergies Allergy Verified 01/21/20 16:25 Review of Systems ROS Statement: Those systems with pertinent positive or pertinent negative responses have been documented in the HPI. ROS Other: All systems not noted in ROS Statement are negative. Past Medical History Past Medical History: Chest Pain / Angina, COPD, CVA/TIA, GERD/Reflux, Hypertension, Osteoarthritis (OA), Rheumatoid Arthritis (RA) Additional Past Medical History / Comment(s): colitis/sepsis/R renal cyst. pancreatitis, bronchitis, TIA, anemia-unknown cause, migraines, osteoporosis, past R femur fracture with surgery.past l2 compression fx, [place] sep 2019. History of Any Multi-Drug Resistant Organisms: None Reported Past Surgical History: Appendectomy, Back Surgery, Cholecystectomy, Orthopedic Surgery, Tonsillectomy Additional Past Surgical History / Comment(s): Pancreatic stents-since removed, 6 back surgeries with 2 fusions, right oophorectomy due to ectopic , EGD/colonoscopy, right leg alice inserted d/t fracture, Past Anesthesia/Blood Transfusion Reactions: No Reported Reaction Additional Past Anesthesia/Blood Transfusion Reaction / Comment(s): Pt has received blood in past without reaction. Past Psychological History: No Psychological Hx Reported Smoking Status: Former smoker Past Alcohol Use History: None Reported Past Drug Use History: None Reported - Past Family History Father Family Medical History: Cancer, Liver Disease Additional Family Medical History / Comment(s): Father was an alcoholic. He from lung/ liver cancer. Mother Family Medical History: Cancer, CVA/TIA, Hypertension Additional Family Medical History / Comment(s): Mother had breast and colon cancer. She of liver cancer at the age of 78 yrs. General Exam Limitations: physical limitation General appearance: alert, in no apparent distress, other (This is a well- developed, well-nourished adult female patient in no acute distress. Vital signs upon presentation are temperature 98.4F, pulse 86, respirations 18, blood pressure 140/91, pulse ox 98% on room air.) Eye exam: Present: normal appearance, PERRL, EOMI. Absent: scleral icterus, conjunctival injection, periorbital swelling ENT exam: Present: normal exam, normal oropharynx, mucous membranes moist Neck exam: Present: normal inspection, full ROM, other (Nontender, no step-off, no deformity to firm midline palpation of the posterior cervical spine. Full range of motion without pain or limitation.). Absent: tenderness, meningismus, lymphadenopathy Respiratory exam: Present: normal lung sounds bilaterally. Absent: respiratory distress, wheezes, rales, rhonchi, stridor Cardiovascular Exam: Present: regular rate, normal rhythm, normal heart sounds. Absent: systolic murmur, diastolic murmur, rubs, gallop, clicks GI/Abdominal exam: Present: soft, normal bowel sounds. Absent: distended, tenderness, guarding, rebound, rigid Extremities exam: Present: normal inspection, full ROM, normal capillary refill, other (Skin to the arms and legs is pink, warm, dry. Cap refills less than 3 seconds. Pedal and posttibial pulses are 2+ and equal bilaterally. Radial pulses are 2+ and equal bilaterally.). Absent: tenderness, pedal edema, joint swelling, calf tenderness Back exam: Present: normal inspection, vertebral tenderness (Sacral tenderness), other (No bony step-off or deformity noted to palpation of the spine.) Neurological exam: Present: alert, oriented X3, CN II-XII intact Psychiatric exam: Present: normal affect, normal mood Skin exam: Present: warm, dry, intact, normal color. Absent: rash Course Vital Signs 01/21/20 16:22 Temperature 98.4 F Pulse Rate 86 Respiratory 18 Rate Blood Pressure 140/91 O2 Sat by Pulse 98 Oximetry Medical Decision Making - Medical Decision Making 64-year-old female patient presents to the emergency department today for evaluation of left shoulder pain and low back pain after experiencing a fall 2 days ago. Physical examination did reveal decreased range of motion to the left shoulder due to increased pain with movement. There is tenderness over the sacral spine. She has no concerning symptoms for cauda equina. She is neurologically intact with no focal deficits. X-rays of the left shoulder and spine were obtained and showed no evidence for acute fractures. Patient is given IM dose of pain medicine here. She'll be discharged follow-up with her primary care physician for recheck in 1-2 days. Return parameters were discu ssed in detail. She verbalizes understanding and agrees with this plan. - Radiology Data Radiology results: report reviewed, image reviewed 4 views of the lumbosacral spine are obtained. Report was reviewed in its entirety. Impression by Dr. Dunn shows no acute fracture dislocation seen in the lumbar spine. 3 views of the left shoulder obtained. Report is reviewed in its entirety. Impression by Dr. Dunn shows no acute fracture dislocation Disposition Clinical Impression: Contusion of lower back, Left shoulder strain Disposition: HOME SELF-CARE Condition: Good Instructions (If sedation given, give patient instructions): Back Pain (ED), Fall Prevention (ED), Shoulder Pain (ED) Additional Instructions: Continue home medications as directed. Apply ice to the painful areas. Follow- up with your primary care physician for recheck in 1-2 days. Return to the emergency department immediately for any new, worsening, or concerning symptoms. Is patient prescribed a controlled substance at d/c from ED?: No Referrals: Isac Calvin MD [Primary Care Provider] - 1-2 days Time of Disposition: 17:42
[2020-01-21] MEDS ORDERED: ACET/COD 300 MG/30 MG STARTER PACK 6 TAB BTL PO STA (17:46)
== END 2020-01-21 18:00 | disposition home or self-care (01) ==
LOC: EC 16:12
DX: S30.0XXA Contusion of lower back and pelvis, initial encounter (principal); S46.912A Strain of unspecified muscle, fascia and tendon at shoulder and upper arm level, left arm, initial encounter; J44.9 Chronic obstructive pulmonary disease, unspecified; K21.9 Gastro-esophageal reflux disease without esophagitis; I10 Essential (primary) hypertension; Z79.51 Long term (current) use of inhaled steroids; Z79.84 Long term (current) use of oral hypoglycemic drugs; Z79.899 Other long term (current) drug therapy; Z87.891 Personal history of nicotine dependence; Z86.73 Personal history of transient ischemic attack (TIA), and cerebral infarction without residual deficits; W01.0XXA Fall on same level from slipping, tripping and stumbling without subsequent striking against object, initial encounter; Y93.01 Activity, walking, marching and hiking
CPT/HCPCS: 72110; 73030; 99283; 96372; J1170

== ENCOUNTER 2020-02-01 14:56 | Emergency (ER) | payer BC ==
[2020-02-01 15:05] VITALS: TEMP 98.8
[2020-02-01] MEDS ORDERED: SODIUM CHLORIDE 0.9% 1,000 ML IV STA (15:17)
[2020-02-01] MEDS ORDERED: HYDROmorphone 0.5 MG/0.5 ML SYRINGE IVP STA (15:17)
[2020-02-01] MEDS ORDERED: ONDANSETRON 4 MG/2 ML VIAL IVP STA (15:17)
--- NOTE | 2020-02-01 15:20 | ED ---
Abdominal Pain HPI - General Source: patient Mode of arrival: wheelchair Limitations: no limitations <Zion Peña - Last Filed: 02/02/20 20:38> <Janine Gray - Last Filed: 02/03/20 23:05> - General Chief Complaint: Abdominal Pain Stated Complaint: Abd pain, Vomiting Time Seen by Provider: 02/01/20 15:07 - History of Present Illness Initial Comments: Patient is a 64-year-old female with history of chronic pancreatitis presenting to emergency Department with a chief complaint of finger tightness. Patient states about 3 days ago she developed nausea with multiple episodes of nonbilious, nonbloody vomiting. Also reports right upper quadrant epigastric pain. States she is not able to keep any liquids or fluids down. States this feels like her pancreatitis is flaring up. Denies any drinking. States she also has a hiatal hernia and is scheduled for an upper scope with Dr. Abernathy in few Days. Denies any vaginal urinary symptoms. Denies taking medication to alleviate the symptoms. (Zion Peña) - Related Data Home Medications Medication Instructions Recorded Confirmed amLODIPine BESYLATE/BENAZEPRIL 1 cap PO DAILY 05/31/19 12/29/19 [Lotrel 2.5-10 MG] Atorvastatin [Lipitor] 40 mg PO HS 09/08/19 12/29/19 Diphenox-Atrop 2.5-0.025 mg 1 tab PO TID PRN 09/08/19 12/29/19 [Lomotil] Gabapentin 800 mg PO TID 09/08/19 12/29/19 Omeprazole 20 mg PO DAILY 09/08/19 12/29/19 Butalb/APAP/Caff 50-325-40Mg 1 tab PO Q12H PRN 12/11/19 12/29/19 [Fioricet 50-325-40] HYDROcodone/APAP 10-325MG [[place] 1 tab PO QID PRN 12/11/19 12/29/19 10-325] Metoprolol Succinate [Toprol XL] 25 mg PO DAILY 12/11/19 12/29/19 Ondansetron Odt [Zofran ODT] 4 mg PO Q8H PRN 12/11/19 12/29/19 Sucralfate [Carafate] 1 gm PO TID 12/11/19 12/29/19 Ticagrelor [Brilinta] 90 mg PO BID 12/11/19 12/29/19 predniSONE See Taper PO DAILY 12/11/19 12/29/19 metFORMIN HCL [Glucophage] 500 mg PO BID 12/29/19 12/29/19 Previous Rx's Medication Instructions Recorded Mirtazapine [Remeron] 15 mg PO HS #30 tab 12/15/19 busPIRone HCl [Buspar] 7.5 mg PO BID #30 tab 12/15/19 Metoclopramide [Reglan] 10 mg PO TID PRN #15 tab 12/18/19 Allergies Allergy/AdvReac Type Severity Reaction Status Date / Time No Known Allergies Allergy Verified 02/01/20 15:05 Review of Systems ROS Other: All systems not noted in ROS Statement are negative. <Zion Peña - Last Filed: 02/02/20 20:38> ROS Other: All systems not noted in ROS Statement are negative. <Janine Gray - Last Filed: 02/03/20 23:05> ROS Statement: Those systems with pertinent positive or pertinent negative responses have been documented in the HPI. Past Medical History Past Medical History: Chest Pain / Angina, COPD, CVA/TIA, GERD/Reflux, Hypertension, Osteoarthritis (OA), Rheumatoid Arthritis (RA) Additional Past Medical History / Comment(s): colitis/sepsis/R renal cyst. pancreatitis, bronchitis, TIA, anemia-unknown cause, migraines, osteoporosis, past R femur fracture with surgery.past l2 compression fx, [place] sep 2019. History of Any Multi-Drug Resistant Organisms: None Reported Past Surgical History: Appendectomy, Back Surgery, Cholecystectomy, Orthopedic Surgery, Tonsillectomy Additional Past Surgical History / Comment(s): Pancreatic stents-since removed, 6 back surgeries with 2 fusions, right oophorectomy due to ectopic , EGD/colonoscopy, right leg alice inserted d/t fracture, Past Anesthesia/Blood Transfusion Reactions: No Reported Reaction Additional Past Anesthesia/Blood Transfusion Reaction / Comment(s): Pt has received blood in past without reaction. Past Psychological History: No Psychological Hx Reported Smoking Status: Former smoker Past Alcohol Use History: None Reported Past Drug Use History: None Reported - Past Family History Father Family Medical History: Cancer, Liver Disease Additional Family Medical History / Comment(s): Father was an alcoholic. He from lung/ liver cancer. Mother Family Medical History: Cancer, CVA/TIA, Hypertension Additional Family Medical History / Comment(s): Mother had breast and colon cancer. She of liver cancer at the age of 78 yrs. <Zion Peña - Last Filed: 02/02/20 20:38> General Exam Limitations: no limitations General appearance: alert, in no apparent distress Head exam: Present: atraumatic, normocephalic, normal inspection Eye exam: Present: normal appearance, PERRL, EOMI Pupils: Present: normal accommodation ENT exam: Present: normal exam, normal oropharynx, mucous membranes moist Neck exam: Present: normal inspection, full ROM Respiratory exam: Present: normal lung sounds bilaterally Cardiovascular Exam: Present: regular rate, normal rhythm, normal heart sounds GI/Abdominal exam: Present: soft, tenderness (Epigastric, right upper quadrant). Absent: distended, guarding, rebound, rigid Extremities exam: Present: normal inspection, full ROM Back exam: Present: normal inspection, full ROM. Absent: CVA tenderness (R), CVA tenderness (L) Neurological exam: Present: alert, oriented X3 Psychiatric exam: Present: normal affect, normal mood Skin exam: Present: warm, dry, intact, normal color <Zion Peña - Last Filed: 02/02/20 20:38> Course Vital Signs 02/01/20 02/01/20 02/01/20 15:03 16:05 17:58 Temperature 98.8 F Pulse Rate 78 77 64 Respiratory 18 20 18 Rate Blood Pressure 168/96 158/88 135/66 O2 Sat by Pulse 100 100 99 Oximetry Medical Decision Making - Lab Data Result diagrams: 02/01/20 16:15 02/01/20 16:15 <Zion Peña - Last Filed: 02/02/20 20:38> - Lab Data Result diagrams: 02/01/20 16:15 02/01/20 16:15 <Janine Gray - Last Filed: 02/03/20 23:05> - Medical Decision Making Patient is a 64-year-old female history of pancreatitis presenting to the emergency department with a chief complaint of pancreatitis. On exam patient did have right upper quadrant and epigastric abdominal tenderness. Patient was given fluids antiemetics and analgesia. CBC CMP UA are unremarkable. Lipase is within normal limits. Return parameters thoroughly discussed the patient is understanding and agreeable. She'll be discharged with Tylenol 3 starter pack. Advised about the possible side effects of the medication. case discussed with physician. (Zion Peña) I was available for consultation in the emergency department. The history and physical exam were done by the midlevel provider. I was consulted for this patients care. I reviewed the case with the midlevel provider and based on their presentation of the patient, I agree with the assessment, medical decision making and plan of care as documented. Chart was dictated using [employer] dictation software. Attempts were made to correct any dictation errors however some typographical errors may persist. Patient was seen during a national state of emergency due to the Covid-19 pandemic. (Janine Gray) - Lab Data Lab Results 02/01/20 02/01/20 02/01/20 Range/Units 16:15 16:15 17:26 WBC 6.6 (3.8-10.6) k/uL RBC 4.46 (3.80-5.40) m/uL Hgb 12.6 (11.4-16.0) gm/dL Hct 39.3 (34.0-46.0) % MCV 88.1 (80.0-100.0) fL MCH 28.3 (25.0-35.0) pg MCHC 32.2 (31.0-37.0) g/dL RDW 14.0 (11.5-15.5) % Plt Count 377 (150-450) k/uL Neutrophils % 50 % Lymphocytes % 38 % Monocytes % 5 % Eosinophils % 4 % Basophils % 1 % Neutrophils # 3.3 (1.3-7.7) k/uL Lymphocytes # 2.5 (1.0-4.8) k/uL Monocytes # 0.3 (0-1.0) k/uL Eosinophils # 0.3 (0-0.7) k/uL Basophils # 0.1 (0-0.2) k/uL Sodium 139 (137-145) mmol/L Potassium 4.2 (3.5-5.1) mmol/L Chloride 104 (98-107) mmol/L Carbon Dioxide 26 (22-30) mmol/L Anion Gap 9 mmol/L BUN 13 (7-17) mg/dL Creatinine 0.66 (0.52-1.04) mg/dL Est GFR (CKD-EPI)AfAm >90 (>60 ml/min/1.73 sqM) Est GFR (CKD-EPI)NonAf >90 (>60 ml/min/1.73 sqM) Glucose 88 (74-99) mg/dL Calcium 9.8 (8.4-10.2) mg/dL Total Bilirubin 0.3 (0.2-1.3) mg/dL AST 24 (14-36) U/L ALT 19 (4-34) U/L Alkaline Phosphatase 114 (38-126) U/L Total Protein 7.9 (6.3-8.2) g/dL Albumin 4.8 (3.5-5.0) g/dL Lipase 238 (23-300) U/L Urine Color Light Yellow Urine Appearance Clear (Clear) Urine pH 6.5 (5.0-8.0) Ur Specific [place] 1.006 (1.001-1.035) Urine Protein Negative (Negative) Urine Glucose (UA) Negative (Negative) Urine Ketones Negative (Negative) Urine Blood Moderate H (Negative) Urine Nitrite Negative (Negative) Urine Bilirubin Negative (Negative) Urine Urobilinogen <2.0 (<2.0) mg/dL Ur Leukocyte Esterase Negative (Negative) Urine RBC 19 H (0-5) /hpf Urine WBC 5 (0-5) /hpf Ur Squamous Epith Cells 1 (0-4) /hpf Amorphous Sediment Rare H (None) /hpf Urine Bacteria Rare H (None) /hpf Urine Mucus Rare H (None) /hpf Disposition Is patient prescribed a controlled substance at d/c from ED?: No Time of Disposition: 17:34 <Zion Peña - Last Filed: 02/02/20 20:38> <Janine Gray - Last Filed: 02/03/20 23:05> Clinical Impression: Abdominal pain Disposition: HOME SELF-CARE Condition: Stable Instructions (If sedation given, give patient instructions): Abdominal Pain (ED) Additional Instructions: Follow-up with . Return to emergency department if symptoms worsen. Referrals: Yoselin Pereira DO [Primary Care Provider] - 1-2 days
[2020-02-01 16:29] LABS: Basophils # (A) 0.1 k/uL (0-0.2); Basophils % (A) 1 %; Eosinophils # (A) 0.3 k/uL (0-0.7); Eosinophils % (A) 4 %; HCT 39.3 % (34.0-46.0); HGB 12.6 gm/dL (11.4-16.0); Lymphocytes # (A) 2.5 k/uL (1.0-4.8); Lymphocytes % (A) 38 %; MCH 28.3 pg (25.0-35.0); MCHC 32.2 g/dL (31.0-37.0); MCV 88.1 fL (80.0-100.0); Mean Platelet Volume 6.8; Monocytes # (A) 0.3 k/uL (0-1.0); Monocytes % (A) 5 %; Neutrophils # (A) 3.3 k/uL (1.3-7.7); Neutrophils % (A) 50 %; Platelet Count 377 k/uL (150-450); RBC 4.46 m/uL (3.80-5.40); WBC 6.6 k/uL (3.8-10.6)
[2020-02-01 16:39] LABS: ALT 19 U/L (4-34); AST 24 U/L (14-36); African American GFR (CKD) >90 (>60 ml/min/1.73 sqM); Albumin 4.8 g/dL (3.5-5.0); Alkaline Phosphatase 114 U/L (38-126); Anion Gap 9 mmol/L; Blood Urea Nitrogen 13 mg/dL (7-17); Calcium 9.8 mg/dL (8.4-10.2); Carbon Dioxide 26 mmol/L (22-30); Chloride 104 mmol/L (98-107); Glucose 88 mg/dL (74-99); Non-African American GFR(CKD) >90 (>60 ml/min/1.73 sqM); Potassium 4.2 mmol/L (3.5-5.1); Sodium 139 mmol/L (137-145); Total Bilirubin 0.3 mg/dL (0.2-1.3); Total Protein 7.9 g/dL (6.3-8.2)
[2020-02-01] MEDS ORDERED: ACET/COD 300 MG/30 MG STARTER PACK 6 TAB BTL PO STA (17:34)
[2020-02-01 17:38] LABS: Amorphous Sediment,Urine Rare /hpf; Appearance,Urine Clear (Clear); Bacteria,Urine Rare /hpf; Bilirubin,Urine Negative (Negative); Blood,Urine Moderate (Negative); Color,Urine Light Yellow; Glucose,Urine (UA) Negative (Negative); Ketones,Urine Negative (Negative); Leukocyte Esterase,Urine Negative (Negative); Mucus,Urine Rare /hpf; Nitrite,Urine Negative (Negative); PH, Urine 6.5 (5.0-8.0); Protein,Urine Negative (Negative); RBC,Urine 19 /hpf (0-5); Specific Gravity,Urine 1.006 (1.001-1.035); Squamous Epithelial Cell,Urine 1 /hpf (0-4); Urobilinogen,Urine <2.0 mg/dL (<2.0); WBC,Urine 5 /hpf (0-5)
[2020-02-01 17:59] VITALS: BP 135/66; PULSE 64; RESP 18
== END 2020-02-01 17:58 | disposition home or self-care (01) ==
LOC: EC 14:56
DX: R10.11 Right upper quadrant pain (principal); R10.13 Epigastric pain; R11.10 Vomiting, unspecified; R10.811 Right upper quadrant abdominal tenderness; R10.816 Epigastric abdominal tenderness; J44.9 Chronic obstructive pulmonary disease, unspecified; I10 Essential (primary) hypertension; K21.9 Gastro-esophageal reflux disease without esophagitis; Z79.51 Long term (current) use of inhaled steroids; Z79.84 Long term (current) use of oral hypoglycemic drugs; Z79.899 Other long term (current) drug therapy; Z87.891 Personal history of nicotine dependence; Z86.73 Personal history of transient ischemic attack (TIA), and cerebral infarction without residual deficits; Z90.49 Acquired absence of other specified parts of digestive tract; Z90.89 Acquired absence of other organs; Z98.1 Arthrodesis status
CPT/HCPCS: 36415; 80053; 83690; 85025; 81001; 99284; 96374; 96375; 96361; J2405; J1170

== ENCOUNTER → 2020-02-04 | Outpatient (CLI) | payer BC | END | disposition home or self-care (01) | LOC: LABWHC1 09:34 | PROVIDERS: ATTEND Surgery | DX: Z11.59 Encounter for screening for other viral diseases (principal) ==

== ENCOUNTER 2020-02-06 08:10 | Day surgery (SDC) | payer BC ==
[2020-02-04 15:04] VITALS: BMI 21.1
[~2020-02-06 08:10] MED LIST: LACTATED RINGERS 1,000 ML IV SCH
[2020-02-06 08:33] VITALS: TEMP 98
[2020-02-06 08:42] LABS: Glucose,Whole Blood 194 mg/dL (75-99)
[2020-02-06] MEDS ORDERED: LACTATED RINGERS 1,000 ML IV ONE (08:45)
[2020-02-06] MEDS ORDERED: PROPOFOL 10 MG/ML 20 ML VIAL IV ONE (09:07)
[2020-02-06] MEDS ORDERED: LIDOCAINE 1% INJ 10MG/ML (20 ML MDV) ONE (09:07)
--- NOTE | 2020-02-06 09:15 | P.GSHP ---
History of Present Illness H&P Date: 02/06/20 Chief Complaint: GERD 64 female who presents for EGD. She's had issues with GERD. Patient has a history of hiatal hernia. Past Medical History Past Medical History: COPD, CVA/TIA, GERD/Reflux, Hyperlipidemia, Hypertension, Osteoarthritis (OA), Rheumatoid Arthritis (RA) Additional Past Medical History / Comment(s): colitis/sepsis/R renal cyst. pancreatitis, bronchitis, hx anemia-unknown cause, migraines, osteoporosis, past R femur fracture with surgery. past L2 compression fx, [place] sep 2019. CVA 09/2019 left sided weakness, states has hiatal hernia History of Any Multi-Drug Resistant Organisms: None Reported Past Surgical History: Appendectomy, Back Surgery, Cholecystectomy, Orthopedic Surgery, Tonsillectomy Additional Past Surgical History / Comment(s): left carotidendartectomy, Pancreatic stents-since removed, 6 back surgeries with 2 fusions, right oophorectomy due to ectopic , EGD/colonoscopy, right leg alice inserted d/t fracture, Past Anesthesia/Blood Transfusion Reactions: No Reported Reaction Additional Past Anesthesia/Blood Transfusion Reaction / Comment(s): Pt has received blood in past without reaction. Smoking Status: Former smoker - Past Family History Father Family Medical History: Cancer, Liver Disease Additional Family Medical History / Comment(s): Father was an alcoholic. He from lung/ liver cancer. Mother Family Medical History: Cancer, CVA/TIA, Hypertension Additional Family Medical History / Comment(s): Mother had breast and colon cancer. She of liver cancer at the age of 78 yrs. Medications and Allergies Home Medications Medication Instructions Recorded Confirmed Type amLODIPine BESYLATE/BENAZEPRIL 1 cap PO DAILY 05/31/19 02/04/20 History [Lotrel 2.5-10 MG] Diphenox-Atrop 2.5-0.025 mg 1 tab PO TID PRN 09/08/19 02/04/20 History [Lomotil] Gabapentin 800 mg PO TID 09/08/19 02/04/20 History Butalb/APAP/Caff 50-325-40Mg 1 tab PO Q12H PRN 12/11/19 02/04/20 History [Fioricet 50-325-40] HYDROcodone/APAP 10-325MG [[place] 1 tab PO QID PRN 12/11/19 02/04/20 History 10-325] Ticagrelor [Brilinta] 90 mg PO BID 12/11/19 02/04/20 History predniSONE See Taper PO DAILY 12/11/19 02/04/20 History busPIRone HCl [Buspar] 7.5 mg PO BID #30 tab 12/15/19 02/04/20 Rx Albuterol Nebulized [Ventolin 2.5 mg INHALATION Q4H PRN 02/04/20 02/04/20 History Nebulized] Allergies Allergy/AdvReac Type Severity Reaction Status Date / Time No Known Allergies Allergy Verified 02/04/20 14:58 Surgical - Exam Vital Signs Temp Pulse Resp BP Pulse Ox 98 F 89 18 120/59 98 02/06/20 08:32 02/06/20 08:32 02/06/20 08:32 02/06/20 08:32 02/06/20 08:32 - General well developed, well nourished, no distress - Eyes PERRL - ENT normal pinna - Neck no masses - Respiratory normal expansion - Cardiovascular Rhythm: regular - Abdomen Abdomen: soft, non tender Results - Labs Abnormal Lab Results - Last 24 Hours (Table) 02/06/20 Range/Units 08:41 POC Glucose (mg/dL) 194 H (75-99) mg/dL Assessment and Plan Assessment: GERD Hiatal hernia We'll perform EGD.
--- NOTE | 2020-02-06 09:22 | P.OP ---
Date of Procedure: 02/06/20 Preoperative Diagnosis: GERD Postoperative Diagnosis: Antral gastritis Small hiatal hernia Esophagitis Procedure(s) Performed: EGD Anesthesia: MAC Surgeon: Eze Amaya Pathology: other (Antrum, esophagus) Condition: stable Disposition: PACU Description of Procedure: The patient's placed on the endoscopy table in the lateral position. She received IV sedation. The gastroscope placed oropharynx passed in the esophagus and stomach. Scope was placed through the pylorus. The first second portion duodenum appeared normal. Scope summer back the antrum this mildly inflamed. A biopsies performed. Scope was unretroflexed and remainder of the stomach appeared normal. The patient had a small hiatal hernia. The GE junction was at 38 cm the distal esophagus appeared inflamed there is evidence of formation and erosions. A biopsies performed. The proximal esophagus appeared normal. Scope was withdrawn for patient.
[2020-02-06 09:33] VITALS: PULSE 57
[2020-02-06 09:40] VITALS: BP 128/59; RESP 16
== END 2020-02-06 10:05 | disposition home or self-care (01) ==
LOC: ORWHC2ENDO 08:10
PROVIDERS: ATTEND Surgery
DX: K29.50 Unspecified chronic gastritis without bleeding (principal); K44.9 Diaphragmatic hernia without obstruction or gangrene; K20.0 Eosinophilic esophagitis; I65.29 Occlusion and stenosis of unspecified carotid artery; J44.9 Chronic obstructive pulmonary disease, unspecified; M94.0 Chondrocostal junction syndrome [Tietze]; I12.9 Hypertensive chronic kidney disease with stage 1 through stage 4 chronic kidney disease, or unspecified chronic kidney disease; E11.22 Type 2 diabetes mellitus with diabetic chronic kidney disease; N18.3 Chronic kidney disease, stage 3 (moderate); Z87.81 Personal history of (healed) traumatic fracture; F41.1 Generalized anxiety disorder; E78.5 Hyperlipidemia, unspecified; M51.36 Other intervertebral disc degeneration, lumbar region; G43.909 Migraine, unspecified, not intractable, without status migrainosus; M79.2 Neuralgia and neuritis, unspecified; M26.609 Unspecified temporomandibular joint disorder, unspecified side; Z87.891 Personal history of nicotine dependence; M19.90 Unspecified osteoarthritis, unspecified site; M06.9 Rheumatoid arthritis, unspecified; Z86.19 Personal history of other infectious and parasitic diseases; M81.0 Age-related osteoporosis without current pathological fracture; Z87.19 Personal history of other diseases of the digestive system; Z87.09 Personal history of other diseases of the respiratory system; I69.354 Hemiplegia and hemiparesis following cerebral infarction affecting left non-dominant side; Z98.890 Other specified postprocedural states; Z97.2 Presence of dental prosthetic device (complete) (partial); Z90.49 Acquired absence of other specified parts of digestive tract; Z98.1 Arthrodesis status; Z90.721 Acquired absence of ovaries, unilateral; Z80.1 Family history of malignant neoplasm of trachea, bronchus and lung; Z80.0 Family history of malignant neoplasm of digestive organs; Z81.1 Family history of alcohol abuse and dependence; Z82.49 Family history of ischemic heart disease and other diseases of the circulatory system; Z82.3 Family history of stroke; Z80.3 Family history of malignant neoplasm of breast; Z79.899 Other long term (current) drug therapy; Z79.891 Long term (current) use of opiate analgesic
CPT/HCPCS: 88305; 43239; J2001; J2704

== ENCOUNTER 2020-02-07 12:41 | Emergency (ER) | payer BC ==
[2020-02-07 12:45] VITALS: RESP 18
[2020-02-07] MEDS ORDERED: ONDANSETRON 4 MG/2 ML VIAL IVP STA (13:00)
[2020-02-07] MEDS ORDERED: SODIUM CHLORIDE 0.9% 1,000 ML IV STA ×2 (13:00)
[2020-02-07] MEDS ORDERED: PANTOPRAZOLE 40 MG/10 ML VIAL IVP STA (13:00)
[2020-02-07] MEDS ORDERED: KETOROLAC 30 MG/ML 1 ML VIAL IVP STA (13:01)
--- NOTE | 2020-02-07 13:44 | ED ---
Abdominal Pain HPI - General Chief Complaint: Abdominal Pain Stated Complaint: post op pain, hematuria Time Seen by Provider: 02/07/20 12:47 Source: patient, RN notes reviewed, old records reviewed Mode of arrival: ambulatory Limitations: no limitations - History of Present Illness Initial Comments: Patient is a 64-year-old female who presents emergency department today for evaluation with concern for epigastric abdominal pain, concern for pancreatitis. She also reports she's noticed hematuria. She denies any dysuria. She states that she has similar pain related to her chronic pancreatitis however she did have an EGD yesterday. The report of that showed mild gastritis. Patient states that she is had some nausea and vomiting as well and does report diarrhea since her procedure. Patient states that she has had no fevers or chills. - Related Data Home Medications Medication Instructions Recorded Confirmed amLODIPine BESYLATE/BENAZEPRIL 1 cap PO DAILY 05/31/19 02/04/20 [Lotrel 2.5-10 MG] Diphenox-Atrop 2.5-0.025 mg 1 tab PO TID PRN 09/08/19 02/04/20 [Lomotil] Gabapentin 800 mg PO TID 09/08/19 02/04/20 Butalb/APAP/Caff 50-325-40Mg 1 tab PO Q12H PRN 12/11/19 02/04/20 [Fioricet 50-325-40] HYDROcodone/APAP 10-325MG [[place] 1 tab PO QID PRN 12/11/19 02/04/20 10-325] Ticagrelor [Brilinta] 90 mg PO BID 12/11/19 02/04/20 predniSONE See Taper PO DAILY 12/11/19 02/04/20 Albuterol Nebulized [Ventolin 2.5 mg INHALATION Q4H PRN 02/04/20 02/04/20 Nebulized] Previous Rx's Medication Instructions Recorded busPIRone HCl [Buspar] 7.5 mg PO BID #30 tab 12/15/19 Nitrofurantoin Monohyd/M-Cryst 100 mg PO Q12HR #14 cap 02/07/20 [Macrobid] Allergies Allergy/AdvReac Type Severity Reaction Status Date / Time No Known Allergies Allergy Verified 02/07/20 12:45 Review of Systems ROS Statement: Those systems with pertinent positive or pertinent negative responses have been documented in the HPI. ROS Other: All systems not noted in ROS Statement are negative. Past Medical History Past Medical History: Chest Pain / Angina, COPD, CVA/TIA, GERD/Reflux, Hypertension, Osteoarthritis (OA), Rheumatoid Arthritis (RA) Additional Past Medical History / Comment(s): colitis/sepsis/R renal cyst. pancreatitis, bronchitis, TIA, anemia-unknown cause, migraines, osteoporosis, past R femur fracture with surgery.past l2 compression fx, [place] sep 2019. History of Any Multi-Drug Resistant Organisms: None Reported Past Surgical History: Appendectomy, Back Surgery, Cholecystectomy, Orthopedic Surgery, Tonsillectomy Additional Past Surgical History / Comment(s): Pancreatic stents-since removed, 6 back surgeries with 2 fusions, right oophorectomy due to ectopic , EGD/colonoscopy, right leg alice inserted d/t fracture, Past Anesthesia/Blood Transfusion Reactions: No Reported Reaction Additional Past Anesthesia/Blood Transfusion Reaction / Comment(s): Pt has received blood in past without reaction. Past Psychological History: No Psychological Hx Reported Smoking Status: Former smoker - Past Family History Father Family Medical History: Cancer, Liver Disease Additional Family Medical History / Comment(s): Father was an alcoholic. He from lung/ liver cancer. Mother Family Medical History: Cancer, CVA/TIA, Hypertension Additional Family Medical History / Comment(s): Mother had breast and colon cancer. She of liver cancer at the age of 78 yrs. General Exam - General Exam Comments Initial Comments: Albertina and 64-year-old female. No significant distress. Limitations: no limitations General appearance: alert, in no apparent distress Head exam: Present: atraumatic, normocephalic, normal inspection Eye exam: Present: normal appearance, PERRL, EOMI. Absent: scleral icterus, conjunctival injection, periorbital swelling ENT exam: Present: normal exam, mucous membranes moist Neck exam: Present: normal inspection. Absent: tenderness, meningismus, lymphadenopathy Respiratory exam: Present: normal lung sounds bilaterally. Absent: respiratory distress, wheezes, rales, rhonchi, stridor Cardiovascular Exam: Present: regular rate, normal rhythm, normal heart sounds. Absent: systolic murmur, diastolic murmur, rubs, gallop, clicks GI/Abdominal exam: Present: soft, normal bowel sounds. Absent: distended, tenderness, guarding, rebound, rigid Extremities exam: Present: normal inspection, full ROM, normal capillary refill. Absent: tenderness, pedal edema, joint swelling, calf tenderness Back exam: Present: normal inspection Course Vital Signs 02/07/20 12:42 Temperature 98.7 F Pulse Rate 78 Respiratory 18 Rate Blood Pressure 112/77 O2 Sat by Pulse 98 Oximetry Medical Decision Making - Medical Decision Making The Patient is a 64-year-old female presents emergency Department today for complaints of epigastric abdominal pain. She is one-day post EGD. Patient also states chance this evidence of hematuria. Urinalysis shows 7 red blood cells 37 white blood cells. Weight Patient will have urine culture obtained and recommends starting the Patient on antibiotics for concern for UTI. Patient CBC and CMP and amylase and lipase are unremarkable. KUB shows no discharge about gas pattern and no free air is a procedure. This at this time Patient will be treated for antibiotics for UTI and can follow up with primary care doctor. - Lab Data Result diagrams: 02/07/20 13:42 02/07/20 13:42 Lab Results 02/07/20 02/07/20 02/07/20 Range/Units 13:42 13:42 13:42 WBC 8.6 (3.8-10.6) k/uL RBC 4.36 (3.80-5.40) m/uL Hgb 12.3 (11.4-16.0) gm/dL Hct 37.8 (34.0-46.0) % MCV 86.6 (80.0-100.0) fL MCH 28.1 (25.0-35.0) pg MCHC 32.4 (31.0-37.0) g/dL RDW 15.1 (11.5-15.5) % Plt Count 366 (150-450) k/uL Neutrophils % 57 % Lymphocytes % 35 % Monocytes % 6 % Eosinophils % 1 % Basophils % 0 % Neutrophils # 4.9 (1.3-7.7) k/uL Lymphocytes # 3.0 (1.0-4.8) k/uL Monocytes # 0.5 (0-1.0) k/uL Eosinophils # 0.1 (0-0.7) k/uL Basophils # 0.0 (0-0.2) k/uL PT 9.9 (9.0-12.0) sec INR 0.9 (<1.2) APTT 21.7 L (22.0-30.0) sec Sodium (137-145) mmol/L Potassium (3.5-5.1) mmol/L Chloride (98-107) mmol/L Carbon Dioxide (22-30) mmol/L Anion Gap mmol/L BUN (7-17) mg/dL Creatinine (0.52-1.04) mg/dL Est GFR (CKD-EPI)AfAm (>60 ml/min/1.73 sqM) Est GFR (CKD-EPI)NonAf (>60 ml/min/1.73 sqM) Glucose (74-99) mg/dL Calcium (8.4-10.2) mg/dL Total Bilirubin (0.2-1.3) mg/dL AST (14-36) U/L ALT (4-34) U/L Alkaline Phosphatase (38-126) U/L Total Protein (6.3-8.2) g/dL Albumin (3.5-5.0) g/dL Amylase (30-110) U/L Lipase (23-300) U/L Urine Color Light Red Urine Appearance Cloudy H (Clear) Urine pH 6.0 (5.0-8.0) Ur Specific [place] 1.015 (1.001-1.035) Urine Protein 1+ H (Negative) Urine Glucose (UA) Negative (Negative) Urine Ketones Negative (Negative) Urine Blood Large H (Negative) Urine Nitrite Negative (Negative) Urine Bilirubin Negative (Negative) Urine Urobilinogen <2.0 (<2.0) mg/dL Ur Leukocyte Esterase Large H (Negative) Urine RBC 7 H (0-5) /hpf Urine WBC 37 H (0-5) /hpf Ur Squamous Epith Cells 14 H (0-4) /hpf Urine Bacteria Few H (None) /hpf Urine Mucus Rare H (None) /hpf 02/07/20 Range/Units 13:42 WBC (3.8-10.6) k/uL RBC (3.80-5.40) m/uL Hgb (11.4-16.0) gm/dL Hct (34.0-46.0) % MCV (80.0-100.0) fL MCH (25.0-35.0) pg MCHC (31.0-37.0) g/dL RDW (11.5-15.5) % Plt Count (150-450) k/uL Neutrophils % % Lymphocytes % % Monocytes % % Eosinophils % % Basophils % % Neutrophils # (1.3-7.7) k/uL Lymphocytes # (1.0-4.8) k/uL Monocytes # (0-1.0) k/uL Eosinophils # (0-0.7) k/uL Basophils # (0-0.2) k/uL PT (9.0-12.0) sec INR (<1.2) APTT (22.0-30.0) sec Sodium 138 (137-145) mmol/L Potassium 3.4 L (3.5-5.1) mmol/L Chloride 107 (98-107) mmol/L Carbon Dioxide 22 (22-30) mmol/L Anion Gap 9 mmol/L BUN 17 (7-17) mg/dL Creatinine 0.73 (0.52-1.04) mg/dL Est GFR (CKD-EPI)AfAm >90 (>60 ml/min/1.73 sqM) Est GFR (CKD-EPI)NonAf 88 (>60 ml/min/1.73 sqM) Glucose 139 H (74-99) mg/dL Calcium 9.2 (8.4-10.2) mg/dL Total Bilirubin 0.6 (0.2-1.3) mg/dL AST 20 (14-36) U/L ALT 16 (4-34) U/L Alkaline Phosphatase 99 (38-126) U/L Total Protein 6.9 (6.3-8.2) g/dL Albumin 4.1 (3.5-5.0) g/dL Amylase 42 (30-110) U/L Lipase 237 (23-300) U/L Urine Color Urine Appearance (Clear) Urine pH (5.0-8.0) Ur Specific [place] (1.001-1.035) Urine Protein (Negative) Urine Glucose (UA) (Negative) Urine Ketones (Negative) Urine Blood (Negative) Urine Nitrite (Negative) Urine Bilirubin (Negative) Urine Urobilinogen (<2.0) mg/dL Ur Leukocyte Esterase (Negative) Urine RBC (0-5) /hpf Urine WBC (0-5) /hpf Ur Squamous Epith Cells (0-4) /hpf Urine Bacteria (None) /hpf Urine Mucus (None) /hpf Disposition Clinical Impression: UTI (urinary tract infection), Epigastric pain Disposition: HOME SELF-CARE Condition: Good Instructions (If sedation given, give patient instructions): Abdominal Pain (ED) Additional Instructions: Please use medication as discussed. Please follow up with family doctor if symptoms have not improved over the next two days. Please return to the emergency room if your symptoms increase or worsen or for any other concerns. Prescriptions: Nitrofurantoin Monohyd/M-Cryst [Macrobid] 100 mg PO Q12HR #14 cap Is patient prescribed a controlled substance at d/c from ED?: No Referrals: None,Stated [Primary Care Provider] - 1-2 days Time of Disposition: 14:58
[2020-02-07] MEDS ORDERED: HYDROmorphone 1 MG/ML 1 ML SYRINGE IVP STA (13:49)
[2020-02-07 13:56] LABS: Appearance,Urine Cloudy (Clear); Bacteria,Urine Few /hpf; Bilirubin,Urine Negative (Negative); Blood,Urine Large (Negative); Color,Urine Light Red; Glucose,Urine (UA) Negative (Negative); Ketones,Urine Negative (Negative); Leukocyte Esterase,Urine Large (Negative); Mucus,Urine Rare /hpf; Nitrite,Urine Negative (Negative); Protein,Urine 1+ (Negative); RBC,Urine 7 /hpf (0-5); Specific Gravity,Urine 1.015 (1.001-1.035); Squamous Epithelial Cell,Urine 14 /hpf (0-4); Urobilinogen,Urine <2.0 mg/dL (<2.0); WBC,Urine 37 /hpf (0-5)
[2020-02-07 14:09] LABS: ALT 16 U/L (4-34); AST 20 U/L (14-36); African American GFR (CKD) >90 (>60 ml/min/1.73 sqM); Albumin 4.1 g/dL (3.5-5.0); Alkaline Phosphatase 99 U/L (38-126); Amylase 42 U/L (30-110); Anion Gap 9 mmol/L; Blood Urea Nitrogen 17 mg/dL (7-17); Calcium 9.2 mg/dL (8.4-10.2); Carbon Dioxide 22 mmol/L (22-30); Chloride 107 mmol/L (98-107); Glucose 139 mg/dL (74-99); Non-African American GFR(CKD) 88 (>60 ml/min/1.73 sqM); Potassium 3.4 mmol/L (3.5-5.1); Sodium 138 mmol/L (137-145); Total Bilirubin 0.6 mg/dL (0.2-1.3); Total Protein 6.9 g/dL (6.3-8.2)
[2020-02-07 14:20] LABS: INR 0.9 (<1.2); Partial Thromboplastin Time 21.7 sec (22.0-30.0); Prothrombin Time 9.9 sec (9.0-12.0)
[2020-02-07 14:22] LABS: Basophils % (A) 0 %; Eosinophils # (A) 0.1 k/uL (0-0.7); Eosinophils % (A) 1 %; HCT 37.8 % (34.0-46.0); HGB 12.3 gm/dL (11.4-16.0); Lymphocytes % (A) 35 %; MCH 28.1 pg (25.0-35.0); MCHC 32.4 g/dL (31.0-37.0); MCV 86.6 fL (80.0-100.0); Mean Platelet Volume 7.1; Monocytes # (A) 0.5 k/uL (0-1.0); Monocytes % (A) 6 %; Neutrophils # (A) 4.9 k/uL (1.3-7.7); Neutrophils % (A) 57 %; Platelet Count 366 k/uL (150-450); RBC 4.36 m/uL (3.80-5.40); RDW 15.1 % (11.5-15.5); WBC 8.6 k/uL (3.8-10.6)
--- NOTE | 2020-02-07 14:27 | XR ---
EXAMINATION TYPE: XR KUB DATE OF EXAM: 02/07/2020 COMPARISON: 12/18/2019 HISTORY: Abdominal pain TECHNIQUE: Chandan view FINDINGS: There is no sign of intestinal obstruction or pneumoperitoneum. Fecal pattern is normal. Th ere are apparent clips from cholecystectomy. There is multilevel lumbar posterior fusion surgery. Homero g bases are clear. There is no sign of a mass. IMPRESSION: Nonacute abdomen.
[2020-02-07] MEDS ORDERED: DIPHENOX-ATROP STARTER PACK 8 TAB BTL PO STA (15:07)
[2020-02-07 15:09] VITALS: BP 130/65; PULSE 62; TEMP 98.3
== END 2020-02-07 15:13 | disposition home or self-care (01) ==
LOC: EC 12:41
DX: N39.0 Urinary tract infection, site not specified (principal); R10.13 Epigastric pain; J44.9 Chronic obstructive pulmonary disease, unspecified; I10 Essential (primary) hypertension; M19.90 Unspecified osteoarthritis, unspecified site; M06.9 Rheumatoid arthritis, unspecified; Z86.73 Personal history of transient ischemic attack (TIA), and cerebral infarction without residual deficits; Z79.891 Long term (current) use of opiate analgesic; Z90.49 Acquired absence of other specified parts of digestive tract; Z87.19 Personal history of other diseases of the digestive system; Z96.89 Presence of other specified functional implants; Z90.721 Acquired absence of ovaries, unilateral; Z87.891 Personal history of nicotine dependence; Z79.52 Long term (current) use of systemic steroids; Z79.899 Other long term (current) drug therapy; Z53.29 Procedure and treatment not carried out because of patient's decision for other reasons
CPT/HCPCS: 36415; 80053; 82150; 83690; 85025; 85610; 85730; 81001; 87086; 74018; 99284; 96374; 96375 ×2; 96361 ×2; J2405; J1170; C9113

== ENCOUNTER 2020-02-13 12:33 | Emergency (ER) | payer BC ==
[2020-02-13 12:46] VITALS: RESP 18
[2020-02-13] MEDS ORDERED: ONDANSETRON 4 MG/2 ML VIAL IVP STA (12:59)
[2020-02-13] MEDS ORDERED: HYDROmorphone 0.5 MG/0.5 ML SYRINGE IVP STA (12:59)
[2020-02-13] MEDS ORDERED: SODIUM CHLORIDE 0.9% 500 ML 500 ML IV STA (12:59)
--- NOTE | 2020-02-13 13:49 | XR ---
EXAMINATION TYPE: XR chest 1V DATE OF EXAM: 02/13/2020 COMPARISON: NONE HISTORY: Pain TECHNIQUE: Single frontal view of the chest is obtained. FINDINGS: There appears to be deformities involving multiple left-sided rib suspicious for fractures . Correlate for history of trauma. No overt failure. Heart size normal. Biapical pleural thickening. IMPRESSION: 1. There is sclerotic changes and nodularity involving the left hemithorax most likely related to rib fractures. Correlate clinically. These appear to be new from the x-ray of 12/02/2019. A bone scan cou ld BE obtained for further evaluation..
[2020-02-13 13:51] LABS: ALT 29 U/L (4-34); AST 32 U/L (14-36); African American GFR (CKD) >90 (>60 ml/min/1.73 sqM); Albumin 4.2 g/dL (3.5-5.0); Alkaline Phosphatase 94 U/L (38-126); Anion Gap 8 mmol/L; Blood Urea Nitrogen 9 mg/dL (7-17); Calcium 9.5 mg/dL (8.4-10.2); Carbon Dioxide 23 mmol/L (22-30); Chloride 109 mmol/L (98-107); Glucose 152 mg/dL (74-99); Non-African American GFR(CKD) >90 (>60 ml/min/1.73 sqM); Potassium 3.6 mmol/L (3.5-5.1); Sodium 140 mmol/L (137-145); Total Bilirubin 0.5 mg/dL (0.2-1.3); Total Protein 7.1 g/dL (6.3-8.2)
--- NOTE | 2020-02-13 13:51 | XR ---
EXAMINATION TYPE: XR KUB DATE OF EXAM: 02/13/2020 COMPARISON: 02/07/2020 HISTORY: Pain TECHNIQUE: One view abdominal series FINDINGS: The osseous structures are intact. The bowel gas pattern is nonspecific. Postsurgical change involvi ng the vertebral column with arthropathy and hypertrophic changes of the hip and acetabulum. Correlat e for femoral acetabular impingement. Calcifications involving the pelvis. IMPRESSION: 1. Nonspecific abdomen. Retained fecal debris correlate for constipation.
[2020-02-13 13:53] LABS: Basophils % (A) 0 %; Eosinophils # (A) 0.3 k/uL (0-0.7); Eosinophils % (A) 3 %; HCT 36.5 % (34.0-46.0); Lymphocytes # (A) 1.7 k/uL (1.0-4.8); Lymphocytes % (A) 22 %; MCH 28.3 pg (25.0-35.0); MCHC 32.8 g/dL (31.0-37.0); MCV 86.2 fL (80.0-100.0); Mean Platelet Volume 7.9; Monocytes # (A) 0.3 k/uL (0-1.0); Monocytes % (A) 4 %; Neutrophils # (A) 5.2 k/uL (1.3-7.7); Neutrophils % (A) 69 %; Platelet Count 327 k/uL (150-450); RBC 4.23 m/uL (3.80-5.40); RDW 14.4 % (11.5-15.5); WBC 7.5 k/uL (3.8-10.6)
--- NOTE | 2020-02-13 14:48 | ED ---
Abdominal Pain HPI - General Chief Complaint: Abdominal Pain Stated Complaint: Hernia pain Time Seen by Provider: 02/13/20 12:49 Source: patient, RN notes reviewed Mode of arrival: wheelchair Limitations: no limitations - History of Present Illness Initial Comments: 64-year-old female presents emergency Department chief complaint epigastric pain. Patient states that she is a hiatal hernia which she is scheduled for surgery next week. Patient states that she twisted felt a pop. Patient states the pain was worse today. Denies any significant vomiting diarrhea constipation no dysuria no hematuria no fevers chills no chest pain or shortness breath. Patient states that she called her surgeon Dr. Harp's office who recommended coming in for evaluation. - Related Data Home Medications Medication Instructions Recorded Confirmed amLODIPine BESYLATE/BENAZEPRIL 1 cap PO DAILY 05/31/19 02/04/20 [Lotrel 2.5-10 MG] Diphenox-Atrop 2.5-0.025 mg 1 tab PO TID PRN 09/08/19 02/04/20 [Lomotil] Gabapentin 800 mg PO TID 09/08/19 02/04/20 Butalb/APAP/Caff 50-325-40Mg 1 tab PO Q12H PRN 12/11/19 02/04/20 [Fioricet 50-325-40] HYDROcodone/APAP 10-325MG [[place] 1 tab PO QID PRN 12/11/19 02/04/20 10-325] Ticagrelor [Brilinta] 90 mg PO BID 12/11/19 02/04/20 predniSONE See Taper PO DAILY 12/11/19 02/04/20 Albuterol Nebulized [Ventolin 2.5 mg INHALATION Q4H PRN 02/04/20 02/04/20 Nebulized] Previous Rx's Medication Instructions Recorded busPIRone HCl [Buspar] 7.5 mg PO BID #30 tab 12/15/19 Famotidine [Pepcid] 20 mg PO BID #20 tablet 02/07/20 Nitrofurantoin Monohyd/M-Cryst 100 mg PO Q12HR #14 cap 02/07/20 [Macrobid] Allergies Allergy/AdvReac Type Severity Reaction Status Date / Time No Known Allergies Allergy Verified 02/13/20 12:46 Review of Systems ROS Statement: Those systems with pertinent positive or pertinent negative responses have been documented in the HPI. ROS Other: All systems not noted in ROS Statement are negative. Past Medical History Past Medical History: Chest Pain / Angina, COPD, CVA/TIA, GERD/Reflux, Hypertension, Osteoarthritis (OA), Rheumatoid Arthritis (RA) Additional Past Medical History / Comment(s): colitis/sepsis/R renal cyst. pancreatitis, bronchitis, TIA, anemia-unknown cause, migraines, osteoporosis, past R femur fracture with surgery.past l2 compression fx, [place] sep 2019. hernia History of Any Multi-Drug Resistant Organisms: None Reported Past Surgical History: Appendectomy, Back Surgery, Cholecystectomy, Orthopedic Surgery, Tonsillectomy Additional Past Surgical History / Comment(s): Pancreatic stents-since removed, 6 back surgeries with 2 fusions, right oophorectomy due to ectopic , EGD/colonoscopy, right leg alice inserted d/t fracture, Past Anesthesia/Blood Transfusion Reactions: No Reported Reaction Additional Past Anesthesia/Blood Transfusion Reaction / Comment(s): Pt has received blood in past without reaction. Past Psychological History: No Psychological Hx Reported Smoking Status: Former smoker Past Alcohol Use History: None Reported Past Drug Use History: None Reported - Past Family History Father Family Medical History: Cancer, Liver Disease Additional Family Medical History / Comment(s): Father was an alcoholic. He from lung/ liver cancer. Mother Family Medical History: Cancer, CVA/TIA, Hypertension Additional Family Medical History / Comment(s): Mother had breast and colon cancer. She of liver cancer at the age of 78 yrs. General Exam Limitations: no limitations General appearance: alert, in no apparent distress Head exam: Present: atraumatic, normocephalic, normal inspection Neck exam: Present: normal inspection. Absent: tenderness, meningismus, lymphadenopathy Respiratory exam: Present: wheezes (Minimal). Absent: normal lung sounds bilaterally, respiratory distress, rales, rhonchi, stridor Cardiovascular Exam: Present: regular rate, normal rhythm, normal heart sounds. Absent: systolic murmur, diastolic murmur, rubs, gallop, clicks GI/Abdominal exam: Present: soft, tenderness (Mild epigastric), normal bowel s ounds. Absent: distended, guarding, rebound, rigid Back exam: Absent: CVA tenderness (R), CVA tenderness (L) Course Vital Signs 02/13/20 02/13/20 12:44 14:31 Temperature 97.8 F Pulse Rate 80 78 Respiratory 18 18 Rate Blood Pressure 122/75 121/78 O2 Sat by Pulse 98 97 Oximetry Medical Decision Making - Medical Decision Making 64-year-old female presented for abdominal pain labs, x-rays reviewed shows mild constipation, x-ray of the chest shows possibility of rib fracture though she has no point tenderness at this time. I did discuss case with her surgeon Dr. Amaya who reviewed, recommended pain management at this time and to follow-up and is scheduled for surgery next week. She was given strict return parameters which she agrees and understands - Lab Data Result diagrams: 02/13/20 13:26 02/13/20 13:26 Lab Results 02/13/20 02/13/20 Range/Units 13:26 13:26 WBC 7.5 (3.8-10.6) k/uL RBC 4.23 (3.80-5.40) m/uL Hgb 12.0 (11.4-16.0) gm/dL Hct 36.5 (34.0-46.0) % MCV 86.2 (80.0-100.0) fL MCH 28.3 (25.0-35.0) pg MCHC 32.8 (31.0-37.0) g/dL RDW 14.4 (11.5-15.5) % Plt Count 327 (150-450) k/uL Neutrophils % 69 % Lymphocytes % 22 % Monocytes % 4 % Eosinophils % 3 % Basophils % 0 % Neutrophils # 5.2 (1.3-7.7) k/uL Lymphocytes # 1.7 (1.0-4.8) k/uL Monocytes # 0.3 (0-1.0) k/uL Eosinophils # 0.3 (0-0.7) k/uL Basophils # 0.0 (0-0.2) k/uL Sodium 140 (137-145) mmol/L Potassium 3.6 (3.5-5.1) mmol/L Chloride 109 H (98-107) mmol/L Carbon Dioxide 23 (22-30) mmol/L Anion Gap 8 mmol/L BUN 9 (7-17) mg/dL Creatinine 0.57 (0.52-1.04) mg/dL Est GFR (CKD-EPI)AfAm >90 (>60 ml/min/1.73 sqM) Est GFR (CKD-EPI)NonAf >90 (>60 ml/min/1.73 sqM) Glucose 152 H (74-99) mg/dL Calcium 9.5 (8.4-10.2) mg/dL Total Bilirubin 0.5 (0.2-1.3) mg/dL AST 32 (14-36) U/L ALT 29 (4-34) U/L Alkaline Phosphatase 94 (38-126) U/L Total Protein 7.1 (6.3-8.2) g/dL Albumin 4.2 (3.5-5.0) g/dL Lipase 69 (23-300) U/L Disposition Clinical Impression: Abdominal pain Disposition: HOME SELF-CARE Condition: Stable Instructions (If sedation given, give patient instructions): Abdominal Pain (ED) Additional Instructions: Please return to the Emergency Department if symptoms worsen or any other concerns. Is patient prescribed a controlled substance at d/c from ED?: No Referrals: Magali Murphy MD [Primary Care Provider] - 1-2 days Time of Disposition: 14:48
[2020-02-13] MEDS ORDERED: ONDANSETRON 4 MG ODT STARTER PACK 2 TAB BTL PO STA (15:10)
[2020-02-13] MEDS ORDERED: ACET/COD 300 MG/30 MG STARTER PACK 6 TAB BTL PO STA (15:10)
[2020-02-13 15:22] VITALS: BP 154/82; PULSE 68; TEMP 97.9
== END 2020-02-13 15:22 | disposition home or self-care (01) ==
LOC: EC 12:33
DX: R10.13 Epigastric pain (principal); K59.00 Constipation, unspecified; I10 Essential (primary) hypertension; J44.9 Chronic obstructive pulmonary disease, unspecified; Z79.51 Long term (current) use of inhaled steroids; Z79.899 Other long term (current) drug therapy; Z87.891 Personal history of nicotine dependence; Z86.73 Personal history of transient ischemic attack (TIA), and cerebral infarction without residual deficits; Z90.89 Acquired absence of other organs; Z90.49 Acquired absence of other specified parts of digestive tract
CPT/HCPCS: 36415; 80053; 83690; 85025; 71045; 74018; 99284; 96374; 96375; 96361; J2405; S0119; J1170

== ENCOUNTER 2020-02-20 16:05 | Emergency (ER) | payer BC ==
[2020-02-20] MEDS ORDERED: PANTOPRAZOLE 40 MG/10 ML VIAL IVP STA (16:28)
[2020-02-20] MEDS ORDERED: MORPHINE SULFATE 4 MG/ML SYRINGE IV STA (16:28)
[2020-02-20] MEDS ORDERED: SODIUM CHLORIDE 0.9% 500 ML 500 ML IV STA (16:28)
--- NOTE | 2020-02-20 16:42 | ED ---
General Adult HPI - General Chief complaint: Abdominal Pain Stated complaint: hernia pain Time Seen by Provider: 02/20/20 16:21 Source: patient, RN notes reviewed, old records reviewed Mode of arrival: ambulatory Limitations: no limitations - History of Present Illness Initial comments: 64 yo female presenting for evaluation of epigastric abdominal pain. Patient is scheduled for hiatal hernia repair in 5 days. This was rescheduled wants. She's been having the same epigastric pain for years however it is worsened over the past several months. She's had several episodes of vomiting and she has chronic diarrhea. She ran out of her [place] yesterday. Denies lower abdominal pain. Denies chest pain. Denies dyspnea. Denies fever. - Related Data Home Medications Medication Instructions Recorded Confirmed amLODIPine BESYLATE/BENAZEPRIL 1 cap PO DAILY 05/31/19 02/20/20 [Lotrel 2.5-10 MG] Diphenox-Atrop 2.5-0.025 mg 1 tab PO TID PRN 09/08/19 02/20/20 [Lomotil] Gabapentin 800 mg PO TID 09/08/19 02/20/20 Butalb/APAP/Caff 50-325-40Mg 1 tab PO Q12H PRN 12/11/19 02/20/20 [Fioricet 50-325-40] HYDROcodone/APAP 10-325MG [[place] 1 tab PO QID PRN 12/11/19 02/20/20 10-325] Ticagrelor [Brilinta] 90 mg PO BID 12/11/19 02/20/20 predniSONE See Taper PO DAILY 12/11/19 02/20/20 Albuterol Nebulized [Ventolin 2.5 mg INHALATION Q4H PRN 02/04/20 02/20/20 Nebulized] Previous Rx's Medication Instructions Recorded busPIRone HCl [Buspar] 7.5 mg PO BID #30 tab 12/15/19 Famotidine [Pepcid] 20 mg PO BID #20 tablet 02/07/20 Nitrofurantoin Monohyd/M-Cryst 100 mg PO Q12HR #14 cap 02/07/20 [Macrobid] Allergies Allergy/AdvReac Type Severity Reaction Status Date / Time No Known Allergies Allergy Verified 02/20/20 16:14 Review of Systems ROS Statement: Those systems with pertinent positive or pertinent negative responses have been documented in the HPI. ROS Other: All systems not noted in ROS Statement are negative. Past Medical History Past Medical History: Chest Pain / Angina, COPD, CVA/TIA, GERD/Reflux, Hypertension, Osteoarthritis (OA), Rheumatoid Arthritis (RA) Additional Past Medical History / Comment(s): colitis/sepsis/R renal cyst. pancreatitis, bronchitis, TIA, anemia-unknown cause, migraines, osteoporosis, past R femur fracture with surgery.past l2 compression fx, [place] sep 2019. hernia History of Any Multi-Drug Resistant Organisms: None Reported Past Surgical History: Appendectomy, Back Surgery, Cholecystectomy, Orthopedic Surgery, Tonsillectomy Additional Past Surgical History / Comment(s): Pancreatic stents-since removed, 6 back surgeries with 2 fusions, right oophorectomy due to ectopic , EGD/colonoscopy, right leg alice inserted d/t fracture, Past Anesthesia/Blood Transfusion Reactions: No Reported Reaction Additional Past Anesthesia/Blood Transfusion Reaction / Comment(s): Pt has received blood in past without reaction. Past Psychological History: No Psychological Hx Reported Smoking Status: Former smoker Past Alcohol Use History: None Reported Past Drug Use History: None Reported - Past Family History Father Family Medical History: Cancer, Liver Disease Additional Family Medical History / Comment(s): Father was an alcoholic. He from lung/ liver cancer. Mother Family Medical History: Cancer, CVA/TIA, Hypertension Additional Family Medical History / Comment(s): Mother had breast and colon cancer. She of liver cancer at the age of 78 yrs. General Exam Limitations: no limitations General appearance: alert, in no apparent distress Head exam: Present: atraumatic, normocephalic Eye exam: Present: normal appearance, PERRL, EOMI ENT exam: Present: normal exam Neck exam: Present: normal inspection. Absent: tenderness, meningismus Respiratory exam: Present: normal lung sounds bilaterally. Absent: respiratory distress, wheezes Cardiovascular Exam: Present: regular rate, normal rhythm GI/Abdominal exam: Present: soft, tenderness (Minimal epigastric tenderness). Absent: distended, guarding, rebound Extremities exam: Present: normal inspection, full ROM Neurological exam: Present: alert, oriented X3 Psychiatric exam: Present: normal affect, normal mood Skin exam: Present: warm, dry, intact. Absent: cyanosis, diaphoretic Course Vital Signs 02/20/20 16:13 Temperature 98.8 F Pulse Rate 88 Respiratory 18 Rate Blood Pressure 159/81 O2 Sat by Pulse 99 Oximetry Medical Decision Making - Medical Decision Making 64-year-old with chronic abdominal pain, scheduled for hiatal hernia repair. Pain is epigastric, reproducible. Workup reveals normal white blood cell count, stable hemoglobin, normal electrolytes, negative lipase, negative troponin. After morphine and Protonix patient is feeling much better. She will maintain her appointment for hiatal hernia repair. She will return to the emergency department with worsening or changing symptoms. - Lab Data Result diagrams: 02/20/20 16:45 02/20/20 16:45 Lab Results 02/20/20 02/20/20 02/20/20 Range/Units 16:45 16:45 16:45 WBC 7.5 (3.8-10.6) k/uL RBC 4.58 (3.80-5.40) m/uL Hgb 12.6 (11.4-16.0) gm/dL Hct 39.6 (34.0-46.0) % MCV 86.4 (80.0-100.0) fL MCH 27.6 (25.0-35.0) pg MCHC 31.9 (31.0-37.0) g/dL RDW 14.6 (11.5-15.5) % Plt Count 345 (150-450) k/uL Neutrophils % 64 % Lymphocytes % 28 % Monocytes % 4 % Eosinophils % 2 % Basophils % 1 % Neutrophils # 4.8 (1.3-7.7) k/uL Lymphocytes # 2.1 (1.0-4.8) k/uL Monocytes # 0.3 (0-1.0) k/uL Eosinophils # 0.1 (0-0.7) k/uL Basophils # 0.0 (0-0.2) k/uL Sodium 138 (137-145) mmol/L Potassium 3.7 (3.5-5.1) mmol/L Chloride 107 (98-107) mmol/L Carbon Dioxide 20 L (22-30) mmol/L Anion Gap 11 mmol/L BUN 13 (7-17) mg/dL Creatinine 0.66 (0.52-1.04) mg/dL Est GFR (CKD-EPI)AfAm >90 (>60 ml/min/1.73 sqM) Est GFR (CKD-EPI)NonAf >90 (>60 ml/min/1.73 sqM) Glucose 188 H (74-99) mg/dL Calcium 9.8 (8.4-10.2) mg/dL Total Bilirubin 0.3 (0.2-1.3) mg/dL AST 22 (14-36) U/L ALT 15 (4-34) U/L Alkaline Phosphatase 87 (38-126) U/L Troponin I <0.012 (0.000-0.034) ng/mL Total Protein 7.3 (6.3-8.2) g/dL Albumin 4.4 (3.5-5.0) g/dL Lipase 278 (23-300) U/L Disposition Clinical Impression: Epigastric pain Disposition: HOME SELF-CARE Condition: Fair Instructions (If sedation given, give patient instructions): Abdominal Pain (ED) Is patient prescribed a controlled substance at d/c from ED?: No Referrals: Magali Murphy MD [Primary Care Provider] - 1-2 days Decision to Admit Reason: Admit from EC Decision Date: 02/20/20 Decision Time: 17:45
[2020-02-20 16:55] LABS: Basophils % (A) 1 %; Eosinophils # (A) 0.1 k/uL (0-0.7); Eosinophils % (A) 2 %; HCT 39.6 % (34.0-46.0); HGB 12.6 gm/dL (11.4-16.0); Lymphocytes # (A) 2.1 k/uL (1.0-4.8); Lymphocytes % (A) 28 %; MCH 27.6 pg (25.0-35.0); MCHC 31.9 g/dL (31.0-37.0); MCV 86.4 fL (80.0-100.0); Mean Platelet Volume 6.8; Monocytes # (A) 0.3 k/uL (0-1.0); Monocytes % (A) 4 %; Neutrophils # (A) 4.8 k/uL (1.3-7.7); Neutrophils % (A) 64 %; Platelet Count 345 k/uL (150-450); RBC 4.58 m/uL (3.80-5.40); RDW 14.6 % (11.5-15.5); WBC 7.5 k/uL (3.8-10.6)
[2020-02-20 17:28] LABS: ALT 15 U/L (4-34); AST 22 U/L (14-36); African American GFR (CKD) >90 (>60 ml/min/1.73 sqM); Albumin 4.4 g/dL (3.5-5.0); Alkaline Phosphatase 87 U/L (38-126); Anion Gap 11 mmol/L; Blood Urea Nitrogen 13 mg/dL (7-17); Calcium 9.8 mg/dL (8.4-10.2); Carbon Dioxide 20 mmol/L (22-30); Chloride 107 mmol/L (98-107); Glucose 188 mg/dL (74-99); Non-African American GFR(CKD) >90 (>60 ml/min/1.73 sqM); Potassium 3.7 mmol/L (3.5-5.1); Sodium 138 mmol/L (137-145); Total Bilirubin 0.3 mg/dL (0.2-1.3); Total Protein 7.3 g/dL (6.3-8.2)
[2020-02-20] MEDS ORDERED: DIPHENOX-ATROP 2.5-0.025 MG 1 EACH TAB PO STA (17:48)
[2020-02-20] MEDS ORDERED: HYDROcodone/APAP 5-325MG 1 EACH TAB PO STA (17:54)
[2020-02-20 18:01] VITALS: BP 162/84; PULSE 64; RESP 16; TEMP 97.8
== END 2020-02-20 18:26 | disposition home or self-care (01) ==
LOC: EC 16:05
DX: R10.13 Epigastric pain (principal); R11.10 Vomiting, unspecified; J44.9 Chronic obstructive pulmonary disease, unspecified; I10 Essential (primary) hypertension; Z79.899 Other long term (current) drug therapy; Z79.51 Long term (current) use of inhaled steroids; Z86.73 Personal history of transient ischemic attack (TIA), and cerebral infarction without residual deficits; Z87.891 Personal history of nicotine dependence; Z90.89 Acquired absence of other organs; Z90.49 Acquired absence of other specified parts of digestive tract
CPT/HCPCS: 36415; 80053; 83690; 84484; 85025; 99284; 96374; 96375; 96361; J2270; C9113

== ENCOUNTER 2020-02-25 09:23 | Observation (INO) | payer BC ==
[2020-02-23 09:51] VITALS: BMI 21.9
[~2020-02-25 09:23] MED LIST changes: +ACETAMINOPHEN TAB 500 MG TAB PO ONE; +DEXAMETHASONE SOD PHOSPHATE 10 MG/ML 1 ML VIAL IV ONE; +HEPARIN SODIUM,PORCINE 5,000 UNIT/ML 1 ML VIAL SQ ONE; +HYDROmorphone 0.5 MG/0.5 ML SYRINGE IVP PRN; -LACTATED RINGERS 1,000 ML IV SCH; +MIDAZOLAM 2 MG/2 ML VIAL IV PRN; +ONDANSETRON 4 MG/2 ML VIAL IVP ONE; +SCOPOLAMINE 1.5MG/72HR PATCH TRANSDERM ONE
--- NOTE | 2020-02-25 10:10 | P.GSHP ---
History of Present Illness H&P Date: 02/25/20 Chief Complaint: GERD This a 64-year-old female referred from Dr. Murphy.The patient has had long- standing problems with reflux esophagitis. The patient underwent recent EGD is found have evidence of esophagitis. Patient has been well informed on the procedure of laparoscopic Karin fundoplication. The patient is aware the risk of the conversion to the open procedure, risk of injury to the stomach, liver and spleen. The patient is also a risk of recurrent GERD and dysphagia symptoms. The patient understands there is a postoperative diet of full liquids for 2 weeks after surgery. 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/hx fx l2, hx anemia History of Any Multi-Drug Resistant Organisms: None Reported Past Surgical History: Appendectomy, Back Surgery, Cholecystectomy, Orthopedic Surgery, Tonsillectomy Additional Past Surgical History / Comment(s): Pancreatic stents-since removed, 6 back surgeries with 2 fusions, right oophorectomy due to ectopic , EGD/colonoscopy, right leg alice inserted d/t fracture, Past Anesthesia/Blood Transfusion Reactions: No Reported Reaction Additional Past Anesthesia/Blood Transfusion Reaction / Comment(s): DIFF IV STARTS, Pt has received blood in past without reaction. Smoking Status: Former smoker - Past Family History Father Family Medical History: Cancer Additional Family Medical History / Comment(s): . Mother Family Medical History: Cancer, CVA/TIA Additional Family Medical History / Comment(s): breast and colon cancer. Medications and Allergies Home Medications Medication Instructions Recorded Confirmed Type Diphenox-Atrop 2.5-0.025 mg 1 tab PO TID PRN 09/08/19 02/23/20 History [Lomotil] Gabapentin 800 mg PO QID 09/08/19 02/23/20 History Brilinta(Dose Unkownn) 1 tab PO QAM 02/23/20 02/23/20 History Fiorinal(Dose Unknown) 1 tab PO DIRECTED PRN 02/23/20 02/23/20 History Lotrel(Dose Unknown) 1 tab PO QAM 06/22/20 06/22/20 History Morphine Sulfate 15 mg PO BID PRN 02/23/20 02/23/20 History Allergies Allergy/AdvReac Type Severity Reaction Status Date / Time No Known Allergies Allergy Verified 02/23/20 09:38 Surgical - Exam - General well developed, no distress - Eyes PERRL - ENT normal pinna - Neck no masses - Respiratory normal expansion - Cardiovascular Rhythm: regular - Abdomen Abdomen: soft, non tender Assessment and Plan Assessment: GERD. We'll perform laparoscopic Karin fundal plication.
[2020-02-25] MEDS ORDERED: HEPARIN SODIUM,PORCINE 5,000 UNIT/ML 1 ML VIAL ONE (11:07)
[2020-02-25] MEDS ORDERED: ONDANSETRON 4 MG/2 ML VIAL ONE (11:07)
[2020-02-25] MEDS ORDERED: ACETAMINOPHEN TAB 500 MG TAB ONE (11:07)
[2020-02-25 11:32] LABS: Glucose,Whole Blood 130 mg/dL (75-99)
[2020-02-25] MEDS: LACTATED RINGERS 1,000 ML IV SCH (11:35)
[2020-02-25] MEDS ORDERED: GLYCOPYRROLATE 0.2 MG/ML 2 ML VIAL ONE (11:42)
[2020-02-25] MEDS ORDERED: ePHEDrine SULFATE/0.9% NACL/PF 50 MG/5 ML SYRINGE IV ONE (11:42)
[2020-02-25] MEDS ORDERED: ROCURONIUM BROMIDE 10 MG/ML 5 ML VIAL IV ONE (11:42)
[2020-02-25] MEDS ORDERED: NEOSTIGMINE 1 MG/ML 10 ML VIAL ONE (11:42)
[2020-02-25] MEDS ORDERED: MIDAZOLAM 2 MG/2 ML VIAL ONE (11:42)
[2020-02-25] MEDS ORDERED: LIDOCAINE 1% INJ 10MG/ML (20 ML MDV) ONE (11:42)
[2020-02-25] MEDS ORDERED: SUCCINYLCHOLINE CHLORIDE 100 MG/5 ML SYR IV ONE (11:42)
[2020-02-25] MEDS ORDERED: ESMOLOL 100 MG/10 ML VIAL ONE (11:42)
[2020-02-25] MEDS ORDERED: hydrALAZINE HCL 20 MG/ML 1 ML VIAL ONE (11:42)
[2020-02-25] MEDS ORDERED: PROPOFOL 10 MG/ML 20 ML VIAL IV ONE (11:42)
[2020-02-25] MEDS ORDERED: fentaNYL (PF) 50 MCG/ML 2 ML AMP ONE (11:42)
[2020-02-25] MEDS ORDERED: LABETALOL 5 MG/ML VIAL MDV ONE (11:42)
[2020-02-25] MEDS ORDERED: BUPIVACAIN-EPI 0.25%-1:200,000 30 ML VIAL SQ ONE (12:10)
--- NOTE | 2020-02-25 12:46 | P.OP ---
Date of Procedure: 02/25/20 Preoperative Diagnosis: GERD Postoperative Diagnosis: GERD Procedure(s) Performed: Laparoscopic Karin fundal plication Anesthesia: ANNE Surgeon: Eze Amaya Estimated Blood Loss (ml): 10 Pathology: none sent Condition: stable Disposition: PACU Description of Procedure: The patient was placed on the operating table in the supine position. The patient received general anesthesia. And was placed in dorsal lithotomy position. The patient was prepped and draped in the usual sterile fashion. The skin incision sites were anesthetized with 1% local Xylocaine. The patient appears right subcostal incision related to open cholecystectomy. The skin was incised in the left periumbilical area and then using a blade less 5 mm trocar under direct visualization panel cavity was entered. After adequate insufflation the laparoscope was then placed into the peritoneal cavity. There adhesions all along the right side of the abdomen. Next a 5 mm trochars placed in the left lateral position. Another 5 millimeter trocar the epigastric position. Another 5 millimeter trocar in the mid abdominal position. n. And then the initial 5 mm trocar was exchanged for a 10 mm trocar. The left lateral lobe liver was retracted. The hernia was seen. The crural defect was then dissected using the Harmonic scissors device. A 360 crural dissection was performed the esophagus stomach was reduced back into the peritoneal Cavity. The crural defect was then closed using 2-0 Ethibond suture. Next the fundus of the stomach was mobilized using the [place] scissors device. and then a 58- Sinhala bougie dilator was placed oropharynx passed into the esophagus and stomach the fundal plication wrap was then performed by grasping the fundus posteriorly and bringing it around the esophagus and stomach fundoplication was then performed using 2-0 Ethibond suture. Care was taken that the fundal location rested over top of the intra-abdominal esophagus. There was no injury seen to the stomach or esophagus. The dilator was then withdrawn. The abdomen was irrigated there is no bleeding seen. The trochars were then withdrawn and then skin incision sites were closed using 3-0 Monocryl suture Steri-Strips are applied. Patient thought procedure well and sent to recovery room in stable condition.
[2020-02-25] MEDS ORDERED: ONDANSETRON 4 MG/2 ML VIAL IVP PRN (12:47)
[2020-02-25] MEDS: MORPHINE SULFATE 4 MG/ML SYRINGE IVP ONE ×2 (13:07→13:55)
[2020-02-25] MEDS: MORPHINE SULF 5MG/10ML VL IVP ONE ×2 (13:16→13:34)
[2020-02-25] MEDS: fentaNYL (PF) 50 MCG/ML 2 ML AMP IVP ONE ×2 (13:21→13:46)
[2020-02-25] MEDS ORDERED: diphenhydrAMINE 50 MG/ML 1 ML VIAL IVP ONE (13:34)
[2020-02-25] MEDS ORDERED: hydrALAZINE HCL 20 MG/ML 1 ML VIAL IVP ONE (13:37)
[2020-02-25] MEDS ORDERED: LACTATED RINGERS 1,000 ML IV ONE (13:49)
[2020-02-25] MEDS ORDERED: KETOROLAC 30 MG/ML 1 ML VIAL IVP ONE (14:01)
--- NOTE | 2020-02-25 15:59 | FL ---
Single contrast esophagram EXAMINATION TYPE: FL esophagus cervic/pharynx DATE OF EXAM: 02/25/2020 3:55 PM COMPARISON: NONE CLINICAL HISTORY: Status post Chuckie fundoplication 39 SEC FL, PT DRANK 50ML ISOVUE 370 The patient ingested contrast without difficulty or delay. Noted are changes of Chuckie fundoplicatio n. There is no evidence for leak or obstruction. Small amount of residual contrast within the distal esophagus. IMPRESSION: Post-surgical change of Chuckie fundoplication without evidence for leak or obstruction.
[2020-02-25] MEDS: HYDROmorphone 1 MG/ML 1 ML SYRINGE IVP PRN ×3 (16:37→23:07)
[2020-02-25] MEDS: D5-0.45% NACL WITH KCL 20MEQ/L 1,000 ML IV SCH ×2 (17:47→21:28)
[2020-02-25] MEDS: GABAPENTIN 400 MG CAP PO SCH ×2 (17:47→21:27)
[2020-02-26] MEDS: MORPHINE SULFATE IR 15 MG TABLET PO PRN ×2 (01:09→12:38)
[2020-02-26] MEDS: HYDROmorphone 1 MG/ML 1 ML SYRINGE IVP PRN ×3 (03:57→13:56)
[2020-02-26] MEDS: LACTATED RINGERS 1,000 ML IV SCH (04:55)
[2020-02-26] MEDS: GABAPENTIN 400 MG CAP PO SCH ×3 (08:04→12:38)
[2020-02-26] MEDS ORDERED: ENOXAPARIN 40 MG/0.4 ML SYRINGE SQ SCH (09:00)
[2020-02-26] MEDS ORDERED: LOTREL PO SCH (09:00)
--- NOTE | 2020-02-26 13:35 | CONS ---
CONSULTATION REASON FOR CONSULTATION: Advice regarding COPD and other medical issues. REQUESTING PHYSICIAN: Dr. Amaya. HISTORY OF PRESENT ILLNESS: This 64-year-old woman with a past medical history of COPD CVA, GERD, hypertension, DJD, history of back surgery, appendectomy, being followed by Dr. Murphy in the outpatient setting, underwent laparoscopic Karin fundoplication by Dr. Amaya. The patient tolerated the procedure. The patient complaining of increased urine output at this time. There is no history of fever, rigors. No headache, loss of consciousness, seizures. PAST MEDICAL HISTORY: COPD, CVA, GERD, hypertension, DJD, history of migraine, history of stroke. MEDICATIONS: 1. Morphine sulfate 50 mg b.i.d. p.r.n. 2. Lotrel 1 tab q.a.m. 3. Gabapentin 800 mg p.o. q.i.d. 4. Fiorinal p.r.n. 5. Lomotil. 6. Brilinta. ALLERGIES: None. FAMILY HISTORY: History of breast and colon cancer. SOCIAL HISTORY: Previous history of smoking. No alcohol. REVIEW OF SYSTEMS: ENT No history of diminished hearing or vision. CARDIOVASCULAR No angina or palpitations. RESPIRATORY No cough, no hemoptysis. GI No nausea, vomiting, or diarrhea. As mentioned earlier. NERVOUS No numbness or weakness. ALLERGY/IMMUNOLOGY No asthma or hayfever. MUSCULOSKELETAL As mentioned earlier. HEMATOLOGY/ONCOLOGY Negative. ENDOCRINE No history of diabetes or hypothyroidism. CONSTITUTIONAL As mentioned earlier. DERMATOLOGY Negative. RHEUMATOLOGY Negative, PSYCHIATRY As mentioned earlier. PHYSICAL EXAMINATION: Alert and oriented x3. Pulse is 84 blood pressure 130/84, respiration 14, temperature 98.2, pulse ox 94% on room air/ skin: HEENT: Conjunctivae normal. Oral mucosa moist. NECK: No jugular venous distention. No lymph node enlargement. CARDIOVASCULAR: S1, S2. RESPIRATORY: Diminished breath sounds at the bases. A few scattered rhonchi and crackles. ABDOMEN: Soft, status post surgery. LEGS: No edema, no swelling. NERVOUS SYSTEM: Higher functions mentioned earlier. Moves all four limbs. No focal motor or sensory deficits. LYMPHATICS: No lymph node in neck or axilla. SKIN: No rash. JOINTS: No active deforming arthropathy. LABS: Glucose 130. Other labs are hematology, coags prior to admission preop and within normal limits. ASSESSMENT: 1. Status post laparoscopic Karin fundoplication for gastroesophageal reflux disease. 2. History of chronic obstructive pulmonary disease. 3. History of cerebrovascular accident, transient ischemic attack. 4. Gastroesophageal reflux disease. 5. Hypertension. 6. History of degenerative joint disease. 7. History of migraines. 8. History of stroke in 2019, left-sided weakness. 9. History of hiatal hernia. 10.History of chronic pancreatitis. 11.History of degenerative joint disease. 12.History of appendectomy. 13.History of back surgery. 14.History of pancreatic stent and removal. 15.Remote history of nicotine dependence. RECOMMENDATIONS AND DISCUSSION: In this 64-year-old woman who presented with multiple complex medical issues, we will monitor the patient closely, continue the current management and symptomatic treatment. Once the patient is p.o. home medication may be restarted. Otherwise, I would recommend to hold the IV fluids once the patient is sleeping. Otherwise, continue the rest of medications and further recommendations to follow. MMLILIANAL / IJN: [id number] /
[2020-02-26 15:56] VITALS: BP 155/84; PULSE 80; RESP 18; TEMP 98.7
--- NOTE | 2020-02-26 16:22 | P.DS ---
Providers Date of admission: 02/26/20 00:05 Expected date of discharge: 02/26/20 Attending physician: Eze Amaya Primary care physician: Katherine De Los Santos [facility] Course: this is a 64-year-old female w underwent laparoscopic Karin fundopli patient did well postoperativy. Please see hospital chart ffor details. Procedures: laparoscopic Karin fundoplicat Patient Condition at Discharge: Good Plan - Discharge Summary Discharge Rx Participant: No New Discharge Prescriptions: New Docusate [Colace] 100 mg PO BID #20 capsule HYDROcodone/APAP 5-325MG [[place] 5-325] 1 tab PO Q6HR PRN #10 tab PRN Reason: Pain No Action Gabapentin 800 mg PO QID Diphenox-Atrop 2.5-0.025 mg [Lomotil] 1 tab PO TID PRN PRN Reason: Loose Stool Morphine Sulfate 15 mg PO BID PRN PRN Reason: Pain Fiorinal(Dose Unknown) 1 tab PO DIRECTED PRN PRN Reason: Pain Lotrel(Dose Unknown) 1 tab PO QAM Brilinta(Dose Unkownn) 1 tab PO QAM Discharge Medication List Diphenox-Atrop 2.5-0.025 mg [Lomotil] 1 tab PO TID PRN 09/08/19 [History] Gabapentin 800 mg PO QID 09/08/19 [History] Brilinta(Dose Unkownn) 1 tab PO QAM 02/23/20 [History] Fiorinal(Dose Unknown) 1 tab PO DIRECTED PRN 02/23/20 [History] Lotrel(Dose Unknown) 1 tab PO QAM 02/23/20 [History] Morphine Sulfate 15 mg PO BID PRN 02/23/20 [History] Docusate [Colace] 100 mg PO BID #20 capsule 02/26/20 [Rx] HYDROcodone/APAP 5-325MG [[place] 5-325] 1 tab PO Q6HR PRN #10 tab 02/26/20 [Rx] Follow up Appointment(s)/Referral(s): Magali Murphy MD [Primary Care Provider] - 03/02/20 1:10 pm Eze Amaya MD [STAFF PHYSICIAN] - 03/11/20 1:45 pm Patient Instructions/Handouts: Fundoplication in Adults (DC) Discharge Disposition: HOME SELF-CARE
--- NOTE | 2020-02-27 02:13 | PN ---
PROGRESS NOTE DATE OF SERVICE: 02/26/2020 This 64-year-old woman who was admitted after laparoscopic fundoplication is being closely monitored. No chest pain. No palpitations. No fever. Dr. Amaya is following the patient closely. PHYSICAL EXAMINATION: On exam, alert and oriented x3. Pulse 80, blood pressure 155/84, respiration 18, temperature 98.7, pulse ox 94% on room air. HEENT: Conjunctivae normal. NECK: No jugular venous distention. CARDIOVASCULAR: S1, S2 muffled. RESPIRATORY: Breath sounds are diminished at the bases. No rhonchi, no crackles. ABDOMEN: Soft, status post surgery. LEGS: No edema. No swelling. NERVOUS SYSTEM: No focal deficits. LABS: Accu-Cheks 130. ASSESSMENT: 1. Status post laparoscopic Karin fundoplication for gastroesophageal reflux disease. 2. Chronic obstructive pulmonary disease. 3. History of cerebrovascular accident, transient ischemic attack. 4. Gastroesophageal reflux disease. 5. Hypertension. 6. History of degenerative joint disease. 7. History of migraine. 8. History of stroke in 2020, left-sided weakness. 9. History of hiatal hernia. 10.History of chronic pancreatitis. 11.History of degenerative joint disease. 12.History of appendectomy. 13.History of back surgery. 14.History of pancreatic stent and removal. 15.Remote history of nicotine dependence. RECOMMENDATIONS AND DISCUSSION: Recommend to continue current medications, continue with monitoring and symptomatic treatment. Otherwise, patient improved significantly. Continue the home medications and follow closely with Dr. Murphy in the outpatient setting. Otherwise rest of the recommendations per Dr. Amaya. Further recommendations to follow. MMODL / IJN: [id number] /
== END 2020-02-26 17:23 | disposition home or self-care (01) ==
LOC: OR 09:23 → 4SSUR 12:54 → OR 02-26 00:10
PROVIDERS: ADMIT Surgery; ATTEND Surgery
DX: K21.9 Gastro-esophageal reflux disease without esophagitis (principal); K66.0 Peritoneal adhesions (postprocedural) (postinfection); R94.31 Abnormal electrocardiogram [ECG] [EKG]; I10 Essential (primary) hypertension; J44.9 Chronic obstructive pulmonary disease, unspecified; G43.909 Migraine, unspecified, not intractable, without status migrainosus; I69.354 Hemiplegia and hemiparesis following cerebral infarction affecting left non-dominant side; K44.9 Diaphragmatic hernia without obstruction or gangrene; K86.1 Other chronic pancreatitis; M47.899 Other spondylosis, site unspecified; K08.109 Complete loss of teeth, unspecified cause, unspecified class; Z87.19 Personal history of other diseases of the digestive system; Z87.81 Personal history of (healed) traumatic fracture; Z86.2 Personal history of diseases of the blood and blood-forming organs and certain disorders involving the immune mechanism; Z90.49 Acquired absence of other specified parts of digestive tract; Z98.890 Other specified postprocedural states; Z90.89 Acquired absence of other organs; Z98.1 Arthrodesis status; Z90.721 Acquired absence of ovaries, unilateral; Z87.59 Personal history of other complications of pregnancy, childbirth and the puerperium; Z87.891 Personal history of nicotine dependence; Z79.899 Other long term (current) drug therapy; Z79.02 Long term (current) use of antithrombotics/antiplatelets; Z79.891 Long term (current) use of opiate analgesic; Z80.9 Family history of malignant neoplasm, unspecified; Z80.3 Family history of malignant neoplasm of breast; Z80.0 Family history of malignant neoplasm of digestive organs; Z82.3 Family history of stroke
CPT/HCPCS: 43280; 74210; G0378; J2250; J2270 ×2; J0360; J1200; J1644; J1100; J2710; J0690; J2405; J2001; J1650; J3010; J1885; J1170 ×2; J0330; J2704; Q9967

== ENCOUNTER 2020-02-27 21:16 | Emergency (ER) | payer BC ==
[2020-02-27] MEDS ORDERED: SODIUM CHLORIDE 0.9% 500 ML 500 ML IV STA (21:29)
--- NOTE | 2020-02-27 21:31 | ED ---
General Adult HPI - General Stated complaint: Neuro Deficts Time Seen by Provider: 02/27/20 21:28 - History of Present Illness Initial comments: Dictation was produced using [employer] dictation software. please excuse any grammatical, word or spelling errors. This patient was cared for during a federal and state declared state of emergency secondary to Covid 19 Chief Complaint: 64-year-old female past medical history of stroke presents with strokelike symptoms. History of Present Illness: C4-year-old female she has past medical history of stroke, COPD hypertension. She presents today with her son. Patient allegedly was last seen normal about 6 AM this morning. Patient has history of strokes. Son noticed that patient was having strokelike symptoms brought her to the emergency department. Patient unable to provide HPI at this time secondary to mental status. According to son patient recently had hernia repair. She was pr escribed medical medications. The ROS documented in this emergency department record has been reviewed and confirmed by me. Those systems with pertinent positive or negative responses have been documented in the HPI. All other systems are other negative and/or noncontributory. PHYSICAL EXAM: General Impression: Left facial droop, lethargic HEENT: Normocephalic atraumatic, extra-ocular movements intact, pupils equal and reactive to light bilaterally, mucous membranes moist. Cardiovascular: Heart regular rate and rhythm Chest: Bilateral breath sounds no retractions, no tachypnea Abdomen: abdomen soft, non-tender, non-distended, no organomegaly Musculoskeletal: Pulses present and equal in all extremities, no peripheral edema Motor: no focal deficits noted Neurological: Left-sided facial droop, truncal ataxia, no sensory deficits, slurred speech Skin: Intact with no visualized rashes ED course: 64-year-old female presents with strokelike symptoms. Percent NIH is 3-4. Last known normal was 6 AM this morning. Code stroke paged. Computed tomography scan of the brain shows no acute processes. He does appear to be an old lacunar infarct at the right internal capsule and right posterior frontal lobe. CT angiogram of the head and neck was obtained showing no acute p rocesses. Patient not a candidate for TPA or thrombectomy according to Dr. Gray. CT of the chest and pelvis was obtained. Discussed patient case with precinct police sergeant Dr. Saeed. There is a previous some evidence of ileus. There is some small pneumoperitoneum which is consistent with recent laparoscopic abdominal surgery. There is a. The abdominal ascites with low-density fluid which is not suspicious for intraperitoneal hemorrhage. Laboratory evaluation obtained. Leukocytosis of 13.0. Rest of CBC is unremarkable. Coag panel is unremarkable. Arterial blood gases obtained due to patient's very appearance upon initial evaluation. Patient's blood gas was not extremely impressive showed a pH of 7.3, pCO2 of 23 the bicarb of 12. Metabolic panel was obtained. There is and a gap acidosis with gap 25 and a bicarb of 10. Grade 2.6, BUN 28. Lactic acidosis 2.4. Troponin is elevated 0.061. This likely elevated to acute kidney injury versus possible infectious process. Blood cultures pending. Patient covered with broad-spectrum antibiotics. We do not have neurology coverage at her facility over the weekend. Plan is to transfer to [facility]. Discussed patient case with Dr. Catalan who is willing to accept urinary ER transfer. Family is agreeable disposition. Initial blood pressure is 88/22. However after multiple boluses of intravenous fluids tachycardia. To improve and her blood pressure remained stable. No indication for pressor administration at this time. Patient reevaluated at bedside still days to have left-sided facial droop. EKG interpretation: Ventricular rate 126, sinus tachycardia,. Interval 132, QRS 66, QTC 472. No UT prolongation, no QTC prolongation, no ST or T-wave changes noted. Overall, this EKG is unremarkable - Related Data Home Medications Medication Instructions Recorded Confirmed Diphenox-Atrop 2.5-0.025 mg 1 tab PO TID PRN 09/08/19 02/25/20 [Lomotil] Gabapentin 800 mg PO QID 09/08/19 02/25/20 Brilinta(Dose Unkownn) 1 tab PO QAM 02/23/20 02/25/20 Fiorinal(Dose Unknown) 1 tab PO DIRECTED PRN 02/23/20 02/25/20 Lotrel(Dose Unknown) 1 tab PO QAM 02/23/20 02/25/20 Morphine Sulfate 15 mg PO BID PRN 02/23/20 02/25/20 Previous Rx's Medication Instructions Recorded Docusate [Colace] 100 mg PO BID #20 capsule 02/26/20 HYDROcodone/APAP 5-325MG [[place]erson 1 tab PO Q6HR PRN #10 tab 02/26/20 5-325] Allergies Allergy/AdvReac Type Severity Reaction Status Date / Time No Known Allergies Allergy Verified 02/25/20 10:46 Review of Systems ROS Statement: Those systems with pertinent positive or pertinent negative responses have been documented in the HPI. ROS Other: All systems not noted in ROS Statement are negative. 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/hx fx l2, hx anemia History of Any Multi-Drug Resistant Organisms: None Reported Past Surgical History: Appendectomy, Back Surgery, Cholecystectomy, Orthopedic Surgery, Tonsillectomy Additional Past Surgical History / Comment(s): Pancreatic stents-since removed, 6 back surgeries with 2 fusions, right oophorectomy due to ectopic , EGD/colonoscopy, right leg alice inserted d/t fracture, Past Anesthesia/Blood Transfusion Reactions: No Reported Reaction Additional Past Anesthesia/Blood Transfusion Reaction / Comment(s): DIFF IV STARTS, Pt has received blood in past without reaction. Past Psychological History: No Psychological Hx Reported Additional Psychological History / Comment(s): . Smoking Status: Former smoker Past Alcohol Use History: None Reported Additional Past Alcohol Use History / Comment(s): Pt started smoking in 1980, quit smoking Sep 2019, Past Drug Use History: None Reported Additional Drug Use History / Comment(s): . - Past Family History Father Family Medical History: Cancer Mother Family Medical History: Cancer, CVA/TIA Additional Family Medical History / Comment(s): breast and colon cancer. Course Vital Signs 02/27/20 02/27/20 02/27/20 21:26 21:46 22:02 Temperature 97.5 F L Pulse Rate 71 121 H Respiratory 28 H 24 40 H Rate Blood Pressure 88/22 129/71 O2 Sat by Pulse 96 97 Oximetry 02/27/20 22:16 Temperature Pulse Rate 115 H Respiratory Rate Blood Pressure 126/66 O2 Sat by Pulse 96 Oximetry Medical Decision Making - Lab Data Result diagrams: 02/27/20 21:38 02/27/20 21:38 Lab Results 02/27/20 02/27/20 02/27/20 Range/Units 21:31 21:38 21:38 WBC 13.0 H (3.8-10.6) k/uL RBC 5.05 (3.80-5.40) m/uL Hgb 13.9 (11.4-16.0) gm/dL Hct 46.1 H (34.0-46.0) % MCV 91.5 D (80.0-100.0) fL MCH 27.5 (25.0-35.0) pg MCHC 30.1 L (31.0-37.0) g/dL RDW 14.8 (11.5-15.5) % Plt Count 411 (150-450) k/uL Neutrophils % (Manual) 21 % Band Neutrophils % 49 % Lymphocytes % (Manual) 27 % Monocytes % (Manual) 4 % Neutrophils # (Manual) 9.10 H (1.3-7.7) k/uL Lymphocytes # (Manual) 3.51 (1.0-4.8) k/uL Monocytes # (Manual) 0.52 (0-1.0) k/uL Nucleated RBCs 0 (0-0) /100 WBC Manual Slide Review Performed Toxic Granulation Present Toxic Vacuolation Present Hypochromasia Slight PT (9.0-12.0) sec INR (<1.2) APTT (22.0-30.0) sec Sample Site ABG pH (7.35-7.45) ABG pCO2 (35-45) mmHg ABG pO2 (83-108) mmHg ABG HCO3 (21-25) mmol/L ABG O2 Saturation (94-97) % ABG Base Excess mmol/L FiO2 % Sodium 133 L (137-145) mmol/L Potassium 4.2 (3.5-5.1) mmol/L Chloride 98 (98-107) mmol/L Carbon Dioxide 10 L (22-30) mmol/L Anion Gap 25 mmol/L BUN 28 H (7-17) mg/dL Creatinine 2.60 H (0.52-1.04) mg/dL Est GFR (CKD-EPI)AfAm 22 (>60 ml/min/1.73 sqM) Est GFR (CKD-EPI)NonAf 19 (>60 ml/min/1.73 sqM) Glucose 311 H (74-99) mg/dL POC Glucose (mg/dL) 330 H (75-99) mg/dL POC Glu Admitting Officer ID Neri Bingham A Plasma Lactic Acid Derek (0.7-2.0) mmol/L Calcium 9.8 (8.4-10.2) mg/dL Ionized Calcium Khai 5.2 (4.5-5.3) mg/dL Magnesium 2.4 H (1.6-2.3) mg/dL Total Bilirubin 1.4 H (0.2-1.3) mg/dL AST 63 H (14-36) U/L ALT 34 (4-34) U/L Alkaline Phosphatase 88 (38-126) U/L Ammonia (<30) umol/L Troponin I (0.000-0.034) ng/mL Total Protein 6.5 (6.3-8.2) g/dL Albumin 3.7 (3.5-5.0) g/dL Lipase 75 (23-300) U/L 02/27/20 02/27/20 02/27/20 Range/Units 21:38 21:38 21:38 WBC (3.8-10.6) k/uL RBC (3.80-5.40) m/uL Hgb (11.4-16.0) gm/dL Hct (34.0-46.0) % MCV (80.0-100.0) fL MCH (25.0-35.0) pg MCHC (31.0-37.0) g/dL RDW (11.5-15.5) % Plt Count (150-450) k/uL Neutrophils % (Manual) % Band Neutrophils % % Lymphocytes % (Manual) % Monocytes % (Manual) % Neutrophils # (Manual) (1.3-7.7) k/uL Lymphocytes # (Manual) (1.0-4.8) k/uL Monocytes # (Manual) (0-1.0) k/uL Nucleated RBCs (0-0) /100 WBC Manual Slide Review Toxic Granulation Toxic Vacuolation Hypochromasia PT 12.0 (9.0-12.0) sec INR 1.2 H (<1.2) APTT 26.2 (22.0-30.0) sec Sample Site ABG pH (7.35-7.45) ABG pCO2 (35-45) mmHg ABG pO2 (83-108) mmHg ABG HCO3 (21-25) mmol/L ABG O2 Saturation (94-97) % ABG Base Excess mmol/L FiO2 % Sodium (137-145) mmol/L Potassium (3.5-5.1) mmol/L Chloride (98-107) mmol/L Carbon Dioxide (22-30) mmol/L Anion Gap mmol/L BUN (7-17) mg/dL Creatinine (0.52-1.04) mg/dL Est GFR (CKD-EPI)AfAm (>60 ml/min/1.73 sqM) Est GFR (CKD-EPI)NonAf (>60 ml/min/1.73 sqM) Glucose (74-99) mg/dL POC Glucose (mg/dL) (75-99) mg/dL POC Glu Admitting Officer ID Plasma Lactic Acid Derek 12.4 H* (0.7-2.0) mmol/L Calcium (8.4-10.2) mg/dL Ionized Calcium Khai (4.5-5.3) mg/dL Magnesium (1.6-2.3) mg/dL Total Bilirubin (0.2-1.3) mg/dL AST (14-36) U/L ALT (4-34) U/L Alkaline Phosphatase (38-126) U/L Ammonia <9 (<30) umol/L Troponin I 0.061 H* (0.000-0.034) ng/mL Total Protein (6.3-8.2) g/dL Albumin (3.5-5.0) g/dL Lipase (23-300) U/L 02/27/20 Range/Units 21:45 WBC (3.8-10.6) k/uL RBC (3.80-5.40) m/uL Hgb (11.4-16.0) gm/dL Hct (34.0-46.0) % MCV (80.0-100.0) fL MCH (25.0-35.0) pg MCHC (31.0-37.0) g/dL RDW (11.5-15.5) % Plt Count (150-450) k/uL Neutrophils % (Manual) % Band Neutrophils % % Lymphocytes % (Manual) % Monocytes % (Manual) % Neutrophils # (Manual) (1.3-7.7) k/uL Lymphocytes # (Manual) (1.0-4.8) k/uL Monocytes # (Manual) (0-1.0) k/uL Nucleated RBCs (0-0) /100 WBC Manual Slide Review Toxic Granulation Toxic Vacuolation Hypochromasia PT (9.0-12.0) sec INR (<1.2) APTT (22.0-30.0) sec Sample Site right radial ABG pH 7.33 L (7.35-7.45) ABG pCO2 23 L (35-45) mmHg ABG pO2 105 (83-108) mmHg ABG HCO3 12 L (21-25) mmol/L ABG O2 Saturation 96.7 (94-97) % ABG Base Excess -12.5 mmol/L FiO2 28 % Sodium (137-145) mmol/L Potassium (3.5-5.1) mmol/L Chloride (98-107) mmol/L Carbon Dioxide (22-30) mmol/L Anion Gap mmol/L BUN (7-17) mg/dL Creatinine (0.52-1.04) mg/dL Est GFR (CKD-EPI)AfAm (>60 ml/min/1.73 sqM) Est GFR (CKD-EPI)NonAf (>60 ml/min/1.73 sqM) Glucose (74-99) mg/dL POC Glucose (mg/dL) (75-99) mg/dL POC Glu Admitting Officer ID Plasma Lactic Acid Derek (0.7-2.0) mmol/L Calcium (8.4-10.2) mg/dL Ionized Calcium Khai (4.5-5.3) mg/dL Magnesium (1.6-2.3) mg/dL Total Bilirubin (0.2-1.3) mg/dL AST (14-36) U/L ALT (4-34) U/L Alkaline Phosphatase (38-126) U/L Ammonia (<30) umol/L Troponin I (0.000-0.034) ng/mL Total Protein (6.3-8.2) g/dL Albumin (3.5-5.0) g/dL Lipase (23-300) U/L Disposition Clinical Impression: CVA (cerebral vascular accident) Disposition: OTHER INSTITUTION NOT DEFINED Condition: Fair Referrals: Magali Murphy MD [Primary Care Provider] - 1-2 days Time of Disposition: 23:28 - Out of Hospital Transfer - Req. Specs Out of Hospital Transfer - Requested Specifics: Other Emergency Center ([facility])
[2020-02-27 21:42] LABS: Glucose,Whole Blood 330 mg/dL (75-99)
[2020-02-27] MEDS ORDERED: NALOXONE 0.4 MG/ML 10 ML VIAL IVP STA (21:45)
[2020-02-27] MEDS ORDERED: VANCOMYCIN IV PER PHARMACY 1 EACH MISC MISCELLANE PRN (21:54)
[2020-02-27] MEDS ORDERED: PIPERACILLIN-TAZOBACTAM 3.375 GM in SODIUM CHLORIDE 0.9% 100 ML IVPB STA (21:54)
[2020-02-27 21:59] LABS: HCT 46.1 % (34.0-46.0); HGB 13.9 gm/dL (11.4-16.0); Hypochromasia Slight; MCH 27.5 pg (25.0-35.0); MCHC 30.1 g/dL (31.0-37.0); Mean Platelet Volume 7.9; Platelet Count 411 k/uL (150-450); RBC 5.05 m/uL (3.80-5.40); RDW 14.8 % (11.5-15.5)
[2020-02-27 22:01] LABS: Ionized Calcium 5.2 mg/dL (4.5-5.3); MCV 91.5 fL (80.0-100.0)
[2020-02-27 22:05] LABS: INR 1.2 (<1.2); Partial Thromboplastin Time 26.2 sec (22.0-30.0)
--- NOTE | 2020-02-27 22:07 | XR ---
EXAMINATION TYPE: XR chest 1V portable DATE OF EXAM: 02/27/2020 COMPARISON: 02/13/2020 HISTORY: Altered mental status TECHNIQUE: FINDINGS: There is poor inspiration. There is no heart failure nor confluent pneumonic infiltrate. He art size is normal. Thoracic aorta is atheromatous. There are old left side healed rib fractures. IMPRESSION: Inspiration decreased compared to old exam. Mild subsegmental atelectasis at the lung bas es. Normal heart.
[2020-02-27 22:09] LABS: Albumin 3.7 g/dL (3.5-5.0); Calcium 9.8 mg/dL (8.4-10.2); Magnesium 2.4 mg/dL (1.6-2.3); Potassium 4.2 mmol/L (3.5-5.1); Total Bilirubin 1.4 mg/dL (0.2-1.3); Total Protein 6.5 g/dL (6.3-8.2)
[2020-02-27 22:13] LABS: ABG Base Excess -12.5 mmol/L; ABG HCO3 12 mmol/L (21-25); ABG Oxygen Saturation 96.7 % (94-97); ABG PCO2 23 mmHg (35-45); ABG PH 7.33 (7.35-7.45); ABG PO2 105 mmHg (83-108); Allen Test Performed? Yes
--- NOTE | 2020-02-27 22:13 | CT ---
EXAMINATION TYPE: CT brain wo con for TPA DATE OF EXAM: 02/27/2020 COMPARISON: 09/19/2019 HISTORY: Slurred speech, loss of bladder. CT DLP: 1166 mGycm Automated exposure control for dose reduction was used. There is some cerebral cortical atrophy. There is no mass effect nor midline shift. There is no sign of intracranial hemorrhage. There is 2.5 cm irregular area of hypodensity right posterior frontal lob e white matter related to old lacunar infarct. This involves the anterior right internal capsule. The re is some enlargement of the right lateral ventricle. The calvarium is intact. IMPRESSION: Cerebral atrophy. Old lacunar infarct right internal capsule and right posterior frontal lobe white m atter. No acute intracranial abnormality.
[2020-02-27 22:19] LABS: Lactic Acid, Venous 12.4 mmol/L (0.7-2.0)
[2020-02-27 22:20] LABS: Band Neutrophils % 49 %; Lymphocytes # (M) 3.51 k/uL (1.0-4.8); Monocytes # (M) 0.52 k/uL (0-1.0); Neutrophils % (M) 21 %; Nucleated Red Blood Cells 0 /100 WBC (0-0); Total Cells Counted 200
[2020-02-27 22:21] LABS: Toxic Granulation Present; Toxic Vacuolation Present
--- NOTE | 2020-02-27 22:35 | CT ---
EXAMINATION TYPE: CT ChestAbdPelvis w con DATE OF EXAM: 02/27/2020 COMPARISON: CT abdomen 12/11/2019 HISTORY: Slurred speech, loss of bladder. CT DLP: 693.7 mGycm Automated exposure control for dose reduction was used. CONTRAST: Performed with IV Contrast, patient injected with 35 mL of Isovue 370. There is some mild atelectasis at the posterior lung bases. There is hiatal hernia. Heart size is nor mal. There is no pericardial effusion. There is no evidence of a pulmonary mass. There is no pleural effusion. There are no hilar masses. There is no mediastinal adenopathy. There are surgical clips at the gastroesophageal junction. There are clips from cholecystectomy. The bile ducts are not dilated. Spleen is intact. There is panc reatic calcification and variable dilation of the pancreatic duct consistent with chronic pancreatiti s. I see no suspicious pancreatic mass. There is no adrenal mass. There is 1 cm cortical cyst upper pole right kidney. Kidneys show satisfact ory contrast opacification. There is no hydronephrosis. Ureters are not dilated. Bladder distends smo othly. There is no evidence of a pelvic mass. There is abdominal ascites with fluid in the pelvis and in the paracolic gutters. There is soft tissue air on the left anterior abdominal wall extending to the skin surface. There is small pneumoperitoneum. There are distended loops of air and fluid-filled small bowel consistent with ileus. There is contrast in the large bowel down to the sigmoid colon. Th ere is no inguinal hernia. There is multilevel posterior lumbar spine fusion surgery. There is 50% an terior wedging of L2 vertebral body. Thoracic spine is intact. The bony pelvis appears intact. IMPRESSION: There is evidence for some intestinal ileus. Small pneumoperitoneum with air on the left anterior abd ominal wall that should be correlated with the surgical history. Minimal pleural thickening and subsegmental atelectasis at the lung bases. There is pneumomediastinum . This is consistent with the fundoplication laparoscopic surgery according to the history. Changes in the pancreas consistent with chronic pancreatitis. Abdominal ascites. The density of the fluid is low and I do not suspect intraperitoneal hemorrhage. S ource of the fluid is not clear. This exam was discussed with Dr. Cedeño at 10:30 PM.
[2020-02-27] MEDS ORDERED: ASPIRIN 81 MG PO STA (22:51)
--- NOTE | 2020-02-27 22:51 | CT ---
EXAMINATION TYPE: CT angio head neck DATE OF EXAM: 02/27/2020 COMPARISON: None HISTORY: Slurred speech, loss of bladder. CT DLP: 374.3 mGycm Automated exposure control for dose reduction was used. CONTRAST: Performed with IV Contrast, patient injected with 65 mL of Isovue 370. Images were obtained from the aortic arch to the vertex of the brain with IV contrast. There are 3-D post processed images. There is normal branching pattern of the great vessels on the aortic arch. There is bilateral arteria l flow in the subclavian arteries. There is arterial flow in both vertebral arteries. There is arteri al flow in the common internal and external carotid arteries bilaterally. There is wide patency of th e carotid artery bifurcations. There is arterial flow in the vertebrobasilar artery system. There is arterial flow in the anterior middle and posterior cerebral arteries. There is hypodensity i n the white matter right posterior frontal lobe and internal capsule related to old infarct. There is normal contrast opacification of the venous sinuses. There is no mass effect. There is no evidence o f intracranial aneurysm or neovascularity. There is no evidence of carotid or vertebral artery aneury sm or dissection. IMPRESSION: Negative CT angiogram of the neck. Negative CT angiogram of the brain.
[2020-02-27] MEDS ORDERED: VANCOMYCIN 1,000 MG in SODIUM CHLORIDE 0.9% 250 ML IVPB ONE (23:00)
[2020-02-27] MEDS ORDERED: NALOXONE 0.4 MG/ML 1 ML VIAL IV STA (23:11)
[2020-02-28 01:39] VITALS: BP 105/79; PULSE 114; RESP 19; TEMP 98.4
== END 2020-02-28 01:41 | disposition other institution (70) ==
LOC: EC 21:16
DX: I63.9 Cerebral infarction, unspecified (principal); I10 Essential (primary) hypertension; K56.7 Ileus, unspecified; E87.2 Acidosis; R00.0 Tachycardia, unspecified; Z79.899 Other long term (current) drug therapy; Z87.891 Personal history of nicotine dependence; Z86.73 Personal history of transient ischemic attack (TIA), and cerebral infarction without residual deficits
CPT/HCPCS: 36415; 36600; 93005; 80053; 82330; 82140; 82805; 83605; 83690; 83735; 84484; 85025; 85610; 85730; 87040; 71045; 70496; 71260; 70450; 70498; 74177; 99285; 96365; 96367; 96366; 96375; 96361 ×2; J2543; J2310; Q9967

== ENCOUNTER 2020-03-18 16:43 | Emergency (ER) | payer BC ==
[2020-03-18 16:49] VITALS: RESP 18; TEMP 97.8
[2020-03-18] MEDS ORDERED: HYDROmorphone 0.5 MG/0.5 ML SYRINGE IVP STA ×2 (17:06→21:15)
[2020-03-18] MEDS ORDERED: SODIUM CHLORIDE 0.9% 1,000 ML IV STA (17:06)
--- NOTE | 2020-03-18 17:40 | ED ---
Abdominal Pain HPI <Nakul Wynn - Last Filed: 03/18/20 19:41> - General Source: patient Mode of arrival: EMS Limitations: no limitations <Zion Peña - Last Filed: 03/18/20 20:52> - General Chief Complaint: Abdominal Pain Stated Complaint: Abd Pain Time Seen by Provider: 03/18/20 16:51 - History of Present Illness Initial Comments: Patient is 64-year-old female with history of chronic pancreatitis presenting to emergency departments chief complaint abdominal pain. Patient states about 3 weeks ago she had pale hernia repair by Dr. Ozuna. States after procedure she continue to have pain in the epigastric region. Patient states this is not her typical pancreatitis like pain. Patient reports during the procedure, the "liver was lacerated". Patient denies any erythema at this is her site. Denies any nausea vomiting or diarrhea. Denies any night sweats or chills. Denies any chest pain or shortness of breath. States she does take morphine at home for chronic back pain. Denies any urinary or vaginal symptoms. Denies hematuria, hematochezia or melena. (Zion Peña) - Related Data Home Medications Medication Instructions Recorded Confirmed Aspirin [Children's Aspirin] 81 mg PO DAILY@0803/18/20 03/18/20 Atorvastatin [Lipitor] 40 mg PO HS@199903/18/20 03/18/20 Gabapentin [Neurontin] 100 mg PO TID@0800,1400,199903/18/20 03/18/20 Methocarbamol [Robaxin] 750 mg PO TID@0800,1200,1800 03/18/20 03/18/20 Pantoprazole Sodium [Protonix] 40 mg PO DAILY@79903/18/20 03/18/20 Sodium Bicarbonate Tab 650 mg PO BID@0800,199903/18/20 03/18/20 Sodium Chloride [Saline Nasal 1 spray EA NOSTRIL Q4H PRN 03/18/20 03/18/20 [place]] Ticagrelor [Brilinta] 90 mg PO BID@0800,199903/18/20 03/18/20 metFORMIN HCL [Glucophage] 500 mg PO DAILY@0800 03/18/20 03/18/20 oxyCODONE HCL [OxyCONTIN] 10 mg PO Q4H PRN 03/18/20 03/18/20 Allergies Allergy/AdvReac Type Severity Reaction Status Date / Time No Known Allergies Allergy Verified 03/18/20 18:56 Review of Systems ROS Other: All systems not noted in ROS Statement are negative. <Nakul Wynn - Last Filed: 03/18/20 19:41> ROS Other: All systems not noted in ROS Statement are negative. <Zion Peña - Last Filed: 03/18/20 20:52> ROS Statement: Those systems with pertinent positive or pertinent negative responses have been documented in the HPI. 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/hx fx l2, hx anemia History of Any Multi-Drug Resistant Organisms: None Reported Past Surgical History: Appendectomy, Back Surgery, Cholecystectomy, Orthopedic S urgery, Tonsillectomy Additional Past Surgical History / Comment(s): Pancreatic stents-since removed, 6 back surgeries with 2 fusions, right oophorectomy due to ectopic , EGD/colonoscopy, right leg alice inserted d/t fracture, Past Anesthesia/Blood Transfusion Reactions: No Reported Reaction Additional Past Anesthesia/Blood Transfusion Reaction / Comment(s): DIFF IV STARTS, Pt has received blood in past without reaction. Past Psychological History: No Psychological Hx Reported Smoking Status: Former smoker Past Alcohol Use History: None Reported Past Drug Use History: None Reported - Past Family History Father Family Medical History: Cancer Mother Family Medical History: Cancer, CVA/TIA Additional Family Medical History / Comment(s): breast and colon cancer. <Zion Peña - Last Filed: 03/18/20 20:52> General Exam Limitations: no limitations General appearance: alert, in no apparent distress Head exam: Present: atraumatic, normocephalic, normal inspection Eye exam: Present: normal appearance, PERRL, EOMI Pupils: Present: normal accommodation ENT exam: Present: normal exam, normal oropharynx, mucous membranes moist, TM's normal bilaterally, normal external ear exam Neck exam: Present: normal inspection, full ROM. Absent: tenderness Respiratory exam: Present: normal lung sounds bilaterally. Absent: respiratory distress, wheezes Cardiovascular Exam: Present: regular rate, normal rhythm, normal heart sounds GI/Abdominal exam: Present: soft, tenderness (Epigastric tenderness), other (Incision site in the mid sagittal line). Absent: distended, guarding, rebound, rigid Extremities exam: Present: normal inspection, full ROM, normal capillary refill. Absent: tenderness Back exam: Present: normal inspection, full ROM. Absent: muscle spasm Neurological exam: Present: alert, oriented X3 Psychiatric exam: Present: normal affect, normal mood Skin exam: Present: warm, dry, intact, normal color <Zion Peña - Last Filed: 03/18/20 20:52> Course Vital Signs 03/18/20 03/18/20 03/18/20 16:46 18:40 19:30 Temperature 97.8 F Pulse Rate 114 H 107 H Respiratory 18 18 Rate Blood Pressure 167/97 169/108 149/105 O2 Sat by Pulse 95 98 Oximetry 03/18/20 20:00 Temperature Pulse Rate Respiratory Rate Blood Pressure 140/100 O2 Sat by Pulse Oximetry Medical Decision Making - Lab Data Result diagrams: 03/18/20 17:39 03/18/20 17:39 <Nakul Wynn - Last Filed: 03/18/20 19:41> - Lab Data Result diagrams: 03/18/20 17:39 03/18/20 17:39 <Zion Peña - Last Filed: 03/18/20 20:52> - Medical Decision Making Patient reevaluated by myself, Dr. Wynn. Patient resting comfortably in bed. Abdomen soft mild tenderness. Patient states she does have chronic similar abdominal discomfort. Patient updated on results. Case discussed with Dr. Cash who is okay with discharge of patient and recommend she call Dr. Amaya tomorrow. Patient is updated. (Nakul Wynn) Patient is a 64-year-old female presenting to the emergency department with a chief complaint of abdominal pain. On exam patient appears to have epigastric abdominal tenderness with no signs of infection at the incision site. patient appears to have mild leukocytosis of 11.6. CT of abdomen and pelvis reveals evidence of chronic pancreatitis. Gastroenteritis suspected a CT, however this does not clinically correlate. No nausea vomiting diarrhea per patient. Patient states she was able to urinate this morning but has not urinated since. She denied any obstructive urinary symptoms. CT revealed some bladder distention. Patient was not able to urinate in the ED. Bladder scan revealed over 1 L of urine. Negron catheter will be placed and she is to contact Dr ozuna tomorrow. Dr. Wynn also evaluated the patient and is in agreement with the treatment plan. He contacted Dr. Carpio who is clearing the patient for discharge. Strict return parameters were thoroughly discussed the patient was understanding and agreeable. She was given Negron catheter instructions. (Zion Peña) - Lab Data Lab Results 03/18/20 03/18/20 03/18/20 Range/Units 17:39 17:39 19:49 WBC 11.6 H (3.8-10.6) k/uL RBC 3.93 (3.80-5.40) m/uL Hgb 10.9 L D (11.4-16.0) gm/dL Hct 34.7 (34.0-46.0) % MCV 88.2 (80.0-100.0) fL MCH 27.6 (25.0-35.0) pg MCHC 31.3 (31.0-37.0) g/dL RDW 15.2 (11.5-15.5) % Plt Count 531 H (150-450) k/uL Neutrophils % 75 % Lymphocytes % 16 % Monocytes % 6 % Eosinophils % 1 % Basophils % 0 % Neutrophils # 8.7 H (1.3-7.7) k/uL Lymphocytes # 1.9 (1.0-4.8) k/uL Monocytes # 0.7 (0-1.0) k/uL Eosinophils # 0.1 (0-0.7) k/uL Basophils # 0.0 (0-0.2) k/uL Hypochromasia Moderate Sodium 140 (137-145) mmol/L Potassium 4.0 (3.5-5.1) mmol/L Chloride 106 (98-107) mmol/L Carbon Dioxide 22 (22-30) mmol/L Anion Gap 12 mmol/L BUN 14 (7-17) mg/dL Creatinine 0.45 L (0.52-1.04) mg/dL Est GFR (CKD-EPI)AfAm >90 (>60 ml/min/1.73 sqM) Est GFR (CKD-EPI)NonAf >90 (>60 ml/min/1.73 sqM) Glucose 143 H (74-99) mg/dL Calcium 9.0 (8.4-10.2) mg/dL Total Bilirubin 0.7 (0.2-1.3) mg/dL AST 34 (14-36) U/L ALT 20 (4-34) U/L Alkaline Phosphatase 76 (38-126) U/L Total Protein 6.6 (6.3-8.2) g/dL Albumin 3.3 L (3.5-5.0) g/dL Lipase 259 (23-300) U/L Urine Color Yellow Urine Appearance Clear (Clear) Urine pH 6.5 (5.0-8.0) Ur Specific [place] 1.030 (1.001-1.035) Urine Protein 1+ H (Negative) Urine Glucose (UA) Negative (Negative) Urine Ketones 2+ H (Negative) Urine Blood Trace H (Negative) Urine Nitrite Negative (Negative) Urine Bilirubin Negative (Negative) Urine Urobilinogen <2.0 (<2.0) mg/dL Ur Leukocyte Esterase Negative (Negative) Urine RBC 17 H (0-5) /hpf Urine WBC 4 (0-5) /hpf Ur Squamous Epith Cells 1 (0-4) /hpf Hyaline Casts 10 H (0-2) /lpf Urine Mucus Many H (None) /hpf Disposition <Nakul Wynn - Last Filed: 03/18/20 19:41> Is patient prescribed a controlled substance at d/c from ED?: No Time of Disposition: 20:51 <Zion Peña - Last Filed: 03/18/20 20:52> Clinical Impression: Abdominal pain, Urinary retention Disposition: HOME SELF-CARE Condition: Good Instructions (If sedation given, give patient instructions): Negron Catheter Placement and Care (ED) Additional Instructions: Follow-up Instructions. Follow-up with as soon as possible. Return to emergency department if symptoms worsen. Referrals: Magali Murphy MD [Primary Care Provider] - 1-2 days
[2020-03-18 17:49] LABS: Basophils % (A) 0 %; Eosinophils # (A) 0.1 k/uL (0-0.7); Eosinophils % (A) 1 %; HCT 34.7 % (34.0-46.0); Hypochromasia Moderate; Lymphocytes # (A) 1.9 k/uL (1.0-4.8); Lymphocytes % (A) 16 %; MCH 27.6 pg (25.0-35.0); MCHC 31.3 g/dL (31.0-37.0); MCV 88.2 fL (80.0-100.0); Mean Platelet Volume 7.3; Monocytes # (A) 0.7 k/uL (0-1.0); Monocytes % (A) 6 %; Neutrophils # (A) 8.7 k/uL (1.3-7.7); Neutrophils % (A) 75 %; Platelet Count 531 k/uL (150-450); RBC 3.93 m/uL (3.80-5.40); RDW 15.2 % (11.5-15.5); WBC 11.6 k/uL (3.8-10.6)
[2020-03-18 17:50] LABS: HGB 10.9 gm/dL (11.4-16.0)
[2020-03-18 17:57] LABS: ALT 20 U/L (4-34); AST 34 U/L (14-36); African American GFR (CKD) >90 (>60 ml/min/1.73 sqM); Albumin 3.3 g/dL (3.5-5.0); Alkaline Phosphatase 76 U/L (38-126); Anion Gap 12 mmol/L; Blood Urea Nitrogen 14 mg/dL (7-17); Carbon Dioxide 22 mmol/L (22-30); Chloride 106 mmol/L (98-107); Glucose 143 mg/dL (74-99); Lipase 259 U/L (23-300); Non-African American GFR(CKD) >90 (>60 ml/min/1.73 sqM); Sodium 140 mmol/L (137-145); Total Bilirubin 0.7 mg/dL (0.2-1.3); Total Protein 6.6 g/dL (6.3-8.2)
[2020-03-18] MEDS ORDERED: HYDROmorphone 1 MG/ML 1 ML SYRINGE IVP STA (18:30)
--- NOTE | 2020-03-18 19:01 | CT ---
EXAMINATION TYPE: CT abdomen pelvis w con DATE OF EXAM: 03/18/2020 COMPARISON: Prior CT chest abdomen pelvis 02/27/2020 HISTORY: Epigastric abdominal pain post agrelia surgery x3 weeks ago. CT DLP: 962.9 mGycm Automated exposure control for dose reduction was used. TECHNIQUE: Helical acquisition of images from the lung bases through the pelvis have been completed. CONTRAST: Performed without Oral Contrast and with IV Contrast, patient injected with 100ml mL of Isovue 300. FINDINGS: Patient is status post Argelia fundoplication. Air-fluid levels present within the stomach, some dependent hyperdensity within the stomach may be due to radio dense medications, correlate. LUNG BASES: There are basilar atelectatic changes, small left pleural effusion is present. AORTA: No significant abnormality is appreciated. LIVER/GB: Dilated intra and extrahepatic ducts within the liver likely due to postcholecystectomy maynor nge. PANCREAS: Multiple calcifications present within the head of the pancreas, pancreas is atrophic and t here is a dilated pancreatic duct similar to prior exam SPLEEN: No significant abnormality is seen. ADRENALS: No significant abnormality is seen. KIDNEYS: No significant interval change is seen. REPRODUCTIVE ORGANS: No significant abnormality is seen BOWEL: Multiple fluid-filled loops of small bowel, large bowel are present without evident obstructi on.. FREE AIR: No Free Air visible. ASCITES: None visible. PELVIC ADENOPATHY: None visualized. RETROPERITONEAL ADENOPATHY: No Retroperitoneal Adenopathy visible. URINARY BLADDER: Urinary bladder is markedly distended with urine OSSEOUS STRUCTURES: No significant interval change is seen. Facet changes are noted to the spine and there is compression deformity present at the level of the superior most screw, the screws at this l evel extending to the disc space, vertebral plasty changes also present as on prior, postop change pr esent in the right femur IMPRESSION: CORRELATE FOR GASTROENTERITIS. POSTOP CHANGES. SMALL LEFT PLEURAL EFFUSION. INTERVAL IMPROVEMENT IN A SCITES. EVIDENCE OF CHRONIC PANCREATITIS. CORRELATE FOR URINARY RETENTION.
[2020-03-18 20:05] LABS: Appearance,Urine Clear (Clear); Bilirubin,Urine Negative (Negative); Blood,Urine Trace (Negative); Color,Urine Yellow; Glucose,Urine (UA) Negative (Negative); Hyaline Casts,Urine 10 /lpf (0-2); Ketones,Urine 2+ (Negative); Leukocyte Esterase,Urine Negative (Negative); Mucus,Urine Many /hpf; Nitrite,Urine Negative (Negative); PH, Urine 6.5 (5.0-8.0); Protein,Urine 1+ (Negative); RBC,Urine 17 /hpf (0-5); Squamous Epithelial Cell,Urine 1 /hpf (0-4); Urobilinogen,Urine <2.0 mg/dL (<2.0); WBC,Urine 4 /hpf (0-5)
[2020-03-18 21:42] VITALS: BP 138/92; PULSE 98
== END 2020-03-18 21:42 | disposition home or self-care (01) ==
LOC: EC 16:43
DX: K86.1 Other chronic pancreatitis (principal); R33.9 Retention of urine, unspecified; K21.9 Gastro-esophageal reflux disease without esophagitis; G43.909 Migraine, unspecified, not intractable, without status migrainosus; I10 Essential (primary) hypertension; M19.90 Unspecified osteoarthritis, unspecified site; Z87.891 Personal history of nicotine dependence; Z79.82 Long term (current) use of aspirin; Z79.899 Other long term (current) drug therapy; Z86.73 Personal history of transient ischemic attack (TIA), and cerebral infarction without residual deficits; Z79.891 Long term (current) use of opiate analgesic; Z90.49 Acquired absence of other specified parts of digestive tract; Z90.89 Acquired absence of other organs
CPT/HCPCS: 36415; 80053; 83690; 85025; 81001; 74177; 99285; 96374; 96376 ×2; 96361; 51702; J1170 ×2; Q9967

== ENCOUNTER 2020-04-26 09:41 | Emergency (ER) | payer BC ==
[2020-04-26 09:50] VITALS: RESP 18; TEMP 98.4
[2020-04-26] MEDS ORDERED: KETOROLAC 15 MG/ML 1 ML VIAL IM STA (10:07)
--- NOTE | 2020-04-26 10:21 | ED ---
Upper Extremity HPI - General Chief Complaint: Extremity Injury, Upper Stated Complaint: Fall/Left shoulder pain Time Seen by Provider: 04/26/20 09:56 Source: patient Mode of arrival: wheelchair Limitations: no limitations - History of Present Illness Initial Comments: patient is a 64-year-old female presenting to the emergency Department with complaints of pain in her left arm as well as her left ribs for 2 days now. Patient states 2 days ago she was draining and rolled out of her bed hitting her left arm on her nightstand. Patient states the pain has been continuing associated decided to be seen. Patient states she took a [place] about 1 AM this morning with no relief. She states it hurts to take in a deep breath. She denies any chest pains other than the left side rib pain. she states she is on blood thinners however she did not hit her head, no neck pain. She has no shortness of breath, no nausea, vomiting. She denies any pain in her lower extremities, no abdominal pain. Patient is requesting pain medicine. She has no further complaints at this time. Upon arrival to the ER, her vital signs are stable. - Related Data Home Medications Medication Instructions Recorded Confirmed Aspirin [Children's Aspirin] 81 mg PO DAILY@0803/18/20 03/18/20 Atorvastatin [Lipitor] 40 mg PO HS@199903/18/20 03/18/20 Gabapentin [Neurontin] 100 mg PO TID@0800,1400,199903/18/20 03/18/20 Pantoprazole Sodium [Protonix] 40 mg PO DAILY@79903/18/20 03/18/20 Sodium Bicarbonate Tab 650 mg PO BID@0800,199903/18/20 03/18/20 Sodium Chloride [Saline Nasal 1 spray EA NOSTRIL Q4H PRN 03/18/20 03/18/20 [place]] Ticagrelor [Brilinta] 90 mg PO BID@0800,199903/18/20 03/18/20 metFORMIN HCL [Glucophage] 500 mg PO DAILY@0800 03/18/20 03/18/20 methocarbamoL [Robaxin] 750 mg PO TID@0800,1200,1800 03/18/20 03/18/20 oxyCODONE HCL [OxyCONTIN] 10 mg PO Q4H PRN 03/18/20 03/18/20 Allergies Allergy/AdvReac Type Severity Reaction Status Date / Time No Known Allergies Allergy Verified 04/26/20 09:49 Review of Systems ROS Statement: Those systems with pertinent positive or pertinent negative responses have been documented in the HPI. ROS Other: All systems not noted in ROS Statement are negative. 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/hx fx l2, hx anemia History of Any Multi-Drug Resistant Organisms: None Reported Past Surgical History: Appendectomy, Back Surgery, Cholecystectomy, Orthopedic Surgery, Tonsillectomy Additional Past Surgical History / Comment(s): Pancreatic stents-since removed, 6 back surgeries with 2 fusions, right oophorectomy due to ectopic , EGD/colonoscopy, right leg alice inserted d/t fracture, Past Anesthesia/Blood Transfusion Reactions: No Reported Reaction Additional Past Anesthesia/Blood Transfusion Reaction / Comment(s): DIFF IV STARTS, Pt has received blood in past without reaction. Past Psychological History: No Psychological Hx Reported Smoking Status: Former smoker Past Alcohol Use History: None Reported Past Drug Use History: None Reported - Past Family History Father Family Medical History: Cancer Mother Family Medical History: Cancer, CVA/TIA Additional Family Medical History / Comment(s): breast and colon cancer. General Exam - General Exam Comments Initial Comments: GENERAL: Patient is well-developed and well-nourished. Patient is nontoxic and in no acute distress. HEAD: Atraumatic, normocephalic. EYES: Pupils equal round and reactive to light, extraocular movements intact, sclera anicteric, conjunctiva are normal. Eyelids were unremarkable. ENT: TMs normal, nares patent, oropharynx clear without exudates. Moist mucous membranes. NECK: Normal range of motion, supple without lymphadenopathy or JVD. LUNGS: Unlabored respirations. Breath sounds clear to auscultation bilaterally and equal. No wheezes rales or rhonchi. pain with palpation of the left lateral ribs. There is no bruising to this area. No obvious deformity felt or seen. HEART: Regular rate and rhythm without murmurs, rubs or gallops. ABDOMEN: Soft, nontender, normoactive bowel sounds. No guarding, no rebound. No masses appreciated. : Deferred MUSCULOSKELETAL: patient has decreased left shoulder range of motion secondary to pain. No obvious deformity seen. She is neurovascular intact upper extremities bilaterally. there is no swelling of the upper extremities. No clubbing or cyanosis. NEUROLOGICAL: Patient is alert and oriented x 3. Motor and sensory are also intact. Cranial nerves II through XII grossly intact. Symmetrical smile. Normal speech, normal gait. PSYCH: Normal mood, normal affect. SKIN: Warm, Dry, normal turgor, no rashes. Limitations: no limitations Course Vital Signs 04/26/20 04/26/20 09:44 11:09 Temperature 98.4 F Pulse Rate 107 H Respiratory 18 18 Rate Blood Pressure 152/100 O2 Sat by Pulse 98 Oximetry Medical Decision Making - Medical Decision Making patient is 64-year-old female here for left arm pain and left rib pain after she rolled out of bed 2 days ago. She denies any other injuries from this small fall. She is requesting pain medicine. I did check a MAPS on the patient and she is currently receiving oxycodone from her PCP. Her last refill was 10 days ago. x-rays reveal no acute fractures of her left shoulder, x-rays of the left side of the ribs show old fracture sites, no acute fractures. I discussed these findings with the patient. She is requesting additional pain meds. I will give her 1 tablet of Percocet. She needs to follow up with her PCP. She is in agreement with this plan of care. She is stable for discharge. Disposition Clinical Impression: Contusion of left shoulder, Contusion of rib on left side Disposition: HOME SELF-CARE Condition: Stable Instructions (If sedation given, give patient instructions): Rib Contusion (ED) Additional Instructions: Please return to the Emergency Department if symptoms worsen or any other concerns. Use heat or ice to the area. Follow-up with PCP. Is patient prescribed a controlled substance at d/c from ED?: No Referrals: Reyes Russ MD [Primary Care Provider] - 1-2 days
--- NOTE | 2020-04-26 11:25 | XR ---
EXAMINATION TYPE: PA chest with left rib series, 5 views DATE OF EXAM: 04/26/2020 Comparison: 02/27/2020 Clinical History: 64-year-old female fall, pain Findings: Patient is rotated towards the left casting differential hazy density over the right hemithorax. Hear t normal size. Aorta and pulmonary vasculature within normal limits. Hyperinflation. No consolidation , pneumothorax, or pleural effusion is seen. Old left posterolateral fifth and sixth rib fracture deformities. Additional old fracture deformities left lateral fifth, sixth, seventh, and eighth rib fracture deformities. No acute displaced fracture s clearly identified. Posterior and interbody lumbar fusion hardware. Impression: 1. COPD. No acute process seen. 2. Fractures of multiple left-sided ribs including the posterolateral fifth and sixth ribs and latera l fifth, sixth, seventh, and eighth ribs. There is associated mature callus suggesting subacute to ch ronic healed fracture deformities. 3. No definite acute displaced left rib fracture is identified.
--- NOTE | 2020-04-26 11:31 | XR ---
EXAMINATION TYPE: XR shoulder complete LT DATE OF EXAM: 04/26/2020 COMPARISON: NONE HISTORY: 64-year-old female fall, pain TECHNIQUE: 3 views FINDINGS: Moderate degenerative joint space narrowing and marginal spurring at the acromioclavicular joint. Subacromial space is preserved. Mild degenerative spurring inferior glenoid. No acute fracture , subluxation, or dislocation seen. IMPRESSION: Moderate left AC joint and mild glenohumeral joint OA. No acute osseous abnormality seen.
[2020-04-26] MEDS ORDERED: oxyCODONE-APAP 10-325MG 1 EACH TAB PO STA (11:40)
[2020-04-26 12:09] VITALS: BP 119/86; PULSE 98
== END 2020-04-26 12:11 | disposition home or self-care (01) ==
LOC: EC 09:41
DX: S40.012A Contusion of left shoulder, initial encounter (principal); S20.212A Contusion of left front wall of thorax, initial encounter; K21.9 Gastro-esophageal reflux disease without esophagitis; I10 Essential (primary) hypertension; M19.90 Unspecified osteoarthritis, unspecified site; M47.9 Spondylosis, unspecified; G43.909 Migraine, unspecified, not intractable, without status migrainosus; I69.354 Hemiplegia and hemiparesis following cerebral infarction affecting left non-dominant side; Z79.891 Long term (current) use of opiate analgesic; Z79.82 Long term (current) use of aspirin; Z79.899 Other long term (current) drug therapy; Z87.19 Personal history of other diseases of the digestive system; Z79.01 Long term (current) use of anticoagulants; Z87.891 Personal history of nicotine dependence; Z98.890 Other specified postprocedural states; Z87.81 Personal history of (healed) traumatic fracture; W06.XXXA Fall from bed, initial encounter; Y93.89 Activity, other specified; Y92.003 Bedroom of unspecified non-institutional (private) residence as the place of occurrence of the external cause
CPT/HCPCS: 71101; 73030; 96372; 99283; J1885

== ENCOUNTER 2020-04-27 18:55 | Emergency (ER) | payer BC ==
[2020-04-27] MEDS ORDERED: HYDROcodone/APAP 5-325MG 1 EACH TAB PO STA (19:54)
[2020-04-27 20:15] LABS: Basophils % (A) 1 %; Eosinophils # (A) 0.2 k/uL (0-0.7); Eosinophils % (A) 3 %; HCT 37.5 % (34.0-46.0); HGB 11.5 gm/dL (11.4-16.0); Lymphocytes # (A) 2.9 k/uL (1.0-4.8); Lymphocytes % (A) 36 %; MCH 25.8 pg (25.0-35.0); MCHC 30.8 g/dL (31.0-37.0); MCV 83.8 fL (80.0-100.0); Mean Platelet Volume 6.9; Monocytes # (A) 0.4 k/uL (0-1.0); Monocytes % (A) 6 %; Neutrophils # (A) 4.1 k/uL (1.3-7.7); Neutrophils % (A) 53 %; Platelet Count 515 k/uL (150-450); RBC 4.47 m/uL (3.80-5.40); RDW 15.6 % (11.5-15.5); WBC 7.8 k/uL (3.8-10.6)
[2020-04-27 20:18] LABS: Appearance,Urine Cloudy (Clear); Bacteria,Urine Many /hpf; Bilirubin,Urine 2+ (Negative); Blood,Urine Moderate (Negative); Budding Yeast,Urine Rare /hpf; Color,Urine Dark Brown; Glucose,Urine (UA) Negative (Negative); Ketones,Urine Negative (Negative); Leukocyte Esterase,Urine Large (Negative); Mucus,Urine Few /hpf; Nitrite,Urine Positive (Negative); Protein,Urine 1+ (Negative); RBC,Urine 3 /hpf (0-5); Specific Gravity,Urine 1.024 (1.001-1.035); WBC,Urine >182 /hpf (0-5)
--- NOTE | 2020-04-27 20:21 | ED ---
Female Urogenital HPI - General Chief complaint: Urogenital Stated complaint: trouble urinating Time Seen by Provider: 04/27/20 19:05 Source: patient Mode of arrival: wheelchair Limitations: no limitations - History of Present Illness Initial comments: 64-year-old feel present today for chief complaint of feeling like she can't urinate. Patient states she has the sensation that she has to urinate but can't. Patient states that she has pain in the lower midline abdomen. Patient states she is not sure what is wrong she denies fever stress upper abdominal pain she denies any nausea vomiting or back pain. Patient is no additional complaints upon arrival she appears well nontoxic. Patient did have a fall yesterday. She states she did not hurt her fall on her back she states she fell on her left arm. Patient denies any leg weakness or sensation deficits of the lower extremities incontinence of urine or stool. - Related Data Home Medications Medication Instructions Recorded Confirmed Aspirin [Children's Aspirin] 81 mg PO DAILY@0803/18/20 03/18/20 Atorvastatin [Lipitor] 40 mg PO HS@199903/18/20 03/18/20 Gabapentin [Neurontin] 100 mg PO TID@0800,1400,199903/18/20 03/18/20 Pantoprazole Sodium [Protonix] 40 mg PO DAILY@79903/18/20 03/18/20 Sodium Bicarbonate Tab 650 mg PO BID@0800,199903/18/20 03/18/20 Sodium Chloride [Saline Nasal 1 spray EA NOSTRIL Q4H PRN 03/18/20 03/18/20 [place]] Ticagrelor [Brilinta] 90 mg PO BID@0800,199903/18/20 03/18/20 metFORMIN HCL [Glucophage] 500 mg PO DAILY@0800 03/18/20 03/18/20 methocarbamoL [Robaxin] 750 mg PO TID@0800,1200,1800 03/18/20 03/18/20 oxyCODONE HCL [OxyCONTIN] 10 mg PO Q4H PRN 03/18/20 03/18/20 Previous Rx's Medication Instructions Recorded Cephalexin [Keflex] 500 mg PO Q6HR 7 Days #28 cap 04/27/20 Allergies Allergy/AdvReac Type Severity Reaction Status Date / Time No Known Allergies Allergy Verified 04/27/20 19:03 Review of Systems ROS Statement: Those systems with pertinent positive or pertinent negative responses have been documented in the HPI. ROS Other: All systems not noted in ROS Statement are negative. 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/hx fx l2, hx anemia History of Any Multi-Drug Resistant Organisms: None Reported Past Surgical History: Appendectomy, Back Surgery, Cholecystectomy, Orthopedic Surgery, Tonsillectomy Additional Past Surgical History / Comment(s): Pancreatic stents-since removed, 6 back surgeries with 2 fusions, right oophorectomy due to ectopic , EGD/colonoscopy, right leg alice inserted d/t fracture, Past Anesthesia/Blood Transfusion Reactions: No Reported Reaction Additional Past Anesthesia/Blood Transfusion Reaction / Comment(s): DIFF IV STARTS, Pt has received blood in past without reaction. Past Psychological History: No Psychological Hx Reported Smoking Status: Former smoker Past Alcohol Use History: None Reported Past Drug Use History: None Reported - Past Family History Father Family Medical History: Cancer Mother Family Medical History: Cancer, CVA/TIA Additional Family Medical History / Comment(s): breast and colon cancer. General Exam - General Exam Comments Initial Comments: General: The patient is awake and alert, in no distress Eye: Pupils are equal, round and reactive to light, extra-ocular movements are intact. No nystagmus. There is normal conjunctiva bilaterally. No signs of icterus. Ears, nose, mouth and throat: There are moist mucous membranes and no oral lesions. Neck: The neck is supple, there is no tenderness or JVD. Cardiovascular: There is a regular rate and rhythm. No murmur, rub or gallop is appreciated. Respiratory: Lungs are clear to auscultation, respirations are non-labored, breath sounds are equal. No wheezes, stridor, rales, or rhonchi. Gastrointestinal: Soft, non-distended, suprapubic tenderness to palpation of the abdomen, abdomen without masses or organomegaly noted. There is no rebound or guarding present. Musculoskeletal: Normal ROM, no tenderness. Strength 5/5. Sensation intact. Radial pulses equal bilaterally 2+. Neurological: A&O x 3. CN II-XII intact grossly, There are no obvious motor or sensory deficits. Coordination appears grossly intact. Speech is normal. Skin: Skin is warm and dry and no rashes or lesions are noted. Psychiatric: Cooperative, appropriate mood & affect, normal judgment. Limitations: no limitations Course Vital Signs 04/27/20 04/27/20 19:01 21:18 Temperature 99.2 F 98.9 F Pulse Rate 100 90 Respiratory 8 L 18 Rate Blood Pressure 134/91 132/94 O2 Sat by Pulse 98 99 Oximetry Medical Decision Making - Medical Decision Making 64yo prsenting for what sounds like urgency to urinate, increased frequency. unable to void on arrival, 125ml in bladder. Patient cathed. signs of infection. Patient does not appears toxic, given rocephin and will be discharged with keflex. Return parameters discussed and patient was discharged appearing well, after discussing case with attending Dr. Knott - Lab Data Result diagrams: 04/27/20 19:44 04/27/20 19:44 Lab Results 04/27/20 04/27/20 04/27/20 Range/Units 19:44 19:44 19:44 WBC 7.8 (3.8-10.6) k/uL RBC 4.47 (3.80-5.40) m/uL Hgb 11.5 (11.4-16.0) gm/dL Hct 37.5 (34.0-46.0) % MCV 83.8 (80.0-100.0) fL MCH 25.8 (25.0-35.0) pg MCHC 30.8 L (31.0-37.0) g/dL RDW 15.6 H (11.5-15.5) % Plt Count 515 H (150-450) k/uL Neutrophils % 53 % Lymphocytes % 36 % Monocytes % 6 % Eosinophils % 3 % Basophils % 1 % Neutrophils # 4.1 (1.3-7.7) k/uL Lymphocytes # 2.9 (1.0-4.8) k/uL Monocytes # 0.4 (0-1.0) k/uL Eosinophils # 0.2 (0-0.7) k/uL Basophils # 0.0 (0-0.2) k/uL Sodium 137 (137-145) mmol/L Potassium 3.7 (3.5-5.1) mmol/L Chloride 105 (98-107) mmol/L Carbon Dioxide 23 (22-30) mmol/L Anion Gap 9 mmol/L BUN 11 (7-17) mg/dL Creatinine 0.52 (0.52-1.04) mg/dL Est GFR (CKD-EPI)AfAm >90 (>60 ml/min/1.73 sqM) Est GFR (CKD-EPI)NonAf >90 (>60 ml/min/1.73 sqM) Glucose 116 H (74-99) mg/dL Calcium 9.1 (8.4-10.2) mg/dL Total Bilirubin 0.5 (0.2-1.3) mg/dL AST 27 (14-36) U/L ALT 12 (4-34) U/L Alkaline Phosphatase 76 (38-126) U/L Total Protein 7.0 (6.3-8.2) g/dL Albumin 3.9 (3.5-5.0) g/dL Urine Color Dark Brown Urine Appearance Cloudy H (Clear) Urine pH 6.0 (5.0-8.0) Ur Specific [place] 1.024 (1.001-1.035) Urine Protein 1+ H (Negative) Urine Glucose (UA) Negative (Negative) Urine Ketones Negative (Negative) Urine Blood Moderate H (Negative) Urine Nitrite Positive H (Negative) Urine Bilirubin 2+ H (Negative) Urine Urobilinogen 6.0 (<2.0) mg/dL Ur Leukocyte Esterase Large H (Negative) Urine RBC 3 (0-5) /hpf Urine WBC >182 H (0-5) /hpf Urine WBC Clumps Many H (None) /hpf Urine Bacteria Many H (None) /hpf Urine Mucus Few H (None) /hpf Urine Yeast (Budding) Rare H (None) /hpf Disposition Clinical Impression: Urgency of urination, Suprapubic pain, UTI (urinary tract infection) Disposition: HOME SELF-CARE Condition: Good Instructions (If sedation given, give patient instructions): Urinary Tract I nfection in Women (ED) Additional Instructions: Please use medication as discussed. Please follow-up with family doctor in the next 2 days. Please return to emergency room if the symptoms increase or worsen or for any other concerns. Prescriptions: Cephalexin [Keflex] 500 mg PO Q6HR 7 Days #28 cap Is patient prescribed a controlled substance at d/c from ED?: No Referrals: Reyes Russ MD [Primary Care Provider] - 1-2 days Time of Disposition: 20:21
[2020-04-27 20:22] LABS: ALT 12 U/L (4-34); AST 27 U/L (14-36); African American GFR (CKD) >90 (>60 ml/min/1.73 sqM); Albumin 3.9 g/dL (3.5-5.0); Alkaline Phosphatase 76 U/L (38-126); Anion Gap 9 mmol/L; Blood Urea Nitrogen 11 mg/dL (7-17); Calcium 9.1 mg/dL (8.4-10.2); Carbon Dioxide 23 mmol/L (22-30); Chloride 105 mmol/L (98-107); Glucose 116 mg/dL (74-99); Non-African American GFR(CKD) >90 (>60 ml/min/1.73 sqM); Potassium 3.7 mmol/L (3.5-5.1); Sodium 137 mmol/L (137-145); Total Bilirubin 0.5 mg/dL (0.2-1.3)
[2020-04-27] MEDS ORDERED: KETOROLAC 15 MG/ML 1 ML VIAL IVP STA (20:37)
[2020-04-27] MEDS ORDERED: MORPHINE SULFATE 2 MG/ML SYRINGE IVP STA (20:54)
[2020-04-27 21:23] VITALS: BP 132/94; PULSE 90; RESP 18; TEMP 98.9
== END 2020-04-27 21:18 | disposition home or self-care (01) ==
LOC: EC 18:55
DX: N39.0 Urinary tract infection, site not specified (principal); R39.15 Urgency of urination; K21.9 Gastro-esophageal reflux disease without esophagitis; I10 Essential (primary) hypertension; M19.90 Unspecified osteoarthritis, unspecified site; Z79.899 Other long term (current) drug therapy; Z79.82 Long term (current) use of aspirin; Z87.891 Personal history of nicotine dependence; Z86.69 Personal history of other diseases of the nervous system and sense organs; Z86.73 Personal history of transient ischemic attack (TIA), and cerebral infarction without residual deficits; Z98.1 Arthrodesis status
CPT/HCPCS: 36415; 80053; 85025; 81001; 87086; 99284; 96365; 96375; J0696; J2270

== ENCOUNTER 2020-04-29 12:09 | Emergency (ER) | payer BC ==
[2020-04-29 12:41] VITALS: RESP 16
[2020-04-29] MEDS ORDERED: MORPHINE SULFATE 2 MG/ML SYRINGE IM STA (13:09)
--- NOTE | 2020-04-29 14:07 | ED ---
Abdominal Pain HPI - General Chief Complaint: Abdominal Pain Stated Complaint: Abd pain, hernia pain Time Seen by Provider: 04/29/20 12:43 Source: patient Mode of arrival: wheelchair Limitations: no limitations - History of Present Illness Initial Comments: Patient is a 64-year-old female presenting to the emergency Department with complaints of mid abdominal pain that has been increasing over the past few days. This is patient's third visit in 4 days to the ER. She was diagnosed 2 days ago with a UTI as currently on antibiotics for this. Patient states she had a hernia surgery performed in February and has been having pain since. Patient has not gone back for follow-up with her surgeon. Patient denies any recent fever, chills, nausea or vomiting. She is on chronic pain medicine, however she has been out for the past week or 2. She denies any chest pain, shortness of breath. She has no further complaints at this time. Upon arrival to the ER, patient has slightly tachycardia, otherwise vital signs are normal. - Related Data Home Medications Medication Instructions Recorded Confirmed Aspirin [Children's Aspirin] 81 mg PO DAILY@0803/18/20 03/18/20 Atorvastatin [Lipitor] 40 mg PO HS@199903/18/20 03/18/20 Gabapentin [Neurontin] 100 mg PO TID@0800,1400,199903/18/20 03/18/20 Pantoprazole Sodium [Protonix] 40 mg PO DAILY@79903/18/20 03/18/20 Sodium Bicarbonate Tab 650 mg PO BID@0800,199903/18/20 03/18/20 Sodium Chloride [Saline Nasal 1 spray EA NOSTRIL Q4H PRN 03/18/20 03/18/20 [place]] Ticagrelor [Brilinta] 90 mg PO BID@0800,199903/18/20 03/18/20 metFORMIN HCL [Glucophage] 500 mg PO DAILY@00 03/18/20 03/18/20 methocarbamoL [Robaxin] 750 mg PO TID@0800,1200,1800 03/18/20 03/18/20 oxyCODONE HCL [OxyCONTIN] 10 mg PO Q4H PRN 03/18/20 03/18/20 Previous Rx's Medication Instructions Recorded Cephalexin [Keflex] 500 mg PO Q6HR 7 Days #28 cap 04/27/20 Allergies Allergy/AdvReac Type Severity Reaction Status Date / Time No Known Allergies Allergy Verified 04/29/20 12:41 Review of Systems ROS Statement: Those systems with pertinent positive or pertinent negative responses have been documented in the HPI. ROS Other: All systems not noted in ROS Statement are negative. 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/hx fx l2, hx anemia History of Any Multi-Drug Resistant Organisms: None Reported Past Surgical History: Appendectomy, Back Surgery, Cholecystectomy, Orthopedic Surgery, Tonsillectomy Additional Past Surgical History / Comment(s): Pancreatic stents-since removed, 6 back surgeries with 2 fusions, right oophorectomy due to ectopic , EGD/colonoscopy, right leg alice inserted d/t fracture, Past Anesthesia/Blood Transfusion Reactions: No Reported Reaction Additional Past Anesthesia/Blood Transfusion Reaction / Comment(s): DIFF IV STARTS, Pt has received blood in past without reaction. Past Psychological History: No Psychological Hx Reported Smoking Status: Former smoker Past Alcohol Use History: None Reported Past Drug Use History: None Reported - Past Family History Father Family Medical History: Cancer Mother Family Medical History: Cancer, CVA/TIA Additional Family Medical History / Comment(s): breast and colon cancer. General Exam - General Exam Comments Initial Comments: GENERAL: Patient is well-developed and well-nourished. Patient is nontoxic and in no acute distress. HEAD: Atraumatic, normocephalic. EYES: Pupils equal round and reactive to light, extraocular movements intact, sclera anicteric, conjunctiva are normal. Eyelids were unremarkable. ENT: TMs normal, nares patent, oropharynx clear without exudates. Moist mucous membranes. NECK: Normal range of motion, supple without lymphadenopathy or JVD. LUNGS: Unlabored respirations. Breath sounds clear to auscultation bilaterally and equal. No wheezes rales or rhonchi. HEART: Regular rate and rhythm without murmurs, rubs or gallops. ABDOMEN: Diffuse abdominal pain with palpation, Soft, normoactive bowel sounds. No guarding, no rebound. No masses appreciated. No overlying erythema or signs of infection. : Deferred MUSCULOSKELETAL: Normal extremities with adequate strength and normal range of motion, no pitting or edema. No clubbing or cyanosis. NEUROLOGICAL: Patient is alert and oriented x 3. Motor and sensory are also intact. Cranial nerves II through XII grossly intact. Symmetrical smile. Normal speech, normal gait. PSYCH: Normal mood, normal affect. SKIN: Warm, Dry, normal turgor, no rashes or lesions noted. Limitations: no limitations Course Vital Signs 04/29/20 04/29/20 12:39 14:43 Temperature 99.1 F 98.3 F Pulse Rate 111 H 92 Respiratory 16 16 Rate Blood Pressure 155/90 144/89 O2 Sat by Pulse 97 99 Oximetry Medical Decision Making - Medical Decision Making Patient is 64-year-old female here for abdominal pain has been increasing over the past few days. Patient is currently being treated for UTI. This is patient's third visit in 4 days to the ER. She states she did take a [place] earlier this morning without relief of symptoms. We did an ultrasound of her abdomen, showed no other significant findings, possible seromas. Patient was given pain control, states she feels better. I discussed with patient that she needs follow-up with her surgeon, patient refused to go back to her original surgeon and is requesting a referral to a different surgeon. I will give her referral. Patient is also requesting additional pain medicines for at home. I discussed with patient that I cannot give her a prescription for additional pain medicines as she needs to get those from her PCP. I did send her with a starter pack of tramadol. She is in agreement with this plan of care and is stable for discharge. Return parameters were discussed with the patient she verbalized understanding. Case discussed with Dr. Alvarez. Disposition Clinical Impression: Abdominal pain Disposition: HOME SELF-CARE Condition: Stable Instructions (If sedation given, give patient instructions): Abdominal Pain (ED) Additional Instructions: Please return to the Emergency Department if symptoms worsen or any other concerns. Continue with already prescribed antibiotics for your UTI. Follow up with surgeon as discussed for continued abdominal discomfort. Is patient prescribed a controlled substance at d/c from ED?: No Referrals: None,Stated [REFERRING] - 1-2 days Marissa Wylie MD [STAFF PHYSICIAN] - 1-2 days
--- NOTE | 2020-04-29 14:15 | US ---
EXAMINATION TYPE: US abdomen limited DATE OF EXAM: 04/29/2020 COMPARISON: CT 03/18/2020 CLINICAL HISTORY: 64-year-old female mid abdominal pain. Patient had hernia surgery in February 2020, abd ominal pain TECHNIQUE: Targeted ultrasound examination along the supraumbilical, middle, and infraumbilical regio n at the site of patient's pain. FINDINGS: Fur Joiner notes: At the area of pain, superior to the patient's umbilicus, there are multiple anech oic areas visualized along the scar line is seen to be located in the subcutaneous adipose layer. The se span over 4.8 cm with individual cystic areas measuring up to 1.2 cm. Inferior to the patient's um bilicus, there is another cystic area visualized measuring 0.9 x 0.5 x 0.5 cm. No sizable abdominal w all hernia identified. IMPRESSION: A string of cystic area spanning approximately 5 cm along the supraumbilical region and i ndividual cysts measuring up to 1.2 cm located within the subcutaneous adipose layer. Consider small postoperative seromas. Given pain, small infective fluid locules are also within differential. Simila r 9 mm area along the infraumbilical midline. Ultrasound follow-up can be performed.
[2020-04-29] MEDS ORDERED: traMADol 50 MG STARTER PACK 3 TAB BTL PO STA (14:35)
[2020-04-29 14:46] VITALS: BP 144/89; PULSE 92; TEMP 98.3
== END 2020-04-29 14:45 | disposition home or self-care (01) ==
LOC: EC 12:09
DX: R10.84 Generalized abdominal pain (principal); G89.29 Other chronic pain; I10 Essential (primary) hypertension; K21.9 Gastro-esophageal reflux disease without esophagitis; Z79.84 Long term (current) use of oral hypoglycemic drugs; Z79.899 Other long term (current) drug therapy; Z79.82 Long term (current) use of aspirin; Z87.891 Personal history of nicotine dependence; Z90.89 Acquired absence of other organs; Z90.49 Acquired absence of other specified parts of digestive tract; Z86.73 Personal history of transient ischemic attack (TIA), and cerebral infarction without residual deficits
CPT/HCPCS: 76705; 99284; 96372; J2270

== ENCOUNTER 2020-05-10 14:00 | Emergency (ER) | payer BC ==
[2020-05-10 14:16] VITALS: RESP 16; TEMP 99.2
[2020-05-10] MEDS ORDERED: SODIUM CHLORIDE 0.9% 1,000 ML IV STA (14:31)
[2020-05-10] MEDS ORDERED: HYDROmorphone 1 MG/ML 1 ML SYRINGE IVP STA ×2 (14:36→17:04)
--- NOTE | 2020-05-10 14:50 | ED ---
Abdominal Pain HPI - General Chief Complaint: Abdominal Pain Stated Complaint: Abd Pain Time Seen by Provider: 05/10/20 14:17 Source: patient Mode of arrival: wheelchair Limitations: no limitations - History of Present Illness Initial Comments: Patient is 64-year-old male presenting to the emergency department with a chief complaint of abdominal pain. Patient states in February she had a hiatal hernia repair and afterwards developed and intraperitoneal bleed where she had to be transferred out of this hospital to another facility. Patient states afterwards she was discharged to medical rehab facility where she was able to recover. Patient states that she continues to have pain at the hernia site. Patient states she has been very multiple times in the ED for postsurgical pain with no acute findings. Patient reports she takes oxycodone and she finished taking them today with no improvement in symptoms. She denies any night sweats or chills. Denies hematuria, hematochezia or melena. Denies any hemoptysis or hematemesis. Denies night sweats fevers or chills. Denies any nausea vomiting diarrhea. Denies chest pain or shortness of breath. - Related Data Home Medications Medication Instructions Recorded Confirmed Aspirin [Children's Aspirin] 81 mg PO DAILY@0800 03/18/20 03/18/20 Atorvastatin [Lipitor] 40 mg PO HS@199903/18/20 03/18/20 Gabapentin [Neurontin] 100 mg PO TID@0800,1400,199903/18/20 03/18/20 Pantoprazole Sodium [Protonix] 40 mg PO DAILY@0803/18/20 03/18/20 Sodium Bicarbonate Tab 650 mg PO BID@0800,199903/18/20 03/18/20 Sodium Chloride [Saline Nasal 1 spray EA NOSTRIL Q4H PRN 03/18/20 03/18/20 [place]] Ticagrelor [Brilinta] 90 mg PO BID@0800,199903/18/20 03/18/20 metFORMIN HCL [Glucophage] 500 mg PO DAILY@0800 03/18/20 03/18/20 methocarbamoL [Robaxin] 750 mg PO TID@0800,1200,1800 03/18/20 03/18/20 oxyCODONE HCL [OxyCONTIN] 10 mg PO Q4H PRN 07/16/20 07/16/20 Previous Rx's Medication Instructions Recorded Cephalexin [Keflex] 500 mg PO Q6HR 7 Days #28 cap 04/27/20 Allergies Allergy/AdvReac Type Severity Reaction Status Date / Time No Known Allergies Allergy Verified 05/10/20 14:16 Review of Systems ROS Statement: Those systems with pertinent positive or pertinent negative responses have been documented in the HPI. ROS Other: All systems not noted in ROS Statement are negative. 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/hx fx l2, hx anemia History of Any Multi-Drug Resistant Organisms: None Reported Past Surgical History: Appendectomy, Back Surgery, Cholecystectomy, Orthopedic Surgery, Tonsillectomy Additional Past Surgical History / Comment(s): Pancreatic stents-since removed, 6 back surgeries with 2 fusions, right oophorectomy due to ectopic , EGD/colonoscopy, right leg alice inserted d/t fracture, Past Anesthesia/Blood Transfusion Reactions: No Reported Reaction Additional Past Anesthesia/Blood Transfusion Reaction / Comment(s): DIFF IV STARTS, Pt has received blood in past without reaction. Past Psychological History: No Psychological Hx Reported Smoking Status: Former smoker Past Alcohol Use History: None Reported Past Drug Use History: None Reported - Past Family History Father Family Medical History: Cancer Mother Family Medical History: Cancer, CVA/TIA Additional Family Medical History / Comment(s): breast and colon cancer. General Exam Limitations: no limitations General appearance: alert, in no apparent distress Head exam: Present: atraumatic, normocephalic, normal inspection Eye exam: Present: normal appearance, PERRL, EOMI Pupils: Present: normal accommodation ENT exam: Present: normal exam, normal oropharynx, mucous membranes moist, TM's normal bilaterally, normal external ear exam Neck exam: Present: normal inspection, full ROM. Absent: tenderness Respiratory exam: Present: normal lung sounds bilaterally. Absent: respiratory distress, wheezes, rales Cardiovascular Exam: Present: regular rate, normal rhythm, normal heart sounds GI/Abdominal exam: Present: soft, tenderness (Diffuse abdominal pain. Nonacute abdomen. No guarding.). Absent: distended, guarding, rebound, rigid Extremities exam: Present: normal inspection, full ROM. Absent: tenderness Back exam: Present: normal inspection, full ROM. Absent: tenderness, CVA tenderness (R), CVA tenderness (L) Neurological exam: Present: alert, oriented X3 Psychiatric exam: Present: normal affect, normal mood Skin exam: Present: warm, dry, intact, normal color Course Vital Signs 05/10/20 05/10/20 05/10/20 14:14 16:53 17:15 Temperature 99.2 F Pulse Rate 109 H 85 94 Respiratory 16 16 16 Rate Blood Pressure 147/92 155/97 O2 Sat by Pulse 98 99 95 Oximetry 05/10/20 18:59 Temperature Pulse Rate 92 Respiratory 16 Rate Blood Pressure 170/88 O2 Sat by Pulse 98 Oximetry Medical Decision Making - Medical Decision Making Patient is 64-year-old female presenting to the emergency department with the chief complaint abdominal pain. Patient has had hiatal hernia repair and has had abdominal pain since. Patient comes to the ED quite frequently requesting symptomatic control. Case is very similar today. KUB shows a generalized ileus or enteritis. Clinically this will correlate considering she has mild diffuse tenderness with no focal tenderness. EKG showed QT prolongation at 520. Initial potassium levels were obtained showing high levels, concern for hemolysis of the blood sample. Repeat showed hypokalemia. Oral potassium was started. The final repeat of the potassium was 3.4. Magnesium was within normal limits. Lactic acid and initial troponin is within normal limits. Patient was given IV fluids, antiemetics and analgesia. On reevaluation, patient reports improvement in symptoms and she requests to go home. Patient discharged with Tylenol 3 starter pack. Strict return parameters were thoroughly discussed the patient was understanding and agreeable. Case discussed with physician. - Lab Data Result diagrams: 05/10/20 15:58 05/10/20 17:45 Lab Results 05/10/20 05/10/20 05/10/20 Range/Units 14:39 14:39 14:39 WBC (3.8-10.6) k/uL RBC (3.80-5.40) m/uL Hgb (11.4-16.0) gm/dL Hct (34.0-46.0) % MCV (80.0-100.0) fL MCH (25.0-35.0) pg MCHC (31.0-37.0) g/dL RDW (11.5-15.5) % Plt Count (150-450) k/uL Neutrophils % % Lymphocytes % % Monocytes % % Eosinophils % % Basophils % % Neutrophils # (1.3-7.7) k/uL Lymphocytes # (1.0-4.8) k/uL Monocytes # (0-1.0) k/uL Eosinophils # (0-0.7) k/uL Basophils # (0-0.2) k/uL Anisocytosis Sodium 135 L (137-145) mmol/L Potassium 5.4 H 3.2 L (3.5-5.1) mmol/L Chloride 109 H (98-107) mmol/L Carbon Dioxide 17 L (22-30) mmol/L Anion Gap 9 mmol/L BUN 3 L (7-17) mg/dL Creatinine 0.44 L (0.52-1.04) mg/dL Est GFR (CKD-EPI)AfAm >90 (>60 ml/min/1.73 sqM) Est GFR (CKD-EPI)NonAf >90 (>60 ml/min/1.73 sqM) Glucose 122 H (74-99) mg/dL Plasma Lactic Acid Derek (0.7-2.0) mmol/L Calcium 8.7 (8.4-10.2) mg/dL Magnesium (1.6-2.3) mg/dL Total Bilirubin 0.9 (0.2-1.3) mg/dL AST 35 (14-36) U/L ALT 13 (4-34) U/L Alkaline Phosphatase 81 (38-126) U/L Troponin I (0.000-0.034) ng/mL Total Protein 7.0 (6.3-8.2) g/dL Albumin 3.7 (3.5-5.0) g/dL Urine Color Yellow Urine Appearance Clear (Clear) Urine pH 6.0 (5.0-8.0) Ur Specific [place] 1.020 (1.001-1.035) Urine Protein Trace H (Negative) Urine Glucose (UA) Negative (Negative) Urine Ketones 1+ H (Negative) Urine Blood Small H (Negative) Urine Nitrite Negative (Negative) Urine Bilirubin Negative (Negative) Urine Urobilinogen <2.0 (<2.0) mg/dL Ur Leukocyte Esterase Negative (Negative) Urine RBC 4 (0-5) /hpf Urine WBC 1 (0-5) /hpf Ur Squamous Epith Cells 2 (0-4) /hpf Urine Bacteria Occasional H (None) /hpf Hyaline Casts 4 H (0-2) /lpf Urine Mucus Occasional H (None) /hpf 05/10/20 05/10/20 05/10/20 Range/Units 14:39 15:58 16:33 WBC 5.5 (3.8-10.6) k/uL RBC 4.27 (3.80-5.40) m/uL Hgb 11.3 L (11.4-16.0) gm/dL Hct 36.1 (34.0-46.0) % MCV 84.6 (80.0-100.0) fL MCH 26.5 (25.0-35.0) pg MCHC 31.3 (31.0-37.0) g/dL RDW 16.7 H (11.5-15.5) % Plt Count 404 (150-450) k/uL Neutrophils % 54 % Lymphocytes % 36 % Monocytes % 6 % Eosinophils % 2 % Basophils % 0 % Neutrophils # 3.0 (1.3-7.7) k/uL Lymphocytes # 2.0 (1.0-4.8) k/uL Monocytes # 0.3 (0-1.0) k/uL Eosinophils # 0.1 (0-0.7) k/uL Basophils # 0.0 (0-0.2) k/uL Anisocytosis Slight Sodium (137-145) mmol/L Potassium (3.5-5.1) mmol/L Chloride (98-107) mmol/L Carbon Dioxide (22-30) mmol/L Anion Gap mmol/L BUN (7-17) mg/dL Creatinine (0.52-1.04) mg/dL Est GFR (CKD-EPI)AfAm (>60 ml/min/1.73 sqM) Est GFR (CKD-EPI)NonAf (>60 ml/min/1.73 sqM) Glucose (74-99) mg/dL Plasma Lactic Acid Derek 1.2 (0.7-2.0) mmol/L Calcium (8.4-10.2) mg/dL Magnesium (1.6-2.3) mg/dL Total Bilirubin (0.2-1.3) mg/dL AST (14-36) U/L ALT (4-34) U/L Alkaline Phosphatase (38-126) U/L Troponin I <0.012 (0.000-0.034) ng/mL Total Protein (6.3-8.2) g/dL Albumin (3.5-5.0) g/dL Urine Color Urine Appearance (Clear) Urine pH (5.0-8.0) Ur Specific [place] (1.001-1.035) Urine Protein (Negative) Urine Glucose (UA) (Negative) Urine Ketones (Negative) Urine Blood (Negative) Urine Nitrite (Negative) Urine Bilirubin (Negative) Urine Urobilinogen (<2.0) mg/dL Ur Leukocyte Esterase (Negative) Urine RBC (0-5) /hpf Urine WBC (0-5) /hpf Ur Squamous Epith Cells (0-4) /hpf Urine Bacteria (None) /hpf Hyaline Casts (0-2) /lpf Urine Mucus (None) /hpf 05/10/20 Range/Units 17:45 WBC (3.8-10.6) k/uL RBC (3.80-5.40) m/uL Hgb (11.4-16.0) gm/dL Hct (34.0-46.0) % MCV (80.0-100.0) fL MCH (25.0-35.0) pg MCHC (31.0-37.0) g/dL RDW (11.5-15.5) % Plt Count (150-450) k/uL Neutrophils % % Lymphocytes % % Monocytes % % Eosinophils % % Basophils % % Neutrophils # (1.3-7.7) k/uL Lymphocytes # (1.0-4.8) k/uL Monocytes # (0-1.0) k/uL Eosinophils # (0-0.7) k/uL Basophils # (0-0.2) k/uL Anisocytosis Sodium 138 (137-145) mmol/L Potassium 3.4 L (3.5-5.1) mmol/L Chloride 109 H (98-107) mmol/L Carbon Dioxide 21 L (22-30) mmol/L Anion Gap 8 mmol/L BUN 3 L (7-17) mg/dL Creatinine 0.49 L (0.52-1.04) mg/dL Est GFR (CKD-EPI)AfAm >90 (>60 ml/min/1.73 sqM) Est GFR (CKD-EPI)NonAf >90 (>60 ml/min/1.73 sqM) Glucose 105 H (74-99) mg/dL Plasma Lactic Acid Derek (0.7-2.0) mmol/L Calcium 8.5 (8.4-10.2) mg/dL Magnesium 1.8 (1.6-2.3) mg/dL Total Bilirubin (0.2-1.3) mg/dL AST (14-36) U/L ALT (4-34) U/L Alkaline Phosphatase (38-126) U/L Troponin I (0.000-0.034) ng/mL Total Protein (6.3-8.2) g/dL Albumin (3.5-5.0) g/dL Urine Color Urine Appearance (Clear) Urine pH (5.0-8.0) Ur Specific [place] (1.001-1.035) Urine Protein (Negative) Urine Glucose (UA) (Negative) Urine Ketones (Negative) Urine Blood (Negative) Urine Nitrite (Negative) Urine Bilirubin (Negative) Urine Urobilinogen (<2.0) mg/dL Ur Leukocyte Esterase (Negative) Urine RBC (0-5) /hpf Urine WBC (0-5) /hpf Ur Squamous Epith Cells (0-4) /hpf Urine Bacteria (None) /hpf Hyaline Casts (0-2) /lpf Urine Mucus (None) /hpf - EKG Data EKG Comments: Sinus rhythm with prolonged QT. Ventricular rate 88, AL 160, QRS 62, QTc 520. Disposition Clinical Impression: Abdominal pain, Enteritis Disposition: HOME SELF-CARE Condition: Stable Instructions (If sedation given, give patient instructions): Abdominal Pain (ED) Additional Instructions: Follow-up with the primary care physician. Return to emergency department if symptoms worsen. Is patient prescribed a controlled substance at d/c from ED?: No Referrals: Shameka Llanos NPC [Primary Care Provider] - 1-2 days Time of Disposition: 18:57
[2020-05-10 15:04] LABS: ALT 13 U/L (4-34); AST 35 U/L (14-36); African American GFR (CKD) >90 (>60 ml/min/1.73 sqM); Albumin 3.7 g/dL (3.5-5.0); Alkaline Phosphatase 81 U/L (38-126); Anion Gap 9 mmol/L; Blood Urea Nitrogen 3 mg/dL (7-17); Calcium 8.7 mg/dL (8.4-10.2); Carbon Dioxide 17 mmol/L (22-30); Chloride 109 mmol/L (98-107); Glucose 122 mg/dL (74-99); Non-African American GFR(CKD) >90 (>60 ml/min/1.73 sqM); Sodium 135 mmol/L (137-145); Total Bilirubin 0.9 mg/dL (0.2-1.3)
[2020-05-10 15:12] LABS: Potassium 5.4 mmol/L (3.5-5.1)
--- NOTE | 2020-05-10 15:56 | XR ---
EXAMINATION TYPE: XR KUB DATE OF EXAM: 05/10/2020 Comparison: 02/13/2020 Clinical History: 64-year-old female with abdominal pain Findings: Posterior and interbody lumbar fusion hardware noted. Cholecystectomy clips. There are some scattered colonic air bubble prominent small bowel loops also noted measuring up to 3.3 cm. Possible bladder c alculus measuring 1 cm in the right-sided pelvis. Impression: Nonspecific bowel gas pattern with scattered colonic and small bowel air. A few small bowel loops are mildly dilated up to 3.3 cm. Consider generalized ileus or enteritis. Follow-up may be helpful.
[2020-05-10 16:04] LABS: Anisocytosis Slight; Basophils % (A) 0 %; Eosinophils # (A) 0.1 k/uL (0-0.7); Eosinophils % (A) 2 %; HCT 36.1 % (34.0-46.0); HGB 11.3 gm/dL (11.4-16.0); Lymphocytes % (A) 36 %; MCH 26.5 pg (25.0-35.0); MCHC 31.3 g/dL (31.0-37.0); MCV 84.6 fL (80.0-100.0); Mean Platelet Volume 6.8; Monocytes # (A) 0.3 k/uL (0-1.0); Monocytes % (A) 6 %; Neutrophils % (A) 54 %; Platelet Count 404 k/uL (150-450); RBC 4.27 m/uL (3.80-5.40); RDW 16.7 % (11.5-15.5); WBC 5.5 k/uL (3.8-10.6)
[2020-05-10 16:58] LABS: Appearance,Urine Clear (Clear); Bacteria,Urine Occasional /hpf; Bilirubin,Urine Negative (Negative); Blood,Urine Small (Negative); Color,Urine Yellow; Glucose,Urine (UA) Negative (Negative); Hyaline Casts,Urine 4 /lpf (0-2); Ketones,Urine 1+ (Negative); Leukocyte Esterase,Urine Negative (Negative); Mucus,Urine Occasional /hpf; Nitrite,Urine Negative (Negative); Protein,Urine Trace (Negative); RBC,Urine 4 /hpf (0-5); Squamous Epithelial Cell,Urine 2 /hpf (0-4); Urobilinogen,Urine <2.0 mg/dL (<2.0); WBC,Urine 1 /hpf (0-5)
[2020-05-10] MEDS ORDERED: POTASSIUM CHLORIDE ER 20 MEQ TAB.ER PO STA (17:04)
[2020-05-10 18:12] LABS: African American GFR (CKD) >90 (>60 ml/min/1.73 sqM); Anion Gap 8 mmol/L; Blood Urea Nitrogen 3 mg/dL (7-17); Calcium 8.5 mg/dL (8.4-10.2); Carbon Dioxide 21 mmol/L (22-30); Chloride 109 mmol/L (98-107); Glucose 105 mg/dL (74-99); Magnesium 1.8 mg/dL (1.6-2.3); Non-African American GFR(CKD) >90 (>60 ml/min/1.73 sqM); Potassium 3.4 mmol/L (3.5-5.1); Sodium 138 mmol/L (137-145)
[2020-05-10] MEDS ORDERED: ACET/COD 300 MG/30 MG STARTER PACK 6 TAB BTL PO STA (18:56)
[2020-05-10 19:00] VITALS: BP 170/88; PULSE 92
== END 2020-05-10 18:59 | disposition home or self-care (01) ==
LOC: EC 14:00
DX: K52.9 Noninfective gastroenteritis and colitis, unspecified (principal); E87.6 Hypokalemia; K21.9 Gastro-esophageal reflux disease without esophagitis; I10 Essential (primary) hypertension; Z79.84 Long term (current) use of oral hypoglycemic drugs; Z79.82 Long term (current) use of aspirin; Z79.899 Other long term (current) drug therapy; Z86.73 Personal history of transient ischemic attack (TIA), and cerebral infarction without residual deficits; Z90.49 Acquired absence of other specified parts of digestive tract; Z90.721 Acquired absence of ovaries, unilateral; Z87.891 Personal history of nicotine dependence
CPT/HCPCS: 36415; 93005; 80053; 80048; 83605; 83735; 84132; 84484; 85025; 81001; 74018; 99284; 96374; 96376; 96361 ×2; J1170

== ENCOUNTER 2020-06-13 14:35 | Emergency (ER) | payer BC ==
[2020-06-13 14:42] VITALS: TEMP 99.1
[2020-06-13] MEDS ORDERED: HYDROmorphone 0.5 MG/0.5 ML SYRINGE IVP STA ×2 (14:46→17:21)
[2020-06-13] MEDS ORDERED: SODIUM CHLORIDE 0.9% 1,000 ML IV ONE (14:46)
[2020-06-13] MEDS ORDERED: SODIUM CHLORIDE 0.9% 1,000 ML IV SCH (15:00)
--- NOTE | 2020-06-13 15:31 | XR ---
EXAMINATION TYPE: XR KUB DATE OF EXAM: 06/13/2020 COMPARISON: 05/10/2020 HISTORY: Abdominal pain TECHNIQUE: Single view FINDINGS: There are a few small bowel fluid levels. There is no evidence of free air. Lung bases are clear. There is multilevel lumbar spine fusion surgery. There is no evidence of abdominal mass. There are clips from cholecystectomy. IMPRESSION: Small bowel pattern could relate to mild ileus. I do not see evidence for mechanical mitzy l obstruction. Pattern similar to old exam.
[2020-06-13 15:57] LABS: Anisocytosis Slight; Basophils # (A) 0.1 k/uL (0-0.2); Basophils % (A) 1 %; Eosinophils # (A) 0.2 k/uL (0-0.7); Eosinophils % (A) 3 %; HCT 42.2 % (34.0-46.0); HGB 13.3 gm/dL (11.4-16.0); Hypochromasia Slight; Lymphocytes # (A) 2.3 k/uL (1.0-4.8); Lymphocytes % (A) 33 %; MCH 27.7 pg (25.0-35.0); MCHC 31.6 g/dL (31.0-37.0); MCV 87.9 fL (80.0-100.0); Mean Platelet Volume 6.8; Monocytes # (A) 0.3 k/uL (0-1.0); Monocytes % (A) 4 %; Neutrophils % (A) 58 %; Platelet Count 332 k/uL (150-450); RDW 17.1 % (11.5-15.5); WBC 6.9 k/uL (3.8-10.6)
[2020-06-13 16:17] LABS: ALT 15 U/L (4-34); AST 29 U/L (14-36); African American GFR (CKD) >90 (>60 ml/min/1.73 sqM); Albumin 4.2 g/dL (3.5-5.0); Alkaline Phosphatase 74 U/L (38-126); Amylase 40 U/L (30-110); Anion Gap 7 mmol/L; Blood Urea Nitrogen 11 mg/dL (7-17); Calcium 9.7 mg/dL (8.4-10.2); Carbon Dioxide 21 mmol/L (22-30); Chloride 112 mmol/L (98-107); Glucose 115 mg/dL (74-99); Non-African American GFR(CKD) >90 (>60 ml/min/1.73 sqM); Potassium 3.7 mmol/L (3.5-5.1); Sodium 140 mmol/L (137-145); Total Bilirubin 0.3 mg/dL (0.2-1.3); Total Protein 7.3 g/dL (6.3-8.2)
[2020-06-13] MEDS ORDERED: PANTOPRAZOLE 40 MG/10 ML VIAL IVP STA (16:23)
[2020-06-13 16:45] VITALS: RESP 16
[2020-06-13 17:22] VITALS: PULSE 78
[2020-06-13 17:27] LABS: Appearance,Urine Clear (Clear); Bilirubin,Urine Negative (Negative); Blood,Urine Trace (Negative); Color,Urine Light Yellow; Glucose,Urine (UA) Negative (Negative); Ketones,Urine Negative (Negative); Leukocyte Esterase,Urine Negative (Negative); Mucus,Urine Rare /hpf; Nitrite,Urine Negative (Negative); PH, Urine 5.5 (5.0-8.0); Protein,Urine Negative (Negative); RBC,Urine 1 /hpf (0-5); Specific Gravity,Urine 1.009 (1.001-1.035); Squamous Epithelial Cell,Urine <1 /hpf (0-4); Urobilinogen,Urine <2.0 mg/dL (<2.0); WBC,Urine 1 /hpf (0-5)
--- NOTE | 2020-06-13 17:36 | CT ---
EXAMINATION TYPE: CT abdomen pelvis w con DATE OF EXAM: 06/13/2020 COMPARISON: 03/18/2020 HISTORY: Abdominal pain CT DLP: 666.2 mGycm Automated exposure control for dose reduction was used. CONTRAST: Performed with IV Contrast, patient injected with 100 mL of Isovue 300. Lung bases are clear. There is no pleural effusion. Heart size is normal. There is no pericardial eff usion. There are clips at the gastroesophageal junction. Stomach is intact. There are clips from chol ecystectomy. There is mild enlargement of the biliary tree. Common bile duct is 14 mm[address] Spleen is inta ct. There is no evidence of hepatic mass. There is diffuse pancreatic calcification consistent with c hronic pancreatitis. There is variable dilation of the pancreatic duct also consistent with chronic p ancreatitis. There is no adrenal mass. There is 1 cm cyst lateral upper pole right kidney. Kidneys show satisfacto ry contrast opacification. There is no hydronephrosis. Delayed images show normal renal excretion. Ab dominal aorta is atheromatous. There is no retroperitoneal adenopathy. Bladder distends smoothly. The re is no inguinal hernia. There is no free fluid in the pelvis. There are some small bowel fluid leve ls. There is minimal small bowel distention with fluid. Small bowel measures up to 2.6 cm. There is n o free air. There is no ascites. There is multilevel posterior fusion surgery in the lumbar spine. Th e bony pelvis is intact. Hip joints are intact. IMPRESSION: Changes of chronic pancreatitis. There is clearing of left pleural effusion compared to old exam. The re is clearing of patchy atelectasis at the lung bases compared to old exam. Pancreas appears unchang ed compared to old exam. There is chronic ectasia of the biliary tree unchanged. Changes of small bowel ileus which is improved compared to old exam.
--- NOTE | 2020-06-13 17:42 | ED ---
Abdominal Pain HPI - General Chief Complaint: Abdominal Pain Stated Complaint: NVD, Abd Pain Time Seen by Provider: 06/13/20 14:44 Source: patient Mode of arrival: ambulatory Limitations: no limitations - History of Present Illness Initial Comments: 64yo female with history of chronic pancreatitis presenting to the ER today for cc of "pancreatitis again". Patient states that she believes she is having a pancreatitis flare she states it feels identical to previous episodes. She states she struggles with chronic pancreatitis and developed epigastric pain that radiates to the back. She denies any bloody or dark stools she does state that she has had some nausea and vomiting as well as loose stools. She states she does not have a gallbladder she denies right upper quadrant pain. She denies chest pain shortness of breath or leg swelling. Patient denies hemoptysis or upper respiratory symptoms. Patient denies any jaw or arm pain. Patient denies any fevers chills or general malaise. Patient states she presented to the ER for pain control and further evaluation upon arrival patient appears well nontoxic no acute distress - Related Data Home Medications Medication Instructions Recorded Confirmed Aspirin [Children's Aspirin] 81 mg PO DAILY@0800 03/18/20 03/18/20 Atorvastatin [Lipitor] 40 mg PO HS@199903/18/20 03/18/20 Gabapentin [Neurontin] 100 mg PO TID@0800,1400,199903/18/20 03/18/20 Pantoprazole Sodium [Protonix] 40 mg PO DAILY@0800 03/18/20 03/18/20 Sodium Bicarbonate Tab 650 mg PO BID@0800,199903/18/20 03/18/20 Sodium Chloride [Saline Nasal 1 spray EA NOSTRIL Q4H PRN 03/18/20 03/18/20 [place]] Ticagrelor [Brilinta] 90 mg PO BID@0800,199903/18/20 03/18/20 metFORMIN HCL [Glucophage] 500 mg PO DAILY@0800 03/18/20 03/18/20 methocarbamoL [Robaxin] 750 mg PO TID@0800,1200,1800 03/18/20 03/18/20 oxyCODONE HCL [OxyCONTIN] 10 mg PO Q4H PRN 03/18/20 03/18/20 Previous Rx's Medication Instructions Recorded Cephalexin [Keflex] 500 mg PO Q6HR 7 Days #28 cap 04/27/20 Allergies Allergy/AdvReac Type Severity Reaction Status Date / Time No Known Allergies Allergy Verified 06/13/20 14:42 Review of Systems ROS Statement: Those systems with pertinent positive or pertinent negative responses have been documented in the HPI. ROS Other: All systems not noted in ROS Statement are negative. 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/hx fx l2, hx anemia History of Any Multi-Drug Resistant Organisms: None Reported Past Surgical History: Appendectomy, Back Surgery, Cholecystectomy, Orthopedic Surgery, Tonsillectomy Additional Past Surgical History / Comment(s): Pancreatic stents-since removed, 6 back surgeries with 2 fusions, right oophorectomy due to ectopic , EGD/colonoscopy, right leg alice inserted d/t fracture, Past Anesthesia/Blood Transfusion Reactions: No Reported Reaction Additional Past Anesthesia/Blood Transfusion Reaction / Comment(s): DIFF IV STARTS, Pt has received blood in past without reaction. Past Psychological History: No Psychological Hx Reported Smoking Status: Former smoker Past Alcohol Use History: None Reported Past Drug Use History: None Reported - Past Family History Father Family Medical History: Cancer Mother Family Medical History: Cancer, CVA/TIA Additional Family Medical History / Comment(s): breast and colon cancer. General Exam - General Exam Comments Initial Comments: General: The patient is awake and alert, in no distress Eye: +3 mm pupils are equal, round and reactive to light, extra-ocular movements are intact. No nystagmus. There is normal conjunctiva bilaterally. No signs of icterus. Ears, nose, mouth and throat: There are moist mucous membranes and no oral lesions. Neck: The neck is supple, there is no tenderness or JVD. Cardiovascular: There is a regular rate and rhythm. No murmur, rub or gallop is appreciated. Respiratory: Lungs are clear to auscultation, respirations are non-labored, breath sounds are equal. No wheezes, stridor, rales, or rhonchi. Gastrointestinal: Soft, non-distended, epigastric tenderness to palpation of the abdomen, abdomen without masses or organomegaly noted. There is no rebound or guarding present. Musculoskeletal: Normal ROM, no tenderness. Strength 5/5. Sensation intact. radial pulses equal bilaterally 2+. Neurological: A&O x 3. CN II-XII intact grossly, There are no obvious motor or sensory deficits. Coordination appears grossly intact. Speech is normal. Skin: Skin is warm and dry and no rashes or lesions are noted. Psychiatric: Cooperative, appropriate mood & affect, normal judgment. Limitations: no limitations Course Vital Signs 06/13/20 06/13/20 06/13/20 14:40 15:42 16:00 Temperature 99.1 F Pulse Rate 104 H 78 Respiratory 18 16 16 Rate Blood Pressure 153/88 157/96 O2 Sat by Pulse 100 100 Oximetry 06/13/20 06/13/20 06/13/20 17:00 18:00 18:12 Temperature 99.1 F Pulse Rate 78 78 78 Respiratory 16 16 16 Rate Blood Pressure 148/92 148/92 O2 Sat by Pulse 100 100 100 Oximetry Medical Decision Making - Medical Decision Making labs stable. lipase WNL. chronic pancreatitis on CT. No acute findings. pain improved, no vomiting in ER. Patient is agreeable to discharge with outpatietn pcp and GI f/u. patient case discussed with Dr. Artis who is agreeable to c are plan. - Lab Data Result diagrams: 06/13/20 15:26 06/13/20 15:26 Lab Results 06/13/20 06/13/20 06/13/20 Range/Units 15:26 15:26 17:16 WBC 6.9 (3.8-10.6) k/uL RBC 4.80 (3.80-5.40) m/uL Hgb 13.3 (11.4-16.0) gm/dL Hct 42.2 (34.0-46.0) % MCV 87.9 (80.0-100.0) fL MCH 27.7 (25.0-35.0) pg MCHC 31.6 (31.0-37.0) g/dL RDW 17.1 H (11.5-15.5) % Plt Count 332 (150-450) k/uL Neutrophils % 58 % Lymphocytes % 33 % Monocytes % 4 % Eosinophils % 3 % Basophils % 1 % Neutrophils # 4.0 (1.3-7.7) k/uL Lymphocytes # 2.3 (1.0-4.8) k/uL Monocytes # 0.3 (0-1.0) k/uL Eosinophils # 0.2 (0-0.7) k/uL Basophils # 0.1 (0-0.2) k/uL Hypochromasia Slight Anisocytosis Slight Sodium 140 (137-145) mmol/L Potassium 3.7 (3.5-5.1) mmol/L Chloride 112 H (98-107) mmol/L Carbon Dioxide 21 L (22-30) mmol/L Anion Gap 7 mmol/L BUN 11 (7-17) mg/dL Creatinine 0.68 (0.52-1.04) mg/dL Est GFR (CKD-EPI)AfAm >90 (>60 ml/min/1.73 sqM) Est GFR (CKD-EPI)NonAf >90 (>60 ml/min/1.73 sqM) Glucose 115 H (74-99) mg/dL Calcium 9.7 (8.4-10.2) mg/dL Total Bilirubin 0.3 (0.2-1.3) mg/dL AST 29 (14-36) U/L ALT 15 (4-34) U/L Alkaline Phosphatase 74 (38-126) U/L Total Protein 7.3 (6.3-8.2) g/dL Albumin 4.2 (3.5-5.0) g/dL Amylase 40 (30-110) U/L Lipase 152 (23-300) U/L Urine Color Light Yellow Urine Appearance Clear (Clear) Urine pH 5.5 (5.0-8.0) Ur Specific [place] 1.009 (1.001-1.035) Urine Protein Negative (Negative) Urine Glucose (UA) Negative (Negative) Urine Ketones Negative (Negative) Urine Blood Trace H (Negative) Urine Nitrite Negative (Negative) Urine Bilirubin Negative (Negative) Urine Urobilinogen <2.0 (<2.0) mg/dL Ur Leukocyte Esterase Negative (Negative) Urine RBC 1 (0-5) /hpf Urine WBC 1 (0-5) /hpf Ur Squamous Epith Cells <1 (0-4) /hpf Urine Mucus Rare H (None) /hpf Disposition Clinical Impression: Chronic pancreatitis, Nausea & vomiting, Epigastric pain Disposition: HOME SELF-CARE Condition: Good Instructions (If sedation given, give patient instructions): Pancreatitis (ED) Additional Instructions: Please use medication as discussed. Please follow-up with family doctor in the next 2 days. Please return to emergency room if the symptoms increase or worsen or for any other concerns. Is patient prescribed a controlled substance at d/c from ED?: No Referrals: None,Stated [Primary Care Provider] - 1-2 days Time of Disposition: 17:42
[2020-06-13] MEDS ORDERED: ACET/COD 300 MG/30 MG STARTER PACK 6 TAB BTL PO STA (17:51)
[2020-06-13 18:10] VITALS: BP 148/92
== END 2020-06-13 18:15 | disposition home or self-care (01) ==
LOC: EC 14:35
DX: K86.1 Other chronic pancreatitis (principal); I10 Essential (primary) hypertension; K21.9 Gastro-esophageal reflux disease without esophagitis; M19.90 Unspecified osteoarthritis, unspecified site; Z79.82 Long term (current) use of aspirin; Z79.899 Other long term (current) drug therapy; Z87.891 Personal history of nicotine dependence; Z86.73 Personal history of transient ischemic attack (TIA), and cerebral infarction without residual deficits; Z86.69 Personal history of other diseases of the nervous system and sense organs
CPT/HCPCS: 36415; 93005; 80053; 82150; 83690; 85025; 81001; 74018; 74177; 99285; 96374; 96375; 96376; 96361 ×3; C9113; J1170; Q9967

== ENCOUNTER 2020-06-14 15:24 | Emergency (ER) | payer BC ==
[2020-06-14 15:32] VITALS: TEMP 99.1
[2020-06-14] MEDS ORDERED: ONDANSETRON 4 MG/2 ML VIAL IVP STA (16:09)
[2020-06-14] MEDS ORDERED: SODIUM CHLORIDE 0.9% 1,000 ML IV STA (16:09)
[2020-06-14] MEDS ORDERED: HYDROmorphone 0.5 MG/0.5 ML SYRINGE IVP STA (16:42)
--- NOTE | 2020-06-14 16:45 | ED ---
General Adult HPI - General Chief complaint: Abdominal Pain Stated complaint: recheck - pancreatitis Time Seen by Provider: 06/14/20 16:08 Source: patient Mode of arrival: ambulatory Limitations: no limitations - History of Present Illness Initial comments: Dictation was produced using [employer] dictation software. please excuse any grammatical, word or spelling errors. This patient was cared for during a federal and state declared state of emerge ncy secondary to Covid 19 Chief Complaint: 64-year-old female past medical history chronic pancreatitis presents with abdominal pain. History of Present Illness: Patient is 64-year-old female she presents today with abdominal pain. Patient has history of chronic pancreatitis. She was here yesterday for the same complaint and discharged. Patient is well-known to emergency department for multiple visitations for the same complaint. Patient states she has history of chronic pancreatitis and not from alcohol intoxication but from gallstones several years ago. She does feel nauseated however denies any vomiting. No diarrhea. facial symptoms. Yesterday she did have a computed tomography scan of the abdomen and pelvis that was found to be stable from her baseline. She locates the pain to her epigastric and periumbilical area. Denies any radiation of symptoms. She states the pain is moderate. The ROS documented in this emergency department record has been reviewed and c onfirmed by me. Those systems with pertinent positive or negative responses have been documented in the HPI. All other systems are other negative and/or noncontributory. PHYSICAL EXAM: General Impression: Alert and oriented x3, not in acute distress HEENT: Normocephalic atraumatic, extra-ocular movements intact, pupils equal and reactive to light bilaterally, mucous membranes moist. Cardiovascular: Heart regular rate and rhythm Chest: Able to complete full sentences, no retractions, no tachypnea Abdomen: abdomen soft, mild tenderness to palpation, non-distended, no organomegaly Musculoskeletal: Pulses present and equal in all extremities, no peripheral edema Motor: no focal deficits noted Neurological: CN II-XII grossly intact, no focal motor or sensory deficits noted Skin: Intact with no visualized rashes Psych: Normal affect and mood ED course: 64-year-old female who is known for frequent visitations to emergency department for complaint of abdominal pain presents today with abdominal pain. Patient reports history of chronic pancreatitis. She feels that her pancreas is acting up. Patient was seen here yesterday where she had stable labs and stable computed tomography scan of the abdomen and pelvis. Signs are stable. Patient's well-appearing at bedside. Her physical examination is benign. Laboratory evaluation obtained. CBC, metabolic panel is unremarkable. Patient reevaluated bedside found to be stable medical condition. No indication for repeat CT at that at this time considering patient has benign physical exam and negative CT of abdomen and pelvis yesterday. - Related Data Home Medications Medication Instructions Recorded Confirmed Aspirin [Children's Aspirin] 81 mg PO DAILY@0800 03/18/20 03/18/20 Atorvastatin [Lipitor] 40 mg PO HS@199903/18/20 03/18/20 Gabapentin [Neurontin] 100 mg PO TID@0800,1400,199903/18/20 03/18/20 Pantoprazole Sodium [Protonix] 40 mg PO DAILY@0800 03/18/20 03/18/20 Sodium Bicarbonate Tab 650 mg PO BID@0800,199903/18/20 03/18/20 Sodium Chloride [Saline Nasal 1 spray EA NOSTRIL Q4H PRN 03/18/20 03/18/20 Reading] Ticagrelor [Brilinta] 90 mg PO BID@0800,199903/18/20 03/18/20 metFORMIN HCL [Glucophage] 500 mg PO DAILY@0800 03/18/20 03/18/20 methocarbamoL [Robaxin] 750 mg PO TID@0800,1200,1800 03/18/20 03/18/20 oxyCODONE HCL [OxyCONTIN] 10 mg PO Q4H PRN 03/18/20 03/18/20 Previous Rx's Medication Instructions Recorded Cephalexin [Keflex] 500 mg PO Q6HR 7 Days #28 cap 04/27/20 Allergies Allergy/AdvReac Type Severity Reaction Status Date / Time No Known Allergies Allergy Verified 06/14/20 15:32 Review of Systems ROS Statement: Those systems with pertinent positive or pertinent negative responses have been documented in the HPI. ROS Other: All systems not noted in ROS Statement are negative. 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/hx fx l2, hx anemia History of Any Multi-Drug Resistant Organisms: None Reported Past Surgical History: Appendectomy, Back Surgery, Cholecystectomy, Orthopedic Surgery, Tonsillectomy Additional Past Surgical History / Comment(s): Pancreatic stents-since removed, 6 back surgeries with 2 fusions, right oophorectomy due to ectopic , EGD/colonoscopy, right leg alice inserted d/t fracture, Past Anesthesia/Blood Transfusion Reactions: No Reported Reaction Additional Past Anesthesia/Blood Transfusion Reaction / Comment(s): DIFF IV STARTS, Pt has received blood in past without reaction. Past Psychological History: No Psychological Hx Reported Smoking Status: Former smoker Past Alcohol Use History: None Reported Past Drug Use History: None Reported - Past Family History Father Family Medical History: Cancer Mother Family Medical History: Cancer, CVA/TIA Additional Family Medical History / Comment(s): breast and colon cancer. General Exam Limitations: no limitations Course Vital Signs 06/14/20 15:30 Temperature 99.1 F Pulse Rate 90 Respiratory 18 Rate Blood Pressure 142/80 O2 Sat by Pulse 98 Oximetry Medical Decision Making - Lab Data Result diagrams: 06/14/20 17:25 06/14/20 17:25 Lab Results 06/14/20 06/14/20 Range/Units 17:25 17:25 WBC 7.9 (3.8-10.6) k/uL RBC 4.30 (3.80-5.40) m/uL Hgb 11.9 (11.4-16.0) gm/dL Hct 38.0 (34.0-46.0) % MCV 88.5 (80.0-100.0) fL MCH 27.8 (25.0-35.0) pg MCHC 31.4 (31.0-37.0) g/dL RDW 17.3 H (11.5-15.5) % Plt Count 327 (150-450) k/uL Neutrophils % 52 % Lymphocytes % 35 % Monocytes % 6 % Eosinophils % 5 % Basophils % 1 % Neutrophils # 4.1 (1.3-7.7) k/uL Lymphocytes # 2.8 (1.0-4.8) k/uL Monocytes # 0.5 (0-1.0) k/uL Eosinophils # 0.4 (0-0.7) k/uL Basophils # 0.1 (0-0.2) k/uL Hypochromasia Slight Anisocytosis Slight Sodium 143 (137-145) mmol/L Potassium 3.9 (3.5-5.1) mmol/L Chloride 110 H (98-107) mmol/L Carbon Dioxide 23 (22-30) mmol/L Anion Gap 10 mmol/L BUN 11 (7-17) mg/dL Creatinine 0.90 (0.52-1.04) mg/dL Est GFR (CKD-EPI)AfAm 79 (>60 ml/min/1.73 sqM) Est GFR (CKD-EPI)NonAf 68 (>60 ml/min/1.73 sqM) Glucose 157 H (74-99) mg/dL Calcium 9.1 (8.4-10.2) mg/dL Total Bilirubin 0.2 (0.2-1.3) mg/dL Conjugated Bilirubin 0.0 (0.0-0.3) mg/dL Unconjugated Bilirubin 0.0 (0.0-1.1) mg/dL Delta Bilirubin 0.2 (0.0-0.2) mg/dL AST 36 (14-36) U/L ALT 18 (4-34) U/L Alkaline Phosphatase 92 (38-126) U/L Total Protein 6.7 (6.3-8.2) g/dL Albumin 4.0 (3.5-5.0) g/dL Lipase 239 (23-300) U/L Disposition Clinical Impression: Abdominal pain Disposition: HOME SELF-CARE Condition: Good Instructions (If sedation given, give patient instructions): Abdominal Pain (ED) Is patient prescribed a controlled substance at d/c from ED?: No Referrals: Toi Chin [Primary Care Provider] - 1-2 days Time of Disposition: 17:52
[2020-06-14] MEDS ORDERED: ONDANSETRON ODT 4 MG TAB PO STA (17:05)
[2020-06-14] MEDS ORDERED: HYDROmorphone 0.5 MG/0.5 ML SYRINGE IM STA (17:06)
[2020-06-14 17:33] LABS: Anisocytosis Slight; Basophils # (A) 0.1 k/uL (0-0.2); Basophils % (A) 1 %; Eosinophils # (A) 0.4 k/uL (0-0.7); Eosinophils % (A) 5 %; HGB 11.9 gm/dL (11.4-16.0); Hypochromasia Slight; Lymphocytes # (A) 2.8 k/uL (1.0-4.8); Lymphocytes % (A) 35 %; MCH 27.8 pg (25.0-35.0); MCHC 31.4 g/dL (31.0-37.0); MCV 88.5 fL (80.0-100.0); Monocytes # (A) 0.5 k/uL (0-1.0); Monocytes % (A) 6 %; Neutrophils # (A) 4.1 k/uL (1.3-7.7); Neutrophils % (A) 52 %; Platelet Count 327 k/uL (150-450); RDW 17.3 % (11.5-15.5); WBC 7.9 k/uL (3.8-10.6)
[2020-06-14 17:49] LABS: Potassium 3.9 mmol/L (3.5-5.1); Total Protein 6.7 g/dL (6.3-8.2)
[2020-06-14 17:50] LABS: Bilirubin, Delta 0.2 mg/dL (0.0-0.2); Calcium 9.1 mg/dL (8.4-10.2); Total Bilirubin 0.2 mg/dL (0.2-1.3)
--- NOTE | 2020-06-14 17:59 | ED ---
Medical Decision Making - Lab Data Result diagrams: 06/14/20 17:25 06/14/20 17:25 Lab Results 06/14/20 06/14/20 Range/Units 17:25 17:25 WBC 7.9 (3.8-10.6) k/uL RBC 4.30 (3.80-5.40) m/uL Hgb 11.9 (11.4-16.0) gm/dL Hct 38.0 (34.0-46.0) % MCV 88.5 (80.0-100.0) fL MCH 27.8 (25.0-35.0) pg MCHC 31.4 (31.0-37.0) g/dL RDW 17.3 H (11.5-15.5) % Plt Count 327 (150-450) k/uL Neutrophils % 52 % Lymphocytes % 35 % Monocytes % 6 % Eosinophils % 5 % Basophils % 1 % Neutrophils # 4.1 (1.3-7.7) k/uL Lymphocytes # 2.8 (1.0-4.8) k/uL Monocytes # 0.5 (0-1.0) k/uL Eosinophils # 0.4 (0-0.7) k/uL Basophils # 0.1 (0-0.2) k/uL Hypochromasia Slight Anisocytosis Slight Sodium 143 (137-145) mmol/L Potassium 3.9 (3.5-5.1) mmol/L Chloride 110 H (98-107) mmol/L Carbon Dioxide 23 (22-30) mmol/L Anion Gap 10 mmol/L BUN 11 (7-17) mg/dL Creatinine 0.90 (0.52-1.04) mg/dL Est GFR (CKD-EPI)AfAm 79 (>60 ml/min/1.73 sqM) Est GFR (CKD-EPI)NonAf 68 (>60 ml/min/1.73 sqM) Glucose 157 H (74-99) mg/dL Calcium 9.1 (8.4-10.2) mg/dL Total Bilirubin 0.2 (0.2-1.3) mg/dL Conjugated Bilirubin 0.0 (0.0-0.3) mg/dL Unconjugated Bilirubin 0.0 (0.0-1.1) mg/dL Delta Bilirubin 0.2 (0.0-0.2) mg/dL AST 36 (14-36) U/L ALT 18 (4-34) U/L Alkaline Phosphatase 92 (38-126) U/L Total Protein 6.7 (6.3-8.2) g/dL Albumin 4.0 (3.5-5.0) g/dL Lipase 239 (23-300) U/L Disposition Clinical Impression: Abdominal pain Disposition: HOME SELF-CARE Condition: Good Instructions (If sedation given, give patient instructions): Abdominal Pain (ED) Prescriptions: HYDROcodone/APAP 5-325MG [[place] 5-325] 1 tab PO Q6HR PRN 3 Days #12 tab PRN Reason: Severe Pain Is patient prescribed a controlled substance at d/c from ED?: No Referrals: Toi Chin [Primary Care Provider] - 1-2 days Boaz Simpson MD [STAFF PHYSICIAN] - 1-2 days Time of Disposition: 17:58
[2020-06-14 18:01] VITALS: BP 161/101; PULSE 80; RESP 16
== END 2020-06-14 18:05 | disposition home or self-care (01) ==
LOC: EC 15:24
DX: R10.9 Unspecified abdominal pain (principal); I10 Essential (primary) hypertension; K21.9 Gastro-esophageal reflux disease without esophagitis; Z79.82 Long term (current) use of aspirin; Z79.899 Other long term (current) drug therapy; Z79.84 Long term (current) use of oral hypoglycemic drugs; Z86.73 Personal history of transient ischemic attack (TIA), and cerebral infarction without residual deficits; Z90.721 Acquired absence of ovaries, unilateral; Z90.49 Acquired absence of other specified parts of digestive tract; Z90.89 Acquired absence of other organs
CPT/HCPCS: 36415; 80053; 82248; 83690; 85025; 99283; 96372; J1170

== ENCOUNTER 2020-06-21 10:58 | Emergency (ER) | payer BC ==
[2020-06-21 11:03] VITALS: RESP 18; TEMP 98.4
[2020-06-21] MEDS ORDERED: SODIUM CHLORIDE 0.9% 1,000 ML IV STA ×2 (11:13)
[2020-06-21] MEDS ORDERED: ONDANSETRON 4 MG/2 ML VIAL IVP STA (11:23)
[2020-06-21] MEDS ORDERED: HYDROmorphone 1 MG/ML 1 ML SYRINGE IVP STA (11:23)
[2020-06-21 11:47] LABS: Anisocytosis Slight; Basophils % (A) 1 %; Eosinophils # (A) 0.1 k/uL (0-0.7); Eosinophils % (A) 1 %; HGB 12.8 gm/dL (11.4-16.0); Lymphocytes # (A) 1.9 k/uL (1.0-4.8); Lymphocytes % (A) 26 %; MCH 27.6 pg (25.0-35.0); MCHC 31.9 g/dL (31.0-37.0); MCV 86.5 fL (80.0-100.0); Mean Platelet Volume 6.8; Monocytes # (A) 0.3 k/uL (0-1.0); Monocytes % (A) 4 %; Neutrophils # (A) 4.8 k/uL (1.3-7.7); Neutrophils % (A) 68 %; Platelet Count 374 k/uL (150-450); RBC 4.63 m/uL (3.80-5.40); RDW 17.2 % (11.5-15.5); WBC 7.2 k/uL (3.8-10.6)
[2020-06-21 11:55] LABS: ALT 19 U/L (4-34); AST 28 U/L (14-36); African American GFR (CKD) >90 (>60 ml/min/1.73 sqM); Albumin 4.3 g/dL (3.5-5.0); Alkaline Phosphatase 81 U/L (38-126); Amylase 45 U/L (30-110); Anion Gap 9 mmol/L; Blood Urea Nitrogen 9 mg/dL (7-17); Calcium 9.6 mg/dL (8.4-10.2); Carbon Dioxide 21 mmol/L (22-30); Chloride 107 mmol/L (98-107); Glucose 133 mg/dL (74-99); Lipase 114 U/L (23-300); Non-African American GFR(CKD) >90 (>60 ml/min/1.73 sqM); Potassium 3.9 mmol/L (3.5-5.1); Sodium 137 mmol/L (137-145); Total Bilirubin 0.3 mg/dL (0.2-1.3); Total Protein 7.3 g/dL (6.3-8.2)
--- NOTE | 2020-06-21 11:59 | ED ---
Abdominal Pain HPI - General Chief Complaint: Abdominal Pain Stated Complaint: Vomiting/Abd pain Time Seen by Provider: 06/21/20 11:12 Source: patient, RN notes reviewed, old records reviewed Mode of arrival: wheelchair Limitations: no limitations - History of Present Illness Initial Comments: Pt is a 64 year old female with CC of upper abdominal pain, nausea and vomiting. Pt has been has been to ED multiple times for nausea, vomiting andhx of pancrea titis. She believes that she is having a pancreatitis flare up. Denies change in stool, hematamesis,fevers, chills,chest pain, shortness of breath. - Related Data Home Medications Medication Instructions Recorded Confirmed Aspirin [Children's Aspirin] 81 mg PO DAILY 03/18/20 06/21/20 Atorvastatin [Lipitor] 40 mg PO HS 03/18/20 06/21/20 Ticagrelor [Brilinta] 90 mg PO BID 03/18/20 06/21/20 methocarbamoL [Robaxin] 750 mg PO BID 03/18/20 06/21/20 Albuterol Inhaler [Ventolin Hfa 2 puff INHALATION RT-Q4H PRN 06/21/20 06/21/20 Inhaler] Diphenox-Atrop 2.5-0.025 mg 1 - 2 tab PO QID PRN 06/21/20 06/21/20 [Lomotil] Gabapentin 800 mg PO QID 06/21/20 06/21/20 Lipase/Protease/Amylase [Chasity Bailey 6,000 units PO AC-TID 06/21/20 06/21/20 6,000 Units Capsule] Lipase/Protease/Amylase [Chasity Bailey 6,000 units PO DAILY PRN 06/21/20 06/21/20 6,000 Units Capsule] Mirtazapine [Remeron] 30 mg PO HS 06/21/20 06/21/20 amLODIPine BESYLATE/BENAZEPRIL 1 cap PO DAILY 06/21/20 06/21/20 [Lotrel 2.5-10 MG] Previous Rx's Medication Instructions Recorded Ondansetron Odt [Zofran Odt] 4 mg PO Q8HR PRN #12 tab 06/21/20 Allergies Allergy/AdvReac Type Severity Reaction Status Date / Time No Known Allergies Allergy Verified 06/21/20 13:00 Review of Systems ROS Statement: Those systems with pertinent positive or pertinent negative responses have been documented in the HPI. ROS Other: All systems not noted in ROS Statement are negative. 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/hx fx l2, hx anemia History of Any Multi-Drug Resistant Organisms: None Reported Past Surgical History: Appendectomy, Back Surgery, Cholecystectomy, Orthopedic Surgery, Tonsillectomy Additional Past Surgical History / Comment(s): Pancreatic stents-since removed, 6 back surgeries with 2 fusions, right oophorectomy due to ectopic , EGD/colonoscopy, right leg alice inserted d/t fracture, Past Anesthesia/Blood Transfusion Reactions: No Reported Reaction Additional Past Anesthesia/Blood Transfusion Reaction / Comment(s): DIFF IV STARTS, Pt has received blood in past without reaction. Past Psychological History: No Psychological Hx Reported Smoking Status: Former smoker Past Alcohol Use History: None Reported Past Drug Use History: None Reported - Past Family History Father Family Medical History: Cancer Mother Family Medical History: Cancer, CVA/TIA Additional Family Medical History / Comment(s): breast and colon cancer. General Exam - General Exam Comments Initial Comments: 64 year old female, no distress. Limitations: no limitations General appearance: alert, in no apparent distress Head exam: Present: atraumatic, normocephalic, normal inspection Eye exam: Present: normal appearance, PERRL, EOMI. Absent: scleral icterus, conjunctival injection, periorbital swelling ENT exam: Present: normal exam, mucous membranes moist Neck exam: Present: normal inspection. Absent: tenderness, meningismus, lymphadenopathy Respiratory exam: Present: normal lung sounds bilaterally (f). Absent: respiratory distress, wheezes, rales, rhonchi, stridor Cardiovascular Exam: Present: regular rate, normal rhythm, normal heart sounds. Absent: systolic murmur, diastolic murmur, rubs, gallop, clicks GI/Abdominal exam: Present: soft, tenderness (epigastric), normal bowel sounds. Absent: distended, guarding, rebound, rigid Neurological exam: Present: alert, oriented X3, CN II-XII intact Psychiatric exam: Present: normal affect, normal mood Skin exam: Present: warm, dry, intact, normal color. Absent: rash Course Vital Signs 06/21/20 06/21/20 06/21/20 11:00 12:03 13:07 Temperature 98.4 F 98.4 F Pulse Rate 109 H 90 87 Respiratory 18 18 18 Rate Blood Pressure 165/107 162/100 149/95 O2 Sat by Pulse 99 98 98 Oximetry Medical Decision Making - Medical Decision Making 64 year old female presents to ED for nausea nad vomiting. PT believes having pancreatitis flare up. Labs were reviewed and normal. No vomiting in ED. Discussed PCP follow up and given referral to new PCP and DC with Rx for zofran. - Lab Data Result diagrams: 06/21/20 11:20 06/21/20 11:20 Lab Results 06/21/20 06/21/20 06/21/20 Range/Units 11:20 11:20 11:20 WBC 7.2 (3.8-10.6) k/uL RBC 4.63 (3.80-5.40) m/uL Hgb 12.8 (11.4-16.0) gm/dL Hct 40.0 (34.0-46.0) % MCV 86.5 (80.0-100.0) fL MCH 27.6 (25.0-35.0) pg MCHC 31.9 (31.0-37.0) g/dL RDW 17.2 H (11.5-15.5) % Plt Count 374 (150-450) k/uL Neutrophils % 68 % Lymphocytes % 26 % Monocytes % 4 % Eosinophils % 1 % Basophils % 1 % Neutrophils # 4.8 (1.3-7.7) k/uL Lymphocytes # 1.9 (1.0-4.8) k/uL Monocytes # 0.3 (0-1.0) k/uL Eosinophils # 0.1 (0-0.7) k/uL Basophils # 0.0 (0-0.2) k/uL Anisocytosis Slight PT 9.8 (9.0-12.0) sec INR 0.9 (<1.2) APTT 23.4 (22.0-30.0) sec Sodium 137 (137-145) mmol/L Potassium 3.9 (3.5-5.1) mmol/L Chloride 107 (98-107) mmol/L Carbon Dioxide 21 L (22-30) mmol/L Anion Gap 9 mmol/L BUN 9 (7-17) mg/dL Creatinine 0.59 (0.52-1.04) mg/dL Est GFR (CKD-EPI)AfAm >90 (>60 ml/min/1.73 sqM) Est GFR (CKD-EPI)NonAf >90 (>60 ml/min/1.73 sqM) Glucose 133 H (74-99) mg/dL Calcium 9.6 (8.4-10.2) mg/dL Total Bilirubin 0.3 (0.2-1.3) mg/dL AST 28 (14-36) U/L ALT 19 (4-34) U/L Alkaline Phosphatase 81 (38-126) U/L Total Protein 7.3 (6.3-8.2) g/dL Albumin 4.3 (3.5-5.0) g/dL Amylase 45 (30-110) U/L Lipase 114 (23-300) U/L Urine Color Urine Appearance (Clear) Urine pH (5.0-8.0) Ur Specific Beryl (1.001-1.035) Urine Protein (Negative) Urine Glucose (UA) (Negative) Urine Ketones (Negative) Urine Blood (Negative) Urine Nitrite (Negative) Urine Bilirubin (Negative) Urine Urobilinogen (<2.0) mg/dL Ur Leukocyte Esterase (Negative) Urine RBC (0-5) /hpf Urine WBC (0-5) /hpf Ur Squamous Epith Cells (0-4) /hpf 06/21/20 Range/Units 12:27 WBC (3.8-10.6) k/uL RBC (3.80-5.40) m/uL Hgb (11.4-16.0) gm/dL Hct (34.0-46.0) % MCV (80.0-100.0) fL MCH (25.0-35.0) pg MCHC (31.0-37.0) g/dL RDW (11.5-15.5) % Plt Count (150-450) k/uL Neutrophils % % Lymphocytes % % Monocytes % % Eosinophils % % Basophils % % Neutrophils # (1.3-7.7) k/uL Lymphocytes # (1.0-4.8) k/uL Monocytes # (0-1.0) k/uL Eosinophils # (0-0.7) k/uL Basophils # (0-0.2) k/uL Anisocytosis PT (9.0-12.0) sec INR (<1.2) APTT (22.0-30.0) sec Sodium (137-145) mmol/L Potassium (3.5-5.1) mmol/L Chloride (98-107) mmol/L Carbon Dioxide (22-30) mmol/L Anion Gap mmol/L BUN (7-17) mg/dL Creatinine (0.52-1.04) mg/dL Est GFR (CKD-EPI)AfAm (>60 ml/min/1.73 sqM) Est GFR (CKD-EPI)NonAf (>60 ml/min/1.73 sqM) Glucose (74-99) mg/dL Calcium (8.4-10.2) mg/dL Total Bilirubin (0.2-1.3) mg/dL AST (14-36) U/L ALT (4-34) U/L Alkaline Phosphatase (38-126) U/L Total Protein (6.3-8.2) g/dL Albumin (3.5-5.0) g/dL Amylase (30-110) U/L Lipase (23-300) U/L Urine Color Light Yellow Urine Appearance Clear (Clear) Urine pH 6.5 (5.0-8.0) Ur Specific Beryl 1.006 (1.001-1.035) Urine Protein Negative (Negative) Urine Glucose (UA) Negative (Negative) Urine Ketones Negative (Negative) Urine Blood Trace H (Negative) Urine Nitrite Negative (Negative) Urine Bilirubin Negative (Negative) Urine Urobilinogen <2.0 (<2.0) mg/dL Ur Leukocyte Esterase Trace H (Negative) Urine RBC 2 (0-5) /hpf Urine WBC 3 (0-5) /hpf Ur Squamous Epith Cells 1 (0-4) /hpf Disposition Clinical Impression: Nausea & vomiting Disposition: HOME SELF-CARE Condition: Good Instructions (If sedation given, give patient instructions): Acute Nausea and Vomiting (ED) Additional Instructions: Please use medication as discussed. Please follow up with family doctor if symptoms have not improved over the next two days. Please return to the emergency room if your symptoms increase or worsen or for any other concerns. Prescriptions: Ondansetron Odt [Zofran Odt] 4 mg PO Q8HR PRN #12 tab PRN Reason: Nausea Is patient prescribed a controlled substance at d/c from ED?: No Referrals: None,Stated [Primary Care Provider] - 1-2 days Toi Chin [STAFF PHYSICIAN] - 1-2 days Tj Chairez MD [REFERRING] - 1-2 days Time of Disposition: 12:52
[2020-06-21 12:03] LABS: INR 0.9 (<1.2); Partial Thromboplastin Time 23.4 sec (22.0-30.0); Prothrombin Time 9.8 sec (9.0-12.0)
[2020-06-21 12:47] LABS: Appearance,Urine Clear (Clear); Bilirubin,Urine Negative (Negative); Blood,Urine Trace (Negative); Color,Urine Light Yellow; Glucose,Urine (UA) Negative (Negative); Ketones,Urine Negative (Negative); Leukocyte Esterase,Urine Trace (Negative); Nitrite,Urine Negative (Negative); PH, Urine 6.5 (5.0-8.0); Protein,Urine Negative (Negative); RBC,Urine 2 /hpf (0-5); Specific Gravity,Urine 1.006 (1.001-1.035); Squamous Epithelial Cell,Urine 1 /hpf (0-4); Urobilinogen,Urine <2.0 mg/dL (<2.0); WBC,Urine 3 /hpf (0-5)
[2020-06-21] MEDS ORDERED: ACET/COD 300 MG/30 MG STARTER PACK 6 TAB BTL PO STA (12:53)
[2020-06-21] MEDS ORDERED: ONDANSETRON 4 MG ODT STARTER PACK 2 TAB BTL PO STA (12:53)
[2020-06-21 13:11] VITALS: BP 149/95; PULSE 87
== END 2020-06-21 13:10 | disposition home or self-care (01) ==
LOC: EC 10:58
DX: R11.2 Nausea with vomiting, unspecified (principal); R10.10 Upper abdominal pain, unspecified; J44.9 Chronic obstructive pulmonary disease, unspecified; I10 Essential (primary) hypertension; K21.9 Gastro-esophageal reflux disease without esophagitis; Z79.82 Long term (current) use of aspirin; Z79.899 Other long term (current) drug therapy; Z86.73 Personal history of transient ischemic attack (TIA), and cerebral infarction without residual deficits; Z90.49 Acquired absence of other specified parts of digestive tract; Z90.89 Acquired absence of other organs; Z90.721 Acquired absence of ovaries, unilateral; Z87.891 Personal history of nicotine dependence
CPT/HCPCS: 36415; 80053; 82150; 83690; 85025; 85610; 85730; 81001; 99284; 96374; 96375; 96361; J2405; J1170; S0119

== ENCOUNTER 2020-06-24 11:52 | Emergency (ER) | payer BC ==
[2020-06-24] MEDS ORDERED: ONDANSETRON 4 MG/2 ML VIAL IVP STA (12:21)
[2020-06-24] MEDS ORDERED: SODIUM CHLORIDE 0.9% 1,000 ML IV STA (12:21)
--- NOTE | 2020-06-24 12:22 | ED ---
Abdominal Pain HPI - General Chief Complaint: Abdominal Pain Stated Complaint: Abd Pain, Vomiting Time Seen by Provider: 06/24/20 12:00 Source: patient Mode of arrival: ambulatory Limitations: no limitations - History of Present Illness Initial Comments: The patient is a 64-year-old female past medical history of hiatal hernia repair, chronic pancreatitis who presents emergency room report epigastric abdominal pain. Patient has been to the emergency department several times this month for similar complaint. Reports that her abdominal pain got worse yesterday. She has been unable to food or water. She does have worse panel threes at home for pain control. States that she took her last health. This morning and threw it up. Pain is located epigastric. This is the location of her normal pain. Denies hematemesis. No ripping or tearing sensation to her back. Denies chest pain. Denies any changes in her bowel or bladder habits. No fevers or chills. No other alleviating, precipitating or modifying factors - Related Data Home Medications Medication Instructions Recorded Confirmed Aspirin [Children's Aspirin] 81 mg PO DAILY 03/18/20 06/24/20 Atorvastatin [Lipitor] 40 mg PO HS 03/18/20 06/24/20 Ticagrelor [Brilinta] 90 mg PO BID 03/18/20 06/24/20 methocarbamoL [Robaxin] 750 mg PO BID 03/18/20 06/24/20 Albuterol Inhaler [Ventolin Hfa 2 puff INHALATION RT-Q4H PRN 06/21/20 06/24/20 Inhaler] Diphenox-Atrop 2.5-0.025 mg 1 - 2 tab PO QID PRN 06/21/20 06/24/20 [Lomotil] Lipase/Protease/Amylase [Chasity Bailey 6,000 units PO AC-TID 06/21/20 06/24/20 6,000 Units Capsule] Lipase/Protease/Amylase [Chasity Bailey 6,000 units PO DAILY PRN 06/21/20 06/24/20 6,000 Units Capsule] Mirtazapine [Remeron] 30 mg PO HS 06/21/20 06/24/20 amLODIPine BESYLATE/BENAZEPRIL 1 cap PO DAILY 06/21/20 06/24/20 [Lotrel 2.5-10 MG] Gabapentin [Neurontin] 100 mg PO TID 06/24/20 06/24/20 Previous Rx's Medication Instructions Recorded Ondansetron Odt [Zofran Odt] 4 mg PO Q8HR PRN #12 tab 06/21/20 Allergies Allergy/AdvReac Type Severity Reaction Status Date / Time No Known Allergies Allergy Verified 06/24/20 13:54 Review of Systems ROS Statement: Those systems with pertinent positive or pertinent negative responses have been documented in the HPI. ROS Other: All systems not noted in ROS Statement are negative. 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/hx fx l2, hx anemia History of Any Multi-Drug Resistant Organisms: None Reported Past Surgical History: Appendectomy, Back Surgery, Cholecystectomy, Orthopedic Surgery, Tonsillectomy Additional Past Surgical History / Comment(s): Pancreatic stents-since removed, 6 back surgeries with 2 fusions, right oophorectomy due to ectopic , EGD/colonoscopy, right leg alice inserted d/t fracture, Past Anesthesia/Blood Transfusion Reactions: No Reported Reaction Additional Past Anesthesia/Blood Transfusion Reaction / Comment(s): DIFF IV STARTS, Pt has received blood in past without reaction. Past Psychological History: No Psychological Hx Reported Smoking Status: Former smoker Past Alcohol Use History: None Reported Past Drug Use History: None Reported - Past Family History Father Family Medical History: Cancer Mother Family Medical History: Cancer, CVA/TIA Additional Family Medical History / Comment(s): breast and colon cancer. General Exam Limitations: no limitations General appearance: alert, in no apparent distress Head exam: Present: atraumatic, normocephalic, normal inspection Eye exam: Present: normal appearance, PERRL, EOMI. Absent: scleral icterus, conjunctival injection, periorbital swelling ENT exam: Present: normal exam, mucous membranes moist Neck exam: Present: normal inspection. Absent: tenderness, meningismus, lymphadenopathy Respiratory exam: Present: normal lung sounds bilaterally. Absent: respiratory distress, wheezes, rales, rhonchi, stridor Cardiovascular Exam: Present: regular rate, normal rhythm, normal heart sounds. Absent: systolic murmur, diastolic murmur, rubs, gallop, clicks GI/Abdominal exam: Present: soft, tenderness (epigastric), normal bowel sounds. Absent: distended, guarding, rebound, rigid Extremities exam: Present: normal inspection, full ROM, normal capillary refill. Absent: tenderness, pedal edema, joint swelling, calf tenderness Back exam: Present: normal inspection Neurological exam: Present: alert, oriented X3, CN II-XII intact Psychiatric exam: Present: normal affect, normal mood Skin exam: Present: warm, dry, intact, normal color. Absent: rash Course Vital Signs 06/24/20 06/24/20 11:58 14:38 Temperature 98.5 F 98.3 F Pulse Rate 109 H 82 Respiratory 16 18 Rate Blood Pressure 135/72 150/99 O2 Sat by Pulse 99 100 Oximetry Medical Decision Making - Medical Decision Making Upon arrival the patient is placed into room 13. A thorough history and physical exam was performed. 12-lead EKG was performed. Peripheral IV is established and the patient was given a liter bolus of normal saline and 1 mg of Dilaudid. Patient does have a prolonged QT and therefore is given an IM injection of Tigan. Laboratory studies were conducted. We did hold off on imaging at this time as the patient does report chronic pain without any new changes. Laboratory studies are unremarkable. Patient is reevaluated and reports improvement in her symptoms. Patient feels comfortable going home at this time. Does have follow-up with her new primary care physician. Patient will also be following up with her new surgeon on Sunday. Patient is instructed to return to the emergency room for any new or worsening symptoms for patient was discharged home in stable condition - Lab Data Result diagrams: 06/24/20 13:47 06/24/20 13:47 Lab Results 06/24/20 06/24/20 06/24/20 Range/Units 13:02 13:47 13:47 WBC 7.6 (3.8-10.6) k/uL RBC 4.78 (3.80-5.40) m/uL Hgb 13.3 (11.4-16.0) gm/dL Hct 41.1 (34.0-46.0) % MCV 86.1 (80.0-100.0) fL MCH 27.9 (25.0-35.0) pg MCHC 32.4 (31.0-37.0) g/dL RDW 16.8 H (11.5-15.5) % Plt Count 417 (150-450) k/uL Neutrophils % 59 % Lymphocytes % 34 % Monocytes % 5 % Eosinophils % 1 % Basophils % 1 % Neutrophils # 4.5 (1.3-7.7) k/uL Lymphocytes # 2.6 (1.0-4.8) k/uL Monocytes # 0.4 (0-1.0) k/uL Eosinophils # 0.1 (0-0.7) k/uL Basophils # 0.1 (0-0.2) k/uL Anisocytosis Slight Sodium 140 (137-145) mmol/L Potassium 4.0 (3.5-5.1) mmol/L Chloride 106 (98-107) mmol/L Carbon Dioxide 24 (22-30) mmol/L Anion Gap 10 mmol/L BUN 11 (7-17) mg/dL Creatinine 0.65 (0.52-1.04) mg/dL Est GFR (CKD-EPI)AfAm >90 (>60 ml/min/1.73 sqM) Est GFR (CKD-EPI)NonAf >90 (>60 ml/min/1.73 sqM) Glucose 119 H (74-99) mg/dL Plasma Lactic Acid Derek (0.7-2.0) mmol/L Calcium 10.1 (8.4-10.2) mg/dL Total Bilirubin 0.3 (0.2-1.3) mg/dL AST 28 (14-36) U/L ALT 21 (4-34) U/L Alkaline Phosphatase 86 (38-126) U/L Total Protein 8.2 (6.3-8.2) g/dL Albumin 4.8 (3.5-5.0) g/dL Lipase 232 (23-300) U/L Urine Color Light Yellow Urine Appearance Clear (Clear) Urine pH 6.0 (5.0-8.0) Ur Specific [place] 1.007 (1.001-1.035) Urine Protein Negative (Negative) Urine Glucose (UA) Negative (Negative) Urine Ketones Negative (Negative) Urine Blood Small H (Negative) Urine Nitrite Negative (Negative) Urine Bilirubin Negative (Negative) Urine Urobilinogen <2.0 (<2.0) mg/dL Ur Leukocyte Esterase Negative (Negative) Urine RBC 1 (0-5) /hpf Urine WBC 2 (0-5) /hpf Ur Squamous Epith Cells <1 (0-4) /hpf Urine Mucus Rare H (None) /hpf 06/24/20 Range/Units 13:47 WBC (3.8-10.6) k/uL RBC (3.80-5.40) m/uL Hgb (11.4-16.0) gm/dL Hct (34.0-46.0) % MCV (80.0-100.0) fL MCH (25.0-35.0) pg MCHC (31.0-37.0) g/dL RDW (11.5-15.5) % Plt Count (150-450) k/uL Neutrophils % % Lymphocytes % % Monocytes % % Eosinophils % % Basophils % % Neutrophils # (1.3-7.7) k/uL Lymphocytes # (1.0-4.8) k/uL Monocytes # (0-1.0) k/uL Eosinophils # (0-0.7) k/uL Basophils # (0-0.2) k/uL Anisocytosis Sodium (137-145) mmol/L Potassium (3.5-5.1) mmol/L Chloride (98-107) mmol/L Carbon Dioxide (22-30) mmol/L Anion Gap mmol/L BUN (7-17) mg/dL Creatinine (0.52-1.04) mg/dL Est GFR (CKD-EPI)AfAm (>60 ml/min/1.73 sqM) Est GFR (CKD-EPI)NonAf (>60 ml/min/1.73 sqM) Glucose (74-99) mg/dL Plasma Lactic Acid Derek 1.1 (0.7-2.0) mmol/L Calcium (8.4-10.2) mg/dL Total Bilirubin (0.2-1.3) mg/dL AST (14-36) U/L ALT (4-34) U/L Alkaline Phosphatase (38-126) U/L Total Protein (6.3-8.2) g/dL Albumin (3.5-5.0) g/dL Lipase (23-300) U/L Urine Color Urine Appearance (Clear) Urine pH (5.0-8.0) Ur Specific [place] (1.001-1.035) Urine Protein (Negative) Urine Glucose (UA) (Negative) Urine Ketones (Negative) Urine Blood (Negative) Urine Nitrite (Negative) Urine Bilirubin (Negative) Urine Urobilinogen (<2.0) mg/dL Ur Leukocyte Esterase (Negative) Urine RBC (0-5) /hpf Urine WBC (0-5) /hpf Ur Squamous Epith Cells (0-4) /hpf Urine Mucus (None) /hpf - EKG Data EKG Comments: EKG demonstrates normal sinus rhythm with a ventricular rate of 93. [place] interval 136. QRS 68. QTC of 512. No acute ST segment elevation or depressions concerning for ischemic changes Disposition Clinical Impression: Abdominal pain, Nausea and vomiting Disposition: HOME SELF-CARE Condition: Stable Instructions (If sedation given, give patient instructions): Abdominal Pain (ED) Additional Instructions: Please follow-up with your primary care doctor and the surgeon in regards to your symptoms. Return to the emergency room for any new or worsening symptoms Is patient prescribed a controlled substance at d/c from ED?: No Referrals: Toi Chin [Primary Care Provider] - 1-2 days Time of Disposition: 14:18
[2020-06-24] MEDS ORDERED: HYDROmorphone 1 MG/ML 1 ML SYRINGE IVP STA (12:31)
[2020-06-24 13:21] LABS: Appearance,Urine Clear (Clear); Bilirubin,Urine Negative (Negative); Blood,Urine Small (Negative); Color,Urine Light Yellow; Glucose,Urine (UA) Negative (Negative); Ketones,Urine Negative (Negative); Leukocyte Esterase,Urine Negative (Negative); Mucus,Urine Rare /hpf; Nitrite,Urine Negative (Negative); Protein,Urine Negative (Negative); RBC,Urine 1 /hpf (0-5); Specific Gravity,Urine 1.007 (1.001-1.035); Squamous Epithelial Cell,Urine <1 /hpf (0-4); Urobilinogen,Urine <2.0 mg/dL (<2.0); WBC,Urine 2 /hpf (0-5)
[2020-06-24 13:54] LABS: Anisocytosis Slight; Basophils # (A) 0.1 k/uL (0-0.2); Basophils % (A) 1 %; Eosinophils # (A) 0.1 k/uL (0-0.7); Eosinophils % (A) 1 %; HCT 41.1 % (34.0-46.0); HGB 13.3 gm/dL (11.4-16.0); Lymphocytes # (A) 2.6 k/uL (1.0-4.8); Lymphocytes % (A) 34 %; MCH 27.9 pg (25.0-35.0); MCHC 32.4 g/dL (31.0-37.0); MCV 86.1 fL (80.0-100.0); Mean Platelet Volume 6.9; Monocytes # (A) 0.4 k/uL (0-1.0); Monocytes % (A) 5 %; Neutrophils # (A) 4.5 k/uL (1.3-7.7); Neutrophils % (A) 59 %; Platelet Count 417 k/uL (150-450); RBC 4.78 m/uL (3.80-5.40); RDW 16.8 % (11.5-15.5); WBC 7.6 k/uL (3.8-10.6)
[2020-06-24] MEDS ORDERED: TRIMETHOBENZAMIDE 100 MG/ML 2 ML VIAL IM STA (13:57)
[2020-06-24 14:04] LABS: ALT 21 U/L (4-34); AST 28 U/L (14-36); African American GFR (CKD) >90 (>60 ml/min/1.73 sqM); Albumin 4.8 g/dL (3.5-5.0); Alkaline Phosphatase 86 U/L (38-126); Anion Gap 10 mmol/L; Blood Urea Nitrogen 11 mg/dL (7-17); Calcium 10.1 mg/dL (8.4-10.2); Carbon Dioxide 24 mmol/L (22-30); Chloride 106 mmol/L (98-107); Glucose 119 mg/dL (74-99); Lipase 232 U/L (23-300); Non-African American GFR(CKD) >90 (>60 ml/min/1.73 sqM); Sodium 140 mmol/L (137-145); Total Bilirubin 0.3 mg/dL (0.2-1.3); Total Protein 8.2 g/dL (6.3-8.2)
[2020-06-24] MEDS ORDERED: ACET/COD 300 MG/30 MG STARTER PACK 6 TAB BTL PO STA (14:16)
[2020-06-24] MEDS ORDERED: DIPHENOX-ATROP 2.5-0.025 MG 1 EACH TAB PO STA (14:17)
[2020-06-24 14:39] VITALS: BP 150/99; PULSE 82; RESP 18; TEMP 98.3
== END 2020-06-24 14:39 | disposition home or self-care (01) ==
LOC: EC 11:52
DX: R10.13 Epigastric pain (principal); R11.2 Nausea with vomiting, unspecified; R94.31 Abnormal electrocardiogram [ECG] [EKG]; G89.29 Other chronic pain; K86.1 Other chronic pancreatitis; J44.9 Chronic obstructive pulmonary disease, unspecified; K21.9 Gastro-esophageal reflux disease without esophagitis; I10 Essential (primary) hypertension; M19.90 Unspecified osteoarthritis, unspecified site; G43.909 Migraine, unspecified, not intractable, without status migrainosus; I69.354 Hemiplegia and hemiparesis following cerebral infarction affecting left non-dominant side; Z87.19 Personal history of other diseases of the digestive system; Z79.51 Long term (current) use of inhaled steroids; Z79.899 Other long term (current) drug therapy; Z79.82 Long term (current) use of aspirin; Z90.49 Acquired absence of other specified parts of digestive tract; Z87.891 Personal history of nicotine dependence
CPT/HCPCS: 99284; 96374; 96372; 36415; 93005; 80053; 83605; 83690; 85025; 81001; J3250; J1170

== ENCOUNTER 2020-07-22 11:30 | Emergency (ER) | payer BC ==
[2020-07-22] MEDS ORDERED: SODIUM CHLORIDE 0.9% 1,000 ML IV STA (11:33)
[2020-07-22] MEDS ORDERED: ONDANSETRON 4 MG/2 ML VIAL IVP STA (11:33)
[2020-07-22] MEDS ORDERED: HYDROmorphone 0.5 MG/0.5 ML SYRINGE IVP STA (11:33)
[2020-07-22 12:13] LABS: Basophils # (A) 0.1 k/uL (0-0.2); Basophils % (A) 1 %; Eosinophils # (A) 0.2 k/uL (0-0.7); Eosinophils % (A) 2 %; HGB 13.9 gm/dL (11.4-16.0); Lymphocytes # (A) 1.8 k/uL (1.0-4.8); Lymphocytes % (A) 20 %; MCHC 31.7 g/dL (31.0-37.0); MCV 85.1 fL (80.0-100.0); Mean Platelet Volume 7.8; Monocytes # (A) 0.4 k/uL (0-1.0); Monocytes % (A) 4 %; Neutrophils # (A) 6.5 k/uL (1.3-7.7); Neutrophils % (A) 72 %; Platelet Count 312 k/uL (150-450); RBC 5.17 m/uL (3.80-5.40); RDW 15.3 % (11.5-15.5)
--- NOTE | 2020-07-22 12:14 | ED ---
Abdominal Pain HPI - General Chief Complaint: Abdominal Pain Stated Complaint: Abd Pain Source: patient, EMS Mode of arrival: EMS Limitations: no limitations - History of Present Illness Initial Comments: 64-year-old female with past history of CVA, Karin fundoplication 6 months ago who presents emergency Department with reported epigastric abdominal pain, nausea and vomiting. Patient states her symptoms have been present for the past 3 days. She's been seen multiple times in the emergency room for similar complaint and denies that there are any new symptoms accompanying which he normally experiences. She does have an appointment to follow up with a surgeon on August 06. States that she sign a primary care physician who gave her a few doses of pain medications. States that she took Ultram earlier today however didn't help her symptoms. She called her doctor who recommended that she come to the emergency room for evaluation. States she has been unable to hold down any food. Fevers or chills. Denies cough or chest pain. No diarrhea, melenic stools or hematochezia. No changes in her urination. No other alleviating, precipitating modifying factors - Related Data Home Medications Medication Instructions Recorded Confirmed Aspirin [Children's Aspirin] 81 mg PO DAILY 03/18/20 07/22/20 Atorvastatin [Lipitor] 40 mg PO HS 03/18/20 07/22/20 Ticagrelor [Brilinta] 90 mg PO BID 03/18/20 07/22/20 methocarbamoL [Robaxin] 750 mg PO BID 03/18/20 07/22/20 Albuterol Inhaler [Ventolin Hfa 2 puff INHALATION RT-Q4H PRN 06/21/20 07/22/20 Inhaler] Diphenox-Atrop 2.5-0.025 mg 1 - 2 tab PO QID PRN 06/21/20 07/22/20 [Lomotil] Lipase/Protease/Amylase [Chasity Bailey 6,000 units PO AC-TID 06/21/20 07/22/20 6,000 Units Capsule] Lipase/Protease/Amylase [Chasity Bailey 6,000 units PO DAILY PRN 06/21/20 07/22/20 6,000 Units Capsule] Mirtazapine [Remeron] 30 mg PO HS 06/21/20 07/22/20 amLODIPine BESYLATE/BENAZEPRIL 1 cap PO DAILY 06/21/20 07/22/20 [Lotrel 2.5-10 MG] Gabapentin [Neurontin] 100 mg PO TID 06/24/20 07/22/20 Previous Rx's Medication Instructions Recorded Ondansetron Odt [Zofran Odt] 4 mg PO Q8HR PRN #12 tab 06/21/20 Allergies Allergy/AdvReac Type Severity Reaction Status Date / Time No Known Allergies Allergy Verified 07/22/20 12:58 Review of Systems ROS Statement: Those systems with pertinent positive or pertinent negative responses have been documented in the HPI. ROS Other: All systems not noted in ROS Statement are negative. 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/hx fx l2, hx anemia History of Any Multi-Drug Resistant Organisms: None Reported Past Surgical History: Appendectomy, Back Surgery, Cholecystectomy, Orthopedic Surgery, Tonsillectomy Additional Past Surgical History / Comment(s): Pancreatic stents-since removed, 6 back surgeries with 2 fusions, right oophorectomy due to ectopic , EGD/colonoscopy, right leg alice inserted d/t fracture, Past Anesthesia/Blood Transfusion Reactions: No Reported Reaction Additional Past Anesthesia/Blood Transfusion Reaction / Comment(s): DIFF IV STARTS, Pt has received blood in past without reaction. Past Psychological History: No Psychological Hx Reported Smoking Status: Former smoker Past Alcohol Use History: None Reported Past Drug Use History: None Reported - Past Family History Father Family Medical History: Cancer Mother Family Medical History: Cancer, CVA/TIA Additional Family Medical History / Comment(s): breast and colon cancer. General Exam Limitations: no limitations Course Vital Signs 07/22/20 07/22/20 11:32 13:46 Temperature 99 F 98.4 F Pulse Rate 110 H 95 Respiratory 98 H 18 Rate Blood Pressure 137/94 140/98 O2 Sat by Pulse 98 99 Oximetry Medical Decision Making - Medical Decision Making Upon arrival patient is placed into room 8. A thorough history and physical exam was performed. Per private is established. Patient given nausea and pain medications. Laboratory studies are reviewed. Lactic acid mildly elevated at 2.6. Urinalysis will go for culture. Patient is reevaluated and is requesting another dose of pain medication. Discharged home with a Tylenol 3 starter pack. She is instructed to follow-up with her primary care doctor. Return to the emergency room for any new or worsening symptoms. Patient discharged home in stable condition - Lab Data Result diagrams: 07/22/20 12:05 07/22/20 12:05 Lab Results 07/22/20 07/22/20 07/22/20 Range/Units 12:05 12:05 12:05 WBC 9.0 (3.8-10.6) k/uL RBC 5.17 (3.80-5.40) m/uL Hgb 13.9 (11.4-16.0) gm/dL Hct 44.0 (34.0-46.0) % MCV 85.1 (80.0-100.0) fL MCH 27.0 (25.0-35.0) pg MCHC 31.7 (31.0-37.0) g/dL RDW 15.3 (11.5-15.5) % Plt Count 312 (150-450) k/uL MPV 7.8 Neutrophils % 72 % Lymphocytes % 20 % Monocytes % 4 % Eosinophils % 2 % Basophils % 1 % Neutrophils # 6.5 (1.3-7.7) k/uL Lymphocytes # 1.8 (1.0-4.8) k/uL Monocytes # 0.4 (0-1.0) k/uL Eosinophils # 0.2 (0-0.7) k/uL Basophils # 0.1 (0-0.2) k/uL Sodium 138 (137-145) mmol/L Potassium 4.1 (3.5-5.1) mmol/L Chloride 108 H (98-107) mmol/L Carbon Dioxide 19 L (22-30) mmol/L Anion Gap 11 mmol/L BUN 9 (7-17) mg/dL Creatinine 0.66 (0.52-1.04) mg/dL Est GFR (CKD-EPI)AfAm >90 (>60 ml/min/1.73 sqM) Est GFR (CKD-EPI)NonAf >90 (>60 ml/min/1.73 sqM) Glucose 142 H (74-99) mg/dL Lactic Ac Sepsis Rflx Plasma Lactic Acid Derek 2.6 H* (0.7-2.0) mmol/L Calcium 9.9 (8.4-10.2) mg/dL Total Bilirubin 0.5 (0.2-1.3) mg/dL AST 28 (14-36) U/L ALT 18 (4-34) U/L Alkaline Phosphatase 84 (38-126) U/L Total Protein 7.5 (6.3-8.2) g/dL Albumin 4.4 (3.5-5.0) g/dL Lipase 78 (23-300) U/L Urine Color Urine Appearance (Clear) Urine pH (5.0-8.0) Ur Specific [place] (1.001-1.035) Urine Protein (Negative) Urine Glucose (UA) (Negative) Urine Ketones (Negative) Urine Blood (Negative) Urine Nitrite (Negative) Urine Bilirubin (Negative) Urine Urobilinogen (<2.0) mg/dL Ur Leukocyte Esterase (Negative) Urine RBC (0-5) /hpf Urine WBC (0-5) /hpf Ur Squamous Epith Cells (0-4) /hpf Urine Bacteria (None) /hpf Hyaline Casts (0-2) /lpf Urine Mucus (None) /hpf 07/22/20 07/22/20 Range/Units 12:29 12:57 WBC (3.8-10.6) k/uL RBC (3.80-5.40) m/uL Hgb (11.4-16.0) gm/dL Hct (34.0-46.0) % MCV (80.0-100.0) fL MCH (25.0-35.0) pg MCHC (31.0-37.0) g/dL RDW (11.5-15.5) % Plt Count (150-450) k/uL MPV Neutrophils % % Lymphocytes % % Monocytes % % Eosinophils % % Basophils % % Neutrophils # (1.3-7.7) k/uL Lymphocytes # (1.0-4.8) k/uL Monocytes # (0-1.0) k/uL Eosinophils # (0-0.7) k/uL Basophils # (0-0.2) k/uL Sodium (137-145) mmol/L Potassium (3.5-5.1) mmol/L Chloride (98-107) mmol/L Carbon Dioxide (22-30) mmol/L Anion Gap mmol/L BUN (7-17) mg/dL Creatinine (0.52-1.04) mg/dL Est GFR (CKD-EPI)AfAm (>60 ml/min/1.73 sqM) Est GFR (CKD-EPI)NonAf (>60 ml/min/1.73 sqM) Glucose (74-99) mg/dL Lactic Ac Sepsis Rflx Y Plasma Lactic Acid Derek (0.7-2.0) mmol/L Calcium (8.4-10.2) mg/dL Total Bilirubin (0.2-1.3) mg/dL AST (14-36) U/L ALT (4-34) U/L Alkaline Phosphatase (38-126) U/L Total Protein (6.3-8.2) g/dL Albumin (3.5-5.0) g/dL Lipase (23-300) U/L Urine Color Yellow Urine Appearance Cloudy H (Clear) Urine pH 6.0 (5.0-8.0) Ur Specific [place] 1.016 (1.001-1.035) Urine Protein Trace H (Negative) Urine Glucose (UA) Negative (Negative) Urine Ketones Negative (Negative) Urine Blood Small H (Negative) Urine Nitrite Negative (Negative) Urine Bilirubin Negative (Negative) Urine Urobilinogen <2.0 (<2.0) mg/dL Ur Leukocyte Esterase Moderate H (Negative) Urine RBC 7 H (0-5) /hpf Urine WBC 24 H (0-5) /hpf Ur Squamous Epith Cells 10 H (0-4) /hpf Urine Bacteria Rare H (None) /hpf Hyaline Casts 1 (0-2) /lpf Urine Mucus Occasional H (None) /hpf - EKG Data EKG Comments: DD demonstrates sinus tachycardia with a ventricular rate of 106. P of 170. QRS of 86. QTC of 488. No acute ST segment elevations or depressions concerning for ischemic changes Disposition Clinical Impression: Abdominal pain, Chronic pancreatitis, Dehydration Disposition: HOME SELF-CARE Condition: Stable Instructions (If sedation given, give patient instructions): Abdominal Pain (ED) Additional Instructions: Please follow-up with the surgeon on the fourth. Return to the emergency room for any new or worsening symptoms Is patient prescribed a controlled substance at d/c from ED?: No Referrals: Giuseppe,Toi [Primary Care Provider] - 1-2 days Time of Disposition: 13:42
[2020-07-22 12:23] LABS: ALT 18 U/L (4-34); AST 28 U/L (14-36); African American GFR (CKD) >90 (>60 ml/min/1.73 sqM); Albumin 4.4 g/dL (3.5-5.0); Alkaline Phosphatase 84 U/L (38-126); Anion Gap 11 mmol/L; Blood Urea Nitrogen 9 mg/dL (7-17); Calcium 9.9 mg/dL (8.4-10.2); Carbon Dioxide 19 mmol/L (22-30); Chloride 108 mmol/L (98-107); Glucose 142 mg/dL (74-99); Lipase 78 U/L (23-300); Non-African American GFR(CKD) >90 (>60 ml/min/1.73 sqM); Potassium 4.1 mmol/L (3.5-5.1); Sodium 138 mmol/L (137-145); Total Bilirubin 0.5 mg/dL (0.2-1.3); Total Protein 7.5 g/dL (6.3-8.2)
[2020-07-22] MEDS ORDERED: HYDROmorphone 1 MG/ML 1 ML SYRINGE IVP STA (13:41)
[2020-07-22 13:42] LABS: Appearance,Urine Cloudy (Clear); Bilirubin,Urine Negative (Negative); Color,Urine Yellow; Glucose,Urine (UA) Negative (Negative); Ketones,Urine Negative (Negative); Protein,Urine Trace (Negative); Specific Gravity,Urine 1.016 (1.001-1.035)
[2020-07-22 13:43] LABS: Bacteria,Urine Rare /hpf; Blood,Urine Small (Negative); Hyaline Casts,Urine 1 /lpf (0-2); Leukocyte Esterase,Urine Moderate (Negative); Mucus,Urine Occasional /hpf; Nitrite,Urine Negative (Negative); RBC,Urine 7 /hpf (0-5); Squamous Epithelial Cell,Urine 10 /hpf (0-4); Urobilinogen,Urine <2.0 mg/dL (<2.0); WBC,Urine 24 /hpf (0-5)
[2020-07-22 13:48] VITALS: BP 140/98; PULSE 95; RESP 18; TEMP 98.4
[2020-07-22] MEDS ORDERED: ACET/COD 300 MG/30 MG STARTER PACK 6 TAB BTL PO STA (13:49)
== END 2020-07-22 14:28 | disposition home or self-care (01) ==
LOC: EC 11:30
DX: K86.1 Other chronic pancreatitis (principal); E86.0 Dehydration; J44.9 Chronic obstructive pulmonary disease, unspecified; K21.9 Gastro-esophageal reflux disease without esophagitis; I10 Essential (primary) hypertension; M19.90 Unspecified osteoarthritis, unspecified site; Z79.82 Long term (current) use of aspirin; Z79.899 Other long term (current) drug therapy; Z86.73 Personal history of transient ischemic attack (TIA), and cerebral infarction without residual deficits; Z86.69 Personal history of other diseases of the nervous system and sense organs; Z87.891 Personal history of nicotine dependence; Z90.49 Acquired absence of other specified parts of digestive tract; Z98.1 Arthrodesis status; Z90.721 Acquired absence of ovaries, unilateral
CPT/HCPCS: 36415; 93005; 80053; 83605; 83690; 85025; 81001; 87086; 99284; 96374; 96375; 96376; 96361; J2405; J1170 ×2

== ENCOUNTER 2020-07-24 08:14 | Emergency (ER) | payer BC ==
[2020-07-24] MEDS ORDERED: ONDANSETRON 4 MG/2 ML VIAL IVP STA ×2 (08:30→11:22)
[2020-07-24] MEDS ORDERED: SODIUM CHLORIDE 0.9% 1,000 ML IV STA (08:30)
[2020-07-24] MEDS ORDERED: PANTOPRAZOLE 40 MG/10 ML VIAL IVP STA (08:30)
--- NOTE | 2020-07-24 08:33 | ED ---
General Adult HPI - General Chief complaint: Urogenital Stated complaint: Abdominal pain Time Seen by Provider: 07/24/20 08:23 Source: patient, old records reviewed Mode of arrival: wheelchair Limitations: no limitations - History of Present Illness Initial comments: Patient is a pleasant 64-year-old female presenting to the emergency Department with chronic abdominal pain. Patient states this is a chronic problem for her and has pancreatitis. Patient states she is supposed to see a new specialist next month. Patient does have some nausea. Patient did notice some hematuria which is a new thing for her. Otherwise discomfort feels similar to previous. No constipation or diarrhea. No fever. - Related Data Home Medications Medication Instructions Recorded Confirmed Aspirin [Children's Aspirin] 81 mg PO DAILY 03/18/20 07/22/20 Atorvastatin [Lipitor] 40 mg PO HS 03/18/20 07/22/20 Ticagrelor [Brilinta] 90 mg PO BID 03/18/20 07/22/20 methocarbamoL [Robaxin] 750 mg PO BID 03/18/20 07/22/20 Albuterol Inhaler [Ventolin Hfa 2 puff INHALATION RT-Q4H PRN 06/21/20 07/22/20 Inhaler] Diphenox-Atrop 2.5-0.025 mg 1 - 2 tab PO QID PRN 06/21/20 07/22/20 [Lomotil] Lipase/Protease/Amylase [Chasity Bailey 6,000 units PO AC-TID 06/21/20 07/22/20 6,000 Units Capsule] Lipase/Protease/Amylase [Chasity Bailey 6,000 units PO DAILY PRN 06/21/20 07/22/20 6,000 Units Capsule] Mirtazapine [Remeron] 30 mg PO HS 06/21/20 07/22/20 amLODIPine BESYLATE/BENAZEPRIL 1 cap PO DAILY 06/21/20 07/22/20 [Lotrel 2.5-10 MG] Gabapentin [Neurontin] 100 mg PO TID 06/24/20 07/22/20 Previous Rx's Medication Instructions Recorded Ondansetron Odt [Zofran Odt] 4 mg PO Q8HR PRN #12 tab 06/21/20 Allergies Allergy/AdvReac Type Severity Reaction Status Date / Time No Known Allergies Allergy Verified 11/21/20 08:21 Review of Systems ROS Statement: Those systems with pertinent positive or pertinent negative responses have been documented in the HPI. ROS Other: All systems not noted in ROS Statement are negative. Constitutional: Denies: fever Eyes: Denies: eye pain ENT: Denies: ear pain Respiratory: Denies: cough, dyspnea Cardiovascular: Denies: chest pain Endocrine: Denies: fatigue Gastrointestinal: Reports: as per HPI, abdominal pain. Denies: vomiting Genitourinary: Reports: as per HPI, hematuria Musculoskeletal: Denies: back pain Skin: Denies: rash Neurological: Denies: weakness 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/hx fx l2, hx anemia History of Any Multi-Drug Resistant Organisms: None Reported Past Surgical History: Appendectomy, Back Surgery, Cholecystectomy, Orthopedic Surgery, Tonsillectomy Additional Past Surgical History / Comment(s): Pancreatic stents-since removed, 6 back surgeries with 2 fusions, right oophorectomy due to ectopic , EGD/colonoscopy, right leg alice inserted d/t fracture, Past Anesthesia/Blood Transfusion Reactions: No Reported Reaction Additional Past Anesthesia/Blood Transfusion Reaction / Comment(s): DIFF IV STARTS, Pt has received blood in past without reaction. Past Psychological History: No Psychological Hx Reported Smoking Status: Former smoker Past Alcohol Use History: None Reported Past Drug Use History: None Reported - Past Family History Father Family Medical History: Cancer Mother Family Medical History: Cancer, CVA/TIA Additional Family Medical History / Comment(s): breast and colon cancer. General Exam Limitations: no limitations General appearance: alert, in no apparent distress, other (Patient sitting upright resting comfortably in bed) Head exam: Present: normocephalic Eye exam: Present: normal appearance Neck exam: Present: normal inspection Respiratory exam: Present: normal lung sounds bilaterally Cardiovascular Exam: Present: regular rate, normal rhythm Expanded Peripheral pulses: 2+: Radial (R), Radial (L), Posterior Tibialis (R), Posterior Tibialis (L) GI/Abdominal exam: Present: soft, tenderness (Mild diffuse tenderness to palpation), normal bowel sounds. Absent: distended, guarding, rebound, rigid, pulsatile mass Extremities exam: Present: normal inspection Back exam: Present: normal inspection Neurological exam: Present: alert Psychiatric exam: Present: normal affect, normal mood Skin exam: Present: normal color Course Vital Signs 07/24/20 07/24/20 08:18 09:55 Temperature 97.6 F 97.6 F Pulse Rate 104 H 98 Respiratory 16 14 Rate Blood Pressure 126/84 122/64 O2 Sat by Pulse 100 99 Oximetry Medical Decision Making - Medical Decision Making Patient reevaluated and resting comfortably in bed, still complains of discomfort. Patient requests Dilaudid and Zofran and a starter pack of pain pills and that is comfortable with discharge at that time. - Lab Data Result diagrams: 07/24/20 08:38 07/24/20 08:38 Lab Results 07/24/20 07/24/20 07/24/20 Range/Units 08:38 08:38 08:38 WBC 4.9 (3.8-10.6) k/uL RBC 4.56 (3.80-5.40) m/uL Hgb 12.9 (11.4-16.0) gm/dL Hct 38.3 (34.0-46.0) % MCV 84.0 (80.0-100.0) fL MCH 28.3 (25.0-35.0) pg MCHC 33.7 (31.0-37.0) g/dL RDW 15.1 (11.5-15.5) % Plt Count 266 (150-450) k/uL MPV 7.3 Neutrophils % 63 % Lymphocytes % 27 % Monocytes % 5 % Eosinophils % 3 % Basophils % 1 % Neutrophils # 3.1 (1.3-7.7) k/uL Lymphocytes # 1.3 (1.0-4.8) k/uL Monocytes # 0.3 (0-1.0) k/uL Eosinophils # 0.2 (0-0.7) k/uL Basophils # 0.0 (0-0.2) k/uL Sodium 141 (137-145) mmol/L Potassium 3.8 (3.5-5.1) mmol/L Chloride 109 H (98-107) mmol/L Carbon Dioxide 24 (22-30) mmol/L Anion Gap 8 mmol/L BUN 12 (7-17) mg/dL Creatinine 0.67 (0.52-1.04) mg/dL Est GFR (CKD-EPI)AfAm >90 (>60 ml/min/1.73 sqM) Est GFR (CKD-EPI)NonAf >90 (>60 ml/min/1.73 sqM) Glucose 145 H (74-99) mg/dL Calcium 9.2 (8.4-10.2) mg/dL Total Bilirubin 0.4 (0.2-1.3) mg/dL AST 22 (14-36) U/L ALT 15 (4-34) U/L Alkaline Phosphatase 82 (38-126) U/L Total Protein 6.7 (6.3-8.2) g/dL Albumin 3.9 (3.5-5.0) g/dL Amylase 40 (30-110) U/L Lipase 127 (23-300) U/L Urine Color Light Yellow Urine Appearance Clear (Clear) Urine pH 6.0 (5.0-8.0) Ur Specific [place] 1.009 (1.001-1.035) Urine Protein Negative (Negative) Urine Glucose (UA) Negative (Negative) Urine Ketones Negative (Negative) Urine Blood Large H (Negative) Urine Nitrite Negative (Negative) Urine Bilirubin Negative (Negative) Urine Urobilinogen <2.0 (<2.0) mg/dL Ur Leukocyte Esterase Negative (Negative) Urine RBC 3 (0-5) /hpf Urine WBC 1 (0-5) /hpf Ur Squamous Epith Cells 1 (0-4) /hpf Urine Bacteria Rare H (None) /hpf Hyaline Casts 3 H (0-2) /lpf Urine Mucus Occasional H (None) /hpf - Radiology Data Radiology results: image reviewed (Abdominal x-ray shows no obstructive pattern.) Disposition Clinical Impression: Chronic abdominal pain Disposition: HOME SELF-CARE Condition: Stable Instructions (If sedation given, give patient instructions): Abdominal Pain (ED) Additional Instructions: Clear liquid diet. Please follow-up with primary care physician in the next co uple of days for recheck. Please follow-up with specialist as scheduled. Return for change or worsening pain, fevers, uncontrolled vomiting, worsening symptoms or other concerns Is patient prescribed a controlled substance at d/c from ED?: No Referrals: Toi Chin [Primary Care Provider] - 1-2 days Time of Disposition: 11:22
[2020-07-24 09:43] LABS: Basophils % (A) 1 %; Eosinophils # (A) 0.2 k/uL (0-0.7); Eosinophils % (A) 3 %; HCT 38.3 % (34.0-46.0); HGB 12.9 gm/dL (11.4-16.0); Lymphocytes # (A) 1.3 k/uL (1.0-4.8); Lymphocytes % (A) 27 %; MCH 28.3 pg (25.0-35.0); MCHC 33.7 g/dL (31.0-37.0); Mean Platelet Volume 7.3; Monocytes # (A) 0.3 k/uL (0-1.0); Monocytes % (A) 5 %; Neutrophils # (A) 3.1 k/uL (1.3-7.7); Neutrophils % (A) 63 %; Platelet Count 266 k/uL (150-450); RBC 4.56 m/uL (3.80-5.40); RDW 15.1 % (11.5-15.5); WBC 4.9 k/uL (3.8-10.6)
[2020-07-24 09:52] LABS: Appearance,Urine Clear (Clear); Bacteria,Urine Rare /hpf; Bilirubin,Urine Negative (Negative); Blood,Urine Large (Negative); Color,Urine Light Yellow; Glucose,Urine (UA) Negative (Negative); Hyaline Casts,Urine 3 /lpf (0-2); Ketones,Urine Negative (Negative); Leukocyte Esterase,Urine Negative (Negative); Mucus,Urine Occasional /hpf; Nitrite,Urine Negative (Negative); Protein,Urine Negative (Negative); RBC,Urine 3 /hpf (0-5); Specific Gravity,Urine 1.009 (1.001-1.035); Squamous Epithelial Cell,Urine 1 /hpf (0-4); Urobilinogen,Urine <2.0 mg/dL (<2.0); WBC,Urine 1 /hpf (0-5)
--- NOTE | 2020-07-24 09:56 | XR ---
EXAMINATION TYPE: XR KUB DATE OF EXAM: 07/24/2020 COMPARISON: 06/13/2020 HISTORY: Pain TECHNIQUE: Single supine KUB image of the abdomen is obtained FINDINGS: Small bowel demonstrates no evidence for dilatation or air fluid levels. Gas and fecal material is seen in non-distended colon. No convincing evidence for pneumoperitoneum. No unusual calcifications. The lung bases are clear. Postoperative changes lumbar spine. IMPRESSION: 1. Overall nonobstructive bowel gas pattern.
[2020-07-24 09:57] VITALS: RESP 14
[2020-07-24 09:59] LABS: ALT 15 U/L (4-34); AST 22 U/L (14-36); African American GFR (CKD) >90 (>60 ml/min/1.73 sqM); Albumin 3.9 g/dL (3.5-5.0); Alkaline Phosphatase 82 U/L (38-126); Amylase 40 U/L (30-110); Anion Gap 8 mmol/L; Blood Urea Nitrogen 12 mg/dL (7-17); Calcium 9.2 mg/dL (8.4-10.2); Carbon Dioxide 24 mmol/L (22-30); Chloride 109 mmol/L (98-107); Glucose 145 mg/dL (74-99); Lipase 127 U/L (23-300); Non-African American GFR(CKD) >90 (>60 ml/min/1.73 sqM); Potassium 3.8 mmol/L (3.5-5.1); Sodium 141 mmol/L (137-145); Total Bilirubin 0.4 mg/dL (0.2-1.3); Total Protein 6.7 g/dL (6.3-8.2)
[2020-07-24] MEDS ORDERED: ACET/COD 300 MG/30 MG STARTER PACK 6 TAB BTL PO STA (11:22)
[2020-07-24] MEDS ORDERED: HYDROmorphone 1 MG/ML 1 ML SYRINGE IVP STA (11:22)
[2020-07-24 11:41] VITALS: BP 126/78; PULSE 68; TEMP 97.9
== END 2020-07-24 11:38 | disposition home or self-care (01) ==
LOC: EC 08:14
DX: G89.29 Other chronic pain (principal); R10.9 Unspecified abdominal pain; R11.0 Nausea; R31.9 Hematuria, unspecified; I10 Essential (primary) hypertension; J44.9 Chronic obstructive pulmonary disease, unspecified; K21.9 Gastro-esophageal reflux disease without esophagitis; Z79.82 Long term (current) use of aspirin; Z79.899 Other long term (current) drug therapy; Z87.891 Personal history of nicotine dependence; Z86.73 Personal history of transient ischemic attack (TIA), and cerebral infarction without residual deficits; Z90.49 Acquired absence of other specified parts of digestive tract; Z90.89 Acquired absence of other organs; Z90.721 Acquired absence of ovaries, unilateral; Z98.1 Arthrodesis status
CPT/HCPCS: 80053; 82150; 83690; 85025; 74018; 99284; 96374; 96375 ×2; 96376; 96361; J2405; J1170; C9113; 36415; 81001

== ENCOUNTER 2020-07-30 07:52 | Day surgery (SDC) | payer BC ==
[~2020-07-30 07:52] MED LIST changes: -ACETAMINOPHEN TAB 500 MG TAB PO ONE; -DEXAMETHASONE SOD PHOSPHATE 10 MG/ML 1 ML VIAL IV ONE; -HEPARIN SODIUM,PORCINE 5,000 UNIT/ML 1 ML VIAL SQ ONE; -HYDROmorphone 0.5 MG/0.5 ML SYRINGE IVP PRN; -MIDAZOLAM 2 MG/2 ML VIAL IV PRN; -ONDANSETRON 4 MG/2 ML VIAL IVP ONE; +PREMYELOGRAM MEDICATION REVIEW 1 EACH MISC PO NR; -SCOPOLAMINE 1.5MG/72HR PATCH TRANSDERM ONE
[2020-07-30] MEDS ORDERED: diazePAM 5 MG TAB PO PRN (08:39)
[2020-07-30] MEDS ORDERED: PREMYELOGRAM MEDICATION REVIEW 1 EACH MISC PO ONE ×2 (08:46→09:15)
[2020-07-30 08:57] VITALS: TEMP 98
--- NOTE | 2020-07-30 11:22 | FL ---
EXAMINATION TYPE: FL myelogram 2 or more regions DATE OF EXAM: 07/30/2020 COMPARISON: NONE HISTORY: M54.5 Lumbago,M54.6 Thoracic pain Unsuccessful myelogram given extensive patient hardware. 7 minutes 31 seconds of fluoroscopic time wa s utilized. A single image was obtained.
[2020-07-30 11:28] VITALS: BP 148/81; PULSE 80; RESP 16
== END 2020-07-30 11:00 | disposition home or self-care (01) ==
LOC: RADPROMAIN 07:52
PROVIDERS: ATTEND Orthopaedic Surgery
DX: T84.296A Other mechanical complication of internal fixation device of vertebrae, initial encounter (principal); S32.029A Unspecified fracture of second lumbar vertebra, initial encounter for closed fracture; I10 Essential (primary) hypertension; F17.210 Nicotine dependence, cigarettes, uncomplicated; F41.9 Anxiety disorder, unspecified; F32.9 Major depressive disorder, single episode, unspecified; Z98.1 Arthrodesis status; Z80.0 Family history of malignant neoplasm of digestive organs; Z80.3 Family history of malignant neoplasm of breast
CPT/HCPCS: 62305; J2001

== ENCOUNTER 2020-08-03 08:43 | Emergency (ER) | payer BC ==
[2020-08-03 08:51] VITALS: RESP 18
[2020-08-03] MEDS ORDERED: ONDANSETRON 4 MG/2 ML VIAL IVP STA (08:55)
[2020-08-03] MEDS ORDERED: SODIUM CHLORIDE 0.9% 1,000 ML IV STA (08:55)
[2020-08-03] MEDS ORDERED: SODIUM CHLORIDE 0.9% 500 ML 500 ML IV STA (08:55)
[2020-08-03] MEDS ORDERED: HYDROmorphone 1 MG/ML 1 ML SYRINGE IVP STA (08:55)
--- NOTE | 2020-08-03 08:59 | ED ---
Abdominal Pain HPI - General Chief Complaint: Abdominal Pain Stated Complaint: poss pancreatitis Time Seen by Provider: 08/03/20 08:46 Source: patient, EMS, RN notes reviewed Mode of arrival: EMS Limitations: no limitations - History of Present Illness Initial Comments: 64-year-old female presents emergency Department with chief complaint of abdominal discomfort. Patient has had recurrent issues with abdominal pain, history of pancreatitis. Patient i states it s feels very similar. Patient had nausea vomiting diarrhea and epigastric discomfort no chest pain or shortness breath no fevers or chills. Patient unable to keep any meds down to help her symptoms. Patient has no dysuria no hematuria no melena hematochezia no hematemesis or coffee-ground emesis - Related Data Home Medications Medication Instructions Recorded Confirmed Aspirin [Children's Aspirin] 81 mg PO DAILY 03/18/20 07/30/20 Atorvastatin [Lipitor] 40 mg PO HS 03/18/20 07/30/20 Ticagrelor [Brilinta] 90 mg PO BID 03/18/20 07/30/20 Albuterol Inhaler [Ventolin Hfa 2 puff INHALATION RT-Q4H PRN 06/21/20 07/30/20 Inhaler] Diphenox-Atrop 2.5-0.025 mg 1 - 2 tab PO QID PRN 06/21/20 07/30/20 [Lomotil] Mirtazapine [Remeron] 30 mg PO HS 06/21/20 07/30/20 amLODIPine BESYLATE/BENAZEPRIL 1 cap PO DAILY 06/21/20 07/30/20 [Lotrel 2.5-10 MG] Gabapentin [Neurontin] 100 mg PO TID 06/24/20 07/30/20 Acyclovir 800 mg PO BID 07/26/20 07/30/20 Cholecalciferol [Vitamin D3 (25 2,000 unit PO DAILY 07/26/20 07/30/20 Mcg = 1000 Iu)] Docusate Sodium [Dok] 100 mg PO BID 07/26/20 07/30/20 Famotidine 20 mg PO BID 07/26/20 07/30/20 Meloxicam [Mobic] 15 mg PO DAILY 07/26/20 07/30/20 Metoclopramide HCl [Reglan] 10 mg PO TID 07/26/20 07/30/20 Omeprazole 40 mg PO DAILY 07/26/20 07/30/20 Sodium Bicarbonate Tab 650 mg PO Q12H 07/26/20 07/30/20 bisacodyL [Dulcolax] 5 mg PO DAILY PRN 07/26/20 07/30/20 Zvgeazohcp-YSI-Ktsjpzt-Codeine 1 - 2 cap PO Q8H PRN 07/30/20 07/30/20 [Fiorinal w/Cod 40-495-48-30MG] Hydrocodone/Acetaminophen [[place] 1 tab PO Q4H PRN 07/30/20 07/30/20 10-325] Loperamide [Imodium] 2 mg PO QID PRN 07/30/20 07/30/20 Sucralfate [Carafate] 1 gm PO BID 07/30/20 07/30/20 traMADol HCl [Ultram] 50 mg PO Q4HR PRN 07/30/20 07/30/20 Previous Rx's Medication Instructions Recorded Ondansetron Odt [Zofran Odt] 4 mg PO Q8HR PRN #10 tab 08/03/20 Allergies Allergy/AdvReac Type Severity Reaction Status Date / Time No Known Allergies Allergy Verified 08/03/20 11:11 Review of Systems ROS Statement: Those systems with pertinent positive or pertinent negative responses have been documented in the HPI. ROS Other: All systems not noted in ROS Statement are negative. 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/hx fx l2, hx anemia History of Any Multi-Drug Resistant Organisms: None Reported Past Surgical History: Appendectomy, Back Surgery, Cholecystectomy, Orthopedic Surgery, Tonsillectomy Additional Past Surgical History / Comment(s): Pancreatic stents-since removed, 6 back surgeries with 2 fusions, right oophorectomy due to ectopic , EGD/colonoscopy, right leg alice inserted d/t fracture, Past Anesthesia/Blood Transfusion Reactions: No Reported Reaction Additional Past Anesthesia/Blood Transfusion Reaction / Comment(s): DIFF IV STARTS, Pt has received blood in past without reaction. Past Psychological History: No Psychological Hx Reported Smoking Status: Current some day smoker Past Alcohol Use History: None Reported Past Drug Use History: None Reported - Past Family History Father Family Medical History: Cancer Mother Family Medical History: Cancer, CVA/TIA Additional Family Medical History / Comment(s): breast and colon cancer. General Exam Limitations: no limitations General appearance: alert, in no apparent distress Head exam: Present: atraumatic, normocephalic, normal inspection Eye exam: Present: normal appearance, PERRL, EOMI. Absent: scleral icterus, conjunctival injection, periorbital swelling ENT exam: Present: normal exam, normal oropharynx, mucous membranes moist Neck exam: Present: normal inspection, full ROM. Absent: tenderness, meningismus, lymphadenopathy Respiratory exam: Present: normal lung sounds bilaterally. Absent: respiratory distress, wheezes, rales, rhonchi, stridor Cardiovascular Exam: Present: regular rate, normal rhythm, normal heart sounds. Absent: systolic murmur, diastolic murmur, rubs, gallop, clicks GI/Abdominal exam: Present: soft, tenderness (Moderate mid abdominal epigastric tenderness), normal bowel sounds. Absent: distended, guarding, rebound, rigid Back exam: Absent: CVA tenderness (R), CVA tenderness (L) Neurological exam: Present: alert, oriented X3 Skin exam: Present: warm, dry, intact, normal color. Absent: rash Course Vital Signs 08/03/20 08/03/20 08:45 11:00 Temperature 98.8 F Pulse Rate 98 90 Respiratory 18 18 Rate Blood Pressure 146/97 130/78 O2 Sat by Pulse 97 98 Oximetry Medical Decision Making - Medical Decision Making 64-year-old presented for abdominal pain patient has chronic abdominal pain, chronic pancreatitis. Patient has no severe elevation or change in last. Patient was hydrated, given antiemetics and pain control. Patient discharged in stable condition. - Lab Data Result diagrams: 08/03/20 11:06 08/03/20 11:06 Lab Results 08/03/20 08/03/20 08/03/20 Range/Units 10:40 11:06 11:06 WBC 7.2 (3.8-10.6) k/uL RBC 4.79 (3.80-5.40) m/uL Hgb 12.9 (11.4-16.0) gm/dL Hct 42.1 (34.0-46.0) % MCV 88.0 (80.0-100.0) fL MCH 27.0 (25.0-35.0) pg MCHC 30.6 L (31.0-37.0) g/dL RDW 15.6 H (11.5-15.5) % Plt Count 408 (150-450) k/uL MPV 7.3 Neutrophils % 69 % Lymphocytes % 24 % Monocytes % 4 % Eosinophils % 2 % Basophils % 0 % Neutrophils # 4.9 (1.3-7.7) k/uL Lymphocytes # 1.7 (1.0-4.8) k/uL Monocytes # 0.3 (0-1.0) k/uL Eosinophils # 0.1 (0-0.7) k/uL Basophils # 0.0 (0-0.2) k/uL Sodium 141 (137-145) mmol/L Potassium 4.0 (3.5-5.1) mmol/L Chloride 115 H (98-107) mmol/L Carbon Dioxide 18 L (22-30) mmol/L Anion Gap 8 mmol/L BUN 20 H (7-17) mg/dL Creatinine 0.69 (0.52-1.04) mg/dL Est GFR (CKD-EPI)AfAm >90 (>60 ml/min/1.73 sqM) Est GFR (CKD-EPI)NonAf >90 (>60 ml/min/1.73 sqM) Glucose 113 H (74-99) mg/dL Plasma Lactic Acid Derek (0.7-2.0) mmol/L Calcium 8.6 (8.4-10.2) mg/dL Total Bilirubin 0.2 (0.2-1.3) mg/dL AST 62 H (14-36) U/L ALT 54 H (4-34) U/L Alkaline Phosphatase 77 (38-126) U/L Total Protein 6.6 (6.3-8.2) g/dL Albumin 3.6 (3.5-5.0) g/dL Amylase 40 (30-110) U/L Lipase 150 (23-300) U/L Urine Color Yellow Urine Appearance Clear (Clear) Urine pH 6.0 (5.0-8.0) Ur Specific [place] 1.027 (1.001-1.035) Urine Protein 1+ H (Negative) Urine Glucose (UA) Trace H (Negative) Urine Ketones Negative (Negative) Urine Blood Small H (Negative) Urine Nitrite Negative (Negative) Urine Bilirubin Negative (Negative) Urine Urobilinogen <2.0 (<2.0) mg/dL Ur Leukocyte Esterase Negative (Negative) Urine RBC 7 H (0-5) /hpf Urine WBC 3 (0-5) /hpf Ur Squamous Epith Cells 3 (0-4) /hpf Calcium Oxalate Crystal Occasional H (None) /hpf Hyaline Casts 1 (0-2) /lpf Urine Mucus Many H (None) /hpf 08/03/20 Range/Units 11:06 WBC (3.8-10.6) k/uL RBC (3.80-5.40) m/uL Hgb (11.4-16.0) gm/dL Hct (34.0-46.0) % MCV (80.0-100.0) fL MCH (25.0-35.0) pg MCHC (31.0-37.0) g/dL RDW (11.5-15.5) % Plt Count (150-450) k/uL MPV Neutrophils % % Lymphocytes % % Monocytes % % Eosinophils % % Basophils % % Neutrophils # (1.3-7.7) k/uL Lymphocytes # (1.0-4.8) k/uL Monocytes # (0-1.0) k/uL Eosinophils # (0-0.7) k/uL Basophils # (0-0.2) k/uL Sodium (137-145) mmol/L Potassium (3.5-5.1) mmol/L Chloride (98-107) mmol/L Carbon Dioxide (22-30) mmol/L Anion Gap mmol/L BUN (7-17) mg/dL Creatinine (0.52-1.04) mg/dL Est GFR (CKD-EPI)AfAm (>60 ml/min/1.73 sqM) Est GFR (CKD-EPI)NonAf (>60 ml/min/1.73 sqM) Glucose (74-99) mg/dL Plasma Lactic Acid Derek 2.4 H* (0.7-2.0) mmol/L Calcium (8.4-10.2) mg/dL Total Bilirubin (0.2-1.3) mg/dL AST (14-36) U/L ALT (4-34) U/L Alkaline Phosphatase (38-126) U/L Total Protein (6.3-8.2) g/dL Albumin (3.5-5.0) g/dL Amylase (30-110) U/L Lipase (23-300) U/L Urine Color Urine Appearance (Clear) Urine pH (5.0-8.0) Ur Specific [place] (1.001-1.035) Urine Protein (Negative) Urine Glucose (UA) (Negative) Urine Ketones (Negative) Urine Blood (Negative) Urine Nitrite (Negative) Urine Bilirubin (Negative) Urine Urobilinogen (<2.0) mg/dL Ur Leukocyte Esterase (Negative) Urine RBC (0-5) /hpf Urine WBC (0-5) /hpf Ur Squamous Epith Cells (0-4) /hpf Calcium Oxalate Crystal (None) /hpf Hyaline Casts (0-2) /lpf Urine Mucus (None) /hpf Disposition Clinical Impression: Abdominal pain, Nausea & vomiting Disposition: HOME SELF-CARE Condition: Stable Instructions (If sedation given, give patient instructions): Abdominal Pain (ED) Additional Instructions: Please return to the Emergency Department if symptoms worsen or any other concerns. Prescriptions: Ondansetron Odt [Zofran Odt] 4 mg PO Q8HR PRN #10 tab PRN Reason: Nausea Is patient prescribed a controlled substance at d/c from ED?: No Referrals: Toi Chin [Primary Care Provider] - 1-2 days Time of Disposition: 12:03
[2020-08-03 11:29] LABS: Appearance,Urine Clear (Clear); Bilirubin,Urine Negative (Negative); Blood,Urine Small (Negative); Calcium Oxalate Crystals,Urine Occasional /hpf; Color,Urine Yellow; Glucose,Urine (UA) Trace (Negative); Hyaline Casts,Urine 1 /lpf (0-2); Ketones,Urine Negative (Negative); Leukocyte Esterase,Urine Negative (Negative); Mucus,Urine Many /hpf; Nitrite,Urine Negative (Negative); Protein,Urine 1+ (Negative); RBC,Urine 7 /hpf (0-5); Specific Gravity,Urine 1.027 (1.001-1.035); Squamous Epithelial Cell,Urine 3 /hpf (0-4); Urobilinogen,Urine <2.0 mg/dL (<2.0); WBC,Urine 3 /hpf (0-5)
[2020-08-03 11:33] LABS: ALT 54 U/L (4-34); AST 62 U/L (14-36); African American GFR (CKD) >90 (>60 ml/min/1.73 sqM); Albumin 3.6 g/dL (3.5-5.0); Alkaline Phosphatase 77 U/L (38-126); Amylase 40 U/L (30-110); Anion Gap 8 mmol/L; Blood Urea Nitrogen 20 mg/dL (7-17); Calcium 8.6 mg/dL (8.4-10.2); Carbon Dioxide 18 mmol/L (22-30); Chloride 115 mmol/L (98-107); Glucose 113 mg/dL (74-99); Lipase 150 U/L (23-300); Non-African American GFR(CKD) >90 (>60 ml/min/1.73 sqM); Sodium 141 mmol/L (137-145); Total Bilirubin 0.2 mg/dL (0.2-1.3); Total Protein 6.6 g/dL (6.3-8.2)
[2020-08-03 11:34] LABS: Basophils % (A) 0 %; Eosinophils # (A) 0.1 k/uL (0-0.7); Eosinophils % (A) 2 %; HCT 42.1 % (34.0-46.0); HGB 12.9 gm/dL (11.4-16.0); Lymphocytes # (A) 1.7 k/uL (1.0-4.8); Lymphocytes % (A) 24 %; MCHC 30.6 g/dL (31.0-37.0); Mean Platelet Volume 7.3; Monocytes # (A) 0.3 k/uL (0-1.0); Monocytes % (A) 4 %; Neutrophils # (A) 4.9 k/uL (1.3-7.7); Neutrophils % (A) 69 %; Platelet Count 408 k/uL (150-450); RBC 4.79 m/uL (3.80-5.40); RDW 15.6 % (11.5-15.5); WBC 7.2 k/uL (3.8-10.6)
[2020-08-03] MEDS ORDERED: HYDROmorphone 0.5 MG/0.5 ML SYRINGE IVP STA (11:53)
[2020-08-03] MEDS ORDERED: ACET/COD 300 MG/30 MG STARTER PACK 6 TAB BTL PO STA (12:04)
[2020-08-03 12:31] VITALS: BP 135/98; PULSE 77; TEMP 98
== END 2020-08-03 12:31 | disposition home or self-care (01) ==
LOC: EC 08:43
DX: K86.1 Other chronic pancreatitis (principal); J44.9 Chronic obstructive pulmonary disease, unspecified; K21.9 Gastro-esophageal reflux disease without esophagitis; I10 Essential (primary) hypertension; M19.90 Unspecified osteoarthritis, unspecified site; F17.200 Nicotine dependence, unspecified, uncomplicated; Z79.82 Long term (current) use of aspirin; Z79.899 Other long term (current) drug therapy; Z86.73 Personal history of transient ischemic attack (TIA), and cerebral infarction without residual deficits; Z90.49 Acquired absence of other specified parts of digestive tract; Z86.69 Personal history of other diseases of the nervous system and sense organs; Z90.721 Acquired absence of ovaries, unilateral
CPT/HCPCS: 36415; 80053; 82150; 83605; 83690; 85025; 81001; 99284; 96374; 96375; 96376; 96361; J2405; J1170 ×2

== ENCOUNTER 2020-08-17 09:36 | Emergency (ER) | payer BC ==
[2020-08-17 09:42] VITALS: RESP 18
[2020-08-17] MEDS ORDERED: SODIUM CHLORIDE 0.9% 1,000 ML IV STA ×2 (09:48)
[2020-08-17] MEDS ORDERED: HYDROmorphone 0.5 MG/0.5 ML SYRINGE IVP STA ×3 (09:48→13:05)
[2020-08-17] MEDS ORDERED: SODIUM CHLORIDE 0.9% 500 ML 500 ML IV STA (09:48)
--- NOTE | 2020-08-17 09:56 | ED ---
Abdominal Pain HPI - General Chief Complaint: Abdominal Pain Stated Complaint: Stomach pain,Diarrhea,Nausea Time Seen by Provider: 08/17/20 09:44 Source: patient Mode of arrival: ambulatory Limitations: physical limitation - History of Present Illness Initial Comments: 64-year-old female presenting today for chief complaint of possible pancreatitis. Patient states thinks she has pink or tenderness again she states she previously had stents her pancreas this and removed. Patient states that she has had frequent bouts of pancreatitis since. Patient states that the epigastric pain that radiates to the back. She endorses associated nausea vomiting and diarrhea. Patient states that her stool is green in color. Patient denies any chest pressure jaw pain and arm pain she denies any fevers cough congestion or additional concerns. pt states that the pain is identical to her typical bouts of pancreatitis. - Related Data Home Medications Medication Instructions Recorded Confirmed Atorvastatin [Lipitor] 40 mg PO HS 03/18/20 08/17/20 Ticagrelor [Brilinta] 90 mg PO BID 03/18/20 08/17/20 Albuterol Inhaler [Ventolin Hfa 2 puff INHALATION RT-Q4H PRN 06/21/20 08/17/20 Inhaler] amLODIPine BESYLATE/BENAZEPRIL 1 cap PO DAILY 06/21/20 08/17/20 [Lotrel 2.5-10 MG] Gabapentin [Neurontin] 100 mg PO TID 06/24/20 08/17/20 Cholecalciferol [Vitamin D3 (25 2,000 unit PO DAILY 07/26/20 08/17/20 Mcg = 1000 Iu)] Loperamide [Imodium] 2 mg PO QID PRN 07/30/20 08/17/20 traMADol HCl [Ultram] 100 mg PO Q4HR PRN 07/30/20 08/17/20 atenoloL [Atenolol] 25 mg PO DAILY 08/17/20 08/17/20 Allergies Allergy/AdvReac Type Severity Reaction Status Date / Time No Known Allergies Allergy Verified 08/17/20 10:20 Review of Systems ROS Statement: Those systems with pertinent positive or pertinent negative responses have been documented in the HPI. ROS Other: All systems not noted in ROS Statement are negative. 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/hx fx l2, hx anemia History of Any Multi-Drug Resistant Organisms: None Reported Past Surgical History: Appendectomy, Back Surgery, Cholecystectomy, Orthopedic Surgery, Tonsillectomy Additional Past Surgical History / Comment(s): Pancreatic stents-since removed, 6 back surgeries with 2 fusions, right oophorectomy due to ectopic , EGD/colonoscopy, right leg alice inserted d/t fracture, Past Anesthesia/Blood Transfusion Reactions: No Reported Reaction Additional Past Anesthesia/Blood Transfusion Reaction / Comment(s): DIFF IV STARTS, Pt has received blood in past without reaction. Past Psychological History: No Psychological Hx Reported Smoking Status: Current every day smoker Past Alcohol Use History: None Reported Past Drug Use History: None Reported - Past Family History Father Family Medical History: Cancer Mother Family Medical History: Cancer, CVA/TIA Additional Family Medical History / Comment(s): breast and colon cancer. General Exam - General Exam Comments Initial Comments: General: The patient is awake and alert, in no distress Eye: +3 mm pupils are equal, round and reactive to light, extra-ocular movements are intact. No nystagmus. There is normal conjunctiva bilaterally. No signs of icterus. Ears, nose, mouth and throat: There are moist mucous membranes and no oral lesions. Neck: The neck is supple, there is no tenderness or JVD. Cardiovascular: There is a regular rate and rhythm. No murmur, rub or gallop is appreciated. Respiratory: Lungs are clear to auscultation, respirations are non-labored, breath sounds are equal. No wheezes, stridor, rales, or rhonchi. Gastrointestinal: Soft, non-distended, epigastric tenderness to palpation of the abdomen, abdomen without masses or organomegaly noted. There is no rebound or guarding present. Musculoskeletal: Normal ROM, no tenderness. Strength 5/5. Sensation intact. Ra dial pulses equal bilaterally 2+. Neurological: A&O x 3. CN II-XII intact grossly, There are no obvious motor or sensory deficits. Coordination appears grossly intact. Speech is normal. Skin: Skin is warm and dry and no rashes or lesions are noted. Psychiatric: Cooperative, appropriate mood & affect, normal judgment. Limitations: physical limitation Course Vital Signs 08/17/20 08/17/20 09:40 12:40 Temperature 99.3 F Pulse Rate 69 52 L Respiratory 18 18 Rate Blood Pressure 176/81 177/76 O2 Sat by Pulse 97 100 Oximetry Medical Decision Making - Medical Decision Making Lactic elevated, hx n/v/d. hx of chronic pancreatitis. patient does not appear toxic, CT SBO vs ileus, pt states that she can eat/drink without vomiting at times and has been passing stool per rectum after discussing case with attending Dr. Cedeño who lean towards ddx of ileus-pt passed pO challenge in ER . I feel patient symptoms most likely secondary to chronic pancreatitis. patient is agre eable to discharge with symptomic treatment. hydrated in ER. No episodes of vomiting. pt gurdeep lbe discharged wtih strict return for persistent symptoms, inability to tolerate oral intake or increasing pain. pt discharged appearing well, pt states she wants to be discharged.. - Lab Data Result diagrams: 08/17/20 09:54 08/17/20 09:54 Lab Results 08/17/20 08/17/20 08/17/20 Range/Units 09:54 09:54 09:54 WBC 7.8 (3.8-10.6) k/uL RBC 4.95 (3.80-5.40) m/uL Hgb 14.1 (11.4-16.0) gm/dL Hct 42.9 (34.0-46.0) % MCV 86.6 (80.0-100.0) fL MCH 28.5 (25.0-35.0) pg MCHC 32.8 (31.0-37.0) g/dL RDW 14.7 (11.5-15.5) % Plt Count 314 (150-450) k/uL MPV 9.0 Neutrophils % 80 % Lymphocytes % 14 % Monocytes % 3 % Eosinophils % 2 % Basophils % 0 % Neutrophils # 6.2 (1.3-7.7) k/uL Lymphocytes # 1.1 (1.0-4.8) k/uL Monocytes # 0.2 (0-1.0) k/uL Eosinophils # 0.1 (0-0.7) k/uL Basophils # 0.0 (0-0.2) k/uL Sodium 138 (137-145) mmol/L Potassium 3.9 (3.5-5.1) mmol/L Chloride 105 (98-107) mmol/L Carbon Dioxide 21 L (22-30) mmol/L Anion Gap 12 mmol/L BUN 12 (7-17) mg/dL Creatinine 0.81 (0.52-1.04) mg/dL Est GFR (CKD-EPI)AfAm 89 (>60 ml/min/1.73 sqM) Est GFR (CKD-EPI)NonAf 78 (>60 ml/min/1.73 sqM) Glucose 283 H (74-99) mg/dL Lactic Ac Sepsis Rflx Plasma Lactic Acid Derek 3.2 H* (0.7-2.0) mmol/L Calcium 9.8 (8.4-10.2) mg/dL Total Bilirubin 0.6 (0.2-1.3) mg/dL AST 28 (14-36) U/L ALT 24 (4-34) U/L Alkaline Phosphatase 68 (38-126) U/L Troponin I (0.000-0.034) ng/mL Total Protein 7.6 (6.3-8.2) g/dL Albumin 4.5 (3.5-5.0) g/dL Amylase 35 (30-110) U/L Lipase 169 (23-300) U/L Urine Color Urine Appearance (Clear) Urine pH (5.0-8.0) Ur Specific [place] (1.001-1.035) Urine Protein (Negative) Urine Glucose (UA) (Negative) Urine Ketones (Negative) Urine Blood (Negative) Urine Nitrite (Negative) Urine Bilirubin (Negative) Urine Urobilinogen (<2.0) mg/dL Ur Leukocyte Esterase (Negative) Urine RBC (0-5) /hpf Urine WBC (0-5) /hpf Ur Squamous Epith Cells (0-4) /hpf Hyaline Casts (0-2) /lpf Urine Mucus (None) /hpf 08/17/20 08/17/20 08/17/20 Range/Units 09:54 10:44 11:41 WBC (3.8-10.6) k/uL RBC (3.80-5.40) m/uL Hgb (11.4-16.0) gm/dL Hct (34.0-46.0) % MCV (80.0-100.0) fL MCH (25.0-35.0) pg MCHC (31.0-37.0) g/dL RDW (11.5-15.5) % Plt Count (150-450) k/uL MPV Neutrophils % % Lymphocytes % % Monocytes % % Eosinophils % % Basophils % % Neutrophils # (1.3-7.7) k/uL Lymphocytes # (1.0-4.8) k/uL Monocytes # (0-1.0) k/uL Eosinophils # (0-0.7) k/uL Basophils # (0-0.2) k/uL Sodium (137-145) mmol/L Potassium (3.5-5.1) mmol/L Chloride (98-107) mmol/L Carbon Dioxide (22-30) mmol/L Anion Gap mmol/L BUN (7-17) mg/dL Creatinine (0.52-1.04) mg/dL Est GFR (CKD-EPI)AfAm (>60 ml/min/1.73 sqM) Est GFR (CKD-EPI)NonAf (>60 ml/min/1.73 sqM) Glucose (74-99) mg/dL Lactic Ac Sepsis Rflx Y Plasma Lactic Acid Derek (0.7-2.0) mmol/L Calcium (8.4-10.2) mg/dL Total Bilirubin (0.2-1.3) mg/dL AST (14-36) U/L ALT (4-34) U/L Alkaline Phosphatase (38-126) U/L Troponin I <0.012 (0.000-0.034) ng/mL Total Protein (6.3-8.2) g/dL Albumin (3.5-5.0) g/dL Amylase (30-110) U/L Lipase (23-300) U/L Urine Color Yellow Urine Appearance Clear (Clear) Urine pH 6.0 (5.0-8.0) Ur Specific [place] 1.015 (1.001-1.035) Urine Protein Trace H (Negative) Urine Glucose (UA) 2+ H (Negative) Urine Ketones Negative (Negative) Urine Blood Small H (Negative) Urine Nitrite Negative (Negative) Urine Bilirubin Negative (Negative) Urine Urobilinogen <2.0 (<2.0) mg/dL Ur Leukocyte Esterase Small H (Negative) Urine RBC 3 (0-5) /hpf Urine WBC 2 (0-5) /hpf Ur Squamous Epith Cells 3 (0-4) /hpf Hyaline Casts 1 (0-2) /lpf Urine Mucus Few H (None) /hpf Disposition Clinical Impression: Epigastric pain, Ileus Disposition: HOME SELF-CARE Condition: Good Instructions (If sedation given, give patient instructions): Abdominal Pain (ED ) Additional Instructions: Please use medication as discussed. Please follow-up with family doctor in the next 2 days. Please return to emergency room if the symptoms increase or worsen or for any other concerns. Is patient prescribed a controlled substance at d/c from ED?: No Referrals: Toi Chin [Primary Care Provider] - 1-2 days Boaz Simpson MD [STAFF PHYSICIAN] - 1-2 days Time of Disposition: 13:03
[2020-08-17 10:22] LABS: Basophils % (A) 0 %; Eosinophils # (A) 0.1 k/uL (0-0.7); Eosinophils % (A) 2 %; HCT 42.9 % (34.0-46.0); HGB 14.1 gm/dL (11.4-16.0); Lymphocytes # (A) 1.1 k/uL (1.0-4.8); Lymphocytes % (A) 14 %; MCH 28.5 pg (25.0-35.0); MCHC 32.8 g/dL (31.0-37.0); MCV 86.6 fL (80.0-100.0); Monocytes # (A) 0.2 k/uL (0-1.0); Monocytes % (A) 3 %; Neutrophils # (A) 6.2 k/uL (1.3-7.7); Neutrophils % (A) 80 %; Platelet Count 314 k/uL (150-450); RBC 4.95 m/uL (3.80-5.40); RDW 14.7 % (11.5-15.5); WBC 7.8 k/uL (3.8-10.6)
[2020-08-17 10:32] LABS: Albumin 4.5 g/dL (3.5-5.0); Calcium 9.8 mg/dL (8.4-10.2); Total Bilirubin 0.6 mg/dL (0.2-1.3); Total Protein 7.6 g/dL (6.3-8.2)
[2020-08-17 10:42] LABS: Potassium 3.9 mmol/L (3.5-5.1)
[2020-08-17 12:20] LABS: Appearance,Urine Clear (Clear); Bilirubin,Urine Negative (Negative); Blood,Urine Small (Negative); Color,Urine Yellow; Glucose,Urine (UA) 2+ (Negative); Hyaline Casts,Urine 1 /lpf (0-2); Ketones,Urine Negative (Negative); Leukocyte Esterase,Urine Small (Negative); Mucus,Urine Few /hpf; Nitrite,Urine Negative (Negative); Protein,Urine Trace (Negative); RBC,Urine 3 /hpf (0-5); Specific Gravity,Urine 1.015 (1.001-1.035); Squamous Epithelial Cell,Urine 3 /hpf (0-4); Urobilinogen,Urine <2.0 mg/dL (<2.0); WBC,Urine 2 /hpf (0-5)
--- NOTE | 2020-08-17 12:26 | CT ---
EXAMINATION TYPE: CT abdomen pelvis w con DATE OF EXAM: 08/17/2020 COMPARISON: 06/13/2020 HISTORY: Abd pain CT DLP: 1344.6 mGycm Automated exposure control for dose reduction was used. CONTRAST: CT scan of the abdomen pelvis is performed with IV Contrast, patient injected with 100 mL of Isovue 3 00. FINDINGS- LUNG BASES- No significant abnormality is appreciated. LIVER/GB-there is intrahepatic and extra hepatic biliary dilation with postcholecystectomy changes.. PANCREAS-there is pancreatic ductal dilation with numerous pancreatic calcifications suggestive of ch ronic pancreatitis situs. Recommend follow-up MRI to assess the pancreas exclude intraductal abnormal ity. . SPLEEN- No gross abnormality is seen. ADRENALS- No gross abnormality is seen. KIDNEYS/BLADDER-simple appearing bilateral renal cysts.. BOWEL-multiple dilated small bowel loops which is new from the prior exam. Changes of diverticulosis noted. Air is seen within the rectum.. Postsurgical change involving the epigastrium. LYMPH NODES- No greater than 1cm abdominal or pelvic lymph nodes areappreciated. OSSEOUS STRUCTURES-postoperative change involving the vertebral column with additional evidence of ve rtebroplasty. Multilevel atrophic and degenerative change. Wedge deformity appears chronic in the upp er lumbar spine.. OTHER- atherosclerotic change aorta with no evidence of aneurysm . There is soft tissue nodule seen adjacent to the right pubic ramus measuring 1.8 cm. IMPRESSION- 1. Multiple dilated small bowel loops correlate for symptoms small bowel obstruction versus ileus. 2. Changes of chronic pancreatitis with both intrahepatic and pancreatic ductal dilation. Recommend s hort-term follow-up MRI of the pancreas to exclude intraductal lesion. However, findings are most lik talita secondary to ductal ectasia and chronic pancreatitis. 3. There is soft tissue nodule adjacent to the right pubic ramus measuring 1.8 cm was not seen on the exam thousand 19. PET scan could be obtained for further evaluation.
[2020-08-17 12:41] VITALS: PULSE 52
[2020-08-17] MEDS ORDERED: ACET/COD 300 MG/30 MG STARTER PACK 6 TAB BTL PO STA (12:56)
[2020-08-17 13:19] VITALS: BP 177/97; TEMP 98.7
== END 2020-08-17 13:23 | disposition home or self-care (01) ==
LOC: EC 09:36
DX: K56.7 Ileus, unspecified (principal); R74.02 Elevation of levels of lactic acid dehydrogenase [LDH]; I10 Essential (primary) hypertension; J44.9 Chronic obstructive pulmonary disease, unspecified; F17.200 Nicotine dependence, unspecified, uncomplicated; G43.909 Migraine, unspecified, not intractable, without status migrainosus; Z79.899 Other long term (current) drug therapy; Z86.73 Personal history of transient ischemic attack (TIA), and cerebral infarction without residual deficits; Z90.89 Acquired absence of other organs; Z90.49 Acquired absence of other specified parts of digestive tract
CPT/HCPCS: 36415; 93005; 80053; 82150; 83605; 83690; 84484; 85025; 81001; 74177; 99285; 96374; 96376 ×2; 96361 ×3; J1170; Q9967

== ENCOUNTER 2020-08-18 10:40 | Emergency (ER) | payer BC ==
[2020-08-18 10:57] VITALS: RESP 18
[2020-08-18] MEDS ORDERED: SODIUM CHLORIDE 0.9% 1,000 ML IV STA (11:23)
[2020-08-18] MEDS ORDERED: ONDANSETRON 4 MG/2 ML VIAL IVP STA (11:27)
[2020-08-18] MEDS ORDERED: MORPHINE SULFATE 4 MG/ML SYRINGE IVP STA (11:27)
--- NOTE | 2020-08-18 11:30 | ED ---
General Adult HPI - General Chief complaint: Abdominal Pain Stated complaint: Abd Pain Time Seen by Provider: 08/18/20 11:10 Source: patient, RN notes reviewed Mode of arrival: ambulatory Limitations: no limitations - History of Present Illness Initial comments: 64-year-old female with a past medical history of hiatal hernia, chronic pancreatitis, hypertension, COPD, CVA, GERD well known to this emergency department presents to the emergency room for "pancreatitis flareup." patient reports that she has had a recurrence of her chronic upper abdominal pain in the past couple days. States she has had nausea vomiting. Patient states she was seen in the emergency room yesterday and did feel better. States the offered to keep her in the hospital but she wanted to go home. Patient states the pain again worsened last night. Patient is requesting pain medication and fluids. She requests not to receive Toradol.Patient has no other complaints at this time including shortness of breath, chest pain, headache, or visual changes. - Related Data Home Medications Medication Instructions Recorded Confirmed Atorvastatin [Lipitor] 40 mg PO HS 03/18/20 08/17/20 Ticagrelor [Brilinta] 90 mg PO BID 03/18/20 08/17/20 Albuterol Inhaler [Ventolin Hfa 2 puff INHALATION RT-Q4H PRN 06/21/20 08/17/20 Inhaler] amLODIPine BESYLATE/BENAZEPRIL 1 cap PO DAILY 06/21/20 08/17/20 [Lotrel 2.5-10 MG] Gabapentin [Neurontin] 100 mg PO TID 06/24/20 08/17/20 Cholecalciferol [Vitamin D3 (25 2,000 unit PO DAILY 07/26/20 08/17/20 Mcg = 1000 Iu)] Loperamide [Imodium] 2 mg PO QID PRN 07/30/20 08/17/20 traMADol HCl [Ultram] 100 mg PO Q4HR PRN 07/30/20 08/17/20 atenoloL [Atenolol] 25 mg PO DAILY 08/17/20 08/17/20 Allergies Allergy/AdvReac Type Severity Reaction Status Date / Time No Known Allergies Allergy Verified 08/18/20 10:55 Review of Systems ROS Statement: Those systems with pertinent positive or pertinent negative responses have been documented in the HPI. ROS Other: All systems not noted in ROS Statement are negative. 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/hx fx l2, hx anemia, pancreatits History of Any Multi-Drug Resistant Organisms: None Reported Past Surgical History: Appendectomy, Back Surgery, Cholecystectomy, Orthopedic Surgery, Tonsillectomy Additional Past Surgical History / Comment(s): Pancreatic stents-since removed, 6 back surgeries with 2 fusions, right oophorectomy due to ectopic , EGD/colonoscopy, right leg alice inserted d/t fracture, Past Anesthesia/Blood Transfusion Reactions: No Reported Reaction Additional Past Anesthesia/Blood Transfusion Reaction / Comment(s): DIFF IV STARTS, Pt has received blood in past without reaction. Past Psychological History: No Psychological Hx Reported Smoking Status: Current every day smoker Past Alcohol Use History: None Reported Past Drug Use History: None Reported - Past Family History Father Family Medical History: Cancer Mother Family Medical History: Cancer, CVA/TIA Additional Family Medical History / Comment(s): breast and colon cancer. General Exam Limitations: no limitations General appearance: alert, in no apparent distress Head exam: Present: atraumatic, normocephalic, normal inspection Eye exam: Present: normal appearance, PERRL, EOMI. Absent: scleral icterus, conjunctival injection, periorbital swelling ENT exam: Present: normal exam, mucous membranes moist Neck exam: Present: normal inspection, full ROM. Absent: tenderness, meningismus, lymphadenopathy Respiratory exam: Present: normal lung sounds bilaterally. Absent: respiratory distress, wheezes, rales, rhonchi, stridor Cardiovascular Exam: Present: regular rate, normal rhythm, normal heart sounds. Absent: systolic murmur, diastolic murmur, rubs, gallop, clicks GI/Abdominal exam: Present: soft, tenderness (Epigastric tenderness, no lower abdominal tenderness), normal bowel sounds. Absent: distended, guarding, rebound, rigid Neurological exam: Present: alert Course Vital Signs 08/18/20 10:55 Temperature 99 F Pulse Rate 67 Respiratory 18 Rate Blood Pressure 163/79 O2 Sat by Pulse 99 Oximetry Medical Decision Making - Medical Decision Making Patient is well-appearing. No vomiting in the emergency room. Vitals are stable. CBC CMP unremarkable. Amylase and lipase are within normal limits. Lactic acid is 1.6 which is improved yesterday. Urinalysis unremarkable. Patient did have a CAT scan yesterday that showed multiple dilated small bowel loops correlate for symptoms of small bowel obstruction versus ileus. Patient was having diarrhea yesterday. She has not had any vomiting while in the emerge ncy room and is passing gas. X-ray was obtained which is nonobstructive. At this time there is no evidence for bowel obstruction. Patient will also follow up for findings including changes likely related to chronic pancreatitis as well as soft tissue nodule on the right pubic ramus with her primary care doctor. Pain is likely related to patient's chronic pancreatitis as this feels consistent Patient tolerating by mouth intake. Patient is requesting discharge home. She states she does not want to stay in the hospital again. She will return here for any worsening symptoms. - Lab Data Result diagrams: 08/18/20 11:36 08/18/20 11:36 Lab Results 08/18/20 08/18/20 08/18/20 Range/Units 11:36 11:36 11:36 WBC 7.1 (3.8-10.6) k/uL RBC 5.00 (3.80-5.40) m/uL Hgb 14.1 (11.4-16.0) gm/dL Hct 42.8 (34.0-46.0) % MCV 85.5 (80.0-100.0) fL MCH 28.3 (25.0-35.0) pg MCHC 33.1 (31.0-37.0) g/dL RDW 14.8 (11.5-15.5) % Plt Count 331 (150-450) k/uL MPV 7.2 Neutrophils % 49 % Lymphocytes % 41 % Monocytes % 5 % Eosinophils % 2 % Basophils % 1 % Neutrophils # 3.5 (1.3-7.7) k/uL Lymphocytes # 2.9 (1.0-4.8) k/uL Monocytes # 0.4 (0-1.0) k/uL Eosinophils # 0.1 (0-0.7) k/uL Basophils # 0.0 (0-0.2) k/uL Sodium 140 (137-145) mmol/L Potassium 3.7 (3.5-5.1) mmol/L Chloride 106 (98-107) mmol/L Carbon Dioxide 24 (22-30) mmol/L Anion Gap 10 mmol/L BUN 6 L (7-17) mg/dL Creatinine 0.66 (0.52-1.04) mg/dL Est GFR (CKD-EPI)AfAm >90 (>60 ml/min/1.73 sqM) Est GFR (CKD-EPI)NonAf >90 (>60 ml/min/1.73 sqM) Glucose 121 H (74-99) mg/dL Plasma Lactic Acid Derek (0.7-2.0) mmol/L Calcium 10.1 (8.4-10.2) mg/dL Total Bilirubin 0.4 (0.2-1.3) mg/dL AST 25 (14-36) U/L ALT 24 (4-34) U/L Alkaline Phosphatase 101 (38-126) U/L Total Protein 8.3 H (6.3-8.2) g/dL Albumin 4.9 (3.5-5.0) g/dL Amylase 45 (30-110) U/L Lipase 69 (23-300) U/L Urine Color Light Yellow Urine Appearance Cloudy H (Clear) Urine pH 6.0 (5.0-8.0) Ur Specific [place] 1.008 (1.001-1.035) Urine Protein Trace H (Negative) Urine Glucose (UA) Negative (Negative) Urine Ketones Negative (Negative) Urine Blood Small H (Negative) Urine Nitrite Negative (Negative) Urine Bilirubin Negative (Negative) Urine Urobilinogen <2.0 (<2.0) mg/dL Ur Leukocyte Esterase Moderate H (Negative) Urine RBC 5 (0-5) /hpf Urine WBC 4 (0-5) /hpf Ur Squamous Epith Cells 1 (0-4) /hpf Urine Bacteria Rare H (None) /hpf Hyaline Casts 4 H (0-2) /lpf Urine Mucus Rare H (None) /hpf 12/16/20 Range/Units 11:36 WBC (3.8-10.6) k/uL RBC (3.80-5.40) m/uL Hgb (11.4-16.0) gm/dL Hct (34.0-46.0) % MCV (80.0-100.0) fL MCH (25.0-35.0) pg MCHC (31.0-37.0) g/dL RDW (11.5-15.5) % Plt Count (150-450) k/uL MPV Neutrophils % % Lymphocytes % % Monocytes % % Eosinophils % % Basophils % % Neutrophils # (1.3-7.7) k/uL Lymphocytes # (1.0-4.8) k/uL Monocytes # (0-1.0) k/uL Eosinophils # (0-0.7) k/uL Basophils # (0-0.2) k/uL Sodium (137-145) mmol/L Potassium (3.5-5.1) mmol/L Chloride (98-107) mmol/L Carbon Dioxide (22-30) mmol/L Anion Gap mmol/L BUN (7-17) mg/dL Creatinine (0.52-1.04) mg/dL Est GFR (CKD-EPI)AfAm (>60 ml/min/1.73 sqM) Est GFR (CKD-EPI)NonAf (>60 ml/min/1.73 sqM) Glucose (74-99) mg/dL Plasma Lactic Acid Derek 1.6 (0.7-2.0) mmol/L Calcium (8.4-10.2) mg/dL Total Bilirubin (0.2-1.3) mg/dL AST (14-36) U/L ALT (4-34) U/L Alkaline Phosphatase (38-126) U/L Total Protein (6.3-8.2) g/dL Albumin (3.5-5.0) g/dL Amylase (30-110) U/L Lipase (23-300) U/L Urine Color Urine Appearance (Clear) Urine pH (5.0-8.0) Ur Specific [place] (1.001-1.035) Urine Protein (Negative) Urine Glucose (UA) (Negative) Urine Ketones (Negative) Urine Blood (Negative) Urine Nitrite (Negative) Urine Bilirubin (Negative) Urine Urobilinogen (<2.0) mg/dL Ur Leukocyte Esterase (Negative) Urine RBC (0-5) /hpf Urine WBC (0-5) /hpf Ur Squamous Epith Cells (0-4) /hpf Urine Bacteria (None) /hpf Hyaline Casts (0-2) /lpf Urine Mucus (None) /hpf Disposition Clinical Impression: Chronic abdominal pain Disposition: HOME SELF-CARE Condition: Good Instructions (If sedation given, give patient instructions): Abdominal Pain (ED) Additional Instructions: Please follow-up with your doctor in one to 2 days. Review CAT scan results with your doctor. If pain or symptoms worsen return to the emergency room. Is patient prescribed a controlled substance at d/c from ED?: No Referrals: Toi Chin [Primary Care Provider] - 1-2 days Time of Disposition: 13:20
[2020-08-18] MEDS ORDERED: MORPHINE SULFATE 4 MG/ML SYRINGE IM STA (11:55)
[2020-08-18] MEDS ORDERED: ONDANSETRON 4 MG/2 ML VIAL IM STA (11:55)
[2020-08-18 12:08] LABS: Basophils % (A) 1 %; Eosinophils # (A) 0.1 k/uL (0-0.7); Eosinophils % (A) 2 %; HCT 42.8 % (34.0-46.0); HGB 14.1 gm/dL (11.4-16.0); Lymphocytes # (A) 2.9 k/uL (1.0-4.8); Lymphocytes % (A) 41 %; MCH 28.3 pg (25.0-35.0); MCHC 33.1 g/dL (31.0-37.0); MCV 85.5 fL (80.0-100.0); Mean Platelet Volume 7.2; Monocytes # (A) 0.4 k/uL (0-1.0); Monocytes % (A) 5 %; Neutrophils # (A) 3.5 k/uL (1.3-7.7); Neutrophils % (A) 49 %; Platelet Count 331 k/uL (150-450); RDW 14.8 % (11.5-15.5); WBC 7.1 k/uL (3.8-10.6)
[2020-08-18 12:18] LABS: Appearance,Urine Cloudy (Clear); Bacteria,Urine Rare /hpf; Bilirubin,Urine Negative (Negative); Blood,Urine Small (Negative); Color,Urine Light Yellow; Glucose,Urine (UA) Negative (Negative); Hyaline Casts,Urine 4 /lpf (0-2); Ketones,Urine Negative (Negative); Leukocyte Esterase,Urine Moderate (Negative); Mucus,Urine Rare /hpf; Nitrite,Urine Negative (Negative); Protein,Urine Trace (Negative); RBC,Urine 5 /hpf (0-5); Specific Gravity,Urine 1.008 (1.001-1.035); Squamous Epithelial Cell,Urine 1 /hpf (0-4); Urobilinogen,Urine <2.0 mg/dL (<2.0); WBC,Urine 4 /hpf (0-5)
[2020-08-18 12:20] LABS: ALT 24 U/L (4-34); AST 25 U/L (14-36); African American GFR (CKD) >90 (>60 ml/min/1.73 sqM); Albumin 4.9 g/dL (3.5-5.0); Alkaline Phosphatase 101 U/L (38-126); Amylase 45 U/L (30-110); Anion Gap 10 mmol/L; Blood Urea Nitrogen 6 mg/dL (7-17); Calcium 10.1 mg/dL (8.4-10.2); Carbon Dioxide 24 mmol/L (22-30); Chloride 106 mmol/L (98-107); Glucose 121 mg/dL (74-99); Lipase 69 U/L (23-300); Non-African American GFR(CKD) >90 (>60 ml/min/1.73 sqM); Potassium 3.7 mmol/L (3.5-5.1); Sodium 140 mmol/L (137-145); Total Bilirubin 0.4 mg/dL (0.2-1.3); Total Protein 8.3 g/dL (6.3-8.2)
--- NOTE | 2020-08-18 12:45 | XR ---
EXAMINATION TYPE: XR KUB DATE OF EXAM: 08/18/2020 COMPARISON: NONE HISTORY: Pain TECHNIQUE: Single supine KUB image of the abdomen is obtained FINDINGS: Small bowel demonstrates no evidence for dilatation or air fluid levels. Gas and fecal material is seen in non-distended colon. No convincing evidence for pneumoperitoneum. No unusual calcifications. The lung bases are clear. Extensive postoperative changes of the lumbar spine. IMPRESSION: 1. Overall nonobstructive bowel gas pattern.
[2020-08-18] MEDS ORDERED: ACET/COD 300 MG/30 MG STARTER PACK 6 TAB BTL PO STA (13:21)
[2020-08-18] MEDS ORDERED: MORPHINE SULFATE 2 MG/ML SYRINGE IVP STA (13:28)
[2020-08-18 13:38] VITALS: BP 158/72; PULSE 71; TEMP 98.2
== END 2020-08-18 13:35 | disposition home or self-care (01) ==
LOC: EC 10:40
DX: R10.10 Upper abdominal pain, unspecified (principal); R11.2 Nausea with vomiting, unspecified; R19.7 Diarrhea, unspecified; G89.29 Other chronic pain; J44.9 Chronic obstructive pulmonary disease, unspecified; K21.9 Gastro-esophageal reflux disease without esophagitis; I10 Essential (primary) hypertension; Z79.899 Other long term (current) drug therapy; Z79.02 Long term (current) use of antithrombotics/antiplatelets; F17.200 Nicotine dependence, unspecified, uncomplicated; Z86.73 Personal history of transient ischemic attack (TIA), and cerebral infarction without residual deficits; Z90.49 Acquired absence of other specified parts of digestive tract; Z90.721 Acquired absence of ovaries, unilateral; Z86.14 Personal history of Methicillin resistant Staphylococcus aureus infection
CPT/HCPCS: 36415; 80053; 82150; 83605; 83690; 85025; 81001; 74018; 99284; 96374; 96372 ×2; J2270 ×2; J2405

== ENCOUNTER 2020-08-20 07:36 | Emergency (ER) | payer BC ==
[2020-08-20 07:40] VITALS: RESP 16
[2020-08-20] MEDS ORDERED: SODIUM CHLORIDE 0.9% 1,000 ML IV STA (07:43)
[2020-08-20] MEDS ORDERED: ONDANSETRON 4 MG/2 ML VIAL IVP STA (07:43)
[2020-08-20] MEDS ORDERED: HYDROmorphone 1 MG/ML 1 ML SYRINGE IVP STA (07:43)
[2020-08-20] MEDS ORDERED: SODIUM CHLORIDE 0.9% 500 ML 500 ML IV STA (07:43)
--- NOTE | 2020-08-20 07:50 | ED ---
Abdominal Pain HPI - General Chief Complaint: Abdominal Pain Stated Complaint: stomach pain,vomitting, diarrhea Time Seen by Provider: 08/20/20 07:43 Source: patient, RN notes reviewed Mode of arrival: wheelchair Limitations: no limitations - History of Present Illness Initial Comments: 64-year-old female presents emergency department she went abdominal pain. This is pain from her chronic pancreatitis. She's had increased pain last week or so. Patient had several ER visits. Patient states that she's had prior stenting and states that GI does not have much of her that she's can have chronic pain issues. Patient had increased nausea vomiting. Patient agrees CT which showed ileus. Patient still having regular bowel movements no dysuria no hematuria patient is scheduled for CT of her lumbar spine today and states that she is scheduled for back surgery in September. - Related Data Home Medications Medication Instructions Recorded Confirmed Atorvastatin [Lipitor] 40 mg PO HS 03/18/20 08/20/20 Ticagrelor [Brilinta] 90 mg PO BID 03/18/20 08/20/20 Albuterol Inhaler [Ventolin Hfa 2 puff INHALATION RT-Q4H PRN 06/21/20 08/20/20 Inhaler] amLODIPine BESYLATE/BENAZEPRIL 1 cap PO DAILY 06/21/20 08/20/20 [Lotrel 2.5-10 MG] Gabapentin [Neurontin] 100 mg PO TID 06/24/20 08/20/20 Cholecalciferol [Vitamin D3 (25 2,000 unit PO DAILY 07/26/20 08/20/20 Mcg = 1000 Iu)] Loperamide [Imodium] 2 mg PO QID PRN 07/30/20 08/20/20 traMADol HCl [Ultram] 100 mg PO Q4HR PRN 07/30/20 08/20/20 atenoloL [Atenolol] 25 mg PO DAILY 08/17/20 08/20/20 Allergies Allergy/AdvReac Type Severity Reaction Status Date / Time No Known Allergies Allergy Verified 08/20/20 08:42 Review of Systems ROS Statement: Those systems with pertinent positive or pertinent negative responses have been documented in the HPI. ROS Other: All systems not noted in ROS Statement are negative. 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/hx fx l2, hx anemia, pancreatits History of Any Multi-Drug Resistant Organisms: None Reported Past Surgical History: Appendectomy, Back Surgery, Cholecystectomy, Orthopedic Surgery, Tonsillectomy Additional Past Surgical History / Comment(s): Pancreatic stents-since removed, 6 back surgeries with 2 fusions, right oophorectomy due to ectopic , EGD/colonoscopy, right leg alice inserted d/t fracture, Past Anesthesia/Blood Transfusion Reactions: No Reported Reaction Additional Past Anesthesia/Blood Transfusion Reaction / Comment(s): DIFF IV STARTS, Pt has received blood in past without reaction. Past Psychological History: No Psychological Hx Reported Smoking Status: Current every day smoker Past Alcohol Use History: None Reported Past Drug Use History: None Reported - Past Family History Father Family Medical History: Cancer Mother Family Medical History: Cancer, CVA/TIA Additional Family Medical History / Comment(s): breast and colon cancer. General Exam Limitations: no limitations General appearance: alert, in no apparent distress Head exam: Present: atraumatic, normocephalic, normal inspection Neck exam: Present: normal inspection, full ROM. Absent: tenderness, meningismus, lymphadenopathy Respiratory exam: Present: normal lung sounds bilaterally. Absent: respiratory distress, wheezes, rales, rhonchi, stridor Cardiovascular Exam: Present: regular rate, normal rhythm, normal heart sounds. Absent: systolic murmur, diastolic murmur, rubs, gallop, clicks GI/Abdominal exam: Present: soft, tenderness (Moderate epigastric), normal bowel sounds. Absent: distended, guarding, rebound, rigid Back exam: Absent: CVA tenderness (R), CVA tenderness (L) Neurological exam: Present: alert, oriented X3 Skin exam: Present: warm, dry, intact, normal color. Absent: rash Course Vital Signs 08/20/20 07:37 Temperature 98.6 F Pulse Rate 65 Respiratory 16 Rate Blood Pressure 179/78 O2 Sat by Pulse 100 Oximetry Medical Decision Making - Medical Decision Making Patient's labs unremarkable. Patient has chronic abdominal pain related to chronic pancreatitis. Patient be discharged in stable condition return parameters discussed. - Lab Data Result diagrams: 08/20/20 08:04 08/20/20 08:04 Lab Results 08/20/20 08/20/20 08/20/20 Range/Units 08:04 08:04 08:04 WBC 7.7 (3.8-10.6) k/uL RBC 4.91 (3.80-5.40) m/uL Hgb 13.8 (11.4-16.0) gm/dL Hct 42.0 (34.0-46.0) % MCV 85.5 (80.0-100.0) fL MCH 28.2 (25.0-35.0) pg MCHC 33.0 (31.0-37.0) g/dL RDW 14.7 (11.5-15.5) % Plt Count 289 (150-450) k/uL MPV 7.5 Neutrophils % 65 % Lymphocytes % 26 % Monocytes % 5 % Eosinophils % 2 % Basophils % 1 % Neutrophils # 5.0 (1.3-7.7) k/uL Lymphocytes # 2.0 (1.0-4.8) k/uL Monocytes # 0.3 (0-1.0) k/uL Eosinophils # 0.2 (0-0.7) k/uL Basophils # 0.1 (0-0.2) k/uL Sodium 143 (137-145) mmol/L Potassium 3.8 (3.5-5.1) mmol/L Chloride 107 (98-107) mmol/L Carbon Dioxide 27 (22-30) mmol/L Anion Gap 9 mmol/L BUN 13 (7-17) mg/dL Creatinine 0.76 (0.52-1.04) mg/dL Est GFR (CKD-EPI)AfAm >90 (>60 ml/min/1.73 sqM) Est GFR (CKD-EPI)NonAf 84 (>60 ml/min/1.73 sqM) Glucose 133 H (74-99) mg/dL Plasma Lactic Acid Derek (0.7-2.0) mmol/L Calcium 9.9 (8.4-10.2) mg/dL Total Bilirubin 0.3 (0.2-1.3) mg/dL AST 22 (14-36) U/L ALT 21 (4-34) U/L Alkaline Phosphatase 94 (38-126) U/L Total Protein 7.5 (6.3-8.2) g/dL Albumin 4.5 (3.5-5.0) g/dL Amylase 51 (30-110) U/L Lipase 165 (23-300) U/L Urine Color Yellow Urine Appearance Cloudy H (Clear) Urine pH 6.0 (5.0-8.0) Ur Specific [place] 1.019 (1.001-1.035) Urine Protein 1+ H (Negative) Urine Glucose (UA) Trace H (Negative) Urine Ketones Negative (Negative) Urine Blood Small H (Negative) Urine Nitrite Negative (Negative) Urine Bilirubin Negative (Negative) Urine Urobilinogen <2.0 (<2.0) mg/dL Ur Leukocyte Esterase Small H (Negative) Urine RBC 26 H (0-5) /hpf Urine WBC 27 H (0-5) /hpf Ur Squamous Epith Cells 3 (0-4) /hpf Calcium Oxalate Crystal Moderate H (None) /hpf Urine Bacteria Rare H (None) /hpf Urine Mucus Occasional H (None) /hpf 18/20 Range/Units 08:04 WBC (3.8-10.6) k/uL RBC (3.80-5.40) m/uL Hgb (11.4-16.0) gm/dL Hct (34.0-46.0) % MCV (80.0-100.0) fL MCH (25.0-35.0) pg MCHC (31.0-37.0) g/dL RDW (11.5-15.5) % Plt Count (150-450) k/uL MPV Neutrophils % % Lymphocytes % % Monocytes % % Eosinophils % % Basophils % % Neutrophils # (1.3-7.7) k/uL Lymphocytes # (1.0-4.8) k/uL Monocytes # (0-1.0) k/uL Eosinophils # (0-0.7) k/uL Basophils # (0-0.2) k/uL Sodium (137-145) mmol/L Potassium (3.5-5.1) mmol/L Chloride (98-107) mmol/L Carbon Dioxide (22-30) mmol/L Anion Gap mmol/L BUN (7-17) mg/dL Creatinine (0.52-1.04) mg/dL Est GFR (CKD-EPI)AfAm (>60 ml/min/1.73 sqM) Est GFR (CKD-EPI)NonAf (>60 ml/min/1.73 sqM) Glucose (74-99) mg/dL Plasma Lactic Acid Derek 1.6 (0.7-2.0) mmol/L Calcium (8.4-10.2) mg/dL Total Bilirubin (0.2-1.3) mg/dL AST (14-36) U/L ALT (4-34) U/L Alkaline Phosphatase (38-126) U/L Total Protein (6.3-8.2) g/dL Albumin (3.5-5.0) g/dL Amylase (30-110) U/L Lipase (23-300) U/L Urine Color Urine Appearance (Clear) Urine pH (5.0-8.0) Ur Specific [place] (1.001-1.035) Urine Protein (Negative) Urine Glucose (UA) (Negative) Urine Ketones (Negative) Urine Blood (Negative) Urine Nitrite (Negative) Urine Bilirubin (Negative) Urine Urobilinogen (<2.0) mg/dL Ur Leukocyte Esterase (Negative) Urine RBC (0-5) /hpf Urine WBC (0-5) /hpf Ur Squamous Epith Cells (0-4) /hpf Calcium Oxalate Crystal (None) /hpf Urine Bacteria (None) /hpf Urine Mucus (None) /hpf Disposition Clinical Impression: Nausea & vomiting, Chronic abdominal pain Disposition: HOME SELF-CARE Condition: Stable Instructions (If sedation given, give patient instructions): Abdominal Pain (ED) Additional Instructions: Please return to the Emergency Department if symptoms worsen or any other concerns. Is patient prescribed a controlled substance at d/c from ED?: No Referrals: Toi Chin [Primary Care Provider] - 1-2 days Time of Disposition: 09:41
[2020-08-20 08:26] LABS: Basophils # (A) 0.1 k/uL (0-0.2); Basophils % (A) 1 %; Eosinophils # (A) 0.2 k/uL (0-0.7); Eosinophils % (A) 2 %; HGB 13.8 gm/dL (11.4-16.0); Lymphocytes % (A) 26 %; MCH 28.2 pg (25.0-35.0); MCV 85.5 fL (80.0-100.0); Mean Platelet Volume 7.5; Monocytes # (A) 0.3 k/uL (0-1.0); Monocytes % (A) 5 %; Neutrophils % (A) 65 %; Platelet Count 289 k/uL (150-450); RBC 4.91 m/uL (3.80-5.40); RDW 14.7 % (11.5-15.5); WBC 7.7 k/uL (3.8-10.6)
[2020-08-20 08:36] LABS: ALT 21 U/L (4-34); AST 22 U/L (14-36); African American GFR (CKD) >90 (>60 ml/min/1.73 sqM); Albumin 4.5 g/dL (3.5-5.0); Alkaline Phosphatase 94 U/L (38-126); Amylase 51 U/L (30-110); Anion Gap 9 mmol/L; Blood Urea Nitrogen 13 mg/dL (7-17); Calcium 9.9 mg/dL (8.4-10.2); Carbon Dioxide 27 mmol/L (22-30); Chloride 107 mmol/L (98-107); Glucose 133 mg/dL (74-99); Lipase 165 U/L (23-300); Non-African American GFR(CKD) 84 (>60 ml/min/1.73 sqM); Potassium 3.8 mmol/L (3.5-5.1); Sodium 143 mmol/L (137-145); Total Bilirubin 0.3 mg/dL (0.2-1.3); Total Protein 7.5 g/dL (6.3-8.2)
[2020-08-20 09:12] LABS: Appearance,Urine Cloudy (Clear); Bacteria,Urine Rare /hpf; Bilirubin,Urine Negative (Negative); Blood,Urine Small (Negative); Calcium Oxalate Crystals,Urine Moderate /hpf; Color,Urine Yellow; Glucose,Urine (UA) Trace (Negative); Ketones,Urine Negative (Negative); Leukocyte Esterase,Urine Small (Negative); Mucus,Urine Occasional /hpf; Nitrite,Urine Negative (Negative); Protein,Urine 1+ (Negative); RBC,Urine 26 /hpf (0-5); Specific Gravity,Urine 1.019 (1.001-1.035); Squamous Epithelial Cell,Urine 3 /hpf (0-4); Urobilinogen,Urine <2.0 mg/dL (<2.0); WBC,Urine 27 /hpf (0-5)
[2020-08-20] MEDS ORDERED: ACET/COD 300 MG/30 MG STARTER PACK 6 TAB BTL PO STA (09:40)
[2020-08-20] MEDS ORDERED: diphenhydrAMINE 50 MG/ML 1 ML VIAL IVP STA (09:40)
[2020-08-20] MEDS ORDERED: HYDROmorphone 0.5 MG/0.5 ML SYRINGE IVP STA (09:40)
[2020-08-20] MEDS ORDERED: METOCLOPRAMIDE 5 MG/ML 2 ML VIAL IVP STA (09:40)
[2020-08-20 10:06] VITALS: BP 158/74; PULSE 74; TEMP 97.9
== END 2020-08-20 10:04 | disposition home or self-care (01) ==
LOC: EC 07:36
DX: R10.9 Unspecified abdominal pain (principal); R11.2 Nausea with vomiting, unspecified; G89.29 Other chronic pain; K86.1 Other chronic pancreatitis; I10 Essential (primary) hypertension; K21.9 Gastro-esophageal reflux disease without esophagitis; J44.9 Chronic obstructive pulmonary disease, unspecified; F17.200 Nicotine dependence, unspecified, uncomplicated; Z79.899 Other long term (current) drug therapy; Z86.73 Personal history of transient ischemic attack (TIA), and cerebral infarction without residual deficits; Z90.89 Acquired absence of other organs; Z90.49 Acquired absence of other specified parts of digestive tract; Z90.721 Acquired absence of ovaries, unilateral
CPT/HCPCS: 36415; 80053; 82150; 83605; 83690; 85025; 81001; 87086; 99284; 96374; 96375 ×3; 96376; 96361; J1200; J2765; J2405; J1170 ×2

== ENCOUNTER 2020-08-21 08:32 | Emergency (ER) | payer BC ==
[2020-08-21 08:36] VITALS: RESP 18; TEMP 98.1
[2020-08-21] MEDS ORDERED: methylPREDNISolone SOD SUCCI 125 MG/2 ML VIAL IM ONE (08:47)
[2020-08-21] MEDS ORDERED: MORPHINE SULFATE 4 MG/ML SYRINGE IM STA (08:47)
--- NOTE | 2020-08-21 08:54 | ED ---
Back Pain HPI - General Chief Complaint: Back Pain/Injury Stated Complaint: Fall/back pain Time Seen by Provider: 08/21/20 08:37 Source: patient, RN notes reviewed, old records reviewed Limitations: no limitations - History of Present Illness Initial Comments: 64-year-old female presents to the emergency department today for evaluation for lower back pain. Patient reports that she became startled from an outside her house and she jumped backwards hitting the lower back on her countertop. Patient states that she has chronic back pain and she scheduled to have back surgery in a month. She reports that she has some peripheral paresthesias, lower extremity and pain shooting down her legs. She is well-known to emergency department for chronic abdominal pain. She was seen in emergency department 3 times this week for similar complaint of abdominal pain. - Related Data Home Medications Medication Instructions Recorded Confirmed Atorvastatin [Lipitor] 40 mg PO HS 03/18/20 08/20/20 Ticagrelor [Brilinta] 90 mg PO BID 03/18/20 08/20/20 Albuterol Inhaler [Ventolin Hfa 2 puff INHALATION RT-Q4H PRN 06/21/20 08/20/20 Inhaler] amLODIPine BESYLATE/BENAZEPRIL 1 cap PO DAILY 06/21/20 08/20/20 [Lotrel 2.5-10 MG] Gabapentin [Neurontin] 100 mg PO TID 06/24/20 08/20/20 Cholecalciferol [Vitamin D3 (25 2,000 unit PO DAILY 07/26/20 08/20/20 Mcg = 1000 Iu)] Loperamide [Imodium] 2 mg PO QID PRN 07/30/20 08/20/20 traMADol HCl [Ultram] 100 mg PO Q4HR PRN 07/30/20 08/20/20 atenoloL [Atenolol] 25 mg PO DAILY 08/17/20 08/20/20 Allergies Allergy/AdvReac Type Severity Reaction Status Date / Time No Known Allergies Allergy Verified 08/21/20 08:36 Review of Systems ROS Statement: Those systems with pertinent positive or pertinent negative responses have been documented in the HPI. ROS Other: All systems not noted in ROS Statement are negative. 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/hx fx l2, hx anemia, pancreatits History of Any Multi-Drug Resistant Organisms: None Reported Past Surgical History: Appendectomy, Back Surgery, Cholecystectomy, Orthopedic Surgery, Tonsillectomy Additional Past Surgical History / Comment(s): Pancreatic stents-since removed, 6 back surgeries with 2 fusions, right oophorectomy due to ectopic , EGD/colonoscopy, right leg alice inserted d/t fracture, Past Anesthesia/Blood Transfusion Reactions: No Reported Reaction Additional Past Anesthesia/Blood Transfusion Reaction / Comment(s): DIFF IV STARTS, Pt has received blood in past without reaction. Past Psychological History: No Psychological Hx Reported Smoking Status: Former smoker Past Alcohol Use History: None Reported Past Drug Use History: None Reported - Past Family History Father Family Medical History: Cancer Mother Family Medical History: Cancer, CVA/TIA Additional Family Medical History / Comment(s): breast and colon cancer. General Exam - General Exam Comments Initial Comments: 64-year-old female. Alert and oriented 3. No distress. Limitations: no limitations General appearance: alert, in no apparent distress Head exam: Present: atraumatic, normocephalic, normal inspection Eye exam: Present: normal appearance, PERRL, EOMI. Absent: scleral icterus, conjunctival injection, periorbital swelling ENT exam: Present: normal exam, mucous membranes moist Neck exam: Present: normal inspection. Absent: tenderness, meningismus, lymphadenopathy Respiratory exam: Present: normal lung sounds bilaterally. Absent: respiratory distress, wheezes, rales, rhonchi, stridor Cardiovascular Exam: Present: regular rate, normal rhythm, normal heart sounds. Absent: systolic murmur, diastolic murmur, rubs, gallop, clicks GI/Abdominal exam: Present: soft Extremities exam: Present: normal inspection, full ROM, normal capillary refill. Absent: tenderness, pedal edema, joint swelling, calf tenderness Back exam: Absent: normal inspection (Patient is evidence of bone deformity on upper lumbar spine. Well-appearing incision sites from previous surgeries.) Neurological exam: Present: alert, oriented X3, CN II-XII intact Psychiatric exam: Present: normal affect, normal mood Skin exam: Present: warm, dry, intact, normal color. Absent: rash Course Vital Signs 12/19/20 08:34 Temperature 98.1 F Pulse Rate 69 Respiratory 18 Rate Blood Pressure 187/89 O2 Sat by Pulse 99 Oximetry Medical Decision Making - Medical Decision Making Patient states world female presents to return today with back pain after she fell backward onto the edge of a counter. At this time Patient has no saddle anesthesias. She does report some referred pain the left leg however Patient has had chronic back pain and multiple surgeries. She is scheduled have u pcoming surgery with Dr. Vieyra's in a few weeks. At this time Patient was given IM pain medication. Discussed return parameters. - Radiology Data Radiology results: report reviewed Extensive postoperative changes are tense treated. Loss of height L2 segment superior segment unchanged from recent CT. No change effusion multiple levels decompressive laminectomy. Transfer the care screw at L2 extends anteriorly into the disc space. Vascular constipation as noted. Findings are stable. Vertebroplasty changes noted. Tylenol no navicular degenerative changes. Disposition Clinical Impression: Back pain Disposition: HOME SELF-CARE Condition: Good Instructions (If sedation given, give patient instructions): Acute Low Back Pain (ED) Additional Instructions: Take at home pain medication. It apply heat and ice to the lower back. Follow- up with her back surgeon. Return to ED if any alarming signs or symptoms occur. Is patient prescribed a controlled substance at d/c from ED?: No Referrals: Toi Chin [Primary Care Provider] - 1-2 days Bert Greenfield DO [Doctor of Osteopathic Medicine] - 1-2 days Time of Disposition: 09:17
--- NOTE | 2020-08-21 09:03 | XR ---
EXAM TYPE: LUMBAR SPINE X RAY SERIES COMPARISON: NONE HISTORY: Pain TECHNIQUE: 4 views are submitted. FINDINGS: Extensive postoperative changes redemonstrated. Again noted is loss of height of the L2 segment super ior segment unchanged from recent CT. Noted are changes of fusion at multiple levels with decompressi ve laminectomy. Transpedicular screw at L2 extends anteriorly into the disc space. Vascular calcifica tions noted. Findings are stable.. Vertebroplasty changes are noted. Talonavicular degenerative owens es. IMPRESSION: 1. Stable postoperative change
[2020-08-21] MEDS ORDERED: ACET/COD 300 MG/30 MG STARTER PACK 6 TAB BTL PO STA (09:21)
[2020-08-21 09:32] VITALS: BP 143/89; PULSE 66
== END 2020-08-21 09:34 | disposition home or self-care (01) ==
LOC: EC 08:32
DX: S39.92XA Unspecified injury of lower back, initial encounter (principal); G89.29 Other chronic pain; M54.5 Low back pain; M43.8X6 Other specified deforming dorsopathies, lumbar region; R10.9 Unspecified abdominal pain; J44.9 Chronic obstructive pulmonary disease, unspecified; I10 Essential (primary) hypertension; M19.90 Unspecified osteoarthritis, unspecified site; G43.909 Migraine, unspecified, not intractable, without status migrainosus; K86.1 Other chronic pancreatitis; I69.354 Hemiplegia and hemiparesis following cerebral infarction affecting left non-dominant side; Z79.51 Long term (current) use of inhaled steroids; Z79.899 Other long term (current) drug therapy; Z90.49 Acquired absence of other specified parts of digestive tract; Z98.890 Other specified postprocedural states; Z87.891 Personal history of nicotine dependence; W08.XXXA Fall from other furniture, initial encounter; Y93.39 Activity, other involving climbing, rappelling and jumping off
CPT/HCPCS: 72100; 99284; 96372 ×2; J2270; J2930

== ENCOUNTER 2020-08-22 11:42 | Emergency (ER) | payer BC ==
[2020-08-22 11:49] VITALS: RESP 17; TEMP 99.2
[2020-08-22] MEDS ORDERED: PANTOPRAZOLE 40 MG/10 ML VIAL IVP STA (11:58)
[2020-08-22] MEDS ORDERED: MORPHINE SULFATE 4 MG/ML SYRINGE IV STA (11:58)
[2020-08-22] MEDS ORDERED: ONDANSETRON 4 MG/2 ML VIAL IVP STA (11:58)
[2020-08-22] MEDS ORDERED: SODIUM CHLORIDE 0.9% 1,000 ML IV STA (11:58)
--- NOTE | 2020-08-22 12:05 | ED ---
Abdominal Pain HPI - General Chief Complaint: Abdominal Pain Stated Complaint: Revisit Abd Pain, Nausea, Vomiting Time Seen by Provider: 08/22/20 11:47 Source: patient, EMS, RN notes reviewed, old records reviewed Mode of arrival: EMS Limitations: no limitations - History of Present Illness Initial Comments: Patient is a 64-year-old female well-known to emergency department with chief complaint of abdominal pain. She states she has history of chronic pancreatitis. Patient states she's having an acute flareup today complains diarrhea. She was seen in the emergency department yesterday for back pain. She reports that that is no improving. Patient states that she has nausea and vomiting. She arrived via EMS. Her Zofran at home has not been helping with her symptoms. - Related Data Home Medications Medication Instructions Recorded Confirmed Atorvastatin [Lipitor] 40 mg PO HS 03/18/20 08/22/20 Ticagrelor [Brilinta] 90 mg PO BID 03/18/20 08/22/20 Albuterol Inhaler [Ventolin Hfa 2 puff INHALATION RT-Q4H PRN 06/21/20 08/22/20 Inhaler] amLODIPine BESYLATE/BENAZEPRIL 1 cap PO DAILY 06/21/20 08/22/20 [Lotrel 2.5-10 MG] Gabapentin [Neurontin] 100 mg PO TID 06/24/20 08/22/20 Cholecalciferol [Vitamin D3 (25 2,000 unit PO DAILY 07/26/20 08/22/20 Mcg = 1000 Iu)] Loperamide [Imodium] 2 mg PO QID PRN 07/30/20 08/22/20 traMADol HCl [Ultram] 100 mg PO Q4HR PRN 07/30/20 08/22/20 atenoloL [Atenolol] 25 mg PO DAILY 08/17/20 08/22/20 Previous Rx's Medication Instructions Recorded Diphenox-Atrop 2.5-0.025 mg 1 tab PO 5XD PRN 3 Days #15 tablet 08/22/20 [Lomotil] Allergies Allergy/AdvReac Type Severity Reaction Status Date / Time No Known Allergies Allergy Verified 08/22/20 12:15 Review of Systems ROS Statement: Those systems with pertinent positive or pertinent negative responses have been documented in the HPI. ROS Other: All systems not noted in ROS Statement are negative. 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/hx fx l2, hx anemia, pancreatits History of Any Multi-Drug Resistant Organisms: None Reported Past Surgical History: Appendectomy, Back Surgery, Cholecystectomy, Orthopedic S urgery, Tonsillectomy Additional Past Surgical History / Comment(s): Pancreatic stents-since removed, 6 back surgeries with 2 fusions, right oophorectomy due to ectopic , EGD/colonoscopy, right leg alice inserted d/t fracture, Past Anesthesia/Blood Transfusion Reactions: No Reported Reaction Additional Past Anesthesia/Blood Transfusion Reaction / Comment(s): DIFF IV STARTS, Pt has received blood in past without reaction. Past Psychological History: No Psychological Hx Reported Smoking Status: Current some day smoker Past Alcohol Use History: None Reported Past Drug Use History: None Reported - Past Family History Father Family Medical History: Cancer Mother Family Medical History: Cancer, CVA/TIA Additional Family Medical History / Comment(s): breast and colon cancer. General Exam - General Exam Comments Initial Comments: 64-year-old female presents emergency department today for abdominal pain diarrhea. is well-appearing. No distress. Limitations: no limitations General appearance: alert, in no apparent distress Head exam: Present: atraumatic, normocephalic, normal inspection Eye exam: Present: normal appearance, PERRL, EOMI. Absent: scleral icterus, conjunctival injection, periorbital swelling ENT exam: Present: normal exam, mucous membranes moist Neck exam: Present: normal inspection. Absent: tenderness, meningismus, lymphadenopathy Respiratory exam: Present: normal lung sounds bilaterally. Absent: respiratory distress, wheezes, rales, rhonchi, stridor Cardiovascular Exam: Present: regular rate, normal rhythm, normal heart sounds. Absent: systolic murmur, diastolic murmur, rubs, gallop, clicks GI/Abdominal exam: Present: soft, normal bowel sounds. Absent: distended, te nderness, guarding, rebound, rigid Extremities exam: Present: normal inspection, full ROM, normal capillary refill. Absent: tenderness, pedal edema, joint swelling, calf tenderness Back exam: Present: normal inspection Neurological exam: Present: alert Psychiatric exam: Present: normal affect, normal mood Skin exam: Present: warm, dry, intact, normal color. Absent: rash Course Vital Signs 08/22/20 11:43 Temperature 99.2 F Pulse Rate 72 Respiratory 17 Rate Blood Pressure 179/101 O2 Sat by Pulse 100 Oximetry Medical Decision Making - Medical Decision Making 64-year-old female presents emergency department today for abdominal pain diarrhea. Patient has been seen multiple times for similar complaints has history of chronic pancreatitis. This time I was reviewed and unremarkable. She did have episodes of diarrhea while in the ER. Patient's given IV fluids and another 4 improvement of her discomfort after IV analgesia. I discussed Patient to return but needs a follow-up with primary care physician in regards to chronic pain. We'll discharge the Patient a prescription for Lomotil. - Lab Data Result diagrams: 08/22/20 11:59 08/22/20 11:59 Lab Results 08/22/20 08/22/20 08/22/20 Range/Units 11:59 11:59 11:59 WBC 14.6 H (3.8-10.6) k/uL RBC 4.69 (3.80-5.40) m/uL Hgb 13.2 (11.4-16.0) gm/dL Hct 40.3 (34.0-46.0) % MCV 85.8 (80.0-100.0) fL MCH 28.2 (25.0-35.0) pg MCHC 32.9 (31.0-37.0) g/dL RDW 15.0 (11.5-15.5) % Plt Count 279 (150-450) k/uL MPV 7.5 Neutrophils % 75 % Lymphocytes % 17 % Monocytes % 6 % Eosinophils % 0 % Basophils % 1 % Neutrophils # 10.9 H (1.3-7.7) k/uL Lymphocytes # 2.5 (1.0-4.8) k/uL Monocytes # 0.9 (0-1.0) k/uL Eosinophils # 0.1 (0-0.7) k/uL Basophils # 0.1 (0-0.2) k/uL PT 9.5 (9.0-12.0) sec INR 0.9 (<1.2) APTT 20.9 L (22.0-30.0) sec Sodium (137-145) mmol/L Potassium (3.5-5.1) mmol/L Chloride (98-107) mmol/L Carbon Dioxide (22-30) mmol/L Anion Gap mmol/L BUN (7-17) mg/dL Creatinine (0.52-1.04) mg/dL Est GFR (CKD-EPI)AfAm (>60 ml/min/1.73 sqM) Est GFR (CKD-EPI)NonAf (>60 ml/min/1.73 sqM) Glucose (74-99) mg/dL Calcium (8.4-10.2) mg/dL Total Bilirubin (0.2-1.3) mg/dL AST (14-36) U/L ALT (4-34) U/L Alkaline Phosphatase (38-126) U/L Total Protein (6.3-8.2) g/dL Albumin (3.5-5.0) g/dL Amylase (30-110) U/L Lipase (23-300) U/L Urine Color Light Yellow Urine Appearance Clear (Clear) Urine pH 6.5 (5.0-8.0) Ur Specific [place] 1.005 (1.001-1.035) Urine Protein Negative (Negative) Urine Glucose (UA) Negative (Negative) Urine Ketones Negative (Negative) Urine Blood Small H (Negative) Urine Nitrite Negative (Negative) Urine Bilirubin Negative (Negative) Urine Urobilinogen <2.0 (<2.0) mg/dL Ur Leukocyte Esterase Small H (Negative) Urine WBC 5 (0-5) /hpf Ur Squamous Epith Cells <1 (0-4) /hpf 12/20/20 Range/Units 11:59 WBC (3.8-10.6) k/uL RBC (3.80-5.40) m/uL Hgb (11.4-16.0) gm/dL Hct (34.0-46.0) % MCV (80.0-100.0) fL MCH (25.0-35.0) pg MCHC (31.0-37.0) g/dL RDW (11.5-15.5) % Plt Count (150-450) k/uL MPV Neutrophils % % Lymphocytes % % Monocytes % % Eosinophils % % Basophils % % Neutrophils # (1.3-7.7) k/uL Lymphocytes # (1.0-4.8) k/uL Monocytes # (0-1.0) k/uL Eosinophils # (0-0.7) k/uL Basophils # (0-0.2) k/uL PT (9.0-12.0) sec INR (<1.2) APTT (22.0-30.0) sec Sodium 141 (137-145) mmol/L Potassium 3.8 (3.5-5.1) mmol/L Chloride 107 (98-107) mmol/L Carbon Dioxide 25 (22-30) mmol/L Anion Gap 9 mmol/L BUN 15 (7-17) mg/dL Creatinine 0.76 (0.52-1.04) mg/dL Est GFR (CKD-EPI)AfAm >90 (>60 ml/min/1.73 sqM) Est GFR (CKD-EPI)NonAf 84 (>60 ml/min/1.73 sqM) Glucose 124 H (74-99) mg/dL Calcium 10.1 (8.4-10.2) mg/dL Total Bilirubin 0.3 (0.2-1.3) mg/dL AST 19 (14-36) U/L ALT 17 (4-34) U/L Alkaline Phosphatase 80 (38-126) U/L Total Protein 8.0 (6.3-8.2) g/dL Albumin 4.7 (3.5-5.0) g/dL Amylase 48 (30-110) U/L Lipase 74 (23-300) U/L Urine Color Urine Appearance (Clear) Urine pH (5.0-8.0) Ur Specific [place] (1.001-1.035) Urine Protein (Negative) Urine Glucose (UA) (Negative) Urine Ketones (Negative) Urine Blood (Negative) Urine Nitrite (Negative) Urine Bilirubin (Negative) Urine Urobilinogen (<2.0) mg/dL Ur Leukocyte Esterase (Negative) Urine WBC (0-5) /hpf Ur Squamous Epith Cells (0-4) /hpf Disposition Clinical Impression: Diarrhea, Abdominal pain Disposition: HOME SELF-CARE Condition: Good Instructions (If sedation given, give patient instructions): Abdominal Pain (ED) Additional Instructions: Follow-up with PCP. Return to the ED if any alarming signs or symptoms occur. Prescriptions: Diphenox-Atrop 2.5-0.025 mg [Lomotil] 1 tab PO 5XD PRN 3 Days #15 tablet PRN Reason: Diarrhea Is patient prescribed a controlled substance at d/c from ED?: No Referrals: Toi Chin [Primary Care Provider] - 1-2 days Time of Disposition: 12:48
[2020-08-22 12:07] LABS: Basophils # (A) 0.1 k/uL (0-0.2); Basophils % (A) 1 %; Eosinophils # (A) 0.1 k/uL (0-0.7); Eosinophils % (A) 0 %; HCT 40.3 % (34.0-46.0); HGB 13.2 gm/dL (11.4-16.0); Lymphocytes # (A) 2.5 k/uL (1.0-4.8); Lymphocytes % (A) 17 %; MCH 28.2 pg (25.0-35.0); MCHC 32.9 g/dL (31.0-37.0); MCV 85.8 fL (80.0-100.0); Mean Platelet Volume 7.5; Monocytes # (A) 0.9 k/uL (0-1.0); Monocytes % (A) 6 %; Neutrophils # (A) 10.9 k/uL (1.3-7.7); Neutrophils % (A) 75 %; Platelet Count 279 k/uL (150-450); RBC 4.69 m/uL (3.80-5.40); WBC 14.6 k/uL (3.8-10.6)
[2020-08-22 12:14] LABS: Appearance,Urine Clear (Clear); Bilirubin,Urine Negative (Negative); Blood,Urine Small (Negative); Color,Urine Light Yellow; Glucose,Urine (UA) Negative (Negative); Ketones,Urine Negative (Negative); Leukocyte Esterase,Urine Small (Negative); Nitrite,Urine Negative (Negative); PH, Urine 6.5 (5.0-8.0); Protein,Urine Negative (Negative); Specific Gravity,Urine 1.005 (1.001-1.035); Squamous Epithelial Cell,Urine <1 /hpf (0-4); Urobilinogen,Urine <2.0 mg/dL (<2.0); WBC,Urine 5 /hpf (0-5)
[2020-08-22 12:19] LABS: ALT 17 U/L (4-34); AST 19 U/L (14-36); African American GFR (CKD) >90 (>60 ml/min/1.73 sqM); Albumin 4.7 g/dL (3.5-5.0); Alkaline Phosphatase 80 U/L (38-126); Amylase 48 U/L (30-110); Anion Gap 9 mmol/L; Blood Urea Nitrogen 15 mg/dL (7-17); Calcium 10.1 mg/dL (8.4-10.2); Carbon Dioxide 25 mmol/L (22-30); Chloride 107 mmol/L (98-107); Glucose 124 mg/dL (74-99); Lipase 74 U/L (23-300); Non-African American GFR(CKD) 84 (>60 ml/min/1.73 sqM); Potassium 3.8 mmol/L (3.5-5.1); Sodium 141 mmol/L (137-145); Total Bilirubin 0.3 mg/dL (0.2-1.3)
[2020-08-22 12:32] LABS: INR 0.9 (<1.2); Prothrombin Time 9.5 sec (9.0-12.0)
[2020-08-22 12:37] LABS: Partial Thromboplastin Time 20.9 sec (22.0-30.0)
[2020-08-22] MEDS ORDERED: MORPHINE SULFATE 4 MG/ML SYRINGE IVP STA (12:45)
[2020-08-22] MEDS ORDERED: DIPHENOX-ATROP STARTER PACK 8 TAB BTL PO STA (12:45)
[2020-08-22 13:00] VITALS: BP 181/90; PULSE 59
== END 2020-08-22 13:08 | disposition home or self-care (01) ==
LOC: EC 11:42
DX: R10.9 Unspecified abdominal pain (principal); R19.7 Diarrhea, unspecified; R11.2 Nausea with vomiting, unspecified; I10 Essential (primary) hypertension; F17.200 Nicotine dependence, unspecified, uncomplicated; Z79.899 Other long term (current) drug therapy; Z86.73 Personal history of transient ischemic attack (TIA), and cerebral infarction without residual deficits; Z90.721 Acquired absence of ovaries, unilateral; Z90.89 Acquired absence of other organs; Z90.49 Acquired absence of other specified parts of digestive tract
CPT/HCPCS: 36415; 80053; 82150; 83690; 85025; 85610; 85730; 81001; 99284; 96374; 96375 ×2; 96376; 96361; J2270; J2405; C9113

== ENCOUNTER → 2020-08-24 | Outpatient (CLI) | payer BC ==
--- NOTE | 2020-08-25 08:35 | CT ---
EXAMINATION TYPE: CT thor lumbar spine wo con DATE OF EXAM: 08/25/2020 COMPARISON: 08/28/2017 HISTORY: Mid to low back pain, patient has surgery coming up in Sep. CT DLP: 671.7 mGycm Automated exposure control for dose reduction was used. Unenhanced CT of the thoracic and lumbar spin e was performed in the axial and sagittal planes. Bone and soft tissue window settings are submitted. FINDINGS: Thoracic spine: There is mild loss of height involving all thoracic disc space levels compatible with multilevel degenerative disc disease. There is mild posterior disc bulge and without evidence for he rniation or central stenosis. Ventral spondylosis identified. No fracture or malalignment of the thor acic spine identified. Visualized lungs appear to be clear. Lumbar spine: Pedicular screws are noted to extend from L3 through S1. Alignment is near-anatomic. Th ere is decompressive laminectomy at L4-5 and L5-S1. Beam hardening artifact limits evaluation at each of these levels. At L3-4 there is degenerative disc space narrowing posterior disc bulge. Mild centr al stenosis suggested. There is vertebroplasty of L3. At L2-3 there is evidence of L2 vertebral plast y. Fusion changes noted. Posterior disc bulge with constriction of the thecal sac and borderline cent ral stenosis difficult to exclude. At L1-2 there is severe degenerative disc disease noted with vacuu m disc. Posterior disc bulge identified with effacement ventral thecal sac. Mild central stenosis sug gested. IMPRESSION: 1. Multilevel degenerative disc disease with central stenosis as outlined above. 2. Multilevel central stenosis. 3. Pedicular screws in the changes of lumbar laminectomy. Vertebroplasty changes noted as well.
== END | disposition home or self-care (01) ==
LOC: RADCTMAIN 16:09
PROVIDERS: ATTEND Orthopaedic Surgery
DX: M48.061 Spinal stenosis, lumbar region without neurogenic claudication (principal); M51.36 Other intervertebral disc degeneration, lumbar region; Z98.890 Other specified postprocedural states
CPT/HCPCS: 72128; 72131

== ENCOUNTER 2020-09-07 10:32 | Emergency (ER) | payer BC ==
[2020-09-07 11:03] VITALS: BP 145/89; PULSE 100; RESP 18; TEMP 99.1
[2020-09-07] MEDS ORDERED: MORPHINE SULFATE 4 MG/ML SYRINGE IM STA (11:27)
--- NOTE | 2020-09-07 11:36 | ED ---
General Adult HPI - General Source: patient, RN notes reviewed Mode of arrival: ambulatory Limitations: no limitations <Bulmaro Brownlee - Last Filed: 09/07/20 11:44> <Janine Gray - Last Filed: 09/08/20 23:04> - General Chief complaint: Back Pain/Injury Stated complaint: Back Pain Time Seen by Provider: 09/07/20 11:10 - History of Present Illness Initial comments: 64-year-old female presents to the emergency department for a chief complaint of back pain. Patient reports she has chronic back pain and is supposed to have surgery later this month. Denies any bladder bowel changes, numbness or tingling in the legs, difficulty ambulating, weakness of the lower extremities or fevers. Patient states she just needs some pain medication to help with her pain.Patient has no other complaints at this time including shortness of breath, chest pain, abdominal pain, nausea or vomiting, headache, or visual changes. (Bulmaro Brownlee) - Related Data Home Medications Medication Instructions Recorded Confirmed Atorvastatin [Lipitor] 40 mg PO HS 03/18/20 08/22/20 Ticagrelor [Brilinta] 90 mg PO BID 03/18/20 08/22/20 Albuterol Inhaler [Ventolin Hfa 2 puff INHALATION RT-Q4H PRN 06/21/20 08/22/20 Inhaler] amLODIPine BESYLATE/BENAZEPRIL 1 cap PO DAILY 06/21/20 08/22/20 [Lotrel 2.5-10 MG] Gabapentin [Neurontin] 100 mg PO TID 06/24/20 08/22/20 Cholecalciferol [Vitamin D3 (25 2,000 unit PO DAILY 07/26/20 08/22/20 Mcg = 1000 Iu)] Loperamide [Imodium] 2 mg PO QID PRN 07/30/20 08/22/20 traMADol HCl [Ultram] 100 mg PO Q4HR PRN 07/30/20 08/22/20 atenoloL [Atenolol] 25 mg PO DAILY 08/17/20 08/22/20 Previous Rx's Medication Instructions Recorded Diphenox-Atrop 2.5-0.025 mg 1 tab PO 5XD PRN 3 Days #15 tablet 08/22/20 [Lomotil] Allergies Allergy/AdvReac Type Severity Reaction Status Date / Time No Known Allergies Allergy Verified 09/07/20 11:03 Review of Systems ROS Other: All systems not noted in ROS Statement are negative. <Bulmaro Brownlee P - Last Filed: 09/07/20 11:44> ROS Other: All systems not noted in ROS Statement are negative. <Janine Gray Coral - Last Filed: 09/08/20 23:04> ROS Statement: Those systems with pertinent positive or pertinent negative responses have been documented in the HPI. 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/hx fx l2, hx anemia, pancreatits History of Any Multi-Drug Resistant Organisms: None Reported Past Surgical History: Appendectomy, Back Surgery, Cholecystectomy, Orthopedic Surgery, Tonsillectomy Additional Past Surgical History / Comment(s): Pancreatic stents-since removed, 6 back surgeries with 2 fusions, right oophorectomy due to ectopic , EGD/colonoscopy, right leg alice inserted d/t fracture, Past Anesthesia/Blood Transfusion Reactions: No Reported Reaction Additional Past Anesthesia/Blood Transfusion Reaction / Comment(s): DIFF IV STARTS, Pt has received blood in past without reaction. Past Psychological History: No Psychological Hx Reported Smoking Status: Current every day smoker Past Alcohol Use History: None Reported Past Drug Use History: None Reported - Past Family History Father Family Medical History: Cancer Mother Family Medical History: Cancer, CVA/TIA Additional Family Medical History / Comment(s): breast and colon cancer. <Bulmaro Brownlee P - Last Filed: 09/07/20 11:44> General Exam Limitations: no limitations General appearance: alert, in no apparent distress Head exam: Present: atraumatic, normocephalic, normal inspection Eye exam: Present: normal appearance, PERRL, EOMI. Absent: scleral icterus, conjunctival injection, periorbital swelling ENT exam: Present: normal exam, mucous membranes moist Neck exam: Present: normal inspection Respiratory exam: Present: normal lung sounds bilaterally. Absent: respiratory distress, wheezes, rales, rhonchi, stridor Cardiovascular Exam: Present: regular rate, normal rhythm, normal heart sounds. Absent: systolic murmur, diastolic murmur, rubs, gallop, clicks GI/Abdominal exam: Present: soft, normal bowel sounds. Absent: distended, tenderness, guarding, rebound, rigid Extremities exam: Present: other (Sensation intact bilateral lower extremities) Back exam: Present: paraspinal tenderness (Bilateral paraspinal tenderness) <Bulmaro Brownlee - Last Filed: 09/07/20 11:44> Course Vital Signs 09/07/20 10:59 Temperature 99.1 F Pulse Rate 100 Respiratory 18 Rate Blood Pressure 145/89 O2 Sat by Pulse 99 Oximetry Medical Decision Making <Bulmaro Brownlee - Last Filed: 09/07/20 11:44> <Janine Gray - Last Filed: 09/08/20 23:04> - Medical Decision Making Patient presents for chronic back pain. No red flag symptoms. Patient refusing Toradol and Norflex. I discussed with the patient that this is the last time we can give her pain medication as she is getting surgery soon and this is chronic. Patient is agreeable to this. I did refuse to give patient pain medication for home. She will need to follow-up with her doctor for this. (Bulmaro Brownlee) I was available for consultation in the emergency department. The history and physical exam were done by the midlevel provider. I was consulted for this patients care. I reviewed the case with the midlevel provider and based on their presentation of the patient, I agree with the assessment, medical decision making and plan of care as documented. Chart was dictated using [employer] dictation software. Attempts were made to correct any dictation errors however some typographical errors may persist. Patient was seen during a national state of emergency due to the Covid-19 pandemic. (Janine Gray) Disposition Is patient prescribed a controlled substance at d/c from ED?: No Time of Disposition: 11:35 <Bulmaro Brownlee - Last Filed: 09/07/20 11:44> <Janine Gray - Last Filed: 09/08/20 23:04> Clinical Impression: Chronic back pain Disposition: HOME SELF-CARE Condition: Good Instructions (If sedation given, give patient instructions): Chronic Pain (ED) Additional Instructions: Please follow-up with your doctor for further management of pain. Return to the emergency room for any worsening symptoms. Referrals: Toi Chin [Primary Care Provider] - 1-2 days
== END 2020-09-07 12:01 | disposition home or self-care (01) ==
LOC: EC 10:32
DX: G89.29 Other chronic pain (principal); M54.9 Dorsalgia, unspecified; Z53.29 Procedure and treatment not carried out because of patient's decision for other reasons; I10 Essential (primary) hypertension; F17.200 Nicotine dependence, unspecified, uncomplicated; Z79.899 Other long term (current) drug therapy; Z86.73 Personal history of transient ischemic attack (TIA), and cerebral infarction without residual deficits
CPT/HCPCS: 99283; 96372; J2270

== ENCOUNTER 2020-09-09 12:21 | Emergency (ER) | payer BC ==
[2020-09-09] MEDS ORDERED: ONDANSETRON 4 MG/2 ML VIAL IVP STA (12:35)
[2020-09-09] MEDS ORDERED: SODIUM CHLORIDE 0.9% 1,000 ML IV STA (12:35)
[2020-09-09] MEDS ORDERED: HYDROmorphone 0.5 MG/0.5 ML SYRINGE IVP STA ×2 (12:35→13:39)
--- NOTE | 2020-09-09 12:37 | ED ---
Abdominal Pain HPI - General Chief Complaint: Abdominal Pain Stated Complaint: pancreatitis Time Seen by Provider: 09/09/20 12:26 Source: patient Mode of arrival: wheelchair Limitations: no limitations - History of Present Illness Initial Comments: 64-year-old female presenting to the emergency room today for chief complaint of epigastric pain. Patient states that she struggles with chronic pancreatitis and was told that she had a cyst on her pancreas. She states that she is getting a PET scan done tomorrow as ordered by her primary care provider. Patient states that she does not really tolerate much orally secondary to the pain and presented for pain management today. Patient denies any chest pain pressure or jaw pain arm pain she denies any fevers diarrhea are controlled vomiting. Upon arrival patient appears in no distress her heart rate is mildly elevated she is very pleasant - Related Data Home Medications Medication Instructions Recorded Confirmed Atorvastatin [Lipitor] 40 mg PO HS 03/18/20 09/09/20 Ticagrelor [Brilinta] 90 mg PO BID 03/18/20 09/09/20 Albuterol Inhaler [Ventolin Hfa 2 puff INHALATION RT-Q4H PRN 06/21/20 09/09/20 Inhaler] Gabapentin [Neurontin] 100 mg PO TID 06/24/20 09/09/20 Cholecalciferol [Vitamin D3 (25 2,000 unit PO DAILY 07/26/20 09/09/20 Mcg = 1000 Iu)] Loperamide [Imodium] 2 mg PO QID PRN 07/30/20 09/09/20 traMADol HCl [Ultram] 100 mg PO Q4HR PRN 07/30/20 09/09/20 atenoloL [Atenolol] 25 mg PO DAILY 08/17/20 09/09/20 amLODIPine BESYLATE/BENAZEPRIL 1 cap PO DAILY 09/09/20 09/09/20 [Lotrel 5-10 MG] Previous Rx's Medication Instructions Recorded Diphenox-Atrop 2.5-0.025 mg 1 tab PO 5XD PRN 3 Days #15 tablet 08/22/20 [Lomotil] Ondansetron Odt [Zofran Odt] 4 mg PO Q8HR PRN 3 Days #9 tab 09/09/20 Allergies Allergy/AdvReac Type Severity Reaction Status Date / Time No Known Allergies Allergy Verified 09/09/20 13:12 Review of Systems ROS Statement: Those systems with pertinent positive or pertinent negative responses have been documented in the HPI. ROS Other: All systems not noted in ROS Statement are negative. 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/hx fx l2, hx anemia, pancreatits History of Any Multi-Drug Resistant Organisms: None Reported Past Surgical History: Appendectomy, Back Surgery, Cholecystectomy, Orthopedic Surgery, Tonsillectomy Additional Past Surgical History / Comment(s): Pancreatic stents-since removed, 6 back surgeries with 2 fusions, right oophorectomy due to ectopic , EGD/colonoscopy, right leg alice inserted d/t fracture, Past Anesthesia/Blood Transfusion Reactions: No Reported Reaction Additional Past Anesthesia/Blood Transfusion Reaction / Comment(s): DIFF IV STARTS, Pt has received blood in past without reaction. Past Psychological History: No Psychological Hx Reported Smoking Status: Current every day smoker Past Alcohol Use History: None Reported Past Drug Use History: None Reported - Past Family History Father Family Medical History: Cancer Mother Family Medical History: Cancer, CVA/TIA Additional Family Medical History / Comment(s): breast and colon cancer. General Exam - General Exam Comments Initial Comments: General: The patient is awake and alert, in no distress Eye: +3 mm pupils are equal, round and reactive to light, extra-ocular movements are intact. No nystagmus. There is normal conjunctiva bilaterally. No signs of icterus. Ears, nose, mouth and throat: There are moist mucous membranes and no oral lesions. Neck: The neck is supple, there is no tenderness or JVD. Cardiovascular: There is a regular rate and rhythm. No murmur, rub or gallop is appreciated. Respiratory: Lungs are clear to auscultation, respirations are non-labored, breath sounds are equal. No wheezes, stridor, rales, or rhonchi. Gastrointestinal: Soft, non-distended, epigastric tenderness to palpation of the abdomen, abdomen without masses or organomegaly noted. There is no rebound or guarding present. Musculoskeletal: Normal ROM, no tenderness. Strength 5/5. Sensation intact. radial pulses equal bilaterally 2+. Neurological: A&O x 3. CN II-XII intact grossly, There are no obvious motor or sensory deficits. Coordination appears grossly intact. Speech is normal. Skin: Skin is warm and dry and no rashes or lesions are noted. Psychiatric: Cooperative, appropriate mood & affect, normal judgment. Limitations: no limitations Course Vital Signs 09/09/20 12:22 Temperature 98.9 F Pulse Rate 105 H Respiratory 20 Rate Blood Pressure 129/85 O2 Sat by Pulse 100 Oximetry Medical Decision Making - Medical Decision Making epigastric pain identical to previous bouts of pancreatitis. lipase WNL. pt has PET scan tomorrow. no vomiting in ER. resting in room watching TV. Patient pain improved she was hydrated and is in no distress. she is agreeable to discharge wtih GI and pcp f/u. pt discharged appearing well. discussed case with attending. - Lab Data Result diagrams: 09/09/20 12:46 09/09/20 12:46 Lab Results 09/09/20 09/09/20 Range/Units 12:46 12:46 WBC 7.1 (3.8-10.6) k/uL RBC 4.74 (3.80-5.40) m/uL Hgb 13.8 (11.4-16.0) gm/dL Hct 40.6 (34.0-46.0) % MCV 85.6 (80.0-100.0) fL MCH 29.1 (25.0-35.0) pg MCHC 33.9 (31.0-37.0) g/dL RDW 15.1 (11.5-15.5) % Plt Count 430 (150-450) k/uL MPV 6.4 Neutrophils % 57 % Lymphocytes % 34 % Monocytes % 5 % Eosinophils % 2 % Basophils % 1 % Neutrophils # 4.0 (1.3-7.7) k/uL Lymphocytes # 2.4 (1.0-4.8) k/uL Monocytes # 0.3 (0-1.0) k/uL Eosinophils # 0.2 (0-0.7) k/uL Basophils # 0.1 (0-0.2) k/uL Sodium 140 (137-145) mmol/L Potassium 4.2 (3.5-5.1) mmol/L Chloride 104 (98-107) mmol/L Carbon Dioxide 26 (22-30) mmol/L Anion Gap 10 mmol/L BUN 16 (7-17) mg/dL Creatinine 0.68 (0.52-1.04) mg/dL Est GFR (CKD-EPI)AfAm >90 (>60 ml/min/1.73 sqM) Est GFR (CKD-EPI)NonAf >90 (>60 ml/min/1.73 sqM) Glucose 132 H (74-99) mg/dL Calcium 10.4 H (8.4-10.2) mg/dL Total Bilirubin 0.5 (0.2-1.3) mg/dL AST 30 (14-36) U/L ALT 28 (4-34) U/L Alkaline Phosphatase 77 (38-126) U/L Total Protein 8.4 H (6.3-8.2) g/dL Albumin 5.0 (3.5-5.0) g/dL Amylase 85 (30-110) U/L Lipase 236 (23-300) U/L Disposition Clinical Impression: Chronic pancreatitis, Epigastric pain Disposition: HOME SELF-CARE Condition: Good Instructions (If sedation given, give patient instructions): Epigastric Pain (ED) Additional Instructions: Please use medication as discussed. Please follow-up with family doctor in the next 2 days. Please return to emergency room if the symptoms increase or worsen or for any other concerns. Prescriptions: Ondansetron Odt [Zofran Odt] 4 mg PO Q8HR PRN 3 Days #9 tab PRN Reason: Nausea Is patient prescribed a controlled substance at d/c from ED?: No Referrals: Toi Chin [Primary Care Provider] - 1-2 days Time of Disposition: 14:04
[2020-09-09 12:52] LABS: Basophils # (A) 0.1 k/uL (0-0.2); Basophils % (A) 1 %; Eosinophils # (A) 0.2 k/uL (0-0.7); Eosinophils % (A) 2 %; HCT 40.6 % (34.0-46.0); HGB 13.8 gm/dL (11.4-16.0); Lymphocytes # (A) 2.4 k/uL (1.0-4.8); Lymphocytes % (A) 34 %; MCH 29.1 pg (25.0-35.0); MCHC 33.9 g/dL (31.0-37.0); MCV 85.6 fL (80.0-100.0); Mean Platelet Volume 6.4; Monocytes # (A) 0.3 k/uL (0-1.0); Monocytes % (A) 5 %; Neutrophils % (A) 57 %; Platelet Count 430 k/uL (150-450); RBC 4.74 m/uL (3.80-5.40); RDW 15.1 % (11.5-15.5); WBC 7.1 k/uL (3.8-10.6)
[2020-09-09 13:21] LABS: ALT 28 U/L (4-34); AST 30 U/L (14-36); African American GFR (CKD) >90 (>60 ml/min/1.73 sqM); Alkaline Phosphatase 77 U/L (38-126); Amylase 85 U/L (30-110); Anion Gap 10 mmol/L; Blood Urea Nitrogen 16 mg/dL (7-17); Calcium 10.4 mg/dL (8.4-10.2); Carbon Dioxide 26 mmol/L (22-30); Chloride 104 mmol/L (98-107); Glucose 132 mg/dL (74-99); Lipase 236 U/L (23-300); Non-African American GFR(CKD) >90 (>60 ml/min/1.73 sqM); Potassium 4.2 mmol/L (3.5-5.1); Sodium 140 mmol/L (137-145); Total Bilirubin 0.5 mg/dL (0.2-1.3); Total Protein 8.4 g/dL (6.3-8.2)
[2020-09-09] MEDS ORDERED: ACET/COD 300 MG/30 MG STARTER PACK 6 TAB BTL PO STA (14:03)
[2020-09-09 14:19] VITALS: BP 125/80; PULSE 86; RESP 18; TEMP 98.8
== END 2020-09-09 14:19 | disposition home or self-care (01) ==
LOC: EC 12:21
DX: K86.1 Other chronic pancreatitis (principal); R10.13 Epigastric pain; J44.9 Chronic obstructive pulmonary disease, unspecified; I10 Essential (primary) hypertension; M19.90 Unspecified osteoarthritis, unspecified site; G43.909 Migraine, unspecified, not intractable, without status migrainosus; F17.200 Nicotine dependence, unspecified, uncomplicated; Z79.51 Long term (current) use of inhaled steroids; Z79.899 Other long term (current) drug therapy; Z90.49 Acquired absence of other specified parts of digestive tract
CPT/HCPCS: 36415; 80053; 82150; 83690; 85025; 99284; 96374; 96375; 96376; 96361; J2405; J1170

== ENCOUNTER → 2020-09-10 | Outpatient (CLI) | payer BC ==
--- NOTE | 2020-09-10 15:48 | PE ---
EXAMINATION TYPE: PET CT fusion skull to thigh DATE OF EXAM: 09/10/2020 COMPARISON: CT abdomen and pelvis August 17, 2020 and older studies. HISTORY: Pelvic mass per patient. Renal cancer per order. Right-sided pain per patient. TECHNIQUE: Following the intravenous administration of 11.37 mCi of F-18 FDG, whole body images are performed from the skull base to the midthigh. Images are reviewed on the computer in the coronal, a xial, and sagittal planes. Reconstructed rotating images are created on independent workstation and reviewed on the computer. A localization and attenuation correction CT is performed in conjunction with the PET scan. SCAN: Initial Scan FINDINGS: SKULL BASE AND NECK: No suspicious hypermetabolic uptake. CHEST, MEDIASTINUM, AND HILAR REGION: Patient has persistent subcentimeter left axillary lymph nodes axial image 74 unchanged from February 27, 2020 CT in size, more posterior lateral lymph node shows incre ased hypermetabolic uptake, max SUV is 3.87. No additional areas of suspicious hypermetabolic uptake in the thorax. ABDOMEN AND PELVIS: Normal excretion is present. Persistent 1.5 cm oval hyperdense lesion along the r ight superior pelvic ramus adjacent to bladder axial image 214. This lesion is ametabolic. No bony de struction. No suspicious hypermetabolic uptake. OSSEOUS STRUCTURES: No suspicious hypermetabolic uptake. OTHER CT: Fairly moderate underlying emphysematous change. Coronary artery calcification redemonstrat ed. Calcifications and ductal dilatation consistent with chronic pancreatitis. Cholecystectomy clips. Facundo g segment postsurgical changes of the lumbar spine redemonstrated. Some fecal prominence in the rectu m. Partial visualization of surgical change in the right proximal femur. IMPRESSION: New well-defined hyperdense Lesion of concern in the right pelvis adjacent to superior pe lvic ramus shows no suspicious hypermetabolic uptake. Only focus of abnormal hypermetabolic uptake co rresponds to subcentimeter left axillary lymph node. Lymph node favor postinflammatory. Follow-up is advised. In female patient mammogram and ultrasound correlation is advised.
== END | disposition home or self-care (01) ==
LOC: RADPETMAIN 13:02
PROVIDERS: ATTEND Family Medicine
DX: R93.5 Abnormal findings on diagnostic imaging of other abdominal regions, including retroperitoneum (principal); C76.3 Malignant neoplasm of pelvis
CPT/HCPCS: 78815; A9552

== ENCOUNTER 2020-09-11 10:12 | Emergency (ER) | payer BC ==
[2020-09-11 10:20] VITALS: RESP 18; TEMP 98.6
[2020-09-11] MEDS ORDERED: SODIUM CHLORIDE 0.9% 500 ML 500 ML IV STA (10:37)
[2020-09-11] MEDS ORDERED: HYDROmorphone 0.5 MG/0.5 ML SYRINGE IVP STA (10:37)
[2020-09-11] MEDS ORDERED: ONDANSETRON 4 MG/2 ML VIAL IVP STA (10:37)
--- NOTE | 2020-09-11 10:41 | ED ---
General Adult HPI - General Chief complaint: Abdominal Pain Stated complaint: throwing up blood Time Seen by Provider: 09/11/20 10:20 Source: patient, RN notes reviewed, old records reviewed Mode of arrival: wheelchair Limitations: no limitations - History of Present Illness Initial comments: This is a 64-year-old female has past medical history significant for chronic pancreatitis. Patient states she states she's Aggravated his temperature because she has pain in her epigastric area. Patient states she is also very nauseated and vomiting. Patient states the pain started 2 days ago and it continues today. Patient denies any fever chills per patient denies chest pain difficulty breathing shortness of breath. Patient denies any lower abdominal pain. Patient denies dysuria hematuria urinary frequency. Patient denies any diarrhea. - Related Data Home Medications Medication Instructions Recorded Confirmed Atorvastatin [Lipitor] 40 mg PO HS 03/18/20 09/09/20 Ticagrelor [Brilinta] 90 mg PO BID 03/18/20 09/09/20 Albuterol Inhaler [Ventolin Hfa 2 puff INHALATION RT-Q4H PRN 06/21/20 09/09/20 Inhaler] Gabapentin [Neurontin] 100 mg PO TID 06/24/20 09/09/20 Cholecalciferol [Vitamin D3 (25 2,000 unit PO DAILY 07/26/20 09/09/20 Mcg = 1000 Iu)] Loperamide [Imodium] 2 mg PO QID PRN 07/30/20 09/09/20 traMADol HCl [Ultram] 100 mg PO Q4HR PRN 07/30/20 09/09/20 atenoloL [Atenolol] 25 mg PO DAILY 08/17/20 09/09/20 amLODIPine BESYLATE/BENAZEPRIL 1 cap PO DAILY 09/09/20 09/09/20 [Lotrel 5-10 MG] Previous Rx's Medication Instructions Recorded Diphenox-Atrop 2.5-0.025 mg 1 tab PO 5XD PRN 3 Days #15 tablet 08/22/20 [Lomotil] Ondansetron Odt [Zofran Odt] 4 mg PO Q8HR PRN 3 Days #9 tab 09/09/20 Allergies Allergy/AdvReac Type Severity Reaction Status Date / Time No Known Allergies Allergy Verified 09/11/20 10:21 Review of Systems ROS Statement: Those systems with pertinent positive or pertinent negative responses have been documented in the HPI. ROS Other: All systems not noted in ROS Statement are negative. 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/hx fx l2, hx anemia, pancreatits History of Any Multi-Drug Resistant Organisms: None Reported Past Surgical History: Appendectomy, Back Surgery, Cholecystectomy, Orthopedic Surgery, Tonsillectomy Additional Past Surgical History / Comment(s): Pancreatic stents-since removed, 6 back surgeries with 2 fusions, right oophorectomy due to ectopic , EGD/colonoscopy, right leg alice inserted d/t fracture, Past Anesthesia/Blood Transfusion Reactions: No Reported Reaction Additional Past Anesthesia/Blood Transfusion Reaction / Comment(s): DIFF IV STARTS, Pt has received blood in past without reaction. Past Psychological History: No Psychological Hx Reported Smoking Status: Current every day smoker Past Alcohol Use History: None Reported Past Drug Use History: None Reported - Past Family History Father Family Medical History: Cancer Mother Family Medical History: Cancer, CVA/TIA Additional Family Medical History / Comment(s): breast and colon cancer. General Exam - General Exam Comments Initial Comments: GENERAL: Patient is well-developed and well-nourished. Patient is nontoxic and well- hydrated and is in mild distress. ENT: Neck is soft and supple. No significant lymphadenopathy is noted. Oropharynx is clear. Moist mucous membranes. Neck has full range of motion without eliciting any pain. EYES: The sclera were anicteric and conjunctiva were pink and moist. Extraocular movements were intact and pupils were equal round and reactive to light. Eyelids were unremarkable. PULMONARY: Unlabored respirations. Good breath sounds bilaterally. No audible rales rhonchi or wheezing was noted. CARDIOVASCULAR: There is a regular rate and rhythm without any murmurs gallops or rubs. ABDOMEN: Mild epigastric abdominal pain on palpation. SKIN: Skin is clear with no lesions or rashes and otherwise unremarkable. NEUROLOGIC: Patient is alert and oriented x3. Cranial nerves II through XII are grossly intact. Motor and sensory are also intact. Normal speech, volume and content. Symmetrical smile. MUSCULOSKELETAL: Normal extremities with adequate strength and full range of motion. LYMPHATICS: No significant lymphadenopathy is noted PSYCHIATRIC: Normal psychiatric evaluation. Limitations: no limitations Course Vital Signs 09/11/20 10:18 Temperature 98.6 F Pulse Rate 108 H Respiratory 18 Rate Blood Pressure 124/66 O2 Sat by Pulse 100 Oximetry Medical Decision Making - Medical Decision Making EKG shows normal sinus rhythm at [address] interval is on a 44 dresses 76 QT interval 398 QTC is 476. Patient's EKG shows no ST segment elevation or depression. One taken the room to reevaluate the patient she was at this point in time feeling a little better but still had some consistent pain. I discussed results of the labs with the patient she stated that she just needed a few Tylenol with Codeine because she ran out and she did not want to stay in the hospital because this is been her chronic abdominal pain. - Lab Data Result diagrams: 09/11/20 10:45 09/11/20 10:45 Lab Results 09/11/20 09/11/20 09/11/20 Range/Units 10:45 10:45 11:10 WBC 5.7 (3.8-10.6) k/uL RBC 4.46 (3.80-5.40) m/uL Hgb 13.1 (11.4-16.0) gm/dL Hct 38.5 (34.0-46.0) % MCV 86.3 (80.0-100.0) fL MCH 29.5 (25.0-35.0) pg MCHC 34.1 (31.0-37.0) g/dL RDW 15.1 (11.5-15.5) % Plt Count 394 (150-450) k/uL MPV 6.8 Neutrophils % 58 % Lymphocytes % 32 % Monocytes % 6 % Eosinophils % 3 % Basophils % 1 % Neutrophils # 3.3 (1.3-7.7) k/uL Lymphocytes # 1.8 (1.0-4.8) k/uL Monocytes # 0.4 (0-1.0) k/uL Eosinophils # 0.2 (0-0.7) k/uL Basophils # 0.1 (0-0.2) k/uL Sodium 140 (137-145) mmol/L Potassium 4.1 (3.5-5.1) mmol/L Chloride 106 (98-107) mmol/L Carbon Dioxide 26 (22-30) mmol/L Anion Gap 8 mmol/L BUN 16 (7-17) mg/dL Creatinine 0.68 (0.52-1.04) mg/dL Est GFR (CKD-EPI)AfAm >90 (>60 ml/min/1.73 sqM) Est GFR (CKD-EPI)NonAf >90 (>60 ml/min/1.73 sqM) Glucose 128 H (74-99) mg/dL Calcium 10.0 (8.4-10.2) mg/dL Total Bilirubin 0.4 (0.2-1.3) mg/dL AST 23 (14-36) U/L ALT 22 (4-34) U/L Alkaline Phosphatase 75 (38-126) U/L Total Protein 7.8 (6.3-8.2) g/dL Albumin 4.6 (3.5-5.0) g/dL Amylase 69 (30-110) U/L Lipase 259 (23-300) U/L Urine Color Yellow Urine Appearance Cloudy H (Clear) Urine pH 5.5 (5.0-8.0) Ur Specific [place] 1.023 (1.001-1.035) Urine Protein Trace H (Negative) Urine Glucose (UA) 2+ H (Negative) Urine Ketones Negative (Negative) Urine Blood Small H (Negative) Urine Nitrite Negative (Negative) Urine Bilirubin Negative (Negative) Urine Urobilinogen <2.0 (<2.0) mg/dL Ur Leukocyte Esterase Small H (Negative) Urine RBC 4 (0-5) /hpf Urine WBC 2 (0-5) /hpf Ur Squamous Epith Cells 5 H (0-4) /hpf Hyaline Casts 1 (0-2) /lpf Urine Mucus Few H (None) /hpf Disposition Clinical Impression: Chronic abdominal pain Disposition: HOME SELF-CARE Instructions (If sedation given, give patient instructions): Abdominal Pain (ED) Is patient prescribed a controlled substance at d/c from ED?: No Referrals: Toi Chin [Primary Care Provider] - 1-2 days Time of Disposition: 12:04
[2020-09-11 11:00] LABS: Basophils # (A) 0.1 k/uL (0-0.2); Basophils % (A) 1 %; Eosinophils # (A) 0.2 k/uL (0-0.7); Eosinophils % (A) 3 %; HCT 38.5 % (34.0-46.0); HGB 13.1 gm/dL (11.4-16.0); Lymphocytes # (A) 1.8 k/uL (1.0-4.8); Lymphocytes % (A) 32 %; MCH 29.5 pg (25.0-35.0); MCHC 34.1 g/dL (31.0-37.0); MCV 86.3 fL (80.0-100.0); Mean Platelet Volume 6.8; Monocytes # (A) 0.4 k/uL (0-1.0); Monocytes % (A) 6 %; Neutrophils # (A) 3.3 k/uL (1.3-7.7); Neutrophils % (A) 58 %; Platelet Count 394 k/uL (150-450); RBC 4.46 m/uL (3.80-5.40); RDW 15.1 % (11.5-15.5); WBC 5.7 k/uL (3.8-10.6)
[2020-09-11 11:05] LABS: ALT 22 U/L (4-34); AST 23 U/L (14-36); African American GFR (CKD) >90 (>60 ml/min/1.73 sqM); Albumin 4.6 g/dL (3.5-5.0); Alkaline Phosphatase 75 U/L (38-126); Amylase 69 U/L (30-110); Anion Gap 8 mmol/L; Blood Urea Nitrogen 16 mg/dL (7-17); Carbon Dioxide 26 mmol/L (22-30); Chloride 106 mmol/L (98-107); Glucose 128 mg/dL (74-99); Lipase 259 U/L (23-300); Non-African American GFR(CKD) >90 (>60 ml/min/1.73 sqM); Potassium 4.1 mmol/L (3.5-5.1); Sodium 140 mmol/L (137-145); Total Bilirubin 0.4 mg/dL (0.2-1.3); Total Protein 7.8 g/dL (6.3-8.2)
[2020-09-11 11:27] LABS: Appearance,Urine Cloudy (Clear); Bilirubin,Urine Negative (Negative); Blood,Urine Small (Negative); Color,Urine Yellow; Glucose,Urine (UA) 2+ (Negative); Hyaline Casts,Urine 1 /lpf (0-2); Ketones,Urine Negative (Negative); Leukocyte Esterase,Urine Small (Negative); Mucus,Urine Few /hpf; Nitrite,Urine Negative (Negative); PH, Urine 5.5 (5.0-8.0); Protein,Urine Trace (Negative); RBC,Urine 4 /hpf (0-5); Specific Gravity,Urine 1.023 (1.001-1.035); Squamous Epithelial Cell,Urine 5 /hpf (0-4); Urobilinogen,Urine <2.0 mg/dL (<2.0); WBC,Urine 2 /hpf (0-5)
[2020-09-11] MEDS ORDERED: ACET/COD 300 MG/30 MG STARTER PACK 6 TAB BTL PO STA (12:04)
[2020-09-11 12:26] VITALS: BP 135/79; PULSE 86
== END 2020-09-11 12:25 | disposition home or self-care (01) ==
LOC: EC 10:12
DX: R10.13 Epigastric pain (principal); G89.29 Other chronic pain; R11.2 Nausea with vomiting, unspecified; J44.9 Chronic obstructive pulmonary disease, unspecified; K21.9 Gastro-esophageal reflux disease without esophagitis; I10 Essential (primary) hypertension; M19.90 Unspecified osteoarthritis, unspecified site; F17.200 Nicotine dependence, unspecified, uncomplicated; Z79.899 Other long term (current) drug therapy; Z90.49 Acquired absence of other specified parts of digestive tract; Z86.69 Personal history of other diseases of the nervous system and sense organs; Z98.1 Arthrodesis status; Z90.721 Acquired absence of ovaries, unilateral; Z86.73 Personal history of transient ischemic attack (TIA), and cerebral infarction without residual deficits; Z80.0 Family history of malignant neoplasm of digestive organs
CPT/HCPCS: 36415; 93005; 80053; 82150; 83690; 85025; 81001; 99284; 96374; 96375; 96361; J2405; J1170

== ENCOUNTER 2020-09-16 10:38 | Emergency (ER) | payer BC ==
[2020-09-16] MEDS ORDERED: HYDROmorphone 0.5 MG/0.5 ML SYRINGE IVP STA ×2 (11:33→13:06)
[2020-09-16] MEDS ORDERED: ONDANSETRON 4 MG/2 ML VIAL IVP STA (11:33)
--- NOTE | 2020-09-16 11:36 | ED ---
Abdominal Pain HPI - General Source: patient, RN notes reviewed Mode of arrival: ambulatory Limitations: no limitations <Danilo Nayak - Last Filed: 09/16/20 11:33> <Bulmaro Brownlee P - Last Filed: 09/16/20 13:07> - General Chief Complaint: Abdominal Pain Stated Complaint: Abd pain/vomiting/blood in urine Time Seen by Provider: 09/16/20 10:51 - History of Present Illness Initial Comments: This is a 64-year-old female presents emergency Department with chief complaint of abdominal pain. Patient is well-known emergency department. She states that she's had increasing abdominal pain. Patient does admit that she is out of her Tylenol with codeine. Patient called her PCP states she is appointment on the . Patient states that she was told that she is 3 days early for her prescription refill. She states she's noticed that she's had blood in her urine but states that she has no history kidney stones no dysuria denies any increased urinary frequency no fevers chills no flank pain. Patient hasn't some nausea no symptom vomiting no diarrhea (Danilo Nayak) - Related Data Home Medications Medication Instructions Recorded Confirmed Atorvastatin [Lipitor] 40 mg PO HS 03/18/20 09/16/20 Ticagrelor [Brilinta] 90 mg PO BID 03/18/20 09/16/20 Albuterol Inhaler [Ventolin Hfa 2 puff INHALATION RT-Q4H PRN 06/21/20 09/16/20 Inhaler] Gabapentin [Neurontin] 100 mg PO TID 06/24/20 09/16/20 Cholecalciferol [Vitamin D3 (25 2,000 unit PO DAILY 07/26/20 09/16/20 Mcg = 1000 Iu)] Loperamide [Imodium] 2 mg PO QID PRN 07/30/20 09/16/20 traMADol HCl [Ultram] 100 mg PO Q4HR PRN 07/30/20 09/16/20 atenoloL [Atenolol] 25 mg PO DAILY 08/17/20 09/16/20 amLODIPine BESYLATE/BENAZEPRIL 1 cap PO DAILY 09/09/20 09/16/20 [Lotrel 5-10 MG] Previous Rx's Medication Instructions Recorded Diphenox-Atrop 2.5-0.025 mg 1 tab PO 5XD PRN 3 Days #15 tablet 08/22/20 [Lomotil] Ondansetron Odt [Zofran Odt] 4 mg PO Q8HR PRN 3 Days #9 tab 09/09/20 Allergies Allergy/AdvReac Type Severity Reaction Status Date / Time No Known Allergies Allergy Verified 09/16/20 11:34 Review of Systems ROS Other: All systems not noted in ROS Statement are negative. <Danilo Nayak - Last Filed: 09/16/20 11:33> ROS Other: All systems not noted in ROS Statement are negative. <Bulmaro Brownlee - Last Filed: 09/16/20 13:07> ROS Statement: Those systems with pertinent positive or pertinent negative responses have been documented in the HPI. 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/hx fx l2, hx anemia, pancreatits History of Any Multi-Drug Resistant Organisms: None Reported Past Surgical History: Appendectomy, Back Surgery, Cholecystectomy, Orthopedic Surgery, Tonsillectomy Additional Past Surgical History / Comment(s): Pancreatic stents-since removed, 6 back surgeries with 2 fusions, right oophorectomy due to ectopic , EGD/colonoscopy, right leg alice inserted d/t fracture, Past Anesthesia/Blood Transfusion Reactions: No Reported Reaction Additional Past Anesthesia/Blood Transfusion Reaction / Comment(s): DIFF IV STARTS, Pt has received blood in past without reaction. Past Psychological History: No Psychological Hx Reported Smoking Status: Current every day smoker Past Alcohol Use History: None Reported Past Drug Use History: None Reported - Past Family History Father Family Medical History: Cancer Mother Family Medical History: Cancer, CVA/TIA Additional Family Medical History / Comment(s): breast and colon cancer. <Danilo Nayak - Last Filed: 09/16/20 11:33> General Exam Limitations: no limitations General appearance: alert, in no apparent distress Head exam: Present: atraumatic, normocephalic, normal inspection Eye exam: Present: normal appearance, PERRL, EOMI. Absent: scleral icterus, conjunctival injection, periorbital swelling ENT exam: Present: normal exam, normal oropharynx, mucous membranes moist Neck exam: Present: normal inspection, full ROM. Absent: tenderness, meningismus, lymphadenopathy Respiratory exam: Present: normal lung sounds bilaterally. Absent: respiratory distress, wheezes, rales, rhonchi, stridor Cardiovascular Exam: Present: regular rate, normal rhythm, normal heart sounds. Absent: systolic murmur, diastolic murmur, rubs, gallop, clicks GI/Abdominal exam: Present: soft, tenderness, normal bowel sounds. Absent: distended, guarding, rebound, rigid Back exam: Absent: CVA tenderness (R), CVA tenderness (L) Neurological exam: Present: alert Psychiatric exam: Present: normal affect, normal mood <Danilo Nayak - Last Filed: 09/16/20 11:33> Course Vital Signs 09/16/20 10:42 Temperature 98.2 F Pulse Rate 89 Respiratory 16 Rate Blood Pressure 116/68 O2 Sat by Pulse 98 Oximetry Medical Decision Making - Lab Data Result diagrams: 09/16/20 11:29 09/16/20 11:29 <Bulmaro Brownlee - Last Filed: 09/16/20 13:07> - Medical Decision Making Patient care was signed out to me at noon by danilo nayak. Patient is presenting for abdominal pain. This is her chronic pain. Laboratory evaluation is unremarkable. Urinalysis does show hematuria with large blood and 3 red blood cells which patient was complaining of. I did reevaluate patient and she states her pain is improving. Patient is requesting a starter pack of Tylenol 3. I did discuss that I cannot give this to her as she ran out of her pain medication early. I will give her another dose of IV pain medication while she is in the ER. Patient will follow up with her primary care provider for this chronic pain. (Bulmaro Brownlee) - Lab Data Lab Results 09/16/20 09/16/20 09/16/20 Range/Units 11:29 11:29 12:02 WBC 7.6 (3.8-10.6) k/uL RBC 4.45 (3.80-5.40) m/uL Hgb 12.5 (11.4-16.0) gm/dL Hct 39.1 (34.0-46.0) % MCV 87.8 (80.0-100.0) fL MCH 28.1 (25.0-35.0) pg MCHC 32.0 (31.0-37.0) g/dL RDW 15.3 (11.5-15.5) % Plt Count 422 (150-450) k/uL MPV 7.1 Neutrophils % 47 % Lymphocytes % 40 % Monocytes % 5 % Eosinophils % 5 % Basophils % 1 % Neutrophils # 3.6 (1.3-7.7) k/uL Lymphocytes # 3.1 (1.0-4.8) k/uL Monocytes # 0.4 (0-1.0) k/uL Eosinophils # 0.4 (0-0.7) k/uL Basophils # 0.0 (0-0.2) k/uL Sodium 140 (137-145) mmol/L Potassium 4.0 (3.5-5.1) mmol/L Chloride 111 H (98-107) mmol/L Carbon Dioxide 22 (22-30) mmol/L Anion Gap 7 mmol/L BUN 11 (7-17) mg/dL Creatinine 0.65 (0.52-1.04) mg/dL Est GFR (CKD-EPI)AfAm >90 (>60 ml/min/1.73 sqM) Est GFR (CKD-EPI)NonAf >90 (>60 ml/min/1.73 sqM) Glucose 103 H (74-99) mg/dL Calcium 9.6 (8.4-10.2) mg/dL Total Bilirubin 0.3 (0.2-1.3) mg/dL AST 21 (14-36) U/L ALT 18 (4-34) U/L Alkaline Phosphatase 74 (38-126) U/L Total Protein 7.4 (6.3-8.2) g/dL Albumin 4.4 (3.5-5.0) g/dL Lipase 329 H (23-300) U/L Urine Color Red Urine Appearance Cloudy H (Clear) Urine pH 6.0 (5.0-8.0) Ur Specific [place] 1.015 (1.001-1.035) Urine Protein 2+ H (Negative) Urine Glucose (UA) 3+ H (Negative) Urine Ketones Negative (Negative) Urine Blood Large H (Negative) Urine Nitrite Negative (Negative) Urine Bilirubin Negative (Negative) Urine Urobilinogen <2.0 (<2.0) mg/dL Ur Leukocyte Esterase Small H (Negative) Urine RBC 3 (0-5) /hpf Urine WBC 4 (0-5) /hpf Ur Squamous Epith Cells 1 (0-4) /hpf Urine Bacteria Rare H (None) /hpf Urine Mucus Few H (None) /hpf Disposition <Danilo Nayak - Last Filed: 09/16/20 11:33> Is patient prescribed a controlled substance at d/c from ED?: No Time of Disposition: 13:06 <Bulmaro Brownlee P - Last Filed: 09/16/20 13:07> Clinical Impression: Chronic abdominal pain, Hematuria Disposition: HOME SELF-CARE Condition: Good Instructions (If sedation given, give patient instructions): Abdominal Pain (ED) Additional Instructions: Please follow-up with your doctor to discuss chronic abdominal pain and blood in urine. Return to the emergency room for any worsening symptoms. Referrals: Toi Chin [Primary Care Provider] - 1-2 days
[2020-09-16 11:39] LABS: Basophils % (A) 1 %; Eosinophils # (A) 0.4 k/uL (0-0.7); Eosinophils % (A) 5 %; HCT 39.1 % (34.0-46.0); HGB 12.5 gm/dL (11.4-16.0); Lymphocytes # (A) 3.1 k/uL (1.0-4.8); Lymphocytes % (A) 40 %; MCH 28.1 pg (25.0-35.0); MCV 87.8 fL (80.0-100.0); Mean Platelet Volume 7.1; Monocytes # (A) 0.4 k/uL (0-1.0); Monocytes % (A) 5 %; Neutrophils # (A) 3.6 k/uL (1.3-7.7); Neutrophils % (A) 47 %; Platelet Count 422 k/uL (150-450); RBC 4.45 m/uL (3.80-5.40); RDW 15.3 % (11.5-15.5); WBC 7.6 k/uL (3.8-10.6)
[2020-09-16 11:49] LABS: ALT 18 U/L (4-34); AST 21 U/L (14-36); African American GFR (CKD) >90 (>60 ml/min/1.73 sqM); Albumin 4.4 g/dL (3.5-5.0); Alkaline Phosphatase 74 U/L (38-126); Anion Gap 7 mmol/L; Blood Urea Nitrogen 11 mg/dL (7-17); Calcium 9.6 mg/dL (8.4-10.2); Carbon Dioxide 22 mmol/L (22-30); Chloride 111 mmol/L (98-107); Glucose 103 mg/dL (74-99); Lipase 329 U/L (23-300); Non-African American GFR(CKD) >90 (>60 ml/min/1.73 sqM); Sodium 140 mmol/L (137-145); Total Bilirubin 0.3 mg/dL (0.2-1.3); Total Protein 7.4 g/dL (6.3-8.2)
[2020-09-16 12:34] LABS: Appearance,Urine Cloudy (Clear); Bacteria,Urine Rare /hpf; Bilirubin,Urine Negative (Negative); Blood,Urine Large (Negative); Color,Urine Red; Glucose,Urine (UA) 3+ (Negative); Ketones,Urine Negative (Negative); Leukocyte Esterase,Urine Small (Negative); Mucus,Urine Few /hpf; Nitrite,Urine Negative (Negative); Protein,Urine 2+ (Negative); RBC,Urine 3 /hpf (0-5); Specific Gravity,Urine 1.015 (1.001-1.035); Squamous Epithelial Cell,Urine 1 /hpf (0-4); Urobilinogen,Urine <2.0 mg/dL (<2.0); WBC,Urine 4 /hpf (0-5)
[2020-09-16 13:25] VITALS: BP 102/64; PULSE 60; RESP 18; TEMP 97.5
== END 2020-09-16 13:39 | disposition home or self-care (01) ==
LOC: EC 10:38
DX: G89.29 Other chronic pain (principal); R10.9 Unspecified abdominal pain; R31.9 Hematuria, unspecified; J44.9 Chronic obstructive pulmonary disease, unspecified; I10 Essential (primary) hypertension; M19.90 Unspecified osteoarthritis, unspecified site; G43.909 Migraine, unspecified, not intractable, without status migrainosus; I69.354 Hemiplegia and hemiparesis following cerebral infarction affecting left non-dominant side; F17.200 Nicotine dependence, unspecified, uncomplicated; Z79.51 Long term (current) use of inhaled steroids; Z79.899 Other long term (current) drug therapy; Z87.19 Personal history of other diseases of the digestive system; Z90.49 Acquired absence of other specified parts of digestive tract; Z98.890 Other specified postprocedural states
CPT/HCPCS: 36415; 80053; 83690; 85025; 81001; 99284; 96374; 96375; 96376; J2405; J1170

== ENCOUNTER → 2020-09-23 | Outpatient (CLI) | payer BC ==
[2020-09-23 14:08] LABS: Basophils % (A) 1 %; Eosinophils # (A) 0.3 k/uL (0-0.7); Eosinophils % (A) 4 %; HCT 39.1 % (34.0-46.0); HGB 12.1 gm/dL (11.4-16.0); Lymphocytes # (A) 2.5 k/uL (1.0-4.8); Lymphocytes % (A) 34 %; MCH 28.3 pg (25.0-35.0); MCHC 30.8 g/dL (31.0-37.0); MCV 91.8 fL (80.0-100.0); Mean Platelet Volume 6.8; Monocytes # (A) 0.4 k/uL (0-1.0); Monocytes % (A) 6 %; Neutrophils % (A) 54 %; Platelet Count 348 k/uL (150-450); RBC 4.26 m/uL (3.80-5.40); RDW 15.7 % (11.5-15.5); WBC 7.4 k/uL (3.8-10.6)
[2020-09-23 14:11] LABS: INR 0.9 (<1.2); Prothrombin Time 9.8 sec (9.0-12.0)
[2020-09-23 14:17] LABS: Albumin 4.4 g/dL (3.5-5.0); Calcium 9.4 mg/dL (8.4-10.2); Potassium 4.7 mmol/L (3.5-5.1); Total Bilirubin 0.4 mg/dL (0.2-1.3); Total Protein 7.2 g/dL (6.3-8.2)
--- NOTE | 2020-09-23 16:04 | XR ---
EXAMINATION TYPE: XR chest 2V DATE OF EXAM: 09/23/2020 COMPARISON: 04/26/2020 INDICATION: Preop back surgery COPD TECHNIQUE: Frontal and lateral views of the chest are obtained. FINDINGS: The heart size is normal. The pulmonary vasculature is normal. The lungs are clear. There is hyperinflation flattening the diaphragms compatible COPD IMPRESSION: 1. No acute pulmonary process. 2. COPD
== END | disposition home or self-care (01) ==
LOC: LABPAT 12:55
PROVIDERS: ATTEND Orthopaedic Surgery
DX: Z01.818 Encounter for other preprocedural examination (principal); S32.028D Other fracture of second lumbar vertebra, subsequent encounter for fracture with routine healing; T84.296D Other mechanical complication of internal fixation device of vertebrae, subsequent encounter; Z22.322 Carrier or suspected carrier of Methicillin resistant Staphylococcus aureus; J44.9 Chronic obstructive pulmonary disease, unspecified
CPT/HCPCS: 36415; 71046; 80053; 85025; 85610; 87070

== ENCOUNTER 2020-09-28 05:53 | Inpatient (IN) | payer BC ==
--- NOTE | 2020-09-27 16:27 | P.HPOR ---
History of Present Illness H&P Date: 09/20/20 Chief Complaint: Back pain, leg weakness This 64 year old female presents with 7 months of low back pain. She had a previous fusion 2 years ago. She states that she has a lump on her back that causes pain. Patient notes pain that radiates down his left leg. He has numbness and tingling that increases with walking. She has significant night time symptoms. Patient states that she can not apply pressure to the back without severe pain. Patient is on Brilenta daily along with [place] as needed and Ultram/Motrin as needed. Patient was fused by Dr. Farris at [facility] a couple years prior. This did help her for some time however now her hardware is becoming prominent and she is having a lot of pain in her low back. The patients' past social, medical, family, surgical history, as well as review of systems, have been reviewed. Please refer to the Neurosurgery History and Physical form that has been scanned in to our electronic medical record system. 14 points review of systems completed and as stated in HPI or otherwise negative. Review of Systems 14 points review of systems completed and as stated in HPI, all other systems reviewed are negative. Past Medical History Past Medical History: COPD, CVA/TIA, GERD/Reflux, Hyperlipidemia, Hypertension, Osteoarthritis (OA) Additional Past Medical History / Comment(s): migraines, stroke Sep 2019-left side weakness, hiatal hernia, diarrhea, chronic pancreatitis, osteoarthritis in back/hx fx lower lumbar, hx anemia History of Any Multi-Drug Resistant Organisms: None Reported Past Surgical History: Appendectomy, Back Surgery, Cholecystectomy, Orthopedic Surgery, Tonsillectomy Additional Past Surgical History / Comment(s): Pancreatic stents-since removed, 6 back surgeries with 2 fusions, right oophorectomy due to ectopic , EGD/colonoscopy, ORIF right femur w/titanium alice Past Anesthesia/Blood Transfusion Reactions: No Reported Reaction Additional Past Anesthesia/Blood Transfusion Reaction / Comment(s): DIFF IV S TARTS, Pt has received blood in past without reaction. Smoking Status: Current every day smoker - Past Family History Father Family Medical History: Cancer Mother Family Medical History: Cancer, CVA/TIA Additional Family Medical History / Comment(s): breast and colon cancer. Medications and Allergies Home Medications Medication Instructions Recorded Confirmed Type Atorvastatin [Lipitor] 40 mg PO HS 03/18/20 09/22/20 History Albuterol Inhaler [Ventolin Hfa 2 puff INHALATION RT-Q4H PRN 06/21/20 09/22/20 History Inhaler] Gabapentin [Neurontin] 100 mg PO TID 06/24/20 09/22/20 History Cholecalciferol [Vitamin D3 (25 2,000 unit PO DAILY 07/26/20 09/22/20 History Mcg = 1000 Iu)] atenoloL [Atenolol] 25 mg PO DAILY 08/17/20 09/22/20 History Diphenox-Atrop 2.5-0.025 mg 1 tab PO 5XD PRN 3 Days #15 tablet 08/22/20 09/22/20 Rx [Lomotil] Ondansetron Odt [Zofran Odt] 4 mg PO Q8HR PRN 3 Days #9 tab 09/09/20 09/22/20 Rx amLODIPine BESYLATE/BENAZEPRIL 1 cap PO DAILY 09/09/20 09/22/20 History [Lotrel 5-10 MG] Aspirin 81 mg PO DAILY 09/22/20 09/22/20 History Butalb/Asprin/Caff 50-325-40Mg 1 - 2 cap PO Q4HR PRN 09/22/20 09/22/20 History [Fiorinal 50-325-40 MG] HYDROcodone/APAP 10-325MG [[place] 1 tab PO Q4HR PRN 09/22/20 09/22/20 History 10-325] Allergies Allergy/AdvReac Type Severity Reaction Status Date / Time No Known Allergies Allergy Verified 09/22/20 15:20 Physical Examination Osteopathic Statement: *. No significant issues noted on an osteopathic structural exam other than those noted in the History and Physical/Consult. General: Awake, alert, appropriate for age, in no acute distress. HEENT: No unusual neck masses around region of lateral neck triangle, thyroid, supraclavicular groove Extremities: Skin warm and dry without acute lesions, coloration, temperature, skin intact, no tenderness or erythema Integument: Hairy patches: Absent Dorsal skin dimples: Absent Cafe au lait spots: Absent Surgical incisions: Posterior midline incision well healed. Prominence of hardware and/or spinous process within the midline of the upper portion of the incision. Palpation: Please see Pain drawing on Intake sheet for further detail. Midline spinal tenderness: yes thoracic lumbar E6 Paralumbar tenderness: yes E6 Parathoracic tenderness: yes E6 Buttocks tenderness: No E6 Special findings: hardware prominence palpable POSTURAL and MUSCULO-SKELETAL EVALUATION: Coronal Balance: Neutral Recumbent testing: Patient is unable to lay flat on back without pain Sagittal Balance: positive Shoulder Profile: level Pelvic Girdle: level Neck ROM: Unrestricted Lumbar ROM: Unrestricted Shoulder ROM: Symmetric in abduction, ER/IR Hip ROM: Symmetric in abduction, adduction, ER/IR Knee ROM: Symmetric and intact in Flexion / extension VASCULAR STATUS : LEFT RIGHT Wrist Pulses intact intact Pedal Pulses (Dors. pedis & post.tibialis) intact intact Color normal normal Edema Absent Absent NEUROLOGIC EXAMINATION: Mental Status: Awake and alert, fully oriented, with normal attention, concentration and memory, and fluent, appropriate speech. Cranial Nerves: I: Olfactory not tested. II: Visual acuity normal, no visual field deficit noted with confrontation. III,IV: Normal pupillary reflexes & intact extraocular movements without nystagmus. V,: Intact symmetrical facial sensation. VII: Intact symmetrical facial motor movement VIII: Hearing intact. IX,X: Intact swallow, & normal voice. XI: Sternocleidomastoid, trapezius function intact. XII: Tongue midline with normal movements. L'hermitte's Sign: Negative / absent Spurling'Sign: Absent bilaterally. Cubital percussion test: Absent bilaterally. Marcelo-Tinel sign - Carpal region: Absent bilaterally. Straight Leg Raising: Absent bilaterally. Crossed straight leg raise: negative O8 MOTOR EXAM (0-5/5, N/T) STRENGTH RIGHT LEFT Shoulder Abd (not part of the MAX score) 5 5 Elbow Flexors 5 5 Elbow Extensor 5 5 Wrist Dorsiflexors 5 5 Finger Abductor 5 5 [employer]k [employer] Racker 5 5 Hip Flexor (Not part of MAX Motor score) 5 5 Knee Flexor 5 5 Knee Extensor 5 5 Ankle dorsiflexor 5 5 Ankle plantarflexion 5 5 Extensor hallucis 5 5 patient has generalized weakness overall. Secondary to her nutritional status as well as her health status. REFLEXES(0-4/2, NT) RIGHT LEFT Upper Extremities 2 2 Lower Extremities 2 2 Pathological Reflexes RIGHT LEFT Beal's Absent Absent Clonus Absent Absent negative Babinskis bilaterally Muscle appearance: normal tone no fasciculations Rectal Tone: Normal, strong with volition control Sensory system (0-4, N/T) Test type RU ALONA RL LL Joint-Position 2 2 2 2 Vibration 2 2 2 2 Pain & LT sense 2 2 2 2 Dermatomal Deficit: none none none none Gait and Functional Evaluation: Ambulatory aids: Cane Romberg's test: Intact bilaterally Toe heel walk / heel-toe walk intact while maintaining satisfactory balance? No Squatting/straightening w/o assistance to a min of 60 degree knee flexion? No Single leg stance:positive trendelenburg bilaterally Hand and finger dexterity intact bilaterally? yes Disdiadochokinesis examination negative bilaterally? yes Results AP lateral flexion extension radiographs of lumbar spine obtained and reviewed as well as AP pelvis. These demonstrate extensive postsurgical changes with a posterior lateral and interbody fusion from L2 to S1. The hardware has failed at L2 there is a fracture of L2 and significant adjacent segment disease between L2 and L1. The interbody devices placed appear to be in good position. The rest of the hardware appears to be in good position. There is local kyphosis at the L1-2 level secondary to this deformity and fracture. AP pelvis demonstrates postsurgical changes of the right femur with retrograde femoral nail placement in good position otherwise femoral acetabular joints are congruent pelvis is level and no fractures or dislocations are noted. CT thoracic and lumbar spine obtained and reviewed. Myelogram was unable to perform secondary to access limitations secondary to hardware. This does demonstrate that there is proximal junctional failure at the L1-2 region with fracture of the L2 vertebral body with protrusion of the screws into the L1-2 disc space. There is severe spondylosis at this level there is kyphosis acutely at this level. The remainder the fusion appears to be in the ray with no other acute areas of hardware failure noted. There is good bony fusion between L5 and S1. There are cage placements at 23 and 45 which appeared to be stable. There is some fusion across these segments although I suspect pseudoarthrosis in these areas. No other fractures or dislocations noted. Alignment is fairly well maintained. There is a degree of osteopenia osteoporosis which is also noted within the patient's thoracic spine and her Hounsfield units measure around 100. Assessment and Plan Assessment: 1. status post L2-S1 fusion wit proximal junction failure 2. L2 fracture with hardware failure Plan: Spine Surgery Risk Review Domi Jenkins is a 64 yo female presenting for evaluation of back pain, difficulty with ambulation, LE weakness, progressive and failed hardware. It was my pleasure to have seen and examined Domi Jenkins. In our visit today we have had a chance to go over subjective complaints, physical examination findings and treatments including the natural course history without intervention and various interventional options. The patients imaging demonstrates Proximal junctional failure of her previous lumbar construct with lumbar vertebral body fracture at L2 and hardware failure. On physical exam,Domi Jenkins demonstrates b/l LE weakness, difficulty standing up straight, back pain, protruding hardware. I have explained to the patient that as their condition progresses it will cause further neurological deficits and eventual paralysis. Based on the patients imaging, physical exam, and the rapid progression and disabling nature of their symptoms, at this time I recommend surgery in the form or a: Revision fusion thoracolumbar region. I discussed the risk and benefits of this procedure at length with Domi Jenkins. The patient her agreed to considered pursuing the procedure above mentioned. Prior to surgery, she should follow up with her PCP (Cardio, ID, IM etc) for clearance. Questions were invited and answered, and the patient wishes to proceed as outlined below. Currently, I am recommendin.Revision of L2-S1 fusion with Posterior (Backside) thoracic 10 to pelvis revision fusion with removal of hardware and resinstrumentation with screws, rods, cages and bone graft. 2.Follow up with PCP for surgical clearance 3.Review of surgical risks and benefits as well as an educational packet on the proposed surgical procedure. 4. She was given a prescribed for [place] 5mg to take as directed. Risks: All surgical procedures come with inherent risks, including those related to positioning, anesthesia, intraoperative findings, and postoperative complications. It is important to understand that surgery does not come with any guarantee of a successful outcome as complications and adverse events are always possible. The patient was given a handout in office today discussing the surgical procedure and risks associated with the intervention, both of which were discussed with the patient. These risks include but are not limited to the following: * Experiencing same, different or even worse symptoms in back, neck, arms, or legs compared to before surgery. Requiring further surgery or other forms of treatment presently or at some time in the future at same or other levels of the intended spine surgery. On an extreme but fortunately relatively rare basis severe complication such as blindness, stroke, heart attack, temporary and/or permanent nerve injury, paralysis, coma, or may occur, sometimes without known explanation. Surgical complications may include but are not limited to risk of infection, fluid accumulation in the surgical dissection site, including a seroma or hematoma, that requires additional surgery, wound drainage, bleeding, new numbness or weakness, vision changes/loss, spinal fluid leakage, non-healing and/or infected incision, headaches, difficulty or inability to swallow, hoarseness, hemopneumothorax, pneumothorax, impotence, retrograde ejaculation, vaginal dryness; injury to nerves, spinal cord, blood vessels, lymphatics or other vital organs (i.e., bowel injury, injury to the great vessels); heterotopic bone formation; complications related to the hardware such as screws, rods, cages including misplaced hardware, device failure, instrumentati on at the wrong spine level, hardware fracture/breakage, or hardware loosening; vertebral failure of the spinal column above or below the newly placed hardware; retained surgical instrumentations or devices and the need for further surgery. * Medical risks of the planned spine surgery include but are not limited to generalized Infections to the whole body or local areas outside of the surg ical site (sepsis), heart attack, bleeding, anaphylaxis, meningitis, seizure, epilepsy, hearing loss, burn mauro, laceration of the head or other areas of the body, bruising, hypersensitivity of the skin, bladder over distension; allergic reaction; shoulder injury related to positioning; fat, blood and air clots to other areas of the body like heart, lungs, brain; failure of internal organs such as lungs, kidneys, liver and excessive bleeding. If blood transfusions are necessary, note that transfusions may cause intolerance reactions such as anaphylaxis or other complex reactions. Despite best efforts, the results of spine surgery might not heal in terms of bone, soft tissues such as skin, fascia, ligaments, and joints. Additionally, in order to achieve best possible results, spine surgery may be carried out beyond the initially planned levels and involve decompression , fusion including insertion of hardware at levels other than the original intended area of surgical interest change some portions of the procedure in order to ensure the best possible outcomes. With spine surgery and spinal fusion, there are different off label uses of instrumentation (devices, implants and hardware) as well as biological substances (bone morphogenic proteins, demineralized bone matrix) as well as using extra bone from allograft sources (i.e. cadaver bone) or autograft (iliac crest bone, ribs, or the spine itself). The patient has been given information about these practices and their inherent risks and benefits. [facility] is an educational center that serves as a training facility for neurosurgical and orthopedic spine residents and fellows. Residents are physicians who are completing their surgical intensive training following medical school. They assist in the operating room with direct supervision of the attending surgeons. [place] are surgeons who have completed their training and eligible for board certification. They have opted for an elective year of more specialized training in their field. They assist in the operating room under the supervision of the attending surgeons. Physician assistants are medically trained surgical providers who function in the outpatient, inpatient, and operating room setting under the direct supervision of the attending surgeon. [facility] has multiple operating rooms with single and overlapping rooms running daily. They currently function under the required guidelines as produced by the [facility] Finance Committee with regards to the overlapping rooms and will continue to comply with changes to this policy as they occur. The requirements include and are complied with as follows: (1) the critical portions of the overlapping rooms will not occur at the same time, (2) the attending physician will be physically present during the critical portions of the procedure and immediately available during the entire case, and (3) a back-up attending is designated should the primary attending not be immediately available. The patient has had a chance to review all the listed information, has been given print outs detailing this information, and has had all his/her questions answered to their satisfaction.
[~2020-09-28 05:53] MED LIST changes: +ACETAMINOPHEN TAB 500 MG TAB PO PRN; +DEXAMETHASONE SOD PHOSPHATE 4 MG/ML 1 ML VIAL IV ONE; +GABAPENTIN 300 MG CAP PO PRN; +LIDOCAINE 1% (10MG/ML) FOR IV START INTRADERMA PRN; +MIDAZOLAM 2 MG/2 ML VIAL IV PRN; +ONDANSETRON 4 MG/2 ML VIAL IVP PRN; -PREMYELOGRAM MEDICATION REVIEW 1 EACH MISC PO NR; +TRANEXAMIC ACID 1,000 MG in SODIUM CHLORIDE 0.9% 100 ML IVPB PRN
[2020-09-28] MEDS: LACTATED RINGERS 1,000 ML IV SCH ×2 (06:44→18:42)
[2020-09-28] MEDS ORDERED: HYDROmorphone 0.5 MG/0.5 ML SYRINGE IVP PRN (07:00)
[2020-09-28] MEDS ORDERED: MIDAZOLAM 2 MG/2 ML VIAL IV ONE (07:02)
[2020-09-28] MEDS ORDERED: WATER FOR INJECTION, STERILE 10 ML VIAL IV ONE (07:30)
[2020-09-28] MEDS ORDERED: ePHEDrine SULFATE/0.9% NACL/PF 50 MG/5 ML SYRINGE IV ONE (07:30)
[2020-09-28] MEDS ORDERED: HYDROmorphone (PF) 1 MG/ML ONE (07:30)
[2020-09-28] MEDS ORDERED: SODIUM CHLORIDE 0.9% 100 ML BAG ONE (07:30)
[2020-09-28] MEDS ORDERED: LIDOCAINE 1% INJ 10MG/ML (20 ML MDV) ONE (07:30)
[2020-09-28] MEDS ORDERED: SODIUM CHLORIDE 0.9% IRRIG 1,000 ML BTL IRRIGATION ONE (07:30)
[2020-09-28] MEDS ORDERED: SUCCINYLCHOLINE CHLORIDE 100 MG/5 ML SYR IV ONE (07:30)
[2020-09-28] MEDS ORDERED: fentaNYL (PF) 50 MCG/ML 2 ML AMP ONE (07:30)
[2020-09-28] MEDS ORDERED: KETAMINE 10 MG/ML 20 ML VIAL ONE (07:30)
[2020-09-28] MEDS ORDERED: HEPARIN SODIUM,PORCINE 10,000 UNIT/ML 1 ML VIAL ONE (07:30)
[2020-09-28] MEDS ORDERED: ONDANSETRON 4 MG/2 ML VIAL ONE (07:30)
[2020-09-28] MEDS ORDERED: TRANEXAMIC ACID 1,000 MG/10 ML VIAL ONE (07:30)
[2020-09-28] MEDS ORDERED: ROCURONIUM 10 MG/ML (10 ML VIAL) IV ONE (07:30)
[2020-09-28] MEDS ORDERED: PHENYLEPHRINE 10 MG/ML VIAL ONE (07:30)
[2020-09-28] MEDS ORDERED: PROPOFOL 10 MG/ML 20 ML VIAL IV ONE (07:30)
[2020-09-28] MEDS: TRANEXAMIC ACID 1,000 MG in SODIUM CHLORIDE 0.9% 100 ML IVPB ONE ×2 (09:00→18:42)
[2020-09-28] MEDS ORDERED: BUPIVACAINE (PF) 0.25% 30 ML VIAL SQ ONE (09:34)
[2020-09-28] MEDS ORDERED: GELATIN SPONGE,ABSORB (LARGE) 1 EACH SPONGE MISCELLANE ONE (09:34)
[2020-09-28] MEDS ORDERED: THROMBIN (BOVINE) 5,000 UNIT VIAL TOPICAL ONE (09:34)
[2020-09-28] MEDS ORDERED: LACTATED RINGERS 1,000 ML IV ONE ×2 (11:45→16:20)
--- NOTE | 2020-09-28 12:41 | P.ANPRN ---
Procedure Note - Anesthesia - Invasive Line Central Line Time Out Performed: Yes Location of Patient: PreOp Preparation: Sterile Prep, Sterile Dressing Ultrasound Used: Yes Purpose - Visualization and Identification of Vasculature: Yes Needle Guage: 18g Image Stored and Saved: Yes Narrative: Central line placement per sterile protocol utilized. 7Fr double lumen central line inserted in to the Right Internal Jugular vein Arterial Line Date of Procedure: 09/28/20 Location of Patient: PreOp Preparation: Sterile Prep, Sterile Dressing Arterial Line Location: Radial (Left) Ultrasound Used: No Purpose - Visualization and Identification of Vasculature: No Needle Guage: 20G Narrative: Central line placement per sterile protocol utilized.
[2020-09-28 13:17] LABS: Glucose,Whole Blood 169 mg/dL (75-99)
--- NOTE | 2020-09-28 15:39 | FL ---
Fluoroscopy History: PLDF 2 min 2 sec fl. 3 images scanned.
[2020-09-28] MEDS ORDERED: VANCOMYCIN 1,000 MG VIAL MISCELLANE ONE (16:05)
[2020-09-28] MEDS ORDERED: SENNOSIDES 8.6 MG TAB PO PRN (17:14)
[2020-09-28] MEDS ORDERED: ONDANSETRON 4 MG/2 ML VIAL IVP PRN (17:14)
[2020-09-28] MEDS ORDERED: HYDROmorphone PCA 10 MG/50 ML BAG IV PRN (17:22)
[2020-09-28] MEDS ORDERED: NALOXONE 0.4 MG/ML 1 ML VIAL IV PRN (17:22)
[2020-09-28 18:09] LABS: Basophils % (A) 0 %; Eosinophils % (A) 0 %; HCT 30.1 % (34.0-46.0); Lymphocytes # (A) 1.2 k/uL (1.0-4.8); Lymphocytes % (A) 9 %; MCH 28.4 pg (25.0-35.0); MCHC 31.5 g/dL (31.0-37.0); MCV 90.3 fL (80.0-100.0); Mean Platelet Volume 7.3; Monocytes # (A) 0.6 k/uL (0-1.0); Monocytes % (A) 5 %; Neutrophils # (A) 10.5 k/uL (1.3-7.7); Neutrophils % (A) 85 %; Platelet Count 280 k/uL (150-450); RBC 3.33 m/uL (3.80-5.40); RDW 15.8 % (11.5-15.5); WBC 12.4 k/uL (3.8-10.6)
[2020-09-28 18:10] LABS: HGB 9.5 gm/dL (11.4-16.0)
[2020-09-28 18:26] LABS: Glucose,Whole Blood 142 mg/dL (75-99)
[2020-09-28] MEDS: 0.9% NACL WITH KCL 20 MEQ/L 1,000 ML IV SCH (19:44)
--- NOTE | 2020-09-28 21:33 | CT ---
EXAMINATION TYPE: CT thor lumbar spine wo con DATE OF EXAM: 09/28/2020 COMPARISON: PET/CT scan 09/10/2020 HISTORY: post-op CT DLP: 1201.6 mGycm Automated exposure control for dose reduction was used. Images were obtained from the level of T1-S1 for vertebra without contrast. Vertebra have fairly normal alignment. There is rods and screws fusing posteriorly the spine from the level of S3 through the T10 vertebral body. There is a 50% anterior wedging of L2 vertebra. There is vertebroplasty of T11 and T10 vertebra. There is high density material also in the disc space at L4- 5 and L2-3. There is vertebroplasty of L3. There is generalized osteopenia. There is no thoracic or l umbar paraspinal mass. The sacroiliac joints are intact. Exam limited by metal artifact. I see no sig nificant spinal stenosis. IMPRESSION: Multilevel posterior fusion surgery. There is L2 compression fracture probably not changed compared t o recent PET CT scan.
[2020-09-28] MEDS: GABAPENTIN 300 MG CAP PO SCH (21:55)
[2020-09-28] MEDS: DOCUSATE 100 MG CAP PO SCH (21:57)
[2020-09-28] MEDS: oxyCODONE-APAP 5-325MG 1 EACH TAB PO PRN (22:13)
[2020-09-28] MEDS: HYDROmorphone 1 MG/ML 1 ML SYRINGE IVP PRN (22:27)
[2020-09-29] MEDS: HYDROmorphone 1 MG/ML 1 ML SYRINGE IVP PRN ×6 (03:02→22:50)
[2020-09-29 03:43] LABS: Anisocytosis Slight; Basophils % (A) 0 %; Eosinophils % (A) 0 %; HCT 26.7 % (34.0-46.0); HGB 8.4 gm/dL (11.4-16.0); Lymphocytes # (A) 1.3 k/uL (1.0-4.8); Lymphocytes % (A) 11 %; MCH 28.6 pg (25.0-35.0); MCHC 31.5 g/dL (31.0-37.0); MCV 90.9 fL (80.0-100.0); Mean Platelet Volume 7.1; Monocytes # (A) 0.6 k/uL (0-1.0); Monocytes % (A) 5 %; Neutrophils # (A) 9.6 k/uL (1.3-7.7); Neutrophils % (A) 83 %; Platelet Count 256 k/uL (150-450); RBC 2.94 m/uL (3.80-5.40); RDW 16.1 % (11.5-15.5); WBC 11.6 k/uL (3.8-10.6)
[2020-09-29 04:01] LABS: African American GFR (CKD) >90 (>60 ml/min/1.73 sqM); Anion Gap 3 mmol/L; Blood Urea Nitrogen 17 mg/dL (7-17); Calcium 7.8 mg/dL (8.4-10.2); Carbon Dioxide 22 mmol/L (22-30); Chloride 113 mmol/L (98-107); Glucose 146 mg/dL (74-99); Non-African American GFR(CKD) 88 (>60 ml/min/1.73 sqM); Potassium 4.6 mmol/L (3.5-5.1); Sodium 138 mmol/L (137-145)
[2020-09-29] MEDS: oxyCODONE-APAP 5-325MG 1 EACH TAB PO PRN (05:09)
[2020-09-29] MEDS: 0.9% NACL WITH KCL 20 MEQ/L 1,000 ML IV SCH ×3 (05:09→18:30)
[2020-09-29] MEDS: DOCUSATE 100 MG CAP PO SCH ×2 (10:03→20:31)
[2020-09-29] MEDS: polyethylene glycoL 3350 17 GM POWD.PACK PO SCH (10:03)
[2020-09-29] MEDS: GABAPENTIN 300 MG CAP PO SCH ×3 (10:03→22:39)
[2020-09-29] MEDS: LACTATED RINGERS 1,000 ML IV SCH (10:05)
[2020-09-29] MEDS ORDERED: ALBUTEROL NEBULIZED 2.5 MG/3 ML INHALATION PRN (11:09)
--- NOTE | 2020-09-29 11:15 | P.CONS ---
History of Present Illness - Reason for Consult Consult date: 09/29/20 - Chief Complaint s/p back surgery - History of Present Illness 64-year-old woman with a history of COPD, CVA/TIA, GERD, HTN/HLD presented for elective surgery. Medicine consulted by orthopedic surgery for medical management. Patient recently had a revision of L2 to S1 spinal fusion due to hardware malfunction and compression fracture of L2. She is doing well postoperatively, complaining of pain, which is decently controlled with narcotics. Patient is requiring 2 L of oxygen via nasal cannula. Had one low- grade fever, otherwise afebrile, no nausea, vomiting. Was unable to me she is passing flatus. Regarding her medical conditions, she has been stable from this point of view. Review of Systems All Systems reviewed and pertinent positives and negatives noted in HPI, all other symptoms are negative Past Medical History Past Medical History: COPD, CVA/TIA, GERD/Reflux, Hyperlipidemia, Hypertension, Osteoarthritis (OA) Additional Past Medical History / Comment(s): migraines, stroke Sep 2019-left side weakness, hiatal hernia, diarrhea, chronic pancreatitis, osteoarthritis in back/hx fx lower lumbar, hx anemia History of Any Multi-Drug Resistant Organisms: None Reported Past Surgical History: Appendectomy, Back Surgery, Cholecystectomy, Orthopedic Surgery, Tonsillectomy Additional Past Surgical History / Comment(s): Pancreatic stents-since removed, 6 back surgeries with 2 fusions, right oophorectomy due to ectopic , EGD/colonoscopy, ORIF right femur w/titanium alice Past Anesthesia/Blood Transfusion Reactions: No Reported Reaction Additional Past Anesthesia/Blood Transfusion Reaction / Comm: DIFF IV STARTS, Pt has received blood in past without reaction. Smoking Status: Current every day smoker - Past Family History Father Family Medical History: Cancer Mother Family Medical History: Cancer, CVA/TIA Additional Family Medical History / Comment(s): breast and colon cancer. Medications and Allergies Home Medications Medication Instructions Recorded Confirmed Type Atorvastatin [Lipitor] 40 mg PO HS 03/18/20 09/28/20 History Albuterol Inhaler [Ventolin Hfa 2 puff INHALATION RT-Q4H PRN 06/21/20 09/28/20 History Inhaler] Gabapentin [Neurontin] 100 mg PO TID 06/24/20 09/28/20 History Cholecalciferol [Vitamin D3 (25 2,000 unit PO DAILY 07/26/20 09/28/20 History Mcg = 1000 Iu)] atenoloL [Atenolol] 25 mg PO DAILY 08/17/20 09/28/20 History Diphenox-Atrop 2.5-0.025 mg 1 tab PO 5XD PRN 3 Days #15 tablet 08/22/20 09/28/20 Rx [Lomotil] Ondansetron Odt [Zofran Odt] 4 mg PO Q8HR PRN 3 Days #9 tab 09/09/20 09/28/20 Rx amLODIPine BESYLATE/BENAZEPRIL 1 cap PO DAILY 09/09/20 09/28/20 History [Lotrel 5-10 MG] Aspirin 81 mg PO DAILY 09/22/20 09/28/20 History Butalb/Asprin/Caff 50-325-40Mg 1 - 2 cap PO Q4HR PRN 09/22/20 09/28/20 History [Fiorinal 50-325-40 MG] HYDROcodone/APAP 10-325MG [[place] 1 tab PO Q4HR PRN 09/22/20 09/28/20 History 10-325] Allergies Allergy/AdvReac Type Severity Reaction Status Date / Time No Known Allergies Allergy Verified 09/28/20 06:20 Physical Exam Osteopathic Statement: *. No significant issues noted on an osteopathic structural exam other than those noted in the History and Physical/Consult. Vitals: Vital Signs Temp Pulse Pulse Resp BP BP Pulse Ox 09/29/20 09:00 102 H 13 106/61 99 09/29/20 08:00 99.1 F 103 H 15 101/74 97 09/29/20 07:00 98.4 F 111 H 18 122/66 98 09/29/20 06:00 108 H 16 117/77 97 09/29/20 05:00 110 H 18 110/71 96 09/29/20 04:00 100.5 F H 107 H 16 120/76 96 09/29/20 03:00 110 H 19 117/74 97 09/29/20 02:00 109 H 18 123/80 97 09/29/20 01:00 106 H 16 127/78 98 09/29/20 00:00 100 15 123/75 99 09/28/20 23:00 96 15 135/78 99 09/28/20 22:00 90 15 117/88 98 09/28/20 21:45 91 17 117/88 99 09/28/20 21:30 89 14 117/88 100 09/28/20 21:15 91 99 09/28/20 21:00 87 16 98 09/28/20 20:45 86 15 99 09/28/20 20:30 85 16 100 09/28/20 20:15 89 19 98 09/28/20 20:00 87 13 120/69 99 09/28/20 19:57 17 09/28/20 19:45 96.0 F L 88 17 120/69 97 09/28/20 19:30 82 99 09/28/20 19:15 81 16 117/73 100 09/28/20 19:00 83 99 09/28/20 18:45 81 19 100 09/28/20 18:30 82 21 117/73 99 09/28/20 18:00 83 18 135/71 99 09/28/20 17:45 80 18 113/81 100 09/28/20 17:30 81 16 132/73 100 09/28/20 17:15 79 18 120/76 100 09/28/20 17:00 96.8 F L 82 18 100/54 100 Intake and Output 09/28/20 09/29/20 09/29/20 22:59 06:59 14:59 Intake Total 1100 850 300 Output Total 1715 545 245 Balance -615 305 55 Intake: IV 1100 850 300 0.9% NaCl with KCl 20 Meq 300 800 300 /l 1,000 ml @ 100 mls/hr IV .Q10H JOLLY Rx#: [id number] ceFAZolin 2 gm In Sodium 50 50 Chloride 0.9% 50 ml @ 100 mls/hr IVPB Q8H JOLLY Rx#: [id number] Output: Drainage 80 190 130 Back #1 30 90 50 Back #2 50 100 80 Urine 635 355 115 Estimated Blood Loss 1000 Other: Voiding Method Indwelling Catheter Indwelling Catheter Indwelling Catheter Weight 51.7 kg ABP, PAP, CO, CI - Last 8 Hours Arterial Blood Pressure 115/60 Arterial Blood Pressure 133/64 Arterial Blood Pressure 125/88 Gen: awake, alert HEENT: normocephalic, atraumatic, good hearing acuity, moist mucous membranes Resp: good air exchange, breathing comfortably with no accessory muscle use, clear to auscultation bilaterally CVS: good distal perfusion x 4, regular rate and rhythm without murmurs GI: soft, NTTP, ND : no SPT, no CVAT, giraldo catheter is present MSK: no pitting edema, no clubbing Neuro: non-focal, moving all extremities Psych: cooperative, euthymic mood Results CBC & Chem 7: 09/29/20 03:33 09/29/20 03:33 Labs: Abnormal Lab Results - Last 24 Hours (Table) 09/28/20 09/28/20 09/28/20 Range/Units 13:14 17:50 18:24 WBC 12.4 H (3.8-10.6) k/uL RBC 3.33 L (3.80-5.40) m/uL Hgb 9.5 L D (11.4-16.0) gm/dL Hct 30.1 L (34.0-46.0) % RDW 15.8 H (11.5-15.5) % Neutrophils # 10.5 H (1.3-7.7) k/uL Chloride (98-107) mmol/L Glucose (74-99) mg/dL POC Glucose (mg/dL) 169 H 142 H (75-99) mg/dL Calcium (8.4-10.2) mg/dL 09/29/20 09/29/20 Range/Units 03:33 03:33 WBC 11.6 H (3.8-10.6) k/uL RBC 2.94 L (3.80-5.40) m/uL Hgb 8.4 L (11.4-16.0) gm/dL Hct 26.7 L (34.0-46.0) % RDW 16.1 H (11.5-15.5) % Neutrophils # 9.6 H (1.3-7.7) k/uL Chloride 113 H (98-107) mmol/L Glucose 146 H (74-99) mg/dL POC Glucose (mg/dL) (75-99) mg/dL Calcium 7.8 L (8.4-10.2) mg/dL Assessment and Plan Assessment: 1. COPD without exacerbation 2. History of CVA/TIA 3. GERD with esophagitis 4. Hypertension, essential 5. Hyperlipidemia 6. Status post L2 to S1 spinal surgery fusion repair next 64-year-old woman with medical history of COPD, CVA/TIA, GERD, HTN/HLD presented for elective procedure with spine surgery; medicine consulted for comanagement of comorbidities. Plan: Presently holding her home atenolol, amlodipine, lipitor, aspirin, albuterol. - we can resume atenolol, lipitor, albuterol - continue holding amlodipine, re: aspirin, would require ortho approval - pain control per primary team - warrants DVT ppx with enoxaparin once cleared by surgery to do so - PT/OT Full Code
--- NOTE | 2020-09-29 11:42 | P.PN ---
Subjective Progress Note Date: 09/29/20 Principal diagnosis: L2-S1 pseudoarthrosis L1-2 proximal junctional failure Patient seen and examined this morning. She is doing very well. No acute events overnight per nursing. She states her pain is manageable at this time. She denies any fevers chills shortness of breath or chest pain. She denies any new numbness or tingling she denies any new weakness. Objective - Vital Signs Vital signs: Vital Signs Temp 98.3 F 09/29/20 10:57 Pulse 114 H 09/29/20 10:57 Resp 20 09/29/20 10:57 BP 97/62 09/29/20 10:57 Pulse Ox 96 09/29/20 10:57 Intake & Output 09/28/20 09/29/20 09/29/20 18:59 06:59 18:59 Intake Total 2450 1200 300 Output Total 1460 800 245 Balance 990 400 55 Weight 51.7 kg Intake: IV 2450 1200 300 0.9% NaCl with KCl 20 Meq 1100 300 /l 1,000 ml @ 100 mls/hr IV .Q10H JOLLY Rx#: [id number] ceFAZolin 2 gm In Sodium 100 Chloride 0.9% 50 ml @ 100 mls/hr IVPB Q8H JOLLY Rx#: [id number] Output: Drainage 270 130 Back #1 120 50 Back #2 150 80 Urine 460 530 115 Estimated Blood Loss 1000 Other: Voiding Method Indwelling Catheter Indwelling Catheter Indwelling Catheter ABP, PAP, CO, CI - Last Documented Arterial Blood Pressure 115/60 - Exam Patient is alert and oriented 3 appears well-nourished well-hydrated is in no a cute distress. They does not appear septic. On exam the patient has no tenderness to palpation of her thoracic or lumbar spine. There is no edema or ballottement sign. They have good strength in her lower extremities with 5 out of 5 dorsiflexion plantar flexion EHL and FHL bilaterally. Upper extremities show 5/5 strength in all major muscle groups except her left upper show minimal left lower extremity of which she is weak secondary to her previous stroke. There is FROM that is painless of the b/l UE and LE in all major joints. They are intact to light touch sensation in L2 to S1 nerve distribution. Patient has palpable dorsalis pedis was posterior tibial pulses. Compartments are soft and compressible. Patient shows a negative Homans, Beal's, negative Babinski's negative clonus bilaterally. negative straight leg raise bilaterally. No tensioning signs.Cranial nerves II through XII are grossly intact. Incision is clean and dry. Drains are putting out around 100 mL. No fluctuance no erythema or ecchymosis or edema - Labs CBC & Chem 7: 09/29/20 03:33 09/29/20 03:33 Labs: Abnormal Lab Results - Last 24 Hours (Table) 09/28/20 09/28/20 09/28/20 Range/Units 13:14 17:50 18:24 WBC 12.4 H (3.8-10.6) k/uL RBC 3.33 L (3.80-5.40) m/uL Hgb 9.5 L D (11.4-16.0) gm/dL Hct 30.1 L (34.0-46.0) % RDW 15.8 H (11.5-15.5) % Neutrophils # 10.5 H (1.3-7.7) k/uL Chloride (98-107) mmol/L Glucose (74-99) mg/dL POC Glucose (mg/dL) 169 H 142 H (75-99) mg/dL Calcium (8.4-10.2) mg/dL 09/29/20 09/29/20 Range/Units 03:33 03:33 WBC 11.6 H (3.8-10.6) k/uL RBC 2.94 L (3.80-5.40) m/uL Hgb 8.4 L (11.4-16.0) gm/dL Hct 26.7 L (34.0-46.0) % RDW 16.1 H (11.5-15.5) % Neutrophils # 9.6 H (1.3-7.7) k/uL Chloride 113 H (98-107) mmol/L Glucose 146 H (74-99) mg/dL POC Glucose (mg/dL) (75-99) mg/dL Calcium 7.8 L (8.4-10.2) mg/dL - Imaging and Cardiology Computed tomography scan of the thoracic and lumbar spine demonstrated postsurgical changes from T10 to pelvis. There is good alignment there is good hardware placement no evidence of early failure. Decompression noted. Assessment and Plan Assessment: 64-year-old female postoperative day 1 T10 to pelvis revision fusion 1. status post L2-S1 fusion wit proximal junction failure 2. L2 fracture with hardware failure Plan: -Appreciate medicine management. -Pain control: Adequate at this time -Aggressive ambulation protocol. OOB with all meals. OOB or in chair 4-5x daily. -PT/OT -TEDs, SCDs, mechanical ppx. OK for heparin today. Early ambulation is best. -GI ppx. -No further imaging needed at this time -Trend labs. -Dispo: Pending
[2020-09-29] MEDS ORDERED: VANCOMYCIN IV PER PHARMACY 1 EACH MISC MISCELLANE PRN (12:12)
[2020-09-29] MEDS: atenoloL 25 MG TAB PO SCH (12:16)
[2020-09-29] MEDS: ENOXAPARIN 30 MG/0.3 ML SYRINGE SQ SCH (12:17)
--- NOTE | 2020-09-29 12:41 | P.OP ---
Date of Procedure: 09/28/20 Preoperative Diagnosis: 1. Pseudoarthrosis L2-S1 2. L1-2 adjacent segment disease with proximal junctional failure 3. L2 fracture with hardware failure Postoperative Diagnosis: 1. Pseudoarthrosis L2-S1 2. L1-2 adjacent segment disease with proximal junctional failure 3. L2 fracture with hardware failure Procedure(s) Performed: 1. Exploration of fusion L2-S1 2. Removal of hardware L2-S1 3. Reinstrumentation [id number] 4. Segmental instrumentation [id number] 5. Posterior lateral fusion T10 to pelvis 6. Intradiscal osteotomy ( 3 column osteotomy for deformity correction) L1 to L2 7. Interbody fusion L1-L2 8. Decompressive laminectomy with complete facetectomy and foraminotomy T12-L3 9. ORIF L2 fracture 10. Use of intraoperative navigation for the placement of pedicle screws Implants: [place] screws Fenestrated screws for cementation upper two levels 9 mm peek banana cage Autograft Allograft Cellerate Anesthesia: GETA Surgeon: Bert Greenfield (DARIEL Chatman was present for the entire case and was necessary due to the complexity of the case. ) Estimated Blood Loss (ml): 1,000 IV fluids (ml): 4,500 Urine output (ml): 1,000 Pathology: none sent Condition: stable Disposition: PACU Indications for Procedure: This 64 year old female presents with 7 months of low back pain. She had a previous fusion 2 years ago. She states that she has a lump on her back that causes pain. She has continuous upper low back pain. Patient notes pain that radiates down his left leg. sHe has numbness and tingling that increases with walking. She has significant night time symptoms. Patient states that she can not apply pressure to the back without severe pain. Patient is on Brilenta daily along with [place] as needed and Ultram/Motrin as needed. Patient was fused by Dr. Farris at [facility] a couple years prior. This did help her for some time however now her hardware is becoming prominent and she is having a lot of pain in her back. The patients' past social, medical, family, surgical history, as well as review of systems, have been reviewed. Please refer to the Neurosurgery History and Physical form that has been scanned in to our electronic medical record system. Operative Findings: Pseudoarthrosis L2 to S1 with proximal junctional failure L1-L2 with kyphotic deformity L2 fracture and stenosis in this area Description of Procedure: The patient was seen and examined in the preoperative area. All preoperative protocols were followed. Informed consent was obtained risks and benefits of the procedure were discussed at length. Risks including bleeding infection damage to the surrounding tissue and risk of reoperation were discussed with the patient. Risk of anesthesia up to and including was a discussed with the patient. These are outlined in the risk review. They were willing to accept these risks and all of the risks of surgery. The patient was given a weight- based dose of antibiotics in the form of 1 g Ancef IVPB 1 preoperatively. The patient was seen and evaluated by the anesthesia team who deemed them fit for surgery. The site was marked, the patient was willing to proceed with the procedure. The patient was transferred to the operative suite by the Department of anesthesia. They were then drifted off to sleep by the department anesthesia and general endotracheal intubation. The patient tolerated this well. [Negron catheter was placed by nursing staff, atraumatically]. Once confirmation of lines and ventilation the patient was transferred to a [prone [place] table very carefully]. All bony prominences including wrists, elbows, axilla, chest, hips, and thighs, and feet were padded very well. Special attention was paid to the genitalia and these were padded accordingly. SCDs were placed on bilateral lower extremities and were connected. Arms were well padded and placed [on arm boards up and out in the 90/90 position]. Once in position, again we confirmed good ventilation capabilities and that lines were running appropriately. The patient's thoracic and lumbar spine was then exposed. 1010s were placed outlining the incision site. Standard alcohol was used to clean the incision site and allowed to dry. C-arm was used to biomark the patient and confirm level for incision which was marked with a skin marker. Operative briefing was performed with all teams and everyone in agreement to proceed. The patient was then prepped and draped in a normal sterile fashion. Timeout was then performed and all parties were in agreement with the procedure to be performed. Area was then infiltrated with quarter percent Marcaine without epinephrine 30 mL. Skin incision was then made using a knife over the previous above marked incision from the thoracolumbar region down to the lumbosacral region. Subcu hemostasis dissection was taken with electrocautery down to the thoracolumbar as well as the lumbosacral fascia which was cleaned entirely. Once this was visualized a midline fasciotomy was made along the spinous processes of T10 to the pelvis. Subperiosteal dissection was then taken out over the lamina of T10 through L2 to expose the facet joints and transverse process in this area. The postsurgical hardware was encountered at L2 which was then exposed entirely. From L2 to S1 the hardware was exposed this and the posterior lateral gutters we re exposed as well. The pelvis was then exposed revealing entry points for the iliac screws in the PSIS region. Once exposure was obtained copious amounts irrigation were used to irrigate the area. We then explored the fusion from L2 to S1. The screws at L2 were loose and these were removed along with the set screws and rods as well as a cross connector. Screws at L4 and L5 were also removed L5 screws were loose bilaterally. The screws at S1 removed. The screws were all measured. Feeler was used to feel the screw entry points as well as the screw tracts and were intact. It was decided then to replace the L4 screws bilaterally using a bone anchor technique. The screw was first sized and then the screw anchor was chosen to match the size. It was then tapped and placed and a screw placed in the void. We then repeated this for the right and left side L4 screws as well as L5 screws. S1 screws we upsized from 6575 with no bone anchors which provided good bite. We then turned attention to the pelvic area where the left-sided iliac screw was placed first under lateral fluoroscopy. Entry point was made with a high-speed bur followed by a flat spatula pedicle finder under lateral visualization. We then took a AP view to look down the PSIS and confirmed good placement of this screw. An 8 5 x 80 screw was then placed atraumatically and confirmed to be in good position. We then turned our attention to the right-sided iliac screw was placed in similar manner first with opening with a high-speed bur followed by spatula pedicle finder under lateral fluoroscopy and confirmed under AP 3030 fluoroscopy. A 8 5 x 80 was also selected for this side and was placed. Attention was then drawn to the proximal portion of the construct a spinous processes clamp was placed on the T9 spinous process and the Walkbase navigation probe was then placed and attached to this. A sterile 3-D C-arm spent was then obtained. Once obtained we confirmed the accuracy of this through probing and the accuracy was confirmed. We then proceeded to place screws on the left-hand side at T10 11 12 L1 and L2 using Walkbase navigation. This was done by entering first with a navigated high-speed bur followed by a navigated pedicle finder followed by a ball-tipped feeler to confirm within the pedicle followed by screw. The screws all were placed very easily and very well with no issues. We then placed the right-sided screws in the similar fashion down to L2. We attempted to change the trajectory of the L2 screws secondary to the endplate fracture that was apparent. Navigation allowed us to do this. Once the screws were in place we then cemented the top 2 screws at T10 and T11 bilaterally through fenestrated screws. The adapters were placed over the screws and cement placed through the screws under live lateral fluoroscopy. This allowed for good fill of cement within the vertebral bodies as well as to solidify the screw placements. There were no issues during some mentation blood pressure and pulse rate remained stable throughout. There is no extensive cement extravasation. Once all screws were in place and cemented a 3-D Z C-arm spin was obtained to visualize the new screw placements and all screws were in good position. We then copiously irrigated the wound was sterile saline. We then cut and bent rods to match her current lordosis due to having a fairly solid fusion at L4 to S1. There was somewhat of a pseudoarthrosis at L2-3 however this segment was only minimally mobile. Once the rods were cut and bent to appropriate sizes our attention was drawn to the decompression of T12 through L3. We performed bilateral laminotomy foraminotomies and facetectomies at L1 and L2 with bilateral laminotomy and facetectomies at T12 through L3. At L1 and L2 where the fracture and kyphosis was we attempted deformity correction by performing a bilateral intradiscal 3 column osteotomy. This was performed under lateral fluoroscopy by first entering the disc space and an intradiscal fashion with a osteotome. The thecal sac was protected during this entire phase as well as the exiting nerve roots. Damage to the thecal sac or exiting nerve roots during this period once osteotomies had been performed on both sides lamina spreaders were then placed under lateral fluoroscopy to allow for spreading at this area and for deformity correction. We were able to regain good height as well as deformity correction in this area. Sequential shaving was performed bilaterally at this level. We decided to use a 9 mm banana cage made out of peek and packed with autograft allograft and bio 4. We first placed allograft anterior to the cage and then under lateral fluoroscopy and protecting the exiting nerve roots as well as the thecal sac impacted the cage into place. Narrow Fabric Loom Fixer was removed and turning tamp was then placed and the cage was turned 90. This fit very well and was placed well anterior to allow for good fulcrum at this level. Meticulous hemostasis was performed using bipolar electrocautery as well as FloSeal and patties. The remainder of the laminectomy was performed. Without incident. Attention was then drawn to alice placement in the rods were placed and reduced into position using large reduction clamps as well as forceps. Set screws were placed and were final tightened and positioned to L2. We then performed compression between screws above L2 to allow for deformity correction. This is done under lateral fluoroscopy and showed good deformity correction. The remainder of the screws were then final tightened and the place. Cross-links were then placed over the laminotomy defect laminectomy defect as well as proximally. We then performed a tension band technique from T9-T10 with Mersilene tape. A bur was used to bur a small hole in the lamina of T9 and T10. A clamp was then used to complete this hole. The Mersilene tape was then fished through in a [id number]-[id number] fashion and tied over a cross-link. Once tied over the cross- link in and over under configuration the cross-link was then spread to allow for good tensioning on the Mersilene tape and good tension band. The wound was then copiously irrigated again with normal sterile saline 3 L. Surgicel was placed over the open dural sac to protect it. The transverse processes facet joints and lamina were then decorticated in areas appropriate. A combination of allograft autograft and bio 4 with then placed in the posterior lateral gutters from T10 to pelvis. Surgicel was placed over these to allow for graft retention. 2 small round Arnold drains were then placed deep to the fascia and sewn into place with 2-0 nylon. 2 g of vancomycin were then placed within the wound. The thoracolumbar and lumbosacral fascia were then closed with 0 PDS in a whippl-ju-jikcy fashion followed by a running unidirectional strata fix. This provided a watertight closure. Cellerate was then placed in the subcu area. This will facilitate wound closure. The subcu tissue was then closed with 0 PDS and 2-0 PDS in a simple fashion. The wound edges approximated very well. 2-0 nylon was then placed in the skin in a running fashion. The wound was then cleaned with alcohol and dried and dressed sterilely with Cellerate gel Telfa 4 x 4's and Tegaderms. The patient was transferred back to her hospital bed atraumatically. Drain continued to hold suction and were in good position. Patient was then awakened and extubated by the department of anesthesia having tolerated the procedure very well with no complications. She was transferred to the postoperative care unit in stable condition. she will be admitted to the ICU overnight for blood pressure monitoring
[2020-09-29] MEDS: VANCOMYCIN 1,000 MG in SODIUM CHLORIDE 0.9% 250 ML IVPB SCH (14:24)
--- NOTE | 2020-09-29 14:33 | P.CNPUL ---
History of Present Illness Consult date: 09/29/20 Requesting physician: Bert Greenfield Reason for consult: other Chief complaint: L2-S1 pseudoarthrosis, L1to proximal junctional failure History of present illness: This is 64-year-old white male patient with history of 7 months of low back pain. Patient had previous fusion 2 years ago. Most recently patient noted a lump on her back that caused her pain, and the pain would radiate down the left leg, accompanied by numbness, tingling and to increase with walking. She sought surgical evaluation, and she is to proximal junctional failure of her previous lumbar construct with vertebral body fracture at L2 and hardware failure. Because of the risk of further neurological deficit and eventual paralysis surgical intervention was recommended, and on 09/28/2020 patient had posterior thoracic 10 to the pelvis revision fusion with lumbar 2 to sacral 1 hardware removal and lumbar 1 to sacral 1 interbody fusion with Cell Saver and nerve integrity monitoring. Patient was in surgery for quite extended period of time, and following this surgery she was weaned and extubated in the recovery room, however she was admitted to the intensive care unit overnight for closer monitoring. This morning she seen in the intensive care unit, she is groggy, drowsy, but easily arousable to verbal stimuli, she is on 2 L of oxygen her pulse ox of 90-99%, she was febrile this morning at 4:00 with a temp of 100.5F, hemodynamically she has been stable. She is complaining of pain, but states that it is manageable. Denies any shortness of breath, no cough, no chest pain. She is able to move all 4 extremities, she is wiggling her toe on bilateral lower extremities. Today's labs have been reviewed, showing white blood cell count of 11.6, hemoglobin of 8.4, platelet count of 256, electrolytes were unremarkable, renal profile was unremarkable, patient is on 0.9 normal saline with 20 MEQ at 100 ML per hour. She is on bronchodilators, she is on Dilaudid EHS MANAGER and Percocet for pain control. She is on vancomycin for empiric antibiotic coverage. She is following command, she is responding appropriately, a bit groggy, but fairly comfortable. Review of Systems All systems: negative Constitutional: Denies chills, Denies fever Eyes: denies blurred vision, denies pain Ears, nose, mouth and throat: Denies headache, Denies sore throat Cardiovascular: Denies chest pain, Denies shortness of breath Respiratory: Denies cough Gastrointestinal: Denies abdominal pain, Denies diarrhea, Denies nausea, Denies vomiting Genitourinary: Denies dysuria, Denies hematuria Musculoskeletal: Reports leg numbness/tingling, Reports limitation of motion, Reports low back pain, Reports muscle weakness, Denies myalgias Integumentary: Denies pruritus, Denies rash Neurological: Denies numbness, Denies weakness Psychiatric: Denies anxiety, Denies depression Endocrine: Denies fatigue, Denies weight change Past Medical History Past Medical History: COPD, CVA/TIA, GERD/Reflux, Hyperlipidemia, Hypertension, Osteoarthritis (OA) Additional Past Medical History / Comment(s): migraines, stroke Sep 2019-left side weakness, hiatal hernia, diarrhea, chronic pancreatitis, osteoarthritis in back/hx fx lower lumbar, hx anemia History of Any Multi-Drug Resistant Organisms: None Reported Past Surgical History: Appendectomy, Back Surgery, Cholecystectomy, Orthopedic Surgery, Tonsillectomy Additional Past Surgical History / Comment(s): Pancreatic stents-since removed, 6 back surgeries with 2 fusions, right oophorectomy due to ectopic , EGD/colonoscopy, ORIF right femur w/titanium alice Past Anesthesia/Blood Transfusion Reactions: No Reported Reaction Additional Past Anesthesia/Blood Transfusion Reaction / Comment(s): DIFF IV STARTS, Pt has received blood in past without reaction. Smoking Status: Current every day smoker - Past Family History Father Family Medical History: Cancer Mother Family Medical History: Cancer, CVA/TIA Additional Family Medical History / Comment(s): breast and colon cancer. Medications and Allergies Home Medications Medication Instructions Recorded Confirmed Type Atorvastatin [Lipitor] 40 mg PO HS 03/18/20 09/28/20 History Albuterol Inhaler [Ventolin Hfa 2 puff INHALATION RT-Q4H PRN 06/21/20 09/28/20 History Inhaler] Gabapentin [Neurontin] 100 mg PO TID 06/24/20 09/28/20 History Cholecalciferol [Vitamin D3 (25 2,000 unit PO DAILY 07/26/20 09/28/20 History Mcg = 1000 Iu)] atenoloL [Atenolol] 25 mg PO DAILY 08/17/20 09/28/20 History Diphenox-Atrop 2.5-0.025 mg 1 tab PO 5XD PRN 3 Days #15 tablet 08/22/20 09/28/20 Rx [Lomotil] Ondansetron Odt [Zofran Odt] 4 mg PO Q8HR PRN 3 Days #9 tab 09/09/20 09/28/20 Rx amLODIPine BESYLATE/BENAZEPRIL 1 cap PO DAILY 09/09/20 09/28/20 History [Lotrel 5-10 MG] Aspirin 81 mg PO DAILY 09/22/20 09/28/20 History Butalb/Asprin/Caff 50-325-40Mg 1 - 2 cap PO Q4HR PRN 09/22/20 09/28/20 History [Fiorinal 50-325-40 MG] HYDROcodone/APAP 10-325MG [[place] 1 tab PO Q4HR PRN 09/22/20 09/28/20 History 10-325] Allergies Allergy/AdvReac Type Severity Reaction Status Date / Time No Known Allergies Allergy Verified 09/28/20 06:20 Physical Exam Vitals: Vital Signs Temp Pulse Pulse Resp BP BP Pulse Ox 09/29/20 12:00 99.2 F 112 H 18 121/69 97 09/29/20 10:57 98.3 F 114 H 20 97/62 96 09/29/20 09:00 102 H 13 106/61 99 09/29/20 08:00 99.1 F 103 H 15 101/74 97 09/29/20 07:00 98.4 F 111 H 18 122/66 98 09/29/20 06:00 108 H 16 117/77 97 09/29/20 05:00 110 H 18 110/71 96 09/29/20 04:00 100.5 F H 107 H 16 120/76 96 09/29/20 03:00 110 H 19 117/74 97 09/29/20 02:00 109 H 18 123/80 97 09/29/20 01:00 106 H 16 127/78 98 09/29/20 00:00 100 15 123/75 99 09/28/20 23:00 96 15 135/78 99 09/28/20 22:00 90 15 117/88 98 09/28/20 21:45 91 17 117/88 99 09/28/20 21:30 89 14 117/88 100 09/28/20 21:15 91 99 09/28/20 21:00 87 16 98 09/28/20 20:45 86 15 99 09/28/20 20:30 85 16 100 09/28/20 20:15 89 19 98 09/28/20 20:00 87 13 120/69 99 09/28/20 19:57 17 09/28/20 19:45 96.0 F L 88 17 120/69 97 09/28/20 19:30 82 99 09/28/20 19:15 81 16 117/73 100 09/28/20 19:00 83 99 09/28/20 18:45 81 19 100 09/28/20 18:30 82 21 117/73 99 09/28/20 18:00 83 18 135/71 99 09/28/20 17:45 80 18 113/81 100 09/28/20 17:30 81 16 132/73 100 09/28/20 17:15 79 18 120/76 100 09/28/20 17:00 96.8 F L 82 18 100/54 100 Intake and Output 09/28/20 09/29/20 09/29/20 22:59 06:59 14:59 Intake Total 1100 850 300 Output Total 1715 545 245 Balance -615 305 55 Intake: IV 1100 850 300 0.9% NaCl with KCl 20 Meq 300 800 300 /l 1,000 ml @ 100 mls/hr IV .Q10H JOLLY Rx#: [id number] ceFAZolin 2 gm In Sodium 50 50 Chloride 0.9% 50 ml @ 100 mls/hr IVPB Q8H JOLLY Rx#: [id number] Output: Drainage 80 190 130 Back #1 30 90 50 Back #2 50 100 80 Urine 635 355 115 Estimated Blood Loss 1000 Other: Voiding Method Indwelling Catheter Indwelling Catheter Indwelling Catheter Weight 51.7 kg ABP, PAP, CO, CI - Last 8 Hours Arterial Blood Pressure 115/60 GENERAL EXAM: Groggy, but easily arousable, 64-year-old white female, on 2 L of oxygen and pulse ox of 96-97, resting in the bed, in the intensive care unit comfortable in no apparent distress. HEAD: Normocephalic/atraumatic. EYES: Normal reaction of pupils, equal size. Conjunctiva pink, sclera white. NOSE: Clear with pink turbinates. THROAT: No erythema or exudates. NECK: No masses, no JVD, no thyroid enlargement, no adenopathy. CHEST: No chest wall deformity. Symmetrical expansion. LUNGS: Equal air entry with no crackles, wheeze, rhonchi or dullness. CVS: Regular rate and rhythm, normal S1 and S2, no gallops, no murmurs, no rubs ABDOMEN: Soft, nontender. No hepatosplenomegaly, normal bowel sounds, no guarding or rigidity. EXTREMITIES: No clubbing, no edema, no cyanosis, 2+ pulses and upper and lower extremities. MUSCULOSKELETAL: Muscle strength and tone normal. SPINE: No scoliosis or deformity SKIN: No rashes CENTRAL NERVOUS SYSTEM: Alert and oriented -3. No focal deficits, tone is normal in all 4 extremities. PSYCHIATRIC: Alert and oriented -3. Appropriate affect. Intact judgment and insight. Results - Laboratory Findings CBC and BMP: 09/29/20 03:33 09/29/20 03:33 Abnormal lab findings: Abnormal Labs 09/28/20 09/28/20 09/28/20 13:14 17:50 18:24 WBC 12.4 H RBC 3.33 L Hgb 9.5 L D Hct 30.1 L RDW 15.8 H Neutrophils # 10.5 H Chloride Glucose POC Glucose (mg/dL) 169 H 142 H Calcium 09/29/20 09/29/20 03:33 03:33 WBC 11.6 H RBC 2.94 L Hgb 8.4 L Hct 26.7 L RDW 16.1 H Neutrophils # 9.6 H Chloride 113 H Glucose 146 H POC Glucose (mg/dL) Calcium 7.8 L Assessment and Plan Plan: Assessment: #1. L2 through S1 pseudoarthrosis, L1to proximal junctional failure, status post posterior thoracic 10 to pelvis revision, fusion with lumbar 2 to sacral 1 hardware removal in lumbar 1 to sacral 1 interbody fusion, postoperative day 1 #2. History of COPD, stable at this time #3. History of CVA/TIA #4. GERD/reflux #5. Hypertension #6. Hyperlipidemia #7. Chronic low back pain #8. Previous history of spinal fusion #9. History of chronic pancreatitis #10. Current every day smoker #11. Osteoarthritis Plan: Encourage deep breathing and coughing, from pulmonary perspective patient is stable, breathing comfortably, provide incentive spirometer, continue bronchodilators, increase activity as tolerated per spinal surgery recommendations. Vital signs have been stable, antibiotics per surgery. From pulmonary aspect patient can be transferred out of the ICU to regular medical surgical floor without telemetry. I performed a history & physical examination of the patient and discussed their management with my nurse practitioner, Edna Waters. I reviewed the nurse practitioner's note and agree with the documented findings and plan of care. Lung sounds are positive for diminished breath sounds. The findings and the impression was discussed with the patient. I attest to the documentation by the nurse practitioner. Time with Patient: Greater than 30
[2020-09-29] MEDS: ATORVASTATIN 40 MG TAB PO SCH (20:31)
[2020-09-30] MEDS: HYDROmorphone 1 MG/ML 1 ML SYRINGE IVP PRN ×2 (02:35→05:35)
[2020-09-30] MEDS: VANCOMYCIN 1,000 MG in SODIUM CHLORIDE 0.9% 250 ML IVPB SCH ×2 (05:21→22:04)
[2020-09-30 07:11] LABS: Basophils # (A) 0.1 k/uL (0-0.2); Basophils % (A) 1 %; Eosinophils # (A) 0.1 k/uL (0-0.7); Eosinophils % (A) 1 %; HCT 27.9 % (34.0-46.0); HGB 9.2 gm/dL (11.4-16.0); Lymphocytes # (A) 1.9 k/uL (1.0-4.8); Lymphocytes % (A) 10 %; MCH 29.8 pg (25.0-35.0); MCV 90.5 fL (80.0-100.0); Mean Platelet Volume 8.5; Monocytes # (A) 1.4 k/uL (0-1.0); Monocytes % (A) 8 %; Neutrophils # (A) 14.3 k/uL (1.3-7.7); Neutrophils % (A) 80 %; Platelet Count 236 k/uL (150-450); RBC 3.08 m/uL (3.80-5.40); RDW 15.9 % (11.5-15.5)
--- NOTE | 2020-09-30 08:51 | P.PN ---
Subjective Progress Note Date: 09/30/20 Principal diagnosis: L2-S1 pseudoarthrosis L1-2 proximal junctional failure Patient seen and examined this morning. States she is very painful. She did get up to the chair yesterday 1. She is currently lying in her own urine attempts to roll or with nursing and she is very painful she will get pain medications and needs to have her bed changed. We will leave the dressings at this time. Denies fevers or chills overnight however she have a fever 100.3 overnight which is noted. Her white cell count is slightly up today she is on antibiotics currently. Denies any new numbness or tingling. Denies any new weakness. Objective - Vital Signs Vital signs: Vital Signs Temp 100.6 F H 09/30/20 03:58 Pulse 96 09/30/20 03:58 Resp 16 09/30/20 03:58 BP 133/79 09/30/20 03:58 Pulse Ox 96 09/30/20 03:58 Intake & Output 09/29/20 09/30/20 09/30/20 18:59 06:59 18:59 Intake Total 300 250 Output Total 365 130 Balance -65 120 Intake: IV 300 0.9% NaCl with KCl 20 Meq 300 /l 1,000 ml @ 100 mls/hr IV .Q10H JOLLY Rx#: [id number] Oral 250 Output: Drainage 250 130 Back #1 100 70 Back #2 150 60 Urine 115 Other: Voiding Method Indwelling Catheter Diaper # Voids 1 # Bowel Movements 0 ABP, PAP, CO, CI - Last Documented Arterial Blood Pressure 115/60 - Exam Patient is alert and oriented 3 appears well-nourished well-hydrated is in no acute distress. They does not appear septic. On exam the patient has no tenderness to palpation of her thoracic or lumbar spine. There is no edema or ballottement sign. They have good strength in her lower extremities with 5 out of 5 dorsiflexion plantar flexion EHL and FHL bilaterally. Upper extremities show 5/5 strength in all major muscle groups except her left upper show minimal left lower extremity of which she is weak secondary to her previous stroke. There is FROM that is painless of the b/l UE and LE in all major joints. They are intact to light touch sensation in L2 to S1 nerve distribution. Patient has palpable dorsalis pedis was posterior tibial pulses. Compartments are soft and compressible. Patient shows a negative Homans, Beal's, negative Babinski's negative clonus bilaterally. negative straight leg raise bilaterally. No tensioning signs.Cranial nerves II through XII are grossly intact. Incision is clean and dry. Drains are putting out around 100 mL. No fluctuance no erythema or ecchymosis or edema - Labs CBC & Chem 7: 09/30/20 06:29 09/29/20 03:33 Labs: Abnormal Lab Results - Last 24 Hours (Table) 09/30/20 Range/Units 06:29 WBC 18.0 H (3.8-10.6) k/uL RBC 3.08 L (3.80-5.40) m/uL Hgb 9.2 L (11.4-16.0) gm/dL Hct 27.9 L (34.0-46.0) % RDW 15.9 H (11.5-15.5) % Neutrophils # 14.3 H (1.3-7.7) k/uL Monocytes # 1.4 H (0-1.0) k/uL Assessment and Plan Assessment: 64-year-old female postoperative day 2 T10 to pelvis revision fusion 1. status post L2-S1 fusion wit proximal junction failure 2. L2 fracture with hardware failure Plan: -Appreciate medicine management. -Pain control: Decreased Dilaudid 2.5 as patient is fairly somnolent. Push oral pain medication and multimodal pain medication -Aggressive ambulation protocol. OOB with all meals. OOB or in chair 4-5x daily. -PT/OT must work aggressively with the patient to get her mobilized again -TEDs, SCDs, mechanical ppx. OK for heparin today. Early ambulation is best. -GI ppx. -No further imaging needed at this time -Lovenox 30 subcu daily -Trend labs. -Dispo: We will need [facility]. Case management consult. Would like to start planning for this in the next couple of days.
[2020-09-30] MEDS ORDERED: CAFFEINE CITRATE 60 MG/3 ML VIAL PO SCH (09:00)
[2020-09-30] MEDS: CHOLECALCIFEROL 25 MCG (1000 IU) TABLET PO SCH (09:00)
[2020-09-30] MEDS: atenoloL 25 MG TAB PO SCH (09:01)
[2020-09-30] MEDS: DOCUSATE 100 MG CAP PO SCH ×2 (09:01→21:47)
[2020-09-30] MEDS: ENOXAPARIN 30 MG/0.3 ML SYRINGE SQ SCH (09:01)
[2020-09-30] MEDS: oxyCODONE-APAP 5-325MG 1 EACH TAB PO PRN ×3 (09:14→21:45)
[2020-09-30] MEDS: GABAPENTIN 300 MG CAP PO SCH ×2 (09:18→21:46)
[2020-09-30] MEDS: polyethylene glycoL 3350 17 GM POWD.PACK PO SCH (09:18)
[2020-09-30] MEDS: 0.9% NACL WITH KCL 20 MEQ/L 1,000 ML IV SCH ×2 (10:52→19:26)
[2020-09-30] MEDS ORDERED: ACETAMINOPHEN TAB 325 MG TAB PO PRN (12:44)
--- NOTE | 2020-09-30 12:50 | P.PN ---
Subjective Progress Note Date: 09/30/20 Pt appears slow in speech and sedated from narcotics, but continues to report pain outside of proportion to physical exam findings. No other complaints. Pt appears comfortable sitting up in chair, eating breakfast. Objective - Vital Signs Vital signs: Vital Signs Temp 100.6 F H 09/30/20 03:58 Pulse 96 09/30/20 03:58 Resp 16 09/30/20 03:58 BP 133/79 09/30/20 03:58 Pulse Ox 96 09/30/20 03:58 Intake & Output 09/29/20 09/30/20 09/30/20 18:59 06:59 18:59 Intake Total 300 250 Output Total 365 130 Balance -65 120 Intake: IV 300 0.9% NaCl with KCl 20 Meq 300 /l 1,000 ml @ 100 mls/hr IV .Q10H JOLLY Rx#: [id number] Oral 250 Output: Drainage 250 130 Back #1 100 70 Back #2 150 60 Urine 115 Other: Voiding Method Indwelling Catheter Diaper Bedside Commode Diaper # Voids 1 # Bowel Movements 0 ABP, PAP, CO, CI - Last Documented Arterial Blood Pressure 115/60 - Exam Gen: awake, alert HEENT: normocephalic, atraumatic, good hearing acuity, moist mucous membranes Resp: good air exchange, breathing comfortably with no accessory muscle use, clear to auscultation bilaterally CVS: good distal perfusion x 4, regular rate and rhythm without murmurs GI: soft, NTTP, ND : no SPT, no CVAT, giraldo catheter is present MSK: no pitting edema, no clubbing, 2 x JIM drains in the back Neuro: non-focal, moving all extremities Psych: cooperative, euthymic mood - Labs CBC & Chem 7: 09/30/20 06:29 09/29/20 03:33 Labs: Abnormal Lab Results - Last 24 Hours (Table) 09/30/20 Range/Units 06:29 WBC 18.0 H (3.8-10.6) k/uL RBC 3.08 L (3.80-5.40) m/uL Hgb 9.2 L (11.4-16.0) gm/dL Hct 27.9 L (34.0-46.0) % RDW 15.9 H (11.5-15.5) % Neutrophils # 14.3 H (1.3-7.7) k/uL Monocytes # 1.4 H (0-1.0) k/uL Assessment and Plan Assessment: 1. COPD without exacerbation 2. History of CVA/TIA 3. GERD with esophagitis 4. Hypertension, essential 5. Hyperlipidemia 6. Status post L2 to S1 spinal surgery fusion repair next 64-year-old woman with medical history of COPD, CVA/TIA, GERD, HTN/HLD presented for elective procedure with spine surgery; medicine consulted for comanagement of comorbidities. Plan: Presently holding her home atenolol, amlodipine, lipitor, aspirin, albuterol. - we can resume atenolol, lipitor, albuterol - continue holding amlodipine, re: aspirin, would require ortho approval - pain control per primary team - DVT PPx with enoxaparin - PT/OT - re: pain control, strongly recommend avoiding IV narcotics, and trialing non-narcotic meds prior to administering norco. Added tylenol 650 q6h PRN - had low grade fever, likely secondary to atelectasis, but will continue to monitor. Full Code
[2020-09-30] MEDS: CAFFEINE CITRATE 60 MG/3 ML VIAL PO SCH (13:37)
[2020-09-30] MEDS ORDERED: CHERRY FLAVOR 60 ML BOTTLE PO PRN (13:44)
[2020-09-30 13:56] VITALS: BMI 17.8
[2020-09-30] MEDS: HYDROmorphone 0.5 MG/0.5 ML SYRINGE IVP PRN ×2 (19:23→23:45)
[2020-09-30] MEDS: ATORVASTATIN 40 MG TAB PO SCH (21:45)
[2020-10-01] MEDS: oxyCODONE-APAP 5-325MG 1 EACH TAB PO PRN ×3 (01:40→18:48)
[2020-10-01] MEDS: HYDROmorphone 0.5 MG/0.5 ML SYRINGE IVP PRN ×3 (02:59→20:31)
[2020-10-01] MEDS: 0.9% NACL WITH KCL 20 MEQ/L 1,000 ML IV SCH ×2 (03:45→14:17)
[2020-10-01 04:36] LABS: Basophils % (A) 0 %; Eosinophils # (A) 0.3 k/uL (0-0.7); Eosinophils % (A) 2 %; HCT 22.1 % (34.0-46.0); Hypochromasia Slight; Lymphocytes # (A) 2.1 k/uL (1.0-4.8); Lymphocytes % (A) 19 %; MCH 29.7 pg (25.0-35.0); MCHC 31.9 g/dL (31.0-37.0); MCV 93.3 fL (80.0-100.0); Mean Platelet Volume 7.3; Monocytes # (A) 0.5 k/uL (0-1.0); Monocytes % (A) 4 %; Neutrophils # (A) 7.6 k/uL (1.3-7.7); Neutrophils % (A) 72 %; Platelet Count 226 k/uL (150-450); RBC 2.36 m/uL (3.80-5.40); RDW 15.6 % (11.5-15.5); WBC 10.5 k/uL (3.8-10.6)
[2020-10-01] MEDS: CAFFEINE CITRATE 60 MG/3 ML VIAL PO SCH ×2 (07:27→07:32)
[2020-10-01] MEDS: polyethylene glycoL 3350 17 GM POWD.PACK PO SCH (07:29)
[2020-10-01] MEDS: DOCUSATE 100 MG CAP PO SCH ×2 (07:29→20:30)
[2020-10-01] MEDS: ENOXAPARIN 30 MG/0.3 ML SYRINGE SQ SCH (07:29)
[2020-10-01] MEDS: GABAPENTIN 300 MG CAP PO SCH ×2 (07:29→20:30)
[2020-10-01] MEDS: atenoloL 25 MG TAB PO SCH (07:29)
[2020-10-01] MEDS: CHOLECALCIFEROL 25 MCG (1000 IU) TABLET PO SCH (07:29)
--- NOTE | 2020-10-01 08:11 | P.PN ---
Subjective Progress Note Date: 10/01/20 Principal diagnosis: L2-S1 pseudoarthrosis L1-2 proximal junctional failure Patient seen and examined this morning. She is much more lucid this morning she has been. She is again found however laying on her own urine. She states that she connected to the bathroom in time because she is not willing to try and get up. She does not seem to call nursing in time as well. She is up in the chair yesterday and did well with this. She denies any fevers chills shortness of breath or chest pain at this time. She denies any new numbness or tingling. She denies any new weakness. Hemoglobin is trending downwards and a 7 this morning. She will be transfused 1 unit of PRBCs Objective - Vital Signs Vital signs: Vital Signs Temp 98.4 F 10/01/20 04:42 Pulse 83 10/01/20 04:42 Resp 18 09/30/20 19:42 BP 126/72 10/01/20 04:42 Pulse Ox 94 L 10/01/20 04:42 Intake & Output 09/30/20 10/01/20 10/01/20 18:59 06:59 18:59 Intake Total 20 1150 Output Total 80 40 Balance -60 1110 Weight 51.7 kg Intake: Intake, IV Titration 1150 Amount 0.9% NaCl with KCl 20 Meq 900 /l 1,000 ml @ 100 mls/hr IV .Q10H [facility] Rx#: [id number] Vancomycin 1,000 mg In 250 Sodium Chloride 0.9% 250 ml @ 125 mls/hr IVPB Q16H JO[facility] Rx#:[id number] Oral 20 Output: Drainage 80 40 Back #1 15 5 Back #2 65 35 Other: Voiding Method Bedside Commode Bedside Commode Diaper Diaper # Voids 1 5 # Bowel Movements 0 1 ABP, PAP, CO, CI - Last Documented Arterial Blood Pressure 115/60 - Exam Patient is alert and oriented 3 appears well-nourished well-hydrated is in no acute distress. They does not appear septic. On exam the patient has no tenderness to palpation of her thoracic or lumbar spine. There is no edema or ballottement sign. They have good strength in her lower extremities with 5 out of 5 dorsiflexion plantar flexion EHL and FHL bilaterally. Upper extremities show 5/5 strength in all major muscle groups except her left upper show minimal left lower extremity of which she is weak secondary to her previous stroke. There is FROM that is painless of the b/l UE and LE in all major joints. They are intact to light touch sensation in L2 to S1 nerve distribution. Patient has palpable dorsalis pedis was posterior tibial pulses. Compartments are soft and compressible. Patient shows a negative Homans, Beal's, negative Babinski's negative clonus bilaterally. negative straight leg raise bilaterally. No tensioning signs.Cranial nerves II through XII are grossly intact. Incision is clean and dry. Drains are putting out around 100 mL. No fluctuance no erythema or ecchymosis or edema Incision is clean dry and intact. Drains are removed today. There is no other drainage. Dressing is changed and incision was saturated and urine. This was cleaned. - Constitutional General appearance: Present: cooperative - Labs CBC & Chem 7: 10/01/20 04:20 09/29/20 03:33 Labs: Abnormal Lab Results - Last 24 Hours (Table) 10/01/20 Range/Units 04:20 RBC 2.36 L (3.80-5.40) m/uL Hgb 7.0 L D (11.4-16.0) gm/dL Hct 22.1 L (34.0-46.0) % RDW 15.6 H (11.5-15.5) % Assessment and Plan Assessment: 64-year-old female postoperative day 3 T10 to pelvis revision fusion 1. status post L2-S1 fusion wit proximal junction failure 2. L2 fracture with hardware failure Plan: -Appreciate medicine management. -Transfuse 1 U PRBC for Hgb Trending downward and <8 this AM after large thoracolumbar fusion -Pain control: Decreased Dilaudid as patient is fairly somnolent. Push oral pain medication and multimodal pain medication -Aggressive ambulation protocol. OOB with all meals. OOB or in chair 4-5x daily. -PT/OT must work aggressively with the patient to get her mobilized again -TEDs, SCDs, mechanical ppx. OK for heparin today. Early ambulation is best. -GI ppx. -No further imaging needed at this time -Lovenox 30 subcu daily -Trend labs. Repeat Hgb at 1300 after blood -Shower today. Redress incision after shower. -Dispo: We will need [facility]. Case management consult. Would like to start planning for this in the next couple of days. Pt adamant that she not go to [facility], however with him not being able to visit her, I feel he underestimates her needs. I have tried to convey them to him several times, but he still thinks she needs to go home instead. We will monitor her through the weekend and see how she progresses.
--- NOTE | 2020-10-01 11:08 | P.PN ---
Subjective Progress Note Date: 10/01/20 Pt appears comfortable, sitting in a chair, responding appropriately. Plan for ambulation TID today, minimization of narcotic pain meds. Objective - Vital Signs Vital signs: Vital Signs Temp 98.3 F 10/01/20 10:17 Pulse 83 10/01/20 10:17 Resp 18 10/01/20 10:17 BP 145/76 10/01/20 10:17 Pulse Ox 97 10/01/20 10:17 Intake & Output 09/30/20 10/01/20 10/01/20 18:59 06:59 18:59 Intake Total 20 1150 0 Output Total 80 40 Balance -60 1110 0 Weight 51.7 kg Intake: Intake, IV Titration 1150 Amount 0.9% NaCl with KCl 20 Meq 900 /l 1,000 ml @ 100 mls/hr IV .Q10H JOLLY Rx#: [id number] Vancomycin 1,000 mg In 250 Sodium Chloride 0.9% 250 ml @ 125 mls/hr IVPB Q16H JOLLY Rx#:[id number] Oral 20 Blood Product 0 Rc As-1 Unit 0 [id number] Output: Drainage 80 40 Back #1 15 5 Back #2 65 35 Other: Voiding Method Bedside Commode Bedside Commode Bedside Commode Diaper Diaper Diaper # Voids 1 5 # Bowel Movements 0 1 ABP, PAP, CO, CI - Last Documented Arterial Blood Pressure 115/60 - Exam Gen: awake, alert HEENT: normocephalic, atraumatic, good hearing acuity, moist mucous membranes Resp: good air exchange, breathing comfortably with no accessory muscle use, clear to auscultation bilaterally CVS: good distal perfusion x 4, regular rate and rhythm without murmurs GI: soft, NTTP, ND : no SPT, no CVAT, giraldo catheter is present MSK: no pitting edema, no clubbing, 2 x JIM drains in the back Neuro: non-focal, moving all extremities Psych: cooperative, euthymic mood - Labs CBC & Chem 7: 10/01/20 04:20 09/29/20 03:33 Labs: Abnormal Lab Results - Last 24 Hours (Table) 10/01/20 10/01/20 Range/Units 04:20 07:49 RBC 2.36 L (3.80-5.40) m/uL Hgb 7.0 L D (11.4-16.0) gm/dL Hct 22.1 L (34.0-46.0) % RDW 15.6 H (11.5-15.5) % Crossmatch See Detail Assessment and Plan Assessment: 1. COPD without exacerbation 2. History of CVA/TIA 3. GERD with esophagitis 4. Hypertension, essential 5. Hyperlipidemia 6. Status post L2 to S1 spinal surgery fusion repair next 64-year-old woman with medical history of COPD, CVA/TIA, GERD, HTN/HLD presented for elective procedure with spine surgery; medicine consulted for comanagement of comorbidities. Plan: Presently holding her home atenolol, amlodipine, lipitor, aspirin, albuterol. - we can resume atenolol, lipitor, albuterol - continue holding amlodipine, re: aspirin, would require ortho approval - pain control per primary team - DVT PPx with enoxaparin - PT/OT - re: pain control, strongly recommend avoiding IV narcotics, and trialing non- narcotic meds prior to administering norco. Added tylenol 650 q6h PRN - had low grade fever, likely secondary to atelectasis, but will continue to monitor; remained afebrile over last 24 hours, patient started on vancomycin by primary team with resolution of WBC Full Code
[2020-10-01] MEDS ORDERED: VANCOMYCIN TROUGH DUE 1 EACH MISC MISCELLANE ONE (13:00)
[2020-10-01 13:23] LABS: Basophils % (A) 0 %; Eosinophils # (A) 0.2 k/uL (0-0.7); Eosinophils % (A) 2 %; HCT 29.4 % (34.0-46.0); Hypochromasia Slight; Lymphocytes # (A) 1.5 k/uL (1.0-4.8); Lymphocytes % (A) 14 %; MCH 27.9 pg (25.0-35.0); MCHC 30.5 g/dL (31.0-37.0); MCV 91.3 fL (80.0-100.0); Mean Platelet Volume 7.2; Monocytes # (A) 0.5 k/uL (0-1.0); Monocytes % (A) 4 %; Neutrophils # (A) 8.9 k/uL (1.3-7.7); Neutrophils % (A) 78 %; Platelet Count 282 k/uL (150-450); RBC 3.22 m/uL (3.80-5.40); RDW 15.9 % (11.5-15.5); WBC 11.3 k/uL (3.8-10.6)
[2020-10-01] MEDS: CYCLOBENZAPRINE 10 MG TAB PO PRN (14:16)
[2020-10-01] MEDS: VANCOMYCIN 1,000 MG in SODIUM CHLORIDE 0.9% 250 ML IVPB SCH (14:16)
[2020-10-01] MEDS: ATORVASTATIN 40 MG TAB PO SCH (20:30)
[2020-10-02] MEDS: 0.9% NACL WITH KCL 20 MEQ/L 1,000 ML IV SCH ×3 (01:00→21:22)
[2020-10-02] MEDS: oxyCODONE-APAP 5-325MG 1 EACH TAB PO PRN ×2 (01:29→16:58)
[2020-10-02] MEDS: VANCOMYCIN 1,000 MG in SODIUM CHLORIDE 0.9% 250 ML IVPB SCH ×2 (02:22→14:41)
[2020-10-02] MEDS: HYDROmorphone 0.5 MG/0.5 ML SYRINGE IVP PRN ×4 (02:22→12:50)
[2020-10-02] MEDS: CYCLOBENZAPRINE 10 MG TAB PO PRN ×2 (05:08→18:14)
[2020-10-02 05:20] LABS: Anisocytosis Slight; Basophils % (A) 0 %; Eosinophils # (A) 0.3 k/uL (0-0.7); Eosinophils % (A) 4 %; HCT 28.7 % (34.0-46.0); HGB 9.3 gm/dL (11.4-16.0); Lymphocytes # (A) 1.7 k/uL (1.0-4.8); Lymphocytes % (A) 18 %; MCH 29.2 pg (25.0-35.0); MCHC 32.6 g/dL (31.0-37.0); MCV 89.4 fL (80.0-100.0); Mean Platelet Volume 7.2; Monocytes # (A) 0.5 k/uL (0-1.0); Monocytes % (A) 5 %; Neutrophils # (A) 6.7 k/uL (1.3-7.7); Neutrophils % (A) 71 %; Platelet Count 321 k/uL (150-450); RBC 3.21 m/uL (3.80-5.40); RDW 16.3 % (11.5-15.5); WBC 9.4 k/uL (3.8-10.6)
[2020-10-02] MEDS: GABAPENTIN 300 MG CAP PO SCH ×2 (08:00→20:04)
[2020-10-02] MEDS: CHOLECALCIFEROL 25 MCG (1000 IU) TABLET PO SCH (08:00)
[2020-10-02] MEDS: ENOXAPARIN 30 MG/0.3 ML SYRINGE SQ SCH (08:01)
[2020-10-02] MEDS: polyethylene glycoL 3350 17 GM POWD.PACK PO SCH (08:01)
[2020-10-02] MEDS: atenoloL 25 MG TAB PO SCH (08:01)
[2020-10-02] MEDS: DOCUSATE 100 MG CAP PO SCH ×2 (08:01→20:04)
[2020-10-02 09:32] LABS: African American GFR (CKD) 111.6 (60.0-200.0); Non-African American GFR(CKD) 96.3 (60.0-200.0)
--- NOTE | 2020-10-02 13:26 | P.PN ---
Subjective Progress Note Date: 10/02/20 Pt continues to report 9/10 pain, despite appearing quite comfortable on physical exam and interview. Objective - Vital Signs Vital signs: Vital Signs Temp 98.8 F 10/02/20 12:03 Pulse 85 10/02/20 12:03 Resp 16 10/02/20 12:03 BP 130/79 10/02/20 12:03 Pulse Ox 96 10/02/20 12:03 Intake & Output 10/01/20 10/02/20 10/02/20 18:59 06:59 18:59 Intake Total 430 600 Balance 430 600 Intake: IV 600 0.9% NaCl with KCl 20 Meq 600 /l 1,000 ml @ 100 mls/hr IV .Q10H JOLLY Rx#: [id number] Oral 120 Blood Product 310 Rc As-1 Unit 310 [id number] Other: Voiding Method Bedside Commode Diaper Diaper Incontinent Incontinent # Voids 3 1 1 ABP, PAP, CO, CI - Last Documented Arterial Blood Pressure 115/60 - Exam Gen: awake, alert HEENT: normocephalic, atraumatic, good hearing acuity, moist mucous membranes Resp: good air exchange, breathing comfortably with no accessory muscle use, clear to auscultation bilaterally CVS: good distal perfusion x 4, regular rate and rhythm without murmurs GI: soft, NTTP, ND : no SPT, no CVAT, giraldo catheter is present MSK: no pitting edema, no clubbing, Neuro: non-focal, moving all extremities Psych: cooperative, euthymic mood - Labs CBC & Chem 7: 10/02/20 05:10 10/02/20 05:02 Labs: Abnormal Lab Results - Last 24 Hours (Table) 10/01/20 10/02/20 Range/Units 12:55 05:10 WBC 11.3 H (3.8-10.6) k/uL RBC 3.22 L 3.21 L (3.80-5.40) m/uL Hgb 9.0 L D 9.3 L (11.4-16.0) gm/dL Hct 29.4 L 28.7 L (34.0-46.0) % MCHC 30.5 L (31.0-37.0) g/dL RDW 15.9 H 16.3 H (11.5-15.5) % Neutrophils # 8.9 H (1.3-7.7) k/uL Assessment and Plan Assessment: 1. COPD without exacerbation 2. History of CVA/TIA 3. GERD with esophagitis 4. Hypertension, essential 5. Hyperlipidemia 6. Status post L2 to S1 spinal surgery fusion repair next 64-year-old woman with medical history of COPD, CVA/TIA, GERD, HTN/HLD presented for elective procedure with spine surgery; medicine consulted for comanagement of comorbidities. Plan: Presently holding her home atenolol, amlodipine, lipitor, aspirin, albuterol. - we can resume atenolol, lipitor, albuterol - continue holding amlodipine, re: aspirin, would require ortho approval - pain control per primary team - DVT PPx with enoxaparin - PT/OT - re: pain control, strongly recommend avoiding IV narcotics, and trialing non- narcotic meds prior to administering norco. - Added tylenol 650 q6h PRN - dilaudid IV PRN order d/c'd on 10/02 - had low grade fever, likely secondary to atelectasis, but will continue to monitor; remained afebrile over last 24 hours, patient started on vancomycin by primary team with resolution of WBC Full Code
--- NOTE | 2020-10-02 14:58 | P.PN ---
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 No issues overnight. States she was up in chair. Aware and answers appropriate. No increased pain. No new symptoms. Denies f/c/sob/cp at this time. Objective - Vital Signs Vital signs: Vital Signs Temp 98.8 F 10/02/20 12:03 Pulse 85 10/02/20 12:03 Resp 16 10/02/20 12:03 BP 130/79 10/02/20 12:03 Pulse Ox 96 10/02/20 12:03 Intake & Output 10/01/20 10/02/20 10/02/20 18:59 06:59 18:59 Intake Total 430 600 Balance 430 600 Intake: IV 600 0.9% NaCl with KCl 20 Meq 600 /l 1,000 ml @ 100 mls/hr IV .Q10H JOLLY Rx#: [id number] Oral 120 Blood Product 310 Rc As-1 Unit 310 [id number] Other: Voiding Method Bedside Commode Diaper Diaper Incontinent Incontinent # Voids 3 1 1 ABP, PAP, CO, CI - Last Documented Arterial Blood Pressure 115/60 - Exam Patient is alert and oriented 3 appears well-nourished well-hydrated is in no acute distress. They does not appear septic. On exam the patient has no tenderness to palpation of her thoracic or lumbar spine. There is no edema or ballottement sign. They have good strength in her lower extremities with 5 out of 5 dorsiflexion plantar flexion EHL and FHL bilaterally. Upper extremities show 5/5 strength in all major muscle groups except her left upper show minimal left lower extremity of which she is weak secondary to her previous stroke. There is FROM that is painless of the b/l UE and LE in all major joints. They a re intact to light touch sensation in L2 to S1 nerve distribution. Patient has palpable dorsalis pedis was posterior tibial pulses. Compartments are soft and compressible. Patient shows a negative Homans, Beal's, negative Babinski's negative clonus bilaterally. negative straight leg raise bilaterally. No tensioning signs.Cranial nerves II through XII are grossly intact. Incision is clean and dry. Drains are putting out around 100 mL. No fluctuance no erythema or ecchymosis or edema Incision is clean dry and intact. Drains are removed today. There is no other drainage. Dressing is changed and incision was saturated and urine. This was cleaned. - Labs CBC & Chem 7: 10/02/20 05:10 10/02/20 05:02 Labs: Abnormal Lab Results - Last 24 Hours (Table) 10/02/20 Range/Units 05:10 RBC 3.21 L (3.80-5.40) m/uL Hgb 9.3 L (11.4-16.0) gm/dL Hct 28.7 L (34.0-46.0) % RDW 16.3 H (11.5-15.5) % Assessment and Plan Assessment: 64-year-old female postoperative day 3 T10 to pelvis revision fusion 1. status post L2-S1 fusion wit proximal junction failure 2. L2 fracture with hardware failure Plan: -Appreciate medicine management. -HGB stablized -Pain control: Decreased Dilaudid as patient is fairly somnolent. Push oral pain medication and multimodal pain medication -Aggressive ambulation protocol. OOB with all meals. OOB or in chair 4-5x daily. -PT/OT must work aggressively with the patient to get her mobilized again -TEDs, SCDs, mechanical ppx. OK for heparin today. Early ambulation is best. -GI ppx. -No further imaging needed at this time -Lovenox 30 subcu daily -Trend labs. Repeat Hgb at 1300 after blood -Shower today. Redress incision after shower. -Dispo: We will need [facility]. Case management consult. Would like to start planning for this in the next couple of days. Pt adamant that she not go to [facility], however with him not being able to visit her, I feel he underestimates her needs. I have tried to convey them to him several times, but he still thinks she needs to go home instead. We will monitor her through the weekend and see how she progresses.
[2020-10-02] MEDS: ATORVASTATIN 40 MG TAB PO SCH (20:04)
[2020-10-02] MEDS ORDERED: HYDROcodone/APAP 5-325MG 1 EACH TAB PO ONE (20:59)
[2020-10-03] MEDS: 0.9% NACL WITH KCL 20 MEQ/L 1,000 ML IV SCH ×2 (02:35→15:00)
[2020-10-03] MEDS: oxyCODONE-APAP 5-325MG 1 EACH TAB PO PRN ×5 (02:36→22:07)
[2020-10-03] MEDS: VANCOMYCIN 1,000 MG in SODIUM CHLORIDE 0.9% 250 ML IVPB SCH ×2 (02:38→15:01)
[2020-10-03] MEDS: CYCLOBENZAPRINE 10 MG TAB PO PRN ×2 (05:56→17:18)
[2020-10-03] MEDS: CHOLECALCIFEROL 25 MCG (1000 IU) TABLET PO SCH (08:14)
[2020-10-03] MEDS: atenoloL 25 MG TAB PO SCH (08:15)
[2020-10-03] MEDS: DOCUSATE 100 MG CAP PO SCH ×2 (08:15→21:45)
[2020-10-03] MEDS: polyethylene glycoL 3350 17 GM POWD.PACK PO SCH (08:16)
[2020-10-03] MEDS: GABAPENTIN 300 MG CAP PO SCH ×2 (08:16→21:45)
[2020-10-03] MEDS: ENOXAPARIN 30 MG/0.3 ML SYRINGE SQ SCH (08:16)
[2020-10-03 09:57] LABS: African American GFR (CKD) 106.1 (60.0-200.0); Non-African American GFR(CKD) 91.6 (60.0-200.0)
--- NOTE | 2020-10-03 11:20 | P.PN ---
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 She denies any increase in pain. She denies any change in any other symptoms no increased or change numbness and tingling no weakness no bowel bladder issues no fevers chills shortness of breath or chest pain Objective - Vital Signs Vital signs: Vital Signs Temp 98.1 F 10/03/20 05:35 Pulse 79 10/03/20 05:35 Resp 16 10/03/20 05:35 BP 110/72 10/03/20 05:35 Pulse Ox 98 10/03/20 05:35 Intake & Output 10/02/20 10/03/20 10/03/20 18:59 06:59 18:59 Intake Total 750 Balance 750 Intake: Intake, IV Titration 750 Amount 0.9% NaCl with KCl 20 Meq 500 /l 1,000 ml @ 100 mls/hr IV .Q10H JOLLY Rx#: [id number] Vancomycin 1,000 mg In 250 Sodium Chloride 0.9% 250 ml @ 125 mls/hr IVPB Q12H JOLLY Rx#:[id number] Other: Voiding Method Diaper Diaper Diaper Incontinent Incontinent Incontinent # Voids 2 1 ABP, PAP, CO, CI - Last Documented Arterial Blood Pressure 115/60 - Exam Patient is alert and oriented 3 appears well-nourished well-hydrated is in no acute distress. They does not appear septic. On exam the patient has no tenderness to palpation of her thoracic or lumbar spine. There is no edema or ballottement sign. They have good strength in her lower extremities with 5 out of 5 dorsiflexion plantar flexion EHL and FHL bilaterally. Upper extremities show 5/5 strength in all major muscle groups except her left upper show minimal left lower extremity of which she is weak secondary to her previous stroke. There is FROM that is painless of the b/l UE and LE in all major joints. They are intact to light touch sensation in L2 to S1 nerve distribution. Patient has palpable dorsalis pedis was posterior tibial pulses. Compartments are soft and compressible. Patient shows a negative Homans, Beal's, negative Babinski's negative clonus bilaterally. negative straight leg raise bilaterally. No tensioning signs.Cranial nerves II through XII are grossly intact. Incision is clean and dry. Drains are putting out around 100 mL. No fluctuance no erythema or ecchymosis or edema Incision is clean dry and intact. Drains are removed today. There is no other drainage. Dressing is changed and incision was saturated and urine. This was cleaned. - Labs CBC & Chem 7: 10/02/20 05:10 10/03/20 05:08 Assessment and Plan Assessment: 64-year-old female postoperative day 5 T10 to pelvis revision fusion 1. status post L2-S1 fusion wit proximal junction failure 2. L2 fracture with hardware failure Plan: -Appreciate medicine management. -HGB stablized -Pain control: Decreased Dilaudid as patient is fairly somnolent. Push oral pain medication and multimodal pain medication -Aggressive ambulation protocol. OOB with all meals. OOB or in chair 4-5x daily. -PT/OT must work aggressively with the patient to get her mobilized again -TEDs, SCDs, mechanical ppx. OK for heparin today. Early ambulation is best. -GI ppx. -No further imaging needed at this time -Lovenox 30 subcu daily -Trend labs. Status post 1 unit PRBC hemoglobin rebounded -Shower today. Redress incision after shower. -Dispo: Patient requests to be discharged home 10/04/2020 Pt adamant that she not go to [facility], however with him not being able to visit her, I feel he underestimates her needs. I have tried to convey them to him several times, but he still thinks she needs to go home instead. We will monitor her through the weekend and see how she progresses.
--- NOTE | 2020-10-03 12:49 | P.PN ---
Subjective Progress Note Date: 10/03/20 Pt has no complaints for me on exam today. Appears comfortable at rest. Pending dispo tomorrow. Pain is controlled on oral narcotics Objective - Vital Signs Vital signs: Vital Signs Temp 98 F 10/03/20 12:09 Pulse 65 10/03/20 12:09 Resp 17 10/03/20 12:09 BP 106/66 10/03/20 12:09 Pulse Ox 99 10/03/20 12:09 Intake & Output 10/02/20 10/03/20 10/03/20 18:59 06:59 18:59 Intake Total 750 Balance 750 Intake: Intake, IV Titration 750 Amount 0.9% NaCl with KCl 20 Meq 500 /l 1,000 ml @ 100 mls/hr IV .Q10H JOLLY Rx#: [id number] Vancomycin 1,000 mg In 250 Sodium Chloride 0.9% 250 ml @ 125 mls/hr IVPB Q12H JOLLY Rx#:[id number] Other: Voiding Method Diaper Diaper Diaper Incontinent Incontinent Incontinent # Voids 2 1 ABP, PAP, CO, CI - Last Documented Arterial Blood Pressure 115/60 - Exam Gen: awake, alert HEENT: normocephalic, atraumatic, good hearing acuity, moist mucous membranes Resp: good air exchange, breathing comfortably with no accessory muscle use, clear to auscultation bilaterally CVS: good distal perfusion x 4, regular rate and rhythm without murmurs GI: soft, NTTP, ND : no SPT, no CVAT, giraldo catheter is present MSK: no pitting edema, no clubbing, Neuro: non-focal, moving all extremities Psych: cooperative, euthymic mood - Labs CBC & Chem 7: 10/02/20 05:10 10/03/20 05:08 Assessment and Plan Assessment: 1. COPD without exacerbation 2. History of CVA/TIA 3. GERD with esophagitis 4. Hypertension, essential 5. Hyperlipidemia 6. Status post L2 to S1 spinal surgery fusion repair next 64-year-old woman with medical history of COPD, CVA/TIA, GERD, HTN/HLD presented for elective procedure with spine surgery; medicine consulted for comanagement of comorbidities. Plan: Presently holding her home atenolol, amlodipine, lipitor, aspirin, albuterol. - we can resume atenolol, lipitor, albuterol - continue holding amlodipine, re: aspirin, would require ortho approval - pain control per primary team - DVT PPx with enoxaparin - PT/OT - re: pain control, strongly recommend avoiding IV narcotics, and trialing non- narcotic meds prior to administering norco. - Added tylenol 650 q6h PRN - dilaudid IV PRN order d/c'd on 10/02 - had low grade fever, likely secondary to atelectasis, but will continue to monitor; remained afebrile over last 24 hours, - patient started on vancomycin by primary team with resolution of WBC, can dc at discharge Full Code
[2020-10-03] MEDS: ATORVASTATIN 40 MG TAB PO SCH (21:45)
[2020-10-04] MEDS: CYCLOBENZAPRINE 10 MG TAB PO PRN (01:52)
[2020-10-04] MEDS: VANCOMYCIN 1,000 MG in SODIUM CHLORIDE 0.9% 250 ML IVPB SCH (01:55)
[2020-10-04] MEDS: oxyCODONE-APAP 5-325MG 1 EACH TAB PO PRN ×2 (03:26→10:57)
[2020-10-04] MEDS: 0.9% NACL WITH KCL 20 MEQ/L 1,000 ML IV SCH (03:29)
[2020-10-04 04:28] VITALS: BP 124/82; PULSE 86; RESP 18; TEMP 98.4
--- NOTE | 2020-10-04 07:28 | P.PN ---
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 No Issues overnight. Sat up in chair all day yesterday with no issuse. Pain controlled on PO. Wants to go home. Objective - Vital Signs Vital signs: Vital Signs Temp 98.4 F 10/04/20 04:27 Pulse 86 10/04/20 04:27 Resp 18 10/04/20 04:27 BP 124/82 10/04/20 04:27 Pulse Ox 96 10/04/20 04:27 Intake & Output 10/03/20 10/04/20 10/04/20 18:59 06:59 18:59 Intake Total 1650 900 Balance 1650 900 Intake: Intake, IV Titration 1050 900 Amount 0.9% NaCl with KCl 20 Meq 800 900 /l 1,000 ml @ 100 mls/hr IV .Q10H JOLLY Rx#: [id number] Vancomycin 1,000 mg In 250 Sodium Chloride 0.9% 250 ml @ 125 mls/hr IVPB Q12H JOLLY Rx#:[id number] Oral 600 Other: Voiding Method Diaper Diaper Incontinent Incontinent # Voids 3 2 # Bowel Movements 2 ABP, PAP, CO, CI - Last Documented Arterial Blood Pressure 115/60 - Exam Patient is alert and oriented 3 appears well-nourished well-hydrated is in no acute distress. They does not appear septic. On exam the patient has no tende rness to palpation of her thoracic or lumbar spine. There is no edema or ballottement sign. They have good strength in her lower extremities with 5 out of 5 dorsiflexion plantar flexion EHL and FHL bilaterally. Upper extremities show 5/5 strength in all major muscle groups except her left upper show minimal left lower extremity of which she is weak secondary to her previous stroke. There is FROM that is painless of the b/l UE and LE in all major joints. They are intact to light touch sensation in L2 to S1 nerve distribution. Patient has palpable dorsalis pedis was posterior tibial pulses. Compartments are soft and compressible. Patient shows a negative Homans, Beal's, negative Babinski's negative clonus bilaterally. negative straight leg raise bilaterally. No tensioning signs.Cranial nerves II through XII are grossly intact. Incision is clean and dry. Drains are putting out around 100 mL. No fluctuance no erythema or ecchymosis or edema Incision is clean dry and intact. - Labs CBC & Chem 7: 10/02/20 05:10 10/03/20 05:08 Assessment and Plan Assessment: 64-year-old female postoperative day 6 T10 to pelvis revision fusion 1. status post L2-S1 fusion wit proximal junction failure 2. L2 fracture with hardware failure Plan: -Appreciate medicine management. -HGB stablized -Pain control: Decreased Dilaudid as patient is fairly somnolent. Push oral pain medication and multimodal pain medication -Aggressive ambulation protocol. OOB with all meals. OOB or in chair 4-5x daily. -PT/OT must work aggressively with the patient to get her mobilized again -TEDs, SCDs, mechanical ppx. OK for heparin today. Early ambulation is best. -GI ppx. -No further imaging needed at this time -Lovenox 30 subcu daily -Trend labs. Status post 1 unit PRBC hemoglobin rebounded -Shower today. Redress incision after shower. -Dispo: Patient requests to be discharged home 10/04/2020 Pt adamant that she not go to [facility], however with him not being able to visit her, I feel he underestimates her needs. I have tried to convey them to him several times, but he still thinks she needs to go home instead. We will monitor her through the weekend and see how she progresses.
--- NOTE | 2020-10-04 07:34 | P.DS ---
Providers Date of admission: 09/28/20 05:53 Expected date of discharge: 10/04/20 Attending physician: Bert Greenfield DO Consults: 09/28/20 17:09 Consult Physician Routine Consulting Provider: Kaylee Tavarez Consult Reason/Comments: medical management Do you want consulting provider notified?: Yes 09/28/20 17:51 Consult Physician Routine Consulting Provider: Juan C Bowers Reason/Comments: ICU management Do you want consulting provider notified?: Yes Primary care physician: [facility] Course: Spine Surgery Discharge Summary Note Admission Date: 09/28/2020 Discharge Date: 10/04/2020 Providers: George Greenfield S. 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 They underwent appropriate preoperative care and were willing to undergo the intended procedure. They underwent a successful [ Revision [id number] fusion and decompression with L1-2 interbody fusion and deformity correction], were recovered appropriately and sent to the floor. While on the floor they worked with physical therapy, occupational therapy and nursing to enhance their recovery experience. Their pain was well controlled through their stay and they were started on appropriate medications, DVT ppx modalities, activity and dietary needs. Daily labs were monitored closely, and transfusions were only used when necessary. Medicine as well as other consulting services have made their input and have helped with our team approach and multidisciplinary care. PT milestones have been met and passed and they have made the recommendation of GRIFFIN originally, howevere the and patient declined this and are planning on going home with home care as well as her and her daughter to help her at home. They refused GRIFFIN for this purpose. for this patient and treating providers agree with this care path. The patient will be discharged home with appropriate medications, instructions and follow-up information and in stable condition. Plan - Discharge Summary Discharge Rx Participant: Yes New Discharge Prescriptions: New Cyclobenzaprine [Flexeril] 10 mg PO HS #40 tab Gabapentin 300 mg PO TID #90 cap Polyethylene Glycol 3350 [Miralax] 17 gm PO DAILY PRN #527 gm PRN Reason: Constipation HYDROcodone/APAP 10-325MG [[place] 10-325] 1 - 2 tab PO Q4HR PRN #56 tab PRN Reason: Pain Sennosides/Docusate Sodium [Senna Plus 8.6-50 mg Softgel] 1 each PO BID PRN #20 capsule PRN Reason: Constipation No Action Atorvastatin [Lipitor] 40 mg PO HS Albuterol Inhaler [Ventolin Hfa Inhaler] 2 puff INHALATION RT-Q4H PRN PRN Reason: Shortness Of Breath Gabapentin [Neurontin] 100 mg PO TID Cholecalciferol [Vitamin D3 (25 Mcg = 1000 Iu)] 2,000 unit PO DAILY atenoloL [Atenolol] 25 mg PO DAILY Diphenox-Atrop 2.5-0.025 mg [Lomotil] 1 tab PO 5XD PRN 3 Days #15 tablet PRN Reason: Diarrhea amLODIPine BESYLATE/BENAZEPRIL [Lotrel 5-10 MG] 1 cap PO DAILY Ondansetron Odt [Zofran Odt] 4 mg PO Q8HR PRN 3 Days #9 tab PRN Reason: Nausea HYDROcodone/APAP 10-325MG [[place] 10-325] 1 tab PO Q4HR PRN PRN Reason: Pain Butalb/Asprin/Caff 50-325-40Mg [Fiorinal 50-325-40 MG] 1 - 2 cap PO Q4HR PRN PRN Reason: Migraine Headache Aspirin 81 mg PO DAILY Discharge Medication List Atorvastatin [Lipitor] 40 mg PO HS 03/18/20 [History] Albuterol Inhaler [Ventolin Hfa Inhaler] 2 puff INHALATION RT-Q4H PRN 06/21/20 [History] Gabapentin [Neurontin] 100 mg PO TID 06/24/20 [History] Cholecalciferol [Vitamin D3 (25 Mcg = 1000 Iu)] 2,000 unit PO DAILY 07/26/20 [History] atenoloL [Atenolol] 25 mg PO DAILY 08/17/20 [History] Diphenox-Atrop 2.5-0.025 mg [Lomotil] 1 tab PO 5XD PRN 3 Days #15 tablet 08/22/20 [Rx] Ondansetron Odt [Zofran Odt] 4 mg PO Q8HR PRN 3 Days #9 tab 09/09/20 [Rx] amLODIPine BESYLATE/BENAZEPRIL [Lotrel 5-10 MG] 1 cap PO DAILY 09/09/20 [History] Aspirin 81 mg PO DAILY 09/22/20 [History] Butalb/Asprin/Caff 50-325-40Mg [Fiorinal 50-325-40 MG] 1 - 2 cap PO Q4HR PRN 09/22/20 [History] HYDROcodone/APAP 10-325MG [[place] 10-325] 1 tab PO Q4HR PRN 09/22/20 [History] Cyclobenzaprine [Flexeril] 10 mg PO HS #40 tab 10/04/20 [Rx] Gabapentin 300 mg PO TID #90 cap 10/04/20 [Rx] HYDROcodone/APAP 10-325MG [[place] 10-325] 1 - 2 tab PO Q4HR PRN #56 tab 10/04/20 [Rx] Polyethylene Glycol 3350 [Miralax] 17 gm PO DAILY PRN #527 gm 10/04/20 [Rx] Sennosides/Docusate Sodium [Senna Plus 8.6-50 mg Softgel] 1 each PO BID PRN #20 capsule 10/04/20 [Rx] Follow up Appointment(s)/Referral(s): [facility], [NON-STAFF] - 1 Week Bert Greenfield DO [Doctor of Osteopathic Medicine] - 10 Days Toi Chin [Primary Care Provider] - 3 Days Patient Instructions/Handouts: Posterior Lumbar Interbody Fusion (DC), Lumbar Spinal Fusion (DC), Lumbar Spinal Fusion (GEN) Activity/Diet/Wound Care/Special Instructions: Spine Discharge and Recovery Instructions Date of Surgery: 09/28/2020 Diagnosis: L2 to S1 pseudoarthrosis with proximal junctional failure Procedure: Revision fusion T10 to pelvis Medications: See list All medication refills should be obtained through your primary care doctor or your clinic spine surgeon. Please discuss prescription refills at your follow up appointment. Do not call the hospital for medication refills. Dressing: Leave your dressing in place for a total of 3 days post operatively. Then you may remove your dressing and leave open to air. Keep the area clean and if not able to keep area clean, then cover with sterile gauze and tape. Showering: You may shower 3 days after your procedure allowing soap and water to run over incision. Do not scrub. Do not soak. Blot dry. Follow up: Please confirm a follow up appointment with your surgeon 2 weeks post operatively. Please make an appointment to follow up with your PCP in 1-2 weeks after surgery for evaluation 3 phase, 3-week plan POST OP WEEKS 1-3 1. Lifting/carrying/pushing/pulling limited to less than 5 pounds. 2. Do not sit for longer than 15 minutes at one time. Get up and walk around. Prolonged sitting is NOT advised. If you lay down, see if you can tolerate laying down on you front (belly side) 3. Walk for periods of 15 minutes = 1 mile but no longer; do it multiple times times each day. 4.Ice your low back after activity. POST OP WEEKS 3-6 1. Lifting limited to less than 20 pounds. 2. Do not sit for longer than 30 minutes at a time. Frequently change positions. Use a sit-to stand workstation or take frequent breaks from sitting if you have returned to work. 3. Walk for 30 minutes each day. If possible, do these three or more times a day POST OP WEEKS 6+ At your 6-week appointment we will give you a physical therapy referral to focus on a core stabilization and strengthening program. You should also work on leg & buttock strengthening, hamstring & quadriceps stretching, and continue a low im pact aerobic activity program such as swimming, walking, or riding a stationary bicycle. During the initial 6 weeks after your surgery, you are at the highest risk of re-injuring your spine. You should generally avoid BLTs (bending, lifting and twisting combination motions) and follow the above guidelines to reduce the chance of reinjury. You can anticipate post op appointments in our office at approximately 3 weeks and 6 weeks after your surgery. INCISION CARE: If your incision is not draining you do NOT need to cover it with a dressing. Keep your incision clean, dry and intact. In most cases, we apply skin glue, tanisha or sutures to the incision at the time of surgery. This will be like a crust or have the appearance of a scab and will fall off in time on its own. The stitches or tanisha need to be removed at 3 weeks post op appointment. You may begin to shower 3 days after surgery (this allows the glue to crocker well). However, please avoid scrubbing the incision site or peeling off any of the skin glue. This will ensure optimal healing of your incision. Also, during this time avoid soaking the incision area in water - this includes swimming pools, hot tubs or baths. No ointments, lotions or oils on the incision until your surgeon allows. Leave tanisha, sutures or glue in place. Neurological dysfunction that comes on suddenly can also be a sign of a stroke. Below some common symptoms of a stroke are listed: B - balance difficulty such as sudden onset walking or leaning to one side - NEW E - eye problem such as sudden double vision or trouble seeing on one side - NEW F - Facial weakness or numbness on one side - NEW A - Arm or leg weakness or numbness on one side - NEW S - Slurred speech or difficulty with word finding - NEW T - Time is BRAIN! Call 911 as soon as you recognize these symptoms Diet: Consume a regular diet rich in vegetables and lean protein such as chicken or fish. You should consume in a ratio of approximately 20% fats|40% carbohydrates|40%protein. Vegetables, sweet potatoes, brown rice or quinoa are examples of good carbohydrates. Chips, white bread, cookies and sweets/sugar are examples of bad carbohydrates. Limit your bad carbs, go wild with good carbs. "Life's Simple 7" Guidelines as per [place] [employer] These will help you reclaim your life after surgery and helper/driver in your recovery, keeping in mind your restrictions. (1) Get Active. Physical activity can help people lose weight, control high blood pressure and cholesterol, feel emotionally better, and sleep better. (2) Control Cholesterol. Avoid a diet high in saturated fat, trans fat, & cholesterol. Limit whole milk & cream, ice cream, butter, egg yolks, processed meats (like sausage and hot dogs), and fatty meats. Choose healthy foods that are low in saturated fat, trans fat and cholesterol which include: Fruits and vegetables, fiber rich grain products (like whole grain pasta and brown rice), lean meat such as chicken, fish, nuts, seeds, and legumes. (3) Eat Better. Eat small portions. Shop at the grocery with a list and do not stray from it. Tips for a healthy diet include: Limit sodium intake to less than 1500mg daily, avoid prepackaged, processed, and fast foods, choose a diet rich in fruits, vegetables, and whole grain, high fiber foods, and limit saturated & cholesterol in your diet. (4) Manage Blood Pressure. If you have high blood pressure, you should have a cuff at home so that you can check your blood pressure regularly. Be sure you have a good cuff. An arm one is generally better than a wrist one. Bring the cuff to a doctor's appointment to validate that the measurements that your cuff are taking are accurate. Take your blood pressure twice daily when you are sitting down and relaxing. Record the numbers in a log and bring this log with you to your doctors' appointments. (5) Lose Weight if your BMI is above 25. A healthy BMI is between 19-25. To calculate Your BMI, you may use a Standard BMI Calculator on the NIH BMI website: <www.nhlbi.nih.gov/guidelines/obesity/BMI/bmicalc.htm>. Weigh oneself daily. If you are overweight, set a goal to lose weight. A pound a week loss if needed is a good target. (6) Reduce Blood Sugar. Limit foods and liquids with "added sugars." (Added sugars include sucrose, fructose, glucose, maltose, dextrose, high fructose corn syrup, corn syrup, concentrated fruit juice and honey). (7) Stop Smoking. If you smoke, quitting smoking is one of the best things that you can do for your health. Smoking increases your risk of heart attack, s troke, and peripheral vascular disease, which is a build-up of plaque in your arteries. Please discard all the cigarettes and lighters in your house. Have a plan for what you will do when you have the urge to smoke. Direct and second- hand smoke shortens your life as well as the lives of your family, friends and others around you. For your health and the health of those around you, please consider quitting! Proper Bending Body Mechanics: Maintain a wide stance with one foot slightly in front of the other. Keep your back straight. Bend utilizing the strength in your hips and knees. Do not bend at the waist. Maintain the lifted object at your waist-level close to your body. Avoid lifting weight that causes immediately pain or pain anywhere in the body afterwards. Smoking/Nicotine If there was ever one thing that you could do to increase your overall health, decrease your risk of cardiovascular problems by about 39% the second you make the choice, it is to STOP SMOKING. Your body's most instant gratification is the second you stop smoking. We have all heard the studies, read the articles but it is true, smoking is extremely bad for your overall health, and moreover it is detrimental to your bone health. Nicotine, IN ANY FORM, kills bone cells, prevents your body from healing fractures, and significantly prolongs healing after surgery. In spine surgery specifically, it increases your risk of not healing your bones to create a fusion and increases your risk of having a revision surgery due to this up to 60%. I know it is hard. I know it feels impossible. But there are ways. Take control of your life. We are here to help you through it. And when you are ready, ask us and we can direct you to help if you desire. Use the START Plan to Quit Smoking (please visit the Helpguide.org website listed below for more information): S = Set a quit date. Choose a date within the next 2 weeks, so you have enough time to prepare without losing your motivation to quit. If you mainly smoke at work, quit on the weekend, so you have a few days to adjust to the change. T = Tell family, friends, and co-workers that you plan to quit. Let your friends and family in on your plan to quit smoking and tell them you need their support and encouragement to stop. Look for a quit hannah who wants to stop smoking as well. You can help each other get through the rough times. A = Anticipate and plan for the challenges you'll face while quitting. Most people who begin smoking again do so within the first 3 months. You can help yourself make it through by preparing ahead for common challenges, such as nicotine withdrawal and cigarette cravings. R = Remove cigarettes and other tobacco products from your home, car, and work. Throw away all your cigarettes (no emergency pack!), lighters, ashtrays, and matches. Wash your clothes and freshen up anything that smells like smoke. Shampoo your car, clean your drapes and carpet, and steam your furniture. T = Talk to your doctor about getting help to quit. Your doctor can prescribe medication to help with withdrawal and suggest other alternatives. If you can't see a doctor, you can get many products over the counter at your local pharmacy or grocery store, including the nicotine patch, nicotine lozenges, and nicotine gum. Resources for Quitting Smoking: <https://www.[place].gov/documents/[facility]/Quit_Tobacco_Resources_for_patients_313 480_7.pdf> Supplementation: Take recommended dosages of Vitamin D and Calcium to help fortify your bones and help them to heal. See your health maintenance packet for dosages and recommended levels. DVT/VTE prophylaxis: You will be given compression stockings from the hospital. Wear these daily for the first two weeks after surgery. You may take them off at night. You may be prescribed a medication to help thin your blood. Take this as directed. If you are not prescribed this medication, early and frequent ambulation has been shown to be the best prophylaxis to deep vein thrombosis and sequelae related to this event. Discharge Disposition: HOME WITH HOME HEALTH SERVICES
[2020-10-04] MEDS: atenoloL 25 MG TAB PO SCH (08:29)
[2020-10-04] MEDS: DOCUSATE 100 MG CAP PO SCH (08:29)
[2020-10-04] MEDS: ENOXAPARIN 30 MG/0.3 ML SYRINGE SQ SCH (08:29)
[2020-10-04] MEDS: polyethylene glycoL 3350 17 GM POWD.PACK PO SCH (08:29)
[2020-10-04] MEDS: GABAPENTIN 300 MG CAP PO SCH (08:29)
[2020-10-04] MEDS: CHOLECALCIFEROL 25 MCG (1000 IU) TABLET PO SCH (08:29)
[2020-10-04] MEDS ORDERED: VANCOMYCIN TROUGH DUE 1 EACH MISC MISCELLANE ONE (13:00)
--- NOTE | 2020-10-04 18:23 | P.PN ---
Subjective Progress Note Date: 10/04/20 (delayed charting seen at 0930) Principal diagnosis: back pain Patient is a 64-year-old female with COPD, dyslipidemia, and osteoarthritis who presented for elective laminectomy. She had an uncomplicated postoperative course with marked pain. Patient seen and examined at bedside. Her pain is slightly better today. She prefers the Dilaudid over to Percocet but is still giving him Percocet a chance to work. Her constipation is present but it is improving. Denies any chest pain, shortness breath, nausea, or vomiting. She will be staying with her niece on discharge from the hospital for help. General: non toxic, no distress, appears older than stated age Derm: warm, dry Head: atraumatic, normocephalic, symmetric Eyes: EOMI, no lid lag, anicteric sclera Mouth: no lip lesion, mucus membranes moist Cardiovascular: S1S2 reg, no murmur, positive posterior tibial pulse bilateral, Lungs: Decreased breath sounds bilateral, no rhonchi, no rales , no accessory muscle use Abdominal: soft, nontender to palpation, no guarding, no appreciable organomegaly Ext: no gross muscle atrophy, no edema, no contractures Neuro: CN II-XI grossly intact, no focal neuro deficits Psych: Alert, oriented, appropriate affect Patient is 64-year-old female status post decompression with interbody fusion COPD without exacerbation -Resume home inhaler regimen on discharge GERD with esophagitis -PPI Hypertension, controlled -Resume all home blood pressure medications Constipation -All regiment Dyslipidemia -Statin Medically optimized for discharge. Follow-up with Dr. Chin in 2-3 days. Medication reconciliation addressed. Objective - Vital Signs Vital signs: Vital Signs Temp 98.4 F 10/04/20 04:27 Pulse 86 10/04/20 04:27 Resp 18 10/04/20 04:27 BP 124/82 10/04/20 04:27 Pulse Ox 96 10/04/20 04:27 Intake & Output 10/03/20 10/04/20 10/04/20 18:59 06:59 18:59 Intake Total 1650 900 Balance 1650 900 Weight 51.7 kg Intake: Intake, IV Titration 1050 900 Amount 0.9% NaCl with KCl 20 Meq 800 900 /l 1,000 ml @ 100 mls/hr IV .Q10H [facility] Rx#: [id number] Vancomycin 1,000 mg In 250 Sodium Chloride 0.9% 250 ml @ 125 mls/hr IVPB Q12H [facility] Rx#:[id number] Oral 600 Other: Voiding Method Diaper Diaper Diaper Incontinent Incontinent Incontinent # Voids 3 2 # Bowel Movements 2 ABP, PAP, CO, CI - Last Documented Arterial Blood Pressure 115/60 - Labs CBC & Chem 7: 10/02/20 05:10 10/03/20 05:08
--- NOTE | 2020-10-05 14:47 | CDI ---
Documentation Clarification Form Date: 10/05/2020 02:44:00 PM From: Sulma Negron CCS Phone: If you have a question about this query, please contact Marita Esteban [employer] Technical Lead at [phone] between 8am and 5pm Admit Date: 09/28/2020 05:53:00 AM Patient Name: Domi Jenkins Visit Number: [id number] Discharge Date: 10/04/2020 12:20:00 PM ATTENTION: The Clinical Documentation Specialists (CDI) and [facility] Coding Staff appreciate your assistance in clarifying documentation. Please respond to the clarification below the line at the bottom and electronically sign. The CDI & [facility] Coding staff will review the response and follow-up if needed. Please note: Queries are made part of the Legal Health Record. If you have any questions, please contact the author of this message via ITS. Dr. Bert Greenfield Patient has been described as: Underweight, Mild temporal and clavicle muscle wasting History/Risk Factors: Pseudoarthrosis, Chronic pancreatitis, COPD, HTN, GERD, Tobacco Clinical Indicators: BMI 17.8, Underweight, Patients weight is 51.7 kg Patients height is 5ft 7 in Calculated BMI is 178 Muscle wasting: Mild temporal and clavicle muscle wasting Treatments: Commercial beverage, Increase PO intake from 50%-75%, Monitor PO Nutritional Education: General healthful diet Dietary Consult: 09/30, 10/04 In order to capture the severity of condition associated with patient BMI of 17.8, a clinical diagnosis needs to be documented by the physician. Please clarify: Cachexia Underweight Malnutrition Mild Moderate Severe Other Unable to determine Underweight MTDD
--- NOTE | 2020-10-05 14:54 | CDI ---
Documentation Clarification Form Date: 10/05/2020 02:53:00 PM From: Sulma Negron CCS Phone: If you have a question about this query, please contact Marita Esteban Sales Promotion Manager at [phone] between 8am and 5pm Admit Date: 09/28/2020 05:53:00 AM Patient Name: Domi Jenkins Visit Number: [id number] Discharge Date: 10/04/2020 12:20:00 PM ATTENTION: The Clinical Documentation Specialists (CDI) and [facility] Coding Staff appreciate your assistance in clarifying documentation. Please respond to the clarification below the line at the bottom and electronically sign. The CDI & [facility] Coding staff will review the response and follow-up if needed. Please note: Queries are made part of the Legal Health Record. If you have any questions, please contact the author of this message via ITS. Dr. Bert Greenfield Documentation states: Hemoglobin is trending downwards and a 7 this morning.She will be transfused 1 unit of PRBCs History/Risk Factors: S/P Fusion, HTN, Tobacco, Lumbar fx, COPD, Chronic pancreatitis Clinical indicators: Significant drop in Hgb/Hct, EBL 1,000 ml Abnormal: Hgb 9.5, 8.4, 7.0- Hct 30.1, 26.7, 22.1 Treatment: Transfusion RBC Clinical significance of diagnostic testing and treatment CANNOT be assumed or coded without physician documentation of significance if any. Please clarify what abnormal laboratory signifies: Acute blood loss anemia Anemia due to Disease process, please specify Abnormal Lab Value Unable to determine Other, please specify Acute blood loss anemia, expected, post op MTDD
== END 2020-10-04 12:20 | disposition home health service (06) | DRG 454 ==
LOC: 2ORMAIN 05:53 → 2SICU 18:49 → 5NMEDONC 09-29 10:49
PROVIDERS: ADMIT Orthopaedic Surgery; ATTEND Orthopaedic Surgery
PROC: 0SG00AJ Fusion of Lumbar Vertebral Joint with Interbody Fusion Device, Posterior Approach, Anterior Column, Open Approach (ICD-10-PCS; 2020-09-28)
PROC: 0RG7071 Fusion of 2 to 7 Thoracic Vertebral Joints with Autologous Tissue Substitute, Posterior Approach, Posterior Column, Open Approach (ICD-10-PCS; 2020-09-28)
PROC: 0SG1071 Fusion of 2 or more Lumbar Vertebral Joints with Autologous Tissue Substitute, Posterior Approach, Posterior Column, Open Approach (ICD-10-PCS; 2020-09-28)
PROC: 0SG3071 Fusion of Lumbosacral Joint with Autologous Tissue Substitute, Posterior Approach, Posterior Column, Open Approach (ICD-10-PCS; 2020-09-28)
PROC: 0QS004Z Reposition Lumbar Vertebra with Internal Fixation Device, Open Approach (ICD-10-PCS; 2020-09-28)
PROC: 0SP30AZ Removal of Interbody Fusion Device from Lumbosacral Joint, Open Approach (ICD-10-PCS; 2020-09-28)
PROC: 30233N1 Transfusion of Nonautologous Red Blood Cells into Peripheral Vein, Percutaneous Approach (ICD-10-PCS; 2020-09-28)
PROC: 0RGA071 Fusion of Thoracolumbar Vertebral Joint with Autologous Tissue Substitute, Posterior Approach, Posterior Column, Open Approach (ICD-10-PCS; principal; 2020-09-28 07:30)
DX: M96.0 Pseudarthrosis after fusion or arthrodesis (principal); K86.1 Other chronic pancreatitis; S32.029A Unspecified fracture of second lumbar vertebra, initial encounter for closed fracture; D62 Acute posthemorrhagic anemia; I69.354 Hemiplegia and hemiparesis following cerebral infarction affecting left non-dominant side; J98.11 Atelectasis; Z68.1 Body mass index [BMI] 19.9 or less, adult; J44.9 Chronic obstructive pulmonary disease, unspecified; E78.5 Hyperlipidemia, unspecified; I10 Essential (primary) hypertension; G43.909 Migraine, unspecified, not intractable, without status migrainosus; K44.9 Diaphragmatic hernia without obstruction or gangrene; F17.210 Nicotine dependence, cigarettes, uncomplicated; M47.9 Spondylosis, unspecified; K21.00 Gastro-esophageal reflux disease with esophagitis, without bleeding; G89.29 Other chronic pain; R32 Unspecified urinary incontinence; K59.00 Constipation, unspecified; R63.6 Underweight; M48.061 Spinal stenosis, lumbar region without neurogenic claudication; Y83.8 Other surgical procedures as the cause of abnormal reaction of the patient, or of later complication, without mention of misadventure at the time of the procedure; Z71.3 Dietary counseling and surveillance; Z71.6 Tobacco abuse counseling; Z79.899 Other long term (current) drug therapy; Z79.82 Long term (current) use of aspirin; Z90.49 Acquired absence of other specified parts of digestive tract; Z90.721 Acquired absence of ovaries, unilateral; Z98.890 Other specified postprocedural states; Z80.0 Family history of malignant neoplasm of digestive organs; Z82.3 Family history of stroke; Z80.3 Family history of malignant neoplasm of breast
CPT/HCPCS: 72100; 72128; 72131; 80048; 80202; 82565; 85025; 86850; 86891; 86900; 86901; 86920

== ENCOUNTER 2020-12-07 10:49 | Emergency (ER) | payer BC ==
[2020-12-07 12:02] VITALS: TEMP 98.4
[2020-12-07] MEDS ORDERED: MORPHINE SULFATE 4 MG/ML SYRINGE IVP STA (15:50)
[2020-12-07] MEDS ORDERED: ONDANSETRON 4 MG/2 ML VIAL IVP STA (15:50)
[2020-12-07] MEDS ORDERED: SODIUM CHLORIDE 0.9% 1,000 ML IV ONE (15:50)
[2020-12-07 16:10] LABS: Anisocytosis Slight; Basophils % (A) 0 %; Eosinophils # (A) 0.1 k/uL (0-0.7); Eosinophils % (A) 2 %; HCT 40.8 % (34.0-46.0); Lymphocytes # (A) 1.5 k/uL (1.0-4.8); Lymphocytes % (A) 24 %; MCHC 32.3 g/dL (31.0-37.0); Monocytes # (A) 0.3 k/uL (0-1.0); Monocytes % (A) 5 %; Neutrophils # (A) 4.3 k/uL (1.3-7.7); Neutrophils % (A) 68 %; Platelet Count 551 k/uL (150-450); RBC 5.07 m/uL (3.80-5.40); RDW 16.2 % (11.5-15.5); WBC 6.2 k/uL (3.8-10.6)
[2020-12-07 16:13] LABS: HGB 13.2 gm/dL (11.4-16.0); MCV 80.5 fL (80.0-100.0)
[2020-12-07 16:22] VITALS: RESP 16
[2020-12-07 16:22] LABS: Albumin 5.3 g/dL (3.5-5.0); Total Bilirubin 0.5 mg/dL (0.2-1.3); Total Protein 9.1 g/dL (6.3-8.2)
[2020-12-07 16:49] LABS: Appearance,Urine Cloudy (Clear); Bilirubin,Urine Negative (Negative); Blood,Urine Moderate (Negative); Color,Urine Yellow; Glucose,Urine (UA) Negative (Negative); Hyaline Casts,Urine 16 /lpf (0-2); Ketones,Urine 1+ (Negative); Leukocyte Esterase,Urine Negative (Negative); Mucus,Urine Few /hpf; Nitrite,Urine Negative (Negative); PH, Urine 5.5 (5.0-8.0); Protein,Urine 2+ (Negative); RBC,Urine 14 /hpf (0-5); Specific Gravity,Urine 1.032 (1.001-1.035); Squamous Epithelial Cell,Urine 3 /hpf (0-4); WBC,Urine 2 /hpf (0-5)
--- NOTE | 2020-12-07 17:02 | CT ---
EXAMINATION TYPE: CT abdomen pelvis w con DATE OF EXAM: 12/07/2020 COMPARISON: 08/17/2020 HISTORY: epigastric pain, pancreatitis CT DLP: 883 mGycm CONTRAST: CT scan of the abdomen and pelvis is performed without Oral Contrast and with IV Contrast, patient in jected with 100 mL of Isovue 300. FINDINGS: LUNG BASES-: No visible nodule. No infiltrate. LIVER/GB: The gallbladder is surgically absent. No space occupying hepatic lesion. Biliary tree is of normal caliber. PANCREAS: No inflammation. No distinct mass. Pancreatic calcifications compatible with chronic panc reatitis. SPLEEN: No splenic enlargement. No lesion seen. ADRENALS: No nodule. No thickening. KIDNEYS/BLADDER: No hydronephrosis. No nephrolithiasis. No distinct renal mass. Urinary bladder g rossly unremarkable. BOWEL: Normal appendix. Fluid distended small and large bowel may be related to enterocolitis. Amelia elate clinically. GENITAL ORGANS: No gross abnormality. LYMPH NODES: No greater than 1cm abdominal or pelvic lymph nodes are appreciated. AORTA: No significant abnormality. OSSEOUS STRUCTURES: Extensive postsurgical change lumbar spine with pedicular screws in place. OTHER: No significant additional abnormality is seen. IMPRESSION: 1. Fluid distended small and large bowel may be related to enterocolitis. Correlate clinically. 2. Changes of chronic pancreatitis without definite evidence for acute pancreatitis by CT.
--- NOTE | 2020-12-07 17:15 | ED ---
Abdominal Pain HPI - General Chief Complaint: Abdominal Pain Stated Complaint: abd pain/vomiting Time Seen by Provider: 12/07/20 15:32 Source: patient Mode of arrival: wheelchair Limitations: no limitations - History of Present Illness Initial Comments: Is a 65-year-old female to history of chronic back pain and chronic pancreatitis who presents emergent department for abdominal pain, nausea, vomiting, diarrhea. The patient states her symptoms began 2 or 3 days ago. She states that she has been having trouble keeping anything down. She can emergency department today because she was concerned that she may be having worsening of her pancreatitis. She denies any fevers or chills. No cough or shortness of breath. No dysuria or hematuria. States that she's been urinating a little bit less. No other acute complaints. - Related Data Home Medications Medication Instructions Recorded Confirmed Atorvastatin [Lipitor] 40 mg PO HS 03/18/20 11/17/20 Albuterol Inhaler [Ventolin Hfa 2 puff INHALATION RT-Q4H PRN 06/21/20 11/17/20 Inhaler] Gabapentin [Neurontin] 100 mg PO TID 06/24/20 11/17/20 Cholecalciferol [Vitamin D3 (25 2,000 unit PO DAILY 07/26/20 11/17/20 Mcg = 1000 Iu)] atenoloL [Atenolol] 25 mg PO DAILY 08/17/20 11/17/20 amLODIPine BESYLATE/BENAZEPRIL 1 cap PO DAILY 09/09/20 11/17/20 [Lotrel 5-10 MG] Aspirin 81 mg PO DAILY 09/22/20 11/17/20 HYDROcodone/APAP 10-325MG [[place] 1 tab PO Q4HR PRN 09/22/20 11/17/20 10-325] Previous Rx's Medication Instructions Recorded Ondansetron Odt [Zofran ODT] 4 mg PO Q8HR PRN 3 Days #9 tab 09/09/20 Cyclobenzaprine [Flexeril] 10 mg PO HS #40 tab 10/04/20 Gabapentin 300 mg PO TID #90 cap 10/04/20 HYDROcodone/APAP 10-325MG [[place] 1 - 2 tab PO Q4HR PRN #56 tab 10/04/20 10-325] Polyethylene Glycol 3350 [Miralax] 17 gm PO DAILY PRN #527 gm 10/04/20 Sennosides/Docusate Sodium [Senna 1 each PO BID PRN #20 capsule 10/04/20 Plus 8.6-50 mg Softgel] Dicyclomine [Bentyl] 10 mg PO QID PRN #20 capsule 12/07/20 HYDROcodone/APAP 10-325MG [[place] 1 tab PO Q6HR PRN 3 Days #8 tab 12/07/20 10-325] Ondansetron Odt [Zofran Odt] 4 mg PO Q8HR PRN #9 tab 12/07/20 Allergies Allergy/AdvReac Type Severity Reaction Status Date / Time No Known Allergies Allergy Verified 11/17/20 15:35 Review of Systems ROS Statement: Those systems with pertinent positive or pertinent negative responses have been documented in the HPI. ROS Other: All systems not noted in ROS Statement are negative. 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/hx fx l2, hx anemia, pancreatits History of Any Multi-Drug Resistant Organisms: None Reported Past Surgical History: Appendectomy, Back Surgery, Cholecystectomy, Orthopedic Surgery, Tonsillectomy Additional Past Surgical History / Comment(s): Pancreatic stents-since removed, 6 back surgeries with 2 fusions, right oophorectomy due to ectopic , EGD/colonoscopy, right leg alice inserted d/t fracture, BACK SURGERY-REMOVED OLD HARDWARE AND PUT IN NEW HARDWARE 09/28/20 Past Anesthesia/Blood Transfusion Reactions: No Reported Reaction Additional Past Anesthesia/Blood Transfusion Reaction / Comment(s): DIFF IV STARTS, Pt has received blood in past without reaction. Past Psychological History: No Psychological Hx Reported Smoking Status: Former smoker Past Alcohol Use History: None Reported Past Drug Use History: None Reported - Past Family History Father Family Medical History: Cancer Mother Family Medical History: Cancer, CVA/TIA Additional Family Medical History / Comment(s): breast and colon cancer. General Exam - General Exam Comments Initial Comments: Constitutional: Awake alert Appears comfortable Head: Normocephalic atraumatic Eyes: no conjunctival injection No scleral icterus EOMI Neck: No JVD Supple Heart: Regular rate rhythm normal S1-S2 no murmurs Lungs: Clear to auscultation bilaterally No wheezing No rales Abdomen: Soft nondistended and are in the epigastric region without any rebound or guarding Extremities: Non edematous DP pulses intact Radial pulses intact Neuro: A&Ox3 No focal neurologic deficits Psych: Appropriate mood and affect Limitations: no limitations Course Vital Signs 12/07/20 12/07/20 12:00 16:21 Temperature 98.4 F Pulse Rate 105 H 82 Respiratory 20 16 Rate Blood Pressure 133/88 145/83 O2 Sat by Pulse 100 99 Oximetry Medical Decision Making - Medical Decision Making Is a 65-year-old female who presents emergency department for abdominal pain, nausea, vomiting, diarrhea. The patient has computed tomography scan that did not show any evidence for pancreatitis. Lipase was normal. The CT did show evidence for enterocolitis. The patient's symptoms were much improved after medications emergency department. The patient was told that she is to hydrate at home. Going to give her Zofran, Bentyl, and a couple of days worth of her home dose of [place]. Return to emergency room she has worsening or changing symptoms. All cautions were answered. - Lab Data Result diagrams: 12/07/20 16:04 12/07/20 16:04 Lab Results 12/07/20 12/07/20 12/07/20 Range/Units 16:04 16:04 16:34 WBC 6.2 (3.8-10.6) k/uL RBC 5.07 (3.80-5.40) m/uL Hgb 13.2 D (11.4-16.0) gm/dL Hct 40.8 (34.0-46.0) % MCV 80.5 D (80.0-100.0) fL MCH 26.0 (25.0-35.0) pg MCHC 32.3 (31.0-37.0) g/dL RDW 16.2 H (11.5-15.5) % Plt Count 551 H (150-450) k/uL MPV 7.0 Neutrophils % 68 % Lymphocytes % 24 % Monocytes % 5 % Eosinophils % 2 % Basophils % 0 % Neutrophils # 4.3 (1.3-7.7) k/uL Lymphocytes # 1.5 (1.0-4.8) k/uL Monocytes # 0.3 (0-1.0) k/uL Eosinophils # 0.1 (0-0.7) k/uL Basophils # 0.0 (0-0.2) k/uL Anisocytosis Slight Sodium 142 (137-145) mmol/L Potassium 4.0 (3.5-5.1) mmol/L Chloride 104 (98-107) mmol/L Carbon Dioxide 24 (22-30) mmol/L Anion Gap 14 mmol/L BUN 14 (7-17) mg/dL Creatinine 0.85 (0.52-1.04) mg/dL Est GFR (CKD-EPI)AfAm 84 (>60 ml/min/1.73 sqM) Est GFR (CKD-EPI)NonAf 72 (>60 ml/min/1.73 sqM) Glucose 134 H (74-99) mg/dL Calcium 11.0 H (8.4-10.2) mg/dL Total Bilirubin 0.5 (0.2-1.3) mg/dL AST 22 (14-36) U/L ALT 10 (4-34) U/L Alkaline Phosphatase 119 (38-126) U/L Total Protein 9.1 H (6.3-8.2) g/dL Albumin 5.3 H (3.5-5.0) g/dL Amylase 53 (30-110) U/L Lipase 110 (23-300) U/L Urine Color Yellow Urine Appearance Cloudy H (Clear) Urine pH 5.5 (5.0-8.0) Ur Specific [place] 1.032 (1.001-1.035) Urine Protein 2+ H (Negative) Urine Glucose (UA) Negative (Negative) Urine Ketones 1+ H (Negative) Urine Blood Moderate H (Negative) Urine Nitrite Negative (Negative) Urine Bilirubin Negative (Negative) Urine Urobilinogen 2.0 (<2.0) mg/dL Ur Leukocyte Esterase Negative (Negative) Urine RBC 14 H (0-5) /hpf Urine WBC 2 (0-5) /hpf Ur Squamous Epith Cells 3 (0-4) /hpf Hyaline Casts 16 H (0-2) /lpf Urine Mucus Few H (None) /hpf Disposition Clinical Impression: Enterocolitis Disposition: HOME SELF-CARE Condition: Stable Prescriptions: Dicyclomine [Bentyl] 10 mg PO QID PRN #20 capsule PRN Reason: Pain HYDROcodone/APAP 10-325MG [[place] 10-325] 1 tab PO Q6HR PRN 3 Days #8 tab PRN Reason: Pain Ondansetron Odt [Zofran Odt] 4 mg PO Q8HR PRN #9 tab PRN Reason: Nausea Is patient prescribed a controlled substance at d/c from ED?: Yes When asked, does pt state using other controlled substances?: No If prescribed controlled substance>3 days was MAPS reviewed?: Prescribed <3 Days If opioid is for acute pain is fill amount 7 days or less?: Yes Referrals: Toi Chin [Primary Care Provider] - 1-2 days
[2020-12-07 17:55] VITALS: BP 138/84; PULSE 93
== END 2020-12-07 18:00 | disposition home or self-care (01) ==
LOC: EC 10:49
DX: K52.9 Noninfective gastroenteritis and colitis, unspecified (principal); J44.9 Chronic obstructive pulmonary disease, unspecified; I10 Essential (primary) hypertension; M19.90 Unspecified osteoarthritis, unspecified site; Z79.82 Long term (current) use of aspirin; Z79.899 Other long term (current) drug therapy; Z87.891 Personal history of nicotine dependence; Z86.73 Personal history of transient ischemic attack (TIA), and cerebral infarction without residual deficits; Z90.49 Acquired absence of other specified parts of digestive tract; Z90.89 Acquired absence of other organs; Z98.1 Arthrodesis status
CPT/HCPCS: 36415; 80053; 82150; 83690; 85025; 81001; 74177; 99284; 96374; 96375; 96361 ×2; J2270; J2405; Q9967

== ENCOUNTER 2020-12-11 08:29 | Emergency (ER) | payer BC ==
[2020-12-11] MEDS ORDERED: SODIUM CHLORIDE 0.9% 1,000 ML IV STA (08:40)
[2020-12-11] MEDS ORDERED: ONDANSETRON 4 MG/2 ML VIAL IVP STA (08:40)
--- NOTE | 2020-12-11 08:46 | ED ---
General Adult HPI - General Stated complaint: nausea Time Seen by Provider: 12/11/20 08:30 Source: patient, RN notes reviewed, old records reviewed - History of Present Illness Initial comments: This is a 65-year-old female presents emergency department with past medical history significant for pancreatitis. Patient states she's been having epigastric abdominal pain radiating to the back which feels like her previous pancreatic head. Patient states been vomiting for a week. Patient states she's not tolerating fluids or food at this time. Patient denies any chest pain difficulty chest breath. Patient is a fever chills or cough. Patient denies any lower abdominal pain. Patient denies any dysuria hematuria urinary fr equency. Patient denies headache patient denies numbness weakness - Related Data Home Medications Medication Instructions Recorded Confirmed Atorvastatin [Lipitor] 40 mg PO HS 03/18/20 11/17/20 Albuterol Inhaler [Ventolin Hfa 2 puff INHALATION RT-Q4H PRN 06/21/20 11/17/20 Inhaler] Gabapentin [Neurontin] 100 mg PO TID 06/24/20 11/17/20 Cholecalciferol [Vitamin D3 (25 2,000 unit PO DAILY 07/26/20 11/17/20 Mcg = 1000 Iu)] atenoloL [Atenolol] 25 mg PO DAILY 08/17/20 11/17/20 amLODIPine BESYLATE/BENAZEPRIL 1 cap PO DAILY 09/09/20 11/17/20 [Lotrel 5-10 MG] Aspirin 81 mg PO DAILY 09/22/20 11/17/20 Previous Rx's Medication Instructions Recorded Cyclobenzaprine [Flexeril] 10 mg PO HS #40 tab 10/04/20 Gabapentin 300 mg PO TID #90 cap 10/04/20 Polyethylene Glycol 3350 [Miralax] 17 gm PO DAILY PRN #527 gm 10/04/20 Sennosides/Docusate Sodium [Senna 1 each PO BID PRN #20 capsule 10/04/20 Plus 8.6-50 mg Softgel] Dicyclomine [Bentyl] 10 mg PO QID PRN #20 capsule 12/07/20 HYDROcodone/APAP 10-325MG [[place] 1 tab PO Q6HR PRN 3 Days #8 tab 12/07/20 10-325] Ondansetron Odt [Zofran Odt] 4 mg PO Q8HR PRN #9 tab 12/07/20 Allergies Allergy/AdvReac Type Severity Reaction Status Date / Time No Known Allergies Allergy Verified 12/11/20 08:51 Review of Systems ROS Statement: Those systems with pertinent positive or pertinent negative responses have been documented in the HPI. ROS Other: All systems not noted in ROS Statement are negative. 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/hx fx l2, hx anemia, pancreatits History of Any Multi-Drug Resistant Organisms: None Reported Past Surgical History: Appendectomy, Back Surgery, Cholecystectomy, Orthopedic Surgery, Tonsillectomy Additional Past Surgical History / Comment(s): Pancreatic stents-since removed, 6 back surgeries with 2 fusions, right oophorectomy due to ectopic , EGD/colonoscopy, right leg alice inserted d/t fracture, BACK SURGERY-REMOVED OLD HARDWARE AND PUT IN NEW HARDWARE 09/28/20 Past Anesthesia/Blood Transfusion Reactions: No Reported Reaction Additional Past Anesthesia/Blood Transfusion Reaction / Comment(s): DIFF IV STARTS, Pt has received blood in past without reaction. Past Psychological History: No Psychological Hx Reported Smoking Status: Former smoker Past Alcohol Use History: None Reported Past Drug Use History: None Reported - Past Family History Father Family Medical History: Cancer Mother Family Medical History: Cancer, CVA/TIA Additional Family Medical History / Comment(s): breast and colon cancer. General Exam - General Exam Comments Initial Comments: GENERAL: Patient is well-developed and well-nourished. Patient is nontoxic and well- hydrated and is in mild distress. ENT: Neck is soft and supple. No significant lymphadenopathy is noted. Oropharynx is clear. Moist mucous membranes. Neck has full range of motion without eliciting any pain. EYES: The sclera were anicteric and conjunctiva were pink and moist. Extraocular movements were intact and pupils were equal round and reactive to light. Eyelids were unremarkable. PULMONARY: Unlabored respirations. Good breath sounds bilaterally. No audible rales rhonchi or wheezing was noted. CARDIOVASCULAR: There is a regular rate and rhythm without any murmurs gallops or rubs. Femoral pulses are equal bilaterally ABDOMEN: Patient is epigastric abdominal pain SKIN: Skin is clear with no lesions or rashes and otherwise unremarkable. NEUROLOGIC: Patient is alert and oriented x3. Cranial nerves II through XII are grossly intact. Motor and sensory are also intact. Normal speech, volume and content. Symmetrical smile. MUSCULOSKELETAL: Normal extremities with adequate strength and full range of motion. No lower extremity swelling or edema. No calf tenderness. LYMPHATICS: No significant lymphadenopathy is noted PSYCHIATRIC: Normal psychiatric evaluation. Course Vital Signs 12/11/20 08:50 Temperature 99.2 F Pulse Rate 94 Respiratory 18 Rate Blood Pressure 148/104 O2 Sat by Pulse 94 L Oximetry Medical Decision Making - Medical Decision Making Patient was resting comfortably while in the emergency department. Patient received 0.5 Dilaudid for comfort. EKG shows sinus rhythm with PACs at 77 bpm AL interval is 150 QRS 72 QT interval is 428 QTC is 44. Patient's EKG shows no ST segment elevation or depression. - Lab Data Result diagrams: 12/11/20 09:28 12/11/20 09:28 Lab Results 12/11/20 12/11/20 Range/Units 09:28 09:28 WBC 5.7 (3.8-10.6) k/uL RBC 4.72 (3.80-5.40) m/uL Hgb 12.1 (11.4-16.0) gm/dL Hct 38.1 (34.0-46.0) % MCV 80.7 (80.0-100.0) fL MCH 25.7 (25.0-35.0) pg MCHC 31.8 (31.0-37.0) g/dL RDW 16.3 H (11.5-15.5) % Plt Count 400 (150-450) k/uL MPV 7.7 Neutrophils % 66 % Lymphocytes % 24 % Monocytes % 6 % Eosinophils % 2 % Basophils % 1 % Neutrophils # 3.8 (1.3-7.7) k/uL Lymphocytes # 1.4 (1.0-4.8) k/uL Monocytes # 0.3 (0-1.0) k/uL Eosinophils # 0.1 (0-0.7) k/uL Basophils # 0.0 (0-0.2) k/uL Hypochromasia Slight Anisocytosis Slight Sodium 139 (137-145) mmol/L Potassium 3.6 (3.5-5.1) mmol/L Chloride 109 H (98-107) mmol/L Carbon Dioxide 21 L (22-30) mmol/L Anion Gap 9 mmol/L BUN 10 (7-17) mg/dL Creatinine 0.62 (0.52-1.04) mg/dL Est GFR (CKD-EPI)AfAm >90 (>60 ml/min/1.73 sqM) Est GFR (CKD-EPI)NonAf >90 (>60 ml/min/1.73 sqM) Glucose 129 H (74-99) mg/dL Calcium 9.8 (8.4-10.2) mg/dL Total Bilirubin 0.4 (0.2-1.3) mg/dL AST 20 (14-36) U/L ALT 8 (4-34) U/L Alkaline Phosphatase 79 (38-126) U/L Total Protein 7.5 (6.3-8.2) g/dL Albumin 4.3 (3.5-5.0) g/dL Amylase 47 (30-110) U/L Lipase 96 (23-300) U/L Disposition Clinical Impression: Abdominal pain Disposition: HOME SELF-CARE Instructions (If sedation given, give patient instructions): Abdominal Pain (ED) Is patient prescribed a controlled substance at d/c from ED?: No Referrals: Toi Chin [Primary Care Provider] - 1-2 days Time of Disposition: 10:00
[2020-12-11 08:51] VITALS: RESP 18
[2020-12-11] MEDS ORDERED: KETOROLAC 15 MG/ML 1 ML VIAL IVP STA (09:09)
[2020-12-11] MEDS ORDERED: KETOROLAC 15 MG/ML 1 ML VIAL ONE (09:10)
[2020-12-11] MEDS ORDERED: HYDROmorphone 0.5 MG/0.5 ML SYRINGE IVP STA (09:20)
[2020-12-11 09:46] LABS: ALT 8 U/L (4-34); AST 20 U/L (14-36); African American GFR (CKD) >90 (>60 ml/min/1.73 sqM); Albumin 4.3 g/dL (3.5-5.0); Alkaline Phosphatase 79 U/L (38-126); Amylase 47 U/L (30-110); Anion Gap 9 mmol/L; Blood Urea Nitrogen 10 mg/dL (7-17); Calcium 9.8 mg/dL (8.4-10.2); Carbon Dioxide 21 mmol/L (22-30); Chloride 109 mmol/L (98-107); Glucose 129 mg/dL (74-99); Lipase 96 U/L (23-300); Non-African American GFR(CKD) >90 (>60 ml/min/1.73 sqM); Potassium 3.6 mmol/L (3.5-5.1); Sodium 139 mmol/L (137-145); Total Bilirubin 0.4 mg/dL (0.2-1.3); Total Protein 7.5 g/dL (6.3-8.2)
[2020-12-11 09:51] LABS: Anisocytosis Slight; Basophils % (A) 1 %; Eosinophils # (A) 0.1 k/uL (0-0.7); Eosinophils % (A) 2 %; HCT 38.1 % (34.0-46.0); HGB 12.1 gm/dL (11.4-16.0); Hypochromasia Slight; Lymphocytes # (A) 1.4 k/uL (1.0-4.8); Lymphocytes % (A) 24 %; MCH 25.7 pg (25.0-35.0); MCHC 31.8 g/dL (31.0-37.0); MCV 80.7 fL (80.0-100.0); Mean Platelet Volume 7.7; Monocytes # (A) 0.3 k/uL (0-1.0); Monocytes % (A) 6 %; Neutrophils # (A) 3.8 k/uL (1.3-7.7); Neutrophils % (A) 66 %; Platelet Count 400 k/uL (150-450); RBC 4.72 m/uL (3.80-5.40); RDW 16.3 % (11.5-15.5); WBC 5.7 k/uL (3.8-10.6)
[2020-12-11] MEDS ORDERED: Acetaminophen-Codeine 300-30mg TAB PO STA (10:09)
[2020-12-11] MEDS ORDERED: DIPHENOX-ATROP STARTER PACK 8 TAB BTL PO STA (10:10)
[2020-12-11] MEDS ORDERED: ACET/COD 300 MG/30 MG STARTER PACK 6 TAB BTL PO STA (10:16)
[2020-12-11 10:27] VITALS: BP 145/60; PULSE 87; TEMP 98
[2020-12-11 10:32] LABS: Amorphous Sediment,Urine Rare /hpf; Appearance,Urine Cloudy (Clear); Bilirubin,Urine Negative (Negative); Blood,Urine Large (Negative); Color,Urine Yellow; Glucose,Urine (UA) Negative (Negative); Hyaline Casts,Urine 1 /lpf (0-2); Ketones,Urine 1+ (Negative); Leukocyte Esterase,Urine Small (Negative); Mucus,Urine Few /hpf; Nitrite,Urine Negative (Negative); Protein,Urine Trace (Negative); RBC,Urine 7 /hpf (0-5); Specific Gravity,Urine 1.011 (1.001-1.035); Squamous Epithelial Cell,Urine 1 /hpf (0-4); Urobilinogen,Urine <2.0 mg/dL (<2.0); WBC,Urine 2 /hpf (0-5)
== END 2020-12-11 10:27 | disposition home or self-care (01) ==
LOC: EC 08:29
DX: R10.13 Epigastric pain (principal); J44.9 Chronic obstructive pulmonary disease, unspecified; I10 Essential (primary) hypertension; K21.9 Gastro-esophageal reflux disease without esophagitis; Z79.82 Long term (current) use of aspirin; Z79.899 Other long term (current) drug therapy; Z87.891 Personal history of nicotine dependence; Z86.73 Personal history of transient ischemic attack (TIA), and cerebral infarction without residual deficits; Z90.721 Acquired absence of ovaries, unilateral; Z98.1 Arthrodesis status
CPT/HCPCS: 36415; 93005; 80053; 82150; 83690; 85025; 81001; 99284; 96374; 96375; 96361; J2405; J1170

== ENCOUNTER 2020-12-20 10:49 | Emergency (ER) | payer BC ==
[2020-12-20 10:56] VITALS: BP 129/80; PULSE 106; RESP 18; TEMP 98
[2020-12-20] MEDS ORDERED: HYDROmorphone 0.5 MG/0.5 ML SYRINGE IVP STA (11:33)
[2020-12-20] MEDS ORDERED: ONDANSETRON 4 MG/2 ML VIAL IVP STA (11:33)
[2020-12-20] MEDS ORDERED: SODIUM CHLORIDE 0.9% 1,000 ML IV STA (11:33)
[2020-12-20] MEDS ORDERED: FAMOTIDINE 20 MG/2 ML VIAL IV STA (11:59)
--- NOTE | 2020-12-20 12:00 | ED ---
General Adult HPI - General Chief complaint: Abdominal Pain Stated complaint: abd pain, vomiting Time Seen by Provider: 12/20/20 10:57 Source: patient, RN notes reviewed Mode of arrival: wheelchair Limitations: no limitations - History of Present Illness Initial comments: 65-year-old female with a past medical history COPD, CVA, hypertension, GERD, chronic pancreatitis who is well-known to this emergency room presents for abdominal pain. Patient reports she has had epigastric abdominal pain radiating around the left side of her upper abdomen since 3 days ago. Patient states this feels like her pancreatitis. Patient admits to nausea denies vomiting. Denies any fevers. Patient denies diarrhea. Patient denies any chest pain.Patient has no other complaints at this time including shortness of breath, chest pain, nausea, headache, or visual changes. - Related Data Home Medications Medication Instructions Recorded Confirmed Atorvastatin [Lipitor] 40 mg PO HS 03/18/20 12/20/20 Albuterol Inhaler [Ventolin Hfa 2 puff INHALATION RT-Q4H PRN 06/21/20 12/20/20 Inhaler] Cholecalciferol [Vitamin D3 (25 50 mcg PO DAILY 07/26/20 12/20/20 Mcg = 1000 Iu)] amLODIPine BESYLATE/BENAZEPRIL 1 cap PO DAILY 09/09/20 12/20/20 [Lotrel 5-10 MG] Diphenoxylate HCl/Atropine 1 - 2 tab PO Q8H PRN 12/20/20 12/20/20 [Lomotil 2.5-0.025 mg Tablet] Ondansetron Odt [Zofran Odt] 4 mg PO Q8H PRN 12/20/20 12/20/20 Previous Rx's Medication Instructions Recorded Gabapentin 300 mg PO TID #90 cap 10/04/20 HYDROcodone/APAP 10-325MG [[place] 1 tab PO Q6HR PRN 3 Days #8 tab 12/07/20 10-325] Allergies Allergy/AdvReac Type Severity Reaction Status Date / Time No Known Allergies Allergy Verified 12/20/20 13:20 Review of Systems ROS Statement: Those systems with pertinent positive or pertinent negative responses have been documented in the HPI. ROS Other: All systems not noted in ROS Statement are negative. 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/hx fx l2, hx anemia, pancreatits History of Any Multi-Drug Resistant Organisms: None Reported Past Surgical History: Appendectomy, Back Surgery, Cholecystectomy, Orthopedic Surgery, Tonsillectomy Additional Past Surgical History / Comment(s): Pancreatic stents-since removed, 6 back surgeries with 2 fusions, right oophorectomy due to ectopic , EGD/colonoscopy, right leg alice inserted d/t fracture, BACK SURGERY-REMOVED OLD HARDWARE AND PUT IN NEW HARDWARE 09/28/20 Past Anesthesia/Blood Transfusion Reactions: No Reported Reaction Additional Past Anesthesia/Blood Transfusion Reaction / Comment(s): DIFF IV STARTS, Pt has received blood in past without reaction. Past Psychological History: No Psychological Hx Reported Smoking Status: Former smoker Past Alcohol Use History: None Reported Past Drug Use History: None Reported - Past Family History Father Family Medical History: Cancer Mother Family Medical History: Cancer, CVA/TIA Additional Family Medical History / Comment(s): breast and colon cancer. General Exam Limitations: no limitations General appearance: alert, in no apparent distress Head exam: Present: atraumatic, normocephalic, normal inspection Eye exam: Present: normal appearance, PERRL, EOMI. Absent: scleral icterus, conjunctival injection, periorbital swelling ENT exam: Present: normal exam, mucous membranes moist Neck exam: Present: normal inspection, full ROM. Absent: tenderness, m eningismus, lymphadenopathy Respiratory exam: Present: normal lung sounds bilaterally. Absent: respiratory distress, wheezes, rales, rhonchi, stridor Cardiovascular Exam: Present: regular rate, normal rhythm, normal heart sounds. Absent: systolic murmur, diastolic murmur, rubs, gallop, clicks GI/Abdominal exam: Present: soft, normal bowel sounds. Absent: distended, tenderness, guarding, rebound, rigid Neurological exam: Present: alert Course Vital Signs 12/20/20 10:52 Temperature 98 F Pulse Rate 106 H Respiratory 18 Rate Blood Pressure 129/80 O2 Sat by Pulse 99 Oximetry Medical Decision Making - Lab Data Result diagrams: 12/20/20 11:50 12/20/20 11:50 Lab Results 12/20/20 12/20/20 Range/Units 11:50 11:50 WBC 6.1 (3.8-10.6) k/uL RBC 4.28 (3.80-5.40) m/uL Hgb 11.1 L (11.4-16.0) gm/dL Hct 34.0 (34.0-46.0) % MCV 79.3 L (80.0-100.0) fL MCH 25.9 (25.0-35.0) pg MCHC 32.6 (31.0-37.0) g/dL RDW 16.2 H (11.5-15.5) % Plt Count 410 (150-450) k/uL MPV 7.5 Neutrophils % 59 % Lymphocytes % 32 % Monocytes % 5 % Eosinophils % 3 % Basophils % 0 % Neutrophils # 3.6 (1.3-7.7) k/uL Lymphocytes # 1.9 (1.0-4.8) k/uL Monocytes # 0.3 (0-1.0) k/uL Eosinophils # 0.2 (0-0.7) k/uL Basophils # 0.0 (0-0.2) k/uL Anisocytosis Slight Microcytosis Slight Sodium 138 (137-145) mmol/L Potassium 4.3 (3.5-5.1) mmol/L Chloride 108 H (98-107) mmol/L Carbon Dioxide 23 (22-30) mmol/L Anion Gap 7 mmol/L BUN 13 (7-17) mg/dL Creatinine 0.65 (0.52-1.04) mg/dL Est GFR (CKD-EPI)AfAm >90 (>60 ml/min/1.73 sqM) Est GFR (CKD-EPI)NonAf >90 (>60 ml/min/1.73 sqM) Glucose 121 H (74-99) mg/dL Calcium 9.3 (8.4-10.2) mg/dL Total Bilirubin 0.3 (0.2-1.3) mg/dL AST 25 (14-36) U/L ALT 15 (4-34) U/L Alkaline Phosphatase 74 (38-126) U/L Total Protein 7.5 (6.3-8.2) g/dL Albumin 4.3 (3.5-5.0) g/dL Amylase 48 (30-110) U/L Lipase 132 (23-300) U/L Disposition Clinical Impression: Chronic abdominal pain Disposition: HOME SELF-CARE Condition: Good Instructions (If sedation given, give patient instructions): Acute Abdominal Pain (ED) Additional Instructions: Take Motrin, Tylenol, or your Bentyl for pain. Please follow up with primary care. Return to the emergency room for any worsening symptoms. Is patient prescribed a controlled substance at d/c from ED?: No Referrals: Toi Chin [Primary Care Provider] - 1-2 days Time of Disposition: 13:37
[2020-12-20] MEDS ORDERED: MORPHINE SULFATE 4 MG/ML SYRINGE IM STA (12:02)
[2020-12-20] MEDS ORDERED: ONDANSETRON ODT 4 MG TAB PO STA (12:02)
[2020-12-20 12:34] LABS: Anisocytosis Slight; Basophils % (A) 0 %; Eosinophils # (A) 0.2 k/uL (0-0.7); Eosinophils % (A) 3 %; HGB 11.1 gm/dL (11.4-16.0); Lymphocytes # (A) 1.9 k/uL (1.0-4.8); Lymphocytes % (A) 32 %; MCH 25.9 pg (25.0-35.0); MCHC 32.6 g/dL (31.0-37.0); MCV 79.3 fL (80.0-100.0); Mean Platelet Volume 7.5; Microcytosis Slight; Monocytes # (A) 0.3 k/uL (0-1.0); Monocytes % (A) 5 %; Neutrophils # (A) 3.6 k/uL (1.3-7.7); Neutrophils % (A) 59 %; Platelet Count 410 k/uL (150-450); RBC 4.28 m/uL (3.80-5.40); RDW 16.2 % (11.5-15.5); WBC 6.1 k/uL (3.8-10.6)
[2020-12-20 12:45] LABS: ALT 15 U/L (4-34); AST 25 U/L (14-36); African American GFR (CKD) >90 (>60 ml/min/1.73 sqM); Albumin 4.3 g/dL (3.5-5.0); Alkaline Phosphatase 74 U/L (38-126); Amylase 48 U/L (30-110); Anion Gap 7 mmol/L; Blood Urea Nitrogen 13 mg/dL (7-17); Calcium 9.3 mg/dL (8.4-10.2); Carbon Dioxide 23 mmol/L (22-30); Chloride 108 mmol/L (98-107); Glucose 121 mg/dL (74-99); Lipase 132 U/L (23-300); Non-African American GFR(CKD) >90 (>60 ml/min/1.73 sqM); Potassium 4.3 mmol/L (3.5-5.1); Sodium 138 mmol/L (137-145); Total Bilirubin 0.3 mg/dL (0.2-1.3); Total Protein 7.5 g/dL (6.3-8.2)
[2020-12-20 13:37] LABS: Appearance,Urine Clear (Clear); Bilirubin,Urine Negative (Negative); Blood,Urine Small (Negative); Color,Urine Light Yellow; Glucose,Urine (UA) Trace (Negative); Hyaline Casts,Urine 1 /lpf (0-2); Ketones,Urine Negative (Negative); Leukocyte Esterase,Urine Negative (Negative); Mucus,Urine Rare /hpf; Nitrite,Urine Negative (Negative); Protein,Urine Trace (Negative); RBC,Urine 5 /hpf (0-5); Specific Gravity,Urine 1.011 (1.001-1.035); Squamous Epithelial Cell,Urine 1 /hpf (0-4); Urobilinogen,Urine <2.0 mg/dL (<2.0); WBC,Urine 1 /hpf (0-5)
== END 2020-12-20 13:45 | disposition home or self-care (01) ==
LOC: EC 10:49
DX: R10.9 Unspecified abdominal pain (principal); J44.9 Chronic obstructive pulmonary disease, unspecified; K21.9 Gastro-esophageal reflux disease without esophagitis; I10 Essential (primary) hypertension; M19.90 Unspecified osteoarthritis, unspecified site; Z90.49 Acquired absence of other specified parts of digestive tract; Z86.73 Personal history of transient ischemic attack (TIA), and cerebral infarction without residual deficits; Z90.09 Acquired absence of other part of head and neck; Z87.891 Personal history of nicotine dependence
CPT/HCPCS: 36415; 80053; 82150; 83690; 85025; 81001; 99284; 96372; J2270

== ENCOUNTER → 2020-12-22 | Outpatient (CLI) | payer BC ==
[2020-12-22 08:10] VITALS: BP 121/80; PULSE 69; RESP 16; TEMP 98.1
--- NOTE | 2020-12-22 08:37 | P.PAINCN ---
History of Present Illness - Reason for Consult Consult date: 12/22/20 - History of Present Illness This is 65 years old female with a chronic history of severe upper midback and low back pain, and she had chronic abdominal pain, patient diagnosed with chronic pancreatitis, and she had multiple back surgeries, thoracic and abdominal fusion, multiple revisions, 6 weeks ago patient had revision of thoracic lumbar fusion, patient continued to have severe midback and low back pain, and severe abdominal pain, the pain is constant and increases with any activity, and she is currently on [place] 10/325 every 8 hours, and Neurontin 300 mg 3 times a day, patient had chronic diarrhea secondary to chronic pancreatitis, she denies any motor or sensory deficit, but she accompanied using cane 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/hx fx l2, hx anemia, pancreatits History of Any Multi-Drug Resistant Organisms: None Reported Past Surgical History: Appendectomy, Back Surgery, Cholecystectomy, Orthopedic Surgery, Tonsillectomy Additional Past Surgical History / Comment(s): Pancreatic stents-since removed, 6 back surgeries with 2 fusions, right oophorectomy due to ectopic , EGD/colonoscopy, right leg alice inserted d/t fracture, BACK SURGERY-REMOVED OLD HARDWARE AND PUT IN NEW HARDWARE 09/28/20 Past Anesthesia/Blood Transfusion Reactions: No Reported Reaction Additional Past Anesthesia/Blood Transfusion Reaction / Comm: DIFF IV STARTS, Pt has received blood in past without reaction. Past Psychological History: No Psychological Hx Reported Additional Psychological History / Comment(s): . Smoking Status: Former smoker Past Alcohol Use History: None Reported Additional Past Alcohol Use History / Comment(s): Pt started smoking in 1980, quit smoking Sep 2019, Past Drug Use History: None Reported Additional Drug Use History / Comment(s): . - Past Family History Father Family Medical History: Cancer Mother Family Medical History: Cancer, CVA/TIA Additional Family Medical History / Comment(s): breast and colon cancer. Medications and Allergies Home Medications Medication Instructions Recorded Confirmed Type Atorvastatin [Lipitor] 40 mg PO HS 03/18/20 12/20/20 History Albuterol Inhaler [Ventolin Hfa 2 puff INHALATION RT-Q4H PRN 06/21/20 12/20/20 History Inhaler] Cholecalciferol [Vitamin D3 (25 50 mcg PO DAILY 07/26/20 12/20/20 History Mcg = 1000 Iu)] amLODIPine BESYLATE/BENAZEPRIL 1 cap PO DAILY 09/09/20 12/20/20 History [Lotrel 5-10 MG] Gabapentin 300 mg PO TID #90 cap 10/04/20 12/20/20 Rx HYDROcodone/APAP 10-325MG [[place] 1 tab PO Q6HR PRN 3 Days #8 tab 12/07/20 12/20/20 Rx 10-325] Diphenoxylate HCl/Atropine 1 - 2 tab PO Q8H PRN 12/20/20 12/20/20 History [Lomotil 2.5-0.025 mg Tablet] Ondansetron Odt [Zofran Odt] 4 mg PO Q8H PRN 12/20/20 12/20/20 History Allergies Allergy/AdvReac Type Severity Reaction Status Date / Time No Known Allergies Allergy Verified 12/20/20 13:20 Physical Exam Vitals: Vital Signs Temp Pulse Resp BP Pulse Ox 12/22/20 08:05 98.1 F 69 16 121/80 99 - Constitutional Physical Examinations : -Constitutiona : Cooperative , not in acute distress . -HEENT : nech : supple , no Lymphadenopathy , normal thyroid size . : eyes : no ptosis , no icterus, no photophobia . - neurologic : Cranial nerve II to XII intact , no focal neurological deffecit . -psychatric : alert , oriented X 3 , appropriate affect , intact judgment and insight . -Lymphatic : no Lymphadenopathy . -Abdomen : Tenderness in the epigastric area - musculoskeltal : Cervical Spine motor stregnth in the deltoid and biceps, normal right side , normal Left side motor stregnth biceps and the wrist extensors normal right side ,normal left side . motor stregnth in the triceps muscle . normal Right side , normal Left side deep tendon reflexes normal at the biceps , normal at Brachioradialis , normal at triceps. Thoracic spine= Positive facet loading test T4 to T12 Lumber spine moter stegnth lower extremities ,thigh and legs 5/5 Right side , 5/5 Left side deep tendon reflexes : normal Knee Jerk , normal ankle Jerk lumber facet Loading Test =positive Right , positive Left Range of motion of the lumbar spine Flexion 30 degrees, extension 10 degrees strait leg raising test = positive at 30 degree Fabere test= positive Right , and positive LT . Sever tenderness over the Sacroiliac joint on the Right , and Left sides Gaenslen test= positive right ,and positive left . Seated flexion test= positive right ,a nd positive Left . Distraction test= positive bilaterally Results Comments: Computed tomography scan of the lumbar spine multilevel lumbar degenerative disc disease and central canal stenosis Assessment and Plan Plan: Assessment and plan=1-chronic abdominal pain secondary to chronic pancreatitis. 2-thoracic and lumbar degenerative disc disease, status post thoracic and lumbar fusion (done 6 weeks ago ) 3-bilateral sacroiliitis. Chronic and current use of high-risk medication., Patient denies any side effects of the current pain medication and the current treatment/medication helping the patient to do activity of daily living , Diagnoses, prognosis, treatment options, including but not limited to physical therapy, medication management, interventional therapies, and surgery, were discussed with the patient All the questions answered The narcotic consent was signed and patient agreed and understood the side effects and complications of opioid treatment. Patient signed the narcotic agreement, and was orally counseled, not to overuse, not to abuse, not to Divert , not tp sell pain medication, and to take it as prescribed only, Patient was counseled not to drive or operate heavy equipment while using narcotic medication, and advised not to use alcohol or any Illicit drugs while using the narcotis. understanding that lack of compliance with any of the above instructions, will likely to cause discharge from, the pain service, not to renew his narcotic prescriptions MAPS Reviwed and it was apropriate . Medication managements= patient will be given prescription for [place] 10/325 every 8 hours when necessary dispense 90 . Discontinue Neurontin Start patient on Lyrica 50 mg twice a day dispense 60 Next visit we'll do urine drug screen I have spent 35 minutes on patient care today. The time was used to review the medical records including relevant urine studies and Prescription history (MAPs), review of the available imaging, evaluation and examination of the patient, coordination of care with the medical staff and if applicable referring physicians, as well as creation of the medical record. , Time with Patient: Greater than 30 PQRS Measure Charge Sheet Measure #130: Documentation of Current Meds in Medical Chart: Patient's medications documented in chart Measure #226: Tobacco Use: Screen & Cessation Intervention: Pt screened for tobacco use AND intervention given Measure #111: Pneumonia Vaccination: Pneumococcal vaccine NOT administered or previously given Measure #47: Advance Care Plan: Advance care planning discussed & documented, pt chose/unable to give Measure #412: Opioid Treatment Agreement: Documented signed opioid trtmnt agreemnt min once during opioid trtmnt Measure #408: Opioid Therapy Follow-up Evaluation: Patient had f/u eval minimum every 3 months during opioid therapy Measure #317: Preventitive Care & Scrn High Bld Press & F/U: Normal blood pressure, f/u not required Measure #128: Body Mass Index (BMI) Screening & Follow-up: BMI documented BELOW normal parameters - f/u documented Measure #131: Pain Assessment & Follow-up: Pain positive & plan documented, Follow-up scheduled Measure #431: Unhealthy Alcohol Use Preventative Care & Scrn: Patient not identified as an unhealthy alcohol user PQRS Narrative: Smoking Status Former smoker Blood Pressure 121/80 Pain Intensity [Back] 9 Scale Used Numeric (1 - 10) Hx Alcohol Use (MH) No Home Medications: Ambulatory Orders Atorvastatin [Lipitor] 40 mg PO HS 03/18/20 Albuterol Inhaler [Ventolin Hfa Inhaler] 2 puff INHALATION RT-Q4H PRN 06/21/20 Cholecalciferol [Vitamin D3 (25 Mcg = 1000 Iu)] 50 mcg PO DAILY 07/26/20 amLODIPine BESYLATE/BENAZEPRIL [Lotrel 5-10 MG] 1 cap PO DAILY 09/09/20 Gabapentin 300 mg PO TID #90 cap 10/04/20 HYDROcodone/APAP 10-325MG [[place] 10-325] 1 tab PO Q6HR PRN 3 Days #8 tab 12/07/20 Diphenoxylate HCl/Atropine [Lomotil 2.5-0.025 mg Tablet] 1 - 2 tab PO Q8H PRN 12/20/20 Ondansetron Odt [Zofran Odt] 4 mg PO Q8H PRN 12/20/20
== END ==
LOC: PNWHC3 07:52
PROVIDERS: ATTEND Specialist
DX: M51.34 Other intervertebral disc degeneration, thoracic region (principal); M51.36 Other intervertebral disc degeneration, lumbar region; M96.1 Postlaminectomy syndrome, not elsewhere classified; M46.1 Sacroiliitis, not elsewhere classified; J44.9 Chronic obstructive pulmonary disease, unspecified; K86.1 Other chronic pancreatitis; M19.90 Unspecified osteoarthritis, unspecified site; I10 Essential (primary) hypertension; Z87.891 Personal history of nicotine dependence; Z79.899 Other long term (current) drug therapy
CPT/HCPCS: 99211

== ENCOUNTER 2020-12-30 08:59 | Emergency (ER) | payer BC ==
[2020-12-30 09:08] VITALS: RESP 18
[2020-12-30] MEDS ORDERED: SODIUM CHLORIDE 0.9% 1,000 ML IV STA (09:15)
[2020-12-30] MEDS ORDERED: MORPHINE SULFATE 4 MG/ML SYRINGE IVP STA (09:19)
[2020-12-30 09:26] LABS: Anisocytosis Slight; Basophils % (A) 0 %; Eosinophils # (A) 0.1 k/uL (0-0.7); Eosinophils % (A) 3 %; HCT 36.3 % (34.0-46.0); HGB 11.9 gm/dL (11.4-16.0); Lymphocytes # (A) 1.5 k/uL (1.0-4.8); Lymphocytes % (A) 26 %; MCH 25.8 pg (25.0-35.0); MCHC 32.9 g/dL (31.0-37.0); MCV 78.4 fL (80.0-100.0); Mean Platelet Volume 6.7; Microcytosis Slight; Monocytes # (A) 0.3 k/uL (0-1.0); Monocytes % (A) 5 %; Neutrophils # (A) 3.8 k/uL (1.3-7.7); Neutrophils % (A) 65 %; Platelet Count 520 k/uL (150-450); RBC 4.63 m/uL (3.80-5.40); RDW 17.2 % (11.5-15.5); WBC 5.8 k/uL (3.8-10.6)
--- NOTE | 2020-12-30 09:36 | ED ---
General Adult HPI - General Chief complaint: Nausea/Vomiting/Diarrhea Stated complaint: Pancreatitis/N&V Time Seen by Provider: 12/30/20 09:03 Source: patient, EMS Mode of arrival: EMS - History of Present Illness Initial comments: Dictation was produced using [employer] dictation software. please excuse any grammatical, word or spelling errors. This patient was cared for during a federal and state declared state of emergency secondary to Covid 19 Chief Complaint: 65-year-old female past medical history panic otitis presents with abdominal pain nausea vomiting History of Present Illness: Is a 65-year-old female she has past medical history of chronic pancreatitis. She's had pancreatic stents. She follows up with Dr. Pearson. She has an appointment in the near future. Patient states that over the last 4 days she's been having nausea vomiting and epigastric pain. Patient feels like her symptoms are similar to her usual pancreatitis attacks. States that her emesis is nonbilious nonbloody. She has had some bouts of watery diarrhea. Denies any fever or constitutional symptoms. Patient has history of appendectomy cholecystectomy. Took some Zofran which resolved her symptoms. She called EMS and was brought to the ER. The ROS documented in this emergency department record has been reviewed and confirmed by me. Those systems with pertinent positive or negative responses have been documented in the HPI. All other systems are other negative and/or noncontributory. PHYSICAL EXAM: General Impression: Alert and oriented x3, not in acute distress HEENT: Normocephalic atraumatic, extra-ocular movements intact, pupils equal and reactive to light bilaterally, mucous membranes moist. Cardiovascular: Heart regular rate and rhythm Chest: Able to complete full sentences, no retractions, no tachypnea Abdomen: abdomen soft, mild epigastric tenderness to palpation, non-distended, no organomegaly Musculoskeletal: Pulses present and equal in all extremities, no peripheral edema Motor: no focal deficits noted Neurological: CN II-XII grossly intact, no focal motor or sensory deficits noted Skin: Intact with no visualized rashes Psych: Normal affect and mood ED course: 65-year-old female presents with persistent epigastric abdominal pain nausea vomiting and some bouts of diarrhea for the last 4 days. Vital signs upon arrival within acceptable limits. Laboratory evaluation is unremarkable. CBC, metabolic panel is within acceptable limits. Patient's well-appearing at bedside. Patient be discharged per she has an appointment with GI doctor that she is told to follow-up with. - Related Data Home Medications Medication Instructions Recorded Confirmed Atorvastatin [Lipitor] 40 mg PO HS 03/18/20 12/20/20 Albuterol Inhaler [Ventolin Hfa 2 puff INHALATION RT-Q4H PRN 06/21/20 12/20/20 Inhaler] Cholecalciferol [Vitamin D3 (25 50 mcg PO DAILY 07/26/20 12/20/20 Mcg = 1000 Iu)] amLODIPine BESYLATE/BENAZEPRIL 1 cap PO DAILY 09/09/20 12/20/20 [Lotrel 5-10 MG] Diphenoxylate HCl/Atropine 1 - 2 tab PO Q8H PRN 12/20/20 12/20/20 [Lomotil 2.5-0.025 mg Tablet] Ondansetron Odt [Zofran Odt] 4 mg PO Q8H PRN 12/20/20 12/20/20 Previous Rx's Medication Instructions Recorded Gabapentin 300 mg PO TID #90 cap 10/04/20 HYDROcodone/APAP 10-325MG [[place] 1 tab PO Q6HR PRN 3 Days #8 tab 12/07/20 10-325] Allergies Allergy/AdvReac Type Severity Reaction Status Date / Time No Known Allergies Allergy Verified 12/20/20 13:20 Review of Systems ROS Statement: Those systems with pertinent positive or pertinent negative responses have been documented in the HPI. ROS Other: All systems not noted in ROS Statement are negative. 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/hx fx l2, hx anemia, pancreatits History of Any Multi-Drug Resistant Organisms: None Reported Past Surgical History: Appendectomy, Back Surgery, Cholecystectomy, Orthopedic Surgery, Tonsillectomy Additional Past Surgical History / Comment(s): Pancreatic stents-since removed, 6 back surgeries with 2 fusions, right oophorectomy due to ectopic , EGD/colonoscopy, right leg alice inserted d/t fracture, BACK SURGERY-REMOVED OLD HARDWARE AND PUT IN NEW HARDWARE 09/28/20 Past Anesthesia/Blood Transfusion Reactions: No Reported Reaction Additional Past Anesthesia/Blood Transfusion Reaction / Comment(s): DIFF IV STARTS, Pt has received blood in past without reaction. Past Psychological History: No Psychological Hx Reported Smoking Status: Former smoker Past Alcohol Use History: None Reported Past Drug Use History: None Reported - Past Family History Father Family Medical History: Cancer Mother Family Medical History: Cancer, CVA/TIA Additional Family Medical History / Comment(s): breast and colon cancer. Course Vital Signs 12/30/20 09:03 Temperature 98.3 F Pulse Rate 99 Respiratory 18 Rate Blood Pressure 125/77 O2 Sat by Pulse 98 Oximetry Medical Decision Making - Lab Data Result diagrams: 12/30/20 09:10 12/30/20 09:10 Lab Results 12/30/20 12/30/20 Range/Units 09:10 09:10 WBC 5.8 (3.8-10.6) k/uL RBC 4.63 (3.80-5.40) m/uL Hgb 11.9 (11.4-16.0) gm/dL Hct 36.3 (34.0-46.0) % MCV 78.4 L (80.0-100.0) fL MCH 25.8 (25.0-35.0) pg MCHC 32.9 (31.0-37.0) g/dL RDW 17.2 H (11.5-15.5) % Plt Count 520 H (150-450) k/uL MPV 6.7 Neutrophils % 65 % Lymphocytes % 26 % Monocytes % 5 % Eosinophils % 3 % Basophils % 0 % Neutrophils # 3.8 (1.3-7.7) k/uL Lymphocytes # 1.5 (1.0-4.8) k/uL Monocytes # 0.3 (0-1.0) k/uL Eosinophils # 0.1 (0-0.7) k/uL Basophils # 0.0 (0-0.2) k/uL Anisocytosis Slight Microcytosis Slight Sodium 140 (137-145) mmol/L Potassium 4.4 (3.5-5.1) mmol/L Chloride 108 H (98-107) mmol/L Carbon Dioxide 22 (22-30) mmol/L Anion Gap 10 mmol/L BUN 12 (7-17) mg/dL Creatinine 0.66 (0.52-1.04) mg/dL Est GFR (CKD-EPI)AfAm >90 (>60 ml/min/1.73 sqM) Est GFR (CKD-EPI)NonAf >90 (>60 ml/min/1.73 sqM) Glucose 128 H (74-99) mg/dL Calcium 10.2 (8.4-10.2) mg/dL Total Bilirubin 0.4 (0.2-1.3) mg/dL AST 23 (14-36) U/L ALT 12 (4-34) U/L Alkaline Phosphatase 103 (38-126) U/L Total Protein 7.8 (6.3-8.2) g/dL Albumin 4.5 (3.5-5.0) g/dL Lipase 76 (23-300) U/L Disposition Clinical Impression: Abdominal pain Disposition: HOME SELF-CARE Condition: Good Instructions (If sedation given, give patient instructions): Abdominal Pain (ED), Acute Nausea and Vomiting (ED) Is patient prescribed a controlled substance at d/c from ED?: No Referrals: Toi Chin [Primary Care Provider] - 1-2 days Zoya Clark MD [STAFF PHYSICIAN] - 1-2 days Time of Disposition: 10:30
[2020-12-30 09:39] LABS: ALT 12 U/L (4-34); AST 23 U/L (14-36); African American GFR (CKD) >90 (>60 ml/min/1.73 sqM); Albumin 4.5 g/dL (3.5-5.0); Alkaline Phosphatase 103 U/L (38-126); Anion Gap 10 mmol/L; Blood Urea Nitrogen 12 mg/dL (7-17); Calcium 10.2 mg/dL (8.4-10.2); Carbon Dioxide 22 mmol/L (22-30); Chloride 108 mmol/L (98-107); Glucose 128 mg/dL (74-99); Lipase 76 U/L (23-300); Non-African American GFR(CKD) >90 (>60 ml/min/1.73 sqM); Potassium 4.4 mmol/L (3.5-5.1); Sodium 140 mmol/L (137-145); Total Bilirubin 0.4 mg/dL (0.2-1.3); Total Protein 7.8 g/dL (6.3-8.2)
[2020-12-30] MEDS ORDERED: ACET/COD 300 MG/30 MG STARTER PACK 6 TAB BTL PO STA (10:38)
[2020-12-30 10:47] VITALS: BP 137/86; PULSE 82; TEMP 98.6
== END 2020-12-30 10:54 | disposition home or self-care (01) ==
LOC: EC 08:59
DX: R10.13 Epigastric pain (principal); I10 Essential (primary) hypertension; J44.9 Chronic obstructive pulmonary disease, unspecified; K21.9 Gastro-esophageal reflux disease without esophagitis; M19.90 Unspecified osteoarthritis, unspecified site; Z86.73 Personal history of transient ischemic attack (TIA), and cerebral infarction without residual deficits; Z90.49 Acquired absence of other specified parts of digestive tract; Z90.721 Acquired absence of ovaries, unilateral; Z87.891 Personal history of nicotine dependence
CPT/HCPCS: 36415; 80053; 83690; 85025; 99284; 96374; 96361; J2270

== ENCOUNTER → 2021-01-12 | Outpatient (CLI) | payer BC ==
[2021-01-12 12:51] VITALS: BP 123/72; PULSE 70; RESP 18; TEMP 98.1
--- NOTE | 2021-01-12 13:03 | P.PN ---
Subjective Progress Note Date: 01/12/21 Mary is a 65-year-old female who presents to the clinic for follow-up. She was seen in our office last month as an initial consult after having back surgery in September. She reports she still having low back pain with pain in the left leg more than the right leg. She has chronic left lower extremity weakness. The pain is slightly improving. She reports a VAS of 7 out of 10 today. She feels the pain medication is helpful but is not lasting very long. She admitted to overusing the pain medication sometimes using 4 tablets a day. She took her last tablet today. She is scheduled to refill her medications after January 18. She is about 6 days short period she denies any side effects from the medications. Review of Systems: Denies any New chest pain, short of breath, Nausea/vomitting, abdominal pain, bowel or bladder incontinence, or any overt new neurologic symptoms in the upper or lower extremities outside of what is noted in the HPI Objective - Vital Signs Vital signs: Vital Signs Temp 98.1 F 01/12/21 12:47 Pulse 70 01/12/21 12:47 Resp 18 01/12/21 12:47 BP 123/72 01/12/21 12:47 Pulse Ox 99 01/12/21 12:47 - Exam General: Awake and alert oriented 3 no distress Respiratory exam: No audible wheezing no accessory muscle usage Cardiovascular exam: regular rate, palpable bilateral pulses, no lower extremity edema Abdominal exam: No distention nontender to palpation Cervical spine: Normal alignment, Spurling's negative, facet loading negative, Hi Teacher strength is 5/5, cunningham negative Lumbar spine: Surgical incision is healing well, tender to palpation, there is cutaneous hyperalgesia. Severe atrophy of the paraspinal muscles. Atrophy of the gluteal muscles. Left lower extremity strength is 4-5 compared to 5 out of 5 on the right. Neuro exam: Normal sensation in bilateral upper extremities, deep tendon reflexes are 2+ bilateral upper extremities. Normal sensation in bilateral lower extremities. Deep tendon reflexes are 1+ bilateral patellar, 1+ right Achilles, diminished left Achilles. Psych exam: Cooperative, appropriate mood Assessment and Plan Assessment: #1 lumbar postlaminectomy syndrome #2 lumbar radiculopathy #3 opioid dependence and a controlled environment Plan: -At this point we'll switch her back to gabapentin. 300 mg 3 times a day -We will take a urine sample from her today. -I've explained that she has violated her narcotics contract. If there are any further violations of the narcotics contract we'll be unable to perform any further refills for her pain medications. I've explained this patient in detail today. She will not be able to fill her prescription any earlier than january 18 or of this month. She understands this. We should get another urine sample from her on her next visit as well. I have spent 28 minutes on patient care today. The time was used to review the medical records including relevant urine studies and Prescription history (MAPs), review of the available imaging, evaluation and examination of the patient, coordination of care with the medical staff and if applicable referring physicians, as well as creation of the medical record. Maps were checked and appropriate, opioid start talking form is on file and updated, urine drug screens of been appropriate and have been reviewed.
== END ==
LOC: PNWHC3 12:40
PROVIDERS: ATTEND Hospitalist
DX: M96.1 Postlaminectomy syndrome, not elsewhere classified (principal); M54.16 Radiculopathy, lumbar region; F11.20 Opioid dependence, uncomplicated; I10 Essential (primary) hypertension; F17.200 Nicotine dependence, unspecified, uncomplicated; J44.1 Chronic obstructive pulmonary disease with (acute) exacerbation; Z86.73 Personal history of transient ischemic attack (TIA), and cerebral infarction without residual deficits; Z79.899 Other long term (current) drug therapy
CPT/HCPCS: 80307; 99212; G0482; 99211

== ENCOUNTER → 2021-02-09 | Outpatient (CLI) | payer BC ==
[2021-02-09 14:46] VITALS: BP 132/95; PULSE 88; RESP 18; TEMP 97.6
--- NOTE | 2021-02-09 15:02 | P.PN ---
Subjective Progress Note Date: 02/09/21 This is Follow up visit for this 65 years old female with a chronic history of severe upper midback and low back pain, and she had chronic abdominal pain, patient diagnosed with chronic pancreatitis, and she had multiple back surgeries, thoracic and abdominal fusion, patient continued to have severe midba ck and low back pain, and severe abdominal pain, the pain is constant and increases with any activity, and she is currently on [place] 10/325 every 8 hours, and Neurontin 300 mg 3 times a day, patient had chronic diarrhea secondary to chronic pancreatitis, she denies any motor or sensory deficit, but she accompanied using cane, patient report and in the current medication is not helping enough to control the pain, recurrent instability of the pain increases with any activity and she found that her pain level was 7-8/10, she denies any side effect of the medication, he denies any excessive drowsiness or sleepiness she denies any fever or night sweats Objective - Vital Signs Vital signs: Vital Signs Temp 97.6 F 02/09/21 14:18 Pulse 88 02/09/21 14:18 Resp 18 02/09/21 14:18 BP 132/95 02/09/21 14:18 Pulse Ox 98 02/09/21 14:18 Intake & Output 02/08/21 02/09/21 02/09/21 18:59 06:59 18:59 Weight 53.977 kg - Exam Physical Examinations : -Constitutiona : Cooperative , not in acute distress . -HEENT : nech : supple , no Lymphadenopathy , normal thyroid size . : eyes : no ptosis , no icterus, no photophobia . - neurologic : Cranial nerve II to XII intact , no focal neurological deffecit . -psychatric : alert , oriented X 3 , appropriate affect , intact judgment and insight . -Lymphatic : no Lymphadenopathy . -Abdomen : Tenderness in the epigastric area - musculoskeltal : Cervical Spine motor stregnth in the deltoid and biceps, normal right side , normal Left side motor stregnth biceps and the wrist extensors normal right side ,normal left side . motor stregnth in the triceps muscle . normal Right side , normal Left side deep tendon reflexes normal at the biceps , normal at Brachioradialis , normal at triceps. Thoracic spine= Positive facet loading test T4 to T12 Lumber spine moter stegnth lower extremities ,thigh and legs 5/5 Right side , 5/5 Left side deep tendon reflexes : normal Knee Jerk , normal ankle Jerk lumber facet Loading Test =positive Right , positive Left Range of motion of the lumbar spine Flexion 30 degrees, extension 10 degrees strait leg raising test = positive at 30 degree Fabere test= positive Right , and positive LT . Sever tenderness over the Sacroiliac joint on the Right , and Left sides Gaenslen test= positive right ,and positive left . Seated flexion test= positive right ,and positive Left . Distraction test= positive bilaterally Results: Computed tomography scan of the lumbar spine multilevel lumbar degenerative disc disease and central canal stenosis Assessment and Plan Plan: Assessment and plan=1-chronic abdominal pain secondary to chronic pancreatitis. 2-thoracic and lumbar degenerative disc disease, status post thoracic and lumbar fusion (done 6 weeks ago ) 3-bilateral sacroiliitis. 4-Chronic and current use of high-risk medication., Patient denies any side effects of the current pain medication and the cu rrent treatment/medication helping the patient to do activity of daily living , Diagnoses, prognosis, treatment options, including but not limited to physical therapy, medication management, interventional therapies, and surgery, were discussed with the patient All the questions answered The narcotic consent was signed and patient agreed and understood the side effects and complications of opioid treatment. Patient signed the narcotic agreement, and was orally counseled, not to overuse, not to abuse, not to Divert , not tp sell pain medication, and to take it as prescribed only, Patient was counseled not to drive or operate heavy equipment while using narcotic medication, and advised not to use alcohol or any Illicit drugs while using the narcotis. understanding that lack of compliance with any of the above instructions, will likely to cause discharge from, the pain service, not to renew his narcotic prescriptions MAPS Reviwed and it was apropriate . Current drugs reviewed Medication managements= patient will be given prescription for [place] 10/325 every 6 hours when necessary dispense 120 . Increase Neurontin to 400 mg TID Next visit we'll do urine drug screen I have spent 25 minutes on patient care today. The time was used to review the medical records including relevant urine studies and Prescription history (MAPs), review of the available imaging, evaluation and examination of the patient, coordination of care with the medical staff and if applicable referring physicians, as well as creation of the medical record. , Time with Patient: Greater than 30 PQRS Measure Charge Sheet Measure #130: Documentation of Current Meds in Medical Chart: Patient's medications documented in chart Measure #226: Tobacco Use: Screen & Cessation Intervention: Pt screened for tobacco use AND intervention given Measure #111: Pneumonia Vaccination: Pneumococcal vaccine NOT administered or previously given Measure #47: Advance Care Plan: Advance care planning discussed & documented, pt chose/unable to give Measure #412: Opioid Treatment Agreement: Documented signed opioid trtmnt agreemnt min once during opioid trtmnt Measure #408: Opioid Therapy Follow-up Evaluation: Patient had f/u eval minimum every 3 months during opioid therapy Measure #317: Preventitive Care & Scrn High Bld Press & F/U: Normal blood pressure, f/u not required Measure #128: Body Mass Index (BMI) Screening & Follow-up: BMI documented BELOW normal parameters - f/u documented Measure #131: Pain Assessment & Follow-up: Pain positive & plan documented, Follow-up scheduled Measure #431: Unhealthy Alcohol Use Preventative Care & Scrn: Patient not identified as an unhealthy alcohol user Time with Patient: Less than 30
== END ==
LOC: PNWHC3 13:53
PROVIDERS: ATTEND Specialist
DX: M51.36 Other intervertebral disc degeneration, lumbar region (principal); M51.34 Other intervertebral disc degeneration, thoracic region; M46.1 Sacroiliitis, not elsewhere classified; K86.1 Other chronic pancreatitis; G89.29 Other chronic pain; Z79.891 Long term (current) use of opiate analgesic; Z98.1 Arthrodesis status; Z87.891 Personal history of nicotine dependence
CPT/HCPCS: 99211

== ENCOUNTER → 2021-03-09 | Outpatient (CLI) | payer BC ==
[2021-03-09 14:19] VITALS: BP 132/87; PULSE 82; RESP 18; TEMP 98.4
--- NOTE | 2021-03-09 14:54 | P.PN ---
Subjective Progress Note Date: 03/09/21 This is Follow up visit for this 65 years old female with a chronic history of severe upper midback and low back pain, and she had chronic abdominal pain, patient diagnosed with chronic pancreatitis, and she had multiple back surgeries, thoracic and abdominal fusion, patient continued to have severe midba ck and low back pain, and severe abdominal pain, the pain is constant and increases with any activity, and she is currently on [place] 10/325 [id number], and Neurontin 400 mg 3 times a day, patient had chronic diarrhea secondary to chronic pancreatitis, she denies any motor or sensory deficit, but she accompanied using cane, patient report that ,the current medication is helping to control the pain, VAS 4/10, she denies any side effect of the medication, he denies any excessive drowsiness or sleepiness she denies any fever or night sweats Physical Examinations : -Constitutiona : Cooperative , not in acute distress . -HEENT : nech : supple , no Lymphadenopathy , normal thyroid size . : eyes : no ptosis , no icterus, no photophobia . - neurologic : Cranial nerve II to XII intact , no focal neurological deffecit . -psychatric : alert , oriented X 3 , appropriate affect , intact judgment and insight . -Lymphatic : no Lymphadenopathy . -Abdomen : Tenderness in the epigastric area - musculoskeltal : Cervical Spine motor stregnth in the deltoid and biceps, normal right side , normal Left side motor stregnth biceps and the wrist extensors normal right side ,normal left side . motor stregnth in the triceps muscle . normal Right side , normal Left side deep tendon reflexes normal at the biceps , normal at Brachioradialis , normal at triceps. Thoracic spine= Positive facet loading test T4 to T12 Lumber spine moter stegnth lower extremities ,thigh and legs 5/5 Right side , 5/5 Left side deep tendon reflexes : normal Knee Jerk , normal ankle Jerk lumber facet Loading Test =positive Right , positive Left Range of motion of the lumbar spine Flexion 30 degrees, extension 10 degrees strait leg raising test = positive at 30 degree Fabere test= positive Right , and positive LT . Sever tenderness over the Sacroiliac joint on the Right , and Left sides Gaenslen test= positive right ,and positive left . Seated flexion test= positive right ,and positive Left . Distraction test= positive bilaterally Results: Computed tomography scan of the lumbar spine multilevel lumbar degenerative disc disease and central canal stenosi Assessment and plan=1-chronic abdominal pain secondary to chronic pancreatitis. 2-thoracic and lumbar degenerative disc disease, status post thoracic and lumbar fusion (done 6 weeks ago ) 3-bilateral sacroiliitis. 4-Chronic and current use of high-risk medication., Patient denies any side effects of the current pain medication and the current treatment/medication helping the patient to do activity of daily living , Diagnoses, prognosis, treatment options, including but not limited to physical therapy, medication management, interventional therapies, and surgery, were discussed with the patient All the questions answered The narcotic consent was signed and patient agreed and understood the side effects and complications of opioid treatment. Patient signed the narcotic agreement, and was orally counseled, not to overuse, not to abuse, not to Divert , not tp sell pain medication, and to take it as prescribed only, Patient was counseled not to drive or operate heavy equipment while using narcotic medication, and advised not to use alcohol or any Illicit drugs while using the narcotis. understanding that lack of compliance with any of the above instructions, will likely to cause discharge from, the pain service, not to renew his narcotic prescriptions MAPS Reviwed and it was apropriate . Current drugs reviewed Medication managements= refill prescription for [place] 10/325 every 6 hours when necessary dispense 120 . continue Neurontin to 400 mg TID The lomotil 1-2 tab when necessary every 8 hours (dispence 56 with one refill , because her primary care refill this medication and this medication is controlled substance) I have spent 25 minutes on patient care today. The time was used to review the medical records including relevant urine studies and Prescription history (MAPs), review of the available imaging, evaluation and examination of the patient, coordination of care with the medical staff and if applicable referring physicians, as well as creation of the medical record. , PQRS Measure Charge Sheet Measure #130: Documentation of Current Meds in Medical Chart: Patient's medications documented in chart Measure #226: Tobacco Use: Screen & Cessation Intervention: Pt screened for tobacco use AND intervention given Measure #111: Pneumonia Vaccination: Pneumococcal vaccine NOT administered or previously given Measure #47: Advance Care Plan: Advance care planning discussed & documented, pt chose/unable to give Measure #412: Opioid Treatment Agreement: Documented signed opioid trtmnt agreemnt min once during opioid trtmnt Measure #408: Opioid Therapy Follow-up Evaluation: Patient had f/u eval minimum every 3 months during opioid therapy Measure #317: Preventitive Care & Scrn High Bld Press & F/U: Normal blood pre ssure, f/u not required Measure #128: Body Mass Index (BMI) Screening & Follow-up: BMI documented BELOW normal parameters - f/u documented Measure #131: Pain Assessment & Follow-up: Pain positive & plan documented, Follow-up scheduled Measure #431: Unhealthy Alcohol Use Preventative Care & Scrn: Patient not identified as an unhealthy alcohol user Time with Patient: Less than 30 Objective - Vital Signs Vital signs: Vital Signs Temp 98.4 F 03/09/21 14:15 Pulse 82 03/09/21 14:15 Resp 18 03/09/21 14:15 BP 132/87 03/09/21 14:15 Pulse Ox 98 03/09/21 14:15
== END ==
LOC: PNWHC3 14:06
PROVIDERS: ATTEND Specialist
DX: M51.36 Other intervertebral disc degeneration, lumbar region (principal); M51.34 Other intervertebral disc degeneration, thoracic region; M46.1 Sacroiliitis, not elsewhere classified; K86.1 Other chronic pancreatitis; G89.29 Other chronic pain; Z79.891 Long term (current) use of opiate analgesic; Z98.1 Arthrodesis status; Z87.891 Personal history of nicotine dependence
CPT/HCPCS: 80307; 99212; G0482

== ENCOUNTER 2021-04-17 18:59 | Inpatient (IN) | payer BC ==
[2021-04-17] MEDS ORDERED: diphenhydrAMINE 50 MG/ML 1 ML VIAL IVP STA (19:48)
[2021-04-17] MEDS ORDERED: MORPHINE SULFATE 4 MG/ML SYRINGE IV STA (19:48)
[2021-04-17] MEDS ORDERED: ONDANSETRON 4 MG/2 ML VIAL IVP STA (19:48)
[2021-04-17] MEDS ORDERED: SODIUM CHLORIDE 0.9% 1,000 ML IV STA (19:48)
[2021-04-17] MEDS ORDERED: FAMOTIDINE 20 MG/2 ML VIAL IV STA (19:49)
[2021-04-17 20:23] LABS: Anisocytosis Slight; Basophils % (A) 0 %; Eosinophils # (A) 0.3 k/uL (0-0.7); Eosinophils % (A) 3 %; HCT 37.3 % (34.0-46.0); Lymphocytes # (A) 2.3 k/uL (1.0-4.8); Lymphocytes % (A) 31 %; MCH 28.4 pg (25.0-35.0); MCHC 32.2 g/dL (31.0-37.0); MCV 88.1 fL (80.0-100.0); Mean Platelet Volume 7.6; Monocytes # (A) 0.4 k/uL (0-1.0); Monocytes % (A) 6 %; Neutrophils # (A) 4.5 k/uL (1.3-7.7); Neutrophils % (A) 58 %; Platelet Count 316 k/uL (150-450); RBC 4.24 m/uL (3.80-5.40); WBC 7.7 k/uL (3.8-10.6)
[2021-04-17 20:34] LABS: ALT 10 U/L (4-34); AST 19 U/L (14-36); African American GFR (CKD) >90 (>60 ml/min/1.73 sqM); Albumin 3.8 g/dL (3.5-5.0); Alkaline Phosphatase 87 U/L (38-126); Amylase 52 U/L (30-110); Anion Gap 4 mmol/L; Blood Urea Nitrogen 13 mg/dL (7-17); Calcium 9.4 mg/dL (8.4-10.2); Carbon Dioxide 26 mmol/L (22-30); Chloride 111 mmol/L (98-107); Glucose 136 mg/dL (74-99); Lipase 142 U/L (23-300); Magnesium 1.9 mg/dL (1.6-2.3); Non-African American GFR(CKD) >90 (>60 ml/min/1.73 sqM); Sodium 141 mmol/L (137-145); Total Bilirubin <0.1 mg/dL (0.2-1.3); Total Protein 6.4 g/dL (6.3-8.2)
[2021-04-17 20:54] LABS: Potassium 3.9 mmol/L (3.5-5.1)
[2021-04-17] MEDS ORDERED: NALOXONE 0.4 MG/ML 1 ML VIAL IV PRN (21:35)
[2021-04-17] MEDS ORDERED: KETOROLAC 15 MG/ML 1 ML VIAL IVP PRN (21:35)
[2021-04-17] MEDS ORDERED: ONDANSETRON 4 MG/2 ML VIAL IVP PRN (21:35)
[2021-04-17] MEDS ORDERED: IBUPROFEN 400 MG TAB PO PRN (21:35)
[2021-04-17] MEDS ORDERED: ALBUTEROL NEBULIZED 2.5 MG/3 ML INHALATION PRN (21:39)
[2021-04-17] MEDS: MORPHINE SULFATE 4 MG/ML SYRINGE IV PRN (21:48)
[2021-04-17] MEDS: SODIUM CHLORIDE 0.9% 1,000 ML IV SCH (21:49)
--- NOTE | 2021-04-17 21:52 | ED ---
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 She states that The day today she has noticed worsening epigastric abdominal pain with radiation towards her back. This is her typical pancreatitis pain. This associated with nausea and nonbilious nonbloody emesis. She is unable tolerate by mouth intake. She hasn't chest pain, shortness breath, abdominal pain otherwise. She denies any urinary complaints or vaginal discharge or bleeding. She denies any diarrhea. She denies any new weakness or numbness. Patient is no other acute complaints at this time. Patient presented for evaluation her abdominal pain. She denies any fevers, chills, sick contacts. - Related Data Home Medications Medication Instructions Recorded Confirmed Atorvastatin [Lipitor] 40 mg PO HS 03/18/20 03/09/21 Albuterol Inhaler [Ventolin Hfa 2 puff INHALATION RT-Q4H PRN 06/21/20 03/09/21 Inhaler] Cholecalciferol [Vitamin D3 (25 50 mcg PO DAILY 07/26/20 03/09/21 Mcg = 1000 Iu)] amLODIPine BESYLATE/BENAZEPRIL 1 cap PO DAILY 09/09/20 03/09/21 [Lotrel 5-10 MG] Previous Rx's Medication Instructions Recorded Diphenoxylate HCl/Atropine 1 - 2 tab PO Q8H PRN #56 tab 03/09/21 [Lomotil 2.5-0.025 mg Tablet] Gabapentin [Neurontin] 400 mg PO TID #90 cap 03/09/21 HYDROcodone/APAP 10-325MG [Vernalis 1 tab PO Q6HR PRN 30 Days #120 tab 03/09/21 10-325] HYDROcodone/APAP 10-325MG [Vernalis 1 tab PO Q6HR PRN 30 Days #120 tab 03/09/21 10-325] Allergies Allergy/AdvReac Type Severity Reaction Status Date / Time No Known Allergies Allergy Verified 04/17/21 19:04 Review of Systems ROS Statement: Those systems with pertinent positive or pertinent negative responses have been documented in the HPI. Review of Systems: CONST: Denies fever EYES: Denies blurry vision ENT: Denies nasal congestion C/V: Denies Chest pain RESP: Denies shortness of breath GI: Endorses abdominal pain : Denies dysuria SKIN: Denies rash. MSK: Denies joint pain. NEURO: Denies headache ROS Other: All systems not noted in ROS Statement are negative. 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/hx fx l2, hx anemia, pancreatits History of Any Multi-Drug Resistant Organisms: None Reported Past Surgical History: Appendectomy, Back Surgery, Cholecystectomy, Orthopedic Surgery, Tonsillectomy Additional Past Surgical History / Comment(s): Pancreatic stents-since removed, 6 back surgeries with 2 fusions, right oophorectomy due to ectopic , EGD/colonoscopy, right leg alice inserted d/t fracture, BACK SURGERY-REMOVED OLD HARDWARE AND PUT IN NEW HARDWARE 09/28/20 Past Anesthesia/Blood Transfusion Reactions: No Reported Reaction Additional Past Anesthesia/Blood Transfusion Reaction / Comment(s): DIFF IV STARTS, Pt has received blood in past without reaction. Past Psychological History: No Psychological Hx Reported Smoking Status: Current every day smoker Past Alcohol Use History: None Reported Past Drug Use History: None Reported - Past Family History Father Family Medical History: Cancer Mother Family Medical History: Cancer, CVA/TIA Additional Family Medical History / Comment(s): breast and colon cancer. General Exam - General Exam Comments Initial Comments: General: Appears in mild distress secondary to abdominal discomfort. HEAD: Normal with no signs of head trauma. EYES: PERRLA, EOMI, conjunctiva normal, no discharge. ENT: Hearing grossly intact, normal oropharynx. RESPIRATORY: Clear breath sounds bilaterally. No wheezes, rales, or rhonchi. C/V: Regular rate and rhythm. S1 and S2 auscultated, no edema, peripheral pulses 2+ and intact throughout ABD: Abdomen is soft, nondistended. Patient does have some mild tightness p alpation in the epigastric region. She is no CVA tender to percussion. There is no rebound tenderness. There are no signs of peritonitis. Espinoza sign is negative. EXT: Normal range of motion, no obvious deformity SKIN: No rashes or lesions observed on exposed skin. NEURO: Alert and oriented 4. Chronic left-sided facial droop from prior CVA. Limitations: no limitations Course Vital Signs 04/17/21 04/17/21 04/17/21 19:01 20:04 21:39 Temperature 98.3 F Pulse Rate 92 88 Respiratory 20 18 Rate Blood Pressure 150/83 141/87 173/102 O2 Sat by Pulse 99 95 Oximetry Medical Decision Making - Medical Decision Making Based on the patient's presentation and physical exam, I do believe she is likely experiencing her chronic acute on chronic pancreatitis with intractable nausea and vomiting. I have low suspicion for other etiologies at this time, however we will obtain a screening EKG in addition to abdominal laboratory studies. Her last CT and pelvis was obtained in December and revealed no acute intra-abdominal process. I do not believe she requires a repeat at this time. vitals are stable. Patient was in agreement this plan. Patient's screening EKG showed normal sinus rhythm with no signs of acute ischemic process. Patient's laboratory studies are relatively unremarkable, with a lipase of 142. The remainder of her labs are unremarkable. On reevaluation come patient's pain is improved. Abdominal exam shows minimal tenderness to palpation in the epigastric region. However the patient did fail her by mouth challenge, having episodes of nonbilious nonbloody emesis. I discussed with the patient I would like to admit from the hospital for intractable nausea and vomiting. She was in agreement this plan. Patient remains nontoxic appearing. Abdominal exam remains unremarkable. Patient will therefore be admitted to an observation bed in stable condition for her intractable nausea and vomiting. I contacted the patient's admitting physician, Dr. Maurer who accepted the admission. - Lab Data Result diagrams: 04/17/21 20:16 04/17/21 20:16 Lab Results 04/17/21 04/17/21 Range/Units 20:16 20:16 WBC 7.7 (3.8-10.6) k/uL RBC 4.24 (3.80-5.40) m/uL Hgb 12.0 (11.4-16.0) gm/dL Hct 37.3 (34.0-46.0) % MCV 88.1 (80.0-100.0) fL MCH 28.4 (25.0-35.0) pg MCHC 32.2 (31.0-37.0) g/dL RDW 17.0 H (11.5-15.5) % Plt Count 316 (150-450) k/uL MPV 7.6 Neutrophils % 58 % Lymphocytes % 31 % Monocytes % 6 % Eosinophils % 3 % Basophils % 0 % Neutrophils # 4.5 (1.3-7.7) k/uL Lymphocytes # 2.3 (1.0-4.8) k/uL Monocytes # 0.4 (0-1.0) k/uL Eosinophils # 0.3 (0-0.7) k/uL Basophils # 0.0 (0-0.2) k/uL Anisocytosis Slight Sodium 141 (137-145) mmol/L Potassium 3.9 (3.5-5.1) mmol/L Chloride 111 H (98-107) mmol/L Carbon Dioxide 26 (22-30) mmol/L Anion Gap 4 mmol/L BUN 13 (7-17) mg/dL Creatinine 0.54 (0.52-1.04) mg/dL Est GFR (CKD-EPI)AfAm >90 (>60 ml/min/1.73 sqM) Est GFR (CKD-EPI)NonAf >90 (>60 ml/min/1.73 sqM) Glucose 136 H (74-99) mg/dL Calcium 9.4 (8.4-10.2) mg/dL Magnesium 1.9 (1.6-2.3) mg/dL Total Bilirubin <0.1 L (0.2-1.3) mg/dL AST 19 (14-36) U/L ALT 10 (4-34) U/L Alkaline Phosphatase 87 (38-126) U/L Total Protein 6.4 (6.3-8.2) g/dL Albumin 3.8 (3.5-5.0) g/dL Amylase 52 (30-110) U/L Lipase 142 (23-300) U/L - EKG Data -: EKG Interpreted by Me EKG Comments: 12-lead Electrocardiogram Interpretation Note EKG was reviewed and interpreted by myself. 12-lead ECG performed at 2008 is interpreted by me as revealing normal sinus rhythm at a rate of 74 beats per minute. [place] is normal.. Intervals 164 ms, QRS duration 72 ms, QTc is 481 ms.. There were no ST or T wave abnormalities to suggest myocardial ischemia or injury. R wave progression across the precordium was satisfactory. By my interpretation this EKG is non-diagnostic for acute ischemia. Disposition Clinical Impression: Intractable nausea and vomiting, Acute on chronic pancreatitis, Abdominal pain, epigastric, History of CVA (cerebrovascular accident) Disposition: ADMITTED IP TO THIS HOSP Condition: Stable Referrals: Toi Chin [Primary Care Provider] - 1-2 days
[2021-04-17 22:15] LABS: Amorphous Sediment,Urine Rare /hpf; Appearance,Urine Clear (Clear); Bacteria,Urine Rare /hpf; Bilirubin,Urine Negative (Negative); Blood,Urine Small (Negative); Color,Urine Light Yellow; Glucose,Urine (UA) Negative (Negative); Ketones,Urine Negative (Negative); Leukocyte Esterase,Urine Negative (Negative); Nitrite,Urine Negative (Negative); PH, Urine 6.5 (5.0-8.0); Protein,Urine Negative (Negative); RBC,Urine 10 /hpf (0-5); Specific Gravity,Urine 1.012 (1.001-1.035); Squamous Epithelial Cell,Urine <1 /hpf (0-4); Urobilinogen,Urine <2.0 mg/dL (<2.0); WBC,Urine 3 /hpf (0-5)
--- NOTE | 2021-04-18 00:35 | P.HPIM ---
History of Present Illness H&P Date: 04/18/21 The patient is a 65 yo F with a PMH of pancreatitis, COPD, hypertension, history of CVA with residual left-sided deficits including left facial droop and GERD who presented to the emergency room with complaints of abdominal pain. The patient reports that her pain started roughly 1-2 days ago, is typical of her pancreatitis bout, epigastric, 8 out of 10 at maximal intensity, radiating to the back, alleviated with laying in the position. She reports associated nausea and vomiting, too many episodes to count. Denied bloody emesis. Reports that she has been unable to eat or drink much due to her nausea. She otherwise denied any additional complaints. She denied fever, chills, chest pain, shortness of breath. Denied headaches, weakness, numbness. Review of systems: Pertinent positives and negatives as discussed in HPI, a complete review of systems was performed and all other systems are negative. Physical examination: General: non toxic, no distress, appears at stated age, normal weight Derm: no unusual rashes/lesions no unusual ecchymoses, warm, dry Head: atraumatic, normocephalic, symmetric Eyes: EOMI, no lid lag, anicteric sclera, pupils equal round reactive to light ENT: Nose and ears atraumatic, no thrush, no pharyngeal erythema Neck: No thyromegaly, no cervical lymphadenopathy, trachea midline, supple Mouth: no lip lesion, mucus membranes moist Cardiovascular: S1S2 reg, no murmur, positive posterior tibial pulse bilateral, no edema, capillary refill less than 2 seconds Lungs: CTA bilateral, no rhonchi, no rales , no accessory muscle use Abdominal: soft, mild epigastric tenderness palpation, no guarding, no appreciable organomegaly, normal bowel sounds Ext: no gross muscle atrophy, muscle strength 5 out of 5 in all 4 extremities grossly, no contractures, Neuro: CN II-XI grossly intact, light touch intact all 4 extremities, finger to nose within normal limits, Psych: Alert, oriented, appropriate affect Assessment/plan Intractable nausea and vomiting, epigastric abdominal pain -Suspected acute on chronic pancreatitis -Lipase within normal limits however -Continue with antiemetics and pain control for now -IV fluids -Suspect possible drug-seeking behavior as patient asking for Dilaudid despite resting comfortably in bed throughout the interview with mild to minimal tenderness on exam. Chronic conditions: Hypertension, COPD, history of CVA -Continue with home meds DVT prophylaxis -Heparin subq The patient is admitted with an anticipated less than 2 midnight stay for evaluation of nausea, vomiting. CODE STATUS: Full Code Discussed with: Patient Anticipated discharge date: in am Anticipated discharge place: Home 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/hx fx l2, hx anemia, pancreatits History of Any Multi-Drug Resistant Organisms: None Reported Past Surgical History: Appendectomy, Back Surgery, Cholecystectomy, Orthopedic Surgery, Tonsillectomy Additional Past Surgical History / Comment(s): Pancreatic stents-since removed, 6 back surgeries with 2 fusions, right oophorectomy due to ectopic , EGD/colonoscopy, right leg alice inserted d/t fracture, BACK SURGERY-REMOVED OLD HARDWARE AND PUT IN NEW HARDWARE 09/28/20 Past Anesthesia/Blood Transfusion Reactions: No Reported Reaction Additional Past Anesthesia/Blood Transfusion Reaction / Comment(s): DIFF IV STARTS, Pt has received blood in past without reaction. Past Psychological History: No Psychological Hx Reported Additional Psychological History / Comment(s): . Smoking Status: Current every day smoker Past Alcohol Use History: None Reported Additional Past Alcohol Use History / Comment(s): Pt started smoking in 1980 Past Drug Use History: None Reported Additional Drug Use History / Comment(s): . - Past Family History Father Family Medical History: Cancer Mother Family Medical History: Cancer, CVA/TIA Additional Family Medical History / Comment(s): breast and colon cancer. Medications and Allergies Home Medications Medication Instructions Recorded Confirmed Type amLODIPine BESYLATE/BENAZEPRIL 1 cap PO DAILY 09/09/20 04/17/21 History [Lotrel 5-10 MG] Diphenoxylate HCl/Atropine 1 - 2 tab PO Q8H PRN #56 tab 03/09/21 04/17/21 Rx [Lomotil 2.5-0.025 mg Tablet] Gabapentin [Neurontin] 400 mg PO TID #90 cap 03/09/21 04/17/21 Rx HYDROcodone/APAP 10-325MG [[place] 1 tab PO Q6HR PRN 30 Days #120 tab 03/09/21 04/17/21 Rx [id number]] Allergies Allergy/AdvReac Type Severity Reaction Status Date / Time No Known Allergies Allergy Verified 04/17/21 21:53 Physical Exam Vitals: Vital Signs Temp Pulse Pulse Resp BP BP Pulse Ox 04/17/21 22:13 98.5 F 62 18 155/87 96 04/17/21 22:00 92 16 5 L 04/17/21 21:57 144/92 04/17/21 21:39 173/102 04/17/21 20:04 88 18 141/87 95 04/17/21 19:01 98.3 F 92 20 150/83 99 Intake and Output 04/17/21 04/17/21 04/18/21 14:59 22:59 06:59 Other: Voiding Method Toilet Weight 57.1 kg Results CBC & Chem 7: 04/17/21 20:16 04/17/21 20:16 Labs: Abnormal Lab Results - Last 24 Hours (Table) 04/17/21 04/17/21 04/17/21 Range/Units 20:16 20:16 22:01 RDW 17.0 H (11.5-15.5) % Chloride 111 H (98-107) mmol/L Glucose 136 H (74-99) mg/dL Total Bilirubin <0.1 L (0.2-1.3) mg/dL Urine Blood Small H (Negative) Urine RBC 10 H (0-5) /hpf Amorphous Sediment Rare H (None) /hpf Urine Bacteria Rare H (None) /hpf Thrombosis Risk Factor Assmnt - Choose All That Apply Any of the Below Risk Factors Present?: Yes Each Factor Represents 1 point: Abnormal pulmonary function (COPD) Each Risk Factor Represents 3 Points: History of DVT/PE Thrombosis Risk Factor Assessment Total Risk Factor Score: 4 Thrombosis Risk Factor Assessment Level: Moderate Risk
[2021-04-18] MEDS: MORPHINE SULFATE 4 MG/ML SYRINGE IV PRN ×3 (01:27→08:09)
[2021-04-18] MEDS: SODIUM CHLORIDE 0.9% 1,000 ML IV SCH ×3 (04:58→21:01)
[2021-04-18] MEDS: HEPARIN SODIUM,PORCINE/PF 5,000 UNIT/0.5 ML SYRINGE SQ SCH ×3 (08:09→23:47)
[2021-04-18] MEDS: amLODIPine 5 MG TAB PO SCH (08:10)
[2021-04-18] MEDS: lisinopriL 10 MG TAB PO SCH (08:10)
[2021-04-18] MEDS ORDERED: NON FORMULARY DRUG (Amlodipine Besylate/Benazepril [Lotrel 5-10 Mg] 1 EACH Capsule) PO SCH (09:00)
[2021-04-18] MEDS ORDERED: HYDROmorphone 0.5 MG/0.5 ML SYRINGE IVP PRN (11:15)
--- NOTE | 2021-04-18 15:03 | CT ---
EXAMINATION TYPE: CT abdomen pelvis w con DATE OF EXAM: 04/18/2021 COMPARISON: 12/07/2020 HISTORY: left upper quadrant and epigastric pain CONTRAST: CT scan of the abdomen and pelvis is performed with Oral Contrast and with IV Contrast, patient injec danisha with 100 mL of Isovue 300. FINDINGS: LUNG BASES-: No visible nodule. No infiltrate. LIVER/GB: The gallbladder is surgically absent. There is intra and extrahepatic biliary ductal prom inence likely postoperative in nature. No space occupying hepatic lesion. Biliary tree is of normal caliber. PANCREAS: No inflammation. No distinct mass. SPLEEN: Atrophic and calcific changes of the pancreas compatible with chronic pancreatitis. ADRENALS: No nodule. No thickening. KIDNEYS/BLADDER: No hydronephrosis. No nephrolithiasis. No distinct renal mass. Urinary bladder g rossly unremarkable. BOWEL: Normal appendix. Normal bowel caliber. No inflammation. GENITAL ORGANS: No gross abnormality. LYMPH NODES: No greater than 1cm abdominal or pelvic lymph nodes are appreciated. AORTA: No significant abnormality. OSSEOUS STRUCTURES: Postoperative changes of the lumbar laminectomy and fusion. Pedicular screws thor acolumbar levels. OTHER: No significant additional abnormality is seen. IMPRESSION: 1. Atrophic and calcific changes of the pancreas compatible with chronic pancreatitis.
--- NOTE | 2021-04-18 15:48 | P.PN ---
Subjective Progress Note Date: 04/18/21 Hospital course: Patient is a 65-year-old female with a past medical history of CVA with left- sided deficits, hypertension, COPD, chronic pancreatitis, and GERD. She presented to the emergency department with a chief complaint of abdominal/epigastric pain accompanied by intractable nausea and vomiting. She was seen and fully evaluated in the emergency department with CBC, BMP, liver profile, and lipase all unremarkable. Lipase resulted at 142 with amylase of 52. Urinalysis was also negative for infection. Patient was admitted under our services for suspected acute on chronic pancreatitis with intractable nausea and vomiting. CT abdomen and pelvis with contrast completed showing atrophic and calcific changes to the pancreas compatible with chronic pancreatitis. Consult placed to GI for chronic pancreatitis with uncontrolled abdominal pain, nausea, and vomiting. Physical exam: Patient was seen and fully evaluated at the bedside this morning. She reports uncontrolled pain and has significant tenderness in left upper quadrant and epigastric region upon palpation. Patient reports persistent nausea and states pain is worse with oral intake. Orders place for CT abdomen and pelvis which resulted showing atrophic and calcific changes to the pancreas compatible with chronic pancreatitis. Patient made nothing by mouth, IV fluids infusing, changes made to pain medication regimen with Dilaudid as patient requested, in order placed for GI secondary to chronic pancreatitis with uncontrolled abdomina l pain, nausea, and vomiting. Patient denies any other complaints including headache, lightheadedness, dizziness, chest pain, palpitations, or shortness of breath. Vital signs reviewed and stable. General: Nontoxic, no distress and appears stated age. Derm: Skin warm and dry, normal coloration for ethnicity. Head: Atraumatic, normocephalic and symmetric. Eyes: EOMs intact, no lid lag, and anicteric sclera Mouth: no lip lesions, mucus membranes moist Cardiovascular: regular rate and rhythm with normal S1S2, no murmur, positive posterior tibial pulses bilaterally, and cap refill < 2 seconds. Lungs: Respirations even, regular, and unlabored on room air. Lungs CTA bilaterally, no rhonchi, no rales, no wheezing, and no accessory muscle usage. Abdominal: soft, nontender to palpation, no guarding, no appreciable organomegaly Ext: ROM intact. No gross muscle atrophy, no edema, no contractures Neuro: Speech clear, face symmetrical and CN II-XII grossly intact with no noted focal neuro deficits Psych: Alert and oriented to person, place, time, and situation. Appropriate and pleasant affect. Assessment and Plan of Care: Chronic pancreatitis with intractable abdominal/epigastric pain, nausea and vomiting -Lipase resulted at 142 with amylase of 52. -CT abdomen and pelvis with contrast completed showing atrophic and calcific changes to the pancreas compatible with chronic pancreatitis. -Consult placed to GI for chronic pancreatitis with uncontrolled abdominal pain, nausea, and vomiting. -Continue hydration with IV fluid -NPO -Antiemetics for nausea -Symptomatic care and pain management, concerns for drug-seeking behaviors. Hypertension Monitor vital signs and continue daily medication regimen with amlodipine and lisinopril. Hyperlipidemia Continue daily medication regimen with atorvastatin. COPD -Encourage use of incentive spirometer. -DuoNeb as needed for shortness of breath and/or wheezing. CODE STATUS: Full code DVT prophylaxis: Heparin Discussed with: Patient and RN Anticipated discharge date: Clinical course to determine Anticipated discharge place: Home A total of 35 minutes was spent on the care of this complex patient more than 50% of the time was spent in counseling and care coordination. Objective - Vital Signs Vital signs: Vital Signs Temp 98.1 F 04/18/21 08:21 Pulse 69 04/18/21 08:21 Resp 20 04/18/21 08:21 BP 150/95 04/18/21 08:21 Pulse Ox 97 04/18/21 08:21 Intake & Output 04/17/21 04/18/21 04/18/21 18:59 06:59 18:59 Intake Total 780 Balance 780 Weight 57.1 kg Intake: Intake, IV Titration 780 Amount Sodium Chloride 0.9% 1, 780 000 ml @ 130 mls/hr IV . Q7H42M [facility] Rx#:[id number] Other: Voiding Method Toilet # Voids 3 1 - Labs CBC & Chem 7: 04/17/21 20:16 04/17/21 20:16 Labs: Abnormal Lab Results - Last 24 Hours (Table) 04/17/21 04/17/21 04/17/21 Range/Units 20:16 20:16 22:01 RDW 17.0 H (11.5-15.5) % Chloride 111 H (98-107) mmol/L Glucose 136 H (74-99) mg/dL Total Bilirubin <0.1 L (0.2-1.3) mg/dL Urine Blood Small H (Negative) Urine RBC 10 H (0-5) /hpf Amorphous Sediment Rare H (None) /hpf Urine Bacteria Rare H (None) /hpf
[2021-04-18] MEDS: HYDROmorphone 0.5 MG/0.5 ML SYRINGE IVP PRN ×3 (15:58→23:46)
[2021-04-18] MEDS: ATORVASTATIN 40 MG TAB PO SCH (19:56)
[2021-04-19] MEDS: HYDROmorphone 0.5 MG/0.5 ML SYRINGE IVP PRN ×6 (03:45→23:52)
[2021-04-19] MEDS: SODIUM CHLORIDE 0.9% 1,000 ML IV SCH ×3 (05:21→20:42)
[2021-04-19 07:15] LABS: Anisocytosis Slight; Basophils # (A) 0.1 k/uL (0-0.2); Basophils % (A) 1 %; Eosinophils # (A) 0.4 k/uL (0-0.7); Eosinophils % (A) 6 %; HCT 38.3 % (34.0-46.0); HGB 12.3 gm/dL (11.4-16.0); Lymphocytes # (A) 2.2 k/uL (1.0-4.8); Lymphocytes % (A) 32 %; MCH 28.3 pg (25.0-35.0); MCV 88.3 fL (80.0-100.0); Mean Platelet Volume 7.2; Monocytes # (A) 0.3 k/uL (0-1.0); Monocytes % (A) 5 %; Neutrophils # (A) 3.7 k/uL (1.3-7.7); Neutrophils % (A) 54 %; Platelet Count 354 k/uL (150-450); RBC 4.34 m/uL (3.80-5.40); RDW 16.8 % (11.5-15.5); WBC 6.8 k/uL (3.8-10.6)
[2021-04-19] MEDS: HEPARIN SODIUM,PORCINE/PF 5,000 UNIT/0.5 ML SYRINGE SQ SCH ×3 (07:41→23:52)
[2021-04-19 07:42] LABS: ALT 10 U/L (4-34); AST 21 U/L (14-36); African American GFR (CKD) >90 (>60 ml/min/1.73 sqM); Albumin 3.9 g/dL (3.5-5.0); Alkaline Phosphatase 68 U/L (38-126); Anion Gap 6 mmol/L; Blood Urea Nitrogen 9 mg/dL (7-17); Calcium 9.4 mg/dL (8.4-10.2); Carbon Dioxide 26 mmol/L (22-30); Chloride 107 mmol/L (98-107); Glucose 115 mg/dL (74-99); Lipase 33 U/L (23-300); Non-African American GFR(CKD) >90 (>60 ml/min/1.73 sqM); Potassium 4.1 mmol/L (3.5-5.1); Sodium 139 mmol/L (137-145); Total Bilirubin 0.2 mg/dL (0.2-1.3); Total Protein 6.4 g/dL (6.3-8.2)
[2021-04-19] MEDS: amLODIPine 5 MG TAB PO SCH (09:45)
[2021-04-19] MEDS: lisinopriL 10 MG TAB PO SCH (09:45)
--- NOTE | 2021-04-19 15:38 | P.PN ---
<Alvin Ann - Last Filed: 04/19/21 15:32> Subjective Progress Note Date: 04/19/21 Hospital course: Patient is a 65-year-old female with a past medical history of CVA with left-s ided deficits, hypertension, COPD, chronic pancreatitis, and GERD. She presented to the emergency department with a chief complaint of abdominal/epigastric pain accompanied by intractable nausea and vomiting. She was seen and fully evaluated in the emergency department with CBC, BMP, liver profile, and lipase all unremarkable. Lipase resulted at 142 with amylase of 52. Urinalysis was also negative for infection. Patient was admitted under our services for suspected acute on chronic pancreatitis with intractable nausea and vomiting. CT abdomen and pelvis with contrast completed showing atrophic and calcific changes to the pancreas compatible with chronic pancreatitis. Consult placed to GI for chronic pancreatitis with uncontrolled abdominal pain, nausea, and vomiting. Physical exam: Patient was seen and fully evaluated at the bedside this morning. She reports continued uncontrolled pain and has significant tenderness in left upper quadr ant and epigastric region upon palpation. She denies having any further episodes of vomiting. States nausea is currently controlled. Per GI diet to be advanced to clear liquid at this time. Repeat lipase normal findings at 33. Patient denies any other complaints including headache, lightheadedness, dizziness, chest pain, palpitations, or shortness of breath. Vital signs reviewed and stable. General: Nontoxic, no distress and appears stated age. Derm: Skin warm and dry, normal coloration for ethnicity. Head: Atraumatic, normocephalic and symmetric. Eyes: EOMs intact, no lid lag, and anicteric sclera Mouth: no lip lesions, mucus membranes moist Cardiovascular: regular rate and rhythm with normal S1S2, no murmur, positive posterior tibial pulses bilaterally, and cap refill < 2 seconds. Lungs: Respirations even, regular, and unlabored on room air. Lungs CTA bilaterally, no rhonchi, no rales, no wheezing, and no accessory muscle usage. Abdominal: soft, tenderness upon palpation to left lower quadrant and epigastric region no guarding, no appreciable organomegaly Ext: ROM intact. No gross muscle atrophy, no edema, no contractures Neuro: Speech clear, face symmetrical and CN II-XII grossly intact with no noted focal neuro deficits Psych: Alert and oriented to person, place, time, and situation. Appropriate and pleasant affect. Assessment and Plan of Care: Chronic pancreatitis with intractable abdominal/epigastric pain, nausea and vomiting -Lipase resulted at 142 with repeat lipase of 33 -CT abdomen and pelvis with contrast completed showing atrophic and calcific changes to the pancreas compatible with chronic pancreatitis. -GI consulted for chronic pancreatitis with uncontrolled abdominal pain, nausea, and vomiting. Appreciate further recommendations. -Continue hydration with IV fluid -Advance diet to clear liquids -Antiemetics for nausea -Symptomatic care and pain management, concerns for drug-seeking behaviors. Hypertension Monitor vital signs and continue daily medication regimen with amlodipine and lisinopril. Hyperlipidemia Continue daily medication regimen with atorvastatin. COPD -Encourage use of incentive spirometer. -DuoNeb as needed for shortness of breath and/or wheezing. CODE STATUS: Full code DVT prophylaxis: Heparin Discussed with: Patient and RN Anticipated discharge date: Clinical course to determine Anticipated discharge place: Home A total of 35 minutes was spent on the care of this complex patient more than 50% of the time was spent in counseling and care coordination. Objective - Vital Signs Vital signs: Vital Signs Temp 97.8 F 04/19/21 08:29 Pulse 68 04/19/21 08:29 Resp 17 04/19/21 08:29 BP 116/69 04/19/21 08:29 Pulse Ox 96 04/19/21 08:29 Intake & Output 04/18/21 04/19/21 04/19/21 18:59 06:59 18:59 Intake Total 780 Balance 780 Intake: Intake, IV Titration 780 Amount Sodium Chloride 0.9% 1, 780 000 ml @ 130 mls/hr IV . Q7H42M [facility] Rx#:[id number] Other: Voiding Method Toilet # Voids 1 3 - Labs CBC & Chem 7: 04/19/21 07:00 04/19/21 07:00 Labs: Abnormal Lab Results - Last 24 Hours (Table) 04/19/21 04/19/21 Range/Units 07:00 07:00 RDW 16.8 H (11.5-15.5) % Creatinine 0.47 L (0.52-1.04) mg/dL Glucose 115 H (74-99) mg/dL <Kaylee Tavarez - Last Filed: 04/19/21 19:59> Subjective Alvin Ann NP rendered care for this patient independently, reviewed the findings and plan as documented in the note above. I did not physically speak with or examine the patient on this date. Objective - Vital Signs Vital signs: Vital Signs Temp 98.2 F 04/19/21 19:48 Pulse 74 04/19/21 19:48 Resp 18 04/19/21 19:48 BP 132/82 04/19/21 19:48 Pulse Ox 96 04/19/21 19:48 Intake & Output 04/19/21 04/19/21 04/20/21 06:59 18:59 06:59 Intake Total 780 2430 Balance 780 2430 Intake: Intake, IV Titration 780 1430 Amount Sodium Chloride 0.9% 1, 780 1430 000 ml @ 130 mls/hr IV . Q7H42M [facility] Rx#:[id number] Oral 1000 Other: Voiding Method Toilet # Voids 3 3 # Bowel Movements 2 - Labs CBC & Chem 7: 04/19/21 07:00 04/19/21 07:00 Labs: Abnormal Lab Results - Last 24 Hours (Table) 04/19/21 04/19/21 04/19/21 Range/Units 07:00 07:00 07:00 RDW 16.8 H (11.5-15.5) % Creatinine 0.47 L (0.52-1.04) mg/dL Glucose 115 H (74-99) mg/dL Triglycerides 205.0 H (0.0-149.0) mg/dL
--- NOTE | 2021-04-19 15:46 | P.CONS ---
History of Present Illness - Reason for Consult Consult date: 04/19/21 chronic pancreatitis Requesting physician: Alvin Ann - Chief Complaint abdominal pain, nausea and vomiting - History of Present Illness This is a 65-year-old white female with a history of chronic pancreatitis with frequent recurrence. Patient states she was diagnosed with her first episode of pancreatitis 10-12 years ago and has had multiple hospitalizations. Her last hospitalization she states was 2 months ago. Patient is unsure of her cause of pancreatitis. States she did have her gallbladder removed about 9 years ago. She does not follow with anybody for her pancreatitis. She denies any history of alcohol abuse, no family history of pancreatitis, no new medications. states her symptoms started 3-4 days ago as sudden sharp pain in the epigastric and right upper quadrant. She had associated nausea and vomiting. States she has not had any further vomiting for 2 days now. She has a smoker and has a past medical history of COPD, hypertension, history of CVA with residual left- sided deficits and a history of acid reflux who is status post Chuckie fundoplication. The patient's last EGD was 02/06/2020 by at showed antral gastritis, small hiatal hernia and esophagitis. She underwent the knees and fundoplication on 02/25/2020. She denies ever having a colonoscopy. She rates her pain a 9 out of 10. States her bowel movements are normal. Had one today. She denies ever having any workup for her pancreatitis or follow-up. Presenting labs WBC 6.8, hemoglobin 12, hematocrit 38, platelet count 334,000, amylase 52, lipase 142 which has now come down to 33, total bilirubin 0.2, alkaline phosphatase 68, AST 21, ALT 10. She had a CT of the abdomen and pelvis that shows atrophic and calcific changes of the pancreas compatible with chronic pancreatitis. She denies any fevers or chills. Review of Systems REVIEW OF SYSTEMS: CARDIOPULMONARY: No chest pain or shortness of breath. Gastrointestinal: Right upper quadrant and epigastric pain. No nausea or vomiting. No hematemesis, coffee-ground emesis. No rectal bleeding, or melena. GENITOURINARY: No dysuria or hematuria. MUSCULOSKELETAL: Reports normal range of motion., Joint pain. SKIN: No rashes. No jaundice. ENDOCRINE: No chills, fevers. No excessive weight gain or loss. No polydipsia or polyuria. PSYCHIATRIC: Unremarkable. NEUROLOGY: No change in mental status. Denies dizziness, headache. ENT: Vision unremarkable. CONSTITUTIONAL: No recent weight loss. No fever, chills, night sweats. 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/hx fx l2, hx anemia, pancreatits History of Any Multi-Drug Resistant Organisms: None Reported Past Surgical History: Appendectomy, Back Surgery, Cholecystectomy, Orthopedic Surgery, Tonsillectomy Additional Past Surgical History / Comment(s): Pancreatic stents-since removed, 6 back surgeries with 2 fusions, right oophorectomy due to ectopic , EGD/colonoscopy, right leg alice inserted d/t fracture, BACK SURGERY-REMOVED OLD HARDWARE AND PUT IN NEW HARDWARE 09/28/20 Past Anesthesia/Blood Transfusion Reactions: No Reported Reaction Additional Past Anesthesia/Blood Transfusion Reaction / Comm: DIFF IV STARTS, Pt has received blood in past without reaction. Past Psychological History: No Psychological Hx Reported Additional Psychological History / Comment(s): . Smoking Status: Current every day smoker Past Alcohol Use History: None Reported Additional Past Alcohol Use History / Comment(s): Pt started smoking in 1980 Past Drug Use History: None Reported Additional Drug Use History / Comment(s): . - Past Family History Father Family Medical History: Cancer Mother Family Medical History: Cancer, CVA/TIA Additional Family Medical History / Comment(s): breast and colon cancer. Medications and Allergies Home Medications Medication Instructions Recorded Confirmed Type amLODIPine BESYLATE/BENAZEPRIL 1 cap PO DAILY 09/09/20 04/17/21 History [Lotrel 5-10 MG] Diphenoxylate HCl/Atropine 1 - 2 tab PO Q8H PRN #56 tab 03/09/21 04/17/21 Rx [Lomotil 2.5-0.025 mg Tablet] Gabapentin [Neurontin] 400 mg PO TID #90 cap 03/09/21 04/17/21 Rx HYDROcodone/APAP 10-325MG [[place] 1 tab PO Q6HR PRN 30 Days #120 tab 03/09/21 04/17/21 Rx 10-325] Allergies Allergy/AdvReac Type Severity Reaction Status Date / Time No Known Allergies Allergy Verified 04/17/21 21:53 Physical Exam Vitals: Vital Signs Temp Pulse Resp BP Pulse Ox 04/19/21 01:34 97.9 F 55 L 16 136/83 97 04/18/21 19:50 98.4 F 63 18 156/85 100 04/18/21 14:10 98.0 F 81 18 143/84 97 Intake and Output 04/18/21 04/19/21 04/19/21 22:59 06:59 14:59 Intake Total 780 Balance 780 Intake: Intake, IV Titration 780 Amount Sodium Chloride 0.9% 1, 780 000 ml @ 130 mls/hr IV . Q7H42M [facility] Rx#:[id number] Other: Voiding Method Toilet # Voids 3 General appearance: The patient is alert, oriented, appears in no acute distress. HET: Head is normocephalic and atraumatic. Conjunctiva pink. Sclera anicteric. Neck: Supple without lymphadenopathy. Trachea midline. Heart: S1 S2. Regular rate and rhythm. Lungs: Clear to auscultation. Abdomen: Soft, right upper quadrant and epigastric tenderness, nondistended with bowel sounds. No guarding or rigidity. Skin: No rashes. No jaundice. Extremities: Normal skin color and turgor. No pedal edema. Neurological: No focal deficits. Alert and oriented 3.. Results CBC & Chem 7: 04/19/21 07:00 04/19/21 07:00 Labs: Abnormal Lab Results - Last 24 Hours (Table) 04/19/21 04/19/21 Range/Units 07:00 07:00 RDW 16.8 H (11.5-15.5) % Creatinine 0.47 L (0.52-1.04) mg/dL Glucose 115 H (74-99) mg/dL CT scan - abdomen: report reviewed (Atrophic and calcific changes of the pancreas compatible with chronic pancreatitis) Assessment and Plan (1) Acute on chronic pancreatitis Narrative/Plan: Exceed 5-year-old female who presented to the emergency department with complaints of right upper quadrant and epigastric pain that began 3-4 days ago with a history of chronic relapsing pancreatitis. Patient states her first episode of pancreatitis was 10-12 years ago. She is unsure of reason why she has pancreatitis, she has not followed up with any specialist. Denies any workup for her pancreatitis. Does state that she had her gallbladder removed about 9 years ago for gallstones. She denies any history of alcohol abuse, no family history of pancreatitis, no new medications. She has a current smoker. She has been rating her pain a 9 out of 10. She had nausea and vomiting but none for 2 days now. She does have a history of gastroesophageal reflux disease and underwent EGD in February 2020 with findings of antral gastritis, small hiatal hernia, and esophagitis and underwent ascending fundoplication 02/25/[address] Amaya. Unclear etiology of pancreatitis. Will order autoimmune workup. Will recommend outpatient follow-up with EUS. Current Visit: Yes Status: Acute Code(s): K85.90 - ACUTE PANCREATITIS WITHOUT NECROSIS OR INFECTION, UNSP; K86.1 - OTHER CHRONIC PANCREATITIS SNOMED Code(s): 407798957 Plan: 1. Continue symptomatic and supportive care 2. Pain medications as needed 3. Aggressive IV hydration 4. Patient may have clear liquid diet, advance as tolerated 5. Encourage ambulation 6. IgG 4, and 8, triglycerides ordered 7. Protonix 40 mg twice a day 8. Recommend outpatient follow-up for possible EUS Thank you for this consultation, we will continue to follow. Dr. Kate Clark I agree with the dictator's note, documented as a scribe by Jade Burrell.
[2021-04-19] MEDS: ATORVASTATIN 40 MG TAB PO SCH (20:40)
[2021-04-20] MEDS: HEPARIN SODIUM,PORCINE/PF 5,000 UNIT/0.5 ML SYRINGE SQ SCH ×2 (00:09→07:57)
[2021-04-20] MEDS: HYDROmorphone 0.5 MG/0.5 ML SYRINGE IVP PRN ×2 (04:05→07:58)
[2021-04-20 04:10] VITALS: RESP 16
[2021-04-20] MEDS: SODIUM CHLORIDE 0.9% 1,000 ML IV SCH ×2 (07:17→11:58)
--- NOTE | 2021-04-20 07:45 | P.PN ---
Subjective Progress Note Date: 04/20/21 Principal diagnosis: Pancreatitis 65-year-old female who was admitted multiple times for chronic relapsing pancreatitis. Patient has had no previous workup or follow-up with specialist. Unsure of etiology of pancreatitis, states had gallbladder removed approximately 9 years ago. She came in with complaints of abdominal pain mostly in the right upper quadrant region, nausea and vomiting. Symptoms have resolve with nausea and vomiting. She is having normal bowel movements. States she is still having right upper quadrant pain. She has been on a clear liquid diet and tolerating well. Been afebrile. Objective - Vital Signs Vital signs: Vital Signs Temp 98 F 04/20/21 02:00 Pulse 76 04/20/21 02:00 Resp 16 04/20/21 02:00 BP 119/75 04/20/21 02:00 Pulse Ox 96 04/20/21 02:00 Intake & Output 04/19/21 04/20/21 04/20/21 18:59 06:59 18:59 Intake Total 2430 Balance 2430 Intake: Intake, IV Titration 1430 Amount Sodium Chloride 0.9% 1, 1430 000 ml @ 130 mls/hr IV . Q7H42M [facility] Rx#:[id number] Oral 1000 Other: # Voids 3 1 # Bowel Movements 2 - Exam General appearance: The patient is alert, oriented, appears in no acute distress. HET: Head is normocephalic and atraumatic. Conjunctiva pink. Sclera anicteric. Neck: Supple without lymphadenopathy. Abdomen: Soft, right upper quadrant tenderness, nondistended with bowel sounds. No guarding or rigidity. Extremities: Normal skin color and turgor. No pedal edema Skin: No rashes, no jaundice Neurological: No focal deficits. Alert and oriented 3. - Labs CBC & Chem 7: 04/19/21 07:00 04/19/21 07:00 Labs: Abnormal Lab Results - Last 24 Hours (Table) 04/19/21 Range/Units 07:00 Triglycerides 205.0 H (0.0-149.0) mg/dL Assessment and Plan (1) Acute on chronic pancreatitis Narrative/Plan: Exceed 5-year-old female who presented to the emergency department with complaints of right upper quadrant and epigastric pain that began 3-4 days ago with a history of chronic relapsing pancreatitis. Patient states her first episode of pancreatitis was 10-12 years ago. She is unsure of reason why she has pancreatitis, she has not followed up with any specialist. Denies any workup for her pancreatitis. Does state that she had her gallbladder removed about 9 years ago for gallstones. She denies any history of alcohol abuse, no family history of pancreatitis, no new medications. She has a current smoker. She has been rating her pain a 9 out of 10. She had nausea and vomiting but none for 2 days now. She does have a history of gastroesophageal reflux disease and underwent EGD in February 2020 with findings of antral gastritis, small hiatal hernia, and esophagitis and underwent ascending fundoplication 02/25/[address] Amaya. Unclear etiology of pancreatitis. Will order autoimmune workup. Will recommend outpatient follow-up with EUS. Current Visit: Yes Status: Acute Code(s): K85.90 - ACUTE PANCREATITIS WITHOUT NECROSIS OR INFECTION, UNSP; K86.1 - OTHER CHRONIC PANCREATITIS SNOMED Code(s): 558168340 Plan: 1. Continue symptomatic and supportive care 2. Pain medications as needed 3. Aggressive IV hydration 4. Advance diet as tolerated 5. Encourage ambulation 6. IgG 4, and 8, triglycerides ordered 7. Protonix 40 mg twice a day 8. Discussed importance of follow-up with gastroenterology with patient in 2-3 weeks, Recommend outpatient follow-up for possible EUS Thank you for this consultation, patient is cleared for discharge from gastroenterology. Dr. Kate Clark I agree with the dictator's note, documented as a scribe by Jade Burrell.
[2021-04-20] MEDS: amLODIPine 5 MG TAB PO SCH (08:40)
[2021-04-20] MEDS: lisinopriL 10 MG TAB PO SCH (08:40)
[2021-04-20 08:44] VITALS: BP 154/81; PULSE 61; TEMP 97.6
--- NOTE | 2021-04-20 11:39 | P.DS ---
<Alvin Ann - Last Filed: 04/20/21 11:39> Providers Expected date of discharge: 04/20/21 Hospital Course: Discharge Diagnosis: Chronic pancreatitis Intractable nausea and vomiting, resolved Hypertension Hypertriglyceridemia COPD Hospital Course: Patient is a 65-year-old female with a past medical history of CVA with left- sided deficits, hypertension, COPD, chronic pancreatitis, and GERD. She prese nted to the emergency department with a chief complaint of abdominal/epigastric pain accompanied by intractable nausea and vomiting. She was seen and fully evaluated in the emergency department with CBC, BMP, liver profile, and lipase all unremarkable. Lipase resulted at 142 with repeat lipase of 33. Urinalysis was also negative for infection. Patient was admitted under our services for suspected acute on chronic pancreatitis with intractable nausea and vomiting. CT abdomen and pelvis with contrast completed showing atrophic and calcific changes to the pancreas compatible with chronic pancreatitis. Consult placed to GI for chronic pancreatitis with uncontrolled abdominal pain, nausea, and vomiting. Triglyceride level was obtained resulting in 205. Patient was started on atorvastatin 40 mg nightly. ADAN was also drawn with negative results. Patient reports that her pain has improved but still remains. She has been ambulatory without any difficulties and has been tolerating oral intake without any further episodes of vomiting since arrival to facility. She has been seen and evaluated by GI and they have recommended for her to follow a low-fat diet, take Protonix twice daily, and follow-up outpatient in their office for recommended further evaluation regarding performing a potential outpatient EUS. With the exception of elevated triglyceride levels, labs have remained unremarkable throughout hospitalization. Patient shows no signs of acute distress at this time and is medically stable for discharge home. Patient educated on medications she is being discharged home on including atorvastatin and Protonix. Patient also educated about the importance of following up outpatient as recommended with both her primary care doctor and social economist. Physical exam: Patient was seen and fully evaluated at the bedside this morning. She reports improvement of left upper quadrant pain and epigastric pain but states it still remains slightly.. She continues to deny having any further episodes of vomiting since arrival to facility. She has been tolerating oral intake and has had normal bowel function. Patient denies any other complaints including headache, lightheadedness, dizziness, chest pain, palpitations, or shortness of breath. Vital signs reviewed and stable. General: Nontoxic, no distress and appears stated age. Derm: Skin warm and dry, normal coloration for ethnicity. Head: Atraumatic, normocephalic and symmetric. Eyes: EOMs intact, no lid lag, and anicteric sclera Mouth: no lip lesions, mucus membranes moist Cardiovascular: regular rate and rhythm with normal S1S2, no murmur, positive posterior tibial pulses bilaterally, and cap refill < 2 seconds. Lungs: Respirations even, regular, and unlabored on room air. Lungs CTA bilaterally, no rhonchi, no rales, no wheezing, and no accessory muscle usage. Abdominal: soft, reported tenderness upon palpation to left lower quadrant and epigastric region. Patient showed no signs of acute distress and displayed no guarding. No appreciable organomegaly. Ext: ROM intact. No gross muscle atrophy, no edema, no contractures Neuro: Speech clear, face symmetrical and CN II-XII grossly intact with no noted focal neuro deficits Psych: Alert and oriented to person, place, time, and situation. Appropriate and pleasant affect. A total of 45 minutes of time were spent preparing this complex discharge summary. Patient Condition at Discharge: Stable Plan - Discharge Summary Discharge Rx Participant: Yes New Discharge Prescriptions: New Atorvastatin [Lipitor] 40 mg PO HS 30 Days #30 tab Pantoprazole [Protonix] 40 mg PO BID 30 Days #60 tablet.dr Continue amLODIPine BESYLATE/BENAZEPRIL [Lotrel 5-10 MG] 1 cap PO DAILY Diphenoxylate HCl/Atropine [Lomotil 2.5-0.025 mg Tablet] 1 - 2 tab PO Q8H PRN #56 tab PRN Reason: Diarrhea Gabapentin [Neurontin] 400 mg PO TID #90 cap HYDROcodone/APAP 10-325MG [[place] 10-325] 1 tab PO Q6HR PRN 30 Days #120 tab PRN Reason: Pain Discharge Medication List amLODIPine BESYLATE/BENAZEPRIL [Lotrel 5-10 MG] 1 cap PO DAILY 09/09/20 [History] Diphenoxylate HCl/Atropine [Lomotil 2.5-0.025 mg Tablet] 1 - 2 tab PO Q8H PRN #56 tab 03/09/21 [Rx] Gabapentin [Neurontin] 400 mg PO TID #90 cap 03/09/21 [Rx] HYDROcodone/APAP 10-325MG [[place] 10-325] 1 tab PO Q6HR PRN 30 Days #120 tab 03/09/21 [Rx] Atorvastatin [Lipitor] 40 mg PO HS 30 Days #30 tab 04/20/21 [Rx] Pantoprazole [Protonix] 40 mg PO BID 30 Days #60 tablet. 04/20/21 [Rx] Follow up Appointment(s)/Referral(s): Zoya Clark MD [STAFF PHYSICIAN] - 05/10/21 (Dr Clark will see you at [facility]. Dr Clark's office will call you the day before with a time and to answer any questions you may have. ) Toi Chin [Primary Care Provider] - 04/21/21 9:00 am Patient Instructions/Handouts: Low Fat Diet (DC) Activity/Diet/Wound Care/Special Instructions: Activity: As tolerated Diet: Low-fat diet Special Instructions: You are being discharged home and strongly advised to follow-up outpatient as scheduled with your primary care provider, Dr. Chin as well as the social economist, Dr. Clark. Your triglyceride levels were elevated at 205, it is important for you to follow a low-fat diet and you have been started on a lipid-lowering medication called atorvastatin. It is recommended that you take 1 tablet by mouth every night while following the recommended low-fat diet. Discharge Disposition: HOME SELF-CARE <Kaylee Tavarez - Last Filed: 04/20/21 20:16> Providers Date of admission: 04/19/21 08:14 Attending physician: Chanel Maurer MD Consults: 04/18/21 15:36 Consult Physician Routine Consulting Provider: Zoya Clark Consult Reason/Comments: chronic pancreatitis, uncontrolled pain n/v Do you want consulting provider notified?: Yes Primary care physician: [facility] Hospital Course: Alvin Ann NP rendered care for this patient independently, reviewed the findings and plan as documented in the note above. I did not physically speak with or examine the patient on this date.
[2021-04-20 14:31] LABS: IgG Subclass 3 47.4 mg/dL (11.0-85.0); IgG Subclass 4 47.4 mg/dL (3.0-175.0)
== END 2021-04-20 12:49 | disposition home or self-care (01) | DRG 439 ==
LOC: EC 18:59 → 6PED 21:39 → OBSVTOIN 04-19 08:14
PROVIDERS: ADMIT Internal Medicine; ATTEND Internal Medicine
DX: K86.1 Other chronic pancreatitis (principal); I69.354 Hemiplegia and hemiparesis following cerebral infarction affecting left non-dominant side; J44.9 Chronic obstructive pulmonary disease, unspecified; E78.1 Pure hyperglyceridemia; D64.9 Anemia, unspecified; F17.210 Nicotine dependence, cigarettes, uncomplicated; I10 Essential (primary) hypertension; Z79.899 Other long term (current) drug therapy; Z90.49 Acquired absence of other specified parts of digestive tract; Z90.721 Acquired absence of ovaries, unilateral; K21.9 Gastro-esophageal reflux disease without esophagitis; Z87.19 Personal history of other diseases of the digestive system
CPT/HCPCS: 36415; 74177; 80053; 81001; 82150; 82787; 83690; 83735; 84478; 85025; 86038; 93005; 96361; 96374; 96375; 99285

== ENCOUNTER 2021-04-22 10:29 | Emergency (ER) | payer BC ==
[2021-04-22 10:46] VITALS: TEMP 98.2
[2021-04-22] MEDS ORDERED: SODIUM CHLORIDE 0.9% 1,000 ML IV STA (11:31)
[2021-04-22] MEDS ORDERED: HYDROmorphone 1 MG/ML 1 ML SYRINGE IVP STA (11:31)
[2021-04-22] MEDS ORDERED: SODIUM CHLORIDE 0.9% 500 ML 500 ML IV STA (11:31)
[2021-04-22 11:48] LABS: Anisocytosis Slight; Basophils # (A) 0.1 k/uL (0-0.2); Basophils % (A) 1 %; Eosinophils # (A) 0.3 k/uL (0-0.7); Eosinophils % (A) 4 %; HCT 42.6 % (34.0-46.0); HGB 13.4 gm/dL (11.4-16.0); Lymphocytes # (A) 2.1 k/uL (1.0-4.8); Lymphocytes % (A) 28 %; MCH 27.9 pg (25.0-35.0); MCHC 31.5 g/dL (31.0-37.0); MCV 88.6 fL (80.0-100.0); Mean Platelet Volume 7.4; Monocytes # (A) 0.4 k/uL (0-1.0); Monocytes % (A) 5 %; Neutrophils # (A) 4.6 k/uL (1.3-7.7); Neutrophils % (A) 61 %; Platelet Count 436 k/uL (150-450); RBC 4.81 m/uL (3.80-5.40); RDW 16.5 % (11.5-15.5); WBC 7.6 k/uL (3.8-10.6)
[2021-04-22 12:05] LABS: ALT 25 U/L (4-34); AST 33 U/L (14-36); African American GFR (CKD) >90 (>60 ml/min/1.73 sqM); Albumin 4.6 g/dL (3.5-5.0); Alkaline Phosphatase 78 U/L (38-126); Amylase 66 U/L (30-110); Anion Gap 12 mmol/L; Blood Urea Nitrogen 14 mg/dL (7-17); Calcium 10.2 mg/dL (8.4-10.2); Carbon Dioxide 23 mmol/L (22-30); Chloride 104 mmol/L (98-107); Glucose 120 mg/dL (74-99); Lipase 132 U/L (23-300); Non-African American GFR(CKD) >90 (>60 ml/min/1.73 sqM); Potassium 4.6 mmol/L (3.5-5.1); Sodium 139 mmol/L (137-145); Total Bilirubin 0.1 mg/dL (0.2-1.3); Total Protein 7.6 g/dL (6.3-8.2)
[2021-04-22 13:04] LABS: Appearance,Urine Cloudy (Clear); Bilirubin,Urine Negative (Negative); Blood,Urine Large (Negative); Color,Urine Yellow; Glucose,Urine (UA) Negative (Negative); Ketones,Urine Negative (Negative); Leukocyte Esterase,Urine Small (Negative); Mucus,Urine Rare /hpf; Nitrite,Urine Negative (Negative); Protein,Urine Trace (Negative); RBC,Urine 9 /hpf (0-5); Squamous Epithelial Cell,Urine 3 /hpf (0-4); Urobilinogen,Urine <2.0 mg/dL (<2.0); WBC,Urine 2 /hpf (0-5)
[2021-04-22 13:07] VITALS: BP 125/71; PULSE 89; RESP 16
--- NOTE | 2021-04-22 13:47 | ED ---
Abdominal Pain HPI - General Chief Complaint: Abdominal Pain Stated Complaint: pancreatitis Time Seen by Provider: 04/22/21 11:29 Source: patient, RN notes reviewed Mode of arrival: wheelchair Limitations: no limitations - History of Present Illness Initial Comments: This a 65-year-old female presents emergency Department chief complaint abdominal pain. Patient has chronic pancreatitis. Patient states she was recently admitted and discharged. Patient started having nausea vomiting increasing pain. Patient reports no fevers or chills no chest pain or shortness of breath. Patient has no problems with bowel movements including diarrhea constipation no hematuria no dysuria. Patient offers no other complaints. - Related Data Home Medications Medication Instructions Recorded Confirmed amLODIPine BESYLATE/BENAZEPRIL 1 cap PO DAILY 09/09/20 04/22/21 [Lotrel 5-10 MG] Previous Rx's Medication Instructions Recorded Diphenoxylate HCl/Atropine 1 - 2 tab PO Q8H PRN #56 tab 03/09/21 [Lomotil 2.5-0.025 mg Tablet] Gabapentin [Neurontin] 400 mg PO TID #90 cap 03/09/21 HYDROcodone/APAP 10-325MG [[place] 1 tab PO Q6HR PRN 30 Days #120 tab 03/09/21 10-325] Atorvastatin [Lipitor] 40 mg PO HS 30 Days #30 tab 04/20/21 Pantoprazole [Protonix] 40 mg PO BID 30 Days #60 tablet. 04/20/21 Allergies Allergy/AdvReac Type Severity Reaction Status Date / Time No Known Allergies Allergy Verified 04/22/21 11:43 Review of Systems ROS Statement: Those systems with pertinent positive or pertinent negative responses have been documented in the HPI. ROS Other: All systems not noted in ROS Statement are negative. 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/hx fx l2, hx anemia, pancreatits History of Any Multi-Drug Resistant Organisms: None Reported Past Surgical History: Appendectomy, Back Surgery, Cholecystectomy, Orthopedic Surgery, Tonsillectomy Additional Past Surgical History / Comment(s): Pancreatic stents-since removed, 6 back surgeries with 2 fusions, right oophorectomy due to ectopic , EGD/colonoscopy, right leg alice inserted d/t fracture, BACK SURGERY-REMOVED OLD HARDWARE AND PUT IN NEW HARDWARE 09/28/20 Past Anesthesia/Blood Transfusion Reactions: No Reported Reaction Additional Past Anesthesia/Blood Transfusion Reaction / Comment(s): DIFF IV STARTS, Pt has received blood in past without reaction. Past Psychological History: No Psychological Hx Reported Smoking Status: Current every day smoker Past Alcohol Use History: None Reported Past Drug Use History: None Reported - Past Family History Father Family Medical History: Cancer Mother Family Medical History: Cancer, CVA/TIA Additional Family Medical History / Comment(s): breast and colon cancer. General Exam Limitations: no limitations General appearance: alert, in no apparent distress Head exam: Present: atraumatic, normocephalic, normal inspection Neck exam: Present: normal inspection, full ROM. Absent: tenderness, meningismus, lymphadenopathy Respiratory exam: Present: normal lung sounds bilaterally. Absent: respiratory distress, wheezes, rales, rhonchi, stridor Cardiovascular Exam: Present: regular rate, normal rhythm, normal heart sounds. Absent: systolic murmur, diastolic murmur, rubs, gallop, clicks GI/Abdominal exam: Present: soft, tenderness, normal bowel sounds. Absent: distended, guarding, rebound, rigid Course Vital Signs 04/22/21 04/22/21 10:39 13:06 Temperature 98.2 F Pulse Rate 79 89 Respiratory 18 16 Rate Blood Pressure 124/71 125/71 O2 Sat by Pulse 99 99 Oximetry Medical Decision Making - Medical Decision Making 65-year-old female presented for negative patient discharged in stable condition patient was well hydrated. - Lab Data Result diagrams: 04/22/21 11:38 04/22/21 11:38 Lab Results 04/22/21 04/22/21 04/22/21 Range/Units 11:38 11:38 11:53 WBC 7.6 (3.8-10.6) k/uL RBC 4.81 (3.80-5.40) m/uL Hgb 13.4 (11.4-16.0) gm/dL Hct 42.6 (34.0-46.0) % MCV 88.6 (80.0-100.0) fL MCH 27.9 (25.0-35.0) pg MCHC 31.5 (31.0-37.0) g/dL RDW 16.5 H (11.5-15.5) % Plt Count 436 (150-450) k/uL MPV 7.4 Neutrophils % 61 % Lymphocytes % 28 % Monocytes % 5 % Eosinophils % 4 % Basophils % 1 % Neutrophils # 4.6 (1.3-7.7) k/uL Lymphocytes # 2.1 (1.0-4.8) k/uL Monocytes # 0.4 (0-1.0) k/uL Eosinophils # 0.3 (0-0.7) k/uL Basophils # 0.1 (0-0.2) k/uL Anisocytosis Slight Sodium 139 (137-145) mmol/L Potassium 4.6 (3.5-5.1) mmol/L Chloride 104 (98-107) mmol/L Carbon Dioxide 23 (22-30) mmol/L Anion Gap 12 mmol/L BUN 14 (7-17) mg/dL Creatinine 0.65 (0.52-1.04) mg/dL Est GFR (CKD-EPI)AfAm >90 (>60 ml/min/1.73 sqM) Est GFR (CKD-EPI)NonAf >90 (>60 ml/min/1.73 sqM) Glucose 120 H (74-99) mg/dL Calcium 10.2 (8.4-10.2) mg/dL Total Bilirubin 0.1 L (0.2-1.3) mg/dL AST 33 (14-36) U/L ALT 25 (4-34) U/L Alkaline Phosphatase 78 (38-126) U/L Total Protein 7.6 (6.3-8.2) g/dL Albumin 4.6 (3.5-5.0) g/dL Amylase 66 (30-110) U/L Lipase 132 (23-300) U/L Urine Color Yellow Urine Appearance Cloudy H (Clear) Urine pH 7.0 (5.0-8.0) Ur Specific [place] 1.020 (1.001-1.035) Urine Protein Trace H (Negative) Urine Glucose (UA) Negative (Negative) Urine Ketones Negative (Negative) Urine Blood Large H (Negative) Urine Nitrite Negative (Negative) Urine Bilirubin Negative (Negative) Urine Urobilinogen <2.0 (<2.0) mg/dL Ur Leukocyte Esterase Small H (Negative) Urine RBC 9 H (0-5) /hpf Urine WBC 2 (0-5) /hpf Ur Squamous Epith Cells 3 (0-4) /hpf Urine Mucus Rare H (None) /hpf Disposition Clinical Impression: Abdominal pain Disposition: HOME SELF-CARE Condition: Stable Instructions (If sedation given, give patient instructions): Abdominal Pain (ED) Additional Instructions: Please return to the Emergency Department if symptoms worsen or any other concerns. Is patient prescribed a controlled substance at d/c from ED?: No Referrals: Toi Chin [Primary Care Provider] - 1-2 days Time of Disposition: 13:46
[2021-04-22] MEDS ORDERED: diphenhydrAMINE 50 MG/ML 1 ML VIAL IVP STA (13:53)
[2021-04-22] MEDS ORDERED: ONDANSETRON 4 MG/2 ML VIAL IVP STA (13:53)
[2021-04-22] MEDS ORDERED: HYDROmorphone 0.5 MG/0.5 ML SYRINGE IVP STA (13:53)
[2021-04-22] MEDS ORDERED: ACET/COD 300 MG/30 MG STARTER PACK 6 TAB BTL PO STA (14:22)
== END 2021-04-22 14:36 | disposition home or self-care (01) ==
LOC: EC 10:29
DX: R10.9 Unspecified abdominal pain (principal); R11.2 Nausea with vomiting, unspecified; I10 Essential (primary) hypertension; J44.9 Chronic obstructive pulmonary disease, unspecified; K21.9 Gastro-esophageal reflux disease without esophagitis; M19.90 Unspecified osteoarthritis, unspecified site; F17.200 Nicotine dependence, unspecified, uncomplicated; Z86.73 Personal history of transient ischemic attack (TIA), and cerebral infarction without residual deficits; Z87.59 Personal history of other complications of pregnancy, childbirth and the puerperium; Z90.721 Acquired absence of ovaries, unilateral; Z90.49 Acquired absence of other specified parts of digestive tract
CPT/HCPCS: 36415; 80053; 82150; 83690; 85025; 81001; 99284; 96374; 96375 ×3; 96376; 96361 ×3; J1200; J2405; J1170 ×2; J1790

== ENCOUNTER 2021-04-25 11:21 | Emergency (ER) | payer BC ==
[2021-04-25 12:10] VITALS: TEMP 98.3
[2021-04-25] MEDS ORDERED: diphenhydrAMINE 50 MG/ML 1 ML VIAL IVP STA (13:00)
[2021-04-25] MEDS ORDERED: ONDANSETRON 4 MG/2 ML VIAL IVP STA (13:00)
[2021-04-25] MEDS ORDERED: SODIUM CHLORIDE 0.9% 500 ML 500 ML IV STA (13:00)
[2021-04-25] MEDS ORDERED: HYDROmorphone 0.5 MG/0.5 ML SYRINGE IVP STA ×2 (13:00→15:31)
[2021-04-25] MEDS ORDERED: SODIUM CHLORIDE 0.9% 1,000 ML IV STA (13:00)
[2021-04-25 13:50] LABS: Appearance,Urine Clear (Clear); Bacteria,Urine Rare /hpf; Bilirubin,Urine Negative (Negative); Blood,Urine Large (Negative); Color,Urine Yellow; Glucose,Urine (UA) Negative (Negative); Ketones,Urine Negative (Negative); Leukocyte Esterase,Urine Negative (Negative); Mucus,Urine Rare /hpf; Nitrite,Urine Negative (Negative); PH, Urine 6.5 (5.0-8.0); Protein,Urine Trace (Negative); RBC,Urine 10 /hpf (0-5); Specific Gravity,Urine 1.015 (1.001-1.035); Squamous Epithelial Cell,Urine <1 /hpf (0-4); Urobilinogen,Urine <2.0 mg/dL (<2.0)
--- NOTE | 2021-04-25 13:58 | ED ---
Abdominal Pain HPI - General Source: patient, RN notes reviewed Mode of arrival: ambulatory Limitations: no limitations <Danilo Nayak - Last Filed: 04/25/21 13:57> <Janine Gray - Last Filed: 04/25/21 15:46> - General Chief Complaint: Abdominal Pain Stated Complaint: revisit- abd pain, pancreatitis Time Seen by Provider: 04/25/21 12:43 - History of Present Illness Initial Comments: This a 65-year-old female presents emergency Department with chief complaint of abdominal pain this is chronic pain in nature. Patient has been in the ER for similar complaints. Patient states started having emesis again. Patient does admit that she is out of her pain medication but states this is not issue. Patient denies any fevers or chills chest pain shortness breath other complaints. (Danilo Nayak) - Related Data Home Medications Medication Instructions Recorded Confirmed amLODIPine BESYLATE/BENAZEPRIL 1 cap PO DAILY 09/09/20 04/25/21 [Lotrel 5-10 MG] Previous Rx's Medication Instructions Recorded Diphenoxylate HCl/Atropine 1 - 2 tab PO Q8H PRN #56 tab 03/09/21 [Lomotil 2.5-0.025 mg Tablet] Gabapentin [Neurontin] 400 mg PO TID #90 cap 03/09/21 HYDROcodone/APAP 10-325MG [[place] 1 tab PO Q6HR PRN 30 Days #120 tab 03/09/21 10-325] Atorvastatin [Lipitor] 40 mg PO HS 30 Days #30 tab 04/20/21 Pantoprazole [Protonix] 40 mg PO BID 30 Days #60 tablet. 04/20/21 Allergies Allergy/AdvReac Type Severity Reaction Status Date / Time No Known Allergies Allergy Verified 04/25/21 13:41 Review of Systems ROS Other: All systems not noted in ROS Statement are negative. <Danilo Nayak - Last Filed: 04/25/21 13:57> ROS Other: All systems not noted in ROS Statement are negative. <Janine Gray - Last Filed: 04/25/21 15:46> ROS Statement: Those systems with pertinent positive or pertinent negative responses have been documented in the HPI. 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/hx fx l2, hx anemia, pancreatits History of Any Multi-Drug Resistant Organisms: None Reported Past Surgical History: Appendectomy, Back Surgery, Cholecystectomy, Orthopedic Surgery, Tonsillectomy Additional Past Surgical History / Comment(s): Pancreatic stents-since removed, 6 back surgeries with 2 fusions, right oophorectomy due to ectopic , EGD/colonoscopy, right leg alice inserted d/t fracture, BACK SURGERY-REMOVED OLD HARDWARE AND PUT IN NEW HARDWARE 09/28/20 Past Anesthesia/Blood Transfusion Reactions: No Reported Reaction Additional Past Anesthesia/Blood Transfusion Reaction / Comment(s): DIFF IV STARTS, Pt has received blood in past without reaction. Past Psychological History: No Psychological Hx Reported Smoking Status: Current every day smoker Past Alcohol Use History: None Reported Past Drug Use History: None Reported - Past Family History Father Family Medical History: Cancer Mother Family Medical History: Cancer, CVA/TIA Additional Family Medical History / Comment(s): breast and colon cancer. <Danilo Nayak M - Last Filed: 04/25/21 13:57> General Exam Limitations: no limitations General appearance: alert, in no apparent distress Head exam: Present: atraumatic, normocephalic, normal inspection Neck exam: Present: normal inspection. Absent: tenderness, meningismus, lymphadenopathy Respiratory exam: Present: normal lung sounds bilaterally. Absent: respiratory distress, wheezes, rales, rhonchi, stridor Cardiovascular Exam: Present: regular rate, normal rhythm, normal heart sounds. Absent: systolic murmur, diastolic murmur, rubs, gallop, clicks GI/Abdominal exam: Present: soft, tenderness, normal bowel sounds. Absent: distended, guarding, rebound, rigid Back exam: Absent: CVA tenderness (R), CVA tenderness (L) Neurological exam: Present: alert <Danilo Nayak M - Last Filed: 04/25/21 13:57> Course Vital Signs 04/25/21 04/25/21 12:08 13:10 Temperature 98.3 F Pulse Rate 83 Respiratory 16 18 Rate Blood Pressure 148/80 O2 Sat by Pulse 97 Oximetry Medical Decision Making - Lab Data Result diagrams: 04/25/21 13:34 08/23/21 14:51 <Janine Gray - Last Filed: 04/25/21 15:46> - Medical Decision Making Patient is signed out to myself from Danilo. I did review the patient's labs. She is requesting more pain medications. Patient is instructed to follow-up with her pain medication doctor and Dr. Clark. Return to the ED for any new or worsening symptoms. Patient agreed to this. (Janine Gray) - Lab Data Lab Results 04/25/21 04/25/21 04/25/21 Range/Units 13:34 13:34 14:51 WBC 7.7 (3.8-10.6) k/uL RBC 4.85 (3.80-5.40) m/uL Hgb 13.6 (11.4-16.0) gm/dL Hct 42.6 (34.0-46.0) % MCV 87.9 (80.0-100.0) fL MCH 28.2 (25.0-35.0) pg MCHC 32.0 (31.0-37.0) g/dL RDW 16.9 H (11.5-15.5) % Plt Count 437 (150-450) k/uL MPV 8.4 Neutrophils % 66 % Lymphocytes % 26 % Monocytes % 6 % Eosinophils % 1 % Basophils % 1 % Neutrophils # 5.0 (1.3-7.7) k/uL Lymphocytes # 2.0 (1.0-4.8) k/uL Monocytes # 0.5 (0-1.0) k/uL Eosinophils # 0.1 (0-0.7) k/uL Basophils # 0.0 (0-0.2) k/uL Manual Slide Review Performed Poikilocytosis (manual Present Anisocytosis Slight Anisocytosis (manual) Present Sodium 138 (137-145) mmol/L Potassium 4.1 (3.5-5.1) mmol/L Chloride 109 H (98-107) mmol/L Carbon Dioxide 25 (22-30) mmol/L Anion Gap 4 mmol/L BUN 14 (7-17) mg/dL Creatinine 0.59 (0.52-1.04) mg/dL Est GFR (CKD-EPI)AfAm >90 (>60 ml/min/1.73 sqM) Est GFR (CKD-EPI)NonAf >90 (>60 ml/min/1.73 sqM) Glucose 88 (74-99) mg/dL Calcium 9.0 (8.4-10.2) mg/dL Total Bilirubin <0.1 L (0.2-1.3) mg/dL AST 22 (14-36) U/L ALT 14 (4-34) U/L Alkaline Phosphatase 61 (38-126) U/L Total Protein 6.3 (6.3-8.2) g/dL Albumin 3.7 (3.5-5.0) g/dL Lipase 88 (23-300) U/L Urine Color Yellow Urine Appearance Clear (Clear) Urine pH 6.5 (5.0-8.0) Ur Specific [place] 1.015 (1.001-1.035) Urine Protein Trace H (Negative) Urine Glucose (UA) Negative (Negative) Urine Ketones Negative (Negative) Urine Blood Large H (Negative) Urine Nitrite Negative (Negative) Urine Bilirubin Negative (Negative) Urine Urobilinogen <2.0 (<2.0) mg/dL Ur Leukocyte Esterase Negative (Negative) Urine RBC 10 H (0-5) /hpf Ur Squamous Epith Cells <1 (0-4) /hpf Urine Bacteria Rare H (None) /hpf Urine Mucus Rare H (None) /hpf Disposition <Danilo Nayak - Last Filed: 04/25/21 13:57> Is patient prescribed a controlled substance at d/c from ED?: No Time of Disposition: 15:20 <Janine Gray - Last Filed: 04/25/21 15:46> Clinical Impression: Abdominal pain, epigastric Disposition: HOME SELF-CARE Condition: Stable Instructions (If sedation given, give patient instructions): Abdominal Pain (ED) Referrals: Toi Chin [Primary Care Provider] - 1-2 days
[2021-04-25 14:01] LABS: Anisocytosis Slight; Basophils % (A) 1 %; Eosinophils # (A) 0.1 k/uL (0-0.7); Eosinophils % (A) 1 %; HCT 42.6 % (34.0-46.0); HGB 13.6 gm/dL (11.4-16.0); Lymphocytes % (A) 26 %; MCH 28.2 pg (25.0-35.0); MCV 87.9 fL (80.0-100.0); Mean Platelet Volume 8.4; Monocytes # (A) 0.5 k/uL (0-1.0); Monocytes % (A) 6 %; Neutrophils % (A) 66 %; Platelet Count 437 k/uL (150-450); RBC 4.85 m/uL (3.80-5.40); RDW 16.9 % (11.5-15.5); WBC 7.7 k/uL (3.8-10.6)
[2021-04-25 14:42] LABS: Anisocytosis (M) Present
[2021-04-25 14:43] LABS: Poikilocytosis (M) Present
[2021-04-25 15:14] LABS: ALT 14 U/L (4-34); AST 22 U/L (14-36); African American GFR (CKD) >90 (>60 ml/min/1.73 sqM); Albumin 3.7 g/dL (3.5-5.0); Alkaline Phosphatase 61 U/L (38-126); Anion Gap 4 mmol/L; Blood Urea Nitrogen 14 mg/dL (7-17); Carbon Dioxide 25 mmol/L (22-30); Chloride 109 mmol/L (98-107); Glucose 88 mg/dL (74-99); Lipase 88 U/L (23-300); Non-African American GFR(CKD) >90 (>60 ml/min/1.73 sqM); Potassium 4.1 mmol/L (3.5-5.1); Sodium 138 mmol/L (137-145); Total Bilirubin <0.1 mg/dL (0.2-1.3); Total Protein 6.3 g/dL (6.3-8.2)
[2021-04-25] MEDS ORDERED: ACET/COD 300 MG/30 MG STARTER PACK 6 TAB BTL PO STA (15:31)
[2021-04-25 15:55] VITALS: BP 162/98; PULSE 687; RESP 20
== END 2021-04-25 15:55 | disposition home or self-care (01) ==
LOC: EC 11:21
DX: R10.13 Epigastric pain (principal); G89.29 Other chronic pain; I10 Essential (primary) hypertension; J44.9 Chronic obstructive pulmonary disease, unspecified; K21.9 Gastro-esophageal reflux disease without esophagitis; F17.200 Nicotine dependence, unspecified, uncomplicated; M19.90 Unspecified osteoarthritis, unspecified site; Z86.73 Personal history of transient ischemic attack (TIA), and cerebral infarction without residual deficits; Z90.49 Acquired absence of other specified parts of digestive tract; Z90.89 Acquired absence of other organs; Z90.721 Acquired absence of ovaries, unilateral; Z87.59 Personal history of other complications of pregnancy, childbirth and the puerperium
CPT/HCPCS: 99284; 96374; 96375 ×2; 96376; 96361 ×2; 36415; 80053; 83690; 85025; 81001; J1200; J2405; J1170

== ENCOUNTER 2021-04-29 10:34 | Emergency (ER) | payer BC ==
[2021-04-29 10:52] VITALS: TEMP 98.1
[2021-04-29] MEDS ORDERED: HYDROmorphone 0.5 MG/0.5 ML SYRINGE IVP STA ×2 (11:12→13:41)
[2021-04-29] MEDS ORDERED: ONDANSETRON 4 MG/2 ML VIAL IVP STA (11:12)
[2021-04-29] MEDS ORDERED: SODIUM CHLORIDE 0.9% 1,000 ML IV STA (11:12)
[2021-04-29] MEDS ORDERED: PANTOPRAZOLE 40 MG/10 ML VIAL IVP STA (11:12)
[2021-04-29 12:56] LABS: ALT 20 U/L (4-34); AST 32 U/L (14-36); African American GFR (CKD) >90 (>60 ml/min/1.73 sqM); Albumin 5.1 g/dL (3.5-5.0); Alkaline Phosphatase 84 U/L (38-126); Amylase 62 U/L (30-110); Anion Gap 13 mmol/L; Blood Urea Nitrogen 18 mg/dL (7-17); Calcium 10.5 mg/dL (8.4-10.2); Carbon Dioxide 21 mmol/L (22-30); Chloride 103 mmol/L (98-107); Glucose 117 mg/dL (74-99); Lipase 106 U/L (23-300); Non-African American GFR(CKD) 80 (>60 ml/min/1.73 sqM); Potassium 4.9 mmol/L (3.5-5.1); Sodium 137 mmol/L (137-145); Total Bilirubin 0.3 mg/dL (0.2-1.3); Total Protein 8.6 g/dL (6.3-8.2)
--- NOTE | 2021-04-29 13:09 | ED ---
Abdominal Pain HPI - General Chief Complaint: Abdominal Pain Stated Complaint: Stomach Pain Time Seen by Provider: 04/29/21 10:59 Source: patient Mode of arrival: ambulatory Limitations: no limitations - History of Present Illness Initial Comments: 65-year-old female with history of pancreatitis, chronic presenting to the emergency department with a chief complaint of abdominal pain nausea vomiting. Patient reports this feels a previous episode of pancreatitis. States the pain started about 3 days ago and is located epigastric abdominal region without any radiation. She reports nausea with a few episodes anomalies and nonbloody vomiting. She denies any chest pain or shortness of breath. Denies hematuria, hematochezia and melena. She had alcoholic drinker. Surgical history of appendectomy cholecystectomy. - Related Data Home Medications Medication Instructions Recorded Confirmed amLODIPine BESYLATE/BENAZEPRIL 1 cap PO DAILY 09/09/20 04/29/21 [Lotrel 5-10 MG] Previous Rx's Medication Instructions Recorded Diphenoxylate HCl/Atropine 1 - 2 tab PO Q8H PRN #56 tab 03/09/21 [Lomotil 2.5-0.025 mg Tablet] Gabapentin [Neurontin] 400 mg PO TID #90 cap 03/09/21 HYDROcodone/APAP 10-325MG [[place] 1 tab PO Q6HR PRN 30 Days #120 tab 03/09/21 10-325] Atorvastatin [Lipitor] 40 mg PO HS 30 Days #30 tab 04/20/21 Pantoprazole [Protonix] 40 mg PO BID 30 Days #60 tablet. 04/20/21 Allergies Allergy/AdvReac Type Severity Reaction Status Date / Time No Known Allergies Allergy Verified 04/29/21 11:28 Review of Systems ROS Statement: Those systems with pertinent positive or pertinent negative responses have been documented in the HPI. ROS Other: All systems not noted in ROS Statement are negative. 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/hx fx l2, hx anemia, pancreatits History of Any Multi-Drug Resistant Organisms: None Reported Past Surgical History: Appendectomy, Back Surgery, Cholecystectomy, Orthopedic Surgery, Tonsillectomy Additional Past Surgical History / Comment(s): Pancreatic stents-since removed, 6 back surgeries with 2 fusions, right oophorectomy due to ectopic , EGD/colonoscopy, right leg alice inserted d/t fracture, BACK SURGERY-REMOVED OLD HARDWARE AND PUT IN NEW HARDWARE 09/28/20 Past Anesthesia/Blood Transfusion Reactions: No Reported Reaction Additional Past Anesthesia/Blood Transfusion Reaction / Comment(s): DIFF IV STARTS, Pt has received blood in past without reaction. Past Psychological History: No Psychological Hx Reported Smoking Status: Current every day smoker Past Alcohol Use History: None Reported Past Drug Use History: None Reported - Past Family History Father Family Medical History: Cancer Mother Family Medical History: Cancer, CVA/TIA Additional Family Medical History / Comment(s): breast and colon cancer. General Exam Limitations: no limitations General appearance: alert, in no apparent distress Head exam: Present: atraumatic, normocephalic, normal inspection Eye exam: Present: normal appearance Pupils: Present: normal accommodation ENT exam: Present: normal exam, normal oropharynx, mucous membranes moist Neck exam: Present: normal inspection, full ROM. Absent: tenderness Respiratory exam: Present: normal lung sounds bilaterally. Absent: respiratory distress, wheezes, rales, rhonchi, stridor Cardiovascular Exam: Present: regular rate, normal rhythm, normal heart sounds. Absent: systolic murmur GI/Abdominal exam: Present: soft, tenderness (Epigastric abdominal tenderness). Absent: distended, guarding, rigid Extremities exam: Present: normal inspection, full ROM, normal capillary refill. Absent: tenderness Back exam: Present: normal inspection, full ROM. Absent: tenderness, CVA tenderness (R), CVA tenderness (L) Neurological exam: Present: alert, oriented X3 Psychiatric exam: Present: normal affect, normal mood Skin exam: Present: warm, dry, intact, normal color Course Vital Signs 04/29/21 10:51 Temperature 98.1 F Pulse Rate 98 Respiratory 20 Rate Blood Pressure 141/80 O2 Sat by Pulse 99 Oximetry Medical Decision Making - Medical Decision Making 65-year-old female with history of pancreatitis, chronic presenting to the e mergency department with a chief complaint of abdominal pain nausea vomiting. On physical examination, epigastric abdominal tenderness. Patient was given IV fluids, antiemetics and analgesia. Patient continued to request Dilaudid. I reviewed her medical records which reveals the patient has been seen here multiple times for the same chief complaint.laboratory work shows no acute findings. Patient was advised to follow-up with her primary care physician. Return primary as with all discussed with patient is resting agreeable. Case discussed with physician. - Lab Data Result diagrams: 04/29/21 12:03 04/29/21 12:03 Lab Results 04/29/21 04/29/21 Range/Units 12:03 12:03 WBC 8.9 (3.8-10.6) k/uL RBC 4.92 (3.80-5.40) m/uL Hgb 14.1 (11.4-16.0) gm/dL Hct 43.2 (34.0-46.0) % MCV 87.8 (80.0-100.0) fL MCH 28.7 (25.0-35.0) pg MCHC 32.7 (31.0-37.0) g/dL RDW 16.6 H (11.5-15.5) % Plt Count 453 H (150-450) k/uL MPV 8.7 Neutrophils % 72 % Lymphocytes % 20 % Monocytes % 4 % Eosinophils % 1 % Basophils % 1 % Neutrophils # 6.5 (1.3-7.7) k/uL Lymphocytes # 1.8 (1.0-4.8) k/uL Monocytes # 0.4 (0-1.0) k/uL Eosinophils # 0.1 (0-0.7) k/uL Basophils # 0.0 (0-0.2) k/uL Anisocytosis Slight Sodium 137 (137-145) mmol/L Potassium 4.9 (3.5-5.1) mmol/L Chloride 103 (98-107) mmol/L Carbon Dioxide 21 L (22-30) mmol/L Anion Gap 13 mmol/L BUN 18 H (7-17) mg/dL Creatinine 0.78 (0.52-1.04) mg/dL Est GFR (CKD-EPI)AfAm >90 (>60 ml/min/1.73 sqM) Est GFR (CKD-EPI)NonAf 80 (>60 ml/min/1.73 sqM) Glucose 117 H (74-99) mg/dL Calcium 10.5 H (8.4-10.2) mg/dL Total Bilirubin 0.3 (0.2-1.3) mg/dL AST 32 (14-36) U/L ALT 20 (4-34) U/L Alkaline Phosphatase 84 (38-126) U/L Total Protein 8.6 H (6.3-8.2) g/dL Albumin 5.1 H (3.5-5.0) g/dL Amylase 62 (30-110) U/L Lipase 106 (23-300) U/L Disposition Clinical Impression: Abdominal pain Disposition: HOME SELF-CARE Condition: Stable Instructions (If sedation given, give patient instructions): Abdominal Pain (ED) Additional Instructions: Please return to the Emergency Department if symptoms worsen or any other conc erns. Is patient prescribed a controlled substance at d/c from ED?: No Referrals: Toi Chin [Primary Care Provider] - 1-2 days Time of Disposition: 13:37
[2021-04-29 13:14] LABS: Anisocytosis Slight; Basophils % (A) 1 %; Eosinophils # (A) 0.1 k/uL (0-0.7); Eosinophils % (A) 1 %; HCT 43.2 % (34.0-46.0); HGB 14.1 gm/dL (11.4-16.0); Lymphocytes # (A) 1.8 k/uL (1.0-4.8); Lymphocytes % (A) 20 %; MCH 28.7 pg (25.0-35.0); MCHC 32.7 g/dL (31.0-37.0); MCV 87.8 fL (80.0-100.0); Mean Platelet Volume 8.7; Monocytes # (A) 0.4 k/uL (0-1.0); Monocytes % (A) 4 %; Neutrophils # (A) 6.5 k/uL (1.3-7.7); Neutrophils % (A) 72 %; Platelet Count 453 k/uL (150-450); RBC 4.92 m/uL (3.80-5.40); RDW 16.6 % (11.5-15.5); WBC 8.9 k/uL (3.8-10.6)
[2021-04-29 14:10] VITALS: BP 147/91; PULSE 75; RESP 18
== END 2021-04-29 14:12 | disposition home or self-care (01) ==
LOC: EC 10:34
DX: R10.13 Epigastric pain (principal); I10 Essential (primary) hypertension; K21.9 Gastro-esophageal reflux disease without esophagitis; M19.90 Unspecified osteoarthritis, unspecified site; J44.9 Chronic obstructive pulmonary disease, unspecified; F17.200 Nicotine dependence, unspecified, uncomplicated; Z90.49 Acquired absence of other specified parts of digestive tract; Z90.89 Acquired absence of other organs; Z90.721 Acquired absence of ovaries, unilateral; Z86.73 Personal history of transient ischemic attack (TIA), and cerebral infarction without residual deficits; Z87.59 Personal history of other complications of pregnancy, childbirth and the puerperium; Z87.19 Personal history of other diseases of the digestive system
CPT/HCPCS: 99284; 96374; 96375 ×2; 96376; 96361; 36415; 80053; 82150; 83690; 85025; J2405; C9113; J1170

== ENCOUNTER → 2021-05-11 | Outpatient (CLI) | payer BC ==
[2021-05-11 14:40] VITALS: BP 148/93; PULSE 88; RESP 16; TEMP 98.6
--- NOTE | 2021-05-11 14:51 | P.PN ---
Subjective Progress Note Date: 05/11/21 This is Follow up visit for this 65 years old female with a chronic history of severe upper midback, and low back pain, and chronic abdominal pain, patient diagnosed with chronic pancreatitis, and she had multiple back surgeries, thoracic and abdominal fusion, patient continued to have severe midback and low back pain, and severe abdominal pain, the pain is constant and increases with any activity, and she is currently on [place] 10/325 [id number], and Neurontin 400 mg 3 times a day, patient had chronic diarrhea secondary to chronic pancreatitis, she had multiple mission to the hospital secondary to nausea and vomiting and abdominal pain, she denies any motor or sensory deficit, but she accompanied using cane, patient report that ,the current medication is helping to control the pain, VAS 4/10, she denies any side effect of the medication, he denies any excessive drowsiness or sleepiness she denies any fever or night sweats Physical Examinations : -Constitutiona : Cooperative , not in acute distress . -HEENT : nech : supple , no Lymphadenopathy , normal thyroid size . : eyes : no ptosis , no icterus, no photophobia . - neurologic : Cranial nerve II to XII intact , no focal neurological deffecit . -psychatric : alert , oriented X 3 , appropriate affect , intact judgment and insight . -Lymphatic : no Lymphadenopathy . -Abdomen : Tenderness in the epigastric area - musculoskeltal : Cervical Spine motor stregnth in the deltoid and biceps, normal right side , normal Left side motor stregnth biceps and the wrist extensors normal right side ,normal left side . motor stregnth in the triceps muscle . normal Right side , normal Left side deep tendon reflexes normal at the biceps , normal at Brachioradialis , normal at triceps. Thoracic spine= Positive facet loading test T4 to T12 Lumber spine moter stegnth lower extremities ,thigh and legs 5/5 Right side , 5/5 Left side deep tendon reflexes : normal Knee Jerk , normal ankle Jerk lumber facet Loading Test =positive Right , positive Left Range of motion of the lumbar spine Flexion 30 degrees, extension 10 degrees strait leg raising test = positive at 30 degree Fabere test= positive Right , and positive LT . Sever tenderness over the Sacroiliac joint on the Right , and Left sides Gaenslen test= positive right ,and positive left . Seated flexion test= positive right ,and positive Left . Distraction test= positive bilaterally Results: Computed tomography scan of the lumbar spine multilevel lumbar degenerative disc disease and central canal stenosi Assessment and plan=1-chronic abdominal pain secondary to chronic pancreatitis. 2-thoracic and lumbar degenerative disc disease, status post thoracic and lumbar fusion . 3-bilateral sacroiliitis. 4-Chronic and current use of high-risk medication., Patient denies any side effects of the current pain medication and the current treatment/medication helping the patient to do activity of daily living , Diagnoses, prognosis, treatment options, including but not limited to physical therapy, medication management, interventional therapies, and surgery, were discussed with the patient All the questions answered The narcotic consent was signed and patient agreed and understood the side effects and complications of opioid treatment. Patient signed the narcotic agreement, and was orally counseled, not to overuse, not to abuse, not to Divert , not tp sell pain medication, and to take it as prescribed only, Patient was counseled not to drive or operate heavy equipment while using narcotic medication, and advised not to use alcohol or any Illicit drugs while using the narcotis. understanding that lack of compliance with any of the above instructions, will likely to cause discharge from, the pain service, not to renew his narcotic prescriptions MAPS Reviwed and it was apropriate . Current drugs reviewed Medication managements= refill prescription for [place] 10/325 every 6 hours when necessary dispense 120 . continue Neurontin to 400 mg TID The lomotil 1-2 tab when necessary every 8 hours (dispence 120 with one refill ) Refill for [place] was given because her primary care refill her rheumatid minutes and controlled substance for this reason I will refill it Discussed with the patient the option of doing a celiac plexus block patient will discuss this option with her at home PQRS Measure Charge Sheet Measure #130: Documentation of Current Meds in Medical Chart: Patient's medications documented in chart Measure #226: Tobacco Use: Screen & Cessation Intervention: Pt screened for tobacco use AND intervention given Measure #111: Pneumonia Vaccination: Pneumococcal vaccine NOT administered or previously given Measure #47: Advance Care Plan: Advance care planning discussed & documented, pt chose/unable to give Measure #412: Opioid Treatment Agreement: Documented signed opioid trtmnt agreemnt min once during opioid trtmnt Measure #408: Opioid Therapy Follow-up Evaluation: Patient had f/u eval minimum every 3 months during opioid therapy Measure #317: Preventitive Care & Scrn High Bld Press & F/U: 148/93 patient will follow up with the primary care Measure #128: Body Mass Index (BMI) Screening & Follow-up: BMI documented BELOW normal parameters - f/u documented Measure #131: Pain Assessment & Follow-up: Pain positive & plan documented, Follow-up scheduled Measure #431: Unhealthy Alcohol Use Preventative Care & Scrn: Patient not identified as an unhealthy alcohol user Time with Patient: Less than 30 Objective - Vital Signs Vital signs: Vital Signs Temp 98.6 F 05/11/21 14:39 Pulse 88 05/11/21 14:39 Resp 16 05/11/21 14:39 BP 148/93 05/11/21 14:39 Pulse Ox 98 05/11/21 14:39
== END ==
LOC: PNWHC3 13:47
PROVIDERS: ATTEND Specialist
DX: M51.36 Other intervertebral disc degeneration, lumbar region (principal); M51.34 Other intervertebral disc degeneration, thoracic region; M46.1 Sacroiliitis, not elsewhere classified; K86.1 Other chronic pancreatitis; G89.29 Other chronic pain; Z79.891 Long term (current) use of opiate analgesic; Z98.1 Arthrodesis status; Z87.891 Personal history of nicotine dependence
CPT/HCPCS: 99211

== ENCOUNTER → 2021-07-06 | Outpatient (CLI) | payer BC ==
[2021-07-06 14:30] VITALS: BP 135/94; PULSE 77; RESP 18; TEMP 97.4
--- NOTE | 2021-07-06 15:04 | P.PN ---
Subjective Progress Note Date: 07/06/21 Domi is a 65 years old female with a chronic history of severe upper midback, and low back pain, and chronic abdominal pain, patient diagnosed with chronic pancreatitis. She had multiple back surgeries, thoracic and abdominal fusion, patient continued to have severe midback and low back pain, and severe abdominal pain. The pain is constant and increases with any activity, and she is currently on [place] 10/325 every 6 hours, and Neurontin 400 mg 3 times a day, patient had chronic diarrhea secondary to chronic pancreatitis, she had multiple admission to the hospital secondary to nausea and vomiting and abdominal pain. She denies any motor or sensory deficit, she was using a wheelchair today, pat garettnt report that ,the current medication is helping to control the pain, VAS 3/10, she denies any side effect of the medication, she denies any excessive drowsiness or sleepiness she denies any fever or night sweats. Objective - Vital Signs Vital signs: Intake & Output 07/05/21 07/06/21 07/06/21 18:59 06:59 18:59 Weight 49.442 kg - Exam Physical Examinations : -Constitutiona : Cooperative , not in acute distress . -HEENT : nech : supple , no Lymphadenopathy , normal thyroid size . : eyes : no ptosis , no icterus, no photophobia . - neurologic : Cranial nerve II to XII intact , no focal neurological deffecit . -psychatric : alert , oriented X 3 , appropriate affect , intact judgment and insight . -Lymphatic : no Lymphadenopathy . - musculoskeltal : Cervical Spine motor stregnth in the deltoid and biceps, normal right side , normal Left side motor stregnth biceps and the wrist extensors normal right side ,normal left side . motor stregnth in the triceps muscle . normal Right side , normal Left side deep tendon reflexes normal at the biceps , normal at Brachioradialis , normal at triceps. cervical facet loading test: Positive Bilaterally Spurling test= positive Right , positive left. Neck distraction test= positive Right , positive left. Vipul sign= negative Lumber spine moter stegnth lower extremities ,thigh and legs 5/5 Right side , 5/5 Left side deep tendon reflexes : normal Knee Jerk , normal ankle Jerk lumber facet Loading Test =positive Right , positive Left Range of motion of the lumbar spine Flexion 30 degrees, extension 10 degrees strait leg raising test = positive at degree Fabere test= positive Right , and positive LT . Sever tenderness over the Sacroiliac joint on the Right , and Left sides Gaenslen test= positive right ,and positive left . Seated flexion test= positive right ,and positive Left . Distraction test= positive bilaterally Sacroiliac compression test= positive bilaterally Assessment and Plan Assessment: Assessment and plan=1-chronic abdominal pain secondary to chronic pancreatitis. 2-thoracic and lumbar degenerative disc disease, status post thoracic and lumbar fusion . 3-bilateral sacroiliitis. 4-Chronic and current use of high-risk medication., Patient denies any side effects of the current pain medication and the current treatment/medication helping the patient to do activity of daily living , Diagnoses, prognosis, treatment options, including but not limited to physical therapy, medication management, interventional therapies, and surgery, were discussed with the patient All the questions answered The narcotic consent was signed and patient agreed and understood the side effects and complications of opioid treatment. Patient signed the narcotic agreement, and was orally counseled, not to overuse, not to abuse, not to Divert , not tp sell pain medication, and to take it as prescribed only, Patient was counseled not to drive or operate heavy equipment while using narcotic medication, and advised not to use alcohol or any Illicit drugs while using the narcotis. understanding that lack of compliance with any of the above instructions, will likely to cause discharge from, the pain service, not to renew his narcotic prescriptions MAPS Reviwed and it was apropriate . Current drugs reviewed Medication managements= refill prescription for [place] 10/325 every 6 hours when necessary dispense 120 . continue Neurontin to 400 mg TID lomotil 1-2 tab when necessary every 8 hours (dispence 120 with one refill ) - PQRS measures = - Patient's medications are documented in the chart. -Tobacco use is positive and counseling.Given. -Patient's has received pneumococcal vaccine. -Advanced care planning discussed, patient not eligible. -Opiate contract signed. -Pain positive and follow-up visit/procedure is scheduled. -Patient's blood pressure measured 135/94 , and documented in the record ,and patient will follow up with the primary care. -Patient was not identified as an unhealthy alcohol user
== END ==
LOC: PNWHC3 13:58
PROVIDERS: ATTEND Student in an Organized Health Care Education/Training Program
DX: K86.1 Other chronic pancreatitis (principal); M51.36 Other intervertebral disc degeneration, lumbar region; M51.34 Other intervertebral disc degeneration, thoracic region; M46.1 Sacroiliitis, not elsewhere classified; G89.29 Other chronic pain; Z98.1 Arthrodesis status; Z79.891 Long term (current) use of opiate analgesic
CPT/HCPCS: 99211

== ENCOUNTER → 2021-08-31 | Outpatient (CLI) | payer BC ==
[2021-08-31 14:52] VITALS: BP 148/78; PULSE 76; RESP 18; TEMP 98.1
--- NOTE | 2021-08-31 15:04 | P.PN ---
Subjective Progress Note Date: 08/31/21 This is 65 years old female with a chronic history of severe upper midback, and low back pain, and chronic abdominal pain, patient diagnosed with chronic pancreatitis. She had multiple back surgeries, thoracic and abdominal fusion, patient continued to have severe midback and low back pain, and severe abdominal pain. The pain is constant and increases with any activity, and she is currently on Reva 10/325 every 6 hours, and Neurontin 400 mg 3 times a day, patient had chronic diarrhea secondary to chronic pancreatitis, and she is taking Lomotil 1- 2 tablets when necessary ,to treate her diarea, she had multiple admission to the hospital secondary to nausea and vomiting and abdominal pain. She denies any motor or sensory deficit, she was using a wheelchair today, patient report that ,the current medication is helping to control the pain, VAS 5-6/10, she denies any side effect of the medication, she denies any excessive drowsiness or sleepiness she denies any fever or night sweats. He reported that the current medication is not helping enough to control her pain Physical Examinations : -Constitutiona : Cooperative , not in acute distress . -HEENT : nech : supple , no Lymphadenopathy , normal thyroid size . : eyes : no ptosis , no icterus, no photophobia . - neurologic : Cranial nerve II to XII intact , no focal neurological deffecit . -psychatric : alert , oriented X 3 , appropriate affect , intact judgment and insight . -Lymphatic : no Lymphadenopathy . -abdomen : tenderness in the epigastric area - musculoskeltal : Cervical Spine motor stregnth in the deltoid and biceps, normal right side , normal Left side motor stregnth biceps and the wrist extensors normal right side ,normal left side . motor stregnth in the triceps muscle . normal Right side , normal Left side deep tendon reflexes normal at the biceps , normal at Brachioradialis , normal at triceps. cervical facet loading test: Positive Bilaterally Spurling test= positive Right , positive left. Neck distraction test= positive Right , positive left. Vipul sign= negative Lumber spine moter stegnth lower extremities ,thigh and legs 5/5 Right side , 5/5 Left side deep tendon reflexes : normal Knee Jerk , normal ankle Jerk lumber facet Loading Test =positive Right , positive Left Range of motion of the lumbar spine Flexion 30 degrees, extension 10 degrees strait leg raising test = positive at degree Fabere test= positive Right , and positive LT . Sever tenderness over the Sacroiliac joint on the Right , and Left sides Gaenslen test= positive right ,and positive left . Seated flexion test= positive right ,and positive Left . Distraction test= positive bilaterally Sacroiliac compression test= positive bilaterally Assessment and Plan Assessment: Assessment and plan=1-chronic abdominal pain secondary to chronic pancreatitis. 2-thoracic and lumbar degenerative disc disease, status post thoracic and lumbar fusion . 3-bilateral sacroiliitis. 4-Chronic and current use of high-risk medication., Patient denies any side effects of the current pain medication and the current treatment/medication helping the patient to do activity of daily living , Diagnoses, prognosis, treatment options, including but not limited to physical therapy, medication management, interventional therapies, and surgery, were discussed with the patient All the questions answered The narcotic consent was signed and patient agreed and understood the side effects and complications of opioid treatment. Patient signed the narcotic agreement, and was orally counseled, not to overuse, not to abuse, not to Divert , not tp sell pain medication, and to take it as prescribed only, Patient was counseled not to drive or operate heavy equipment while using narcotic medication, and advised not to use alcohol or any Illicit drugs while using the narcotis. understanding that lack of compliance with any of the above instructions, will likely to cause discharge from, the pain service, not to renew his narcotic prescriptions MAPS Reviwed and it was apropriate . Current drugs reviewed Medication managements= refill prescription for Reva 10/325 every 6 hours when necessary dispense 120 . increase Neurontin to 600 mg TID dis 90 with 1 refill lomotil 1-2 tab when necessary every 8 hours (dispence 120 with one refill ). - PQRS measures = - Patient's medications are documented in the chart. -Tobacco use is positive, and counseling.Given. -Patient's has not received pneumococcal vaccine. -Advanced care planning discussed, patient not eligible. -Opiate contract signed. -Pain positive and follow-up visit/procedure is scheduled. -Patient's blood pressure measured [ 148/78 ] , and documented in the record ,and patient will follow up with the primary care. -Patient's weight was measured and body mass index [ ] within the normal limits and counseling was done. and patient instructed to follow-up with the primary care physician. -Patient was not identified as an unhealthy alcohol user Objective - Vital Signs Vital signs: Vital Signs Temp 98.1 F 08/31/21 14:23 Pulse 76 08/31/21 14:23 Resp 18 08/31/21 14:23 BP 148/78 08/31/21 14:23 Pulse Ox 95 08/31/21 14:23 Intake & Output 08/30/21 08/31/21 08/31/21 18:59 06:59 18:59 Weight 49.442 kg
== END ==
LOC: PNWHC3 14:16
PROVIDERS: ATTEND Specialist
DX: M51.36 Other intervertebral disc degeneration, lumbar region (principal); M51.34 Other intervertebral disc degeneration, thoracic region; K86.1 Other chronic pancreatitis; M46.1 Sacroiliitis, not elsewhere classified; G89.29 Other chronic pain; Z98.1 Arthrodesis status; Z79.899 Other long term (current) drug therapy; Z87.891 Personal history of nicotine dependence
CPT/HCPCS: 99211

== ENCOUNTER → 2021-10-26 | Outpatient (CLI) | payer BC ==
--- NOTE | 2021-10-26 14:47 | P.PN ---
Subjective Progress Note Date: 10/26/21 Principal diagnosis: A 66 yr old wheelchair bound female with a history of severe and chronic low back pain secondary to lumbar degenerative disc diseases and lumbar spondylosis with facet arthropathy presents today for mediation refills. States that higher Neurontin dose is not effective in reducing pain. She feels that her body has tolerated [place] 10/325mg as she used to be on Oxycodone 10mg in the past. This has been affirmed on MAPS. Patient states her pain level waxes and wanes in intensity but is currently 8 out of 10, constant, achy, throbbing with shooting character towards the bilateral hips, bilateral knees and bilateral lower extremities. Pain is provoked by sitting in 1 position for 30 minutes, standing for periods of 10 minutes or more, or walking for periods of 5 minutes. Pain is alleviated with medications, injections, ice, heat, repositioning, home stretching regimen of a wheelchair and other ambulatory devices and rest. Patient is currently on [place] 10/325mg #120, Neurontin 600mg #90, Lomotil 2.5/0.025 #120 Patient denies any side effects of the medication(s), denies excessive drowsiness or sleepiness, denies suicidal ideation and reports that the current pain medication is helping to control the pain and improve activities of daily living. Patient denies any motor or sensory deficits. Patient denies any fever or night sweats, denies any change in the bowel movements or urination. Physical Examination: -Constitutional: Cooperative. Not in acute distress . -HEENT: Neck is supple. No lymphadenopathy. No thyromegaly. Normal thyroid size. Eyes: No ptosis , no icterus, no photophobia. ENT: No auditory deficits. Normal oropharynx. No Thrush. - Respiratory: Chest clear to auscultations bilaterally. No wheezing. No rhonchi. - Cardiovascular: Regular rate and rhythm. S1 / S2 , no S3 , no S4. - Gastrointestinal: Abdomen soft no tenderness. Bowel sounds positive in all four quadrants. No organomegaly. - Genitourinary: Deferred. - Neurologic: Cranial nerve II to XII intact. No focal neurological deficits. - Psychatric: Alert & oriented x 3. Matching mood & appropriate affect. Judgment and insight intact. - Lymphatic: No Lymphadenopathy. - Musculoskeletal: Cervical spine: Muscle bulk/ tone/ strength in the bilateral upper extremities normal. Facet loading test cervical area positive. Lumbar spine: Motor bulk/ tone/ strength lower extremities , thigh and legs : 5/5 Deep tendon reflexes : Normal Knee Jerk. Normal Ankle Jerk . Vertebral body tenderness to palpation over L3, L4, L5 Lumbar Facet Loading Test positive over L3-4, L4-5, L5-S1 Straight Leg Raise: positive at 30 degrees right side/ left side Gaenslen's Test positive Sacral spine : Severe tenderness over the Sacroiliac joint: right side / left side Range of motion: Flexion of the lumbar spine <60 degrees Range of motion: Extension of the lumbar spine <20 degrees Gaenslen's Test positive Genna test: positive right side / left side Assessment and plan: Chronic low back pain secondary to lumbar degenerative disc disease , lumbar spondylosis with facet arthropathy without myelopathy Discontinue [place] 10/325 mg #120 Start Fentanyl patch 50 mcg QAM x 72 hr prn pain New opiate agreement form signed Urine collected for UDS Chronic and current use of high-risk medication (Opioids). The patient was counseled about risk of opioid use, psychological risk associated with opioids and was orally counseled to not overuse , divert or sell medications. Pt is to store medication in a safe location. The patient is counseled against driving while using narcotic medications and also not to use alcohol or any illicit recreational drugs. Patient verbalized understanding that the lack of compliance will result in failure to renew narcotic prescription(s) as well as possible discharge from the clinic Diagnoses, prognosis and treatment options including but not limited to physical therapy, surgical interventions, interventional therapies and medication management including narcotics and adjuvant medication were discussed. All patient questions answered MAPS reviewed and it was appropriate. Prescription refill for Lomotil 2.5/0.025 120 with refill; Neurontin 600mg #90 with refill I have spent 31 minutes on patient care today. Dr Burks was available by phone for the evaluation of this patient. The time was used to review the medical records including relevant urine studies and Prescription history (MAPs), review of the available imaging, evaluation and examination of the patient, coordination of care with the medical staff and if applicable referring physicians, as well as creation of the medical record Objective - Vital Signs Vital signs: Intake & Output 10/25/21 10/26/21 10/26/21 18:59 06:59 18:59 Weight 49.442 kg PQRS Measure Charge Sheet PQRS Narrative: Smoking Status Former smoker Narcotic Agreement Date Signed 12/22/20 Pain Intensity [Back] 7 Scale Used Numeric (1 - 10) Hx Alcohol Use (MH) No Home Medications: Ambulatory Orders amLODIPine BESYLATE/BENAZEPRIL [Lotrel 5-10 MG] 1 cap PO DAILY 09/09/20 Atorvastatin [Lipitor] 40 mg PO HS 30 Days #30 tab 04/20/21 Pantoprazole [Protonix] 40 mg PO BID 30 Days #60 tablet.dr 04/20/21 Diphenoxylate HCl/Atropine [Lomotil 2.5-0.025 mg Tablet] 1 - 2 tab PO Q8H PRN #120 tab 08/31/21 Gabapentin [Neurontin] 600 mg PO TID 30 Days #90 tab 08/31/21 HYDROcodone/APAP 10-325MG [[place] 10-325] 1 tab PO Q6HR PRN 30 Days #120 tab 08/31/21
[2021-10-26 15:15] VITALS: BP 123/81; PULSE 90; RESP 16; TEMP 98
== END ==
LOC: PNWHC3 14:01
PROVIDERS: ATTEND Physician Assistant Medical
DX: M51.36 Other intervertebral disc degeneration, lumbar region (principal); M47.816 Spondylosis without myelopathy or radiculopathy, lumbar region; G89.29 Other chronic pain; Z79.891 Long term (current) use of opiate analgesic; Z87.891 Personal history of nicotine dependence
CPT/HCPCS: 80307; 99212; G0482

== ENCOUNTER → 2021-12-21 | Outpatient (CLI) | payer BC ==
[2021-12-21 14:39] VITALS: BP 113/79; PULSE 77; RESP 18
--- NOTE | 2021-12-21 14:47 | P.PN ---
Subjective Progress Note Date: 12/21/21 Principal diagnosis: A 66 yr old wheelchair bound female with a history of severe and chronic low back pain secondary to lumbar degenerative disc diseases and lumbar spondylosis with facet arthropathy presents today for medication refills. UDS from 10/26/21 reviewed which was negative for gabapentin. Patient states she went to [facility] for a wedding and forgot to bring with her her pain patches as well as Neurontin. Pain level axes and wanes throughout the day but is generally 5 out of 10 in intensity, dull, achy in the mid to lower aspects of her lumbar spine with radiation of pain to the lower extremities. Pain is provoked by bending, twisting and lifting. Pain is alleviated with occasions, topicals, heat, physical therapy in the past, chiropractic treatments in the past, daily home stretching regimen, use of a wheelchair walker and cane for ambulation assistance, massage therapy in the past and rest. Pt states pain is increasing every 3rd day when she has to take off & replace her fentanyl patch and would like medication for breakthrough pain. Patient is currently on Fentanyl patch, Neurontin, Lomotil. Patient denies any side effects of the medication(s), denies excessive drowsiness or sleepiness, denies suicidal ideation and reports that the current pain medication is helping to control the pain and improve activities of daily living. Patient denies any motor or sensory deficits. Patient denies any fever or night sweats, denies any change in the bowel movements or urination. Physical Examination: -Constitutional: Cooperative. Not in acute distress . -HEENT: Neck is supple. No lymphadenopathy. No thyromegaly. Normal thyroid size. Eyes: No ptosis , no icterus, no photophobia. ENT: No auditory deficits. Normal oropharynx. No Thrush. - Respiratory: Chest clear to auscultations bilaterally. No wheezing. No rhonchi. - Cardiovascular: Regular rate and rhythm. S1 / S2 , no S3 , no S4. - Gastrointestinal: Abdomen soft no tenderness. Bowel sounds positive in all four quadrants. No organomegaly. - Genitourinary: Deferred. - Neurologic: Cranial nerve II to XII intact. No focal neurological deficits. - Psychatric: Alert & oriented x 3. Matching mood & appropriate affect. Judgmen t and insight intact. - Lymphatic: No Lymphadenopathy. - Musculoskeletal: Cervical spine: Muscle bulk/ tone/ strength in the bilateral upper extremities normal. Facet loading test cervical area positive. Lumbar spine: Motor bulk/ tone/ strength lower extremities , thigh and legs : 5/5 Deep tendon reflexes : Normal Knee Jerk. Normal Ankle Jerk . Vertebral body tenderness to palpation over L3, L4, L5 Lumbar Facet Loading Test positive Straight Leg Raise: positive at 30 degrees right side/ left side Gaenslen's Test positive Sacral spine : Severe tenderness over the Sacroiliac joint: right side / left side Range of motion: Flexion of the lumbar spine <60 degrees Range of motion: Extension of the lumbar spine <20 degrees Gaenslen's Test positive Genna test: positive right side / left side Assessment and plan: Chronic low back pain secondary to lumbar degenerative disc disease , lumbar spondylosis with facet arthropathy without myelopathy Chronic and current use of high-risk medication (Opioids). The patient was counseled about risk of opioid use, psychological risk associated with opioids and was orally counseled to not overuse , divert or sell medications. Pt is to store medication in a safe location. The patient is counseled against driving while using narcotic medications and also not to use alcohol or any illicit recreational drugs. Patient verbalized understanding that the lack of compliance will result in failure to renew narcotic prescription(s) as well as possible discharge from the clinic Diagnoses, prognosis and treatment options including but not limited to physical therapy, surgical interventions, interventional therapies and medication management including narcotics and adjuvant medication were discussed. All patient questions answered MAPS reviewed and it was appropriate. UDS from 10/26/21 reviewed and consistent. Prescription refill for Fentanyl 50mcg/72h patches #10 1 refill, Neurontinn #60 1 refill, Lomotil w 1 refill. Add Tramadol 50mg BID prn #60 1 refill. I have spent 31 minutes on patient care today. Dr Burks was available by phone for the evaluation of this patient. The time was used to review the medical records including relevant urine studies and Prescription history (MAPs), review of the available imaging, evaluation and examination of the patient, coordination of care with the medical staff and if applicable referring physicians, as well as creation of the medical record Objective - Vital Signs Vital signs: Vital Signs Temp Pulse 77 12/21/21 14:35 Resp 18 12/21/21 14:35 BP 113/79 12/21/21 14:35 Pulse Ox 98 12/21/21 14:35 PQRS Measure Charge Sheet Mode of Arrival: Wheelchair - Pain Location Generalized Non-Pharmacological Interventions: Chiropractic Treatment, Heat, Home Exercise, Inactivity, Massage, Physical Therapy, Position/Reposition, Stretching Pharmacological Interventions: PRN Medication, Scheduled Medication, Topical Medication PQRS Narrative: Smoking Status Former smoker Narcotic Agreement Date Signed 12/21/21 Blood Pressure 113/79 Pain Intensity [Generalized] 4 Scale Used Numeric (1 - 10) Hx Alcohol Use (MH) No Home Medications: Ambulatory Orders amLODIPine BESYLATE/BENAZEPRIL [Lotrel 5-10 MG] 1 cap PO DAILY 09/09/20 Atorvastatin [Lipitor] 40 mg PO HS 30 Days #30 tab 04/20/21 Pantoprazole [Protonix] 40 mg PO BID 30 Days #60 tablet. 04/20/21 Amitriptyline HCl [Elavil] 25 mg PO HS 30 Days #30 tablet 10/31/21 Diphenoxylate HCl/Atropine [Lomotil 2.5-0.025 mg Tablet] 1 - 2 tab PO Q8H PRN 30 Days #120 tab 12/21/21 Gabapentin [Neurontin] 600 mg PO TID 30 Days #90 tab 12/21/21 fentaNYL 50MCG/HR PATCH [Duragesic 50MCG/HR] 1 patch TRANSDERM Q72H 30 Days #10 patch 12/21/21 fentaNYL 50MCG/HR PATCH [Duragesic 50MCG/HR] 50 mcg TRANSDERM Q72H 30 Days #10 patch 12/21/21 traMADol HCL 0 mg PO BID PRN 30 Days #60 tablet 12/21/21 traMADol HCL [Ultram] 50 mg PO Q12HR PRN 30 Days #60 tab 12/21/21
== END ==
LOC: PNWHC3 14:00
PROVIDERS: ATTEND Specialist
DX: G89.29 Other chronic pain (principal); M51.36 Other intervertebral disc degeneration, lumbar region; M47.816 Spondylosis without myelopathy or radiculopathy, lumbar region; Z79.891 Long term (current) use of opiate analgesic; Z87.891 Personal history of nicotine dependence
CPT/HCPCS: 99211

== ENCOUNTER → 2022-02-15 | Outpatient (CLI) | payer BC ==
--- NOTE | 2022-02-15 14:59 | P.PAINPG ---
PQRS Measure Charge Sheet Comment: A 66 yr old female with caregiver present with a history of severe and chronic low back pain secondary to lumbar degenerative disc diseases and lumbar spondylosis with facet arthropathy presents today for medication refills. Pain level is currently an 8 out of 10 in intensity, dull, achy, sharp in the lower aspects of her lumbar spine with radiation of pain to the BLEs. Pt states she was hospitalized from January for SBO, surgery and medication management. Discharge paperwork provided by patient from [facility] states that Dr. Chen discontinued her Fentanyl 50mcg/hr and Neurontin. Some paperwork from her inpatient stay states she was diagnosed with chronic recurrent pancreatitis, hence the diarrhea. She was prescribed [place] #12 upon discharge. At this clinic, she was discontinued from [place] and placed on Tramadol. Pain is provoked by bending, twisting and lifting. Pain is alleviated with medications, topicals, heat, ice, use of a walker for ambulation. Patient is currently on [place] (discharge medications from [facility]) Patient denies any side effects of the medication(s), denies excessive drowsiness or sleepiness, denies suicidal ideation and reports that the current pain medication is helping to control the pain and improve activities of daily living. Patient denies any motor or sensory deficits. Patient denies any fever or night sweats, denies any change in the bowel movements or urination. Physical Examination: -Constitutional: Cooperative. Not in acute distress . -HEENT: Neck is supple. No lymphadenopathy. No thyromegaly. Normal thyroid size. Eyes: No ptosis , no icterus, no photophobia. ENT: No auditory deficits. Normal oropharynx. No Thrush. - Respiratory: Chest clear to auscultations bilaterally. No wheezing. No rhonchi. - Cardiovascular: Regular rate and rhythm. S1 / S2 , no S3 , no S4. - Gastrointestinal: Abdomen soft no tenderness. Bowel sounds positive in all four quadrants. No organomegaly. - Genitourinary: Deferred. - Neurologic: Cranial nerve II to XII intact. No focal neurological deficits. - Psychatric: Alert & oriented x 3. Matching mood & appropriate affect. Judgment and insight intact. - Lymphatic: No Lymphadenopathy. - Musculoskeletal: Cervical spine: Muscle bulk/ tone/ strength in the bilateral upper extremities normal Vertebral body tenderness to palpation over Facet loading test positive Thoracic spine Muscle bulk / tone/ strength in the bilateral paraspinal muscles normal Vertebral body tender to palpation over Facet loading test positive Lumbar spine: Motor bulk/ tone/ strength lower extremities , thigh and legs : 5/5 Deep tendon reflexes : Normal Knee Jerk. Normal Ankle Jerk . Vertebral body tenderness to palpation over L3, L4, L5 Lumbar Facet Loading Test positive Straight Leg Raise: positive at 30 degrees right side/ left side Gaenslen's Test positive Sacral spine : Severe tenderness over the Sacroiliac joint: right side / left side Range of motion: Flexion of the lumbar spine <60 degrees Range of motion: Extension of the lumbar spine <20 degrees Gaenslen's Test positive Demetrius's Test positive Genna test: positive right side / left side Thigh Thrust Test Sacral Thrust Test Assessment and plan: Chronic low back pain secondary to lumbar degenerative disc disease , lumbar spondylosis with facet arthropathy without myelopathy Chronic and current use of high-risk medication (Opioids). The patient was counseled about risk of opioid use, psychological risk associated with opioids and was orally counseled to not overuse , divert or sell medications. Pt is to store medication in a safe location. The patient is counseled against driving while using narcotic medications and also not to use alcohol or any illicit recreational drugs. Patient verbalized understanding that the lack of compliance will result in failure to renew narcotic prescription(s) as well as possible discharge from the clinic Diagnoses, prognosis and treatment options including but not limited to physical therapy, surgical interventions, interventional therapies and medication management including narcotics and adjuvant medication were discussed. All patient questions answered MAPS reviewed and it was appropriate. Urine for UDS collected today 02/15/22 Prescription for Mobic 15mg QD #30 w 1 refill. Neurontin discontinued due to documentation from Ced Mattson re: Neurontin abuse. Awaiting documentation as to why Fentanyl patches were discontinued. I have spent 50 minutes on patient care today. Dr Burks was available by phone for the evaluation of this patient. The time was used to review the medical records including relevant urine studies and Prescription history (MAPs), review of the available imaging, evaluation and examination of the patient, coordination of care with the medical staff and if applicable referring physicians, as well as creation of the medical record PQRS Narrative: Smoking Status Former smoker Narcotic Agreement Date Signed 12/21/21 Hx Alcohol Use (MH) No Home Medications: Ambulatory Orders amLODIPine BESYLATE/BENAZEPRIL [Lotrel 5-10 MG] 1 cap PO DAILY 09/09/20 Atorvastatin [Lipitor] 40 mg PO HS 30 Days #30 tab 04/20/21 Pantoprazole [Protonix] 40 mg PO BID 30 Days #60 tablet. 04/20/21 Amitriptyline HCl [Elavil] 25 mg PO HS 30 Days #30 tablet 10/31/21 Diphenoxylate HCl/Atropine [Lomotil 2.5-0.025 mg Tablet] 1 - 2 tab PO Q8H PRN 30 Days #120 tab 12/21/21 Gabapentin [Neurontin] 600 mg PO TID 30 Days #90 tab 12/21/21 fentaNYL 50MCG/HR PATCH [Duragesic 50MCG/HR] 1 patch TRANSDERM Q72H 30 Days #10 patch 12/21/21 fentaNYL 50MCG/HR PATCH [Duragesic 50MCG/HR] 50 mcg TRANSDERM Q72H 30 Days #10 patch 12/21/21 traMADol HCL 0 mg PO BID PRN 30 Days #60 tablet 12/21/21 traMADol HCL [Ultram] 50 mg PO Q12HR PRN 30 Days #60 tab 12/21/21 Diclofenac Sodium Gel [Voltaren Gel] 100 gm TOPICAL BID 30 Days #100 gm 01/05/22 Naproxen [EC-Naprosyn] 500 mg PO BID-W/MEALS 30 Days #60 tab 01/05/22 traMADol HCl [Ultram] 50 mg PO Q12HR PRN 7 Days #14 tab 02/08/22 Controlled Substance Measures - Controlled Substance Measures Is patient prescribed a controlled substance at discharge?: No
[2022-02-15 15:18] VITALS: BP 115/78; PULSE 95; RESP 12; TEMP 98.9
== END | disposition home or self-care (01) ==
LOC: PNWHC3 13:40
PROVIDERS: ATTEND Specialist
DX: M47.896 Other spondylosis, lumbar region (principal); M51.36 Other intervertebral disc degeneration, lumbar region; Z79.891 Long term (current) use of opiate analgesic
CPT/HCPCS: 99211

== ENCOUNTER → 2022-02-15 | Outpatient (CLI) | payer BC ==
[2022-02-16 10:25] LABS: Serum Amphetamine Negative; Serum Barbiturates Negative; Serum Benzodiazepine Negative; Serum Cocaine Negative; Serum Methadone Negative; Serum Opiates Negative; Serum Phencyclidine Negative; Serum Propoxyphene Negative; Serum THC (Cannabis) Negative
== END | disposition home or self-care (01) ==
LOC: LABWHC1 15:20
PROVIDERS: ATTEND Physician Assistant Medical
DX: Z02.83 Encounter for blood-alcohol and blood-drug test (principal)
CPT/HCPCS: 36415; 80307

== ENCOUNTER 2022-02-27 07:12 | Emergency (ER) | payer BC ==
[2022-02-27 07:19] VITALS: BP 122/79; PULSE 91; RESP 87; TEMP 98.3
[2022-02-27] MEDS ORDERED: ONDANSETRON 4 MG/2 ML VIAL IVP STA (07:52)
[2022-02-27] MEDS ORDERED: HYDROmorphone 0.5 MG/0.5 ML SYRINGE IVP STA (07:52)
--- NOTE | 2022-02-27 08:15 | ED ---
Abdominal Pain HPI - General Chief Complaint: Abdominal Pain Stated Complaint: post op abd pain Time Seen by Provider: 02/27/22 07:18 Source: patient, EMS Mode of arrival: EMS Limitations: no limitations - History of Present Illness Initial Comments: 66-year-old female well-known to the emergency department resents today for abdominal pain. Patient does have history of chronic abdominal pain, recurrent pancreatitis and opiate dependence. Patient reports that she had surgery at [facility] for perforated bowel 2 weeks ago. Patient was discharged home and had normal follow-up appointment. This morning the patient awoke and her dog jumped on her abdomen. She began having intense abdominal pain and therefore called and EMS. She denies any issues with her bowel or bladder function. Does admit to vomiting with a scant amount of blood. She is not currently on any medications for pain control. Reports that she took her last [place] yesterday. Patient was recently in a pain contract up until the 15th of this month but states she was kicked off of the plan due to missed appointments. Review the patient's chart reveals that the patient presented to [facility] and was trying to hide several fentanyl patches that she was wearing. Because of this Dr. de removed her from pain contract. Patient denies any fevers or chills. No other alleviating, precipitating vomiting factors - Related Data Home Medications Medication Instructions Recorded Confirmed amLODIPine BESYLATE/BENAZEPRIL 1 cap PO DAILY 09/09/20 02/27/22 [Lotrel 5-10 MG] Albuterol Inhaler [Ventolin Hfa 1 - 2 puff INHALATION RT-Q4H PRN 02/27/22 02/27/22 Inhaler] HYDROcodone/APAP 5-325MG [[place] 1 tab PO Q4HR PRN 02/27/22 02/27/22 5-325] Naproxen [EC-Naprosyn] 500 mg PO BID 02/27/22 02/27/22 Pantoprazole [Protonix] 40 mg PO DAILY 02/27/22 02/27/22 traMADol HCL 50 mg PO Q12H PRN 02/27/22 02/27/22 Previous Rx's Medication Instructions Recorded Diphenoxylate HCl/Atropine 1 - 2 tab PO Q8H PRN 30 Days #120 12/21/21 [Lomotil 2.5-0.025 mg Tablet] tab Gabapentin [Neurontin] 600 mg PO TID 30 Days #90 tab 12/21/21 Meloxicam [Mobic] 7.5 mg PO DAILY 30 Days #30 tab 02/15/22 Allergies Allergy/AdvReac Type Severity Reaction Status Date / Time No Known Allergies Allergy Verified 03/03/22 10:04 Review of Systems ROS Statement: Those systems with pertinent positive or pertinent negative responses have been documented in the HPI. ROS Other: All systems not noted in ROS Statement are negative. 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/hx fx l2, hx anemia History of Any Multi-Drug Resistant Organisms: None Reported Past Surgical History: Appendectomy, Back Surgery, Cholecystectomy, Hernia Repair, Orthopedic Surgery, Tonsillectomy Additional Past Surgical History / Comment(s): Umbilical hernia repair (10/20/21), Pancreatic stents-since removed, 6 back surgeries with 2 fusions, right fallopian tube due to ectopic , EGD/colonoscopy, right leg alice inserted d/t fracture, BACK SURGERY-REMOVED OLD HARDWARE AND PUT IN NEW HARDWARE 09/28/20, bowel rupture surgery Past Anesthesia/Blood Transfusion Reactions: No Reported Reaction Additional Past Anesthesia/Blood Transfusion Reaction / Comment(s): DIFF IV STARTS. Pt has received blood in past without reaction. Past Psychological History: No Psychological Hx Reported Smoking Status: Current every day smoker Past Alcohol Use History: None Reported Past Drug Use History: None Reported - Past Family History Father Family Medical History: Cancer Mother Family Medical History: Cancer, CVA/TIA Additional Family Medical History / Comment(s): Breast and colon cancer. General Exam Limitations: no limitations General appearance: alert, in no apparent distress Head exam: Present: atraumatic, normocephalic, normal inspection Eye exam: Present: normal appearance, PERRL, EOMI. Absent: scleral icterus, conjunctival injection, periorbital swelling ENT exam: Present: normal exam, mucous membranes moist Neck exam: Present: normal inspection. Absent: tenderness, meningismus, lymphadenopathy Respiratory exam: Present: normal lung sounds bilaterally. Absent: respiratory distress, wheezes, rales, rhonchi, stridor Cardiovascular Exam: Present: regular rate, normal rhythm, normal heart sounds. Absent: systolic murmur, diastolic murmur, rubs, gallop, clicks GI/Abdominal exam: Present: soft, tenderness (generalized), normal bowel sounds. Absent: distended, guarding, rebound, rigid Extremities exam: Present: normal inspection, full ROM, normal capillary refill. Absent: tenderness, pedal edema, joint swelling, calf tenderness Back exam: Present: normal inspection Neurological exam: Present: alert, oriented X3, CN II-XII intact Psychiatric exam: Present: normal affect, normal mood Skin exam: Present: warm, dry, intact, normal color. Absent: rash Course Vital Signs 02/27/22 07:13 Temperature 98.3 F Pulse Rate 91 Respiratory 87 H Rate Blood Pressure 122/79 O2 Sat by Pulse 100 Oximetry Medical Decision Making - Medical Decision Making Upon arrival patient was placed into room 3. History and physical exam is performed. IV access established laboratory studies were conducted. Patient requesting pain medication and refuses Toradol as she states that it does not work for her. Laboratory studies are reviewed. KUB performed which demonst rates no signs of free air. Patient resting comfortably in bed. Patient feels comfortable for discharge home at this time. Instructed to follow up with her surgeon and return for any new or worsening symptoms. Patient discharged home in stable condition - Lab Data Result diagrams: 02/27/22 08:07 02/27/22 08:07 Lab Results 02/27/22 02/27/22 Range/Units 08:07 08:07 WBC 8.7 (3.8-10.6) k/uL RBC 4.07 (3.80-5.40) m/uL Hgb 11.8 (11.4-16.0) gm/dL Hct 37.7 (34.0-46.0) % MCV 92.6 (80.0-100.0) fL MCH 29.1 (25.0-35.0) pg MCHC 31.4 (31.0-37.0) g/dL RDW 14.4 (11.5-15.5) % Plt Count 456 H (150-450) k/uL MPV 8.1 Neutrophils % 60 % Lymphocytes % 31 % Monocytes % 4 % Eosinophils % 4 % Basophils % 1 % Neutrophils # 5.2 (1.3-7.7) k/uL Lymphocytes # 2.7 (1.0-4.8) k/uL Monocytes # 0.3 (0-1.0) k/uL Eosinophils # 0.3 (0-0.7) k/uL Basophils # 0.1 (0-0.2) k/uL Hypochromasia Moderate Sodium 139 (137-145) mmol/L Potassium 4.3 (3.5-5.1) mmol/L Chloride 107 (98-107) mmol/L Carbon Dioxide 23 (22-30) mmol/L Anion Gap 9 mmol/L BUN 14 (7-17) mg/dL Creatinine 0.59 (0.52-1.04) mg/dL Est GFR (CKD-EPI)AfAm >90 (>60 ml/min/1.73 sqM) Est GFR (CKD-EPI)NonAf >90 (>60 ml/min/1.73 sqM) Glucose 123 H (74-99) mg/dL Calcium 9.2 (8.4-10.2) mg/dL Total Bilirubin 0.3 (0.2-1.3) mg/dL AST 16 (14-36) U/L ALT 9 (4-34) U/L Alkaline Phosphatase 82 (38-126) U/L Total Protein 6.9 (6.3-8.2) g/dL Albumin 4.1 (3.5-5.0) g/dL Lipase 137 (23-300) U/L Disposition Clinical Impression: Abdominal pain Disposition: HOME SELF-CARE Condition: Stable Instructions (If sedation given, give patient instructions): Abdominal Pain (ED) Additional Instructions: Please follow-up with your primary care doctor in 2 to 4 days and return for any new or worsening symptoms Is patient prescribed a controlled substance at d/c from ED?: No Referrals: Isac Calvin MD [Primary Care Provider] - 1-2 days Time of Disposition: 08:56
[2022-02-27 08:19] LABS: Basophils # (A) 0.1 k/uL (0-0.2); Basophils % (A) 1 %; Eosinophils # (A) 0.3 k/uL (0-0.7); Eosinophils % (A) 4 %; HCT 37.7 % (34.0-46.0); HGB 11.8 gm/dL (11.4-16.0); Hypochromasia Moderate; Lymphocytes # (A) 2.7 k/uL (1.0-4.8); Lymphocytes % (A) 31 %; MCH 29.1 pg (25.0-35.0); MCHC 31.4 g/dL (31.0-37.0); MCV 92.6 fL (80.0-100.0); Mean Platelet Volume 8.1; Monocytes # (A) 0.3 k/uL (0-1.0); Monocytes % (A) 4 %; Neutrophils # (A) 5.2 k/uL (1.3-7.7); Neutrophils % (A) 60 %; Platelet Count 456 k/uL (150-450); RBC 4.07 m/uL (3.80-5.40); RDW 14.4 % (11.5-15.5); WBC 8.7 k/uL (3.8-10.6)
[2022-02-27 08:35] LABS: ALT 9 U/L (4-34); AST 16 U/L (14-36); African American GFR (CKD) >90 (>60 ml/min/1.73 sqM); Albumin 4.1 g/dL (3.5-5.0); Alkaline Phosphatase 82 U/L (38-126); Anion Gap 9 mmol/L; Blood Urea Nitrogen 14 mg/dL (7-17); Calcium 9.2 mg/dL (8.4-10.2); Carbon Dioxide 23 mmol/L (22-30); Chloride 107 mmol/L (98-107); Glucose 123 mg/dL (74-99); Lipase 137 U/L (23-300); Non-African American GFR(CKD) >90 (>60 ml/min/1.73 sqM); Potassium 4.3 mmol/L (3.5-5.1); Sodium 139 mmol/L (137-145); Total Bilirubin 0.3 mg/dL (0.2-1.3); Total Protein 6.9 g/dL (6.3-8.2)
--- NOTE | 2022-02-27 08:45 | XR ---
EXAMINATION TYPE: XR KUB DATE OF EXAM: 02/27/2022 COMPARISON: Will 1620 INDICATION: Abdomen pain TECHNIQUE: Single view abdomen frontal projection FINDINGS: There is a nonspecific bowel gas pattern. Psoas margins are not well visualized. No organomegaly is present. Left renal calcifications may be present. Fixation rods and pedicle screws are present through the thoracic and lumbar spine within the field o f view. IMPRESSION: 1. No acute radiographic abnormality.
[2022-02-27] MEDS ORDERED: ACET/COD 300 MG/30 MG STARTER PACK 6 TAB BTL PO STA (09:21)
== END 2022-02-27 09:50 | disposition home or self-care (01) ==
LOC: EC 07:12
DX: R10.9 Unspecified abdominal pain (principal); J44.9 Chronic obstructive pulmonary disease, unspecified; K21.9 Gastro-esophageal reflux disease without esophagitis; Z86.73 Personal history of transient ischemic attack (TIA), and cerebral infarction without residual deficits; Z79.83 Long term (current) use of bisphosphonates; F17.200 Nicotine dependence, unspecified, uncomplicated
CPT/HCPCS: 36415; 80053; 83690; 85025; 74018; 99283; 96374; 96375; J2405; J1170

== ENCOUNTER 2022-03-03 09:44 | Emergency (ER) | payer BC ==
[2022-03-03 10:04] VITALS: RESP 18; TEMP 99.2
[2022-03-03] MEDS ORDERED: HYDROmorphone 1 MG/ML 1 ML SYRINGE IM STA (10:31)
--- NOTE | 2022-03-03 10:34 | ED ---
General Adult HPI - General Chief complaint: GI Bleed Stated complaint: abd pain Time Seen by Provider: 03/03/22 10:20 Source: patient, EMS, RN notes reviewed Mode of arrival: EMS - History of Present Illness Initial comments: Patient is a 66-year-old female known to the emergency room and this provider presents to the ER with complaints of abdominal pain and vomiting emesis. She was recently here in the emergency room with similar complaints however she reports her abdominal pain has worsened. At that time KUB was negative for acute findings and overall labs were stable. She received Zofran by EMS for her emesis and has had nausea here since arrival but no vomiting; none of her emesis was witnessed. She denies any fevers or chills. Her shortness of breath is at her baseline. 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 She was in the emergency room at [facility] for abdominal pain approximately 2 weeks ago where she underwent a bowel resection surgery by Dr. Campbell for perforated bowel due to small bowel obstruction. - Related Data Home Medications Medication Instructions Recorded Confirmed RX: amLODIPine BESYLATE/BENAZEPRIL 1 cap PO DAILY 09/09/20 02/27/22 [Lotrel 5-10 MG] Albuterol Inhaler [Ventolin Hfa 1 - 2 puff INHALATION RT-Q4H PRN 02/27/2202/02 Inhaler] HYDROcodone/APAP 5-325MG [[place] 1 tab PO Q4HR PRN 02/27/22 02/27/22 5-325] Naproxen [EC-Naprosyn] 500 mg PO BID 02/27/22 02/27/22 Pantoprazole [Protonix] 40 mg PO DAILY 02/27/22 02/27/22 RX: traMADol HCL 50 mg PO Q12H PRN 02/27/22 02/27/22 Previous Rx's Medication Instructions Recorded RX: Diphenoxylate HCl/Atropine 1 - 2 tab PO Q8H PRN 30 Days #120 12/21/21 [Lomotil 2.5-0.025 mg Tablet] tab RX: Gabapentin [Neurontin] 600 mg PO TID 30 Days #90 tab 12/21/21 Meloxicam [Mobic] 7.5 mg PO DAILY 30 Days #30 tab 02/15/22 Allergies Allergy/AdvReac Type Severity Reaction Status Date / Time No Known Allergies Allergy Verified 03/03/22 10:04 Review of Systems ROS Statement: Those systems with pertinent positive or pertinent negative responses have been documented in the HPI. ROS Other: All systems not noted in ROS Statement are negative. 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/hx fx l2, hx anemia History of Any Multi-Drug Resistant Organisms: None Reported Past Surgical History: Appendectomy, Back Surgery, Cholecystectomy, Hernia Repair, Orthopedic Surgery, Tonsillectomy Additional Past Surgical History / Comment(s): Umbilical hernia repair (), Pancreatic stents-since removed, 6 back surgeries with 2 fusions, right fallopian tube due to ectopic , EGD/colonoscopy, right leg alice inserted d/t fracture, BACK SURGERY-REMOVED OLD HARDWARE AND PUT IN NEW HARDWARE 09/28/20, bowel rupture surgery Past Anesthesia/Blood Transfusion Reactions: No Reported Reaction Additional Past Anesthesia/Blood Transfusion Reaction / Comment(s): DIFF IV STARTS. Pt has received blood in past without reaction. Past Psychological History: No Psychological Hx Reported Smoking Status: Current every day smoker Past Alcohol Use History: None Reported Past Drug Use History: None Reported - Past Family History Father Family Medical History: Cancer Mother Family Medical History: Cancer, CVA/TIA Additional Family Medical History / Comment(s): Breast and colon cancer. General Exam General appearance: alert, in no apparent distress, cachectic Head exam: Present: atraumatic, normocephalic, normal inspection Eye exam: Present: normal appearance. Absent: scleral icterus, conjunctival injection ENT exam: Present: normal exam, mucous membranes moist Neck exam: Present: normal inspection Respiratory exam: Present: decreased breath sounds. Absent: respiratory distress, wheezes, rales, rhonchi, accessory muscle use Cardiovascular Exam: Present: regular rate, normal rhythm, normal heart sounds. Absent: systolic murmur, diastolic murmur, rubs, gallop, clicks GI/Abdominal exam: Present: soft, distended (Slightly ), tenderness, normal bowel sounds Rectal exam: Present: deferred Extremities exam: Absent: pedal edema, joint swelling, calf tenderness Back exam: Present: normal inspection Neurological exam: Present: alert, oriented X3 Psychiatric exam: Present: normal affect, normal mood Skin exam: Present: warm, dry, intact, normal color. Absent: rash Course Vital Signs 03/03/22 03/03/22 09:58 14:14 Temperature 99.2 F Pulse Rate 91 84 Respiratory 18 18 Rate Blood Pressure 114/74 120/84 O2 Sat by Pulse 100 96 Oximetry Medical Decision Making - Medical Decision Making Due to worsening of symptoms with recent GI surgery and lower abdominal tenderness will check computed tomography scan of abdomen in the setting of recent KUB negative. Repeat CMP and CBC. WBC is mildly elevated, will add lactic acid, amylase, lipase and blood cultures. CT results discussed with surgeon on-call [facility] who advised patient to be transferred back to previous treating surgeon at [facility]. Case discussed with Dr. Angel at [facility] emergency room who is accepting patient for ER to ER transfer. We'll continue to give Dilaudid IV for pain as needed. We will start Zosyn prior to transfer. Blood pressure and heart rate stable. Hemodynamically stable. Case discussed with Dr. Patel. - Lab Data Result diagrams: 03/03/22 10:46 03/03/22 10:46 Lab Results 03/03/22 03/03/22 03/03/22 Range/Units 10:46 10:46 10:46 WBC 11.0 H (3.8-10.6) k/uL RBC 3.95 (3.80-5.40) m/uL Hgb 11.7 (11.4-16.0) gm/dL Hct 36.2 (34.0-46.0) % MCV 91.6 (80.0-100.0) fL MCH 29.5 (25.0-35.0) pg MCHC 32.2 (31.0-37.0) g/dL RDW 14.6 (11.5-15.5) % Plt Count 370 (150-450) k/uL MPV 7.9 Neutrophils % 76 % Lymphocytes % 16 % Monocytes % 5 % Eosinophils % 2 % Basophils % 1 % Neutrophils # 8.3 H (1.3-7.7) k/uL Lymphocytes # 1.8 (1.0-4.8) k/uL Monocytes # 0.5 (0-1.0) k/uL Eosinophils # 0.2 (0-0.7) k/uL Basophils # 0.1 (0-0.2) k/uL Hypochromasia Moderate Sodium 139 (137-145) mmol/L Potassium 4.4 (3.5-5.1) mmol/L Chloride 107 (98-107) mmol/L Carbon Dioxide 25 (22-30) mmol/L Anion Gap 7 mmol/L BUN 17 (7-17) mg/dL Creatinine 0.56 (0.52-1.04) mg/dL Est GFR (CKD-EPI)AfAm >90 (>60 ml/min/1.73 sqM) Est GFR (CKD-EPI)NonAf >90 (>60 ml/min/1.73 sqM) Glucose 122 H (74-99) mg/dL Calcium 9.5 (8.4-10.2) mg/dL Total Bilirubin 0.4 (0.2-1.3) mg/dL AST 16 (14-36) U/L ALT 9 (4-34) U/L Alkaline Phosphatase 86 (38-126) U/L Total Protein 7.4 (6.3-8.2) g/dL Albumin 4.2 (3.5-5.0) g/dL Amylase 51 (30-110) U/L Lipase 107 (23-300) U/L - Radiology Data Radiology results: report reviewed, image reviewed CT of the abdomen without contrast shows a limited exam due to comminution of motion, lack of contrast and extensive metal hardware artifact. 2. Branching air within the liver. Correlate with lactic acid levels for possible portal venous gas secondary to underlying bowel ischemia. 3. Abnormally distended duodenum and some left-sided jejunal loops measuring up to 5 cm. Ischemic bowel should be excluded. Overall findings do not clearly indicate extraction at this time no free air is seen. For additionally there is severe distention of the rectum was solid stool up to 8 cm wide. Associated rectal wall thickening and mild fat stranding disimpaction advised. Early ischemic stercoral colitis cannot be excluded. Disposition Clinical Impression: Abdominal pain, Colitis, Ischemic bowel disease Disposition: OTHER INSTITUTION NOT DEFINED Condition: Stable Instructions (If sedation given, give patient instructions): Abdominal Pain (ED) Is patient prescribed a controlled substance at d/c from ED?: No Referrals: Isac Calvin MD [Primary Care Provider] - 1-2 days Time of Disposition: 14:15 - Out of Hospital Transfer - Req. Specs Out of Hospital Transfer - Requested Specifics: Other Emergency Center ([facility])
[2022-03-03 11:11] LABS: ALT 9 U/L (4-34); AST 16 U/L (14-36); African American GFR (CKD) >90 (>60 ml/min/1.73 sqM); Albumin 4.2 g/dL (3.5-5.0); Alkaline Phosphatase 86 U/L (38-126); Anion Gap 7 mmol/L; Blood Urea Nitrogen 17 mg/dL (7-17); Calcium 9.5 mg/dL (8.4-10.2); Carbon Dioxide 25 mmol/L (22-30); Chloride 107 mmol/L (98-107); Glucose 122 mg/dL (74-99); Non-African American GFR(CKD) >90 (>60 ml/min/1.73 sqM); Potassium 4.4 mmol/L (3.5-5.1); Sodium 139 mmol/L (137-145); Total Bilirubin 0.4 mg/dL (0.2-1.3); Total Protein 7.4 g/dL (6.3-8.2)
[2022-03-03 11:15] LABS: Basophils # (A) 0.1 k/uL (0-0.2); Basophils % (A) 1 %; Eosinophils # (A) 0.2 k/uL (0-0.7); Eosinophils % (A) 2 %; HCT 36.2 % (34.0-46.0); HGB 11.7 gm/dL (11.4-16.0); Hypochromasia Moderate; Lymphocytes # (A) 1.8 k/uL (1.0-4.8); Lymphocytes % (A) 16 %; MCH 29.5 pg (25.0-35.0); MCHC 32.2 g/dL (31.0-37.0); MCV 91.6 fL (80.0-100.0); Mean Platelet Volume 7.9; Monocytes # (A) 0.5 k/uL (0-1.0); Monocytes % (A) 5 %; Neutrophils # (A) 8.3 k/uL (1.3-7.7); Neutrophils % (A) 76 %; Platelet Count 370 k/uL (150-450); RBC 3.95 m/uL (3.80-5.40); RDW 14.6 % (11.5-15.5)
--- NOTE | 2022-03-03 12:11 | CT ---
EXAMINATION TYPE: CT abdomen pelvis wo con DATE OF EXAM: 03/03/2022 COMPARISON: 04/18/2021 HISTORY: 66-year-old female Abdominal pain, vomiting blood/passing bloody stool. Recent bowel resecti on CT DLP: 422.8 mGycm. Automated exposure control for dose reduction was used. TECHNIQUE: Contiguous axial scanning of the abdomen and pelvis without IV contrast. Coronal and sagit rody reconstructions performed. FINDINGS: Heart normal size without pericardial effusion. Lung bases clear without pleural effusion. Continued intrahepatic and extrahepatic biliary ductal dilatation present back to 12/07/2020. New branc jenifer air within the liver may be portal venous air. There is extensive metal artifact from the patient's radical pelvic fusion hardware limiting evaluati on. The duodenum is patulous measuring up to 5.0 cm with air-fluid level. Proximal jejunum is patulous to 3.1 cm. Additional left-sided small bowel loops are dilated abnormally up to 4.0 cm. No definite ivette e air is seen. There is severe distention of the rectum with stool up to 8.2 cm wide with circumferential wall thick ening and mild surrounding fat stranding. Scattered moderate colonic stool burden on the right. Left-sided colonic diverticulosis. Lack of cont rast and extensive artifacts limits the assessment by we do not clearly see a dominant finding of acu te diverticulitis. Moderate scattered calcifications throughout the abdominal aorta. No renal calculi or hydronephrosis seen. Stable 1.4 cm right lower pole renal cortical cyst. Adrenal glands limited without gross abnormality. Spleen shows no gross abnormality. Chronic pancreatic calci fications compatible with chronic pancreatitis. No abnormal fluid collection seen in the pelvis. Bladder is urine distended. Bones: Previous intramedullary alice within the right femoral shaft. Yffn-by-imrmlxki degenerative adan ge at the hips. IMPRESSION: 1. Limited exam due to combination of motion, lack of contrast, and extensive metal hardware artifac t. 2. New branching air within the liver. Correlate with lactic acid levels for possible portal venous gas secondary to underlying bowel ischemia. 3. Abnormally distended duodenum and some left-sided jejunal loops measuring up to 5.0 cm. Ischemic bowel should be excluded. Overall findings do not clearly indicate obstruction at this time. No free air is seen. 4. Additionally, there is severe distention of the rectum with solid stool up to 8.0 cm wide. Associ ated rectal wall thickening and mild fat stranding. Disimpaction advised. Early ischemic stercoral co litis not excluded. 5. Incidental: Chronic pancreatitis changes, left-sided clonic diverticulosis, chronic distention of the biliary system.
[2022-03-03] MEDS ORDERED: HYDROmorphone 1 MG/ML 1 ML SYRINGE IVP STA (12:48)
[2022-03-03] MEDS ORDERED: PIPERACILLIN-TAZOBACTAM 3.375 GM in SODIUM CHLORIDE 0.9% 100 ML IVPB STA (13:12)
[2022-03-03 14:16] VITALS: BP 120/84; PULSE 84
[2022-03-03 14:45] LABS: Amylase 51 U/L (30-110); Lipase 107 U/L (23-300)
== END 2022-03-03 14:16 | disposition other institution (70) ==
LOC: EC 09:44
DX: K55.9 Vascular disorder of intestine, unspecified (principal); I10 Essential (primary) hypertension; Z86.73 Personal history of transient ischemic attack (TIA), and cerebral infarction without residual deficits; F17.200 Nicotine dependence, unspecified, uncomplicated
CPT/HCPCS: 36415; 80053; 82150; 83690; 85025; 74176; 99285; 96365; 96375; 96372; J2543; J1170

== ENCOUNTER 2022-03-09 12:17 | Emergency (ER) | payer BC ==
[2022-03-09 12:30] VITALS: RESP 18
[2022-03-09] MEDS ORDERED: KETOROLAC 15 MG/ML 1 ML VIAL IM STA (12:55)
[2022-03-09] MEDS ORDERED: HYDROmorphone 0.5 MG/0.5 ML SYRINGE IM STA (13:24)
--- NOTE | 2022-03-09 13:55 | XR ---
EXAMINATION TYPE: XR Hip LT and AP Pelvis DATE OF EXAM: 03/09/2022 COMPARISON: NONE HISTORY: Fall with pain TECHNIQUE: A single AP view of the pelvis is obtained. Two views of the left hip are obtained. FINDINGS: There is no acute fracture/dislocation evident in the pelvis. The hip and sacroiliac join ts appear symmetric and unremarkable. The overlying soft tissue appears unremarkable. Postoperative changes lumbosacral regions with pedicular screws in place. Two views of left hip show no acute fracture or dislocation. No focal lytic or sclerotic lesion seen in the proximal left femur. The overlying soft tissue is unremarkable. IMPRESSION: There is no acute fracture or dislocation in the pelvis or left hip.
--- NOTE | 2022-03-09 14:42 | ED ---
General Adult HPI - General Chief complaint: Fall Stated complaint: Fall Left Hip Pain Time Seen by Provider: 03/09/22 12:30 Source: patient, EMS, RN notes reviewed, old records reviewed Mode of arrival: EMS Limitations: no limitations - History of Present Illness Initial comments: This is a 66-year-old female who presents emergency Department complaining of left hip pain. Patient states she tripped over her Her Left Hip. Patient Denies Any Knee Pain or Ankle Pain. Patient States She Did Not Hit Her Head or Neck. Patient Denies Any Other Injury at This Time. - Related Data Home Medications Medication Instructions Recorded Confirmed amLODIPine BESYLATE/BENAZEPRIL 1 cap PO DAILY 09/09/20 02/27/22 [Lotrel 5-10 MG] Albuterol Inhaler [Ventolin Hfa 1 - 2 puff INHALATION RT-Q4H PRN 02/27/22 02/27/22 Inhaler] HYDROcodone/APAP 5-325MG [[place] 1 tab PO Q4HR PRN 02/27/22 02/27/22 5-325] Naproxen [EC-Naprosyn] 500 mg PO BID 02/27/22 02/27/22 Pantoprazole [Protonix] 40 mg PO DAILY 02/27/22 02/27/22 traMADol HCL 50 mg PO Q12H PRN 02/27/22 02/27/22 Previous Rx's Medication Instructions Recorded Diphenoxylate HCl/Atropine 1 - 2 tab PO Q8H PRN 30 Days #120 12/21/21 [Lomotil 2.5-0.025 mg Tablet] tab Gabapentin [Neurontin] 600 mg PO TID 30 Days #90 tab 12/21/21 Meloxicam [Mobic] 7.5 mg PO DAILY 30 Days #30 tab 02/15/22 Allergies Allergy/AdvReac Type Severity Reaction Status Date / Time No Known Allergies Allergy Verified 03/09/22 12:30 Review of Systems ROS Statement: Those systems with pertinent positive or pertinent negative responses have been documented in the HPI. ROS Other: All systems not noted in ROS Statement are negative. 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/hx fx l2, hx anemia History of Any Multi-Drug Resistant Organisms: None Reported Past Surgical History: Appendectomy, Back Surgery, Cholecystectomy, Hernia Repair, Orthopedic Surgery, Tonsillectomy Additional Past Surgical History / Comment(s): Umbilical hernia repair (10/20/21), Pancreatic stents-since removed, 6 back surgeries with 2 fusions, right fallopian tube due to ectopic , EGD/colonoscopy, right leg alice inserted d/t fracture, BACK SURGERY-REMOVED OLD HARDWARE AND PUT IN NEW HARDWARE 09/28/20, bowel rupture surgery Past Anesthesia/Blood Transfusion Reactions: No Reported Reaction Additional Past Anesthesia/Blood Transfusion Reaction / Comment(s): DIFF IV STARTS. Pt has received blood in past without reaction. Past Psychological History: No Psychological Hx Reported Smoking Status: Current every day smoker Past Alcohol Use History: None Reported Past Drug Use History: None Reported - Past Family History Father Family Medical History: Cancer Mother Family Medical History: Cancer, CVA/TIA Additional Family Medical History / Comment(s): Breast and colon cancer. General Exam - General Exam Comments Initial Comments: GENERAL Patient is well-developed and well-nourished. Patient is in mild distress. EYES Patient's pupils are equal and round. Extraocular motion is intact SKIN Unremarkable NEURO The patient is alert and oriented 3 PYSCH Patient has normal interpersonal interactions. MUSCULOSKELETAL Patient has tenderness to the lateral aspect of her hip which has full range of passive motion Limitations: no limitations Course Vital Signs 03/09/22 12:23 Temperature 99.2 F Pulse Rate 89 Respiratory 18 Rate Blood Pressure 139/87 O2 Sat by Pulse 98 Oximetry Medical Decision Making - Medical Decision Making Patient was able to ambulate with minimal pain. Disposition Clinical Impression: Contusion, hip Disposition: HOME SELF-CARE Condition: Good Instructions (If sedation given, give patient instructions): Fall Prevention for Older Adults (ED), Hip Contusion (ED) Is patient prescribed a controlled substance at d/c from ED?: No Referrals: Isac Calvin MD [Primary Care Provider] - 1-2 days Time of Disposition: 14:15
[2022-03-09] MEDS ORDERED: NITROGLYCERIN SL TABS 0.4 MG TAB SUBLINGUAL PRN (14:56)
[2022-03-09] MEDS ORDERED: ACET/COD 300 MG/30 MG STARTER PACK 6 TAB BTL PO STA (15:04)
[2022-03-09 15:09] VITALS: BP 150/84; PULSE 79; TEMP 97.8
[2022-03-09] MEDS ORDERED: NITROGLYCERIN OINT 1 INCH/GM PACKET TOPICAL SCH (18:00)
[2022-03-10] MEDS ORDERED: ASPIRIN 325 MG TAB PO SCH (09:00)
== END 2022-03-09 15:11 | disposition home or self-care (01) ==
LOC: EC 12:17
DX: S70.02XA Contusion of left hip, initial encounter (principal); J44.9 Chronic obstructive pulmonary disease, unspecified; K21.9 Gastro-esophageal reflux disease without esophagitis; Z79.83 Long term (current) use of bisphosphonates; I10 Essential (primary) hypertension; F17.200 Nicotine dependence, unspecified, uncomplicated; W01.0XXA Fall on same level from slipping, tripping and stumbling without subsequent striking against object, initial encounter
CPT/HCPCS: 73502; 99284; 96372; J1170

== ENCOUNTER 2022-03-17 13:34 | Emergency (ER) | payer BC ==
[2022-03-17 13:46] VITALS: BP 127/75; PULSE 87; RESP 20; TEMP 98.2
[2022-03-17] MEDS ORDERED: MORPHINE SULFATE 4 MG/ML SYRINGE IV STA (15:21)
[2022-03-17] MEDS ORDERED: METOCLOPRAMIDE 5 MG/ML 2 ML VIAL IVP STA (15:21)
[2022-03-17] MEDS ORDERED: PANTOPRAZOLE 40 MG/10 ML VIAL IVP STA (15:21)
[2022-03-17] MEDS ORDERED: SODIUM CHLORIDE 0.9% 1,000 ML IV STA (15:21)
[2022-03-17] MEDS ORDERED: diphenhydrAMINE 50 MG/ML 1 ML VIAL IVP STA (15:21)
--- NOTE | 2022-03-17 15:46 | ED ---
General Adult HPI - General Chief complaint: Abdominal Pain Stated complaint: ABD Pain Time Seen by Provider: 03/17/22 15:22 Source: patient, RN notes reviewed, old records reviewed Mode of arrival: ambulatory Limitations: no limitations - History of Present Illness Initial comments: Patient is a 66 on female with a past medical history remarkable for COPD, prior CVA with residual left-sided minor weakness, hypertension, small bowel resection secondary to small bowel obstruction, chronic pancreatitis who presents emergency Department complaining of her typical chronic pancreatitis pain. Describes as epigastric in nature with radiation to the back. Endorses nausea as well as multiple episodes of emesis.. Began last night. His no urinary complaints. Denies diarrhea. Denies change in stooling. Denies chest pain, shortness of breath. Has no other acute complaints at this time. Patient was seen earlier this month for intractable abdominal pain as well which was different at that time and she was transferred to an outside hospital due CT findings to the surgeon that completed her surgery. States no further intervention was done at the hospital. Presents for further evaluation and pain control at this time. No history of cardiac disease per patient. - Related Data Home Medications Medication Instructions Recorded Confirmed amLODIPine BESYLATE/BENAZEPRIL 1 cap PO DAILY 09/09/20 03/17/22 [Lotrel 5-10 MG] Naproxen [EC-Naprosyn] 500 mg PO BID 02/27/22 03/17/22 Pantoprazole [Protonix] 40 mg PO DAILY 02/27/22 03/17/22 Previous Rx's Medication Instructions Recorded Meloxicam [Mobic] 7.5 mg PO DAILY 30 Days #30 tab 02/15/22 Ondansetron Odt [Zofran Odt] 4 mg PO Q8HR PRN 3 Days #9 tab 03/17/22 Allergies Allergy/AdvReac Type Severity Reaction Status Date / Time No Known Allergies Allergy Verified 03/17/22 17:41 Review of Systems ROS Statement: Those systems with pertinent positive or pertinent negative responses have been documented in the HPI. Review of Systems: CONST: Denies fever EYES: Denies blurry vision ENT: Denies nasal congestion C/V: Denies Chest pain RESP: Denies shortness of breath GI: Endorses abdominal pain : Denies dysuria SKIN: Denies rash. MSK: Denies joint pain. NEURO: Denies headache ROS Other: All systems not noted in ROS Statement are negative. 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/hx fx l2, hx anemia History of Any Multi-Drug Resistant Organisms: None Reported Past Surgical History: Appendectomy, Back Surgery, Cholecystectomy, Hernia Repair, Orthopedic Surgery, Tonsillectomy Additional Past Surgical History / Comment(s): Umbilical hernia repair (10/20/21), Pancreatic stents-since removed, 6 back surgeries with 2 fusions, right fallopian tube due to ectopic , EGD/colonoscopy, right leg alice inserted d/t fracture, BACK SURGERY-REMOVED OLD HARDWARE AND PUT IN NEW HARDWARE 09/28/20, bowel rupture surgery Past Anesthesia/Blood Transfusion Reactions: No Reported Reaction Additional Past Anesthesia/Blood Transfusion Reaction / Comment(s): DIFF IV STARTS. Pt has received blood in past without reaction. Past Psychological History: No Psychological Hx Reported Smoking Status: Current every day smoker Past Alcohol Use History: None Reported Past Drug Use History: None Reported - Past Family History Father Family Medical History: Cancer Mother Family Medical History: Cancer, CVA/TIA Additional Family Medical History / Comment(s): Breast and colon cancer. General Exam - General Exam Comments Initial Comments: General: Appears in no acute distress. HEAD: Normal with no signs of head trauma. EYES: PERRLA, EOMI, conjunctiva normal, no discharge. ENT: Hearing grossly intact, normal oropharynx. RESPIRATORY: Clear breath sounds bilaterally. No wheezes, rales, or rhonchi. C/V: Regular rate and rhythm. S1 and S2 auscultated, no edema, peripheral pulses 2+ and intact throughout ABD: Abdomen soft, nondistended. Mild tenderness to palpation in the epigastric region. No guarding. No rebound tenderness. No peritoneal signs. EXT: Normal range of motion, no obvious deformity SKIN: No rashes or lesions observed on exposed skin. NEURO: Alert and oriented 4. Limitations: no limitations Course Vital Signs 03/17/22 13:44 Temperature 98.2 F Pulse Rate 87 Respiratory 20 Rate Blood Pressure 127/75 O2 Sat by Pulse 99 Oximetry Medical Decision Making - Medical Decision Making Based on the patient's presentation and physical exam, do believe it is likely an intra-abdominal process for current symptoms. Suspect chronic pancreatitis but cannot rule out other intra-abdominal process at this time, she does have a history of extensive surgeries to the abdomen including relatively recent small bowel resection. We will obtain basic laboratory studies, as well as a screening cardiac workup for possible atypical ACS presentation. Patient was in agreement with this plan. She'll be given IV analgesic medications as well as IV fluids. Also obtain a CT abdomen and pelvis. Vital signs are within normal limits.EKG shows no signs of acute ischemia. Laboratory studies are all unremarkable. Troponin is undetectable. Urine does show white blood cells but has no urinary complaints at this time. Patient does have a chronic anemia. CT imaging shows no acute findings. Chest x-ray shows no acute cardiopulmonary process. Prior to CT, patient requested repeat pain medication. On reevaluation, she is feeling improved. We discussed results pressure-like to go home. I believe this is reasonable. She tolerated oral intake. sHe'll be discharged, this time with strict return precautions. Vital signs remain within normal limits. I will provide the patient with a prescription for ODT Zofran. I instructed the patient to follow up with their PCP in the next 1-3 days. I explained that the patient should return to the emergency department if they experience any worsening symptoms. Strict return precautions were discussed with the patient. The patient expressed understanding of these instructions. I answered all questions that the patient had. The patient was discharged home in good condition with their prescriptions and follow up information. - Lab Data Result diagrams: 03/17/22 16:00 03/17/22 15:30 Lab Results 03/17/22 03/17/22 03/17/22 Range/Units 15:30 15:30 15:30 WBC (3.8-10.6) k/uL RBC (3.80-5.40) m/uL Hgb (11.4-16.0) gm/dL Hct (34.0-46.0) % MCV (80.0-100.0) fL MCH (25.0-35.0) pg MCHC (31.0-37.0) g/dL RDW (11.5-15.5) % Plt Count (150-450) k/uL MPV Neutrophils % % Lymphocytes % % Monocytes % % Eosinophils % % Basophils % % Neutrophils # (1.3-7.7) k/uL Lymphocytes # (1.0-4.8) k/uL Monocytes # (0-1.0) k/uL Eosinophils # (0-0.7) k/uL Basophils # (0-0.2) k/uL Hypochromasia PT (9.0-12.0) sec INR (<1.2) APTT (22.0-30.0) sec Sodium 140 (137-145) mmol/L Potassium 3.7 (3.5-5.1) mmol/L Chloride 110 H (98-107) mmol/L Carbon Dioxide 20 L (22-30) mmol/L Anion Gap 10 mmol/L BUN 9 (7-17) mg/dL Creatinine 0.62 (0.52-1.04) mg/dL Est GFR (CKD-EPI)AfAm >90 (>60 ml/min/1.73 sqM) Est GFR (CKD-EPI)NonAf >90 (>60 ml/min/1.73 sqM) Glucose 94 (74-99) mg/dL Plasma Lactic Acid Derek 0.9 (0.7-2.0) mmol/L Calcium 9.2 (8.4-10.2) mg/dL Total Bilirubin 1.0 (0.2-1.3) mg/dL AST 20 (14-36) U/L ALT 11 (4-34) U/L Alkaline Phosphatase 82 (38-126) U/L Troponin I <0.012 (0.000-0.034) ng/mL Total Protein 7.4 (6.3-8.2) g/dL Albumin 4.3 (3.5-5.0) g/dL Amylase 53 (30-110) U/L Lipase 133 (23-300) U/L Urine Color Urine Appearance (Clear) Urine pH (5.0-8.0) Ur Specific Baxter (1.001-1.035) Urine Protein (Negative) Urine Glucose (UA) (Negative) Urine Ketones (Negative) Urine Blood (Negative) Urine Nitrite (Negative) Urine Bilirubin (Negative) Urine Urobilinogen (<2.0) mg/dL Ur Leukocyte Esterase (Negative) Urine RBC (0-5) /hpf Urine WBC (0-5) /hpf Ur Squamous Epith Cells (0-4) /hpf Urine Mucus (None) /hpf 03/17/22 03/17/22 03/17/22 Range/Units 16:00 16:29 16:34 WBC 6.6 (3.8-10.6) k/uL RBC 3.76 L (3.80-5.40) m/uL Hgb 10.5 L (11.4-16.0) gm/dL Hct 33.5 L (34.0-46.0) % MCV 89.1 (80.0-100.0) fL MCH 28.0 (25.0-35.0) pg MCHC 31.4 (31.0-37.0) g/dL RDW 14.3 (11.5-15.5) % Plt Count 413 (150-450) k/uL MPV 7.7 Neutrophils % 58 % Lymphocytes % 30 % Monocytes % 6 % Eosinophils % 4 % Basophils % 0 % Neutrophils # 3.9 (1.3-7.7) k/uL Lymphocytes # 2.0 (1.0-4.8) k/uL Monocytes # 0.4 (0-1.0) k/uL Eosinophils # 0.3 (0-0.7) k/uL Basophils # 0.0 (0-0.2) k/uL Hypochromasia Slight PT 10.2 (9.0-12.0) sec INR 0.9 (<1.2) APTT 20.3 L (22.0-30.0) sec Sodium (137-145) mmol/L Potassium (3.5-5.1) mmol/L Chloride (98-107) mmol/L Carbon Dioxide (22-30) mmol/L Anion Gap mmol/L BUN (7-17) mg/dL Creatinine (0.52-1.04) mg/dL Est GFR (CKD-EPI)AfAm (>60 ml/min/1.73 sqM) Est GFR (CKD-EPI)NonAf (>60 ml/min/1.73 sqM) Glucose (74-99) mg/dL Plasma Lactic Acid Derek (0.7-2.0) mmol/L Calcium (8.4-10.2) mg/dL Total Bilirubin (0.2-1.3) mg/dL AST (14-36) U/L ALT (4-34) U/L Alkaline Phosphatase (38-126) U/L Troponin I (0.000-0.034) ng/mL Total Protein (6.3-8.2) g/dL Albumin (3.5-5.0) g/dL Amylase (30-110) U/L Lipase (23-300) U/L Urine Color Yellow Urine Appearance Cloudy H (Clear) Urine pH 6.0 (5.0-8.0) Ur Specific Baxter 1.021 (1.001-1.035) Urine Protein 1+ H (Negative) Urine Glucose (UA) Negative (Negative) Urine Ketones Negative (Negative) Urine Blood Trace H (Negative) Urine Nitrite Negative (Negative) Urine Bilirubin Negative (Negative) Urine Urobilinogen <2.0 (<2.0) mg/dL Ur Leukocyte Esterase Negative (Negative) Urine RBC 15 H (0-5) /hpf Urine WBC 23 H (0-5) /hpf Ur Squamous Epith Cells 2 (0-4) /hpf Urine Mucus Rare H (None) /hpf - EKG Data -: EKG Interpreted by Me EKG Comments: 12-lead Electrocardiogram Interpretation Note EKG was reviewed and interpreted by myself. 12-lead ECG performed at 1654 is interpreted by me as revealing normal sinus rhythm at a rate of 65 beats per minute. [place] is normal. WA interval is 150 ms, QRS duration 70 ms, QTc is 453 ms.. There were no ST or T wave abnormalities to suggest myocardial ischemia or injury. R wave progression across the precordium was satisfactory. By my interpretation this EKG is non-diagnostic for acute ischemia. Disposition Clinical Impression: Abdominal pain of unknown cause, Chronic abdominal pain Disposition: HOME SELF-CARE Condition: Good Instructions (If sedation given, give patient instructions): Abdominal Pain (ED) Prescriptions: Ondansetron Odt [Zofran Odt] 4 mg PO Q8HR PRN 3 Days #9 tab PRN Reason: Nausea Is patient prescribed a controlled substance at d/c from ED?: No Referrals: Isac Calvin MD [Primary Care Provider] - 1-2 days Time of Disposition: 18:25
[2022-03-17 15:53] LABS: ALT 11 U/L (4-34); AST 20 U/L (14-36); African American GFR (CKD) >90 (>60 ml/min/1.73 sqM); Albumin 4.3 g/dL (3.5-5.0); Alkaline Phosphatase 82 U/L (38-126); Amylase 53 U/L (30-110); Anion Gap 10 mmol/L; Blood Urea Nitrogen 9 mg/dL (7-17); Calcium 9.2 mg/dL (8.4-10.2); Carbon Dioxide 20 mmol/L (22-30); Chloride 110 mmol/L (98-107); Glucose 94 mg/dL (74-99); Lipase 133 U/L (23-300); Non-African American GFR(CKD) >90 (>60 ml/min/1.73 sqM); Potassium 3.7 mmol/L (3.5-5.1); Sodium 140 mmol/L (137-145); Total Protein 7.4 g/dL (6.3-8.2)
[2022-03-17 16:21] LABS: Basophils % (A) 0 %; Eosinophils # (A) 0.3 k/uL (0-0.7); Eosinophils % (A) 4 %; HCT 33.5 % (34.0-46.0); HGB 10.5 gm/dL (11.4-16.0); Hypochromasia Slight; Lymphocytes % (A) 30 %; MCHC 31.4 g/dL (31.0-37.0); MCV 89.1 fL (80.0-100.0); Mean Platelet Volume 7.7; Monocytes # (A) 0.4 k/uL (0-1.0); Monocytes % (A) 6 %; Neutrophils # (A) 3.9 k/uL (1.3-7.7); Neutrophils % (A) 58 %; Platelet Count 413 k/uL (150-450); RBC 3.76 m/uL (3.80-5.40); RDW 14.3 % (11.5-15.5); WBC 6.6 k/uL (3.8-10.6)
--- NOTE | 2022-03-17 16:43 | XR ---
EXAMINATION TYPE: XR chest 1V portable DATE OF EXAM: 03/17/2022 COMPARISON: 09/23/2020 HISTORY: Shortness of breath TECHNIQUE: Frontal and lateral views of the chest are obtained. FINDINGS: Scattered senescent parenchymal changes noted. Hyperinflation compatible with COPD. No evidence for infiltrate. No evidence for atelectasis. Heart size is stable. Mediastinal structures are stable and grossly unremarkable. No evidence for hilar prominence. Degenerative changes dorsal spine. IMPRESSION: 1. No evidence for acute pulmonary disease.
[2022-03-17 16:57] LABS: Appearance,Urine Cloudy (Clear); Bilirubin,Urine Negative (Negative); Blood,Urine Trace (Negative); Color,Urine Yellow; Glucose,Urine (UA) Negative (Negative); Ketones,Urine Negative (Negative); Leukocyte Esterase,Urine Negative (Negative); Mucus,Urine Rare /hpf; Nitrite,Urine Negative (Negative); Protein,Urine 1+ (Negative); RBC,Urine 15 /hpf (0-5); Specific Gravity,Urine 1.021 (1.001-1.035); Squamous Epithelial Cell,Urine 2 /hpf (0-4); Urobilinogen,Urine <2.0 mg/dL (<2.0); WBC,Urine 23 /hpf (0-5)
[2022-03-17 17:08] LABS: INR 0.9 (<1.2); Prothrombin Time 10.2 sec (9.0-12.0)
[2022-03-17 17:12] LABS: Partial Thromboplastin Time 20.3 sec (22.0-30.0)
--- NOTE | 2022-03-17 17:47 | CT ---
EXAMINATION TYPE: CT abdomen pelvis w con DATE OF EXAM: 03/17/2022 COMPARISON: 03/03/2022 HISTORY: abd pain CT DLP: 708 mGycm CONTRAST: CT scan of the abdomen and pelvis is performed without Oral Contrast and with IV Contrast, patient in jected with 100 mL of Isovue 300. FINDINGS: LUNG BASES-: No visible nodule. No infiltrate. LIVER/GB: The gallbladder surgically absent. Air within the biliary tree is likely postoperative in n ature. Dilatation of the intrahepatic and extrahepatic biliary tree measuring up to 1.3 cm. This is l ikely postoperative in nature. No space occupying hepatic lesion. PANCREAS: Pancreatic calcifications as well as pancreatic atrophy compatible with chronic pancreatiti s. No distinct pancreatic mass is seen at this time. SPLEEN: No splenic enlargement. No lesion seen. ADRENALS: No nodule. No thickening. KIDNEYS/BLADDER: No hydronephrosis. No nephrolithiasis. No distinct renal mass. Urinary bladder g rossly unremarkable. BOWEL: Moderate fecal stasis is seen throughout the colon large fecal burden within the rectal vault has improved in the interval. Continued distention of the rectal vault. Sigmoid diverticulosis withou t diverticulitis. Nonvisualization of the appendix. No evidence for pneumoperitoneum or abscess. Dila danisha segment of the jejunum is redemonstrated at 4.6 cm maximal dimension. This is noted at the site o f a surgical anastomosis. GENITAL ORGANS: Right ovarian cystic lesion is nonspecific at 2.8 cm. Uterus and left ovary are gross ly unremarkable. LYMPH NODES: No greater than 1cm abdominal or pelvic lymph nodes are appreciated. AORTA: No significant abnormality. OSSEOUS STRUCTURES: Extensive postoperative change of the lumbar spine with pedicular screws in exten sive streak artifact. OTHER: No significant additional abnormality is seen. IMPRESSION: 1. Persistent dilated segment of jejunum within the left hemiabdomen at the site of prior anastomosis . Partial obstruction is difficult to exclude. 2. Chronic pancreatitis. 3. Postoperative pneumobilia. 4. Moderate fecal burden although much improved within the rectal vault.
[2022-03-17] MEDS ORDERED: HYDROmorphone 0.5 MG/0.5 ML SYRINGE IVP STA (18:04)
[2022-03-17] MEDS ORDERED: ACET/COD 300 MG/30 MG STARTER PACK 6 TAB BTL PO STA (18:26)
== END 2022-03-17 18:30 | disposition home or self-care (01) ==
LOC: EC 13:34
DX: R10.9 Unspecified abdominal pain (principal); J44.9 Chronic obstructive pulmonary disease, unspecified; I10 Essential (primary) hypertension; K21.9 Gastro-esophageal reflux disease without esophagitis; Z79.83 Long term (current) use of bisphosphonates; F17.200 Nicotine dependence, unspecified, uncomplicated
CPT/HCPCS: 36415; 93005; 80053; 82150; 83605; 83690; 84484; 85025; 85610; 85730; 81001; 87086; 71045; 74177; 99284; 96375; 96374; 96361; J2270; J1200; J2765; C9113; J1170; Q9967

== ENCOUNTER 2022-05-10 12:48 | Emergency (ER) | payer BC ==
[2022-05-10 12:57] VITALS: RESP 18; TEMP 98
[2022-05-10] MEDS ORDERED: FAMOTIDINE 20 MG/2 ML VIAL IV STA (13:10)
[2022-05-10] MEDS ORDERED: SODIUM CHLORIDE 0.9% 500 ML 500 ML IV STA (13:10)
[2022-05-10] MEDS ORDERED: HYDROmorphone 0.5 MG/0.5 ML SYRINGE IVP STA ×2 (13:10→14:52)
[2022-05-10] MEDS ORDERED: ONDANSETRON 4 MG/2 ML VIAL IVP STA (13:10)
--- NOTE | 2022-05-10 13:28 | ED ---
General Adult HPI - General Chief complaint: Abdominal Pain Stated complaint: ABD PAIN Time Seen by Provider: 05/10/22 12:50 Source: patient, EMS, RN notes reviewed, old records reviewed Mode of arrival: EMS - History of Present Illness Initial comments: 66-year-old female presenting with abdominal pain. Patient has chronic abdominal pain, history of recurrent pancreatitis. Patient states over the past 24 hours she's had pain in her epigastrium similar to previous episodes of pancreatitis. She has had several episodes of vomiting. No fever. No lower abdominal pain. She's had some diarrhea. - Related Data Home Medications Medication Instructions Recorded Confirmed amLODIPine BESYLATE/BENAZEPRIL 1 cap PO DAILY 09/09/20 03/17/22 [Lotrel 5-10 MG] Naproxen [EC-Naprosyn] 500 mg PO BID 02/27/22 03/17/22 Pantoprazole [Protonix] 40 mg PO DAILY 02/27/22 03/17/22 Previous Rx's Medication Instructions Recorded Meloxicam [Mobic] 7.5 mg PO DAILY 30 Days #30 tab 02/15/22 Ondansetron Odt [Zofran Odt] 4 mg PO Q8HR PRN 3 Days #9 tab 03/17/22 Allergies Allergy/AdvReac Type Severity Reaction Status Date / Time No Known Allergies Allergy Verified 03/17/22 17:41 Review of Systems ROS Statement: Those systems with pertinent positive or pertinent negative responses have been documented in the HPI. ROS Other: All systems not noted in ROS Statement are negative. 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/hx fx l2, hx anemia History of Any Multi-Drug Resistant Organisms: None Reported Past Surgical History: Appendectomy, Back Surgery, Cholecystectomy, Hernia Repair, Orthopedic Surgery, Tonsillectomy Additional Past Surgical History / Comment(s): Umbilical hernia repair (10/20/21), Pancreatic stents-since removed, 6 back surgeries with 2 fusions, right fallopian tube due to ectopic , EGD/colonoscopy, right leg alice inserted d/t fracture, BACK SURGERY-REMOVED OLD HARDWARE AND PUT IN NEW HARDWARE 1/26/21, bowel rupture surgery Past Anesthesia/Blood Transfusion Reactions: No Reported Reaction Additional Past Anesthesia/Blood Transfusion Reaction / Comment(s): DIFF IV STARTS. Pt has received blood in past without reaction. Past Psychological History: No Psychological Hx Reported Smoking Status: Current every day smoker Past Alcohol Use History: None Reported Past Drug Use History: None Reported - Past Family History Father Family Medical History: Cancer Mother Family Medical History: Cancer, CVA/TIA Additional Family Medical History / Comment(s): Breast and colon cancer. General Exam General appearance: alert, in no apparent distress Head exam: Present: atraumatic, normocephalic Eye exam: Present: normal appearance, PERRL ENT exam: Present: normal exam Neck exam: Present: normal inspection. Absent: tenderness, meningismus Respiratory exam: Present: normal lung sounds bilaterally. Absent: respiratory distress, wheezes Cardiovascular Exam: Present: regular rate, normal rhythm GI/Abdominal exam: Present: soft, tenderness (Epigastric tenderness). Absent: distended Extremities exam: Present: normal inspection, normal capillary refill. Absent: pedal edema Neurological exam: Present: alert, oriented X3, CN II-XII intact. Absent: motor sensory deficit Psychiatric exam: Present: normal affect, normal mood Skin exam: Present: warm, dry, intact. Absent: cyanosis, diaphoretic Course Vital Signs 05/10/22 12:51 Temperature 98.0 F Pulse Rate 80 Respiratory 18 Rate Blood Pressure 109/64 O2 Sat by Pulse 96 Oximetry Medical Decision Making - Medical Decision Making 66-year-old female with chronic abdominal pain. Patient has mild epigastric tenderness, no rebound or guarding, stable vitals. Normal CBC, normal CMP, negative lipase. Patient feels better on reevaluation. She states that she's been out of her pain pills at home and cannot refill these for about 10 days. She is instructed she should follow-up with her primary care physician regarding this medication issue. Return parameters discussed. - Lab Data Result diagrams: 05/10/22 13:13 05/10/22 13:13 Lab Results 05/10/22 05/10/22 05/10/22 Range/Units 13:13 13:13 13:13 WBC 10.2 (3.8-10.6) k/uL RBC 4.58 (3.80-5.40) m/uL Hgb 11.9 (11.4-16.0) gm/dL Hct 38.9 (34.0-46.0) % MCV 84.9 (80.0-100.0) fL MCH 26.0 (25.0-35.0) pg MCHC 30.6 L (31.0-37.0) g/dL RDW 15.4 (11.5-15.5) % Plt Count 433 (150-450) k/uL MPV 7.2 Neutrophils % 73 % Lymphocytes % 19 % Monocytes % 4 % Eosinophils % 2 % Basophils % 0 % Neutrophils # 7.5 (1.3-7.7) k/uL Lymphocytes # 1.9 (1.0-4.8) k/uL Monocytes # 0.4 (0-1.0) k/uL Eosinophils # 0.2 (0-0.7) k/uL Basophils # 0.0 (0-0.2) k/uL Hypochromasia Slight PT 10.0 (9.0-12.0) sec INR 0.9 (<1.2) APTT 22.6 (22.0-30.0) sec Sodium 139 (137-145) mmol/L Potassium 3.8 (3.5-5.1) mmol/L Chloride 107 (98-107) mmol/L Carbon Dioxide 22 (22-30) mmol/L Anion Gap 10 mmol/L BUN 13 (7-17) mg/dL Creatinine 0.56 (0.52-1.04) mg/dL Est GFR (CKD-EPI)AfAm >90 (>60 ml/min/1.73 sqM) Est GFR (CKD-EPI)NonAf >90 (>60 ml/min/1.73 sqM) Glucose 98 (74-99) mg/dL Plasma Lactic Acid Derek (0.7-2.0) mmol/L Calcium 9.0 (8.4-10.2) mg/dL Total Bilirubin 0.3 (0.2-1.3) mg/dL AST 23 (14-36) U/L ALT 24 (4-34) U/L Alkaline Phosphatase 110 (38-126) U/L Total Protein 6.4 (6.3-8.2) g/dL Albumin 3.5 (3.5-5.0) g/dL Amylase 37 (30-110) U/L Lipase 14 L (23-300) U/L 05/10/22 Range/Units 13:13 WBC (3.8-10.6) k/uL RBC (3.80-5.40) m/uL Hgb (11.4-16.0) gm/dL Hct (34.0-46.0) % MCV (80.0-100.0) fL MCH (25.0-35.0) pg MCHC (31.0-37.0) g/dL RDW (11.5-15.5) % Plt Count (150-450) k/uL MPV Neutrophils % % Lymphocytes % % Monocytes % % Eosinophils % % Basophils % % Neutrophils # (1.3-7.7) k/uL Lymphocytes # (1.0-4.8) k/uL Monocytes # (0-1.0) k/uL Eosinophils # (0-0.7) k/uL Basophils # (0-0.2) k/uL Hypochromasia PT (9.0-12.0) sec INR (<1.2) APTT (22.0-30.0) sec Sodium (137-145) mmol/L Potassium (3.5-5.1) mmol/L Chloride (98-107) mmol/L Carbon Dioxide (22-30) mmol/L Anion Gap mmol/L BUN (7-17) mg/dL Creatinine (0.52-1.04) mg/dL Est GFR (CKD-EPI)AfAm (>60 ml/min/1.73 sqM) Est GFR (CKD-EPI)NonAf (>60 ml/min/1.73 sqM) Glucose (74-99) mg/dL Plasma Lactic Acid Derek 0.8 (0.7-2.0) mmol/L Calcium (8.4-10.2) mg/dL Total Bilirubin (0.2-1.3) mg/dL AST (14-36) U/L ALT (4-34) U/L Alkaline Phosphatase (38-126) U/L Total Protein (6.3-8.2) g/dL Albumin (3.5-5.0) g/dL Amylase (30-110) U/L Lipase (23-300) U/L Disposition Clinical Impression: Abdominal pain Disposition: ADMITTED IP TO THIS HOSP Condition: Stable Instructions (If sedation given, give patient instructions): Abdominal Pain (ED) Is patient prescribed a controlled substance at d/c from ED?: No Referrals: None,Stated [Primary Care Provider] - 1-2 days Isac Calvin MD [STAFF PHYSICIAN] - 1-2 days Time of Disposition: 14:53
[2022-05-10 13:38] LABS: Basophils % (A) 0 %; Eosinophils # (A) 0.2 k/uL (0-0.7); Eosinophils % (A) 2 %; HCT 38.9 % (34.0-46.0); HGB 11.9 gm/dL (11.4-16.0); Hypochromasia Slight; Lymphocytes # (A) 1.9 k/uL (1.0-4.8); Lymphocytes % (A) 19 %; MCHC 30.6 g/dL (31.0-37.0); MCV 84.9 fL (80.0-100.0); Mean Platelet Volume 7.2; Monocytes # (A) 0.4 k/uL (0-1.0); Monocytes % (A) 4 %; Neutrophils # (A) 7.5 k/uL (1.3-7.7); Neutrophils % (A) 73 %; Platelet Count 433 k/uL (150-450); RBC 4.58 m/uL (3.80-5.40); RDW 15.4 % (11.5-15.5); WBC 10.2 k/uL (3.8-10.6)
[2022-05-10 13:49] LABS: INR 0.9 (<1.2); Partial Thromboplastin Time 22.6 sec (22.0-30.0)
[2022-05-10 14:30] LABS: ALT 24 U/L (4-34); AST 23 U/L (14-36); African American GFR (CKD) >90 (>60 ml/min/1.73 sqM); Albumin 3.5 g/dL (3.5-5.0); Alkaline Phosphatase 110 U/L (38-126); Amylase 37 U/L (30-110); Anion Gap 10 mmol/L; Blood Urea Nitrogen 13 mg/dL (7-17); Carbon Dioxide 22 mmol/L (22-30); Chloride 107 mmol/L (98-107); Glucose 98 mg/dL (74-99); Lipase 14 U/L (23-300); Non-African American GFR(CKD) >90 (>60 ml/min/1.73 sqM); Potassium 3.8 mmol/L (3.5-5.1); Sodium 139 mmol/L (137-145); Total Bilirubin 0.3 mg/dL (0.2-1.3); Total Protein 6.4 g/dL (6.3-8.2)
[2022-05-10 15:09] VITALS: BP 117/56; PULSE 76
== END 2022-05-10 15:09 | disposition other institution (70) ==
LOC: EC 12:48
DX: R10.9 Unspecified abdominal pain (principal); J44.9 Chronic obstructive pulmonary disease, unspecified; I10 Essential (primary) hypertension; Z79.83 Long term (current) use of bisphosphonates; K21.9 Gastro-esophageal reflux disease without esophagitis; Z86.73 Personal history of transient ischemic attack (TIA), and cerebral infarction without residual deficits; F17.200 Nicotine dependence, unspecified, uncomplicated
CPT/HCPCS: 36415; 80053; 82150; 83605; 83690; 85025; 85610; 85730; 99284; 96374; 96375; 96361; 96376; J2405; J1170

== ENCOUNTER 2022-05-11 11:08 | Emergency (ER) | payer BC ==
[2022-05-11 11:18] VITALS: RESP 18; TEMP 98.7
--- NOTE | 2022-05-11 12:07 | XR ---
EXAMINATION TYPE: X-RAY KUB DATE OF EXAM: 05/11/2022 9:01 AM CLINICAL HISTORY: Nausea and vomiting and pain. TECHNIQUE: Single upright KUB of image of the abdomen is obtained. COMPARISON: Prior CT abdomen and pelvis March 17, 2022 FINDINGS: Scattered gas is seen in non-distended small and large bowel loops. Extensive surgical adan ge and multilevel vertebroplasty throughout the spine extending into the pelvis is redemonstrated. Lynda ng bases remain clear. Pneumobilia is redemonstrated. Pancreatic calcifications consistent with chron ic pancreatitis again seen. Entire pelvis not included. Surgical clips right midabdomen redemonstrated. IMPRESSION: Overall nonobstructive bowel gas pattern. Similar findings to recent CT as detailed above.
[2022-05-11 12:13] LABS: Basophils # (A) 0.1 k/uL (0-0.2); Basophils % (A) 1 %; Eosinophils # (A) 0.3 k/uL (0-0.7); Eosinophils % (A) 3 %; HGB 14.2 gm/dL (11.4-16.0); Hypochromasia Slight; Lymphocytes # (A) 1.9 k/uL (1.0-4.8); Lymphocytes % (A) 20 %; MCH 25.6 pg (25.0-35.0); MCHC 30.3 g/dL (31.0-37.0); MCV 84.4 fL (80.0-100.0); Mean Platelet Volume 7.7; Monocytes # (A) 0.3 k/uL (0-1.0); Monocytes % (A) 3 %; Neutrophils # (A) 6.6 k/uL (1.3-7.7); Neutrophils % (A) 71 %; Platelet Count 514 k/uL (150-450); RBC 5.56 m/uL (3.80-5.40); RDW 15.3 % (11.5-15.5); WBC 9.3 k/uL (3.8-10.6)
--- NOTE | 2022-05-11 12:16 | ED ---
General Adult HPI - General Chief complaint: Abdominal Pain Stated complaint: Abd pain Time Seen by Provider: 05/11/22 11:15 Source: patient, EMS, RN notes reviewed, old records reviewed Mode of arrival: EMS Limitations: no limitations - History of Present Illness Initial comments: This is a 66-year-old female who presents emergency Department complaining of abdominal pain which is chronic. Patient states in the distant past she had pancreatitis. Patient states she was here yesterday for the same pain she is back again today. Patient states she did vomit at home and one episode of diarrhea. Patient denies any fever chills per patient denies chest pain difficulty breathing shortness of breath. Patient states she has not followed up with Dr. Omer though she has seen Dr. Dang the past. - Related Data Home Medications Medication Instructions Recorded Confirmed amLODIPine BESYLATE/BENAZEPRIL 1 cap PO DAILY 09/09/20 05/11/22 [Lotrel 5-10 MG] Loperamide [Imodium] 2 mg PO BID PRN 05/11/22 05/11/22 Omeprazole [PriLOSEC] 40 mg PO DAILY 05/11/22 05/11/22 rOPINIRole HCL [Requip] 0.5 mg PO HS 05/11/22 05/11/22 Allergies Allergy/AdvReac Type Severity Reaction Status Date / Time No Known Allergies Allergy Verified 05/11/22 12:51 Review of Systems ROS Statement: Those systems with pertinent positive or pertinent negative responses have been documented in the HPI. ROS Other: All systems not noted in ROS Statement are negative. 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/hx fx l2, hx anemia History of Any Multi-Drug Resistant Organisms: None Reported Past Surgical History: Appendectomy, Back Surgery, Cholecystectomy, Hernia Repair, Orthopedic Surgery, Tonsillectomy Additional Past Surgical History / Comment(s): Umbilical hernia repair (10/20/21), Pancreatic stents-since removed, 6 back surgeries with 2 fusions, right fallopian tube due to ectopic , EGD/colonoscopy, right leg alice inserted d/t fracture, BACK SURGERY-REMOVED OLD HARDWARE AND PUT IN NEW HARDWARE 09/28/20, bowel rupture surgery Past Anesthesia/Blood Transfusion Reactions: No Reported Reaction Additional Past Anesthesia/Blood Transfusion Reaction / Comment(s): DIFF IV STARTS. Pt has received blood in past without reaction. Past Psychological History: No Psychological Hx Reported Smoking Status: Current every day smoker Past Alcohol Use History: None Reported Past Drug Use History: None Reported - Past Family History Father Family Medical History: Cancer Mother Family Medical History: Cancer, CVA/TIA Additional Family Medical History / Comment(s): Breast and colon cancer. General Exam - General Exam Comments Initial Comments: GENERAL: Patient is well-developed and well-nourished. Patient is nontoxic and well- hydrated and is in mild distress. ENT: Neck is soft and supple. No significant lymphadenopathy is noted. Oropharynx is clear. Moist mucous membranes. Neck has full range of motion without rk citing any pain. EYES: The sclera were anicteric and conjunctiva were pink and moist. Extraocular movements were intact and pupils were equal round and reactive to light. Eyelids were unremarkable. PULMONARY: Unlabored respirations. Good breath sounds bilaterally. No audible rales rhonchi or wheezing was noted. CARDIOVASCULAR: There is a regular rate and rhythm without any murmurs gallops or rubs. ABDOMEN: Slight epigastric abdominal pain SKIN: Skin is clear with no lesions or rashes and otherwise unremarkable. NEUROLOGIC: Patient is alert and oriented x3. Cranial nerves II through XII are grossly intact. Motor and sensory are also intact. Normal speech, volume and content. Symmetrical smile. MUSCULOSKELETAL: Normal extremities with adequate strength and full range of motion. LYMPHATICS: No significant lymphadenopathy is noted PSYCHIATRIC: Normal psychiatric evaluation. Limitations: no limitations Course Vital Signs 05/11/22 11:12 Temperature 98.7 F Pulse Rate 80 Respiratory 18 Rate Blood Pressure 102/62 O2 Sat by Pulse 100 Oximetry Medical Decision Making - Medical Decision Making EKG shows sinus rhythm at 77 bpm FL interval 160 QRS is 60 QT interval 42 QTC is 434. Patient's EKG shows no ST segment elevation or depression. KUB shows no acute normalities. I went back and reevaluated the patient and she was doing much better. Patient is aware she has to follow up with Dr. Clark - Lab Data Result diagrams: 05/11/22 11:35 05/11/22 11:35 Lab Results 0905/11/22 05/11/22 Range/Units 11:35 11:35 11:35 WBC 9.3 (3.8-10.6) k/uL RBC 5.56 H (3.80-5.40) m/uL Hgb 14.2 (11.4-16.0) gm/dL Hct 47.0 H (34.0-46.0) % MCV 84.4 (80.0-100.0) fL MCH 25.6 (25.0-35.0) pg MCHC 30.3 L (31.0-37.0) g/dL RDW 15.3 (11.5-15.5) % Plt Count 514 H (150-450) k/uL MPV 7.7 Neutrophils % 71 % Lymphocytes % 20 % Monocytes % 3 % Eosinophils % 3 % Basophils % 1 % Neutrophils # 6.6 (1.3-7.7) k/uL Lymphocytes # 1.9 (1.0-4.8) k/uL Monocytes # 0.3 (0-1.0) k/uL Eosinophils # 0.3 (0-0.7) k/uL Basophils # 0.1 (0-0.2) k/uL Hypochromasia Slight Sodium 140 (137-145) mmol/L Potassium 4.4 (3.5-5.1) mmol/L Chloride 105 (98-107) mmol/L Carbon Dioxide 19 L (22-30) mmol/L Anion Gap 16 mmol/L BUN 12 (7-17) mg/dL Creatinine 0.64 (0.52-1.04) mg/dL Est GFR (CKD-EPI)AfAm >90 (>60 ml/min/1.73 sqM) Est GFR (CKD-EPI)NonAf >90 (>60 ml/min/1.73 sqM) Glucose 107 H (74-99) mg/dL Plasma Lactic Acid Derek 1.3 (0.7-2.0) mmol/L Calcium 9.7 (8.4-10.2) mg/dL Total Bilirubin 0.3 (0.2-1.3) mg/dL AST 28 (14-36) U/L ALT 27 (4-34) U/L Alkaline Phosphatase 148 H (38-126) U/L Total Protein 7.9 (6.3-8.2) g/dL Albumin 4.4 (3.5-5.0) g/dL Amylase 42 (30-110) U/L Lipase 31 (23-300) U/L Disposition Clinical Impression: Chronic abdominal pain Disposition: HOME SELF-CARE Condition: Good Instructions (If sedation given, give patient instructions): Abdominal Pain (ED) Is patient prescribed a controlled substance at d/c from ED?: No Referrals: Isac Calvin MD [Primary Care Provider] - 1-2 days Time of Disposition: 12:58
[2022-05-11 12:23] LABS: ALT 27 U/L (4-34); AST 28 U/L (14-36); African American GFR (CKD) >90 (>60 ml/min/1.73 sqM); Albumin 4.4 g/dL (3.5-5.0); Alkaline Phosphatase 148 U/L (38-126); Amylase 42 U/L (30-110); Anion Gap 16 mmol/L; Blood Urea Nitrogen 12 mg/dL (7-17); Calcium 9.7 mg/dL (8.4-10.2); Carbon Dioxide 19 mmol/L (22-30); Chloride 105 mmol/L (98-107); Glucose 107 mg/dL (74-99); Lipase 31 U/L (23-300); Non-African American GFR(CKD) >90 (>60 ml/min/1.73 sqM); Potassium 4.4 mmol/L (3.5-5.1); Sodium 140 mmol/L (137-145); Total Bilirubin 0.3 mg/dL (0.2-1.3); Total Protein 7.9 g/dL (6.3-8.2)
[2022-05-11] MEDS ORDERED: ACET/COD 300 MG/30 MG STARTER PACK 6 TAB BTL PO STA (13:17)
[2022-05-11 13:27] VITALS: BP 107/81; PULSE 82
== END 2022-05-11 13:31 | disposition home or self-care (01) ==
LOC: EC 11:08
DX: G89.29 Other chronic pain (principal); R10.9 Unspecified abdominal pain; J44.9 Chronic obstructive pulmonary disease, unspecified; Z86.73 Personal history of transient ischemic attack (TIA), and cerebral infarction without residual deficits; Z79.83 Long term (current) use of bisphosphonates; K21.9 Gastro-esophageal reflux disease without esophagitis; I10 Essential (primary) hypertension; F17.200 Nicotine dependence, unspecified, uncomplicated
CPT/HCPCS: 36415; 93005; 80053; 82150; 83605; 83690; 85025; 74018; 99284; 96374; J1790

== ENCOUNTER 2022-05-16 06:47 | Emergency (ER) | payer BC ==
[2022-05-16 07:02] VITALS: BP 129/77; PULSE 92; RESP 20; TEMP 97.5
[2022-05-16] MEDS ORDERED: ONDANSETRON 4 MG/2 ML VIAL IVP STA (11:14)
[2022-05-16] MEDS ORDERED: SODIUM CHLORIDE 0.9% 2,000 ML IV STA (11:14)
[2022-05-16 12:17] LABS: Basophils % (A) 1 %; Eosinophils # (A) 0.1 k/uL (0-0.7); Eosinophils % (A) 1 %; HCT 44.3 % (34.0-46.0); HGB 13.9 gm/dL (11.4-16.0); Hypochromasia Slight; Lymphocytes % (A) 24 %; MCH 26.3 pg (25.0-35.0); MCHC 31.3 g/dL (31.0-37.0); MCV 83.9 fL (80.0-100.0); Mean Platelet Volume 8.1; Monocytes # (A) 0.3 k/uL (0-1.0); Monocytes % (A) 4 %; Neutrophils # (A) 5.5 k/uL (1.3-7.7); Neutrophils % (A) 69 %; Platelet Count 523 k/uL (150-450); RBC 5.28 m/uL (3.80-5.40); RDW 15.8 % (11.5-15.5); WBC 8.1 k/uL (3.8-10.6)
[2022-05-16 12:31] LABS: ALT 20 U/L (4-34); AST 24 U/L (14-36); African American GFR (CKD) >90 (>60 ml/min/1.73 sqM); Albumin 4.2 g/dL (3.5-5.0); Alkaline Phosphatase 143 U/L (38-126); Anion Gap 11 mmol/L; Blood Urea Nitrogen 15 mg/dL (7-17); Calcium 9.1 mg/dL (8.4-10.2); Carbon Dioxide 23 mmol/L (22-30); Chloride 104 mmol/L (98-107); Glucose 134 mg/dL (74-99); Lipase 46 U/L (23-300); Non-African American GFR(CKD) >90 (>60 ml/min/1.73 sqM); Potassium 4.3 mmol/L (3.5-5.1); Sodium 138 mmol/L (137-145); Total Bilirubin 0.4 mg/dL (0.2-1.3); Total Protein 7.3 g/dL (6.3-8.2)
--- NOTE | 2022-05-16 12:45 | ED ---
Abdominal Pain HPI - General Chief Complaint: Abdominal Pain Stated Complaint: dehydration Time Seen by Provider: 05/16/22 11:14 Source: patient, RN notes reviewed Mode of arrival: ambulatory Limitations: no limitations - History of Present Illness Initial Comments: 66-year-old female presents emergency Department with chief complaint of abdominal pain. Patient states is chronic in nature. Patient's has had multiple ER visits of recent. Patient with nausea vomiting she does have a pancreatitis. Patient denies fevers chills and diarrhea constipation no chest pain or shortness breath no other associated complaints. - Related Data Home Medications Medication Instructions Recorded Confirmed amLODIPine BESYLATE/BENAZEPRIL 1 cap PO DAILY 09/09/20 05/16/22 [Lotrel 5-10 MG] Loperamide [Imodium] 2 mg PO BID PRN 05/11/22 05/16/22 Omeprazole [PriLOSEC] 40 mg PO DAILY 05/11/22 05/16/22 rOPINIRole HCL [Requip] 0.5 mg PO HS 05/11/22 05/16/22 Allergies Allergy/AdvReac Type Severity Reaction Status Date / Time No Known Allergies Allergy Verified 05/16/22 12:16 Review of Systems ROS Statement: Those systems with pertinent positive or pertinent negative responses have been documented in the HPI. ROS Other: All systems not noted in ROS Statement are negative. 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/hx fx l2, hx anemia History of Any Multi-Drug Resistant Organisms: None Reported Past Surgical History: Appendectomy, Back Surgery, Cholecystectomy, Hernia Repair, Orthopedic Surgery, Tonsillectomy Additional Past Surgical History / Comment(s): Umbilical hernia repair (10/20/21), Pancreatic stents-since removed, 6 back surgeries with 2 fusions, right fallopian tube due to ectopic , EGD/colonoscopy, right leg alice inserted d/t fracture, BACK SURGERY-REMOVED OLD HARDWARE AND PUT IN NEW HARDWARE 09/28/20, bowel rupture surgery Past Anesthesia/Blood Transfusion Reactions: No Reported Reaction Additional Past Anesthesia/Blood Transfusion Reaction / Comment(s): DIFF IV ST ARTS. Pt has received blood in past without reaction. Past Psychological History: No Psychological Hx Reported Smoking Status: Current every day smoker Past Alcohol Use History: None Reported Past Drug Use History: None Reported - Past Family History Father Family Medical History: Cancer Mother Family Medical History: Cancer, CVA/TIA Additional Family Medical History / Comment(s): Breast and colon cancer. General Exam Limitations: no limitations General appearance: alert, in no apparent distress Head exam: Present: atraumatic, normocephalic, normal inspection Eye exam: Present: normal appearance, PERRL, EOMI. Absent: scleral icterus, conjunctival injection, periorbital swelling ENT exam: Present: normal exam, normal oropharynx, mucous membranes moist Neck exam: Present: normal inspection, full ROM. Absent: tenderness, meningismus, lymphadenopathy Respiratory exam: Present: normal lung sounds bilaterally. Absent: respiratory distress, wheezes, rales, rhonchi, stridor Cardiovascular Exam: Present: regular rate, normal rhythm, normal heart sounds. Absent: systolic murmur, diastolic murmur, rubs, gallop, clicks GI/Abdominal exam: Present: soft, tenderness, normal bowel sounds. Absent: distended, guarding, rebound, rigid Course Vital Signs 05/16/22 06:59 Temperature 97.5 F L Pulse Rate 92 Respiratory 20 Rate Blood Pressure 129/77 O2 Sat by Pulse 100 Oximetry Medical Decision Making - Medical Decision Making Labs reveal any acute findings. Patient was hydrated, given antiemetics. I did review her medication list which she is on Suboxone. Patient advised that she is to follow-up with her PCP and return for any worsening change in symptoms. - Lab Data Result diagrams: 05/16/22 11:53 05/16/22 11:53 Lab Results 05/16/22 05/16/22 Range/Units 11:53 11:53 WBC 8.1 (3.8-10.6) k/uL RBC 5.28 (3.80-5.40) m/uL Hgb 13.9 (11.4-16.0) gm/dL Hct 44.3 (34.0-46.0) % MCV 83.9 (80.0-100.0) fL MCH 26.3 (25.0-35.0) pg MCHC 31.3 (31.0-37.0) g/dL RDW 15.8 H (11.5-15.5) % Plt Count 523 H (150-450) k/uL MPV 8.1 Neutrophils % 69 % Lymphocytes % 24 % Monocytes % 4 % Eosinophils % 1 % Basophils % 1 % Neutrophils # 5.5 (1.3-7.7) k/uL Lymphocytes # 2.0 (1.0-4.8) k/uL Monocytes # 0.3 (0-1.0) k/uL Eosinophils # 0.1 (0-0.7) k/uL Basophils # 0.0 (0-0.2) k/uL Hypochromasia Slight Sodium 138 (137-145) mmol/L Potassium 4.3 (3.5-5.1) mmol/L Chloride 104 (98-107) mmol/L Carbon Dioxide 23 (22-30) mmol/L Anion Gap 11 mmol/L BUN 15 (7-17) mg/dL Creatinine 0.54 (0.52-1.04) mg/dL Est GFR (CKD-EPI)AfAm >90 (>60 ml/min/1.73 sqM) Est GFR (CKD-EPI)NonAf >90 (>60 ml/min/1.73 sqM) Glucose 134 H (74-99) mg/dL Calcium 9.1 (8.4-10.2) mg/dL Total Bilirubin 0.4 (0.2-1.3) mg/dL AST 24 (14-36) U/L ALT 20 (4-34) U/L Alkaline Phosphatase 143 H (38-126) U/L Total Protein 7.3 (6.3-8.2) g/dL Albumin 4.2 (3.5-5.0) g/dL Lipase 46 (23-300) U/L Disposition Clinical Impression: Abdominal pain Disposition: HOME SELF-CARE Condition: Stable Instructions (If sedation given, give patient instructions): Abdominal Pain (ED) Additional Instructions: Please return to the Emergency Department if symptoms worsen or any other concerns. Is patient prescribed a controlled substance at d/c from ED?: No Referrals: None,Stated [Primary Care Provider] - 1-2 days Time of Disposition: 12:44
== END 2022-05-16 13:10 | disposition home or self-care (01) ==
LOC: EC 06:47
DX: R10.9 Unspecified abdominal pain (principal); I10 Essential (primary) hypertension; J44.9 Chronic obstructive pulmonary disease, unspecified; K21.9 Gastro-esophageal reflux disease without esophagitis; F17.210 Nicotine dependence, cigarettes, uncomplicated; Z79.899 Other long term (current) drug therapy; Z90.89 Acquired absence of other organs
CPT/HCPCS: 36415; 80053; 83690; 85025; 99284; 96374; 96361; J2405

== ENCOUNTER 2022-06-19 11:58 | Emergency (ER) | payer BC ==
[2022-06-19 12:34] VITALS: TEMP 97.9
[2022-06-19 12:56] LABS: Appearance,Urine Cloudy (Clear); Bacteria,Urine Many /hpf; Bilirubin,Urine Negative (Negative); Blood,Urine Large (Negative); Color,Urine Light Red; Glucose,Urine (UA) Negative (Negative); Ketones,Urine Negative (Negative); Leukocyte Esterase,Urine Trace (Negative); Mucus,Urine Rare /hpf; Nitrite,Urine Negative (Negative); PH, Urine 6.5 (5.0-8.0); Protein,Urine 2+ (Negative); RBC,Urine 6 /hpf (0-5); Specific Gravity,Urine 1.009 (1.001-1.035); Squamous Epithelial Cell,Urine <1 /hpf (0-4); Urobilinogen,Urine <2.0 mg/dL (<2.0); WBC,Urine 8 /hpf (0-5)
[2022-06-19] MEDS ORDERED: MORPHINE SULFATE 4 MG/ML SYRINGE IVP STA (15:24)
[2022-06-19] MEDS ORDERED: SODIUM CHLORIDE 0.9% 1,000 ML IV ONE (15:24)
[2022-06-19] MEDS ORDERED: ONDANSETRON 4 MG/2 ML VIAL IVP STA (15:24)
[2022-06-19 16:07] LABS: Anisocytosis Slight; Basophils % (A) 1 %; Eosinophils # (A) 0.2 k/uL (0-0.7); Eosinophils % (A) 3 %; HCT 34.9 % (34.0-46.0); Hypochromasia Moderate; Lymphocytes % (A) 31 %; MCH 26.6 pg (25.0-35.0); MCHC 31.5 g/dL (31.0-37.0); MCV 84.6 fL (80.0-100.0); Mean Platelet Volume 7.9; Monocytes # (A) 0.4 k/uL (0-1.0); Monocytes % (A) 5 %; Neutrophils # (A) 3.7 k/uL (1.3-7.7); Neutrophils % (A) 58 %; Platelet Count 452 k/uL (150-450); RBC 4.12 m/uL (3.80-5.40); RDW 16.6 % (11.5-15.5); WBC 6.4 k/uL (3.8-10.6)
--- NOTE | 2022-06-19 16:08 | XR ---
EXAMINATION TYPE: XR KUB DATE OF EXAM: 06/19/2022 3:59 PM CLINICAL HISTORY: Abdominal pain. TECHNIQUE: Single supine KUB image of the abdomen is obtained. COMPARISON: Abdominal x-ray May 11, 2022. CT abdomen and pelvis March 17, 2022. FINDINGS: Scattered gas is seen in non-distended small bowel loops. Gas and fecal material is seen in non-distended colon. Long segment surgical change to the spine extending into the pelvis is redemons trated. Multilevel vertebroplasty along with artificial disc material is redemonstrated. Lung bases r emain clear. There is pneumobilia redemonstrated. Cholecystectomy clips are redemonstrated. Calcifica tions superior to this of uncertain etiology is unchanged from prior x-ray. There is pelvic phlebolit h redemonstrated. Surgical change to the proximal femur is partially imaged. IMPRESSION: Overall nonobstructive bowel gas pattern.
[2022-06-19 16:15] VITALS: RESP 18
[2022-06-19 16:15] LABS: ALT 30 U/L (4-34); AST 30 U/L (14-36); African American GFR (CKD) >90 (>60 ml/min/1.73 sqM); Albumin 4.2 g/dL (3.5-5.0); Alkaline Phosphatase 96 U/L (38-126); Amylase 51 U/L (30-110); Anion Gap 10 mmol/L; Blood Urea Nitrogen 23 mg/dL (7-17); Carbon Dioxide 22 mmol/L (22-30); Chloride 107 mmol/L (98-107); Glucose 150 mg/dL (74-99); Lipase 71 U/L (23-300); Non-African American GFR(CKD) 83 (>60 ml/min/1.73 sqM); Potassium 4.1 mmol/L (3.5-5.1); Sodium 139 mmol/L (137-145); Total Bilirubin 0.2 mg/dL (0.2-1.3)
--- NOTE | 2022-06-19 17:05 | ED ---
Abdominal Pain HPI - General Chief Complaint: Abdominal Pain Stated Complaint: Abd Pain Time Seen by Provider: 06/19/22 15:11 Source: patient Mode of arrival: ambulatory Limitations: no limitations - History of Present Illness Initial Comments: Patient is a 66-year-old female with history of pancreatitis presenting with chief complaint of abdominal pain. Pain has been present for the last 4 days, and is located in the epigastric region, accompanied by nausea. She states that the pain shoots to the back. Patient states this feels similar to previous pancreatitis flareups. Patient has history of cholecystectomy. She denies any chest pain, difficulty breathing, fever, chills, hematemesis, hematochezia, melena, palpitations, weakness, dizziness. - Related Data Home Medications Medication Instructions Recorded Confirmed amLODIPine BESYLATE/BENAZEPRIL 1 cap PO DAILY 09/09/20 05/16/22 [Lotrel 5-10 MG] Loperamide [Imodium] 2 mg PO BID PRN 05/11/22 05/16/22 Omeprazole [PriLOSEC] 40 mg PO DAILY 05/11/22 05/16/22 rOPINIRole HCL [Requip] 0.5 mg PO HS 05/11/22 05/16/22 Allergies Allergy/AdvReac Type Severity Reaction Status Date / Time No Known Allergies Allergy Verified 05/16/22 12:16 Review of Systems ROS Statement: Those systems with pertinent positive or pertinent negative responses have been documented in the HPI. ROS Other: All systems not noted in ROS Statement are negative. 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/hx fx l2, hx anemia History of Any Multi-Drug Resistant Organisms: None Reported Past Surgical History: Appendectomy, Back Surgery, Cholecystectomy, Hernia Repair, Orthopedic Surgery, Tonsillectomy Additional Past Surgical History / Comment(s): Umbilical hernia repair (10/20/21), Pancreatic stents-since removed, 6 back surgeries with 2 fusions, right fallopian tube due to ectopic , EGD/colonoscopy, right leg laice inserted d/t fracture, BACK SURGERY-REMOVED OLD HARDWARE AND PUT IN NEW HARDWARE 09/28/20, bowel rupture surgery Past Anesthesia/Blood Transfusion Reactions: No Reported Reaction Additional Past Anesthesia/Blood Transfusion Reaction / Comment(s): DIFF IV STARTS. Pt has received blood in past without reaction. Past Psychological History: No Psychological Hx Reported Smoking Status: Current every day smoker Past Alcohol Use History: None Reported Past Drug Use History: None Reported - Past Family History Father Family Medical History: Cancer Mother Family Medical History: Cancer, CVA/TIA Additional Family Medical History / Comment(s): Breast and colon cancer. General Exam Limitations: no limitations General appearance: alert, in no apparent distress Head exam: Present: atraumatic, normocephalic, normal inspection Eye exam: Present: normal appearance, PERRL, EOMI. Absent: scleral icterus, conjunctival injection, periorbital swelling Neck exam: Present: normal inspection Respiratory exam: Present: normal lung sounds bilaterally. Absent: respiratory distress, wheezes, rales, rhonchi, stridor Cardiovascular Exam: Present: regular rate, normal rhythm, normal heart sounds. Absent: systolic murmur, diastolic murmur, rubs, gallop, clicks GI/Abdominal exam: Present: soft. Absent: distended, tenderness, guarding, rebound, rigid Neurological exam: Present: alert, oriented X3, CN II-XII intact Psychiatric exam: Present: normal affect, normal mood Skin exam: Present: warm, dry, intact, normal color. Absent: rash Course Vital Signs 06/19/22 06/19/22 12:31 16:14 Temperature 97.9 F Pulse Rate 85 78 Respiratory 20 18 Rate Blood Pressure 153/89 151/88 O2 Sat by Pulse 98 99 Oximetry Medical Decision Making - Medical Decision Making Patient is a 66-year-old female presenting with chief complaint of epigastric pain, nausea, vomiting. At been ongoing for the last 4 days. Physical exami nation is unremarkable. WBC 6.4 hemoglobin 11.0. Patient appears mildly dehydrated BUN of 23, she is receiving IV fluids. Electrolytes, lactic acid, LFTs, troponin, amylase/lipase are WNL. Urine shows 6 RBCs and 8 wbc's, will be sent for culture. KUB x-ray shows overall nonobstructive bowel gas pattern. On reassessment patient reports improvement in pain. Patient states she has an appointment set up with GI Dr. Clark later this month. Follow-up with PCP. Report back to ER with any new or worsening symptoms. Discussed return parameters and answered all questions. Patient conveyed verbal understanding and agreed to the plan. I discussed this case in detail with my attending Dr. Pereira. - Lab Data Result diagrams: 06/19/22 15:45 06/19/22 15:45 Lab Results 06/19/22 06/19/22 06/19/22 Range/Units 12:44 15:45 15:45 WBC 6.4 (3.8-10.6) k/uL RBC 4.12 (3.80-5.40) m/uL Hgb 11.0 L (11.4-16.0) gm/dL Hct 34.9 (34.0-46.0) % MCV 84.6 (80.0-100.0) fL MCH 26.6 (25.0-35.0) pg MCHC 31.5 (31.0-37.0) g/dL RDW 16.6 H (11.5-15.5) % Plt Count 452 H (150-450) k/uL MPV 7.9 Neutrophils % 58 % Lymphocytes % 31 % Monocytes % 5 % Eosinophils % 3 % Basophils % 1 % Neutrophils # 3.7 (1.3-7.7) k/uL Lymphocytes # 2.0 (1.0-4.8) k/uL Monocytes # 0.4 (0-1.0) k/uL Eosinophils # 0.2 (0-0.7) k/uL Basophils # 0.0 (0-0.2) k/uL Hypochromasia Moderate Anisocytosis Slight Sodium 139 (137-145) mmol/L Potassium 4.1 (3.5-5.1) mmol/L Chloride 107 (98-107) mmol/L Carbon Dioxide 22 (22-30) mmol/L Anion Gap 10 mmol/L BUN 23 H (7-17) mg/dL Creatinine 0.75 (0.52-1.04) mg/dL Est GFR (CKD-EPI)AfAm >90 (>60 ml/min/1.73 sqM) Est GFR (CKD-EPI)NonAf 83 (>60 ml/min/1.73 sqM) Glucose 150 H (74-99) mg/dL Plasma Lactic Acid Derek (0.7-2.0) mmol/L Calcium 9.0 (8.4-10.2) mg/dL Total Bilirubin 0.2 (0.2-1.3) mg/dL AST 30 (14-36) U/L ALT 30 (4-34) U/L Alkaline Phosphatase 96 (38-126) U/L Troponin I (0.000-0.034) ng/mL Total Protein 7.0 (6.3-8.2) g/dL Albumin 4.2 (3.5-5.0) g/dL Amylase 51 (30-110) U/L Lipase 71 (23-300) U/L Urine Color Light Red Urine Appearance Cloudy H (Clear) Urine pH 6.5 (5.0-8.0) Ur Specific [place] 1.009 (1.001-1.035) Urine Protein 2+ H (Negative) Urine Glucose (UA) Negative (Negative) Urine Ketones Negative (Negative) Urine Blood Large H (Negative) Urine Nitrite Negative (Negative) Urine Bilirubin Negative (Negative) Urine Urobilinogen <2.0 (<2.0) mg/dL Ur Leukocyte Esterase Trace H (Negative) Urine RBC 6 H (0-5) /hpf Urine WBC 8 H (0-5) /hpf Ur Squamous Epith Cells <1 (0-4) /hpf Urine Bacteria Many H (None) /hpf Urine Mucus Rare H (None) /hpf 06/19/22 06/19/22 Range/Units 15:45 16:35 WBC (3.8-10.6) k/uL RBC (3.80-5.40) m/uL Hgb (11.4-16.0) gm/dL Hct (34.0-46.0) % MCV (80.0-100.0) fL MCH (25.0-35.0) pg MCHC (31.0-37.0) g/dL RDW (11.5-15.5) % Plt Count (150-450) k/uL MPV Neutrophils % % Lymphocytes % % Monocytes % % Eosinophils % % Basophils % % Neutrophils # (1.3-7.7) k/uL Lymphocytes # (1.0-4.8) k/uL Monocytes # (0-1.0) k/uL Eosinophils # (0-0.7) k/uL Basophils # (0-0.2) k/uL Hypochromasia Anisocytosis Sodium (137-145) mmol/L Potassium (3.5-5.1) mmol/L Chloride (98-107) mmol/L Carbon Dioxide (22-30) mmol/L Anion Gap mmol/L BUN (7-17) mg/dL Creatinine (0.52-1.04) mg/dL Est GFR (CKD-EPI)AfAm (>60 ml/min/1.73 sqM) Est GFR (CKD-EPI)NonAf (>60 ml/min/1.73 sqM) Glucose (74-99) mg/dL Plasma Lactic Acid Derek 0.9 (0.7-2.0) mmol/L Calcium (8.4-10.2) mg/dL Total Bilirubin (0.2-1.3) mg/dL AST (14-36) U/L ALT (4-34) U/L Alkaline Phosphatase (38-126) U/L Troponin I <0.012 (0.000-0.034) ng/mL Total Protein (6.3-8.2) g/dL Albumin (3.5-5.0) g/dL Amylase (30-110) U/L Lipase (23-300) U/L Urine Color Urine Appearance (Clear) Urine pH (5.0-8.0) Ur Specific [place] (1.001-1.035) Urine Protein (Negative) Urine Glucose (UA) (Negative) Urine Ketones (Negative) Urine Blood (Negative) Urine Nitrite (Negative) Urine Bilirubin (Negative) Urine Urobilinogen (<2.0) mg/dL Ur Leukocyte Esterase (Negative) Urine RBC (0-5) /hpf Urine WBC (0-5) /hpf Ur Squamous Epith Cells (0-4) /hpf Urine Bacteria (None) /hpf Urine Mucus (None) /hpf - EKG Data EKG Comments: Sinus rhythm rate of 72. HI interval 154. QRS duration 76. QT/QTC 449/474. Prolonged QT interval. No T-wave inversion or ST deviation. Disposition Clinical Impression: Chronic abdominal pain Disposition: HOME SELF-CARE Condition: Fair Instructions (If sedation given, give patient instructions): Acute Nausea and Vomiting (ED), Abdominal Pain (ED) Additional Instructions: Follow-up with PCP. Follow up with GI at scheduled appointment. Report back to ER with any new or worsening symptoms. Is patient prescribed a controlled substance at d/c from ED?: No Referrals: Zoya Clark MD [STAFF PHYSICIAN] - 1-2 days None,Stated [Primary Care Provider] - 1-2 days Time of Disposition: 17:29
[2022-06-19 18:38] VITALS: BP 150/84; PULSE 80
== END 2022-06-19 18:05 | disposition home or self-care (01) ==
LOC: EC 11:58
DX: R10.13 Epigastric pain (principal); J44.9 Chronic obstructive pulmonary disease, unspecified; Z86.73 Personal history of transient ischemic attack (TIA), and cerebral infarction without residual deficits; K21.9 Gastro-esophageal reflux disease without esophagitis; I10 Essential (primary) hypertension; M19.90 Unspecified osteoarthritis, unspecified site; F17.200 Nicotine dependence, unspecified, uncomplicated; Z79.899 Other long term (current) drug therapy
CPT/HCPCS: 36415; 93005; 80053; 82150; 83605; 83690; 84484; 85025; 81001; 74018; 99284; 96374; 96375; 96361; J2270; J2405

== ENCOUNTER 2022-07-08 12:30 | Emergency (ER) | payer BC ==
[2022-07-08 12:56] VITALS: BP 150/76; PULSE 82; RESP 16; TEMP 99.7
[2022-07-08] MEDS ORDERED: HYDROcodone/APAP 5-325MG 1 EACH TAB PO STA (13:20)
--- NOTE | 2022-07-08 13:29 | ED ---
Extremity Problem HPI - General Chief complaint: Extremity Problem,Nontraumatic Stated complaint: Leg & ankle pain Time Seen by Provider: 07/08/22 13:04 Source: patient Mode of arrival: wheelchair Limitations: no limitations - History of Present Illness Initial comments: This patient is a 66-year-old woman who presents to have evaluation of left lower leg and left foot pain. She states that she had previous pain like this when she had a fracture of her left femur. She denies having a definite trauma to the leg. The pains began about 2 weeks ago and are present when she attempts to bear weight or walk on her leg. The pain is better when she rests her leg. She denies weakness or numbness of the leg MD Complaint: extremity pain Onset/Timin -: week(s) Location: left History of Same: Yes Radiation: none Quality: sharp Consistency: constant Improves with: nothing Worsens with: weight bearing, walking Associated Symptoms: denies other symptoms - Related Data Home Medications Medication Instructions Recorded Confirmed amLODIPine BESYLATE/BENAZEPRIL 1 cap PO DAILY 09/09/20 05/16/22 [Lotrel 5-10 MG] Loperamide [Imodium] 2 mg PO BID PRN 05/11/22 05/16/22 Omeprazole [PriLOSEC] 40 mg PO DAILY 05/11/22 05/16/22 rOPINIRole HCL [Requip] 0.5 mg PO HS 05/11/22 05/16/22 Allergies Allergy/AdvReac Type Severity Reaction Status Date / Time No Known Allergies Allergy Verified 07/08/22 12:56 Review of Systems ROS Statement: Those systems with pertinent positive or pertinent negative responses have been documented in the HPI. ROS Other: All systems not noted in ROS Statement are negative. Constitutional: Denies: fever, chills, weakness Respiratory: Denies: cough, dyspnea Cardiovascular: Denies: chest pain, palpitations, edema Musculoskeletal: Reports: as per HPI Skin: Denies: rash, lesions Neurological: Denies: weakness, numbness, paresthesias 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/hx fx l2, hx anemia History of Any Multi-Drug Resistant Organisms: None Reported Past Surgical History: Appendectomy, Back Surgery, Cholecystectomy, Hernia Repair, Orthopedic Surgery, Tonsillectomy Additional Past Surgical History / Comment(s): Umbilical hernia repair (10/20/21), Pancreatic stents-since removed, 6 back surgeries with 2 fusions, right fallopian tube due to ectopic , EGD/colonoscopy, right leg alice inserted d/t fracture, BACK SURGERY-REMOVED OLD HARDWARE AND PUT IN NEW HARDWARE 09/28/20, bowel rupture surgery Past Anesthesia/Blood Transfusion Reactions: No Reported Reaction Additional Past Anesthesia/Blood Transfusion Reaction / Comment(s): DIFF IV STARTS. Pt has received blood in past without reaction. Past Psychological History: No Psychological Hx Reported Smoking Status: Current every day smoker Past Alcohol Use History: None Reported Past Drug Use History: None Reported - Past Family History Father Family Medical History: Cancer Mother Family Medical History: Cancer, CVA/TIA Additional Family Medical History / Comment(s): Breast and colon cancer. General Exam Limitations: no limitations General appearance: alert, in no apparent distress Head exam: Present: atraumatic, normocephalic Cardiovascular Exam: Present: other (The dorsalis pedis pulses are symmetric and normal in strength. There is normal capillary refill.) Extremities exam: Present: normal inspection, full ROM, tenderness, normal capillary refill. Absent: pedal edema, calf tenderness Neurological exam: Present: alert. Absent: motor sensory deficit Skin exam: Present: warm, dry, intact, normal color. Absent: rash Course Vital Signs 07/08/22 12:54 Temperature 99.7 F H Pulse Rate 82 Respiratory 16 Rate Blood Pressure 150/76 O2 Sat by Pulse 99 Oximetry Disposition Clinical Impression: Leg pain Disposition: HOME SELF-CARE Condition: Good Instructions (If sedation given, give patient instructions): Leg Pain (ED) Is patient prescribed a controlled substance at d/c from ED?: No Referrals: None,Stated [Primary Care Provider] - 1-2 days Georgina Lucio DO [Doctor of Osteopathic Medicine] - 1-2 days
--- NOTE | 2022-07-08 14:06 | XR ---
Left foot. HISTORY: Pain without trauma. COMPARISON: None. TECHNIQUE: 3 views of the left foot were obtained. FINDINGS: There is diffuse. There is evidence for remote trauma/healed fracture of the second metatarsal. There are no acute fractures or dislocations. No focal intraosseous or intra-articular abnormalities. Soft tissues are normal. IMPRESSION: Osteopenia with no other significant abnormality.
--- NOTE | 2022-07-08 14:08 | XR ---
Left tibia and fibula. HISTORY: Pain without trauma. COMPARISON: None. TECHNIQUE: 3 views left tibia and fibula were obtained. FINDINGS: There is mild diffuse osteopenia. There are no focal intraosseous abnormalities. The soft tissues are normal. IMPRESSION: Mild diffuse osteopenia with no other significant abnormality seen.
== END 2022-07-08 14:46 | disposition home or self-care (01) ==
LOC: EC 12:30
DX: M25.572 Pain in left ankle and joints of left foot (principal); J44.9 Chronic obstructive pulmonary disease, unspecified; Z86.73 Personal history of transient ischemic attack (TIA), and cerebral infarction without residual deficits; K21.9 Gastro-esophageal reflux disease without esophagitis; I10 Essential (primary) hypertension; M19.90 Unspecified osteoarthritis, unspecified site; F17.200 Nicotine dependence, unspecified, uncomplicated; Z79.899 Other long term (current) drug therapy
CPT/HCPCS: 87635; 99283

== ENCOUNTER 2023-01-08 10:58 | Emergency (ER) | payer BC ==
[2023-01-08 11:06] VITALS: RESP 18
[2023-01-08] MEDS ORDERED: SODIUM CHLORIDE 0.9% 1,000 ML IV STA (11:29)
[2023-01-08] MEDS ORDERED: ONDANSETRON 4 MG/2 ML VIAL IVP STA (11:29)
[2023-01-08] MEDS ORDERED: HYDROmorphone 1 MG/ML 1 ML SYRINGE IVP STA ×2 (11:30→13:45)
[2023-01-08 12:00] LABS: Anisocytosis Slight; Basophils % (A) 0 %; Eosinophils # (A) 0.1 k/uL (0-0.7); Eosinophils % (A) 2 %; HGB 14.6 gm/dL (11.4-16.0); Lymphocytes # (A) 1.7 k/uL (1.0-4.8); Lymphocytes % (A) 24 %; MCH 26.6 pg (25.0-35.0); MCHC 31.8 g/dL (31.0-37.0); MCV 83.4 fL (80.0-100.0); Mean Platelet Volume 8.4; Monocytes # (A) 0.4 k/uL (0-1.0); Monocytes % (A) 5 %; Neutrophils # (A) 4.9 k/uL (1.3-7.7); Neutrophils % (A) 68 %; Platelet Count 348 k/uL (150-450); RBC 5.51 m/uL (3.80-5.40); RDW 17.1 % (11.5-15.5); WBC 7.3 k/uL (3.8-10.6)
--- NOTE | 2023-01-08 12:03 | ED ---
Abdominal Pain HPI - General Chief Complaint: Abdominal Pain Stated Complaint: abd pain, nausea Time Seen by Provider: 01/08/23 11:19 Source: patient, EMS, RN notes reviewed Mode of arrival: EMS Limitations: no limitations - History of Present Illness Initial Comments: This is a 67-year-old female who presents to the emergency department for right upper quadrant and epigastric pain that radiates into the back. States that the symptoms started last night. She has a history of chronic pancreatitis and states that the symptoms feel the same. However, she has associated nausea and vomiting and is unable to keep down her pain medication, [place] and morphine. States that when she is able to keep down the medication, it successfully treats her symptoms. Denies any changes in bowel/bladder habits. Denies any fevers, chills, sore throat, cough, dyspnea, chest pain, palpitations, diarrhea, back pain, or headaches. MD Complaint: abdominal pain Onset/Timin -: days(s) Location: RUQ, epigastric - Related Data Home Medications Medication Instructions Recorded Confirmed Loperamide [Imodium] 2 mg PO BID PRN 05/11/22 01/08/23 Albuterol Inhaler [Ventolin Hfa 2 puff INHALATION RT-Q6H PRN 09/01/22 01/08/23 Inhaler] Butalbit/Acetamin/Caff/Codeine 1 cap PO Q6HR PRN 01/08/23 01/08/23 [Fioricet-Cod [id number] Cap] Gabapentin 600 mg PO QID 01/08/23 01/08/23 HYDROcodone/APAP 5-325MG [[place] 1 tab PO TID PRN 01/08/23 01/08/23 5-325] Morphine Sulfate ER [Ms Contin] 15 mg PO BID PRN 01/08/23 01/08/23 Previous Rx's Medication Instructions Recorded Metoclopramide [Reglan] 10 mg PO Q6H PRN #20 tab 01/08/23 Ondansetron Odt [Zofran Odt] 4 mg PO Q8HR PRN #15 tab 01/08/23 Allergies Allergy/AdvReac Type Severity Reaction Status Date / Time No Known Allergies Allergy Verified 01/08/23 14:48 Review of Systems ROS Statement: Those systems with pertinent positive or pertinent negative responses have been documented in the HPI. ROS Other: All systems not noted in ROS Statement are negative. Past Medical History Past Medical History: COPD, CVA/TIA, GERD/Reflux, Hypertension, Osteoarthritis (OA) Additional Past Medical History / Comment(s): migraines, stroke Sep 2019-left side weakness, hiatal hernia, diarrhea, no longer needing BP med, chronic pancreatitis, hx anemia, weight loss recently, unsure why-HAS GAINED 10 LBS History of Any Multi-Drug Resistant Organisms: None Reported Past Surgical History: Appendectomy, Back Surgery, Bowel Resection, Cholecystectomy, Hernia Repair, Orthopedic Surgery, Tonsillectomy Additional Past Surgical History / Comment(s): Umbilical hernia repair (10/20/21), Pancreatic stents-since removed, 6 back surgeries with 2 fusions, right fallopian tube due to ectopic , EGD/colonoscopy, ORIF right femur alice inserted d/t fracture, BACK SURGERY-REMOVED OLD HARDWARE AND PUT IN NEW HARDWARE 09/28/20, bowel rupture surgery, right carotid endarterectomy Past Anesthesia/Blood Transfusion Reactions: No Reported Reaction Additional Past Anesthesia/Blood Transfusion Reaction / Comment(s): DIFF IV STA RTS. Pt has received blood in past without reaction. Past Psychological History: No Psychological Hx Reported Smoking Status: Current every day smoker Past Alcohol Use History: None Reported Past Drug Use History: None Reported - Past Family History Father Family Medical History: Cancer Mother Family Medical History: Cancer, CVA/TIA Additional Family Medical History / Comment(s): Breast and colon cancer. General Exam Limitations: no limitations General appearance: alert, in distress Head exam: Present: atraumatic, normocephalic, normal inspection Respiratory exam: Present: normal lung sounds bilaterally. Absent: respiratory distress, wheezes, rales, rhonchi, stridor Cardiovascular Exam: Present: regular rate, normal rhythm, normal heart sounds. Absent: systolic murmur, diastolic murmur, rubs, gallop, clicks GI/Abdominal exam: Present: soft, tenderness (RUQ and epigastric), normal bowel sounds. Absent: distended Neurological exam: Present: alert, oriented X3, CN II-XII intact Psychiatric exam: Present: normal affect, normal mood Skin exam: Present: warm, dry, intact, normal color. Absent: rash Course Vital Signs 01/08/23 01/08/23 01/08/23 11:03 11:49 13:48 Temperature 99.2 F Pulse Rate 85 66 61 Respiratory 18 18 18 Rate Blood Pressure 137/89 125/57 142/78 O2 Sat by Pulse 97 99 99 Oximetry 01/08/23 15:33 Temperature 97.7 F Pulse Rate 73 Respiratory 18 Rate Blood Pressure 148/68 O2 Sat by Pulse 97 Oximetry Medical Decision Making - Medical Decision Making This is a 67-year-old female who presents to the emergency department for right upper quadrant and epigastric abdominal pain. Was pt. sent in by a medical professional or institution? @ -No Did you speak to anyone other than the patient for history? @ -No Did you review nursing and triage notes? @ -Yes, and I agree, it is accurate with regards to the patient's symptoms. Were old charts reviewed? @ -No Differential Diagnosis? @ -Differential Abdominal Pain Women: Diverticulosis, ischemic bowel, pancreatitis, hepatitis, UTI, gastroenteritis, AAA, incarcerated hernia, bowel obstruction, constipation, inflammatory bowel, hepatitis, peptic ulcer disease, splenic infarction, perforated viscus, vulvitis, ovarian torsion, PID, kidney stone, placenta abruption, this is not meant to be an all-inclusive list What testing was considered but not performed? (CT, X-rays, U/S, labs)? Why? @ -None What meds were considered but not given? Why? @ -None Did you discuss the management of the patient with other professionals? @ -No Did you reconcile home meds? @ -No Was smoking cessation discussed for >3mins.? @ -No Was critical care preformed (if so, how long)? @ -No Were there social determinants of health that impacted care today? How? (Homelessness, low income, unemployed, alcoholism, drug addiction, transportation, low edu. Level, literacy, decrease access to med. care, halfway, rehab)? @ -No Was there de-escalation of care discussed even if they declined? (Discuss DNR or withdrawal of care, Hospice)? @ -No What co-morbidities impacted this encounter? (DM, HTN, Smoking, COPD, CAD, Cancer, CVA, Hep., AIDS, mental health diagnosis, sleep apnea, morbid obesity)? @ -Chronic pancreatitis Was patient admitted / discharged? @ -Discharged. Lab work obtained revealing hypokalemia. Patient given IV fluids, Dilaudid, Reglan, and Zofran with resolution of symptoms. When the nausea was controlled, she was given 40 mEq of K-dur for the hypokalemia. Patient was able to eat and drink prior to discharge without difficulty. Prescription for Reglan and Zofran provided with dosing instructions reviewed. Advised she start with one of the medications and if that is not effective, she can alternate with the other nausea medication. She is also advised to slowly advance her diet as tolerated and remain well-hydrated. Undiagnosed new problem with uncertain prognosis? @ -None Drug Therapy requiring intensive monitoring for toxicity (Heparin, Nitro, Insulin, Cardizem)? @ -None Were any procedures done? @ -None Diagnosis/symptom? @ -Abdominal pain Acute, or Chronic, or Acute on Chronic? @ -Acute Uncomplicated (without systemic symptoms) or Complicated (systemic symptoms)? @ -Uncomplicated Side effects of treatment? @ -None Exacerbation, Progression, or Severe Exacerbation] @ -Not applicable Poses a threat to life or bodily function? @ -No Diagnosis/symptom? @ -Chronic pancreatitis Acute, or Chronic, or Acute on Chronic? @ -Acute on chronic Uncomplicated (without systemic symptoms) or Complicated (systemic symptoms)? @ -Uncomplicated Side effects of treatment? @ -None Exacerbation, Progression, or Severe Exacerbation] @ -Exacerbation Poses a threat to life or bodily function? @ -No Return precautions reviewed in depth, the patient is instructed to return to the emergency department with any new, worsening, or concerning symptoms. Patient verbalized understanding. This case was discussed in detail with the attending ED physician, Dr. Alvarez. Presentation, findings, and treatment plan discussed in detail as well. - Lab Data Result diagrams: 01/08/23 11:42 01/08/23 12:22 Lab Results 01/08/23 01/08/23 01/08/23 Range/Units 11:42 12:22 12:22 WBC 7.3 (3.8-10.6) k/uL RBC 5.51 H (3.80-5.40) m/uL Hgb 14.6 (11.4-16.0) gm/dL Hct 46.0 (34.0-46.0) % MCV 83.4 (80.0-100.0) fL MCH 26.6 (25.0-35.0) pg MCHC 31.8 (31.0-37.0) g/dL RDW 17.1 H (11.5-15.5) % Plt Count 348 (150-450) k/uL MPV 8.4 Neutrophils % 68 % Lymphocytes % 24 % Monocytes % 5 % Eosinophils % 2 % Basophils % 0 % Neutrophils # 4.9 (1.3-7.7) k/uL Lymphocytes # 1.7 (1.0-4.8) k/uL Monocytes # 0.4 (0-1.0) k/uL Eosinophils # 0.1 (0-0.7) k/uL Basophils # 0.0 (0-0.2) k/uL Anisocytosis Slight Sodium (137-145) mmol/L Potassium (3.5-5.1) mmol/L Chloride (98-107) mmol/L Carbon Dioxide (22-30) mmol/L Anion Gap mmol/L BUN (7-17) mg/dL Creatinine (0.52-1.04) mg/dL Est GFR (CKD-EPI)AfAm (>60 ml/min/1.73 sqM) Est GFR (CKD-EPI)NonAf (>60 ml/min/1.73 sqM) Glucose (74-99) mg/dL Plasma Lactic Acid Derek 1.2 (0.7-2.0) mmol/L Calcium (8.4-10.2) mg/dL Total Bilirubin (0.2-1.3) mg/dL AST (14-36) U/L ALT (4-34) U/L Alkaline Phosphatase (38-126) U/L Troponin I <0.012 (0.000-0.034) ng/mL Total Protein (6.3-8.2) g/dL Albumin (3.5-5.0) g/dL Amylase (30-110) U/L Lipase (23-300) U/L Urine Color Urine Appearance (Clear) Urine pH (5.0-8.0) Ur Specific [place] (1.001-1.035) Urine Protein (Negative) Urine Glucose (UA) (Negative) Urine Ketones (Negative) Urine Blood (Negative) Urine Nitrite (Negative) Urine Bilirubin (Negative) Urine Urobilinogen (<2.0) mg/dL Ur Leukocyte Esterase (Negative) Urine RBC (0-5) /hpf Urine WBC (0-5) /hpf Ur Squamous Epith Cells (0-4) /hpf Urine Mucus (None) /hpf 01/08/23 01/08/23 Range/Units 12:22 13:17 WBC (3.8-10.6) k/uL RBC (3.80-5.40) m/uL Hgb (11.4-16.0) gm/dL Hct (34.0-46.0) % MCV (80.0-100.0) fL MCH (25.0-35.0) pg MCHC (31.0-37.0) g/dL RDW (11.5-15.5) % Plt Count (150-450) k/uL MPV Neutrophils % % Lymphocytes % % Monocytes % % Eosinophils % % Basophils % % Neutrophils # (1.3-7.7) k/uL Lymphocytes # (1.0-4.8) k/uL Monocytes # (0-1.0) k/uL Eosinophils # (0-0.7) k/uL Basophils # (0-0.2) k/uL Anisocytosis Sodium 140 (137-145) mmol/L Potassium 2.8 L (3.5-5.1) mmol/L Chloride 107 (98-107) mmol/L Carbon Dioxide 24 (22-30) mmol/L Anion Gap 9 mmol/L BUN 14 (7-17) mg/dL Creatinine 0.69 (0.52-1.04) mg/dL Est GFR (CKD-EPI)AfAm >90 (>60 ml/min/1.73 sqM) Est GFR (CKD-EPI)NonAf >90 (>60 ml/min/1.73 sqM) Glucose 114 H (74-99) mg/dL Plasma Lactic Acid Derek (0.7-2.0) mmol/L Calcium 7.5 L (8.4-10.2) mg/dL Total Bilirubin 0.2 (0.2-1.3) mg/dL AST 23 (14-36) U/L ALT 18 (4-34) U/L Alkaline Phosphatase 114 (38-126) U/L Troponin I (0.000-0.034) ng/mL Total Protein 5.6 L (6.3-8.2) g/dL Albumin 2.9 L (3.5-5.0) g/dL Amylase 33 (30-110) U/L Lipase 25 (23-300) U/L Urine Color Yellow Urine Appearance Cloudy H (Clear) Urine pH 6.0 (5.0-8.0) Ur Specific [place] 1.013 (1.001-1.035) Urine Protein 1+ H (Negative) Urine Glucose (UA) Negative (Negative) Urine Ketones Negative (Negative) Urine Blood Large H (Negative) Urine Nitrite Negative (Negative) Urine Bilirubin Negative (Negative) Urine Urobilinogen <2.0 (<2.0) mg/dL Ur Leukocyte Esterase Negative (Negative) Urine RBC 6 H (0-5) /hpf Urine WBC 2 (0-5) /hpf Ur Squamous Epith Cells <1 (0-4) /hpf Urine Mucus Rare H (None) /hpf Disposition Clinical Impression: Chronic pancreatitis Disposition: HOME SELF-CARE Instructions (If sedation given, give patient instructions): Abdominal Pain (ED) Additional Instructions: Return to the emergency department with any new, worsening, or concerning symptoms. You can alternate with both nausea medications in the event one of them is not effective. Slowly advance your diet as tolerated and remain well- hydrated. Follow up with your primary care provider in 1-2 days. Prescriptions: Metoclopramide [Reglan] 10 mg PO Q6H PRN #20 tab PRN Reason: Nausea And Vomiting Ondansetron Odt [Zofran Odt] 4 mg PO Q8HR PRN #15 tab PRN Reason: Nausea And Vomiting Is patient prescribed a controlled substance at d/c from ED?: No Referrals: Brad Contreras MD [Primary Care Provider] - 1-2 days
[2023-01-08 12:41] LABS: ALT 18 U/L (4-34); AST 23 U/L (14-36); African American GFR (CKD) >90 (>60 ml/min/1.73 sqM); Albumin 2.9 g/dL (3.5-5.0); Alkaline Phosphatase 114 U/L (38-126); Amylase 33 U/L (30-110); Anion Gap 9 mmol/L; Blood Urea Nitrogen 14 mg/dL (7-17); Calcium 7.5 mg/dL (8.4-10.2); Carbon Dioxide 24 mmol/L (22-30); Chloride 107 mmol/L (98-107); Glucose 114 mg/dL (74-99); Lipase 25 U/L (23-300); Non-African American GFR(CKD) >90 (>60 ml/min/1.73 sqM); Potassium 2.8 mmol/L (3.5-5.1); Sodium 140 mmol/L (137-145); Total Bilirubin 0.2 mg/dL (0.2-1.3); Total Protein 5.6 g/dL (6.3-8.2)
[2023-01-08] MEDS ORDERED: POTASSIUM CHLORIDE ER 20 MEQ TAB.ER PO STA (12:47)
[2023-01-08] MEDS ORDERED: ONDANSETRON 4 MG ODT STARTER PACK 2 TAB BTL PO STA (12:58)
[2023-01-08 13:43] LABS: Appearance,Urine Cloudy (Clear); Bilirubin,Urine Negative (Negative); Blood,Urine Large (Negative); Color,Urine Yellow; Glucose,Urine (UA) Negative (Negative); Ketones,Urine Negative (Negative); Leukocyte Esterase,Urine Negative (Negative); Mucus,Urine Rare /hpf; Nitrite,Urine Negative (Negative); Protein,Urine 1+ (Negative); RBC,Urine 6 /hpf (0-5); Specific Gravity,Urine 1.013 (1.001-1.035); Squamous Epithelial Cell,Urine <1 /hpf (0-4); Urobilinogen,Urine <2.0 mg/dL (<2.0); WBC,Urine 2 /hpf (0-5)
[2023-01-08] MEDS ORDERED: METOCLOPRAMIDE 5 MG/ML 2 ML VIAL IVP STA (13:45)
[2023-01-08 15:35] VITALS: BP 148/68; PULSE 73; TEMP 97.7
== END 2023-01-08 15:49 | disposition home or self-care (01) ==
LOC: EC 10:58
DX: K86.1 Other chronic pancreatitis (principal); I10 Essential (primary) hypertension; J44.9 Chronic obstructive pulmonary disease, unspecified; M19.90 Unspecified osteoarthritis, unspecified site; F17.200 Nicotine dependence, unspecified, uncomplicated; Z86.73 Personal history of transient ischemic attack (TIA), and cerebral infarction without residual deficits; Z90.49 Acquired absence of other specified parts of digestive tract
CPT/HCPCS: 36415; 80053; 82150; 83605; 83690; 84484; 85025; 81001; 99285; 96374; 96375 ×2; 96376; 96361; J2765; J2405; J1170; S0119

== ENCOUNTER 2023-02-01 11:06 | Emergency (ER) | payer BC ==
[2023-02-01] MEDS ORDERED: SODIUM CHLORIDE 0.9% 1,000 ML IV STA (11:28)
[2023-02-01] MEDS ORDERED: ONDANSETRON 4 MG/2 ML VIAL IVP STA (11:28)
[2023-02-01] MEDS ORDERED: PANTOPRAZOLE 40 MG/10 ML VIAL IVP STA (11:28)
[2023-02-01] MEDS ORDERED: MORPHINE SULFATE 4 MG/ML SYRINGE IVP STA ×2 (11:28→13:21)
--- NOTE | 2023-02-01 11:42 | ED ---
General Adult HPI - General Chief complaint: Abdominal Pain Stated complaint: Abd pain Source: patient, EMS, RN notes reviewed, old records reviewed Mode of arrival: EMS Limitations: no limitations - History of Present Illness Initial comments: Patient is a 67-year-old female with past medical history remarkable for chronic pancreatitis, COPD, GERD, CVA with residual left-sided weakness presents emergency Department complaining of epigastric abdominal pain which she attributes to her normal pancreatitis. Also is complaining of possibly dark stools over the last 3 days. Endorses nausea as well. Is not on blood thinners. Denies any hematemesis. Denies any hematochezia. Has no urinary complaints. Denies chest pain or shortness of breath. No cardiac history. Presents for further evaluation at this time. - Related Data Home Medications Medication Instructions Recorded Confirmed Loperamide [Imodium] 2 mg PO BID PRN 05/11/22 01/08/23 Albuterol Inhaler [Ventolin Hfa 2 puff INHALATION RT-Q6H PRN 09/01/22 01/08/23 Inhaler] Butalbit/Acetamin/Caff/Codeine 1 cap PO Q6HR PRN 01/08/23 01/08/23 [Fioricet-Cod [id number] Cap] Gabapentin 600 mg PO QID 01/08/23 01/08/23 HYDROcodone/APAP 5-325MG [[place] 1 tab PO TID PRN 01/08/23 01/08/23 5-325] Morphine Sulfate ER [Ms Contin] 15 mg PO BID PRN 01/08/23 01/08/23 Previous Rx's Medication Instructions Recorded Metoclopramide [Reglan] 10 mg PO Q6H PRN #20 tab 01/08/23 Ondansetron Odt [Zofran Odt] 4 mg PO Q8HR PRN #15 tab 01/08/23 Ondansetron Odt [Zofran Odt] 4 mg PO Q8HR PRN 3 Days #9 tab 02/01/23 Pantoprazole [Protonix] 40 mg PO DAILY 7 Days #7 tab 02/01/23 Allergies Allergy/AdvReac Type Severity Reaction Status Date / Time No Known Allergies Allergy Verified 02/01/23 11:17 Review of Systems ROS Statement: Those systems with pertinent positive or pertinent negative responses have been documented in the HPI. Review of Systems: CONST: Denies fever EYES: Denies blurry vision ENT: Denies nasal congestion C/V: Denies Chest pain RESP: Denies shortness of breath GI: Endorses abdominal pain : Denies dysuria SKIN: Denies rash. MSK: Denies joint pain. NEURO: Denies headache ROS Other: All systems not noted in ROS Statement are negative. Past Medical History Past Medical History: COPD, CVA/TIA, GERD/Reflux, Hypertension, Osteoarthritis (OA) Additional Past Medical History / Comment(s): migraines, stroke Sep 2019-left side weakness, hiatal hernia, diarrhea, no longer needing BP med, chronic pancreatitis, hx anemia, weight loss recently, unsure why-HAS GAINED 10 LBS History of Any Multi-Drug Resistant Organisms: None Reported Past Surgical History: Appendectomy, Back Surgery, Bowel Resection, Cholecystectomy, Hernia Repair, Orthopedic Surgery, Tonsillectomy Additional Past Surgical History / Comment(s): Umbilical hernia repair (10/20/21), Pancreatic stents-since removed, 6 back surgeries with 2 fusions, right fallopian tube due to ectopic , EGD/colonoscopy, ORIF right femur alice inserted d/t fracture, BACK SURGERY-REMOVED OLD HARDWARE AND PUT IN NEW HARDWARE 09/28/20, bowel rupture surgery, right carotid endarterectomy Past Anesthesia/Blood Transfusion Reactions: No Reported Reaction Additional Past Anesthesia/Blood Transfusion Reaction / Comment(s): DIFF IV STARTS. Pt has received blood in past without reaction. Past Psychological History: No Psychological Hx Reported Smoking Status: Current every day smoker Past Alcohol Use History: None Reported Past Drug Use History: None Reported - Past Family History Father Family Medical History: Cancer Mother Family Medical History: Cancer, CVA/TIA Additional Family Medical History / Comment(s): Breast and colon cancer. General Exam - General Exam Comments Initial Comments: General: Appears in no acute distress. HEAD: Normal with no signs of head trauma. EYES: PERRLA, EOMI, conjunctiva normal, no discharge. ENT: Hearing grossly intact, normal oropharynx. RESPIRATORY: Clear breath sounds bilaterally. No wheezes, rales, or rhonchi. C/V: Regular rate and rhythm. S1 and S2 auscultated, peripheral pulses 2+ and intact throughout ABD: Abdomen soft, nondistended. Tender to palpation epigastric region. No guarding. No rebound tenderness. No peritoneal signs. EXT: Normal range of motion, no obvious deformity SKIN: No rashes or lesions observed on exposed skin. NEURO: Alert and oriented 4. No acute neurological deficits. Mild left-sided weakness. Limitations: no limitations Course Vital Signs 02/01/23 02/01/23 02/01/23 11:10 12:00 14:00 Temperature 98.6 F Pulse Rate 76 75 56 L Respiratory 20 18 18 Rate Blood Pressure 140/95 163/83 183/94 O2 Sat by Pulse 96 95 96 Oximetry 02/01/23 15:16 Temperature 98.4 F Pulse Rate 62 Respiratory 18 Rate Blood Pressure 161/85 O2 Sat by Pulse 97 Oximetry Medical Decision Making - Medical Decision Making Was pt. sent in by a medical professional or institution (, PA, SPINNER TENDER, urgent care, hospital, or care home...) When possible be specific @ -No Did you speak to anyone other than the patient for history (EMS, parent, family, police, friend...)? What history was obtained from this source @ -No Did you review nursing and triage notes (agree or disagree)? Why? @ -I reviewed and agree with nursing and triage notes Were old charts reviewed (outside hosp., previous admission, EMS record, old EKG, old radiological studies, urgent care reports/EKG's, care home records)? Report findings @ -No old charts were reviewed Differential Diagnosis (chest pain, altered mental status, abdominal pain women, abdominal pain men, vaginal bleeding, weakness, fever, dyspnea, syncope, headache, dizziness, GI bleed, back pain, seizure, CVA, palpatations, mental health, musculoskeletal)? @ -Differential Abdominal Pain Women: Appendicitis, Cholecystitis, diverticulosis, ischemic bowel, pancreatitis, hepatitis, UTI, gastroenteritis, AAA, incarcerated hernia, bowel obstruction, constipation, inflammatory bowel, hepatitis, peptic ulcer disease, splenic infarction, perforated viscus, vulvitis, ovarian torsion, PID, kidney stone, placenta abruption, this is not meant to be an all-inclusive list EKG interpreted by me (3pts min.). @ -As above X-rays interpreted by me (1pt min.). @ -Chest x-ray revealed no obvious acute cardio pulmonary process.. CT interpreted by me (1pt min.). @ -CT abdomen and pelvis revealed chronic findings including chronic pancreatitis, patient also has esophagitis, chronic pneumobilia. U/S interpreted by me (1pt. min.). @ -None done What testing was considered but not performed or refused? (CT, X-rays, U/S, labs)? Why? @ -None What meds were considered but not given or refused? Why? @ -None Did you discuss the management of the patient with other professionals (professionals i.e. , PA, SPINNER TENDER, lab, RT, psych nurse, social welfare administrator, pulmonologist intensivist, teacher, fire management officer, case worker)? Give summary @ -No Was smoking cessation discussed for >3mins.? @ -No Was critical care preformed (if so, how long)? @ -No Were there social determinants of health that impacted care today? How? (Homelessness, low income, unemployed, alcoholism, drug addiction, transportation, low edu. Level, literacy, decrease access to med. care, shelter, rehab)? @ -No Was there de-escalation of care discussed even if they declined (Discuss DNR or withdrawal of care, Hospice)? DNR status @ -No What co-morbidities impacted this encounter? (DM, HTN, Smoking, COPD, CAD, Can cer, CVA, ARF, Chemo, Hep., AIDS, mental health diagnosis, sleep apnea, morbid obesity)? @ -Chronic pancreatitis Was patient admitted / discharged? Hospital course, mention meds given and route, prescriptions, significant lab abnormalities, going to OR and other pertinent info. @ -Based on the patient's presentation and physical exam, I'm concerned for acute intra-abdominal process for current symptoms. I did offer a rectal exam to evaluate for the dark stools which she declines at this time. We will obtain abdominal laboratory studies, CT abdomen and pelvis, as well as screening EKG and chest x-ray. Patient was in agreement this plan. She was symptomatically treated with IV morphine, Protonix, Zofran, 1 L fluid bolus. Patient's imaging is unremarkable for any acute process. Appears to have gastritis as well as esophagitis which is acute on chronic as well as chronic pancreatitis. Patient's labs are within acceptable limits. On reevaluation, take patient is tolerating oral intake. Pain is controlled. We discussed workup and results on imaging. She'll be discharged home at this time. Strict return precautions discussed. I will provide the patient with a prescription for ODT Zofran, Protonix. I instructed the patient to follow up with their PCP in the next 1-3 days. I explained that the patient should return to the emergency department if they experience any worsening symptoms. Strict return precautions were discussed with the patient. The patient expressed understanding of these instructions. I answered all questions that the patient had. The patient was discharged home in good condition with their prescriptions and follow up information. Undiagnosed new problem with uncertain prognosis? @ -No Drug Therapy requiring intensive monitoring for toxicity (Heparin, Nitro, Insulin, Cardizem)? @ -No Were any procedures done? @ -No Diagnosis/symptom? @ -Gastritis, esophagitis, pancreatitis, nausea and vomiting Acute, or Chronic, or Acute on Chronic? @ -Acute on chronic Uncomplicated (without systemic symptoms) or Complicated (systemic symptoms)? @ -Complicated Side effects of treatment? @ -none Exacerbation, Progression, or Severe Exacerbation] @ -no Poses a threat to life or bodily function? @ -no - Lab Data Result diagrams: 02/01/23 11:37 02/01/23 11:37 Lab Results 02/01/23 02/01/23 02/01/23 Range/Units 11:37 11:37 11:37 WBC 5.3 (3.8-10.6) k/uL RBC 4.21 (3.80-5.40) m/uL Hgb 11.8 (11.4-16.0) gm/dL Hct 36.0 (34.0-46.0) % MCV 85.5 (80.0-100.0) fL MCH 28.0 (25.0-35.0) pg MCHC 32.7 (31.0-37.0) g/dL RDW 15.7 H (11.5-15.5) % Plt Count 341 (150-450) k/uL MPV 7.9 Neutrophils % 50 % Lymphocytes % 37 % Monocytes % 7 % Eosinophils % 4 % Basophils % 1 % Neutrophils # 2.7 (1.3-7.7) k/uL Lymphocytes # 2.0 (1.0-4.8) k/uL Monocytes # 0.4 (0-1.0) k/uL Eosinophils # 0.2 (0-0.7) k/uL Basophils # 0.0 (0-0.2) k/uL PT 10.4 (9.0-12.0) sec INR 1.0 (<1.2) APTT 23.9 (22.0-30.0) sec Sodium (137-145) mmol/L Potassium (3.5-5.1) mmol/L Chloride (98-107) mmol/L Carbon Dioxide (22-30) mmol/L Anion Gap mmol/L BUN (7-17) mg/dL Creatinine (0.52-1.04) mg/dL Est GFR (CKD-EPI)AfAm (>60 ml/min/1.73 sqM) Est GFR (CKD-EPI)NonAf (>60 ml/min/1.73 sqM) Glucose (74-99) mg/dL Plasma Lactic Acid Derek (0.7-2.0) mmol/L Calcium (8.4-10.2) mg/dL Total Bilirubin (0.2-1.3) mg/dL AST (14-36) U/L ALT (4-34) U/L Alkaline Phosphatase (38-126) U/L Total Protein (6.3-8.2) g/dL Albumin (3.5-5.0) g/dL Amylase (30-110) U/L Lipase (23-300) U/L Urine Color Yellow Urine Appearance Clear (Clear) Urine pH 6.5 (5.0-8.0) Ur Specific [place] 1.015 (1.001-1.035) Urine Protein Trace H (Negative) Urine Glucose (UA) Negative (Negative) Urine Ketones Negative (Negative) Urine Blood Small H (Negative) Urine Nitrite Negative (Negative) Urine Bilirubin Negative (Negative) Urine Urobilinogen <2.0 (<2.0) mg/dL Ur Leukocyte Esterase Moderate H (Negative) Urine RBC 12 H (0-5) /hpf Urine WBC 11 H (0-5) /hpf Ur Squamous Epith Cells 1 (0-4) /hpf Calcium Oxalate Crystal Occasional H (None) /hpf Urine Mucus Rare H (None) /hpf 02/01/23 02/01/23 Range/Units 11:37 11:37 WBC (3.8-10.6) k/uL RBC (3.80-5.40) m/uL Hgb (11.4-16.0) gm/dL Hct (34.0-46.0) % MCV (80.0-100.0) fL MCH (25.0-35.0) pg MCHC (31.0-37.0) g/dL RDW (11.5-15.5) % Plt Count (150-450) k/uL MPV Neutrophils % % Lymphocytes % % Monocytes % % Eosinophils % % Basophils % % Neutrophils # (1.3-7.7) k/uL Lymphocytes # (1.0-4.8) k/uL Monocytes # (0-1.0) k/uL Eosinophils # (0-0.7) k/uL Basophils # (0-0.2) k/uL PT (9.0-12.0) sec INR (<1.2) APTT (22.0-30.0) sec Sodium 141 (137-145) mmol/L Potassium 3.5 (3.5-5.1) mmol/L Chloride 110 H (98-107) mmol/L Carbon Dioxide 24 (22-30) mmol/L Anion Gap 7 mmol/L BUN 18 H (7-17) mg/dL Creatinine 0.71 (0.52-1.04) mg/dL Est GFR (CKD-EPI)AfAm >90 (>60 ml/min/1.73 sqM) Est GFR (CKD-EPI)NonAf 89 (>60 ml/min/1.73 sqM) Glucose 90 (74-99) mg/dL Plasma Lactic Acid Derek 1.0 (0.7-2.0) mmol/L Calcium 7.9 L (8.4-10.2) mg/dL Total Bilirubin 0.2 (0.2-1.3) mg/dL AST 34 (14-36) U/L ALT 30 (4-34) U/L Alkaline Phosphatase 113 (38-126) U/L Total Protein 6.0 L (6.3-8.2) g/dL Albumin 3.3 L (3.5-5.0) g/dL Amylase 41 (30-110) U/L Lipase 33 (23-300) U/L Urine Color Urine Appearance (Clear) Urine pH (5.0-8.0) Ur Specific [place] (1.001-1.035) Urine Protein (Negative) Urine Glucose (UA) (Negative) Urine Ketones (Negative) Urine Blood (Negative) Urine Nitrite (Negative) Urine Bilirubin (Negative) Urine Urobilinogen (<2.0) mg/dL Ur Leukocyte Esterase (Negative) Urine RBC (0-5) /hpf Urine WBC (0-5) /hpf Ur Squamous Epith Cells (0-4) /hpf Calcium Oxalate Crystal (None) /hpf Urine Mucus (None) /hpf - EKG Data -: EKG Interpreted by Me EKG Comments: 12-lead Electrocardiogram Interpretation Note EKG was reviewed and interpreted by myself. 12-lead ECG performed at 1148 is interpreted by me as revealing normal sinus rhythm at a rate of 69 beats per minute. [place] is normal. NM interval is 148 ms, QRS duration is 78 ms, QTc is 455 ms.. There were no ST or T wave abnormalities to suggest myocardial ischemia or injury. R wave progression across the precordium was satisfactory. By my interpretation this EKG is non-diagnostic for acute ischemia. Disposition Clinical Impression: Abdominal pain, Gastritis, Esophagitis Disposition: HOME SELF-CARE Condition: Good Instructions (If sedation given, give patient instructions): Abdominal Pain (ED), Esophagitis (ED) Prescriptions: Pantoprazole [Protonix] 40 mg PO DAILY 7 Days #7 tab Ondansetron Odt [Zofran Odt] 4 mg PO Q8HR PRN 3 Days #9 tab PRN Reason: Nausea Is patient prescribed a controlled substance at d/c from ED?: No Referrals: Brad Cotnreras MD [Primary Care Provider] - 1-2 days Time of Disposition: 14:55
[2023-02-01 11:55] LABS: Basophils % (A) 1 %; Eosinophils # (A) 0.2 k/uL (0-0.7); Eosinophils % (A) 4 %; HGB 11.8 gm/dL (11.4-16.0); Lymphocytes % (A) 37 %; MCHC 32.7 g/dL (31.0-37.0); MCV 85.5 fL (80.0-100.0); Mean Platelet Volume 7.9; Monocytes # (A) 0.4 k/uL (0-1.0); Monocytes % (A) 7 %; Neutrophils # (A) 2.7 k/uL (1.3-7.7); Neutrophils % (A) 50 %; Platelet Count 341 k/uL (150-450); RBC 4.21 m/uL (3.80-5.40); RDW 15.7 % (11.5-15.5); WBC 5.3 k/uL (3.8-10.6)
[2023-02-01 12:10] LABS: Partial Thromboplastin Time 23.9 sec (22.0-30.0); Prothrombin Time 10.4 sec (9.0-12.0)
[2023-02-01 12:14] LABS: ALT 30 U/L (4-34); AST 34 U/L (14-36); African American GFR (CKD) >90 (>60 ml/min/1.73 sqM); Albumin 3.3 g/dL (3.5-5.0); Alkaline Phosphatase 113 U/L (38-126); Amylase 41 U/L (30-110); Anion Gap 7 mmol/L; Blood Urea Nitrogen 18 mg/dL (7-17); Calcium 7.9 mg/dL (8.4-10.2); Carbon Dioxide 24 mmol/L (22-30); Chloride 110 mmol/L (98-107); Glucose 90 mg/dL (74-99); Lipase 33 U/L (23-300); Non-African American GFR(CKD) 89 (>60 ml/min/1.73 sqM); Potassium 3.5 mmol/L (3.5-5.1); Sodium 141 mmol/L (137-145); Total Bilirubin 0.2 mg/dL (0.2-1.3)
[2023-02-01 12:41] VITALS: RESP 18
--- NOTE | 2023-02-01 12:59 | XR ---
EXAMINATION TYPE: XR chest 1V portable DATE OF EXAM: 02/01/2023 11:58 AM COMPARISON: Chest radiographs from 03/17/2022 TECHNIQUE: XR chest 1V portable Frontal view of the chest. CLINICAL INDICATION:Female, 67 years old with history of abdominal pain; FINDINGS: Lungs/Pleura: There is no evidence of pleural effusion, focal consolidation, or pneumothorax. Pulmonary vascularity: Unremarkable. Heart/mediastinum: Cardiomediastinal silhouette is unremarkable. Musculoskeletal: No acute osseous pathology. There is spine fixation hardware is present. IMPRESSION: No acute cardiopulmonary disease/process.
[2023-02-01 13:17] LABS: Appearance,Urine Clear (Clear); Bilirubin,Urine Negative (Negative); Blood,Urine Small (Negative); Calcium Oxalate Crystals,Urine Occasional /hpf; Color,Urine Yellow; Glucose,Urine (UA) Negative (Negative); Ketones,Urine Negative (Negative); Leukocyte Esterase,Urine Moderate (Negative); Mucus,Urine Rare /hpf; Nitrite,Urine Negative (Negative); PH, Urine 6.5 (5.0-8.0); Protein,Urine Trace (Negative); RBC,Urine 12 /hpf (0-5); Specific Gravity,Urine 1.015 (1.001-1.035); Squamous Epithelial Cell,Urine 1 /hpf (0-4); Urobilinogen,Urine <2.0 mg/dL (<2.0); WBC,Urine 11 /hpf (0-5)
--- NOTE | 2023-02-01 14:07 | CT ---
EXAMINATION TYPE: CT abdomen pelvis w con CT DLP: 766.7 mGycm, Automated exposure control for dose reduction was used. DATE OF EXAM: 02/01/2023 1:19 PM COMPARISON: CT abdomen pelvis most recent from CLINICAL INDICATION:Female, 67 years old with history of abdominal pain; Epigastric abdominal pain. TECHNIQUE: Axial CT of the abdomen and pelvis. Sagittal and coronal reformats were created on a [employer] workstation. Contrast used:100ml mL of Isovue 300 with IV Contrast, Oral contrast used: without Oral Contrast FINDINGS: LOWER CHEST: Unremarkable ABDOMEN LIVER: Unremarkable GALLBLADDER AND BILE DUCTS: Similar immobility compared to prior. PANCREAS: Scattered pancreatic calcifications. The dilation of the pancreatic duct is similar to prio r with somewhat undulating appearance. SPLEEN: Unremarkable. ADRENAL GLANDS: Unremarkable. KIDNEYS AND URETERS: No evidence of hydronephrosis nonobstructing 2 mm right renal calculi. No obstru cting left renal calculi. Right renal cyst. PELVIS BLADDER: Unremarkable REPRODUCTIVE: Unremarkable. ABDOMEN & PELVIS STOMACH AND BOWEL: No evidence of bowel obstruction. Thickened appearance of the gastroesophageal abdullahi ction as it extends into the stomach somewhat telescoping the wall may be circumferentially thickened measuring up to 8 mm.. Series 201 image 14. Prominent loops of jejunum measuring up to 5.1 cm, previ ously up to 4.5 cm. Few scattered colonic diverticula. PERITONEUM/RETROPERITONEUM: No evidence of pneumoperitoneum or free fluid. VASCULATURE: Moderate atherosclerotic calcifications are present throughout the abdominal aorta and i ts branches. No evidence of aortic aneurysm. MUSCULOSKELETAL: Multilevel degeneration changes throughout the spine. There is fixation hardware thr oughout the spine which appears intact. Multilevel vertebroplasty changes. Partially visualized intra medullary alice within the right femur. LYMPH NODES: No gross evidence for lymphadenopathy. SOFT TISSUE/ABDOMINAL WALL: Unremarkable IMPRESSION: 1. Thickened gastroesophageal junction consider further evaluation for esophagitis. More prominent o n today's exam. It may be secondary to the esophagus testicle being into the gastric lumen 2. Postsurgical changes to the upper gastric intestinal tract with persistent dilation of loops of j ejunum as seen on prior. 3. Chronic pancreatitis changes with undulating dilated pancreatic duct. No definitive evidence for acute hepatitis. 4. Similar pneumobilia. 5. No obstructing right 2 mm focus. 6. Postsurgical changes to the spine with hardware intact. 7. Colonic diverticulosis.
[2023-02-01] MEDS ORDERED: MAG HYDROX/AL HYDROX/SIMETH 30 ML, HYOSCYAMINE ELIXIR 10 ML, LIDOCAINE 2% GLYDO JELLY 1... PO STA ×3 (14:17)
[2023-02-01] MEDS ORDERED: MORPHINE SULFATE 2 MG/ML SYRINGE IVP STA (15:03)
[2023-02-01 15:17] VITALS: BP 161/85; PULSE 62; TEMP 98.4
== END 2023-02-01 15:38 | disposition home or self-care (01) ==
LOC: EC 11:06
DX: K29.70 Gastritis, unspecified, without bleeding (principal); K57.30 Diverticulosis of large intestine without perforation or abscess without bleeding; K85.90 Acute pancreatitis without necrosis or infection, unspecified; K86.1 Other chronic pancreatitis; I10 Essential (primary) hypertension; J44.9 Chronic obstructive pulmonary disease, unspecified; M19.90 Unspecified osteoarthritis, unspecified site; Z79.899 Other long term (current) drug therapy; F17.200 Nicotine dependence, unspecified, uncomplicated; Z90.49 Acquired absence of other specified parts of digestive tract
CPT/HCPCS: 36415; 93005; 80053; 82150; 83605; 83690; 85025; 85610; 85730; 81001; 71045; 74177; 99285; 96374; 96375 ×2; 96376 ×2; 96361 ×3; J2270 ×2; J2405; C9113; Q9967

== ENCOUNTER 2023-02-07 07:11 | Emergency (ER) | payer BC ==
[2023-02-07] MEDS ORDERED: FAMOTIDINE 20 MG/2 ML VIAL IV STA (07:24)
[2023-02-07] MEDS ORDERED: ONDANSETRON 4 MG/2 ML VIAL IVP STA (07:24)
[2023-02-07] MEDS ORDERED: HYDROmorphone 1 MG/ML 1 ML SYRINGE IVP STA (07:24)
[2023-02-07] MEDS ORDERED: SODIUM CHLORIDE 0.9% 1,000 ML IV STA (07:24)
--- NOTE | 2023-02-07 07:28 | ED ---
General Adult HPI - General Chief complaint: Abdominal Pain Stated complaint: V/N Time Seen by Provider: 02/07/23 07:14 Source: patient, RN notes reviewed, old records reviewed Mode of arrival: ambulatory Limitations: no limitations - History of Present Illness Initial comments: Patient is a pleasant 67-year-old female presenting to the emergency department with concerns for abdominal pain. Patient states symptoms are similar to her chronic pancreatitis. Patient complains of nausea and vomiting since last night. Patient has epigastric discomfort. Patient does have history of similar symptoms multiple times previously associated pancreatitis. Patient has had some mild diarrhea. No fever. - Related Data Home Medications Medication Instructions Recorded Confirmed Loperamide [Imodium] 2 mg PO BID PRN 05/11/22 01/08/23 Albuterol Inhaler [Ventolin Hfa 2 puff INHALATION RT-Q6H PRN 09/01/22 01/08/23 Inhaler] Butalbit/Acetamin/Caff/Codeine 1 cap PO Q6HR PRN 01/08/23 01/08/23 [Fioricet-Cod 81-588-62-30 Cap] Gabapentin 600 mg PO QID 01/08/23 01/08/23 HYDROcodone/APAP 5-325MG [[place] 1 tab PO TID PRN 01/08/23 01/08/23 5-325] Morphine Sulfate ER [Ms Contin] 15 mg PO BID PRN 01/08/23 01/08/23 Previous Rx's Medication Instructions Recorded Metoclopramide [Reglan] 10 mg PO Q6H PRN #20 tab 01/08/23 Ondansetron Odt [Zofran Odt] 4 mg PO Q8HR PRN #15 tab 01/08/23 Ondansetron Odt [Zofran Odt] 4 mg PO Q8HR PRN 3 Days #9 tab 02/01/23 Pantoprazole [Protonix] 40 mg PO DAILY 7 Days #7 tab 02/01/23 Allergies Allergy/AdvReac Type Severity Reaction Status Date / Time No Known Allergies Allergy Verified 02/01/23 11:17 Review of Systems ROS Statement: Those systems with pertinent positive or pertinent negative responses have been documented in the HPI. ROS Other: All systems not noted in ROS Statement are negative. Constitutional: Denies: fever Eyes: Denies: eye pain ENT: Denies: ear pain Respiratory: Denies: cough Cardiovascular: Denies: chest pain Endocrine: Denies: fatigue Gastrointestinal: Reports: as per HPI, abdominal pain, nausea, vomiting Genitourinary: Denies: dysuria Musculoskeletal: Denies: back pain Skin: Denies: rash Neurological: Denies: weakness Past Medical History Past Medical History: COPD, CVA/TIA, GERD/Reflux, Hypertension, Osteoarthritis (OA) Additional Past Medical History / Comment(s): migraines, stroke Sep 2019-left side weakness, hiatal hernia, diarrhea, no longer needing BP med, chronic pancreatitis, hx anemia, weight loss recently, unsure why-HAS GAINED 10 LBS History of Any Multi-Drug Resistant Organisms: None Reported Past Surgical History: Appendectomy, Back Surgery, Bowel Resection, Cholecystectomy, Hernia Repair, Orthopedic Surgery, Tonsillectomy Additional Past Surgical History / Comment(s): Umbilical hernia repair (10/20/21), Pancreatic stents-since removed, 6 back surgeries with 2 fusions, right fallopian tube due to ectopic , EGD/colonoscopy, ORIF right femur alice inserted d/t fracture, BACK SURGERY-REMOVED OLD HARDWARE AND PUT IN NEW HARDWARE 09/28/20, bowel rupture surgery, right carotid endarterectomy Past Anesthesia/Blood Transfusion Reactions: No Reported Reaction Additional Past Anesthesia/Blood Transfusion Reaction / Comment(s): DIFF IV STARTS. Pt has received blood in past without reaction. Past Psychological History: No Psychological Hx Reported Smoking Status: Current every day smoker Past Alcohol Use History: None Reported Past Drug Use History: None Reported - Past Family History Father Family Medical History: Cancer Mother Family Medical History: Cancer, CVA/TIA Additional Family Medical History / Comment(s): Breast and colon cancer. General Exam Limitations: no limitations General appearance: alert, in no apparent distress Head exam: Present: normocephalic Eye exam: Present: normal appearance Neck exam: Present: normal inspection Respiratory exam: Present: normal lung sounds bilaterally Cardiovascular Exam: Present: regular rate, normal rhythm Expanded Peripheral pulses: 2+: Dorsalis Pedis (R), Dorsalis Pedis (L) GI/Abdominal exam: Present: soft, tenderness (Mild epigastric tenderness to palpation), normal bowel sounds. Absent: distended, guarding, rebound, rigid, pulsatile mass Extremities exam: Present: normal inspection Neurological exam: Present: alert Psychiatric exam: Present: normal affect, normal mood Skin exam: Present: normal color Course Vital Signs 02/07/23 07:16 Temperature 98 F Pulse Rate 72 Respiratory 18 Rate Blood Pressure 134/95 O2 Sat by Pulse 98 Oximetry Medical Decision Making - Medical Decision Making Was pt. sent in by a medical professional or institution (, OLEG, VISION THERAPIST, urgent care, hospital, or senior living...) When possible be specific @ -No Did you speak to anyone other than the patient for history (EMS, parent, family, police, friend...)? What history was obtained from this source @ -No Did you review nursing and triage notes (agree or disagree)? Why? @ -I reviewed and agree with nursing and triage notes Were old charts reviewed (outside hosp., previous admission, EMS record, old EKG, old radiological studies, urgent care reports/EKG's, senior living records)? Report findings @ -Previous CT reviewed Differential Diagnosis (chest pain, altered mental status, abdominal pain women, abdominal pain men, vaginal bleeding, weakness, fever, dyspnea, syncope, headache, dizziness, GI bleed, back pain, seizure, CVA, palpatations, mental health)? @ -Differential Abdominal Pain Women: Appendicitis, Cholecystitis, diverticulosis, ischemic bowel, pancreatitis, hepatitis, UTI, gastroenteritis, AAA, incarcerated hernia, bowel obstruction, constipation, inflammatory bowel, hepatitis, peptic ulcer disease, splenic infarction, perforated viscus, vulvitis, ovarian torsion, PID, kidney stone, placenta abruption, this is not meant to be an all-inclusive list EKG interpreted by me (3pts min.). @ -As above X-rays interpreted by me (1pt min.). @ -Abdominal x-ray shows no acute process CT interpreted by me (1pt min.). @ -None done U/S interpreted by me (1pt. min.). @ -None done What testing was considered but not performed or refused? (CT, X-rays, U/S, labs)? Why? @ -None What meds were considered but not given or refused? Why? @ -None Did you discuss the management of the patient with other professionals (professionals i.e. OLEG Arias, VISION THERAPIST, lab, RT, psych nurse, older adult social work specialist, foil spooler, teacher, armoured corps officer, porter sample case)? Give summary @ -No Was smoking cessation discussed for >3mins.? @ -No Was critical care preformed (if so, how long)? @ -No Were there social determinants of health that impacted care today? How? (Homelessness, low income, unemployed, alcoholism, drug addiction, transportation, low edu. Level, literacy, decrease access to med. care, prison, rehab)? @ -No Was there de-escalation of care discussed even if they declined (Discuss DNR or withdrawal of care, Hospice)? DNR status @ -No What co-morbidities impacted this encounter? (DM, HTN, Smoking, COPD, CAD, Cancer, CVA, ARF, Chemo, Hep., AIDS, mental health diagnosis, sleep apnea, morbid obesity)? @ -None Was patient admitted / discharged? Hospital course, mention meds given and route, prescriptions, significant lab abnormalities, going to OR and other pertinent info. @ -Patient reevaluated and resting comfortably in bed. Patient states she still has some very mild discomfort and requests more pain medication. Patient updated on results and need for follow-up. Patient recommended follow-up with gastroenterology. Undiagnosed new problem with uncertain prognosis? @ -No Drug Therapy requiring intensive monitoring for toxicity (Heparin, Nitro, Insulin, Cardizem)? @ -No Were any procedures done? @ -No Diagnosis/symptom? @ -Abdominal pain Acute, or Chronic, or Acute on Chronic? @ -Acute on chronic Uncomplicated (without systemic symptoms) or Complicated (systemic symptoms)? @ -default Side effects of treatment? @ -No Exacerbation, Progression, or Severe Exacerbation? @ -No Poses a threat to life or bodily function? How? (Chest pain, USA, ID, pneumonia, PE, COPD, DKA, ARF, appy, cholecystitis, CVA, Diverticulitis, Homicidal, Suicidal, threat to staff... and all critical care pts) @ -No - Lab Data Result diagrams: 02/07/23 07:36 02/07/23 07:36 Lab Results 02/07/23 02/07/23 02/07/23 Range/Units 07:36 07:36 07:36 WBC 6.6 (3.8-10.6) k/uL RBC 4.50 (3.80-5.40) m/uL Hgb 12.1 (11.4-16.0) gm/dL Hct 38.8 (34.0-46.0) % MCV 86.2 (80.0-100.0) fL MCH 26.8 (25.0-35.0) pg MCHC 31.1 (31.0-37.0) g/dL RDW 15.8 H (11.5-15.5) % Plt Count 285 (150-450) k/uL MPV 7.7 Neutrophils % 53 % Lymphocytes % 34 % Monocytes % 6 % Eosinophils % 5 % Basophils % 1 % Neutrophils # 3.5 (1.3-7.7) k/uL Lymphocytes # 2.2 (1.0-4.8) k/uL Monocytes # 0.4 (0-1.0) k/uL Eosinophils # 0.3 (0-0.7) k/uL Basophils # 0.0 (0-0.2) k/uL PT 9.8 (9.0-12.0) sec INR 0.9 (<1.2) APTT 21.3 L (22.0-30.0) sec Sodium 139 (137-145) mmol/L Potassium 4.1 (3.5-5.1) mmol/L Chloride 106 (98-107) mmol/L Carbon Dioxide 24 (22-30) mmol/L Anion Gap 9 mmol/L BUN 20 H (7-17) mg/dL Creatinine 0.60 (0.52-1.04) mg/dL Est GFR (CKD-EPI)AfAm >90 (>60 ml/min/1.73 sqM) Est GFR (CKD-EPI)NonAf >90 (>60 ml/min/1.73 sqM) Glucose 84 (74-99) mg/dL Calcium 8.7 (8.4-10.2) mg/dL Total Bilirubin 0.2 (0.2-1.3) mg/dL AST 22 (14-36) U/L ALT 23 (4-34) U/L Alkaline Phosphatase 127 H (38-126) U/L Total Protein 6.7 (6.3-8.2) g/dL Albumin 3.8 (3.5-5.0) g/dL Amylase 45 (30-110) U/L Lipase 30 (23-300) U/L Disposition Clinical Impression: Abdominal pain Disposition: HOME SELF-CARE Condition: Stable Instructions (If sedation given, give patient instructions): Abdominal Pain (ED) Additional Instructions: Please do follow-up with your primary care physician in the next couple days for recheck. Please also follow-up with [facility], number provided. Return for increased pain, fever, uncontrolled vomiting, worsening symptoms or other concerns. Is patient prescribed a controlled substance at d/c from ED?: No Referrals: Isac Calvin MD [Primary Care Provider] - 1-2 days Zoya Clark MD [STAFF PHYSICIAN] - 1-2 days Time of Disposition: 08:33
[2023-02-07 07:53] LABS: Basophils % (A) 1 %; Eosinophils # (A) 0.3 k/uL (0-0.7); Eosinophils % (A) 5 %; HCT 38.8 % (34.0-46.0); HGB 12.1 gm/dL (11.4-16.0); Lymphocytes # (A) 2.2 k/uL (1.0-4.8); Lymphocytes % (A) 34 %; MCH 26.8 pg (25.0-35.0); MCHC 31.1 g/dL (31.0-37.0); MCV 86.2 fL (80.0-100.0); Mean Platelet Volume 7.7; Monocytes # (A) 0.4 k/uL (0-1.0); Monocytes % (A) 6 %; Neutrophils # (A) 3.5 k/uL (1.3-7.7); Neutrophils % (A) 53 %; Platelet Count 285 k/uL (150-450); RDW 15.8 % (11.5-15.5); WBC 6.6 k/uL (3.8-10.6)
[2023-02-07 08:07] LABS: ALT 23 U/L (4-34); AST 22 U/L (14-36); African American GFR (CKD) >90 (>60 ml/min/1.73 sqM); Albumin 3.8 g/dL (3.5-5.0); Alkaline Phosphatase 127 U/L (38-126); Amylase 45 U/L (30-110); Anion Gap 9 mmol/L; Blood Urea Nitrogen 20 mg/dL (7-17); Calcium 8.7 mg/dL (8.4-10.2); Carbon Dioxide 24 mmol/L (22-30); Chloride 106 mmol/L (98-107); Glucose 84 mg/dL (74-99); Lipase 30 U/L (23-300); Non-African American GFR(CKD) >90 (>60 ml/min/1.73 sqM); Potassium 4.1 mmol/L (3.5-5.1); Sodium 139 mmol/L (137-145); Total Bilirubin 0.2 mg/dL (0.2-1.3); Total Protein 6.7 g/dL (6.3-8.2)
--- NOTE | 2023-02-07 08:07 | XR ---
EXAMINATION TYPE: XR KUB DATE OF EXAM: 02/07/2023 COMPARISON: CT abdomen and pelvis 02/01/2023, KUB radiograph 06/19/2022 HISTORY: Abdominal pain TECHNIQUE: Upright KUB view of the abdomen is obtained with 2 radiographs. FINDINGS: Nonobstructive bowel gas pattern. Gas and fecal material is seen in non-distended colon. No convincing evidence for pneumoperitoneum. Cholecystectomy clips in the right upper quadrant. Stable calcification within the right pelvis possibly representing a dropped gallstone or peritoneal mice when reviewing CT. Faint calcifications within the epigastric region corresponding to pancreatic parenchymal calcifications of chronic pancreatitis. The lung bases are clear. Multilevel vertebral augmentation with bilateral pedicle screws and rods involving the thoracolumbar spine and SI joints. Partial position of right femoral intramedullary alice. IMPRESSION: Chronic changes with nonobstructive bowel gas pattern.
[2023-02-07 08:14] LABS: INR 0.9 (<1.2); Prothrombin Time 9.8 sec (9.0-12.0)
[2023-02-07 08:17] LABS: Partial Thromboplastin Time 21.3 sec (22.0-30.0)
[2023-02-07] MEDS ORDERED: DICYCLOMINE 10 MG/ML 2 ML AMP IM STA (08:33)
[2023-02-07 09:09] VITALS: BP 136/80; PULSE 62; RESP 16; TEMP 97.9
== END 2023-02-07 09:37 | disposition home or self-care (01) ==
LOC: EC 07:11
DX: R10.9 Unspecified abdominal pain (principal); I10 Essential (primary) hypertension; J44.9 Chronic obstructive pulmonary disease, unspecified; M19.90 Unspecified osteoarthritis, unspecified site; F17.200 Nicotine dependence, unspecified, uncomplicated; Z79.899 Other long term (current) drug therapy
CPT/HCPCS: 36415; 80053; 82150; 83690; 85025; 85610; 85730; 74018; 99284; 96374; 96375 ×2; 96361; J2405; J1170

== ENCOUNTER 2023-04-12 11:50 | Emergency (ER) | payer BC ==
[2023-04-12 11:56] VITALS: TEMP 98.5
[2023-04-12] MEDS ORDERED: ONDANSETRON 4 MG/2 ML VIAL IVP STA (12:37)
[2023-04-12] MEDS ORDERED: DICYCLOMINE 10 MG/ML 2 ML AMP IM STA (12:37)
[2023-04-12] MEDS ORDERED: FAMOTIDINE 20 MG/2 ML VIAL IV STA (12:37)
--- NOTE | 2023-04-12 12:39 | ED ---
General Adult HPI - General Chief complaint: Abdominal Pain Stated complaint: Abd Pain,N/V Time Seen by Provider: 04/12/23 11:55 Source: patient, EMS, RN notes reviewed Mode of arrival: EMS Limitations: no limitations - History of Present Illness Initial comments: Patient is a pleasant 67-year-old female presenting to the emergency department with concerns for abdominal discomfort. Patient admits to having chronic abdominal discomfort. Patient states she does get this several times per week for years on him. Patient has some associated nausea vomiting diarrhea. No fever. Discomfort is upper abdomen. - Related Data Home Medications Medication Instructions Recorded Confirmed Albuterol Inhaler [Ventolin Hfa 2 puff INHALATION RT-Q6H PRN 09/01/22 04/12/23 Inhaler] Butalbit/Acetamin/Caff/Codeine 1 cap PO Q6HR PRN 01/08/23 04/12/23 [Fioricet-Cod 59-346-09-30 Cap] Gabapentin 600 mg PO TID 01/08/23 04/12/23 Morphine Sulfate ER [Ms Contin] 15 mg PO BID 01/08/23 04/12/23 HYDROcodone/APAP 7.5-325MG [[place] 1 tab PO TID 04/12/23 04/12/23 7.5-325] Omeprazole 20 mg PO DAILY 04/12/23 04/12/23 Previous Rx's Medication Instructions Recorded Metoclopramide [Reglan] 10 mg PO Q6H PRN #20 tab 01/08/23 Allergies Allergy/AdvReac Type Severity Reaction Status Date / Time No Known Allergies Allergy Verified 04/12/23 14:10 Review of Systems ROS Statement: Those systems with pertinent positive or pertinent negative responses have been documented in the HPI. ROS Other: All systems not noted in ROS Statement are negative. Constitutional: Denies: fever Eyes: Denies: eye pain ENT: Denies: ear pain Respiratory: Denies: cough Cardiovascular: Denies: chest pain Endocrine: Denies: fatigue Gastrointestinal: Reports: as per HPI, abdominal pain, nausea, vomiting, diarrhea Genitourinary: Denies: dysuria Musculoskeletal: Denies: back pain Skin: Denies: rash Past Medical History Past Medical History: COPD, CVA/TIA, GERD/Reflux, Hypertension, Osteoarthritis (OA) Additional Past Medical History / Comment(s): migraines, stroke Sep 2019-left side weakness, hiatal hernia, diarrhea, no longer needing BP med, chronic pancreatitis, hx anemia, weight loss recently, unsure why-HAS GAINED 10 LBS History of Any Multi-Drug Resistant Organisms: None Reported Past Surgical History: Appendectomy, Back Surgery, Bowel Resection, Cholecystectomy, Hernia Repair, Orthopedic Surgery, Tonsillectomy Additional Past Surgical History / Comment(s): Umbilical hernia repair (10/20/21), Pancreatic stents-since removed, 6 back surgeries with 2 fusions, right fallopian tube due to ectopic , EGD/colonoscopy, ORIF right femur alice inserted d/t fracture, BACK SURGERY-REMOVED OLD HARDWARE AND PUT IN NEW HARDWARE 09/28/20, bowel rupture surgery, right carotid endarterectomy Past Anesthesia/Blood Transfusion Reactions: No Reported Reaction Additional Past Anesthesia/Blood Transfusion Reaction / Comment(s): DIFF IV STARTS. Pt has received blood in past without reaction. Past Psychological History: No Psychological Hx Reported Smoking Status: Current every day smoker Past Alcohol Use History: None Reported Past Drug Use History: None Reported - Past Family History Father Family Medical History: Cancer Mother Family Medical History: Cancer, CVA/TIA Additional Family Medical History / Comment(s): Breast and colon cancer. General Exam Limitations: no limitations General appearance: alert, in no apparent distress Head exam: Present: normocephalic Eye exam: Present: normal appearance ENT exam: Present: normal oropharynx Neck exam: Present: normal inspection Respiratory exam: Present: normal lung sounds bilaterally Cardiovascular Exam: Present: regular rate, normal rhythm Expanded Peripheral pulses: 2+: Radial (R), Radial (L), Dorsalis Pedis (R), Dorsalis Pedis (L) GI/Abdominal exam: Present: soft, tenderness (Mild epigastric tenderness). Absent: pulsatile mass Extremities exam: Present: normal inspection. Absent: pedal edema, calf tenderness Neurological exam: Present: alert Psychiatric exam: Present: normal affect, normal mood Skin exam: Present: normal color Course Vital Signs 04/12/23 04/12/23 11:52 13:00 Temperature 98.5 F Pulse Rate 60 Respiratory 20 Rate Blood Pressure 164/93 170/89 O2 Sat by Pulse 97 Oximetry Medical Decision Making - Medical Decision Making Was pt. sent in by a medical professional or institution (, PA, ELECTROGALVANIZING MACHINE OPERATOR, urgent care, hospital, or senior care...) When possible be specific @ -[No] Did you speak to anyone other than the patient for history (EMS, parent, family, police, friend...)? What history was obtained from this source @ -[No] Did you review nursing and triage notes (agree or disagree)? Why? @ -[I reviewed and agree with nursing and triage notes] Were old charts reviewed (outside hosp., previous admission, EMS record, old EK G, old radiological studies, urgent care reports/EKG's, senior care records)? Report findings @ -Previous charts reviewed including previous CT scans dated February 01 and March 17 with both showing evidence of pneumobilia Differential Diagnosis (chest pain, altered mental status, abdominal pain women, abdominal pain men, vaginal bleeding, weakness, fever, dyspnea, syncope, headache, dizziness, GI bleed, back pain, seizure, CVA, palpatations, mental health, musculoskeletal)? @ -Differential Abdominal Pain Women: Appendicitis, Cholecystitis, diverticulosis, ischemic bowel, pancreatitis, hepatitis, UTI, gastroenteritis, AAA, incarcerated hernia, bowel obstruction, constipation, inflammatory bowel, hepatitis, peptic ulcer disease, splenic infarction, perforated viscus, vulvitis, ovarian torsion, PID, kidney stone, placenta abruption, this is not meant to be an all-inclusive list EKG interpreted by me (3pts min.). @ -[As above] X-rays interpreted by me (1pt min.). @ -Abdominal x-ray shows questionable pneumobilia CT interpreted by me (1pt min.). @ -[None done] U/S interpreted by me (1pt. min.). @ -[None done] What testing was considered but not performed or refused? (CT, X-rays, U/S, labs)? Why? @ -Consider computed tomography scan of the abdomen however patient states this is chronic and no worse from different. Previous charts reviewed. What meds were considered but not given or refused? Why? @ -Bentyl was ordered however patient refuses. Patient states she's had this dozens of times and it does not work for her. Patient requests Dilaudid. Patient also adds that Toradol does not work for her either Did you discuss the management of the patient with other professionals (professionals i.e. , PA, ELECTROGALVANIZING MACHINE OPERATOR, lab, RT, psych nurse, high school social studies teacher, lock plater, teacher, chief media officer, bilingual case manager)? Give summary @ -[No] Was smoking cessation discussed for >3mins.? @ -[No] Was critical care preformed (if so, how long)? @ -[No] Were there social determinants of health that impacted care today? How? (Homelessness, low income, unemployed, alcoholism, drug addiction, transportation, low edu. Level, literacy, decrease access to med. care, penitentiary, rehab)? @ -[No] Was there de-escalation of care discussed even if they declined (Discuss DNR or withdrawal of care, Hospice)? DNR status @ -[No] What co-morbidities impacted this encounter? (DM, HTN, Smoking, COPD, CAD, Cancer, CVA, ARF, Chemo, Hep., AIDS, mental health diagnosis, sleep apnea, morbid obesity)? @ -[None] Was patient admitted / discharged? Hospital course, mention meds given and route , prescriptions, significant lab abnormalities, going to OR and other pertinent info. @ -Patient reevaluated and resting comfortably in bed. Results reviewed. Patient updated on results. Patient requests Dilaudid is this is the only thing she believes work for her. Patient states she would be comfortable to be discharged following this. No longer having nausea. Undiagnosed new problem with uncertain prognosis? @ -[No] Drug Therapy requiring intensive monitoring for toxicity (Heparin, Nitro, Insulin, Cardizem)? @ -[No] Were any procedures done? @ -[No] Diagnosis/symptom? @ -Abdominal pain Acute, or Chronic, or Acute on Chronic? @ -Acute on chronic Uncomplicated (without systemic symptoms) or Complicated (systemic symptoms)? @ -[default] Side effects of treatment? @ -[No] Exacerbation, Progression, or Severe Exacerbation? @ -[No] Poses a threat to life or bodily function? How? (Chest pain, USA, VT, pneumonia, PE, COPD, DKA, ARF, appy, cholecystitis, CVA, Diverticulitis, Homicidal, Suicidal, threat to staff... and all critical care pts) @ -[No] - Lab Data Result diagrams: 04/12/23 12:53 04/12/23 12:53 Lab Results 08/10/23 08/10/23 08/10/23 Range/Units 12:53 12:53 12:53 WBC 5.3 (3.8-10.6) k/uL RBC 4.44 (3.80-5.40) m/uL Hgb 13.1 (11.4-16.0) gm/dL Hct 39.3 (34.0-46.0) % MCV 88.6 (80.0-100.0) fL MCH 29.4 (25.0-35.0) pg MCHC 33.2 (31.0-37.0) g/dL RDW 16.4 H (11.5-15.5) % Plt Count 257 (150-450) k/uL MPV 8.4 Neutrophils % 49 % Lymphocytes % 40 % Monocytes % 7 % Eosinophils % 2 % Basophils % 0 % Neutrophils # 2.6 (1.3-7.7) k/uL Lymphocytes # 2.1 (1.0-4.8) k/uL Monocytes # 0.4 (0-1.0) k/uL Eosinophils # 0.1 (0-0.7) k/uL Basophils # 0.0 (0-0.2) k/uL Anisocytosis Slight PT 11.4 (9.0-12.0) sec INR 1.1 (<1.2) APTT 21.8 L (22.0-30.0) sec Sodium 141 (137-145) mmol/L Potassium 3.7 (3.5-5.1) mmol/L Chloride 104 (98-107) mmol/L Carbon Dioxide 26 (22-30) mmol/L Anion Gap 11 mmol/L BUN 13 (7-17) mg/dL Creatinine 0.72 (0.52-1.04) mg/dL Est GFR (CKD-EPI)AfAm >90 (>60 ml/min/1.73 sqM) Est GFR (CKD-EPI)NonAf 88 (>60 ml/min/1.73 sqM) Glucose 152 H (74-99) mg/dL Calcium 8.3 L (8.4-10.2) mg/dL Total Bilirubin 0.5 (0.2-1.3) mg/dL AST 41 H (14-36) U/L ALT 30 (4-34) U/L Alkaline Phosphatase 144 H (38-126) U/L Total Protein 6.6 (6.3-8.2) g/dL Albumin 3.7 (3.5-5.0) g/dL Amylase 35 (30-110) U/L Lipase 15 L (23-300) U/L Disposition Clinical Impression: Abdominal pain Disposition: HOME SELF-CARE Condition: Stable Instructions (If sedation given, give patient instructions): Abdominal Pain (ED) Additional Instructions: Please do follow-up with your primary care physician in the next day or 2 for recheck. Return for fever, increased pain, vomiting, worsening or changing symptoms or other concerns. Is patient prescribed a controlled substance at d/c from ED?: No Referrals: Isac Calvin MD [Primary Care Provider] - 1-2 days Time of Disposition: 14:20
[2023-04-12 13:13] LABS: Anisocytosis Slight; Basophils % (A) 0 %; Eosinophils # (A) 0.1 k/uL (0-0.7); Eosinophils % (A) 2 %; HCT 39.3 % (34.0-46.0); HGB 13.1 gm/dL (11.4-16.0); Lymphocytes # (A) 2.1 k/uL (1.0-4.8); Lymphocytes % (A) 40 %; MCH 29.4 pg (25.0-35.0); MCHC 33.2 g/dL (31.0-37.0); MCV 88.6 fL (80.0-100.0); Mean Platelet Volume 8.4; Monocytes # (A) 0.4 k/uL (0-1.0); Monocytes % (A) 7 %; Neutrophils # (A) 2.6 k/uL (1.3-7.7); Neutrophils % (A) 49 %; Platelet Count 257 k/uL (150-450); RBC 4.44 m/uL (3.80-5.40); RDW 16.4 % (11.5-15.5); WBC 5.3 k/uL (3.8-10.6)
[2023-04-12 13:18] LABS: ALT 30 U/L (4-34); AST 41 U/L (14-36); African American GFR (CKD) >90 (>60 ml/min/1.73 sqM); Albumin 3.7 g/dL (3.5-5.0); Alkaline Phosphatase 144 U/L (38-126); Amylase 35 U/L (30-110); Anion Gap 11 mmol/L; Blood Urea Nitrogen 13 mg/dL (7-17); Calcium 8.3 mg/dL (8.4-10.2); Carbon Dioxide 26 mmol/L (22-30); Chloride 104 mmol/L (98-107); Glucose 152 mg/dL (74-99); Lipase 15 U/L (23-300); Non-African American GFR(CKD) 88 (>60 ml/min/1.73 sqM); Potassium 3.7 mmol/L (3.5-5.1); Sodium 141 mmol/L (137-145); Total Bilirubin 0.5 mg/dL (0.2-1.3); Total Protein 6.6 g/dL (6.3-8.2)
[2023-04-12 13:20] LABS: INR 1.1 (<1.2); Prothrombin Time 11.4 sec (9.0-12.0)
[2023-04-12 13:22] LABS: Partial Thromboplastin Time 21.8 sec (22.0-30.0)
--- NOTE | 2023-04-12 13:58 | XR ---
EXAMINATION TYPE: XR KUB DATE OF EXAM: 04/12/2023 COMPARISON: 02/07/2023 HISTORY: Abdomen pain TECHNIQUE: Abdomen is examined in the upright view and compared to 02/07/2023. FINDINGS: There is branching low density air within what appears to be the biliary system of the live r. This could be further evaluated with CT Fixation pedicle screws and rods are through the thoracolumbar spine extending to the sacrum. Vertebr oplasty has been performed. Nonspecific bowel gas is present. There is an air-fluid level within the left midabdomen. Differentia l air-fluid levels are not identified. No free air is evident. IMPRESSION: 1. Some biliary air appears to be present. This could be further evaluated with ultrasound. 2. Nonspecific bowel gas pattern
[2023-04-12] MEDS ORDERED: HYDROmorphone 0.5 MG/0.5 ML SYRINGE IVP STA (14:16)
[2023-04-12 14:35] VITALS: BP 178/84; PULSE 61; RESP 18
== END 2023-04-12 14:45 | disposition home or self-care (01) ==
LOC: EC 11:50
DX: R10.13 Epigastric pain (principal); J44.9 Chronic obstructive pulmonary disease, unspecified; I10 Essential (primary) hypertension; K21.9 Gastro-esophageal reflux disease without esophagitis; M19.90 Unspecified osteoarthritis, unspecified site; Z86.73 Personal history of transient ischemic attack (TIA), and cerebral infarction without residual deficits; F17.200 Nicotine dependence, unspecified, uncomplicated; Z90.49 Acquired absence of other specified parts of digestive tract; Z79.899 Other long term (current) drug therapy
CPT/HCPCS: 36415; 80053; 82150; 83690; 85025; 85610; 85730; 74018; 99285; 96374; 96375 ×2; J2405; J1170

== ENCOUNTER 2023-04-17 13:05 | Emergency (ER) | payer BC ==
[2023-04-17 13:16] VITALS: TEMP 98.7
--- NOTE | 2023-04-17 13:16 | ED ---
Abdominal Pain HPI - General Source: patient, RN notes reviewed <Shameka Llanos - Last Filed: 04/17/23 13:14> <Mazin Cruz - Last Filed: 04/17/23 21:13> - General Chief Complaint: Abdominal Pain Stated Complaint: ABD Pain Time Seen by Provider: 04/17/23 13:14 - History of Present Illness Initial Comments: Patient is a 67 year old female presenting for abdominal pain worse than her chronic abdominal pain 04/12. She reports of vomiting and diarrhea today. She denies any chest pain, shortness of breath, fevers or chills. (Shameka Llanos) This is a 67-year-old female who is well-known to the emergency department presented to the [facility] department for lower abdominal pain. The patient on presentation stated "that this is not like my previous pancreatitis and it seems different." The patient stated she had diarrhea over last several days and had pain across her lower abdomen. The patient reported past medical history inc luding previous "bowel perforation" she obtained surgery many years ago. The patient stated that she feels as if her bowels are blocked once again. The patient reported associated nausea and vomiting. The patient denied any other acute pain or complaints at this time. The patient also denied any fevers and chills. (Mazin Cruz) - Related Data Home Medications Medication Instructions Recorded Confirmed Albuterol Inhaler [Ventolin Hfa 2 puff INHALATION RT-Q6H PRN 09/01/22 04/17/23 Inhaler] Butalbit/Acetamin/Caff/Codeine 1 cap PO Q6HR PRN 01/08/23 04/17/23 [Fioricet-Cod [id number] Cap] Gabapentin 600 mg PO TID 01/08/23 04/17/23 Morphine Sulfate ER [Ms Contin] 15 mg PO BID 01/08/23 04/17/23 HYDROcodone/APAP 7.5-325MG [[place] 1 tab PO TID 04/12/23 04/17/23 7.5-325] Omeprazole 20 mg PO DAILY 04/12/23 04/17/23 Previous Rx's Medication Instructions Recorded Metoclopramide [Reglan] 10 mg PO Q6H PRN #20 tab 01/08/23 Allergies Allergy/AdvReac Type Severity Reaction Status Date / Time No Known Allergies Allergy Verified 04/17/23 17:10 Review of Systems ROS Other: All systems not noted in ROS Statement are negative. <Shameka Llanos - Last Filed: 04/17/23 13:14> ROS Other: All systems not noted in ROS Statement are negative. <Mazin Cruz - Last Filed: 04/17/23 21:13> ROS Statement: Those systems with pertinent positive or pertinent negative responses have been documented in the HPI. Past Medical History Past Medical History: COPD, CVA/TIA, GERD/Reflux, Hypertension, Osteoarthritis (OA) Additional Past Medical History / Comment(s): migraines, stroke Sep 2019-left side weakness, hiatal hernia, diarrhea, no longer needing BP med, chronic pancreatitis, hx anemia, weight loss recently, unsure why-HAS GAINED 10 LBS History of Any Multi-Drug Resistant Organisms: None Reported Past Surgical History: Appendectomy, Back Surgery, Bowel Resection, Cholecystectomy, Hernia Repair, Orthopedic Surgery, Tonsillectomy Additional Past Surgical History / Comment(s): Umbilical hernia repair (10/20/21), Pancreatic stents-since removed, 6 back surgeries with 2 fusions, rig ht fallopian tube due to ectopic , EGD/colonoscopy, ORIF right femur alice inserted d/t fracture, BACK SURGERY-REMOVED OLD HARDWARE AND PUT IN NEW HARDWARE 09/28/20, bowel rupture surgery, right carotid endarterectomy Past Anesthesia/Blood Transfusion Reactions: No Reported Reaction Additional Past Anesthesia/Blood Transfusion Reaction / Comment(s): DIFF IV STARTS. Pt has received blood in past without reaction. Past Psychological History: No Psychological Hx Reported Smoking Status: Current every day smoker Past Alcohol Use History: None Reported Past Drug Use History: None Reported - Past Family History Father Family Medical History: Cancer Mother Family Medical History: Cancer, CVA/TIA Additional Family Medical History / Comment(s): Breast and colon cancer. <Shameka Llanos - Last Filed: 04/17/23 13:14> General Exam Limitations: no limitations General appearance: alert, in no apparent distress Head exam: Present: atraumatic, normocephalic, normal inspection Eye exam: Present: normal appearance, PERRL Pupils: Present: normal accommodation ENT exam: Present: normal exam, normal oropharynx, mucous membranes moist Neck exam: Present: normal inspection, full ROM Respiratory exam: Present: normal lung sounds bilaterally Cardiovascular Exam: Present: regular rate, normal rhythm, normal heart sounds GI/Abdominal exam: Present: soft, tenderness (TTP in the B/L lower quadrants), normal bowel sounds Extremities exam: Present: normal inspection, full ROM Back exam: Present: normal inspection, full ROM Neurological exam: Present: alert, oriented X3, CN II-XII intact Psychiatric exam: Present: normal affect, normal mood Skin exam: Present: warm, dry <Mazin Cruz - Last Filed: 04/17/23 21:13> Course Vital Signs 04/17/23 04/17/23 13:14 19:38 Temperature 98.7 F Pulse Rate 71 64 Respiratory 20 18 Rate Blood Pressure 140/72 151/78 O2 Sat by Pulse 97 100 Oximetry Medical Decision Making - Lab Data Result diagrams: 04/17/23 17:19 04/17/23 17:19 <Mazin Cruz - Last Filed: 04/17/23 21:13> - Medical Decision Making Was pt. sent in by a medical professional or institution (Dr. PA, FLOOR COVERING INSTALLER, urgent care, hospital, or skilled nursing...) When possible be specific @ -No Did you speak to anyone other than the patient for history (EMS, parent, family, police, friend...)? What history was obtained from this source @ -No Did you review nursing and triage notes (agree or disagree)? Why? @ -I reviewed and agree with nursing and triage notes Were old charts reviewed (outside hosp., previous admission, EMS record, old EKG, old radiological studies, urgent care reports/EKG's, skilled nursing records)? Report findings @ -No old charts were reviewed Differential Diagnosis (chest pain, altered mental status, abdominal pain women, abdominal pain men, vaginal bleeding, weakness, fever, dyspnea, syncope, headache, dizziness, GI bleed, back pain, seizure, CVA, palpatations, mental health)? @ -Bowel obstruction, diverticulitis, appendicitis EKG interpreted by me (3pts min.). @ -As above X-rays interpreted by me (1pt min.). @ -None done CT interpreted by me (1pt min.). @ -CT abdomen and pelvis with contrast was obtained and was interpreted by myself showing an increase in immobility with extensive debris within the common bile duct. The os he recommended correlation with serum markers worsening infection. There was post surgical changes in the upper GI tract with persistent dilation of loops of jejunum as seen previously. There was no evidence for obstruction. There was suspected postsurgical changes of the GE junction and to consider esophagitis. There is chronic pancreatitis changes with undulating dilated pain clinic duct. There was no evidence for acute hepatitis. There was a nonobstructing right 2 mm focus. There is also colonic diverticulosis. U/S interpreted by me (1pt. min.). @ -None done What testing was considered but not performed or refused? (CT, X-rays, U/S, labs)? Why? @ -None What meds were considered but not given or refused? Why? @ -None Did you discuss the management of the patient with other professionals (professionals i.e. , PA, FLOOR COVERING INSTALLER, lab, RT, psych nurse, social media marketing specialist, cattle knocker, teacher, property officer, patient case manager)? Give summary @ -No Was smoking cessation discussed for >3mins.? @ -No Was critical care preformed (if so, how long)? @ -No Were there social determinants of health that impacted care today? How? (Homelessness, low income, unemployed, alcoholism, drug addiction, transportation, low edu. Level, literacy, decrease access to med. care, [facility], rehab)? @ -No Was there de-escalation of care discussed even if they declined (Discuss DNR or withdrawal of care, Hospice)? DNR status @ -No What co-morbidities impacted this encounter? (DM, HTN, Smoking, COPD, CAD, Cancer, CVA, ARF, Chemo, Hep., AIDS, mental health diagnosis, sleep apnea, morbid obesity)? @ -Significant comorbid conditions including hypertension, COPD, chronic pancreatitis, previous CVA Was patient admitted / discharged? Hospital course, mention meds given and route, prescriptions, significant lab abnormalities, going to OR and other pertinent info. @ -The patient was seen and evaluated in the emergency department. Physical exam, the patient was resting in bed without any acute distress. Vital signs admission were stable. Laboratory workup and imaging was obtained and is above. Laboratory workup was largely within normal limits. The patient was given Zofran and morphine for pain as well as 1 L normal saline fluid. On reevaluation, the patient had significant improvement of her pain and was on the side of the bed resting comfortably requesting food. The patient stated that her findings on computed tomography scan were likely chronic and she was made aware of the worsening immobility a however laboratory workup was within normal limits and there was no signs of worsening infection. The patient was agreeable to being discharged home as she likely had chronic abdominal pain however as soon as she was about to be discharged, the patient stated "I throughout my last [place] and [place] police write me a starter pack for [place]." The patient was told that she needed to follow-up with her primary care physician for further prescriptions and she was agreeable. The patient was discharged home in stable condition. Undiagnosed new problem with uncertain prognosis? @ -No Drug Therapy requiring intensive monitoring for toxicity (Heparin, Nitro, Insulin, Cardizem)? @ -No Were any procedures done? @ -No Diagnosis/symptom? @ -Abdominal pain, NOS likely chronic Acute, or Chronic, or Acute on Chronic? @ -Acute on chronic Uncomplicated (without systemic symptoms) or Complicated (systemic symptoms)? @ -Uncomplicated Side effects of treatment? @ -No Exacerbation, Progression, or Severe Exacerbation? @ -No Poses a threat to life or bodily function? How? (Chest pain, [place], [place], pneumonia, PE, COPD, DKA, ARF, appy, cholecystitis, CVA, Diverticulitis, Homicidal, Suicidal, threat to staff... and all critical care pts) @ -No (Mazin Cruz) - Lab Data Lab Results 04/17/23 04/17/23 04/17/23 Range/Units 17:19 17:19 17:19 WBC 6.5 (3.8-10.6) k/uL RBC 4.23 (3.80-5.40) m/uL Hgb 12.4 (11.4-16.0) gm/dL Hct 37.7 (34.0-46.0) % MCV 89.1 (80.0-100.0) fL MCH 29.4 (25.0-35.0) pg MCHC 33.0 (31.0-37.0) g/dL RDW 16.5 H (11.5-15.5) % Plt Count 217 (150-450) k/uL MPV 7.9 Neutrophils % 55 % Lymphocytes % 34 % Monocytes % 6 % Eosinophils % 3 % Basophils % 1 % Neutrophils # 3.5 (1.3-7.7) k/uL Lymphocytes # 2.2 (1.0-4.8) k/uL Monocytes # 0.4 (0-1.0) k/uL Eosinophils # 0.2 (0-0.7) k/uL Basophils # 0.1 (0-0.2) k/uL Anisocytosis Slight Sodium 141 (137-145) mmol/L Potassium 3.6 (3.5-5.1) mmol/L Chloride 111 H (98-107) mmol/L Carbon Dioxide 24 (22-30) mmol/L Anion Gap 6 mmol/L BUN 19 H (7-17) mg/dL Creatinine 0.67 (0.52-1.04) mg/dL Est GFR (CKD-EPI)AfAm >90 (>60 ml/min/1.73 sqM) Est GFR (CKD-EPI)NonAf >90 (>60 ml/min/1.73 sqM) Glucose 104 H (74-99) mg/dL Plasma Lactic Acid Derek 0.7 (0.7-2.0) mmol/L Calcium 8.0 L (8.4-10.2) mg/dL Total Bilirubin 0.2 (0.2-1.3) mg/dL AST 41 H (14-36) U/L ALT 35 H (4-34) U/L Alkaline Phosphatase 147 H (38-126) U/L Total Protein 6.0 L (6.3-8.2) g/dL Albumin 3.2 L (3.5-5.0) g/dL Amylase 42 (30-110) U/L Lipase 22 L (23-300) U/L Disposition <Shameka Llanos - Last Filed: 04/17/23 13:14> Is patient prescribed a controlled substance at d/c from ED?: No Time of Disposition: 19:00 <Mazin Cruz - Last Filed: 04/17/23 21:13> Clinical Impression: Abdominal pain Disposition: HOME SELF-CARE Condition: Stable Instructions (If sedation given, give patient instructions): Abdominal Pain (ED) Referrals: Isac Calvin MD [Primary Care Provider] - 1-2 days
[2023-04-17] MEDS ORDERED: SODIUM CHLORIDE 0.9% 1,000 ML IV ONE (16:21)
[2023-04-17] MEDS ORDERED: ONDANSETRON 4 MG/2 ML VIAL IVP STA (16:21)
[2023-04-17] MEDS ORDERED: MORPHINE SULFATE 4 MG/ML SYRINGE IVP STA (16:21)
[2023-04-17 17:27] LABS: Anisocytosis Slight; Basophils # (A) 0.1 k/uL (0-0.2); Basophils % (A) 1 %; Eosinophils # (A) 0.2 k/uL (0-0.7); Eosinophils % (A) 3 %; HCT 37.7 % (34.0-46.0); HGB 12.4 gm/dL (11.4-16.0); Lymphocytes # (A) 2.2 k/uL (1.0-4.8); Lymphocytes % (A) 34 %; MCH 29.4 pg (25.0-35.0); MCV 89.1 fL (80.0-100.0); Mean Platelet Volume 7.9; Monocytes # (A) 0.4 k/uL (0-1.0); Monocytes % (A) 6 %; Neutrophils # (A) 3.5 k/uL (1.3-7.7); Neutrophils % (A) 55 %; Platelet Count 217 k/uL (150-450); RBC 4.23 m/uL (3.80-5.40); RDW 16.5 % (11.5-15.5); WBC 6.5 k/uL (3.8-10.6)
[2023-04-17 17:40] LABS: ALT 35 U/L (4-34); AST 41 U/L (14-36); African American GFR (CKD) >90 (>60 ml/min/1.73 sqM); Albumin 3.2 g/dL (3.5-5.0); Alkaline Phosphatase 147 U/L (38-126); Amylase 42 U/L (30-110); Anion Gap 6 mmol/L; Blood Urea Nitrogen 19 mg/dL (7-17); Carbon Dioxide 24 mmol/L (22-30); Chloride 111 mmol/L (98-107); Glucose 104 mg/dL (74-99); Lipase 22 U/L (23-300); Non-African American GFR(CKD) >90 (>60 ml/min/1.73 sqM); Potassium 3.6 mmol/L (3.5-5.1); Sodium 141 mmol/L (137-145); Total Bilirubin 0.2 mg/dL (0.2-1.3)
--- NOTE | 2023-04-17 18:23 | CT ---
EXAMINATION TYPE: CT abdomen pelvis w con CT DLP: 716.4 mGycm, Automated exposure control for dose reduction was used. DATE OF EXAM: 04/17/2023 6:07 PM COMPARISON: CT abdomen pelvis most recent from 02/01/2023 CLINICAL INDICATION:Female, 67 years old with history of Acute abdominal pain; abdominal pain, nausea , vomiting TECHNIQUE: Axial CT of the abdomen and pelvis. Sagittal and coronal reformats were created on a [employer] workstation. Contrast used:80cc mL of Isovue 300 with IV Contrast, (none if empty) Oral contrast used: without Oral Contrast (none if empty) FINDINGS: LOWER CHEST: Unremarkable ABDOMEN LIVER: Unremarkable GALLBLADDER AND BILE DUCTS: Increase in pneumobilia with layering debris suggested in the common bile duct. PANCREAS: Scattered pancreatic calcifications. The dilation of the pancreatic duct is similar to prio r with somewhat undulating appearance. SPLEEN: Unremarkable. ADRENAL GLANDS: Unremarkable. KIDNEYS AND URETERS: No evidence of hydronephrosis nonobstructing 2 mm right renal calculi. No obstru cting left renal calculi. Right renal cyst. PELVIS BLADDER: Unremarkable REPRODUCTIVE: Unremarkable. ABDOMEN & PELVIS STOMACH AND BOWEL: No evidence of bowel obstruction. Suspected postsurgical changes to gastroesophage al junction. Prominent loops of jejunum measuring up to 5.4 centimeters which is not significantly ch anged given differences in technique. Scattered colonic diverticula. PERITONEUM/RETROPERITONEUM: No evidence of pneumoperitoneum or free fluid. VASCULATURE: Moderate atherosclerotic calcifications are present throughout the abdominal aorta and i ts branches. No evidence of aortic aneurysm. MUSCULOSKELETAL: Multilevel degeneration changes throughout the spine. There is fixation hardware thr oughout the spine which appears intact. Multilevel vertebroplasty changes. Partially visualized intra medullary alice within the right femur. LYMPH NODES: No gross evidence for lymphadenopathy. SOFT TISSUE/ABDOMINAL WALL: Unremarkable IMPRESSION: 1. Increase in pneumobilia with extensive debris within the common bile duct . Correlate with serum markers worsening infection. 2. Postsurgical changes to the upper gastrointestinal tract with persistent dilation of loops of jej unum as seen on prior. No evidence for obstruction. 3. Suspected postsurgical change of the gastroesophageal junction consider further evaluation for es ophagitis. 4. Chronic pancreatitis changes with undulating dilated pancreatic duct. No definitive evidence for acute hepatitis. 5. Nonobstructing right 2 mm focus. 6. Postsurgical changes to the spine with hardware intact. 7. Colonic diverticulosis.
[2023-04-17] MEDS ORDERED: HYDROcodone/APAP 5-325MG 1 EACH TAB PO STA (19:28)
[2023-04-17 19:40] VITALS: BP 151/78; PULSE 64; RESP 18
== END 2023-04-17 19:40 | disposition home or self-care (01) ==
LOC: EC 13:05
DX: K57.30 Diverticulosis of large intestine without perforation or abscess without bleeding (principal); J44.9 Chronic obstructive pulmonary disease, unspecified; K21.9 Gastro-esophageal reflux disease without esophagitis; I10 Essential (primary) hypertension; M19.90 Unspecified osteoarthritis, unspecified site; F17.200 Nicotine dependence, unspecified, uncomplicated; Z79.899 Other long term (current) drug therapy; Z79.1 Long term (current) use of non-steroidal anti-inflammatories (NSAID)
CPT/HCPCS: 36415; 80053; 82150; 83605; 83690; 85025; 87040; 74177; 99285; 96374; 96375; 96361 ×2; J2270; J2405; Q9967

== ENCOUNTER 2023-11-01 12:23 | Inpatient (IN) | payer BC ==
--- NOTE | 2023-11-01 12:54 | ED ---
Abdominal Pain HPI - General Source: patient, RN notes reviewed Mode of arrival: EMS <Eleni Easley - Last Filed: 11/01/23 12:53> - History of Present Illness MD Complaint: abdominal pain -: days(s) Location: diffuse Radiation: back Severity: severe Quality: cramping, aching Consistency: constant Improves With: nothing Worsens With: nothing Associated Symptoms: nausea, vomiting <Cal Enciso - Last Filed: 11/07/23 10:01> - General Chief Complaint: Abdominal Pain Stated Complaint: Adominal Pain Time Seen by Provider: 11/01/23 12:54 - History of Present Illness Initial Comments: Quick note: Patient is a 68-year-old female presented to ER with chief complaint of abdominal pain. Patient states that started 2 days ago and also endorses nausea and vomiting. Patient has a history of pancreatitis. (Eleni Easley) This patient is a 68-year-old woman who presents to have evaluation of abdominal pain. She states it is come on and gotten worse over the past couple of days. She states that it reminds her of previous episode of pancreatitis. She states she also had been seen at the emergency department and [facility] a year ago or so and was told she had bowel perforation. She states she refused surgery and the symptoms eventually improved. Patient has not noted fevers. She is having nausea and vomiting. She states she did have bowel movement couple of days ago. No blood noted. No coffee-ground or bloody emesis. She has not had any change in urination. (Cal Enciso) - Related Data Home Medications Medication Instructions Recorded Confirmed Albuterol Inhaler [Ventolin Hfa 2 puff INHALATION RT-Q6H PRN 09/01/22 11/01/23 Inhaler] Butalbit/Acetamin/Caff/Codeine 1 cap PO Q6HR PRN 01/08/23 11/01/23 [Fioricet-Cod 57-650-76-30 Cap] Gabapentin 600 mg PO TID 01/08/23 11/01/23 Morphine Sulfate ER [Ms Contin] 15 mg PO BID PRN 01/08/23 11/01/23 HYDROcodone/APAP 5-325MG [[place] 1 tab PO TID PRN 11/01/23 11/01/23 5-325] Previous Rx's Medication Instructions Recorded Cephalexin [Keflex] 500 mg PO Q8H #28 cap 11/06/23 Pantoprazole [Protonix] 40 mg PO DAILY #30 tab 11/06/23 Allergies Allergy/AdvReac Type Severity Reaction Status Date / Time No Known Allergies Allergy Verified 11/01/23 20:22 Review of Systems ROS Other: All systems not noted in ROS Statement are negative. <Eleni Easley - Last Filed: 11/01/23 12:53> ROS Other: All systems not noted in ROS Statement are negative. Constitutional: Denies: fever, chills Respiratory: Denies: cough, dyspnea Cardiovascular: Denies: chest pain, palpitations, edema, syncope Gastrointestinal: Reports: abdominal pain, nausea, vomiting. Denies: diarrhea, constipation, hematemesis, melena, hematochezia Genitourinary: Denies: dysuria, hematuria Musculoskeletal: Denies: back pain Skin: Denies: rash Neurological: Denies: headache, weakness <Cal Enciso - Last Filed: 11/07/23 10:01> ROS Statement: Those systems with pertinent positive or pertinent negative responses have been documented in the HPI. Past Medical History Past Medical History: COPD, CVA/TIA, GERD/Reflux, Hypertension, Osteoarthritis (OA) Additional Past Medical History / Comment(s): migraines, stroke Sep 2019-left side weakness, hiatal hernia, diarrhea, no longer needing BP med, chronic pancreatitis, hx anemia, weight loss recently, unsure why-HAS GAINED 10 LBS History of Any Multi-Drug Resistant Organisms: None Reported Past Surgical History: Appendectomy, Back Surgery, Bowel Resection, Cholecy stectomy, Hernia Repair, Orthopedic Surgery, Tonsillectomy Additional Past Surgical History / Comment(s): Umbilical hernia repair (10/20/21), Pancreatic stents-since removed, 6 back surgeries with 2 fusions, right fallopian tube due to ectopic , EGD/colonoscopy, ORIF right femur alice inserted d/t fracture, BACK SURGERY-REMOVED OLD HARDWARE AND PUT IN NEW HARDWARE 09/28/20, bowel rupture surgery, right carotid endarterectomy Past Anesthesia/Blood Transfusion Reactions: No Reported Reaction Additional Past Anesthesia/Blood Transfusion Reaction / Comment(s): DIFF IV STARTS. Pt has received blood in past without reaction. Past Psychological History: No Psychological Hx Reported Smoking Status: Current every day smoker Past Alcohol Use History: None Reported Past Drug Use History: None Reported - Past Family History Father Family Medical History: Cancer Mother Family Medical History: Cancer, CVA/TIA Additional Family Medical History / Comment(s): Breast and colon cancer. <Eleni Easley - Last Filed: 11/01/23 12:53> General Exam <Eleni Easley - Last Filed: 11/01/23 12:53> General appearance: alert, in no apparent distress Head exam: Present: atraumatic, normocephalic Eye exam: Present: normal appearance. Absent: scleral icterus, conjunctival injection Neck exam: Present: normal inspection Respiratory exam: Present: normal lung sounds bilaterally. Absent: respiratory distress, wheezes, rales, rhonchi, stridor, accessory muscle use Cardiovascular Exam: Present: regular rate, normal rhythm, normal heart sounds. Absent: systolic murmur, diastolic murmur, rubs, gallop GI/Abdominal exam: Present: soft, tenderness (There is mild to moderate diffuse tenderness.). Absent: distended, guarding, rebound, rigid, mass, pulsatile mass, hernia Extremities exam: Present: normal inspection, normal capillary refill. Absent: pedal edema, calf tenderness Back exam: Present: normal inspection. Absent: CVA tenderness (R), CVA tenderness (L) Neurological exam: Present: alert Skin exam: Present: warm, dry, intact, normal color. Absent: rash <RafisachinCal - Last Filed: 11/07/23 10:01> - General Exam Comments Initial Comments: Visual Physical Exam Vital signs reviewed General: Well-appearing, nontoxic, no acute distress. Head: Normocephalic, atraumatic Eyes: PERRLA, EOMI ENT: Airway patent Chest: Nonlabored breathing Skin: No visual rash, normal skin tone Neuro: Alert and oriented 3 Musculoskeletal: No gross abnormalities (Eleni Easley) Course Vital Signs 11/01/23 11/01/23 11/02/23 12:35 20:06 00:17 Temperature 98.6 F 98.4 F Pulse Rate 74 67 79 Respiratory 16 16 16 Rate Blood Pressure 117/75 130/70 143/80 O2 Sat by Pulse 96 97 94 L Oximetry 11/02/23 11/02/23 11/02/23 02:31 06:00 07:25 Temperature 98.5 F Pulse Rate 77 78 77 Respiratory 15 18 20 Rate Blood Pressure 143/77 158/77 158/77 O2 Sat by Pulse 96 96 96 Oximetry Medical Decision Making <Eleni Easley - Last Filed: 11/01/23 12:53> - Lab Data Result diagrams: 11/04/23 06:35 11/04/23 06:35 <Cal Enciso - Last Filed: 11/07/23 10:01> - Medical Decision Making I performed the quick note portion of this chart. Electronically signed by Eleni Easley PA-C (Eleni Easley) Patient is a 68-year-old woman Here with intractable abdominal pain and having associated nausea and vomiting. The patient CT scan does appear to show ileus, and patient will be admitted to have further symptom control and consultation. Was pt. sent in by a medical professional or institution ([facility], EVENT DECORATOR AND DESIGNER, urgent care, hospital, or custodial...) When possible be specific @ -[No] Did you speak to anyone other than the patient for history (EMS, parent, family, police, friend...)? What history was obtained from this source @ -[No] Did you review nursing and triage notes (agree or disagree)? Why? @ -[I reviewed and agree with nursing and triage notes] Were old charts reviewed (outside hosp., previous admission, EMS record, old EKG, old radiological studies, urgent care reports/EKG's, custodial records)? Report findings @ -[No old charts were reviewed] Differential Diagnosis (chest pain, altered mental status, abdominal pain women, abdominal pain men, vaginal bleeding, weakness, fever, dyspnea, syncope, headache, dizziness, GI bleed, back pain, seizure, CVA, palpatations, mental health, musculoskeletal)? @ -[Differential Abdominal Pain Women: Appendicitis, Cholecystitis, diverticulosis, ischemic bowel, pancreatitis, hepatitis, UTI, gastroenteritis, AAA, incarcerated hernia, bowel obstruction, constipation, inflammatory bowel, hepatitis, peptic ulcer disease, splenic infarction, perforated viscus, vulvitis, ovarian torsion, PID, kidney stone, placenta abruption, this is not meant to be an all-inclusive list EKG interpreted by me (3pts min.). @ -[As above] X-rays interpreted by me (1pt min.). @ -[None done] CT interpreted by me (1pt min.). @ -[I interpreted as above U/S interpreted by me (1pt. min.). @ -[None done] What testing was considered but not performed or refused? (CT, X-rays, U/S, labs)? Why? @ -[None] What meds were considered but not given or refused? Why? @ -[None] Did you discuss the management of the patient with other professionals (professionals i.e. , PA, EVENT DECORATOR AND DESIGNER, lab, RT, psych nurse, social work lecturer, community coordinator, teacher, enforcement officer, case reviewer)? Give summary @ -[Case discussed with admitting physician and treatment recommendations incorporated Was smoking cessation discussed for >3mins.? @ -[No] Was critical care preformed (if so, how long)? @ -[No] Were there social determinants of health that impacted care today? How? (Homelessness, low income, unemployed, alcoholism, drug addiction, transportation, low edu. Level, literacy, decrease access to med. care, correction, rehab)? @ -[No] Was there de-escalation of care discussed even if they declined (Discuss DNR or withdrawal of care, Hospice)? DNR status @ -[No] What co-morbidities impacted this encounter? (DM, HTN, Smoking, COPD, CAD, Cancer, CVA, ARF, Chemo, Hep., AIDS, mental health diagnosis, sleep apnea, morbid obesity)? @ -[None] Was patient admitted / discharged? Hospital course, mention meds given and route, prescriptions, significant lab abnormalities, going to OR and other pertinent info. @ -[Patient is a 68-year-old woman who presents with abdominal pain and intractable nausea vomiting. The patient will be admitted for symptom control and have surgery consultation. The patient does appear to have ileus on the CT Undiagnosed new problem with uncertain prognosis? @ -[No] Drug Therapy requiring intensive monitoring for toxicity (Heparin, Nitro, Insulin, Cardizem)? @ -[No] Were any procedures done? @ -[No] Diagnosis/symptom? @ -Acute abdominal pain Acute ileus Acute, or Chronic, or Acute on Chronic? @ -[Acute Uncomplicated (without systemic symptoms) or Complicated (systemic symptoms)? @ -[Uncomplicated Side effects of treatment? @ -[No] Exacerbation, Progression, or Severe Exacerbation? @ -[No] Poses a threat to life or bodily function? How? (Chest pain, [place], [place], pneumonia, PE, COPD, DKA, ARF, appy, cholecystitis, CVA, Diverticulitis, Homicidal, Suicidal, threat to staff... and all critical care pts) @ -[No] (RafisachinCal) - Lab Data Lab Results 11/01/23 11/01/23 11/01/23 Range/Units 12:47 12:47 12:47 WBC 11.6 H (3.8-10.6) k/uL RBC 4.16 (3.80-5.40) m/uL Hgb 12.7 (11.4-16.0) gm/dL Hct 39.9 (34.0-46.0) % MCV 95.8 (80.0-100.0) fL MCH 30.6 (25.0-35.0) pg MCHC 32.0 (31.0-37.0) g/dL RDW 14.1 (11.5-15.5) % Plt Count 293 (150-450) k/uL MPV 8.5 Sodium 137 (137-145) mmol/L Potassium 5.2 H (3.5-5.1) mmol/L Chloride 109 H (98-107) mmol/L Carbon Dioxide 19 L (22-30) mmol/L Anion Gap 9 mmol/L BUN 29 H (7-17) mg/dL Creatinine 0.67 (0.52-1.04) mg/dL Est GFR (CKD-EPI)AfAm >90 (>60 ml/min/1.73 sqM) Est GFR (CKD-EPI)NonAf >90 (>60 ml/min/1.73 sqM) Glucose 95 (74-99) mg/dL Plasma Lactic Acid Derek 0.9 (0.7-2.0) mmol/L Calcium 8.7 (8.4-10.2) mg/dL Total Bilirubin 0.5 (0.2-1.3) mg/dL AST 30 (14-36) U/L ALT 20 (4-34) U/L Alkaline Phosphatase 131 H (38-126) U/L Total Protein 7.5 (6.3-8.2) g/dL Albumin 4.4 (3.5-5.0) g/dL Amylase 50 (30-110) U/L Lipase 21 L (23-300) U/L Urine Color Urine Appearance (Clear) Urine pH (5.0-8.0) Ur Specific [place] (1.001-1.035) Urine Protein (Negative) Urine Glucose (UA) (Negative) Urine Ketones (Negative) Urine Blood (Negative) Urine Nitrite (Negative) Urine Bilirubin (Negative) Urine Urobilinogen (<2.0) mg/dL Ur Leukocyte Esterase (Negative) Urine RBC (0-5) /hpf Urine WBC (0-5) /hpf Ur Squamous Epith Cells (0-4) /hpf Urine Bacteria (None) /hpf Urine Mucus (None) /hpf 11/01/23 Range/Units 20:04 WBC (3.8-10.6) k/uL RBC (3.80-5.40) m/uL Hgb (11.4-16.0) gm/dL Hct (34.0-46.0) % MCV (80.0-100.0) fL MCH (25.0-35.0) pg MCHC (31.0-37.0) g/dL RDW (11.5-15.5) % Plt Count (150-450) k/uL MPV Sodium (137-145) mmol/L Potassium (3.5-5.1) mmol/L Chloride (98-107) mmol/L Carbon Dioxide (22-30) mmol/L Anion Gap mmol/L BUN (7-17) mg/dL Creatinine (0.52-1.04) mg/dL Est GFR (CKD-EPI)AfAm (>60 ml/min/1.73 sqM) Est GFR (CKD-EPI)NonAf (>60 ml/min/1.73 sqM) Glucose (74-99) mg/dL Plasma Lactic Acid Derek (0.7-2.0) mmol/L Calcium (8.4-10.2) mg/dL Total Bilirubin (0.2-1.3) mg/dL AST (14-36) U/L ALT (4-34) U/L Alkaline Phosphatase (38-126) U/L Total Protein (6.3-8.2) g/dL Albumin (3.5-5.0) g/dL Amylase (30-110) U/L Lipase (23-300) U/L Urine Color Colorless Urine Appearance Clear (Clear) Urine pH 5.5 (5.0-8.0) Ur Specific [place] 1.038 H (1.001-1.035) Urine Protein Negative (Negative) Urine Glucose (UA) Negative (Negative) Urine Ketones Negative (Negative) Urine Blood Small H (Negative) Urine Nitrite Positive H (Negative) Urine Bilirubin Negative (Negative) Urine Urobilinogen <2.0 (<2.0) mg/dL Ur Leukocyte Esterase Small H (Negative) Urine RBC 2 (0-5) /hpf Urine WBC 9 H (0-5) /hpf Ur Squamous Epith Cells 1 (0-4) /hpf Urine Bacteria Rare H (None) /hpf Urine Mucus Rare H (None) /hpf Disposition <Eleni Easley - Last Filed: 11/01/23 12:53> Is patient prescribed a controlled substance at d/c from ED?: No <Cal Enciso - Last Filed: 11/07/23 10:01> Clinical Impression: Ileus, Abdominal pain Disposition: ADMITTED IP TO THIS HOSP Condition: Fair
[2023-11-01 13:50] LABS: ALT 20 U/L (4-34); African American GFR (CKD) >90 (>60 ml/min/1.73 sqM); Albumin 4.4 g/dL (3.5-5.0); Amylase 50 U/L (30-110); Anion Gap 9 mmol/L; Blood Urea Nitrogen 29 mg/dL (7-17); Calcium 8.7 mg/dL (8.4-10.2); Carbon Dioxide 19 mmol/L (22-30); Chloride 109 mmol/L (98-107); Glucose 95 mg/dL (74-99); Lipase 21 U/L (23-300); Non-African American GFR(CKD) >90 (>60 ml/min/1.73 sqM); Sodium 137 mmol/L (137-145); Total Bilirubin 0.5 mg/dL (0.2-1.3); Total Protein 7.5 g/dL (6.3-8.2)
[2023-11-01 13:51] LABS: AST 30 U/L (14-36); Alkaline Phosphatase 131 U/L (38-126); Potassium 5.2 mmol/L (3.5-5.1)
[2023-11-01 13:52] LABS: HCT 39.9 % (34.0-46.0); HGB 12.7 gm/dL (11.4-16.0); MCH 30.6 pg (25.0-35.0); MCV 95.8 fL (80.0-100.0); Mean Platelet Volume 8.5; Platelet Count 293 k/uL (150-450); RBC 4.16 m/uL (3.80-5.40); RDW 14.1 % (11.5-15.5); WBC 11.6 k/uL (3.8-10.6)
--- NOTE | 2023-11-01 18:19 | CT ---
EXAMINATION TYPE: CT abdomen pelvis w con DATE OF EXAM: 11/01/2023 COMPARISON: 04/17/2023 INDICATION: abd pain DLP: 790.3 mGycm, Automated exposure control for dose reduction was used. CONTRAST: 100ml mL of Isovue 300. Study performed without Oral Contrast TECHNIQUE: Axial images were obtained from above the diaphragm to the pubic rami in the axial plane a t 5 mm thick sections. Reconstructed images are reviewed on the computer in the coronal plane. FINDINGS: Limited CT sections are obtained the lung bases. The lung bases are clear. CT ABDOMEN: Liver: Biliary air is present. The common bile duct is very prominent extrahepatic biliary ducts are prominent on the left. Spleen: Normal Pancreas: There are calcifications to the atrophic pancreas. Pancreatic duct is prominent at the body and tail of the pancreas measuring 0.5 cm. Normal less than 0.2-0.1. Adrenal glands: The adrenal glands are normal. Gallbladder: Normal Kidneys: No masses are evident. No hydronephrosis is present. There is a 1.2 cm cyst in the lateral upper pole right kidney. Delayed images were obtained through the kidneys, which remain unremarkable . Aorta: Vascular calcification is within the aorta. Inferior vena cava: Normal. CT PELVIS: There are very prominent small bowel loops containing fluid. Air and fecal debris is within the colon . Zone of transition is not identified. Findings are somewhat similar to the comparison study. This s tudy is a lateral contrast limiting bowel evaluation. Appendix: Not identified. No dilated tubular structure or inflammatory changes are evident. Urinary bladder: Normal. Genitourinary structures: Uterus and ovaries are not identified. Osseous structures: No suspicious lytic or sclerotic lesions. Extensive surgery as through the thorac ic and lumbar spine. IMPRESSION: 1. Multiple very prominent small bowel loops containing fluid and more distally fluid and fecal debr is. Fecal debris is within the more normal caliber colon. Findings are somewhat similar to comparison . Correlate for ileus. Follow-up is recommended. 2. Dilated pancreatic duct in the atrophic chronic pancreatitis. 3. Dilated common bile duct with biliary air present.
[2023-11-01] MEDS: SODIUM CHLORIDE 0.9% 500 ML 500 ML IV STA (19:51)
[2023-11-01] MEDS: SODIUM CHLORIDE 0.9% 1,000 ML IV STA (19:51)
[2023-11-01 20:37] LABS: Appearance,Urine Clear (Clear); Bacteria,Urine Rare /hpf; Bilirubin,Urine Negative (Negative); Blood,Urine Small (Negative); Color,Urine Colorless; Glucose,Urine (UA) Negative (Negative); Ketones,Urine Negative (Negative); Leukocyte Esterase,Urine Small (Negative); Mucus,Urine Rare /hpf; Nitrite,Urine Positive (Negative); PH, Urine 5.5 (5.0-8.0); Protein,Urine Negative (Negative); RBC,Urine 2 /hpf (0-5); Specific Gravity,Urine 1.038 (1.001-1.035); Squamous Epithelial Cell,Urine 1 /hpf (0-4); Urobilinogen,Urine <2.0 mg/dL (<2.0); WBC,Urine 9 /hpf (0-5)
[2023-11-01] MEDS ORDERED: ONDANSETRON 4 MG/2 ML VIAL IVP PRN (21:27)
[2023-11-01] MEDS ORDERED: NALOXONE 0.4 MG/ML 1 ML VIAL IV PRN (21:27)
[2023-11-01] MEDS: SODIUM CHLORIDE 0.9% 1,000 ML IV SCH (21:41)
[2023-11-02] MEDS: MORPHINE SULFATE 4 MG/ML SYRINGE IV PRN (02:28)
[2023-11-02] MEDS ORDERED: ALBUTEROL HFA INHALER INHALATION PRN (07:23)
[2023-11-02] MEDS: GABAPENTIN 300 MG CAP PO SCH (08:12)
[2023-11-02] MEDS: FAMOTIDINE 20 MG TAB PO SCH (08:12)
[2023-11-02 12:53] VITALS: BMI 15.6
--- NOTE | 2023-11-02 15:50 | P.GSCN ---
History of Present Illness Consult date: 11/02/23 History of present illness: CHIEF COMPLAINT: Abdominal pain HISTORY OF PRESENT ILLNESS: This is a 68-year-old female who presented to the hospital with complaints of epigastric abdominal pain that radiated to the left upper quadrant and back x 2 days. She reports symptoms are similar to her episodes of pancreatitis. She denies any alcohol use. She reports having n ausea vomiting and diarrhea. She reports over the night she had 3 loose stools. She reports no blood in the stools. She has had no further vomiting since coming into the hospital. She denies any fevers chills or sweats. Denies any urinary symptoms. She reports her last colonoscopy was 4 years ago and she reports benign colon polyps. Patient surgical history includes Niesen fundoplication, cholecystectomy umbilical hernia repair, bowel resection for a bowel perforation. She reports that she did have a bowel perforation 1 year ago requiring surgery at [facility] by Dr. Campbell. CT scan abdomen pelvis that showed evidence of ileus, chronic pancreatitis and dilated common bile duct with biliary air. Per nursing staff they called and notified me that patient is now reporting that she had had black stools x 2 days and vomiting of blood x 2 yesterday. Patient is not on any blood thinners. PAST MEDICAL HISTORY: See list. PAST SURGICAL HISTORY: See list. MEDICATIONS: See list. ALLERGIES: See list. SOCIAL HISTORY: No illicit drug use. REVIEW OF SYSTEMS: CONSTITUTIONAL: Denies fever or chills. HEENT: Denies blurred vision, vision changes, or eye pain. Denies hemoptysis ENDOCRINE: Denies heat or cold intolerance. CARDIOVASCULAR: Denies chest pain or pressure. RESPIRATORY: No shortness of breath. GASTROINTESTINAL: Denies abdominal pain. Denies nausea or vomiting. NEURO: Denies history of seizures. PSYCH: No depression or suicidal ideation HEMATOLOGIC: Denies bleeding disorders. LYMPHATIC: The patient denies any lumps and bumps around the neck. GENITOURINARY: Denies any blood in urine or increased urinary frequency. MUSCULOSKELETAL: Denies myalgias. Denies joint swelling. Denies decreased range of motion beyond patients baseline. SKIN: Denies pruitis. Denies rash. PHYSICAL EXAM: VITAL SIGNS: Reviewed GENERAL: Well-developed in no acute distress. HEENT: No sclera icterus. Extraocular movements grossly intact. Moist buccal mucosa. Head is atraumatic, normocephalic. Hears conversational speech. No nasal drainage. NECK: Supple without lymphadenopathy. CHEST: Non-labored respirations and equal bilateral excursions. CARDIOVASCULAR: Palpable 2+ radial pulses. ABDOMEN: Soft. Mildly distended. Epigastric tenderness MUSCULOSKELETAL: No clubbing or cyanosis. NEUROLOGIC: No focal or lateralizing signs. Cranial nerves II through XII gr ossly intact. PSYCH: Appropriate affect. Alert and oriented to person, place and time. SKIN: Well perfused. Good skin turgor. LABORATORY DATA: WBC 11.6 Hgb 12.7 platelets 293 Sodium 137 potassium is 5.2 creatinine 0.67 Total bili 0.5 AST 30 ALT 20 alk phos 131 Lipase 21 IMAGING: CT scan abdomen pelvis reporting multiple very prominent small bowel loops containing fluid more distally fluid and fecal debris. Correlate for ileus. Dilated pancreatic duct and the atrophic chronic pancreatitis. Dilated common bile duct with biliary air present ASSESSMENT: 1. Epigastric abdominal pain 2. Nausea vomiting and diarrhea 3. Possible GI bleed with melanotic stools and hematemesis 4. Hyperkalemia 5. History of chronic pancreatitis 6. History of cholecystectomy PLAN: -EGD scheduled for 11/05/[address] Wylie -MRCP ordered for further evaluation of dilated common bile duct -Continue to monitor for any signs or symptoms of bleeding -Continue to monitor hemoglobin -Continue clear liquid diet -Add IV Protonix BID -Continue IV fluids Physician Irrigation Engineer note has been reviewed by physician. Signing provider agrees with the documented findings, assessment, and plan of care. Past Medical History Past Medical History: COPD, CVA/TIA, GERD/Reflux, Hypertension, Osteoarthritis (OA) Additional Past Medical History / Comment(s): migraines, stroke Sep 2019-left side weakness, hiatal hernia, diarrhea, no longer needing BP med, chronic pancreatitis, hx anemia, weight loss recently, unsure why-HAS GAINED 10 LBS History of Any Multi-Drug Resistant Organisms: None Reported Past Surgical History: Appendectomy, Back Surgery, Bowel Resection, Cholecystectomy, Hernia Repair, Orthopedic Surgery, Tonsillectomy Additional Past Surgical History / Comment(s): Umbilical hernia repair (10/20/21), Pancreatic stents-since removed, 6 back surgeries with 2 fusions, right fallopian tube due to ectopic , EGD/colonoscopy, ORIF right femur alice inserted d/t fracture, BACK SURGERY-REMOVED OLD HARDWARE AND PUT IN NEW HARDWARE 09/28/20, bowel rupture surgery, right carotid endarterectomy Past Anesthesia/Blood Transfusion Reactions: No Reported Reaction Additional Past Anesthesia/Blood Transfusion Reaction / Comm: DIFF IV STARTS. Pt has received blood in past without reaction. Past Psychological History: No Psychological Hx Reported Smoking Status: Current every day smoker Past Alcohol Use History: None Reported Past Drug Use History: None Reported - Past Family History Father Family Medical History: Cancer Mother Family Medical History: Cancer, CVA/TIA Additional Family Medical History / Comment(s): Breast and colon cancer. Medications and Allergies Home Medications Medication Instructions Recorded Confirmed Type Albuterol Inhaler [Ventolin Hfa 2 puff INHALATION RT-Q6H PRN 09/01/22 11/01/23 History Inhaler] Butalbit/Acetamin/Caff/Codeine 1 cap PO Q6HR PRN 01/08/23 11/01/23 History [Fioricet-Cod 89-782-04-30 Cap] Gabapentin 600 mg PO TID 01/08/23 11/01/23 History Morphine Sulfate ER [Ms Contin] 15 mg PO BID PRN 01/08/23 11/01/23 History HYDROcodone/APAP 5-325MG [[place] 1 tab PO TID PRN 11/01/23 11/01/23 History 5-325] Allergies Allergy/AdvReac Type Severity Reaction Status Date / Time No Known Allergies Allergy Verified 11/01/23 20:22 Surgical - Exam Vital Signs Temp Pulse Resp BP Pulse Ox 98.6 F 74 16 117/75 96 11/01/23 12:35 11/01/23 12:35 11/01/23 12:35 11/01/23 12:35 11/01/23 12:35 Results - Labs 11/01/23 12:47 11/01/23 12:47 Abnormal Lab Results - Last 24 Hours (Table) 11/01/23 11/01/23 11/01/23 Range/Units 12:47 12:47 20:04 WBC 11.6 H (3.8-10.6) k/uL Potassium 5.2 H (3.5-5.1) mmol/L Chloride 109 H (98-107) mmol/L Carbon Dioxide 19 L (22-30) mmol/L BUN 29 H (7-17) mg/dL Alkaline Phosphatase 131 H (38-126) U/L Lipase 21 L (23-300) U/L Ur Specific [place] 1.038 H (1.001-1.035) Urine Blood Small H (Negative) Urine Nitrite Positive H (Negative) Ur Leukocyte Esterase Small H (Negative) Urine WBC 9 H (0-5) /hpf Urine Bacteria Rare H (None) /hpf Urine Mucus Rare H (None) /hpf Diabetes panel 11/01/23 Range/Units 12:47 Sodium 137 (137-145) mmol/L Potassium 5.2 H (3.5-5.1) mmol/L Chloride 109 H (98-107) mmol/L Carbon Dioxide 19 L (22-30) mmol/L BUN 29 H (7-17) mg/dL Creatinine 0.67 (0.52-1.04) mg/dL Glucose 95 (74-99) mg/dL Calcium 8.7 (8.4-10.2) mg/dL AST 30 (14-36) U/L ALT 20 (4-34) U/L Alkaline Phosphatase 131 H (38-126) U/L Total Protein 7.5 (6.3-8.2) g/dL Albumin 4.4 (3.5-5.0) g/dL Calcium panel 11/01/23 Range/Units 12:47 Calcium 8.7 (8.4-10.2) mg/dL Albumin 4.4 (3.5-5.0) g/dL Pituitary panel 11/01/23 Range/Units 12:47 Sodium 137 (137-145) mmol/L Potassium 5.2 H (3.5-5.1) mmol/L Chloride 109 H (98-107) mmol/L Carbon Dioxide 19 L (22-30) mmol/L BUN 29 H (7-17) mg/dL Creatinine 0.67 (0.52-1.04) mg/dL Glucose 95 (74-99) mg/dL Calcium 8.7 (8.4-10.2) mg/dL Adrenal panel 11/01/23 Range/Units 12:47 Sodium 137 (137-145) mmol/L Potassium 5.2 H (3.5-5.1) mmol/L Chloride 109 H (98-107) mmol/L Carbon Dioxide 19 L (22-30) mmol/L BUN 29 H (7-17) mg/dL Creatinine 0.67 (0.52-1.04) mg/dL Glucose 95 (74-99) mg/dL Calcium 8.7 (8.4-10.2) mg/dL Total Bilirubin 0.5 (0.2-1.3) mg/dL AST 30 (14-36) U/L ALT 20 (4-34) U/L Alkaline Phosphatase 131 H (38-126) U/L Total Protein 7.5 (6.3-8.2) g/dL Albumin 4.4 (3.5-5.0) g/dL
--- NOTE | 2023-11-02 17:39 | MR ---
EXAMINATION TYPE: MR MRCP DATE OF EXAM: 11/02/2023 3:52 PM CLINICAL INDICATION:Female, 68 years old with history of dilated common bile duct on CT; PHH, Intract able abdominal pain, dilated CBD on CT. COMPARISON: 03/13/2018. TECHNIQUE: Multi planar, T2-weighted imaging with and without fat saturation and chemical shift imag ing was performed of the abdomen. Then, heavily T2 weighted imaging (half-Fourier acquisition single- shot turbo spin-echo) was utilized in order to study the biliary system. Maximum intensity projectio n images were reconstructed from the original data of the biliary tree. 3D images were created on a [employer] work station. No Gadolinium given. FINDINGS: Lower Thorax: No evidence for acute process. MRCP: * The intrahepatic ducts are dilated predominately centrally. * The common bile duct at the level of the pancreatic head measures 10 mm in size. * The common hepatic duct measures 15 mm in size there is filling defects thought to be within the m ain pancreatic duct. Slice selection on coronal imaging is sought to show the common bile duct clear of stones. There is a single slice of possible stone near the ostium. * The pancreatic duct is dilated with multiple filling defects best appreciated on series 411 image 13 and is dilated up to 7 mm. * The gallbladder is surgically absent. Cystic duct remnant noted. Abdomen: Liver: Unremarkable. Pancreas: Unremarkable. Spleen: Unremarkable. Adrenal glands: Unremarkable. Kidneys: Simple appearing high T2 signal right renal cyst. Stomach and Bowel: Unremarkable as visualized. Peritoneum: No evidence of pneumoperitoneum or free fluid. Vasculature: Unremarkable. No aortic aneurysm. Musculoskeletal: The osseous structures appear intact. Fixation hardware is seen throughout the spine with susceptibility artifact. Lymph Nodes: No gross evidence for lymphadenopathy. Abdominal wall: Unremarkable. IMPRESSION: Dilated extrahepatic and intrahepatic biliary system as well as the main pancreatic duct. There is mu ltiple filling defects layering dependently within the pancreatic duct. The common bile duct appears dilated and pain without choledocholithiasis.
[2023-11-02] MEDS: ACETAMINOPHEN TAB 325 MG TAB PO PRN (20:06)
[2023-11-02] MEDS: PANTOPRAZOLE 40 MG/10 ML VIAL IVP SCH (20:06)
[2023-11-03] MEDS: hydrALAZINE HCL 20 MG/ML 1 ML VIAL IVP PRN (05:56)
[2023-11-03 09:50] LABS: Basophils # (A) 0.09 X 10*3/uL (0.00-0.10); Basophils % (A) 0.5 %; Eosinophils % (A) 0.5 %; HCT 42.5 % (37.2-46.3); HGB 13.6 g/dL (12.0-15.0); Lymphocytes # (A) 1.45 X 10*3/uL (0.90-5.00); Lymphocytes % (A) 7.8 %; MCH 29.2 pg (27.0-32.0); MCV 91.4 FL (80.0-97.0); Mean Platelet Volume 10.3 FL (9.5-12.2); Monocytes # (A) 0.93 X 10*3/uL (0.20-1.00); NRBC Per 100 WBC 0 X 10*3/uL (0.00-0.01); Neutrophils # (A) 15.82 X 10*3/uL (1.80-7.70); Neutrophils % (A) 85.7 %; Platelet Count 307 X 10*3/uL (140-440); RBC 4.65 X 10*6/uL (4.10-5.20); RDW 14.9 % (11.5-14.5); WBC 18.49 X 10*3/uL (4.50-10.00)
[2023-11-03 10:28] LABS: ALT 23 U/L (8-44); AST 32 U/L (13-35); Albumin 4.4 g/dL (3.8-4.9); Albumin/Globulin Ratio 1.57 Ratio (1.60-3.17); Alkaline Phosphatase 150 U/L (41-126); BUN/Creat Ratio 9.17 Ratio (12.00-20.00); Blood Urea Nitrogen 5.5 mg/dL (9.0-27.0); Calcium 9.3 mg/dL (8.7-10.3); Carbon Dioxide 21.4 mmol/L (21.6-31.8); Chloride 104 mmol/L (96-109); Globulin 2.8 g/dL (1.6-3.3); Glucose 174 mg/dL (70-110); Sodium 139 mmol/L (135-145); Total Bilirubin 0.3 mg/dL (0.3-1.2); Total Protein 7.2 g/dL (6.2-8.2)
[2023-11-03] MEDS: BUTA/APAP/CAF/COD 50-325-40-30 CAP PO PRN (11:07)
--- NOTE | 2023-11-03 14:35 | P.PN ---
Subjective Progress Note Date: 11/03/23 NAEON. No worsening abdominal pain. No N/V. No F/C. Flatus but no Bm. Objective - Vital Signs Vital signs: Vital Signs Temp 98.3 F 11/03/23 07:00 Pulse 89 11/03/23 07:00 Resp 18 11/03/23 07:00 BP 176/76 11/03/23 07:00 Pulse Ox 93 L 11/03/23 07:00 FiO2 Intake & Output 11/02/23 11/03/23 11/03/23 18:59 06:59 18:59 Weight 45.359 kg Other: Voiding Method Toilet Toilet Toilet Diaper # Voids 3 4 - Exam Gen: AxO, NAD Pulm; non-labored respirations Abd: soft, minimally tender in epigastrium. Non-distended. No Guarding/rebound/rigidity Extrem: no edema seen - Labs CBC & Chem 7: 11/03/23 05:45 11/03/23 05:45 Labs: Abnormal Lab Results - Last 24 Hours (Table) 11/03/23 11/03/23 Range/Units 05:45 05:45 WBC 18.49 H (4.50-10.00) X 10*3/uL RDW 14.9 H (11.5-14.5) % Immature Gran # 0.10 H (0.00-0.04) X 10*3/uL Neutrophils # 15.82 H (1.80-7.70) X 10*3/uL Carbon Dioxide 21.4 L (21.6-31.8) mmol/L Anion Gap 13.60 H (4.00-12.00) mmol/L BUN 5.5 L (9.0-27.0) mg/dL BUN/Creatinine Ratio 9.17 L (12.00-20.00) Ratio Glucose 174 H (70-110) mg/dL Alkaline Phosphatase 150 H (41-126) U/L Albumin/Globulin Ratio 1.57 L (1.60-3.17) Ratio Assessment and Plan Assessment: ASSESSMENT: 1. Epigastric abdominal pain 2. Nausea vomiting and diarrhea 3. Possible GI bleed with melanotic stools and hematemesis 4. Hyperkalemia 5. History of chronic pancreatitis Plan: ASSESSMENT: 1. Epigastric abdominal pain 2. Nausea vomiting and diarrhea 3. Possible GI bleed with melanotic stools and hematemesis 4. Hyperkalemia 5. History of chronic pancreatitis 6. History of cholecystectomy PLAN: -EGD scheduled for 11/05/[address] Wylie -Continue to monitor for any signs or symptoms of bleeding -Continue to monitor hemoglobin -Continue clear liquid diet -Add IV Protonix BID -Continue IV fluids -No acute surgical intervention at this time Leno Salazar MD General Surgery
[2023-11-03] MEDS: PIPERACILLIN-TAZOBACTAM 3.375 GM in SODIUM CHLORIDE 0.9% 100 ML IVPB SCH (15:25)
--- NOTE | 2023-11-03 16:28 | HP ---
HISTORY AND PHYSICAL HISTORY OF PRESENT ILLNESS: This is a 68-year-old female, who came to the emergency room with epigastric pain going to left upper quadrant, going to the back for 2 days, similar to prior history of pancreatitis. She denies any alcohol abuse, vomiting, or diarrhea. She has 3 loose bowel stools. No further vomiting since she has been the hospital. She is on IV morphine pain medication. PAST SURGICAL HISTORY: Karin fundoplication, cholecystectomy, umbilical hernia repair, bowel resection, and bowel perforation. CAT scan shows ileus, chronic pancreatitis, dilated common bile duct. Abnormal MRCP, black tarry stools for 2 days 2 days. MEDICATIONS: See list. ALLERGIES: See list. HOME MEDICATIONS: See list. FAMILY HISTORY: See list. REVIEW OF SYSTEMS: A 14-point review of systems is negative except for mentioned in HPI, otherwise negative. PHYSICAL EXAMINATION: VITAL SIGNS: Stable. Afebrile. GENERAL: In no distress. HEENT: Pupils are equal, round, and reactive. Head normocephalic and atraumatic. CHEST: Nonlabored respirations. Mild wheeze. HEART: S1 and S2. ABDOMEN: Distended mildly distended, soft. MUSCULOSKELETAL: No cyanosis, clubbing, or edema. NEUROLOGIC: Cranial nerves intact. PSYCH: Poor mood and affect. SKIN: Warm and dry. LABORATORY DATA: Platelets 293, hemoglobin is 12.7, and white count 1.6. Sodium 137, potassium 5.2, creatinine 0.67, and lipase 21. CT of the abdomen and pelvis, very prominent small bowel loops containing fluid. Correlate for ileus, atrophic pancreatitis, dilated common bile duct. ERCP pending. Possible GI bleed, melanotic stools, nausea, vomiting, possible gastroenteritis, hyperkalemia, chronic pancreatitis, cholecystectomy. EGD scheduled for Sunday with Dr. Wylie. MRCP data . We will get GI consult. Possibly need ERCP if she has a multiple common bile duct dilation. Prognosis guarded. Please see further orders. MMODL / IJN: [id number] /
--- NOTE | 2023-11-04 01:37 | XR ---
EXAM: XR Right Hip With Pelvis When Performed, 1 View CLINICAL HISTORY: ITS.REASON XR Reason: fall/right hip pain TECHNIQUE: Frontal view of the right hip with pelvis when performed. COMPARISON: No relevant prior studies available. FINDINGS: Bones/joints: RIGHT hip femoral nail. Lumbosacral fusion hardware. Mild joint space narrowing of the RIGHT hip joint. No acute fracture or subluxation. Osseous demineralization. Soft tissues: Unremarkable. IMPRESSION: Mild joint space narrowing of the RIGHT hip joint. No acute fracture or subluxation.
[2023-11-04 07:53] LABS: Basophils % (A) 0 %; Eosinophils # (A) 0.3 k/uL (0-0.7); Eosinophils % (A) 2 %; HCT 40.1 % (34.0-46.0); HGB 12.3 gm/dL (11.4-16.0); Hypochromasia Slight; Lymphocytes # (A) 2.2 k/uL (1.0-4.8); Lymphocytes % (A) 16 %; MCH 29.8 pg (25.0-35.0); MCHC 30.8 g/dL (31.0-37.0); MCV 96.7 fL (80.0-100.0); Monocytes # (A) 0.9 k/uL (0-1.0); Monocytes % (A) 7 %; Neutrophils # (A) 10.2 k/uL (1.3-7.7); Neutrophils % (A) 74 %; Platelet Count 257 k/uL (150-450); RBC 4.14 m/uL (3.80-5.40); RDW 14.3 % (11.5-15.5); WBC 13.9 k/uL (3.8-10.6)
[2023-11-04 08:05] LABS: ALT 23 U/L (4-34); AST 46 U/L (14-36); African American GFR (CKD) >90 (>60 ml/min/1.73 sqM); Albumin 4.1 g/dL (3.5-5.0); Albumin/Globulin Ratio 1.5; Alkaline Phosphatase 123 U/L (38-126); Anion Gap 7 mmol/L; Blood Urea Nitrogen 6 mg/dL (7-17); Calcium 9.3 mg/dL (8.4-10.2); Carbon Dioxide 26 mmol/L (22-30); Chloride 106 mmol/L (98-107); Globulin 2.8 g/dL; Glucose 56 mg/dL (74-99); Non-African American GFR(CKD) >90 (>60 ml/min/1.73 sqM); Potassium 5.1 mmol/L (3.5-5.1); Sodium 139 mmol/L (137-145); Total Bilirubin 0.5 mg/dL (0.2-1.3); Total Protein 6.9 g/dL (6.3-8.2)
--- NOTE | 2023-11-04 13:07 | PN ---
PROGRESS NOTE SUBJECTIVE: White count is down to 13.9 today. BUN and creatinine are normal. She has a sodium 139, potassium 5.1. She has gram-negative bacilli and urine culture, remains on IV Zosyn for this. Waiting for final culture. She had a hip x-ray done for hip pain. Waiting for GI consultation. Mild joint space narrowing of the right hip joint as she fell out of bed last night. Does not appear broke. ERCP is abnormal, waiting for GI consultation. She may need MRCP, but her abdominal pain is not worsening, so I expect no bowel movement. She has abnormal ERCP. Blood pressure is high 170s over 78, pulse 89, respiratory rate 18, temp 98.3. White count is down to 13. GI is mildly tender, improving. She has possible GI bleed with melenic stools, hematemesis. She is supposed to get the scope done. She has a history of chronic pancreatitis, hyperkalemia, abnormal ERCP EGD scheduled for Sunday. IV Protonix. No surgical intervention, but we are waiting for ERCP. GI consult. PROGNOSIS: Guarded. MMODL / IJN: [id number] /
--- NOTE | 2023-11-04 16:56 | P.PN ---
Subjective Progress Note Date: 11/04/23 CHIEF COMPLAINT: GI bleed HISTORY OF PRESENT ILLNESS: The patient is a 68-year-old female admitted with abdominal pain versus ileus. Patient has pre-existing history of pancreatic stents. Patient has been on clear liquid diet. She reports having an appetite and hungry for more food. General surgery is consulted also for hematemesis, GI bleed and dark stools. Last colonoscopy over 5 to 10 years ago. ROS: No fevers or chills. No new chest pain. No productive sputum PHYSICAL EXAM: VITAL SIGNS: Reviewed CONSTITUTIONAL: Well developed and in no acute distress. EYES: Conjuctivae without sclera icterus. Extraocular movements grossly intact. HEAD, EARS, NOSE, THROAT: Moist buccal mucosa. Head is atraumatic, normocephalic. Hears conversational speech. No nasal drainage. RESPIRATORY: Non-labored respirations and equal bilateral excursions. CARDIOVASCULAR: Palpable 2+ radial pulses. ABDOMEN: No diffuse peritonitis MUSCULOSKELETAL: No gross deformity of the lower extremities noted. No clubbing. No cyanosis. SKIN: Good skin turgor. Well perfused. NEUROLOGIC: Cranial nerves II through XII grossly intact. No focal or lateralizing signs. PSYCH: Appropriate affect. Alert and oriented to person, place and time. CLINICAL LABS: Reviewed. Leukocytosis with WBC trending downward. STUDIES: CT of the abdomen pelvis independently reviewed demonstrates moderate stool burden. Moderate air within the biliary tree. No discrete intra- abdominal masses. This is my independent interpretation. ASSESSMENT: 1. Recent hematemesis GI bleed. 2. History of pancreatic stent placement 3. Abdominal pain PLAN: 1. Patient reports abdominal pain is improved and may be started on diet. 2. Likely recent GI bleed we will proceed with upper endoscopy. 3. May likely benefit from lower endoscopy pending results from upper endoscopy due to GI bleed. Objective - Vital Signs Vital signs: Vital Signs Temp 98.5 F 11/04/23 14:00 Pulse 81 11/04/23 14:00 Resp 16 11/04/23 14:00 BP 160/88 11/04/23 14:00 Pulse Ox 95 11/04/23 14:00 FiO2 Intake & Output 11/03/23 11/04/23 11/04/23 18:59 06:59 18:59 Other: Voiding Method Toilet Toilet Toilet # Voids 3 6 # Bowel Movements 0 - Labs CBC & Chem 7: 11/04/23 06:35 11/04/23 06:35 Labs: Abnormal Lab Results - Last 24 Hours (Table) 11/04/23 11/04/23 Range/Units 06:35 06:35 WBC 13.9 H (3.8-10.6) k/uL MCHC 30.8 L (31.0-37.0) g/dL Neutrophils # 10.2 H (1.3-7.7) k/uL BUN 6 L (7-17) mg/dL Glucose 56 L (74-99) mg/dL AST 46 H (14-36) U/L Microbiology - Last 24 Hours (Table) 11/02/23 17:54 Urine Culture - Preliminary Urine,Clean Catch Gram Neg Bacilli
[2023-11-04] MEDS: PIPERACILLIN-TAZOBACTAM 3.375 GM in SODIUM CHLORIDE 0.9% 100 ML IVPB SCH (20:05)
[2023-11-05] MEDS ORDERED: PROPOFOL 10 MG/ML 20 ML VIAL IV ONE (07:27)
[2023-11-05] MEDS ORDERED: LIDOCAINE 1% INJ 10MG/ML (20 ML MDV) ONE (07:27)
[2023-11-05] MEDS: IV FLUID CONTINUATION 1,000 ML IV ONE (07:31)
--- NOTE | 2023-11-05 07:41 | P.PCN ---
Date of Procedure: 11/05/23 Description of Procedure: PREOPERATIVE DIAGNOSIS: Acute gastrointestinal bleeding Epigastric abdominal pain Anemia Underweight, BMI 15.7 POSTOPERATIVE DIAGNOSIS: Presbyesophagus Bile reflux esophagitis Acute gastrointestinal bleeding Epigastric abdominal pain Anemia Underweight, BMI 15.7 OPERATION: Esophagogastroduodenoscopy SURGEON: Marissa Wylie MD ANESTHESIA: MAC. INDICATIONS: The patient is a 68-year-old female who presents with gastrointestinal bleeding. Benefits and risks of the procedure were described. Informed consent was obtained. DESCRIPTION: The patient was brought into the endoscopy suite and laid in the left lateral decubitus position. An Olympus gastroscope was passed along the posterior oropharynx down to the distal esophagus where the squamocolumnar junction was encountered at 36 cm from the incisors. The stomach was entered and no bile reflux was found. Additional findings are listed below. The first through third portion of the duodenum was examined and unremarkable. Retroflexion of the scope confirmed Hill grade 1 lower esophageal valve. The squamocolumnar junction demonstrated LA grade B erosive esophagitis. The stomach was desufflated. The patient tolerated the procedure well. FINDINGS: Squamocolumnar junction 36 cm from the incisors. Diaphragmatic hiatus at 36 cm. Hill grade 1 lower esophageal valve. LA grade B erosive esophagitis. No active duodenitis. No stigmata of bleeding RECOMMENDATIONS: 1. Diet as tolerated 2. Upper endoscopy as needed 3. May benefit from lower endoscopy for GI bleed
--- NOTE | 2023-11-06 02:40 | PN ---
PROGRESS NOTE SUBJECTIVE: Marissa Wylie apparently did EGD on the patient. Possible GI bleeding. Stomach was entered. She found squamocolumnar junction, diaphragmatic hernia, Hill grade 1 lower esophageal valve, LA grade B erosive esophagitis. No active duodenitis. No bleeding. May benefit from lower endoscopy for GI bleed, not sure when she is going to do this. Will wait for recommendations. ERCP I do not know, awaiting for GI recommendations, but I do not know if blood pressure 130s to 140s over 60 to 80, O2 94% to 95% on room air, pulse 50 to 81, temp 99, blood pressure 120 to 130s over 60s to 70s. PLAN: Continue current treatment. Prognosis guarded. Ambulate as tolerated. Follow up as an outpatient if we can possibly discharge her. We will see what everybody says. See if GI is actually going to see her. Hemoglobin appears to be stable at 12.3. No signs of active bleeding. Possibly go home. The patient has improved. MMODL / IJN: [id number] /
[2023-11-06 09:11] VITALS: BP 154/74; PULSE 62; RESP 16; TEMP 98.3
[2023-11-06] MEDS: LACTULOSE 20 GM/30 ML CUP PO ONE (09:24)
[2023-11-06] MEDS: PEG 3350 (420 GM/BTL) + LYTES 4,000 ML BOTTLE PO ONE (09:24)
--- NOTE | 2023-11-06 14:02 | P.PN ---
Subjective Progress Note Date: 11/06/23 CHIEF COMPLAINT: Anemia HISTORY OF PRESENT ILLNESS: This is a 68-year-old female presents with gastrointestinal bleeding. She is status post EGD which revealed a diaphragmatic hiatal hernia and erosive esophagitis. Patient is tolerating diet. She is requesting discharge home and outpatient colonoscopy. Colonoscopy for today has been canceled. She does have epigastric pain but reports this is better than what she has had. She reports regular bowel movement today. PHYSICAL EXAM: VITAL SIGNS: Reviewed. GENERAL: Well-developed in no acute distress. HEENT: No sclera icterus. Extraocular movements grossly intact. Moist buccal mucosa. Head is atraumatic, normocephalic. ABDOMEN: Soft. Nondistended. Epigastric tenderness NEUROLOGIC: Alert and oriented. Cranial nerves II through XII grossly intact. ASSESSMENT: Presbyesophagus Bile reflux esophagitis Acute gastrointestinal bleeding Epigastric abdominal pain Anemia Underweight, BMI 15.7 PLAN: -Patient can be discharged from surgical standpoint -Recommend colonoscopy outpatient Physician Umbrella Cutter note has been reviewed by physician. Signing provider agrees with the documented findings, assessment, and plan of care. Objective - Vital Signs Vital signs: Vital Signs Temp 98.3 F 11/06/23 08:00 Pulse 62 11/06/23 08:00 Resp 16 11/06/23 08:00 BP 154/74 11/06/23 08:00 Pulse Ox 95 11/06/23 08:00 FiO2 Intake & Output 11/05/23 11/06/23 11/06/23 18:59 06:59 18:59 Intake Total 530 298 236 Balance 530 298 236 Weight 45.359 kg Intake: IV 50 Oral 480 298 236 Other: Voiding Method Bedside Commode Bedside Commode Bedside Commode # Voids 2 1 - Labs CBC & Chem 7: 11/04/23 06:35 11/04/23 06:35 Labs: Microbiology - Last 24 Hours (Table) 11/02/23 17:54 Urine Culture - Final Urine,Clean Catch Escherichia coli
--- NOTE | 2023-11-06 19:05 | P.DS ---
Providers Date of admission: 11/02/23 11:15 Expected date of discharge: 11/06/23 Attending physician: Isac Calvin Consults: 11/02/23 08:48 Consult Physician Routine Consulting Provider: Marissa Wylie Consult Reason/Comments: abdominal pain, ileus Do you want consulting provider notified?: Already Contacted 11/02/23 14:06 Consult Physician Routine Consulting Provider: Zoya Clark Consult Reason/Comments: dilated pancreatic duct Do you want consulting provider notified?: Yes Primary care physician: Isac Calvin [facility] Course: Hospital course: I am rounding for Dr. Isac Calvin. November 06, 2023: Patient feeling well. Keen to go home. Has some abdominal discomfort. Tolerating diet. She will follow-up with Dr. Wylie outpatient and also with GI outpatient. Placed on Protonix. She been off blood thinners for some time. Eating well. Had a bowel movement. Discussed with patient. EGD yesterday with Dr. Wylie showed erosive esophagitis. Discussed with patient. On examination: VITAL SIGNS: [98.3, 62, 16, 154 x 74, 95% room air] GENERAL APPEARANCE: Sitting at the edge of the bed, comfortable HEENT: Normal external appearance of nose and ear. Oral cavity normal EYES: Pupils equal. Conjunctiva normal. NECK: JVD not raised. Mass not palpable. RESPIRATORY: Respiratory effort normal. Lungs clear to auscultation. CARDIOVASCULAR: First and second sounds normal. No edema. ABDOMEN: Soft. Epigastric tenderness, no guarding rigidity liver and spleen not palpable. No mass palpable. PSYCHIATRY: Alert and oriented x3. Mood and affect normal. Assessment and plan: -Erosive esophagitis Protonix -COPD and a current smoker -Chronic nicotine dependence cigarette smoker -GERD Essential hypertension -Chronic pain syndrome MS Contin as needed [place] as needed Neurontin. -Acute UTI with cystitis Dr. Calvin called in to prescribe Keflex for 7 days -Primary osteoarthritis hiatal hernia Disposition: Home Patient Condition at Discharge: Fair Plan - Discharge Summary Discharge Rx Participant: No New Discharge Prescriptions: New Pantoprazole [Protonix] 40 mg PO DAILY #30 tab Cephalexin [Keflex] 500 mg PO Q8H #28 cap Continue Albuterol Inhaler [Ventolin Hfa Inhaler] 2 puff INHALATION RT-Q6H PRN PRN Reason: Shortness Of Breath Gabapentin 600 mg PO TID Morphine Sulfate ER [Ms Contin] 15 mg PO BID PRN PRN Reason: Pain HYDROcodone/APAP 5-325MG [[place] 5-325] 1 tab PO TID PRN PRN Reason: Pain Butalbit/Acetamin/Caff/Codeine [Fioricet-Cod 28-152-30-30 Cap] 1 cap PO Q6HR PRN PRN Reason: Migraine Headache Discharge Medication List Albuterol Inhaler [Ventolin Hfa Inhaler] 2 puff INHALATION RT-Q6H PRN 09/01/22 [History] Butalbit/Acetamin/Caff/Codeine [Fioricet-Cod 68-881-65-30 Cap] 1 cap PO Q6HR PRN 01/08/23 [History] Gabapentin 600 mg PO TID 01/08/23 [History] Morphine Sulfate ER [Ms Contin] 15 mg PO BID PRN 01/08/23 [History] HYDROcodone/APAP 5-325MG [[place] 5-325] 1 tab PO TID PRN 11/01/23 [History] Cephalexin [Keflex] 500 mg PO Q8H #28 cap 11/06/23 [Rx] Pantoprazole [Protonix] 40 mg PO DAILY #30 tab 11/06/23 [Rx] Follow up Appointment(s)/Referral(s): Isac Calvin MD [Primary Care Provider] - 1-2 days Marissa Wylie MD [STAFF PHYSICIAN] - As Needed Zoya Clark MD [STAFF PHYSICIAN] - 2 Weeks Patient Instructions/Handouts: Urinary Tract Infection in Women (DC), Ileus (DC) Discharge Disposition: HOME SELF-CARE
== END 2023-11-06 14:41 | disposition home or self-care (01) | DRG 391 ==
LOC: EC 12:23 → 6NMEDSUR 21:29 → OBSVTOIN 11-02 11:15
PROVIDERS: ADMIT Family Medicine; ATTEND Family Medicine
PROC: 0DJ08ZZ Inspection of Upper Intestinal Tract, Via Natural or Artificial Opening Endoscopic (ICD-10-PCS; principal; 2023-11-02)
DX: K22.89 Other specified disease of esophagus (principal); K21.01 Gastro-esophageal reflux disease with esophagitis, with bleeding; K22.11 Ulcer of esophagus with bleeding; I69.354 Hemiplegia and hemiparesis following cerebral infarction affecting left non-dominant side; K56.7 Ileus, unspecified; K86.1 Other chronic pancreatitis; Z68.1 Body mass index [BMI] 19.9 or less, adult; N30.00 Acute cystitis without hematuria; F17.210 Nicotine dependence, cigarettes, uncomplicated; G89.4 Chronic pain syndrome; D64.9 Anemia, unspecified; R63.6 Underweight; I10 Essential (primary) hypertension; B96.20 Unspecified Escherichia coli [E. coli] as the cause of diseases classified elsewhere; E87.5 Hyperkalemia; I65.29 Occlusion and stenosis of unspecified carotid artery; K83.8 Other specified diseases of biliary tract; J44.9 Chronic obstructive pulmonary disease, unspecified; M19.90 Unspecified osteoarthritis, unspecified site; K44.9 Diaphragmatic hernia without obstruction or gangrene; Z87.19 Personal history of other diseases of the digestive system; Z90.49 Acquired absence of other specified parts of digestive tract; W06.XXXA Fall from bed, initial encounter; Z79.899 Other long term (current) drug therapy; Z98.1 Arthrodesis status
CPT/HCPCS: 36415; 43235; 73502; 74177; 74181; 80053; 81001; 82150; 83605; 83690; 85025; 85027; 87077; 87086; 87186; 96360; 96361; 99285

== ENCOUNTER 2024-11-09 14:41 | Emergency (ER) | payer BC, OTHER ==
[2024-11-09] MEDS: KETOROLAC 15 MG/ML 1 ML VIAL IM STA (15:25)
[2024-11-09] MEDS: methylPREDNISolone SOD SUCCI 125 MG/2 ML VIAL IM ONE (15:25)
[2024-11-09] MEDS: ORPHENADRINE 30 MG/ML 2 ML VIAL IM STA (15:26)
[2024-11-09] MEDS: LIDOCAINE 4% PATCH TOPICAL ONE (15:26)
[2024-11-09] MEDS: HYDROmorphone 0.5 MG/0.5 ML SYRINGE IM STA (15:27)
--- NOTE | 2024-11-09 16:21 | US ---
EXAMINATION TYPE: US venous doppler duplex LE LT DATE OF EXAM: 11/09/2024 4:12 PM COMPARISON: NONE CLINICAL INDICATION: Female, 69 years old with history of s/o LLE pain/edema, positive Homans; left f oot pain x 1 week, Pain TECHNIQUE: The lower extremity deep venous system is examined utilizing real time linear array sonog rodrigo with graded compression, color doppler sonography, and spectral doppler. SIDE PERFORMED: Left FINDINGS: VESSELS IMAGED: Common Femoral Vein Deep Femoral Vein Greater Saphenous Vein * Femoral Vein Popliteal Vein Small Saphenous Vein * Proximal Calf Veins (* superficial vessels) Left Leg: Negative for DVT, Color Doppler imaging shows patency of the vessels. Spectral waveforms a re within normal limits. IMPRESSION: No ultrasound evidence for deep venous thrombosis. [facility], , 11/09/2024 4:18 PM
--- NOTE | 2024-11-09 16:23 | ED ---
Extremity Problem HPI - General Chief complaint: Extremity Problem,Nontraumatic Stated complaint: left leg pain Time Seen by Provider: 11/09/24 14:50 Source: patient Mode of arrival: wheelchair Limitations: no limitations - History of Present Illness Initial comments: This is a 69-year-old female with history of CVA and vertebral fracture presenting with left lower extremity pain and swelling (8/10) x 7 days. Patient states most pain is centralized to the dorsal aspect of her foot. Endorses upcoming appointment with Dr. Vieyra 7 in December. Endorses use of Osgood with minimal relief. Denies saddle paresthesia, urinary incontinence/retention. MD Complaint: extremity pain, extremity swelling Onset/Timin -: days(s) Location: left, lower extremity History of Same: Yes (History of LLE radiculopathy) Radiation: proximal Severity scale (1-10): 8 Improves with: immobilization Worsens with: weight bearing, palpation Associated Symptoms: denies other symptoms - Related Data Home Medications Medication Instructions Recorded Confirmed Albuterol Inhaler [Ventolin Hfa 2 puff INHALATION RT-Q6H PRN 09/01/22 11/01/23 Inhaler] Butalbit/Acetamin/Caff/Codeine 1 cap PO Q6HR PRN 01/08/23 11/01/23 [Fioricet-Cod 23-540-00-30 Cap] Gabapentin 600 mg PO TID 01/08/23 11/01/23 Morphine Sulfate ER [Ms Contin] 15 mg PO BID PRN 01/08/23 11/01/23 HYDROcodone/APAP 5-325MG [Osgood 1 tab PO TID PRN 11/01/23 11/01/23 5-325] Previous Rx's Medication Instructions Recorded Cephalexin [Keflex] 500 mg PO Q8H #28 cap 11/06/23 Pantoprazole [Protonix] 40 mg PO DAILY #30 tab 11/06/23 Allergies Allergy/AdvReac Type Severity Reaction Status Date / Time No Known Allergies Allergy Verified 11/01/23 20:22 Review of Systems ROS Statement: Those systems with pertinent positive or pertinent negative responses have been documented in the HPI. ROS Other: All systems not noted in ROS Statement are negative. Past Medical History Past Medical History: COPD, CVA/TIA, GERD/Reflux, Hypertension, Osteoarthritis (OA) Additional Past Medical History / Comment(s): migraines, stroke Sep 2019-left side weakness, hiatal hernia, diarrhea, no longer needing BP med, chronic pancreatitis, hx anemia, weight loss recently, unsure why-HAS GAINED 10 LBS History of Any Multi-Drug Resistant Organisms: None Reported Past Surgical History: Appendectomy, Back Surgery, Bowel Resection, Cholecystectomy, Hernia Repair, Orthopedic Surgery, Tonsillectomy Additional Past Surgical History / Comment(s): Umbilical hernia repair (10/20/21), Pancreatic stents-since removed, 6 back surgeries with 2 fusions, right fallopian tube due to ectopic , EGD/colonoscopy, ORIF right femur alice inserted d/t fracture, BACK SURGERY-REMOVED OLD HARDWARE AND PUT IN NEW HARDWARE 09/28/20, bowel rupture surgery, right carotid endarterectomy Past Anesthesia/Blood Transfusion Reactions: No Reported Reaction Additional Past Anesthesia/Blood Transfusion Reaction / Comment(s): DIFF IV STARTS. Pt has received blood in past without reaction. Past Psychological History: No Psychological Hx Reported Smoking Status: Current every day smoker Past Alcohol Use History: None Reported Past Drug Use History: None Reported - Past Family History Father Family Medical History: Cancer Mother Family Medical History: Cancer, CVA/TIA Additional Family Medical History / Comment(s): Breast and colon cancer. General Exam Limitations: no limitations General appearance: alert, in no apparent distress Head exam: Present: atraumatic, normocephalic, normal inspection Eye exam: Present: normal appearance, PERRL, EOMI. Absent: scleral icterus, conjunctival injection, periorbital swelling ENT exam: Present: normal exam, mucous membranes moist Neck exam: Present: normal inspection. Absent: tenderness, meningismus, lymphadenopathy Respiratory exam: Present: normal lung sounds bilaterally. Absent: respiratory distress, wheezes, rales, rhonchi, stridor Cardiovascular Exam: Present: regular rate, normal rhythm, normal heart sounds. Absent: systolic murmur, diastolic murmur, rubs, gallop, clicks GI/Abdominal exam: Present: soft, normal bowel sounds. Absent: distended, tenderness, guarding, rebound, rigid Extremities exam: Present: normal inspection, full ROM, normal capillary refill. Absent: tenderness, pedal edema, joint swelling, calf tenderness Left Hip exam: Present: normal inspection, full ROM Upper Leg exam: Present: normal inspection, full ROM Knee exam: Present: normal inspection, full ROM Lower Leg exam: Present: full ROM, tenderness, Homans' sign. Absent: swelling, ecchymosis, deformity, crepitus Ankle exam: Present: normal inspection, full ROM Foot/Toe exam: Present: tenderness (Dorsal foot tenderness), erythema. Absent: swelling, abrasion, laceration, ecchymosis, deformity, crepitus, calcaneal tenderness, tenderness at base of 5th metatarsal Neurovascular tendon exam: Present: no vascular compromise (Dorsalis pedialis pulse +2) Back exam: Present: normal inspection, paraspinal tenderness (Positive bilateral T10 paraspinal tenderness with muscle spasm and sacral tenderness and muscle spasm), other (Surgical scar extending along entirety of the thoracic and lumbar spine noted). Absent: vertebral tenderness Neurological exam: Present: alert, oriented X3, CN II-XII intact Psychiatric exam: Present: normal affect, normal mood Skin exam: Present: warm, dry, intact, normal color. Absent: rash Course Vital Signs 11/09/24 11/09/24 14:48 17:16 Temperature 98.0 F 98.2 F Pulse Rate 86 80 Respiratory 18 17 Rate Blood Pressure 167/90 148/67 O2 Sat by Pulse 97 98 Oximetry Medical Decision Making - Medical Decision Making Was pt. sent in by a medical professional or institution ([facility]as, SENIOR CATERING SALES MANAGER, urgent care, hospital, or intermediate...) When possible be specific @ -No Did you speak to anyone other than the patient for history (EMS, parent, family, police, friend...)? What history was obtained from this source @ -No Did you review nursing and triage notes (agree or disagree)? Why? @ -I reviewed and agree with nursing and triage notes Were old charts reviewed (outside hosp., previous admission, EMS record, old EKG, old radiological studies, urgent care reports/EKG's, intermediate records)? Report findings @ -No old charts were reviewed Differential Diagnosis (chest pain, altered mental status, abdominal pain women, abdominal pain men, vaginal bleeding, weakness, fever, dyspnea, syncope, headache, dizziness, GI bleed, back pain, seizure, CVA, palpatations, mental health, musculoskeletal)? @ -Differential Musculoskeletal Muscular strain, contusion, ligament sprain, fracture, arthritis, septic arthritis, bursitis, cellulitis, muscle spasm, nerve compression, DVT, arterial occlusion, herpes zoster, electrolyte abnormality, tumor.... This is not meant to be in all inclusive list differential Back Pain: Strain, zoster, cauda equina syndrome, epidural abscess, vertebral osteomyelitis, discitis, fracture, subluxation, disc herniation, DJD, spinal stenosis, dissection, AAA, pancreatitis, peptic ulcer disease, pyelonephritis, kidney stone, this is not meant to be an all-inclusive list. EKG interpreted by me (3pts min.). @ -Not done X-rays interpreted by me (1pt min.). @ -None done CT interpreted by me (1pt min.). @ -None done U/S interpreted by me (1pt. min.). @ -LLE Doppler ultrasound negative for DVT. What testing was considered but not performed or refused? (CT, X-rays, U/S, labs)? Why? @ -None What meds were considered but not given or refused? Why? @ -None Did you discuss the management of the patient with other professionals (professionals i.e. , PA, SENIOR CATERING SALES MANAGER, lab, RT, psych nurse, healthcare social worker, console manager, te acher, radio electronics officer, caser up)? Give summary @ -No Was smoking cessation discussed for >3mins.? @ -No Was critical care preformed (if so, how long)? @ -No Were there social determinants of health that impacted care today? How? (Homelessness, low income, unemployed, alcoholism, drug addiction, transportation, low edu. Level, literacy, decrease access to med. care, shelter, rehab)? @ -No Was there de-escalation of care discussed even if they declined (Discuss DNR or withdrawal of care, Hospice)? DNR status @ -No What co-morbidities impacted this encounter? (DM, HTN, Smoking, COPD, CAD, Cancer, CVA, ARF, Chemo, Hep., AIDS, mental health diagnosis, sleep apnea, morbid obesity)? @ -None Was patient admitted / discharged? Hospital course, mention meds given and route, prescriptions, significant lab abnormalities, going to OR and other pertinent info. @ -LLE Doppler ultrasound negative for DVT. Patient initially provided Toradol, Solu-Medrol, Norflex and Dilaudid. Also provided lidocaine patch for lower back. Patient notes some relief following treatment. Patient discharged with T3 starter pack and advised follow-up with orthopedics for ongoing management of lower back pain and radiculopathy. Alternate Tylenol/Motrin every 4 hours for any ongoing pain along with warm compresses to lower back up to 4 times daily. Discussed patient with Dr. Enciso. Undiagnosed new problem with uncertain prognosis? @ -No Drug Therapy requiring intensive monitoring for toxicity (Heparin, Nitro, Insulin, Cardizem)? @ -No Were any procedures done? @ -No Diagnosis/symptom? @ -Sciatica with left-sided radiculopathy Acute, or Chronic, or Acute on Chronic? @ -Acute Uncomplicated (without systemic symptoms) or Complicated (systemic symptoms)? @ -Uncomplicated Side effects of treatment? @ -No Exacerbation, Progression, or Severe Exacerbation? @ -Exacerbation Poses a threat to life or bodily function? How? (Chest pain, [place], [place], pneumonia, PE, COPD, DKA, ARF, appy, cholecystitis, CVA, Diverticulitis, Homicidal, Suicidal, threat to staff... and all critical care pts) @ -No Disposition Clinical Impression: Sciatica of left side Disposition: HOME SELF-CARE Condition: Good Instructions (If sedation given, give patient instructions): Sciatica (ED), Lumbar Radiculopathy (ED) Additional Instructions: Follow-up with PCP/pain management for ongoing management of back pain Is patient prescribed a controlled substance at d/c from ED?: No Referrals: Isac Calvin MD [Primary Care Provider] - 1-2 days Georgina Lucio DO [Doctor of Osteopathic Medicine] - 1-2 days Adryan Charlton MD [STAFF PHYSICIAN] - 1-2 days Time of Disposition: 16:35
[2024-11-09] MEDS: ACET/COD 300 MG/30 MG STARTER PACK 6 TAB BTL PO STA (16:45)
[2024-11-09 17:17] VITALS: BP 148/67; PULSE 80; RESP 17; TEMP 98.2
== END 2024-11-09 17:15 | disposition home or self-care (01) ==
LOC: EC 14:41
DX: M54.32 Sciatica, left side (principal); Z86.73 Personal history of transient ischemic attack (TIA), and cerebral infarction without residual deficits; F17.200 Nicotine dependence, unspecified, uncomplicated
CPT/HCPCS: 93971; 99284; 96372; J2360; J1885; J1171; J2919